=== PATIENT | male | born 1990 | race American Indian/Alaskan Native ===

== ENCOUNTER 2020-01-11 06:59 | Emergency (ER) | payer SELFPAY ==
[2020-01-11 08:25] LABS: Basophils % (Auto) 0.6 % (0.0-1.8); Eosinophils # (Auto) 0.2 K/mm3 (0.0-0.4); Eosinophils % (Auto) 2.1 % (0.0-4.3); Hematocrit 40.9 % (35.5-45.6); Hemoglobin 13.4 gm/dl (11.8-15.2); Lymphocytes # (Auto) 2.5 K/mm3 (1.2-5.4); Lymphocytes % (Auto) 29.8 % (13.4-35.0); Mean Corpuscular HGB Conc 33 % (32-34); Mean Corpuscular Volume 90 fl (84-94); Monocytes # (Auto) 0.5 K/mm3 (0.0-0.8); Monocytes % (Auto) 6.3 % (0.0-7.3); Platelet Count 257 K/mm3 (140-440); Red Blood Count 4.56 M/mm3 (3.65-5.03); Red Cell Distribution Width 13.9 % (13.2-15.2)
[2020-01-11 08:49] LABS: Alanine Aminotransferase 20 units/L (7-56); Albumin 4.7 g/dL (3.9-5); BUN/Creatinine Ratio 17; Blood Urea Nitrogen 17 mg/dL (9-20); Calcium 9.7 mg/dL (8.4-10.2); Hemolysis Index 8
[2020-01-11 10:00] VITALS: BP 133/84
[2020-01-11] MEDS ORDERED: ACETAMINOPHEN 325 MG TAB PO ONE (10:02)
--- NOTE | 2020-01-11 10:11 | Emergency Department Report ---
ED General Adult HPI - General Chief complaint: Headache Stated complaint: SEVERE HEADACHES Time Seen by Provider: 01/11/20 08:50 Source: patient Mode of arrival: Ambulatory Limitations: No Limitations - History of Present Illness Initial comments: 29-year-old -[place] male patient presents with complaints of headache starting this morning. Patient reports that he has had 2 similar headaches that occur only upon waking and resolve throughout the day without treatment. He rates his current headache as a 3/10 in severity. He denies any head traumas, vision changes, photophobia, nausea/vomiting, dizziness, numbness/tingling/weakness in his limbs, difficulty with speech, confusion, or memory loss. Patient also denies any prior medical history. Blood pressure is noted to be elevated, however patient denies any known history of hypertension. - Related Data Previous Rx's Medication Instructions Recorded Last Taken Type Sulfamethoxazole/Trimethoprim 1 each PO BID #14 tablet 03/14/16 Unknown Rx [Bactrim DS TAB] Clotrimazole/Betamethasone 1 applicatio TP BID #1 tube 03/15/16 Unknown Rx Acetaminophen [Tylenol] 650 mg PO Q6H PRN #20 capsule 01/11/20 Unknown Rx Allergies Allergy/AdvReac Type Severity Reaction Status Date / Time No Known Allergies Allergy Verified 03/14/16 21:23 ED Review of Systems ROS: Stated complaint: SEVERE HEADACHES Other details as noted in HPI Constitutional: denies: chills, fever Eyes: denies: vision change Respiratory: denies: cough, shortness of breath Cardiovascular: denies: chest pain Gastrointestinal: denies: nausea, vomiting Musculoskeletal: denies: back pain Neurological: headache. denies: weakness, numbness, paresthesias, confusion, abnormal gait, vertigo Hematological/Lymphatic: denies: swollen glands ED Past Medical Hx - Past Medical History Previous Medical History?: No - Surgical History Past Surgical History?: No - Social History Smoking Status: Never Smoker - Medications Home Medications: Home Medications Medication Instructions Recorded Confirmed Last Taken Type Sulfamethoxazole/Trimethoprim 1 each PO BID #14 tablet 03/14/16 Unknown Rx [Bactrim DS TAB] Clotrimazole/Betamethasone 1 applicatio TP BID #1 tube 03/15/16 Unknown Rx Acetaminophen [Tylenol] 650 mg PO Q6H PRN #20 capsule 01/11/20 Unknown Rx ED Physical Exam - General Limitations: No Limitations General appearance: alert, in no apparent distress, obese - Head Head exam: Present: atraumatic, normocephalic - Eye Eye exam: Present: normal appearance, PERRL, EOMI. Absent: scleral icterus - ENT ENT exam: Present: mucous membranes moist - Neck Neck exam: Present: normal inspection, full ROM - Respiratory Respiratory exam: Present: normal lung sounds bilaterally. Absent: respiratory distress - Cardiovascular Cardiovascular Exam: Present: regular rate, normal rhythm. Absent: systolic murmur, diastolic murmur, rubs, gallop - Extremities Exam Extremities exam: Present: normal inspection, full ROM - Back Exam Back exam: Present: normal inspection - Neurological Exam Neurological exam: Present: alert, oriented X3, normal gait. Absent: motor sensory deficit - Expanded Neurological Exam Expanded Cerebellar function: Finger to Nose: Normal, Heel to Olea: Normal, Romberg: Normal Sensory exam: Upper Extremity Light Touch: Normal, Lower Extremity Light Touch: Normal Motor strength exam: RUE: 5, LUE: 5, RLE: 5, LLE: 5 - Psychiatric Psychiatric exam: Present: normal affect, normal mood - Skin Skin exam: Present: warm, dry, intact, normal color. Absent: rash ED Course Vital Signs 01/11/20 01/11/20 07:23 09:59 Temperature 98.2 F Pulse Rate 84 Respiratory 18 Rate Blood Pressure 150/89 Blood Pressure 133/84 [Right] O2 Sat by Pulse 95 Oximetry ED Medical Decision Making - Lab Data Result diagrams: 01/11/20 08:13 01/11/20 08:13 Lab Results 01/11/20 01/11/20 Range/Units 08:13 08:13 WBC 8.4 (4.5-11.0) K/mm3 RBC 4.56 (3.65-5.03) M/mm3 Hgb 13.4 (11.8-15.2) gm/dl Hct 40.9 (35.5-45.6) % MCV 90 (84-94) fl MCH 29 (28-32) pg MCHC 33 (32-34) % RDW 13.9 (13.2-15.2) % Plt Count 257 (140-440) K/mm3 Lymph % (Auto) 29.8 (13.4-35.0) % [place] % (Auto) 6.3 (0.0-7.3) % Eos % (Auto) 2.1 (0.0-4.3) % Baso % (Auto) 0.6 (0.0-1.8) % Lymph # 2.5 (1.2-5.4) K/mm3 [place] # 0.5 (0.0-0.8) K/mm3 Eos # 0.2 (0.0-0.4) K/mm3 Baso # 0.0 (0.0-0.1) K/mm3 Seg Neutrophils % 61.2 (40.0-70.0) % Seg Neutrophils # 5.2 (1.8-7.7) K/mm3 Sodium 142 (137-145) mmol/L Potassium 4.5 (3.6-5.0) mmol/L Chloride 105.7 (98-107) mmol/L Carbon Dioxide 26 (22-30) mmol/L Anion Gap 15 mmol/L BUN 17 (9-20) mg/dL Creatinine 1.0 (0.8-1.3) mg/dL Estimated GFR > 60 ml/min BUN/Creatinine Ratio 17 % Glucose 127 H (75-100) mg/dL Calcium 9.7 (8.4-10.2) mg/dL Total Bilirubin 0.30 (0.1-1.2) mg/dL AST 19 (5-40) units/L ALT 20 (7-56) units/L Alkaline Phosphatase 69 (35-129) units/L Total Protein 8.0 (6.3-8.2) g/dL Albumin 4.7 (3.9-5) g/dL Albumin/Globulin Ratio 1.4 % - Medical Decision Making Patient here with acute headache this morning. Patient was concerned due to having intermittent headaches this month and denies previous history of headaches or migraines. He denies any red flag symptoms and his neuro exam is normal. CBC and CMP are normal. Blood pressure mildly elevated, patient states he has family history of hypertension. Current headache is a 3/10 in severity. Tylenol given. He is well-appearing and stable for discharge home. Recommend follow-up with primary care in 2 days for blood pressure recheck and further evaluation. Strict return precautions were discussed in detail with patient who verbalized understanding. Critical care attestation.: If time is entered above; I have spent that time in minutes in the direct care of this critically ill patient, excluding procedure time. ED Disposition Clinical Impression: Intermittent headache, Elevated blood pressure reading Disposition: TO HOME OR SELFCARE Is pt being admited?: No Condition: Stable Instructions: Acute Headache (ED) Prescriptions: Acetaminophen [Tylenol] 650 mg PO Q6H PRN #20 capsule PRN Reason: Headache Referrals: [facility] [Provider Group] - 3-5 Days
== END 2020-01-11 10:26 | disposition home or self-care (01) ==
LOC: ED 06:59
DX: R03.0 Elevated blood-pressure reading, without diagnosis of hypertension (principal); R51 Headache; Z79.899 Other long term (current) drug therapy
CPT/HCPCS: 36415; 80053; 85025

== ENCOUNTER 2020-08-10 08:03 | Inpatient (IN) | payer OTHER, SELFPAY ==
[2020-08-10] MEDS ORDERED: SODIUM CHLORIDE 0.9% 500 ML 500 ML IV ONE (08:14)
[2020-08-10] MEDS ORDERED: SODIUM CHLORIDE 0.9% 1000 ML 1,000 ML IV ONE (08:45)
--- NOTE | 2020-08-10 08:45 | XRay Report ---
CHEST 1 VIEW 08/10/2020 8:15 AM INDICATION / CLINICAL INFORMATION: possible Sepsis. COMPARISON: None available. FINDINGS: SUPPORT DEVICES: None. HEART / MEDIASTINUM: No significant abnormality. LUNGS / PLEURA: There are patchy bilateral pulmonary opacities. No pneumothorax. ADDITIONAL FINDINGS: No significant additional findings. IMPRESSION: 1. Patchy bilateral pulmonary opacities likely reflecting multifocal pneumonia. Viral pneumonia would be a possibility. Signer Name: Babak Singer MD Signed: 08/10/2020 8:40 AM Workstation Name: [email or web address]
[2020-08-10] MEDS ORDERED: KETOROLAC 30 MG/1 ML INJ IV ONE (08:46)
--- NOTE | 2020-08-10 08:47 | Emergency Department Report ---
ED General Adult HPI - General Chief complaint: Headache Stated complaint: TENSION HEADACHE Time Seen by Provider: 08/10/20 08:44 Source: patient Mode of arrival: Ambulatory Limitations: No Limitations - History of Present Illness Initial comments: Patient is a 22-year-old male presents emergency department for evaluation of intermittent mild dull frontal headache x3 days. Patient presents hypoxic, denies shortness of breath or cough. Patient denies history of asthma or COPD, denies smoking history. Patient denies abdominal pain, denies nausea vomiting diarrhea, denies chest pain, denies dysuria, denies rash. Patient denies neck pain or stiffness. - Related Data Previous Rx's Medication Instructions Recorded Last Taken Type Azithromycin [Zithromax TAB] 250 mg PO DAILY 4 Days #4 tab 08/10/20 Unknown Rx Cholecalciferol (Vitamin D3) 5,000 unit PO DAILY #30 capsule 08/10/20 Unknown Rx [Vitamin D3 5,000 UNIT] predniSONE [Deltasone] 40 mg PO QDAY #8 tab 08/10/20 Unknown Rx Allergies Allergy/AdvReac Type Severity Reaction Status Date / Time No Known Allergies Allergy Verified 08/10/20 08:11 ED Review of Systems ROS: Stated complaint: TENSION HEADACHE Other details as noted in HPI Comment: All other systems reviewed and negative ED Past Medical Hx - Past Medical History Previous Medical History?: No - Surgical History Past Surgical History?: No - Social History Smoking Status: Never Smoker Substance Use Type: None - Medications Home Medications: Home Medications Medication Instructions Recorded Confirmed Last Taken Type Azithromycin [Zithromax TAB] 250 mg PO DAILY 4 Days #4 tab 08/10/20 Unknown Rx Cholecalciferol (Vitamin D3) 5,000 unit PO DAILY #30 capsule 08/10/20 Unknown Rx [Vitamin D3 5,000 UNIT] predniSONE [Deltasone] 40 mg PO QDAY #8 tab 08/10/20 Unknown Rx ED Physical Exam - General Limitations: No Limitations General appearance: alert, in no apparent distress - Head Head exam: Present: atraumatic, normocephalic - Eye Eye exam: Present: normal appearance - ENT ENT exam: Present: mucous membranes moist - Neck Neck exam: Present: normal inspection - Respiratory Respiratory exam: Present: wheezes, rhonchi - Cardiovascular Cardiovascular Exam: Present: regular rate, normal rhythm - GI/Abdominal GI/Abdominal exam: Present: soft, normal bowel sounds - Rectal Rectal exam: Present: deferred - Extremities Exam Extremities exam: Present: normal inspection - Back Exam Back exam: Present: normal inspection - Neurological Exam Neurological exam: Present: alert, oriented X3 - Psychiatric Psychiatric exam: Present: normal affect, normal mood - Skin Skin exam: Present: warm, dry, intact, normal color. Absent: rash ED Course Vital Signs 08/10/20 08/10/20 08/10/20 08:14 08:38 08:40 Temperature 103.0 F H 102.9 F H Pulse Rate 110 H 103 H Pulse Rate [ Bilateral Throughout] Respiratory 24 18 Rate Respiratory Rate [Bilateral Throughout] Blood Pressure 142/81 Blood Pressure 106/65 [right arm] O2 Sat by Pulse 82 L 81 L 96 Oximetry 08/10/20 08/10/20 08/10/20 08:46 08:57 09:00 Temperature Pulse Rate 102 H 100 H Pulse Rate [ Bilateral Throughout] Respiratory 12 18 13 Rate Respiratory Rate [Bilateral Throughout] Blood Pressure 106/65 106/65 Blood Pressure [right arm] O2 Sat by Pulse 93 96 96 Oximetry 08/10/20 08/10/20 08/10/20 09:16 09:30 09:46 Temperature Pulse Rate 101 H 98 H 97 H Pulse Rate [ Bilateral Throughout] Respiratory 12 15 14 Rate Respiratory Rate [Bilateral Throughout] Blood Pressure 99/56 106/65 106/65 Blood Pressure [right arm] O2 Sat by Pulse 97 97 97 Oximetry 08/10/20 08/10/20 08/10/20 10:00 10:15 10:16 Temperature 100.2 F H Pulse Rate 97 H 92 H 93 H Pulse Rate [ Bilateral Throughout] Respiratory 16 24 15 Rate Respiratory Rate [Bilateral Throughout] Blood Pressure 106/65 106/65 Blood Pressure 122/80 [right arm] O2 Sat by Pulse 96 97 98 Oximetry 08/10/20 08/10/20 08/10/20 10:30 10:46 11:00 Temperature Pulse Rate 96 H 91 H 96 H Pulse Rate [ Bilateral Throughout] Respiratory 13 32 H 15 Rate Respiratory Rate [Bilateral Throughout] Blood Pressure 99/56 122/80 122/80 Blood Pressure [right arm] O2 Sat by Pulse 96 99 86 Oximetry 08/10/20 08/10/20 11:16 11:29 Temperature Pulse Rate 97 H Pulse Rate [ 89 Bilateral Throughout] Respiratory 25 H Rate Respiratory 22 Rate [Bilateral Throughout] Blood Pressure 106/73 Blood Pressure [right arm] O2 Sat by Pulse 92 Oximetry - Reevaluation(s) Reevaluation #1: 08/10/20 11:47 Patient initially treated with IV normal saline, IV Rocephin, IV azithromycin, IV Toradol, DuoNeb's x3, Solu-Medrol 125 mg IV x1. Following intervention, patient remains hypoxic on room air at around 80%. Patient saturating 95 to 97% on 3 L O2 nasal cannula, admitted. 08/10/20 11:48 ED Medical Decision Making - Lab Data Result diagrams: 08/10/20 08:29 08/10/20 08:29 Labs 08/10/20 08/10/20 08/10/20 08:29 08:29 08:29 WBC 6.2 RBC 4.54 Hgb 13.1 Hct 40.2 MCV 89 MCH 29 MCHC 33 RDW 13.8 Plt Count 181 Lymph % (Auto) 34.6 [place] % (Auto) 8.4 H Eos % (Auto) 0.0 Baso % (Auto) 0.3 Lymph # (Auto) 2.1 [place] # (Auto) 0.5 Eos # (Auto) 0.0 Baso # (Auto) 0.0 Seg Neutrophils % 56.7 Seg Neutrophils # 3.5 PT 12.6 INR 0.96 VBG pH Sodium 138 Potassium 4.6 Chloride 101.6 Carbon Dioxide 28 Anion Gap 13 BUN 18 Creatinine 1.3 Estimated GFR > 60 BUN/Creatinine Ratio 14 Glucose 132 H Lactic Acid Calcium 8.4 Total Bilirubin 0.30 AST 29 ALT 16 Alkaline Phosphatase 53 Total Protein 7.4 Albumin 3.9 Albumin/Globulin Ratio 1.1 08/10/20 08/10/20 08:29 08:29 WBC RBC Hgb Hct MCV MCH MCHC RDW Plt Count Lymph % (Auto) [place] % (Auto) Eos % (Auto) Baso % (Auto) Lymph # (Auto) [place] # (Auto) Eos # (Auto) Baso # (Auto) Seg Neutrophils % Seg Neutrophils # PT INR VBG pH 7.303 L Sodium Potassium Chloride Carbon Dioxide Anion Gap BUN Creatinine Estimated GFR BUN/Creatinine Ratio Glucose Lactic Acid 1.40 Calcium Total Bilirubin AST ALT Alkaline Phosphatase Total Protein Albumin Albumin/Globulin Ratio Vital Signs 08/10/20 08/10/20 08/10/20 08:14 08:38 08:40 Temperature 103.0 F H 102.9 F H Pulse Rate 110 H 103 H Pulse Rate [ Bilateral Throughout] Respiratory 24 18 Rate Respiratory Rate [Bilateral Throughout] Blood Pressure 142/81 Blood Pressure 106/65 [right arm] O2 Sat by Pulse 82 L 81 L 96 Oximetry 08/10/20 08/10/20 08/10/20 08:46 08:57 09:00 Temperature Pulse Rate 102 H 100 H Pulse Rate [ Bilateral Throughout] Respiratory 12 18 13 Rate Respiratory Rate [Bilateral Throughout] Blood Pressure 106/65 106/65 Blood Pressure [right arm] O2 Sat by Pulse 93 96 96 Oximetry 08/10/20 08/10/20 08/10/20 09:16 09:30 09:46 Temperature Pulse Rate 101 H 98 H 97 H Pulse Rate [ Bilateral Throughout] Respiratory 12 15 14 Rate Respiratory Rate [Bilateral Throughout] Blood Pressure 99/56 106/65 106/65 Blood Pressure [right arm] O2 Sat by Pulse 97 97 97 Oximetry 08/10/20 08/10/20 08/10/20 10:00 10:15 10:16 Temperature 100.2 F H Pulse Rate 97 H 92 H 93 H Pulse Rate [ Bilateral Throughout] Respiratory 16 24 15 Rate Respiratory Rate [Bilateral Throughout] Blood Pressure 106/65 106/65 Blood Pressure 122/80 [right arm] O2 Sat by Pulse 96 97 98 Oximetry 08/10/20 08/10/20 08/10/20 10:30 10:46 11:00 Temperature Pulse Rate 96 H 91 H 96 H Pulse Rate [ Bilateral Throughout] Respiratory 13 32 H 15 Rate Respiratory Rate [Bilateral Throughout] Blood Pressure 99/56 122/80 122/80 Blood Pressure [right arm] O2 Sat by Pulse 96 99 86 Oximetry 08/10/20 08/10/20 11:16 11:29 Temperature Pulse Rate 97 H Pulse Rate [ 89 Bilateral Throughout] Respiratory 25 H Rate Respiratory 22 Rate [Bilateral Throughout] Blood Pressure 106/73 Blood Pressure [right arm] O2 Sat by Pulse 92 Oximetry - Radiology Data Radiology results: report reviewed Chest x-ray: Pneumonia per radiology Critical care attestation.: If time is entered above; I have spent that time in minutes in the direct care of this critically ill patient, excluding procedure time. ED Disposition Clinical Impression: Pneumonia Disposition: OP ADMIT IP TO THIS HOSP Is pt being admited?: Yes Condition: Stable Instructions: Bacterial Pneumonia (ED) Additional Instructions: Follow-up with primary care doctor in 1 to 2 days for reevaluation. Please note you may have COVID-19 which is a transmissible disease. Return to the emergency department for shortness of breath or worsening symptoms. Prescriptions: predniSONE [Deltasone] 40 mg PO QDAY #8 tab Cholecalciferol (Vitamin D3) [Vitamin D3 5,000 UNIT] 5,000 unit PO DAILY #30 cap [place] Azithromycin [Zithromax TAB] 250 mg PO DAILY 4 Days #4 tab Referrals: PRIMARY CARE, [Primary Care Provider] - 3-5 Days
[2020-08-10 08:50] LABS: Basophils % (Auto) 0.3 % (0.0-1.8); Hematocrit 40.2 % (35.5-45.6); Hemoglobin 13.1 gm/dl (11.8-15.2); Lymphocytes # (Auto) 2.1 K/mm3 (1.2-5.4); Lymphocytes % (Auto) 34.6 % (13.4-35.0); Mean Corpuscular HGB Conc 33 % (32-34); Mean Corpuscular Volume 89 fl (84-94); Monocytes # (Auto) 0.5 K/mm3 (0.0-0.8); Monocytes % (Auto) 8.4 % (0.0-7.3); Platelet Count 181 K/mm3 (140-440); Red Blood Count 4.54 M/mm3 (3.65-5.03); Red Cell Distribution Width 13.8 % (13.2-15.2)
[2020-08-10 08:59] LABS: INR 0.96 (0.87-1.13)
[2020-08-10 09:48] LABS: Alanine Aminotransferase 16 units/L (7-56); Albumin 3.9 g/dL (3.9-5); BUN/Creatinine Ratio 14; Blood Urea Nitrogen 18 mg/dL (9-20); Calcium 8.4 mg/dL (8.4-10.2); Hemolysis Index 3
[2020-08-10] MEDS ORDERED: AZITHROMYCIN/NS 500 MG/250 ML 500 MG/250 ML BAG IV ONE (09:51)
[2020-08-10] MEDS ORDERED: cefTRIAXone/NS 1 GM/50 ML 1 GM/50 ML BAG IV ONE (09:51)
[2020-08-10] MEDS ORDERED: methylPREDNISolone Sod Succinate 125 MG/2 ML INJ IV ONE (09:53)
[2020-08-10] MEDS: IPRATROPIUM/ALBUTEROL SULFATE 3 ML AMPUL.NEB IH SCH ×3 (10:35→10:42)
--- NOTE | 2020-08-10 11:26 | Electrocardiograph Report ---
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
[2020-08-10] MEDS ORDERED: SODIUM CHLORIDE 0.9% IRR 500 ML BOTTLE IR ONE (11:47)
--- NOTE | 2020-08-10 23:47 | History and Physical Report ---
History of Present Illness Date of examination: 08/10/20 Date of admission: 08/10/20 11:23 Chief complaint: Intermittent headache for 3 days History of present illness: 22-year-old million with morbid obesity weighing about 310 pounds comes in for intermittent frontal headache for 3 days. In the emergency room patient was very hypoxic but denies shortness of breath or cough. No muscle aches. His oxygen levels are mid 80s. Denies smoking. Works in the [employer] is [employer] and is exposed to a lot of many people but wears mask. No anosmia no abuse in. No muscle aches. Only headaches. Work-up in the emergency room bilateral patchy opacities in the lungs and hypoxia-hence being admitted for bilateral pneumonia and possible Covid pneumonia No significant past medical history - Past Medical History Previous Medical History?: No - Surgical History Past Surgical History?: No - Social History Smoking Status: Never Smoker Substance Use Type: None - Medications Home Medications: Home Medications Medication Instructions Recorded Confirmed Last Taken Type Azithromycin [Zithromax TAB] 250 mg PO DAILY 4 Days #4 tab 08/10/20 Unknown Rx Cholecalciferol (Vitamin D3) 5,000 unit PO DAILY #30 capsule 08/10/20 Unknown Rx [Vitamin D3 5,000 UNIT] predniSONE [Deltasone] 40 mg PO QDAY #8 tab 08/10/20 Unknown Rx Review of Systems ROS: Stated complaint: TENSION HEADACHE Other details as noted in HPI Comment: All other systems reviewed and negative Medications and Allergies Allergies Allergy/AdvReac Type Severity Reaction Status Date / Time No Known Allergies Allergy Verified 08/10/20 08:11 Home Medications Medication Instructions Recorded Confirmed Last Taken Type Azithromycin [Zithromax TAB] 250 mg PO DAILY 4 Days #4 tab 08/10/20 Unknown Rx Cholecalciferol (Vitamin D3) 5,000 unit PO DAILY #30 capsule 08/10/20 Unknown Rx [Vitamin D3 5,000 UNIT] predniSONE [Deltasone] 40 mg PO QDAY #8 tab 08/10/20 Unknown Rx Exam - Constitutional Vitals: Temp Pulse Resp BP Pulse Ox 100.1 F H 96 H 20 128/56 82 L 08/10/20 13:51 08/10/20 13:51 08/10/20 18:10 08/10/20 14:40 08/10/20 14:32 General appearance: Present: no acute distress, well-nourished - EENT Eyes: Present: PERRL ENT: hearing intact, clear oral mucosa - Neck Neck: Present: supple, normal ROM - Respiratory Respiratory effort: normal Respiratory: bilateral: CTA, rhonchi (Scattered) - Cardiovascular Heart rate: 78 Rhythm: regular Heart Sounds: Present: S1 & S2. Absent: rub, click - Extremities Extremities: pulses symmetrical, No edema Peripheral Pulses: within normal limits - Abdominal General gastrointestinal: Present: soft, non-tender, non-distended, normal bowel sounds Male genitourinary: Present: normal - Integumentary Integumentary: Present: clear, warm, dry - Musculoskeletal Musculoskeletal: gait normal, strength equal bilaterally - Psychiatric Psychiatric: appropriate mood/affect, intact judgment & insight - Neurologic Neurologic: CNII-XII intact, moves all extremities - Allied Health Allied health notes reviewed: nursing, case management Results - Labs CBC & Chem 7: 08/10/20 08:29 08/10/20 08:29 Labs: Laboratory Last Values WBC 6.2 K/mm3 (4.5-11.0) 08/10/20 08:29 RBC 4.54 M/mm3 (3.65-5.03) 08/10/20 08:29 Hgb 13.1 gm/dl (11.8-15.2) 08/10/20 08:29 Hct 40.2 % (35.5-45.6) 08/10/20 08:29 MCV 89 fl (84-94) 08/10/20 08:29 MCH 29 pg (28-32) 08/10/20 08: MCHC 33 % (32-34) 08/10/20 08:29 RDW 13.8 % (13.2-15.2) 08/10/20 08:29 Plt Count 181 K/mm3 (140-440) 08/10/20 08:29 Lymph % (Auto) 34.6 % (13.4-35.0) 08/10/20 08: [place] % (Auto) 8.4 % (0.0-7.3) H 08/10/20 08:29 Eos % (Auto) 0.0 % (0.0-4.3) 08/10/20 08: Baso % (Auto) 0.3 % (0.0-1.8) 08/10/20 08:29 Lymph # (Auto) 2.1 K/mm3 (1.2-5.4) 08/10/20 08: [place] # (Auto) 0.5 K/mm3 (0.0-0.8) 08/10/20 08:29 Eos # (Auto) 0.0 K/mm3 (0.0-0.4) 08/10/20 08: Baso # (Auto) 0.0 K/mm3 (0.0-0.1) 08/10/20 08:29 Seg Neutrophils % 56.7 % (40.0-70.0) 08/10/20 08: Seg Neutrophils # 3.5 K/mm3 (1.8-7.7) 08/10/20 08: PT 12.6 Sec. (12.2-14.9) 08/10/20 08: INR 0.96 (0.87-1.13) 08/10/20 08:29 VBG pH 7.303 (7.320-7.420) L 08/10/20 08:29 Sodium 138 mmol/L (137-145) 08/10/20 08:29 Potassium 4.6 mmol/L (3.6-5.0) 08/10/20 08:29 Chloride 101.6 mmol/L (98-107) 08/10/20 08: Carbon Dioxide 28 mmol/L (22-30) 08/10/20 08:29 Anion Gap 13 mmol/L 08/10/20 08:29 BUN 18 mg/dL (9-20) 08/10/20 08:29 Creatinine 1.3 mg/dL (0.8-1.3) 08/10/20 08:29 Estimated GFR > 60 ml/min 08/10/20 08:29 BUN/Creatinine Ratio 14 % 08/10/20 08:29 Glucose 132 mg/dL (75-100) H 08/10/20 08:29 Lactic Acid 0.80 mmol/L (0.7-2.0) 08/10/20 11:18 Calcium 8.4 mg/dL (8.4-10.2) 08/10/20 08:29 Total Bilirubin 0.30 mg/dL (0.1-1.2) 08/10/20 08:29 AST 29 units/L (5-40) 08/10/20 08:29 ALT 16 units/L (7-56) 08/10/20 08:29 Alkaline Phosphatase 53 units/L (35-129) 08/10/20 08:29 Total Protein 7.4 g/dL (6.3-8.2) 08/10/20 08:29 Albumin 3.9 g/dL (3.9-5) 08/10/20 08:29 Albumin/Globulin Ratio 1.1 % 08/10/20 08:29 Short CBC 08/10/20 Range/Units 08:29 WBC 6.2 (4.5-11.0) K/mm3 Hgb 13.1 (11.8-15.2) gm/dl Hct 40.2 (35.5-45.6) % Plt Count 181 (140-440) K/mm3 BMP 08/10/20 08:29 Sodium 138 Potassium 4.6 Chloride 101.6 Carbon Dioxide 28 BUN 18 Creatinine 1.3 Glucose 132 H Calcium 8.4 Liver Function 08/10/20 Range/Units 08:29 Total Bilirubin 0.30 (0.1-1.2) mg/dL AST 29 (5-40) units/L ALT 16 (7-56) units/L Alkaline Phosphatase 53 (35-129) units/L Albumin 3.9 (3.9-5) g/dL Urine 08/10/20 Range/Units Unknown Urine Color Yellow (Yellow) Urine pH 5.0 (5.0-7.0) Ur Specific [place] 1.025 (1.003-1.030) Urine Protein 30 mg/dl (Negative) mg/dL Urine Glucose (UA) 150 (Negative) mg/dL Microbiology: Microbiology 08/10/20 08:29 Peripheral/Venous Blood Culture - Preliminary Culture in Progress 08/10/20 08:29 Peripheral/Venous Blood Culture - Preliminary Culture in Progress - Imaging and Cardiology Chest x-ray: report reviewed Imaging and Cardiology: Chest x-ray Bilateral patchy bilateral pulmonary opacities likely reflecting multifocal pneumonia. Viral pneumonia would be a possibility Gaytan/IV: Voiding Method Toilet Assessment and Plan Advance Directives: Yes (Full code) VTE prophylaxis?: Chemical Plan of care discussed with patient/family: Yes - Patient Problems (1) Acute respiratory failure with hypoxia Current Visit: Yes Status: Acute Plan to address problem: Patient on 3 to 5 L nasal cannula oxygen IV Decadron initiated IV antibiotics initiated Isolation initiated ID consult requested (2) Bilateral pneumonia Current Visit: Yes Status: Acute Plan to address problem: Patient being treated as community-acquired pneumonia for now with IV Zithromax and IV Rocephin (3) Person under investigation for COVID-19 Current Visit: Yes Status: Acute Plan to address problem: Coronavirus PCR in the morning IV Decadron 8 mg every 24 Infectious disease consult Isolation (4) DVT prophylaxis Current Visit: Yes Status: Acute Plan to address problem: On Lovenox 40 mg subcu daily
[2020-08-10] MEDS ORDERED: MORPHINE 2 MG/1 ML INJ IV PRN (23:48)
[2020-08-10] MEDS ORDERED: ONDANSETRON 4 MG/2 ML INJ IV PRN (23:48)
[2020-08-10] MEDS ORDERED: METOCLOPRAMIDE 10 MG/2 ML INJ IV PRN (23:48)
[2020-08-11 05:41] LABS: Bilirubin,Urine Negative (Negative); Blood,Urine Negative (Negative); Color,Urine Yellow (Yellow); Urobilinogen,Urine < 2.0 mg/dL (<2.0)
[2020-08-11 05:42] LABS: Bacteria,Urine 1+ /HPF (Negative)
[2020-08-11 05:43] LABS: Mucus,Urine 3+ /HPF
[2020-08-11 07:56] LABS: Hematocrit 42.1 % (35.5-45.6); Hemoglobin 13.9 gm/dl (11.8-15.2); Lymphocytes % (Auto) 12.5 % (13.4-35.0); Mean Corpuscular HGB Conc 33 % (32-34); Mean Corpuscular Volume 89 fl (84-94); Monocytes % (Auto) 3.2 % (0.0-7.3); Platelet Count 201 K/mm3 (140-440); Red Blood Count 4.73 M/mm3 (3.65-5.03); Red Cell Distribution Width 13.8 % (13.2-15.2)
[2020-08-11 07:57] LABS: Basophils % (Auto) 0.1 % (0.0-1.8); Lymphocytes # (Auto) 1.4 K/mm3 (1.2-5.4); Monocytes # (Auto) 0.3 K/mm3 (0.0-0.8)
[2020-08-11 08:51] LABS: BUN/Creatinine Ratio 17; Blood Urea Nitrogen 17 mg/dL (9-20)
[2020-08-11 08:52] LABS: Alanine Aminotransferase 17 units/L (7-56); Albumin 4.1 g/dL (3.9-5); Calcium 9.2 mg/dL (8.4-10.2); Hemolysis Index 0
--- NOTE | 2020-08-11 09:11 | Progress Note ---
Assessment and Plan Assessment and plan: #Acute hypoxic respiratory failure Continue oxygen supplementation Likely secondary to COVID-19 pneumonia. Awaiting COVID-19 test #COVID-19 PUI COVID-19 test ordered Continue steroids ID consulted #Bilateral pneumonia COVID-19 infection suspected Continue antibiotics #Morbid obesity Diet and exercise advised #DVT prophylaxis-Lovenox History Interval history: 30-year-old male with morbid obesity weighing about 310 pounds comes in for intermittent frontal headache for 3 days. In the emergency room patient was very hypoxic but denies shortness of breath or cough. No muscle aches. His oxygen levels are mid 80s. Denies smoking. Work-up in the emergency room showed bilateral patchy opacities in the lungs and hypoxia-hence he was admitted for bilateral pneumonia and possible Covid pneumonia. No significant past medical history 08/11. Patient seen examined at bedside this morning. Has no complaints. Febrile this a.m.-103 Fahrenheit. On Tylenol as needed. COVID-19 test ordered. Remains on steroids. ID consult if COVID-19 is positive. Hospitalist Physical - Physical exam Narrative exam: VITAL SIGNS: Reviewed. GENERAL: Awake HEAD: No signs of head trauma. EYES: Pupils are equal. Extraocular motions intact. MOUTH: Oropharynx is normal. NECK: No adenopathy, no JVD. CHEST: Chest with diminished breath sounds bilaterally. No wheezes, rales, or rhonchi. CARDIAC: normal S1 and S2, without murmurs, gallops, or rubs. ABDOMEN: Soft, non tender and non distended. No rebound or guarding, and no masses palpated. Bowel Sounds normal. MUSCULOSKELETAL: No edema NEUROLOGIC EXAM: Alert and oriented x3. No focal neurologic deficits SKIN: No obvious lesions - Constitutional Vitals: Temp Pulse Resp BP Pulse Ox 103 F H 87 18 133/74 93 08/11/20 08:55 08/11/20 06:00 08/11/20 06:00 08/11/20 05:14 08/11/20 06:00 Results - Labs CBC & Chem 7: 08/12/20 06:29 08/11/20 19:08 Labs: Laboratory Last Values WBC 10.8 K/mm3 (4.5-11.0) 08/11/20 05:39 RBC 4.73 M/mm3 (3.65-5.03) 08/11/20 05:39 Hgb 13.9 gm/dl (11.8-15.2) 08/11/20 05:39 Hct 42.1 % (35.5-45.6) 08/11/20 05:39 MCV 89 fl (84-94) 08/11/20 05:39 MCH 30 pg (28-32) 08/11/20 05:39 MCHC 33 % (32-34) 08/11/20 05:39 RDW 13.8 % (13.2-15.2) 08/11/20 05:39 Plt Count 201 K/mm3 (140-440) 08/11/20 05:39 Lymph % (Auto) 12.5 % (13.4-35.0) L 08/11/20 05:39 [place] % (Auto) 3.2 % (0.0-7.3) 08/11/20 05:39 Eos % (Auto) 0.0 % (0.0-4.3) 08/11/20 05:39 Baso % (Auto) 0.1 % (0.0-1.8) 08/11/20 05:39 Lymph # (Auto) 1.4 K/mm3 (1.2-5.4) 08/11/20 05:39 [place] # (Auto) 0.3 K/mm3 (0.0-0.8) 08/11/20 05:39 Eos # (Auto) 0.0 K/mm3 (0.0-0.4) 08/11/20 05:39 Baso # (Auto) 0.0 K/mm3 (0.0-0.1) 08/11/20 05:39 Seg Neutrophils % 84.2 % (40.0-70.0) H 08/11/20 05:39 Seg Neutrophils # 9.1 K/mm3 (1.8-7.7) H 08/11/20 05:39 PT 12.6 Sec. (12.2-14.9) 08/10/20 08:29 INR 0.96 (0.87-1.13) 08/10/20 08:29 VBG pH 7.303 (7.320-7.420) L 08/10/20 08:29 Sodium 140 mmol/L (137-145) 08/11/20 05:39 Potassium 4.8 mmol/L (3.6-5.0) 08/11/20 05:39 Chloride 102.3 mmol/L (98-107) 08/11/20 05:39 Carbon Dioxide 30 mmol/L (22-30) 08/11/20 05:39 Anion Gap 12 mmol/L 08/11/20 05:39 BUN 17 mg/dL (9-20) 08/11/20 05:39 Creatinine 1.0 mg/dL (0.8-1.3) 08/11/20 05:39 Estimated GFR > 60 ml/min 08/11/20 05:39 BUN/Creatinine Ratio 17 % 08/11/20 05:39 Glucose 125 mg/dL (75-100) H 08/11/20 05:39 Hemoglobin A1c 6.1 % (4-6) H 08/11/20 05:39 Lactic Acid 0.80 mmol/L (0.7-2.0) 08/10/20 11:18 Calcium 9.2 mg/dL (8.4-10.2) 08/11/20 05:39 Total Bilirubin 0.40 mg/dL (0.1-1.2) 08/11/20 05:39 AST 29 units/L (5-40) 08/11/20 05:39 ALT 17 units/L (7-56) 08/11/20 05:39 Alkaline Phosphatase 54 units/L (35-129) 08/11/20 05:39 Total Protein 7.9 g/dL (6.3-8.2) 08/11/20 05:39 Albumin 4.1 g/dL (3.9-5) 08/11/20 05:39 Albumin/Globulin Ratio 1.1 % 08/11/20 05:39 Urine Color Yellow (Yellow) 08/10/20 Unknown Urine Turbidity Cloudy (Clear) 08/10/20 Unknown Urine pH 5.0 (5.0-7.0) 08/10/20 Unknown Ur Specific [place] 1.025 (1.003-1.030) 08/10/20 Unknown Urine Protein 30 mg/dl mg/dL (Negative) 08/10/20 Unknown Urine Glucose (UA) 150 mg/dL (Negative) 08/10/20 Unknown Urine Ketones Negative mg/dL (Negative) 08/10/20 Unknown Urine Blood Negative (Negative) 08/10/20 Unknown Urine Nitrite Negative (Negative) 08/10/20 Unknown Urine Bilirubin Negative (Negative) 08/10/20 Unknown Urine Urobilinogen < 2.0 mg/dL (<2.0) 08/10/20 Unknown Ur Leukocyte Esterase Negative (Negative) 08/10/20 Unknown Urine WBC (Auto) 5.0 /HPF (0.0-6.0) 08/10/20 Unknown Urine RBC (Auto) 2.0 /HPF (0.0-6.0) 08/10/20 Unknown U Epithel Cells (Auto) 1.0 /HPF (0-13.0) 08/10/20 Unknown Urine Bacteria (Auto) 1+ /HPF (Negative) 08/10/20 Unknown Urine Mucus 3+ /HPF 08/10/20 Unknown Microbiology: Microbiology 08/10/20 08:29 Peripheral/Venous Blood Culture - Preliminary Culture in Progress 08/10/20 08:29 Peripheral/Venous Blood Culture - Preliminary Culture in Progress Gaytan/IV: Voiding Method Toilet Active Medications - Current Medications Current Medications: Generic Name Dose Route Start Last Admin Trade Name Freq PRN Reason Stop Dose Admin Acetaminophen 650 mg 08/10/20 23:48 Acetaminophen 325 Mg Tab PO Q4H PRN Pain MILD(1-3)/Fever >100.5/MARTINEZ Dexamethasone 8 mg 08/11/20 10:00 Dexamethasone 4 Mg/Ml Vial IV Q24HR [facility] Famotidine 20 mg 08/11/20 10:00 Famotidine 20 Mg/2 Ml Inj IV BID [facility] Azithromycin 500 mg in 250 mls @ 250 mls/hr 08/11/20 10:00 Zithromax/Ns IV Q24HR [facility] Ceftriaxone Sodium 2 gm in 100 mls @ 200 mls/hr 08/11/20 10:00 Rocephin/Ns 2 Gm/100 Ml IV Q24HR [facility] Protocol Metoclopramide HCl 10 mg 08/10/20 23:48 Metoclopramide 10 Mg/2 Ml Inj IV Q6H PRN Nausea And Vomiting Morphine Sulfate 2 mg 08/10/20 23:48 Morphine 2 Mg/1 Ml Inj IV Q4H PRN Pain, Moderate (4-6) Ondansetron HCl 4 mg 08/10/20 23:48 Ondansetron 4 Mg/2 Ml Inj IV Q8H PRN Nausea And Vomiting Oxycodone/Acetaminophen 1 tab 08/10/20 23:48 Oxycodone /Acetaminophen 5-325mg Tab PO Q6H PRN Pain, Moderate (4-6) Sodium Chloride 10 ml 08/11/20 10:00 Sodium Chloride 0.9% 10 Ml Flush Syringe IV BID MELANIE Sodium Chloride 10 ml 08/10/20 23:48 Sodium Chloride 0.9% 10 Ml Flush Syringe IV PRN PRN LINE FLUSH
[2020-08-11] MEDS: cefTRIAXone/NS 2 GM/100 ML 2 GM/100 ML BAG IV SCH (09:12)
[2020-08-11] MEDS: FAMOTIDINE 20 MG/2 ML INJ IV SCH ×2 (09:12→21:31)
[2020-08-11] MEDS: ACETAMINOPHEN 325 MG TAB PO PRN ×2 (09:12→12:49)
[2020-08-11] MEDS: AZITHROMYCIN/NS 500 MG/250 ML 500 MG/250 ML BAG IV SCH (09:12)
[2020-08-11] MEDS ORDERED: dexAMETHasone 4 MG/ML VIAL IV SCH (10:00)
--- NOTE | 2020-08-11 13:51 | Consultation ---
History of Present Illness - Reason for Consult Consult date: 08/11/20 Rule out Covid 19 Requesting physician: JUANITA BOWENS - History of Present Illness 30 years old male with history of morbid obesity, admitted on 08/10/2020 secondary to 3-day history of intermittent frontal headache. Patient denies any cough, shortness of breath, body aches, loss of sense of taste. He works in [employer] and is exposed to many people. On arrival, temperature 103, HR 110, RR 24, O2 sat 82%, BP 142/81. Initial WBC normal. Creatinine 1.3. Urinalysis negative. Blood cultures 08/10/2020 no growth today. Chest x-ray shows patchy bilateral opacities. Review of Systems: reviewed ED and H&P notes. Review of system deferred to minimize COVID-19 transmission. Medications and Allergies Allergies Allergy/AdvReac Type Severity Reaction Status Date / Time No Known Allergies Allergy Verified 08/10/20 08:11 Home Medications Medication Instructions Recorded Confirmed Last Taken Type Azithromycin [Zithromax TAB] 250 mg PO DAILY 4 Days #4 tab 08/10/20 Unknown Rx Cholecalciferol (Vitamin D3) 5,000 unit PO DAILY #30 capsule 08/10/20 Unknown Rx [Vitamin D3 5,000 UNIT] predniSONE [Deltasone] 40 mg PO QDAY #8 tab 08/10/20 Unknown Rx Active Meds: Active Medications Acetaminophen (Acetaminophen 325 Mg Tab) 650 mg PO Q4H PRN PRN Reason: Pain MILD(1-3)/Fever >100.5/MARTINEZ Last Admin: 08/11/20 12:49 Dose: 650 mg Documented by: Dexamethasone (Dexamethasone 4 Mg/Ml Vial) 8 mg IV Q24HR MELANIE Last Admin: 08/11/20 09:12 Dose: 8 mg Documented by: Famotidine (Famotidine 20 Mg/2 Ml Inj) 20 mg IV BID MELANIE Last Admin: 08/11/20 09:12 Dose: 20 mg Documented by: Azithromycin (Zithromax/Ns) 500 mg in 250 mls @ 250 mls/hr IV Q24HR MELANIE Last Admin: 08/11/20 09:12 Dose: 250 mls/hr Documented by: Ceftriaxone Sodium (Rocephin/Ns 2 Gm/100 Ml) 2 gm in 100 mls @ 200 mls/hr IV Q24HR MELANIE; Protocol Last Admin: 08/11/20 09:12 Dose: 200 mls/hr Documented by: Metoclopramide HCl (Metoclopramide 10 Mg/2 Ml Inj) 10 mg IV Q6H PRN PRN Reason: Nausea And Vomiting Morphine Sulfate (Morphine 2 Mg/1 Ml Inj) 2 mg IV Q4H PRN PRN Reason: Pain, Moderate (4-6) Ondansetron HCl (Ondansetron 4 Mg/2 Ml Inj) 4 mg IV Q8H PRN PRN Reason: Nausea And Vomiting Oxycodone/Acetaminophen (Oxycodone /Acetaminophen 5-325mg Tab) 1 tab PO Q6H PRN PRN Reason: Pain, Moderate (4-6) Sodium Chloride (Sodium Chloride 0.9% 10 Ml Flush Syringe) 10 ml IV BID [facility] Last Admin: 08/11/20 09:13 Dose: 10 ml Documented by: Sodium Chloride (Sodium Chloride 0.9% 10 Ml Flush Syringe) 10 ml IV PRN PRN PRN Reason: LINE FLUSH Physical Examination - Physical Exam Narrative exam: Physical exam deferred to minimize COVID-19 transmission during pandemic. ER and internal medicine physical examination notes reviewed. - Constitutional Vitals: Vital Signs Temp Pulse Resp BP Pulse Ox 102.5 F H 108 H 20 104/57 91 08/11/20 12:21 08/11/20 12:21 08/11/20 12:21 08/11/20 12:21 08/11/20 12:21 Temperature -Last 24 Hours Temperature 102.5 F Temperature 103 F Temperature 99.9 F Temperature 98.7 F Temperature 98.3 F Results - Labs CBC & Chem 7: 08/11/20 05:39 08/11/20 05:39 Labs: Abnormal lab results 08/11/20 08/11/20 08/11/20 Range/Units 05:39 05:39 05:39 Lymph % (Auto) 12.5 L (13.4-35.0) % Seg Neutrophils % 84.2 H (40.0-70.0) % Seg Neutrophils # 9.1 H (1.8-7.7) K/mm3 Glucose 125 H (75-100) mg/dL Hemoglobin A1c 6.1 H (4-6) % Assessment and Plan Cultures: Blood culture 08/10/2020 pending SARS CoV2 PCR pending Assessment: 30 years old male with history of morbid obesity, admitted on 08/10/2020 secondary to 3-day history of intermittent frontal headache: #Bilateral pneumonia: High suspicion for COVID-19 due to severe hypoxia. Chest x-ray shows bilateral patchy opacities. Covid inflammatory markers not available. #Acute hypoxemic respiratory failure: Initial O2 sat down to 82%, currently on 6 L nasal cannula. #LONNY: Initial creatinine 1.2, improving. #Morbid obesity: Associated with worse outcomes Recommendations: -Continue dexamethasone for 10 days -Follow-up SARS-CoV-2 PCR -If SARS-CoV-2 PCR is positive start Remdesivir for 5 days (CrCl>30 mg/mL) -Monitor inflammatory markers - ferritin, Ddimer, CRP, LDH, ordered -Continue anticoagulation per System Protocol -Prone positioning as possible -Continue ceftriaxone and azithromycin, for now until procalcitonin if it is <0.25 ng/mL will stop antibiotics Close monitoring, risk for decompensation requiring intubation All laboratory, cultures and imaging were reviewed. Discussed with attending. Will follow Jaylyn Doe MD Infectious Diseases [facility] M [phone] O [phone]
[2020-08-11 19:59] LABS: Alanine Aminotransferase 21 units/L (7-56); BUN/Creatinine Ratio 19; Blood Urea Nitrogen 19 mg/dL (9-20); Calcium 8.4 mg/dL (8.4-10.2); Hemolysis Index 47
[2020-08-11 20:11] LABS: C-Reactive Protein 11.3 mg/dL (0.00-1.30)
[2020-08-11] MEDS ORDERED: REMDESIVIR 100 MG VIAL IV ONE (21:03)
[2020-08-11] MEDS ORDERED: REMDESIVIR 200 MG in SODIUM CHLORIDE 0.9% 250ML 250 ML IV ONE (21:03)
[2020-08-11] MEDS: SODIUM CHLORIDE 0.9% 50 ML IVPB IV SCH (21:31)
[2020-08-12] MEDS: ACETAMINOPHEN 325 MG TAB PO PRN ×3 (02:55→22:41)
[2020-08-12 08:03] LABS: Basophils % (Auto) 0.2 % (0.0-1.8); Hematocrit 36.5 % (35.5-45.6); Hemoglobin 11.8 gm/dl (11.8-15.2); Lymphocytes % (Auto) 8.6 % (13.4-35.0); Mean Corpuscular HGB Conc 33 % (32-34); Mean Corpuscular Volume 88 fl (84-94); Monocytes # (Auto) 0.3 K/mm3 (0.0-0.8); Monocytes % (Auto) 2.9 % (0.0-7.3); Platelet Count 214 K/mm3 (140-440); Red Blood Count 4.12 M/mm3 (3.65-5.03)
[2020-08-12 08:20] LABS: Alanine Aminotransferase 19 units/L (7-56); Albumin 3.7 g/dL (3.9-5); BUN/Creatinine Ratio 17; Blood Urea Nitrogen 19 mg/dL (9-20); Calcium 8.6 mg/dL (8.4-10.2); Hemolysis Index 0
[2020-08-12] MEDS ORDERED: FUROSEMIDE 40 MG/4 ML INJ IV ONE (08:40)
--- NOTE | 2020-08-12 09:23 | XRay Report ---
CHEST 1 VIEW 08/12/2020 8:16 AM INDICATION / CLINICAL INFORMATION: Hypoxia with increased oxygen requirement. COMPARISON: 08/10/20 FINDINGS: SUPPORT DEVICES: None. HEART / MEDIASTINUM: Stable. LUNGS / PLEURA: Interval worsening of patchy bilateral pulmonary opacities. No pneumothorax. ADDITIONAL FINDINGS: No significant additional findings. IMPRESSION: 1. Interval worsening. Signer Name: Charlie Cohen MD Signed: 08/12/2020 9:19 AM Workstation Name: [email or web address]
--- NOTE | 2020-08-12 09:25 | Progress Note ---
Assessment and Plan Assessment and plan: #Acute hypoxic respiratory failure secondary to COVID-19 PNA Continue oxygen supplementation. Now on 10 L #COVID-19 Pneumonia Continue antibiotics Continue steroids Remdesivir Oxygen supplementation Trend inflammatory markers Prone positioning advised Incentive spirometer ID on board Pulmonology consulted #Morbid obesity Diet and exercise advised #DVT prophylaxis-Lovenox History Interval history: 30-year-old male with morbid obesity weighing about 310 pounds comes in for intermittent frontal headache for 3 days. In the emergency room patient was ve ry hypoxic but denies shortness of breath or cough. No muscle aches. His oxygen levels are mid 80s. Denies smoking. Work-up in the emergency room showed bilateral patchy opacities in the lungs and hypoxia-hence he was admitted for bilateral pneumonia and possible Covid pneumonia. No significant past medical history 08/11. Patient seen examined at bedside this morning. Has no complaints. Jun this a.m.-103 Fahrenheit. On Tylenol as needed. COVID-19 test ordered. Remains on steroids. ID consult if COVID-19 is positive. 08/12. His COVID-19 test is positive. He was started on remdesivir last night. Oxygen requirement increased overnight. Inflammatory markers increasing. Repeat chest xray shows worsening infiltrates. Ordered BNP. Lasix 40mg IV ordered. Increased dexamethasone to 6mg BID. Pulmonology consulted. Will place on continuous pulse oximetry. Incentive spirometer ordered. Advised prone positioning. Hospitalist Physical - Physical exam Narrative exam: VITAL SIGNS: Reviewed. GENERAL: Awake HEAD: No signs of head trauma. EYES: Pupils are equal. Extraocular motions intact. MOUTH: Oropharynx is normal. NECK: No adenopathy, no JVD. CHEST: Chest with diminished breath sounds bilaterally with rales CARDIAC: normal S1 and S2, without murmurs, gallops, or rubs. ABDOMEN: Soft, non tender and non distended. No rebound or guarding, and no masses palpated. Bowel Sounds normal. MUSCULOSKELETAL: No edema NEUROLOGIC EXAM: Alert and oriented x3. No focal neurologic deficits SKIN: No obvious lesions - Constitutional Vitals: Temp Pulse Resp BP Pulse Ox 102.8 F H 91 H 20 105/30 88 08/12/20 05:49 08/12/20 05:49 08/12/20 05:49 08/12/20 05:49 08/12/20 05:49 Results - Labs CBC & Chem 7: 08/12/20 06:29 08/12/20 06:29 Labs: Laboratory Last Values WBC 11.2 K/mm3 (4.5-11.0) H 08/12/20 06:29 RBC 4.12 M/mm3 (3.65-5.03) 08/12/20 06:29 Hgb 11.8 gm/dl (11.8-15.2) 08/12/20 06:29 Hct 36.5 % (35.5-45.6) 08/12/20 06:29 MCV 88 fl (84-94) 08/12/20 06: MCH 29 pg (28-32) 08/12/20 06: MCHC 33 % (32-34) 08/12/20 06:29 RDW 14.0 % (13.2-15.2) 08/12/20 06:29 Plt Count 214 K/mm3 (140-440) 08/12/20 06:29 Lymph % (Auto) 8.6 % (13.4-35.0) L 08/12/20 06:29 [place] % (Auto) 2.9 % (0.0-7.3) 08/12/20 06: Eos % (Auto) 0.0 % (0.0-4.3) 08/12/20 06: Baso % (Auto) 0.2 % (0.0-1.8) 08/12/20 06: Lymph # (Auto) 1.0 K/mm3 (1.2-5.4) L 08/12/20 06:29 [place] # (Auto) 0.3 K/mm3 (0.0-0.8) 08/12/20 06:29 Eos # (Auto) 0.0 K/mm3 (0.0-0.4) 08/12/20 06:29 Baso # (Auto) 0.0 K/mm3 (0.0-0.1) 08/12/20 06:29 Seg Neutrophils % 88.3 % (40.0-70.0) H 08/12/20 06: Seg Neutrophils # 9.8 K/mm3 (1.8-7.7) H 08/12/20 06:29 PT 12.6 Sec. (12.2-14.9) 08/10/20 08:29 INR 0.96 (0.87-1.13) 08/10/20 08:29 D-Dimer 830.34 ng/mlDDU (0-234) H 08/12/20 06:29 VBG pH 7.303 (7.320-7.420) L 08/10/20 08:29 Sodium 139 mmol/L (137-145) 08/12/20 06:29 Potassium 4.7 mmol/L (3.6-5.0) 08/12/20 06:29 Chloride 100.6 mmol/L (98-107) 08/12/20 06:29 Carbon Dioxide 31 mmol/L (22-30) H 08/12/20 06:29 Anion Gap 12 mmol/L 08/12/20 06:29 BUN 19 mg/dL (9-20) 08/12/20 06:29 Creatinine 1.1 mg/dL (0.8-1.3) 08/12/20 06:29 Estimated GFR > 60 ml/min 08/12/20 06:29 BUN/Creatinine Ratio 17 % 08/12/20 06:29 Glucose 138 mg/dL (75-100) H 08/12/20 06:29 Hemoglobin A1c 6.1 % (4-6) H 08/11/20 05:39 Lactic Acid 0.80 mmol/L (0.7-2.0) 08/10/20 11:18 Calcium 8.6 mg/dL (8.4-10.2) 08/12/20 06:29 Ferritin 572.6 ng/mL (30.0-300.0) H 08/12/20 06:29 Total Bilirubin 0.50 mg/dL (0.1-1.2) 08/12/20 06:29 AST 42 units/L (5-40) H 08/12/20 06:29 ALT 19 units/L (7-56) 08/12/20 06:29 Alkaline Phosphatase 48 units/L (35-129) 08/12/20 06:29 Lactate Dehydrogenase 706 units/L (91-180) H 08/12/20 06:29 C-Reactive Protein 17.30 mg/dL (0.00-1.30) H 08/12/20 06:29 Total Protein 7.1 g/dL (6.3-8.2) 08/12/20 06:29 Albumin 3.7 g/dL (3.9-5) L 08/12/20 06:29 Albumin/Globulin Ratio 1.1 % 08/12/20 06:29 Urine Color Yellow (Yellow) 08/10/20 Unknown Urine Turbidity Cloudy (Clear) 08/10/20 Unknown Urine pH 5.0 (5.0-7.0) 08/10/20 Unknown Ur Specific [place] 1.025 (1.003-1.030) 08/10/20 Unknown Urine Protein 30 mg/dl mg/dL (Negative) 08/10/20 Unknown Urine Glucose (UA) 150 mg/dL (Negative) 08/10/20 Unknown Urine Ketones Negative mg/dL (Negative) 08/10/20 Unknown Urine Blood Negative (Negative) 08/10/20 Unknown Urine Nitrite Negative (Negative) 08/10/20 Unknown Urine Bilirubin Negative (Negative) 08/10/20 Unknown Urine Urobilinogen < 2.0 mg/dL (<2.0) 08/10/20 Unknown Ur Leukocyte Esterase Negative (Negative) 08/10/20 Unknown Urine WBC (Auto) 5.0 /HPF (0.0-6.0) 08/10/20 Unknown Urine RBC (Auto) 2.0 /HPF (0.0-6.0) 08/10/20 Unknown U Epithel Cells (Auto) 1.0 /HPF (0-13.0) 08/10/20 Unknown Urine Bacteria (Auto) 1+ /HPF (Negative) 08/10/20 Unknown Urine Mucus 3+ /HPF 08/10/20 Unknown Coronavirus (PCR) Positive (Negative) A 08/11/20 Unknown Microbiology: Microbiology 08/10/20 08:29 Peripheral/Venous Blood Culture - Preliminary NO GROWTH AFTER 24 HOURS 08/10/20 08:29 Peripheral/Venous Blood Culture - Preliminary NO GROWTH AFTER 24 HOURS Gaytan/IV: Voiding Method Toilet Active Medications - Current Medications Current Medications: Generic Name Dose Route Start Last Admin Trade Name Freq PRN Reason Stop Dose Admin Acetaminophen 650 mg 08/10/20 23:48 08/12/20 06:50 Acetaminophen 325 Mg Tab PO 650 mg Q4H PRN Administration Pain MILD(1-3)/Fever >100.5/MARTINEZ Ascorbic Acid 500 mg 08/12/20 10:00 Ascorbic Acid 500 Mg Tab PO BID [facility] Dexamethasone 6 mg 08/12/20 10:00 Dexamethasone 4 Mg/Ml Vial IV Q12HR [facility] Famotidine 20 mg 08/11/20 10:00 08/11/20 21:31 Famotidine 20 Mg/2 Ml Inj IV 20 mg BID MELNAIE Administration Furosemide 40 mg 08/12/20 08:40 Furosemide 40 Mg/4 Ml Inj IV 08/12/20 08:41 ONCE ONE Azithromycin 500 mg in 250 mls @ 250 mls/hr 08/11/20 10:00 08/11/20 09:12 Zithromax/Ns IV 250 mls/hr Q24HR MELANIE Administration Ceftriaxone Sodium 2 gm in 100 mls @ 200 mls/hr 08/11/20 10:00 08/11/20 09:12 Rocephin/Ns 2 Gm/100 Ml IV 200 mls/hr Q24HR MELANIE Administration Protocol REMDESIVIR 100 mg/ Sodium 250 mls @ 500 mls/hr 08/12/20 21:00 Chloride IV 08/15/20 21:29 Q24HR@2100 [facility] Metoclopramide HCl 10 mg 08/10/20 23:48 Metoclopramide 10 Mg/2 Ml Inj IV Q6H PRN Nausea And Vomiting Morphine Sulfate 2 mg 08/10/20 23:48 Morphine 2 Mg/1 Ml Inj IV Q4H PRN Pain, Moderate (4-6) Ondansetron HCl 4 mg 08/10/20 23:48 Ondansetron 4 Mg/2 Ml Inj IV Q8H PRN Nausea And Vomiting Oxycodone/Acetaminophen 1 tab 08/10/20 23:48 Oxycodone /Acetaminophen 5-325mg Tab PO Q6H PRN Pain, Moderate (4-6) Sodium Chloride 10 ml 08/11/20 10:00 08/11/20 21:32 Sodium Chloride 0.9% 10 Ml Flush Syringe IV 10 ml BID MELANIE Administration Sodium Chloride 10 ml 08/10/20 23:48 Sodium Chloride 0.9% 10 Ml Flush Syringe IV PRN PRN LINE FLUSH Sodium Chloride 50 ml 08/11/20 21:00 08/11/20 21:31 Sodium Chloride 0.9% 50 Ml Ivpb IV 08/15/20 21:01 50 ml Q24HR@2100 MELANIE Administration Zinc Sulfate 220 mg 08/12/20 10:00 Zinc Sulfate 220 Mg Cap PO QDAY MELANIE
[2020-08-12] MEDS: AZITHROMYCIN/NS 500 MG/250 ML 500 MG/250 ML BAG IV SCH (09:29)
[2020-08-12] MEDS: FAMOTIDINE 20 MG/2 ML INJ IV SCH ×2 (09:33→22:41)
[2020-08-12] MEDS: cefTRIAXone/NS 2 GM/100 ML 2 GM/100 ML BAG IV SCH (09:33)
[2020-08-12] MEDS: ASCORBIC ACID 500 MG TAB PO SCH ×2 (10:30→22:41)
[2020-08-12] MEDS: dexAMETHasone 4 MG/ML VIAL IV SCH ×2 (10:30→22:41)
[2020-08-12] MEDS: ZINC SULFATE 220 MG CAP PO SCH (10:30)
--- NOTE | 2020-08-12 12:50 | Consultation ---
History of Present Illness Consult date: 08/12/20 Requesting physician: ROSE CASANOVA Reason for consult: hypoxemia, other (COVID 19) History of present illness: 30 y/o morbidly obese male admitted with COVID pneumonia and acute respiratory failure. Patient originally came in for headache. Hypoxemia has gotten worse each day and pulmonary consulted today now that patient on 40 liters and 100%. Steroids increased to BID and lasix was given x1 today. Medications and Allergies Allergies Allergy/AdvReac Type Severity Reaction Status Date / Time No Known Allergies Allergy Verified 08/10/20 08:11 Home Medications Medication Instructions Recorded Confirmed Last Taken Type Azithromycin [Zithromax TAB] 250 mg PO DAILY 4 Days #4 tab 08/10/20 Unknown Rx Cholecalciferol (Vitamin D3) 5,000 unit PO DAILY #30 capsule 08/10/20 Unknown Rx [Vitamin D3 5,000 UNIT] predniSONE [Deltasone] 40 mg PO QDAY #8 tab 08/10/20 Unknown Rx Active Meds: Active Medications Acetaminophen (Acetaminophen 325 Mg Tab) 650 mg PO Q4H PRN PRN Reason: Pain MILD(1-3)/Fever >100.5/MARTINEZ Last Admin: 08/12/20 06:50 Dose: 650 mg Documented by: Ascorbic Acid (Ascorbic Acid 500 Mg Tab) 500 mg PO BID MELANIE Dexamethasone (Dexamethasone 4 Mg/Ml Vial) 6 mg IV Q12HR MELANIE Famotidine (Famotidine 20 Mg/2 Ml Inj) 20 mg IV BID MELANIE Last Admin: 08/12/20 09:33 Dose: 20 mg Documented by: Azithromycin (Zithromax/Ns) 500 mg in 250 mls @ 250 mls/hr IV Q24HR MELANIE Last Admin: 08/12/20 09:29 Dose: 250 mls/hr Documented by: Ceftriaxone Sodium (Rocephin/Ns 2 Gm/100 Ml) 2 gm in 100 mls @ 200 mls/hr IV Q24HR MELANIE; Protocol Last Admin: 08/12/20 09:33 Dose: 200 mls/hr Documented by: REMDESIVIR 100 mg/ Sodium (Chloride) 250 mls @ 500 mls/hr IV Q24HR@2100 MELANIE Stop: 08/15/20 21:29 Metoclopramide HCl (Metoclopramide 10 Mg/2 Ml Inj) 10 mg IV Q6H PRN PRN Reason: Nausea And Vomiting Morphine Sulfate (Morphine 2 Mg/1 Ml Inj) 2 mg IV Q4H PRN PRN Reason: Pain, Moderate (4-6) Ondansetron HCl (Ondansetron 4 Mg/2 Ml Inj) 4 mg IV Q8H PRN PRN Reason: Nausea And Vomiting Oxycodone/Acetaminophen (Oxycodone /Acetaminophen 5-325mg Tab) 1 tab PO Q6H PRN PRN Reason: Pain, Moderate (4-6) Sodium Chloride (Sodium Chloride 0.9% 10 Ml Flush Syringe) 10 ml IV BID [facility] Last Admin: 08/11/20 21:32 Dose: 10 ml Documented by: Sodium Chloride (Sodium Chloride 0.9% 10 Ml Flush Syringe) 10 ml IV PRN PRN PRN Reason: LINE FLUSH Sodium Chloride (Sodium Chloride 0.9% 50 Ml Ivpb) 50 ml IV Q24HR@2100 [facility] Stop: 08/15/20 21:01 Last Admin: 08/11/20 21:31 Dose: 50 ml Documented by: Zinc Sulfate (Zinc Sulfate 220 Mg Cap) 220 mg PO QDAY [facility] Review of Systems All systems: negative Physical Examination Vital signs: Vital Signs Temp Pulse Resp BP Pulse Ox 103.0 F H 110 H 24 142/81 82 L 08/10/20 08:14 08/10/20 08:14 08/10/20 08:14 08/10/20 08:14 08/10/20 08:14 Deferred today. Results - Laboratory Findings CBC and BMP: 08/12/20 06:29 08/12/20 06:29 PT/INR, D-dimer PT 12.6 Sec. (12.2-14.9) 08/10/20 08:29 INR 0.96 (0.87-1.13) 08/10/20 08:29 D-Dimer 830.34 ng/mlDDU (0-234) H 08/12/20 06:29 Abnormal lab findings: Abnormal Labs 08/10/20 08/10/20 08/10/20 08:29 08:29 08:29 WBC Lymph % (Auto) [place] % (Auto) 8.4 H Lymph # (Auto) Seg Neutrophils % Seg Neutrophils # D-Dimer VBG pH 7.303 L Carbon Dioxide Glucose 132 H Hemoglobin A1c Ferritin AST Lactate Dehydrogenase C-Reactive Protein Albumin Coronavirus (PCR) 08/11/20 08/11/20 08/11/20 05:39 05:39 05:39 WBC Lymph % (Auto) 12.5 L [place] % (Auto) Lymph # (Auto) Seg Neutrophils % 84.2 H Seg Neutrophils # 9.1 H D-Dimer VBG pH Carbon Dioxide Glucose 125 H Hemoglobin A1c 6.1 H Ferritin AST Lactate Dehydrogenase C-Reactive Protein Albumin Coronavirus (PCR) 08/11/20 08/11/20 08/11/20 18:58 18:58 18:58 WBC Lymph % (Auto) [place] % (Auto) Lymph # (Auto) Seg Neutrophils % Seg Neutrophils # D-Dimer 464.84 H VBG pH Carbon Dioxide Glucose Hemoglobin A1c Ferritin 528.7 H AST Lactate Dehydrogenase 637 H C-Reactive Protein 11.30 H Albumin Coronavirus (PCR) 08/11/20 08/11/20 08/12/20 19:08 Unknown 06:29 WBC 11.2 H Lymph % (Auto) 8.6 L [place] % (Auto) Lymph # (Auto) 1.0 L Seg Neutrophils % 88.3 H Seg Neutrophils # 9.8 H D-Dimer VBG pH Carbon Dioxide Glucose 161 H Hemoglobin A1c Ferritin AST Lactate Dehydrogenase C-Reactive Protein Albumin Coronavirus (PCR) Positive A 08/12/20 08/12/20 08/12/20 06:29 06:29 06:29 WBC Lymph % (Auto) [place] % (Auto) Lymph # (Auto) Seg Neutrophils % Seg Neutrophils # D-Dimer 830.34 H VBG pH Carbon Dioxide 31 H Glucose 138 H Hemoglobin A1c Ferritin 572.6 H AST 42 H Lactate Dehydrogenase 706 H C-Reactive Protein 17.30 H Albumin 3.7 L Coronavirus (PCR) - Diagnostic Findings Chest x-ray: image reviewed (bilateral alveolar filling, patchy, consistent with COVID 19) Assessment and Plan 30 y/o morbidly obese male with acute respiratory failure secondary to COVID 19 pneumonia. Very very guarded to poor prognosis given CXR appearance, and body habitus, along with rapid decline in self sustaning oxygen levels. Agree with lasix and increase in steroids. Must prone. Very high likelihood for mechanical ventilation which would carry a high mortality for patient. Will continue to follow. No additional IVF's unless indicated.
[2020-08-12 15:49] LABS: ABG Base Excess 2.6 mmol/L (-2.0-3.0); ABG HCO3 31.4 mmol/L (20.0-26.0); ABG Methemoglobin 0.5 % (0.0-1.5); ABG Oxygen Saturation 91.7 % (95.0-99.0); ABG PCO2 62.9 mm Hg; ABG PH 7.315 pH Units (7.350-7.450); ABG PO2 65.8 mm Hg (80.0-90.0)
[2020-08-12] MEDS ORDERED: REMDESIVIR 100 MG in SODIUM CHLORIDE 0.9% 250ML 250 ML IV SCH (21:00)
[2020-08-12] MEDS ORDERED: ZOLPIDEM 5 MG TAB PO ONE (21:30)
[2020-08-12] MEDS: SODIUM CHLORIDE 0.9% 50 ML IVPB IV SCH (21:30)
[2020-08-13 05:55] LABS: Basophils % (Auto) 0.2 % (0.0-1.8); Hematocrit 37.2 % (35.5-45.6); Hemoglobin 12.2 gm/dl (11.8-15.2); Lymphocytes % (Auto) 8.1 % (13.4-35.0); Mean Corpuscular HGB Conc 33 % (32-34); Mean Corpuscular Volume 88 fl (84-94); Monocytes # (Auto) 0.4 K/mm3 (0.0-0.8); Monocytes % (Auto) 3.7 % (0.0-7.3); Platelet Count 198 K/mm3 (140-440); Red Blood Count 4.22 M/mm3 (3.65-5.03); Red Cell Distribution Width 13.9 % (13.2-15.2)
[2020-08-13 06:59] LABS: Alanine Aminotransferase 19 units/L (7-56); Albumin 3.8 g/dL (3.9-5); BUN/Creatinine Ratio 25; Blood Urea Nitrogen 25 mg/dL (9-20); Calcium 8.9 mg/dL (8.4-10.2); Hemolysis Index 17
[2020-08-13] MEDS: ASCORBIC ACID 500 MG TAB PO SCH ×2 (10:42→22:56)
[2020-08-13] MEDS: cefTRIAXone/NS 2 GM/100 ML 2 GM/100 ML BAG IV SCH (10:42)
[2020-08-13] MEDS: dexAMETHasone 4 MG/ML VIAL IV SCH ×2 (10:42→22:55)
[2020-08-13] MEDS: FAMOTIDINE 20 MG/2 ML INJ IV SCH ×2 (10:43→22:56)
[2020-08-13] MEDS: ZINC SULFATE 220 MG CAP PO SCH (10:46)
[2020-08-13] MEDS ORDERED: FUROSEMIDE 20 MG/2 ML INJ IV ONE ×2 (11:00→13:00)
--- NOTE | 2020-08-13 12:21 | Progress Note ---
Assessment and Plan 30 y/o morbidly obese male with acute respiratory failure secondary to COVID 19 pneumonia. 08/13/20: Lasix again today. Continue to alternate between HFNC with NRB and bipap. Prognosis is very very guarded. Very very guarded to poor prognosis given CXR appearance, and body habitus, along with rapid decline in self sustaning oxygen levels. Agree with lasix and increase in steroids. Must prone. Very high likelihood for mechanical ventilation which would carry a high mortality for patient. Will continue to follow. No additional IVF's unless indicated. Subjective Date of service: 08/13/20 Interval history: Remains on bipap. Stable. lying on side. Per patient, feels about the same, no worse. Objective Vital Signs - 12hr 08/13/20 08/13/20 08/13/20 01:58 03:43 06:00 Temperature 99.9 F H Pulse Rate 73 Respiratory 23 Rate Blood Pressure 121/63 O2 Sat by Pulse 95 92 Oximetry 08/13/20 08/13/20 08/13/20 08:06 08:41 08:58 Temperature 98.5 F Pulse Rate 67 Respiratory 15 Rate Blood Pressure 128/53 O2 Sat by Pulse 93 93 Oximetry CBC and BMP: 08/13/20 05:35 08/13/20 05:35 ABG, PT/INR, D-dimer: ABG ABG pH 7.315 pH Units (7.350-7.450) L 08/12/20 14:55 POC ABG pCO2 57.1 mmHg (32.0-48.0) H 08/12/20 13:21 ABG pCO2 62.9 mm Hg 08/12/20 14:55 POC ABG pO2 47.8 mmHg (83-108) L 08/12/20 13:21 ABG pO2 65.8 mm Hg (80.0-90.0) L 08/12/20 14:55 POC ABG HCO3 32.9 08/12/20 13:21 ABG O2 Saturation 91.7 % (95.0-99.0) L 08/12/20 14:55 PT/INR, D-dimer PT 12.6 Sec. (12.2-14.9) 08/10/20 08:29 INR 0.96 (0.87-1.13) 08/10/20 08:29 D-Dimer 830.34 ng/mlDDU (0-234) H 08/12/20 06:29 Abnormal lab findings: Abnormal Labs 08/10/20 08/10/20 08/10/20 08:29 08:29 08:29 WBC Lymph % (Auto) [place] % (Auto) 8.4 H Lymph # (Auto) Seg Neutrophils % Seg Neutrophils # D-Dimer ABG pH POC ABG pCO2 POC ABG pO2 ABG pO2 ABG HCO3 ABG O2 Saturation ABG Hemoglobin ABG Potassium ABG Glucose VBG pH 7.303 L Oxyhemoglobin Potassium Carbon Dioxide BUN Glucose 132 H POC Glucose Hemoglobin A1c Ferritin AST Lactate Dehydrogenase C-Reactive Protein Albumin Arterial Blood Glucose Coronavirus (PCR) 08/11/20 08/11/20 08/11/20 05:39 05:39 05:39 WBC Lymph % (Auto) 12.5 L [place] % (Auto) Lymph # (Auto) Seg Neutrophils % 84.2 H Seg Neutrophils # 9.1 H D-Dimer ABG pH POC ABG pCO2 POC ABG pO2 ABG pO2 ABG HCO3 ABG O2 Saturation ABG Hemoglobin ABG Potassium ABG Glucose VBG pH Oxyhemoglobin Potassium Carbon Dioxide BUN Glucose 125 H POC Glucose Hemoglobin A1c 6.1 H Ferritin AST Lactate Dehydrogenase C-Reactive Protein Albumin Arterial Blood Glucose Coronavirus (PCR) 08/11/20 08/11/20 08/11/20 18:58 18:58 18:58 WBC Lymph % (Auto) [place] % (Auto) Lymph # (Auto) Seg Neutrophils % Seg Neutrophils # D-Dimer 464.84 H ABG pH POC ABG pCO2 POC ABG pO2 ABG pO2 ABG HCO3 ABG O2 Saturation ABG Hemoglobin ABG Potassium ABG Glucose VBG pH Oxyhemoglobin Potassium Carbon Dioxide BUN Glucose POC Glucose Hemoglobin A1c Ferritin 528.7 H AST Lactate Dehydrogenase 637 H C-Reactive Protein 11.30 H Albumin Arterial Blood Glucose Coronavirus (PCR) 08/11/20 08/11/20 08/12/20 19:08 Unknown 06:29 WBC 11.2 H Lymph % (Auto) 8.6 L [place] % (Auto) Lymph # (Auto) 1.0 L Seg Neutrophils % 88.3 H Seg Neutrophils # 9.8 H D-Dimer ABG pH POC ABG pCO2 POC ABG pO2 ABG pO2 ABG HCO3 ABG O2 Saturation ABG Hemoglobin ABG Potassium ABG Glucose VBG pH Oxyhemoglobin Potassium Carbon Dioxide BUN Glucose 161 H POC Glucose Hemoglobin A1c Ferritin AST Lactate Dehydrogenase C-Reactive Protein Albumin Arterial Blood Glucose Coronavirus (PCR) Positive A 08/12/20 08/12/20 08/12/20 06:29 06:29 06:29 WBC Lymph % (Auto) [place] % (Auto) Lymph # (Auto) Seg Neutrophils % Seg Neutrophils # D-Dimer 830.34 H ABG pH POC ABG pCO2 POC ABG pO2 ABG pO2 ABG HCO3 ABG O2 Saturation ABG Hemoglobin ABG Potassium ABG Glucose VBG pH Oxyhemoglobin Potassium Carbon Dioxide 31 H BUN Glucose 138 H POC Glucose Hemoglobin A1c Ferritin 572.6 H AST 42 H Lactate Dehydrogenase 706 H C-Reactive Protein 17.30 H Albumin 3.7 L Arterial Blood Glucose Coronavirus (PCR) 08/12/20 08/12/20 08/12/20 13:21 14:55 21:59 WBC Lymph % (Auto) [place] % (Auto) Lymph # (Auto) Seg Neutrophils % Seg Neutrophils # D-Dimer ABG pH 7.315 L POC ABG pCO2 57.1 H POC ABG pO2 47.8 L ABG pO2 65.8 L ABG HCO3 31.4 H ABG O2 Saturation 91.7 L ABG Hemoglobin 19.3 H ABG Potassium 4.9 H ABG Glucose 182 H VBG pH Oxyhemoglobin 89.7 L Potassium Carbon Dioxide BUN Glucose POC Glucose 142 H Hemoglobin A1c Ferritin AST Lactate Dehydrogenase C-Reactive Protein Albumin Arterial Blood Glucose 182 H Coronavirus (PCR) 08/13/20 08/13/20 08/13/20 05:35 05:35 12:11 WBC 12.0 H Lymph % (Auto) 8.1 L [place] % (Auto) Lymph # (Auto) 1.0 L Seg Neutrophils % 88.0 H Seg Neutrophils # 10.5 H D-Dimer ABG pH POC ABG pCO2 POC ABG pO2 ABG pO2 ABG HCO3 ABG O2 Saturation ABG Hemoglobin ABG Potassium ABG Glucose VBG pH Oxyhemoglobin Potassium 5.1 H Carbon Dioxide 31 H BUN 25 H Glucose 174 H POC Glucose 154 H Hemoglobin A1c Ferritin AST 41 H Lactate Dehydrogenase 996 H C-Reactive Protein Albumin 3.8 L Arterial Blood Glucose Coronavirus (PCR)
--- NOTE | 2020-08-13 13:10 | Progress Note ---
Assessment and Plan Assessment and plan: #Acute hypoxic respiratory failure secondary to COVID-19 PNA Continue oxygen supplementation with BIPAP #COVID-19 Pneumonia Continue antibiotics Continue steroids Remdesivir Oxygen supplementation Trend inflammatory markers Prone positioning advised ID and pulmonology following #Morbid obesity Diet and exercise advised #DVT prophylaxis-Lovenox History Interval history: 30-year-old male with morbid obesity weighing about 310 pounds comes in for intermittent frontal headache for 3 days. In the emergency room patient was very hypoxic but denies shortness of breath or cough. No muscle aches. His oxygen levels are mid 80s. Denies smoking. Work-up in the emergency room showed bilateral patchy opacities in the lungs and hypoxia-hence he was admitted for bilateral pneumonia and possible Covid pneumonia. No significant past medical history 08/11. Patient seen examined at bedside this morning. Has no complaints. Febrile this a.m.-103 Fahrenheit. On Tylenol as needed. COVID-19 test ordered. Remains on steroids. ID consult if COVID-19 is positive. 08/12. His COVID-19 test is positive. He was started on remdesivir last night. Oxygen requirement increased overnight. Inflammatory markers increasing. Repeat chest xray shows worsening infiltrates. Ordered BNP. Lasix 40mg IV ordered. Increased dexamethasone to 6mg BID. Pulmonology consulted. Will place on continuous pulse oximetry. Incentive spirometer ordered. Advised prone positioning. 08/13. Not feeling better. Seen on BIPAP. Remains on steroids, remdesivir and antibiotics. Vitals stable. Hospitalist Physical - Physical exam Narrative exam: VITAL SIGNS: Reviewed. GENERAL: Awake HEAD: No signs of head trauma. EYES: Pupils are equal. Extraocular motions intact. MOUTH: Oropharynx is normal. NECK: No adenopathy, no JVD. CHEST: Chest with diminished breath sounds bilaterally. No wheezes, rales, or rhonchi. CARDIAC: normal S1 and S2, without murmurs, gallops, or rubs. ABDOMEN: Soft, non tender and non distended. No rebound or guarding, and no masses palpated. Bowel Sounds normal. MUSCULOSKELETAL: No edema NEUROLOGIC EXAM: Alert and oriented x3. No focal neurologic deficits SKIN: No obvious lesions - Constitutional Vitals: Temp Pulse Resp BP Pulse Ox 98.5 F 67 15 128/53 93 08/13/20 08:58 08/13/20 08:06 08/13/20 08:06 08/13/20 08:06 08/13/20 08:41 Results - Labs CBC & Chem 7: 08/13/20 05:35 08/13/20 05:35 Labs: Laboratory Last Values WBC 12.0 K/mm3 (4.5-11.0) H 08/13/20 05:35 RBC 4.22 M/mm3 (3.65-5.03) 08/13/20 05:35 Hgb 12.2 gm/dl (11.8-15.2) 08/13/20 05:35 Hct 37.2 % (35.5-45.6) 08/13/20 05:35 MCV 88 fl (84-94) 08/13/20 05:35 MCH 29 pg (28-32) 08/13/20 05:35 MCHC 33 % (32-34) 08/13/20 05:35 RDW 13.9 % (13.2-15.2) 08/13/20 05:35 Plt Count 198 K/mm3 (140-440) 08/13/20 05:35 Lymph % (Auto) 8.1 % (13.4-35.0) L 08/13/20 05:35 [place] % (Auto) 3.7 % (0.0-7.3) 08/13/20 05:35 Eos % (Auto) 0.0 % (0.0-4.3) 08/13/20 05:35 Baso % (Auto) 0.2 % (0.0-1.8) 08/13/20 05:35 Lymph # (Auto) 1.0 K/mm3 (1.2-5.4) L 08/13/20 05:35 [place] # (Auto) 0.4 K/mm3 (0.0-0.8) 08/13/20 05:35 Eos # (Auto) 0.0 K/mm3 (0.0-0.4) 08/13/20 05:35 Baso # (Auto) 0.0 K/mm3 (0.0-0.1) 08/13/20 05:35 Seg Neutrophils % 88.0 % (40.0-70.0) H 08/13/20 05:35 Seg Neutrophils # 10.5 K/mm3 (1.8-7.7) H 08/13/20 05:35 PT 12.6 Sec. (12.2-14.9) 08/10/20 08:29 INR 0.96 (0.87-1.13) 08/10/20 08:29 D-Dimer 830.34 ng/mlDDU (0-234) H 08/12/20 06:29 ABG pH 7.315 pH Units (7.350-7.450) L 08/12/20 14:55 POC ABG pCO2 57.1 mmHg (32.0-48.0) H 08/12/20 13:21 ABG pCO2 62.9 mm Hg 08/12/20 14:55 POC ABG pO2 47.8 mmHg (83-108) L 08/12/20 13: ABG pO2 65.8 mm Hg (80.0-90.0) L 08/12/20 14:55 POC ABG HCO3 32.9 08/12/20 13: ABG HCO3 31.4 mmol/L (20.0-26.0) H 08/12/20 14:55 ABG O2 Saturation 91.7 % (95.0-99.0) L 08/12/20 14:55 ABG O2 Content 24.3 (0.0-44) 08/12/20 14:55 POC ABG Base Excess 6.1 08/12/20 13: ABG Base Excess 2.6 mmol/L (-2.0-3.0) 08/12/20 14:55 ABG Hemoglobin 19.3 gm/dl (14.0-18.0) H 08/12/20 14:55 ABG Carboxyhemoglobin 1.7 % (0.0-5.0) 08/12/20 14:55 ABG Methemoglobin 0.5 % (0.0-1.5) 08/12/20 14:55 ABG Sodium 138.9 mmol/L (136.0-145.0) 08/12/20 13:21 ABG Potassium 4.9 mmol/L (3.40-4.50) H 08/12/20 13:21 ABG Chloride 100.0 mmol/L (98-107) 08/12/20 13:21 ABG Glucose 182 mg/dL (65-95) H 08/12/20 13:21 VBG pH 7.303 (7.320-7.420) L 08/10/20 08:29 Oxyhemoglobin 89.7 % (95.0-99.0) L 08/12/20 14:55 FiO2 60 % 08/12/20 14:55 FiO2 % 100.0 08/12/20 13:21 Sodium 144 mmol/L (137-145) 08/13/20 05:35 Potassium 5.1 mmol/L (3.6-5.0) H 08/13/20 05:35 Chloride 101.8 mmol/L (98-107) 08/13/20 05:35 Carbon Dioxide 31 mmol/L (22-30) H 08/13/20 05:35 Anion Gap 16 mmol/L 08/13/20 05:35 BUN 25 mg/dL (9-20) H 08/13/20 05:35 Creatinine 1.0 mg/dL (0.8-1.3) 08/13/20 05:35 Estimated GFR > 60 ml/min 08/13/20 05:35 BUN/Creatinine Ratio 25 % 08/13/20 05:35 Glucose 174 mg/dL (75-100) H 08/13/20 05:35 POC Glucose 154 mg/dL (70-105) H 08/13/20 12:11 Hemoglobin A1c 6.1 % (4-6) H 08/11/20 05:39 Lactic Acid 0.80 mmol/L (0.7-2.0) 08/10/20 11:18 Calcium 8.9 mg/dL (8.4-10.2) 08/13/20 05:35 Ferritin 572.6 ng/mL (30.0-300.0) H 08/12/20 06:29 Total Bilirubin 0.50 mg/dL (0.1-1.2) 08/13/20 05:35 AST 41 units/L (5-40) H 08/13/20 05:35 ALT 19 units/L (7-56) 08/13/20 05:35 Alkaline Phosphatase 56 units/L (35-129) 08/13/20 05:35 Lactate Dehydrogenase 996 units/L (91-180) H 08/13/20 05:35 C-Reactive Protein 17.30 mg/dL (0.00-1.30) H 08/12/20 06:29 NT-Pro-B Natriuret Pep 36.40 pg/mL (0-450) 08/12/20 06:29 Total Protein 7.5 g/dL (6.3-8.2) 08/13/20 05:35 Albumin 3.8 g/dL (3.9-5) L 08/13/20 05:35 Albumin/Globulin Ratio 1.0 % 08/13/20 05:35 Procalcitonin 1.62 ng/mL (<0.15) 08/11/20 18:58 Arterial Blood Glucose 182 mg/dL (65-95) H 08/12/20 13:21 Arterial Blood Ionized Calcium 4.7 mg/dL (4.6-5.3) 08/12/20 13:21 Urine Color Yellow (Yellow) 08/10/20 Unknown Urine Turbidity Cloudy (Clear) 08/10/20 Unknown Urine pH 5.0 (5.0-7.0) 08/10/20 Unknown Ur Specific [place] 1.025 (1.003-1.030) 08/10/20 Unknown Urine Protein 30 mg/dl mg/dL (Negative) 08/10/20 Unknown Urine Glucose (UA) 150 mg/dL (Negative) 08/10/20 Unknown Urine Ketones Negative mg/dL (Negative) 08/10/20 Unknown Urine Blood Negative (Negative) 08/10/20 Unknown Urine Nitrite Negative (Negative) 08/10/20 Unknown Urine Bilirubin Negative (Negative) 08/10/20 Unknown Urine Urobilinogen < 2.0 mg/dL (<2.0) 08/10/20 Unknown Ur Leukocyte Esterase Negative (Negative) 08/10/20 Unknown Urine WBC (Auto) 5.0 /HPF (0.0-6.0) 08/10/20 Unknown Urine RBC (Auto) 2.0 /HPF (0.0-6.0) 08/10/20 Unknown U Epithel Cells (Auto) 1.0 /HPF (0-13.0) 08/10/20 Unknown Urine Bacteria (Auto) 1+ /HPF (Negative) 08/10/20 Unknown Urine Mucus 3+ /HPF 08/10/20 Unknown Coronavirus (PCR) Positive (Negative) A 08/11/20 Unknown Microbiology: Microbiology 08/10/20 Unknown Urine,Clean Catch Urine Culture - Final NO GROWTH AFTER 48 HOURS 08/10/20 08:29 Peripheral/Venous Blood Culture - Preliminary NO GROWTH AFTER 72 HOURS 08/10/20 08:29 Peripheral/Venous Blood Culture - Preliminary NO GROWTH AFTER 72 HOURS Gaytan/IV: Voiding Method Condom Catheter Active Medications - Current Medications Current Medications: Generic Name Dose Route Start Last Admin Trade Name Freq PRN Reason Stop Dose Admin Acetaminophen 650 mg 08/10/20 23:48 08/12/20 22:41 Acetaminophen 325 Mg Tab PO 650 mg Q4H PRN Administration Pain MILD(1-3)/Fever >100.5/MARTINEZ Ascorbic Acid 500 mg 08/12/20 10:00 08/13/20 10:42 Ascorbic Acid 500 Mg Tab PO 500 mg BID MELANIE Administration Dexamethasone 6 mg 08/12/20 10:00 08/13/20 10:42 Dexamethasone 4 Mg/Ml Vial IV 08/21/20 22:01 6 mg Q12HR MELANIE Administration Famotidine 20 mg 08/11/20 10:00 08/13/20 10:43 Famotidine 20 Mg/2 Ml Inj IV 20 mg BID MELANIE Administration Azithromycin 500 mg in 250 mls @ 250 mls/hr 08/11/20 10:00 08/12/20 09:29 Zithromax/Ns IV 08/15/20 10:59 250 mls/hr Q24HR MELANIE Administration Ceftriaxone Sodium 2 gm in 100 mls @ 200 mls/hr 08/11/20 10:00 08/13/20 10:42 Rocephin/Ns 2 Gm/100 Ml IV 08/15/20 10:29 200 mls/hr Q24HR MELANIE Administration Protocol REMDESIVIR 100 mg/ Sodium 250 mls @ 500 mls/hr 08/12/20 21:00 Chloride IV 08/17/20 21:29 Q24HR@2100 MELANIE Metoclopramide HCl 10 mg 08/10/20 23:48 Metoclopramide 10 Mg/2 Ml Inj IV Q6H PRN Nausea And Vomiting Morphine Sulfate 2 mg 08/10/20 23:48 Morphine 2 Mg/1 Ml Inj IV Q4H PRN Pain, Moderate (4-6) Ondansetron HCl 4 mg 08/10/20 23:48 Ondansetron 4 Mg/2 Ml Inj IV Q8H PRN Nausea And Vomiting Oxycodone/Acetaminophen 1 tab 08/10/20 23:48 Oxycodone /Acetaminophen 5-325mg Tab PO Q6H PRN Pain, Moderate (4-6) Sodium Chloride 10 ml 08/11/20 10:00 08/13/20 10:47 Sodium Chloride 0.9% 10 Ml Flush Syringe IV 10 ml BID MELANIE Administration Sodium Chloride 10 ml 08/10/20 23:48 08/12/20 21:04 Sodium Chloride 0.9% 10 Ml Flush Syringe IV 10 ml PRN PRN Administration LINE FLUSH Sodium Chloride 50 ml 08/11/20 21:00 08/12/20 21:30 Sodium Chloride 0.9% 50 Ml Ivpb IV 08/16/20 21:01 Not Given Q24HR@2100 MELANIE Zinc Sulfate 220 mg 08/12/20 12:00 08/13/20 10:46 Zinc Sulfate 220 Mg Cap PO 220 mg QDAY MELANIE Administration
[2020-08-13] MEDS: AZITHROMYCIN/NS 500 MG/250 ML 500 MG/250 ML BAG IV SCH (14:10)
[2020-08-13] MEDS ORDERED: FUROSEMIDE 40 MG/4 ML INJ ONE (15:12)
[2020-08-13] MEDS ORDERED: FUROSEMIDE 20 MG/2 ML INJ ONE (15:19)
[2020-08-13] MEDS: ACETAMINOPHEN 325 MG TAB PO PRN (22:56)
[2020-08-14 06:15] LABS: Basophils % (Auto) 0.1 % (0.0-1.8); Hematocrit 38.7 % (35.5-45.6); Hemoglobin 12.7 gm/dl (11.8-15.2); Lymphocytes # (Auto) 1.2 K/mm3 (1.2-5.4); Lymphocytes % (Auto) 8.2 % (13.4-35.0); Mean Corpuscular HGB Conc 33 % (32-34); Mean Corpuscular Volume 88 fl (84-94); Monocytes # (Auto) 0.9 K/mm3 (0.0-0.8); Monocytes % (Auto) 6.3 % (0.0-7.3); Platelet Count 176 K/mm3 (140-440); Red Cell Distribution Width 13.3 % (13.2-15.2)
[2020-08-14 06:25] LABS: Alanine Aminotransferase 37 units/L (7-56); Albumin 3.7 g/dL (3.9-5); BUN/Creatinine Ratio 29; Blood Urea Nitrogen 26 mg/dL (9-20); Hemolysis Index 2
[2020-08-14 06:27] LABS: Alanine Aminotransferase 37 units/L (7-56); Albumin 3.7 g/dL (3.9-5); BUN/Creatinine Ratio 29; Blood Urea Nitrogen 26 mg/dL (9-20); Hemolysis Index 1
[2020-08-14] MEDS ORDERED: FUROSEMIDE 40 MG/4 ML INJ IV SCH (08:30)
[2020-08-14] MEDS ORDERED: ENOXAPARIN 100 MG/1 ML INJ SUB-Q SCH (10:00)
[2020-08-14] MEDS: cefTRIAXone/NS 2 GM/100 ML 2 GM/100 ML BAG IV SCH (10:13)
[2020-08-14] MEDS: ENOXAPARIN 150 MG/1 ML INJ SUB-Q SCH ×2 (10:13→22:55)
[2020-08-14] MEDS: dexAMETHasone 4 MG/ML VIAL IV SCH ×2 (10:14→22:55)
[2020-08-14] MEDS: ASCORBIC ACID 500 MG TAB PO SCH ×2 (10:15→22:55)
[2020-08-14] MEDS: AZITHROMYCIN/NS 500 MG/250 ML 500 MG/250 ML BAG IV SCH (10:15)
[2020-08-14] MEDS: ZINC SULFATE 220 MG CAP PO SCH (10:15)
[2020-08-14] MEDS: FAMOTIDINE 20 MG/2 ML INJ IV SCH ×2 (10:16→22:55)
--- NOTE | 2020-08-14 11:39 | Progress Note ---
Assessment and Plan 30 y/o morbidly obese male with acute respiratory failure secondary to COVID 19 pneumonia. 08/14/20: Will accept sats in the mid 80's as long as mental state and work of breathing do not change. AGree with lasix therapy. Found to have large DVT on right. Spoke with [facility] and asked them to order stat echo to look for right heart strain, and if present may need to consider echos. Await echo before vascular consult. Prone if possible. Long discussion with mother on phone. Gave her a list of the meds he is on and what our current plan is. Also very candid with her and son at bedside that the mortality rate with COVID is very very high. 08/13/20: Lasix again today. Continue to alternate between HFNC with NRB and bipap. Prognosis is very very guarded. Very very guarded to poor prognosis given CXR appearance, and body habitus, along with rapid decline in self sustaning oxygen levels. Agree with lasix and increase in steroids. Must prone. Very high likelihood for mechanical ventilation which would carry a high mortality for patient. Will continue to follow. No additional IVF's unless indicated. Subjective Date of service: 08/14/20 Interval history: Had an acute hypoxic episode. Still awake and alert but had to be bagged. Back on bipap full face mask. Sats in the mid 80's but work of breathing is stable. Started on Lovenox and given lasix this am. Mother called and I spoke with her on the phone. Objective Vital Signs - 12hr 08/13/20 08/13/20 08/14/20 23:56 23:57 00:00 Temperature 98.2 F Pulse Rate Pulse Rate [ From Monitor] Respiratory 20 Rate Blood Pressure O2 Sat by Pulse 94 Oximetry 08/14/20 08/14/20 08/14/20 00:01 00:40 01:01 Temperature Pulse Rate 70 76 85 Pulse Rate [ From Monitor] Respiratory 22 19 Rate Blood Pressure 144/67 O2 Sat by Pulse 91 92 Oximetry 08/14/20 08/14/20 08/14/20 02:00 02:22 03:00 Temperature Pulse Rate 70 73 66 Pulse Rate [ From Monitor] Respiratory 31 H 16 Rate Blood Pressure 133/75 133/75 130/76 O2 Sat by Pulse 94 97 Oximetry 08/14/20 08/14/20 08/14/20 04:00 04:24 04:55 Temperature 100.7 F H Pulse Rate 66 67 Pulse Rate [ 72 From Monitor] Respiratory 16 16 Rate Blood Pressure 123/60 O2 Sat by Pulse 89 95 Oximetry 08/14/20 08/14/20 08/14/20 05:00 06:00 07:00 Temperature Pulse Rate 65 63 61 Pulse Rate [ From Monitor] Respiratory 12 15 20 Rate Blood Pressure 129/78 137/75 145/67 O2 Sat by Pulse 97 97 95 Oximetry 08/14/20 08/14/20 08/14/20 08:00 08:20 08:30 Temperature Pulse Rate 67 69 70 Pulse Rate [ From Monitor] Respiratory 16 28 H Rate Blood Pressure 125/82 128/76 O2 Sat by Pulse 47 L 88 Oximetry 08/14/20 08/14/20 09:01 11:01 Temperature Pulse Rate 69 Pulse Rate [ From Monitor] Respiratory 11 L Rate Blood Pressure 133/88 O2 Sat by Pulse 87 88 Oximetry CBC and BMP: 08/14/20 05:21 08/14/20 05:21 ABG, PT/INR, D-dimer: ABG ABG pH 7.315 pH Units (7.350-7.450) L 08/12/20 14:55 POC ABG pCO2 57.1 mmHg (32.0-48.0) H 08/12/20 13:21 ABG pCO2 62.9 mm Hg 08/12/20 14:55 POC ABG pO2 47.8 mmHg (83-108) L 08/12/20 13:21 ABG pO2 65.8 mm Hg (80.0-90.0) L 08/12/20 14:55 POC ABG HCO3 32.9 08/12/20 13:21 ABG O2 Saturation 91.7 % (95.0-99.0) L 08/12/20 14:55 PT/INR, D-dimer PT 12.6 Sec. (12.2-14.9) 08/10/20 08:29 INR 0.96 (0.87-1.13) 08/10/20 08:29 D-Dimer > 26596 ng/mlDDU (0-234) H 08/14/20 05:21 Abnormal lab findings: Abnormal Labs 08/10/20 08/10/20 08/10/20 08:29 08:29 08:29 WBC Lymph % (Auto) [place] % (Auto) 8.4 H Lymph # (Auto) [place] # (Auto) Seg Neutrophils % Seg Neutrophils # D-Dimer ABG pH POC ABG pCO2 POC ABG pO2 ABG pO2 ABG HCO3 ABG O2 Saturation ABG Hemoglobin ABG Potassium ABG Glucose VBG pH 7.303 L Oxyhemoglobin Potassium Carbon Dioxide BUN Glucose 132 H POC Glucose Hemoglobin A1c Ferritin AST Lactate Dehydrogenase C-Reactive Protein Albumin Arterial Blood Glucose Coronavirus (PCR) 08/11/20 08/11/20 08/11/20 05:39 05:39 05:39 WBC Lymph % (Auto) 12.5 L [place] % (Auto) Lymph # (Auto) [place] # (Auto) Seg Neutrophils % 84.2 H Seg Neutrophils # 9.1 H D-Dimer ABG pH POC ABG pCO2 POC ABG pO2 ABG pO2 ABG HCO3 ABG O2 Saturation ABG Hemoglobin ABG Potassium ABG Glucose VBG pH Oxyhemoglobin Potassium Carbon Dioxide BUN Glucose 125 H POC Glucose Hemoglobin A1c 6.1 H Ferritin AST Lactate Dehydrogenase C-Reactive Protein Albumin Arterial Blood Glucose Coronavirus (PCR) 08/11/20 08/11/20 08/11/20 18:58 18:58 18:58 WBC Lymph % (Auto) [place] % (Auto) Lymph # (Auto) [place] # (Auto) Seg Neutrophils % Seg Neutrophils # D-Dimer 464.84 H ABG pH POC ABG pCO2 POC ABG pO2 ABG pO2 ABG HCO3 ABG O2 Saturation ABG Hemoglobin ABG Potassium ABG Glucose VBG pH Oxyhemoglobin Potassium Carbon Dioxide BUN Glucose POC Glucose Hemoglobin A1c Ferritin 528.7 H AST Lactate Dehydrogenase 637 H C-Reactive Protein 11.30 H Albumin Arterial Blood Glucose Coronavirus (PCR) 08/11/20 08/11/20 08/12/20 19:08 Unknown 06:29 WBC 11.2 H Lymph % (Auto) 8.6 L [place] % (Auto) Lymph # (Auto) 1.0 L [place] # (Auto) Seg Neutrophils % 88.3 H Seg Neutrophils # 9.8 H D-Dimer ABG pH POC ABG pCO2 POC ABG pO2 ABG pO2 ABG HCO3 ABG O2 Saturation ABG Hemoglobin ABG Potassium ABG Glucose VBG pH Oxyhemoglobin Potassium Carbon Dioxide BUN Glucose 161 H POC Glucose Hemoglobin A1c Ferritin AST Lactate Dehydrogenase C-Reactive Protein Albumin Arterial Blood Glucose Coronavirus (PCR) Positive A 08/12/20 08/12/20 08/12/20 06:29 06:29 06:29 WBC Lymph % (Auto) [place] % (Auto) Lymph # (Auto) [place] # (Auto) Seg Neutrophils % Seg Neutrophils # D-Dimer 830.34 H ABG pH POC ABG pCO2 POC ABG pO2 ABG pO2 ABG HCO3 ABG O2 Saturation ABG Hemoglobin ABG Potassium ABG Glucose VBG pH Oxyhemoglobin Potassium Carbon Dioxide 31 H BUN Glucose 138 H POC Glucose Hemoglobin A1c Ferritin 572.6 H AST 42 H Lactate Dehydrogenase 706 H C-Reactive Protein 17.30 H Albumin 3.7 L Arterial Blood Glucose Coronavirus (PCR) 08/12/20 08/12/20 08/12/20 13:21 14:55 21:59 WBC Lymph % (Auto) [place] % (Auto) Lymph # (Auto) [place] # (Auto) Seg Neutrophils % Seg Neutrophils # D-Dimer ABG pH 7.315 L POC ABG pCO2 57.1 H POC ABG pO2 47.8 L ABG pO2 65.8 L ABG HCO3 31.4 H ABG O2 Saturation 91.7 L ABG Hemoglobin 19.3 H ABG Potassium 4.9 H ABG Glucose 182 H VBG pH Oxyhemoglobin 89.7 L Potassium Carbon Dioxide BUN Glucose POC Glucose 142 H Hemoglobin A1c Ferritin AST Lactate Dehydrogenase C-Reactive Protein Albumin Arterial Blood Glucose 182 H Coronavirus (PCR) 08/13/20 08/13/20 08/13/20 05:35 05:35 12:11 WBC 12.0 H Lymph % (Auto) 8.1 L [place] % (Auto) Lymph # (Auto) 1.0 L [place] # (Auto) Seg Neutrophils % 88.0 H Seg Neutrophils # 10.5 H D-Dimer ABG pH POC ABG pCO2 POC ABG pO2 ABG pO2 ABG HCO3 ABG O2 Saturation ABG Hemoglobin ABG Potassium ABG Glucose VBG pH Oxyhemoglobin Potassium 5.1 H Carbon Dioxide 31 H BUN 25 H Glucose 174 H POC Glucose 154 H Hemoglobin A1c Ferritin AST 41 H Lactate Dehydrogenase 996 H C-Reactive Protein Albumin 3.8 L Arterial Blood Glucose Coronavirus (PCR) 08/13/20 08/13/20 08/14/20 16:18 23:24 05:21 WBC 14.2 H Lymph % (Auto) 8.2 L [place] % (Auto) Lymph # (Auto) [place] # (Auto) 0.9 H Seg Neutrophils % 85.4 H Seg Neutrophils # 12.2 H D-Dimer ABG pH POC ABG pCO2 POC ABG pO2 ABG pO2 ABG HCO3 ABG O2 Saturation ABG Hemoglobin ABG Potassium ABG Glucose VBG pH Oxyhemoglobin Potassium Carbon Dioxide BUN Glucose POC Glucose 188 H 127 H Hemoglobin A1c Ferritin AST Lactate Dehydrogenase C-Reactive Protein Albumin Arterial Blood Glucose Coronavirus (PCR) 08/14/20 08/14/20 08/14/20 05:21 05:21 05:21 WBC Lymph % (Auto) [place] % (Auto) Lymph # (Auto) [place] # (Auto) Seg Neutrophils % Seg Neutrophils # D-Dimer > 49123 H ABG pH POC ABG pCO2 POC ABG pO2 ABG pO2 ABG HCO3 ABG O2 Saturation ABG Hemoglobin ABG Potassium ABG Glucose VBG pH Oxyhemoglobin Potassium Carbon Dioxide 32 H 33 H BUN 26 H 26 H Glucose 152 H 156 H POC Glucose Hemoglobin A1c Ferritin AST 53 H 54 H Lactate Dehydrogenase 1249 H C-Reactive Protein 9.90 H Albumin 3.7 L 3.7 L Arterial Blood Glucose Coronavirus (PCR) 08/14/20 08/14/20 05:21 05:58 WBC Lymph % (Auto) [place] % (Auto) Lymph # (Auto) [place] # (Auto) Seg Neutrophils % Seg Neutrophils # D-Dimer ABG pH POC ABG pCO2 POC ABG pO2 ABG pO2 ABG HCO3 ABG O2 Saturation ABG Hemoglobin ABG Potassium ABG Glucose VBG pH Oxyhemoglobin Potassium Carbon Dioxide BUN Glucose POC Glucose 139 H Hemoglobin A1c Ferritin 1198.0 H AST Lactate Dehydrogenase C-Reactive Protein Albumin Arterial Blood Glucose Coronavirus (PCR)
--- NOTE | 2020-08-14 12:04 | Vascular Lab Report ---
DUPLEX DOPPLER LOWER EXTREMITY VEINS, BILATERAL INDICATION: DVT. Covid patient with acute bilateral leg swelling TECHNIQUE: Duplex doppler imaging was performed through the veins of both lower extremities using venous saurabh dorinda and other maneuvers. COMPARISON: No relevant prior imaging study available. FINDINGS: Right Common femoral vein: Negative. Right Superficial femoral vein: Negative. Right Popliteal vein: Occlusive thrombus is present. Right Calf veins: Occlusive thrombus extends into the peroneal veins and the posterior tibial vein. Left Common femoral vein: Negative. Left Superficial femoral vein: Negative. Left Popliteal vein: Negative. Left Calf veins: Negative. Additional findings: None.. IMPRESSION: 1. Positive for DVT in the right lower extremity as outlined above. Dr. Purdy was contacted by the s onographer at 1135 Eastern standard time for this finding. Signer Name: Fuad Lane MD Signed: 08/14/2020 12:00 PM Workstation Name: [email or web address]
[2020-08-14] MEDS ORDERED: ACTEMRA IV ONE (12:44)
--- NOTE | 2020-08-14 12:44 | Progress Note ---
Assessment and Plan Cultures: Blood culture 08/10/2020 no growth SARS CoV2 PCR positive 08/10/2020 urine culture: No growth Assessment: 30 years old male with history of morbid obesity, admitted on 08/10/2020 secondary to 3-day history of intermittent frontal headache: #Bilateral pneumonia: Secondary to COVID-19. #Acute hypoxemic respiratory failure: Worsening, now on BiPAP. #Acute right leg DVT #LONNY: Resolved #Morbid obesity: Associated with worse outcomes Recommendations: -Continue dexamethasone for 10 days -Continue remdesivir, per discussion with pharmacy, it is currently out of stock -CRP remains high, patient with worsening from HFNC to BiPAP, might benefit from tocilizumab, will order 1 dose 800 mg -Monitor inflammatory markers - ferritin, Ddimer, CRP, LDH, ordered -continue anticoagulation for DVT -complete empiric abx course Catracho Ng MD, FACP [facility] ([facility] O: [phone] F: [phone] Subjective Date of service: 08/14/20 Interval history: Afebrile. Now on BiPAP. Continues to have low-grade fevers. D-dimer significantly elevated, was found to have a DVT in the right leg. Objective - Exam Narrative Exam: Physical Exam (reviewed in chart to minimize risk of transmission) Constitutional: deferred Head, Ears, Nose: deferred Eyes: deferred Neck: deferred Oral: deferred Cardiovascular: deferred Respiratory: deferred GI: deferred Musculoskeletal: deferred Skin: deferred Hem/Lymphatic: deferred Psych: deferred Neurological: deferred - Constitutional Vitals: Vital Signs Temp Pulse Resp BP Pulse Ox 100.7 F H 69 11 L 133/88 88 08/14/20 04:00 08/14/20 09:01 08/14/20 09:01 08/14/20 09:01 08/14/20 11:01 Temperature -Last 24 Hours Temperature 100.7 F Temperature 98.2 F Temperature 100.3 F - Labs CBC & Chem 7: 08/14/20 05:21 08/14/20 05:21 Labs: Abnormal lab results 08/13/20 08/13/20 08/14/20 Range/Units 16:18 23:24 05:21 WBC 14.2 H (4.5-11.0) K/mm3 Lymph % (Auto) 8.2 L (13.4-35.0) % [place] # (Auto) 0.9 H (0.0-0.8) K/mm3 Seg Neutrophils % 85.4 H (40.0-70.0) % Seg Neutrophils # 12.2 H (1.8-7.7) K/mm3 D-Dimer (0-234) ng/mlDDU Carbon Dioxide (22-30) mmol/L BUN (9-20) mg/dL Glucose (75-100) mg/dL POC Glucose 188 H 127 H (70-105) mg/dL Ferritin (30.0-300.0) ng/mL AST (5-40) units/L Lactate Dehydrogenase (91-180) units/L C-Reactive Protein (0.00-1.30) mg/dL Albumin (3.9-5) g/dL 08/14/20 08/14/20 08/14/20 Range/Units 05:21 05:21 05:21 WBC (4.5-11.0) K/mm3 Lymph % (Auto) (13.4-35.0) % [place] # (Auto) (0.0-0.8) K/mm3 Seg Neutrophils % (40.0-70.0) % Seg Neutrophils # (1.8-7.7) K/mm3 D-Dimer > 46467 H (0-234) ng/mlDDU Carbon Dioxide 32 H 33 H (22-30) mmol/L BUN 26 H 26 H (9-20) mg/dL Glucose 152 H 156 H (75-100) mg/dL POC Glucose (70-105) mg/dL Ferritin (30.0-300.0) ng/mL AST 53 H 54 H (5-40) units/L Lactate Dehydrogenase 1249 H (91-180) units/L C-Reactive Protein 9.90 H (0.00-1.30) mg/dL Albumin 3.7 L 3.7 L (3.9-5) g/dL 08/14/20 08/14/20 Range/Units 05:21 05:58 WBC (4.5-11.0) K/mm3 Lymph % (Auto) (13.4-35.0) % [place] # (Auto) (0.0-0.8) K/mm3 Seg Neutrophils % (40.0-70.0) % Seg Neutrophils # (1.8-7.7) K/mm3 D-Dimer (0-234) ng/mlDDU Carbon Dioxide (22-30) mmol/L BUN (9-20) mg/dL Glucose (75-100) mg/dL POC Glucose 139 H (70-105) mg/dL Ferritin 1198.0 H (30.0-300.0) ng/mL AST (5-40) units/L Lactate Dehydrogenase (91-180) units/L C-Reactive Protein (0.00-1.30) mg/dL Albumin (3.9-5) g/dL
--- NOTE | 2020-08-14 13:48 | Progress Note ---
Assessment and Plan Assessment and plan: #Acute hypoxic respiratory failure secondary to COVID-19 PNA Continue oxygen supplementation with BIPAP #COVID-19 Pneumonia Continue antibiotics Continue steroids Remdesivir Started on tocilizumab as per ID. Oxygen supplementation with BiPAP Trend inflammatory markers Prone positioning strongly advised ID and pulmonology following #Right lower extremity DVT D-dimer more than 10,000 Now on Lovenox 150 mg twice daily Echocardiogram ordered to rule out right heart strain. Patient may need vascular surgery evaluation #Morbid obesity Diet and exercise advised #DVT prophylaxis-Lovenox History Interval history: 30-year-old male with morbid obesity weighing about 310 pounds comes in for intermittent frontal headache for 3 days. In the emergency room patient was very hypoxic but denies shortness of breath or cough. No muscle aches. His oxygen levels are mid 80s. Denies smoking. Work-up in the emergency room showed bilateral patchy opacities in the lungs and hypoxia-hence he was admitted for bilateral pneumonia and possible Covid pneumonia. No significant past medical history 08/11. Patient seen examined at bedside this morning. Has no complaints. Febrile this a.m.-103 Fahrenheit. On Tylenol as needed. COVID-19 test ordered. Remains on steroids. ID consult if COVID-19 is positive. 08/12. His COVID-19 test is positive. He was started on remdesivir last night. Oxygen requirement increased overnight. Inflammatory markers increasing. Repeat chest xray shows worsening infiltrates. Ordered BNP. Lasix 40mg IV ordered. Increased dexamethasone to 6mg BID. Pulmonology consulted. Will place on continuous pulse oximetry. Incentive spirometer ordered. Advised prone positioning. 08/13. Not feeling better. Seen on BIPAP. Remains on steroids, remdesivir and antibiotics. Vitals stable. 08/14. Still maintaining sats even on BiPAP. Lasix 40 mg IV ordered. D-dimer this a.m. is more than 10,000. Lovenox increased to 150 mg twice daily. Ultrasound lower extremities Doppler showed a right DVT. Echocardiogram ordered to rule out right heart strain. Pending results, patient may need vascular surgery evaluation for possible thrombectomy. Continue on BiPAP and continue to monitor respiratory status closely. Hospitalist Physical - Physical exam Narrative exam: VITAL SIGNS: Reviewed. GENERAL: Awake HEAD: No signs of head trauma. EYES: Pupils are equal. Extraocular motions intact. MOUTH: Oropharynx is normal. NECK: No adenopathy, no JVD. CHEST: Chest with diminished breath sounds bilaterally. No wheezes, rales, or rhonchi. CARDIAC: normal S1 and S2, without murmurs, gallops, or rubs. ABDOMEN: Soft, non tender and non distended. No rebound or guarding, and no masses palpated. Bowel Sounds normal. MUSCULOSKELETAL: No edema NEUROLOGIC EXAM: Alert and oriented x3. No focal neurologic deficits SKIN: No obvious lesions - Constitutional Vitals: Temp Pulse Resp BP Pulse Ox 100.7 F H 69 11 L 133/88 88 08/14/20 04:00 08/14/20 09:01 08/14/20 09:01 08/14/20 09:01 08/14/20 11:01 Results - Labs CBC & Chem 7: 08/15/20 05:16 08/15/20 05:16 Labs: Laboratory Last Values WBC 14.2 K/mm3 (4.5-11.0) H 08/14/20 05:21 RBC 4.40 M/mm3 (3.65-5.03) 08/14/20 05:21 Hgb 12.7 gm/dl (11.8-15.2) 08/14/20 05:21 Hct 38.7 % (35.5-45.6) 08/14/20 05:21 MCV 88 fl (84-94) 08/14/20 05:21 MCH 29 pg (28-32) 08/14/20 05:21 MCHC 33 % (32-34) 08/14/20 05:21 RDW 13.3 % (13.2-15.2) 08/14/20 05:21 Plt Count 176 K/mm3 (140-440) 08/14/20 05:21 Lymph % (Auto) 8.2 % (13.4-35.0) L 08/14/20 05:21 [place] % (Auto) 6.3 % (0.0-7.3) 08/14/20 05:21 Eos % (Auto) 0.0 % (0.0-4.3) 08/14/20 05:21 Baso % (Auto) 0.1 % (0.0-1.8) 08/14/20 05:21 Lymph # (Auto) 1.2 K/mm3 (1.2-5.4) 08/14/20 05:21 [place] # (Auto) 0.9 K/mm3 (0.0-0.8) H 08/14/20 05:21 Eos # (Auto) 0.0 K/mm3 (0.0-0.4) 08/14/20 05:21 Baso # (Auto) 0.0 K/mm3 (0.0-0.1) 08/14/20 05:21 Seg Neutrophils % 85.4 % (40.0-70.0) H 08/14/20 05:21 Seg Neutrophils # 12.2 K/mm3 (1.8-7.7) H 08/14/20 05:21 PT 12.6 Sec. (12.2-14.9) 08/10/20 08:29 INR 0.96 (0.87-1.13) 08/10/20 08:29 D-Dimer > 70545 ng/mlDDU (0-234) H 08/14/20 05:21 ABG pH 7.315 pH Units (7.350-7.450) L 08/12/20 14:55 POC ABG pCO2 57.1 mmHg (32.0-48.0) H 08/12/20 13:21 ABG pCO2 62.9 mm Hg 08/12/20 14:55 POC ABG pO2 47.8 mmHg (83-108) L 08/12/20 13:21 ABG pO2 65.8 mm Hg (80.0-90.0) L 08/12/20 14:55 POC ABG HCO3 32.9 08/12/20 13:21 ABG HCO3 31.4 mmol/L (20.0-26.0) H 08/12/20 14:55 ABG O2 Saturation 91.7 % (95.0-99.0) L 08/12/20 14:55 ABG O2 Content 24.3 (0.0-44) 08/12/20 14:55 POC ABG Base Excess 6.1 08/12/20 13:21 ABG Base Excess 2.6 mmol/L (-2.0-3.0) 08/12/20 14:55 ABG Hemoglobin 19.3 gm/dl (14.0-18.0) H 08/12/20 14:55 ABG Carboxyhemoglobin 1.7 % (0.0-5.0) 08/12/20 14:55 ABG Methemoglobin 0.5 % (0.0-1.5) 08/12/20 14:55 ABG Sodium 138.9 mmol/L (136.0-145.0) 08/12/20 13:21 ABG Potassium 4.9 mmol/L (3.40-4.50) H 08/12/20 13:21 ABG Chloride 100.0 mmol/L (98-107) 08/12/20 13:21 ABG Glucose 182 mg/dL (65-95) H 08/12/20 13:21 VBG pH 7.303 (7.320-7.420) L 08/10/20 08:29 Oxyhemoglobin 89.7 % (95.0-99.0) L 08/12/20 14:55 FiO2 60 % 08/12/20 14:55 FiO2 % 100.0 08/12/20 13:21 Sodium 141 mmol/L (137-145) 08/14/20 05:21 Sodium 141 mmol/L (137-145) 08/14/20 05:21 Potassium 4.5 mmol/L (3.6-5.0) 08/14/20 05:21 Potassium 4.5 mmol/L (3.6-5.0) 08/14/20 05:21 Chloride 99.2 mmol/L (98-107) 08/14/20 05:21 Chloride 99.2 mmol/L (98-107) 08/14/20 05:21 Carbon Dioxide 32 mmol/L (22-30) H 08/14/20 05:21 Carbon Dioxide 33 mmol/L (22-30) H 08/14/20 05:21 Anion Gap 13 mmol/L 08/14/20 05:21 Anion Gap 14 mmol/L 08/14/20 05:21 BUN 26 mg/dL (9-20) H 08/14/20 05:21 BUN 26 mg/dL (9-20) H 08/14/20 05:21 Creatinine 0.9 mg/dL (0.8-1.3) 08/14/20 05:21 Creatinine 0.9 mg/dL (0.8-1.3) 08/14/20 05:21 Estimated GFR > 60 ml/min 08/14/20 05:21 Estimated GFR > 60 ml/min 08/14/20 05:21 BUN/Creatinine Ratio 29 % 08/14/20 05:21 BUN/Creatinine Ratio 29 % 08/14/20 05:21 Glucose 152 mg/dL (75-100) H 08/14/20 05:21 Glucose 156 mg/dL (75-100) H 08/14/20 05:21 POC Glucose 139 mg/dL (70-105) H 08/14/20 05:58 Hemoglobin A1c 6.1 % (4-6) H 08/11/20 05:39 Lactic Acid 0.80 mmol/L (0.7-2.0) 08/10/20 11:18 Calcium 9.0 mg/dL (8.4-10.2) 08/14/20 05:21 Calcium 9.0 mg/dL (8.4-10.2) 08/14/20 05:21 Ferritin 1198.0 ng/mL (30.0-300.0) H 08/14/20 05:21 Total Bilirubin 0.50 mg/dL (0.1-1.2) 08/14/20 05:21 Total Bilirubin 0.60 mg/dL (0.1-1.2) 08/14/20 05:21 AST 53 units/L (5-40) H 08/14/20 05:21 AST 54 units/L (5-40) H 08/14/20 05:21 ALT 37 units/L (7-56) 08/14/20 05:21 ALT 37 units/L (7-56) 08/14/20 05:21 Alkaline Phosphatase 75 units/L (35-129) 08/14/20 05:21 Alkaline Phosphatase 75 units/L (35-129) 08/14/20 05:21 Lactate Dehydrogenase 1249 units/L (91-180) H 08/14/20 05:21 C-Reactive Protein 9.90 mg/dL (0.00-1.30) H 08/14/20 05:21 NT-Pro-B Natriuret Pep 36.40 pg/mL (0-450) 08/12/20 06:29 Total Protein 7.1 g/dL (6.3-8.2) 08/14/20 05:21 Total Protein 7.2 g/dL (6.3-8.2) 08/14/20 05:21 Albumin 3.7 g/dL (3.9-5) L 08/14/20 05:21 Albumin 3.7 g/dL (3.9-5) L 08/14/20 05:21 Albumin/Globulin Ratio 1.1 % 08/14/20 05:21 Albumin/Globulin Ratio 1.1 % 08/14/20 05:21 Procalcitonin 1.62 ng/mL (<0.15) 08/11/20 18:58 Arterial Blood Glucose 182 mg/dL (65-95) H 08/12/20 13:21 Arterial Blood Ionized Calcium 4.7 mg/dL (4.6-5.3) 08/12/20 13:21 Urine Color Yellow (Yellow) 08/10/20 Unknown Urine Turbidity Cloudy (Clear) 08/10/20 Unknown Urine pH 5.0 (5.0-7.0) 08/10/20 Unknown Ur Specific [place] 1.025 (1.003-1.030) 08/10/20 Unknown Urine Protein 30 mg/dl mg/dL (Negative) 08/10/20 Unknown Urine Glucose (UA) 150 mg/dL (Negative) 08/10/20 Unknown Urine Ketones Negative mg/dL (Negative) 08/10/20 Unknown Urine Blood Negative (Negative) 08/10/20 Unknown Urine Nitrite Negative (Negative) 08/10/20 Unknown Urine Bilirubin Negative (Negative) 08/10/20 Unknown Urine Urobilinogen < 2.0 mg/dL (<2.0) 08/10/20 Unknown Ur Leukocyte Esterase Negative (Negative) 08/10/20 Unknown Urine WBC (Auto) 5.0 /HPF (0.0-6.0) 08/10/20 Unknown Urine RBC (Auto) 2.0 /HPF (0.0-6.0) 08/10/20 Unknown U Epithel Cells (Auto) 1.0 /HPF (0-13.0) 08/10/20 Unknown Urine Bacteria (Auto) 1+ /HPF (Negative) 08/10/20 Unknown Urine Mucus 3+ /HPF 08/10/20 Unknown Coronavirus (PCR) Positive (Negative) A 08/11/20 Unknown Microbiology: Microbiology 08/10/20 08:29 Peripheral/Venous Blood Culture - Preliminary NO GROWTH AFTER 4 DAYS 08/10/20 08:29 Peripheral/Venous Blood Culture - Preliminary NO GROWTH AFTER 4 DAYS 08/10/20 Unknown Urine,Clean Catch Urine Culture - Final NO GROWTH AFTER 48 HOURS Gaytan/IV: Voiding Method Condom Catheter Active Medications - Current Medications Current Medications: Generic Name Dose Route Start Last Admin Trade Name Freq PRN Reason Stop Dose Admin Acetaminophen 650 mg 08/10/20 23:48 08/13/20 22:56 Acetaminophen 325 Mg Tab PO 650 mg Q4H PRN Administration Pain MILD(1-3)/Fever >100.5/MARTINEZ Ascorbic Acid 500 mg 08/12/20 10:00 08/14/20 10:15 Ascorbic Acid 500 Mg Tab PO Not Given BID MELANIE Dexamethasone 6 mg 08/12/20 10:00 08/14/20 10:14 Dexamethasone 4 Mg/Ml Vial IV 08/21/20 22:01 6 mg Q12HR MELANIE Administration Enoxaparin Sodium 150 mg 08/14/20 10:00 08/14/20 10:13 Enoxaparin 150 Mg/1 Ml Inj SUB-Q 150 mg Q12HR MELANIE Administration Famotidine 20 mg 08/11/20 10:00 08/14/20 10:16 Famotidine 20 Mg/2 Ml Inj IV 20 mg BID MELANIE Administration Azithromycin 500 mg in 250 mls @ 250 mls/hr 08/11/20 10:00 08/14/20 10:15 Zithromax/Ns IV 08/15/20 10:59 250 mls/hr Q24HR MELANIE Administration Ceftriaxone Sodium 2 gm in 100 mls @ 200 mls/hr 08/11/20 10:00 08/14/20 10:13 Rocephin/Ns 2 Gm/100 Ml IV 08/15/20 10:29 200 mls/hr Q24HR MELANIE Administration Protocol REMDESIVIR 100 mg/ Sodium 250 mls @ 500 mls/hr 08/12/20 21:00 Chloride IV 08/17/20 21:29 [id number] MELANIE Metoclopramide HCl 10 mg 08/10/20 23:48 Metoclopramide 10 Mg/2 Ml Inj IV Q6H PRN Nausea And Vomiting Miscellaneous Medication 800 mg 08/14/20 12:44 Actemra IV 08/14/20 12:45 ONCE ONE Morphine Sulfate 2 mg 08/10/20 23:48 Morphine 2 Mg/1 Ml Inj IV Q4H PRN Pain, Moderate (4-6) Ondansetron HCl 4 mg 08/10/20 23:48 Ondansetron 4 Mg/2 Ml Inj IV Q8H PRN Nausea And Vomiting Oxycodone/Acetaminophen 1 tab 08/10/20 23:48 Oxycodone /Acetaminophen 5-325mg Tab PO Q6H PRN Pain, Moderate (4-6) Sodium Chloride 10 ml 08/11/20 10:00 08/14/20 10:15 Sodium Chloride 0.9% 10 Ml Flush Syringe IV 10 ml BID MELANIE Administration Sodium Chloride 10 ml 08/10/20 23:48 08/12/20 21:04 Sodium Chloride 0.9% 10 Ml Flush Syringe IV 10 ml PRN PRN Administration LINE FLUSH Sodium Chloride 50 ml 08/11/20 21:00 08/12/20 21:30 Sodium Chloride 0.9% 50 Ml Ivpb IV 08/16/20 21:01 Not Given [id number] [facility] Zinc Sulfate 220 mg 08/12/20 12:00 08/14/20 10:15 Zinc Sulfate 220 Mg Cap PO Not Given QDAY MELANIE
[2020-08-14] MEDS: REMDESIVIR 100 MG in SODIUM CHLORIDE 0.9% 250ML 250 ML IV SCH (14:13)
[2020-08-14] MEDS ORDERED: TOCILIZUMAB 800 MG in SODIUM CHLORIDE 0.9% 100 ML IV ONE (16:00)
[2020-08-14] MEDS: SODIUM CHLORIDE 0.9% 50 ML IVPB IV SCH (21:00)
[2020-08-15 06:02] LABS: Hematocrit 38.7 % (35.5-45.6); Mean Corpuscular HGB Conc 34 % (32-34); Mean Corpuscular Volume 88 fl (84-94); Platelet Count 215 K/mm3 (140-440); Red Cell Distribution Width 13.3 % (13.2-15.2)
[2020-08-15 06:52] LABS: Alanine Aminotransferase 31 units/L (7-56); Albumin 3.5 g/dL (3.9-5); BUN/Creatinine Ratio 29; Blood Urea Nitrogen 29 mg/dL (9-20); Calcium 8.9 mg/dL (8.4-10.2); Hemolysis Index 0
[2020-08-15 07:12] LABS: Total Cells Counted 100
[2020-08-15 07:13] LABS: Anisocytosis 1+; Platelet Estimate Consistent w Auto; Toxic Granulation 1+
[2020-08-15] MEDS: cefTRIAXone/NS 2 GM/100 ML 2 GM/100 ML BAG IV SCH (10:21)
[2020-08-15] MEDS: dexAMETHasone 4 MG/ML VIAL IV SCH ×2 (10:22→22:25)
[2020-08-15] MEDS: ENOXAPARIN 150 MG/1 ML INJ SUB-Q SCH ×2 (10:23→22:13)
[2020-08-15] MEDS: FAMOTIDINE 20 MG/2 ML INJ IV SCH ×2 (10:24→22:13)
[2020-08-15] MEDS: ASCORBIC ACID 500 MG TAB PO SCH ×2 (10:25→22:03)
[2020-08-15] MEDS: ZINC SULFATE 220 MG CAP PO SCH (10:26)
[2020-08-15] MEDS ORDERED: FUROSEMIDE 20 MG/2 ML INJ IV ONE (10:30)
--- NOTE | 2020-08-15 10:35 | Progress Note ---
Assessment and Plan Assessment and plan: #Acute hypoxic respiratory failure secondary to COVID-19 PNA Continue oxygen supplementation with BIPAP #COVID-19 Pneumonia Continue antibiotics Continue steroids Remdesivir s/p tocilizumab Oxygen supplementation with BiPAP Trend inflammatory markers Prone positioning strongly advised ID and pulmonology following #Right lower extremity DVT D-dimer more than 10,000 US shows RLE DVT. Echocardiogram shows no right heart strain. Now on Lovenox 150 mg twice daily #Morbid obesity Diet and exercise advised #DVT prophylaxis-Lovenox History Interval history: 30-year-old male with morbid obesity weighing about 310 pounds comes in for intermittent frontal headache for 3 days. In the emergency room patient was very hypoxic but denies shortness of breath or cough. No muscle aches. His oxygen levels are mid 80s. Denies smoking. Work-up in the emergency room showed bilateral patchy opacities in the lungs and hypoxia-hence he was admitted for bilateral pneumonia and possible Covid pneumonia. No significant past medical history 08/11. Patient seen examined at bedside this morning. Has no complaints. Febrile this a.m.-103 Fahrenheit. On Tylenol as needed. COVID-19 test ordered. Remains on steroids. ID consult if COVID-19 is positive. 08/12. His COVID-19 test is positive. He was started on remdesivir last night. Oxygen requirement increased overnight. Inflammatory markers increasing. Repeat chest xray shows worsening infiltrates. Ordered BNP. Lasix 40mg IV ordered. Increased dexamethasone to 6mg BID. Pulmonology consulted. Will place on continuous pulse oximetry. Incentive spirometer ordered. Advised prone positioning. 08/13. Not feeling better. Seen on BIPAP. Remains on steroids, remdesivir and antibiotics. Vitals stable. 08/14. Still maintaining sats even on BiPAP. Lasix 40 mg IV ordered. D-dimer this a.m. is more than 10,000. Lovenox increased to 150 mg twice daily. Ultrasound lower extremities Doppler showed a right DVT. Echocardiogram ordered to rule out right heart strain. Pending results, patient may need vascular surgery evaluation for possible thrombectomy. Continue on BiPAP and continue to monitor respiratory status closely. 08/15. Sats better this AM. Received toculizumab yesterday. Advised him to prone as much as possible. Echo shows normal EF with no right heart strain. I/Os reviewed. He is diuresing well. Renal function is stable. Will give additional lasix today. Pulmonology following Hospitalist Physical - Physical exam Narrative exam: VITAL SIGNS: Reviewed. GENERAL: Awake HEAD: No signs of head trauma. EYES: Pupils are equal. Extraocular motions intact. MOUTH: Oropharynx is normal. NECK: No adenopathy, no JVD. CHEST: Chest with diminished breath sounds bilaterally. No wheezes, rales, or rhonchi. CARDIAC: normal S1 and S2, without murmurs, gallops, or rubs. ABDOMEN: Soft, non tender and non distended. No rebound or guarding, and no masses palpated. Bowel Sounds normal. MUSCULOSKELETAL: No edema NEUROLOGIC EXAM: Alert and oriented x3. No focal neurologic deficits SKIN: No obvious lesions - Constitutional Vitals: Temp Pulse Resp BP Pulse Ox 99.8 F H 50 L 22 141/86 92 08/15/20 08:00 08/15/20 10:07 08/15/20 10:07 08/15/20 10:07 08/15/20 10:07 Results - Labs CBC & Chem 7: 08/15/20 05:16 08/15/20 05:16 Labs: Laboratory Last Values WBC 13.7 K/mm3 (4.5-11.0) H 08/15/20 05:16 RBC 4.40 M/mm3 (3.65-5.03) 08/15/20 05:16 Hgb 13.0 gm/dl (11.8-15.2) 08/15/20 05:16 Hct 38.7 % (35.5-45.6) 08/15/20 05:16 MCV 88 fl (84-94) 08/15/20 05:16 MCH 30 pg (28-32) 08/15/20 05:16 MCHC 34 % (32-34) 08/15/20 05:16 RDW 13.3 % (13.2-15.2) 08/15/20 05:16 Plt Count 215 K/mm3 (140-440) 08/15/20 05:16 Lymph % (Auto) 8.2 % (13.4-35.0) L 08/14/20 05:21 [place] % (Auto) 6.3 % (0.0-7.3) 08/14/20 05:21 Eos % (Auto) 0.0 % (0.0-4.3) 08/14/20 05:21 Baso % (Auto) 0.1 % (0.0-1.8) 08/14/20 05:21 Lymph # (Auto) 1.2 K/mm3 (1.2-5.4) 08/14/20 05:21 [place] # (Auto) 0.9 K/mm3 (0.0-0.8) H 08/14/20 05:21 Eos # (Auto) 0.0 K/mm3 (0.0-0.4) 08/14/20 05:21 Baso # (Auto) 0.0 K/mm3 (0.0-0.1) 08/14/20 05:21 Add Manual Diff Complete 08/15/20 05:16 Total Counted 100 08/15/20 05:16 Seg Neutrophils % 85.4 % (40.0-70.0) H 08/14/20 05:21 Seg Neuts % (Manual) 91.0 % (40.0-70.0) H 08/15/20 05:16 Lymphocytes % (Manual) 7.0 % (13.4-35.0) L 08/15/20 05:16 Metamyelocytes % 2.0 % 08/15/20 05:16 Nucleated RBC % Not Reportable 08/15/20 05:16 Seg Neutrophils # 12.2 K/mm3 (1.8-7.7) H 08/14/20 05:21 Seg Neutrophils # Man 12.5 K/mm3 (1.8-7.7) H 08/15/20 05:16 Band Neutrophils # 0.0 K/mm3 08/15/20 05:16 Lymphocytes # (Manual) 1.0 K/mm3 (1.2-5.4) L 08/15/20 05:16 Abs React Lymphs (Man) 0.0 K/mm3 08/15/20 05:16 Monocytes # (Manual) 0.0 K/mm3 (0.0-0.8) 08/15/20 05:16 Eosinophils # (Manual) 0.0 K/mm3 (0.0-0.4) 08/15/20 05:16 Basophils # (Manual) 0.0 K/mm3 (0.0-0.1) 08/15/20 05:16 Metamyelocytes # 0.3 K/mm3 08/15/20 05:16 Myelocytes # 0.0 K/mm3 08/15/20 05:16 Promyelocytes # 0.0 K/mm3 08/15/20 05:16 Blast Cells # 0.0 K/mm3 08/15/20 05:16 WBC Morphology Not Reportable 08/15/20 05:16 Hypersegmented Neuts Not Reportable 08/15/20 05:16 Hyposegmented Neuts Not Reportable 08/15/20 05:16 Hypogranular Neuts Not Reportable 08/15/20 05:16 Smudge Cells Not Reportable 08/15/20 05:16 Toxic Granulation 1+ 08/15/20 05:16 Toxic Vacuolation Not Reportable 08/15/20 05:16 Dohle Bodies Not Reportable 08/15/20 05:16 Pelger-Huet Anomaly Not Reportable 08/15/20 05:16 Juan Luis Rods Not Reportable 08/15/20 05:16 Platelet Estimate Consistent w auto 08/15/20 05:16 Clumped Platelets Not Reportable 08/15/20 05:16 Plt Clumps, EDTA Not Reportable 08/15/20 05:16 Large Platelets Not Reportable 08/15/20 05:16 Giant Platelets Not Reportable 08/15/20 05:16 Platelet Satelliting Not Reportable 08/15/20 05:16 Plt Morphology Comment Not Reportable 08/15/20 05:16 RBC Morphology Not Reportable 08/15/20 05:16 Dimorphic RBCs Not Reportable 08/15/20 05:16 Polychromasia Rare 08/15/20 05:16 Hypochromasia Not Reportable 08/15/20 05:16 Poikilocytosis Not Reportable 08/15/20 05:16 Anisocytosis 1+ 08/15/20 05:16 Microcytosis Not Reportable 08/15/20 05:16 Macrocytosis Not Reportable 08/15/20 05:16 Spherocytes Not Reportable 08/15/20 05:16 Pappenheimer Bodies Not Reportable 08/15/20 05:16 Sickle Cells Not Reportable 08/15/20 05:16 Target Cells Not Reportable 08/15/20 05:16 Tear Drop Cells Not Reportable 08/15/20 05:16 Ovalocytes Not Reportable 08/15/20 05:16 Helmet Cells Not Reportable 08/15/20 05:16 [place] Bodies Not Reportable 08/15/20 05:16 [place] Rings Not Reportable 08/15/20 05:16 [place] Cells Not Reportable 08/15/20 05:16 Bite Cells Not Reportable 08/15/20 05:16 Crenated Cell Not Reportable 08/15/20 05:16 Elliptocytes Not Reportable 08/15/20 05:16 Acanthocytes (Spur) Not Reportable 08/15/20 05:16 Rouleaux Not Reportable 08/15/20 05:16 Hemoglobin C Crystals Not Reportable 08/15/20 05:16 Schistocytes Not Reportable 08/15/20 05:16 Malaria parasites Not Reportable 08/15/20 05:16 Asif Bodies Not Reportable 08/15/20 05:16 Hem Pathologist Commnt No 08/15/20 05:16 PT 12.6 Sec. (12.2-14.9) 08/10/20 08:29 INR 0.96 (0.87-1.13) 08/10/20 08:29 D-Dimer > 81018 ng/mlDDU (0-234) H 08/14/20 05:21 ABG pH 7.443 (7.320-7.450) 08/14/20 08:23 POC ABG pCO2 46.9 mmHg (32.0-48.0) 08/14/20 08:23 ABG pCO2 62.9 mm Hg 08/12/20 14:55 POC ABG pO2 50.0 mmHg (83-108) L 08/14/20 08:23 ABG pO2 65.8 mm Hg (80.0-90.0) L 08/12/20 14:55 POC ABG HCO3 31.4 08/14/20 08:23 ABG HCO3 31.4 mmol/L (20.0-26.0) H 08/12/20 14:55 ABG O2 Saturation 85.0 (0-100) 08/14/20 08:23 ABG O2 Content 24.3 (0.0-44) 08/12/20 14:55 POC ABG Base Excess 6.3 08/14/20 08:23 ABG Base Excess 2.6 mmol/L (-2.0-3.0) 08/12/20 14:55 ABG Hemoglobin 13.4 (12.0-17.5) 08/14/20 08:23 ABG Oxyhemoglobin 84.0 (94-98) L 08/14/20 08:23 ABG Carboxyhemoglobin 1.7 % (0.0-5.0) 08/12/20 14:55 ABG Methemoglobin 0.3 (0.0-1.5) 08/14/20 08:23 ABG Sodium 139.2 mmol/L (136.0-145.0) 08/14/20 08:23 ABG Potassium 4.5 mmol/L (3.40-4.50) 08/14/20 08:23 ABG Chloride 99.0 mmol/L (98-107) 08/14/20 08:23 ABG Glucose 141 mg/dL (65-95) H 08/14/20 08:23 VBG pH 7.303 (7.320-7.420) L 08/10/20 08:29 Oxyhemoglobin 89.7 % (95.0-99.0) L 08/12/20 14:55 Carboxyhemoglobin 0.9 (0.5-1.5) 08/14/20 08:23 FiO2 60 % 08/12/20 14:55 FiO2 % 100 08/14/20 08:23 Sodium 142 mmol/L (137-145) 08/15/20 05:16 Potassium 4.5 mmol/L (3.6-5.0) 08/15/20 05:16 Chloride 100.1 mmol/L (98-107) 08/15/20 05:16 Carbon Dioxide 32 mmol/L (22-30) H 08/15/20 05:16 Anion Gap 14 mmol/L 08/15/20 05:16 BUN 29 mg/dL (9-20) H 08/15/20 05:16 Creatinine 1.0 mg/dL (0.8-1.3) 08/15/20 05:16 Estimated GFR > 60 ml/min 08/15/20 05:16 BUN/Creatinine Ratio 29 % 08/15/20 05:16 Glucose 150 mg/dL (75-100) H 08/15/20 05:16 POC Glucose 139 mg/dL (70-105) H 08/14/20 05:58 Hemoglobin A1c 6.1 % (4-6) H 08/11/20 05:39 Lactic Acid 0.80 mmol/L (0.7-2.0) 08/10/20 11:18 Calcium 8.9 mg/dL (8.4-10.2) 08/15/20 05:16 Ferritin 1198.0 ng/mL (30.0-300.0) H 08/14/20 05:21 Total Bilirubin 0.50 mg/dL (0.1-1.2) 08/15/20 05:16 AST 33 units/L (5-40) 08/15/20 05:16 ALT 31 units/L (7-56) 08/15/20 05:16 Alkaline Phosphatase 80 units/L (35-129) 08/15/20 05:16 Lactate Dehydrogenase 1150 units/L (91-180) H 08/15/20 05:16 C-Reactive Protein 9.90 mg/dL (0.00-1.30) H 08/14/20 05:21 NT-Pro-B Natriuret Pep 36.40 pg/mL (0-450) 08/12/20 06:29 Total Protein 7.1 g/dL (6.3-8.2) 08/15/20 05:16 Albumin 3.5 g/dL (3.9-5) L 08/15/20 05:16 Albumin/Globulin Ratio 1.0 % 08/15/20 05:16 Procalcitonin 1.62 ng/mL (<0.15) 08/11/20 18:58 Arterial Blood Glucose 141 mg/dL (65-95) H 08/14/20 08:23 Arterial Blood Ionized Calcium 4.8 mg/dL (4.6-5.3) 08/14/20 08:23 Urine Color Yellow (Yellow) 08/10/20 Unknown Urine Turbidity Cloudy (Clear) 08/10/20 Unknown Urine pH 5.0 (5.0-7.0) 08/10/20 Unknown Ur Specific [place] 1.025 (1.003-1.030) 08/10/20 Unknown Urine Protein 30 mg/dl mg/dL (Negative) 08/10/20 Unknown Urine Glucose (UA) 150 mg/dL (Negative) 08/10/20 Unknown Urine Ketones Negative mg/dL (Negative) 08/10/20 Unknown Urine Blood Negative (Negative) 08/10/20 Unknown Urine Nitrite Negative (Negative) 08/10/20 Unknown Urine Bilirubin Negative (Negative) 08/10/20 Unknown Urine Urobilinogen < 2.0 mg/dL (<2.0) 08/10/20 Unknown Ur Leukocyte Esterase Negative (Negative) 08/10/20 Unknown Urine WBC (Auto) 5.0 /HPF (0.0-6.0) 08/10/20 Unknown Urine RBC (Auto) 2.0 /HPF (0.0-6.0) 08/10/20 Unknown U Epithel Cells (Auto) 1.0 /HPF (0-13.0) 08/10/20 Unknown Urine Bacteria (Auto) 1+ /HPF (Negative) 08/10/20 Unknown Urine Mucus 3+ /HPF 08/10/20 Unknown Coronavirus (PCR) Positive (Negative) A 08/11/20 Unknown Microbiology: Microbiology 08/10/20 08:29 Peripheral/Venous Blood Culture - Final NO GROWTH AFTER 5 DAYS 08/10/20 08:29 Peripheral/Venous Blood Culture - Final NO GROWTH AFTER 5 DAYS Gaytan/IV: Voiding Method Condom Catheter Active Medications - Current Medications Current Medications: Generic Name Dose Route Start Last Admin Trade Name Freq PRN Reason Stop Dose Admin Acetaminophen 650 mg 08/10/20 23:48 08/13/20 22:56 Acetaminophen 325 Mg Tab PO 650 mg Q4H PRN Administration Pain MILD(1-3)/Fever >100.5/MARTINEZ Ascorbic Acid 500 mg 08/12/20 10:00 08/14/20 22:55 Ascorbic Acid 500 Mg Tab PO 500 mg BID MELANIE Administration Dexamethasone 6 mg 08/12/20 10:00 08/14/20 22:55 Dexamethasone 4 Mg/Ml Vial IV 08/21/20 22:01 6 mg Q12HR MELANIE Administration Enoxaparin Sodium 150 mg 08/14/20 10:00 08/14/20 22:55 Enoxaparin 150 Mg/1 Ml Inj SUB-Q 150 mg Q12HR MELANIE Administration Famotidine 20 mg 08/11/20 10:00 08/14/20 22:55 Famotidine 20 Mg/2 Ml Inj IV 20 mg BID MELANIE Administration Furosemide 40 mg 08/15/20 10:30 Furosemide 20 Mg/2 Ml Inj IV 08/15/20 10:31 ONCE ONE Azithromycin 500 mg in 250 mls @ 250 mls/hr 08/11/20 10:00 08/14/20 10:15 Zithromax/Ns IV 08/15/20 10:59 250 mls/hr Q24HR MELANIE Administration REMDESIVIR 100 mg/ Sodium 250 mls @ 500 mls/hr 08/14/20 15:00 08/14/20 14:13 Chloride IV 08/17/20 21:29 500 mls/hr Q24HR@2100 MELANIE Administration Metoclopramide HCl 10 mg 08/10/20 23:48 Metoclopramide 10 Mg/2 Ml Inj IV Q6H PRN Nausea And Vomiting Morphine Sulfate 2 mg 08/10/20 23:48 Morphine 2 Mg/1 Ml Inj IV Q4H PRN Pain, Moderate (4-6) Ondansetron HCl 4 mg 08/10/20 23:48 Ondansetron 4 Mg/2 Ml Inj IV Q8H PRN Nausea And Vomiting Oxycodone/Acetaminophen 1 tab 08/10/20 23:48 Oxycodone /Acetaminophen 5-325mg Tab PO Q6H PRN Pain, Moderate (4-6) Sodium Chloride 10 ml 08/11/20 10:00 08/14/20 22:56 Sodium Chloride 0.9% 10 Ml Flush Syringe IV 10 ml BID MELANIE Administration Sodium Chloride 10 ml 08/10/20 23:48 08/12/20 21:04 Sodium Chloride 0.9% 10 Ml Flush Syringe IV 10 ml PRN PRN Administration LINE FLUSH Sodium Chloride 50 ml 08/14/20 21:00 08/14/20 21:00 Sodium Chloride 0.9% 50 Ml Ivpb IV 08/17/20 21:01 50 ml Q24HR@2100 MELANIE Administration Zinc Sulfate 220 mg 08/12/20 12:00 08/14/20 10:15 Zinc Sulfate 220 Mg Cap PO Not Given QDAY MELANIE
[2020-08-15] MEDS: AZITHROMYCIN/NS 500 MG/250 ML 500 MG/250 ML BAG IV SCH (11:08)
--- NOTE | 2020-08-15 11:31 | Progress Note ---
Assessment and Plan 30 y/o morbidly obese male with acute respiratory failure secondary to COVID 19 pneumonia. 08/15/20: Continue therapeutic anticoagulation. No current indication for vascular consult given no evidence of right heart strain on echo. CT would only be beneficial if we thought it would show large enough clot to warrant EKOS and with no evidence of strain, I doubt that will be the case. Continue proning as much as tolerated. Spoke with mother over the phone to update her. Patient also got actemra on yesterday as well. Prognosis remains guarded 08/14/20: Will accept sats in the mid 80's as long as mental state and work of breathing do not change. AGree with lasix therapy. Found to have large DVT on right. Spoke with [facility] and asked them to order stat echo to look for right heart strain, and if present may need to consider echos. Await echo before vascular consult. Prone if possible. Long discussion with mother on phone. Gave her a list of the meds he is on and what our current plan is. Also very candid with her and son at bedside that the mortality rate with COVID is very very high. 08/13/20: Lasix again today. Continue to alternate between HFNC with NRB and bipap. Prognosis is very very guarded. Very very guarded to poor prognosis given CXR appearance, and body habitus, along with rapid decline in self sustaning oxygen levels. Agree with lasix and increase in steroids. Must prone. Very high likelihood for mechanical ventilation which would carry a high mortality for patient. Will continue to follow. No additional IVF's unless indicated. Subjective Date of service: 08/15/20 Interval history: No acute events. Acute DVT in right limb. Echo with no evidence of right heart strain, just diastolic dysfunction. Remainder is negative. Does much better proned. Objective Vital Signs - 12hr 08/14/20 08/14/20 08/15/20 23:30 23:54 00:00 Temperature 99.2 F Pulse Rate 64 55 L Pulse Rate [ From Monitor] Respiratory 29 H Rate Blood Pressure 150/87 150/87 O2 Sat by Pulse 86 Oximetry 08/15/20 08/15/20 08/15/20 00:30 01:00 01:30 Temperature Pulse Rate 54 L 56 L 55 L Pulse Rate [ From Monitor] Respiratory Rate Blood Pressure 143/77 157/97 157/97 O2 Sat by Pulse 87 87 93 Oximetry 08/15/20 08/15/20 08/15/20 02:00 02:30 03:00 Temperature Pulse Rate 54 L 52 L 54 L Pulse Rate [ From Monitor] Respiratory Rate Blood Pressure 168/99 168/99 149/88 O2 Sat by Pulse 91 91 88 Oximetry 08/15/20 08/15/20 08/15/20 03:29 03:30 04:00 Temperature 100.3 F H Pulse Rate 55 L 66 Pulse Rate [ 66 From Monitor] Respiratory 20 Rate Blood Pressure 149/88 141/80 O2 Sat by Pulse 87 88 Oximetry 08/15/20 08/15/20 08/15/20 04:30 04:45 05:00 Temperature Pulse Rate 53 L 50 L 50 L Pulse Rate [ From Monitor] Respiratory Rate Blood Pressure 141/80 145/84 O2 Sat by Pulse 96 92 Oximetry 08/15/20 08/15/20 08/15/20 05:28 05:30 06:00 Temperature Pulse Rate 50 L 52 L 48 L Pulse Rate [ From Monitor] Respiratory 21 Rate Blood Pressure 145/84 141/80 136/77 O2 Sat by Pulse 93 93 90 Oximetry 08/15/20 08/15/20 08/15/20 06:30 07:00 08:00 Temperature 99.8 F H Pulse Rate 53 L 51 L Pulse Rate [ From Monitor] Respiratory Rate Blood Pressure 136/77 136/81 O2 Sat by Pulse 90 95 Oximetry 08/15/20 08/15/20 10:05 10:07 Temperature Pulse Rate 50 L Pulse Rate [ From Monitor] Respiratory 22 Rate Blood Pressure 141/86 O2 Sat by Pulse 92 92 Oximetry CBC and BMP: 08/15/20 05:16 08/15/20 05:16 ABG, PT/INR, D-dimer: ABG ABG pH 7.443 (7.320-7.450) 08/14/20 08:23 POC ABG pCO2 46.9 mmHg (32.0-48.0) 08/14/20 08:23 ABG pCO2 62.9 mm Hg 08/12/20 14:55 POC ABG pO2 50.0 mmHg (83-108) L 08/14/20 08:23 ABG pO2 65.8 mm Hg (80.0-90.0) L 08/12/20 14:55 POC ABG HCO3 31.4 08/14/20 08:23 ABG O2 Saturation 85.0 (0-100) 08/14/20 08:23 PT/INR, D-dimer PT 12.6 Sec. (12.2-14.9) 08/10/20 08:29 INR 0.96 (0.87-1.13) 08/10/20 08:29 D-Dimer > 49183 ng/mlDDU (0-234) H 08/14/20 05:21 Abnormal lab findings: Abnormal Labs 08/10/20 08/10/20 08/10/20 08:29 08:29 08:29 WBC Lymph % (Auto) [place] % (Auto) 8.4 H Lymph # (Auto) [place] # (Auto) Seg Neutrophils % Seg Neuts % (Manual) Lymphocytes % (Manual) Seg Neutrophils # Seg Neutrophils # Man Lymphocytes # (Manual) D-Dimer ABG pH POC ABG pCO2 POC ABG pO2 ABG pO2 ABG HCO3 ABG O2 Saturation ABG Hemoglobin ABG Oxyhemoglobin ABG Potassium ABG Glucose VBG pH 7.303 L Oxyhemoglobin Potassium Carbon Dioxide BUN Glucose 132 H POC Glucose Hemoglobin A1c Ferritin AST Lactate Dehydrogenase C-Reactive Protein Albumin Arterial Blood Glucose Coronavirus (PCR) 08/11/20 08/11/20 08/11/20 05:39 05:39 05:39 WBC Lymph % (Auto) 12.5 L [place] % (Auto) Lymph # (Auto) [place] # (Auto) Seg Neutrophils % 84.2 H Seg Neuts % (Manual) Lymphocytes % (Manual) Seg Neutrophils # 9.1 H Seg Neutrophils # Man Lymphocytes # (Manual) D-Dimer ABG pH POC ABG pCO2 POC ABG pO2 ABG pO2 ABG HCO3 ABG O2 Saturation ABG Hemoglobin ABG Oxyhemoglobin ABG Potassium ABG Glucose VBG pH Oxyhemoglobin Potassium Carbon Dioxide BUN Glucose 125 H POC Glucose Hemoglobin A1c 6.1 H Ferritin AST Lactate Dehydrogenase C-Reactive Protein Albumin Arterial Blood Glucose Coronavirus (PCR) 08/11/20 08/11/20 08/11/20 18:58 18:58 18:58 WBC Lymph % (Auto) [place] % (Auto) Lymph # (Auto) [place] # (Auto) Seg Neutrophils % Seg Neuts % (Manual) Lymphocytes % (Manual) Seg Neutrophils # Seg Neutrophils # Man Lymphocytes # (Manual) D-Dimer 464.84 H ABG pH POC ABG pCO2 POC ABG pO2 ABG pO2 ABG HCO3 ABG O2 Saturation ABG Hemoglobin ABG Oxyhemoglobin ABG Potassium ABG Glucose VBG pH Oxyhemoglobin Potassium Carbon Dioxide BUN Glucose POC Glucose Hemoglobin A1c Ferritin 528.7 H AST Lactate Dehydrogenase 637 H C-Reactive Protein 11.30 H Albumin Arterial Blood Glucose Coronavirus (PCR) 08/11/20 08/11/20 08/12/20 19:08 Unknown 06:29 WBC 11.2 H Lymph % (Auto) 8.6 L [place] % (Auto) Lymph # (Auto) 1.0 L [place] # (Auto) Seg Neutrophils % 88.3 H Seg Neuts % (Manual) Lymphocytes % (Manual) Seg Neutrophils # 9.8 H Seg Neutrophils # Man Lymphocytes # (Manual) D-Dimer ABG pH POC ABG pCO2 POC ABG pO2 ABG pO2 ABG HCO3 ABG O2 Saturation ABG Hemoglobin ABG Oxyhemoglobin ABG Potassium ABG Glucose VBG pH Oxyhemoglobin Potassium Carbon Dioxide BUN Glucose 161 H POC Glucose Hemoglobin A1c Ferritin AST Lactate Dehydrogenase C-Reactive Protein Albumin Arterial Blood Glucose Coronavirus (PCR) Positive A 08/12/20 08/12/20 08/12/20 06:29 06:29 06:29 WBC Lymph % (Auto) [place] % (Auto) Lymph # (Auto) [place] # (Auto) Seg Neutrophils % Seg Neuts % (Manual) Lymphocytes % (Manual) Seg Neutrophils # Seg Neutrophils # Man Lymphocytes # (Manual) D-Dimer 830.34 H ABG pH POC ABG pCO2 POC ABG pO2 ABG pO2 ABG HCO3 ABG O2 Saturation ABG Hemoglobin ABG Oxyhemoglobin ABG Potassium ABG Glucose VBG pH Oxyhemoglobin Potassium Carbon Dioxide 31 H BUN Glucose 138 H POC Glucose Hemoglobin A1c Ferritin 572.6 H AST 42 H Lactate Dehydrogenase 706 H C-Reactive Protein 17.30 H Albumin 3.7 L Arterial Blood Glucose Coronavirus (PCR) 08/12/20 08/12/20 08/12/20 13:21 14:55 21:59 WBC Lymph % (Auto) [place] % (Auto) Lymph # (Auto) [place] # (Auto) Seg Neutrophils % Seg Neuts % (Manual) Lymphocytes % (Manual) Seg Neutrophils # Seg Neutrophils # Man Lymphocytes # (Manual) D-Dimer ABG pH 7.315 L POC ABG pCO2 57.1 H POC ABG pO2 47.8 L ABG pO2 65.8 L ABG HCO3 31.4 H ABG O2 Saturation 91.7 L ABG Hemoglobin 19.3 H ABG Oxyhemoglobin ABG Potassium 4.9 H ABG Glucose 182 H VBG pH Oxyhemoglobin 89.7 L Potassium Carbon Dioxide BUN Glucose POC Glucose 142 H Hemoglobin A1c Ferritin AST Lactate Dehydrogenase C-Reactive Protein Albumin Arterial Blood Glucose 182 H Coronavirus (PCR) 08/13/20 08/13/20 08/13/20 05:35 05:35 12:11 WBC 12.0 H Lymph % (Auto) 8.1 L [place] % (Auto) Lymph # (Auto) 1.0 L [place] # (Auto) Seg Neutrophils % 88.0 H Seg Neuts % (Manual) Lymphocytes % (Manual) Seg Neutrophils # 10.5 H Seg Neutrophils # Man Lymphocytes # (Manual) D-Dimer ABG pH POC ABG pCO2 POC ABG pO2 ABG pO2 ABG HCO3 ABG O2 Saturation ABG Hemoglobin ABG Oxyhemoglobin ABG Potassium ABG Glucose VBG pH Oxyhemoglobin Potassium 5.1 H Carbon Dioxide 31 H BUN 25 H Glucose 174 H POC Glucose 154 H Hemoglobin A1c Ferritin AST 41 H Lactate Dehydrogenase 996 H C-Reactive Protein Albumin 3.8 L Arterial Blood Glucose Coronavirus (PCR) 08/13/20 08/13/20 08/14/20 16:18 23:24 05:21 WBC 14.2 H Lymph % (Auto) 8.2 L [place] % (Auto) Lymph # (Auto) [place] # (Auto) 0.9 H Seg Neutrophils % 85.4 H Seg Neuts % (Manual) Lymphocytes % (Manual) Seg Neutrophils # 12.2 H Seg Neutrophils # Man Lymphocytes # (Manual) D-Dimer ABG pH POC ABG pCO2 POC ABG pO2 ABG pO2 ABG HCO3 ABG O2 Saturation ABG Hemoglobin ABG Oxyhemoglobin ABG Potassium ABG Glucose VBG pH Oxyhemoglobin Potassium Carbon Dioxide BUN Glucose POC Glucose 188 H 127 H Hemoglobin A1c Ferritin AST Lactate Dehydrogenase C-Reactive Protein Albumin Arterial Blood Glucose Coronavirus (PCR) 08/14/20 08/14/20 08/14/20 05:21 05:21 05:21 WBC Lymph % (Auto) [place] % (Auto) Lymph # (Auto) [place] # (Auto) Seg Neutrophils % Seg Neuts % (Manual) Lymphocytes % (Manual) Seg Neutrophils # Seg Neutrophils # Man Lymphocytes # (Manual) D-Dimer > 75430 H ABG pH POC ABG pCO2 POC ABG pO2 ABG pO2 ABG HCO3 ABG O2 Saturation ABG Hemoglobin ABG Oxyhemoglobin ABG Potassium ABG Glucose VBG pH Oxyhemoglobin Potassium Carbon Dioxide 32 H 33 H BUN 26 H 26 H Glucose 152 H 156 H POC Glucose Hemoglobin A1c Ferritin AST 53 H 54 H Lactate Dehydrogenase 1249 H C-Reactive Protein 9.90 H Albumin 3.7 L 3.7 L Arterial Blood Glucose Coronavirus (PCR) 08/14/20 08/14/20 08/14/20 05:21 05:58 08:23 WBC Lymph % (Auto) [place] % (Auto) Lymph # (Auto) [place] # (Auto) Seg Neutrophils % Seg Neuts % (Manual) Lymphocytes % (Manual) Seg Neutrophils # Seg Neutrophils # Man Lymphocytes # (Manual) D-Dimer ABG pH POC ABG pCO2 POC ABG pO2 50.0 L ABG pO2 ABG HCO3 ABG O2 Saturation ABG Hemoglobin ABG Oxyhemoglobin 84.0 L ABG Potassium ABG Glucose 141 H VBG pH Oxyhemoglobin Potassium Carbon Dioxide BUN Glucose POC Glucose 139 H Hemoglobin A1c Ferritin 1198.0 H AST Lactate Dehydrogenase C-Reactive Protein Albumin Arterial Blood Glucose 141 H Coronavirus (PCR) 08/15/20 08/15/20 05:16 05:16 WBC 13.7 H Lymph % (Auto) [place] % (Auto) Lymph # (Auto) [place] # (Auto) Seg Neutrophils % Seg Neuts % (Manual) 91.0 H Lymphocytes % (Manual) 7.0 L Seg Neutrophils # Seg Neutrophils # Man 12.5 H Lymphocytes # (Manual) 1.0 L D-Dimer ABG pH POC ABG pCO2 POC ABG pO2 ABG pO2 ABG HCO3 ABG O2 Saturation ABG Hemoglobin ABG Oxyhemoglobin ABG Potassium ABG Glucose VBG pH Oxyhemoglobin Potassium Carbon Dioxide 32 H BUN 29 H Glucose 150 H POC Glucose Hemoglobin A1c Ferritin AST Lactate Dehydrogenase 1150 H C-Reactive Protein Albumin 3.5 L Arterial Blood Glucose Coronavirus (PCR)
--- NOTE | 2020-08-15 13:22 | Progress Note ---
Assessment and Plan Cultures: Blood culture 08/10/2020 no growth SARS CoV2 PCR positive 08/10/2020 urine culture: No growth Assessment: 30 years old male with history of morbid obesity, admitted on 08/10/2020 secondary to 3-day history of intermittent frontal headache: #Bilateral pneumonia: Secondary to COVID-19. On steroids, remdesivir. S/P actemra on 08/14/2020. #Acute hypoxemic respiratory failure: Worsened, requiring on BiPAP. #Acute right leg DVT #LONNY: Resolved #Morbid obesity: Associated with worse outcomes Recommendations: -Continue dexamethasone for 10 days -Continue remdesivir, now back in stock -Monitor inflammatory markers - ferritin, Ddimer, CRP, LDH, ordered -continue anticoagulation for DVT -completed empiric abx course. Procal ordered for SILVANA Ng MD, FACP [facility] ([facility]) O: [phone] F: [phone] Subjective Date of service: 08/15/20 Interval history: Afebrile. Remains BiPAP. Continues to have low-grade fevers. Objective - Exam Narrative Exam: Physical Exam (reviewed in chart to minimize risk of transmission) Constitutional: deferred Head, Ears, Nose: deferred Eyes: deferred Neck: deferred Oral: deferred Cardiovascular: deferred Respiratory: deferred GI: deferred Musculoskeletal: deferred Skin: deferred Hem/Lymphatic: deferred Psych: deferred Neurological: deferred - Constitutional Vitals: Vital Signs Temp Pulse Resp BP Pulse Ox 100.0 F H 50 L 22 141/86 92 08/15/20 12:00 08/15/20 10:07 08/15/20 10:07 08/15/20 10:07 08/15/20 10:07 Temperature -Last 24 Hours Temperature 100.0 F Temperature 99.8 F Temperature 100.3 F Temperature 99.2 F Temperature 100.4 F - Labs CBC & Chem 7: 08/15/20 05:16 08/15/20 05:16 Labs: Abnormal lab results 08/14/20 08/15/20 08/15/20 Range/Units 08:23 05:16 05:16 WBC 13.7 H (4.5-11.0) K/mm3 Seg Neuts % (Manual) 91.0 H (40.0-70.0) % Lymphocytes % (Manual) 7.0 L (13.4-35.0) % Seg Neutrophils # Man 12.5 H (1.8-7.7) K/mm3 Lymphocytes # (Manual) 1.0 L (1.2-5.4) K/mm3 POC ABG pO2 50.0 L (83-108) mmHg ABG Oxyhemoglobin 84.0 L (94-98) ABG Glucose 141 H (65-95) mg/dL Carbon Dioxide 32 H (22-30) mmol/L BUN 29 H (9-20) mg/dL Glucose 150 H (75-100) mg/dL Lactate Dehydrogenase 1150 H (91-180) units/L Albumin 3.5 L (3.9-5) g/dL Arterial Blood Glucose 141 H (65-95) mg/dL
[2020-08-15] MEDS: SODIUM CHLORIDE 0.9% 50 ML IVPB IV SCH (22:01)
[2020-08-15] MEDS: REMDESIVIR 100 MG in SODIUM CHLORIDE 0.9% 250ML 250 ML IV SCH (22:01)
[2020-08-16 05:51] LABS: Hematocrit 42.5 % (35.5-45.6); Hemoglobin 13.8 gm/dl (11.8-15.2); Mean Corpuscular HGB Conc 33 % (32-34); Mean Corpuscular Volume 87 fl (84-94); Platelet Count 290 K/mm3 (140-440); Red Blood Count 4.91 M/mm3 (3.65-5.03); Red Cell Distribution Width 13.4 % (13.2-15.2)
[2020-08-16 05:53] LABS: Basophils # (Auto) 0.1 K/mm3 (0.0-0.1); Basophils % (Auto) 0.7 % (0.0-1.8); Eosinophils % (Auto) 0.2 % (0.0-4.3); Lymphocytes # (Auto) 1.5 K/mm3 (1.2-5.4); Lymphocytes % (Auto) 8.2 % (13.4-35.0); Monocytes # (Auto) 0.8 K/mm3 (0.0-0.8); Monocytes % (Auto) 4.7 % (0.0-7.3)
[2020-08-16 06:29] LABS: Alanine Aminotransferase 33 units/L (7-56); Albumin 3.6 g/dL (3.9-5); BUN/Creatinine Ratio 28; Blood Urea Nitrogen 25 mg/dL (9-20); Calcium 8.8 mg/dL (8.4-10.2); Hemolysis Index 29
[2020-08-16 07:19] LABS: Total Cells Counted 100
[2020-08-16 07:22] LABS: Platelet Estimate Consistent w Auto
[2020-08-16] MEDS: dexAMETHasone 4 MG/ML VIAL IV SCH ×2 (10:45→21:18)
[2020-08-16] MEDS: FAMOTIDINE 20 MG/2 ML INJ IV SCH ×2 (10:45→21:20)
[2020-08-16] MEDS: ZINC SULFATE 220 MG CAP PO SCH (10:46)
[2020-08-16] MEDS: ASCORBIC ACID 500 MG TAB PO SCH ×2 (10:46→21:22)
[2020-08-16] MEDS: ENOXAPARIN 150 MG/1 ML INJ SUB-Q SCH ×2 (11:33→21:19)
--- NOTE | 2020-08-16 12:38 | Progress Note ---
Assessment and Plan Cultures: Blood culture 08/10/2020 no growth SARS CoV2 PCR positive 08/10/2020 urine culture: No growth Assessment: 30 years old male with history of morbid obesity, admitted on 08/10/2020 secondary to 3-day history of intermittent frontal headache: #Bilateral pneumonia: Secondary to COVID-19. On steroids, remdesivir. S/P actemra on 08/14/2020. #Acute hypoxemic respiratory failure: Worsened, requiring on BiPAP. #Acute right leg DVT #LONNY: Resolved #Morbid obesity: Associated with worse outcomes Recommendations: -Continue dexamethasone for 10 days -Continue remdesivir -Monitor inflammatory markers - ferritin, Ddimer, CRP, LDH, ordered -continue anticoagulation for DVT -completed empiric abx course. Procal is low, additional abx not needed -prone position as possible Catracho Ng MD, FACP [facility] ([facility]) O: [phone] F: [phone] Subjective Date of service: 08/16/20 Interval history: Remains BiPAP. Continues to have low-grade fevers. Objective - Exam Narrative Exam: Physical Exam (reviewed in chart to minimize risk of transmission) Constitutional: deferred Head, Ears, Nose: deferred Eyes: deferred Neck: deferred Oral: deferred Cardiovascular: deferred Respiratory: deferred GI: deferred Musculoskeletal: deferred Skin: deferred Hem/Lymphatic: deferred Psych: deferred Neurological: deferred - Constitutional Vitals: Vital Signs Temp Pulse Resp BP Pulse Ox 99.0 F 48 L 26 H 126/68 95 08/16/20 12:00 08/16/20 11:30 08/16/20 08:58 08/16/20 11:30 08/16/20 11:30 Temperature -Last 24 Hours Temperature 99.0 F Temperature 99.0 F Temperature 99.6 F Temperature 100.0 F - Labs CBC & Chem 7: 08/16/20 05:26 08/16/20 05:26 Labs: Abnormal lab results 08/16/20 08/16/20 08/16/20 Range/Units 05:26 05:26 05:26 WBC 17.7 H (4.5-11.0) K/mm3 Lymph % (Auto) 8.2 L (13.4-35.0) % Seg Neutrophils % 86.2 H (40.0-70.0) % Seg Neuts % (Manual) 88.0 H (40.0-70.0) % Lymphocytes % (Manual) 9.0 L (13.4-35.0) % Seg Neutrophils # 15.3 H (1.8-7.7) K/mm3 Seg Neutrophils # Man 15.6 H (1.8-7.7) K/mm3 D-Dimer > 29193 H (0-234) ng/mlDDU Potassium 5.2 H (3.6-5.0) mmol/L BUN 25 H (9-20) mg/dL Glucose 163 H (75-100) mg/dL Ferritin (30.0-300.0) ng/mL C-Reactive Protein 4.00 H (0.00-1.30) mg/dL Albumin 3.6 L (3.9-5) g/dL 08/16/20 Range/Units 05:26 WBC (4.5-11.0) K/mm3 Lymph % (Auto) (13.4-35.0) % Seg Neutrophils % (40.0-70.0) % Seg Neuts % (Manual) (40.0-70.0) % Lymphocytes % (Manual) (13.4-35.0) % Seg Neutrophils # (1.8-7.7) K/mm3 Seg Neutrophils # Man (1.8-7.7) K/mm3 D-Dimer (0-234) ng/mlDDU Potassium (3.6-5.0) mmol/L BUN (9-20) mg/dL Glucose (75-100) mg/dL Ferritin 1013.0 H (30.0-300.0) ng/mL C-Reactive Protein (0.00-1.30) mg/dL Albumin (3.9-5) g/dL
--- NOTE | 2020-08-16 13:31 | Progress Note ---
Assessment and Plan Assessment and plan: #Acute hypoxic respiratory failure secondary to COVID-19 PNA Continue oxygen supplementation with BIPAP #COVID-19 Pneumonia Continue antibiotics Continue steroids Remdesivir s/p tocilizumab Oxygen supplementation with BiPAP Trend inflammatory markers Prone positioning strongly advised ID and pulmonology following #Right lower extremity DVT D-dimer more than 10,000 US shows RLE DVT. Echocardiogram shows no right heart strain. Continue Lovenox 150 mg twice daily #Sinus bradycardia Likely from remdesivir Monitor for now Will check TSH, Free T4 #Morbid obesity Diet and exercise advised #DVT prophylaxis-Lovenox History Interval history: 30-year-old male with morbid obesity weighing about 310 pounds comes in for intermittent frontal headache for 3 days. In the emergency room patient was very hypoxic but denies shortness of breath or cough. No muscle aches. His oxygen levels are mid 80s. Denies smoking. Work-up in the emergency room showed bilateral patchy opacities in the lungs and hypoxia-hence he was admitted for bilateral pneumonia and possible Covid pneumonia. No significant past medical history 08/11. Patient seen examined at bedside this morning. Has no complaints. Febrile this a.m.-103 Fahrenheit. On Tylenol as needed. COVID-19 test ordered. Remains on steroids. ID consult if COVID-19 is positive. 08/12. His COVID-19 test is positive. He was started on remdesivir last night. Oxygen requirement increased overnight. Inflammatory markers increasing. Repeat chest xray shows worsening infiltrates. Ordered BNP. Lasix 40mg IV ordered. Increased dexamethasone to 6mg BID. Pulmonology consulted. Will place on continuous pulse oximetry. Incentive spirometer ordered. Advised prone positioning. 08/13. Not feeling better. Seen on BIPAP. Remains on steroids, remdesivir and antibiotics. Vitals stable. 08/14. Still maintaining sats even on BiPAP. Lasix 40 mg IV ordered. D-dimer this a.m. is more than 10,000. Lovenox increased to 150 mg twice daily. Ultrasound lower extremities Doppler showed a right DVT. Echocardiogram ordered to rule out right heart strain. Pending results, patient may need vascular surgery evaluation for possible thrombectomy. Continue on BiPAP and continue to monitor respiratory status closely. 08/15. Sats better this AM. Received toculizumab yesterday. Advised him to prone as much as possible. Echo shows normal EF with no right heart strain. I/Os reviewed. He is diuresing well. Renal function is stable. Will give additional lasix today. Pulmonology following 08/16. Remains o no remdesivir. Still on BIPAP. Will give lasix 20mg IV. HR is low - likley effect of remdesivir. Will continue to monitor closely Hospitalist Physical - Physical exam Narrative exam: VITAL SIGNS: Reviewed. GENERAL: Awake HEAD: No signs of head trauma. EYES: Pupils are equal. Extraocular motions intact. MOUTH: Oropharynx is normal. NECK: No adenopathy, no JVD. CHEST: Chest with diminished breath sounds bilaterally. No wheezes, rales, or rhonchi. CARDIAC: normal S1 and S2, without murmurs, gallops, or rubs. ABDOMEN: Soft, non tender and non distended. No rebound or guarding, and no masses palpated. Bowel Sounds normal. MUSCULOSKELETAL: No edema NEUROLOGIC EXAM: Alert and oriented x3. No focal neurologic deficits SKIN: No obvious lesions - Constitutional Vitals: Temp Pulse Resp BP Pulse Ox 99.0 F 48 L 26 H 126/68 95 08/16/20 12:00 08/16/20 11:30 08/16/20 08:58 08/16/20 11:30 08/16/20 11:30 Results - Labs CBC & Chem 7: 08/16/20 05:26 08/16/20 05:26 Labs: Laboratory Last Values WBC 17.7 K/mm3 (4.5-11.0) H 08/16/20 05:26 RBC 4.91 M/mm3 (3.65-5.03) 08/16/20 05:26 Hgb 13.8 gm/dl (11.8-15.2) 08/16/20 05:26 Hct 42.5 % (35.5-45.6) 08/16/20 05:26 MCV 87 fl (84-94) 08/16/20 05:26 MCH 28 pg (28-32) 08/16/20 05:26 MCHC 33 % (32-34) 08/16/20 05:26 RDW 13.4 % (13.2-15.2) 08/16/20 05:26 Plt Count 290 K/mm3 (140-440) 08/16/20 05:26 Lymph % (Auto) 8.2 % (13.4-35.0) L 08/16/20 05:26 Irion % (Auto) 4.7 % (0.0-7.3) 08/16/20 05:26 Eos % (Auto) 0.2 % (0.0-4.3) 08/16/20 05:26 Baso % (Auto) 0.7 % (0.0-1.8) 08/16/20 05:26 Lymph # (Auto) 1.5 K/mm3 (1.2-5.4) 08/16/20 05:26 Irion # (Auto) 0.8 K/mm3 (0.0-0.8) 08/16/20 05:26 Eos # (Auto) 0.0 K/mm3 (0.0-0.4) 08/16/20 05:26 Baso # (Auto) 0.1 K/mm3 (0.0-0.1) 08/16/20 05:26 Add Manual Diff Complete 08/16/20 05:26 Total Counted 100 08/16/20 05:26 Seg Neutrophils % 86.2 % (40.0-70.0) H 08/16/20 05:26 Seg Neuts % (Manual) 88.0 % (40.0-70.0) H 08/16/20 05:26 Lymphocytes % (Manual) 9.0 % (13.4-35.0) L 08/16/20 05:26 Monocytes % (Manual) 3.0 % (0.0-7.3) 08/16/20 05:26 Metamyelocytes % 2.0 % 08/15/20 05:16 Nucleated RBC % Not Reportable 08/16/20 05:26 Seg Neutrophils # 15.3 K/mm3 (1.8-7.7) H 08/16/20 05:26 Seg Neutrophils # Man 15.6 K/mm3 (1.8-7.7) H 08/16/20 05:26 Band Neutrophils # 0.0 K/mm3 08/16/20 05:26 Lymphocytes # (Manual) 1.6 K/mm3 (1.2-5.4) 08/16/20 05:26 Abs React Lymphs (Man) 0.0 K/mm3 08/16/20 05:26 Monocytes # (Manual) 0.5 K/mm3 (0.0-0.8) 08/16/20 05:26 Eosinophils # (Manual) 0.0 K/mm3 (0.0-0.4) 08/16/20 05:26 Basophils # (Manual) 0.0 K/mm3 (0.0-0.1) 08/16/20 05:26 Metamyelocytes # 0.0 K/mm3 08/16/20 05:26 Myelocytes # 0.0 K/mm3 08/16/20 05:26 Promyelocytes # 0.0 K/mm3 08/16/20 05:26 Blast Cells # 0.0 K/mm3 08/16/20 05:26 WBC Morphology Not Reportable 08/16/20 05:26 Hypersegmented Neuts Not Reportable 08/16/20 05:26 Hyposegmented Neuts Not Reportable 08/16/20 05:26 Hypogranular Neuts Not Reportable 08/16/20 05:26 Smudge Cells Not Reportable 08/16/20 05:26 Toxic Granulation Not Reportable 08/16/20 05:26 Toxic Vacuolation Not Reportable 08/16/20 05:26 Dohle Bodies Not Reportable 08/16/20 05:26 Pelger-Huet Anomaly Not Reportable 08/16/20 05:26 Juan Luis Rods Not Reportable 08/16/20 05:26 Platelet Estimate Consistent w auto 08/16/20 05:26 Clumped Platelets Not Reportable 08/16/20 05:26 Plt Clumps, EDTA Not Reportable 08/16/20 05:26 Large Platelets Not Reportable 08/16/20 05:26 Giant Platelets Not Reportable 08/16/20 05:26 Platelet Satelliting Not Reportable 08/16/20 05:26 Plt Morphology Comment Not Reportable 08/16/20 05:26 RBC Morphology Not Reportable 08/16/20 05:26 Dimorphic RBCs Not Reportable 08/16/20 05:26 Polychromasia Not Reportable 08/16/20 05:26 Hypochromasia Not Reportable 08/16/20 05:26 Poikilocytosis Not Reportable 08/16/20 05:26 Anisocytosis Not Reportable 08/16/20 05:26 Microcytosis Not Reportable 08/16/20 05:26 Macrocytosis Not Reportable 08/16/20 05:26 Spherocytes Not Reportable 08/16/20 05:26 Pappenheimer Bodies Not Reportable 08/16/20 05:26 Sickle Cells Not Reportable 08/16/20 05:26 Target Cells Not Reportable 08/16/20 05:26 Tear Drop Cells Not Reportable 08/16/20 05:26 Ovalocytes Not Reportable 08/16/20 05:26 Helmet Cells Not Reportable 08/16/20 05:26 [place] Bodies Not Reportable 08/16/20 05:26 Butler Rings Not Reportable 08/16/20 05:26 Kurt Cells Not Reportable 08/16/20 05:26 Bite Cells Not Reportable 08/16/20 05:26 Crenated Cell Not Reportable 08/16/20 05:26 Elliptocytes Not Reportable 08/16/20 05:26 Acanthocytes (Spur) Not Reportable 08/16/20 05:26 Rouleaux Not Reportable 08/16/20 05:26 Hemoglobin C Crystals Not Reportable 08/16/20 05:26 Schistocytes Not Reportable 08/16/20 05:26 Malaria parasites Not Reportable 08/16/20 05:26 Asif Bodies Not Reportable 08/16/20 05:26 Hem Pathologist Commnt No 08/16/20 05:26 PT 12.6 Sec. (12.2-14.9) 08/10/20 08:29 INR 0.96 (0.87-1.13) 08/10/20 08:29 D-Dimer > 38241 ng/mlDDU (0-234) H 08/16/20 05:26 ABG pH 7.443 (7.320-7.450) 08/14/20 08:23 POC ABG pCO2 46.9 mmHg (32.0-48.0) 08/14/20 08:23 ABG pCO2 62.9 mm Hg 08/12/20 14:55 POC ABG pO2 50.0 mmHg (83-108) L 08/14/20 08:23 ABG pO2 65.8 mm Hg (80.0-90.0) L 08/12/20 14:55 POC ABG HCO3 31.4 08/14/20 08:23 ABG HCO3 31.4 mmol/L (20.0-26.0) H 08/12/20 14:55 ABG O2 Saturation 85.0 (0-100) 08/14/20 08:23 ABG O2 Content 24.3 (0.0-44) 08/12/20 14:55 POC ABG Base Excess 6.3 08/14/20 08:23 ABG Base Excess 2.6 mmol/L (-2.0-3.0) 08/12/20 14:55 ABG Hemoglobin 13.4 (12.0-17.5) 08/14/20 08:23 ABG Oxyhemoglobin 84.0 (94-98) L 08/14/20 08:23 ABG Carboxyhemoglobin 1.7 % (0.0-5.0) 08/12/20 14:55 ABG Methemoglobin 0.3 (0.0-1.5) 08/14/20 08:23 ABG Sodium 139.2 mmol/L (136.0-145.0) 08/14/20 08:23 ABG Potassium 4.5 mmol/L (3.40-4.50) 08/14/20 08:23 ABG Chloride 99.0 mmol/L (98-107) 08/14/20 08:23 ABG Glucose 141 mg/dL (65-95) H 08/14/20 08:23 VBG pH 7.303 (7.320-7.420) L 08/10/20 08:29 Oxyhemoglobin 89.7 % (95.0-99.0) L 08/12/20 14:55 Carboxyhemoglobin 0.9 (0.5-1.5) 08/14/20 08:23 FiO2 60 % 08/12/20 14:55 FiO2 % 100 08/14/20 08:23 Sodium 138 mmol/L (137-145) 08/16/20 05:26 Potassium 5.2 mmol/L (3.6-5.0) H 08/16/20 05:26 Chloride 98.7 mmol/L (98-107) 08/16/20 05:26 Carbon Dioxide 28 mmol/L (22-30) 08/16/20 05:26 Anion Gap 17 mmol/L 08/16/20 05:26 BUN 25 mg/dL (9-20) H 08/16/20 05:26 Creatinine 0.9 mg/dL (0.8-1.3) 08/16/20 05:26 Estimated GFR > 60 ml/min 08/16/20 05:26 BUN/Creatinine Ratio 28 % 08/16/20 05:26 Glucose 163 mg/dL (75-100) H 08/16/20 05:26 POC Glucose 139 mg/dL (70-105) H 08/14/20 05:58 Hemoglobin A1c 6.1 % (4-6) H 08/11/20 05:39 Lactic Acid 0.80 mmol/L (0.7-2.0) 08/10/20 11:18 Calcium 8.8 mg/dL (8.4-10.2) 08/16/20 05:26 Ferritin 1013.0 ng/mL (30.0-300.0) H 08/16/20 05:26 Total Bilirubin 0.50 mg/dL (0.1-1.2) 08/16/20 05:26 AST 32 units/L (5-40) 08/16/20 05:26 ALT 33 units/L (7-56) 08/16/20 05:26 Alkaline Phosphatase 89 units/L (35-129) 08/16/20 05:26 Lactate Dehydrogenase 1150 units/L (91-180) H 08/15/20 05:16 C-Reactive Protein 4.00 mg/dL (0.00-1.30) H 08/16/20 05:26 NT-Pro-B Natriuret Pep 36.40 pg/mL (0-450) 08/12/20 06:29 Total Protein 7.4 g/dL (6.3-8.2) 08/16/20 05:26 Albumin 3.6 g/dL (3.9-5) L 08/16/20 05:26 Albumin/Globulin Ratio 0.9 % 08/16/20 05:26 Procalcitonin 0.22 ng/mL (<0.15) 08/16/20 05:26 Arterial Blood Glucose 141 mg/dL (65-95) H 08/14/20 08:23 Arterial Blood Ionized Calcium 4.8 mg/dL (4.6-5.3) 08/14/20 08:23 Urine Color Yellow (Yellow) 08/10/20 Unknown Urine Turbidity Cloudy (Clear) 08/10/20 Unknown Urine pH 5.0 (5.0-7.0) 08/10/20 Unknown Ur Specific Sunset 1.025 (1.003-1.030) 08/10/20 Unknown Urine Protein 30 mg/dl mg/dL (Negative) 08/10/20 Unknown Urine Glucose (UA) 150 mg/dL (Negative) 08/10/20 Unknown Urine Ketones Negative mg/dL (Negative) 08/10/20 Unknown Urine Blood Negative (Negative) 08/10/20 Unknown Urine Nitrite Negative (Negative) 08/10/20 Unknown Urine Bilirubin Negative (Negative) 08/10/20 Unknown Urine Urobilinogen < 2.0 mg/dL (<2.0) 08/10/20 Unknown Ur Leukocyte Esterase Negative (Negative) 08/10/20 Unknown Urine WBC (Auto) 5.0 /HPF (0.0-6.0) 08/10/20 Unknown Urine RBC (Auto) 2.0 /HPF (0.0-6.0) 08/10/20 Unknown U Epithel Cells (Auto) 1.0 /HPF (0-13.0) 08/10/20 Unknown Urine Bacteria (Auto) 1+ /HPF (Negative) 08/10/20 Unknown Urine Mucus 3+ /HPF 08/10/20 Unknown Coronavirus (PCR) Positive (Negative) A 08/11/20 Unknown Gaytan/IV: Voiding Method Condom Catheter Active Medications - Current Medications Current Medications: Generic Name Dose Route Start Last Admin Trade Name Freq PRN Reason Stop Dose Admin Acetaminophen 650 mg 08/10/20 23:48 08/13/20 22:56 Acetaminophen 325 Mg Tab PO 650 mg Q4H PRN Administration Pain MILD(1-3)/Fever >100.5/MARTINEZ Ascorbic Acid 500 mg 08/12/20 10:00 08/16/20 10:46 Ascorbic Acid 500 Mg Tab PO 500 mg BID MELANIE Administration Dexamethasone 6 mg 08/12/20 10:00 08/16/20 10:45 Dexamethasone 4 Mg/Ml Vial IV 08/21/20 22:01 6 mg Q12HR MELANIE Administration Enoxaparin Sodium 150 mg 08/14/20 10:00 08/16/20 11:33 Enoxaparin 150 Mg/1 Ml Inj SUB-Q 150 mg Q12HR MELANIE Administration Famotidine 20 mg 08/11/20 10:00 08/16/20 10:45 Famotidine 20 Mg/2 Ml Inj IV 20 mg BID MELANIE Administration Furosemide 20 mg 08/16/20 14:00 Furosemide 20 Mg/2 Ml Inj IV 08/16/20 14:01 ONCE ONE REMDESIVIR 100 mg/ Sodium 250 mls @ 500 mls/hr 08/14/20 15:00 08/15/20 22:01 Chloride IV 08/17/20 21:29 500 mls/hr Q24HR@2100 MELANIE Administration Metoclopramide HCl 10 mg 08/10/20 23:48 Metoclopramide 10 Mg/2 Ml Inj IV Q6H PRN Nausea And Vomiting Morphine Sulfate 2 mg 08/10/20 23:48 Morphine 2 Mg/1 Ml Inj IV Q4H PRN Pain, Moderate (4-6) Ondansetron HCl 4 mg 08/10/20 23:48 Ondansetron 4 Mg/2 Ml Inj IV Q8H PRN Nausea And Vomiting Oxycodone/Acetaminophen 1 tab 08/10/20 23:48 Oxycodone /Acetaminophen 5-325mg Tab PO Q6H PRN Pain, Moderate (4-6) Sodium Chloride 10 ml 08/11/20 10:00 08/16/20 10:46 Sodium Chloride 0.9% 10 Ml Flush Syringe IV 10 ml BID MELANIE Administration Sodium Chloride 10 ml 08/10/20 23:48 08/12/20 21:04 Sodium Chloride 0.9% 10 Ml Flush Syringe IV 10 ml PRN PRN Administration LINE FLUSH Sodium Chloride 50 ml 08/14/20 21:00 08/15/20 22:01 Sodium Chloride 0.9% 50 Ml Ivpb IV 08/17/20 21:01 50 ml Q24HR@2100 MELANIE Administration Zinc Sulfate 220 mg 08/12/20 12:00 08/16/20 10:46 Zinc Sulfate 220 Mg Cap PO 220 mg QDAY MELANIE Administration
[2020-08-16] MEDS ORDERED: HYPROMELLOSE 0.5% OPHTH SOLN 15 ML OU PRN (13:44)
[2020-08-16] MEDS ORDERED: FUROSEMIDE 20 MG/2 ML INJ IV ONE (14:00)
--- NOTE | 2020-08-16 14:51 | Progress Note ---
Assessment and Plan 30 y/o morbidly obese male with acute respiratory failure secondary to COVID 19 pneumonia. 08/16/20: Anticoagulation. Prone as tolerated. Wean bipap as tolerated. Prognosis remains guarded. Trying to prevent intubation given poor outcomes associated with mechanically ventilated obese COVID patients. 08/15/20: Continue therapeutic anticoagulation. No current indication for vascular consult given no evidence of right heart strain on echo. CT would only be beneficial if we thought it would show large enough clot to warrant EKOS and with no evidence of strain, I doubt that will be the case. Continue proning as much as tolerated. Spoke with mother over the phone to update her. Patient also got actemra on yesterday as well. Prognosis remains guarded 08/14/20: Will accept sats in the mid 80's as long as mental state and work of breathing do not change. AGree with lasix therapy. Found to have large DVT on right. Spoke with [facility] and asked them to order stat echo to look for right heart strain, and if present may need to consider echos. Await echo before vascular consult. Prone if possible. Long discussion with mother on phone. Gave her a list of the meds he is on and what our current plan is. Also very candid with her and son at bedside that the mortality rate with COVID is very very high. 08/13/20: Lasix again today. Continue to alternate between HFNC with NRB and bipap. Prognosis is very very guarded. Very very guarded to poor prognosis given CXR appearance, and body habitus, along with rapid decline in self sustaning oxygen levels. Agree with lasix and increase in steroids. Must prone. Very high likelihood for mechanical ventilation which would carry a high mortality for patient. Will continue to follow. No additional IVF's unless indicated. Subjective Date of service: 08/16/20 Interval history: No acute events. Having asymptomatic bradycardia to as low as 40's. BP stable. Sats holding. Remains on therapeutic anticoagulation. Objective Vital Signs - 12hr 08/16/20 08/16/20 08/16/20 03:00 03:12 03:30 Temperature Pulse Rate 51 L 47 L 49 L Pulse Rate [ From Monitor] Respiratory Rate Blood Pressure 136/67 136/67 136/67 O2 Sat by Pulse 91 94 94 Oximetry 08/16/20 08/16/20 08/16/20 04:00 04:30 04:37 Temperature Pulse Rate 49 L 49 L 48 L Pulse Rate [ 47 L From Monitor] Respiratory 16 22 Rate Blood Pressure 115/64 115/64 115/64 O2 Sat by Pulse 91 96 95 Oximetry 08/16/20 08/16/20 08/16/20 05:00 05:30 06:00 Temperature Pulse Rate 54 L 51 L 52 L Pulse Rate [ From Monitor] Respiratory Rate Blood Pressure 115/64 115/58 115/64 O2 Sat by Pulse 92 94 90 Oximetry 08/16/20 08/16/20 08/16/20 06:30 07:00 07:30 Temperature Pulse Rate 54 L 48 L 50 L Pulse Rate [ From Monitor] Respiratory Rate Blood Pressure 115/64 107/56 107/56 O2 Sat by Pulse 91 90 94 Oximetry 08/16/20 08/16/20 08/16/20 08:00 08:30 08:58 Temperature 99.6 F Pulse Rate 46 L 49 L 49 L Pulse Rate [ 47 L From Monitor] Respiratory 16 26 H Rate Blood Pressure 107/56 122/74 120/61 O2 Sat by Pulse 98 93 91 Oximetry 08/16/20 08/16/20 08/16/20 09:00 09:30 10:00 Temperature Pulse Rate 48 L 50 L 51 L Pulse Rate [ From Monitor] Respiratory Rate Blood Pressure 120/61 120/61 120/61 O2 Sat by Pulse 88 90 89 Oximetry 08/16/20 08/16/20 08/16/20 10:30 11:00 11:30 Temperature 99.0 F Pulse Rate 50 L 48 L 48 L Pulse Rate [ From Monitor] Respiratory Rate Blood Pressure 113/34 126/68 126/68 O2 Sat by Pulse 91 95 95 Oximetry 08/16/20 08/16/20 08/16/20 12:00 12:30 12:48 Temperature 99.0 F Pulse Rate 64 43 L 57 L Pulse Rate [ 47 L From Monitor] Respiratory 16 26 H Rate Blood Pressure 126/68 107/50 107/50 O2 Sat by Pulse 88 91 92 Oximetry 08/16/20 08/16/20 08/16/20 13:00 13:30 14:00 Temperature Pulse Rate 47 L 51 L 49 L Pulse Rate [ From Monitor] Respiratory Rate Blood Pressure 117/58 117/58 115/64 O2 Sat by Pulse 88 92 93 Oximetry CBC and BMP: 08/16/20 05:26 08/16/20 05:26 ABG, PT/INR, D-dimer: ABG ABG pH 7.443 (7.320-7.450) 08/14/20 08:23 POC ABG pCO2 46.9 mmHg (32.0-48.0) 08/14/20 08:23 ABG pCO2 62.9 mm Hg 08/12/20 14:55 POC ABG pO2 50.0 mmHg (83-108) L 08/14/20 08:23 ABG pO2 65.8 mm Hg (80.0-90.0) L 08/12/20 14:55 POC ABG HCO3 31.4 08/14/20 08:23 ABG O2 Saturation 85.0 (0-100) 08/14/20 08:23 PT/INR, D-dimer PT 12.6 Sec. (12.2-14.9) 08/10/20 08:29 INR 0.96 (0.87-1.13) 08/10/20 08:29 D-Dimer > 43471 ng/mlDDU (0-234) H 08/16/20 05:26 Abnormal lab findings: Abnormal Labs 08/10/20 08/10/20 08/10/20 08:29 08:29 08:29 WBC Lymph % (Auto) [place] % (Auto) 8.4 H Lymph # (Auto) [place] # (Auto) Seg Neutrophils % Seg Neuts % (Manual) Lymphocytes % (Manual) Seg Neutrophils # Seg Neutrophils # Man Lymphocytes # (Manual) D-Dimer ABG pH POC ABG pCO2 POC ABG pO2 ABG pO2 ABG HCO3 ABG O2 Saturation ABG Hemoglobin ABG Oxyhemoglobin ABG Potassium ABG Glucose VBG pH 7.303 L Oxyhemoglobin Potassium Carbon Dioxide BUN Glucose 132 H POC Glucose Hemoglobin A1c Ferritin AST Lactate Dehydrogenase C-Reactive Protein Albumin Arterial Blood Glucose Coronavirus (PCR) 08/11/20 08/11/20 08/11/20 05:39 05:39 05:39 WBC Lymph % (Auto) 12.5 L [place] % (Auto) Lymph # (Auto) [place] # (Auto) Seg Neutrophils % 84.2 H Seg Neuts % (Manual) Lymphocytes % (Manual) Seg Neutrophils # 9.1 H Seg Neutrophils # Man Lymphocytes # (Manual) D-Dimer ABG pH POC ABG pCO2 POC ABG pO2 ABG pO2 ABG HCO3 ABG O2 Saturation ABG Hemoglobin ABG Oxyhemoglobin ABG Potassium ABG Glucose VBG pH Oxyhemoglobin Potassium Carbon Dioxide BUN Glucose 125 H POC Glucose Hemoglobin A1c 6.1 H Ferritin AST Lactate Dehydrogenase C-Reactive Protein Albumin Arterial Blood Glucose Coronavirus (PCR) 08/11/20 08/11/20 08/11/20 18:58 18:58 18:58 WBC Lymph % (Auto) [place] % (Auto) Lymph # (Auto) [place] # (Auto) Seg Neutrophils % Seg Neuts % (Manual) Lymphocytes % (Manual) Seg Neutrophils # Seg Neutrophils # Man Lymphocytes # (Manual) D-Dimer 464.84 H ABG pH POC ABG pCO2 POC ABG pO2 ABG pO2 ABG HCO3 ABG O2 Saturation ABG Hemoglobin ABG Oxyhemoglobin ABG Potassium ABG Glucose VBG pH Oxyhemoglobin Potassium Carbon Dioxide BUN Glucose POC Glucose Hemoglobin A1c Ferritin 528.7 H AST Lactate Dehydrogenase 637 H C-Reactive Protein 11.30 H Albumin Arterial Blood Glucose Coronavirus (PCR) 08/11/20 08/11/20 08/12/20 19:08 Unknown 06:29 WBC 11.2 H Lymph % (Auto) 8.6 L [place] % (Auto) Lymph # (Auto) 1.0 L [place] # (Auto) Seg Neutrophils % 88.3 H Seg Neuts % (Manual) Lymphocytes % (Manual) Seg Neutrophils # 9.8 H Seg Neutrophils # Man Lymphocytes # (Manual) D-Dimer ABG pH POC ABG pCO2 POC ABG pO2 ABG pO2 ABG HCO3 ABG O2 Saturation ABG Hemoglobin ABG Oxyhemoglobin ABG Potassium ABG Glucose VBG pH Oxyhemoglobin Potassium Carbon Dioxide BUN Glucose 161 H POC Glucose Hemoglobin A1c Ferritin AST Lactate Dehydrogenase C-Reactive Protein Albumin Arterial Blood Glucose Coronavirus (PCR) Positive A 08/12/20 08/12/20 08/12/20 06:29 06:29 06:29 WBC Lymph % (Auto) [place] % (Auto) Lymph # (Auto) [place] # (Auto) Seg Neutrophils % Seg Neuts % (Manual) Lymphocytes % (Manual) Seg Neutrophils # Seg Neutrophils # Man Lymphocytes # (Manual) D-Dimer 830.34 H ABG pH POC ABG pCO2 POC ABG pO2 ABG pO2 ABG HCO3 ABG O2 Saturation ABG Hemoglobin ABG Oxyhemoglobin ABG Potassium ABG Glucose VBG pH Oxyhemoglobin Potassium Carbon Dioxide 31 H BUN Glucose 138 H POC Glucose Hemoglobin A1c Ferritin 572.6 H AST 42 H Lactate Dehydrogenase 706 H C-Reactive Protein 17.30 H Albumin 3.7 L Arterial Blood Glucose Coronavirus (PCR) 08/12/20 08/12/20 08/12/20 13:21 14:55 21:59 WBC Lymph % (Auto) [place] % (Auto) Lymph # (Auto) [place] # (Auto) Seg Neutrophils % Seg Neuts % (Manual) Lymphocytes % (Manual) Seg Neutrophils # Seg Neutrophils # Man Lymphocytes # (Manual) D-Dimer ABG pH 7.315 L POC ABG pCO2 57.1 H POC ABG pO2 47.8 L ABG pO2 65.8 L ABG HCO3 31.4 H ABG O2 Saturation 91.7 L ABG Hemoglobin 19.3 H ABG Oxyhemoglobin ABG Potassium 4.9 H ABG Glucose 182 H VBG pH Oxyhemoglobin 89.7 L Potassium Carbon Dioxide BUN Glucose POC Glucose 142 H Hemoglobin A1c Ferritin AST Lactate Dehydrogenase C-Reactive Protein Albumin Arterial Blood Glucose 182 H Coronavirus (PCR) 08/13/20 08/13/20 08/13/20 05:35 05:35 12:11 WBC 12.0 H Lymph % (Auto) 8.1 L [place] % (Auto) Lymph # (Auto) 1.0 L [place] # (Auto) Seg Neutrophils % 88.0 H Seg Neuts % (Manual) Lymphocytes % (Manual) Seg Neutrophils # 10.5 H Seg Neutrophils # Man Lymphocytes # (Manual) D-Dimer ABG pH POC ABG pCO2 POC ABG pO2 ABG pO2 ABG HCO3 ABG O2 Saturation ABG Hemoglobin ABG Oxyhemoglobin ABG Potassium ABG Glucose VBG pH Oxyhemoglobin Potassium 5.1 H Carbon Dioxide 31 H BUN 25 H Glucose 174 H POC Glucose 154 H Hemoglobin A1c Ferritin AST 41 H Lactate Dehydrogenase 996 H C-Reactive Protein Albumin 3.8 L Arterial Blood Glucose Coronavirus (PCR) 08/13/20 08/13/20 08/14/20 16:18 23:24 05:21 WBC 14.2 H Lymph % (Auto) 8.2 L [place] % (Auto) Lymph # (Auto) [place] # (Auto) 0.9 H Seg Neutrophils % 85.4 H Seg Neuts % (Manual) Lymphocytes % (Manual) Seg Neutrophils # 12.2 H Seg Neutrophils # Man Lymphocytes # (Manual) D-Dimer ABG pH POC ABG pCO2 POC ABG pO2 ABG pO2 ABG HCO3 ABG O2 Saturation ABG Hemoglobin ABG Oxyhemoglobin ABG Potassium ABG Glucose VBG pH Oxyhemoglobin Potassium Carbon Dioxide BUN Glucose POC Glucose 188 H 127 H Hemoglobin A1c Ferritin AST Lactate Dehydrogenase C-Reactive Protein Albumin Arterial Blood Glucose Coronavirus (PCR) 08/14/20 08/14/20 08/14/20 05:21 05:21 05:21 WBC Lymph % (Auto) [place] % (Auto) Lymph # (Auto) [place] # (Auto) Seg Neutrophils % Seg Neuts % (Manual) Lymphocytes % (Manual) Seg Neutrophils # Seg Neutrophils # Man Lymphocytes # (Manual) D-Dimer > 25620 H ABG pH POC ABG pCO2 POC ABG pO2 ABG pO2 ABG HCO3 ABG O2 Saturation ABG Hemoglobin ABG Oxyhemoglobin ABG Potassium ABG Glucose VBG pH Oxyhemoglobin Potassium Carbon Dioxide 32 H 33 H BUN 26 H 26 H Glucose 152 H 156 H POC Glucose Hemoglobin A1c Ferritin AST 53 H 54 H Lactate Dehydrogenase 1249 H C-Reactive Protein 9.90 H Albumin 3.7 L 3.7 L Arterial Blood Glucose Coronavirus (PCR) 08/14/20 08/14/20 08/14/20 05:21 05:58 08:23 WBC Lymph % (Auto) [place] % (Auto) Lymph # (Auto) [place] # (Auto) Seg Neutrophils % Seg Neuts % (Manual) Lymphocytes % (Manual) Seg Neutrophils # Seg Neutrophils # Man Lymphocytes # (Manual) D-Dimer ABG pH POC ABG pCO2 POC ABG pO2 50.0 L ABG pO2 ABG HCO3 ABG O2 Saturation ABG Hemoglobin ABG Oxyhemoglobin 84.0 L ABG Potassium ABG Glucose 141 H VBG pH Oxyhemoglobin Potassium Carbon Dioxide BUN Glucose POC Glucose 139 H Hemoglobin A1c Ferritin 1198.0 H AST Lactate Dehydrogenase C-Reactive Protein Albumin Arterial Blood Glucose 141 H Coronavirus (PCR) 08/15/20 08/15/20 08/16/20 05:16 05:16 05:26 WBC 13.7 H 17.7 H Lymph % (Auto) 8.2 L [place] % (Auto) Lymph # (Auto) [place] # (Auto) Seg Neutrophils % 86.2 H Seg Neuts % (Manual) 91.0 H 88.0 H Lymphocytes % (Manual) 7.0 L 9.0 L Seg Neutrophils # 15.3 H Seg Neutrophils # Man 12.5 H 15.6 H Lymphocytes # (Manual) 1.0 L D-Dimer ABG pH POC ABG pCO2 POC ABG pO2 ABG pO2 ABG HCO3 ABG O2 Saturation ABG Hemoglobin ABG Oxyhemoglobin ABG Potassium ABG Glucose VBG pH Oxyhemoglobin Potassium Carbon Dioxide 32 H BUN 29 H Glucose 150 H POC Glucose Hemoglobin A1c Ferritin AST Lactate Dehydrogenase 1150 H C-Reactive Protein Albumin 3.5 L Arterial Blood Glucose Coronavirus (PCR) 08/16/20 08/16/20 08/16/20 05:26 05:26 05:26 WBC Lymph % (Auto) [place] % (Auto) Lymph # (Auto) [place] # (Auto) Seg Neutrophils % Seg Neuts % (Manual) Lymphocytes % (Manual) Seg Neutrophils # Seg Neutrophils # Man Lymphocytes # (Manual) D-Dimer > 15488 H ABG pH POC ABG pCO2 POC ABG pO2 ABG pO2 ABG HCO3 ABG O2 Saturation ABG Hemoglobin ABG Oxyhemoglobin ABG Potassium ABG Glucose VBG pH Oxyhemoglobin Potassium 5.2 H Carbon Dioxide BUN 25 H Glucose 163 H POC Glucose Hemoglobin A1c Ferritin 1013.0 H AST Lactate Dehydrogenase C-Reactive Protein 4.00 H Albumin 3.6 L Arterial Blood Glucose Coronavirus (PCR)
[2020-08-16] MEDS: REMDESIVIR 100 MG in SODIUM CHLORIDE 0.9% 250ML 250 ML IV SCH (20:31)
[2020-08-16] MEDS: SODIUM CHLORIDE 0.9% 50 ML IVPB IV SCH (20:31)
[2020-08-17 06:10] LABS: Hematocrit 42.4 % (35.5-45.6); Hemoglobin 13.9 gm/dl (11.8-15.2); Mean Corpuscular HGB Conc 33 % (32-34); Mean Corpuscular Volume 88 fl (84-94); Platelet Count 333 K/mm3 (140-440); Red Blood Count 4.83 M/mm3 (3.65-5.03); Red Cell Distribution Width 13.6 % (13.2-15.2)
[2020-08-17 06:12] LABS: Alanine Aminotransferase 41 units/L (7-56); Albumin 3.7 g/dL (3.9-5); BUN/Creatinine Ratio 32; Blood Urea Nitrogen 29 mg/dL (9-20); Calcium 9.1 mg/dL (8.4-10.2); Hemolysis Index 44
[2020-08-17 08:24] LABS: Total Cells Counted 100
[2020-08-17 08:25] LABS: Anisocytosis Few; Platelet Estimate Consistent w Auto
--- NOTE | 2020-08-17 09:29 | Progress Note ---
Assessment and Plan 30 y/o morbidly obese male with acute respiratory failure secondary to COVID 19 pneumonia. 08/17/20: Continue anticoagulation. Still trying to prevent intubation however will do electively if and when needed to prevent and emergent situation as patient will likely be difficult given neck and body habitus. Continue prone as tolerated. Steroids and remdesivir. 08/16/20: Anticoagulation. Prone as tolerated. Wean bipap as tolerated. Prognosis remains guarded. Trying to prevent intubation given poor outcomes associated with mechanically ventilated obese COVID patients. 08/15/20: Continue therapeutic anticoagulation. No current indication for vascular consult given no evidence of right heart strain on echo. CT would only be beneficial if we thought it would show large enough clot to warrant EKOS and with no evidence of strain, I doubt that will be the case. Continue proning as much as tolerated. Spoke with mother over the phone to update her. Patient also got actemra on yesterday as well. Prognosis remains guarded 08/14/20: Will accept sats in the mid 80's as long as mental state and work of breathing do not change. AGree with lasix therapy. Found to have large DVT on right. Spoke with [facility] and asked them to order stat echo to look for right heart strain, and if present may need to consider echos. Await echo before vascular consult. Prone if possible. Long discussion with mother on phone. Gave her a list of the meds he is on and what our current plan is. Also very candid with her and son at bedside that the mortality rate with COVID is very very high. 08/13/20: Lasix again today. Continue to alternate between HFNC with NRB and bipap. Prognosis is very very guarded. Very very guarded to poor prognosis given CXR appearance, and body habitus, along with rapid decline in self sustaning oxygen levels. Agree with lasix and increase in steroids. Must prone. Very high likelihood for mechanical ventilation which would carry a high mortality for patient. Will continue to follow. No additional IVF's unless indicated. Subjective Date of service: 08/17/20 Interval history: Remains hypoxic, on bipap. Sats holding in the high 80's to low 90's when proned. Objective Vital Signs - 12hr 08/16/20 08/16/20 08/16/20 21:30 22:00 22:30 Temperature Pulse Rate 53 L 55 L 52 L Pulse Rate [ From Monitor] Respiratory 19 20 21 Rate Blood Pressure 144/80 144/80 103/54 O2 Sat by Pulse 92 89 91 Oximetry 08/16/20 08/16/20 08/16/20 22:52 23:00 23:30 Temperature Pulse Rate 53 L 54 L 51 L Pulse Rate [ From Monitor] Respiratory 22 21 20 Rate Blood Pressure 103/54 113/53 113/53 O2 Sat by Pulse 84 85 90 Oximetry 08/17/20 08/17/20 08/17/20 00:00 00:30 01:00 Temperature Pulse Rate 52 L 52 L 55 L Pulse Rate [ 53 L From Monitor] Respiratory 25 H 19 21 Rate Blood Pressure 118/62 118/62 109/56 O2 Sat by Pulse 89 90 86 Oximetry 08/17/20 08/17/20 08/17/20 01:07 01:30 02:00 Temperature Pulse Rate 53 L 53 L 54 L Pulse Rate [ From Monitor] Respiratory 23 21 17 Rate Blood Pressure 109/56 109/56 122/65 O2 Sat by Pulse 90 87 83 L Oximetry 08/17/20 08/17/20 08/17/20 02:30 03:00 03:30 Temperature Pulse Rate 54 L 52 L 56 L Pulse Rate [ From Monitor] Respiratory 24 29 H 21 Rate Blood Pressure 122/65 127/70 127/70 O2 Sat by Pulse 87 88 90 Oximetry 08/17/20 08/17/20 08/17/20 04:00 04:30 05:00 Temperature Pulse Rate 52 L 51 L 56 L Pulse Rate [ 51 L From Monitor] Respiratory 20 26 H 15 Rate Blood Pressure 123/66 123/66 123/66 O2 Sat by Pulse 88 90 88 Oximetry 08/17/20 08/17/20 08/17/20 05:30 06:00 07:59 Temperature Pulse Rate 52 L 54 L 50 L Pulse Rate [ From Monitor] Respiratory 21 16 28 H Rate Blood Pressure 106/58 108/61 123/72 O2 Sat by Pulse 84 89 88 Oximetry 08/17/20 08:00 Temperature 98.9 F Pulse Rate Pulse Rate [ From Monitor] Respiratory Rate Blood Pressure O2 Sat by Pulse Oximetry CBC and BMP: 08/17/20 05:06 08/17/20 05:06 ABG, PT/INR, D-dimer: ABG ABG pH 7.443 (7.320-7.450) 08/14/20 08:23 POC ABG pCO2 46.9 mmHg (32.0-48.0) 08/14/20 08:23 ABG pCO2 62.9 mm Hg 08/12/20 14:55 POC ABG pO2 50.0 mmHg (83-108) L 08/14/20 08:23 ABG pO2 65.8 mm Hg (80.0-90.0) L 08/12/20 14:55 POC ABG HCO3 31.4 08/14/20 08:23 ABG O2 Saturation 85.0 (0-100) 08/14/20 08:23 PT/INR, D-dimer PT 12.6 Sec. (12.2-14.9) 08/10/20 08:29 INR 0.96 (0.87-1.13) 08/10/20 08:29 D-Dimer > 98833 ng/mlDDU (0-234) H 08/16/20 05:26 Abnormal lab findings: Abnormal Labs 08/10/20 08/10/20 08/10/20 08:29 08:29 08:29 WBC Lymph % (Auto) [place] % (Auto) 8.4 H Lymph # (Auto) [place] # (Auto) Seg Neutrophils % Seg Neuts % (Manual) Lymphocytes % (Manual) Seg Neutrophils # Seg Neutrophils # Man Lymphocytes # (Manual) Monocytes # (Manual) D-Dimer ABG pH POC ABG pCO2 POC ABG pO2 ABG pO2 ABG HCO3 ABG O2 Saturation ABG Hemoglobin ABG Oxyhemoglobin ABG Potassium ABG Glucose VBG pH 7.303 L Oxyhemoglobin Potassium Chloride Carbon Dioxide BUN Glucose 132 H POC Glucose Hemoglobin A1c Ferritin AST Lactate Dehydrogenase C-Reactive Protein Albumin Arterial Blood Glucose Coronavirus (PCR) 08/11/20 08/11/20 08/11/20 05:39 05:39 05:39 WBC Lymph % (Auto) 12.[address] [place] % (Auto) Lymph # (Auto) [place] # (Auto) Seg Neutrophils % 84.2 H Seg Neuts % (Manual) Lymphocytes % (Manual) Seg Neutrophils # 9.1 H Seg Neutrophils # Man Lymphocytes # (Manual) Monocytes # (Manual) D-Dimer ABG pH POC ABG pCO2 POC ABG pO2 ABG pO2 ABG HCO3 ABG O2 Saturation ABG Hemoglobin ABG Oxyhemoglobin ABG Potassium ABG Glucose VBG pH Oxyhemoglobin Potassium Chloride Carbon Dioxide BUN Glucose 125 H POC Glucose Hemoglobin A1c 6.1 H Ferritin AST Lactate Dehydrogenase C-Reactive Protein Albumin Arterial Blood Glucose Coronavirus (PCR) 08/11/20 08/11/20 08/11/20 18:58 18:58 18:58 WBC Lymph % (Auto) [place] % (Auto) Lymph # (Auto) [place] # (Auto) Seg Neutrophils % Seg Neuts % (Manual) Lymphocytes % (Manual) Seg Neutrophils # Seg Neutrophils # Man Lymphocytes # (Manual) Monocytes # (Manual) D-Dimer 464.84 H ABG pH POC ABG pCO2 POC ABG pO2 ABG pO2 ABG HCO3 ABG O2 Saturation ABG Hemoglobin ABG Oxyhemoglobin ABG Potassium ABG Glucose VBG pH Oxyhemoglobin Potassium Chloride Carbon Dioxide BUN Glucose POC Glucose Hemoglobin A1c Ferritin 528.7 H AST Lactate Dehydrogenase 637 H C-Reactive Protein 11.30 H Albumin Arterial Blood Glucose Coronavirus (PCR) 08/11/20 08/11/20 08/12/20 19:08 Unknown 06:29 WBC 11.2 H Lymph % (Auto) 8.[address] [place] % (Auto) Lymph # (Auto) 1.[address] [place] # (Auto) Seg Neutrophils % 88.3 H Seg Neuts % (Manual) Lymphocytes % (Manual) Seg Neutrophils # 9.8 H Seg Neutrophils # Man Lymphocytes # (Manual) Monocytes # (Manual) D-Dimer ABG pH POC ABG pCO2 POC ABG pO2 ABG pO2 ABG HCO3 ABG O2 Saturation ABG Hemoglobin ABG Oxyhemoglobin ABG Potassium ABG Glucose VBG pH Oxyhemoglobin Potassium Chloride Carbon Dioxide BUN Glucose 161 H POC Glucose Hemoglobin A1c Ferritin AST Lactate Dehydrogenase C-Reactive Protein Albumin Arterial Blood Glucose Coronavirus (PCR) Positive A 08/12/20 08/12/20 08/12/20 06:29 06:29 06:29 WBC Lymph % (Auto) [place] % (Auto) Lymph # (Auto) [place] # (Auto) Seg Neutrophils % Seg Neuts % (Manual) Lymphocytes % (Manual) Seg Neutrophils # Seg Neutrophils # Man Lymphocytes # (Manual) Monocytes # (Manual) D-Dimer 830.34 H ABG pH POC ABG pCO2 POC ABG pO2 ABG pO2 ABG HCO3 ABG O2 Saturation ABG Hemoglobin ABG Oxyhemoglobin ABG Potassium ABG Glucose VBG pH Oxyhemoglobin Potassium Chloride Carbon Dioxide 31 H BUN Glucose 138 H POC Glucose Hemoglobin A1c Ferritin 572.6 H AST 42 H Lactate Dehydrogenase 706 H C-Reactive Protein 17.30 H Albumin 3.7 L Arterial Blood Glucose Coronavirus (PCR) 08/12/20 08/12/20 08/12/20 13:21 14:55 21:59 WBC Lymph % (Auto) [place] % (Auto) Lymph # (Auto) [place] # (Auto) Seg Neutrophils % Seg Neuts % (Manual) Lymphocytes % (Manual) Seg Neutrophils # Seg Neutrophils # Man Lymphocytes # (Manual) Monocytes # (Manual) D-Dimer ABG pH 7.315 L POC ABG pCO2 57.1 H POC ABG pO2 47.8 L ABG pO2 65.8 L ABG HCO3 31.4 H ABG O2 Saturation 91.7 L ABG Hemoglobin 19.3 H ABG Oxyhemoglobin ABG Potassium 4.9 H ABG Glucose 182 H VBG pH Oxyhemoglobin 89.7 L Potassium Chloride Carbon Dioxide BUN Glucose POC Glucose 142 H Hemoglobin A1c Ferritin AST Lactate Dehydrogenase C-Reactive Protein Albumin Arterial Blood Glucose 182 H Coronavirus (PCR) 08/13/20 08/13/20 08/13/20 05:35 05:35 12:11 WBC 12.0 H Lymph % (Auto) 8.[address] [place] % (Auto) Lymph # (Auto) 1.[address] # (Auto) Seg Neutrophils % 88.0 H Seg Neuts % (Manual) Lymphocytes % (Manual) Seg Neutrophils # 10.5 H Seg Neutrophils # Man Lymphocytes # (Manual) Monocytes # (Manual) D-Dimer ABG pH POC ABG pCO2 POC ABG pO2 ABG pO2 ABG HCO3 ABG O2 Saturation ABG Hemoglobin ABG Oxyhemoglobin ABG Potassium ABG Glucose VBG pH Oxyhemoglobin Potassium 5.1 H Chloride Carbon Dioxide 31 H BUN 25 H Glucose 174 H POC Glucose 154 H Hemoglobin A1c Ferritin AST 41 H Lactate Dehydrogenase 996 H C-Reactive Protein Albumin 3.8 L Arterial Blood Glucose Coronavirus (PCR) 08/13/20 08/13/20 08/14/20 16:18 23:24 05:21 WBC 14.2 H Lymph % (Auto) 8.[address] % (Auto) Lymph # (Auto) [place] # (Auto) 0.9 H Seg Neutrophils % 85.4 H Seg Neuts % (Manual) Lymphocytes % (Manual) Seg Neutrophils # 12.2 H Seg Neutrophils # Man Lymphocytes # (Manual) Monocytes # (Manual) D-Dimer ABG pH POC ABG pCO2 POC ABG pO2 ABG pO2 ABG HCO3 ABG O2 Saturation ABG Hemoglobin ABG Oxyhemoglobin ABG Potassium ABG Glucose VBG pH Oxyhemoglobin Potassium Chloride Carbon Dioxide BUN Glucose POC Glucose 188 H 127 H Hemoglobin A1c Ferritin AST Lactate Dehydrogenase C-Reactive Protein Albumin Arterial Blood Glucose Coronavirus (PCR) 08/14/20 08/14/20 08/14/20 05:21 05:21 05:21 WBC Lymph % (Auto) [place] % (Auto) Lymph # (Auto) [place] # (Auto) Seg Neutrophils % Seg Neuts % (Manual) Lymphocytes % (Manual) Seg Neutrophils # Seg Neutrophils # Man Lymphocytes # (Manual) Monocytes # (Manual) D-Dimer > 24387 H ABG pH POC ABG pCO2 POC ABG pO2 ABG pO2 ABG HCO3 ABG O2 Saturation ABG Hemoglobin ABG Oxyhemoglobin ABG Potassium ABG Glucose VBG pH Oxyhemoglobin Potassium Chloride Carbon Dioxide 32 H 33 H BUN 26 H 26 H Glucose 152 H 156 H POC Glucose Hemoglobin A1c Ferritin AST 53 H 54 H Lactate Dehydrogenase 1249 H C-Reactive Protein 9.90 H Albumin 3.7 L 3.7 L Arterial Blood Glucose Coronavirus (PCR) 08/14/20 08/14/20 08/14/20 05:21 05:58 08:23 WBC Lymph % (Auto) [place] % (Auto) Lymph # (Auto) [place] # (Auto) Seg Neutrophils % Seg Neuts % (Manual) Lymphocytes % (Manual) Seg Neutrophils # Seg Neutrophils # Man Lymphocytes # (Manual) Monocytes # (Manual) D-Dimer ABG pH POC ABG pCO2 POC ABG pO2 50.0 L ABG pO2 ABG HCO3 ABG O2 Saturation ABG Hemoglobin ABG Oxyhemoglobin 84.0 L ABG Potassium ABG Glucose 141 H VBG pH Oxyhemoglobin Potassium Chloride Carbon Dioxide BUN Glucose POC Glucose 139 H Hemoglobin A1c Ferritin 1198.0 H AST Lactate Dehydrogenase C-Reactive Protein Albumin Arterial Blood Glucose 141 H Coronavirus (PCR) 08/15/20 08/15/20 08/16/20 05:16 05:16 05:26 WBC 13.7 H 17.7 H Lymph % (Auto) 8.[address] [place] % (Auto) Lymph # (Auto) [place] # (Auto) Seg Neutrophils % 86.2 H Seg Neuts % (Manual) 91.0 H 88.0 H Lymphocytes % (Manual) 7.0 L 9.0 L Seg Neutrophils # 15.3 H Seg Neutrophils # Man 12.5 H 15.6 H Lymphocytes # (Manual) 1.0 L Monocytes # (Manual) D-Dimer ABG pH POC ABG pCO2 POC ABG pO2 ABG pO2 ABG HCO3 ABG O2 Saturation ABG Hemoglobin ABG Oxyhemoglobin ABG Potassium ABG Glucose VBG pH Oxyhemoglobin Potassium Chloride Carbon Dioxide 32 H BUN 29 H Glucose 150 H POC Glucose Hemoglobin A1c Ferritin AST Lactate Dehydrogenase 1150 H C-Reactive Protein Albumin 3.5 L Arterial Blood Glucose Coronavirus (PCR) 08/16/20 08/16/20 08/16/20 05:26 05:26 05:26 WBC Lymph % (Auto) [place] % (Auto) Lymph # (Auto) [place] # (Auto) Seg Neutrophils % Seg Neuts % (Manual) Lymphocytes % (Manual) Seg Neutrophils # Seg Neutrophils # Man Lymphocytes # (Manual) Monocytes # (Manual) D-Dimer > 81798 H ABG pH POC ABG pCO2 POC ABG pO2 ABG pO2 ABG HCO3 ABG O2 Saturation ABG Hemoglobin ABG Oxyhemoglobin ABG Potassium ABG Glucose VBG pH Oxyhemoglobin Potassium 5.2 H Chloride Carbon Dioxide BUN 25 H Glucose 163 H POC Glucose Hemoglobin A1c Ferritin 1013.0 H AST Lactate Dehydrogenase C-Reactive Protein 4.00 H Albumin 3.6 L Arterial Blood Glucose Coronavirus (PCR) 08/17/20 08/17/20 05:06 05:06 WBC 20.7 H Lymph % (Auto) [place] % (Auto) Lymph # (Auto) [place] # (Auto) Seg Neutrophils % Seg Neuts % (Manual) 86.0 H Lymphocytes % (Manual) 7.0 L Seg Neutrophils # Seg Neutrophils # Man 17.8 H Lymphocytes # (Manual) Monocytes # (Manual) 1.2 H D-Dimer ABG pH POC ABG pCO2 POC ABG pO2 ABG pO2 ABG HCO3 ABG O2 Saturation ABG Hemoglobin ABG Oxyhemoglobin ABG Potassium ABG Glucose VBG pH Oxyhemoglobin Potassium Chloride 96.5 L Carbon Dioxide 31 H BUN 29 H Glucose 121 H POC Glucose Hemoglobin A1c Ferritin AST 46 H Lactate Dehydrogenase C-Reactive Protein Albumin 3.7 L Arterial Blood Glucose Coronavirus (PCR)
[2020-08-17] MEDS: dexAMETHasone 4 MG/ML VIAL IV SCH ×2 (09:53→21:43)
[2020-08-17] MEDS: ENOXAPARIN 150 MG/1 ML INJ SUB-Q SCH ×2 (09:54→21:43)
[2020-08-17] MEDS: ASCORBIC ACID 500 MG TAB PO SCH ×2 (09:55→21:44)
[2020-08-17] MEDS: ZINC SULFATE 220 MG CAP PO SCH (09:55)
[2020-08-17] MEDS: FAMOTIDINE 20 MG/2 ML INJ IV SCH ×2 (09:55→21:43)
--- NOTE | 2020-08-17 12:10 | Progress Note ---
Assessment and Plan Assessment and plan: #Acute hypoxic respiratory failure secondary to COVID-19 PNA Continue oxygen supplementation with BIPAP #COVID-19 Pneumonia Continue antibiotics Continue steroids Remdesivir s/p tocilizumab Oxygen supplementation with BiPAP Trend inflammatory markers Prone positioning strongly advised ID and pulmonology following #Right lower extremity DVT D-dimer more than 10,000 US shows RLE DVT. Echocardiogram shows no right heart strain. Continue Lovenox 150 mg twice daily #Sinus bradycardia Likely from remdesivir Monitor for now TSH wnl #Morbid obesity Diet and exercise advised #DVT prophylaxis-Lovenox History Interval history: 30-year-old male with morbid obesity weighing about 310 pounds comes in for intermittent frontal headache for 3 days. In the emergency room patient was very hypoxic but denies shortness of breath or cough. No muscle aches. His oxygen levels are mid 80s. Denies smoking. Work-up in the emergency room showed bilateral patchy opacities in the lungs and hypoxia-hence he was admitted for bilateral pneumonia and possible Covid p neumonia. No significant past medical history 08/11. Patient seen examined at bedside this morning. Has no complaints. Febrile this a.m.-103 Fahrenheit. On Tylenol as needed. COVID-19 test ordered. Remains on steroids. ID consult if COVID-19 is positive. 08/12. His COVID-19 test is positive. He was started on remdesivir last night. Oxygen requirement increased overnight. Inflammatory markers increasing. Repeat chest xray shows worsening infiltrates. Ordered BNP. Lasix 40mg IV ordered. Inc reased dexamethasone to 6mg BID. Pulmonology consulted. Will place on continuous pulse oximetry. Incentive spirometer ordered. Advised prone positioning. 08/13. Not feeling better. Seen on BIPAP. Remains on steroids, remdesivir and antibiotics. Vitals stable. 08/14. Still maintaining sats even on BiPAP. Lasix 40 mg IV ordered. D-dimer this a.m. is more than 10,000. Lovenox increased to 150 mg twice daily. Ultrasound lower extremities Doppler showed a right DVT. Echocardiogram ordered to rule out right heart strain. Pending results, patient may need vascular surgery evaluation for possible thrombectomy. Continue on BiPAP and continue to monitor respiratory status closely. 08/15. Sats better this AM. Received toculizumab yesterday. Advised him to prone as much as possible. Echo shows normal EF with no right heart strain. I/Os reviewed. He is diuresing well. Renal function is stable. Will give additional lasix today. Pulmonology following 08/16. Remains on remdesivir. Still on BIPAP. Will give lasix 20mg IV. HR is low - likley effect of remdesivir. Will continue to monitor closely 08/17. Sats in the 90's this AM. Still on BIPAP. Hospitalist Physical - Physical exam Narrative exam: VITAL SIGNS: Reviewed. GENERAL: Awake HEAD: No signs of head trauma. EYES: Pupils are equal. Extraocular motions intact. MOUTH: Oropharynx is normal. NECK: No adenopathy, no JVD. CHEST: Chest with diminished breath sounds bilaterally. No wheezes, rales, or rhonchi. CARDIAC: normal S1 and S2, without murmurs, gallops, or rubs. ABDOMEN: Soft, non tender and non distended. No rebound or guarding, and no masses palpated. Bowel Sounds normal. MUSCULOSKELETAL: No edema NEUROLOGIC EXAM: Alert and oriented x3. No focal neurologic deficits SKIN: No obvious lesions - Constitutional Vitals: Temp Pulse Resp BP Pulse Ox 98.9 F 53 L 20 104/53 100 08/17/20 08:00 08/17/20 11:00 08/17/20 11:00 08/17/20 11:00 08/17/20 11:00 Results - Labs CBC & Chem 7: 08/17/20 05:06 08/17/20 05:06 Labs: Laboratory Last Values WBC 20.7 K/mm3 (4.5-11.0) H 08/17/20 05:06 RBC 4.83 M/mm3 (3.65-5.03) 08/17/20 05:06 Hgb 13.9 gm/dl (11.8-15.2) 08/17/20 05:06 Hct 42.4 % (35.5-45.6) 08/17/20 05:06 MCV 88 fl (84-94) 08/17/20 05:06 MCH 29 pg (28-32) 08/17/20 05:06 MCHC 33 % (32-34) 08/17/20 05:06 RDW 13.6 % (13.2-15.2) 08/17/20 05:06 Plt Count 333 K/mm3 (140-440) 08/17/20 05:06 Lymph % (Auto) 8.2 % (13.4-35.0) L 08/16/20 05:26 Robertson % (Auto) 4.7 % (0.0-7.3) 08/16/20 05:26 Eos % (Auto) 0.2 % (0.0-4.3) 08/16/20 05:26 Baso % (Auto) 0.7 % (0.0-1.8) 08/16/20 05:26 Lymph # (Auto) 1.5 K/mm3 (1.2-5.4) 08/16/20 05:26 Robertson # (Auto) 0.8 K/mm3 (0.0-0.8) 08/16/20 05:26 Eos # (Auto) 0.0 K/mm3 (0.0-0.4) 08/16/20 05:26 Baso # (Auto) 0.1 K/mm3 (0.0-0.1) 08/16/20 05:26 Add Manual Diff Complete 08/17/20 05:06 Total Counted 100 08/17/20 05:06 Seg Neutrophils % 86.2 % (40.0-70.0) H 08/16/20 05:26 Seg Neuts % (Manual) 86.0 % (40.0-70.0) H 08/17/20 05:06 Lymphocytes % (Manual) 7.0 % (13.4-35.0) L 08/17/20 05:06 Monocytes % (Manual) 6.0 % (0.0-7.3) 08/17/20 05:06 Eosinophils % (Manual) 1.0 % (0.0-4.3) 08/17/20 05:06 Metamyelocytes % 2.0 % 08/15/20 05:16 Nucleated RBC % Not Reportable 08/17/20 05:06 Seg Neutrophils # 15.3 K/mm3 (1.8-7.7) H 08/16/20 05:26 Seg Neutrophils # Man 17.8 K/mm3 (1.8-7.7) H 08/17/20 05:06 Band Neutrophils # 0.0 K/mm3 08/17/20 05:06 Lymphocytes # (Manual) 1.4 K/mm3 (1.2-5.4) 08/17/20 05:06 Abs React Lymphs (Man) 0.0 K/mm3 08/17/20 05:06 Monocytes # (Manual) 1.2 K/mm3 (0.0-0.8) H 08/17/20 05:06 Eosinophils # (Manual) 0.2 K/mm3 (0.0-0.4) 08/17/20 05:06 Basophils # (Manual) 0.0 K/mm3 (0.0-0.1) 08/17/20 05:06 Metamyelocytes # 0.0 K/mm3 08/17/20 05:06 Myelocytes # 0.0 K/mm3 08/17/20 05:06 Promyelocytes # 0.0 K/mm3 08/17/20 05:06 Blast Cells # 0.0 K/mm3 08/17/20 05:06 WBC Morphology Not Reportable 08/17/20 05:06 Hypersegmented Neuts Not Reportable 08/17/20 05:06 Hyposegmented Neuts Not Reportable 08/17/20 05:06 Hypogranular Neuts Not Reportable 08/17/20 05:06 Smudge Cells Not Reportable 08/17/20 05:06 Toxic Granulation Not Reportable 08/17/20 05:06 Toxic Vacuolation Not Reportable 08/17/20 05:06 Dohle Bodies Not Reportable 08/17/20 05:06 Pelger-Huet Anomaly Not Reportable 08/17/20 05:06 Juan Luis Rods Not Reportable 08/17/20 05:06 Platelet Estimate Consistent w auto 08/17/20 05:06 Clumped Platelets Not Reportable 08/17/20 05:06 Plt Clumps, EDTA Not Reportable 08/17/20 05:06 Large Platelets Not Reportable 08/17/20 05:06 Giant Platelets Not Reportable 08/17/20 05:06 Platelet Satelliting Not Reportable 08/17/20 05:06 Plt Morphology Comment Not Reportable 08/17/20 05:06 RBC Morphology Not Reportable 08/17/20 05:06 Dimorphic RBCs Not Reportable 08/17/20 05:06 Polychromasia Not Reportable 08/17/20 05:06 Hypochromasia Not Reportable 08/17/20 05:06 Poikilocytosis Not Reportable 08/17/20 05:06 Anisocytosis Few 08/17/20 05:06 Microcytosis Not Reportable 08/17/20 05:06 Macrocytosis Not Reportable 08/17/20 05:06 Spherocytes Not Reportable 08/17/20 05:06 Pappenheimer Bodies Not Reportable 08/17/20 05:06 Sickle Cells Not Reportable 08/17/20 05:06 Target Cells Not Reportable 08/17/20 05:06 Tear Drop Cells Not Reportable 08/17/20 05:06 Ovalocytes Not Reportable 08/17/20 05:06 Helmet Cells Not Reportable 08/17/20 05:06 [place] Bodies Not Reportable 08/17/20 05:06 Aydlett Rings Not Reportable 08/17/20 05:06 Century Cells Not Reportable 08/17/20 05:06 Bite Cells Not Reportable 08/17/20 05:06 Crenated Cell Not Reportable 08/17/20 05:06 Elliptocytes Not Reportable 08/17/20 05:06 Acanthocytes (Spur) Not Reportable 08/17/20 05:06 Rouleaux Not Reportable 08/17/20 05:06 Hemoglobin C Crystals Not Reportable 08/17/20 05:06 Schistocytes Not Reportable 08/17/20 05:06 Malaria parasites Not Reportable 08/17/20 05:06 Asif Bodies Not Reportable 08/17/20 05:06 Hem Pathologist Commnt No 08/17/20 05:06 PT 12.6 Sec. (12.2-14.9) 08/10/20 08:29 INR 0.96 (0.87-1.13) 08/10/20 08:29 D-Dimer > 92854 ng/mlDDU (0-234) H 08/16/20 05:26 ABG pH 7.443 (7.320-7.450) 08/14/20 08:23 POC ABG pCO2 46.9 mmHg (32.0-48.0) 08/14/20 08:23 ABG pCO2 62.9 mm Hg 08/12/20 14:55 POC ABG pO2 50.0 mmHg (83-108) L 08/14/20 08:23 ABG pO2 65.8 mm Hg (80.0-90.0) L 08/12/20 14:55 POC ABG HCO3 31.4 08/14/20 08:23 ABG HCO3 31.4 mmol/L (20.0-26.0) H 08/12/20 14:55 ABG O2 Saturation 85.0 (0-100) 08/14/20 08:23 ABG O2 Content 24.3 (0.0-44) 08/12/20 14:55 POC ABG Base Excess 6.3 08/14/20 08:23 ABG Base Excess 2.6 mmol/L (-2.0-3.0) 08/12/20 14:55 ABG Hemoglobin 13.4 (12.0-17.5) 08/14/20 08:23 ABG Oxyhemoglobin 84.0 (94-98) L 08/14/20 08:23 ABG Carboxyhemoglobin 1.7 % (0.0-5.0) 08/12/20 14:55 ABG Methemoglobin 0.3 (0.0-1.5) 08/14/20 08:23 ABG Sodium 139.2 mmol/L (136.0-145.0) 08/14/20 08:23 ABG Potassium 4.5 mmol/L (3.40-4.50) 08/14/20 08:23 ABG Chloride 99.0 mmol/L (98-107) 08/14/20 08:23 ABG Glucose 141 mg/dL (65-95) H 08/14/20 08:23 VBG pH 7.303 (7.320-7.420) L 08/10/20 08:29 Oxyhemoglobin 89.7 % (95.0-99.0) L 08/12/20 14:55 Carboxyhemoglobin 0.9 (0.5-1.5) 08/14/20 08:23 FiO2 60 % 08/12/20 14:55 FiO2 % 100 08/14/20 08:23 Sodium 137 mmol/L (137-145) 08/17/20 05:06 Potassium 5.0 mmol/L (3.6-5.0) 08/17/20 05:06 Chloride 96.5 mmol/L (98-107) L 08/17/20 05:06 Carbon Dioxide 31 mmol/L (22-30) H 08/17/20 05:06 Anion Gap 15 mmol/L 08/17/20 05:06 BUN 29 mg/dL (9-20) H 08/17/20 05:06 Creatinine 0.9 mg/dL (0.8-1.3) 08/17/20 05:06 Estimated GFR > 60 ml/min 08/17/20 05:06 BUN/Creatinine Ratio 32 % 08/17/20 05:06 Glucose 121 mg/dL (75-100) H 08/17/20 05:06 POC Glucose 110 mg/dL (70-105) H 08/17/20 07:51 Hemoglobin A1c 6.1 % (4-6) H 08/11/20 05:39 Lactic Acid 0.80 mmol/L (0.7-2.0) 08/10/20 11:18 Calcium 9.1 mg/dL (8.4-10.2) 08/17/20 05:06 Ferritin 1013.0 ng/mL (30.0-300.0) H 08/16/20 05:26 Total Bilirubin 0.50 mg/dL (0.1-1.2) 08/17/20 05:06 AST 46 units/L (5-40) H 08/17/20 05:06 ALT 41 units/L (7-56) 08/17/20 05:06 Alkaline Phosphatase 83 units/L (35-129) 08/17/20 05:06 Lactate Dehydrogenase 1150 units/L (91-180) H 08/15/20 05:16 C-Reactive Protein 4.00 mg/dL (0.00-1.30) H 08/16/20 05:26 NT-Pro-B Natriuret Pep 36.40 pg/mL (0-450) 08/12/20 06:29 Total Protein 7.0 g/dL (6.3-8.2) 08/17/20 05:06 Albumin 3.7 g/dL (3.9-5) L 08/17/20 05:06 Albumin/Globulin Ratio 1.1 % 08/17/20 05:06 Procalcitonin 0.22 ng/mL (<0.15) 08/16/20 05:26 TSH 1.830 mlU/mL (0.270-4.200) 08/17/20 05:06 Free T4 1.01 ng/dL (0.76-1.46) 08/17/20 05:06 Arterial Blood Glucose 141 mg/dL (65-95) H 08/14/20 08:23 Arterial Blood Ionized Calcium 4.8 mg/dL (4.6-5.3) 08/14/20 08:23 Urine Color Yellow (Yellow) 08/10/20 Unknown Urine Turbidity Cloudy (Clear) 08/10/20 Unknown Urine pH 5.0 (5.0-7.0) 08/10/20 Unknown Ur Specific Jackson 1.025 (1.003-1.030) 08/10/20 Unknown Urine Protein 30 mg/dl mg/dL (Negative) 08/10/20 Unknown Urine Glucose (UA) 150 mg/dL (Negative) 08/10/20 Unknown Urine Ketones Negative mg/dL (Negative) 08/10/20 Unknown Urine Blood Negative (Negative) 08/10/20 Unknown Urine Nitrite Negative (Negative) 08/10/20 Unknown Urine Bilirubin Negative (Negative) 08/10/20 Unknown Urine Urobilinogen < 2.0 mg/dL (<2.0) 08/10/20 Unknown Ur Leukocyte Esterase Negative (Negative) 08/10/20 Unknown Urine WBC (Auto) 5.0 /HPF (0.0-6.0) 08/10/20 Unknown Urine RBC (Auto) 2.0 /HPF (0.0-6.0) 08/10/20 Unknown U Epithel Cells (Auto) 1.0 /HPF (0-13.0) 08/10/20 Unknown Urine Bacteria (Auto) 1+ /HPF (Negative) 08/10/20 Unknown Urine Mucus 3+ /HPF 08/10/20 Unknown Coronavirus (PCR) Positive (Negative) A 08/11/20 Unknown Gaytan/IV: Voiding Method Condom Catheter Active Medications - Current Medications Current Medications: Generic Name Dose Route Start Last Admin Trade Name Freq PRN Reason Stop Dose Admin Acetaminophen 650 mg 08/10/20 23:48 08/13/20 22:56 Acetaminophen 325 Mg Tab PO 650 mg Q4H PRN Administration Pain MILD(1-3)/Fever >100.5/MARTINEZ Artificial Tears 2 drops 08/16/20 13:44 Hypromellose 0.5% Ophth Soln 15 Ml OU Q4H PRN Dry Eye(s) Ascorbic Acid 500 mg 08/12/20 10:00 08/17/20 09:55 Ascorbic Acid 500 Mg Tab PO 500 mg BID MELANIE Administration Dexamethasone 6 mg 08/12/20 10:00 08/17/20 09:53 Dexamethasone 4 Mg/Ml Vial IV 08/21/20 22:01 6 mg Q12HR MELANIE Administration Enoxaparin Sodium 150 mg 08/14/20 10:00 08/17/20 09:54 Enoxaparin 150 Mg/1 Ml Inj SUB-Q 150 mg Q12HR MELANIE Administration Famotidine 20 mg 08/11/20 10:00 08/17/20 09:55 Famotidine 20 Mg/2 Ml Inj IV 20 mg BID MELANIE Administration REMDESIVIR 100 mg/ Sodium 250 mls @ 500 mls/hr 08/14/20 15:00 08/16/20 20:31 Chloride IV 08/17/20 21:29 500 mls/hr Q24HR@2100 MELANIE Administration Metoclopramide HCl 10 mg 08/10/20 23:48 Metoclopramide 10 Mg/2 Ml Inj IV Q6H PRN Nausea And Vomiting Morphine Sulfate 2 mg 08/10/20 23:48 Morphine 2 Mg/1 Ml Inj IV Q4H PRN Pain, Moderate (4-6) Ondansetron HCl 4 mg 08/10/20 23:48 Ondansetron 4 Mg/2 Ml Inj IV Q8H PRN Nausea And Vomiting Oxycodone/Acetaminophen 1 tab 08/10/20 23:48 Oxycodone /Acetaminophen 5-325mg Tab PO Q6H PRN Pain, Moderate (4-6) Sodium Chloride 10 ml 08/11/20 10:00 08/17/20 11:08 Sodium Chloride 0.9% 10 Ml Flush Syringe IV 10 ml BID MELANIE Administration Sodium Chloride 10 ml 08/10/20 23:48 08/12/20 21:04 Sodium Chloride 0.9% 10 Ml Flush Syringe IV 10 ml PRN PRN Administration LINE FLUSH Sodium Chloride 50 ml 08/14/20 21:00 08/16/20 20:31 Sodium Chloride 0.9% 50 Ml Ivpb IV 08/17/20 21:01 50 ml Q24HR@2100 MELANIE Administration Zinc Sulfate 220 mg 08/12/20 12:00 08/17/20 09:55 Zinc Sulfate 220 Mg Cap PO 220 mg QDAY MELANIE Administration Nutrition/Malnutrition Assess - Dietary Evaluation Nutrition/Malnutrition Findings: Nutrition Notes Start: 08/17/20 10:49 Freq: Status: Active Protocol: Document 08/17/20 10:49 GHADA (Rec: 08/17/20 11:00 GHADA [id number]) Nutrition Notes Need for Assessment generated from: LOS Initial or Follow up Assessment Other Pertinent Diagnosis COVID-19 (+), pneu, RLE DVT, sinus bradycardia Current Diet Regular Labs/Tests BUN 29 CO2 - 31 Pertinent Medications Vit C, Decadron, Zinc sulfate Height 5 ft 11 in Weight 147.5 kg [place] Body Weight (kg) 78.18 BMI 45.3 Weight Status Morbidly Obese Subjective/Other Information Pt screened for LOS. He consumed 25% of 3 meals on (no other PO intakes documented). Unable to reach pt via phone at 10:35. Pulmonary wants to try to prevent intubation, but will do so if necessary. Pt being proned as tolerated and is on BiPap support. Will order ONS , as drinking is likely easier than chewing at this time. Percent of energy/protein needs met: 28% energy 25% pro Burn Absent Trauma Absent Current % PO Poor (25-49%) Minimum of two criteria No #1 Nutrition Diagnosis Inadequate oral intake Etiology COVID-19 (+), continuous BiPap support As Evidenced by Signs and Symptoms pt consuming <50% of meals Is patient on ventilator? No Is Patient Ambulatory and/or Out of Bed No REE-([facility]-confined to bed) 2955.564 Kcal/Kg value to use for calculation 14 Approximate Energy Requirements Using 5 kcal/Kg Calculation Used for Recommendations Kcal/kg Additional Notes Pro needs 0.8-1g/kg adjBW: 90- 113g/day Fluid needs 1ml/kcal Nutrition Intervention Change Diet Order: Continue current diet as tolerated Add Supplement/Snack (indicate name/kcal Ensure High Protein BID /protein ) Provides kCal: 320 Provides Protein (gm) 32 Goal #1 PO tolerance Goal #2 PO intake of meals plus ONS to meet at least 75% energy and pro needs Anticipated Discharge Needs: Unable to identify at this time Follow-Up By: 08/21/20 Additional Comments F/U: intakes (meals, ONS), intubation vs BiPap use
--- NOTE | 2020-08-17 12:29 | Progress Note ---
Assessment and Plan Cultures: Blood culture 08/10/2020 no growth SARS CoV2 PCR positive 08/10/2020 urine culture: No growth Assessment: 30 years old male with history of morbid obesity, admitted on 08/10/2020 secondary to 3-day history of intermittent frontal headache: #Bilateral pneumonia: Secondary to COVID-19. On steroids, remdesivir. S/P actemra on 08/14/2020. Completed empiric abx course. Procal is low, additional abx not needed. #Acute hypoxemic respiratory failure: Worsened, requiring on BiPAP. #Acute right leg DVT. #LONNY: Resolved #Morbid obesity: Associated with worse outcomes Recommendations: -Continue dexamethasone for 10 days -Continue remdesivir x 5 days -Monitor inflammatory markers - ferritin, Ddimer, CRP, LDH, ordered -continue anticoagulation for DVT -prone positioning whenever possible Catracho Ng MD, FACP [facility] O: [phone] F: [phone] Subjective Date of service: 08/17/20 Interval history: Remains on BiPAP. No fever Objective - Exam Narrative Exam: Physical Exam (reviewed in chart to minimize risk of transmission) Constitutional: deferred Head, Ears, Nose: deferred Eyes: deferred Neck: deferred Oral: deferred Cardiovascular: deferred Respiratory: deferred GI: deferred Musculoskeletal: deferred Skin: deferred Hem/Lymphatic: deferred Psych: deferred Neurological: deferred - Constitutional Vitals: Vital Signs Temp Pulse Resp BP Pulse Ox 98.9 F 53 L 20 104/53 100 08/17/20 08:00 08/17/20 11:00 08/17/20 11:00 08/17/20 11:00 08/17/20 11:00 Temperature -Last 24 Hours Temperature 98.9 F - Labs CBC & Chem 7: 08/17/20 05:06 08/17/20 05:06 Labs: Abnormal lab results 08/17/20 08/17/20 08/17/20 Range/Units 05:06 05:06 07:51 WBC 20.7 H (4.5-11.0) K/mm3 Seg Neuts % (Manual) 86.0 H (40.0-70.0) % Lymphocytes % (Manual) 7.0 L (13.4-35.0) % Seg Neutrophils # Man 17.8 H (1.8-7.7) K/mm3 Monocytes # (Manual) 1.2 H (0.0-0.8) K/mm3 Chloride 96.5 L (98-107) mmol/L Carbon Dioxide 31 H (22-30) mmol/L BUN 29 H (9-20) mg/dL Glucose 121 H (75-100) mg/dL POC Glucose 110 H (70-105) mg/dL AST 46 H (5-40) units/L Albumin 3.7 L (3.9-5) g/dL
[2020-08-17] MEDS ORDERED: FUROSEMIDE 20 MG/2 ML INJ IV SCH (12:30)
[2020-08-17] MEDS: SODIUM CHLORIDE 0.9% 50 ML IVPB IV SCH (21:44)
[2020-08-17] MEDS: REMDESIVIR 100 MG in SODIUM CHLORIDE 0.9% 250ML 250 ML IV SCH (21:44)
[2020-08-17] MEDS: ACETAMINOPHEN 325 MG TAB PO PRN (21:53)
[2020-08-18 05:53] LABS: BUN/Creatinine Ratio 33
[2020-08-18 05:54] LABS: Alanine Aminotransferase 50 units/L (7-56); Albumin 3.7 g/dL (3.9-5); Blood Urea Nitrogen 33 mg/dL (9-20); Hemolysis Index 34
[2020-08-18] MEDS: dexAMETHasone 4 MG/ML VIAL IV SCH ×2 (09:07→22:08)
[2020-08-18] MEDS: FAMOTIDINE 20 MG/2 ML INJ IV SCH ×2 (09:07→22:09)
[2020-08-18] MEDS: ASCORBIC ACID 500 MG TAB PO SCH ×2 (09:07→22:11)
[2020-08-18] MEDS: ENOXAPARIN 150 MG/1 ML INJ SUB-Q SCH ×2 (09:07→22:09)
[2020-08-18] MEDS: oxyCODONE /ACETAMINOPHEN 5-325MG TAB PO PRN (09:07)
[2020-08-18] MEDS: ZINC SULFATE 220 MG CAP PO SCH (09:27)
--- NOTE | 2020-08-18 09:45 | Progress Note ---
Assessment and Plan Assessment and plan: --Acute hypoxic respiratory failure secondary to COVID-19 PNA Continue oxygen supplementation with BIPAP --COVID-19 Pneumonia Continue antibiotics Continue steroids Remdesivir s/p tocilizumab Oxygen supplementation with BiPAP Trend inflammatory markers Prone positioning strongly advised ID and pulmonology following --Right lower extremity DVT D-dimer more than 10,000 US shows RLE DVT. Echocardiogram shows no right heart strain. Continue Lovenox 150 mg twice daily --Sinus bradycardia Likely from remdesivir Monitor for now TSH wnl --Morbid obesity Diet and exercise advised --DVT prophylaxis-Lovenox Brief history 30-year-old male with morbid obesity weighing about 310 pounds comes in for intermittent frontal headache for 3 days. In the emergency room patient was very hypoxic but denies shortness of breath or cough. No muscle aches. His oxygen levels are mid 80s. Denies smoking. Work-up in the emergency room showed bilateral patchy opacities in the lungs and hypoxia-hence he was admitted for bilateral pneumonia and possible Covid pneumonia. No significant past medical history 08/11. Patient seen examined at bedside this morning. Has no complaints. Febrile this a.m.-103 Fahrenheit. On Tylenol as needed. COVID-19 test ordered. Remains on steroids. ID consult if COVID-19 is positive. 08/12. His COVID-19 test is positive. He was started on remdesivir last night. Oxygen requirement increased overnight. Inflammatory markers increasing. Repeat chest xray shows worsening infiltrates. Ordered BNP. Lasix 40mg IV ordered. Increased dexamethasone to 6mg BID. Pulmonology consulted. Will place on continuous pulse oximetry. Incentive spirometer ordered. Advised prone positioning. 08/13. Not feeling better. Seen on BIPAP. Remains on steroids, remdesivir and antibiotics. Vitals stable. 08/14. Still maintaining sats even on BiPAP. Lasix 40 mg IV ordered. D-dimer this a.m. is more than 10,000. Lovenox increased to 150 mg twice daily. Ultra sound lower extremities Doppler showed a right DVT. Echocardiogram ordered to rule out right heart strain. Pending results, patient may need vascular surgery evaluation for possible thrombectomy. Continue on BiPAP and continue to monitor respiratory status closely. 08/15. Sats better this AM. Received toculizumab yesterday. Advised him to prone as much as possible. Echo shows normal EF with no right heart strain. I/Os reviewed. He is diuresing well. Renal function is stable. Will give additional lasix today. Pulmonology following 08/16. Remains on remdesivir. Still on BIPAP. Will give lasix 20mg IV. HR is low - likley effect of remdesivir. Will continue to monitor closely 08/17. Sats in the 90's this AM. Still on BIPAP. 08/18; patient remains hypoxic requiring BiPAP and 100% nonrebreather intermittently ID pulmonary following follow the recommendations Closely monitor the patient and adjust the management as needed History Interval history: I have seen and examined the patient in IMCU this morning Patient's chart and medications reviewed . I followed strict isolation precautions PPE protocols per COVID-19 guidelines throughout my interaction with this patient and in evaluation Patient is Covid positive , severely hypoxemic requiring BiPAP and intermittent 100% nonrebreather Feels slightly better Morbidly obese with BMI of 45.4 Vital signs reviewed Hospitalist Physical - Constitutional Vitals: Temp Pulse Resp BP Pulse Ox 98.8 F 51 L 18 136/68 92 08/18/20 08:00 08/18/20 08:00 08/18/20 09:07 08/18/20 08:00 08/18/20 08:00 General appearance: Present: no acute distress, well-nourished, obese (Morbidly obese) - EENT Eyes: Present: PERRL, EOM intact - Neck Neck: Present: supple, normal ROM - Respiratory Respiratory effort: normal Respiratory: bilateral: diminished, negative: rales, rhonchi, wheezing - Cardiovascular Rhythm: regular Heart Sounds: Present: S1 & S2 - Extremities Extremities: no ischemia, No edema - Abdominal General gastrointestinal: soft, non-tender, non-distended, normal bowel sounds - Integumentary Integumentary: Present: clear, warm - Psychiatric Psychiatric: appropriate mood/affect, cooperative - Neurologic Neurologic: CNII-XII intact, moves all extremities (Disease) Results - Labs CBC & Chem 7: 08/17/20 05:06 08/18/20 05:13 Labs: Laboratory Last Values WBC 20.7 K/mm3 (4.5-11.0) H 08/17/20 05:06 RBC 4.83 M/mm3 (3.65-5.03) 08/17/20 05:06 Hgb 13.9 gm/dl (11.8-15.2) 08/17/20 05:06 Hct 42.4 % (35.5-45.6) 08/17/20 05:06 MCV 88 fl (84-94) 08/17/20 05:06 MCH 29 pg (28-32) 08/17/20 05:06 MCHC 33 % (32-34) 08/17/20 05:06 RDW 13.6 % (13.2-15.2) 08/17/20 05:06 Plt Count 333 K/mm3 (140-440) 08/17/20 05:06 Lymph % (Auto) 8.2 % (13.4-35.0) L 08/16/20 05:26 Ritchie % (Auto) 4.7 % (0.0-7.3) 08/16/20 05:26 Eos % (Auto) 0.2 % (0.0-4.3) 08/16/20 05:26 Baso % (Auto) 0.7 % (0.0-1.8) 08/16/20 05:26 Lymph # (Auto) 1.5 K/mm3 (1.2-5.4) 08/16/20 05:26 Ritchie # (Auto) 0.8 K/mm3 (0.0-0.8) 08/16/20 05:26 Eos # (Auto) 0.0 K/mm3 (0.0-0.4) 08/16/20 05:26 Baso # (Auto) 0.1 K/mm3 (0.0-0.1) 08/16/20 05:26 Add Manual Diff Complete 08/17/20 05:06 Total Counted 100 08/17/20 05:06 Seg Neutrophils % 86.2 % (40.0-70.0) H 08/16/20 05:26 Seg Neuts % (Manual) 86.0 % (40.0-70.0) H 08/17/20 05:06 Lymphocytes % (Manual) 7.0 % (13.4-35.0) L 08/17/20 05:06 Monocytes % (Manual) 6.0 % (0.0-7.3) 08/17/20 05:06 Eosinophils % (Manual) 1.0 % (0.0-4.3) 08/17/20 05:06 Metamyelocytes % 2.0 % 08/15/20 05:16 Nucleated RBC % Not Reportable 08/17/20 05:06 Seg Neutrophils # 15.3 K/mm3 (1.8-7.7) H 08/16/20 05:26 Seg Neutrophils # Man 17.8 K/mm3 (1.8-7.7) H 08/17/20 05:06 Band Neutrophils # 0.0 K/mm3 08/17/20 05:06 Lymphocytes # (Manual) 1.4 K/mm3 (1.2-5.4) 08/17/20 05:06 Abs React Lymphs (Man) 0.0 K/mm3 08/17/20 05:06 Monocytes # (Manual) 1.2 K/mm3 (0.0-0.8) H 08/17/20 05:06 Eosinophils # (Manual) 0.2 K/mm3 (0.0-0.4) 08/17/20 05:06 Basophils # (Manual) 0.0 K/mm3 (0.0-0.1) 08/17/20 05:06 Metamyelocytes # 0.0 K/mm3 08/17/20 05:06 Myelocytes # 0.0 K/mm3 08/17/20 05:06 Promyelocytes # 0.0 K/mm3 08/17/20 05:06 Blast Cells # 0.0 K/mm3 08/17/20 05:06 WBC Morphology Not Reportable 08/17/20 05:06 Hypersegmented Neuts Not Reportable 08/17/20 05:06 Hyposegmented Neuts Not Reportable 08/17/20 05:06 Hypogranular Neuts Not Reportable 08/17/20 05:06 Smudge Cells Not Reportable 08/17/20 05:06 Toxic Granulation Not Reportable 08/17/20 05:06 Toxic Vacuolation Not Reportable 08/17/20 05:06 Dohle Bodies Not Reportable 08/17/20 05:06 Pelger-Huet Anomaly Not Reportable 08/17/20 05:06 Juan Luis Rods Not Reportable 08/17/20 05:06 Platelet Estimate Consistent w auto 08/17/20 05:06 Clumped Platelets Not Reportable 08/17/20 05:06 Plt Clumps, EDTA Not Reportable 08/17/20 05:06 Large Platelets Not Reportable 08/17/20 05:06 Giant Platelets Not Reportable 08/17/20 05:06 Platelet Satelliting Not Reportable 08/17/20 05:06 Plt Morphology Comment Not Reportable 08/17/20 05:06 RBC Morphology Not Reportable 08/17/20 05:06 Dimorphic RBCs Not Reportable 08/17/20 05:06 Polychromasia Not Reportable 08/17/20 05:06 Hypochromasia Not Reportable 08/17/20 05:06 Poikilocytosis Not Reportable 08/17/20 05:06 Anisocytosis Few 08/17/20 05:06 Microcytosis Not Reportable 08/17/20 05:06 Macrocytosis Not Reportable 08/17/20 05:06 Spherocytes Not Reportable 08/17/20 05:06 Pappenheimer Bodies Not Reportable 08/17/20 05:06 Sickle Cells Not Reportable 08/17/20 05:06 Target Cells Not Reportable 08/17/20 05:06 Tear Drop Cells Not Reportable 08/17/20 05:06 Ovalocytes Not Reportable 08/17/20 05:06 Helmet Cells Not Reportable 08/17/20 05:06 Patterson-Dresser Bodies Not Reportable 08/17/20 05:06 Arnold Rings Not Reportable 08/17/20 05:06 Wall Cells Not Reportable 08/17/20 05:06 Bite Cells Not Reportable 08/17/20 05:06 Crenated Cell Not Reportable 08/17/20 05:06 Elliptocytes Not Reportable 08/17/20 05:06 Acanthocytes (Spur) Not Reportable 08/17/20 05:06 Rouleaux Not Reportable 08/17/20 05:06 Hemoglobin C Crystals Not Reportable 08/17/20 05:06 Schistocytes Not Reportable 08/17/20 05:06 Malaria parasites Not Reportable 08/17/20 05:06 Asif Bodies Not Reportable 08/17/20 05:06 Hem Pathologist Commnt No 08/17/20 05:06 PT 12.6 Sec. (12.2-14.9) 08/10/20 08:29 INR 0.96 (0.87-1.13) 08/10/20 08:29 D-Dimer > 1000 ng/mlDDU (0-234) H 08/18/20 05:13 ABG pH 7.443 (7.320-7.450) 08/14/20 08:23 POC ABG pCO2 46.9 mmHg (32.0-48.0) 08/14/20 08:23 ABG pCO2 62.9 mm Hg 08/12/20 14:55 POC ABG pO2 50.0 mmHg (83-108) L 08/14/20 08:23 ABG pO2 65.8 mm Hg (80.0-90.0) L 08/12/20 14:55 POC ABG HCO3 31.4 08/14/20 08:23 ABG HCO3 31.4 mmol/L (20.0-26.0) H 08/12/20 14:55 ABG O2 Saturation 85.0 (0-100) 08/14/20 08:23 ABG O2 Content 24.3 (0.0-44) 08/12/20 14:55 POC ABG Base Excess 6.3 08/14/20 08:23 ABG Base Excess 2.6 mmol/L (-2.0-3.0) 08/12/20 14:55 ABG Hemoglobin 13.4 (12.0-17.5) 08/14/20 08:23 ABG Oxyhemoglobin 84.0 (94-98) L 08/14/20 08:23 ABG Carboxyhemoglobin 1.7 % (0.0-5.0) 08/12/20 14:55 ABG Methemoglobin 0.3 (0.0-1.5) 08/14/20 08:23 ABG Sodium 139.2 mmol/L (136.0-145.0) 08/14/20 08:23 ABG Potassium 4.5 mmol/L (3.40-4.50) 08/14/20 08:23 ABG Chloride 99.0 mmol/L (98-107) 08/14/20 08:23 ABG Glucose 141 mg/dL (65-95) H 08/14/20 08:23 VBG pH 7.303 (7.320-7.420) L 08/10/20 08:29 Oxyhemoglobin 89.7 % (95.0-99.0) L 08/12/20 14:55 Carboxyhemoglobin 0.9 (0.5-1.5) 08/14/20 08:23 FiO2 60 % 08/12/20 14:55 FiO2 % 100 08/14/20 08:23 Sodium 133 mmol/L (137-145) L 08/18/20 05:13 Potassium 4.9 mmol/L (3.6-5.0) 08/18/20 05:13 Chloride 94.7 mmol/L (98-107) L 08/18/20 05:13 Carbon Dioxide 27 mmol/L (22-30) 08/18/20 05:13 Anion Gap 16 mmol/L 08/18/20 05:13 BUN 33 mg/dL (9-20) H 08/18/20 05:13 Creatinine 1.0 mg/dL (0.8-1.3) 08/18/20 05:13 Estimated GFR > 60 ml/min 08/18/20 05:13 BUN/Creatinine Ratio 33 % 08/18/20 05:13 Glucose 110 mg/dL (75-100) H 08/18/20 05:13 POC Glucose 143 mg/dL (70-105) H 08/17/20 21:45 Hemoglobin A1c 6.1 % (4-6) H 08/11/20 05:39 Lactic Acid 0.80 mmol/L (0.7-2.0) 08/10/20 11:18 Calcium 9.0 mg/dL (8.4-10.2) 08/18/20 05:13 Ferritin 979.8 ng/mL (30.0-300.0) H 08/18/20 05:13 Total Bilirubin 0.50 mg/dL (0.1-1.2) 08/18/20 05:13 AST 50 units/L (5-40) H 08/18/20 05:13 ALT 50 units/L (7-56) 08/18/20 05:13 Alkaline Phosphatase 103 units/L (35-129) 08/18/20 05:13 Lactate Dehydrogenase 1150 units/L (91-180) H 08/15/20 05:16 C-Reactive Protein 1.00 mg/dL (0.00-1.30) 08/18/20 05:13 NT-Pro-B Natriuret Pep 36.40 pg/mL (0-450) 08/12/20 06:29 Total Protein 6.9 g/dL (6.3-8.2) 08/18/20 05:13 Albumin 3.7 g/dL (3.9-5) L 08/18/20 05:13 Albumin/Globulin Ratio 1.1 % 08/18/20 05:13 Procalcitonin 0.22 ng/mL (<0.15) 08/16/20 05:26 TSH 1.830 mlU/mL (0.270-4.200) 08/17/20 05:06 Free T4 1.01 ng/dL (0.76-1.46) 08/17/20 05:06 Arterial Blood Glucose 141 mg/dL (65-95) H 08/14/20 08:23 Arterial Blood Ionized Calcium 4.8 mg/dL (4.6-5.3) 08/14/20 08:23 Urine Color Yellow (Yellow) 08/10/20 Unknown Urine Turbidity Cloudy (Clear) 08/10/20 Unknown Urine pH 5.0 (5.0-7.0) 08/10/20 Unknown Ur Specific [place] 1.025 (1.003-1.030) 08/10/20 Unknown Urine Protein 30 mg/dl mg/dL (Negative) 08/10/20 Unknown Urine Glucose (UA) 150 mg/dL (Negative) 08/10/20 Unknown Urine Ketones Negative mg/dL (Negative) 08/10/20 Unknown Urine Blood Negative (Negative) 08/10/20 Unknown Urine Nitrite Negative (Negative) 08/10/20 Unknown Urine Bilirubin Negative (Negative) 08/10/20 Unknown Urine Urobilinogen < 2.0 mg/dL (<2.0) 08/10/20 Unknown Ur Leukocyte Esterase Negative (Negative) 08/10/20 Unknown Urine WBC (Auto) 5.0 /HPF (0.0-6.0) 08/10/20 Unknown Urine RBC (Auto) 2.0 /HPF (0.0-6.0) 08/10/20 Unknown U Epithel Cells (Auto) 1.0 /HPF (0-13.0) 08/10/20 Unknown Urine Bacteria (Auto) 1+ /HPF (Negative) 08/10/20 Unknown Urine Mucus 3+ /HPF 08/10/20 Unknown Coronavirus (PCR) Positive (Negative) A 08/11/20 Unknown Gaytan/IV: Voiding Method Urinal Active Medications - Current Medications Current Medications: Generic Name Dose Route Start Last Admin Trade Name Freq PRN Reason Stop Dose Admin Acetaminophen 650 mg 08/10/20 23:48 08/17/20 21:53 Acetaminophen 325 Mg Tab PO 650 mg Q4H PRN Administration Pain MILD(1-3)/Fever >100.5/MARTINEZ Artificial Tears 2 drops 08/16/20 13:44 Hypromellose 0.5% Ophth Soln 15 Ml OU Q4H PRN Dry Eye(s) Ascorbic Acid 500 mg 08/12/20 10:00 08/18/20 09:07 Ascorbic Acid 500 Mg Tab PO 500 mg BID MELANIE Administration Dexamethasone 6 mg 08/12/20 10:00 08/18/20 09:07 Dexamethasone 4 Mg/Ml Vial IV 08/21/20 22:01 6 mg Q12HR MELANIE Administration Enoxaparin Sodium 150 mg 08/14/20 10:00 08/18/20 09:07 Enoxaparin 150 Mg/1 Ml Inj SUB-Q 150 mg Q12HR MELANIE Administration Famotidine 20 mg 08/11/20 10:00 08/18/20 09:07 Famotidine 20 Mg/2 Ml Inj IV 20 mg BID MELANIE Administration Metoclopramide HCl 10 mg 08/10/20 23:48 Metoclopramide 10 Mg/2 Ml Inj IV Q6H PRN Nausea And Vomiting Morphine Sulfate 2 mg 08/10/20 23:48 Morphine 2 Mg/1 Ml Inj IV Q4H PRN Pain, Moderate (4-6) Ondansetron HCl 4 mg 08/10/20 23:48 Ondansetron 4 Mg/2 Ml Inj IV Q8H PRN Nausea And Vomiting Oxycodone/Acetaminophen 1 tab 08/10/20 23:48 08/18/20 09:07 Oxycodone /Acetaminophen 5-325mg Tab PO 1 tab Q6H PRN Administration Pain, Moderate (4-6) Sodium Chloride 10 ml 08/11/20 10:00 08/18/20 09:27 Sodium Chloride 0.9% 10 Ml Flush Syringe IV 10 ml BID MELANIE Administration Sodium Chloride 10 ml 08/10/20 23:48 08/12/20 21:04 Sodium Chloride 0.9% 10 Ml Flush Syringe IV 10 ml PRN PRN Administration LINE FLUSH Zinc Sulfate 220 mg 08/12/20 12:00 08/18/20 09:27 Zinc Sulfate 220 Mg Cap PO 220 mg QDAY MELANIE Administration Nutrition/Malnutrition Assess - Dietary Evaluation Nutrition/Malnutrition Findings: Nutrition Notes Start: 08/17/20 10:49 Freq: Status: Active Protocol: Document 08/17/20 10:49 [facility] (Rec: 08/17/20 11:00 [facility] [id number]) Nutrition Notes Need for Assessment generated from: LOS Initial or Follow up Assessment Other Pertinent Diagnosis COVID-19 (+), pneu, RLE DVT, sinus bradycardia Current Diet Regular Labs/Tests BUN 29 CO2 - 31 Pertinent Medications Vit C, Decadron, Zinc sulfate Height 5 ft 11 in Weight 147.5 kg [place] Body Weight (kg) 78.18 BMI 45.3 Weight Status Morbidly Obese Subjective/Other Information Pt screened for LOS. He consumed 25% of 3 meals on (no other PO intakes documented). Unable to reach pt via phone at 10:35. Pulmonary wants to try to prevent intubation, but will do so if necessary. Pt being proned as tolerated and is on BiPap support. Will order ONS , as drinking is likely easier than chewing at this time. Percent of energy/protein needs met: 28% energy 25% pro Burn Absent Trauma Absent Current % PO Poor (25-49%) Minimum of two criteria No #1 Nutrition Diagnosis Inadequate oral intake Etiology COVID-19 (+), continuous BiPap support As Evidenced by Signs and Symptoms pt consuming <50% of meals Is patient on ventilator? No Is Patient Ambulatory and/or Out of Bed No REE-([facility]-confined to bed) 2955.564 Kcal/Kg value to use for calculation 14 Approximate Energy Requirements Using 5 kcal/Kg Calculation Used for Recommendations Kcal/kg Additional Notes Pro needs 0.8-1g/kg adjBW: 90- 113g/day Fluid needs 1ml/kcal Nutrition Intervention Change Diet Order: Continue current diet as tolerated Add Supplement/Snack (indicate name/kcal Ensure High Protein BID /protein ) Provides kCal: 320 Provides Protein (gm) 32 Goal #1 PO tolerance Goal #2 PO intake of meals plus ONS to meet at least 75% energy and pro needs Anticipated Discharge Needs: Unable to identify at this time Follow-Up By: 08/21/20 Additional Comments F/U: intakes (meals, ONS), intubation vs BiPap use
--- NOTE | 2020-08-18 10:33 | Progress Note ---
Assessment and Plan Cultures: Blood culture 08/10/2020 no growth SARS CoV2 PCR positive 08/10/2020 urine culture: No growth Assessment: 30 years old male with history of morbid obesity, admitted on 08/10/2020 secondary to 3-day history of intermittent frontal headache: #Bilateral pneumonia: Secondary to COVID-19. On steroids, completed remdesivir. S/P actemra on 08/14/2020. Completed empiric abx course. Procal is low, additional abx not needed. #Acute hypoxemic respiratory failure: severe, on BiPAP/NRB #Acute right leg DVT, very high d-dimer. On anticoagulation. #LONNY: Resolved #Morbid obesity: Associated with worse outcomes Recommendations: -Continue dexamethasone for 10 days -S/P remdesivir, actemra -Monitor inflammatory markers - ferritin, Ddimer, CRP, LDH, ordered -continue anticoagulation for DVT -prone positioning whenever possible -guarded prognosis. Catracho Ng MD, FACP [facility] ([facility] O: [phone] F: [phone] Subjective Date of service: 08/18/20 Interval history: No fever. on NRB mask today. Objective - Exam Narrative Exam: Physical Exam (reviewed in chart to minimize risk of transmission) Constitutional: deferred Head, Ears, Nose: deferred Eyes: deferred Neck: deferred Oral: deferred Cardiovascular: deferred Respiratory: deferred GI: deferred Musculoskeletal: deferred Skin: deferred Hem/Lymphatic: deferred Psych: deferred Neurological: deferred - Constitutional Vitals: Vital Signs Temp Pulse Resp BP Pulse Ox 98.8 F 60 13 128/68 89 08/18/20 08:00 08/18/20 10:01 08/18/20 10:01 08/18/20 10:01 08/18/20 10:01 Temperature -Last 24 Hours Temperature 98.8 F Temperature 97.8 F Temperature 98.7 F Temperature 100.0 F Temperature 98.5 F - Labs CBC & Chem 7: 08/17/20 05:06 08/18/20 05:13 Labs: Abnormal lab results 08/17/20 08/17/20 08/17/20 Range/Units 07:51 11:42 21:45 D-Dimer (0-234) ng/mlDDU Sodium (137-145) mmol/L Chloride (98-107) mmol/L BUN (9-20) mg/dL Glucose (75-100) mg/dL POC Glucose 110 H 122 H 143 H (70-105) mg/dL Ferritin (30.0-300.0) ng/mL AST (5-40) units/L Albumin (3.9-5) g/dL 08/18/20 08/18/20 08/18/20 Range/Units 05:13 05:13 05:13 D-Dimer > 1000 H (0-234) ng/mlDDU Sodium 133 L (137-145) mmol/L Chloride 94.7 L (98-107) mmol/L BUN 33 H (9-20) mg/dL Glucose 110 H (75-100) mg/dL POC Glucose (70-105) mg/dL Ferritin 979.8 H (30.0-300.0) ng/mL AST 50 H (5-40) units/L Albumin 3.7 L (3.9-5) g/dL
[2020-08-18] MEDS ORDERED: FUROSEMIDE 20 MG/2 ML INJ IV ONE (12:24)
--- NOTE | 2020-08-18 12:30 | Progress Note ---
Assessment and Plan 30 y/o morbidly obese male with acute respiratory failure secondary to COVID 19 pneumonia. now found to have DVT in lower ext. 08/18/20: Bipap pRN and QHS. More lasix today. Prone as tolerated during the day and sleep prone at night. CONtinue to try to hold off on intubation. Guarded prognosis. 08/17/20: Continue anticoagulation. Still trying to prevent intubation however will do electively if and when needed to prevent and emergent situation as patient will likely be difficult given neck and body habitus. Continue prone as tolerated. Steroids and remdesivir. 08/16/20: Anticoagulation. Prone as tolerated. Wean bipap as tolerated. Prognosis remains guarded. Trying to prevent intubation given poor outcomes associated with mechanically ventilated obese COVID patients. 08/15/20: Continue therapeutic anticoagulation. No current indication for vascular consult given no evidence of right heart strain on echo. CT would only be beneficial if we thought it would show large enough clot to warrant EKOS and with no evidence of strain, I doubt that will be the case. Continue proning as much as tolerated. Spoke with mother over the phone to update her. Patient also got actemra on yesterday as well. Prognosis remains guarded 08/14/20: Will accept sats in the mid 80's as long as mental state and work of breathing do not change. AGree with lasix therapy. Found to have large DVT on right. Spoke with [facility] and asked them to order stat echo to look for right heart strain, and if present may need to consider echos. Await echo before vascular consult. Prone if possible. Long discussion with mother on phone. Gave her a list of the meds he is on and what our current plan is. Also very candid with her and son at bedside that the mortality rate with COVID is very very high. 08/13/20: Lasix again today. Continue to alternate between HFNC with NRB and bipap. Prognosis is very very guarded. Very very guarded to poor prognosis given CXR appearance, and body habitus, along with rapid decline in self sustaning oxygen levels. Agree with lasix and increase in steroids. Must prone. Very high likelihood for mechanical ventilation which would carry a high mortality for patient. Will continue to follow. No additional IVF's unless indicated. Subjective Date of service: 08/18/20 Interval history: Still hypoxic but stable. now on HFNC and nRB giving a break of bipap. Tolerating lasix and steroids. Objective Vital Signs - 12hr 08/18/20 08/18/20 08/18/20 00:30 01:00 01:30 Temperature Pulse Rate 80 71 54 L Pulse Rate [ Apical] Pulse Rate [ From Monitor] Respiratory 18 20 9 L Rate Blood Pressure 120/71 115/75 115/75 O2 Sat by Pulse 88 92 95 Oximetry 08/18/20 08/18/20 08/18/20 01:49 02:00 03:00 Temperature Pulse Rate 56 L 60 Pulse Rate [ Apical] Pulse Rate [ From Monitor] Respiratory 14 13 Rate Blood Pressure 116/77 116/77 O2 Sat by Pulse 95 95 93 Oximetry 08/18/20 08/18/20 08/18/20 04:00 05:00 06:00 Temperature 97.8 F Pulse Rate 62 54 L 54 L Pulse Rate [ 51 L Apical] Pulse Rate [ 51 L From Monitor] Respiratory 18 15 15 Rate Blood Pressure 135/73 131/73 123/65 O2 Sat by Pulse 92 93 93 Oximetry 08/18/20 08/18/20 08/18/20 07:00 08:00 09:01 Temperature 98.8 F Pulse Rate 60 53 L 56 L Pulse Rate [ 51 L Apical] Pulse Rate [ 51 L From Monitor] Respiratory 10 L 16 15 Rate Blood Pressure 138/77 136/68 128/68 O2 Sat by Pulse 89 92 94 Oximetry 08/18/20 08/18/20 08/18/20 09:07 09:34 10:01 Temperature Pulse Rate 60 Pulse Rate [ Apical] Pulse Rate [ From Monitor] Respiratory 18 13 Rate Blood Pressure 128/68 O2 Sat by Pulse 90 89 Oximetry 08/18/20 08/18/20 08/18/20 11:01 12:00 12:01 Temperature Pulse Rate 61 61 61 Pulse Rate [ 51 L Apical] Pulse Rate [ 51 L From Monitor] Respiratory 20 18 17 Rate Blood Pressure 128/68 128/68 O2 Sat by Pulse 90 92 99 Oximetry CBC and BMP: 08/17/20 05:06 08/18/20 05:13 ABG, PT/INR, D-dimer: ABG ABG pH 7.443 (7.320-7.450) 08/14/20 08:23 POC ABG pCO2 46.9 mmHg (32.0-48.0) 08/14/20 08:23 ABG pCO2 62.9 mm Hg 08/12/20 14:55 POC ABG pO2 50.0 mmHg (83-108) L 08/14/20 08:23 ABG pO2 65.8 mm Hg (80.0-90.0) L 08/12/20 14:55 POC ABG HCO3 31.4 08/14/20 08:23 ABG O2 Saturation 85.0 (0-100) 08/14/20 08:23 PT/INR, D-dimer PT 12.6 Sec. (12.2-14.9) 08/10/20 08:29 INR 0.96 (0.87-1.13) 08/10/20 08:29 D-Dimer > 1000 ng/mlDDU (0-234) H 08/18/20 05:13 Abnormal lab findings: Abnormal Labs 08/10/20 08/10/20 08/10/20 08:29 08:29 08:29 WBC Lymph % (Auto) [place] % (Auto) 8.4 H Lymph # (Auto) [place] # (Auto) Seg Neutrophils % Seg Neuts % (Manual) Lymphocytes % (Manual) Seg Neutrophils # Seg Neutrophils # Man Lymphocytes # (Manual) Monocytes # (Manual) D-Dimer ABG pH POC ABG pCO2 POC ABG pO2 ABG pO2 ABG HCO3 ABG O2 Saturation ABG Hemoglobin ABG Oxyhemoglobin ABG Potassium ABG Glucose VBG pH 7.303 L Oxyhemoglobin Sodium Potassium Chloride Carbon Dioxide BUN Glucose 132 H POC Glucose Hemoglobin A1c Ferritin AST Lactate Dehydrogenase C-Reactive Protein Albumin Arterial Blood Glucose Coronavirus (PCR) 08/11/20 08/11/20 08/11/20 05:39 05:39 05:39 WBC Lymph % (Auto) 12.5 L [place] % (Auto) Lymph # (Auto) [place] # (Auto) Seg Neutrophils % 84.2 H Seg Neuts % (Manual) Lymphocytes % (Manual) Seg Neutrophils # 9.1 H Seg Neutrophils # Man Lymphocytes # (Manual) Monocytes # (Manual) D-Dimer ABG pH POC ABG pCO2 POC ABG pO2 ABG pO2 ABG HCO3 ABG O2 Saturation ABG Hemoglobin ABG Oxyhemoglobin ABG Potassium ABG Glucose VBG pH Oxyhemoglobin Sodium Potassium Chloride Carbon Dioxide BUN Glucose 125 H POC Glucose Hemoglobin A1c 6.1 H Ferritin AST Lactate Dehydrogenase C-Reactive Protein Albumin Arterial Blood Glucose Coronavirus (PCR) 08/11/20 08/11/20 08/11/20 18:58 18:58 18:58 WBC Lymph % (Auto) [place] % (Auto) Lymph # (Auto) [place] # (Auto) Seg Neutrophils % Seg Neuts % (Manual) Lymphocytes % (Manual) Seg Neutrophils # Seg Neutrophils # Man Lymphocytes # (Manual) Monocytes # (Manual) D-Dimer 464.84 H ABG pH POC ABG pCO2 POC ABG pO2 ABG pO2 ABG HCO3 ABG O2 Saturation ABG Hemoglobin ABG Oxyhemoglobin ABG Potassium ABG Glucose VBG pH Oxyhemoglobin Sodium Potassium Chloride Carbon Dioxide BUN Glucose POC Glucose Hemoglobin A1c Ferritin 528.7 H AST Lactate Dehydrogenase 637 H C-Reactive Protein 11.30 H Albumin Arterial Blood Glucose Coronavirus (PCR) 08/11/20 08/11/20 08/12/20 19:08 Unknown 06:29 WBC 11.2 H Lymph % (Auto) 8.6 L [place] % (Auto) Lymph # (Auto) 1.0 L [place] # (Auto) Seg Neutrophils % 88.3 H Seg Neuts % (Manual) Lymphocytes % (Manual) Seg Neutrophils # 9.8 H Seg Neutrophils # Man Lymphocytes # (Manual) Monocytes # (Manual) D-Dimer ABG pH POC ABG pCO2 POC ABG pO2 ABG pO2 ABG HCO3 ABG O2 Saturation ABG Hemoglobin ABG Oxyhemoglobin ABG Potassium ABG Glucose VBG pH Oxyhemoglobin Sodium Potassium Chloride Carbon Dioxide BUN Glucose 161 H POC Glucose Hemoglobin A1c Ferritin AST Lactate Dehydrogenase C-Reactive Protein Albumin Arterial Blood Glucose Coronavirus (PCR) Positive A 08/12/20 08/12/20 08/12/20 06:29 06:29 06:29 WBC Lymph % (Auto) [place] % (Auto) Lymph # (Auto) [place] # (Auto) Seg Neutrophils % Seg Neuts % (Manual) Lymphocytes % (Manual) Seg Neutrophils # Seg Neutrophils # Man Lymphocytes # (Manual) Monocytes # (Manual) D-Dimer 830.34 H ABG pH POC ABG pCO2 POC ABG pO2 ABG pO2 ABG HCO3 ABG O2 Saturation ABG Hemoglobin ABG Oxyhemoglobin ABG Potassium ABG Glucose VBG pH Oxyhemoglobin Sodium Potassium Chloride Carbon Dioxide 31 H BUN Glucose 138 H POC Glucose Hemoglobin A1c Ferritin 572.6 H AST 42 H Lactate Dehydrogenase 706 H C-Reactive Protein 17.30 H Albumin 3.7 L Arterial Blood Glucose Coronavirus (PCR) 08/12/20 08/12/20 08/12/20 13:21 14:55 21:59 WBC Lymph % (Auto) [place] % (Auto) Lymph # (Auto) [place] # (Auto) Seg Neutrophils % Seg Neuts % (Manual) Lymphocytes % (Manual) Seg Neutrophils # Seg Neutrophils # Man Lymphocytes # (Manual) Monocytes # (Manual) D-Dimer ABG pH 7.315 L POC ABG pCO2 57.1 H POC ABG pO2 47.8 L ABG pO2 65.8 L ABG HCO3 31.4 H ABG O2 Saturation 91.7 L ABG Hemoglobin 19.3 H ABG Oxyhemoglobin ABG Potassium 4.9 H ABG Glucose 182 H VBG pH Oxyhemoglobin 89.7 L Sodium Potassium Chloride Carbon Dioxide BUN Glucose POC Glucose 142 H Hemoglobin A1c Ferritin AST Lactate Dehydrogenase C-Reactive Protein Albumin Arterial Blood Glucose 182 H Coronavirus (PCR) 08/13/20 08/13/20 08/13/20 05:35 05:35 12:11 WBC 12.0 H Lymph % (Auto) 8.1 L [place] % (Auto) Lymph # (Auto) 1.0 L [place] # (Auto) Seg Neutrophils % 88.0 H Seg Neuts % (Manual) Lymphocytes % (Manual) Seg Neutrophils # 10.5 H Seg Neutrophils # Man Lymphocytes # (Manual) Monocytes # (Manual) D-Dimer ABG pH POC ABG pCO2 POC ABG pO2 ABG pO2 ABG HCO3 ABG O2 Saturation ABG Hemoglobin ABG Oxyhemoglobin ABG Potassium ABG Glucose VBG pH Oxyhemoglobin Sodium Potassium 5.1 H Chloride Carbon Dioxide 31 H BUN 25 H Glucose 174 H POC Glucose 154 H Hemoglobin A1c Ferritin AST 41 H Lactate Dehydrogenase 996 H C-Reactive Protein Albumin 3.8 L Arterial Blood Glucose Coronavirus (PCR) 08/13/20 08/13/20 08/14/20 16:18 23:24 05:21 WBC 14.2 H Lymph % (Auto) 8.2 L [place] % (Auto) Lymph # (Auto) [place] # (Auto) 0.9 H Seg Neutrophils % 85.4 H Seg Neuts % (Manual) Lymphocytes % (Manual) Seg Neutrophils # 12.2 H Seg Neutrophils # Man Lymphocytes # (Manual) Monocytes # (Manual) D-Dimer ABG pH POC ABG pCO2 POC ABG pO2 ABG pO2 ABG HCO3 ABG O2 Saturation ABG Hemoglobin ABG Oxyhemoglobin ABG Potassium ABG Glucose VBG pH Oxyhemoglobin Sodium Potassium Chloride Carbon Dioxide BUN Glucose POC Glucose 188 H 127 H Hemoglobin A1c Ferritin AST Lactate Dehydrogenase C-Reactive Protein Albumin Arterial Blood Glucose Coronavirus (PCR) 08/14/20 08/14/20 08/14/20 05:21 05:21 05:21 WBC Lymph % (Auto) [place] % (Auto) Lymph # (Auto) [place] # (Auto) Seg Neutrophils % Seg Neuts % (Manual) Lymphocytes % (Manual) Seg Neutrophils # Seg Neutrophils # Man Lymphocytes # (Manual) Monocytes # (Manual) D-Dimer > 34527 H ABG pH POC ABG pCO2 POC ABG pO2 ABG pO2 ABG HCO3 ABG O2 Saturation ABG Hemoglobin ABG Oxyhemoglobin ABG Potassium ABG Glucose VBG pH Oxyhemoglobin Sodium Potassium Chloride Carbon Dioxide 32 H 33 H BUN 26 H 26 H Glucose 152 H 156 H POC Glucose Hemoglobin A1c Ferritin AST 53 H 54 H Lactate Dehydrogenase 1249 H C-Reactive Protein 9.90 H Albumin 3.7 L 3.7 L Arterial Blood Glucose Coronavirus (PCR) 08/14/20 08/14/20 08/14/20 05:21 05:58 08:23 WBC Lymph % (Auto) [place] % (Auto) Lymph # (Auto) [place] # (Auto) Seg Neutrophils % Seg Neuts % (Manual) Lymphocytes % (Manual) Seg Neutrophils # Seg Neutrophils # Man Lymphocytes # (Manual) Monocytes # (Manual) D-Dimer ABG pH POC ABG pCO2 POC ABG pO2 50.0 L ABG pO2 ABG HCO3 ABG O2 Saturation ABG Hemoglobin ABG Oxyhemoglobin 84.0 L ABG Potassium ABG Glucose 141 H VBG pH Oxyhemoglobin Sodium Potassium Chloride Carbon Dioxide BUN Glucose POC Glucose 139 H Hemoglobin A1c Ferritin 1198.0 H AST Lactate Dehydrogenase C-Reactive Protein Albumin Arterial Blood Glucose 141 H Coronavirus (PCR) 08/15/20 08/15/20 08/16/20 05:16 05:16 05:26 WBC 13.7 H 17.7 H Lymph % (Auto) 8.2 L [place] % (Auto) Lymph # (Auto) [place] # (Auto) Seg Neutrophils % 86.2 H Seg Neuts % (Manual) 91.0 H 88.0 H Lymphocytes % (Manual) 7.0 L 9.0 L Seg Neutrophils # 15.3 H Seg Neutrophils # Man 12.5 H 15.6 H Lymphocytes # (Manual) 1.0 L Monocytes # (Manual) D-Dimer ABG pH POC ABG pCO2 POC ABG pO2 ABG pO2 ABG HCO3 ABG O2 Saturation ABG Hemoglobin ABG Oxyhemoglobin ABG Potassium ABG Glucose VBG pH Oxyhemoglobin Sodium Potassium Chloride Carbon Dioxide 32 H BUN 29 H Glucose 150 H POC Glucose Hemoglobin A1c Ferritin AST Lactate Dehydrogenase 1150 H C-Reactive Protein Albumin 3.5 L Arterial Blood Glucose Coronavirus (PCR) 08/16/20 08/16/20 08/16/20 05:26 05:26 05:26 WBC Lymph % (Auto) [place] % (Auto) Lymph # (Auto) [place] # (Auto) Seg Neutrophils % Seg Neuts % (Manual) Lymphocytes % (Manual) Seg Neutrophils # Seg Neutrophils # Man Lymphocytes # (Manual) Monocytes # (Manual) D-Dimer > 40238 H ABG pH POC ABG pCO2 POC ABG pO2 ABG pO2 ABG HCO3 ABG O2 Saturation ABG Hemoglobin ABG Oxyhemoglobin ABG Potassium ABG Glucose VBG pH Oxyhemoglobin Sodium Potassium 5.2 H Chloride Carbon Dioxide BUN 25 H Glucose 163 H POC Glucose Hemoglobin A1c Ferritin 1013.0 H AST Lactate Dehydrogenase C-Reactive Protein 4.00 H Albumin 3.6 L Arterial Blood Glucose Coronavirus (PCR) 08/17/20 08/17/20 08/17/20 05:06 05:06 07:51 WBC 20.7 H Lymph % (Auto) [place] % (Auto) Lymph # (Auto) [place] # (Auto) Seg Neutrophils % Seg Neuts % (Manual) 86.0 H Lymphocytes % (Manual) 7.0 L Seg Neutrophils # Seg Neutrophils # Man 17.8 H Lymphocytes # (Manual) Monocytes # (Manual) 1.2 H D-Dimer ABG pH POC ABG pCO2 POC ABG pO2 ABG pO2 ABG HCO3 ABG O2 Saturation ABG Hemoglobin ABG Oxyhemoglobin ABG Potassium ABG Glucose VBG pH Oxyhemoglobin Sodium Potassium Chloride 96.5 L Carbon Dioxide 31 H BUN 29 H Glucose 121 H POC Glucose 110 H Hemoglobin A1c Ferritin AST 46 H Lactate Dehydrogenase C-Reactive Protein Albumin 3.7 L Arterial Blood Glucose Coronavirus (PCR) 08/17/20 08/17/20 08/18/20 11:42 21:45 05:13 WBC Lymph % (Auto) [place] % (Auto) Lymph # (Auto) [place] # (Auto) Seg Neutrophils % Seg Neuts % (Manual) Lymphocytes % (Manual) Seg Neutrophils # Seg Neutrophils # Man Lymphocytes # (Manual) Monocytes # (Manual) D-Dimer > 1000 H ABG pH POC ABG pCO2 POC ABG pO2 ABG pO2 ABG HCO3 ABG O2 Saturation ABG Hemoglobin ABG Oxyhemoglobin ABG Potassium ABG Glucose VBG pH Oxyhemoglobin Sodium Potassium Chloride Carbon Dioxide BUN Glucose POC Glucose 122 H 143 H Hemoglobin A1c Ferritin AST Lactate Dehydrogenase C-Reactive Protein Albumin Arterial Blood Glucose Coronavirus (PCR) 08/18/20 08/18/20 05:13 05:13 WBC Lymph % (Auto) [place] % (Auto) Lymph # (Auto) [place] # (Auto) Seg Neutrophils % Seg Neuts % (Manual) Lymphocytes % (Manual) Seg Neutrophils # Seg Neutrophils # Man Lymphocytes # (Manual) Monocytes # (Manual) D-Dimer ABG pH POC ABG pCO2 POC ABG pO2 ABG pO2 ABG HCO3 ABG O2 Saturation ABG Hemoglobin ABG Oxyhemoglobin ABG Potassium ABG Glucose VBG pH Oxyhemoglobin Sodium 133 L Potassium Chloride 94.7 L Carbon Dioxide BUN 33 H Glucose 110 H POC Glucose Hemoglobin A1c Ferritin 979.8 H AST 50 H Lactate Dehydrogenase C-Reactive Protein Albumin 3.7 L Arterial Blood Glucose Coronavirus (PCR)
[2020-08-18] MEDS ORDERED: FUROSEMIDE 40 MG/4 ML INJ IV SCH (17:00)
[2020-08-19] MEDS: ACETAMINOPHEN 325 MG TAB PO PRN ×2 (00:27→21:27)
--- NOTE | 2020-08-19 09:27 | Progress Note ---
Assessment and Plan Assessment and plan: --Acute hypoxic respiratory failure secondary to COVID-19 PNA Continue oxygen supplementation with BIPAP --COVID-19 Pneumonia Continue antibiotics Continue steroids Remdesivir s/p tocilizumab Oxygen supplementation with BiPAP Trend inflammatory markers Prone positioning strongly advised ID and pulmonology following --Right lower extremity DVT D-dimer more than 10,000 US shows RLE DVT. Echocardiogram shows no right heart strain. Continue Lovenox 150 mg twice daily --Sinus bradycardia Likely from remdesivir Monitor for now TSH wnl --Morbid obesity Diet and exercise advised --DVT prophylaxis-Lovenox Brief history 30-year-old male with morbid obesity weighing about 310 pounds comes in for intermittent frontal headache for 3 days. In the emergency room patient was very hypoxic but denies shortness of breath or cough. No muscle aches. His oxygen levels are mid 80s. Denies smoking. Work-up in the emergency room showed bilateral patchy opacities in the lungs and hypoxia-hence he was admitted for bilateral pneumonia and possible Covid pneumonia. No significant past medical history 08/11. Patient seen examined at bedside this morning. Has no complaints. Febrile this a.m.-103 Fahrenheit. On Tylenol as needed. COVID-19 test ordered. Remains on steroids. ID consult if COVID-19 is positive. 08/12. His COVID-19 test is positive. He was started on remdesivir last night. Oxygen requirement increased overnight. Inflammatory markers increasing. Repeat chest xray shows worsening infiltrates. Ordered BNP. Lasix 40mg IV ordered. Increased dexamethasone to 6mg BID. Pulmonology consulted. Will place on continuous pulse oximetry. Incentive spirometer ordered. Advised prone positioning. 08/13. Not feeling better. Seen on BIPAP. Remains on steroids, remdesivir and antibiotics. Vitals stable. 08/14. Still maintaining sats even on BiPAP. Lasix 40 mg IV ordered. D-dimer this a.m. is more than 10,000. Lovenox increased to 150 mg twice daily. Ultra sound lower extremities Doppler showed a right DVT. Echocardiogram ordered to rule out right heart strain. Pending results, patient may need vascular surgery evaluation for possible thrombectomy. Continue on BiPAP and continue to monitor respiratory status closely. 08/15. Sats better this AM. Received toculizumab yesterday. Advised him to prone as much as possible. Echo shows normal EF with no right heart strain. I/Os reviewed. He is diuresing well. Renal function is stable. Will give additional lasix today. Pulmonology following 08/16. Remains on remdesivir. Still on BIPAP. Will give lasix 20mg IV. HR is low - likley effect of remdesivir. Will continue to monitor closely 08/17. Sats in the 90's this AM. Still on BIPAP. 08/18; patient remains hypoxic requiring BiPAP and 100% nonrebreather intermittently ID pulmonary following follow the recommendations Closely monitor the patient and adjust the management as needed 08/19; Continue supportive care, wean oxygen as tolerated. Encouraged PRONE positioning if able to tolerate. The high probability of a clinically significant, sudden or life threatening deterioration of the [pulmonary] system(s) required my full and direct attention , intervention and personal management. The aggregate critical care time was [35] minutes. This time is in addition to time spent performing reported procedures but includes the following: [x] Data Review and interpretation [x] Patient assessment and monitoring of vital signs [x] Documentation [x] Medication orders and management History Interval history: Patient seen and examined, remains in moderate distress and on BIPAP I have seen and examined the patient in IMCU this morning Patient's chart and medications reviewed . I followed strict isolation precautions PPE protocols per COVID-19 guidelines throughout my interaction with this patient and in evaluation Patient is Covid positive , severely hypoxemic requiring BiPAP and intermittent 100% nonrebreather Hospitalist Physical - Physical exam Narrative exam: General appearance: Present: mild to moderate acute distress- on BIPAP, well- nourished, obese (Morbidly obese) - EENT Eyes: Present: PERRL, EOM intact - Neck Neck: Present: supple, normal ROM - Respiratory Respiratory effort: normal Respiratory: bilateral: diminished, negative: rales, rhonchi, wheezing - Cardiovascular Rhythm: regular Heart Sounds: Present: S1 & S2 - Extremities Extremities: no ischemia, No edema - Abdominal General gastrointestinal: soft, non-tender, non-distended, normal bowel sounds - Integumentary Integumentary: Present: clear, warm - Psychiatric Psychiatric: appropriate mood/affect, cooperative - Neurologic Neurologic: CNII-XII intact, moves all extremities (Disease) - Constitutional Vitals: Temp Pulse Resp BP Pulse Ox 98.3 F 71 22 135/83 95 08/19/20 08:00 08/19/20 08:00 08/19/20 08:00 08/19/20 08:00 08/19/20 08:00 General appearance: Present: no acute distress, well-nourished, obese (Morbidly obese) Results - Labs CBC & Chem 7: 08/17/20 05:06 08/18/20 05:13 Labs: Laboratory Last Values WBC 20.7 K/mm3 (4.5-11.0) H 08/17/20 05:06 RBC 4.83 M/mm3 (3.65-5.03) 08/17/20 05:06 Hgb 13.9 gm/dl (11.8-15.2) 08/17/20 05:06 Hct 42.4 % (35.5-45.6) 08/17/20 05:06 MCV 88 fl (84-94) 08/17/20 05:06 MCH 29 pg (28-32) 08/17/20 05:06 MCHC 33 % (32-34) 08/17/20 05:06 RDW 13.6 % (13.2-15.2) 08/17/20 05:06 Plt Count 333 K/mm3 (140-440) 08/17/20 05:06 Lymph % (Auto) 8.2 % (13.4-35.0) L 08/16/20 05:26 [place] % (Auto) 4.7 % (0.0-7.3) 08/16/20 05:26 Eos % (Auto) 0.2 % (0.0-4.3) 08/16/20 05:26 Baso % (Auto) 0.7 % (0.0-1.8) 08/16/20 05:26 Lymph # (Auto) 1.5 K/mm3 (1.2-5.4) 08/16/20 05:26 [place] # (Auto) 0.8 K/mm3 (0.0-0.8) 08/16/20 05:26 Eos # (Auto) 0.0 K/mm3 (0.0-0.4) 08/16/20 05:26 Baso # (Auto) 0.1 K/mm3 (0.0-0.1) 08/16/20 05:26 Add Manual Diff Complete 08/17/20 05:06 Total Counted 100 08/17/20 05:06 Seg Neutrophils % 86.2 % (40.0-70.0) H 08/16/20 05:26 Seg Neuts % (Manual) 86.0 % (40.0-70.0) H 08/17/20 05:06 Lymphocytes % (Manual) 7.0 % (13.4-35.0) L 08/17/20 05:06 Monocytes % (Manual) 6.0 % (0.0-7.3) 08/17/20 05:06 Eosinophils % (Manual) 1.0 % (0.0-4.3) 08/17/20 05:06 Metamyelocytes % 2.0 % 08/15/20 05:16 Nucleated RBC % Not Reportable 08/17/20 05:06 Seg Neutrophils # 15.3 K/mm3 (1.8-7.7) H 08/16/20 05:26 Seg Neutrophils # Man 17.8 K/mm3 (1.8-7.7) H 08/17/20 05:06 Band Neutrophils # 0.0 K/mm3 08/17/20 05:06 Lymphocytes # (Manual) 1.4 K/mm3 (1.2-5.4) 08/17/20 05:06 Abs React Lymphs (Man) 0.0 K/mm3 08/17/20 05:06 Monocytes # (Manual) 1.2 K/mm3 (0.0-0.8) H 08/17/20 05:06 Eosinophils # (Manual) 0.2 K/mm3 (0.0-0.4) 08/17/20 05:06 Basophils # (Manual) 0.0 K/mm3 (0.0-0.1) 08/17/20 05:06 Metamyelocytes # 0.0 K/mm3 08/17/20 05:06 Myelocytes # 0.0 K/mm3 08/17/20 05:06 Promyelocytes # 0.0 K/mm3 08/17/20 05:06 Blast Cells # 0.0 K/mm3 08/17/20 05:06 WBC Morphology Not Reportable 08/17/20 05:06 Hypersegmented Neuts Not Reportable 08/17/20 05:06 Hyposegmented Neuts Not Reportable 08/17/20 05:06 Hypogranular Neuts Not Reportable 08/17/20 05:06 Smudge Cells Not Reportable 08/17/20 05:06 Toxic Granulation Not Reportable 08/17/20 05:06 Toxic Vacuolation Not Reportable 08/17/20 05:06 Dohle Bodies Not Reportable 08/17/20 05:06 Pelger-Huet Anomaly Not Reportable 08/17/20 05:06 Juan Luis Rods Not Reportable 08/17/20 05:06 Platelet Estimate Consistent w auto 08/17/20 05:06 Clumped Platelets Not Reportable 08/17/20 05:06 Plt Clumps, EDTA Not Reportable 08/17/20 05:06 Large Platelets Not Reportable 08/17/20 05:06 Giant Platelets Not Reportable 08/17/20 05:06 Platelet Satelliting Not Reportable 08/17/20 05:06 Plt Morphology Comment Not Reportable 08/17/20 05:06 RBC Morphology Not Reportable 08/17/20 05:06 Dimorphic RBCs Not Reportable 08/17/20 05:06 Polychromasia Not Reportable 08/17/20 05:06 Hypochromasia Not Reportable 08/17/20 05:06 Poikilocytosis Not Reportable 08/17/20 05:06 Anisocytosis Few 08/17/20 05:06 Microcytosis Not Reportable 08/17/20 05:06 Macrocytosis Not Reportable 08/17/20 05:06 Spherocytes Not Reportable 08/17/20 05:06 Pappenheimer Bodies Not Reportable 08/17/20 05:06 Sickle Cells Not Reportable 08/17/20 05:06 Target Cells Not Reportable 08/17/20 05:06 Tear Drop Cells Not Reportable 08/17/20 05:06 Ovalocytes Not Reportable 08/17/20 05:06 Helmet Cells Not Reportable 08/17/20 05:06 [place]-Mulhall Bodies Not Reportable 08/17/20 05:06 Petal Rings Not Reportable 08/17/20 05:06 [place] Cells Not Reportable 08/17/20 05:06 Bite Cells Not Reportable 08/17/20 05:06 Crenated Cell Not Reportable 08/17/20 05:06 Elliptocytes Not Reportable 08/17/20 05:06 Acanthocytes (Spur) Not Reportable 08/17/20 05:06 Rouleaux Not Reportable 08/17/20 05:06 Hemoglobin C Crystals Not Reportable 08/17/20 05:06 Schistocytes Not Reportable 08/17/20 05:06 Malaria parasites Not Reportable 08/17/20 05:06 Asif Bodies Not Reportable 08/17/20 05:06 Hem Pathologist Commnt No 08/17/20 05:06 PT 12.6 Sec. (12.2-14.9) 08/10/20 08:29 INR 0.96 (0.87-1.13) 08/10/20 08:29 D-Dimer > 1000 ng/mlDDU (0-234) H 08/18/20 05:13 ABG pH 7.443 (7.320-7.450) 08/14/20 08:23 POC ABG pCO2 46.9 mmHg (32.0-48.0) 08/14/20 08:23 ABG pCO2 62.9 mm Hg 08/12/20 14:55 POC ABG pO2 50.0 mmHg (83-108) L 08/14/20 08:23 ABG pO2 65.8 mm Hg (80.0-90.0) L 08/12/20 14:55 POC ABG HCO3 31.4 08/14/20 08:23 ABG HCO3 31.4 mmol/L (20.0-26.0) H 08/12/20 14:55 ABG O2 Saturation 85.0 (0-100) 08/14/20 08:23 ABG O2 Content 24.3 (0.0-44) 08/12/20 14:55 POC ABG Base Excess 6.3 08/14/20 08:23 ABG Base Excess 2.6 mmol/L (-2.0-3.0) 08/12/20 14:55 ABG Hemoglobin 13.4 (12.0-17.5) 08/14/20 08:23 ABG Oxyhemoglobin 84.0 (94-98) L 08/14/20 08:23 ABG Carboxyhemoglobin 1.7 % (0.0-5.0) 08/12/20 14:55 ABG Methemoglobin 0.3 (0.0-1.5) 08/14/20 08:23 ABG Sodium 139.2 mmol/L (136.0-145.0) 08/14/20 08:23 ABG Potassium 4.5 mmol/L (3.40-4.50) 08/14/20 08:23 ABG Chloride 99.0 mmol/L (98-107) 08/14/20 08:23 ABG Glucose 141 mg/dL (65-95) H 08/14/20 08:23 VBG pH 7.303 (7.320-7.420) L 08/10/20 08:29 Oxyhemoglobin 89.7 % (95.0-99.0) L 08/12/20 14:55 Carboxyhemoglobin 0.9 (0.5-1.5) 08/14/20 08:23 FiO2 60 % 08/12/20 14:55 FiO2 % 100 08/14/20 08:23 Sodium 133 mmol/L (137-145) L 08/18/20 05:13 Potassium 4.9 mmol/L (3.6-5.0) 08/18/20 05:13 Chloride 94.7 mmol/L (98-107) L 08/18/20 05:13 Carbon Dioxide 27 mmol/L (22-30) 08/18/20 05:13 Anion Gap 16 mmol/L 08/18/20 05:13 BUN 33 mg/dL (9-20) H 08/18/20 05:13 Creatinine 1.0 mg/dL (0.8-1.3) 08/18/20 05:13 Estimated GFR > 60 ml/min 08/18/20 05:13 BUN/Creatinine Ratio 33 % 08/18/20 05:13 Glucose 110 mg/dL (75-100) H 08/18/20 05:13 POC Glucose 143 mg/dL (70-105) H 08/17/20 21:45 Hemoglobin A1c 6.1 % (4-6) H 08/11/20 05:39 Lactic Acid 0.80 mmol/L (0.7-2.0) 08/10/20 11:18 Calcium 9.0 mg/dL (8.4-10.2) 08/18/20 05:13 Ferritin 979.8 ng/mL (30.0-300.0) H 08/18/20 05:13 Total Bilirubin 0.50 mg/dL (0.1-1.2) 08/18/20 05:13 AST 50 units/L (5-40) H 08/18/20 05:13 ALT 50 units/L (7-56) 08/18/20 05:13 Alkaline Phosphatase 103 units/L (35-129) 08/18/20 05:13 Lactate Dehydrogenase 1150 units/L (91-180) H 08/15/20 05:16 C-Reactive Protein 1.00 mg/dL (0.00-1.30) 08/18/20 05:13 NT-Pro-B Natriuret Pep 36.40 pg/mL (0-450) 08/12/20 06:29 Total Protein 6.9 g/dL (6.3-8.2) 08/18/20 05:13 Albumin 3.7 g/dL (3.9-5) L 08/18/20 05:13 Albumin/Globulin Ratio 1.1 % 08/18/20 05:13 Procalcitonin 0.22 ng/mL (<0.15) 08/16/20 05:26 TSH 1.830 mlU/mL (0.270-4.200) 08/17/20 05:06 Free T4 1.01 ng/dL (0.76-1.46) 08/17/20 05:06 Arterial Blood Glucose 141 mg/dL (65-95) H 08/14/20 08:23 Arterial Blood Ionized Calcium 4.8 mg/dL (4.6-5.3) 08/14/20 08:23 Urine Color Yellow (Yellow) 08/10/20 Unknown Urine Turbidity Cloudy (Clear) 08/10/20 Unknown Urine pH 5.0 (5.0-7.0) 08/10/20 Unknown Ur Specific [place] 1.025 (1.003-1.030) 08/10/20 Unknown Urine Protein 30 mg/dl mg/dL (Negative) 08/10/20 Unknown Urine Glucose (UA) 150 mg/dL (Negative) 08/10/20 Unknown Urine Ketones Negative mg/dL (Negative) 08/10/20 Unknown Urine Blood Negative (Negative) 08/10/20 Unknown Urine Nitrite Negative (Negative) 08/10/20 Unknown Urine Bilirubin Negative (Negative) 08/10/20 Unknown Urine Urobilinogen < 2.0 mg/dL (<2.0) 08/10/20 Unknown Ur Leukocyte Esterase Negative (Negative) 08/10/20 Unknown Urine WBC (Auto) 5.0 /HPF (0.0-6.0) 08/10/20 Unknown Urine RBC (Auto) 2.0 /HPF (0.0-6.0) 08/10/20 Unknown U Epithel Cells (Auto) 1.0 /HPF (0-13.0) 08/10/20 Unknown Urine Bacteria (Auto) 1+ /HPF (Negative) 08/10/20 Unknown Urine Mucus 3+ /HPF 08/10/20 Unknown Coronavirus (PCR) Positive (Negative) A 08/11/20 Unknown Gaytan/IV: Voiding Method Urinal Active Medications - Current Medications Current Medications: Generic Name Dose Route Start Last Admin Trade Name Freq PRN Reason Stop Dose Admin Acetaminophen 650 mg 08/10/20 23:48 08/19/20 00:27 Acetaminophen 325 Mg Tab PO 650 mg Q4H PRN Administration Pain MILD(1-3)/Fever >100.5/MARTINEZ Artificial Tears 2 drops 08/16/20 13:44 Hypromellose 0.5% Ophth Soln 15 Ml OU Q4H PRN Dry Eye(s) Ascorbic Acid 500 mg 08/12/20 10:00 08/18/20 22:11 Ascorbic Acid 500 Mg Tab PO 500 mg BID MELANIE Administration Dexamethasone 6 mg 08/12/20 10:00 08/18/20 22:08 Dexamethasone 4 Mg/Ml Vial IV 08/21/20 22:01 6 mg Q12HR MELANIE Administration Enoxaparin Sodium 150 mg 08/14/20 10:00 08/18/20 22:09 Enoxaparin 150 Mg/1 Ml Inj SUB-Q 150 mg Q12HR MELANIE Administration Famotidine 20 mg 08/11/20 10:00 08/18/20 22:09 Famotidine 20 Mg/2 Ml Inj IV 20 mg BID MELANIE Administration Metoclopramide HCl 10 mg 08/10/20 23:48 Metoclopramide 10 Mg/2 Ml Inj IV Q6H PRN Nausea And Vomiting Morphine Sulfate 2 mg 08/10/20 23:48 Morphine 2 Mg/1 Ml Inj IV Q4H PRN Pain, Moderate (4-6) Ondansetron HCl 4 mg 08/10/20 23:48 Ondansetron 4 Mg/2 Ml Inj IV Q8H PRN Nausea And Vomiting Oxycodone/Acetaminophen 1 tab 08/10/20 23:48 Oxycodone /Acetaminophen 5-325mg Tab PO Q6H PRN Pain, Moderate (4-6) Sodium Chloride 10 ml 08/11/20 10:00 08/18/20 22:11 Sodium Chloride 0.9% 10 Ml Flush Syringe IV 10 ml BID MELANIE Administration Sodium Chloride 10 ml 08/10/20 23:48 08/12/20 21:04 Sodium Chloride 0.9% 10 Ml Flush Syringe IV 10 ml PRN PRN Administration LINE FLUSH Zinc Sulfate 220 mg 08/12/20 12:00 08/18/20 09:27 Zinc Sulfate 220 Mg Cap PO 220 mg QDAY MELANIE Administration Nutrition/Malnutrition Assess - Dietary Evaluation Nutrition/Malnutrition Findings: Nutrition Notes Start: 08/17/20 10:49 Freq: Status: Active Protocol: Document 08/17/20 10:49 GHADA (Rec: 08/17/20 11:00 [facility] [id number]) Nutrition Notes Need for Assessment generated from: LOS Initial or Follow up Assessment Other Pertinent Diagnosis COVID-19 (+), pneu, RLE DVT, sinus bradycardia Current Diet Regular Labs/Tests BUN 29 CO2 - 31 Pertinent Medications Vit C, Decadron, Zinc sulfate Height 5 ft 11 in Weight 147.5 kg [place] Body Weight (kg) 78.18 BMI 45.3 Weight Status Morbidly Obese Subjective/Other Information Pt screened for LOS. He consumed 25% of 3 meals on (no other PO intakes documented). Unable to reach pt via phone at 10:35. Pulmonary wants to try to prevent intubation, but will do so if necessary. Pt being proned as tolerated and is on BiPap support. Will order ONS , as drinking is likely easier than chewing at this time. Percent of energy/protein needs met: 28% energy 25% pro Burn Absent Trauma Absent Current % PO Poor (25-49%) Minimum of two criteria No #1 Nutrition Diagnosis Inadequate oral intake Etiology COVID-19 (+), continuous BiPap support As Evidenced by Signs and Symptoms pt consuming <50% of meals Is patient on ventilator? No Is Patient Ambulatory and/or Out of Bed No REE-([place]-confined to bed) 2955.564 Kcal/Kg value to use for calculation 14 Approximate Energy Requirements Using 5 kcal/Kg Calculation Used for Recommendations Kcal/kg Additional Notes Pro needs 0.8-1g/kg adjBW: 90- 113g/day Fluid needs 1ml/kcal Nutrition Intervention Change Diet Order: Continue current diet as tolerated Add Supplement/Snack (indicate name/kcal Ensure High Protein BID /protein ) Provides kCal: 320 Provides Protein (gm) 32 Goal #1 PO tolerance Goal #2 PO intake of meals plus ONS to meet at least 75% energy and pro needs Anticipated Discharge Needs: Unable to identify at this time Follow-Up By: 08/21/20 Additional Comments F/U: intakes (meals, ONS), intubation vs BiPap use
[2020-08-19] MEDS: FAMOTIDINE 20 MG/2 ML INJ IV SCH ×2 (11:24→21:27)
[2020-08-19] MEDS: dexAMETHasone 4 MG/ML VIAL IV SCH ×2 (11:24→21:27)
[2020-08-19] MEDS: ZINC SULFATE 220 MG CAP PO SCH (11:24)
[2020-08-19] MEDS: ASCORBIC ACID 500 MG TAB PO SCH ×2 (11:25→21:27)
[2020-08-19] MEDS: ENOXAPARIN 150 MG/1 ML INJ SUB-Q SCH ×2 (11:25→21:26)
--- NOTE | 2020-08-19 12:35 | Progress Note ---
Subjective Date of service: 08/19/20 Interval history: 30 y/o morbidly obese male with acute respiratory failure secondary to COVID 19 pneumonia. now found to have DVT in lower ext. 08/19/20: Pt awake and alert on 100% FiO2 BIPAP with sats at 100%. Would like to wean FiO2, RT notified. 08/18/20: Bipap pRN and QHS. More lasix today. Prone as tolerated during the day and sleep prone at night. CONtinue to try to hold off on intubation. Guarded prognosis. 08/17/20: Continue anticoagulation. Still trying to prevent intubation however will do electively if and when needed to prevent and emergent situation as patie nt will likely be difficult given neck and body habitus. Continue prone as tolerated. Steroids and remdesivir. 08/16/20: Anticoagulation. Prone as tolerated. Wean bipap as tolerated. Prognosis remains guarded. Trying to prevent intubation given poor outcomes associated with mechanically ventilated obese COVID patients. 08/15/20: Continue therapeutic anticoagulation. No current indication for vascular consult given no evidence of right heart strain on echo. CT would only be beneficial if we thought it would show large enough clot to warrant EKOS and with no evidence of strain, I doubt that will be the case. Continue proning as much as tolerated. Spoke with mother over the phone to update her. Patient also got actemra on yesterday as well. Prognosis remains guarded 08/14/20: Will accept sats in the mid 80's as long as mental state and work of breathing do not change. AGree with lasix therapy. Found to have large DVT on right. Spoke with [facility] and asked them to order stat echo to look for right heart strain, and if present may need to consider echos. Await echo before vascular consult. Prone if possible. Long discussion with mother on phone. Gave her a list of the meds he is on and what our current plan is. Also very candid with her and son at bedside that the mortality rate with COVID is very very high. 08/13/20: Lasix again today. Continue to alternate between HFNC with NRB and bipap. Prognosis is very very guarded. Very very guarded to poor prognosis given CXR appearance, and body habitus, along with rapid decline in self sustaning oxygen levels. Agree with lasix and increase in steroids. Must prone. Very high likelihood for mechanical ventila tion which would carry a high mortality for patient. Will continue to follow. No additional IVF's unless indicated. Objective Vital Signs - 12hr 08/19/20 08/19/20 08/19/20 01:00 02:00 02:08 Temperature Pulse Rate 61 62 59 L Pulse Rate [ From Monitor] Respiratory 16 14 21 Rate Blood Pressure 138/81 135/78 135/78 O2 Sat by Pulse 91 80 L 91 Oximetry 08/19/20 08/19/20 08/19/20 03:00 04:00 05:00 Temperature 99.7 F H Pulse Rate 63 60 62 Pulse Rate [ 57 L From Monitor] Respiratory 18 13 19 Rate Blood Pressure 137/86 134/83 123/66 O2 Sat by Pulse 88 86 89 Oximetry 08/19/20 08/19/20 08/19/20 06:00 07:00 08:00 Temperature 98.3 F Pulse Rate 57 L 61 71 Pulse Rate [ From Monitor] Respiratory 10 L 32 H 22 Rate Blood Pressure 140/84 129/84 135/83 O2 Sat by Pulse 92 93 95 Oximetry 08/19/20 11:00 Temperature 99.0 F Pulse Rate Pulse Rate [ From Monitor] Respiratory Rate Blood Pressure O2 Sat by Pulse Oximetry CBC and BMP: 08/17/20 05:06 08/18/20 05:13 ABG, PT/INR, D-dimer: ABG ABG pH 7.443 (7.320-7.450) 08/14/20 08:23 POC ABG pCO2 46.9 mmHg (32.0-48.0) 08/14/20 08:23 ABG pCO2 62.9 mm Hg 08/12/20 14:55 POC ABG pO2 50.0 mmHg (83-108) L 08/14/20 08:23 ABG pO2 65.8 mm Hg (80.0-90.0) L 08/12/20 14:55 POC ABG HCO3 31.4 08/14/20 08:23 ABG O2 Saturation 85.0 (0-100) 08/14/20 08:23 PT/INR, D-dimer PT 12.6 Sec. (12.2-14.9) 08/10/20 08:29 INR 0.96 (0.87-1.13) 08/10/20 08:29 D-Dimer > 1000 ng/mlDDU (0-234) H 08/18/20 05:13 Abnormal lab findings: Abnormal Labs 08/10/20 08/10/20 08/10/20 08:29 08:29 08:29 WBC Lymph % (Auto) Will % (Auto) 8.4 H Lymph # (Auto) Will # (Auto) Seg Neutrophils % Seg Neuts % (Manual) Lymphocytes % (Manual) Seg Neutrophils # Seg Neutrophils # Man Lymphocytes # (Manual) Monocytes # (Manual) D-Dimer ABG pH POC ABG pCO2 POC ABG pO2 ABG pO2 ABG HCO3 ABG O2 Saturation ABG Hemoglobin ABG Oxyhemoglobin ABG Potassium ABG Glucose VBG pH 7.303 L Oxyhemoglobin Sodium Potassium Chloride Carbon Dioxide BUN Glucose 132 H POC Glucose Hemoglobin A1c Ferritin AST Lactate Dehydrogenase C-Reactive Protein Albumin Arterial Blood Glucose Coronavirus (PCR) 08/11/20 08/11/20 08/11/20 05:39 05:39 05:39 WBC Lymph % (Auto) 12.5 L Will % (Auto) Lymph # (Auto) Will # (Auto) Seg Neutrophils % 84.2 H Seg Neuts % (Manual) Lymphocytes % (Manual) Seg Neutrophils # 9.1 H Seg Neutrophils # Man Lymphocytes # (Manual) Monocytes # (Manual) D-Dimer ABG pH POC ABG pCO2 POC ABG pO2 ABG pO2 ABG HCO3 ABG O2 Saturation ABG Hemoglobin ABG Oxyhemoglobin ABG Potassium ABG Glucose VBG pH Oxyhemoglobin Sodium Potassium Chloride Carbon Dioxide BUN Glucose 125 H POC Glucose Hemoglobin A1c 6.1 H Ferritin AST Lactate Dehydrogenase C-Reactive Protein Albumin Arterial Blood Glucose Coronavirus (PCR) 08/11/20 08/11/20 08/11/20 18:58 18:58 18:58 WBC Lymph % (Auto) Will % (Auto) Lymph # (Auto) Will # (Auto) Seg Neutrophils % Seg Neuts % (Manual) Lymphocytes % (Manual) Seg Neutrophils # Seg Neutrophils # Man Lymphocytes # (Manual) Monocytes # (Manual) D-Dimer 464.84 H ABG pH POC ABG pCO2 POC ABG pO2 ABG pO2 ABG HCO3 ABG O2 Saturation ABG Hemoglobin ABG Oxyhemoglobin ABG Potassium ABG Glucose VBG pH Oxyhemoglobin Sodium Potassium Chloride Carbon Dioxide BUN Glucose POC Glucose Hemoglobin A1c Ferritin 528.7 H AST Lactate Dehydrogenase 637 H C-Reactive Protein 11.30 H Albumin Arterial Blood Glucose Coronavirus (PCR) 08/11/20 08/11/20 08/12/20 19:08 Unknown 06:29 WBC 11.2 H Lymph % (Auto) 8.6 L Will % (Auto) Lymph # (Auto) 1.0 L Will # (Auto) Seg Neutrophils % 88.3 H Seg Neuts % (Manual) Lymphocytes % (Manual) Seg Neutrophils # 9.8 H Seg Neutrophils # Man Lymphocytes # (Manual) Monocytes # (Manual) D-Dimer ABG pH POC ABG pCO2 POC ABG pO2 ABG pO2 ABG HCO3 ABG O2 Saturation ABG Hemoglobin ABG Oxyhemoglobin ABG Potassium ABG Glucose VBG pH Oxyhemoglobin Sodium Potassium Chloride Carbon Dioxide BUN Glucose 161 H POC Glucose Hemoglobin A1c Ferritin AST Lactate Dehydrogenase C-Reactive Protein Albumin Arterial Blood Glucose Coronavirus (PCR) Positive A 08/12/20 08/12/20 08/12/20 06:29 06:29 06:29 WBC Lymph % (Auto) Will % (Auto) Lymph # (Auto) Will # (Auto) Seg Neutrophils % Seg Neuts % (Manual) Lymphocytes % (Manual) Seg Neutrophils # Seg Neutrophils # Man Lymphocytes # (Manual) Monocytes # (Manual) D-Dimer 830.34 H ABG pH POC ABG pCO2 POC ABG pO2 ABG pO2 ABG HCO3 ABG O2 Saturation ABG Hemoglobin ABG Oxyhemoglobin ABG Potassium ABG Glucose VBG pH Oxyhemoglobin Sodium Potassium Chloride Carbon Dioxide 31 H BUN Glucose 138 H POC Glucose Hemoglobin A1c Ferritin 572.6 H AST 42 H Lactate Dehydrogenase 706 H C-Reactive Protein 17.30 H Albumin 3.7 L Arterial Blood Glucose Coronavirus (PCR) 08/12/20 08/12/20 08/12/20 13:21 14:55 21:59 WBC Lymph % (Auto) Will % (Auto) Lymph # (Auto) Will # (Auto) Seg Neutrophils % Seg Neuts % (Manual) Lymphocytes % (Manual) Seg Neutrophils # Seg Neutrophils # Man Lymphocytes # (Manual) Monocytes # (Manual) D-Dimer ABG pH 7.315 L POC ABG pCO2 57.1 H POC ABG pO2 47.8 L ABG pO2 65.8 L ABG HCO3 31.4 H ABG O2 Saturation 91.7 L ABG Hemoglobin 19.3 H ABG Oxyhemoglobin ABG Potassium 4.9 H ABG Glucose 182 H VBG pH Oxyhemoglobin 89.7 L Sodium Potassium Chloride Carbon Dioxide BUN Glucose POC Glucose 142 H Hemoglobin A1c Ferritin AST Lactate Dehydrogenase C-Reactive Protein Albumin Arterial Blood Glucose 182 H Coronavirus (PCR) 08/13/20 08/13/20 08/13/20 05:35 05:35 12:11 WBC 12.0 H Lymph % (Auto) 8.1 L Will % (Auto) Lymph # (Auto) 1.0 L Will # (Auto) Seg Neutrophils % 88.0 H Seg Neuts % (Manual) Lymphocytes % (Manual) Seg Neutrophils # 10.5 H Seg Neutrophils # Man Lymphocytes # (Manual) Monocytes # (Manual) D-Dimer ABG pH POC ABG pCO2 POC ABG pO2 ABG pO2 ABG HCO3 ABG O2 Saturation ABG Hemoglobin ABG Oxyhemoglobin ABG Potassium ABG Glucose VBG pH Oxyhemoglobin Sodium Potassium 5.1 H Chloride Carbon Dioxide 31 H BUN 25 H Glucose 174 H POC Glucose 154 H Hemoglobin A1c Ferritin AST 41 H Lactate Dehydrogenase 996 H C-Reactive Protein Albumin 3.8 L Arterial Blood Glucose Coronavirus (PCR) 08/13/20 08/13/20 08/14/20 16:18 23:24 05:21 WBC 14.2 H Lymph % (Auto) 8.2 L Will % (Auto) Lymph # (Auto) Will # (Auto) 0.9 H Seg Neutrophils % 85.4 H Seg Neuts % (Manual) Lymphocytes % (Manual) Seg Neutrophils # 12.2 H Seg Neutrophils # Man Lymphocytes # (Manual) Monocytes # (Manual) D-Dimer ABG pH POC ABG pCO2 POC ABG pO2 ABG pO2 ABG HCO3 ABG O2 Saturation ABG Hemoglobin ABG Oxyhemoglobin ABG Potassium ABG Glucose VBG pH Oxyhemoglobin Sodium Potassium Chloride Carbon Dioxide BUN Glucose POC Glucose 188 H 127 H Hemoglobin A1c Ferritin AST Lactate Dehydrogenase C-Reactive Protein Albumin Arterial Blood Glucose Coronavirus (PCR) 08/14/20 08/14/20 08/14/20 05:21 05:21 05:21 WBC Lymph % (Auto) Will % (Auto) Lymph # (Auto) Will # (Auto) Seg Neutrophils % Seg Neuts % (Manual) Lymphocytes % (Manual) Seg Neutrophils # Seg Neutrophils # Man Lymphocytes # (Manual) Monocytes # (Manual) D-Dimer > 22946 H ABG pH POC ABG pCO2 POC ABG pO2 ABG pO2 ABG HCO3 ABG O2 Saturation ABG Hemoglobin ABG Oxyhemoglobin ABG Potassium ABG Glucose VBG pH Oxyhemoglobin Sodium Potassium Chloride Carbon Dioxide 32 H 33 H BUN 26 H 26 H Glucose 152 H 156 H POC Glucose Hemoglobin A1c Ferritin AST 53 H 54 H Lactate Dehydrogenase 1249 H C-Reactive Protein 9.90 H Albumin 3.7 L 3.7 L Arterial Blood Glucose Coronavirus (PCR) 08/14/20 08/14/20 08/14/20 05:21 05:58 08:23 WBC Lymph % (Auto) Will % (Auto) Lymph # (Auto) Will # (Auto) Seg Neutrophils % Seg Neuts % (Manual) Lymphocytes % (Manual) Seg Neutrophils # Seg Neutrophils # Man Lymphocytes # (Manual) Monocytes # (Manual) D-Dimer ABG pH POC ABG pCO2 POC ABG pO2 50.0 L ABG pO2 ABG HCO3 ABG O2 Saturation ABG Hemoglobin ABG Oxyhemoglobin 84.0 L ABG Potassium ABG Glucose 141 H VBG pH Oxyhemoglobin Sodium Potassium Chloride Carbon Dioxide BUN Glucose POC Glucose 139 H Hemoglobin A1c Ferritin 1198.0 H AST Lactate Dehydrogenase C-Reactive Protein Albumin Arterial Blood Glucose 141 H Coronavirus (PCR) 08/15/20 08/15/20 08/16/20 05:16 05:16 05:26 WBC 13.7 H 17.7 H Lymph % (Auto) 8.2 L Will % (Auto) Lymph # (Auto) Will # (Auto) Seg Neutrophils % 86.2 H Seg Neuts % (Manual) 91.0 H 88.0 H Lymphocytes % (Manual) 7.0 L 9.0 L Seg Neutrophils # 15.3 H Seg Neutrophils # Man 12.5 H 15.6 H Lymphocytes # (Manual) 1.0 L Monocytes # (Manual) D-Dimer ABG pH POC ABG pCO2 POC ABG pO2 ABG pO2 ABG HCO3 ABG O2 Saturation ABG Hemoglobin ABG Oxyhemoglobin ABG Potassium ABG Glucose VBG pH Oxyhemoglobin Sodium Potassium Chloride Carbon Dioxide 32 H BUN 29 H Glucose 150 H POC Glucose Hemoglobin A1c Ferritin AST Lactate Dehydrogenase 1150 H C-Reactive Protein Albumin 3.5 L Arterial Blood Glucose Coronavirus (PCR) 08/16/20 08/16/20 08/16/20 05:26 05:26 05:26 WBC Lymph % (Auto) Will % (Auto) Lymph # (Auto) Will # (Auto) Seg Neutrophils % Seg Neuts % (Manual) Lymphocytes % (Manual) Seg Neutrophils # Seg Neutrophils # Man Lymphocytes # (Manual) Monocytes # (Manual) D-Dimer > 78937 H ABG pH POC ABG pCO2 POC ABG pO2 ABG pO2 ABG HCO3 ABG O2 Saturation ABG Hemoglobin ABG Oxyhemoglobin ABG Potassium ABG Glucose VBG pH Oxyhemoglobin Sodium Potassium 5.2 H Chloride Carbon Dioxide BUN 25 H Glucose 163 H POC Glucose Hemoglobin A1c Ferritin 1013.0 H AST Lactate Dehydrogenase C-Reactive Protein 4.00 H Albumin 3.6 L Arterial Blood Glucose Coronavirus (PCR) 08/17/20 08/17/20 08/17/20 05:06 05:06 07:51 WBC 20.7 H Lymph % (Auto) Will % (Auto) Lymph # (Auto) Will # (Auto) Seg Neutrophils % Seg Neuts % (Manual) 86.0 H Lymphocytes % (Manual) 7.0 L Seg Neutrophils # Seg Neutrophils # Man 17.8 H Lymphocytes # (Manual) Monocytes # (Manual) 1.2 H D-Dimer ABG pH POC ABG pCO2 POC ABG pO2 ABG pO2 ABG HCO3 ABG O2 Saturation ABG Hemoglobin ABG Oxyhemoglobin ABG Potassium ABG Glucose VBG pH Oxyhemoglobin Sodium Potassium Chloride 96.5 L Carbon Dioxide 31 H BUN 29 H Glucose 121 H POC Glucose 110 H Hemoglobin A1c Ferritin AST 46 H Lactate Dehydrogenase C-Reactive Protein Albumin 3.7 L Arterial Blood Glucose Coronavirus (PCR) 08/17/20 08/17/20 08/18/20 11:42 21:45 05:13 WBC Lymph % (Auto) Will % (Auto) Lymph # (Auto) Will # (Auto) Seg Neutrophils % Seg Neuts % (Manual) Lymphocytes % (Manual) Seg Neutrophils # Seg Neutrophils # Man Lymphocytes # (Manual) Monocytes # (Manual) D-Dimer > 1000 H ABG pH POC ABG pCO2 POC ABG pO2 ABG pO2 ABG HCO3 ABG O2 Saturation ABG Hemoglobin ABG Oxyhemoglobin ABG Potassium ABG Glucose VBG pH Oxyhemoglobin Sodium Potassium Chloride Carbon Dioxide BUN Glucose POC Glucose 122 H 143 H Hemoglobin A1c Ferritin AST Lactate Dehydrogenase C-Reactive Protein Albumin Arterial Blood Glucose Coronavirus (PCR) 08/18/20 08/18/20 05:13 05:13 WBC Lymph % (Auto) Will % (Auto) Lymph # (Auto) Will # (Auto) Seg Neutrophils % Seg Neuts % (Manual) Lymphocytes % (Manual) Seg Neutrophils # Seg Neutrophils # Man Lymphocytes # (Manual) Monocytes # (Manual) D-Dimer ABG pH POC ABG pCO2 POC ABG pO2 ABG pO2 ABG HCO3 ABG O2 Saturation ABG Hemoglobin ABG Oxyhemoglobin ABG Potassium ABG Glucose VBG pH Oxyhemoglobin Sodium 133 L Potassium Chloride 94.7 L Carbon Dioxide BUN 33 H Glucose 110 H POC Glucose Hemoglobin A1c Ferritin 979.8 H AST 50 H Lactate Dehydrogenase C-Reactive Protein Albumin 3.7 L Arterial Blood Glucose Coronavirus (PCR)
[2020-08-20] MEDS: ENOXAPARIN 150 MG/1 ML INJ SUB-Q SCH ×2 (09:33→22:17)
[2020-08-20] MEDS: dexAMETHasone 4 MG/ML VIAL IV SCH ×2 (09:33→22:18)
[2020-08-20] MEDS: ASCORBIC ACID 500 MG TAB PO SCH ×2 (09:33→22:17)
[2020-08-20] MEDS: FAMOTIDINE 20 MG/2 ML INJ IV SCH ×2 (09:33→22:18)
[2020-08-20] MEDS: ZINC SULFATE 220 MG CAP PO SCH (09:33)
--- NOTE | 2020-08-20 10:19 | Progress Note ---
Assessment and Plan Assessment and plan: --Acute hypoxic respiratory failure secondary to COVID-19 PNA Continue oxygen supplementation with BIPAP --COVID-19 Pneumonia Continue antibiotics Continue steroids Remdesivir s/p tocilizumab Oxygen supplementation with BiPAP Trend inflammatory markers Prone positioning strongly advised ID and pulmonology following --Right lower extremity DVT D-dimer more than 10,000 US shows RLE DVT. Echocardiogram shows no right heart strain. Continue Lovenox 150 mg twice daily --Sinus bradycardia Likely from remdesivir Monitor for now TSH wnl --Morbid obesity Diet and exercise advised --DVT prophylaxis-Lovenox Brief history 30-year-old male with morbid obesity weighing about 310 pounds comes in for intermittent frontal headache for 3 days. In the emergency room patient was very hypoxic but denies shortness of breath or cough. No muscle aches. His oxygen levels are mid 80s. Denies smoking. Work-up in the emergency room showed bilateral patchy opacities in the lungs and hypoxia-hence he was admitted for bilateral pneumonia and possible Covid pneumonia. No significant past medical history 08/11. Patient seen examined at bedside this morning. Has no complaints. Febrile this a.m.-103 Fahrenheit. On Tylenol as needed. COVID-19 test ordered. Remains on steroids. ID consult if COVID-19 is positive. 08/12. His COVID-19 test is positive. He was started on remdesivir last night. Oxygen requirement increased overnight. Inflammatory markers increasing. Repeat chest xray shows worsening infiltrates. Ordered BNP. Lasix 40mg IV ordered. Increased dexamethasone to 6mg BID. Pulmonology consulted. Will place on continuous pulse oximetry. Incentive spirometer ordered. Advised prone positioning. 08/13. Not feeling better. Seen on BIPAP. Remains on steroids, remdesivir and antibiotics. Vitals stable. 08/14. Still maintaining sats even on BiPAP. Lasix 40 mg IV ordered. D-dimer this a.m. is more than 10,000. Lovenox increased to 150 mg twice daily. Ultra sound lower extremities Doppler showed a right DVT. Echocardiogram ordered to rule out right heart strain. Pending results, patient may need vascular surgery evaluation for possible thrombectomy. Continue on BiPAP and continue to monitor respiratory status closely. 08/15. Sats better this AM. Received toculizumab yesterday. Advised him to prone as much as possible. Echo shows normal EF with no right heart strain. I/Os reviewed. He is diuresing well. Renal function is stable. Will give additional lasix today. Pulmonology following 08/16. Remains on remdesivir. Still on BIPAP. Will give lasix 20mg IV. HR is low - likley effect of remdesivir. Will continue to monitor closely 08/17. Sats in the 90's this AM. Still on BIPAP. 08/18; patient remains hypoxic requiring BiPAP and 100% nonrebreather intermittently ID pulmonary following follow the recommendations Closely monitor the patient and adjust the management as needed 08/19; Continue supportive care, wean oxygen as tolerated. Encouraged PRONE positioning if able to tolerate. 08/20:Remains on BiPAP. continue lasix, still not proninig, encouraged to prone, FIO2 down to 90% with sat of 96%. Continue care, prognosis still guarded. The high probability of a clinically significant, sudden or life threatening deterioration of the [pulmonary] system(s) required my full and direct attention, intervention and personal management. The aggregate critical care time was [35] minutes. This time is in addition to time spent performing report ed procedures but includes the following: [x] Data Review and interpretation [x] Patient assessment and monitoring of vital signs [x] Documentation [x] Medication orders and management History Interval history: Patient seen and examined, remains in moderate distress and on BIPAP, mild improvement noted today I have seen and examined the patient in IMCU this morning Patient's chart and medications reviewed . I followed strict isolation precautions PPE protocols per COVID-19 guidelines throughout my interaction with this patient and in evaluation Patient is Covid positive, severely hypoxemic requiring BiPAP and intermittent 100% nonrebreather Hospitalist Physical - Physical exam Narrative exam: General appearance: Present: mild to moderate acute distress- on BIPAP, well-n ourished, obese (Morbidly obese) - EENT Eyes: Present: PERRL, EOM intact - Neck Neck: Present: supple, normal ROM - Respiratory Respiratory effort: normal Respiratory: bilateral: diminished, negative: rales, rhonchi, wheezing - Cardiovascular Rhythm: regular Heart Sounds: Present: S1 & S2 - Extremities Extremities: no ischemia, No edema - Abdominal General gastrointestinal: soft, non-tender, non-distended, normal bowel sounds - Integumentary Integumentary: Present: clear, warm - Psychiatric Psychiatric: appropriate mood/affect, cooperative - Neurologic Neurologic: CNII-XII intact, moves all extremities (Disease) - Constitutional Vitals: Temp Pulse Resp BP Pulse Ox 98.4 F 57 L 13 111/61 97 08/19/20 20:27 08/20/20 09:00 08/20/20 09:00 08/20/20 09:00 08/20/20 09:00 General appearance: Present: no acute distress, well-nourished, obese (Morbidly obese) Results - Labs CBC & Chem 7: 08/17/20 05:06 08/18/20 05:13 Labs: Laboratory Last Values WBC 20.7 K/mm3 (4.5-11.0) H 08/17/20 05:06 RBC 4.83 M/mm3 (3.65-5.03) 08/17/20 05:06 Hgb 13.9 gm/dl (11.8-15.2) 08/17/20 05:06 Hct 42.4 % (35.5-45.6) 08/17/20 05:06 MCV 88 fl (84-94) 08/17/20 05:06 MCH 29 pg (28-32) 08/17/20 05:06 MCHC 33 % (32-34) 08/17/20 05:06 RDW 13.6 % (13.2-15.2) 08/17/20 05:06 Plt Count 333 K/mm3 (140-440) 08/17/20 05:06 Lymph % (Auto) 8.2 % (13.4-35.0) L 08/16/20 05:26 [place] % (Auto) 4.7 % (0.0-7.3) 08/16/20 05:26 Eos % (Auto) 0.2 % (0.0-4.3) 08/16/20 05:26 Baso % (Auto) 0.7 % (0.0-1.8) 08/16/20 05:26 Lymph # (Auto) 1.5 K/mm3 (1.2-5.4) 08/16/20 05:26 [place] # (Auto) 0.8 K/mm3 (0.0-0.8) 08/16/20 05:26 Eos # (Auto) 0.0 K/mm3 (0.0-0.4) 08/16/20 05:26 Baso # (Auto) 0.1 K/mm3 (0.0-0.1) 08/16/20 05:26 Add Manual Diff Complete 08/17/20 05:06 Total Counted 100 08/17/20 05:06 Seg Neutrophils % 86.2 % (40.0-70.0) H 08/16/20 05:26 Seg Neuts % (Manual) 86.0 % (40.0-70.0) H 08/17/20 05:06 Lymphocytes % (Manual) 7.0 % (13.4-35.0) L 08/17/20 05:06 Monocytes % (Manual) 6.0 % (0.0-7.3) 08/17/20 05:06 Eosinophils % (Manual) 1.0 % (0.0-4.3) 08/17/20 05:06 Metamyelocytes % 2.0 % 08/15/20 05:16 Nucleated RBC % Not Reportable 08/17/20 05:06 Seg Neutrophils # 15.3 K/mm3 (1.8-7.7) H 08/16/20 05:26 Seg Neutrophils # Man 17.8 K/mm3 (1.8-7.7) H 08/17/20 05:06 Band Neutrophils # 0.0 K/mm3 08/17/20 05:06 Lymphocytes # (Manual) 1.4 K/mm3 (1.2-5.4) 08/17/20 05:06 Abs React Lymphs (Man) 0.0 K/mm3 08/17/20 05:06 Monocytes # (Manual) 1.2 K/mm3 (0.0-0.8) H 08/17/20 05:06 Eosinophils # (Manual) 0.2 K/mm3 (0.0-0.4) 08/17/20 05:06 Basophils # (Manual) 0.0 K/mm3 (0.0-0.1) 08/17/20 05:06 Metamyelocytes # 0.0 K/mm3 08/17/20 05:06 Myelocytes # 0.0 K/mm3 08/17/20 05:06 Promyelocytes # 0.0 K/mm3 08/17/20 05:06 Blast Cells # 0.0 K/mm3 08/17/20 05:06 WBC Morphology Not Reportable 08/17/20 05:06 Hypersegmented Neuts Not Reportable 08/17/20 05:06 Hyposegmented Neuts Not Reportable 08/17/20 05:06 Hypogranular Neuts Not Reportable 08/17/20 05:06 Smudge Cells Not Reportable 08/17/20 05:06 Toxic Granulation Not Reportable 08/17/20 05:06 Toxic Vacuolation Not Reportable 08/17/20 05:06 Dohle Bodies Not Reportable 08/17/20 05:06 Pelger-Huet Anomaly Not Reportable 08/17/20 05:06 Juan Luis Rods Not Reportable 08/17/20 05:06 Platelet Estimate Consistent w auto 08/17/20 05:06 Clumped Platelets Not Reportable 08/17/20 05:06 Plt Clumps, EDTA Not Reportable 08/17/20 05:06 Large Platelets Not Reportable 08/17/20 05:06 Giant Platelets Not Reportable 08/17/20 05:06 Platelet Satelliting Not Reportable 08/17/20 05:06 Plt Morphology Comment Not Reportable 08/17/20 05:06 RBC Morphology Not Reportable 08/17/20 05:06 Dimorphic RBCs Not Reportable 08/17/20 05:06 Polychromasia Not Reportable 08/17/20 05:06 Hypochromasia Not Reportable 08/17/20 05:06 Poikilocytosis Not Reportable 08/17/20 05:06 Anisocytosis Few 08/17/20 05:06 Microcytosis Not Reportable 08/17/20 05:06 Macrocytosis Not Reportable 08/17/20 05:06 Spherocytes Not Reportable 08/17/20 05:06 Pappenheimer Bodies Not Reportable 08/17/20 05:06 Sickle Cells Not Reportable 08/17/20 05:06 Target Cells Not Reportable 08/17/20 05:06 Tear Drop Cells Not Reportable 08/17/20 05:06 Ovalocytes Not Reportable 08/17/20 05:06 Helmet Cells Not Reportable 08/17/20 05:06 [place] Bodies Not Reportable 08/17/20 05:06 Gary Rings Not Reportable 08/17/20 05:06 Horner Cells Not Reportable 08/17/20 05:06 Bite Cells Not Reportable 08/17/20 05:06 Crenated Cell Not Reportable 08/17/20 05:06 Elliptocytes Not Reportable 08/17/20 05:06 Acanthocytes (Spur) Not Reportable 08/17/20 05:06 Rouleaux Not Reportable 08/17/20 05:06 Hemoglobin C Crystals Not Reportable 08/17/20 05:06 Schistocytes Not Reportable 08/17/20 05:06 Malaria parasites Not Reportable 08/17/20 05:06 Asif Bodies Not Reportable 08/17/20 05:06 Hem Pathologist Commnt No 08/17/20 05:06 PT 12.6 Sec. (12.2-14.9) 08/10/20 08:29 INR 0.96 (0.87-1.13) 08/10/20 08:29 D-Dimer > 1000 ng/mlDDU (0-234) H 08/18/20 05:13 ABG pH 7.443 (7.320-7.450) 08/14/20 08:23 POC ABG pCO2 46.9 mmHg (32.0-48.0) 08/14/20 08:23 ABG pCO2 62.9 mm Hg 08/12/20 14:55 POC ABG pO2 50.0 mmHg (83-108) L 08/14/20 08:23 ABG pO2 65.8 mm Hg (80.0-90.0) L 08/12/20 14:55 POC ABG HCO3 31.4 08/14/20 08:23 ABG HCO3 31.4 mmol/L (20.0-26.0) H 08/12/20 14:55 ABG O2 Saturation 85.0 (0-100) 08/14/20 08:23 ABG O2 Content 24.3 (0.0-44) 08/12/20 14:55 POC ABG Base Excess 6.3 08/14/20 08:23 ABG Base Excess 2.6 mmol/L (-2.0-3.0) 08/12/20 14:55 ABG Hemoglobin 13.4 (12.0-17.5) 08/14/20 08:23 ABG Oxyhemoglobin 84.0 (94-98) L 08/14/20 08:23 ABG Carboxyhemoglobin 1.7 % (0.0-5.0) 08/12/20 14:55 ABG Methemoglobin 0.3 (0.0-1.5) 08/14/20 08:23 ABG Sodium 139.2 mmol/L (136.0-145.0) 08/14/20 08:23 ABG Potassium 4.5 mmol/L (3.40-4.50) 08/14/20 08:23 ABG Chloride 99.0 mmol/L (98-107) 08/14/20 08:23 ABG Glucose 141 mg/dL (65-95) H 08/14/20 08:23 VBG pH 7.303 (7.320-7.420) L 08/10/20 08:29 Oxyhemoglobin 89.7 % (95.0-99.0) L 08/12/20 14:55 Carboxyhemoglobin 0.9 (0.5-1.5) 08/14/20 08:23 FiO2 60 % 08/12/20 14:55 FiO2 % 100 08/14/20 08:23 Sodium 133 mmol/L (137-145) L 08/18/20 05:13 Potassium 4.9 mmol/L (3.6-5.0) 08/18/20 05:13 Chloride 94.7 mmol/L (98-107) L 08/18/20 05:13 Carbon Dioxide 27 mmol/L (22-30) 08/18/20 05:13 Anion Gap 16 mmol/L 08/18/20 05:13 BUN 33 mg/dL (9-20) H 08/18/20 05:13 Creatinine 1.0 mg/dL (0.8-1.3) 08/18/20 05:13 Estimated GFR > 60 ml/min 08/18/20 05:13 BUN/Creatinine Ratio 33 % 08/18/20 05:13 Glucose 110 mg/dL (75-100) H 08/18/20 05:13 POC Glucose 143 mg/dL (70-105) H 08/17/20 21:45 Hemoglobin A1c 6.1 % (4-6) H 08/11/20 05:39 Lactic Acid 0.80 mmol/L (0.7-2.0) 08/10/20 11:18 Calcium 9.0 mg/dL (8.4-10.2) 08/18/20 05:13 Ferritin 979.8 ng/mL (30.0-300.0) H 08/18/20 05:13 Total Bilirubin 0.50 mg/dL (0.1-1.2) 08/18/20 05:13 AST 50 units/L (5-40) H 08/18/20 05:13 ALT 50 units/L (7-56) 08/18/20 05:13 Alkaline Phosphatase 103 units/L (35-129) 08/18/20 05:13 Lactate Dehydrogenase 1150 units/L (91-180) H 08/15/20 05:16 C-Reactive Protein 1.00 mg/dL (0.00-1.30) 08/18/20 05:13 NT-Pro-B Natriuret Pep 36.40 pg/mL (0-450) 08/12/20 06:29 Total Protein 6.9 g/dL (6.3-8.2) 08/18/20 05:13 Albumin 3.7 g/dL (3.9-5) L 08/18/20 05:13 Albumin/Globulin Ratio 1.1 % 08/18/20 05:13 Procalcitonin 0.22 ng/mL (<0.15) 08/16/20 05:26 TSH 1.830 mlU/mL (0.270-4.200) 08/17/20 05:06 Free T4 1.01 ng/dL (0.76-1.46) 08/17/20 05:06 Arterial Blood Glucose 141 mg/dL (65-95) H 08/14/20 08:23 Arterial Blood Ionized Calcium 4.8 mg/dL (4.6-5.3) 08/14/20 08:23 Urine Color Yellow (Yellow) 08/10/20 Unknown Urine Turbidity Cloudy (Clear) 08/10/20 Unknown Urine pH 5.0 (5.0-7.0) 08/10/20 Unknown Ur Specific [place] 1.025 (1.003-1.030) 08/10/20 Unknown Urine Protein 30 mg/dl mg/dL (Negative) 08/10/20 Unknown Urine Glucose (UA) 150 mg/dL (Negative) 08/10/20 Unknown Urine Ketones Negative mg/dL (Negative) 08/10/20 Unknown Urine Blood Negative (Negative) 08/10/20 Unknown Urine Nitrite Negative (Negative) 08/10/20 Unknown Urine Bilirubin Negative (Negative) 08/10/20 Unknown Urine Urobilinogen < 2.0 mg/dL (<2.0) 08/10/20 Unknown Ur Leukocyte Esterase Negative (Negative) 08/10/20 Unknown Urine WBC (Auto) 5.0 /HPF (0.0-6.0) 08/10/20 Unknown Urine RBC (Auto) 2.0 /HPF (0.0-6.0) 08/10/20 Unknown U Epithel Cells (Auto) 1.0 /HPF (0-13.0) 08/10/20 Unknown Urine Bacteria (Auto) 1+ /HPF (Negative) 08/10/20 Unknown Urine Mucus 3+ /HPF 08/10/20 Unknown Coronavirus (PCR) Positive (Negative) A 08/11/20 Unknown Gaytan/IV: Voiding Method Urinal Active Medications - Current Medications Current Medications: Generic Name Dose Route Start Last Admin Trade Name Freq PRN Reason Stop Dose Admin Acetaminophen 650 mg 08/10/20 23:48 08/19/20 21:27 Acetaminophen 325 Mg Tab PO 650 mg Q4H PRN Administration Pain MILD(1-3)/Fever >100.5/MARTINEZ Artificial Tears 2 drops 08/16/20 13:44 Hypromellose 0.5% Ophth Soln 15 Ml OU Q4H PRN Dry Eye(s) Ascorbic Acid 500 mg 08/12/20 10:00 08/20/20 09:33 Ascorbic Acid 500 Mg Tab PO 500 mg BID MELANIE Administration Dexamethasone 6 mg 08/12/20 10:00 08/20/20 09:33 Dexamethasone 4 Mg/Ml Vial IV 08/21/20 22:01 6 mg Q12HR MELANIE Administration Enoxaparin Sodium 150 mg 08/14/20 10:00 08/20/20 09:33 Enoxaparin 150 Mg/1 Ml Inj SUB-Q 150 mg Q12HR MELANIE Administration Famotidine 20 mg 08/11/20 10:00 08/20/20 09:33 Famotidine 20 Mg/2 Ml Inj IV 20 mg BID MELANIE Administration Metoclopramide HCl 10 mg 08/10/20 23:48 Metoclopramide 10 Mg/2 Ml Inj IV Q6H PRN Nausea And Vomiting Morphine Sulfate 2 mg 08/10/20 23:48 Morphine 2 Mg/1 Ml Inj IV Q4H PRN Pain, Moderate (4-6) Ondansetron HCl 4 mg 08/10/20 23:48 Ondansetron 4 Mg/2 Ml Inj IV Q8H PRN Nausea And Vomiting Oxycodone/Acetaminophen 1 tab 08/10/20 23:48 Oxycodone /Acetaminophen 5-325mg Tab PO Q6H PRN Pain, Moderate (4-6) Sodium Chloride 10 ml 08/11/20 10:00 08/20/20 09:35 Sodium Chloride 0.9% 10 Ml Flush Syringe IV 10 ml BID MELANIE Administration Sodium Chloride 10 ml 08/10/20 23:48 08/12/20 21:04 Sodium Chloride 0.9% 10 Ml Flush Syringe IV 10 ml PRN PRN Administration LINE FLUSH Zinc Sulfate 220 mg 08/12/20 12:00 08/20/20 09:33 Zinc Sulfate 220 Mg Cap PO 220 mg QDAY MELANIE Administration Nutrition/Malnutrition Assess - Dietary Evaluation Nutrition/Malnutrition Findings: Nutrition Notes Start: 08/17/20 10:49 Freq: Status: Active Protocol: Document 08/17/20 10:49 GHADA (Rec: 08/17/20 11:00 GHADA [id number]) Nutrition Notes Need for Assessment generated from: LOS Initial or Follow up Assessment Other Pertinent Diagnosis COVID-19 (+), pneu, RLE DVT, sinus bradycardia Current Diet Regular Labs/Tests BUN 29 CO2 - 31 Pertinent Medications Vit C, Decadron, Zinc sulfate Height 5 ft 11 in Weight 147.5 kg [place] Body Weight (kg) 78.18 BMI 45.3 Weight Status Morbidly Obese Subjective/Other Information Pt screened for LOS. He consumed 25% of 3 meals on (no other PO intakes documented). Unable to reach pt via phone at 10:35. Pulmonary wants to try to prevent intubation, but will do so if necessary. Pt being proned as tolerated and is on BiPap support. Will order ONS , as drinking is likely easier than chewing at this time. Percent of energy/protein needs met: 28% energy 25% pro Burn Absent Trauma Absent Current % PO Poor (25-49%) Minimum of two criteria No #1 Nutrition Diagnosis Inadequate oral intake Etiology COVID-19 (+), continuous BiPap support As Evidenced by Signs and Symptoms pt consuming <50% of meals Is patient on ventilator? No Is Patient Ambulatory and/or Out of Bed No REE-([facility]conf[facility] bed) 2955.564 Kcal/Kg value to use for calculation 14 Approximate Energy Requirements Using 2065 kcal/Kg Calculation Used for Recommendations Kcal/kg Additional Notes Pro needs 0.8-1g/kg adjBW: 90- 113g/day Fluid needs 1ml/kcal Nutrition Intervention Change Diet Order: Continue current diet as tolerated Add Supplement/Snack (indicate name/kcal Ensure High Protein BID /protein ) Provides kCal: 320 Provides Protein (gm) 32 Goal #1 PO tolerance Goal #2 PO intake of meals plus ONS to meet at least 75% energy and pro needs Anticipated Discharge Needs: Unable to identify at this time Follow-Up By: 08/21/20 Additional Comments F/U: intakes (meals, ONS), intubation vs BiPap use
--- NOTE | 2020-08-20 12:33 | Progress Note ---
Subjective Date of service: 08/20/20 Interval history: 30 y/o morbidly obese male with acute respiratory failure secondary to COVID 19 pneumonia. now found to have DVT in lower ext. 08/20/2020: Patient seems to be improving to some degree. Has been on BiPAP or nonrebreather mask. FiO2 down to 90%. Remain awake and alert. We will continue with the current management at this point continue to wean FiO2 as tolerated. 08/19/20: Pt awake and alert on 100% FiO2 BIPAP with sats at 100%. Would like to wean FiO2, RT notified. 08/18/20: Bipap pRN and QHS. More lasix today. Prone as tolerated during the day and sleep prone at night. CONtinue to try to hold off on intubation. Guarded prognosis. 08/17/20: Continue anticoagulation. Still trying to prevent intubation however will do electively if and when needed to prevent and emergent situation as patient will likely be difficult given neck and body habitus. Continue prone as tolerated. Steroids and remdesivir. 08/16/20: Anticoagulation. Prone as tolerated. Wean bipap as tolerated. Prognosis remains guarded. Trying to prevent intubation given poor outcomes associated with mechanically ventilated obese COVID patients. 08/15/20: Continue therapeutic anticoagulation. No current indication for vascular consult given no evidence of right heart strain on echo. CT would only be beneficial if we thought it would show large enough clot to warrant EKOS and with no evidence of strain, I doubt that will be the case. Continue proning as much as tolerated. Spoke with mother over the phone to update her. Patient also got actemra on yesterday as well. Prognosis remains guarded 08/14/20: Will accept sats in the mid 80's as long as mental state and work of breathing do not change. AGree with lasix therapy. Found to have large DVT on right. Spoke with [facility] and asked them to order stat echo to look for right heart strain, and if present may need to consider echos. Await echo before vascular consult. Prone if possible. Long discussion with mother on phone. Gave her a list of the meds he is on and what our current plan is. Also very candid with her and son at bedside that the mortality rate with COVID is very very high. 08/13/20: Lasix again today. Continue to alternate between HFNC with NRB and bipap. Prognosis is very very guarded. Very very guarded to poor prognosis given CXR appearance, and body habitus, along with rapid decline in self sustaning oxygen levels. Agree with lasix and increase in steroids. Must prone. Very high likelihood for mechanical ventilation which would carry a high mortality for patient. Will continue to follow. No additional IVF's unless indicated. Total critical care time 31-minute Objective Vital Signs - 12hr 08/20/20 08/20/20 08/20/20 00:50 01:00 02:00 Pulse Rate 57 L 59 L 62 Pulse Rate [ From Monitor] Respiratory 22 21 15 Rate Blood Pressure 112/50 109/55 115/61 O2 Sat by Pulse 94 94 95 Oximetry 08/20/20 08/20/20 08/20/20 03:00 04:00 04:02 Pulse Rate 58 L 58 L 60 Pulse Rate [ 58 L From Monitor] Respiratory 17 13 Rate Blood Pressure 115/60 106/54 O2 Sat by Pulse 98 97 Oximetry 08/20/20 08/20/20 08/20/20 05:00 06:00 07:00 Pulse Rate 61 64 56 L Pulse Rate [ From Monitor] Respiratory 13 12 12 Rate Blood Pressure 120/66 110/60 110/60 O2 Sat by Pulse 95 96 97 Oximetry 08/20/20 08/20/20 08/20/20 08:00 09:00 10:00 Pulse Rate 59 L 57 L 65 Pulse Rate [ 58 L From Monitor] Respiratory 15 13 12 Rate Blood Pressure 118/70 111/61 111/61 O2 Sat by Pulse 96 97 95 Oximetry 08/20/20 08/20/20 11:00 12:00 Pulse Rate 59 L 58 L Pulse Rate [ From Monitor] Respiratory 19 11 L Rate Blood Pressure 127/69 117/72 O2 Sat by Pulse 97 97 Oximetry CBC and BMP: 08/17/20 05:06 08/18/20 05:13 ABG, PT/INR, D-dimer: ABG ABG pH 7.443 (7.320-7.450) 08/14/20 08:23 POC ABG pCO2 46.9 mmHg (32.0-48.0) 08/14/20 08:23 ABG pCO2 62.9 mm Hg 08/12/20 14:55 POC ABG pO2 50.0 mmHg (83-108) L 08/14/20 08:23 ABG pO2 65.8 mm Hg (80.0-90.0) L 08/12/20 14:55 POC ABG HCO3 31.4 08/14/20 08:23 ABG O2 Saturation 85.0 (0-100) 08/14/20 08:23 PT/INR, D-dimer PT 12.6 Sec. (12.2-14.9) 08/10/20 08:29 INR 0.96 (0.87-1.13) 08/10/20 08:29 D-Dimer > 1000 ng/mlDDU (0-234) H 08/18/20 05:13 Abnormal lab findings: Abnormal Labs 08/10/20 08/10/20 08/10/20 08:29 08:29 08:29 WBC Lymph % (Auto) [place] % (Auto) 8.4 H Lymph # (Auto) [place] # (Auto) Seg Neutrophils % Seg Neuts % (Manual) Lymphocytes % (Manual) Seg Neutrophils # Seg Neutrophils # Man Lymphocytes # (Manual) Monocytes # (Manual) D-Dimer ABG pH POC ABG pCO2 POC ABG pO2 ABG pO2 ABG HCO3 ABG O2 Saturation ABG Hemoglobin ABG Oxyhemoglobin ABG Potassium ABG Glucose VBG pH 7.303 L Oxyhemoglobin Sodium Potassium Chloride Carbon Dioxide BUN Glucose 132 H POC Glucose Hemoglobin A1c Ferritin AST Lactate Dehydrogenase C-Reactive Protein Albumin Arterial Blood Glucose Coronavirus (PCR) 08/11/20 08/11/20 08/11/20 05:39 05:39 05:39 WBC Lymph % (Auto) 12.5 L [place] % (Auto) Lymph # (Auto) [place] # (Auto) Seg Neutrophils % 84.2 H Seg Neuts % (Manual) Lymphocytes % (Manual) Seg Neutrophils # 9.1 H Seg Neutrophils # Man Lymphocytes # (Manual) Monocytes # (Manual) D-Dimer ABG pH POC ABG pCO2 POC ABG pO2 ABG pO2 ABG HCO3 ABG O2 Saturation ABG Hemoglobin ABG Oxyhemoglobin ABG Potassium ABG Glucose VBG pH Oxyhemoglobin Sodium Potassium Chloride Carbon Dioxide BUN Glucose 125 H POC Glucose Hemoglobin A1c 6.1 H Ferritin AST Lactate Dehydrogenase C-Reactive Protein Albumin Arterial Blood Glucose Coronavirus (PCR) 08/11/20 08/11/20 08/11/20 18:58 18:58 18:58 WBC Lymph % (Auto) [place] % (Auto) Lymph # (Auto) [place] # (Auto) Seg Neutrophils % Seg Neuts % (Manual) Lymphocytes % (Manual) Seg Neutrophils # Seg Neutrophils # Man Lymphocytes # (Manual) Monocytes # (Manual) D-Dimer 464.84 H ABG pH POC ABG pCO2 POC ABG pO2 ABG pO2 ABG HCO3 ABG O2 Saturation ABG Hemoglobin ABG Oxyhemoglobin ABG Potassium ABG Glucose VBG pH Oxyhemoglobin Sodium Potassium Chloride Carbon Dioxide BUN Glucose POC Glucose Hemoglobin A1c Ferritin 528.7 H AST Lactate Dehydrogenase 637 H C-Reactive Protein 11.30 H Albumin Arterial Blood Glucose Coronavirus (PCR) 08/11/20 08/11/20 08/12/20 19:08 Unknown 06:29 WBC 11.2 H Lymph % (Auto) 8.6 L [place] % (Auto) Lymph # (Auto) 1.0 L [place] # (Auto) Seg Neutrophils % 88.3 H Seg Neuts % (Manual) Lymphocytes % (Manual) Seg Neutrophils # 9.8 H Seg Neutrophils # Man Lymphocytes # (Manual) Monocytes # (Manual) D-Dimer ABG pH POC ABG pCO2 POC ABG pO2 ABG pO2 ABG HCO3 ABG O2 Saturation ABG Hemoglobin ABG Oxyhemoglobin ABG Potassium ABG Glucose VBG pH Oxyhemoglobin Sodium Potassium Chloride Carbon Dioxide BUN Glucose 161 H POC Glucose Hemoglobin A1c Ferritin AST Lactate Dehydrogenase C-Reactive Protein Albumin Arterial Blood Glucose Coronavirus (PCR) Positive A 08/12/20 08/12/20 08/12/20 06:29 06:29 06:29 WBC Lymph % (Auto) [place] % (Auto) Lymph # (Auto) [place] # (Auto) Seg Neutrophils % Seg Neuts % (Manual) Lymphocytes % (Manual) Seg Neutrophils # Seg Neutrophils # Man Lymphocytes # (Manual) Monocytes # (Manual) D-Dimer 830.34 H ABG pH POC ABG pCO2 POC ABG pO2 ABG pO2 ABG HCO3 ABG O2 Saturation ABG Hemoglobin ABG Oxyhemoglobin ABG Potassium ABG Glucose VBG pH Oxyhemoglobin Sodium Potassium Chloride Carbon Dioxide 31 H BUN Glucose 138 H POC Glucose Hemoglobin A1c Ferritin 572.6 H AST 42 H Lactate Dehydrogenase 706 H C-Reactive Protein 17.30 H Albumin 3.7 L Arterial Blood Glucose Coronavirus (PCR) 08/12/20 08/12/20 08/12/20 13:21 14:55 21:59 WBC Lymph % (Auto) [place] % (Auto) Lymph # (Auto) [place] # (Auto) Seg Neutrophils % Seg Neuts % (Manual) Lymphocytes % (Manual) Seg Neutrophils # Seg Neutrophils # Man Lymphocytes # (Manual) Monocytes # (Manual) D-Dimer ABG pH 7.315 L POC ABG pCO2 57.1 H POC ABG pO2 47.8 L ABG pO2 65.8 L ABG HCO3 31.4 H ABG O2 Saturation 91.7 L ABG Hemoglobin 19.3 H ABG Oxyhemoglobin ABG Potassium 4.9 H ABG Glucose 182 H VBG pH Oxyhemoglobin 89.7 L Sodium Potassium Chloride Carbon Dioxide BUN Glucose POC Glucose 142 H Hemoglobin A1c Ferritin AST Lactate Dehydrogenase C-Reactive Protein Albumin Arterial Blood Glucose 182 H Coronavirus (PCR) 08/13/20 08/13/20 08/13/20 05:35 05:35 12:11 WBC 12.0 H Lymph % (Auto) 8.1 L [place] % (Auto) Lymph # (Auto) 1.0 L [place] # (Auto) Seg Neutrophils % 88.0 H Seg Neuts % (Manual) Lymphocytes % (Manual) Seg Neutrophils # 10.5 H Seg Neutrophils # Man Lymphocytes # (Manual) Monocytes # (Manual) D-Dimer ABG pH POC ABG pCO2 POC ABG pO2 ABG pO2 ABG HCO3 ABG O2 Saturation ABG Hemoglobin ABG Oxyhemoglobin ABG Potassium ABG Glucose VBG pH Oxyhemoglobin Sodium Potassium 5.1 H Chloride Carbon Dioxide 31 H BUN 25 H Glucose 174 H POC Glucose 154 H Hemoglobin A1c Ferritin AST 41 H Lactate Dehydrogenase 996 H C-Reactive Protein Albumin 3.8 L Arterial Blood Glucose Coronavirus (PCR) 08/13/20 08/13/20 08/14/20 16:18 23:24 05:21 WBC 14.2 H Lymph % (Auto) 8.2 L [place] % (Auto) Lymph # (Auto) [place] # (Auto) 0.9 H Seg Neutrophils % 85.4 H Seg Neuts % (Manual) Lymphocytes % (Manual) Seg Neutrophils # 12.2 H Seg Neutrophils # Man Lymphocytes # (Manual) Monocytes # (Manual) D-Dimer ABG pH POC ABG pCO2 POC ABG pO2 ABG pO2 ABG HCO3 ABG O2 Saturation ABG Hemoglobin ABG Oxyhemoglobin ABG Potassium ABG Glucose VBG pH Oxyhemoglobin Sodium Potassium Chloride Carbon Dioxide BUN Glucose POC Glucose 188 H 127 H Hemoglobin A1c Ferritin AST Lactate Dehydrogenase C-Reactive Protein Albumin Arterial Blood Glucose Coronavirus (PCR) 08/14/20 08/14/20 08/14/20 05:21 05:21 05:21 WBC Lymph % (Auto) [place] % (Auto) Lymph # (Auto) [place] # (Auto) Seg Neutrophils % Seg Neuts % (Manual) Lymphocytes % (Manual) Seg Neutrophils # Seg Neutrophils # Man Lymphocytes # (Manual) Monocytes # (Manual) D-Dimer > 10278 H ABG pH POC ABG pCO2 POC ABG pO2 ABG pO2 ABG HCO3 ABG O2 Saturation ABG Hemoglobin ABG Oxyhemoglobin ABG Potassium ABG Glucose VBG pH Oxyhemoglobin Sodium Potassium Chloride Carbon Dioxide 32 H 33 H BUN 26 H 26 H Glucose 152 H 156 H POC Glucose Hemoglobin A1c Ferritin AST 53 H 54 H Lactate Dehydrogenase 1249 H C-Reactive Protein 9.90 H Albumin 3.7 L 3.7 L Arterial Blood Glucose Coronavirus (PCR) 08/14/20 08/14/20 08/14/20 05:21 05:58 08:23 WBC Lymph % (Auto) [place] % (Auto) Lymph # (Auto) [place] # (Auto) Seg Neutrophils % Seg Neuts % (Manual) Lymphocytes % (Manual) Seg Neutrophils # Seg Neutrophils # Man Lymphocytes # (Manual) Monocytes # (Manual) D-Dimer ABG pH POC ABG pCO2 POC ABG pO2 50.0 L ABG pO2 ABG HCO3 ABG O2 Saturation ABG Hemoglobin ABG Oxyhemoglobin 84.0 L ABG Potassium ABG Glucose 141 H VBG pH Oxyhemoglobin Sodium Potassium Chloride Carbon Dioxide BUN Glucose POC Glucose 139 H Hemoglobin A1c Ferritin 1198.0 H AST Lactate Dehydrogenase C-Reactive Protein Albumin Arterial Blood Glucose 141 H Coronavirus (PCR) 08/15/20 08/15/20 08/16/20 05:16 05:16 05:26 WBC 13.7 H 17.7 H Lymph % (Auto) 8.2 L [place] % (Auto) Lymph # (Auto) [place] # (Auto) Seg Neutrophils % 86.2 H Seg Neuts % (Manual) 91.0 H 88.0 H Lymphocytes % (Manual) 7.0 L 9.0 L Seg Neutrophils # 15.3 H Seg Neutrophils # Man 12.5 H 15.6 H Lymphocytes # (Manual) 1.0 L Monocytes # (Manual) D-Dimer ABG pH POC ABG pCO2 POC ABG pO2 ABG pO2 ABG HCO3 ABG O2 Saturation ABG Hemoglobin ABG Oxyhemoglobin ABG Potassium ABG Glucose VBG pH Oxyhemoglobin Sodium Potassium Chloride Carbon Dioxide 32 H BUN 29 H Glucose 150 H POC Glucose Hemoglobin A1c Ferritin AST Lactate Dehydrogenase 1150 H C-Reactive Protein Albumin 3.5 L Arterial Blood Glucose Coronavirus (PCR) 08/16/20 08/16/20 08/16/20 05:26 05:26 05:26 WBC Lymph % (Auto) [place] % (Auto) Lymph # (Auto) [place] # (Auto) Seg Neutrophils % Seg Neuts % (Manual) Lymphocytes % (Manual) Seg Neutrophils # Seg Neutrophils # Man Lymphocytes # (Manual) Monocytes # (Manual) D-Dimer > 42544 H ABG pH POC ABG pCO2 POC ABG pO2 ABG pO2 ABG HCO3 ABG O2 Saturation ABG Hemoglobin ABG Oxyhemoglobin ABG Potassium ABG Glucose VBG pH Oxyhemoglobin Sodium Potassium 5.2 H Chloride Carbon Dioxide BUN 25 H Glucose 163 H POC Glucose Hemoglobin A1c Ferritin 1013.0 H AST Lactate Dehydrogenase C-Reactive Protein 4.00 H Albumin 3.6 L Arterial Blood Glucose Coronavirus (PCR) 08/17/20 08/17/20 08/17/20 05:06 05:06 07:51 WBC 20.7 H Lymph % (Auto) [place] % (Auto) Lymph # (Auto) [place] # (Auto) Seg Neutrophils % Seg Neuts % (Manual) 86.0 H Lymphocytes % (Manual) 7.0 L Seg Neutrophils # Seg Neutrophils # Man 17.8 H Lymphocytes # (Manual) Monocytes # (Manual) 1.2 H D-Dimer ABG pH POC ABG pCO2 POC ABG pO2 ABG pO2 ABG HCO3 ABG O2 Saturation ABG Hemoglobin ABG Oxyhemoglobin ABG Potassium ABG Glucose VBG pH Oxyhemoglobin Sodium Potassium Chloride 96.5 L Carbon Dioxide 31 H BUN 29 H Glucose 121 H POC Glucose 110 H Hemoglobin A1c Ferritin AST 46 H Lactate Dehydrogenase C-Reactive Protein Albumin 3.7 L Arterial Blood Glucose Coronavirus (PCR) 08/17/20 08/17/20 08/18/20 11:42 21:45 05:13 WBC Lymph % (Auto) [place] % (Auto) Lymph # (Auto) [place] # (Auto) Seg Neutrophils % Seg Neuts % (Manual) Lymphocytes % (Manual) Seg Neutrophils # Seg Neutrophils # Man Lymphocytes # (Manual) Monocytes # (Manual) D-Dimer > 1000 H ABG pH POC ABG pCO2 POC ABG pO2 ABG pO2 ABG HCO3 ABG O2 Saturation ABG Hemoglobin ABG Oxyhemoglobin ABG Potassium ABG Glucose VBG pH Oxyhemoglobin Sodium Potassium Chloride Carbon Dioxide BUN Glucose POC Glucose 122 H 143 H Hemoglobin A1c Ferritin AST Lactate Dehydrogenase C-Reactive Protein Albumin Arterial Blood Glucose Coronavirus (PCR) 08/18/20 08/18/20 05:13 05:13 WBC Lymph % (Auto) [place] % (Auto) Lymph # (Auto) [place] # (Auto) Seg Neutrophils % Seg Neuts % (Manual) Lymphocytes % (Manual) Seg Neutrophils # Seg Neutrophils # Man Lymphocytes # (Manual) Monocytes # (Manual) D-Dimer ABG pH POC ABG pCO2 POC ABG pO2 ABG pO2 ABG HCO3 ABG O2 Saturation ABG Hemoglobin ABG Oxyhemoglobin ABG Potassium ABG Glucose VBG pH Oxyhemoglobin Sodium 133 L Potassium Chloride 94.7 L Carbon Dioxide BUN 33 H Glucose 110 H POC Glucose Hemoglobin A1c Ferritin 979.8 H AST 50 H Lactate Dehydrogenase C-Reactive Protein Albumin 3.7 L Arterial Blood Glucose Coronavirus (PCR)
[2020-08-20] MEDS: ACETAMINOPHEN 325 MG TAB PO PRN (22:17)
[2020-08-21] MEDS: FAMOTIDINE 20 MG/2 ML INJ IV SCH ×2 (09:22→21:41)
[2020-08-21] MEDS: ENOXAPARIN 150 MG/1 ML INJ SUB-Q SCH ×2 (09:22→21:41)
[2020-08-21] MEDS: dexAMETHasone 4 MG/ML VIAL IV SCH ×2 (09:22→21:39)
[2020-08-21] MEDS: ZINC SULFATE 220 MG CAP PO SCH (09:23)
[2020-08-21] MEDS: ASCORBIC ACID 500 MG TAB PO SCH ×2 (09:23→21:42)
--- NOTE | 2020-08-21 11:20 | Progress Note ---
Assessment and Plan Assessment and plan: --Acute hypoxic respiratory failure secondary to COVID-19 PNA Continue oxygen supplementation with BIPAP --COVID-19 Pneumonia Continue antibiotics Continue steroids Remdesivir s/p tocilizumab Oxygen supplementation with BiPAP Trend inflammatory markers Prone positioning strongly advised ID and pulmonology following --Right lower extremity DVT D-dimer more than 10,000 US shows RLE DVT. Echocardiogram shows no right heart strain. Continue Lovenox 150 mg twice daily --Sinus bradycardia Likely from remdesivir Monitor for now TSH wnl --Morbid obesity Diet and exercise advised --DVT prophylaxis-Lovenox Brief history 30-year-old male with morbid obesity weighing about 310 pounds comes in for intermittent frontal headache for 3 days. In the emergency room patient was very hypoxic but denies shortness of breath or cough. No muscle aches. His oxygen levels are mid 80s. Denies smoking. Work-up in the emergency room showed bilateral patchy opacities in the lungs and hypoxia-hence he was admitted for bilateral pneumonia and possible Covid pneumonia. No significant past medical history 08/11. Patient seen examined at bedside this morning. Has no complaints. Febrile this a.m.-103 Fahrenheit. On Tylenol as needed. COVID-19 test ordered. Remains on steroids. ID consult if COVID-19 is positive. 08/12. His COVID-19 test is positive. He was started on remdesivir last night. Oxygen requirement increased overnight. Inflammatory markers increasing. Repeat chest xray shows worsening infiltrates. Ordered BNP. Lasix 40mg IV ordered. Increased dexamethasone to 6mg BID. Pulmonology consulted. Will place on continuous pulse oximetry. Incentive spirometer ordered. Advised prone positioning. 08/13. Not feeling better. Seen on BIPAP. Remains on steroids, remdesivir and antibiotics. Vitals stable. 08/14. Still maintaining sats even on BiPAP. Lasix 40 mg IV ordered. D-dimer this a.m. is more than 10,000. Lovenox increased to 150 mg twice daily. Ultra sound lower extremities Doppler showed a right DVT. Echocardiogram ordered to rule out right heart strain. Pending results, patient may need vascular surgery evaluation for possible thrombectomy. Continue on BiPAP and continue to monitor respiratory status closely. 08/15. Sats better this AM. Received toculizumab yesterday. Advised him to prone as much as possible. Echo shows normal EF with no right heart strain. I/Os reviewed. He is diuresing well. Renal function is stable. Will give additional lasix today. Pulmonology following 08/16. Remains on remdesivir. Still on BIPAP. Will give lasix 20mg IV. HR is low - likley effect of remdesivir. Will continue to monitor closely 08/17. Sats in the 90's this AM. Still on BIPAP. 08/18; patient remains hypoxic requiring BiPAP and 100% nonrebreather intermittently ID pulmonary following follow the recommendations Closely monitor the patient and adjust the management as needed 08/19; Continue supportive care, wean oxygen as tolerated. Encouraged PRONE positioning if able to tolerate. 08/20:Remains on BiPAP. continue lasix, still not proninig, encouraged to prone, FIO2 down to 90% with sat of 96%. Continue care, prognosis still guarded. 08/21: Patient down on high flow. Continue to encourage proning position. Still with guarded prognosis. Elevation in WBC noted to 20 this could be secondary to steroids I will continue to monitor. No fever noted at this time. Patient's respiratory status has stabilized on the high flow with no shallow breathing noted Discussed with the nurse at bedside The high probability of a clinically significant, sudden or life threatening deterioration of the [pulmonary] system(s) required my full and direct attention, intervention and personal management. The aggregate critical care time was [35] minutes. This time is in addition to time spent performing reported procedures but includes the following: [x] Data Review and interpretation [x] Patient assessment and monitoring of vital signs [x] Documentation [x] Medication orders and management History Interval history: Patient seen and examined, remains in moderate distress, mild improvement noted today I have seen and examined the patient in IMCU this morning Patient's chart and medications reviewed . I followed strict isolation precautions PPE protocols per COVID-19 guidelines throughout Still on high flow oxygen this morning down from a BiPAP that was used overnight Hospitalist Physical - Physical exam Narrative exam: General appearance: Present: mild to moderate acute distress- on high flow oxygen 100%, well-nourished, obese (Morbidly obese) - EENT Eyes: Present: PERRL, EOM intact - Neck Neck: Present: supple, normal ROM - Respiratory Respiratory effort: normal Respiratory: bilateral: diminished, negative: rales, rhonchi, wheezing - Cardiovascular Rhythm: regular Heart Sounds: Present: S1 & S2 - Extremities Extremities: no ischemia, No edema - Abdominal General gastrointestinal: soft, non-tender, non-distended, normal bowel sounds - Integumentary Integumentary: Present: clear, warm - Psychiatric Psychiatric: appropriate mood/affect, cooperative - Neurologic Neurologic: CNII-XII intact, moves all extremities (Disease) - Constitutional Vitals: Temp Pulse Resp BP Pulse Ox 98.6 F 54 L 11 L 131/71 96 08/21/20 07:36 08/21/20 07:00 08/21/20 07:00 08/21/20 07:00 08/21/20 08:01 General appearance: Present: no acute distress, well-nourished, obese (Morbidly obese) Results - Labs CBC & Chem 7: 08/17/20 05:06 08/18/20 05:13 Labs: Laboratory Last Values WBC 20.7 K/mm3 (4.5-11.0) H 08/17/20 05:06 RBC 4.83 M/mm3 (3.65-5.03) 08/17/20 05:06 Hgb 13.9 gm/dl (11.8-15.2) 08/17/20 05:06 Hct 42.4 % (35.5-45.6) 08/17/20 05:06 MCV 88 fl (84-94) 08/17/20 05:06 MCH 29 pg (28-32) 08/17/20 05:06 MCHC 33 % (32-34) 08/17/20 05:06 RDW 13.6 % (13.2-15.2) 08/17/20 05:06 Plt Count 333 K/mm3 (140-440) 08/17/20 05:06 Lymph % (Auto) 8.2 % (13.4-35.0) L 08/16/20 05:26 [place] % (Auto) 4.7 % (0.0-7.3) 08/16/20 05:26 Eos % (Auto) 0.2 % (0.0-4.3) 08/16/20 05:26 Baso % (Auto) 0.7 % (0.0-1.8) 08/16/20 05:26 Lymph # (Auto) 1.5 K/mm3 (1.2-5.4) 08/16/20 05:26 [place] # (Auto) 0.8 K/mm3 (0.0-0.8) 08/16/20 05:26 Eos # (Auto) 0.0 K/mm3 (0.0-0.4) 08/16/20 05:26 Baso # (Auto) 0.1 K/mm3 (0.0-0.1) 08/16/20 05:26 Add Manual Diff Complete 08/17/20 05:06 Total Counted 100 08/17/20 05:06 Seg Neutrophils % 86.2 % (40.0-70.0) H 08/16/20 05:26 Seg Neuts % (Manual) 86.0 % (40.0-70.0) H 08/17/20 05:06 Lymphocytes % (Manual) 7.0 % (13.4-35.0) L 08/17/20 05:06 Monocytes % (Manual) 6.0 % (0.0-7.3) 08/17/20 05:06 Eosinophils % (Manual) 1.0 % (0.0-4.3) 08/17/20 05:06 Metamyelocytes % 2.0 % 08/15/20 05:16 Nucleated RBC % Not Reportable 08/17/20 05:06 Seg Neutrophils # 15.3 K/mm3 (1.8-7.7) H 08/16/20 05:26 Seg Neutrophils # Man 17.8 K/mm3 (1.8-7.7) H 08/17/20 05:06 Band Neutrophils # 0.0 K/mm3 08/17/20 05:06 Lymphocytes # (Manual) 1.4 K/mm3 (1.2-5.4) 08/17/20 05:06 Abs React Lymphs (Man) 0.0 K/mm3 08/17/20 05:06 Monocytes # (Manual) 1.2 K/mm3 (0.0-0.8) H 08/17/20 05:06 Eosinophils # (Manual) 0.2 K/mm3 (0.0-0.4) 08/17/20 05:06 Basophils # (Manual) 0.0 K/mm3 (0.0-0.1) 08/17/20 05:06 Metamyelocytes # 0.0 K/mm3 08/17/20 05:06 Myelocytes # 0.0 K/mm3 08/17/20 05:06 Promyelocytes # 0.0 K/mm3 08/17/20 05:06 Blast Cells # 0.0 K/mm3 08/17/20 05:06 WBC Morphology Not Reportable 08/17/20 05:06 Hypersegmented Neuts Not Reportable 08/17/20 05:06 Hyposegmented Neuts Not Reportable 08/17/20 05:06 Hypogranular Neuts Not Reportable 08/17/20 05:06 Smudge Cells Not Reportable 08/17/20 05:06 Toxic Granulation Not Reportable 08/17/20 05:06 Toxic Vacuolation Not Reportable 08/17/20 05:06 Dohle Bodies Not Reportable 08/17/20 05:06 Pelger-Huet Anomaly Not Reportable 08/17/20 05:06 Juan Luis Rods Not Reportable 08/17/20 05:06 Platelet Estimate Consistent w auto 08/17/20 05:06 Clumped Platelets Not Reportable 08/17/20 05:06 Plt Clumps, EDTA Not Reportable 08/17/20 05:06 Large Platelets Not Reportable 08/17/20 05:06 Giant Platelets Not Reportable 08/17/20 05:06 Platelet Satelliting Not Reportable 08/17/20 05:06 Plt Morphology Comment Not Reportable 08/17/20 05:06 RBC Morphology Not Reportable 08/17/20 05:06 Dimorphic RBCs Not Reportable 08/17/20 05:06 Polychromasia Not Reportable 08/17/20 05:06 Hypochromasia Not Reportable 08/17/20 05:06 Poikilocytosis Not Reportable 08/17/20 05:06 Anisocytosis Few 08/17/20 05:06 Microcytosis Not Reportable 08/17/20 05:06 Macrocytosis Not Reportable 08/17/20 05:06 Spherocytes Not Reportable 08/17/20 05:06 Pappenheimer Bodies Not Reportable 08/17/20 05:06 Sickle Cells Not Reportable 08/17/20 05:06 Target Cells Not Reportable 08/17/20 05:06 Tear Drop Cells Not Reportable 08/17/20 05:06 Ovalocytes Not Reportable 08/17/20 05:06 Helmet Cells Not Reportable 08/17/20 05:06 [place] Bodies Not Reportable 08/17/20 05:06 [place] Rings Not Reportable 08/17/20 05:06 Kurt Cells Not Reportable 08/17/20 05:06 Bite Cells Not Reportable 08/17/20 05:06 Crenated Cell Not Reportable 08/17/20 05:06 Elliptocytes Not Reportable 08/17/20 05:06 Acanthocytes (Spur) Not Reportable 08/17/20 05:06 Rouleaux Not Reportable 08/17/20 05:06 Hemoglobin C Crystals Not Reportable 08/17/20 05:06 Schistocytes Not Reportable 08/17/20 05:06 Malaria parasites Not Reportable 08/17/20 05:06 Asif Bodies Not Reportable 08/17/20 05:06 Hem Pathologist Commnt No 08/17/20 05:06 PT 12.6 Sec. (12.2-14.9) 08/10/20 08:29 INR 0.96 (0.87-1.13) 08/10/20 08:29 D-Dimer > 1000 ng/mlDDU (0-234) H 08/18/20 05:13 ABG pH 7.443 (7.320-7.450) 08/14/20 08:23 POC ABG pCO2 46.9 mmHg (32.0-48.0) 08/14/20 08:23 ABG pCO2 62.9 mm Hg 08/12/20 14:55 POC ABG pO2 50.0 mmHg (83-108) L 08/14/20 08:23 ABG pO2 65.8 mm Hg (80.0-90.0) L 08/12/20 14:55 POC ABG HCO3 31.4 08/14/20 08:23 ABG HCO3 31.4 mmol/L (20.0-26.0) H 08/12/20 14:55 ABG O2 Saturation 85.0 (0-100) 08/14/20 08:23 ABG O2 Content 24.3 (0.0-44) 08/12/20 14:55 POC ABG Base Excess 6.3 08/14/20 08:23 ABG Base Excess 2.6 mmol/L (-2.0-3.0) 08/12/20 14:55 ABG Hemoglobin 13.4 (12.0-17.5) 08/14/20 08:23 ABG Oxyhemoglobin 84.0 (94-98) L 08/14/20 08:23 ABG Carboxyhemoglobin 1.7 % (0.0-5.0) 08/12/20 14:55 ABG Methemoglobin 0.3 (0.0-1.5) 08/14/20 08:23 ABG Sodium 139.2 mmol/L (136.0-145.0) 08/14/20 08:23 ABG Potassium 4.5 mmol/L (3.40-4.50) 08/14/20 08:23 ABG Chloride 99.0 mmol/L (98-107) 08/14/20 08:23 ABG Glucose 141 mg/dL (65-95) H 08/14/20 08:23 VBG pH 7.303 (7.320-7.420) L 08/10/20 08:29 Oxyhemoglobin 89.7 % (95.0-99.0) L 08/12/20 14:55 Carboxyhemoglobin 0.9 (0.5-1.5) 08/14/20 08:23 FiO2 60 % 08/12/20 14:55 FiO2 % 100 08/14/20 08:23 Sodium 133 mmol/L (137-145) L 08/18/20 05:13 Potassium 4.9 mmol/L (3.6-5.0) 08/18/20 05:13 Chloride 94.7 mmol/L (98-107) L 08/18/20 05:13 Carbon Dioxide 27 mmol/L (22-30) 08/18/20 05:13 Anion Gap 16 mmol/L 08/18/20 05:13 BUN 33 mg/dL (9-20) H 08/18/20 05:13 Creatinine 1.0 mg/dL (0.8-1.3) 08/18/20 05:13 Estimated GFR > 60 ml/min 08/18/20 05:13 BUN/Creatinine Ratio 33 % 08/18/20 05:13 Glucose 110 mg/dL (75-100) H 08/18/20 05:13 POC Glucose 151 mg/dL (70-105) H 08/21/20 11:17 Hemoglobin A1c 6.1 % (4-6) H 08/11/20 05:39 Lactic Acid 0.80 mmol/L (0.7-2.0) 08/10/20 11:18 Calcium 9.0 mg/dL (8.4-10.2) 08/18/20 05:13 Ferritin 979.8 ng/mL (30.0-300.0) H 08/18/20 05:13 Total Bilirubin 0.50 mg/dL (0.1-1.2) 08/18/20 05:13 AST 50 units/L (5-40) H 08/18/20 05:13 ALT 50 units/L (7-56) 08/18/20 05:13 Alkaline Phosphatase 103 units/L (35-129) 08/18/20 05:13 Lactate Dehydrogenase 1150 units/L (91-180) H 08/15/20 05:16 C-Reactive Protein 1.00 mg/dL (0.00-1.30) 08/18/20 05:13 NT-Pro-B Natriuret Pep 36.40 pg/mL (0-450) 08/12/20 06:29 Total Protein 6.9 g/dL (6.3-8.2) 08/18/20 05:13 Albumin 3.7 g/dL (3.9-5) L 08/18/20 05:13 Albumin/Globulin Ratio 1.1 % 08/18/20 05:13 Procalcitonin 0.22 ng/mL (<0.15) 08/16/20 05:26 TSH 1.830 mlU/mL (0.270-4.200) 08/17/20 05:06 Free T4 1.01 ng/dL (0.76-1.46) 08/17/20 05:06 Arterial Blood Glucose 141 mg/dL (65-95) H 08/14/20 08:23 Arterial Blood Ionized Calcium 4.8 mg/dL (4.6-5.3) 08/14/20 08:23 Urine Color Yellow (Yellow) 08/10/20 Unknown Urine Turbidity Cloudy (Clear) 08/10/20 Unknown Urine pH 5.0 (5.0-7.0) 08/10/20 Unknown Ur Specific [place] 1.025 (1.003-1.030) 08/10/20 Unknown Urine Protein 30 mg/dl mg/dL (Negative) 08/10/20 Unknown Urine Glucose (UA) 150 mg/dL (Negative) 08/10/20 Unknown Urine Ketones Negative mg/dL (Negative) 08/10/20 Unknown Urine Blood Negative (Negative) 08/10/20 Unknown Urine Nitrite Negative (Negative) 08/10/20 Unknown Urine Bilirubin Negative (Negative) 08/10/20 Unknown Urine Urobilinogen < 2.0 mg/dL (<2.0) 08/10/20 Unknown Ur Leukocyte Esterase Negative (Negative) 08/10/20 Unknown Urine WBC (Auto) 5.0 /HPF (0.0-6.0) 08/10/20 Unknown Urine RBC (Auto) 2.0 /HPF (0.0-6.0) 08/10/20 Unknown U Epithel Cells (Auto) 1.0 /HPF (0-13.0) 08/10/20 Unknown Urine Bacteria (Auto) 1+ /HPF (Negative) 08/10/20 Unknown Urine Mucus 3+ /HPF 08/10/20 Unknown Coronavirus (PCR) Positive (Negative) A 08/11/20 Unknown Gaytan/IV: Voiding Method Urinal Active Medications - Current Medications Current Medications: Generic Name Dose Route Start Last Admin Trade Name Freq PRN Reason Stop Dose Admin Acetaminophen 650 mg 08/10/20 23:48 08/20/20 22:17 Acetaminophen 325 Mg Tab PO 650 mg Q4H PRN Administration Pain MILD(1-3)/Fever >100.5/MARTINEZ Artificial Tears 2 drops 08/16/20 13:44 Hypromellose 0.5% Ophth Soln 15 Ml OU Q4H PRN Dry Eye(s) Ascorbic Acid 500 mg 08/12/20 10:00 08/21/20 09:23 Ascorbic Acid 500 Mg Tab PO 500 mg BID MELANIE Administration Dexamethasone 6 mg 08/12/20 10:00 08/21/20 09:22 Dexamethasone 4 Mg/Ml Vial IV 08/21/20 22:01 6 mg Q12HR MELANIE Administration Enoxaparin Sodium 150 mg 08/14/20 10:00 08/21/20 09:22 Enoxaparin 150 Mg/1 Ml Inj SUB-Q 150 mg Q12HR MELANIE Administration Famotidine 20 mg 08/11/20 10:00 08/21/20 09:22 Famotidine 20 Mg/2 Ml Inj IV 20 mg BID MELANIE Administration Metoclopramide HCl 10 mg 08/10/20 23:48 Metoclopramide 10 Mg/2 Ml Inj IV Q6H PRN Nausea And Vomiting Morphine Sulfate 2 mg 08/10/20 23:48 Morphine 2 Mg/1 Ml Inj IV Q4H PRN Pain, Moderate (4-6) Ondansetron HCl 4 mg 08/10/20 23:48 Ondansetron 4 Mg/2 Ml Inj IV Q8H PRN Nausea And Vomiting Oxycodone/Acetaminophen 1 tab 08/10/20 23:48 Oxycodone /Acetaminophen 5-325mg Tab PO Q6H PRN Pain, Moderate (4-6) Sodium Chloride 10 ml 08/11/20 10:00 08/21/20 09:23 Sodium Chloride 0.9% 10 Ml Flush Syringe IV 10 ml BID MELANIE Administration Sodium Chloride 10 ml 08/10/20 23:48 08/12/20 21:04 Sodium Chloride 0.9% 10 Ml Flush Syringe IV 10 ml PRN PRN Administration LINE FLUSH Zinc Sulfate 220 mg 08/12/20 12:00 08/21/20 09:23 Zinc Sulfate 220 Mg Cap PO 220 mg QDAY MELANIE Administration Nutrition/Malnutrition Assess - Dietary Evaluation Nutrition/Malnutrition Findings: Nutrition Notes Start: 08/17/20 10:49 Freq: Status: Active Protocol: Document 08/17/20 10:49 [facility] (Rec: 08/17/20 11:00 [facility] [id number]) Nutrition Notes Need for Assessment generated from: LOS Initial or Follow up Assessment Other Pertinent Diagnosis COVID-19 (+), pneu, RLE DVT, sinus bradycardia Current Diet Regular Labs/Tests BUN 29 CO2 - 31 Pertinent Medications Vit C, Decadron, Zinc sulfate Height 5 ft 11 in Weight 147.5 kg [place] Body Weight (kg) 78.18 BMI 45.3 Weight Status Morbidly Obese Subjective/Other Information Pt screened for LOS. He consumed 25% of 3 meals on (no other PO intakes documented). Unable to reach pt via phone at 10:35. Pulmonary wants to try to prevent intubation, but will do so if necessary. Pt being proned as tolerated and is on BiPap support. Will order ONS , as drinking is likely easier than chewing at this time. Percent of energy/protein needs met: 28% energy 25% pro Burn Absent Trauma Absent Current % PO Poor (25-49%) Minimum of two criteria No #1 Nutrition Diagnosis Inadequate oral intake Etiology COVID-19 (+), continuous BiPap support As Evidenced by Signs and Symptoms pt consuming <50% of meals Is patient on ventilator? No Is Patient Ambulatory and/or Out of Bed No REE-([place] [facility]-confined to bed) 2955.564 Kcal/Kg value to use for calculation 14 Approximate Energy Requirements Using 2065 kcal/Kg Calculation Used for Recommendations Kcal/kg Additional Notes Pro needs 0.8-1g/kg adjBW: 90- 113g/day Fluid needs 1ml/kcal Nutrition Intervention Change Diet Order: Continue current diet as tolerated Add Supplement/Snack (indicate name/kcal Ensure High Protein BID /protein ) Provides kCal: 320 Provides Protein (gm) 32 Goal #1 PO tolerance Goal #2 PO intake of meals plus ONS to meet at least 75% energy and pro needs Anticipated Discharge Needs: Unable to identify at this time Follow-Up By: 08/21/20 Additional Comments F/U: intakes (meals, ONS), intubation vs BiPap use
--- NOTE | 2020-08-21 11:58 | Progress Note ---
Assessment and Plan 30 y/o morbidly obese male with acute respiratory failure secondary to COVID 19 pneumonia. now found to have DVT in lower ext. 08/21/20: Bipap PRN and QHS. Hold on lasix today. Continue to prone as much as tolerated. Will order PT consult. 08/18/20: Bipap pRN and QHS. More lasix today. Prone as tolerated during the day and sleep prone at night. CONtinue to try to hold off on intubation. Guarded prognosis. 08/17/20: Continue anticoagulation. Still trying to prevent intubation however will do electively if and when needed to prevent and emergent situation as patient will likely be difficult given neck and body habitus. Continue prone as tolerated. Steroids and remdesivir. 08/16/20: Anticoagulation. Prone as tolerated. Wean bipap as tolerated. Prognosis remains guarded. Trying to prevent intubation given poor outcomes associated with mechanically ventilated obese COVID patients. 08/15/20: Continue therapeutic anticoagulation. No current indication for vascular consult given no evidence of right heart strain on echo. CT would only be beneficial if we thought it would show large enough clot to warrant EKOS and with no evidence of strain, I doubt that will be the case. Continue proning as much as tolerated. Spoke with mother over the phone to update her. Patient also got actemra on yesterday as well. Prognosis remains guarded 08/14/20: Will accept sats in the mid 80's as long as mental state and work of breathing do not change. AGree with lasix therapy. Found to have large DVT on right. Spoke with [facility] and asked them to order stat echo to look for right heart strain, and if present may need to consider echos. Await echo before vascular consult. Prone if possible. Long discussion with mother on phone. Gave her a list of the meds he is on and what our current plan is. Also very candid with her and son at bedside that the mortality rate with COVID is very very high. 08/13/20: Lasix again today. Continue to alternate between HFNC with NRB and bipap. Prognosis is very very guarded. Very very guarded to poor prognosis given CXR appearance, and body habitus, along with rapid decline in self sustaning oxygen levels. Agree with lasix and increase in steroids. Must prone. Very high likelihood for mechanical ventilation which would carry a high mortality for patient. Will continue to follow. No additional IVF's unless indicated. Subjective Date of service: 08/21/20 Interval history: No acute events. Stable on HFNC. Awake and alert on the phone. Per nursing, very weak. Objective Vital Signs - 12hr 08/21/20 08/21/20 08/21/20 00:00 00:02 00:47 Temperature Pulse Rate 72 69 64 Pulse Rate [ From Monitor] Respiratory 20 40 H Rate Blood Pressure 109/82 104/68 O2 Sat by Pulse 88 92 Oximetry 08/21/20 08/21/20 08/21/20 01:00 02:00 03:00 Temperature Pulse Rate 66 68 58 L Pulse Rate [ From Monitor] Respiratory 15 12 12 Rate Blood Pressure 111/64 107/68 107/68 O2 Sat by Pulse 90 94 94 Oximetry 08/21/20 08/21/20 08/21/20 03:35 03:39 04:00 Temperature Pulse Rate 51 L 55 L Pulse Rate [ 58 L From Monitor] Respiratory 12 24 14 Rate Blood Pressure 112/57 115/67 O2 Sat by Pulse 94 93 96 Oximetry 08/21/20 08/21/20 08/21/20 04:39 05:00 06:00 Temperature Pulse Rate 58 L 59 L 56 L Pulse Rate [ From Monitor] Respiratory 12 14 Rate Blood Pressure 102/64 125/75 O2 Sat by Pulse 98 97 Oximetry 08/21/20 08/21/20 08/21/20 07:00 07:36 08:00 Temperature 98.6 F Pulse Rate 54 L 73 Pulse Rate [ From Monitor] Respiratory 11 L Rate Blood Pressure 131/71 131/71 O2 Sat by Pulse 96 98 Oximetry 08/21/20 08/21/20 08/21/20 08:01 09:30 10:00 Temperature Pulse Rate 72 Pulse Rate [ From Monitor] Respiratory 19 Rate Blood Pressure 125/70 137/84 O2 Sat by Pulse 96 97 87 Oximetry 08/21/20 11:00 Temperature Pulse Rate 74 Pulse Rate [ From Monitor] Respiratory 23 Rate Blood Pressure 134/77 O2 Sat by Pulse 92 Oximetry CBC and BMP: 08/17/20 05:06 08/18/20 05:13 ABG, PT/INR, D-dimer: ABG ABG pH 7.443 (7.320-7.450) 08/14/20 08:23 POC ABG pCO2 46.9 mmHg (32.0-48.0) 08/14/20 08:23 ABG pCO2 62.9 mm Hg 08/12/20 14:55 POC ABG pO2 50.0 mmHg (83-108) L 08/14/20 08:23 ABG pO2 65.8 mm Hg (80.0-90.0) L 08/12/20 14:55 POC ABG HCO3 31.4 08/14/20 08:23 ABG O2 Saturation 85.0 (0-100) 08/14/20 08:23 PT/INR, D-dimer PT 12.6 Sec. (12.2-14.9) 08/10/20 08:29 INR 0.96 (0.87-1.13) 08/10/20 08:29 D-Dimer > 1000 ng/mlDDU (0-234) H 08/18/20 05:13 Abnormal lab findings: Abnormal Labs 08/10/20 08/10/20 08/10/20 08:29 08:29 08:29 WBC Lymph % (Auto) Dixon % (Auto) 8.4 H Lymph # (Auto) Dixon # (Auto) Seg Neutrophils % Seg Neuts % (Manual) Lymphocytes % (Manual) Seg Neutrophils # Seg Neutrophils # Man Lymphocytes # (Manual) Monocytes # (Manual) D-Dimer ABG pH POC ABG pCO2 POC ABG pO2 ABG pO2 ABG HCO3 ABG O2 Saturation ABG Hemoglobin ABG Oxyhemoglobin ABG Potassium ABG Glucose VBG pH 7.303 L Oxyhemoglobin Sodium Potassium Chloride Carbon Dioxide BUN Glucose 132 H POC Glucose Hemoglobin A1c Ferritin AST Lactate Dehydrogenase C-Reactive Protein Albumin Arterial Blood Glucose Coronavirus (PCR) 08/11/20 08/11/20 08/11/20 05:39 05:39 05:39 WBC Lymph % (Auto) 12.5 L Dixon % (Auto) Lymph # (Auto) Dixon # (Auto) Seg Neutrophils % 84.2 H Seg Neuts % (Manual) Lymphocytes % (Manual) Seg Neutrophils # 9.1 H Seg Neutrophils # Man Lymphocytes # (Manual) Monocytes # (Manual) D-Dimer ABG pH POC ABG pCO2 POC ABG pO2 ABG pO2 ABG HCO3 ABG O2 Saturation ABG Hemoglobin ABG Oxyhemoglobin ABG Potassium ABG Glucose VBG pH Oxyhemoglobin Sodium Potassium Chloride Carbon Dioxide BUN Glucose 125 H POC Glucose Hemoglobin A1c 6.1 H Ferritin AST Lactate Dehydrogenase C-Reactive Protein Albumin Arterial Blood Glucose Coronavirus (PCR) 08/11/20 08/11/20 08/11/20 18:58 18:58 18:58 WBC Lymph % (Auto) Dixon % (Auto) Lymph # (Auto) Dixon # (Auto) Seg Neutrophils % Seg Neuts % (Manual) Lymphocytes % (Manual) Seg Neutrophils # Seg Neutrophils # Man Lymphocytes # (Manual) Monocytes # (Manual) D-Dimer 464.84 H ABG pH POC ABG pCO2 POC ABG pO2 ABG pO2 ABG HCO3 ABG O2 Saturation ABG Hemoglobin ABG Oxyhemoglobin ABG Potassium ABG Glucose VBG pH Oxyhemoglobin Sodium Potassium Chloride Carbon Dioxide BUN Glucose POC Glucose Hemoglobin A1c Ferritin 528.7 H AST Lactate Dehydrogenase 637 H C-Reactive Protein 11.30 H Albumin Arterial Blood Glucose Coronavirus (PCR) 08/11/20 08/11/20 08/12/20 19:08 Unknown 06:29 WBC 11.2 H Lymph % (Auto) 8.6 L Dixon % (Auto) Lymph # (Auto) 1.0 L Dixon # (Auto) Seg Neutrophils % 88.3 H Seg Neuts % (Manual) Lymphocytes % (Manual) Seg Neutrophils # 9.8 H Seg Neutrophils # Man Lymphocytes # (Manual) Monocytes # (Manual) D-Dimer ABG pH POC ABG pCO2 POC ABG pO2 ABG pO2 ABG HCO3 ABG O2 Saturation ABG Hemoglobin ABG Oxyhemoglobin ABG Potassium ABG Glucose VBG pH Oxyhemoglobin Sodium Potassium Chloride Carbon Dioxide BUN Glucose 161 H POC Glucose Hemoglobin A1c Ferritin AST Lactate Dehydrogenase C-Reactive Protein Albumin Arterial Blood Glucose Coronavirus (PCR) Positive A 08/12/20 08/12/20 08/12/20 06:29 06:29 06:29 WBC Lymph % (Auto) Dixon % (Auto) Lymph # (Auto) Dixon # (Auto) Seg Neutrophils % Seg Neuts % (Manual) Lymphocytes % (Manual) Seg Neutrophils # Seg Neutrophils # Man Lymphocytes # (Manual) Monocytes # (Manual) D-Dimer 830.34 H ABG pH POC ABG pCO2 POC ABG pO2 ABG pO2 ABG HCO3 ABG O2 Saturation ABG Hemoglobin ABG Oxyhemoglobin ABG Potassium ABG Glucose VBG pH Oxyhemoglobin Sodium Potassium Chloride Carbon Dioxide 31 H BUN Glucose 138 H POC Glucose Hemoglobin A1c Ferritin 572.6 H AST 42 H Lactate Dehydrogenase 706 H C-Reactive Protein 17.30 H Albumin 3.7 L Arterial Blood Glucose Coronavirus (PCR) 08/12/20 08/12/20 08/12/20 13:21 14:55 21:59 WBC Lymph % (Auto) Dixon % (Auto) Lymph # (Auto) Dixon # (Auto) Seg Neutrophils % Seg Neuts % (Manual) Lymphocytes % (Manual) Seg Neutrophils # Seg Neutrophils # Man Lymphocytes # (Manual) Monocytes # (Manual) D-Dimer ABG pH 7.315 L POC ABG pCO2 57.1 H POC ABG pO2 47.8 L ABG pO2 65.8 L ABG HCO3 31.4 H ABG O2 Saturation 91.7 L ABG Hemoglobin 19.3 H ABG Oxyhemoglobin ABG Potassium 4.9 H ABG Glucose 182 H VBG pH Oxyhemoglobin 89.7 L Sodium Potassium Chloride Carbon Dioxide BUN Glucose POC Glucose 142 H Hemoglobin A1c Ferritin AST Lactate Dehydrogenase C-Reactive Protein Albumin Arterial Blood Glucose 182 H Coronavirus (PCR) 08/13/20 08/13/20 08/13/20 05:35 05:35 12:11 WBC 12.0 H Lymph % (Auto) 8.1 L Dixon % (Auto) Lymph # (Auto) 1.0 L Dixon # (Auto) Seg Neutrophils % 88.0 H Seg Neuts % (Manual) Lymphocytes % (Manual) Seg Neutrophils # 10.5 H Seg Neutrophils # Man Lymphocytes # (Manual) Monocytes # (Manual) D-Dimer ABG pH POC ABG pCO2 POC ABG pO2 ABG pO2 ABG HCO3 ABG O2 Saturation ABG Hemoglobin ABG Oxyhemoglobin ABG Potassium ABG Glucose VBG pH Oxyhemoglobin Sodium Potassium 5.1 H Chloride Carbon Dioxide 31 H BUN 25 H Glucose 174 H POC Glucose 154 H Hemoglobin A1c Ferritin AST 41 H Lactate Dehydrogenase 996 H C-Reactive Protein Albumin 3.8 L Arterial Blood Glucose Coronavirus (PCR) 08/13/20 08/13/20 08/14/20 16:18 23:24 05:21 WBC 14.2 H Lymph % (Auto) 8.2 L Dixon % (Auto) Lymph # (Auto) Dixon # (Auto) 0.9 H Seg Neutrophils % 85.4 H Seg Neuts % (Manual) Lymphocytes % (Manual) Seg Neutrophils # 12.2 H Seg Neutrophils # Man Lymphocytes # (Manual) Monocytes # (Manual) D-Dimer ABG pH POC ABG pCO2 POC ABG pO2 ABG pO2 ABG HCO3 ABG O2 Saturation ABG Hemoglobin ABG Oxyhemoglobin ABG Potassium ABG Glucose VBG pH Oxyhemoglobin Sodium Potassium Chloride Carbon Dioxide BUN Glucose POC Glucose 188 H 127 H Hemoglobin A1c Ferritin AST Lactate Dehydrogenase C-Reactive Protein Albumin Arterial Blood Glucose Coronavirus (PCR) 08/14/20 08/14/20 08/14/20 05:21 05:21 05:21 WBC Lymph % (Auto) Dixon % (Auto) Lymph # (Auto) Dixon # (Auto) Seg Neutrophils % Seg Neuts % (Manual) Lymphocytes % (Manual) Seg Neutrophils # Seg Neutrophils # Man Lymphocytes # (Manual) Monocytes # (Manual) D-Dimer > 21645 H ABG pH POC ABG pCO2 POC ABG pO2 ABG pO2 ABG HCO3 ABG O2 Saturation ABG Hemoglobin ABG Oxyhemoglobin ABG Potassium ABG Glucose VBG pH Oxyhemoglobin Sodium Potassium Chloride Carbon Dioxide 32 H 33 H BUN 26 H 26 H Glucose 152 H 156 H POC Glucose Hemoglobin A1c Ferritin AST 53 H 54 H Lactate Dehydrogenase 1249 H C-Reactive Protein 9.90 H Albumin 3.7 L 3.7 L Arterial Blood Glucose Coronavirus (PCR) 08/14/20 08/14/20 08/14/20 05:21 05:58 08:23 WBC Lymph % (Auto) Dixon % (Auto) Lymph # (Auto) Dixon # (Auto) Seg Neutrophils % Seg Neuts % (Manual) Lymphocytes % (Manual) Seg Neutrophils # Seg Neutrophils # Man Lymphocytes # (Manual) Monocytes # (Manual) D-Dimer ABG pH POC ABG pCO2 POC ABG pO2 50.0 L ABG pO2 ABG HCO3 ABG O2 Saturation ABG Hemoglobin ABG Oxyhemoglobin 84.0 L ABG Potassium ABG Glucose 141 H VBG pH Oxyhemoglobin Sodium Potassium Chloride Carbon Dioxide BUN Glucose POC Glucose 139 H Hemoglobin A1c Ferritin 1198.0 H AST Lactate Dehydrogenase C-Reactive Protein Albumin Arterial Blood Glucose 141 H Coronavirus (PCR) 08/15/20 08/15/20 08/16/20 05:16 05:16 05:26 WBC 13.7 H 17.7 H Lymph % (Auto) 8.2 L Dixon % (Auto) Lymph # (Auto) Dixon # (Auto) Seg Neutrophils % 86.2 H Seg Neuts % (Manual) 91.0 H 88.0 H Lymphocytes % (Manual) 7.0 L 9.0 L Seg Neutrophils # 15.3 H Seg Neutrophils # Man 12.5 H 15.6 H Lymphocytes # (Manual) 1.0 L Monocytes # (Manual) D-Dimer ABG pH POC ABG pCO2 POC ABG pO2 ABG pO2 ABG HCO3 ABG O2 Saturation ABG Hemoglobin ABG Oxyhemoglobin ABG Potassium ABG Glucose VBG pH Oxyhemoglobin Sodium Potassium Chloride Carbon Dioxide 32 H BUN 29 H Glucose 150 H POC Glucose Hemoglobin A1c Ferritin AST Lactate Dehydrogenase 1150 H C-Reactive Protein Albumin 3.5 L Arterial Blood Glucose Coronavirus (PCR) 08/16/20 08/16/20 08/16/20 05:26 05:26 05:26 WBC Lymph % (Auto) Dixon % (Auto) Lymph # (Auto) Dixon # (Auto) Seg Neutrophils % Seg Neuts % (Manual) Lymphocytes % (Manual) Seg Neutrophils # Seg Neutrophils # Man Lymphocytes # (Manual) Monocytes # (Manual) D-Dimer > 29836 H ABG pH POC ABG pCO2 POC ABG pO2 ABG pO2 ABG HCO3 ABG O2 Saturation ABG Hemoglobin ABG Oxyhemoglobin ABG Potassium ABG Glucose VBG pH Oxyhemoglobin Sodium Potassium 5.2 H Chloride Carbon Dioxide BUN 25 H Glucose 163 H POC Glucose Hemoglobin A1c Ferritin 1013.0 H AST Lactate Dehydrogenase C-Reactive Protein 4.00 H Albumin 3.6 L Arterial Blood Glucose Coronavirus (PCR) 08/17/20 08/17/20 08/17/20 05:06 05:06 07:51 WBC 20.7 H Lymph % (Auto) Dixon % (Auto) Lymph # (Auto) Dixon # (Auto) Seg Neutrophils % Seg Neuts % (Manual) 86.0 H Lymphocytes % (Manual) 7.0 L Seg Neutrophils # Seg Neutrophils # Man 17.8 H Lymphocytes # (Manual) Monocytes # (Manual) 1.2 H D-Dimer ABG pH POC ABG pCO2 POC ABG pO2 ABG pO2 ABG HCO3 ABG O2 Saturation ABG Hemoglobin ABG Oxyhemoglobin ABG Potassium ABG Glucose VBG pH Oxyhemoglobin Sodium Potassium Chloride 96.5 L Carbon Dioxide 31 H BUN 29 H Glucose 121 H POC Glucose 110 H Hemoglobin A1c Ferritin AST 46 H Lactate Dehydrogenase C-Reactive Protein Albumin 3.7 L Arterial Blood Glucose Coronavirus (PCR) 08/17/20 08/17/20 08/18/20 11:42 21:45 05:13 WBC Lymph % (Auto) Dixon % (Auto) Lymph # (Auto) Dixon # (Auto) Seg Neutrophils % Seg Neuts % (Manual) Lymphocytes % (Manual) Seg Neutrophils # Seg Neutrophils # Man Lymphocytes # (Manual) Monocytes # (Manual) D-Dimer > 1000 H ABG pH POC ABG pCO2 POC ABG pO2 ABG pO2 ABG HCO3 ABG O2 Saturation ABG Hemoglobin ABG Oxyhemoglobin ABG Potassium ABG Glucose VBG pH Oxyhemoglobin Sodium Potassium Chloride Carbon Dioxide BUN Glucose POC Glucose 122 H 143 H Hemoglobin A1c Ferritin AST Lactate Dehydrogenase C-Reactive Protein Albumin Arterial Blood Glucose Coronavirus (PCR) 08/18/20 08/18/20 08/21/20 05:13 05:13 11:17 WBC Lymph % (Auto) Dixon % (Auto) Lymph # (Auto) Dixon # (Auto) Seg Neutrophils % Seg Neuts % (Manual) Lymphocytes % (Manual) Seg Neutrophils # Seg Neutrophils # Man Lymphocytes # (Manual) Monocytes # (Manual) D-Dimer ABG pH POC ABG pCO2 POC ABG pO2 ABG pO2 ABG HCO3 ABG O2 Saturation ABG Hemoglobin ABG Oxyhemoglobin ABG Potassium ABG Glucose VBG pH Oxyhemoglobin Sodium 133 L Potassium Chloride 94.7 L Carbon Dioxide BUN 33 H Glucose 110 H POC Glucose 151 H Hemoglobin A1c Ferritin 979.8 H AST 50 H Lactate Dehydrogenase C-Reactive Protein Albumin 3.7 L Arterial Blood Glucose Coronavirus (PCR)
--- NOTE | 2020-08-21 12:46 | Progress Note ---
Assessment and Plan Cultures: Blood culture 08/10/2020 no growth SARS CoV2 PCR positive 08/10/2020 urine culture: No growth Assessment: 30 years old male with history of morbid obesity, admitted on 08/10/2020 secondary to 3-day history of intermittent frontal headache: #Leukocytosis: worsening likely due to steroids #Severe COVID19 pneumonia: On steroids, completed remdesivir. S/P actemra on 08/14/2020. Completed empiric abx course. Procal is low, additional abx not needed. #Acute hypoxemic respiratory failure: severe, on BiPAP/NRB #Acute right leg DVT, very high d-dimer. On anticoagulation. #LONNY: Resolved #Morbid obesity: Associated with worse outcomes Recommendations: -Monitor WBC, recheck procal -Continue dexamethasone for 10 days -S/P remdesivir, actemra -Monitor inflammatory markers - ferritin, Ddimer, CRP, LDH, ordered -continue anticoagulation for DVT -prone positioning whenever possible -pulm note reviewed Guarded prognosis Jaylyn Doe MD Infectious Diseases [employer] [facility] ([facility]) M [phone] O [phone] Subjective Date of service: 08/21/20 Principal diagnosis: COVID Interval history: Remains on HFNC 100%, 40L no fever Objective - Exam Narrative Exam: Physical exam deferred to minimize COVID-19 transmission during pandemic. . - Constitutional Vitals: Vital Signs Temp Pulse Resp BP Pulse Ox 98.6 F 70 17 145/87 91 08/21/20 07:36 08/21/20 12:00 08/21/20 12:00 08/21/20 12:00 08/21/20 12:00 Temperature -Last 24 Hours Temperature 98.6 F Temperature 98.4 F - Labs CBC & Chem 7: 08/17/20 05:06 08/18/20 05:13 Labs: Abnormal lab results 08/21/20 Range/Units 11:17 POC Glucose 151 H (70-105) mg/dL
[2020-08-22 06:03] LABS: Hematocrit 41.9 % (35.5-45.6); Hemoglobin 13.8 gm/dl (11.8-15.2); Mean Corpuscular HGB Conc 33 % (32-34); Mean Corpuscular Volume 88 fl (84-94); Platelet Count 371 K/mm3 (140-440); Red Blood Count 4.79 M/mm3 (3.65-5.03); Red Cell Distribution Width 13.7 % (13.2-15.2)
[2020-08-22 06:09] LABS: Blood Urea Nitrogen 24 mg/dL (9-20); Calcium 9.1 mg/dL (8.4-10.2); Hemolysis Index 5
[2020-08-22 06:10] LABS: BUN/Creatinine Ratio 34
--- NOTE | 2020-08-22 09:08 | Progress Note ---
Assessment and Plan Assessment and plan: --Acute hypoxic respiratory failure secondary to COVID-19 PNA Patient is on high flow oxygen 40/100/90 intermittent BiPAP Home O2 evaluation at discharge --COVID-19 Pneumonia Continue antibiotics Continue steroids total 10 days s/p Remdesivir s/p tocilizumab Oxygen supplementation with BiPAP Trend inflammatory markers Prone positioning strongly advised ID and pulmonology following --Right lower extremity DVT D-dimer more than 10,000 US shows RLE DVT. Echocardiogram shows no right heart strain. DC Lovenox, transition to Eliquis --Sinus bradycardia Likely from remdesivir Heart rate in 60s and 70s today TSH wnl --Morbid obesity Diet and exercise advised Patient needs outpatient bariatric surgical/medical weight reduction consult when medically stable --DVT prophylaxis-Lovenox Brief history 30-year-old male with morbid obesity weighing about 310 pounds comes in for intermittent frontal headache for 3 days. In the emergency room patient was very hypoxic but denies shortness of breath or cough. No muscle aches. His oxygen levels are mid 80s. Denies smoking. Work-up in the emergency room showed bilateral patchy opacities in the lungs and hypoxia-hence he was admitted for bilateral pneumonia and possible Covid pneumonia. No significant past medical history 08/11. Patient seen examined at bedside this morning. Has no complaints. Febrile this a.m.-103 Fahrenheit. On Tylenol as needed. COVID-19 test ordered. Remains on steroids. ID consult if COVID-19 is positive. 08/12. His COVID-19 test is positive. He was started on remdesivir last night. Oxygen requirement increased overnight. Inflammatory markers increasing. Repeat chest xray shows worsening infiltrates. Ordered BNP. Lasix 40mg IV ordered. Increased dexamethasone to 6mg BID. Pulmonology consulted. Will place on continuous pulse oximetry. Incentive spirometer ordered. Advised prone positioning. 08/13. Not feeling better. Seen on BIPAP. Remains on steroids, remdesivir and antibiotics. Vitals stable. 08/14. Still maintaining sats even on BiPAP. Lasix 40 mg IV ordered. D-dimer this a.m. is more than 10,000. Lovenox increased to 150 mg twice daily. Ultrasound lower extremities Doppler showed a right DVT. Echocardiogram ordered to rule out right heart strain. Pending results, patient may need vascular surgery evaluation for possible thrombectomy. Continue on BiPAP and continue to monitor respiratory status closely. 08/15. Sats better this AM. Received toculizumab yesterday. Advised him to prone as much as possible. Echo shows normal EF with no right heart strain. I/Os reviewed. He is diuresing well. Renal function is stable. Will give additional lasix today. Pulmonology following 08/16. Remains on remdesivir. Still on BIPAP. Will give lasix 20mg IV. HR is low - likley effect of remdesivir. Will continue to monitor closely 08/17. Sats in the 90's this AM. Still on BIPAP. 08/18; patient remains hypoxic requiring BiPAP and 100% nonrebreather intermittently ID pulmonary following follow the recommendations Closely monitor the patient and adjust the management as needed 08/19; Continue supportive care, wean oxygen as tolerated. Encouraged PRONE positioning if able to tolerate. 08/20:Remains on BiPAP. continue lasix, still not proninig, encouraged to prone, FIO2 down to 90% with sat of 96%. Continue care, prognosis still guarded. 08/21: Patient down on high flow. Continue to encourage proning position. Still with guarded prognosis. Elevation in WBC noted to 20 this could be secondary to steroids I will continue to monitor. No fever noted at this time. Patient's respiratory status has stabilized on the high flow with no shallow breathing noted Discussed with the nurse at bedside 08/22; DC Lovenox therapeutic dose, start Eliquis per protocol to treat lower extremity DVT. The high probability of a clinically significant, sudden or life threatening deterioration of the [pulmonary] system(s) required my full and direct attention, intervention and personal management. The aggregate critical care time was [35] minutes. This time is in addition to time spent performing reported procedures but includes the following: [x] Data Review and interpretation [x] Patient assessment and monitoring of vital signs [x] Documentation [x] Medication orders and management History Interval history: Seen and examined the patient in IMCU I have followed strict isolation precautions PPE protocols per COVID-19 guidelines Throughout my interaction and evaluation of the patient in his room Patient feels slightly better mild shortness of breath Patient is hypoxemic requiring high flow oxygen Titrate as tolerated Vital signs reviewed patient in mild distress Hospitalist Physical - Constitutional Vitals: Temp Pulse Resp BP Pulse Ox 98.9 F 54 L 17 129/72 95 08/22/20 08:00 08/22/20 06:46 08/22/20 06:46 08/22/20 06:46 08/22/20 08:06 General appearance: Present: no acute distress, well-nourished, obese (Morbidly obese) - EENT Eyes: Present: PERRL, EOM intact - Neck Neck: Present: supple, normal ROM - Respiratory Respiratory effort: normal Respiratory: bilateral: diminished, rhonchi, negative: rales, wheezing - Cardiovascular Rhythm: regular Heart Sounds: Present: S1 & S2 - Extremities Extremities: no ischemia, No edema - Abdominal General gastrointestinal: soft, non-tender, non-distended, normal bowel sounds - Integumentary Integumentary: Present: clear, warm - Psychiatric Psychiatric: appropriate mood/affect, cooperative - Neurologic Neurologic: CNII-XII intact, moves all extremities Results - Labs CBC & Chem 7: 08/22/20 05:23 08/22/20 05:23 Labs: Laboratory Last Values WBC 24.7 K/mm3 (4.5-11.0) H 08/22/20 05:23 RBC 4.79 M/mm3 (3.65-5.03) 08/22/20 05:23 Hgb 13.8 gm/dl (11.8-15.2) 08/22/20 05:23 Hct 41.9 % (35.5-45.6) 08/22/20 05:23 MCV 88 fl (84-94) 08/22/20 05:23 MCH 29 pg (28-32) 08/22/20 05:23 MCHC 33 % (32-34) 08/22/20 05:23 RDW 13.7 % (13.2-15.2) 08/22/20 05:23 Plt Count 371 K/mm3 (140-440) 08/22/20 05:23 Lymph % (Auto) 8.2 % (13.4-35.0) L 08/16/20 05:26 [place] % (Auto) 4.7 % (0.0-7.3) 08/16/20 05:26 Eos % (Auto) 0.2 % (0.0-4.3) 08/16/20 05:26 Baso % (Auto) 0.7 % (0.0-1.8) 08/16/20 05:26 Lymph # (Auto) 1.5 K/mm3 (1.2-5.4) 08/16/20 05:26 [place] # (Auto) 0.8 K/mm3 (0.0-0.8) 08/16/20 05:26 Eos # (Auto) 0.0 K/mm3 (0.0-0.4) 08/16/20 05:26 Baso # (Auto) 0.1 K/mm3 (0.0-0.1) 08/16/20 05:26 Add Manual Diff Complete 08/17/20 05:06 Total Counted 100 08/17/20 05:06 Seg Neutrophils % 86.2 % (40.0-70.0) H 08/16/20 05:26 Seg Neuts % (Manual) 86.0 % (40.0-70.0) H 08/17/20 05:06 Lymphocytes % (Manual) 7.0 % (13.4-35.0) L 08/17/20 05:06 Monocytes % (Manual) 6.0 % (0.0-7.3) 08/17/20 05:06 Eosinophils % (Manual) 1.0 % (0.0-4.3) 08/17/20 05:06 Metamyelocytes % 2.0 % 08/15/20 05:16 Nucleated RBC % Not Reportable 08/17/20 05:06 Seg Neutrophils # 15.3 K/mm3 (1.8-7.7) H 08/16/20 05:26 Seg Neutrophils # Man 17.8 K/mm3 (1.8-7.7) H 08/17/20 05:06 Band Neutrophils # 0.0 K/mm3 08/17/20 05:06 Lymphocytes # (Manual) 1.4 K/mm3 (1.2-5.4) 08/17/20 05:06 Abs React Lymphs (Man) 0.0 K/mm3 08/17/20 05:06 Monocytes # (Manual) 1.2 K/mm3 (0.0-0.8) H 08/17/20 05:06 Eosinophils # (Manual) 0.2 K/mm3 (0.0-0.4) 08/17/20 05:06 Basophils # (Manual) 0.0 K/mm3 (0.0-0.1) 08/17/20 05:06 Metamyelocytes # 0.0 K/mm3 08/17/20 05:06 Myelocytes # 0.0 K/mm3 08/17/20 05:06 Promyelocytes # 0.0 K/mm3 08/17/20 05:06 Blast Cells # 0.0 K/mm3 08/17/20 05:06 WBC Morphology Not Reportable 08/17/20 05:06 Hypersegmented Neuts Not Reportable 08/17/20 05:06 Hyposegmented Neuts Not Reportable 08/17/20 05:06 Hypogranular Neuts Not Reportable 08/17/20 05:06 Smudge Cells Not Reportable 08/17/20 05:06 Toxic Granulation Not Reportable 08/17/20 05:06 Toxic Vacuolation Not Reportable 08/17/20 05:06 Dohle Bodies Not Reportable 08/17/20 05:06 Pelger-Huet Anomaly Not Reportable 08/17/20 05:06 Juan Luis Rods Not Reportable 08/17/20 05:06 Platelet Estimate Consistent w auto 08/17/20 05:06 Clumped Platelets Not Reportable 08/17/20 05:06 Plt Clumps, EDTA Not Reportable 08/17/20 05:06 Large Platelets Not Reportable 08/17/20 05:06 Giant Platelets Not Reportable 08/17/20 05:06 Platelet Satelliting Not Reportable 08/17/20 05:06 Plt Morphology Comment Not Reportable 08/17/20 05:06 RBC Morphology Not Reportable 08/17/20 05:06 Dimorphic RBCs Not Reportable 08/17/20 05:06 Polychromasia Not Reportable 08/17/20 05:06 Hypochromasia Not Reportable 08/17/20 05:06 Poikilocytosis Not Reportable 08/17/20 05:06 Anisocytosis Few 08/17/20 05:06 Microcytosis Not Reportable 08/17/20 05:06 Macrocytosis Not Reportable 08/17/20 05:06 Spherocytes Not Reportable 08/17/20 05:06 Pappenheimer Bodies Not Reportable 08/17/20 05:06 Sickle Cells Not Reportable 08/17/20 05:06 Target Cells Not Reportable 08/17/20 05:06 Tear Drop Cells Not Reportable 08/17/20 05:06 Ovalocytes Not Reportable 08/17/20 05:06 Helmet Cells Not Reportable 08/17/20 05:06 [place] Bodies Not Reportable 08/17/20 05:06 [place] Rings Not Reportable 08/17/20 05:06 [place] Cells Not Reportable 08/17/20 05:06 Bite Cells Not Reportable 08/17/20 05:06 Crenated Cell Not Reportable 08/17/20 05:06 Elliptocytes Not Reportable 08/17/20 05:06 Acanthocytes (Spur) Not Reportable 08/17/20 05:06 Rouleaux Not Reportable 08/17/20 05:06 Hemoglobin C Crystals Not Reportable 08/17/20 05:06 Schistocytes Not Reportable 08/17/20 05:06 Malaria parasites Not Reportable 08/17/20 05:06 Asif Bodies Not Reportable 08/17/20 05:06 Hem Pathologist Commnt No 08/17/20 05:06 PT 12.6 Sec. (12.2-14.9) 08/10/20 08:29 INR 0.96 (0.87-1.13) 08/10/20 08:29 D-Dimer 6731.66 ng/mlDDU (0-234) H 08/21/20 15:55 ABG pH 7.443 (7.320-7.450) 08/14/20 08:23 POC ABG pCO2 46.9 mmHg (32.0-48.0) 08/14/20 08:23 ABG pCO2 62.9 mm Hg 08/12/20 14:55 POC ABG pO2 50.0 mmHg (83-108) L 08/14/20 08:23 ABG pO2 65.8 mm Hg (80.0-90.0) L 08/12/20 14:55 POC ABG HCO3 31.4 08/14/20 08:23 ABG HCO3 31.4 mmol/L (20.0-26.0) H 08/12/20 14:55 ABG O2 Saturation 85.0 (0-100) 08/14/20 08:23 ABG O2 Content 24.3 (0.0-44) 08/12/20 14:55 POC ABG Base Excess 6.3 08/14/20 08:23 ABG Base Excess 2.6 mmol/L (-2.0-3.0) 08/12/20 14:55 ABG Hemoglobin 13.4 (12.0-17.5) 08/14/20 08:23 ABG Oxyhemoglobin 84.0 (94-98) L 08/14/20 08:23 ABG Carboxyhemoglobin 1.7 % (0.0-5.0) 08/12/20 14:55 ABG Methemoglobin 0.3 (0.0-1.5) 08/14/20 08:23 ABG Sodium 139.2 mmol/L (136.0-145.0) 08/14/20 08:23 ABG Potassium 4.5 mmol/L (3.40-4.50) 08/14/20 08:23 ABG Chloride 99.0 mmol/L (98-107) 08/14/20 08:23 ABG Glucose 141 mg/dL (65-95) H 08/14/20 08:23 VBG pH 7.303 (7.320-7.420) L 08/10/20 08:29 Oxyhemoglobin 89.7 % (95.0-99.0) L 08/12/20 14:55 Carboxyhemoglobin 0.9 (0.5-1.5) 08/14/20 08:23 FiO2 60 % 08/12/20 14:55 FiO2 % 100 08/14/20 08:23 Sodium 136 mmol/L (137-145) L 08/22/20 05:23 Potassium 5.0 mmol/L (3.6-5.0) 08/22/20 05:23 Chloride 96.3 mmol/L (98-107) L 08/22/20 05:23 Carbon Dioxide 28 mmol/L (22-30) 08/22/20 05:23 Anion Gap 17 mmol/L 08/22/20 05:23 BUN 24 mg/dL (9-20) H 08/22/20 05:23 Creatinine 0.7 mg/dL (0.8-1.3) L 08/22/20 05:23 Estimated GFR > 60 ml/min 08/22/20 05:23 BUN/Creatinine Ratio 34 % 08/22/20 05:23 Glucose 115 mg/dL (75-100) H 08/22/20 05:23 POC Glucose 151 mg/dL (70-105) H 08/21/20 11:17 Hemoglobin A1c 6.1 % (4-6) H 08/11/20 05:39 Lactic Acid 0.80 mmol/L (0.7-2.0) 08/10/20 11:18 Calcium 9.1 mg/dL (8.4-10.2) 08/22/20 05:23 Ferritin 1019.0 ng/mL (30.0-300.0) H 08/21/20 13:39 Total Bilirubin 0.50 mg/dL (0.1-1.2) 08/18/20 05:13 AST 50 units/L (5-40) H 08/18/20 05:13 ALT 50 units/L (7-56) 08/18/20 05:13 Alkaline Phosphatase 103 units/L (35-129) 08/18/20 05:13 Lactate Dehydrogenase 1251 units/L (91-180) H 08/21/20 13:39 C-Reactive Protein 0.30 mg/dL (0.00-1.30) 08/21/20 13:39 NT-Pro-B Natriuret Pep 36.40 pg/mL (0-450) 08/12/20 06:29 Total Protein 6.9 g/dL (6.3-8.2) 08/18/20 05:13 Albumin 3.7 g/dL (3.9-5) L 08/18/20 05:13 Albumin/Globulin Ratio 1.1 % 08/18/20 05:13 Procalcitonin 0.08 ng/mL (<0.15) 08/21/20 13:39 TSH 1.830 mlU/mL (0.270-4.200) 08/17/20 05:06 Free T4 1.01 ng/dL (0.76-1.46) 08/17/20 05:06 Arterial Blood Glucose 141 mg/dL (65-95) H 08/14/20 08:23 Arterial Blood Ionized Calcium 4.8 mg/dL (4.6-5.3) 08/14/20 08:23 Urine Color Yellow (Yellow) 08/10/20 Unknown Urine Turbidity Cloudy (Clear) 08/10/20 Unknown Urine pH 5.0 (5.0-7.0) 08/10/20 Unknown Ur Specific [place] 1.025 (1.003-1.030) 08/10/20 Unknown Urine Protein 30 mg/dl mg/dL (Negative) 08/10/20 Unknown Urine Glucose (UA) 150 mg/dL (Negative) 08/10/20 Unknown Urine Ketones Negative mg/dL (Negative) 08/10/20 Unknown Urine Blood Negative (Negative) 08/10/20 Unknown Urine Nitrite Negative (Negative) 08/10/20 Unknown Urine Bilirubin Negative (Negative) 08/10/20 Unknown Urine Urobilinogen < 2.0 mg/dL (<2.0) 08/10/20 Unknown Ur Leukocyte Esterase Negative (Negative) 08/10/20 Unknown Urine WBC (Auto) 5.0 /HPF (0.0-6.0) 08/10/20 Unknown Urine RBC (Auto) 2.0 /HPF (0.0-6.0) 08/10/20 Unknown U Epithel Cells (Auto) 1.0 /HPF (0-13.0) 08/10/20 Unknown Urine Bacteria (Auto) 1+ /HPF (Negative) 08/10/20 Unknown Urine Mucus 3+ /HPF 08/10/20 Unknown Coronavirus (PCR) Positive (Negative) A 08/11/20 Unknown Gaytan/IV: Voiding Method Urinal Active Medications - Current Medications Current Medications: Generic Name Dose Route Start Last Admin Trade Name Freq PRN Reason Stop Dose Admin Acetaminophen 650 mg 08/10/20 23:48 08/20/20 22:17 Acetaminophen 325 Mg Tab PO 650 mg Q4H PRN Administration Pain MILD(1-3)/Fever >100.5/MARTINEZ Artificial Tears 2 drops 08/16/20 13:44 Hypromellose 0.5% Ophth Soln 15 Ml OU Q4H PRN Dry Eye(s) Ascorbic Acid 500 mg 08/12/20 10:00 08/21/20 21:42 Ascorbic Acid 500 Mg Tab PO 500 mg BID MELANIE Administration Enoxaparin Sodium 150 mg 08/14/20 10:00 08/21/20 21:41 Enoxaparin 150 Mg/1 Ml Inj SUB-Q 150 mg Q12HR MELANIE Administration Famotidine 20 mg 08/11/20 10:00 08/21/20 21:41 Famotidine 20 Mg/2 Ml Inj IV 20 mg BID MELANIE Administration Metoclopramide HCl 10 mg 08/10/20 23:48 Metoclopramide 10 Mg/2 Ml Inj IV Q6H PRN Nausea And Vomiting Morphine Sulfate 2 mg 08/10/20 23:48 Morphine 2 Mg/1 Ml Inj IV Q4H PRN Pain, Moderate (4-6) Ondansetron HCl 4 mg 08/10/20 23:48 Ondansetron 4 Mg/2 Ml Inj IV Q8H PRN Nausea And Vomiting Oxycodone/Acetaminophen 1 tab 08/10/20 23:48 Oxycodone /Acetaminophen 5-325mg Tab PO Q6H PRN Pain, Moderate (4-6) Sodium Chloride 10 ml 08/11/20 10:00 08/21/20 09:23 Sodium Chloride 0.9% 10 Ml Flush Syringe IV 10 ml BID MELANIE Administration Sodium Chloride 10 ml 08/10/20 23:48 08/12/20 21:04 Sodium Chloride 0.9% 10 Ml Flush Syringe IV 10 ml PRN PRN Administration LINE FLUSH Zinc Sulfate 220 mg 08/12/20 12:00 08/21/20 09:23 Zinc Sulfate 220 Mg Cap PO 220 mg QDAY MELANIE Administration Nutrition/Malnutrition Assess - Dietary Evaluation Nutrition/Malnutrition Findings: Nutrition Notes Start: 08/17/20 10:49 Freq: Status: Active Protocol: Document 08/21/20 14:53 CW (Rec: 08/21/20 14:58 CW [id number]) Nutrition Notes Initial or Follow up Reassessment Other Pertinent Diagnosis COVID-19 (+), pneu, RLE DVT, sinus bradycardia Current Diet Regular Labs/Tests No new labs Pertinent Medications Decadron Height 5 ft 11 in Weight 146.5 kg [place] Body Weight (kg) 78.18 BMI 45.0 Weight Status Morbidly Obese Subjective/Other Information F/U for intakes and intubation . Pt remains un-intubated. PO intake is improving. Pt ate 100% nof breakfast and ONS. Percent of energy/protein needs met: 45%/51% (breakfast+ 1 ONS) Burn Absent Trauma Absent Current % PO Fair (50-74%) Minimum of two criteria No #1 Nutrition Diagnosis Inadequate oral intake As Evidenced by Signs and Symptoms Pt consuming 100% of ONS and 100% of breakfast Diagnosis Progress(for reassessment Improved documentation) Is patient on ventilator? No Is Patient Ambulatory and/or Out of Bed No [facility] 2943.576 Kcal/Kg value to use for calculation 14 Approximate Energy Requirements Using 2050 kcal/Kg Calculation Used for Recommendations Kcal/kg Additional Notes Pro needs 0.8-1g/kg adjBW: 90- 113g/day Fluid needs 1ml/kcal Nutrition Intervention Change Diet Order: Continue current diet as tolerated Add Supplement/Snack (indicate name/kcal Ensure High Protein BID /protein ) Provides kCal: 320 Provides Protein (gm) 32 Goal #1 PO tolerance Goal #2 PO intake of meals plus ONS to meet at least 75% energy and pro needs Anticipated Discharge Needs: Unable to identify at this time Follow-Up By: 08/23/20 Additional Comments F/U for intakes
[2020-08-22] MEDS: ENOXAPARIN 150 MG/1 ML INJ SUB-Q SCH (10:00)
[2020-08-22] MEDS: ASCORBIC ACID 500 MG TAB PO SCH ×2 (10:00→22:41)
[2020-08-22] MEDS: FAMOTIDINE 20 MG/2 ML INJ IV SCH ×2 (10:00→22:41)
[2020-08-22] MEDS: ZINC SULFATE 220 MG CAP PO SCH (10:00)
--- NOTE | 2020-08-22 10:01 | Progress Note ---
Assessment and Plan Cultures: Blood culture 08/10/2020 no growth SARS CoV2 PCR positive 08/10/2020 urine culture: No growth Assessment: 30 years old male with history of morbid obesity, admitted on 08/10/2020 secondary to 3-day history of intermittent frontal headache: #Leukocytosis: worsening likely due to steroids, repeat procalcitonin level is low #Severe COVID19 pneumonia: On steroids, completed remdesivir. S/P actemra on 08/14/2020. Completed empiric abx course. Procal is low, additional abx not needed. #Acute hypoxemic respiratory failure: severe, on HFNC/BIPAP #Acute right leg DVT, very high d-dimer. On anticoagulation. #LONNY: Resolved #Morbid obesity: Associated with worse outcomes Recommendations: -Continue dexamethasone for 10 days -S/P remdesivir, actemra -Monitor inflammatory markers - ferritin, Ddimer, CRP, LDH, ordered -continue anticoagulation for DVT -prone positioning whenever possible Guarded prognosis, close monitoring Jaylyn Doe MD Infectious Diseases Manager [employer] [facility] ([facility]) M [phone] O [phone] Subjective Date of service: 08/22/20 Principal diagnosis: COVID Interval history: Patient is high patient feels better, however debilitated, remains on high flow nasal cannula 80%, no fever. Objective - Exam Narrative Exam: General appearance: Alert in no acute distress Eyes: anicteric sclerae, moist conjunctivae; no lid-lag; PERRLA HENT: Normocephalic, Atraumatic; normal external ears, nares open, oropharynx clear Neck: supple, tracheal midline, no JVD Lungs: Diminished breath sounds bilaterally CV: RRR no murmur Abdomen: Soft, obese nontender Extremities: no edema, no cyanosis Skin: No rash. Psych: no agitated Neuro: alert and oriented x 3. Moving all extermities . - Constitutional Vitals: Vital Signs Temp Pulse Resp BP Pulse Ox 98.9 F 67 14 119/80 90 08/22/20 08:00 08/22/20 09:00 08/22/20 09:00 08/22/20 09:00 08/22/20 09:00 Temperature -Last 24 Hours Temperature 98.9 F Temperature 98.9 F Temperature 99.6 F Temperature 98.2 F Temperature 98.8 F - Labs CBC & Chem 7: 08/22/20 05:23 08/22/20 05:23 Labs: Abnormal lab results 08/21/20 08/21/20 08/21/20 Range/Units 11:17 13:39 13:39 WBC (4.5-11.0) K/mm3 D-Dimer (0-234) ng/mlDDU Sodium (137-145) mmol/L Chloride (98-107) mmol/L BUN (9-20) mg/dL Creatinine (0.8-1.3) mg/dL Glucose (75-100) mg/dL POC Glucose 151 H (70-105) mg/dL Ferritin 1019.0 H (30.0-300.0) ng/mL Lactate Dehydrogenase 1251 H (91-180) units/L 08/21/20 08/22/20 08/22/20 Range/Units 15:55 05:23 05:23 WBC 24.7 H (4.5-11.0) K/mm3 D-Dimer 6731.66 H (0-234) ng/mlDDU Sodium 136 L (137-145) mmol/L Chloride 96.3 L (98-107) mmol/L BUN 24 H (9-20) mg/dL Creatinine 0.7 L (0.8-1.3) mg/dL Glucose 115 H (75-100) mg/dL POC Glucose (70-105) mg/dL Ferritin (30.0-300.0) ng/mL Lactate Dehydrogenase (91-180) units/L
--- NOTE | 2020-08-22 12:26 | Progress Note ---
Assessment and Plan 30 y/o morbidly obese male with acute respiratory failure secondary to COVID 19 pneumonia. now found to have DVT in lower ext. 08/22/20: Bipap PRN and QHS. Will given lasix today. Prone as tolerated. PT continues. Slight improvement. Will continue to follow. 08/21/20: Bipap PRN and QHS. Hold on lasix today. Continue to prone as much as tolerated. Will order PT consult. 08/18/20: Bipap pRN and QHS. More lasix today. Prone as tolerated during the day and sleep prone at night. CONtinue to try to hold off on intubation. Guard ed prognosis. 08/17/20: Continue anticoagulation. Still trying to prevent intubation however will do electively if and when needed to prevent and emergent situation as patient will likely be difficult given neck and body habitus. Continue prone as tolerated. Steroids and remdesivir. 08/16/20: Anticoagulation. Prone as tolerated. Wean bipap as tolerated. Prognosis remains guarded. Trying to prevent intubation given poor outcomes associated with mechanically ventilated obese COVID patients. 08/15/20: Continue therapeutic anticoagulation. No current indication for vascular consult given no evidence of right heart strain on echo. CT would only be beneficial if we thought it would show large enough clot to warrant EKOS and with no evidence of strain, I doubt that will be the case. Continue proning as much as tolerated. Spoke with mother over the phone to update her. Patient also got actemra on yesterday as well. Prognosis remains guarded 08/14/20: Will accept sats in the mid 80's as long as mental state and work of breathing do not change. AGree with lasix therapy. Found to have large DVT on right. Spoke with [facility] and asked them to order stat echo to look for right heart strain, and if present may need to consider echos. Await echo before vascular consult. Prone if possible. Long discussion with mother on phone. Gave her a list of the meds he is on and what our current plan is. Also very candid with her and son at bedside that the mortality rate with COVID is very very high. 08/13/20: Lasix again today. Continue to alternate between HFNC with NRB and bi pap. Prognosis is very very guarded. Very very guarded to poor prognosis given CXR appearance, and body habitus, along with rapid decline in self sustaning oxygen levels. Agree with lasix and increase in steroids. Must prone. Very high likelihood for mechanical ventilation which would carry a high mortality for patient. Will continue to follow. No additional IVF's unless indicated. Subjective Date of service: 08/22/20 Principal diagnosis: COVID Interval history: No acute events. Down to 80% on HFNC. Objective Vital Signs - 12hr 08/22/20 08/22/20 08/22/20 00:30 00:46 01:00 Temperature Pulse Rate 68 63 63 Pulse Rate [ From Monitor] Respiratory 12 16 13 Rate Blood Pressure 142/119 142/119 112/65 O2 Sat by Pulse 88 95 87 Oximetry 08/22/20 08/22/20 08/22/20 01:16 01:30 01:46 Temperature Pulse Rate 63 58 L 63 Pulse Rate [ From Monitor] Respiratory 15 13 14 Rate Blood Pressure 112/65 112/65 112/65 O2 Sat by Pulse 89 93 90 Oximetry 08/22/20 08/22/20 08/22/20 02:00 02:16 02:30 Temperature Pulse Rate 59 L 59 L 73 Pulse Rate [ From Monitor] Respiratory 12 12 12 Rate Blood Pressure 128/80 128/80 128/80 O2 Sat by Pulse 94 93 92 Oximetry 08/22/20 08/22/20 08/22/20 02:46 02:55 03:00 Temperature Pulse Rate 57 L 60 58 L Pulse Rate [ From Monitor] Respiratory 11 L 23 13 Rate Blood Pressure 128/80 118/74 O2 Sat by Pulse 94 96 94 Oximetry 08/22/20 08/22/20 08/22/20 03:16 03:30 03:46 Temperature Pulse Rate 61 58 L 51 L Pulse Rate [ From Monitor] Respiratory 14 13 22 Rate Blood Pressure 118/74 118/74 118/74 O2 Sat by Pulse 95 94 90 Oximetry 08/22/20 08/22/20 08/22/20 04:00 04:16 04:30 Temperature 98.9 F Pulse Rate 54 L 58 L 57 L Pulse Rate [ 56 L From Monitor] Respiratory 14 12 15 Rate Blood Pressure 118/82 118/82 118/82 O2 Sat by Pulse 97 92 93 Oximetry 08/22/20 08/22/20 08/22/20 04:46 05:00 05:16 Temperature Pulse Rate 56 L 57 L 56 L Pulse Rate [ From Monitor] Respiratory 10 L 11 L 12 Rate Blood Pressure 118/82 115/64 115/64 O2 Sat by Pulse 94 93 96 Oximetry 08/22/20 08/22/20 08/22/20 05:30 05:46 06:00 Temperature Pulse Rate 60 57 L 58 L Pulse Rate [ From Monitor] Respiratory 19 10 L 10 L Rate Blood Pressure 115/64 115/64 129/72 O2 Sat by Pulse 95 94 96 Oximetry 08/22/20 08/22/20 08/22/20 06:16 06:30 06:46 Temperature Pulse Rate 57 L 55 L 54 L Pulse Rate [ From Monitor] Respiratory 11 L 18 17 Rate Blood Pressure 129/72 129/72 129/72 O2 Sat by Pulse 95 94 95 Oximetry 08/22/20 08/22/20 08/22/20 07:00 07:30 08:00 Temperature 98.9 F Pulse Rate 56 L 55 L 56 L Pulse Rate [ From Monitor] Respiratory 11 L 10 L 10 L Rate Blood Pressure 121/64 121/64 119/80 O2 Sat by Pulse 95 95 95 Oximetry 08/22/20 08/22/20 08/22/20 08:06 08:30 09:00 Temperature Pulse Rate 53 L 67 Pulse Rate [ From Monitor] Respiratory 11 L 14 Rate Blood Pressure 119/80 119/80 O2 Sat by Pulse 95 93 90 Oximetry CBC and BMP: 08/22/20 05:23 08/22/20 05:23 ABG, PT/INR, D-dimer: ABG ABG pH 7.443 (7.320-7.450) 08/14/20 08:23 POC ABG pCO2 46.9 mmHg (32.0-48.0) 08/14/20 08:23 ABG pCO2 62.9 mm Hg 08/12/20 14:55 POC ABG pO2 50.0 mmHg (83-108) L 08/14/20 08:23 ABG pO2 65.8 mm Hg (80.0-90.0) L 08/12/20 14:55 POC ABG HCO3 31.4 08/14/20 08:23 ABG O2 Saturation 85.0 (0-100) 08/14/20 08:23 PT/INR, D-dimer PT 12.6 Sec. (12.2-14.9) 08/10/20 08:29 INR 0.96 (0.87-1.13) 08/10/20 08:29 D-Dimer 6731.66 ng/mlDDU (0-234) H 08/21/20 15:55 Abnormal lab findings: Abnormal Labs 08/10/20 08/10/20 08/10/20 08:29 08:29 08:29 WBC Lymph % (Auto) Emanuel % (Auto) 8.4 H Lymph # (Auto) Emanuel # (Auto) Seg Neutrophils % Seg Neuts % (Manual) Lymphocytes % (Manual) Seg Neutrophils # Seg Neutrophils # Man Lymphocytes # (Manual) Monocytes # (Manual) D-Dimer ABG pH POC ABG pCO2 POC ABG pO2 ABG pO2 ABG HCO3 ABG O2 Saturation ABG Hemoglobin ABG Oxyhemoglobin ABG Potassium ABG Glucose VBG pH 7.303 L Oxyhemoglobin Sodium Potassium Chloride Carbon Dioxide BUN Creatinine Glucose 132 H POC Glucose Hemoglobin A1c Ferritin AST Lactate Dehydrogenase C-Reactive Protein Albumin Arterial Blood Glucose Coronavirus (PCR) 08/11/20 08/11/20 08/11/20 05:39 05:39 05:39 WBC Lymph % (Auto) 12.5 L Emanuel % (Auto) Lymph # (Auto) Emanuel # (Auto) Seg Neutrophils % 84.2 H Seg Neuts % (Manual) Lymphocytes % (Manual) Seg Neutrophils # 9.1 H Seg Neutrophils # Man Lymphocytes # (Manual) Monocytes # (Manual) D-Dimer ABG pH POC ABG pCO2 POC ABG pO2 ABG pO2 ABG HCO3 ABG O2 Saturation ABG Hemoglobin ABG Oxyhemoglobin ABG Potassium ABG Glucose VBG pH Oxyhemoglobin Sodium Potassium Chloride Carbon Dioxide BUN Creatinine Glucose 125 H POC Glucose Hemoglobin A1c 6.1 H Ferritin AST Lactate Dehydrogenase C-Reactive Protein Albumin Arterial Blood Glucose Coronavirus (PCR) 08/11/20 08/11/20 08/11/20 18:58 18:58 18:58 WBC Lymph % (Auto) Emanuel % (Auto) Lymph # (Auto) Emanuel # (Auto) Seg Neutrophils % Seg Neuts % (Manual) Lymphocytes % (Manual) Seg Neutrophils # Seg Neutrophils # Man Lymphocytes # (Manual) Monocytes # (Manual) D-Dimer 464.84 H ABG pH POC ABG pCO2 POC ABG pO2 ABG pO2 ABG HCO3 ABG O2 Saturation ABG Hemoglobin ABG Oxyhemoglobin ABG Potassium ABG Glucose VBG pH Oxyhemoglobin Sodium Potassium Chloride Carbon Dioxide BUN Creatinine Glucose POC Glucose Hemoglobin A1c Ferritin 528.7 H AST Lactate Dehydrogenase 637 H C-Reactive Protein 11.30 H Albumin Arterial Blood Glucose Coronavirus (PCR) 08/11/20 08/11/20 08/12/20 19:08 Unknown 06:29 WBC 11.2 H Lymph % (Auto) 8.6 L Emanuel % (Auto) Lymph # (Auto) 1.0 L Emanuel # (Auto) Seg Neutrophils % 88.3 H Seg Neuts % (Manual) Lymphocytes % (Manual) Seg Neutrophils # 9.8 H Seg Neutrophils # Man Lymphocytes # (Manual) Monocytes # (Manual) D-Dimer ABG pH POC ABG pCO2 POC ABG pO2 ABG pO2 ABG HCO3 ABG O2 Saturation ABG Hemoglobin ABG Oxyhemoglobin ABG Potassium ABG Glucose VBG pH Oxyhemoglobin Sodium Potassium Chloride Carbon Dioxide BUN Creatinine Glucose 161 H POC Glucose Hemoglobin A1c Ferritin AST Lactate Dehydrogenase C-Reactive Protein Albumin Arterial Blood Glucose Coronavirus (PCR) Positive A 08/12/20 08/12/20 08/12/20 06:29 06:29 06:29 WBC Lymph % (Auto) Emanuel % (Auto) Lymph # (Auto) Emanuel # (Auto) Seg Neutrophils % Seg Neuts % (Manual) Lymphocytes % (Manual) Seg Neutrophils # Seg Neutrophils # Man Lymphocytes # (Manual) Monocytes # (Manual) D-Dimer 830.34 H ABG pH POC ABG pCO2 POC ABG pO2 ABG pO2 ABG HCO3 ABG O2 Saturation ABG Hemoglobin ABG Oxyhemoglobin ABG Potassium ABG Glucose VBG pH Oxyhemoglobin Sodium Potassium Chloride Carbon Dioxide 31 H BUN Creatinine Glucose 138 H POC Glucose Hemoglobin A1c Ferritin 572.6 H AST 42 H Lactate Dehydrogenase 706 H C-Reactive Protein 17.30 H Albumin 3.7 L Arterial Blood Glucose Coronavirus (PCR) 08/12/20 08/12/20 08/12/20 13:21 14:55 21:59 WBC Lymph % (Auto) Emanuel % (Auto) Lymph # (Auto) Emanuel # (Auto) Seg Neutrophils % Seg Neuts % (Manual) Lymphocytes % (Manual) Seg Neutrophils # Seg Neutrophils # Man Lymphocytes # (Manual) Monocytes # (Manual) D-Dimer ABG pH 7.315 L POC ABG pCO2 57.1 H POC ABG pO2 47.8 L ABG pO2 65.8 L ABG HCO3 31.4 H ABG O2 Saturation 91.7 L ABG Hemoglobin 19.3 H ABG Oxyhemoglobin ABG Potassium 4.9 H ABG Glucose 182 H VBG pH Oxyhemoglobin 89.7 L Sodium Potassium Chloride Carbon Dioxide BUN Creatinine Glucose POC Glucose 142 H Hemoglobin A1c Ferritin AST Lactate Dehydrogenase C-Reactive Protein Albumin Arterial Blood Glucose 182 H Coronavirus (PCR) 08/13/20 08/13/20 08/13/20 05:35 05:35 12:11 WBC 12.0 H Lymph % (Auto) 8.1 L Emanuel % (Auto) Lymph # (Auto) 1.0 L Emanuel # (Auto) Seg Neutrophils % 88.0 H Seg Neuts % (Manual) Lymphocytes % (Manual) Seg Neutrophils # 10.5 H Seg Neutrophils # Man Lymphocytes # (Manual) Monocytes # (Manual) D-Dimer ABG pH POC ABG pCO2 POC ABG pO2 ABG pO2 ABG HCO3 ABG O2 Saturation ABG Hemoglobin ABG Oxyhemoglobin ABG Potassium ABG Glucose VBG pH Oxyhemoglobin Sodium Potassium 5.1 H Chloride Carbon Dioxide 31 H BUN 25 H Creatinine Glucose 174 H POC Glucose 154 H Hemoglobin A1c Ferritin AST 41 H Lactate Dehydrogenase 996 H C-Reactive Protein Albumin 3.8 L Arterial Blood Glucose Coronavirus (PCR) 08/13/20 08/13/20 08/14/20 16:18 23:24 05:21 WBC 14.2 H Lymph % (Auto) 8.2 L Emanuel % (Auto) Lymph # (Auto) Emanuel # (Auto) 0.9 H Seg Neutrophils % 85.4 H Seg Neuts % (Manual) Lymphocytes % (Manual) Seg Neutrophils # 12.2 H Seg Neutrophils # Man Lymphocytes # (Manual) Monocytes # (Manual) D-Dimer ABG pH POC ABG pCO2 POC ABG pO2 ABG pO2 ABG HCO3 ABG O2 Saturation ABG Hemoglobin ABG Oxyhemoglobin ABG Potassium ABG Glucose VBG pH Oxyhemoglobin Sodium Potassium Chloride Carbon Dioxide BUN Creatinine Glucose POC Glucose 188 H 127 H Hemoglobin A1c Ferritin AST Lactate Dehydrogenase C-Reactive Protein Albumin Arterial Blood Glucose Coronavirus (PCR) 08/14/20 08/14/20 08/14/20 05:21 05:21 05:21 WBC Lymph % (Auto) Emanuel % (Auto) Lymph # (Auto) Emanuel # (Auto) Seg Neutrophils % Seg Neuts % (Manual) Lymphocytes % (Manual) Seg Neutrophils # Seg Neutrophils # Man Lymphocytes # (Manual) Monocytes # (Manual) D-Dimer > 02393 H ABG pH POC ABG pCO2 POC ABG pO2 ABG pO2 ABG HCO3 ABG O2 Saturation ABG Hemoglobin ABG Oxyhemoglobin ABG Potassium ABG Glucose VBG pH Oxyhemoglobin Sodium Potassium Chloride Carbon Dioxide 32 H 33 H BUN 26 H 26 H Creatinine Glucose 152 H 156 H POC Glucose Hemoglobin A1c Ferritin AST 53 H 54 H Lactate Dehydrogenase 1249 H C-Reactive Protein 9.90 H Albumin 3.7 L 3.7 L Arterial Blood Glucose Coronavirus (PCR) 08/14/20 08/14/20 08/14/20 05:21 05:58 08:23 WBC Lymph % (Auto) Emanuel % (Auto) Lymph # (Auto) Emanuel # (Auto) Seg Neutrophils % Seg Neuts % (Manual) Lymphocytes % (Manual) Seg Neutrophils # Seg Neutrophils # Man Lymphocytes # (Manual) Monocytes # (Manual) D-Dimer ABG pH POC ABG pCO2 POC ABG pO2 50.0 L ABG pO2 ABG HCO3 ABG O2 Saturation ABG Hemoglobin ABG Oxyhemoglobin 84.0 L ABG Potassium ABG Glucose 141 H VBG pH Oxyhemoglobin Sodium Potassium Chloride Carbon Dioxide BUN Creatinine Glucose POC Glucose 139 H Hemoglobin A1c Ferritin 1198.0 H AST Lactate Dehydrogenase C-Reactive Protein Albumin Arterial Blood Glucose 141 H Coronavirus (PCR) 08/15/20 08/15/20 08/16/20 05:16 05:16 05:26 WBC 13.7 H 17.7 H Lymph % (Auto) 8.2 L Emanuel % (Auto) Lymph # (Auto) Emanuel # (Auto) Seg Neutrophils % 86.2 H Seg Neuts % (Manual) 91.0 H 88.0 H Lymphocytes % (Manual) 7.0 L 9.0 L Seg Neutrophils # 15.3 H Seg Neutrophils # Man 12.5 H 15.6 H Lymphocytes # (Manual) 1.0 L Monocytes # (Manual) D-Dimer ABG pH POC ABG pCO2 POC ABG pO2 ABG pO2 ABG HCO3 ABG O2 Saturation ABG Hemoglobin ABG Oxyhemoglobin ABG Potassium ABG Glucose VBG pH Oxyhemoglobin Sodium Potassium Chloride Carbon Dioxide 32 H BUN 29 H Creatinine Glucose 150 H POC Glucose Hemoglobin A1c Ferritin AST Lactate Dehydrogenase 1150 H C-Reactive Protein Albumin 3.5 L Arterial Blood Glucose Coronavirus (PCR) 08/16/20 08/16/20 08/16/20 05:26 05:26 05:26 WBC Lymph % (Auto) Emanuel % (Auto) Lymph # (Auto) Emanuel # (Auto) Seg Neutrophils % Seg Neuts % (Manual) Lymphocytes % (Manual) Seg Neutrophils # Seg Neutrophils # Man Lymphocytes # (Manual) Monocytes # (Manual) D-Dimer > 66777 H ABG pH POC ABG pCO2 POC ABG pO2 ABG pO2 ABG HCO3 ABG O2 Saturation ABG Hemoglobin ABG Oxyhemoglobin ABG Potassium ABG Glucose VBG pH Oxyhemoglobin Sodium Potassium 5.2 H Chloride Carbon Dioxide BUN 25 H Creatinine Glucose 163 H POC Glucose Hemoglobin A1c Ferritin 1013.0 H AST Lactate Dehydrogenase C-Reactive Protein 4.00 H Albumin 3.6 L Arterial Blood Glucose Coronavirus (PCR) 08/17/20 08/17/20 08/17/20 05:06 05:06 07:51 WBC 20.7 H Lymph % (Auto) Emanuel % (Auto) Lymph # (Auto) Emanuel # (Auto) Seg Neutrophils % Seg Neuts % (Manual) 86.0 H Lymphocytes % (Manual) 7.0 L Seg Neutrophils # Seg Neutrophils # Man 17.8 H Lymphocytes # (Manual) Monocytes # (Manual) 1.2 H D-Dimer ABG pH POC ABG pCO2 POC ABG pO2 ABG pO2 ABG HCO3 ABG O2 Saturation ABG Hemoglobin ABG Oxyhemoglobin ABG Potassium ABG Glucose VBG pH Oxyhemoglobin Sodium Potassium Chloride 96.5 L Carbon Dioxide 31 H BUN 29 H Creatinine Glucose 121 H POC Glucose 110 H Hemoglobin A1c Ferritin AST 46 H Lactate Dehydrogenase C-Reactive Protein Albumin 3.7 L Arterial Blood Glucose Coronavirus (PCR) 08/17/20 08/17/20 08/18/20 11:42 21:45 05:13 WBC Lymph % (Auto) Emanuel % (Auto) Lymph # (Auto) Emanuel # (Auto) Seg Neutrophils % Seg Neuts % (Manual) Lymphocytes % (Manual) Seg Neutrophils # Seg Neutrophils # Man Lymphocytes # (Manual) Monocytes # (Manual) D-Dimer > 1000 H ABG pH POC ABG pCO2 POC ABG pO2 ABG pO2 ABG HCO3 ABG O2 Saturation ABG Hemoglobin ABG Oxyhemoglobin ABG Potassium ABG Glucose VBG pH Oxyhemoglobin Sodium Potassium Chloride Carbon Dioxide BUN Creatinine Glucose POC Glucose 122 H 143 H Hemoglobin A1c Ferritin AST Lactate Dehydrogenase C-Reactive Protein Albumin Arterial Blood Glucose Coronavirus (PCR) 08/18/20 08/18/20 08/21/20 05:13 05:13 11:17 WBC Lymph % (Auto) Emanuel % (Auto) Lymph # (Auto) Emanuel # (Auto) Seg Neutrophils % Seg Neuts % (Manual) Lymphocytes % (Manual) Seg Neutrophils # Seg Neutrophils # Man Lymphocytes # (Manual) Monocytes # (Manual) D-Dimer ABG pH POC ABG pCO2 POC ABG pO2 ABG pO2 ABG HCO3 ABG O2 Saturation ABG Hemoglobin ABG Oxyhemoglobin ABG Potassium ABG Glucose VBG pH Oxyhemoglobin Sodium 133 L Potassium Chloride 94.7 L Carbon Dioxide BUN 33 H Creatinine Glucose 110 H POC Glucose 151 H Hemoglobin A1c Ferritin 979.8 H AST 50 H Lactate Dehydrogenase C-Reactive Protein Albumin 3.7 L Arterial Blood Glucose Coronavirus (PCR) 08/21/20 08/21/20 08/21/20 13:39 13:39 15:55 WBC Lymph % (Auto) Emanuel % (Auto) Lymph # (Auto) Emanuel # (Auto) Seg Neutrophils % Seg Neuts % (Manual) Lymphocytes % (Manual) Seg Neutrophils # Seg Neutrophils # Man Lymphocytes # (Manual) Monocytes # (Manual) D-Dimer 6731.66 H ABG pH POC ABG pCO2 POC ABG pO2 ABG pO2 ABG HCO3 ABG O2 Saturation ABG Hemoglobin ABG Oxyhemoglobin ABG Potassium ABG Glucose VBG pH Oxyhemoglobin Sodium Potassium Chloride Carbon Dioxide BUN Creatinine Glucose POC Glucose Hemoglobin A1c Ferritin 1019.0 H AST Lactate Dehydrogenase 1251 H C-Reactive Protein Albumin Arterial Blood Glucose Coronavirus (PCR) 08/22/20 08/22/20 05:23 05:23 WBC 24.7 H Lymph % (Auto) Emanuel % (Auto) Lymph # (Auto) Emanuel # (Auto) Seg Neutrophils % Seg Neuts % (Manual) Lymphocytes % (Manual) Seg Neutrophils # Seg Neutrophils # Man Lymphocytes # (Manual) Monocytes # (Manual) D-Dimer ABG pH POC ABG pCO2 POC ABG pO2 ABG pO2 ABG HCO3 ABG O2 Saturation ABG Hemoglobin ABG Oxyhemoglobin ABG Potassium ABG Glucose VBG pH Oxyhemoglobin Sodium 136 L Potassium Chloride 96.3 L Carbon Dioxide BUN 24 H Creatinine 0.7 L Glucose 115 H POC Glucose Hemoglobin A1c Ferritin AST Lactate Dehydrogenase C-Reactive Protein Albumin Arterial Blood Glucose Coronavirus (PCR)
[2020-08-22] MEDS: APIXABAN 5 MG TAB PO SCH (22:40)
[2020-08-22] MEDS: ACETAMINOPHEN 325 MG TAB PO PRN (22:41)
[2020-08-23] MEDS ORDERED: FUROSEMIDE 20 MG/2 ML INJ IV NR (09:28)
[2020-08-23] MEDS: ASCORBIC ACID 500 MG TAB PO SCH ×2 (10:00→22:56)
[2020-08-23] MEDS: FAMOTIDINE 20 MG/2 ML INJ IV SCH ×2 (10:00→22:57)
[2020-08-23] MEDS: ZINC SULFATE 220 MG CAP PO SCH (10:00)
[2020-08-23] MEDS: APIXABAN 5 MG TAB PO SCH ×2 (10:00→22:56)
--- NOTE | 2020-08-23 10:43 | Progress Note ---
Assessment and Plan Assessment and plan: --Acute hypoxic respiratory failure secondary to COVID-19 PNA Patient remains on high flow oxygen 40/100/94 intermittent BiPAP Home O2 evaluation at discharge --COVID-19 Pneumonia Continue antibiotics Continue steroids total 10 days s/p Remdesivir s/p tocilizumab Oxygen supplementation with BiPAP Trend inflammatory markers Prone positioning strongly advised ID and pulmonology following --Right lower extremity DVT D-dimer more than 10,000 US shows RLE DVT. Echocardiogram shows no right heart strain. DC Lovenox, transition to Eliquis --Sinus bradycardia Likely from remdesivir Heart rate in 60s and 70s today TSH wnl --Morbid obesity Diet and exercise advised Patient needs outpatient bariatric surgical/medical weight reduction consult when medically stable --DVT prophylaxis-Lovenox Brief history 30-year-old male with morbid obesity weighing about 310 pounds comes in for intermittent frontal headache for 3 days. In the emergency room patient was very hypoxic but denies shortness of breath or cough. No muscle aches. His oxygen levels are mid 80s. Denies smoking. Work-up in the emergency room showed bilateral patchy opacities in the lungs and hypoxia-hence he was admitted for bilateral pneumonia and possible Covid pneumonia. No significant past medical history 08/11. Patient seen examined at bedside this morning. Has no complaints. Febrile this a.m.-103 Fahrenheit. On Tylenol as needed. COVID-19 test ordered. Remains on steroids. ID consult if COVID-19 is positive. 08/12. His COVID-19 test is positive. He was started on remdesivir last night. Oxygen requirement increased overnight. Inflammatory markers increasing. Repeat chest xray shows worsening infiltrates. Ordered BNP. Lasix 40mg IV ordered. Increased dexamethasone to 6mg BID. Pulmonology consulted. Will place on continuous pulse oximetry. Incentive spirometer ordered. Advised prone positioning. 08/13. Not feeling better. Seen on BIPAP. Remains on steroids, remdesivir and a ntibiotics. Vitals stable. 08/14. Still maintaining sats even on BiPAP. Lasix 40 mg IV ordered. D-dimer this a.m. is more than 10,000. Lovenox increased to 150 mg twice daily. Ultrasound lower extremities Doppler showed a right DVT. Echocardiogram ordered to rule out right heart strain. Pending results, patient may need vascular surgery evaluation for possible thrombectomy. Continue on BiPAP and continue to monitor respiratory status closely. 08/15. Sats better this AM. Received toculizumab yesterday. Advised him to prone as much as possible. Echo shows normal EF with no right heart strain. I/Os reviewed. He is diuresing well. Renal function is stable. Will give additional lasix today. Pulmonology following 08/16. Remains on remdesivir. Still on BIPAP. Will give lasix 20mg IV. HR is low - likley effect of remdesivir. Will continue to monitor closely 08/17. Sats in the 90's this AM. Still on BIPAP. 08/18; patient remains hypoxic requiring BiPAP and 100% nonrebreather intermitten tly ID pulmonary following follow the recommendations Closely monitor the patient and adjust the management as needed 08/19; Continue supportive care, wean oxygen as tolerated. Encouraged PRONE positi oning if able to tolerate. 08/20:Remains on BiPAP. continue lasix, still not proninig, encouraged to prone, FIO2 down to 90% with sat of 96%. Continue care, prognosis still guarded. 08/21: Patient down on high flow. Continue to encourage proning position. Still with guarded prognosis. Elevation in WBC noted to 20 this could be secondary to steroids I will continue to monitor. No fever noted at this time. Patient's respiratory status has stabilized on the high flow with no shallow breathing noted Discussed with the nurse at bedside 08/22; DC Lovenox therapeutic dose, start Eliquis per protocol to treat lower extremity DVT. 08/23; patient remains on high flow oxygen 40 L/100 FiO2/94% O2 sats, intermittent BiPAP The high probability of a clinically significant, sudden or life threatening deterioration of the [pulmonary] system(s) required my full and direct attention, intervention and personal management. The aggregate critical care time was [33] minutes. This time is in addition to time spent performing reported procedures but includes the following: [x] Data Review and interpretation [x] Patient assessment and monitoring of vital signs [x] Documentation [x] Medication orders and management History Interval history: I have seen and examined the patient in IMCU this morning Patient's chart and medications reviewed Patient's feels slightly better. No new complaints Remains on high flow oxygen[ 40 liters / FiO2 100 percent/94 O2 sats] Patient is morbidly obese in mild distress Vital signs reviewed Hospitalist Physical - Constitutional Vitals: Temp Pulse Resp BP Pulse Ox 98.2 F 64 17 106/70 94 08/23/20 08:00 08/23/20 06:00 08/23/20 06:00 08/23/20 06:00 08/23/20 08:00 General appearance: Present: no acute distress, well-nourished, obese (Morbidly obese) - EENT Eyes: Present: PERRL, EOM intact - Neck Neck: Present: supple, normal ROM - Respiratory Respiratory effort: normal Respiratory: bilateral: diminished, negative: rales, rhonchi, wheezing - Cardiovascular Rhythm: regular Heart Sounds: Present: S1 & S2 - Extremities Extremities: no ischemia, No edema - Abdominal General gastrointestinal: soft, non-tender, non-distended, distended - Integumentary Integumentary: Present: clear, warm - Psychiatric Psychiatric: appropriate mood/affect, cooperative - Neurologic Neurologic: moves all extremities Results - Labs CBC & Chem 7: 08/22/20 05:23 08/22/20 05:23 Labs: Laboratory Last Values WBC 24.7 K/mm3 (4.5-11.0) H 08/22/20 05:23 RBC 4.79 M/mm3 (3.65-5.03) 08/22/20 05:23 Hgb 13.8 gm/dl (11.8-15.2) 08/22/20 05:23 Hct 41.9 % (35.5-45.6) 08/22/20 05:23 MCV 88 fl (84-94) 08/22/20 05:23 MCH 29 pg (28-32) 08/22/20 05:23 MCHC 33 % (32-34) 08/22/20 05:23 RDW 13.7 % (13.2-15.2) 08/22/20 05:23 Plt Count 371 K/mm3 (140-440) 08/22/20 05:23 Lymph % (Auto) 8.2 % (13.4-35.0) L 08/16/20 05:26 [place] % (Auto) 4.7 % (0.0-7.3) 08/16/20 05:26 Eos % (Auto) 0.2 % (0.0-4.3) 08/16/20 05:26 Baso % (Auto) 0.7 % (0.0-1.8) 08/16/20 05:26 Lymph # (Auto) 1.5 K/mm3 (1.2-5.4) 08/16/20 05:26 [place] # (Auto) 0.8 K/mm3 (0.0-0.8) 08/16/20 05:26 Eos # (Auto) 0.0 K/mm3 (0.0-0.4) 08/16/20 05:26 Baso # (Auto) 0.1 K/mm3 (0.0-0.1) 08/16/20 05:26 Add Manual Diff Complete 08/17/20 05:06 Total Counted 100 08/17/20 05:06 Seg Neutrophils % 86.2 % (40.0-70.0) H 08/16/20 05:26 Seg Neuts % (Manual) 86.0 % (40.0-70.0) H 08/17/20 05:06 Lymphocytes % (Manual) 7.0 % (13.4-35.0) L 08/17/20 05:06 Monocytes % (Manual) 6.0 % (0.0-7.3) 08/17/20 05:06 Eosinophils % (Manual) 1.0 % (0.0-4.3) 08/17/20 05:06 Metamyelocytes % 2.0 % 08/15/20 05:16 Nucleated RBC % Not Reportable 08/17/20 05:06 Seg Neutrophils # 15.3 K/mm3 (1.8-7.7) H 08/16/20 05:26 Seg Neutrophils # Man 17.8 K/mm3 (1.8-7.7) H 08/17/20 05:06 Band Neutrophils # 0.0 K/mm3 08/17/20 05:06 Lymphocytes # (Manual) 1.4 K/mm3 (1.2-5.4) 08/17/20 05:06 Abs React Lymphs (Man) 0.0 K/mm3 08/17/20 05:06 Monocytes # (Manual) 1.2 K/mm3 (0.0-0.8) H 08/17/20 05:06 Eosinophils # (Manual) 0.2 K/mm3 (0.0-0.4) 08/17/20 05:06 Basophils # (Manual) 0.0 K/mm3 (0.0-0.1) 08/17/20 05:06 Metamyelocytes # 0.0 K/mm3 08/17/20 05:06 Myelocytes # 0.0 K/mm3 08/17/20 05:06 Promyelocytes # 0.0 K/mm3 08/17/20 05:06 Blast Cells # 0.0 K/mm3 08/17/20 05:06 WBC Morphology Not Reportable 08/17/20 05:06 Hypersegmented Neuts Not Reportable 08/17/20 05:06 Hyposegmented Neuts Not Reportable 08/17/20 05:06 Hypogranular Neuts Not Reportable 08/17/20 05:06 Smudge Cells Not Reportable 08/17/20 05:06 Toxic Granulation Not Reportable 08/17/20 05:06 Toxic Vacuolation Not Reportable 08/17/20 05:06 Dohle Bodies Not Reportable 08/17/20 05:06 Pelger-Huet Anomaly Not Reportable 08/17/20 05:06 Juan Luis Rods Not Reportable 08/17/20 05:06 Platelet Estimate Consistent w auto 08/17/20 05:06 Clumped Platelets Not Reportable 08/17/20 05:06 Plt Clumps, EDTA Not Reportable 08/17/20 05:06 Large Platelets Not Reportable 08/17/20 05:06 Giant Platelets Not Reportable 08/17/20 05:06 Platelet Satelliting Not Reportable 08/17/20 05:06 Plt Morphology Comment Not Reportable 08/17/20 05:06 RBC Morphology Not Reportable 08/17/20 05:06 Dimorphic RBCs Not Reportable 08/17/20 05:06 Polychromasia Not Reportable 08/17/20 05:06 Hypochromasia Not Reportable 08/17/20 05:06 Poikilocytosis Not Reportable 08/17/20 05:06 Anisocytosis Few 08/17/20 05:06 Microcytosis Not Reportable 08/17/20 05:06 Macrocytosis Not Reportable 08/17/20 05:06 Spherocytes Not Reportable 08/17/20 05:06 Pappenheimer Bodies Not Reportable 08/17/20 05:06 Sickle Cells Not Reportable 08/17/20 05:06 Target Cells Not Reportable 08/17/20 05:06 Tear Drop Cells Not Reportable 08/17/20 05:06 Ovalocytes Not Reportable 08/17/20 05:06 Helmet Cells Not Reportable 08/17/20 05:06 [place] Bodies Not Reportable 08/17/20 05:06 [place] Rings Not Reportable 08/17/20 05:06 [place] Cells Not Reportable 08/17/20 05:06 Bite Cells Not Reportable 08/17/20 05:06 Crenated Cell Not Reportable 08/17/20 05:06 Elliptocytes Not Reportable 08/17/20 05:06 Acanthocytes (Spur) Not Reportable 08/17/20 05:06 Rouleaux Not Reportable 08/17/20 05:06 Hemoglobin C Crystals Not Reportable 08/17/20 05:06 Schistocytes Not Reportable 08/17/20 05:06 Malaria parasites Not Reportable 08/17/20 05:06 Asif Bodies Not Reportable 08/17/20 05:06 Hem Pathologist Commnt No 08/17/20 05:06 PT 12.6 Sec. (12.2-14.9) 08/10/20 08:29 INR 0.96 (0.87-1.13) 08/10/20 08:29 D-Dimer 6731.66 ng/mlDDU (0-234) H 08/21/20 15:55 ABG pH 7.443 (7.320-7.450) 08/14/20 08:23 POC ABG pCO2 46.9 mmHg (32.0-48.0) 08/14/20 08:23 ABG pCO2 62.9 mm Hg 08/12/20 14:55 POC ABG pO2 50.0 mmHg (83-108) L 08/14/20 08:23 ABG pO2 65.8 mm Hg (80.0-90.0) L 08/12/20 14:55 POC ABG HCO3 31.4 08/14/20 08:23 ABG HCO3 31.4 mmol/L (20.0-26.0) H 08/12/20 14:55 ABG O2 Saturation 85.0 (0-100) 08/14/20 08:23 ABG O2 Content 24.3 (0.0-44) 08/12/20 14:55 POC ABG Base Excess 6.3 08/14/20 08:23 ABG Base Excess 2.6 mmol/L (-2.0-3.0) 08/12/20 14:55 ABG Hemoglobin 13.4 (12.0-17.5) 08/14/20 08:23 ABG Oxyhemoglobin 84.0 (94-98) L 08/14/20 08:23 ABG Carboxyhemoglobin 1.7 % (0.0-5.0) 08/12/20 14:55 ABG Methemoglobin 0.3 (0.0-1.5) 08/14/20 08:23 ABG Sodium 139.2 mmol/L (136.0-145.0) 08/14/20 08:23 ABG Potassium 4.5 mmol/L (3.40-4.50) 08/14/20 08:23 ABG Chloride 99.0 mmol/L (98-107) 08/14/20 08:23 ABG Glucose 141 mg/dL (65-95) H 08/14/20 08:23 VBG pH 7.303 (7.320-7.420) L 08/10/20 08:29 Oxyhemoglobin 89.7 % (95.0-99.0) L 08/12/20 14:55 Carboxyhemoglobin 0.9 (0.5-1.5) 08/14/20 08:23 FiO2 60 % 08/12/20 14:55 FiO2 % 100 08/14/20 08:23 Sodium 136 mmol/L (137-145) L 08/22/20 05:23 Potassium 5.0 mmol/L (3.6-5.0) 08/22/20 05:23 Chloride 96.3 mmol/L (98-107) L 08/22/20 05:23 Carbon Dioxide 28 mmol/L (22-30) 08/22/20 05:23 Anion Gap 17 mmol/L 08/22/20 05:23 BUN 24 mg/dL (9-20) H 08/22/20 05:23 Creatinine 0.7 mg/dL (0.8-1.3) L 08/22/20 05:23 Estimated GFR > 60 ml/min 08/22/20 05:23 BUN/Creatinine Ratio 34 % 08/22/20 05:23 Glucose 115 mg/dL (75-100) H 08/22/20 05:23 POC Glucose 151 mg/dL (70-105) H 08/21/20 11:17 Hemoglobin A1c 6.1 % (4-6) H 08/11/20 05:39 Lactic Acid 0.80 mmol/L (0.7-2.0) 08/10/20 11:18 Calcium 9.1 mg/dL (8.4-10.2) 08/22/20 05:23 Ferritin 1019.0 ng/mL (30.0-300.0) H 08/21/20 13:39 Total Bilirubin 0.50 mg/dL (0.1-1.2) 08/18/20 05:13 AST 50 units/L (5-40) H 08/18/20 05:13 ALT 50 units/L (7-56) 08/18/20 05:13 Alkaline Phosphatase 103 units/L (35-129) 08/18/20 05:13 Lactate Dehydrogenase 1251 units/L (91-180) H 08/21/20 13:39 C-Reactive Protein 0.30 mg/dL (0.00-1.30) 08/21/20 13:39 NT-Pro-B Natriuret Pep 36.40 pg/mL (0-450) 08/12/20 06:29 Total Protein 6.9 g/dL (6.3-8.2) 08/18/20 05:13 Albumin 3.7 g/dL (3.9-5) L 08/18/20 05:13 Albumin/Globulin Ratio 1.1 % 08/18/20 05:13 Procalcitonin 0.08 ng/mL (<0.15) 08/21/20 13:39 TSH 1.830 mlU/mL (0.270-4.200) 08/17/20 05:06 Free T4 1.01 ng/dL (0.76-1.46) 08/17/20 05:06 Arterial Blood Glucose 141 mg/dL (65-95) H 08/14/20 08:23 Arterial Blood Ionized Calcium 4.8 mg/dL (4.6-5.3) 08/14/20 08:23 Urine Color Yellow (Yellow) 08/10/20 Unknown Urine Turbidity Cloudy (Clear) 08/10/20 Unknown Urine pH 5.0 (5.0-7.0) 08/10/20 Unknown Ur Specific [place] 1.025 (1.003-1.030) 08/10/20 Unknown Urine Protein 30 mg/dl mg/dL (Negative) 08/10/20 Unknown Urine Glucose (UA) 150 mg/dL (Negative) 08/10/20 Unknown Urine Ketones Negative mg/dL (Negative) 08/10/20 Unknown Urine Blood Negative (Negative) 08/10/20 Unknown Urine Nitrite Negative (Negative) 08/10/20 Unknown Urine Bilirubin Negative (Negative) 08/10/20 Unknown Urine Urobilinogen < 2.0 mg/dL (<2.0) 08/10/20 Unknown Ur Leukocyte Esterase Negative (Negative) 08/10/20 Unknown Urine WBC (Auto) 5.0 /HPF (0.0-6.0) 08/10/20 Unknown Urine RBC (Auto) 2.0 /HPF (0.0-6.0) 08/10/20 Unknown U Epithel Cells (Auto) 1.0 /HPF (0-13.0) 08/10/20 Unknown Urine Bacteria (Auto) 1+ /HPF (Negative) 08/10/20 Unknown Urine Mucus 3+ /HPF 08/10/20 Unknown Coronavirus (PCR) Positive (Negative) A 08/11/20 Unknown Gaytan/IV: Voiding Method Urinal Active Medications - Current Medications Current Medications: Generic Name Dose Route Start Last Admin Trade Name Freq PRN Reason Stop Dose Admin Acetaminophen 650 mg 08/10/20 23:48 08/22/20 22:41 Acetaminophen 325 Mg Tab PO 650 mg Q4H PRN Administration Pain MILD(1-3)/Fever >100.5/MARTINEZ Apixaban 10 mg 08/22/20 22:00 08/22/20 22:40 Apixaban 5 Mg Tab PO 08/29/20 10:01 10 mg Q12HR MELANIE Administration Protocol Apixaban 5 mg 08/29/20 22:00 Apixaban 5 Mg Tab PO Q12HR MELANIE Protocol Artificial Tears 2 drops 08/16/20 13:44 Hypromellose 0.5% Ophth Soln 15 Ml OU Q4H PRN Dry Eye(s) Ascorbic Acid 500 mg 08/12/20 10:00 08/22/20 22:41 Ascorbic Acid 500 Mg Tab PO 500 mg BID MELANIE Administration Famotidine 20 mg 08/11/20 10:00 08/22/20 22:41 Famotidine 20 Mg/2 Ml Inj IV 20 mg BID MELANIE Administration Metoclopramide HCl 10 mg 08/10/20 23:48 Metoclopramide 10 Mg/2 Ml Inj IV Q6H PRN Nausea And Vomiting Morphine Sulfate 2 mg 08/10/20 23:48 Morphine 2 Mg/1 Ml Inj IV Q4H PRN Pain, Moderate (4-6) Ondansetron HCl 4 mg 08/10/20 23:48 Ondansetron 4 Mg/2 Ml Inj IV Q8H PRN Nausea And Vomiting Oxycodone/Acetaminophen 1 tab 08/10/20 23:48 Oxycodone /Acetaminophen 5-325mg Tab PO Q6H PRN Pain, Moderate (4-6) Sodium Chloride 10 ml 08/11/20 10:00 08/22/20 22:41 Sodium Chloride 0.9% 10 Ml Flush Syringe IV 10 ml BID MELANIE Administration Sodium Chloride 10 ml 08/10/20 23:48 08/12/20 21:04 Sodium Chloride 0.9% 10 Ml Flush Syringe IV 10 ml PRN PRN Administration LINE FLUSH Zinc Sulfate 220 mg 08/12/20 12:00 08/22/20 10:00 Zinc Sulfate 220 Mg Cap PO 220 mg QDAY MELANIE Administration Nutrition/Malnutrition Assess - Dietary Evaluation Nutrition/Malnutrition Findings: Nutrition Notes Start: 08/17/20 10:49 Freq: Status: Active Protocol: Document 08/21/20 14:53 CW (Rec: 08/21/20 14:58 CW [id number]) Nutrition Notes Initial or Follow up Reassessment Other Pertinent Diagnosis COVID-19 (+), pneu, RLE DVT, sinus bradycardia Current Diet Regular Labs/Tests No new labs Pertinent Medications Decadron Height 5 ft 11 in Weight 146.5 kg [place] Body Weight (kg) 78.18 BMI 45.0 Weight Status Morbidly Obese Subjective/Other Information F/U for intakes and intubation . Pt remains un-intubated. PO intake is improving. Pt ate 100% nof breakfast and ONS. Percent of energy/protein needs met: 45%/51% (breakfast+ 1 ONS) Burn Absent Trauma Absent Current % PO Fair (50-74%) Minimum of two criteria No #1 Nutrition Diagnosis Inadequate oral intake As Evidenced by Signs and Symptoms Pt consuming 100% of ONS and 100% of breakfast Diagnosis Progress(for reassessment Improved documentation) Is patient on ventilator? No Is Patient Ambulatory and/or Out of Bed No REE-([facility]-confined to bed) 2943.576 Kcal/Kg value to use for calculation 14 Approximate Energy Requirements Using 2050 kcal/Kg Calculation Used for Recommendations Kcal/kg Additional Notes Pro needs 0.8-1g/kg adjBW: 90- 113g/day Fluid needs 1ml/kcal Nutrition Intervention Change Diet Order: Continue current diet as tolerated Add Supplement/Snack (indicate name/kcal Ensure High Protein BID /protein ) Provides kCal: 320 Provides Protein (gm) 32 Goal #1 PO tolerance Goal #2 PO intake of meals plus ONS to meet at least 75% energy and pro needs Anticipated Discharge Needs: Unable to identify at this time Follow-Up By: 08/23/20 Additional Comments F/U for intakes
--- NOTE | 2020-08-23 12:25 | Progress Note ---
Assessment and Plan Cultures: Blood culture 08/10/2020 no growth SARS CoV2 PCR positive 08/10/2020 urine culture: No growth Assessment: 30 years old male with history of morbid obesity, admitted on 08/10/2020 secondary to 3-day history of intermittent frontal headache: #Leukocytosis: worsening likely due to steroids, repeat procalcitonin level is low #Severe COVID19 pneumonia: On steroids, completed remdesivir. S/P actemra on 08/14/2020. Completed empiric abx course. Procal is low, additional abx not needed. #Acute hypoxemic respiratory failure: severe, on HFNC/BIPAP 100% #Acute right leg DVT, very high d-dimer. On anticoagulation. #LONNY: Resolved #Morbid obesity: Associated with worse outcomes Recommendations: -recheck CXR -Continue dexamethasone for 10 days -S/P remdesivir, actemra -Monitor inflammatory markers - ferritin, Ddimer, CRP, LDH, ordered -continue anticoagulation for DVT/Eliquis -prone positioning whenever possible -pulm on board Guarded prognosis, close monitoring, risk for deterioration Jaylyn Doe MD Infectious Diseases [employer] [facility] M [phone] O [phone] Subjective Date of service: 08/23/20 Principal diagnosis: COVID Interval history: Patient remains on high flow nasal cannula 100%, no fever. Objective - Exam Narrative Exam: General appearance: Alert in no acute distress Eyes: anicteric sclerae, moist conjunctivae; no lid-lag; PERRLA HENT: Normocephalic, Atraumatic; normal external ears, nares open, oropharynx clear Neck: supple, tracheal midline, no JVD Lungs: scattered Bs dwight CV: RRR no murmur Abdomen: Soft, obese nontender Extremities: no edema, no cyanosis Skin: No rash. Psych: no agitated Neuro: alert and oriented x 3. Moving all extermities . - Constitutional Vitals: Vital Signs Temp Pulse Resp BP Pulse Ox 97.9 F 64 17 106/70 94 08/23/20 11:30 08/23/20 06:00 08/23/20 06:00 08/23/20 06:00 08/23/20 08:00 Temperature -Last 24 Hours Temperature 97.9 F Temperature 98.2 F Temperature 98.4 F Temperature 97.3 F Temperature 97.3 F Temperature 98.1 F - Labs CBC & Chem 7: 08/22/20 05:23 08/22/20 05:23
--- NOTE | 2020-08-23 12:28 | Progress Note ---
Assessment and Plan 30 y/o morbidly obese male with acute respiratory failure secondary to COVID 19 pneumonia. now found to have DVT in lower ext. 08/23/20: No new recs. Proning is metcalf. Will continue to follow. Appreciate ID recs and help. 08/22/20: Bipap PRN and QHS. Will given lasix today. Prone as tolerated. PT continues. Slight improvement. Will continue to follow. 08/21/20: Bipap PRN and QHS. Hold on lasix today. Continue to prone as much as tolerated. Will order PT consult. 08/18/20: Bipap pRN and QHS. More lasix today. Prone as tolerated during the day and sleep prone at night. CONtinue to try to hold off on intubation. Guarded prognosis. 08/17/20: Continue anticoagulation. Still trying to prevent intubation however will do electively if and when needed to prevent and emergent situation as patient will likely be difficult given neck and body habitus. Continue prone as tolerated. Steroids and remdesivir. 08/16/20: Anticoagulation. Prone as tolerated. Wean bipap as tolerated. Prognosis remains guarded. Trying to prevent intubation given poor outcomes associated with mechanically ventilated obese COVID patients. 08/15/20: Continue therapeutic anticoagulation. No current indication for vascular consult given no evidence of right heart strain on echo. CT would only be beneficial if we thought it would show large enough clot to warrant EKOS and with no evidence of strain, I doubt that will be the case. Continue proning as much as tolerated. Spoke with mother over the phone to update her. Patient also got actemra on yesterday as well. Prognosis remains guarded 08/14/20: Will accept sats in the mid 80's as long as mental state and work of breathing do not change. AGree with lasix therapy. Found to have large DVT on right. Spoke with [facility] and asked them to order stat echo to look for right heart strain, and if present may need to consider echos. Await echo before vascular consult. Prone if possible. Long discussion with mother on phone. Gave her a list of the meds he is on and what our current plan is. Also very candid with her and son at bedside that the mortality rate with COVID is very very high. 08/13/20: Lasix again today. Continue to alternate between HFNC with NRB and bipap. Prognosis is very very guarded. Very very guarded to poor prognosis given CXR appearance, and body habitus, along with rapid decline in self sustaning oxygen levels. Agree with lasix and increase in steroids. Must prone. Very high likelihood for mechanical ventilation which would carry a high mortality for patient. Will continue to follow. No additional IVF's unless indicated. Subjective Date of service: 08/23/20 Principal diagnosis: COVID Interval history: No acute events. Objective Vital Signs - 12hr 08/23/20 08/23/20 08/23/20 01:00 02:00 03:00 Temperature Pulse Rate 65 74 70 Pulse Rate [ From Monitor] Respiratory 11 L 12 14 Rate Blood Pressure 106/55 106/55 118/49 O2 Sat by Pulse 90 90 95 Oximetry 08/23/20 08/23/20 08/23/20 03:52 03:57 04:00 Temperature 98.4 F Pulse Rate 61 62 Pulse Rate [ 62 From Monitor] Respiratory 14 Rate Blood Pressure 129/79 O2 Sat by Pulse 92 Oximetry 08/23/20 08/23/20 08/23/20 05:00 05:20 06:00 Temperature Pulse Rate 60 62 64 Pulse Rate [ From Monitor] Respiratory 13 27 H 17 Rate Blood Pressure 103/48 103/48 106/70 O2 Sat by Pulse 91 93 88 Oximetry 08/23/20 08/23/20 08:00 11:30 Temperature 98.2 F 97.9 F Pulse Rate Pulse Rate [ From Monitor] Respiratory Rate Blood Pressure O2 Sat by Pulse 94 Oximetry CBC and BMP: 08/22/20 05:23 08/22/20 05:23 ABG, PT/INR, D-dimer: ABG ABG pH 7.443 (7.320-7.450) 08/14/20 08:23 POC ABG pCO2 46.9 mmHg (32.0-48.0) 08/14/20 08:23 ABG pCO2 62.9 mm Hg 08/12/20 14:55 POC ABG pO2 50.0 mmHg (83-108) L 08/14/20 08:23 ABG pO2 65.8 mm Hg (80.0-90.0) L 08/12/20 14:55 POC ABG HCO3 31.4 08/14/20 08:23 ABG O2 Saturation 85.0 (0-100) 08/14/20 08:23 PT/INR, D-dimer PT 12.6 Sec. (12.2-14.9) 08/10/20 08:29 INR 0.96 (0.87-1.13) 08/10/20 08:29 D-Dimer 6731.66 ng/mlDDU (0-234) H 08/21/20 15:55 Abnormal lab findings: Abnormal Labs 08/10/20 08/10/20 08/10/20 08:29 08:29 08:29 WBC Lymph % (Auto) [place] % (Auto) 8.4 H Lymph # (Auto) [place] # (Auto) Seg Neutrophils % Seg Neuts % (Manual) Lymphocytes % (Manual) Seg Neutrophils # Seg Neutrophils # Man Lymphocytes # (Manual) Monocytes # (Manual) D-Dimer ABG pH POC ABG pCO2 POC ABG pO2 ABG pO2 ABG HCO3 ABG O2 Saturation ABG Hemoglobin ABG Oxyhemoglobin ABG Potassium ABG Glucose VBG pH 7.303 L Oxyhemoglobin Sodium Potassium Chloride Carbon Dioxide BUN Creatinine Glucose 132 H POC Glucose Hemoglobin A1c Ferritin AST Lactate Dehydrogenase C-Reactive Protein Albumin Arterial Blood Glucose Coronavirus (PCR) 08/11/20 08/11/20 08/11/20 05:39 05:39 05:39 WBC Lymph % (Auto) 12.5 L [place] % (Auto) Lymph # (Auto) [place] # (Auto) Seg Neutrophils % 84.2 H Seg Neuts % (Manual) Lymphocytes % (Manual) Seg Neutrophils # 9.1 H Seg Neutrophils # Man Lymphocytes # (Manual) Monocytes # (Manual) D-Dimer ABG pH POC ABG pCO2 POC ABG pO2 ABG pO2 ABG HCO3 ABG O2 Saturation ABG Hemoglobin ABG Oxyhemoglobin ABG Potassium ABG Glucose VBG pH Oxyhemoglobin Sodium Potassium Chloride Carbon Dioxide BUN Creatinine Glucose 125 H POC Glucose Hemoglobin A1c 6.1 H Ferritin AST Lactate Dehydrogenase C-Reactive Protein Albumin Arterial Blood Glucose Coronavirus (PCR) 08/11/20 08/11/20 08/11/20 18:58 18:58 18:58 WBC Lymph % (Auto) [place] % (Auto) Lymph # (Auto) [place] # (Auto) Seg Neutrophils % Seg Neuts % (Manual) Lymphocytes % (Manual) Seg Neutrophils # Seg Neutrophils # Man Lymphocytes # (Manual) Monocytes # (Manual) D-Dimer 464.84 H ABG pH POC ABG pCO2 POC ABG pO2 ABG pO2 ABG HCO3 ABG O2 Saturation ABG Hemoglobin ABG Oxyhemoglobin ABG Potassium ABG Glucose VBG pH Oxyhemoglobin Sodium Potassium Chloride Carbon Dioxide BUN Creatinine Glucose POC Glucose Hemoglobin A1c Ferritin 528.7 H AST Lactate Dehydrogenase 637 H C-Reactive Protein 11.30 H Albumin Arterial Blood Glucose Coronavirus (PCR) 08/11/20 08/11/20 08/12/20 19:08 Unknown 06:29 WBC 11.2 H Lymph % (Auto) 8.6 L [place] % (Auto) Lymph # (Auto) 1.0 L [place] # (Auto) Seg Neutrophils % 88.3 H Seg Neuts % (Manual) Lymphocytes % (Manual) Seg Neutrophils # 9.8 H Seg Neutrophils # Man Lymphocytes # (Manual) Monocytes # (Manual) D-Dimer ABG pH POC ABG pCO2 POC ABG pO2 ABG pO2 ABG HCO3 ABG O2 Saturation ABG Hemoglobin ABG Oxyhemoglobin ABG Potassium ABG Glucose VBG pH Oxyhemoglobin Sodium Potassium Chloride Carbon Dioxide BUN Creatinine Glucose 161 H POC Glucose Hemoglobin A1c Ferritin AST Lactate Dehydrogenase C-Reactive Protein Albumin Arterial Blood Glucose Coronavirus (PCR) Positive A 08/12/20 08/12/20 08/12/20 06:29 06:29 06:29 WBC Lymph % (Auto) [place] % (Auto) Lymph # (Auto) [place] # (Auto) Seg Neutrophils % Seg Neuts % (Manual) Lymphocytes % (Manual) Seg Neutrophils # Seg Neutrophils # Man Lymphocytes # (Manual) Monocytes # (Manual) D-Dimer 830.34 H ABG pH POC ABG pCO2 POC ABG pO2 ABG pO2 ABG HCO3 ABG O2 Saturation ABG Hemoglobin ABG Oxyhemoglobin ABG Potassium ABG Glucose VBG pH Oxyhemoglobin Sodium Potassium Chloride Carbon Dioxide 31 H BUN Creatinine Glucose 138 H POC Glucose Hemoglobin A1c Ferritin 572.6 H AST 42 H Lactate Dehydrogenase 706 H C-Reactive Protein 17.30 H Albumin 3.7 L Arterial Blood Glucose Coronavirus (PCR) 08/12/20 08/12/20 08/12/20 13:21 14:55 21:59 WBC Lymph % (Auto) [place] % (Auto) Lymph # (Auto) [place] # (Auto) Seg Neutrophils % Seg Neuts % (Manual) Lymphocytes % (Manual) Seg Neutrophils # Seg Neutrophils # Man Lymphocytes # (Manual) Monocytes # (Manual) D-Dimer ABG pH 7.315 L POC ABG pCO2 57.1 H POC ABG pO2 47.8 L ABG pO2 65.8 L ABG HCO3 31.4 H ABG O2 Saturation 91.7 L ABG Hemoglobin 19.3 H ABG Oxyhemoglobin ABG Potassium 4.9 H ABG Glucose 182 H VBG pH Oxyhemoglobin 89.7 L Sodium Potassium Chloride Carbon Dioxide BUN Creatinine Glucose POC Glucose 142 H Hemoglobin A1c Ferritin AST Lactate Dehydrogenase C-Reactive Protein Albumin Arterial Blood Glucose 182 H Coronavirus (PCR) 08/13/20 08/13/20 08/13/20 05:35 05:35 12:11 WBC 12.0 H Lymph % (Auto) 8.1 L [place] % (Auto) Lymph # (Auto) 1.0 L [place] # (Auto) Seg Neutrophils % 88.0 H Seg Neuts % (Manual) Lymphocytes % (Manual) Seg Neutrophils # 10.5 H Seg Neutrophils # Man Lymphocytes # (Manual) Monocytes # (Manual) D-Dimer ABG pH POC ABG pCO2 POC ABG pO2 ABG pO2 ABG HCO3 ABG O2 Saturation ABG Hemoglobin ABG Oxyhemoglobin ABG Potassium ABG Glucose VBG pH Oxyhemoglobin Sodium Potassium 5.1 H Chloride Carbon Dioxide 31 H BUN 25 H Creatinine Glucose 174 H POC Glucose 154 H Hemoglobin A1c Ferritin AST 41 H Lactate Dehydrogenase 996 H C-Reactive Protein Albumin 3.8 L Arterial Blood Glucose Coronavirus (PCR) 08/13/20 08/13/20 08/14/20 16:18 23:24 05:21 WBC 14.2 H Lymph % (Auto) 8.2 L [place] % (Auto) Lymph # (Auto) [place] # (Auto) 0.9 H Seg Neutrophils % 85.4 H Seg Neuts % (Manual) Lymphocytes % (Manual) Seg Neutrophils # 12.2 H Seg Neutrophils # Man Lymphocytes # (Manual) Monocytes # (Manual) D-Dimer ABG pH POC ABG pCO2 POC ABG pO2 ABG pO2 ABG HCO3 ABG O2 Saturation ABG Hemoglobin ABG Oxyhemoglobin ABG Potassium ABG Glucose VBG pH Oxyhemoglobin Sodium Potassium Chloride Carbon Dioxide BUN Creatinine Glucose POC Glucose 188 H 127 H Hemoglobin A1c Ferritin AST Lactate Dehydrogenase C-Reactive Protein Albumin Arterial Blood Glucose Coronavirus (PCR) 0308/14/20 08/14/20 05:21 05:21 05:21 WBC Lymph % (Auto) [place] % (Auto) Lymph # (Auto) [place] # (Auto) Seg Neutrophils % Seg Neuts % (Manual) Lymphocytes % (Manual) Seg Neutrophils # Seg Neutrophils # Man Lymphocytes # (Manual) Monocytes # (Manual) D-Dimer > 48071 H ABG pH POC ABG pCO2 POC ABG pO2 ABG pO2 ABG HCO3 ABG O2 Saturation ABG Hemoglobin ABG Oxyhemoglobin ABG Potassium ABG Glucose VBG pH Oxyhemoglobin Sodium Potassium Chloride Carbon Dioxide 32 H 33 H BUN 26 H 26 H Creatinine Glucose 152 H 156 H POC Glucose Hemoglobin A1c Ferritin AST 53 H 54 H Lactate Dehydrogenase 1249 H C-Reactive Protein 9.90 H Albumin 3.7 L 3.7 L Arterial Blood Glucose Coronavirus (PCR) 08/14/20 08/14/20 08/14/20 05:21 05:58 08:23 WBC Lymph % (Auto) [place] % (Auto) Lymph # (Auto) [place] # (Auto) Seg Neutrophils % Seg Neuts % (Manual) Lymphocytes % (Manual) Seg Neutrophils # Seg Neutrophils # Man Lymphocytes # (Manual) Monocytes # (Manual) D-Dimer ABG pH POC ABG pCO2 POC ABG pO2 50.0 L ABG pO2 ABG HCO3 ABG O2 Saturation ABG Hemoglobin ABG Oxyhemoglobin 84.0 L ABG Potassium ABG Glucose 141 H VBG pH Oxyhemoglobin Sodium Potassium Chloride Carbon Dioxide BUN Creatinine Glucose POC Glucose 139 H Hemoglobin A1c Ferritin 1198.0 H AST Lactate Dehydrogenase C-Reactive Protein Albumin Arterial Blood Glucose 141 H Coronavirus (PCR) 08/15/20 08/15/20 08/16/20 05:16 05:16 05:26 WBC 13.7 H 17.7 H Lymph % (Auto) 8.2 L [place] % (Auto) Lymph # (Auto) [place] # (Auto) Seg Neutrophils % 86.2 H Seg Neuts % (Manual) 91.0 H 88.0 H Lymphocytes % (Manual) 7.0 L 9.0 L Seg Neutrophils # 15.3 H Seg Neutrophils # Man 12.5 H 15.6 H Lymphocytes # (Manual) 1.0 L Monocytes # (Manual) D-Dimer ABG pH POC ABG pCO2 POC ABG pO2 ABG pO2 ABG HCO3 ABG O2 Saturation ABG Hemoglobin ABG Oxyhemoglobin ABG Potassium ABG Glucose VBG pH Oxyhemoglobin Sodium Potassium Chloride Carbon Dioxide 32 H BUN 29 H Creatinine Glucose 150 H POC Glucose Hemoglobin A1c Ferritin AST Lactate Dehydrogenase 1150 H C-Reactive Protein Albumin 3.5 L Arterial Blood Glucose Coronavirus (PCR) 08/16/20 08/16/20 08/16/20 05:26 05:26 05:26 WBC Lymph % (Auto) [place] % (Auto) Lymph # (Auto) [place] # (Auto) Seg Neutrophils % Seg Neuts % (Manual) Lymphocytes % (Manual) Seg Neutrophils # Seg Neutrophils # Man Lymphocytes # (Manual) Monocytes # (Manual) D-Dimer > 49450 H ABG pH POC ABG pCO2 POC ABG pO2 ABG pO2 ABG HCO3 ABG O2 Saturation ABG Hemoglobin ABG Oxyhemoglobin ABG Potassium ABG Glucose VBG pH Oxyhemoglobin Sodium Potassium 5.2 H Chloride Carbon Dioxide BUN 25 H Creatinine Glucose 163 H POC Glucose Hemoglobin A1c Ferritin 1013.0 H AST Lactate Dehydrogenase C-Reactive Protein 4.00 H Albumin 3.6 L Arterial Blood Glucose Coronavirus (PCR) 08/17/20 08/17/20 08/17/20 05:06 05:06 07:51 WBC 20.7 H Lymph % (Auto) [place] % (Auto) Lymph # (Auto) [place] # (Auto) Seg Neutrophils % Seg Neuts % (Manual) 86.0 H Lymphocytes % (Manual) 7.0 L Seg Neutrophils # Seg Neutrophils # Man 17.8 H Lymphocytes # (Manual) Monocytes # (Manual) 1.2 H D-Dimer ABG pH POC ABG pCO2 POC ABG pO2 ABG pO2 ABG HCO3 ABG O2 Saturation ABG Hemoglobin ABG Oxyhemoglobin ABG Potassium ABG Glucose VBG pH Oxyhemoglobin Sodium Potassium Chloride 96.5 L Carbon Dioxide 31 H BUN 29 H Creatinine Glucose 121 H POC Glucose 110 H Hemoglobin A1c Ferritin AST 46 H Lactate Dehydrogenase C-Reactive Protein Albumin 3.7 L Arterial Blood Glucose Coronavirus (PCR) 08/17/20 08/17/20 08/18/20 11:42 21:45 05:13 WBC Lymph % (Auto) [place] % (Auto) Lymph # (Auto) [place] # (Auto) Seg Neutrophils % Seg Neuts % (Manual) Lymphocytes % (Manual) Seg Neutrophils # Seg Neutrophils # Man Lymphocytes # (Manual) Monocytes # (Manual) D-Dimer > 1000 H ABG pH POC ABG pCO2 POC ABG pO2 ABG pO2 ABG HCO3 ABG O2 Saturation ABG Hemoglobin ABG Oxyhemoglobin ABG Potassium ABG Glucose VBG pH Oxyhemoglobin Sodium Potassium Chloride Carbon Dioxide BUN Creatinine Glucose POC Glucose 122 H 143 H Hemoglobin A1c Ferritin AST Lactate Dehydrogenase C-Reactive Protein Albumin Arterial Blood Glucose Coronavirus (PCR) 08/18/20 08/18/20 08/21/20 05:13 05:13 11:17 WBC Lymph % (Auto) [place] % (Auto) Lymph # (Auto) [place] # (Auto) Seg Neutrophils % Seg Neuts % (Manual) Lymphocytes % (Manual) Seg Neutrophils # Seg Neutrophils # Man Lymphocytes # (Manual) Monocytes # (Manual) D-Dimer ABG pH POC ABG pCO2 POC ABG pO2 ABG pO2 ABG HCO3 ABG O2 Saturation ABG Hemoglobin ABG Oxyhemoglobin ABG Potassium ABG Glucose VBG pH Oxyhemoglobin Sodium 133 L Potassium Chloride 94.7 L Carbon Dioxide BUN 33 H Creatinine Glucose 110 H POC Glucose 151 H Hemoglobin A1c Ferritin 979.8 H AST 50 H Lactate Dehydrogenase C-Reactive Protein Albumin 3.7 L Arterial Blood Glucose Coronavirus (PCR) 08/21/20 08/21/20 08/21/20 13:39 13:39 15:55 WBC Lymph % (Auto) [place] % (Auto) Lymph # (Auto) [place] # (Auto) Seg Neutrophils % Seg Neuts % (Manual) Lymphocytes % (Manual) Seg Neutrophils # Seg Neutrophils # Man Lymphocytes # (Manual) Monocytes # (Manual) D-Dimer 6731.66 H ABG pH POC ABG pCO2 POC ABG pO2 ABG pO2 ABG HCO3 ABG O2 Saturation ABG Hemoglobin ABG Oxyhemoglobin ABG Potassium ABG Glucose VBG pH Oxyhemoglobin Sodium Potassium Chloride Carbon Dioxide BUN Creatinine Glucose POC Glucose Hemoglobin A1c Ferritin 1019.0 H AST Lactate Dehydrogenase 1251 H C-Reactive Protein Albumin Arterial Blood Glucose Coronavirus (PCR) 08/22/20 08/22/20 05:23 05:23 WBC 24.7 H Lymph % (Auto) [place] % (Auto) Lymph # (Auto) [place] # (Auto) Seg Neutrophils % Seg Neuts % (Manual) Lymphocytes % (Manual) Seg Neutrophils # Seg Neutrophils # Man Lymphocytes # (Manual) Monocytes # (Manual) D-Dimer ABG pH POC ABG pCO2 POC ABG pO2 ABG pO2 ABG HCO3 ABG O2 Saturation ABG Hemoglobin ABG Oxyhemoglobin ABG Potassium ABG Glucose VBG pH Oxyhemoglobin Sodium 136 L Potassium Chloride 96.3 L Carbon Dioxide BUN 24 H Creatinine 0.7 L Glucose 115 H POC Glucose Hemoglobin A1c Ferritin AST Lactate Dehydrogenase C-Reactive Protein Albumin Arterial Blood Glucose Coronavirus (PCR)
--- NOTE | 2020-08-23 12:54 | XRay Report ---
CHEST 1 VIEW 08/23/2020 11:48 AM INDICATION / CLINICAL INFORMATION: worsening pne, pneumothorax. COMPARISON: 08/12/2020 FINDINGS: SUPPORT DEVICES: None. HEART / MEDIASTINUM: No significant abnormality. LUNGS / PLEURA: Diffuse bilateral pulmonary parenchymal opacities persist. No pneumothorax. ADDITIONAL FINDINGS: No significant additional findings. IMPRESSION: 1. No significant change. Signer Name: Bam Hull MD Signed: 08/23/2020 12:50 PM Workstation Name: [id number]
[2020-08-23] MEDS: ACETAMINOPHEN 325 MG TAB PO PRN (22:57)
[2020-08-24] MEDS ORDERED: FUROSEMIDE 20 MG/2 ML INJ IV NR (09:04)
--- NOTE | 2020-08-24 09:06 | Progress Note ---
Assessment and Plan 30 y/o morbidly obese male with acute respiratory failure secondary to COVID 19 pneumonia. now found to have DVT in lower ext. 08/24/20: Encouraged more proning. Continue BIpap QHS and PRN. unfortunately, no funding, patient would be a good LTACH candidate as he will likely take a long time to wean from HFNC. 08/23/20: No new recs. Proning is metcalf. Will continue to follow. Appreciate ID recs and help. 08/22/20: Bipap PRN and QHS. Will given lasix today. Prone as tolerated. PT continues. Slight improvement. Will continue to follow. 08/21/20: Bipap PRN and QHS. Hold on lasix today. Continue to prone as much as tolerated. Will order PT consult. 08/18/20: Bipap pRN and QHS. More lasix today. Prone as tolerated during the day and sleep prone at night. CONtinue to try to hold off on intubation. Guarded prognosis. 08/17/20: Continue anticoagulation. Still trying to prevent intubation however will do electively if and when needed to prevent and emergent situation as patient will likely be difficult given neck and body habitus. Continue prone as tolerated. Steroids and remdesivir. 08/16/20: Anticoagulation. Prone as tolerated. Wean bipap as tolerated. Prognosis remains guarded. Trying to prevent intubation given poor outcomes associated with mechanically ventilated obese COVID patients. 08/15/20: Continue therapeutic anticoagulation. No current indication for vascular consult given no evidence of right heart strain on echo. CT would only be beneficial if we thought it would show large enough clot to warrant EKOS and with no evidence of strain, I doubt that will be the case. Continue proning as much as tolerated. Spoke with mother over the phone to update her. Patient also got actemra on yesterday as well. Prognosis remains guarded 08/14/20: Will accept sats in the mid 80's as long as mental state and work of breathing do not change. AGree with lasix therapy. Found to have large DVT on right. Spoke with [facility] and asked them to order stat echo to look for right heart strain, and if present may need to consider echos. Await echo before vascular consult. Prone if possible. Long discussion with mother on phone. Gave her a list of the meds he is on and what our current plan is. Also very candid with her and son at bedside that the mortality rate with COVID is very very high. 08/13/20: Lasix again today. Continue to alternate between HFNC with NRB and bipap. Prognosis is very very guarded. Very very guarded to poor prognosis given CXR appearance, and body habitus, corinne ng with rapid decline in self sustaning oxygen levels. Agree with lasix and increase in steroids. Must prone. Very high likelihood for mechanical ventilation which would carry a high mortality for patient. Will continue to follow. No additional IVF's unless indicated. Subjective Date of service: 08/24/20 Principal diagnosis: COVID Interval history: Remains on HFNC at 100%. Last sat documented by RT was 88%. In chart it is 97%. I/O not accurate. Objective Vital Signs - 12hr 08/23/20 08/23/20 08/23/20 22:00 22:57 23:00 Temperature Pulse Rate 71 72 Respiratory 11 L 21 22 Rate Blood Pressure 100/45 114/59 O2 Sat by Pulse 92 90 Oximetry 08/24/20 08/24/20 08/24/20 00:00 01:00 02:00 Temperature 98.2 F Pulse Rate 83 75 73 Respiratory 24 11 L 10 L Rate Blood Pressure 111/70 107/51 113/73 O2 Sat by Pulse 95 98 93 Oximetry 08/24/20 08/24/20 08/24/20 03:00 04:00 04:14 Temperature 97.6 F Pulse Rate 69 74 66 Respiratory 11 L 17 Rate Blood Pressure 113/73 110/55 O2 Sat by Pulse 95 89 Oximetry 08/24/20 08/24/20 08/24/20 05:00 06:00 07:00 Temperature Pulse Rate 67 Respiratory 11 L Rate Blood Pressure 108/53 115/58 117/66 O2 Sat by Pulse 96 91 97 Oximetry CBC and BMP: 08/22/20 05:23 08/22/20 05:23 ABG, PT/INR, D-dimer: ABG ABG pH 7.443 (7.320-7.450) 08/14/20 08:23 POC ABG pCO2 46.9 mmHg (32.0-48.0) 08/14/20 08:23 ABG pCO2 62.9 mm Hg 08/12/20 14:55 POC ABG pO2 50.0 mmHg (83-108) L 08/14/20 08:23 ABG pO2 65.8 mm Hg (80.0-90.0) L 08/12/20 14:55 POC ABG HCO3 31.4 08/14/20 08:23 ABG O2 Saturation 85.0 (0-100) 08/14/20 08:23 PT/INR, D-dimer PT 12.6 Sec. (12.2-14.9) 08/10/20 08:29 INR 0.96 (0.87-1.13) 08/10/20 08:29 D-Dimer 6731.66 ng/mlDDU (0-234) H 08/21/20 15:55 Abnormal lab findings: Abnormal Labs 08/10/20 08/10/20 08/10/20 08:29 08:29 08:29 WBC Lymph % (Auto) [facility] % (Auto) 8.4 H Lymph # (Auto) [facility] # (Auto) Seg Neutrophils % Seg Neuts % (Manual) Lymphocytes % (Manual) Seg Neutrophils # Seg Neutrophils # Man Lymphocytes # (Manual) Monocytes # (Manual) D-Dimer ABG pH POC ABG pCO2 POC ABG pO2 ABG pO2 ABG HCO3 ABG O2 Saturation ABG Hemoglobin ABG Oxyhemoglobin ABG Potassium ABG Glucose VBG pH 7.303 L Oxyhemoglobin Sodium Potassium Chloride Carbon Dioxide BUN Creatinine Glucose 132 H POC Glucose Hemoglobin A1c Ferritin AST Lactate Dehydrogenase C-Reactive Protein Albumin Arterial Blood Glucose Coronavirus (PCR) 08/11/20 08/11/20 08/11/20 05:39 05:39 05:39 WBC Lymph % (Auto) 12.[address] [facility] % (Auto) Lymph # (Auto) [facility] # (Auto) Seg Neutrophils % 84.2 H Seg Neuts % (Manual) Lymphocytes % (Manual) Seg Neutrophils # 9.1 H Seg Neutrophils # Man Lymphocytes # (Manual) Monocytes # (Manual) D-Dimer ABG pH POC ABG pCO2 POC ABG pO2 ABG pO2 ABG HCO3 ABG O2 Saturation ABG Hemoglobin ABG Oxyhemoglobin ABG Potassium ABG Glucose VBG pH Oxyhemoglobin Sodium Potassium Chloride Carbon Dioxide BUN Creatinine Glucose 125 H POC Glucose Hemoglobin A1c 6.1 H Ferritin AST Lactate Dehydrogenase C-Reactive Protein Albumin Arterial Blood Glucose Coronavirus (PCR) 08/11/20 08/11/2008/11/21 18:58 18:58 18:58 WBC Lymph % (Auto) [facility] % (Auto) Lymph # (Auto) [facility] # (Auto) Seg Neutrophils % Seg Neuts % (Manual) Lymphocytes % (Manual) Seg Neutrophils # Seg Neutrophils # Man Lymphocytes # (Manual) Monocytes # (Manual) D-Dimer 464.84 H ABG pH POC ABG pCO2 POC ABG pO2 ABG pO2 ABG HCO3 ABG O2 Saturation ABG Hemoglobin ABG Oxyhemoglobin ABG Potassium ABG Glucose VBG pH Oxyhemoglobin Sodium Potassium Chloride Carbon Dioxide BUN Creatinine Glucose POC Glucose Hemoglobin A1c Ferritin 528.7 H AST Lactate Dehydrogenase 637 H C-Reactive Protein 11.30 H Albumin Arterial Blood Glucose Coronavirus (PCR) 08/11/20 08/11/20 08/12/20 19:08 Unknown 06:29 WBC 11.2 H Lymph % (Auto) 8.[address] [facility] % (Auto) Lymph # (Auto) 1.[address] [facility] # (Auto) Seg Neutrophils % 88.3 H Seg Neuts % (Manual) Lymphocytes % (Manual) Seg Neutrophils # 9.8 H Seg Neutrophils # Man Lymphocytes # (Manual) Monocytes # (Manual) D-Dimer ABG pH POC ABG pCO2 POC ABG pO2 ABG pO2 ABG HCO3 ABG O2 Saturation ABG Hemoglobin ABG Oxyhemoglobin ABG Potassium ABG Glucose VBG pH Oxyhemoglobin Sodium Potassium Chloride Carbon Dioxide BUN Creatinine Glucose 161 H POC Glucose Hemoglobin A1c Ferritin AST Lactate Dehydrogenase C-Reactive Protein Albumin Arterial Blood Glucose Coronavirus (PCR) Positive A 08/12/20 08/12/20 08/12/20 06:29 06:29 06:29 WBC Lymph % (Auto) [facility] % (Auto) Lymph # (Auto) [facility] # (Auto) Seg Neutrophils % Seg Neuts % (Manual) Lymphocytes % (Manual) Seg Neutrophils # Seg Neutrophils # Man Lymphocytes # (Manual) Monocytes # (Manual) D-Dimer 830.34 H ABG pH POC ABG pCO2 POC ABG pO2 ABG pO2 ABG HCO3 ABG O2 Saturation ABG Hemoglobin ABG Oxyhemoglobin ABG Potassium ABG Glucose VBG pH Oxyhemoglobin Sodium Potassium Chloride Carbon Dioxide 31 H BUN Creatinine Glucose 138 H POC Glucose Hemoglobin A1c Ferritin 572.6 H AST 42 H Lactate Dehydrogenase 706 H C-Reactive Protein 17.30 H Albumin 3.7 L Arterial Blood Glucose Coronavirus (PCR) 08/12/20 08/12/20 08/12/20 13:21 14:55 21:59 WBC Lymph % (Auto) [facility] % (Auto) Lymph # (Auto) [facility] # (Auto) Seg Neutrophils % Seg Neuts % (Manual) Lymphocytes % (Manual) Seg Neutrophils # Seg Neutrophils # Man Lymphocytes # (Manual) Monocytes # (Manual) D-Dimer ABG pH 7.315 L POC ABG pCO2 57.1 H POC ABG pO2 47.8 L ABG pO2 65.8 L ABG HCO3 31.4 H ABG O2 Saturation 91.7 L ABG Hemoglobin 19.3 H ABG Oxyhemoglobin ABG Potassium 4.9 H ABG Glucose 182 H VBG pH Oxyhemoglobin 89.7 L Sodium Potassium Chloride Carbon Dioxide BUN Creatinine Glucose POC Glucose 142 H Hemoglobin A1c Ferritin AST Lactate Dehydrogenase C-Reactive Protein Albumin Arterial Blood Glucose 182 H Coronavirus (PCR) 08/13/20 08/13/20 08/13/20 05:35 05:35 12:11 WBC 12.0 H Lymph % (Auto) 8.[address] [facility] % (Auto) Lymph # (Auto) 1.[address] [facility] # (Auto) Seg Neutrophils % 88.0 H Seg Neuts % (Manual) Lymphocytes % (Manual) Seg Neutrophils # 10.5 H Seg Neutrophils # Man Lymphocytes # (Manual) Monocytes # (Manual) D-Dimer ABG pH POC ABG pCO2 POC ABG pO2 ABG pO2 ABG HCO3 ABG O2 Saturation ABG Hemoglobin ABG Oxyhemoglobin ABG Potassium ABG Glucose VBG pH Oxyhemoglobin Sodium Potassium 5.1 H Chloride Carbon Dioxide 31 H BUN 25 H Creatinine Glucose 174 H POC Glucose 154 H Hemoglobin A1c Ferritin AST 41 H Lactate Dehydrogenase 996 H C-Reactive Protein Albumin 3.8 L Arterial Blood Glucose Coronavirus (PCR) 08/13/20 08/13/20 08/14/20 16:18 23:24 05:21 WBC 14.2 H Lymph % (Auto) 8.[address] [facility] % (Auto) Lymph # (Auto) [facility] # (Auto) 0.9 H Seg Neutrophils % 85.4 H Seg Neuts % (Manual) Lymphocytes % (Manual) Seg Neutrophils # 12.2 H Seg Neutrophils # Man Lymphocytes # (Manual) Monocytes # (Manual) D-Dimer ABG pH POC ABG pCO2 POC ABG pO2 ABG pO2 ABG HCO3 ABG O2 Saturation ABG Hemoglobin ABG Oxyhemoglobin ABG Potassium ABG Glucose VBG pH Oxyhemoglobin Sodium Potassium Chloride Carbon Dioxide BUN Creatinine Glucose POC Glucose 188 H 127 H Hemoglobin A1c Ferritin AST Lactate Dehydrogenase C-Reactive Protein Albumin Arterial Blood Glucose Coronavirus (PCR) 08/14/20 08/14/20 08/14/20 05:21 05:21 05:21 WBC Lymph % (Auto) [facility] % (Auto) Lymph # (Auto) [facility] # (Auto) Seg Neutrophils % Seg Neuts % (Manual) Lymphocytes % (Manual) Seg Neutrophils # Seg Neutrophils # Man Lymphocytes # (Manual) Monocytes # (Manual) D-Dimer > 42674 H ABG pH POC ABG pCO2 POC ABG pO2 ABG pO2 ABG HCO3 ABG O2 Saturation ABG Hemoglobin ABG Oxyhemoglobin ABG Potassium ABG Glucose VBG pH Oxyhemoglobin Sodium Potassium Chloride Carbon Dioxide 32 H 33 H BUN 26 H 26 H Creatinine Glucose 152 H 156 H POC Glucose Hemoglobin A1c Ferritin AST 53 H 54 H Lactate Dehydrogenase 1249 H C-Reactive Protein 9.90 H Albumin 3.7 L 3.7 L Arterial Blood Glucose Coronavirus (PCR) 08/14/20 08/14/20 08/14/20 05:21 05:58 08:23 WBC Lymph % (Auto) [facility] % (Auto) Lymph # (Auto) [facility] # (Auto) Seg Neutrophils % Seg Neuts % (Manual) Lymphocytes % (Manual) Seg Neutrophils # Seg Neutrophils # Man Lymphocytes # (Manual) Monocytes # (Manual) D-Dimer ABG pH POC ABG pCO2 POC ABG pO2 50.0 L ABG pO2 ABG HCO3 ABG O2 Saturation ABG Hemoglobin ABG Oxyhemoglobin 84.0 L ABG Potassium ABG Glucose 141 H VBG pH Oxyhemoglobin Sodium Potassium Chloride Carbon Dioxide BUN Creatinine Glucose POC Glucose 139 H Hemoglobin A1c Ferritin 1198.0 H AST Lactate Dehydrogenase C-Reactive Protein Albumin Arterial Blood Glucose 141 H Coronavirus (PCR) 08/15/20 08/15/20 08/16/20 05:16 05:16 05:26 WBC 13.7 H 17.7 H Lymph % (Auto) 8.[address] [facility] % (Auto) Lymph # (Auto) [facility] # (Auto) Seg Neutrophils % 86.2 H Seg Neuts % (Manual) 91.0 H 88.0 H Lymphocytes % (Manual) 7.0 L 9.0 L Seg Neutrophils # 15.3 H Seg Neutrophils # Man 12.5 H 15.6 H Lymphocytes # (Manual) 1.0 L Monocytes # (Manual) D-Dimer ABG pH POC ABG pCO2 POC ABG pO2 ABG pO2 ABG HCO3 ABG O2 Saturation ABG Hemoglobin ABG Oxyhemoglobin ABG Potassium ABG Glucose VBG pH Oxyhemoglobin Sodium Potassium Chloride Carbon Dioxide 32 H BUN 29 H Creatinine Glucose 150 H POC Glucose Hemoglobin A1c Ferritin AST Lactate Dehydrogenase 1150 H C-Reactive Protein Albumin 3.5 L Arterial Blood Glucose Coronavirus (PCR) 08/16/20 08/16/20 08/16/20 05:26 05:26 05:26 WBC Lymph % (Auto) [facility] % (Auto) Lymph # (Auto) [facility] # (Auto) Seg Neutrophils % Seg Neuts % (Manual) Lymphocytes % (Manual) Seg Neutrophils # Seg Neutrophils # Man Lymphocytes # (Manual) Monocytes # (Manual) D-Dimer > 41777 H ABG pH POC ABG pCO2 POC ABG pO2 ABG pO2 ABG HCO3 ABG O2 Saturation ABG Hemoglobin ABG Oxyhemoglobin ABG Potassium ABG Glucose VBG pH Oxyhemoglobin Sodium Potassium 5.2 H Chloride Carbon Dioxide BUN 25 H Creatinine Glucose 163 H POC Glucose Hemoglobin A1c Ferritin 1013.0 H AST Lactate Dehydrogenase C-Reactive Protein 4.00 H Albumin 3.6 L Arterial Blood Glucose Coronavirus (PCR) 08/17/20 08/17/20 08/17/20 05:06 05:06 07:51 WBC 20.7 H Lymph % (Auto) [facility] % (Auto) Lymph # (Auto) [facility] # (Auto) Seg Neutrophils % Seg Neuts % (Manual) 86.0 H Lymphocytes % (Manual) 7.0 L Seg Neutrophils # Seg Neutrophils # Man 17.8 H Lymphocytes # (Manual) Monocytes # (Manual) 1.2 H D-Dimer ABG pH POC ABG pCO2 POC ABG pO2 ABG pO2 ABG HCO3 ABG O2 Saturation ABG Hemoglobin ABG Oxyhemoglobin ABG Potassium ABG Glucose VBG pH Oxyhemoglobin Sodium Potassium Chloride 96.5 L Carbon Dioxide 31 H BUN 29 H Creatinine Glucose 121 H POC Glucose 110 H Hemoglobin A1c Ferritin AST 46 H Lactate Dehydrogenase C-Reactive Protein Albumin 3.7 L Arterial Blood Glucose Coronavirus (PCR) 08/17/20 08/17/2021 11:42 21:45 05:13 WBC Lymph % (Auto) [facility] % (Auto) Lymph # (Auto) [facility] # (Auto) Seg Neutrophils % Seg Neuts % (Manual) Lymphocytes % (Manual) Seg Neutrophils # Seg Neutrophils # Man Lymphocytes # (Manual) Monocytes # (Manual) D-Dimer > 1000 H ABG pH POC ABG pCO2 POC ABG pO2 ABG pO2 ABG HCO3 ABG O2 Saturation ABG Hemoglobin ABG Oxyhemoglobin ABG Potassium ABG Glucose VBG pH Oxyhemoglobin Sodium Potassium Chloride Carbon Dioxide BUN Creatinine Glucose POC Glucose 122 H 143 H Hemoglobin A1c Ferritin AST Lactate Dehydrogenase C-Reactive Protein Albumin Arterial Blood Glucose Coronavirus (PCR) 08/18/20 08/18/20 08/21/20 05:13 05:13 11:17 WBC Lymph % (Auto) [facility] % (Auto) Lymph # (Auto) [facility] # (Auto) Seg Neutrophils % Seg Neuts % (Manual) Lymphocytes % (Manual) Seg Neutrophils # Seg Neutrophils # Man Lymphocytes # (Manual) Monocytes # (Manual) D-Dimer ABG pH POC ABG pCO2 POC ABG pO2 ABG pO2 ABG HCO3 ABG O2 Saturation ABG Hemoglobin ABG Oxyhemoglobin ABG Potassium ABG Glucose VBG pH Oxyhemoglobin Sodium 133 L Potassium Chloride 94.7 L Carbon Dioxide BUN 33 H Creatinine Glucose 110 H POC Glucose 151 H Hemoglobin A1c Ferritin 979.8 H AST 50 H Lactate Dehydrogenase C-Reactive Protein Albumin 3.7 L Arterial Blood Glucose Coronavirus (PCR) 08/21/20 08/21/20 08/21/20 13:39 13:39 15:55 WBC Lymph % (Auto) [facility] % (Auto) Lymph # (Auto) [facility] # (Auto) Seg Neutrophils % Seg Neuts % (Manual) Lymphocytes % (Manual) Seg Neutrophils # Seg Neutrophils # Man Lymphocytes # (Manual) Monocytes # (Manual) D-Dimer 6731.66 H ABG pH POC ABG pCO2 POC ABG pO2 ABG pO2 ABG HCO3 ABG O2 Saturation ABG Hemoglobin ABG Oxyhemoglobin ABG Potassium ABG Glucose VBG pH Oxyhemoglobin Sodium Potassium Chloride Carbon Dioxide BUN Creatinine Glucose POC Glucose Hemoglobin A1c Ferritin 1019.0 H AST Lactate Dehydrogenase 1251 H C-Reactive Protein Albumin Arterial Blood Glucose Coronavirus (PCR) 08/22/20 08/22/20 05:23 05:23 WBC 24.7 H Lymph % (Auto) [facility] % (Auto) Lymph # (Auto) [facility] # (Auto) Seg Neutrophils % Seg Neuts % (Manual) Lymphocytes % (Manual) Seg Neutrophils # Seg Neutrophils # Man Lymphocytes # (Manual) Monocytes # (Manual) D-Dimer ABG pH POC ABG pCO2 POC ABG pO2 ABG pO2 ABG HCO3 ABG O2 Saturation ABG Hemoglobin ABG Oxyhemoglobin ABG Potassium ABG Glucose VBG pH Oxyhemoglobin Sodium 136 L Potassium Chloride 96.3 L Carbon Dioxide BUN 24 H Creatinine 0.7 L Glucose 115 H POC Glucose Hemoglobin A1c Ferritin AST Lactate Dehydrogenase C-Reactive Protein Albumin Arterial Blood Glucose Coronavirus (PCR)
[2020-08-24] MEDS: ZINC SULFATE 220 MG CAP PO SCH (09:24)
[2020-08-24] MEDS: FAMOTIDINE 20 MG/2 ML INJ IV SCH ×2 (09:24→22:07)
[2020-08-24] MEDS: APIXABAN 5 MG TAB PO SCH ×2 (09:24→22:07)
[2020-08-24] MEDS: ASCORBIC ACID 500 MG TAB PO SCH ×2 (09:24→22:07)
--- NOTE | 2020-08-24 12:36 | Progress Note ---
Assessment and Plan Cultures: Blood culture 08/10/2020 no growth SARS CoV2 PCR positive 08/10/2020 urine culture: No growth Assessment: 30 years old male with history of morbid obesity, admitted on 08/10/2020 secondary to 3-day history of intermittent frontal headache: #Leukocytosis: worsening likely due to steroids, repeat procalcitonin level is low #Severe COVID19 pneumonia: On steroids, completed remdesivir. S/P actemra on 08/14/2020. Completed empiric abx course. Procal is low, additional abx not needed. CXR not significant change. Ferritin and LDH up. #Acute hypoxemic respiratory failure: severe, on HFNC/BIPAP 100% #Acute right leg DVT, very high d-dimer. On anticoagulation. #LONNY: Resolved #Morbid obesity: Associated with worse outcomes Recommendations: -Completed steroids -S/P remdesivir, actemra -Monitor inflammatory markers - ferritin, Ddimer, CRP, LDH in 3 days -continue anticoagulation for DVT/Eliquis -prone positioning whenever possible -pulm on board Guarded prognosis, will require prolonged recovery Jaylyn Doe MD Infectious Diseases [employer] [facility] [phone] [id number] [phone] Subjective Principal diagnosis: COVID Objective - Constitutional Vitals: Vital Signs Temp Pulse Resp BP Pulse Ox 99.4 F 89 19 125/54 89 08/24/20 08:00 08/24/20 12:00 08/24/20 12:00 08/24/20 12:00 08/24/20 12:00 Temperature -Last 24 Hours Temperature 99.4 F Temperature 97.6 F Temperature 98.2 F Temperature 98.2 F Temperature 98.4 F - Labs CBC & Chem 7: 08/22/20 05:23 08/22/20 05:23
--- NOTE | 2020-08-24 17:07 | Progress Note ---
Assessment and Plan Assessment and plan: --Acute hypoxic respiratory failure secondary to COVID-19 PNA Patient remains on high flow oxygen 40/100/94 intermittent BiPAP Home O2 evaluation at discharge --COVID-19 Pneumonia Continue antibiotics Continue steroids total 10 days s/p Remdesivir s/p tocilizumab Oxygen supplementation with BiPAP Trend inflammatory markers Prone positioning strongly advised ID and pulmonology following --Right lower extremity DVT D-dimer more than 10,000 US shows RLE DVT. Echocardiogram shows no right heart strain. DC Lovenox, transition to Eliquis --Sinus bradycardia Likely from remdesivir Heart rate in 60s and 70s today TSH wnl --Morbid obesity Diet and exercise advised Patient needs outpatient bariatric surgical/medical weight reduction consult when medically stable --DVT prophylaxis-Lovenox Continues to be on high flow oxygen Wean as tolerated We will closely monitor the patient and adjust management as needed Bereavement Coordinator recommendations noted and appreciated Plan of care reviewed with the patient and his nurse and the case management Brief history 30-year-old male with morbid obesity weighing about 310 pounds comes in for intermittent frontal headache for 3 days. In the emergency room patient was very hypoxic but denies shortness of breath or cough. No muscle aches. His oxygen levels are mid 80s. Denies smoking. Work-up in the emergency room showed bilateral patchy opacities in the lungs and hypoxia-hence he was admitted for bilateral pneumonia and possible Covid pneumonia. No significant past medical history 08/11. Patient seen examined at bedside this morning. Has no complaints. Febrile this a.m.-103 Fahrenheit. On Tylenol as needed. COVID-19 test ordered. Remains on steroids. ID consult if COVID-19 is positive. 08/12. His COVID-19 test is positive. He was started on remdesivir last night. Oxygen requirement increased overnight. Inflammatory markers increasing. Repeat chest xray shows worsening infiltrates. Ordered BNP. Lasix 40mg IV ordered. Increased dexamethasone to 6mg BID. Pulmonology consulted. Will place on continuous pulse oximetry. Incentive spirometer ordered. Advised prone positioning. 08/13. Not feeling better. Seen on BIPAP. Remains on steroids, remdesivir and antibiotics. Vitals stable. 08/14. Still maintaining sats even on BiPAP. Lasix 40 mg IV ordered. D-dimer this a.m. is more than 10,000. Lovenox increased to 150 mg twice daily. Ultrasound lower extremities Doppler showed a right DVT. Echocardiogram ordered to rule out right heart strain. Pending results, patient may need vascular surgery evaluation for possible thrombectomy. Continue on BiPAP and continue to monitor respiratory status closely. 08/15. Sats better this AM. Received toculizumab yesterday. Advised him to prone as much as possible. Echo shows normal EF with no right heart strain. I/Os reviewed. He is diuresing well. Renal function is stable. Will give additional lasix today. Pulmonology following 08/16. Remains on remdesivir. Still on BIPAP. Will give lasix 20mg IV. HR is low - likley effect of remdesivir. Will continue to monitor closely 08/17. Sats in the 90's this AM. Still on BIPAP. 08/18; patient remains hypoxic requiring BiPAP and 100% nonrebreather intermittently 08/19; Continue supportive care, wean oxygen as tolerated. Encouraged PRONE positioning if able to tolerate. 08/20:Remains on BiPAP. continue lasix, still not proninig, encouraged to prone, FIO2 down to 90% with sat of 96%. Continue care, prognosis still guarded. 08/21: Patient down on high flow. Continue to encourage proning position. Still with guarded prognosis. Elevation in WBC noted to 20 this could be secondary to steroids I will continue to monitor. No fever noted at this time. Patient's respiratory status has stabilized on the high flow with no shallow breathing noted Discussed with the nurse at bedside 08/22; DC Lovenox therapeutic dose, start Eliquis per protocol to treat lower extremity DVT. 08/23; patient remains on high flow oxygen 40 L/100 FiO2/94% O2 sats, intermittent BiPAP 08/24; patient remains on high flow oxygen and BiPAP, consultants recommendations noted and appreciated The high probability of a clinically significant, sudden or life threatening deterioration of the [pulmonary] system(s) required my full and direct attention, intervention and personal management. The aggregate critical care time was [35] minutes. This time is in addition to time spent performing reported procedures but includes the following: [x] Data Review and interpretation [x] Patient assessment and monitoring of vital signs [x] Documentation [x] Medication orders and management History Interval history: I have seen and examined the patient at the bedside in [facility] Isolation precautions and PPE protocols strictly followed per COVID-19 guidelines Patient is alert and awake feels better However continues to be on high flow oxygen 40 L/100% FiO2/93% O2 sats Morbidly obese, in mild distress Vital signs noted Hospitalist Physical - Constitutional Vitals: Temp Pulse Resp BP Pulse Ox 99.9 F H 78 19 132/79 89 08/24/20 12:00 08/24/20 16:00 08/24/20 16:00 08/24/20 16:00 08/24/20 16:00 General appearance: Present: no acute distress, well-nourished, obese (Morbidly obese) - EENT Eyes: Present: PERRL, EOM intact - Neck Neck: Present: supple, normal ROM - Respiratory Respiratory effort: normal Respiratory: bilateral: diminished, rhonchi, negative: rales, wheezing - Cardiovascular Rhythm: regular Heart Sounds: Present: S1 & S2 - Extremities Extremities: no ischemia, No edema - Abdominal General gastrointestinal: soft, non-tender, non-distended, normal bowel sounds - Integumentary Integumentary: Present: clear, warm - Psychiatric Psychiatric: appropriate mood/affect, cooperative - Neurologic Neurologic: CNII-XII intact, moves all extremities Results - Labs CBC & Chem 7: 08/22/20 05:23 08/22/20 05:23 Labs: Laboratory Last Values WBC 24.7 K/mm3 (4.5-11.0) H 08/22/20 05:23 RBC 4.79 M/mm3 (3.65-5.03) 08/22/20 05:23 Hgb 13.8 gm/dl (11.8-15.2) 08/22/20 05:23 Hct 41.9 % (35.5-45.6) 08/22/20 05:23 MCV 88 fl (84-94) 08/22/20 05:23 MCH 29 pg (28-32) 08/22/20 05:23 MCHC 33 % (32-34) 08/22/20 05:23 RDW 13.7 % (13.2-15.2) 08/22/20 05:23 Plt Count 371 K/mm3 (140-440) 08/22/20 05:23 Lymph % (Auto) 8.2 % (13.4-35.0) L 08/16/20 05:26 [place] % (Auto) 4.7 % (0.0-7.3) 08/16/20 05:26 Eos % (Auto) 0.2 % (0.0-4.3) 08/16/20 05:26 Baso % (Auto) 0.7 % (0.0-1.8) 08/16/20 05:26 Lymph # (Auto) 1.5 K/mm3 (1.2-5.4) 08/16/20 05:26 [place] # (Auto) 0.8 K/mm3 (0.0-0.8) 08/16/20 05:26 Eos # (Auto) 0.0 K/mm3 (0.0-0.4) 08/16/20 05:26 Baso # (Auto) 0.1 K/mm3 (0.0-0.1) 08/16/20 05:26 Add Manual Diff Complete 08/17/20 05:06 Total Counted 100 08/17/20 05:06 Seg Neutrophils % 86.2 % (40.0-70.0) H 08/16/20 05:26 Seg Neuts % (Manual) 86.0 % (40.0-70.0) H 08/17/20 05:06 Lymphocytes % (Manual) 7.0 % (13.4-35.0) L 08/17/20 05:06 Monocytes % (Manual) 6.0 % (0.0-7.3) 08/17/20 05:06 Eosinophils % (Manual) 1.0 % (0.0-4.3) 08/17/20 05:06 Metamyelocytes % 2.0 % 08/15/20 05:16 Nucleated RBC % Not Reportable 08/17/20 05:06 Seg Neutrophils # 15.3 K/mm3 (1.8-7.7) H 08/16/20 05:26 Seg Neutrophils # Man 17.8 K/mm3 (1.8-7.7) H 08/17/20 05:06 Band Neutrophils # 0.0 K/mm3 08/17/20 05:06 Lymphocytes # (Manual) 1.4 K/mm3 (1.2-5.4) 08/17/20 05:06 Abs React Lymphs (Man) 0.0 K/mm3 08/17/20 05:06 Monocytes # (Manual) 1.2 K/mm3 (0.0-0.8) H 08/17/20 05:06 Eosinophils # (Manual) 0.2 K/mm3 (0.0-0.4) 08/17/20 05:06 Basophils # (Manual) 0.0 K/mm3 (0.0-0.1) 08/17/20 05:06 Metamyelocytes # 0.0 K/mm3 08/17/20 05:06 Myelocytes # 0.0 K/mm3 08/17/20 05:06 Promyelocytes # 0.0 K/mm3 08/17/20 05:06 Blast Cells # 0.0 K/mm3 08/17/20 05:06 WBC Morphology Not Reportable 08/17/20 05:06 Hypersegmented Neuts Not Reportable 08/17/20 05:06 Hyposegmented Neuts Not Reportable 08/17/20 05:06 Hypogranular Neuts Not Reportable 08/17/20 05:06 Smudge Cells Not Reportable 08/17/20 05:06 Toxic Granulation Not Reportable 08/17/20 05:06 Toxic Vacuolation Not Reportable 08/17/20 05:06 Dohle Bodies Not Reportable 08/17/20 05:06 Pelger-Huet Anomaly Not Reportable 08/17/20 05:06 Juan Luis Rods Not Reportable 08/17/20 05:06 Platelet Estimate Consistent w auto 08/17/20 05:06 Clumped Platelets Not Reportable 08/17/20 05:06 Plt Clumps, EDTA Not Reportable 08/17/20 05:06 Large Platelets Not Reportable 08/17/20 05:06 Giant Platelets Not Reportable 08/17/20 05:06 Platelet Satelliting Not Reportable 08/17/20 05:06 Plt Morphology Comment Not Reportable 08/17/20 05:06 RBC Morphology Not Reportable 08/17/20 05:06 Dimorphic RBCs Not Reportable 08/17/20 05:06 Polychromasia Not Reportable 08/17/20 05:06 Hypochromasia Not Reportable 08/17/20 05:06 Poikilocytosis Not Reportable 08/17/20 05:06 Anisocytosis Few 08/17/20 05:06 Microcytosis Not Reportable 08/17/20 05:06 Macrocytosis Not Reportable 08/17/20 05:06 Spherocytes Not Reportable 08/17/20 05:06 Pappenheimer Bodies Not Reportable 08/17/20 05:06 Sickle Cells Not Reportable 08/17/20 05:06 Target Cells Not Reportable 08/17/20 05:06 Tear Drop Cells Not Reportable 08/17/20 05:06 Ovalocytes Not Reportable 08/17/20 05:06 Helmet Cells Not Reportable 08/17/20 05:06 [place] Bodies Not Reportable 08/17/20 05:06 Morenci Rings Not Reportable 08/17/20 05:06 [place] Cells Not Reportable 08/17/20 05:06 Bite Cells Not Reportable 08/17/20 05:06 Crenated Cell Not Reportable 08/17/20 05:06 Elliptocytes Not Reportable 08/17/20 05:06 Acanthocytes (Spur) Not Reportable 08/17/20 05:06 Rouleaux Not Reportable 08/17/20 05:06 Hemoglobin C Crystals Not Reportable 08/17/20 05:06 Schistocytes Not Reportable 08/17/20 05:06 Malaria parasites Not Reportable 08/17/20 05:06 Asif Bodies Not Reportable 08/17/20 05:06 Hem Pathologist Commnt No 08/17/20 05:06 PT 12.6 Sec. (12.2-14.9) 08/10/20 08:29 INR 0.96 (0.87-1.13) 08/10/20 08:29 D-Dimer 6731.66 ng/mlDDU (0-234) H 08/21/20 15:55 ABG pH 7.443 (7.320-7.450) 08/14/20 08:23 POC ABG pCO2 46.9 mmHg (32.0-48.0) 08/14/20 08:23 ABG pCO2 62.9 mm Hg 08/12/20 14:55 POC ABG pO2 50.0 mmHg (83-108) L 08/14/20 08:23 ABG pO2 65.8 mm Hg (80.0-90.0) L 08/12/20 14:55 POC ABG HCO3 31.4 08/14/20 08:23 ABG HCO3 31.4 mmol/L (20.0-26.0) H 08/12/20 14:55 ABG O2 Saturation 85.0 (0-100) 08/14/20 08:23 ABG O2 Content 24.3 (0.0-44) 08/12/20 14:55 POC ABG Base Excess 6.3 08/14/20 08:23 ABG Base Excess 2.6 mmol/L (-2.0-3.0) 08/12/20 14:55 ABG Hemoglobin 13.4 (12.0-17.5) 08/14/20 08:23 ABG Oxyhemoglobin 84.0 (94-98) L 08/14/20 08:23 ABG Carboxyhemoglobin 1.7 % (0.0-5.0) 08/12/20 14:55 ABG Methemoglobin 0.3 (0.0-1.5) 08/14/20 08:23 ABG Sodium 139.2 mmol/L (136.0-145.0) 08/14/20 08:23 ABG Potassium 4.5 mmol/L (3.40-4.50) 08/14/20 08:23 ABG Chloride 99.0 mmol/L (98-107) 08/14/20 08:23 ABG Glucose 141 mg/dL (65-95) H 08/14/20 08:23 VBG pH 7.303 (7.320-7.420) L 08/10/20 08:29 Oxyhemoglobin 89.7 % (95.0-99.0) L 08/12/20 14:55 Carboxyhemoglobin 0.9 (0.5-1.5) 08/14/20 08:23 FiO2 60 % 08/12/20 14:55 FiO2 % 100 08/14/20 08:23 Sodium 136 mmol/L (137-145) L 08/22/20 05:23 Potassium 5.0 mmol/L (3.6-5.0) 08/22/20 05:23 Chloride 96.3 mmol/L (98-107) L 08/22/20 05:23 Carbon Dioxide 28 mmol/L (22-30) 08/22/20 05:23 Anion Gap 17 mmol/L 08/22/20 05:23 BUN 24 mg/dL (9-20) H 08/22/20 05:23 Creatinine 0.7 mg/dL (0.8-1.3) L 08/22/20 05:23 Estimated GFR > 60 ml/min 08/22/20 05:23 BUN/Creatinine Ratio 34 % 08/22/20 05:23 Glucose 115 mg/dL (75-100) H 08/22/20 05:23 POC Glucose 151 mg/dL (70-105) H 08/21/20 11:17 Hemoglobin A1c 6.1 % (4-6) H 08/11/20 05:39 Lactic Acid 0.80 mmol/L (0.7-2.0) 08/10/20 11:18 Calcium 9.1 mg/dL (8.4-10.2) 08/22/20 05:23 Ferritin 1019.0 ng/mL (30.0-300.0) H 08/21/20 13:39 Total Bilirubin 0.50 mg/dL (0.1-1.2) 08/18/20 05:13 AST 50 units/L (5-40) H 08/18/20 05:13 ALT 50 units/L (7-56) 08/18/20 05:13 Alkaline Phosphatase 103 units/L (35-129) 08/18/20 05:13 Lactate Dehydrogenase 1251 units/L (91-180) H 08/21/20 13:39 C-Reactive Protein 0.30 mg/dL (0.00-1.30) 08/21/20 13:39 NT-Pro-B Natriuret Pep 36.40 pg/mL (0-450) 08/12/20 06:29 Total Protein 6.9 g/dL (6.3-8.2) 08/18/20 05:13 Albumin 3.7 g/dL (3.9-5) L 08/18/20 05:13 Albumin/Globulin Ratio 1.1 % 08/18/20 05:13 Procalcitonin 0.08 ng/mL (<0.15) 08/21/20 13:39 TSH 1.830 mlU/mL (0.270-4.200) 08/17/20 05:06 Free T4 1.01 ng/dL (0.76-1.46) 08/17/20 05:06 Arterial Blood Glucose 141 mg/dL (65-95) H 08/14/20 08:23 Arterial Blood Ionized Calcium 4.8 mg/dL (4.6-5.3) 08/14/20 08:23 Urine Color Yellow (Yellow) 08/10/20 Unknown Urine Turbidity Cloudy (Clear) 08/10/20 Unknown Urine pH 5.0 (5.0-7.0) 08/10/20 Unknown Ur Specific [place] 1.025 (1.003-1.030) 08/10/20 Unknown Urine Protein 30 mg/dl mg/dL (Negative) 08/10/20 Unknown Urine Glucose (UA) 150 mg/dL (Negative) 08/10/20 Unknown Urine Ketones Negative mg/dL (Negative) 08/10/20 Unknown Urine Blood Negative (Negative) 08/10/20 Unknown Urine Nitrite Negative (Negative) 08/10/20 Unknown Urine Bilirubin Negative (Negative) 08/10/20 Unknown Urine Urobilinogen < 2.0 mg/dL (<2.0) 08/10/20 Unknown Ur Leukocyte Esterase Negative (Negative) 08/10/20 Unknown Urine WBC (Auto) 5.0 /HPF (0.0-6.0) 08/10/20 Unknown Urine RBC (Auto) 2.0 /HPF (0.0-6.0) 08/10/20 Unknown U Epithel Cells (Auto) 1.0 /HPF (0-13.0) 08/10/20 Unknown Urine Bacteria (Auto) 1+ /HPF (Negative) 08/10/20 Unknown Urine Mucus 3+ /HPF 08/10/20 Unknown Coronavirus (PCR) Positive (Negative) A 08/11/20 Unknown Gaytan/IV: Voiding Method Urinal Active Medications - Current Medications Current Medications: Generic Name Dose Route Start Last Admin Trade Name Freq PRN Reason Stop Dose Admin Acetaminophen 650 mg 08/10/20 23:48 08/23/20 22:57 Acetaminophen 325 Mg Tab PO 650 mg Q4H PRN Administration Pain MILD(1-3)/Fever >100.5/MARTINEZ Apixaban 10 mg 08/22/20 22:00 08/24/20 09:24 Apixaban 5 Mg Tab PO 08/29/20 10:01 10 mg Q12HR MELANIE Administration Protocol Apixaban 5 mg 08/29/20 22:00 Apixaban 5 Mg Tab PO Q12HR [facility] Protocol Artificial Tears 2 drops 08/16/20 13:44 Hypromellose 0.5% Ophth Soln 15 Ml OU Q4H PRN Dry Eye(s) Ascorbic Acid 500 mg 08/12/20 10:00 08/24/20 09:24 Ascorbic Acid 500 Mg Tab PO 500 mg BID MELANIE Administration Famotidine 20 mg 08/11/20 10:00 08/24/20 09:24 Famotidine 20 Mg/2 Ml Inj IV 20 mg BID MELANIE Administration Metoclopramide HCl 10 mg 08/10/20 23:48 Metoclopramide 10 Mg/2 Ml Inj IV Q6H PRN Nausea And Vomiting Morphine Sulfate 2 mg 08/10/20 23:48 Morphine 2 Mg/1 Ml Inj IV Q4H PRN Pain, Moderate (4-6) Ondansetron HCl 4 mg 08/10/20 23:48 Ondansetron 4 Mg/2 Ml Inj IV Q8H PRN Nausea And Vomiting Oxycodone/Acetaminophen 1 tab 08/10/20 23:48 Oxycodone /Acetaminophen 5-325mg Tab PO Q6H PRN Pain, Moderate (4-6) Sodium Chloride 10 ml 08/11/20 10:00 08/24/20 09:24 Sodium Chloride 0.9% 10 Ml Flush Syringe IV 10 ml BID MELANIE Administration Sodium Chloride 10 ml 08/10/20 23:48 08/12/20 21:04 Sodium Chloride 0.9% 10 Ml Flush Syringe IV 10 ml PRN PRN Administration LINE FLUSH Zinc Sulfate 220 mg 08/12/20 12:00 08/24/20 09:24 Zinc Sulfate 220 Mg Cap PO 220 mg QDAY MELANIE Administration Nutrition/Malnutrition Assess - Dietary Evaluation Nutrition/Malnutrition Findings: Nutrition Notes Start: 08/17/20 10:49 Freq: Status: Active Protocol: Document 08/23/20 13:30 CW (Rec: 08/23/20 13:36 CW [id number]) Nutrition Notes Initial or Follow up Reassessment Other Pertinent Diagnosis COVID-19 (+), pneu, RLE DVT, sinus bradycardia Current Diet Regular Labs/Tests 08/22/2020 Na 136 BUN 24 Cr 0.7 Pertinent Medications reviewed Height 5 ft 11 in Weight 147 kg [place] Body Weight (kg) 78.18 BMI 45.1 Weight Status Morbidly Obese Subjective/Other Information F/U for intakes. Pt intake varies. Average is around 75% of meals. Pt did not answer phone. Unsure of ONS intakes Percent of energy/protein needs met: 83%74% Burn Absent Trauma Absent Current % PO Fair (50-74%) Minimum of two criteria No #1 Nutrition Diagnosis Inadequate oral intake Diagnosis Progress(for reassessment Continues documentation) Is patient on ventilator? No Is Patient Ambulatory and/or Out of Bed No REE-([facility]-confined to bed) 2949.576 Kcal/Kg value to use for calculation 14 Approximate Energy Requirements Using 8 kcal/Kg Calculation Used for Recommendations Kcal/kg Additional Notes Pro needs 0.8-1g/kg adjBW: 90- 113g/day Fluid needs 1ml/kcal Nutrition Intervention Change Diet Order: Continue current diet as tolerated Add Supplement/Snack (indicate name/kcal Ensure High Protein BID /protein ) Provides kCal: 320 Provides Protein (gm) 32 Goal #1 PO tolerance Goal #2 PO intake of meals plus ONS to meet at least 75% energy and pro needs Anticipated Discharge Needs: Regular Diet Follow-Up By: 08/28/20 Additional Comments F/U for intakes and ONS tolerance
--- NOTE | 2020-08-25 10:03 | Progress Note ---
Assessment and Plan Assessment and plan: --COVID-19 Pneumonia Continue antibiotics Continue steroids total 10 days s/p Remdesivir, s/p tocilizumab Oxygen supplementation with BiPAP Trend inflammatory markers Prone positioning strongly advised ID and pulmonology following --Acute hypoxic respiratory failure secondary to COVID-19 PNA Pt remains on high flow oxygen 40/100/94 intermittent BiPAP Home O2 evaluation at discharge --Right lower extremity DVT D-dimer more than 10,000 US shows RLE DVT. Echocardiogram shows no right heart strain. DC Lovenox, transitioned to Eliquis --Sinus bradycardia /resolved Likely from remdesivir Heart rate in 60s and 70s today TSH wnl --Morbid obesity; BMI 41.9 Diet and exercise advised Patient needs outpatient bariatric surgical/medical weight reduction consult when medically stable --Positive DVT ;-on Eliquis Continues to be on high flow oxygen, Wean as tolerated We will closely monitor the patient and adjust management as needed Clothing Worker recommendations noted and appreciated Plan of care reviewed with the patient and his nurse and the case management Brief history 30-year-old male with morbid obesity weighing about 310 pounds was admitted through emergency room with frontal headache for 3 days. Patient was noted to be hypoxic with shortness of breath and cough O2 sats room air were in the 80s, requiring high flow oxygen, BiPAP, patient was admitted to IMCU Patient was PUI, placed in isolation, gillespie PCR test was positive, evaluated by ID and pulmonary, medications optimized and patient was being managed per COVID- 19 protocols and guidelines. Patient continues to depend on high flow oxygen and BiPAP. Today patient continues to be on very high flow oxygen of 40 L/100% FiO2/94 to 96% O2 sats Patient advised bariatric surgical consultation upon discharge for weight reduction program Work-up in the emergency room showed bilateral patchy opacities in the lungs and hypoxia-hence he was admitted for bilateral pneumonia and possible Covid pneumonia. No significant past medical history 08/11. Patient seen examined at bedside this morning. Has no complaints. Febrile this a.m.-103 Fahrenheit. On Tylenol as needed. COVID-19 test ordered. Remains on steroids. ID consult if COVID-19 is positive. 08/12. His COVID-19 test is positive. He was started on remdesivir last night. Oxygen requirement increased overnight. Inflammatory markers increasing. Repeat chest xray shows worsening infiltrates. Ordered BNP. Lasix 40mg IV ordered. Increased dexamethasone to 6mg BID. Pulmonology consulted. Will place on continuous pulse oximetry. Incentive spirometer ordered. Advised prone positioning. 08/13. Not feeling better. Seen on BIPAP. Remains on steroids, remdesivir and antibiotics. Vitals stable. 08/14. Still maintaining sats even on BiPAP. Lasix 40 mg IV ordered. D-dimer this a.m. is more than 10,000. Lovenox increased to 150 mg twice daily. Ultrasound lower extremities Doppler showed a right DVT. Echocardiogram ordered to rule out right heart strain. Pending results, patient may need vascular surgery evaluation for possible thrombectomy. Continue on BiPAP and continue to monitor respiratory status closely. 08/15. Sats better this AM. Received toculizumab yesterday. Advised him to prone as much as possible. Echo shows normal EF with no right heart strain. I/Os reviewed. He is diuresing well. Renal function is stable. Will give additional lasix today. Pulmonology following 08/16. Remains on remdesivir. Still on BIPAP. Will give lasix 20mg IV. HR is low - likley effect of remdesivir. Will continue to monitor closely 08/17. Sats in the 90's this AM. Still on BIPAP. 08/18; patient remains hypoxic requiring BiPAP and 100% nonrebreather intermittently 08/19; Continue supportive care, wean oxygen as tolerated. Encouraged PRONE positioning if able to tolerate. 08/20:Remains on BiPAP. continue lasix, still not proninig, encouraged to prone, FIO2 down to 90% with sat of 96%. Continue care, prognosis still guarded. 08/21: Patient down on high flow. Continue to encourage proning position. Still with guarded prognosis. Elevation in WBC noted to 20 this could be secondary to steroids I will continue to monitor. No fever noted at this time. Patient's respiratory status has stabilized on the high flow with no shallow breathing noted Discussed with the nurse at bedside 08/22; DC Lovenox therapeutic dose, start Eliquis per protocol to treat lower extremity DVT. 08/23; patient remains on high flow oxygen 40 L/100 FiO2/94% O2 sats, intermittent BiPAP 08/24; patient remains on high flow oxygen and BiPAP, consultants recommendations noted and appreciated 08/25; patient continues to be hypoxemic, on high flow oxygen 40L/ 100 FiO2/95 O2 sats and on intermittent BiPAP The high probability of a clinically significant, sudden or life threatening deterioration of the [pulmonary] system(s) required my full and direct a ttention, intervention and personal management. The aggregate critical care time was [32] minutes. This time is in addition to time spent performing reported procedures but includes the following: [x] Data Review and interpretation [x] Patient assessment and monitoring of vital signs [x] Documentation [x] Medication orders and management History Interval history: I have seen and examined the patient in IMCU this morning, patient's chart and m edications reviewed Patient remains on high flow oxygen 40 L/90 FiO2/100% O2 sats with intermittent BiPAP Complains of mild shortness of breath Vital signs reviewed Patient is morbidly obese Hospitalist Physical - Constitutional Vitals: Temp Pulse Resp BP Pulse Ox 98.6 F 89 9 L 117/72 93 08/25/20 08:00 08/25/20 05:00 08/25/20 05:00 08/25/20 05:00 08/25/20 06:24 General appearance: Present: no acute distress, well-nourished, obese (Morbidly obese) - EENT Eyes: Present: PERRL, EOM intact - Neck Neck: Present: supple, normal ROM - Respiratory Respiratory effort: normal Respiratory: bilateral: diminished, rhonchi, negative: rales, wheezing - Cardiovascular Rhythm: regular Heart Sounds: Present: S1 & S2 - Extremities Extremities: no ischemia, No edema - Abdominal General gastrointestinal: soft, non-tender, non-distended, normal bowel sounds - Integumentary Integumentary: Present: clear, warm - Psychiatric Psychiatric: appropriate mood/affect, cooperative - Neurologic Neurologic: moves all extremities Results - Labs CBC & Chem 7: 08/22/20 05:23 08/22/20 05:23 Labs: Laboratory Last Values WBC 24.7 K/mm3 (4.5-11.0) H 08/22/20 05:23 RBC 4.79 M/mm3 (3.65-5.03) 08/22/20 05:23 Hgb 13.8 gm/dl (11.8-15.2) 08/22/20 05:23 Hct 41.9 % (35.5-45.6) 08/22/20 05:23 MCV 88 fl (84-94) 08/22/20 05:23 MCH 29 pg (28-32) 08/22/20 05:23 MCHC 33 % (32-34) 08/22/20 05:23 RDW 13.7 % (13.2-15.2) 08/22/20 05:23 Plt Count 371 K/mm3 (140-440) 08/22/20 05:23 Lymph % (Auto) 8.2 % (13.4-35.0) L 08/16/20 05:26 [place] % (Auto) 4.7 % (0.0-7.3) 08/16/20 05:26 Eos % (Auto) 0.2 % (0.0-4.3) 08/16/20 05:26 Baso % (Auto) 0.7 % (0.0-1.8) 08/16/20 05:26 Lymph # (Auto) 1.5 K/mm3 (1.2-5.4) 08/16/20 05:26 [place] # (Auto) 0.8 K/mm3 (0.0-0.8) 08/16/20 05:26 Eos # (Auto) 0.0 K/mm3 (0.0-0.4) 08/16/20 05:26 Baso # (Auto) 0.1 K/mm3 (0.0-0.1) 08/16/20 05:26 Add Manual Diff Complete 08/17/20 05:06 Total Counted 100 08/17/20 05:06 Seg Neutrophils % 86.2 % (40.0-70.0) H 08/16/20 05:26 Seg Neuts % (Manual) 86.0 % (40.0-70.0) H 08/17/20 05:06 Lymphocytes % (Manual) 7.0 % (13.4-35.0) L 08/17/20 05:06 Monocytes % (Manual) 6.0 % (0.0-7.3) 08/17/20 05:06 Eosinophils % (Manual) 1.0 % (0.0-4.3) 08/17/20 05:06 Metamyelocytes % 2.0 % 08/15/20 05:16 Nucleated RBC % Not Reportable 08/17/20 05:06 Seg Neutrophils # 15.3 K/mm3 (1.8-7.7) H 08/16/20 05:26 Seg Neutrophils # Man 17.8 K/mm3 (1.8-7.7) H 08/17/20 05:06 Band Neutrophils # 0.0 K/mm3 08/17/20 05:06 Lymphocytes # (Manual) 1.4 K/mm3 (1.2-5.4) 08/17/20 05:06 Abs React Lymphs (Man) 0.0 K/mm3 08/17/20 05:06 Monocytes # (Manual) 1.2 K/mm3 (0.0-0.8) H 08/17/20 05:06 Eosinophils # (Manual) 0.2 K/mm3 (0.0-0.4) 08/17/20 05:06 Basophils # (Manual) 0.0 K/mm3 (0.0-0.1) 08/17/20 05:06 Metamyelocytes # 0.0 K/mm3 08/17/20 05:06 Myelocytes # 0.0 K/mm3 08/17/20 05:06 Promyelocytes # 0.0 K/mm3 08/17/20 05:06 Blast Cells # 0.0 K/mm3 08/17/20 05:06 WBC Morphology Not Reportable 08/17/20 05:06 Hypersegmented Neuts Not Reportable 08/17/20 05:06 Hyposegmented Neuts Not Reportable 08/17/20 05:06 Hypogranular Neuts Not Reportable 08/17/20 05:06 Smudge Cells Not Reportable 08/17/20 05:06 Toxic Granulation Not Reportable 08/17/20 05:06 Toxic Vacuolation Not Reportable 08/17/20 05:06 Dohle Bodies Not Reportable 08/17/20 05:06 Pelger-Huet Anomaly Not Reportable 08/17/20 05:06 Juan Luis Rods Not Reportable 08/17/20 05:06 Platelet Estimate Consistent w auto 08/17/20 05:06 Clumped Platelets Not Reportable 08/17/20 05:06 Plt Clumps, EDTA Not Reportable 08/17/20 05:06 Large Platelets Not Reportable 08/17/20 05:06 Giant Platelets Not Reportable 08/17/20 05:06 Platelet Satelliting Not Reportable 08/17/20 05:06 Plt Morphology Comment Not Reportable 08/17/20 05:06 RBC Morphology Not Reportable 08/17/20 05:06 Dimorphic RBCs Not Reportable 08/17/20 05:06 Polychromasia Not Reportable 08/17/20 05:06 Hypochromasia Not Reportable 08/17/20 05:06 Poikilocytosis Not Reportable 08/17/20 05:06 Anisocytosis Few 08/17/20 05:06 Microcytosis Not Reportable 08/17/20 05:06 Macrocytosis Not Reportable 08/17/20 05:06 Spherocytes Not Reportable 08/17/20 05:06 Pappenheimer Bodies Not Reportable 08/17/20 05:06 Sickle Cells Not Reportable 08/17/20 05:06 Target Cells Not Reportable 08/17/20 05:06 Tear Drop Cells Not Reportable 08/17/20 05:06 Ovalocytes Not Reportable 08/17/20 05:06 Helmet Cells Not Reportable 08/17/20 05:06 [place]-Acorn Bodies Not Reportable 08/17/20 05:06 [place] Rings Not Reportable 08/17/20 05:06 [place] Cells Not Reportable 08/17/20 05:06 Bite Cells Not Reportable 08/17/20 05:06 Crenated Cell Not Reportable 08/17/20 05:06 Elliptocytes Not Reportable 08/17/20 05:06 Acanthocytes (Spur) Not Reportable 08/17/20 05:06 Rouleaux Not Reportable 08/17/20 05:06 Hemoglobin C Crystals Not Reportable 08/17/20 05:06 Schistocytes Not Reportable 08/17/20 05:06 Malaria parasites Not Reportable 08/17/20 05:06 Asif Bodies Not Reportable 08/17/20 05:06 Hem Pathologist Commnt No 08/17/20 05:06 PT 12.6 Sec. (12.2-14.9) 08/10/20 08:29 INR 0.96 (0.87-1.13) 08/10/20 08:29 D-Dimer 6731.66 ng/mlDDU (0-234) H 08/21/20 15:55 ABG pH 7.443 (7.320-7.450) 08/14/20 08:23 POC ABG pCO2 46.9 mmHg (32.0-48.0) 08/14/20 08:23 ABG pCO2 62.9 mm Hg 08/12/20 14:55 POC ABG pO2 50.0 mmHg (83-108) L 08/14/20 08:23 ABG pO2 65.8 mm Hg (80.0-90.0) L 08/12/20 14:55 POC ABG HCO3 31.4 08/14/20 08:23 ABG HCO3 31.4 mmol/L (20.0-26.0) H 08/12/20 14:55 ABG O2 Saturation 85.0 (0-100) 08/14/20 08:23 ABG O2 Content 24.3 (0.0-44) 08/12/20 14:55 POC ABG Base Excess 6.3 08/14/20 08:23 ABG Base Excess 2.6 mmol/L (-2.0-3.0) 08/12/20 14:55 ABG Hemoglobin 13.4 (12.0-17.5) 08/14/20 08:23 ABG Oxyhemoglobin 84.0 (94-98) L 08/14/20 08:23 ABG Carboxyhemoglobin 1.7 % (0.0-5.0) 08/12/20 14:55 ABG Methemoglobin 0.3 (0.0-1.5) 08/14/20 08:23 ABG Sodium 139.2 mmol/L (136.0-145.0) 08/14/20 08:23 ABG Potassium 4.5 mmol/L (3.40-4.50) 08/14/20 08:23 ABG Chloride 99.0 mmol/L (98-107) 08/14/20 08:23 ABG Glucose 141 mg/dL (65-95) H 08/14/20 08:23 VBG pH 7.303 (7.320-7.420) L 08/10/20 08:29 Oxyhemoglobin 89.7 % (95.0-99.0) L 08/12/20 14:55 Carboxyhemoglobin 0.9 (0.5-1.5) 08/14/20 08:23 FiO2 60 % 08/12/20 14:55 FiO2 % 100 08/14/20 08:23 Sodium 136 mmol/L (137-145) L 08/22/20 05:23 Potassium 5.0 mmol/L (3.6-5.0) 08/22/20 05:23 Chloride 96.3 mmol/L (98-107) L 08/22/20 05:23 Carbon Dioxide 28 mmol/L (22-30) 08/22/20 05:23 Anion Gap 17 mmol/L 08/22/20 05:23 BUN 24 mg/dL (9-20) H 08/22/20 05:23 Creatinine 0.7 mg/dL (0.8-1.3) L 08/22/20 05:23 Estimated GFR > 60 ml/min 08/22/20 05:23 BUN/Creatinine Ratio 34 % 08/22/20 05:23 Glucose 115 mg/dL (75-100) H 08/22/20 05:23 POC Glucose 151 mg/dL (70-105) H 08/21/20 11:17 Hemoglobin A1c 6.1 % (4-6) H 08/11/20 05:39 Lactic Acid 0.80 mmol/L (0.7-2.0) 08/10/20 11:18 Calcium 9.1 mg/dL (8.4-10.2) 08/22/20 05:23 Ferritin 1019.0 ng/mL (30.0-300.0) H 08/21/20 13:39 Total Bilirubin 0.50 mg/dL (0.1-1.2) 08/18/20 05:13 AST 50 units/L (5-40) H 08/18/20 05:13 ALT 50 units/L (7-56) 08/18/20 05:13 Alkaline Phosphatase 103 units/L (35-129) 08/18/20 05:13 Lactate Dehydrogenase 1251 units/L (91-180) H 08/21/20 13:39 C-Reactive Protein 0.30 mg/dL (0.00-1.30) 08/21/20 13:39 NT-Pro-B Natriuret Pep 36.40 pg/mL (0-450) 08/12/20 06:29 Total Protein 6.9 g/dL (6.3-8.2) 08/18/20 05:13 Albumin 3.7 g/dL (3.9-5) L 08/18/20 05:13 Albumin/Globulin Ratio 1.1 % 08/18/20 05:13 Procalcitonin 0.08 ng/mL (<0.15) 08/21/20 13:39 TSH 1.830 mlU/mL (0.270-4.200) 08/17/20 05:06 Free T4 1.01 ng/dL (0.76-1.46) 08/17/20 05:06 Arterial Blood Glucose 141 mg/dL (65-95) H 08/14/20 08:23 Arterial Blood Ionized Calcium 4.8 mg/dL (4.6-5.3) 08/14/20 08:23 Urine Color Yellow (Yellow) 08/10/20 Unknown Urine Turbidity Cloudy (Clear) 08/10/20 Unknown Urine pH 5.0 (5.0-7.0) 08/10/20 Unknown Ur Specific [place] 1.025 (1.003-1.030) 08/10/20 Unknown Urine Protein 30 mg/dl mg/dL (Negative) 08/10/20 Unknown Urine Glucose (UA) 150 mg/dL (Negative) 08/10/20 Unknown Urine Ketones Negative mg/dL (Negative) 08/10/20 Unknown Urine Blood Negative (Negative) 08/10/20 Unknown Urine Nitrite Negative (Negative) 08/10/20 Unknown Urine Bilirubin Negative (Negative) 08/10/20 Unknown Urine Urobilinogen < 2.0 mg/dL (<2.0) 08/10/20 Unknown Ur Leukocyte Esterase Negative (Negative) 08/10/20 Unknown Urine WBC (Auto) 5.0 /HPF (0.0-6.0) 08/10/20 Unknown Urine RBC (Auto) 2.0 /HPF (0.0-6.0) 08/10/20 Unknown U Epithel Cells (Auto) 1.0 /HPF (0-13.0) 08/10/20 Unknown Urine Bacteria (Auto) 1+ /HPF (Negative) 08/10/20 Unknown Urine Mucus 3+ /HPF 08/10/20 Unknown Coronavirus (PCR) Positive (Negative) A 08/11/20 Unknown Gaytan/IV: Voiding Method Urinal Active Medications - Current Medications Current Medications: Generic Name Dose Route Start Last Admin Trade Name Freq PRN Reason Stop Dose Admin Acetaminophen 650 mg 08/10/20 23:48 08/23/20 22:57 Acetaminophen 325 Mg Tab PO 650 mg Q4H PRN Administration Pain MILD(1-3)/Fever >100.5/MARTINEZ Apixaban 10 mg 08/22/20 22:00 08/24/20 22:07 Apixaban 5 Mg Tab PO 08/29/20 10:01 10 mg Q12HR MELANIE Administration Protocol Apixaban 5 mg 08/29/20 22:00 Apixaban 5 Mg Tab PO Q12HR MELANIE Protocol Artificial Tears 2 drops 08/16/20 13:44 Hypromellose 0.5% Ophth Soln 15 Ml OU Q4H PRN Dry Eye(s) Ascorbic Acid 500 mg 08/12/20 10:00 08/24/20 22:07 Ascorbic Acid 500 Mg Tab PO 500 mg BID MELANIE Administration Famotidine 20 mg 08/11/20 10:00 08/24/20 22:07 Famotidine 20 Mg/2 Ml Inj IV 20 mg BID MELANIE Administration Metoclopramide HCl 10 mg 08/10/20 23:48 Metoclopramide 10 Mg/2 Ml Inj IV Q6H PRN Nausea And Vomiting Morphine Sulfate 2 mg 08/10/20 23:48 Morphine 2 Mg/1 Ml Inj IV Q4H PRN Pain, Moderate (4-6) Ondansetron HCl 4 mg 08/10/20 23:48 Ondansetron 4 Mg/2 Ml Inj IV Q8H PRN Nausea And Vomiting Oxycodone/Acetaminophen 1 tab 08/10/20 23:48 Oxycodone /Acetaminophen 5-325mg Tab PO Q6H PRN Pain, Moderate (4-6) Sodium Chloride 10 ml 08/11/20 10:00 08/24/20 22:08 Sodium Chloride 0.9% 10 Ml Flush Syringe IV 10 ml BID MELANIE Administration Sodium Chloride 10 ml 08/10/20 23:48 08/12/20 21:04 Sodium Chloride 0.9% 10 Ml Flush Syringe IV 10 ml PRN PRN Administration LINE FLUSH Zinc Sulfate 220 mg 08/12/20 12:00 08/24/20 09:24 Zinc Sulfate 220 Mg Cap PO 220 mg QDAY MELANIE Administration Nutrition/Malnutrition Assess - Dietary Evaluation Nutrition/Malnutrition Findings: Nutrition Notes Start: 08/17/20 10:49 Freq: Status: Active Protocol: Document 08/23/20 13:30 CW (Rec: 08/23/20 13:36 CW [id number]) Nutrition Notes Initial or Follow up Reassessment Other Pertinent Diagnosis COVID-19 (+), pneu, RLE DVT, sinus bradycardia Current Diet Regular Labs/Tests 08/22/2020 Na 136 BUN 24 Cr 0.7 Pertinent Medications reviewed Height 5 ft 11 in Weight 147 kg [place] Body Weight (kg) 78.18 BMI 45.1 Weight Status Morbidly Obese Subjective/Other Information F/U for intakes. Pt intake varies. Average is around 75% of meals. Pt did not answer phone. Unsure of ONS intakes Percent of energy/protein needs met: 83%74% Burn Absent Trauma Absent Current % PO Fair (50-74%) Minimum of two criteria No #1 Nutrition Diagnosis Inadequate oral intake Diagnosis Progress(for reassessment Continues documentation) Is patient on ventilator? No Is Patient Ambulatory and/or Out of Bed No REE-([facility]-confined to bed) 2949.576 Kcal/Kg value to use for calculation 14 Approximate Energy Requirements Using 8 kcal/Kg Calculation Used for Recommendations Kcal/kg Additional Notes Pro needs 0.8-1g/kg adjBW: 90- 113g/day Fluid needs 1ml/kcal Nutrition Intervention Change Diet Order: Continue current diet as tolerated Add Supplement/Snack (indicate name/kcal Ensure High Protein BID /protein ) Provides kCal: 320 Provides Protein (gm) 32 Goal #1 PO tolerance Goal #2 PO intake of meals plus ONS to meet at least 75% energy and pro needs Anticipated Discharge Needs: Regular Diet Follow-Up By: 08/28/20 Additional Comments F/U for intakes and ONS tolerance
[2020-08-25] MEDS: FAMOTIDINE 20 MG/2 ML INJ IV SCH ×2 (10:14→22:53)
[2020-08-25] MEDS: ASCORBIC ACID 500 MG TAB PO SCH ×2 (10:14→22:53)
[2020-08-25] MEDS: ZINC SULFATE 220 MG CAP PO SCH (10:14)
[2020-08-25] MEDS: APIXABAN 5 MG TAB PO SCH ×2 (10:14→22:52)
--- NOTE | 2020-08-25 12:19 | Progress Note ---
Assessment and Plan Cultures: Blood culture 08/10/2020 no growth SARS CoV2 PCR positive 08/10/2020 urine culture: No growth Assessment: 30 years old male with history of morbid obesity, admitted on 08/10/2020 secondary to 3-day history of intermittent frontal headache: #Leukocytosis: worsening likely due to steroids/severe hypoxia, repeat procalcitonin level is low #Severe COVID19 pneumonia: On steroids, completed remdesivir. S/P actemra on 08/14/2020. Completed empiric abx course. Procal is low, additional abx not needed. CXR not significant change. Ferritin and LDH up. #Acute hypoxemic respiratory failure: severe, on HFNC/BIPAP 100%, worsening #Acute right leg DVT, very high d-dimer. On anticoagulation. #LONNY: Resolved #Morbid obesity: Associated with worse outcomes Recommendations: -Completed steroids -S/P remdesivir, actemra -Monitor inflammatory markers - ferritin, Ddimer, CRP, LDH ordered today -continue anticoagulation for DVT/Eliquis -prone positioning whenever possible -pulm on board Guarded prognosis, patient is at high risk of intubation, discussed with Dr. Rajwinder Doe MD Infectious Diseases Space Operations Officer [facility] ([facility]) M [phone] O [phone] Subjective Date of service: 08/25/20 Principal diagnosis: COVID Interval history: Patient is complaining of severe headache, frontal, 8 out of 10 and some sleepiness, O2 sat down to 60%. He is on high flow nasal cannula 100%, 40 L. Objective - Exam Narrative Exam: General appearance: Alert in no acute distress Eyes: anicteric sclerae, moist conjunctivae; no lid-lag; PERRLA HENT: Normocephalic, Atraumatic; normal external ears, nares open, oropharynx clear Neck: supple, tracheal midline, no JVD Lungs: Bilateral crackles CV: RRR no murmur Abdomen: Soft, obese nontender Extremities: no edema, no cyanosis Skin: No rash. Psych: no agitated Neuro: alert and oriented x 3. Moving all extermities . - Constitutional Vitals: Vital Signs Temp Pulse Resp BP Pulse Ox 99 F 93 H 18 112/61 90 08/25/20 12:00 08/25/20 11:00 08/25/20 11:00 08/25/20 11:00 08/25/20 11:00 Temperature -Last 24 Hours Temperature 99 F Temperature 98.6 F - Labs CBC & Chem 7: 08/22/20 05:23 08/22/20 05:23
[2020-08-25 12:48] LABS: ABG HCO3 33.3 mmol/L (20.0-26.0); ABG Methemoglobin 0.5 % (0.0-1.5); ABG Oxygen Saturation 94.9 % (95.0-99.0); ABG PCO2 67.2 mm Hg; ABG PH 7.313 pH Units (7.350-7.450); ABG PO2 76.2 mm Hg (80.0-90.0)
--- NOTE | 2020-08-25 13:04 | Progress Note ---
Assessment and Plan 30 y/o morbidly obese male with acute respiratory failure secondary to COVID 19 pneumonia. now found to have DVT in lower ext. 08/25/20: Placed back on bipap this am secondary to desaturations and lower mental state than before. Patient has been stable and making improvements but now seems to be headed in the wrong direction. Will monitor very closely as he is a high risk for intubation and bad outcomes. Very very guarded prognosis. Will give lasix today. 08/24/20: Encouraged more proning. Continue BIpap QHS and PRN. unfortunately, no funding, patient would be a good LTACH candidate as he will likely take a long time to wean from HFNC. 08/23/20: No new recs. Proning is metcalf. Will continue to follow. Appreciate ID recs and help. 08/22/20: Bipap PRN and QHS. Will given lasix today. Prone as tolerated. PT continues. Slight improvement. Will continue to follow. 08/21/20: Bipap PRN and QHS. Hold on lasix today. Continue to prone as much as tolerated. Will order PT consult. 08/18/20: Bipap pRN and QHS. More lasix today. Prone as tolerated during the day and sleep prone at night. CONtinue to try to hold off on intubation. Guarded prognosis. 08/17/20: Continue anticoagulation. Still trying to prevent intubation however will do electively if and when needed to prevent and emergent situation as patient will likely be difficult given neck and body habitus. Continue prone as tolerated. Steroids and remdesivir. 08/16/20: Anticoagulation. Prone as tolerated. Wean bipap as tolerated. Prognosis remains guarded. Trying to prevent intubation given poor outcomes associated with mechanically ventilated obese COVID patients. 08/15/20: Continue therapeutic anticoagulation. No current indication for vasc ular consult given no evidence of right heart strain on echo. CT would only be beneficial if we thought it would show large enough clot to warrant EKOS and with no evidence of strain, I doubt that will be the case. Continue proning as much as tolerated. Spoke with mother over the phone to update her. Patient also got actemra on yesterday as well. Prognosis remains guarded 08/14/20: Will accept sats in the mid 80's as long as mental state and work of breathing do not change. AGree with lasix therapy. Found to have large DVT on right. Spoke with [facility] and asked them to order stat echo to look for right heart strain, and if present may need to consider echos. Await echo before vascular consult. Prone if possible. Long discussion with mother on phone. Gave her a list of the meds he is on and what our current plan is. Also very candid with her and son at bedside that the mortality rate with COVID is very very high. 08/13/20: Lasix again today. Continue to alternate between HFNC with NRB and bipap. Prognosis is very very guarded. Very very guarded to poor prognosis given CXR appearance, and body habitus, along with rapid decline in self sustaning oxygen levels. Agree with lasix and increase in steroids. Must prone. Very high likelihood for mechanical ventilation which would carry a high mortality for patient. Will continue to follow. No additional IVF's unless indicated. Subjective Date of service: 08/25/20 Principal diagnosis: COVID Interval history: No acute events. Objective Vital Signs - 12hr 08/25/20 08/25/20 08/25/20 02:00 03:00 04:00 Temperature Pulse Rate 84 78 78 Pulse Rate [ 78 From Monitor] Respiratory 15 12 13 Rate Blood Pressure 118/87 123/77 125/70 O2 Sat by Pulse 97 93 Oximetry 08/25/20 08/25/20 08/25/20 05:00 06:00 06:24 Temperature Pulse Rate 89 84 Pulse Rate [ From Monitor] Respiratory 9 L 15 Rate Blood Pressure 117/72 124/65 O2 Sat by Pulse 88 89 93 Oximetry 08/25/20 08/25/20 08/25/20 07:00 08:00 09:00 Temperature 98.6 F Pulse Rate 83 74 72 Pulse Rate [ From Monitor] Respiratory 11 L 11 L 12 Rate Blood Pressure 120/61 115/66 117/71 O2 Sat by Pulse 90 94 90 Oximetry 08/25/20 08/25/20 08/25/20 10:00 10:50 11:00 Temperature Pulse Rate 80 92 H 93 H Pulse Rate [ From Monitor] Respiratory 16 37 H 18 Rate Blood Pressure 117/71 115/66 112/61 O2 Sat by Pulse 93 93 90 Oximetry 08/25/20 12:00 Temperature 99 F Pulse Rate Pulse Rate [ From Monitor] Respiratory Rate Blood Pressure O2 Sat by Pulse Oximetry CBC and BMP: 08/22/20 05:23 08/22/20 05:23 ABG, PT/INR, D-dimer: ABG ABG pH 7.313 pH Units (7.350-7.450) L 08/25/20 12:30 POC ABG pCO2 46.9 mmHg (32.0-48.0) 08/14/20 08:23 ABG pCO2 67.2 mm Hg 08/25/20 12:30 POC ABG pO2 50.0 mmHg (83-108) L 08/14/20 08:23 ABG pO2 76.2 mm Hg (80.0-90.0) L 08/25/20 12:30 POC ABG HCO3 31.4 08/14/20 08:23 ABG O2 Saturation 94.9 % (95.0-99.0) L 08/25/20 12:30 PT/INR, D-dimer PT 12.6 Sec. (12.2-14.9) 08/10/20 08:29 INR 0.96 (0.87-1.13) 08/10/20 08:29 D-Dimer 6731.66 ng/mlDDU (0-234) H 08/21/20 15:55 Abnormal lab findings: Abnormal Labs 08/10/20 08/10/20 08/10/20 08:29 08:29 08:29 WBC Lymph % (Auto) [place] % (Auto) 8.4 H Lymph # (Auto) [place] # (Auto) Seg Neutrophils % Seg Neuts % (Manual) Lymphocytes % (Manual) Seg Neutrophils # Seg Neutrophils # Man Lymphocytes # (Manual) Monocytes # (Manual) D-Dimer ABG pH POC ABG pCO2 POC ABG pO2 ABG pO2 ABG HCO3 ABG O2 Saturation ABG Base Excess ABG Hemoglobin ABG Oxyhemoglobin ABG Potassium ABG Glucose VBG pH 7.303 L Oxyhemoglobin Sodium Potassium Chloride Carbon Dioxide BUN Creatinine Glucose 132 H POC Glucose Hemoglobin A1c Ferritin AST Lactate Dehydrogenase C-Reactive Protein Albumin Arterial Blood Glucose Coronavirus (PCR) 08/11/20 08/11/20 08/11/20 05:39 05:39 05:39 WBC Lymph % (Auto) 12.5 L [place] % (Auto) Lymph # (Auto) [place] # (Auto) Seg Neutrophils % 84.2 H Seg Neuts % (Manual) Lymphocytes % (Manual) Seg Neutrophils # 9.1 H Seg Neutrophils # Man Lymphocytes # (Manual) Monocytes # (Manual) D-Dimer ABG pH POC ABG pCO2 POC ABG pO2 ABG pO2 ABG HCO3 ABG O2 Saturation ABG Base Excess ABG Hemoglobin ABG Oxyhemoglobin ABG Potassium ABG Glucose VBG pH Oxyhemoglobin Sodium Potassium Chloride Carbon Dioxide BUN Creatinine Glucose 125 H POC Glucose Hemoglobin A1c 6.1 H Ferritin AST Lactate Dehydrogenase C-Reactive Protein Albumin Arterial Blood Glucose Coronavirus (PCR) 08/11/20 08/11/20 08/11/20 18:58 18:58 18:58 WBC Lymph % (Auto) [place] % (Auto) Lymph # (Auto) [place] # (Auto) Seg Neutrophils % Seg Neuts % (Manual) Lymphocytes % (Manual) Seg Neutrophils # Seg Neutrophils # Man Lymphocytes # (Manual) Monocytes # (Manual) D-Dimer 464.84 H ABG pH POC ABG pCO2 POC ABG pO2 ABG pO2 ABG HCO3 ABG O2 Saturation ABG Base Excess ABG Hemoglobin ABG Oxyhemoglobin ABG Potassium ABG Glucose VBG pH Oxyhemoglobin Sodium Potassium Chloride Carbon Dioxide BUN Creatinine Glucose POC Glucose Hemoglobin A1c Ferritin 528.7 H AST Lactate Dehydrogenase 637 H C-Reactive Protein 11.30 H Albumin Arterial Blood Glucose Coronavirus (PCR) 08/11/20 08/11/20 08/12/20 19:08 Unknown 06:29 WBC 11.2 H Lymph % (Auto) 8.6 L [place] % (Auto) Lymph # (Auto) 1.0 L [place] # (Auto) Seg Neutrophils % 88.3 H Seg Neuts % (Manual) Lymphocytes % (Manual) Seg Neutrophils # 9.8 H Seg Neutrophils # Man Lymphocytes # (Manual) Monocytes # (Manual) D-Dimer ABG pH POC ABG pCO2 POC ABG pO2 ABG pO2 ABG HCO3 ABG O2 Saturation ABG Base Excess ABG Hemoglobin ABG Oxyhemoglobin ABG Potassium ABG Glucose VBG pH Oxyhemoglobin Sodium Potassium Chloride Carbon Dioxide BUN Creatinine Glucose 161 H POC Glucose Hemoglobin A1c Ferritin AST Lactate Dehydrogenase C-Reactive Protein Albumin Arterial Blood Glucose Coronavirus (PCR) Positive A 08/12/20 08/12/20 08/12/20 06:29 06:29 06:29 WBC Lymph % (Auto) [place] % (Auto) Lymph # (Auto) [place] # (Auto) Seg Neutrophils % Seg Neuts % (Manual) Lymphocytes % (Manual) Seg Neutrophils # Seg Neutrophils # Man Lymphocytes # (Manual) Monocytes # (Manual) D-Dimer 830.34 H ABG pH POC ABG pCO2 POC ABG pO2 ABG pO2 ABG HCO3 ABG O2 Saturation ABG Base Excess ABG Hemoglobin ABG Oxyhemoglobin ABG Potassium ABG Glucose VBG pH Oxyhemoglobin Sodium Potassium Chloride Carbon Dioxide 31 H BUN Creatinine Glucose 138 H POC Glucose Hemoglobin A1c Ferritin 572.6 H AST 42 H Lactate Dehydrogenase 706 H C-Reactive Protein 17.30 H Albumin 3.7 L Arterial Blood Glucose Coronavirus (PCR) 08/12/20 08/12/20 08/12/20 13:21 14:55 21:59 WBC Lymph % (Auto) [place] % (Auto) Lymph # (Auto) [place] # (Auto) Seg Neutrophils % Seg Neuts % (Manual) Lymphocytes % (Manual) Seg Neutrophils # Seg Neutrophils # Man Lymphocytes # (Manual) Monocytes # (Manual) D-Dimer ABG pH 7.315 L POC ABG pCO2 57.1 H POC ABG pO2 47.8 L ABG pO2 65.8 L ABG HCO3 31.4 H ABG O2 Saturation 91.7 L ABG Base Excess ABG Hemoglobin 19.3 H ABG Oxyhemoglobin ABG Potassium 4.9 H ABG Glucose 182 H VBG pH Oxyhemoglobin 89.7 L Sodium Potassium Chloride Carbon Dioxide BUN Creatinine Glucose POC Glucose 142 H Hemoglobin A1c Ferritin AST Lactate Dehydrogenase C-Reactive Protein Albumin Arterial Blood Glucose 182 H Coronavirus (PCR) 08/13/20 08/13/20 08/13/20 05:35 05:35 12:11 WBC 12.0 H Lymph % (Auto) 8.1 L [place] % (Auto) Lymph # (Auto) 1.0 L [place] # (Auto) Seg Neutrophils % 88.0 H Seg Neuts % (Manual) Lymphocytes % (Manual) Seg Neutrophils # 10.5 H Seg Neutrophils # Man Lymphocytes # (Manual) Monocytes # (Manual) D-Dimer ABG pH POC ABG pCO2 POC ABG pO2 ABG pO2 ABG HCO3 ABG O2 Saturation ABG Base Excess ABG Hemoglobin ABG Oxyhemoglobin ABG Potassium ABG Glucose VBG pH Oxyhemoglobin Sodium Potassium 5.1 H Chloride Carbon Dioxide 31 H BUN 25 H Creatinine Glucose 174 H POC Glucose 154 H Hemoglobin A1c Ferritin AST 41 H Lactate Dehydrogenase 996 H C-Reactive Protein Albumin 3.8 L Arterial Blood Glucose Coronavirus (PCR) 08/13/20 08/13/20 08/14/20 16:18 23:24 05:21 WBC 14.2 H Lymph % (Auto) 8.2 L [place] % (Auto) Lymph # (Auto) [place] # (Auto) 0.9 H Seg Neutrophils % 85.4 H Seg Neuts % (Manual) Lymphocytes % (Manual) Seg Neutrophils # 12.2 H Seg Neutrophils # Man Lymphocytes # (Manual) Monocytes # (Manual) D-Dimer ABG pH POC ABG pCO2 POC ABG pO2 ABG pO2 ABG HCO3 ABG O2 Saturation ABG Base Excess ABG Hemoglobin ABG Oxyhemoglobin ABG Potassium ABG Glucose VBG pH Oxyhemoglobin Sodium Potassium Chloride Carbon Dioxide BUN Creatinine Glucose POC Glucose 188 H 127 H Hemoglobin A1c Ferritin AST Lactate Dehydrogenase C-Reactive Protein Albumin Arterial Blood Glucose Coronavirus (PCR) 08/14/20 08/14/20 08/14/20 05:21 05:21 05:21 WBC Lymph % (Auto) [place] % (Auto) Lymph # (Auto) [place] # (Auto) Seg Neutrophils % Seg Neuts % (Manual) Lymphocytes % (Manual) Seg Neutrophils # Seg Neutrophils # Man Lymphocytes # (Manual) Monocytes # (Manual) D-Dimer > 45659 H ABG pH POC ABG pCO2 POC ABG pO2 ABG pO2 ABG HCO3 ABG O2 Saturation ABG Base Excess ABG Hemoglobin ABG Oxyhemoglobin ABG Potassium ABG Glucose VBG pH Oxyhemoglobin Sodium Potassium Chloride Carbon Dioxide 32 H 33 H BUN 26 H 26 H Creatinine Glucose 152 H 156 H POC Glucose Hemoglobin A1c Ferritin AST 53 H 54 H Lactate Dehydrogenase 1249 H C-Reactive Protein 9.90 H Albumin 3.7 L 3.7 L Arterial Blood Glucose Coronavirus (PCR) 08/14/20 08/14/20 08/14/20 05:21 05:58 08:23 WBC Lymph % (Auto) [place] % (Auto) Lymph # (Auto) [place] # (Auto) Seg Neutrophils % Seg Neuts % (Manual) Lymphocytes % (Manual) Seg Neutrophils # Seg Neutrophils # Man Lymphocytes # (Manual) Monocytes # (Manual) D-Dimer ABG pH POC ABG pCO2 POC ABG pO2 50.0 L ABG pO2 ABG HCO3 ABG O2 Saturation ABG Base Excess ABG Hemoglobin ABG Oxyhemoglobin 84.0 L ABG Potassium ABG Glucose 141 H VBG pH Oxyhemoglobin Sodium Potassium Chloride Carbon Dioxide BUN Creatinine Glucose POC Glucose 139 H Hemoglobin A1c Ferritin 1198.0 H AST Lactate Dehydrogenase C-Reactive Protein Albumin Arterial Blood Glucose 141 H Coronavirus (PCR) 08/15/20 08/15/20 08/16/20 05:16 05:16 05:26 WBC 13.7 H 17.7 H Lymph % (Auto) 8.2 L [place] % (Auto) Lymph # (Auto) [place] # (Auto) Seg Neutrophils % 86.2 H Seg Neuts % (Manual) 91.0 H 88.0 H Lymphocytes % (Manual) 7.0 L 9.0 L Seg Neutrophils # 15.3 H Seg Neutrophils # Man 12.5 H 15.6 H Lymphocytes # (Manual) 1.0 L Monocytes # (Manual) D-Dimer ABG pH POC ABG pCO2 POC ABG pO2 ABG pO2 ABG HCO3 ABG O2 Saturation ABG Base Excess ABG Hemoglobin ABG Oxyhemoglobin ABG Potassium ABG Glucose VBG pH Oxyhemoglobin Sodium Potassium Chloride Carbon Dioxide 32 H BUN 29 H Creatinine Glucose 150 H POC Glucose Hemoglobin A1c Ferritin AST Lactate Dehydrogenase 1150 H C-Reactive Protein Albumin 3.5 L Arterial Blood Glucose Coronavirus (PCR) 08/16/20 08/16/20 08/16/20 05:26 05:26 05:26 WBC Lymph % (Auto) [place] % (Auto) Lymph # (Auto) [place] # (Auto) Seg Neutrophils % Seg Neuts % (Manual) Lymphocytes % (Manual) Seg Neutrophils # Seg Neutrophils # Man Lymphocytes # (Manual) Monocytes # (Manual) D-Dimer > 67971 H ABG pH POC ABG pCO2 POC ABG pO2 ABG pO2 ABG HCO3 ABG O2 Saturation ABG Base Excess ABG Hemoglobin ABG Oxyhemoglobin ABG Potassium ABG Glucose VBG pH Oxyhemoglobin Sodium Potassium 5.2 H Chloride Carbon Dioxide BUN 25 H Creatinine Glucose 163 H POC Glucose Hemoglobin A1c Ferritin 1013.0 H AST Lactate Dehydrogenase C-Reactive Protein 4.00 H Albumin 3.6 L Arterial Blood Glucose Coronavirus (PCR) 08/17/20 08/17/20 08/17/20 05:06 05:06 07:51 WBC 20.7 H Lymph % (Auto) [place] % (Auto) Lymph # (Auto) [place] # (Auto) Seg Neutrophils % Seg Neuts % (Manual) 86.0 H Lymphocytes % (Manual) 7.0 L Seg Neutrophils # Seg Neutrophils # Man 17.8 H Lymphocytes # (Manual) Monocytes # (Manual) 1.2 H D-Dimer ABG pH POC ABG pCO2 POC ABG pO2 ABG pO2 ABG HCO3 ABG O2 Saturation ABG Base Excess ABG Hemoglobin ABG Oxyhemoglobin ABG Potassium ABG Glucose VBG pH Oxyhemoglobin Sodium Potassium Chloride 96.5 L Carbon Dioxide 31 H BUN 29 H Creatinine Glucose 121 H POC Glucose 110 H Hemoglobin A1c Ferritin AST 46 H Lactate Dehydrogenase C-Reactive Protein Albumin 3.7 L Arterial Blood Glucose Coronavirus (PCR) 08/17/20 08/17/20 08/18/20 11:42 21:45 05:13 WBC Lymph % (Auto) [place] % (Auto) Lymph # (Auto) [place] # (Auto) Seg Neutrophils % Seg Neuts % (Manual) Lymphocytes % (Manual) Seg Neutrophils # Seg Neutrophils # Man Lymphocytes # (Manual) Monocytes # (Manual) D-Dimer > 1000 H ABG pH POC ABG pCO2 POC ABG pO2 ABG pO2 ABG HCO3 ABG O2 Saturation ABG Base Excess ABG Hemoglobin ABG Oxyhemoglobin ABG Potassium ABG Glucose VBG pH Oxyhemoglobin Sodium Potassium Chloride Carbon Dioxide BUN Creatinine Glucose POC Glucose 122 H 143 H Hemoglobin A1c Ferritin AST Lactate Dehydrogenase C-Reactive Protein Albumin Arterial Blood Glucose Coronavirus (PCR) 08/18/20 08/18/20 08/21/20 05:13 05:13 11:17 WBC Lymph % (Auto) [place] % (Auto) Lymph # (Auto) [place] # (Auto) Seg Neutrophils % Seg Neuts % (Manual) Lymphocytes % (Manual) Seg Neutrophils # Seg Neutrophils # Man Lymphocytes # (Manual) Monocytes # (Manual) D-Dimer ABG pH POC ABG pCO2 POC ABG pO2 ABG pO2 ABG HCO3 ABG O2 Saturation ABG Base Excess ABG Hemoglobin ABG Oxyhemoglobin ABG Potassium ABG Glucose VBG pH Oxyhemoglobin Sodium 133 L Potassium Chloride 94.7 L Carbon Dioxide BUN 33 H Creatinine Glucose 110 H POC Glucose 151 H Hemoglobin A1c Ferritin 979.8 H AST 50 H Lactate Dehydrogenase C-Reactive Protein Albumin 3.7 L Arterial Blood Glucose Coronavirus (PCR) 0408/21/20 08/21/20 13:39 13:39 15:55 WBC Lymph % (Auto) [place] % (Auto) Lymph # (Auto) [place] # (Auto) Seg Neutrophils % Seg Neuts % (Manual) Lymphocytes % (Manual) Seg Neutrophils # Seg Neutrophils # Man Lymphocytes # (Manual) Monocytes # (Manual) D-Dimer 6731.66 H ABG pH POC ABG pCO2 POC ABG pO2 ABG pO2 ABG HCO3 ABG O2 Saturation ABG Base Excess ABG Hemoglobin ABG Oxyhemoglobin ABG Potassium ABG Glucose VBG pH Oxyhemoglobin Sodium Potassium Chloride Carbon Dioxide BUN Creatinine Glucose POC Glucose Hemoglobin A1c Ferritin 1019.0 H AST Lactate Dehydrogenase 1251 H C-Reactive Protein Albumin Arterial Blood Glucose Coronavirus (PCR) 08/22/20 08/22/20 08/25/20 05:23 05:23 12:30 WBC 24.7 H Lymph % (Auto) [place] % (Auto) Lymph # (Auto) [place] # (Auto) Seg Neutrophils % Seg Neuts % (Manual) Lymphocytes % (Manual) Seg Neutrophils # Seg Neutrophils # Man Lymphocytes # (Manual) Monocytes # (Manual) D-Dimer ABG pH 7.313 L POC ABG pCO2 POC ABG pO2 ABG pO2 76.2 L ABG HCO3 33.3 H ABG O2 Saturation 94.9 L ABG Base Excess 5.0 H ABG Hemoglobin 13.4 L ABG Oxyhemoglobin ABG Potassium ABG Glucose VBG pH Oxyhemoglobin 93.0 L Sodium 136 L Potassium Chloride 96.3 L Carbon Dioxide BUN 24 H Creatinine 0.7 L Glucose 115 H POC Glucose Hemoglobin A1c Ferritin AST Lactate Dehydrogenase C-Reactive Protein Albumin Arterial Blood Glucose Coronavirus (PCR)
[2020-08-25] MEDS ORDERED: FUROSEMIDE 20 MG/2 ML INJ IV SCH (13:30)
[2020-08-25 17:08] LABS: C-Reactive Protein 0.1 mg/dL (0.00-1.30)
[2020-08-25] MEDS: oxyCODONE /ACETAMINOPHEN 5-325MG TAB PO PRN (21:08)
[2020-08-26 08:01] LABS: Basophils # (Auto) 0.1 K/mm3 (0.0-0.1); Basophils % (Auto) 0.5 % (0.0-1.8); Eosinophils # (Auto) 0.4 K/mm3 (0.0-0.4); Eosinophils % (Auto) 4.2 % (0.0-4.3); Hematocrit 39.2 % (35.5-45.6); Hemoglobin 13.2 gm/dl (11.8-15.2); Lymphocytes # (Auto) 2.1 K/mm3 (1.2-5.4); Lymphocytes % (Auto) 20.2 % (13.4-35.0); Mean Corpuscular HGB Conc 34 % (32-34); Mean Corpuscular Volume 90 fl (84-94); Monocytes % (Auto) 9.8 % (0.0-7.3); Platelet Count 259 K/mm3 (140-440); Red Blood Count 4.37 M/mm3 (3.65-5.03); Red Cell Distribution Width 14.2 % (13.2-15.2)
[2020-08-26 08:09] LABS: BUN/Creatinine Ratio 23; Blood Urea Nitrogen 18 mg/dL (9-20); Calcium 9.2 mg/dL (8.4-10.2); Hemolysis Index 50
[2020-08-26] MEDS: APIXABAN 5 MG TAB PO SCH ×2 (09:34→21:59)
[2020-08-26] MEDS: ZINC SULFATE 220 MG CAP PO SCH (09:34)
[2020-08-26] MEDS: ASCORBIC ACID 500 MG TAB PO SCH ×2 (09:34→21:59)
[2020-08-26] MEDS: FAMOTIDINE 20 MG/2 ML INJ IV SCH ×2 (09:36→21:59)
--- NOTE | 2020-08-26 10:48 | Progress Note ---
Assessment and Plan 30 y/o morbidly obese male with acute respiratory failure secondary to COVID 19 pneumonia. now found to have DVT in lower ext. 08/26/20: Pulm status is more stable today compared to yesterday. Continue bipap PRN and QHS. Will give IV lasix again today. Prognosis still remains very guarded. 08/25/20: Placed back on bipap this am secondary to desaturations and lower mental state than before. Patient has been stable and making improvements but now seems to be headed in the wrong direction. Will monitor very closely as he is a high risk for intubation and bad outcomes. Very very guarded prognosis. Will give lasix today. 08/24/20: Encouraged more proning. Continue BIpap QHS and PRN. unfortunately, no funding, patient would be a good LTACH candidate as he will likely take a long time to wean from HFNC. 08/23/20: No new recs. Proning is metcalf. Will continue to follow. Appreciate ID recs and help. 08/22/20: Bipap PRN and QHS. Will given lasix today. Prone as tolerated. PT continues. Slight improvement. Will continue to follow. 08/21/20: Bipap PRN and QHS. Hold on lasix today. Continue to prone as much as tolerated. Will order PT consult. 08/18/20: Bipap pRN and QHS. More lasix today. Prone as tolerated during the day and sleep prone at night. CONtinue to try to hold off on intubation. Guarded prognosis. 08/17/20: Continue anticoagulation. Still trying to prevent intubation however will do electively if and when needed to prevent and emergent situation as patient will likely be difficult given neck and body habitus. Continue prone as tolerated. Steroids and remdesivir. 08/16/20: Anticoagulation. Prone as tolerated. Wean bipap as tolerated. Prognosis remains guarded. Trying to prevent intubation given poor outcomes associated with mechanically ventilated obese COVID patients. 08/15/20: Continue therapeutic anticoagulation. No current indication for vascular consult given no evidence of right heart strain on echo. CT would only be beneficial if we thought it would show large enough clot to warrant EKOS and with no evidence of strain, I doubt that will be the case. Continue proning as much as tolerated. Spoke with mother over the phone to update her. Patient also got actemra on yesterday as well. Prognosis remains guarded 08/14/20: Will accept sats in the mid 80's as long as mental state and work of breathing do not change. AGree with lasix therapy. Found to have large DVT on right. Spoke with [facility] and asked them to order stat echo to look for right heart strain, and if present may need to consider echos. Await echo before vascular consult. Prone if possible. Long discussion with mother on phone. Gave her a list of the meds he is on and what our current plan is. Also very candid with her and son at bedside that the mortality rate with COVID is very very high. 08/13/20: Lasix again today. Continue to alternate between HFNC with NRB and bipap. Prognosis is very very guarded. Very very guarded to poor prognosis given CXR appearance, and body habitus, along with rapid decline in self sustaning oxygen levels. Agree with lasix and increase in steroids. Must prone. Very high likelihood for mechanical ventilation which would carry a high mortality for patient. Will continue to follow. No additional IVF's unless indicated. Subjective Date of service: 08/26/20 Principal diagnosis: COVID Interval history: Breathing pattern is better. Unfortunately still on 40 and 100% but sats are better. Wore bipap last night. Objective Vital Signs - 12hr 08/25/20 08/26/20 08/26/20 23:01 00:00 01:00 Temperature Pulse Rate 83 94 H 87 Pulse Rate [ 94 H From Monitor] Respiratory 17 15 14 Rate Blood Pressure 126/58 138/74 144/62 O2 Sat by Pulse 89 93 88 Oximetry 08/26/20 08/26/20 08/26/20 02:00 03:00 04:00 Temperature Pulse Rate 83 73 82 Pulse Rate [ 82 From Monitor] Respiratory 11 L 12 15 Rate Blood Pressure 144/62 127/67 O2 Sat by Pulse 93 91 92 Oximetry 08/26/20 08/26/20 08/26/20 04:01 05:00 05:26 Temperature Pulse Rate 77 81 84 Pulse Rate [ From Monitor] Respiratory 12 10 L 27 H Rate Blood Pressure 128/81 140/79 128/81 O2 Sat by Pulse 90 91 95 Oximetry 08/26/20 08/26/20 08/26/20 06:01 07:01 07:52 Temperature 99.1 F Pulse Rate 78 74 Pulse Rate [ From Monitor] Respiratory 18 12 Rate Blood Pressure 116/65 140/79 O2 Sat by Pulse 93 90 Oximetry 08/26/20 08:21 Temperature Pulse Rate Pulse Rate [ From Monitor] Respiratory Rate Blood Pressure O2 Sat by Pulse 93 Oximetry CBC and BMP: 08/26/20 07:11 08/26/20 07:11 ABG, PT/INR, D-dimer: ABG ABG pH 7.313 pH Units (7.350-7.450) L 08/25/20 12:30 POC ABG pCO2 46.9 mmHg (32.0-48.0) 08/14/20 08:23 ABG pCO2 67.2 mm Hg 08/25/20 12:30 POC ABG pO2 50.0 mmHg (83-108) L 08/14/20 08:23 ABG pO2 76.2 mm Hg (80.0-90.0) L 08/25/20 12:30 POC ABG HCO3 31.4 08/14/20 08:23 ABG O2 Saturation 94.9 % (95.0-99.0) L 08/25/20 12:30 PT/INR, D-dimer PT 12.6 Sec. (12.2-14.9) 08/10/20 08:29 INR 0.96 (0.87-1.13) 08/10/20 08:29 D-Dimer 4487.76 ng/mlDDU (0-234) H 08/25/20 16:08 Abnormal lab findings: Abnormal Labs 08/10/20 08/10/20 08/10/20 08:29 08:29 08:29 WBC Lymph % (Auto) Rhea % (Auto) 8.4 H Lymph # (Auto) Rhea # (Auto) Seg Neutrophils % Seg Neuts % (Manual) Lymphocytes % (Manual) Seg Neutrophils # Seg Neutrophils # Man Lymphocytes # (Manual) Monocytes # (Manual) D-Dimer ABG pH POC ABG pCO2 POC ABG pO2 ABG pO2 ABG HCO3 ABG O2 Saturation ABG Base Excess ABG Hemoglobin ABG Oxyhemoglobin ABG Potassium ABG Glucose VBG pH 7.303 L Oxyhemoglobin Sodium Potassium Chloride Carbon Dioxide BUN Creatinine Glucose 132 H POC Glucose Hemoglobin A1c Ferritin AST Lactate Dehydrogenase C-Reactive Protein Albumin Arterial Blood Glucose Coronavirus (PCR) 08/11/20 08/11/20 08/11/20 05:39 05:39 05:39 WBC Lymph % (Auto) 12.5 L Rhea % (Auto) Lymph # (Auto) Rhea # (Auto) Seg Neutrophils % 84.2 H Seg Neuts % (Manual) Lymphocytes % (Manual) Seg Neutrophils # 9.1 H Seg Neutrophils # Man Lymphocytes # (Manual) Monocytes # (Manual) D-Dimer ABG pH POC ABG pCO2 POC ABG pO2 ABG pO2 ABG HCO3 ABG O2 Saturation ABG Base Excess ABG Hemoglobin ABG Oxyhemoglobin ABG Potassium ABG Glucose VBG pH Oxyhemoglobin Sodium Potassium Chloride Carbon Dioxide BUN Creatinine Glucose 125 H POC Glucose Hemoglobin A1c 6.1 H Ferritin AST Lactate Dehydrogenase C-Reactive Protein Albumin Arterial Blood Glucose Coronavirus (PCR) 08/11/20 08/11/20 08/11/20 18:58 18:58 18:58 WBC Lymph % (Auto) Rhea % (Auto) Lymph # (Auto) Rhea # (Auto) Seg Neutrophils % Seg Neuts % (Manual) Lymphocytes % (Manual) Seg Neutrophils # Seg Neutrophils # Man Lymphocytes # (Manual) Monocytes # (Manual) D-Dimer 464.84 H ABG pH POC ABG pCO2 POC ABG pO2 ABG pO2 ABG HCO3 ABG O2 Saturation ABG Base Excess ABG Hemoglobin ABG Oxyhemoglobin ABG Potassium ABG Glucose VBG pH Oxyhemoglobin Sodium Potassium Chloride Carbon Dioxide BUN Creatinine Glucose POC Glucose Hemoglobin A1c Ferritin 528.7 H AST Lactate Dehydrogenase 637 H C-Reactive Protein 11.30 H Albumin Arterial Blood Glucose Coronavirus (PCR) 08/11/20 08/11/20 08/12/20 19:08 Unknown 06:29 WBC 11.2 H Lymph % (Auto) 8.6 L Rhea % (Auto) Lymph # (Auto) 1.0 L Rhea # (Auto) Seg Neutrophils % 88.3 H Seg Neuts % (Manual) Lymphocytes % (Manual) Seg Neutrophils # 9.8 H Seg Neutrophils # Man Lymphocytes # (Manual) Monocytes # (Manual) D-Dimer ABG pH POC ABG pCO2 POC ABG pO2 ABG pO2 ABG HCO3 ABG O2 Saturation ABG Base Excess ABG Hemoglobin ABG Oxyhemoglobin ABG Potassium ABG Glucose VBG pH Oxyhemoglobin Sodium Potassium Chloride Carbon Dioxide BUN Creatinine Glucose 161 H POC Glucose Hemoglobin A1c Ferritin AST Lactate Dehydrogenase C-Reactive Protein Albumin Arterial Blood Glucose Coronavirus (PCR) Positive A 08/12/20 08/12/20 08/12/20 06:29 06:29 06:29 WBC Lymph % (Auto) Rhea % (Auto) Lymph # (Auto) Rhea # (Auto) Seg Neutrophils % Seg Neuts % (Manual) Lymphocytes % (Manual) Seg Neutrophils # Seg Neutrophils # Man Lymphocytes # (Manual) Monocytes # (Manual) D-Dimer 830.34 H ABG pH POC ABG pCO2 POC ABG pO2 ABG pO2 ABG HCO3 ABG O2 Saturation ABG Base Excess ABG Hemoglobin ABG Oxyhemoglobin ABG Potassium ABG Glucose VBG pH Oxyhemoglobin Sodium Potassium Chloride Carbon Dioxide 31 H BUN Creatinine Glucose 138 H POC Glucose Hemoglobin A1c Ferritin 572.6 H AST 42 H Lactate Dehydrogenase 706 H C-Reactive Protein 17.30 H Albumin 3.7 L Arterial Blood Glucose Coronavirus (PCR) 08/12/20 08/12/20 08/12/20 13:21 14:55 21:59 WBC Lymph % (Auto) Rhea % (Auto) Lymph # (Auto) Rhea # (Auto) Seg Neutrophils % Seg Neuts % (Manual) Lymphocytes % (Manual) Seg Neutrophils # Seg Neutrophils # Man Lymphocytes # (Manual) Monocytes # (Manual) D-Dimer ABG pH 7.315 L POC ABG pCO2 57.1 H POC ABG pO2 47.8 L ABG pO2 65.8 L ABG HCO3 31.4 H ABG O2 Saturation 91.7 L ABG Base Excess ABG Hemoglobin 19.3 H ABG Oxyhemoglobin ABG Potassium 4.9 H ABG Glucose 182 H VBG pH Oxyhemoglobin 89.7 L Sodium Potassium Chloride Carbon Dioxide BUN Creatinine Glucose POC Glucose 142 H Hemoglobin A1c Ferritin AST Lactate Dehydrogenase C-Reactive Protein Albumin Arterial Blood Glucose 182 H Coronavirus (PCR) 08/13/20 08/13/20 08/13/20 05:35 05:35 12:11 WBC 12.0 H Lymph % (Auto) 8.1 L Rhea % (Auto) Lymph # (Auto) 1.0 L Rhea # (Auto) Seg Neutrophils % 88.0 H Seg Neuts % (Manual) Lymphocytes % (Manual) Seg Neutrophils # 10.5 H Seg Neutrophils # Man Lymphocytes # (Manual) Monocytes # (Manual) D-Dimer ABG pH POC ABG pCO2 POC ABG pO2 ABG pO2 ABG HCO3 ABG O2 Saturation ABG Base Excess ABG Hemoglobin ABG Oxyhemoglobin ABG Potassium ABG Glucose VBG pH Oxyhemoglobin Sodium Potassium 5.1 H Chloride Carbon Dioxide 31 H BUN 25 H Creatinine Glucose 174 H POC Glucose 154 H Hemoglobin A1c Ferritin AST 41 H Lactate Dehydrogenase 996 H C-Reactive Protein Albumin 3.8 L Arterial Blood Glucose Coronavirus (PCR) 08/13/20 08/13/20 08/14/20 16:18 23:24 05:21 WBC 14.2 H Lymph % (Auto) 8.2 L Rhea % (Auto) Lymph # (Auto) Rhea # (Auto) 0.9 H Seg Neutrophils % 85.4 H Seg Neuts % (Manual) Lymphocytes % (Manual) Seg Neutrophils # 12.2 H Seg Neutrophils # Man Lymphocytes # (Manual) Monocytes # (Manual) D-Dimer ABG pH POC ABG pCO2 POC ABG pO2 ABG pO2 ABG HCO3 ABG O2 Saturation ABG Base Excess ABG Hemoglobin ABG Oxyhemoglobin ABG Potassium ABG Glucose VBG pH Oxyhemoglobin Sodium Potassium Chloride Carbon Dioxide BUN Creatinine Glucose POC Glucose 188 H 127 H Hemoglobin A1c Ferritin AST Lactate Dehydrogenase C-Reactive Protein Albumin Arterial Blood Glucose Coronavirus (PCR) 08/14/20 08/14/20 08/14/20 05:21 05:21 05:21 WBC Lymph % (Auto) Rhea % (Auto) Lymph # (Auto) Rhea # (Auto) Seg Neutrophils % Seg Neuts % (Manual) Lymphocytes % (Manual) Seg Neutrophils # Seg Neutrophils # Man Lymphocytes # (Manual) Monocytes # (Manual) D-Dimer > 02504 H ABG pH POC ABG pCO2 POC ABG pO2 ABG pO2 ABG HCO3 ABG O2 Saturation ABG Base Excess ABG Hemoglobin ABG Oxyhemoglobin ABG Potassium ABG Glucose VBG pH Oxyhemoglobin Sodium Potassium Chloride Carbon Dioxide 32 H 33 H BUN 26 H 26 H Creatinine Glucose 152 H 156 H POC Glucose Hemoglobin A1c Ferritin AST 53 H 54 H Lactate Dehydrogenase 1249 H C-Reactive Protein 9.90 H Albumin 3.7 L 3.7 L Arterial Blood Glucose Coronavirus (PCR) 08/14/20 08/14/20 08/14/20 05:21 05:58 08:23 WBC Lymph % (Auto) Rhea % (Auto) Lymph # (Auto) Rhea # (Auto) Seg Neutrophils % Seg Neuts % (Manual) Lymphocytes % (Manual) Seg Neutrophils # Seg Neutrophils # Man Lymphocytes # (Manual) Monocytes # (Manual) D-Dimer ABG pH POC ABG pCO2 POC ABG pO2 50.0 L ABG pO2 ABG HCO3 ABG O2 Saturation ABG Base Excess ABG Hemoglobin ABG Oxyhemoglobin 84.0 L ABG Potassium ABG Glucose 141 H VBG pH Oxyhemoglobin Sodium Potassium Chloride Carbon Dioxide BUN Creatinine Glucose POC Glucose 139 H Hemoglobin A1c Ferritin 1198.0 H AST Lactate Dehydrogenase C-Reactive Protein Albumin Arterial Blood Glucose 141 H Coronavirus (PCR) 08/15/20 08/15/20 08/16/20 05:16 05:16 05:26 WBC 13.7 H 17.7 H Lymph % (Auto) 8.2 L Rhea % (Auto) Lymph # (Auto) Rhea # (Auto) Seg Neutrophils % 86.2 H Seg Neuts % (Manual) 91.0 H 88.0 H Lymphocytes % (Manual) 7.0 L 9.0 L Seg Neutrophils # 15.3 H Seg Neutrophils # Man 12.5 H 15.6 H Lymphocytes # (Manual) 1.0 L Monocytes # (Manual) D-Dimer ABG pH POC ABG pCO2 POC ABG pO2 ABG pO2 ABG HCO3 ABG O2 Saturation ABG Base Excess ABG Hemoglobin ABG Oxyhemoglobin ABG Potassium ABG Glucose VBG pH Oxyhemoglobin Sodium Potassium Chloride Carbon Dioxide 32 H BUN 29 H Creatinine Glucose 150 H POC Glucose Hemoglobin A1c Ferritin AST Lactate Dehydrogenase 1150 H C-Reactive Protein Albumin 3.5 L Arterial Blood Glucose Coronavirus (PCR) 08/16/20 08/16/20 08/16/20 05:26 05:26 05:26 WBC Lymph % (Auto) Rhea % (Auto) Lymph # (Auto) Rhea # (Auto) Seg Neutrophils % Seg Neuts % (Manual) Lymphocytes % (Manual) Seg Neutrophils # Seg Neutrophils # Man Lymphocytes # (Manual) Monocytes # (Manual) D-Dimer > 50518 H ABG pH POC ABG pCO2 POC ABG pO2 ABG pO2 ABG HCO3 ABG O2 Saturation ABG Base Excess ABG Hemoglobin ABG Oxyhemoglobin ABG Potassium ABG Glucose VBG pH Oxyhemoglobin Sodium Potassium 5.2 H Chloride Carbon Dioxide BUN 25 H Creatinine Glucose 163 H POC Glucose Hemoglobin A1c Ferritin 1013.0 H AST Lactate Dehydrogenase C-Reactive Protein 4.00 H Albumin 3.6 L Arterial Blood Glucose Coronavirus (PCR) 08/17/20 08/17/20 08/17/20 05:06 05:06 07:51 WBC 20.7 H Lymph % (Auto) Rhea % (Auto) Lymph # (Auto) Rhea # (Auto) Seg Neutrophils % Seg Neuts % (Manual) 86.0 H Lymphocytes % (Manual) 7.0 L Seg Neutrophils # Seg Neutrophils # Man 17.8 H Lymphocytes # (Manual) Monocytes # (Manual) 1.2 H D-Dimer ABG pH POC ABG pCO2 POC ABG pO2 ABG pO2 ABG HCO3 ABG O2 Saturation ABG Base Excess ABG Hemoglobin ABG Oxyhemoglobin ABG Potassium ABG Glucose VBG pH Oxyhemoglobin Sodium Potassium Chloride 96.5 L Carbon Dioxide 31 H BUN 29 H Creatinine Glucose 121 H POC Glucose 110 H Hemoglobin A1c Ferritin AST 46 H Lactate Dehydrogenase C-Reactive Protein Albumin 3.7 L Arterial Blood Glucose Coronavirus (PCR) 08/17/20 08/17/20 08/18/20 11:42 21:45 05:13 WBC Lymph % (Auto) Rhea % (Auto) Lymph # (Auto) Rhea # (Auto) Seg Neutrophils % Seg Neuts % (Manual) Lymphocytes % (Manual) Seg Neutrophils # Seg Neutrophils # Man Lymphocytes # (Manual) Monocytes # (Manual) D-Dimer > 1000 H ABG pH POC ABG pCO2 POC ABG pO2 ABG pO2 ABG HCO3 ABG O2 Saturation ABG Base Excess ABG Hemoglobin ABG Oxyhemoglobin ABG Potassium ABG Glucose VBG pH Oxyhemoglobin Sodium Potassium Chloride Carbon Dioxide BUN Creatinine Glucose POC Glucose 122 H 143 H Hemoglobin A1c Ferritin AST Lactate Dehydrogenase C-Reactive Protein Albumin Arterial Blood Glucose Coronavirus (PCR) 08/18/20 08/18/20 08/21/20 05:13 05:13 11:17 WBC Lymph % (Auto) Rhea % (Auto) Lymph # (Auto) Rhea # (Auto) Seg Neutrophils % Seg Neuts % (Manual) Lymphocytes % (Manual) Seg Neutrophils # Seg Neutrophils # Man Lymphocytes # (Manual) Monocytes # (Manual) D-Dimer ABG pH POC ABG pCO2 POC ABG pO2 ABG pO2 ABG HCO3 ABG O2 Saturation ABG Base Excess ABG Hemoglobin ABG Oxyhemoglobin ABG Potassium ABG Glucose VBG pH Oxyhemoglobin Sodium 133 L Potassium Chloride 94.7 L Carbon Dioxide BUN 33 H Creatinine Glucose 110 H POC Glucose 151 H Hemoglobin A1c Ferritin 979.8 H AST 50 H Lactate Dehydrogenase C-Reactive Protein Albumin 3.7 L Arterial Blood Glucose Coronavirus (PCR) 08/21/20 08/21/20 08/21/20 13:39 13:39 15:55 WBC Lymph % (Auto) Rhea % (Auto) Lymph # (Auto) Rhea # (Auto) Seg Neutrophils % Seg Neuts % (Manual) Lymphocytes % (Manual) Seg Neutrophils # Seg Neutrophils # Man Lymphocytes # (Manual) Monocytes # (Manual) D-Dimer 6731.66 H ABG pH POC ABG pCO2 POC ABG pO2 ABG pO2 ABG HCO3 ABG O2 Saturation ABG Base Excess ABG Hemoglobin ABG Oxyhemoglobin ABG Potassium ABG Glucose VBG pH Oxyhemoglobin Sodium Potassium Chloride Carbon Dioxide BUN Creatinine Glucose POC Glucose Hemoglobin A1c Ferritin 1019.0 H AST Lactate Dehydrogenase 1251 H C-Reactive Protein Albumin Arterial Blood Glucose Coronavirus (PCR) 08/22/20 08/22/20 08/25/20 05:23 05:23 12:30 WBC 24.7 H Lymph % (Auto) Rhea % (Auto) Lymph # (Auto) Rhea # (Auto) Seg Neutrophils % Seg Neuts % (Manual) Lymphocytes % (Manual) Seg Neutrophils # Seg Neutrophils # Man Lymphocytes # (Manual) Monocytes # (Manual) D-Dimer ABG pH 7.313 L POC ABG pCO2 POC ABG pO2 ABG pO2 76.2 L ABG HCO3 33.3 H ABG O2 Saturation 94.9 L ABG Base Excess 5.0 H ABG Hemoglobin 13.4 L ABG Oxyhemoglobin ABG Potassium ABG Glucose VBG pH Oxyhemoglobin 93.0 L Sodium 136 L Potassium Chloride 96.3 L Carbon Dioxide BUN 24 H Creatinine 0.7 L Glucose 115 H POC Glucose Hemoglobin A1c Ferritin AST Lactate Dehydrogenase C-Reactive Protein Albumin Arterial Blood Glucose Coronavirus (PCR) 08/25/20 08/25/20 08/25/20 16:08 16:08 16:08 WBC Lymph % (Auto) Rhea % (Auto) Lymph # (Auto) Rhea # (Auto) Seg Neutrophils % Seg Neuts % (Manual) Lymphocytes % (Manual) Seg Neutrophils # Seg Neutrophils # Man Lymphocytes # (Manual) Monocytes # (Manual) D-Dimer 4487.76 H ABG pH POC ABG pCO2 POC ABG pO2 ABG pO2 ABG HCO3 ABG O2 Saturation ABG Base Excess ABG Hemoglobin ABG Oxyhemoglobin ABG Potassium ABG Glucose VBG pH Oxyhemoglobin Sodium Potassium Chloride Carbon Dioxide BUN Creatinine Glucose POC Glucose Hemoglobin A1c Ferritin 961.4 H AST Lactate Dehydrogenase 959 H C-Reactive Protein Albumin Arterial Blood Glucose Coronavirus (PCR) 08/26/20 08/26/20 07:11 07:11 WBC Lymph % (Auto) Rhea % (Auto) 9.8 H Lymph # (Auto) Rhea # (Auto) 1.0 H Seg Neutrophils % Seg Neuts % (Manual) Lymphocytes % (Manual) Seg Neutrophils # Seg Neutrophils # Man Lymphocytes # (Manual) Monocytes # (Manual) D-Dimer ABG pH POC ABG pCO2 POC ABG pO2 ABG pO2 ABG HCO3 ABG O2 Saturation ABG Base Excess ABG Hemoglobin ABG Oxyhemoglobin ABG Potassium ABG Glucose VBG pH Oxyhemoglobin Sodium 135 L Potassium Chloride 95.7 L Carbon Dioxide 33 H BUN Creatinine Glucose POC Glucose Hemoglobin A1c Ferritin AST Lactate Dehydrogenase C-Reactive Protein Albumin Arterial Blood Glucose Coronavirus (PCR)
[2020-08-26] MEDS ORDERED: FUROSEMIDE 20 MG/2 ML INJ IV ONE (10:49)
--- NOTE | 2020-08-26 15:46 | Progress Note ---
Assessment and Plan Assessment and plan: --COVID-19 Pneumonia Continue antibiotics Continue steroids total 10 days s/p Remdesivir, s/p tocilizumab Oxygen supplementation with BiPAP Trend inflammatory markers Prone positioning strongly advised ID and pulmonology following --Acute hypoxic respiratory failure secondary to COVID-19 PNA Pt remains on high flow oxygen 40/100/94 intermittent BiPAP Home O2 evaluation at discharge --Right lower extremity DVT D-dimer more than 10,000 US shows RLE DVT. Echocardiogram shows no right heart strain. DC Lovenox, transitioned to Eliquis --Sinus bradycardia /resolved Likely from remdesivir Heart rate in 60s and 70s today TSH wnl --Morbid obesity; BMI 41.9 Diet and exercise advised Patient needs outpatient bariatric surgical/medical weight reduction consult when medically stable --Positive DVT ;-on Eliquis Continues to be on high flow oxygen, Wean as tolerated We will closely monitor the patient and adjust management as needed Railway Signal Technician recommendations noted and appreciated Plan of care reviewed with the patient and his nurse and the case management The high probability of a clinically significant, sudden or life threatening deterioration of the [pulmonary,Vascular,ID,CVS and hematology] system(s) required my full and direct attention, intervention and personal management. The aggregate critical care time was [33] minutes. This time is in addition to time spent performing reported procedures but includes the following: [x] Data Review and interpretation [x] Patient assessment and monitoring of vital signs [x] Documentation [x] Medication orders and management Brief history 30-year-old male with morbid obesity weighing about 310 pounds was admitted through emergency room with frontal headache for 3 days. Patient was noted to be hypoxic with shortness of breath and cough O2 sats room air were in the 80s, requiring high flow oxygen, BiPAP, patient was admitted to IMCU Patient was PUI, placed in isolation, gillespie PCR test was positive, evaluated by ID and pulmonary, medications optimized and patient was being managed per COVID-19 protocols and guidelines. Patient continues to depend on high flow oxygen and BiPAP. Today patient continues to be on very high flow oxygen of 40 L/100% FiO2/94 to 96% O2 sats Patient advised bariatric surgical consultation upon discharge for weight reduction program Work-up in the emergency room showed bilateral patchy opacities in the lungs and hypoxia-hence he was admitted for bilateral pneumonia and possible Covid pneumonia. No significant past medical history Daily Hospital course: 08/11. Patient seen examined at bedside this morning. Has no complaints. Febrile this a.m.-103 Fahrenheit. On Tylenol as needed. COVID-19 test ordered. Remains on steroids. ID consult if COVID-19 is positive. 08/12. His COVID-19 test is positive. He was started on remdesivir last night. Oxygen requirement increased overnight. Inflammatory markers increasing. Repeat chest xray shows worsening infiltrates. Ordered BNP. Lasix 40mg IV ordered. Increased dexamethasone to 6mg BID. Pulmonology consulted. Will place on continuous pulse oximetry. Incentive spirometer ordered. Advised prone positioning. 08/13. Not feeling better. Seen on BIPAP. Remains on steroids, remdesivir and antibiotics. Vitals stable. 08/14. Still maintaining sats even on BiPAP. Lasix 40 mg IV ordered. D-dimer this a.m. is more than 10,000. Lovenox increased to 150 mg twice daily. Ultrasound lower extremities Doppler showed a right DVT. Echocardiogram ordered to rule out right heart strain. Pending results, patient may need vascular surgery evaluation for possible thrombectomy. Continue on BiPAP and continue to monitor respiratory status closely. 08/15. Sats better this AM. Received toculizumab yesterday. Advised him to prone as much as possible. Echo shows normal EF with no right heart strain. I/Os reviewed. He is diuresing well. Renal function is stable. Will give additional lasix today. Pulmonology following 08/16. Remains on remdesivir. Still on BIPAP. Will give lasix 20mg IV. HR is low - likley effect of remdesivir. Will continue to monitor closely 08/17. Sats in the 90's this AM. Still on BIPAP. 08/18; patient remains hypoxic requiring BiPAP and 100% nonrebreather intermittently 08/19; Continue supportive care, wean oxygen as tolerated. Encouraged PRONE positioning if able to tolerate. 08/20:Remains on BiPAP. continue lasix, still not proninig, encouraged to prone, FIO2 down to 90% with sat of 96%. Continue care, prognosis still guarded. 08/21: Patient down on high flow. Continue to encourage proning position. Still with guarded prognosis. Elevation in WBC noted to 20 this could be secondary to steroids I will continue to monitor. No fever noted at this time. Patient's respiratory status has stabilized on the high flow with no shallow breathing noted Discussed with the nurse at bedside 08/22; DC Lovenox therapeutic dose, start Eliquis per protocol to treat lower extremity DVT. 08/23; patient remains on high flow oxygen 40 L/100 FiO2/94% O2 sats, intermittent BiPAP 08/24; patient remains on high flow oxygen and BiPAP, consultants recommendations noted and appreciated 08/25; patient continues to be hypoxemic, on high flow oxygen 40L/ 100 FiO2/95 O2 sats and on intermittent BiPAP 12/26; patient continues to be on high flow oxygen, unable to wean follow pulmonary recommendations History Interval history: I have seen and examined the patient at the bedside in [facility] I have strictly followed Isolation precaution, PPE protocols per COVID-19 guidelines Patient continues to remain on high flow oxygen with intermittent BiPAP Denies chest pain complains of mild shortness of breath Vital signs reviewed Hospitalist Physical - Constitutional Vitals: Temp Pulse Resp BP Pulse Ox 97.9 F 104 H 17 149/96 94 08/26/20 12:16 08/26/20 15:01 08/26/20 15:01 08/26/20 15:01 08/26/20 15:01 General appearance: Present: no acute distress, well-nourished, obese (Morbidly obese) - EENT Eyes: Present: PERRL, EOM intact - Neck Neck: Present: supple, normal ROM - Respiratory Respiratory effort: normal Respiratory: bilateral: diminished, negative: rales, rhonchi, wheezing - Cardiovascular Rhythm: regular Heart Sounds: Present: S1 & S2 - Extremities Extremities: no ischemia, No edema - Abdominal General gastrointestinal: soft, non-tender, non-distended, normal bowel sounds - Integumentary Integumentary: Present: clear, warm - Psychiatric Psychiatric: appropriate mood/affect, cooperative - Neurologic Neurologic: CNII-XII intact, moves all extremities Results - Labs CBC & Chem 7: 08/26/20 07:11 08/26/20 07:11 Labs: Laboratory Last Values WBC 10.4 K/mm3 (4.5-11.0) 08/26/20 07:11 RBC 4.37 M/mm3 (3.65-5.03) 08/26/20 07:11 Hgb 13.2 gm/dl (11.8-15.2) 08/26/20 07:11 Hct 39.2 % (35.5-45.6) 08/26/20 07:11 MCV 90 fl (84-94) 08/26/20 07:11 MCH 30 pg (28-32) 08/26/20 07:11 MCHC 34 % (32-34) 08/26/20 07:11 RDW 14.2 % (13.2-15.2) 08/26/20 07:11 Plt Count 259 K/mm3 (140-440) 08/26/20 07:11 Lymph % (Auto) 20.2 % (13.4-35.0) 08/26/20 07:11 Andrews % (Auto) 9.8 % (0.0-7.3) H 08/26/20 07:11 Eos % (Auto) 4.2 % (0.0-4.3) 08/26/20 07:11 Baso % (Auto) 0.5 % (0.0-1.8) 08/26/20 07:11 Lymph # (Auto) 2.1 K/mm3 (1.2-5.4) 08/26/20 07:11 Andrews # (Auto) 1.0 K/mm3 (0.0-0.8) H 08/26/20 07:11 Eos # (Auto) 0.4 K/mm3 (0.0-0.4) 08/26/20 07:11 Baso # (Auto) 0.1 K/mm3 (0.0-0.1) 08/26/20 07:11 Add Manual Diff Complete 08/17/20 05:06 Total Counted 100 08/17/20 05:06 Seg Neutrophils % 65.3 % (40.0-70.0) 08/26/20 07:11 Seg Neuts % (Manual) 86.0 % (40.0-70.0) H 08/17/20 05:06 Lymphocytes % (Manual) 7.0 % (13.4-35.0) L 08/17/20 05:06 Monocytes % (Manual) 6.0 % (0.0-7.3) 08/17/20 05:06 Eosinophils % (Manual) 1.0 % (0.0-4.3) 08/17/20 05:06 Metamyelocytes % 2.0 % 08/15/20 05:16 Nucleated RBC % Not Reportable 08/17/20 05:06 Seg Neutrophils # 6.8 K/mm3 (1.8-7.7) 08/26/20 07:11 Seg Neutrophils # Man 17.8 K/mm3 (1.8-7.7) H 08/17/20 05:06 Band Neutrophils # 0.0 K/mm3 08/17/20 05:06 Lymphocytes # (Manual) 1.4 K/mm3 (1.2-5.4) 08/17/20 05:06 Abs React Lymphs (Man) 0.0 K/mm3 08/17/20 05:06 Monocytes # (Manual) 1.2 K/mm3 (0.0-0.8) H 08/17/20 05:06 Eosinophils # (Manual) 0.2 K/mm3 (0.0-0.4) 08/17/20 05:06 Basophils # (Manual) 0.0 K/mm3 (0.0-0.1) 08/17/20 05:06 Metamyelocytes # 0.0 K/mm3 08/17/20 05:06 Myelocytes # 0.0 K/mm3 08/17/20 05:06 Promyelocytes # 0.0 K/mm3 08/17/20 05:06 Blast Cells # 0.0 K/mm3 08/17/20 05:06 WBC Morphology Not Reportable 08/17/20 05:06 Hypersegmented Neuts Not Reportable 08/17/20 05:06 Hyposegmented Neuts Not Reportable 08/17/20 05:06 Hypogranular Neuts Not Reportable 08/17/20 05:06 Smudge Cells Not Reportable 08/17/20 05:06 Toxic Granulation Not Reportable 08/17/20 05:06 Toxic Vacuolation Not Reportable 08/17/20 05:06 Dohle Bodies Not Reportable 08/17/20 05:06 Pelger-Huet Anomaly Not Reportable 08/17/20 05:06 Juan Luis Rods Not Reportable 08/17/20 05:06 Platelet Estimate Consistent w auto 08/17/20 05:06 Clumped Platelets Not Reportable 08/17/20 05:06 Plt Clumps, EDTA Not Reportable 08/17/20 05:06 Large Platelets Not Reportable 08/17/20 05:06 Giant Platelets Not Reportable 08/17/20 05:06 Platelet Satelliting Not Reportable 08/17/20 05:06 Plt Morphology Comment Not Reportable 08/17/20 05:06 RBC Morphology Not Reportable 08/17/20 05:06 Dimorphic RBCs Not Reportable 08/17/20 05:06 Polychromasia Not Reportable 08/17/20 05:06 Hypochromasia Not Reportable 08/17/20 05:06 Poikilocytosis Not Reportable 08/17/20 05:06 Anisocytosis Few 08/17/20 05:06 Microcytosis Not Reportable 08/17/20 05:06 Macrocytosis Not Reportable 08/17/20 05:06 Spherocytes Not Reportable 08/17/20 05:06 Pappenheimer Bodies Not Reportable 08/17/20 05:06 Sickle Cells Not Reportable 08/17/20 05:06 Target Cells Not Reportable 08/17/20 05:06 Tear Drop Cells Not Reportable 08/17/20 05:06 Ovalocytes Not Reportable 08/17/20 05:06 Helmet Cells Not Reportable 08/17/20 05:06 [place] Bodies Not Reportable 08/17/20 05:06 [place] Rings Not Reportable 08/17/20 05:06 [place] Cells Not Reportable 08/17/20 05:06 Bite Cells Not Reportable 08/17/20 05:06 Crenated Cell Not Reportable 08/17/20 05:06 Elliptocytes Not Reportable 08/17/20 05:06 Acanthocytes (Spur) Not Reportable 08/17/20 05:06 Rouleaux Not Reportable 08/17/20 05:06 Hemoglobin C Crystals Not Reportable 08/17/20 05:06 Schistocytes Not Reportable 08/17/20 05:06 Malaria parasites Not Reportable 08/17/20 05:06 Asif Bodies Not Reportable 08/17/20 05:06 Hem Pathologist Commnt No 08/17/20 05:06 PT 12.6 Sec. (12.2-14.9) 08/10/20 08:29 INR 0.96 (0.87-1.13) 08/10/20 08:29 D-Dimer 4487.76 ng/mlDDU (0-234) H 08/25/20 16:08 ABG pH 7.313 pH Units (7.350-7.450) L 08/25/20 12:30 POC ABG pCO2 46.9 mmHg (32.0-48.0) 08/14/20 08:23 ABG pCO2 67.2 mm Hg 08/25/20 12:30 POC ABG pO2 50.0 mmHg (83-108) L 08/14/20 08:23 ABG pO2 76.2 mm Hg (80.0-90.0) L 08/25/20 12:30 POC ABG HCO3 31.4 08/14/20 08: ABG HCO3 33.3 mmol/L (20.0-26.0) H 08/25/20 12:30 ABG O2 Saturation 94.9 % (95.0-99.0) L 08/25/20 12:30 ABG O2 Content 17.5 (0.0-44) 08/25/20 12:30 POC ABG Base Excess 6.3 08/14/20 08:23 ABG Base Excess 5.0 mmol/L (-2.0-3.0) H 08/25/20 12:30 ABG Hemoglobin 13.4 gm/dl (14.0-18.0) L 08/25/20 12:30 ABG Oxyhemoglobin 84.0 (94-98) L 08/14/20 08:23 ABG Carboxyhemoglobin 1.5 % (0.0-5.0) 08/25/20 12:30 ABG Methemoglobin 0.5 % (0.0-1.5) 08/25/20 12:30 ABG Sodium 139.2 mmol/L (136.0-145.0) 08/14/20 08:23 ABG Potassium 4.5 mmol/L (3.40-4.50) 08/14/20 08: ABG Chloride 99.0 mmol/L (98-107) 08/14/20 08:23 ABG Glucose 141 mg/dL (65-95) H 08/14/20 08:23 VBG pH 7.303 (7.320-7.420) L 08/10/20 08:29 Oxyhemoglobin 93.0 % (95.0-99.0) L 08/25/20 12:30 Carboxyhemoglobin 0.9 (0.5-1.5) 08/14/20 08:23 FiO2 80 % 08/25/20 12:30 FiO2 % 100 08/14/20 08:23 Sodium 135 mmol/L (137-145) L 08/26/20 07:11 Potassium 4.6 mmol/L (3.6-5.0) 08/26/20 07:11 Chloride 95.7 mmol/L (98-107) L 08/26/20 07:11 Carbon Dioxide 33 mmol/L (22-30) H 08/26/20 07:11 Anion Gap 11 mmol/L 08/26/20 07:11 BUN 18 mg/dL (9-20) 08/26/20 07:11 Creatinine 0.8 mg/dL (0.8-1.3) 08/26/20 07:11 Estimated GFR > 60 ml/min 08/26/20 07:11 BUN/Creatinine Ratio 23 % 08/26/20 07:11 Glucose 91 mg/dL (75-100) 08/26/20 07:11 POC Glucose 151 mg/dL (70-105) H 08/21/20 11:17 Hemoglobin A1c 6.1 % (4-6) H 08/11/20 05:39 Lactic Acid 0.80 mmol/L (0.7-2.0) 08/10/20 11:18 Calcium 9.2 mg/dL (8.4-10.2) 08/26/20 07:11 Magnesium 2.20 mg/dL (1.7-2.3) 08/26/20 07:11 Ferritin 961.4 ng/mL (30.0-300.0) H 08/25/20 16:08 Total Bilirubin 0.50 mg/dL (0.1-1.2) 08/18/20 05:13 AST 50 units/L (5-40) H 08/18/20 05:13 ALT 50 units/L (7-56) 08/18/20 05:13 Alkaline Phosphatase 103 units/L (35-129) 08/18/20 05:13 Lactate Dehydrogenase 959 units/L (91-180) H 08/25/20 16:08 C-Reactive Protein 0.10 mg/dL (0.00-1.30) 08/25/20 16:08 NT-Pro-B Natriuret Pep 36.40 pg/mL (0-450) 08/12/20 06:29 Total Protein 6.9 g/dL (6.3-8.2) 08/18/20 05:13 Albumin 3.7 g/dL (3.9-5) L 08/18/20 05:13 Albumin/Globulin Ratio 1.1 % 08/18/20 05:13 Procalcitonin 0.08 ng/mL (<0.15) 08/21/20 13:39 TSH 1.830 mlU/mL (0.270-4.200) 08/17/20 05:06 Free T4 1.01 ng/dL (0.76-1.46) 08/17/20 05:06 Arterial Blood Glucose 141 mg/dL (65-95) H 08/14/20 08:23 Arterial Blood Ionized Calcium 4.8 mg/dL (4.6-5.3) 08/14/20 08:23 Urine Color Yellow (Yellow) 08/10/20 Unknown Urine Turbidity Cloudy (Clear) 08/10/20 Unknown Urine pH 5.0 (5.0-7.0) 08/10/20 Unknown Ur Specific Breaks 1.025 (1.003-1.030) 08/10/20 Unknown Urine Protein 30 mg/dl mg/dL (Negative) 08/10/20 Unknown Urine Glucose (UA) 150 mg/dL (Negative) 08/10/20 Unknown Urine Ketones Negative mg/dL (Negative) 08/10/20 Unknown Urine Blood Negative (Negative) 08/10/20 Unknown Urine Nitrite Negative (Negative) 08/10/20 Unknown Urine Bilirubin Negative (Negative) 08/10/20 Unknown Urine Urobilinogen < 2.0 mg/dL (<2.0) 08/10/20 Unknown Ur Leukocyte Esterase Negative (Negative) 08/10/20 Unknown Urine WBC (Auto) 5.0 /HPF (0.0-6.0) 08/10/20 Unknown Urine RBC (Auto) 2.0 /HPF (0.0-6.0) 08/10/20 Unknown U Epithel Cells (Auto) 1.0 /HPF (0-13.0) 08/10/20 Unknown Urine Bacteria (Auto) 1+ /HPF (Negative) 08/10/20 Unknown Urine Mucus 3+ /HPF 08/10/20 Unknown Coronavirus (PCR) Positive (Negative) A 08/11/20 Unknown Gaytan/IV: Voiding Method Urinal Active Medications - Current Medications Current Medications: Generic Name Dose Route Start Last Admin Trade Name Freq PRN Reason Stop Dose Admin Acetaminophen 650 mg 08/10/20 23:48 08/23/20 22:57 Acetaminophen 325 Mg Tab PO 650 mg Q4H PRN Administration Pain MILD(1-3)/Fever >100.5/MARTINEZ Apixaban 10 mg 08/22/20 22:00 08/26/20 09:34 Apixaban 5 Mg Tab PO 08/29/20 10:01 10 mg Q12HR MELANIE Administration Protocol Apixaban 5 mg 08/29/20 22:00 Apixaban 5 Mg Tab PO Q12HR MELANIE Protocol Artificial Tears 2 drops 08/16/20 13:44 Hypromellose 0.5% Ophth Soln 15 Ml OU Q4H PRN Dry Eye(s) Ascorbic Acid 500 mg 08/12/20 10:00 08/26/20 09:34 Ascorbic Acid 500 Mg Tab PO 500 mg BID MELANIE Administration Famotidine 20 mg 08/11/20 10:00 08/26/20 09:36 Famotidine 20 Mg/2 Ml Inj IV 20 mg BID MELANIE Administration Metoclopramide HCl 10 mg 08/10/20 23:48 Metoclopramide 10 Mg/2 Ml Inj IV Q6H PRN Nausea And Vomiting Morphine Sulfate 2 mg 08/10/20 23:48 08/25/20 10:20 Morphine 2 Mg/1 Ml Inj IV 2 mg Q4H PRN Administration Pain, Moderate (4-6) Ondansetron HCl 4 mg 08/10/20 23:48 Ondansetron 4 Mg/2 Ml Inj IV Q8H PRN Nausea And Vomiting Oxycodone/Acetaminophen 1 tab 08/10/20 23:48 08/25/20 21:08 Oxycodone /Acetaminophen 5-325mg Tab PO 1 tab Q6H PRN Administration Pain, Moderate (4-6) Sodium Chloride 10 ml 08/11/20 10:00 08/26/20 12:03 Sodium Chloride 0.9% 10 Ml Flush Syringe IV 10 ml BID MELANIE Administration Sodium Chloride 10 ml 08/10/20 23:48 08/12/20 21:04 Sodium Chloride 0.9% 10 Ml Flush Syringe IV 10 ml PRN PRN Administration LINE FLUSH Zinc Sulfate 220 mg 08/12/20 12:00 08/26/20 09:34 Zinc Sulfate 220 Mg Cap PO 220 mg QDAY MELANIE Administration Nutrition/Malnutrition Assess - Dietary Evaluation Nutrition/Malnutrition Findings: Nutrition Notes Start: 08/17/20 10:49 Freq: Status: Active Protocol: Document 08/23/20 13:30 CW (Rec: 08/23/20 13:36 CW [id number]) Nutrition Notes Initial or Follow up Reassessment Other Pertinent Diagnosis COVID-19 (+), pneu, RLE DVT, sinus bradycardia Current Diet Regular Labs/Tests 08/22/2020 Na 136 BUN 24 Cr 0.7 Pertinent Medications reviewed Height 5 ft 11 in Weight 147 kg [place] Body Weight (kg) 78.18 BMI 45.1 Weight Status Morbidly Obese Subjective/Other Information F/U for intakes. Pt intake varies. Average is around 75% of meals. Pt did not answer phone. Unsure of ONS intakes Percent of energy/protein needs met: 83%74% Burn Absent Trauma Absent Current % PO Fair (50-74%) Minimum of two criteria No #1 Nutrition Diagnosis Inadequate oral intake Diagnosis Progress(for reassessment Continues documentation) Is patient on ventilator? No Is Patient Ambulatory and/or Out of Bed No REE-([place]-confined to bed) 2949.576 Kcal/Kg value to use for calculation 14 Approximate Energy Requirements Using 2057 kcal/Kg Calculation Used for Recommendations Kcal/kg Additional Notes Pro needs 0.8-1g/kg adjBW: 90- 113g/day Fluid needs 1ml/kcal Nutrition Intervention Change Diet Order: Continue current diet as tolerated Add Supplement/Snack (indicate name/kcal Ensure High Protein BID /protein ) Provides kCal: 320 Provides Protein (gm) 32 Goal #1 PO tolerance Goal #2 PO intake of meals plus ONS to meet at least 75% energy and pro needs Anticipated Discharge Needs: Regular Diet Follow-Up By: 08/28/20 Additional Comments F/U for intakes and ONS tolerance
--- NOTE | 2020-08-27 08:14 | Progress Note ---
Assessment and Plan Assessment and plan: --Acute hypoxic respiratory failure secondary to COVID-19 PNA Pt remains on high flow oxygen 40/100/94 intermittent BiPAP Consider CTA chest to evaluate the cause of persistent hypoxia However patient is too unstable to go for the test pulmonary following, Home O2 evaluation at discharge --COVID-19 Pneumonia Continue antibiotics Continue steroids total 10 days s/p Remdesivir, s/p tocilizumab Oxygen supplementation with BiPAP Trend inflammatory markers Prone positioning strongly advised ID and pulmonology following --Right lower extremity DVT on LE Doppler study D-dimer more than 10,000 US shows RLE DVT. Echocardiogram shows no right heart strain. DC Lovenox, transitioned to Eliquis --Sinus bradycardia /resolved Likely from remdesivir Heart rate in 60s and 70s today TSH wnl --Morbid obesity; BMI 41.9 Diet and exercise advised Patient needs outpatient bariatric surgical/medical weight reduction consult when medically stable --Positive DVT ;-on Eliquis Continues to be on high flow oxygen, Wean as tolerated We will closely monitor the patient and adjust management as needed Event Sales Representative recommendations noted and appreciated Plan of care reviewed with the patient and his nurse and the case management The high probability of a clinically significant, sudden or life threatening deterioration of the [pulmonary,Vascular,ID,CVS and hematology] system(s) required my full and direct attention, intervention and personal management. The aggregate critical care time was [32] minutes. This time is in addition to time spent performing reported procedures but includes the following: [x] Data Review and interpretation [x] Patient assessment and monitoring of vital signs [x] Documentation [x] Medication orders and management Brief history 30-year-old male with morbid obesity weighing about 310 pounds was admitted through emergency room with frontal headache for 3 days. Patient was noted to be hypoxic with shortness of breath and cough O2 sats room air were in the 80s, requiring high flow oxygen, BiPAP, patient was admitted to IMCU Patient was PUI, placed in isolation, gillespie PCR test was positive, evaluated by ID and pulmonary, medications optimized and patient was being managed per COVID-19 protocols and guidelines. Patient continues to depend on high flow oxygen and BiPAP. Today patient continues to be on very high flow oxygen of 40 L/100% FiO2/94 to 96% O2 sats Patient advised bariatric surgical consultation upon discharge for weight reduction program Work-up in the emergency room showed bilateral patchy opacities in the lungs and hypoxia-hence he was admitted for bilateral pneumonia and possible Covid pneumonia. No significant past medical history Daily Hospital course: 08/11. Patient seen examined at bedside this morning. Has no complaints. Febrile this a.m.-103 Fahrenheit. On Tylenol as needed. COVID-19 test ordered. Remains on steroids. ID consult if COVID-19 is positive. 08/12. His COVID-19 test is positive. He was started on remdesivir last night. Oxygen requirement increased overnight. Inflammatory markers increasing. Repeat chest xray shows worsening infiltrates. Ordered BNP. Lasix 40mg IV ordered. I ncreased dexamethasone to 6mg BID. Pulmonology consulted. Will place on continuous pulse oximetry. Incentive spirometer ordered. Advised prone positioning. 08/13. Not feeling better. Seen on BIPAP. Remains on steroids, remdesivir and antibiotics. Vitals stable. 08/14. Still maintaining sats even on BiPAP. Lasix 40 mg IV ordered. D-dimer this a.m. is more than 10,000. Lovenox increased to 150 mg twice daily. Ultrasound lower extremities Doppler showed a right DVT. Echocardiogram ordered to rule out right heart strain. Pending results, patient may need vascular surgery evaluation for possible thrombectomy. Continue on BiPAP and continue to monitor respiratory status closely. 08/15. Sats better this AM. Received toculizumab yesterday. Advised him to prone as much as possible. Echo shows normal EF with no right heart strain. I/Os reviewed. He is diuresing well. Renal function is stable. Will give additional lasix today. Pulmonology following 08/16. Remains on remdesivir. Still on BIPAP. Will give lasix 20mg IV. HR is low - likley effect of remdesivir. Will continue to monitor closely 08/17. Sats in the 90's this AM. Still on BIPAP. 08/18; patient remains hypoxic requiring BiPAP and 100% nonrebreather intermittently 08/19; Continue supportive care, wean oxygen as tolerated. Encouraged PRONE positioning if able to tolerate. 08/20:Remains on BiPAP. continue lasix, still not proninig, encouraged to prone, FIO2 down to 90% with sat of 96%. Continue care, prognosis still guarded. 08/21: Patient down on high flow. Continue to encourage proning position. Still with guarded prognosis. Elevation in WBC noted to 20 this could be secondary to steroids I will continue to monitor. No fever noted at this time. Patient's respiratory status has stabilized on the high flow with no shallow breathing noted Discussed with the nurse at bedside 08/22; DC Lovenox therapeutic dose, start Eliquis per protocol to treat lower extremity DVT. 08/23; patient remains on high flow oxygen 40 L/100 FiO2/94% O2 sats, intermittent BiPAP 08/24; patient remains on high flow oxygen and BiPAP, consultants recommendations noted and appreciated 08/25; patient continues to be hypoxemic, on high flow oxygen 40L/ 100 FiO2/95 O2 sats and on intermittent BiPAP 08/26; patient continues to be on high flow oxygen, unable to wean follow pulmonary recommendations 08/27; patient remains on high flow oxygen 40 L/100% FiO2/95% O2 sats with intermittent BiPAP treatment History Interval history: I have seen and examined the patient at the bedside in [facility] this morning I have followed isolation precautions and PPE protocols strictly per COVID-19 guidelines Patient is sitting in chair feels better, however continues to be on high flow oxygen 40 L/100% FiO2/93 O2 sats Denies chest pain or shortness of breath Vital signs reviewed Hospitalist Physical - Constitutional Vitals: Temp Pulse Resp BP Pulse Ox 99.3 F 78 13 124/72 95 08/27/20 07:25 08/27/20 07:00 08/27/20 07:00 08/27/20 07:00 08/27/20 07:00 General appearance: Present: no acute distress, well-nourished, obese (Morbidly obese) - EENT Eyes: Present: PERRL, EOM intact - Neck Neck: Present: supple, normal ROM - Respiratory Respiratory effort: normal Respiratory: bilateral: diminished, rhonchi, negative: rales, wheezing - Cardiovascular Rhythm: regular Heart Sounds: Present: S1 & S2 - Extremities Extremities: no ischemia, No edema - Abdominal General gastrointestinal: soft, non-tender, non-distended, normal bowel sounds - Integumentary Integumentary: Present: clear, warm - Psychiatric Psychiatric: appropriate mood/affect, cooperative - Neurologic Neurologic: CNII-XII intact, moves all extremities Results - Labs CBC & Chem 7: 08/26/20 07:11 08/26/20 07:11 Labs: Laboratory Last Values WBC 10.4 K/mm3 (4.5-11.0) 08/26/20 07:11 RBC 4.37 M/mm3 (3.65-5.03) 08/26/20 07:11 Hgb 13.2 gm/dl (11.8-15.2) 08/26/20 07:11 Hct 39.2 % (35.5-45.6) 08/26/20 07:11 MCV 90 fl (84-94) 08/26/20 07:11 MCH 30 pg (28-32) 08/26/20 07:11 MCHC 34 % (32-34) 08/26/20 07:11 RDW 14.2 % (13.2-15.2) 08/26/20 07:11 Plt Count 259 K/mm3 (140-440) 08/26/20 07:11 Lymph % (Auto) 20.2 % (13.4-35.0) 08/26/20 07:11 Crosby % (Auto) 9.8 % (0.0-7.3) H 08/26/20 07:11 Eos % (Auto) 4.2 % (0.0-4.3) 08/26/20 07:11 Baso % (Auto) 0.5 % (0.0-1.8) 08/26/20 07:11 Lymph # (Auto) 2.1 K/mm3 (1.2-5.4) 08/26/20 07:11 Crosby # (Auto) 1.0 K/mm3 (0.0-0.8) H 08/26/20 07:11 Eos # (Auto) 0.4 K/mm3 (0.0-0.4) 08/26/20 07:11 Baso # (Auto) 0.1 K/mm3 (0.0-0.1) 08/26/20 07:11 Add Manual Diff Complete 08/17/20 05:06 Total Counted 100 08/17/20 05:06 Seg Neutrophils % 65.3 % (40.0-70.0) 08/26/20 07:11 Seg Neuts % (Manual) 86.0 % (40.0-70.0) H 08/17/20 05:06 Lymphocytes % (Manual) 7.0 % (13.4-35.0) L 08/17/20 05:06 Monocytes % (Manual) 6.0 % (0.0-7.3) 08/17/20 05:06 Eosinophils % (Manual) 1.0 % (0.0-4.3) 08/17/20 05:06 Metamyelocytes % 2.0 % 08/15/20 05:16 Nucleated RBC % Not Reportable 08/17/20 05:06 Seg Neutrophils # 6.8 K/mm3 (1.8-7.7) 08/26/20 07:11 Seg Neutrophils # Man 17.8 K/mm3 (1.8-7.7) H 08/17/20 05:06 Band Neutrophils # 0.0 K/mm3 08/17/20 05:06 Lymphocytes # (Manual) 1.4 K/mm3 (1.2-5.4) 08/17/20 05:06 Abs React Lymphs (Man) 0.0 K/mm3 08/17/20 05:06 Monocytes # (Manual) 1.2 K/mm3 (0.0-0.8) H 08/17/20 05:06 Eosinophils # (Manual) 0.2 K/mm3 (0.0-0.4) 08/17/20 05:06 Basophils # (Manual) 0.0 K/mm3 (0.0-0.1) 08/17/20 05:06 Metamyelocytes # 0.0 K/mm3 08/17/20 05:06 Myelocytes # 0.0 K/mm3 08/17/20 05:06 Promyelocytes # 0.0 K/mm3 08/17/20 05:06 Blast Cells # 0.0 K/mm3 08/17/20 05:06 WBC Morphology Not Reportable 08/17/20 05:06 Hypersegmented Neuts Not Reportable 08/17/20 05:06 Hyposegmented Neuts Not Reportable 08/17/20 05:06 Hypogranular Neuts Not Reportable 08/17/20 05:06 Smudge Cells Not Reportable 08/17/20 05:06 Toxic Granulation Not Reportable 08/17/20 05:06 Toxic Vacuolation Not Reportable 08/17/20 05:06 Dohle Bodies Not Reportable 08/17/20 05:06 Pelger-Huet Anomaly Not Reportable 08/17/20 05:06 Juan Luis Rods Not Reportable 08/17/20 05:06 Platelet Estimate Consistent w auto 08/17/20 05:06 Clumped Platelets Not Reportable 08/17/20 05:06 Plt Clumps, EDTA Not Reportable 08/17/20 05:06 Large Platelets Not Reportable 08/17/20 05:06 Giant Platelets Not Reportable 08/17/20 05:06 Platelet Satelliting Not Reportable 08/17/20 05:06 Plt Morphology Comment Not Reportable 08/17/20 05:06 RBC Morphology Not Reportable 08/17/20 05:06 Dimorphic RBCs Not Reportable 08/17/20 05:06 Polychromasia Not Reportable 08/17/20 05:06 Hypochromasia Not Reportable 08/17/20 05:06 Poikilocytosis Not Reportable 08/17/20 05:06 Anisocytosis Few 08/17/20 05:06 Microcytosis Not Reportable 08/17/20 05:06 Macrocytosis Not Reportable 08/17/20 05:06 Spherocytes Not Reportable 08/17/20 05:06 Pappenheimer Bodies Not Reportable 08/17/20 05:06 Sickle Cells Not Reportable 08/17/20 05:06 Target Cells Not Reportable 08/17/20 05:06 Tear Drop Cells Not Reportable 08/17/20 05:06 Ovalocytes Not Reportable 08/17/20 05:06 Helmet Cells Not Reportable 08/17/20 05:06 Patterson-Cogswell Bodies Not Reportable 08/17/20 05:06 [place] Rings Not Reportable 08/17/20 05:06 Thatcher Cells Not Reportable 08/17/20 05:06 Bite Cells Not Reportable 08/17/20 05:06 Crenated Cell Not Reportable 08/17/20 05:06 Elliptocytes Not Reportable 08/17/20 05:06 Acanthocytes (Spur) Not Reportable 08/17/20 05:06 Rouleaux Not Reportable 08/17/20 05:06 Hemoglobin C Crystals Not Reportable 08/17/20 05:06 Schistocytes Not Reportable 08/17/20 05:06 Malaria parasites Not Reportable 08/17/20 05:06 Asif Bodies Not Reportable 08/17/20 05:06 Hem Pathologist Commnt No 08/17/20 05:06 PT 12.6 Sec. (12.2-14.9) 08/10/20 08:29 INR 0.96 (0.87-1.13) 08/10/20 08:29 D-Dimer 4487.76 ng/mlDDU (0-234) H 08/25/20 16:08 ABG pH 7.313 pH Units (7.350-7.450) L 08/25/20 12:30 POC ABG pCO2 46.9 mmHg (32.0-48.0) 08/14/20 08:23 ABG pCO2 67.2 mm Hg 08/25/20 12:30 POC ABG pO2 50.0 mmHg (83-108) L 08/14/20 08:23 ABG pO2 76.2 mm Hg (80.0-90.0) L 08/25/20 12:30 POC ABG HCO3 31.4 08/14/20 08:23 ABG HCO3 33.3 mmol/L (20.0-26.0) H 08/25/20 12:30 ABG O2 Saturation 94.9 % (95.0-99.0) L 08/25/20 12:30 ABG O2 Content 17.5 (0.0-44) 08/25/20 12:30 POC ABG Base Excess 6.3 08/14/20 08:23 ABG Base Excess 5.0 mmol/L (-2.0-3.0) H 08/25/20 12:30 ABG Hemoglobin 13.4 gm/dl (14.0-18.0) L 08/25/20 12:30 ABG Oxyhemoglobin 84.0 (94-98) L 08/14/20 08:23 ABG Carboxyhemoglobin 1.5 % (0.0-5.0) 08/25/20 12:30 ABG Methemoglobin 0.5 % (0.0-1.5) 08/25/20 12:30 ABG Sodium 139.2 mmol/L (136.0-145.0) 08/14/20 08:23 ABG Potassium 4.5 mmol/L (3.40-4.50) 08/14/20 08:23 ABG Chloride 99.0 mmol/L (98-107) 08/14/20 08:23 ABG Glucose 141 mg/dL (65-95) H 08/14/20 08:23 VBG pH 7.303 (7.320-7.420) L 08/10/20 08:29 Oxyhemoglobin 93.0 % (95.0-99.0) L 08/25/20 12:30 Carboxyhemoglobin 0.9 (0.5-1.5) 08/14/20 08:23 FiO2 80 % 08/25/20 12:30 FiO2 % 100 08/14/20 08:23 Sodium 135 mmol/L (137-145) L 08/26/20 07:11 Potassium 4.6 mmol/L (3.6-5.0) 08/26/20 07:11 Chloride 95.7 mmol/L (98-107) L 08/26/20 07:11 Carbon Dioxide 33 mmol/L (22-30) H 08/26/20 07:11 Anion Gap 11 mmol/L 08/26/20 07:11 BUN 18 mg/dL (9-20) 08/26/20 07:11 Creatinine 0.8 mg/dL (0.8-1.3) 08/26/20 07:11 Estimated GFR > 60 ml/min 08/26/20 07:11 BUN/Creatinine Ratio 23 % 08/26/20 07:11 Glucose 91 mg/dL (75-100) 08/26/20 07:11 POC Glucose 151 mg/dL (70-105) H 08/21/20 11:17 Hemoglobin A1c 6.1 % (4-6) H 08/11/20 05:39 Lactic Acid 0.80 mmol/L (0.7-2.0) 08/10/20 11:18 Calcium 9.2 mg/dL (8.4-10.2) 08/26/20 07:11 Magnesium 2.20 mg/dL (1.7-2.3) 08/26/20 07:11 Ferritin 961.4 ng/mL (30.0-300.0) H 08/25/20 16:08 Total Bilirubin 0.50 mg/dL (0.1-1.2) 08/18/20 05:13 AST 50 units/L (5-40) H 08/18/20 05:13 ALT 50 units/L (7-56) 08/18/20 05:13 Alkaline Phosphatase 103 units/L (35-129) 08/18/20 05:13 Lactate Dehydrogenase 959 units/L (91-180) H 08/25/20 16:08 C-Reactive Protein 0.10 mg/dL (0.00-1.30) 08/25/20 16:08 NT-Pro-B Natriuret Pep 36.40 pg/mL (0-450) 08/12/20 06:29 Total Protein 6.9 g/dL (6.3-8.2) 08/18/20 05:13 Albumin 3.7 g/dL (3.9-5) L 08/18/20 05:13 Albumin/Globulin Ratio 1.1 % 08/18/20 05:13 Procalcitonin 0.08 ng/mL (<0.15) 08/21/20 13:39 TSH 1.830 mlU/mL (0.270-4.200) 08/17/20 05:06 Free T4 1.01 ng/dL (0.76-1.46) 08/17/20 05:06 Arterial Blood Glucose 141 mg/dL (65-95) H 08/14/20 08:23 Arterial Blood Ionized Calcium 4.8 mg/dL (4.6-5.3) 08/14/20 08:23 Urine Color Yellow (Yellow) 08/10/20 Unknown Urine Turbidity Cloudy (Clear) 08/10/20 Unknown Urine pH 5.0 (5.0-7.0) 08/10/20 Unknown Ur Specific [place] 1.025 (1.003-1.030) 08/10/20 Unknown Urine Protein 30 mg/dl mg/dL (Negative) 08/10/20 Unknown Urine Glucose (UA) 150 mg/dL (Negative) 08/10/20 Unknown Urine Ketones Negative mg/dL (Negative) 08/10/20 Unknown Urine Blood Negative (Negative) 08/10/20 Unknown Urine Nitrite Negative (Negative) 08/10/20 Unknown Urine Bilirubin Negative (Negative) 08/10/20 Unknown Urine Urobilinogen < 2.0 mg/dL (<2.0) 08/10/20 Unknown Ur Leukocyte Esterase Negative (Negative) 08/10/20 Unknown Urine WBC (Auto) 5.0 /HPF (0.0-6.0) 08/10/20 Unknown Urine RBC (Auto) 2.0 /HPF (0.0-6.0) 08/10/20 Unknown U Epithel Cells (Auto) 1.0 /HPF (0-13.0) 08/10/20 Unknown Urine Bacteria (Auto) 1+ /HPF (Negative) 08/10/20 Unknown Urine Mucus 3+ /HPF 08/10/20 Unknown Coronavirus (PCR) Positive (Negative) A 08/11/20 Unknown Gaytan/IV: Voiding Method Urinal Active Medications - Current Medications Current Medications: Generic Name Dose Route Start Last Admin Trade Name Freq PRN Reason Stop Dose Admin Acetaminophen 650 mg 08/10/20 23:48 08/23/20 22:57 Acetaminophen 325 Mg Tab PO 650 mg Q4H PRN Administration Pain MILD(1-3)/Fever >100.5/MARTINEZ Apixaban 10 mg 08/22/20 22:00 08/26/20 21:59 Apixaban 5 Mg Tab PO 08/29/20 10:01 10 mg Q12HR MELANIE Administration Protocol Apixaban 5 mg 08/29/20 22:00 Apixaban 5 Mg Tab PO Q12HR MELANIE Protocol Artificial Tears 2 drops 08/16/20 13:44 Hypromellose 0.5% Ophth Soln 15 Ml OU Q4H PRN Dry Eye(s) Ascorbic Acid 500 mg 08/12/20 10:00 08/26/20 21:59 Ascorbic Acid 500 Mg Tab PO 500 mg BID MELANIE Administration Famotidine 20 mg 08/11/20 10:00 08/26/20 21:59 Famotidine 20 Mg/2 Ml Inj IV 20 mg BID MELANIE Administration Metoclopramide HCl 10 mg 08/10/20 23:48 Metoclopramide 10 Mg/2 Ml Inj IV Q6H PRN Nausea And Vomiting Morphine Sulfate 2 mg 08/10/20 23:48 08/25/20 10:20 Morphine 2 Mg/1 Ml Inj IV 2 mg Q4H PRN Administration Pain, Moderate (4-6) Ondansetron HCl 4 mg 08/10/20 23:48 Ondansetron 4 Mg/2 Ml Inj IV Q8H PRN Nausea And Vomiting Oxycodone/Acetaminophen 1 tab 08/10/20 23:48 08/25/20 21:08 Oxycodone /Acetaminophen 5-325mg Tab PO 1 tab Q6H PRN Administration Pain, Moderate (4-6) Sodium Chloride 10 ml 08/11/20 10:00 08/26/20 22:00 Sodium Chloride 0.9% 10 Ml Flush Syringe IV 10 ml BID MELANIE Administration Sodium Chloride 10 ml 08/10/20 23:48 08/12/20 21:04 Sodium Chloride 0.9% 10 Ml Flush Syringe IV 10 ml PRN PRN Administration LINE FLUSH Zinc Sulfate 220 mg 08/12/20 12:00 08/26/20 09:34 Zinc Sulfate 220 Mg Cap PO 220 mg QDAY MELANIE Administration Nutrition/Malnutrition Assess - Dietary Evaluation Nutrition/Malnutrition Findings: Nutrition Notes Start: 08/17/20 10:49 Freq: Status: Active Protocol: Document 08/23/20 13:30 CW (Rec: 08/23/20 13:36 CW [id number]) Nutrition Notes Initial or Follow up Reassessment Other Pertinent Diagnosis COVID-19 (+), pneu, RLE DVT, sinus bradycardia Current Diet Regular Labs/Tests 08/22/2020 Na 136 BUN 24 Cr 0.7 Pertinent Medications reviewed Height 5 ft 11 in Weight 147 kg [place] Body Weight (kg) 78.18 BMI 45.1 Weight Status Morbidly Obese Subjective/Other Information F/U for intakes. Pt intake varies. Average is around 75% of meals. Pt did not answer phone. Unsure of ONS intakes Percent of energy/protein needs met: 83%74% Burn Absent Trauma Absent Current % PO Fair (50-74%) Minimum of two criteria No #1 Nutrition Diagnosis Inadequate oral intake Diagnosis Progress(for reassessment Continues documentation) Is patient on ventilator? No Is Patient Ambulatory and/or Out of Bed No REE-([facility]-confined to bed) 2949.576 Kcal/Kg value to use for calculation 14 Approximate Energy Requirements Using 2057 kcal/Kg Calculation Used for Recommendations Kcal/kg Additional Notes Pro needs 0.8-1g/kg adjBW: 90- 113g/day Fluid needs 1ml/kcal Nutrition Intervention Change Diet Order: Continue current diet as tolerated Add Supplement/Snack (indicate name/kcal Ensure High Protein BID /protein ) Provides kCal: 320 Provides Protein (gm) 32 Goal #1 PO tolerance Goal #2 PO intake of meals plus ONS to meet at least 75% energy and pro needs Anticipated Discharge Needs: Regular Diet Follow-Up By: 08/28/20 Additional Comments F/U for intakes and ONS tolerance
[2020-08-27] MEDS ORDERED: FUROSEMIDE 20 MG/2 ML INJ IV NR (11:55)
--- NOTE | 2020-08-27 12:03 | Progress Note ---
Assessment and Plan 30 y/o morbidly obese male with acute respiratory failure secondary to COVID 19 pneumonia. now found to have DVT in lower ext. 08/27/20: Long discussion with patient again at bedside today. May need to consider repeat ECHO to look for right heart strain. We know he had VTE in the lower ext but never had to oppurtunity to truly rule him out for PE. Cousin who is an POSTING SPECIALIST in outpatient setting at [facility] asked some questions so I spoke with her via the phone. She is going to help encourage proning. Will give more lasix today. Very very guarded prognosis. 08/26/20: Pulm status is more stable today compared to yesterday. Continue b ipap PRN and QHS. Will give IV lasix again today. Prognosis still remains very guarded. 08/25/20: Placed back on bipap this am secondary to desaturations and lower mental state than before. Patient has been stable and making improvements but now seems to be headed in the wrong direction. Will monitor very closely as he is a high risk for intubation and bad outcomes. Very very guarded prognosis. Will give lasix today. 08/24/20: Encouraged more proning. Continue BIpap QHS and PRN. unfortunately, no funding, patient would be a good LTACH candidate as he will likely take a long time to wean from HFNC. 08/23/20: No new recs. Proning is metcalf. Will continue to follow. Appreciate ID recs and help. 08/22/20: Bipap PRN and QHS. Will given lasix today. Prone as tolerated. PT continues. Slight improvement. Will continue to follow. 08/21/20: Bipap PRN and QHS. Hold on lasix today. Continue to prone as much as tolerated. Will order PT consult. 08/18/20: Bipap pRN and QHS. More lasix today. Prone as tolerated during the day and sleep prone at night. Continue to try to hold off on intubation. Guarded prognosis. 08/17/20: Continue anticoagulation. Still trying to prevent intubation however will do electively if and when needed to prevent and emergent situation as patient will likely be difficult given neck and body habitus. Continue prone as tolerated. Steroids and remdesivir. 08/16/20: Anticoagulation. Prone as tolerated. Wean bipap as tolerated. Prognosis remains guarded. Trying to prevent intubation given poor outcomes associated with mechanically ventilated obese COVID patients. 08/15/20: Continue therapeutic anticoagulation. No current indication for va scular consult given no evidence of right heart strain on echo. CT would only be beneficial if we thought it would show large enough clot to warrant EKOS and with no evidence of strain, I doubt that will be the case. Continue proning as much as tolerated. Spoke with mother over the phone to update her. Patient also got actemra on yesterday as well. Prognosis remains guarded 08/14/20: Will accept sats in the mid 80's as long as mental state and work of breathing do not change. AGree with lasix therapy. Found to have large DVT on right. Spoke with [facility] and asked them to order stat echo to look for right heart strain, and if present may need to consider echos. Await echo before vascular consult. Prone if possible. Long discussion with mother on phone. Gave her a list of the meds he is on and what our current plan is. Also very candid with her and son at bedside that the mortality rate with COVID is very very high. 08/13/20: Lasix again today. Continue to alternate between HFNC with NRB and bipap. Prognosis is very very guarded. Very very guarded to poor prognosis given CXR appearance, and body habitus, along with rapid decline in self sustaning oxygen levels. Agree with lasix and increase in steroids. Must prone. Very high likelihood for mechanical ventilation which would carry a high mortality for patient. Will continue to follow. No additional IVF's unless indicated. Subjective Date of service: 08/27/20 Principal diagnosis: COVID Interval history: No acute events overnight. WAs on HFNC and NRB last night. Wore bipap last night at 90%. Objective Vital Signs - 12hr 08/27/20 08/27/20 08/27/20 00:00 00:01 00:19 Temperature Pulse Rate 97 H 102 H Respiratory 25 H 35 H Rate Blood Pressure 119/76 120/83 O2 Sat by Pulse 86 93 Oximetry 08/27/20 08/27/20 08/27/20 01:00 02:00 03:00 Temperature Pulse Rate 90 87 80 Respiratory 19 13 14 Rate Blood Pressure 119/90 138/83 119/62 O2 Sat by Pulse 92 96 96 Oximetry 08/27/20 08/27/20 08/27/20 03:55 04:00 05:00 Temperature 100.0 F H Pulse Rate 79 84 Respiratory 9 L 12 Rate Blood Pressure 137/73 147/88 O2 Sat by Pulse 94 94 Oximetry 08/27/20 08/27/20 08/27/20 05:16 06:00 07:00 Temperature Pulse Rate 83 82 78 Respiratory 20 12 13 Rate Blood Pressure 137/73 137/60 124/72 O2 Sat by Pulse 94 95 95 Oximetry 08/27/20 08/27/20 08/27/20 07:25 08:00 08:22 Temperature 99.3 F Pulse Rate 84 Respiratory 13 Rate Blood Pressure 140/79 O2 Sat by Pulse 92 94 Oximetry 08/27/20 08/27/20 08/27/20 09:00 10:00 11:00 Temperature Pulse Rate 85 86 90 Respiratory 15 15 11 L Rate Blood Pressure 132/77 132/77 132/77 O2 Sat by Pulse 90 92 89 Oximetry CBC and BMP: 08/26/20 07:11 08/26/20 07:11 ABG, PT/INR, D-dimer: ABG ABG pH 7.313 pH Units (7.350-7.450) L 08/25/20 12:30 POC ABG pCO2 46.9 mmHg (32.0-48.0) 08/14/20 08:23 ABG pCO2 67.2 mm Hg 08/25/20 12:30 POC ABG pO2 50.0 mmHg (83-108) L 08/14/20 08:23 ABG pO2 76.2 mm Hg (80.0-90.0) L 08/25/20 12:30 POC ABG HCO3 31.4 08/14/20 08:23 ABG O2 Saturation 94.9 % (95.0-99.0) L 08/25/20 12:30 PT/INR, D-dimer PT 12.6 Sec. (12.2-14.9) 08/10/20 08:29 INR 0.96 (0.87-1.13) 08/10/20 08:29 D-Dimer 4487.76 ng/mlDDU (0-234) H 08/25/20 16:08 Abnormal lab findings: Abnormal Labs 08/10/20 08/10/20 08/10/20 08:29 08:29 08:29 WBC Lymph % (Auto) [place] % (Auto) 8.4 H Lymph # (Auto) [place] # (Auto) Seg Neutrophils % Seg Neuts % (Manual) Lymphocytes % (Manual) Seg Neutrophils # Seg Neutrophils # Man Lymphocytes # (Manual) Monocytes # (Manual) D-Dimer ABG pH POC ABG pCO2 POC ABG pO2 ABG pO2 ABG HCO3 ABG O2 Saturation ABG Base Excess ABG Hemoglobin ABG Oxyhemoglobin ABG Potassium ABG Glucose VBG pH 7.303 L Oxyhemoglobin Sodium Potassium Chloride Carbon Dioxide BUN Creatinine Glucose 132 H POC Glucose Hemoglobin A1c Ferritin AST Lactate Dehydrogenase C-Reactive Protein Albumin Arterial Blood Glucose Coronavirus (PCR) 08/11/20 08/11/20 08/11/20 05:39 05:39 05:39 WBC Lymph % (Auto) 12.5 L [place] % (Auto) Lymph # (Auto) [place] # (Auto) Seg Neutrophils % 84.2 H Seg Neuts % (Manual) Lymphocytes % (Manual) Seg Neutrophils # 9.1 H Seg Neutrophils # Man Lymphocytes # (Manual) Monocytes # (Manual) D-Dimer ABG pH POC ABG pCO2 POC ABG pO2 ABG pO2 ABG HCO3 ABG O2 Saturation ABG Base Excess ABG Hemoglobin ABG Oxyhemoglobin ABG Potassium ABG Glucose VBG pH Oxyhemoglobin Sodium Potassium Chloride Carbon Dioxide BUN Creatinine Glucose 125 H POC Glucose Hemoglobin A1c 6.1 H Ferritin AST Lactate Dehydrogenase C-Reactive Protein Albumin Arterial Blood Glucose Coronavirus (PCR) 08/11/20 08/11/20 08/11/20 18:58 18:58 18:58 WBC Lymph % (Auto) [place] % (Auto) Lymph # (Auto) [place] # (Auto) Seg Neutrophils % Seg Neuts % (Manual) Lymphocytes % (Manual) Seg Neutrophils # Seg Neutrophils # Man Lymphocytes # (Manual) Monocytes # (Manual) D-Dimer 464.84 H ABG pH POC ABG pCO2 POC ABG pO2 ABG pO2 ABG HCO3 ABG O2 Saturation ABG Base Excess ABG Hemoglobin ABG Oxyhemoglobin ABG Potassium ABG Glucose VBG pH Oxyhemoglobin Sodium Potassium Chloride Carbon Dioxide BUN Creatinine Glucose POC Glucose Hemoglobin A1c Ferritin 528.7 H AST Lactate Dehydrogenase 637 H C-Reactive Protein 11.30 H Albumin Arterial Blood Glucose Coronavirus (PCR) 08/11/20 08/11/2008/12/21 19:08 Unknown 06:29 WBC 11.2 H Lymph % (Auto) 8.6 L [place] % (Auto) Lymph # (Auto) 1.0 L [place] # (Auto) Seg Neutrophils % 88.3 H Seg Neuts % (Manual) Lymphocytes % (Manual) Seg Neutrophils # 9.8 H Seg Neutrophils # Man Lymphocytes # (Manual) Monocytes # (Manual) D-Dimer ABG pH POC ABG pCO2 POC ABG pO2 ABG pO2 ABG HCO3 ABG O2 Saturation ABG Base Excess ABG Hemoglobin ABG Oxyhemoglobin ABG Potassium ABG Glucose VBG pH Oxyhemoglobin Sodium Potassium Chloride Carbon Dioxide BUN Creatinine Glucose 161 H POC Glucose Hemoglobin A1c Ferritin AST Lactate Dehydrogenase C-Reactive Protein Albumin Arterial Blood Glucose Coronavirus (PCR) Positive A 08/12/20 08/12/20 08/12/20 06:29 06:29 06:29 WBC Lymph % (Auto) [place] % (Auto) Lymph # (Auto) [place] # (Auto) Seg Neutrophils % Seg Neuts % (Manual) Lymphocytes % (Manual) Seg Neutrophils # Seg Neutrophils # Man Lymphocytes # (Manual) Monocytes # (Manual) D-Dimer 830.34 H ABG pH POC ABG pCO2 POC ABG pO2 ABG pO2 ABG HCO3 ABG O2 Saturation ABG Base Excess ABG Hemoglobin ABG Oxyhemoglobin ABG Potassium ABG Glucose VBG pH Oxyhemoglobin Sodium Potassium Chloride Carbon Dioxide 31 H BUN Creatinine Glucose 138 H POC Glucose Hemoglobin A1c Ferritin 572.6 H AST 42 H Lactate Dehydrogenase 706 H C-Reactive Protein 17.30 H Albumin 3.7 L Arterial Blood Glucose Coronavirus (PCR) 08/12/20 08/12/20 08/12/20 13:21 14:55 21:59 WBC Lymph % (Auto) [place] % (Auto) Lymph # (Auto) [place] # (Auto) Seg Neutrophils % Seg Neuts % (Manual) Lymphocytes % (Manual) Seg Neutrophils # Seg Neutrophils # Man Lymphocytes # (Manual) Monocytes # (Manual) D-Dimer ABG pH 7.315 L POC ABG pCO2 57.1 H POC ABG pO2 47.8 L ABG pO2 65.8 L ABG HCO3 31.4 H ABG O2 Saturation 91.7 L ABG Base Excess ABG Hemoglobin 19.3 H ABG Oxyhemoglobin ABG Potassium 4.9 H ABG Glucose 182 H VBG pH Oxyhemoglobin 89.7 L Sodium Potassium Chloride Carbon Dioxide BUN Creatinine Glucose POC Glucose 142 H Hemoglobin A1c Ferritin AST Lactate Dehydrogenase C-Reactive Protein Albumin Arterial Blood Glucose 182 H Coronavirus (PCR) 08/13/20 08/13/20 08/13/20 05:35 05:35 12:11 WBC 12.0 H Lymph % (Auto) 8.1 L [place] % (Auto) Lymph # (Auto) 1.0 L [place] # (Auto) Seg Neutrophils % 88.0 H Seg Neuts % (Manual) Lymphocytes % (Manual) Seg Neutrophils # 10.5 H Seg Neutrophils # Man Lymphocytes # (Manual) Monocytes # (Manual) D-Dimer ABG pH POC ABG pCO2 POC ABG pO2 ABG pO2 ABG HCO3 ABG O2 Saturation ABG Base Excess ABG Hemoglobin ABG Oxyhemoglobin ABG Potassium ABG Glucose VBG pH Oxyhemoglobin Sodium Potassium 5.1 H Chloride Carbon Dioxide 31 H BUN 25 H Creatinine Glucose 174 H POC Glucose 154 H Hemoglobin A1c Ferritin AST 41 H Lactate Dehydrogenase 996 H C-Reactive Protein Albumin 3.8 L Arterial Blood Glucose Coronavirus (PCR) 08/13/20 08/13/20 08/14/20 16:18 23:24 05:21 WBC 14.2 H Lymph % (Auto) 8.2 L [place] % (Auto) Lymph # (Auto) [place] # (Auto) 0.9 H Seg Neutrophils % 85.4 H Seg Neuts % (Manual) Lymphocytes % (Manual) Seg Neutrophils # 12.2 H Seg Neutrophils # Man Lymphocytes # (Manual) Monocytes # (Manual) D-Dimer ABG pH POC ABG pCO2 POC ABG pO2 ABG pO2 ABG HCO3 ABG O2 Saturation ABG Base Excess ABG Hemoglobin ABG Oxyhemoglobin ABG Potassium ABG Glucose VBG pH Oxyhemoglobin Sodium Potassium Chloride Carbon Dioxide BUN Creatinine Glucose POC Glucose 188 H 127 H Hemoglobin A1c Ferritin AST Lactate Dehydrogenase C-Reactive Protein Albumin Arterial Blood Glucose Coronavirus (PCR) 08/14/20 08/14/20 08/14/20 05:21 05:21 05:21 WBC Lymph % (Auto) [place] % (Auto) Lymph # (Auto) [place] # (Auto) Seg Neutrophils % Seg Neuts % (Manual) Lymphocytes % (Manual) Seg Neutrophils # Seg Neutrophils # Man Lymphocytes # (Manual) Monocytes # (Manual) D-Dimer > 57001 H ABG pH POC ABG pCO2 POC ABG pO2 ABG pO2 ABG HCO3 ABG O2 Saturation ABG Base Excess ABG Hemoglobin ABG Oxyhemoglobin ABG Potassium ABG Glucose VBG pH Oxyhemoglobin Sodium Potassium Chloride Carbon Dioxide 32 H 33 H BUN 26 H 26 H Creatinine Glucose 152 H 156 H POC Glucose Hemoglobin A1c Ferritin AST 53 H 54 H Lactate Dehydrogenase 1249 H C-Reactive Protein 9.90 H Albumin 3.7 L 3.7 L Arterial Blood Glucose Coronavirus (PCR) 08/14/20 08/14/20 08/14/20 05:21 05:58 08:23 WBC Lymph % (Auto) [place] % (Auto) Lymph # (Auto) [place] # (Auto) Seg Neutrophils % Seg Neuts % (Manual) Lymphocytes % (Manual) Seg Neutrophils # Seg Neutrophils # Man Lymphocytes # (Manual) Monocytes # (Manual) D-Dimer ABG pH POC ABG pCO2 POC ABG pO2 50.0 L ABG pO2 ABG HCO3 ABG O2 Saturation ABG Base Excess ABG Hemoglobin ABG Oxyhemoglobin 84.0 L ABG Potassium ABG Glucose 141 H VBG pH Oxyhemoglobin Sodium Potassium Chloride Carbon Dioxide BUN Creatinine Glucose POC Glucose 139 H Hemoglobin A1c Ferritin 1198.0 H AST Lactate Dehydrogenase C-Reactive Protein Albumin Arterial Blood Glucose 141 H Coronavirus (PCR) 08/15/20 08/15/20 08/16/20 05:16 05:16 05:26 WBC 13.7 H 17.7 H Lymph % (Auto) 8.2 L [place] % (Auto) Lymph # (Auto) [place] # (Auto) Seg Neutrophils % 86.2 H Seg Neuts % (Manual) 91.0 H 88.0 H Lymphocytes % (Manual) 7.0 L 9.0 L Seg Neutrophils # 15.3 H Seg Neutrophils # Man 12.5 H 15.6 H Lymphocytes # (Manual) 1.0 L Monocytes # (Manual) D-Dimer ABG pH POC ABG pCO2 POC ABG pO2 ABG pO2 ABG HCO3 ABG O2 Saturation ABG Base Excess ABG Hemoglobin ABG Oxyhemoglobin ABG Potassium ABG Glucose VBG pH Oxyhemoglobin Sodium Potassium Chloride Carbon Dioxide 32 H BUN 29 H Creatinine Glucose 150 H POC Glucose Hemoglobin A1c Ferritin AST Lactate Dehydrogenase 1150 H C-Reactive Protein Albumin 3.5 L Arterial Blood Glucose Coronavirus (PCR) 0308/16/20 08/16/20 05:26 05:26 05:26 WBC Lymph % (Auto) [place] % (Auto) Lymph # (Auto) [place] # (Auto) Seg Neutrophils % Seg Neuts % (Manual) Lymphocytes % (Manual) Seg Neutrophils # Seg Neutrophils # Man Lymphocytes # (Manual) Monocytes # (Manual) D-Dimer > 61764 H ABG pH POC ABG pCO2 POC ABG pO2 ABG pO2 ABG HCO3 ABG O2 Saturation ABG Base Excess ABG Hemoglobin ABG Oxyhemoglobin ABG Potassium ABG Glucose VBG pH Oxyhemoglobin Sodium Potassium 5.2 H Chloride Carbon Dioxide BUN 25 H Creatinine Glucose 163 H POC Glucose Hemoglobin A1c Ferritin 1013.0 H AST Lactate Dehydrogenase C-Reactive Protein 4.00 H Albumin 3.6 L Arterial Blood Glucose Coronavirus (PCR) 08/17/20 08/17/20 08/17/20 05:06 05:06 07:51 WBC 20.7 H Lymph % (Auto) [place] % (Auto) Lymph # (Auto) [place] # (Auto) Seg Neutrophils % Seg Neuts % (Manual) 86.0 H Lymphocytes % (Manual) 7.0 L Seg Neutrophils # Seg Neutrophils # Man 17.8 H Lymphocytes # (Manual) Monocytes # (Manual) 1.2 H D-Dimer ABG pH POC ABG pCO2 POC ABG pO2 ABG pO2 ABG HCO3 ABG O2 Saturation ABG Base Excess ABG Hemoglobin ABG Oxyhemoglobin ABG Potassium ABG Glucose VBG pH Oxyhemoglobin Sodium Potassium Chloride 96.5 L Carbon Dioxide 31 H BUN 29 H Creatinine Glucose 121 H POC Glucose 110 H Hemoglobin A1c Ferritin AST 46 H Lactate Dehydrogenase C-Reactive Protein Albumin 3.7 L Arterial Blood Glucose Coronavirus (PCR) 08/17/20 08/17/20 08/18/20 11:42 21:45 05:13 WBC Lymph % (Auto) [place] % (Auto) Lymph # (Auto) [place] # (Auto) Seg Neutrophils % Seg Neuts % (Manual) Lymphocytes % (Manual) Seg Neutrophils # Seg Neutrophils # Man Lymphocytes # (Manual) Monocytes # (Manual) D-Dimer > 1000 H ABG pH POC ABG pCO2 POC ABG pO2 ABG pO2 ABG HCO3 ABG O2 Saturation ABG Base Excess ABG Hemoglobin ABG Oxyhemoglobin ABG Potassium ABG Glucose VBG pH Oxyhemoglobin Sodium Potassium Chloride Carbon Dioxide BUN Creatinine Glucose POC Glucose 122 H 143 H Hemoglobin A1c Ferritin AST Lactate Dehydrogenase C-Reactive Protein Albumin Arterial Blood Glucose Coronavirus (PCR) 08/18/20 08/18/20 08/21/20 05:13 05:13 11:17 WBC Lymph % (Auto) [place] % (Auto) Lymph # (Auto) [place] # (Auto) Seg Neutrophils % Seg Neuts % (Manual) Lymphocytes % (Manual) Seg Neutrophils # Seg Neutrophils # Man Lymphocytes # (Manual) Monocytes # (Manual) D-Dimer ABG pH POC ABG pCO2 POC ABG pO2 ABG pO2 ABG HCO3 ABG O2 Saturation ABG Base Excess ABG Hemoglobin ABG Oxyhemoglobin ABG Potassium ABG Glucose VBG pH Oxyhemoglobin Sodium 133 L Potassium Chloride 94.7 L Carbon Dioxide BUN 33 H Creatinine Glucose 110 H POC Glucose 151 H Hemoglobin A1c Ferritin 979.8 H AST 50 H Lactate Dehydrogenase C-Reactive Protein Albumin 3.7 L Arterial Blood Glucose Coronavirus (PCR) 08/21/20 08/21/20 08/21/20 13:39 13:39 15:55 WBC Lymph % (Auto) [place] % (Auto) Lymph # (Auto) [place] # (Auto) Seg Neutrophils % Seg Neuts % (Manual) Lymphocytes % (Manual) Seg Neutrophils # Seg Neutrophils # Man Lymphocytes # (Manual) Monocytes # (Manual) D-Dimer 6731.66 H ABG pH POC ABG pCO2 POC ABG pO2 ABG pO2 ABG HCO3 ABG O2 Saturation ABG Base Excess ABG Hemoglobin ABG Oxyhemoglobin ABG Potassium ABG Glucose VBG pH Oxyhemoglobin Sodium Potassium Chloride Carbon Dioxide BUN Creatinine Glucose POC Glucose Hemoglobin A1c Ferritin 1019.0 H AST Lactate Dehydrogenase 1251 H C-Reactive Protein Albumin Arterial Blood Glucose Coronavirus (PCR) 08/22/20 08/22/20 08/25/20 05:23 05:23 12:30 WBC 24.7 H Lymph % (Auto) [place] % (Auto) Lymph # (Auto) [place] # (Auto) Seg Neutrophils % Seg Neuts % (Manual) Lymphocytes % (Manual) Seg Neutrophils # Seg Neutrophils # Man Lymphocytes # (Manual) Monocytes # (Manual) D-Dimer ABG pH 7.313 L POC ABG pCO2 POC ABG pO2 ABG pO2 76.2 L ABG HCO3 33.3 H ABG O2 Saturation 94.9 L ABG Base Excess 5.0 H ABG Hemoglobin 13.4 L ABG Oxyhemoglobin ABG Potassium ABG Glucose VBG pH Oxyhemoglobin 93.0 L Sodium 136 L Potassium Chloride 96.3 L Carbon Dioxide BUN 24 H Creatinine 0.7 L Glucose 115 H POC Glucose Hemoglobin A1c Ferritin AST Lactate Dehydrogenase C-Reactive Protein Albumin Arterial Blood Glucose Coronavirus (PCR) 08/25/20 08/25/20 08/25/20 16:08 16:08 16:08 WBC Lymph % (Auto) [place] % (Auto) Lymph # (Auto) [place] # (Auto) Seg Neutrophils % Seg Neuts % (Manual) Lymphocytes % (Manual) Seg Neutrophils # Seg Neutrophils # Man Lymphocytes # (Manual) Monocytes # (Manual) D-Dimer 4487.76 H ABG pH POC ABG pCO2 POC ABG pO2 ABG pO2 ABG HCO3 ABG O2 Saturation ABG Base Excess ABG Hemoglobin ABG Oxyhemoglobin ABG Potassium ABG Glucose VBG pH Oxyhemoglobin Sodium Potassium Chloride Carbon Dioxide BUN Creatinine Glucose POC Glucose Hemoglobin A1c Ferritin 961.4 H AST Lactate Dehydrogenase 959 H C-Reactive Protein Albumin Arterial Blood Glucose Coronavirus (PCR) 08/26/20 08/26/20 07:11 07:11 WBC Lymph % (Auto) [place] % (Auto) 9.8 H Lymph # (Auto) [place] # (Auto) 1.0 H Seg Neutrophils % Seg Neuts % (Manual) Lymphocytes % (Manual) Seg Neutrophils # Seg Neutrophils # Man Lymphocytes # (Manual) Monocytes # (Manual) D-Dimer ABG pH POC ABG pCO2 POC ABG pO2 ABG pO2 ABG HCO3 ABG O2 Saturation ABG Base Excess ABG Hemoglobin ABG Oxyhemoglobin ABG Potassium ABG Glucose VBG pH Oxyhemoglobin Sodium 135 L Potassium Chloride 95.7 L Carbon Dioxide 33 H BUN Creatinine Glucose POC Glucose Hemoglobin A1c Ferritin AST Lactate Dehydrogenase C-Reactive Protein Albumin Arterial Blood Glucose Coronavirus (PCR)
--- NOTE | 2020-08-27 12:32 | Progress Note ---
Assessment and Plan Cultures: Blood culture 08/10/2020 no growth SARS CoV2 PCR positive 08/10/2020 urine culture: No growth Assessment: 30 years old male with history of morbid obesity, admitted on 08/10/2020 secondary to 3-day history of intermittent frontal headache: #Leukocytosis: resolved, likely due to steroids/severe hypoxia, repeat procalcitonin level is low #Severe COVID19 pneumonia: On steroids, completed remdesivir. S/P actemra on 08/14/2020. Completed empiric abx course. Procal is low, additional abx not needed. CXR not significant change. Markers trending down #Acute hypoxemic respiratory failure: severe, on HFNC/BIPAP hs/prn 100% #Acute right leg DVT, very high d-dimer. On anticoagulation. #LONNY: Resolved #Morbid obesity: Associated with worse outcomes Recommendations: -Completed steroids -S/P remdesivir, actemra -Monitor inflammatory markers - ferritin, Ddimer, CRP, LDH ordered today -continue anticoagulation for DVT/Eliquis -prone positioning whenever possible -pulm on board Guarded prognosis, patient is at high risk of intubation, overall some better today Jaylyn Doe MD Infectious Diseases Senior [employer] Applications Developer [facility] ([facility]) M [phone] O [phone] Subjective Principal diagnosis: COVID Objective - Constitutional Vitals: Vital Signs Temp Pulse Resp BP Pulse Ox 98.4 F 98 H 17 132/77 90 08/27/20 12:13 08/27/20 12:00 08/27/20 12:00 08/27/20 12:00 08/27/20 12:00 Temperature -Last 24 Hours Temperature 98.4 F Temperature 99.3 F Temperature 100.0 F Temperature 99.5 F Temperature 99.6 F Temperature 98.8 F - Labs CBC & Chem 7: 08/26/20 07:11 08/26/20 07:11
[2020-08-27] MEDS: ZINC SULFATE 220 MG CAP PO SCH (17:23)
[2020-08-27] MEDS: ASCORBIC ACID 500 MG TAB PO SCH ×2 (17:23→21:30)
[2020-08-27] MEDS: FAMOTIDINE 20 MG TAB PO SCH ×2 (17:23→21:30)
[2020-08-27] MEDS: APIXABAN 5 MG TAB PO SCH ×2 (17:24→21:30)
--- NOTE | 2020-08-28 08:33 | Progress Note ---
Assessment and Plan Assessment and plan: --Acute hypoxic respiratory failure secondary to COVID-19 PNA Pt remains on high flow oxygen 40/100/94 intermittent BiPAP Consider CTA chest to evaluate the cause of persistent hypoxia However patient is too unstable to go for the test pulmonary following, Home O2 evaluation at discharge --COVID-19 Pneumonia Continue antibiotics Continue steroids total 10 days s/p Remdesivir, s/p tocilizumab Oxygen supplementation with BiPAP Trend inflammatory markers Prone positioning strongly advised ID and pulmonology following --Right lower extremity DVT on LE Doppler study D-dimer more than 10,000 US shows RLE DVT. Echocardiogram shows no right heart strain. DC Lovenox, transitioned to Eliquis --Sinus bradycardia /resolved Likely from remdesivir Heart rate in 60s and 70s today TSH wnl --Morbid obesity; BMI 41.9 Diet and exercise advised Patient needs outpatient bariatric surgical/medical weight reduction consult when medically stable --Positive DVT ;-on Eliquis Continues to be on high flow oxygen, Wean as tolerated We will closely monitor the patient and adjust management as needed Health Insurance Specialist recommendations noted and appreciated Plan of care reviewed with the patient and his nurse and the case management The high probability of a clinically significant, sudden or life threatening deterioration of the [pulmonary,Vascular,ID,CVS and hematology] system(s) required my full and direct attention, intervention and personal management. The aggregate critical care time was [32] minutes. This time is in addition to time spent performing reported procedures but includes the following: [x] Data Review and interpretation [x] Patient assessment and monitoring of vital signs [x] Documentation [x] Medication orders and management Brief history 30-year-old male with morbid obesity weighing about 310 pounds was admitted through emergency room with frontal headache for 3 days. Patient was noted to be hypoxic with shortness of breath and cough O2 sats room air were in the 80s, requiring high flow oxygen, BiPAP, patient was admitted to IMCU Patient was PUI, placed in isolation, gillespie PCR test was positive, evaluated by ID and pulmonary, medications optimized and patient was being managed per COVID-19 protocols and guidelines. Patient continues to depend on high flow oxygen and BiPAP. Today patient continues to be on very high flow oxygen of 40 L/100% FiO2/94 to 96% O2 sats Patient advised bariatric surgical consultation upon discharge for weight reduction program Work-up in the emergency room showed bilateral patchy opacities in the lungs and hypoxia-hence he was admitted for bilateral pneumonia and possible Covid pneumonia. No significant past medical history Daily Hospital course: 08/11. Patient seen examined at bedside this morning. Has no complaints. Febrile this a.m.-103 Fahrenheit. On Tylenol as needed. COVID-19 test ordered. Remains on steroids. ID consult if COVID-19 is positive. 08/12. His COVID-19 test is positive. He was started on remdesivir last night. Oxygen requirement increased overnight. Inflammatory markers increasing. Repeat chest xray shows worsening infiltrates. Ordered BNP. Lasix 40mg IV ordered. I ncreased dexamethasone to 6mg BID. Pulmonology consulted. Will place on continuous pulse oximetry. Incentive spirometer ordered. Advised prone positioning. 08/13. Not feeling better. Seen on BIPAP. Remains on steroids, remdesivir and antibiotics. Vitals stable. 08/14. Still maintaining sats even on BiPAP. Lasix 40 mg IV ordered. D-dimer this a.m. is more than 10,000. Lovenox increased to 150 mg twice daily. Ultrasound lower extremities Doppler showed a right DVT. Echocardiogram ordered to rule out right heart strain. Pending results, patient may need vascular surgery evaluation for possible thrombectomy. Continue on BiPAP and continue to monitor respiratory status closely. 08/15. Sats better this AM. Received toculizumab yesterday. Advised him to prone as much as possible. Echo shows normal EF with no right heart strain. I/Os reviewed. He is diuresing well. Renal function is stable. Will give additional lasix today. Pulmonology following 08/16. Remains on remdesivir. Still on BIPAP. Will give lasix 20mg IV. HR is low - likley effect of remdesivir. Will continue to monitor closely 08/17. Sats in the 90's this AM. Still on BIPAP. 08/18; patient remains hypoxic requiring BiPAP and 100% nonrebreather intermittently 08/19; Continue supportive care, wean oxygen as tolerated. Encouraged PRONE positioning if able to tolerate. 08/20:Remains on BiPAP. continue lasix, still not proninig, encouraged to prone, FIO2 down to 90% with sat of 96%. Continue care, prognosis still guarded. 08/21: Patient down on high flow. Continue to encourage proning position. Still with guarded prognosis. Elevation in WBC noted to 20 this could be secondary to steroids I will continue to monitor. No fever noted at this time. Patient's respiratory status has stabilized on the high flow with no shallow breathing noted Discussed with the nurse at bedside 08/22; DC Lovenox therapeutic dose, start Eliquis per protocol to treat lower extremity DVT. 08/23; patient remains on high flow oxygen 40 L/100 FiO2/94% O2 sats, intermittent BiPAP 08/24; patient remains on high flow oxygen and BiPAP, consultants recommendations noted and appreciated 08/25; patient continues to be hypoxemic, on high flow oxygen 40L/ 100 FiO2/95 O2 sats and on intermittent BiPAP 08/26; patient continues to be on high flow oxygen, unable to wean follow pulmonary recommendations 08/27; patient remains on high flow oxygen 40 L/100% FiO2/95% O2 sats with intermittent BiPAP treatment 08/28; patient remains on high flow oxygen, strongly advised to prone as tolerated, consults and recommendations noted and appreciated History Interval history: I have seen and examined the patient at the bedside in [facility] this morning Patient's chart and medications reviewed Patient remains on high flow oxygen 40 L/100% FiO2/96 O2 sats In mild distress Vital signs noted Hospitalist Physical - Constitutional Vitals: Temp Pulse Resp BP Pulse Ox 98.6 F 79 14 122/67 93 08/28/20 04:00 08/28/20 06:00 08/28/20 06:00 08/28/20 06:00 08/28/20 06:00 General appearance: Present: no acute distress, well-nourished, obese (Morbidly obese) - EENT Eyes: Present: PERRL, EOM intact - Neck Neck: Present: supple, normal ROM - Respiratory Respiratory effort: normal Respiratory: bilateral: diminished, rhonchi, negative: rales, wheezing - Cardiovascular Rhythm: regular Heart Sounds: Present: S1 & S2 - Extremities Extremities: no ischemia, No edema - Abdominal General gastrointestinal: soft, non-tender, non-distended, normal bowel sounds - Integumentary Integumentary: Present: clear, warm - Psychiatric Psychiatric: appropriate mood/affect, cooperative - Neurologic Neurologic: CNII-XII intact, moves all extremities Results - Labs CBC & Chem 7: 08/26/20 07:11 08/26/20 07:11 Labs: Laboratory Last Values WBC 10.4 K/mm3 (4.5-11.0) 08/26/20 07:11 RBC 4.37 M/mm3 (3.65-5.03) 08/26/20 07:11 Hgb 13.2 gm/dl (11.8-15.2) 08/26/20 07:11 Hct 39.2 % (35.5-45.6) 08/26/20 07:11 MCV 90 fl (84-94) 08/26/20 07:11 MCH 30 pg (28-32) 08/26/20 07:11 MCHC 34 % (32-34) 08/26/20 07:11 RDW 14.2 % (13.2-15.2) 08/26/20 07:11 Plt Count 259 K/mm3 (140-440) 08/26/20 07:11 Lymph % (Auto) 20.2 % (13.4-35.0) 08/26/20 07:11 Richardson % (Auto) 9.8 % (0.0-7.3) H 08/26/20 07:11 Eos % (Auto) 4.2 % (0.0-4.3) 08/26/20 07:11 Baso % (Auto) 0.5 % (0.0-1.8) 08/26/20 07:11 Lymph # (Auto) 2.1 K/mm3 (1.2-5.4) 08/26/20 07:11 Richardson # (Auto) 1.0 K/mm3 (0.0-0.8) H 08/26/20 07:11 Eos # (Auto) 0.4 K/mm3 (0.0-0.4) 08/26/20 07:11 Baso # (Auto) 0.1 K/mm3 (0.0-0.1) 08/26/20 07:11 Add Manual Diff Complete 08/17/20 05:06 Total Counted 100 08/17/20 05:06 Seg Neutrophils % 65.3 % (40.0-70.0) 08/26/20 07:11 Seg Neuts % (Manual) 86.0 % (40.0-70.0) H 08/17/20 05:06 Lymphocytes % (Manual) 7.0 % (13.4-35.0) L 08/17/20 05:06 Monocytes % (Manual) 6.0 % (0.0-7.3) 08/17/20 05:06 Eosinophils % (Manual) 1.0 % (0.0-4.3) 08/17/20 05:06 Metamyelocytes % 2.0 % 08/15/20 05:16 Nucleated RBC % Not Reportable 08/17/20 05:06 Seg Neutrophils # 6.8 K/mm3 (1.8-7.7) 08/26/20 07:11 Seg Neutrophils # Man 17.8 K/mm3 (1.8-7.7) H 08/17/20 05:06 Band Neutrophils # 0.0 K/mm3 08/17/20 05:06 Lymphocytes # (Manual) 1.4 K/mm3 (1.2-5.4) 08/17/20 05:06 Abs React Lymphs (Man) 0.0 K/mm3 08/17/20 05:06 Monocytes # (Manual) 1.2 K/mm3 (0.0-0.8) H 08/17/20 05:06 Eosinophils # (Manual) 0.2 K/mm3 (0.0-0.4) 08/17/20 05:06 Basophils # (Manual) 0.0 K/mm3 (0.0-0.1) 08/17/20 05:06 Metamyelocytes # 0.0 K/mm3 08/17/20 05:06 Myelocytes # 0.0 K/mm3 08/17/20 05:06 Promyelocytes # 0.0 K/mm3 08/17/20 05:06 Blast Cells # 0.0 K/mm3 08/17/20 05:06 WBC Morphology Not Reportable 08/17/20 05:06 Hypersegmented Neuts Not Reportable 08/17/20 05:06 Hyposegmented Neuts Not Reportable 08/17/20 05:06 Hypogranular Neuts Not Reportable 08/17/20 05:06 Smudge Cells Not Reportable 08/17/20 05:06 Toxic Granulation Not Reportable 08/17/20 05:06 Toxic Vacuolation Not Reportable 08/17/20 05:06 Dohle Bodies Not Reportable 08/17/20 05:06 Pelger-Huet Anomaly Not Reportable 08/17/20 05:06 Juan Luis Rods Not Reportable 08/17/20 05:06 Platelet Estimate Consistent w auto 08/17/20 05:06 Clumped Platelets Not Reportable 08/17/20 05:06 Plt Clumps, EDTA Not Reportable 08/17/20 05:06 Large Platelets Not Reportable 08/17/20 05:06 Giant Platelets Not Reportable 08/17/20 05:06 Platelet Satelliting Not Reportable 08/17/20 05:06 Plt Morphology Comment Not Reportable 08/17/20 05:06 RBC Morphology Not Reportable 08/17/20 05:06 Dimorphic RBCs Not Reportable 08/17/20 05:06 Polychromasia Not Reportable 08/17/20 05:06 Hypochromasia Not Reportable 08/17/20 05:06 Poikilocytosis Not Reportable 08/17/20 05:06 Anisocytosis Few 08/17/20 05:06 Microcytosis Not Reportable 08/17/20 05:06 Macrocytosis Not Reportable 08/17/20 05:06 Spherocytes Not Reportable 08/17/20 05:06 Pappenheimer Bodies Not Reportable 08/17/20 05:06 Sickle Cells Not Reportable 08/17/20 05:06 Target Cells Not Reportable 08/17/20 05:06 Tear Drop Cells Not Reportable 08/17/20 05:06 Ovalocytes Not Reportable 08/17/20 05:06 Helmet Cells Not Reportable 08/17/20 05:06 [place] Bodies Not Reportable 08/17/20 05:06 [place] Rings Not Reportable 08/17/20 05:06 [place] Cells Not Reportable 08/17/20 05:06 Bite Cells Not Reportable 08/17/20 05:06 Crenated Cell Not Reportable 08/17/20 05:06 Elliptocytes Not Reportable 08/17/20 05:06 Acanthocytes (Spur) Not Reportable 08/17/20 05:06 Rouleaux Not Reportable 08/17/20 05:06 Hemoglobin C Crystals Not Reportable 08/17/20 05:06 Schistocytes Not Reportable 08/17/20 05:06 Malaria parasites Not Reportable 08/17/20 05:06 Asif Bodies Not Reportable 08/17/20 05:06 Hem Pathologist Commnt No 08/17/20 05:06 PT 12.6 Sec. (12.2-14.9) 08/10/20 08:29 INR 0.96 (0.87-1.13) 08/10/20 08:29 D-Dimer 4487.76 ng/mlDDU (0-234) H 08/25/20 16:08 ABG pH 7.313 pH Units (7.350-7.450) L 08/25/20 12:30 POC ABG pCO2 46.9 mmHg (32.0-48.0) 08/14/20 08:23 ABG pCO2 67.2 mm Hg 08/25/20 12:30 POC ABG pO2 50.0 mmHg (83-108) L 08/14/20 08:23 ABG pO2 76.2 mm Hg (80.0-90.0) L 08/25/20 12:30 POC ABG HCO3 31.4 08/14/20 08:23 ABG HCO3 33.3 mmol/L (20.0-26.0) H 08/25/20 12:30 ABG O2 Saturation 94.9 % (95.0-99.0) L 08/25/20 12:30 ABG O2 Content 17.5 (0.0-44) 08/25/20 12:30 POC ABG Base Excess 6.3 08/14/20 08:23 ABG Base Excess 5.0 mmol/L (-2.0-3.0) H 08/25/20 12:30 ABG Hemoglobin 13.4 gm/dl (14.0-18.0) L 08/25/20 12:30 ABG Oxyhemoglobin 84.0 (94-98) L 08/14/20 08:23 ABG Carboxyhemoglobin 1.5 % (0.0-5.0) 08/25/20 12:30 ABG Methemoglobin 0.5 % (0.0-1.5) 08/25/20 12:30 ABG Sodium 139.2 mmol/L (136.0-145.0) 08/14/20 08:23 ABG Potassium 4.5 mmol/L (3.40-4.50) 08/14/20 08:23 ABG Chloride 99.0 mmol/L (98-107) 08/14/20 08:23 ABG Glucose 141 mg/dL (65-95) H 08/14/20 08:23 VBG pH 7.303 (7.320-7.420) L 08/10/20 08:29 Oxyhemoglobin 93.0 % (95.0-99.0) L 08/25/20 12:30 Carboxyhemoglobin 0.9 (0.5-1.5) 08/14/20 08:23 FiO2 80 % 08/25/20 12:30 FiO2 % 100 08/14/20 08:23 Sodium 135 mmol/L (137-145) L 08/26/20 07:11 Potassium 4.6 mmol/L (3.6-5.0) 08/26/20 07:11 Chloride 95.7 mmol/L (98-107) L 08/26/20 07:11 Carbon Dioxide 33 mmol/L (22-30) H 08/26/20 07:11 Anion Gap 11 mmol/L 08/26/20 07:11 BUN 18 mg/dL (9-20) 08/26/20 07:11 Creatinine 0.8 mg/dL (0.8-1.3) 08/26/20 07:11 Estimated GFR > 60 ml/min 08/26/20 07:11 BUN/Creatinine Ratio 23 % 08/26/20 07:11 Glucose 91 mg/dL (75-100) 08/26/20 07:11 POC Glucose 151 mg/dL (70-105) H 08/21/20 11:17 Hemoglobin A1c 6.1 % (4-6) H 08/11/20 05:39 Lactic Acid 0.80 mmol/L (0.7-2.0) 08/10/20 11:18 Calcium 9.2 mg/dL (8.4-10.2) 08/26/20 07:11 Magnesium 2.20 mg/dL (1.7-2.3) 08/26/20 07:11 Ferritin 961.4 ng/mL (30.0-300.0) H 08/25/20 16:08 Total Bilirubin 0.50 mg/dL (0.1-1.2) 08/18/20 05:13 AST 50 units/L (5-40) H 08/18/20 05:13 ALT 50 units/L (7-56) 08/18/20 05:13 Alkaline Phosphatase 103 units/L (35-129) 08/18/20 05:13 Lactate Dehydrogenase 959 units/L (91-180) H 08/25/20 16:08 C-Reactive Protein 0.10 mg/dL (0.00-1.30) 08/25/20 16:08 NT-Pro-B Natriuret Pep 36.40 pg/mL (0-450) 08/12/20 06:29 Total Protein 6.9 g/dL (6.3-8.2) 08/18/20 05:13 Albumin 3.7 g/dL (3.9-5) L 08/18/20 05:13 Albumin/Globulin Ratio 1.1 % 08/18/20 05:13 Procalcitonin 0.08 ng/mL (<0.15) 08/21/20 13:39 TSH 1.830 mlU/mL (0.270-4.200) 08/17/20 05:06 Free T4 1.01 ng/dL (0.76-1.46) 08/17/20 05:06 Arterial Blood Glucose 141 mg/dL (65-95) H 08/14/20 08:23 Arterial Blood Ionized Calcium 4.8 mg/dL (4.6-5.3) 08/14/20 08:23 Urine Color Yellow (Yellow) 08/10/20 Unknown Urine Turbidity Cloudy (Clear) 08/10/20 Unknown Urine pH 5.0 (5.0-7.0) 08/10/20 Unknown Ur Specific [place] 1.025 (1.003-1.030) 08/10/20 Unknown Urine Protein 30 mg/dl mg/dL (Negative) 08/10/20 Unknown Urine Glucose (UA) 150 mg/dL (Negative) 08/10/20 Unknown Urine Ketones Negative mg/dL (Negative) 08/10/20 Unknown Urine Blood Negative (Negative) 08/10/20 Unknown Urine Nitrite Negative (Negative) 08/10/20 Unknown Urine Bilirubin Negative (Negative) 08/10/20 Unknown Urine Urobilinogen < 2.0 mg/dL (<2.0) 08/10/20 Unknown Ur Leukocyte Esterase Negative (Negative) 08/10/20 Unknown Urine WBC (Auto) 5.0 /HPF (0.0-6.0) 08/10/20 Unknown Urine RBC (Auto) 2.0 /HPF (0.0-6.0) 08/10/20 Unknown U Epithel Cells (Auto) 1.0 /HPF (0-13.0) 08/10/20 Unknown Urine Bacteria (Auto) 1+ /HPF (Negative) 08/10/20 Unknown Urine Mucus 3+ /HPF 08/10/20 Unknown Coronavirus (PCR) Positive (Negative) A 08/11/20 Unknown Gaytan/IV: Voiding Method Urinal Active Medications - Current Medications Current Medications: Generic Name Dose Route Start Last Admin Trade Name Freq PRN Reason Stop Dose Admin Acetaminophen 650 mg 08/10/20 23:48 08/23/20 22:57 Acetaminophen 325 Mg Tab PO 650 mg Q4H PRN Administration Pain MILD(1-3)/Fever >100.5/MARTINEZ Apixaban 10 mg 08/22/20 22:00 08/27/20 21:30 Apixaban 5 Mg Tab PO 08/29/20 10:01 10 mg Q12HR MELANIE Administration Protocol Apixaban 5 mg 08/29/20 22:00 Apixaban 5 Mg Tab PO Q12HR MELANIE Protocol Artificial Tears 2 drops 08/16/20 13:44 Hypromellose 0.5% Ophth Soln 15 Ml OU Q4H PRN Dry Eye(s) Ascorbic Acid 500 mg 08/12/20 10:00 08/27/20 21:30 Ascorbic Acid 500 Mg Tab PO 500 mg BID MELANIE Administration Famotidine 20 mg 08/27/20 12:00 08/27/20 21:30 Famotidine 20 Mg Tab PO 20 mg BID MELANIE Administration Metoclopramide HCl 10 mg 08/10/20 23:48 Metoclopramide 10 Mg/2 Ml Inj IV Q6H PRN Nausea And Vomiting Morphine Sulfate 2 mg 08/10/20 23:48 08/25/20 10:20 Morphine 2 Mg/1 Ml Inj IV 2 mg Q4H PRN Administration Pain, Moderate (4-6) Ondansetron HCl 4 mg 08/10/20 23:48 Ondansetron 4 Mg/2 Ml Inj IV Q8H PRN Nausea And Vomiting Oxycodone/Acetaminophen 1 tab 08/10/20 23:48 08/25/20 21:08 Oxycodone /Acetaminophen 5-325mg Tab PO 1 tab Q6H PRN Administration Pain, Moderate (4-6) Sodium Chloride 10 ml 08/11/20 10:00 08/27/20 21:31 Sodium Chloride 0.9% 10 Ml Flush Syringe IV 10 ml BID MELANIE Administration Sodium Chloride 10 ml 08/10/20 23:48 08/12/20 21:04 Sodium Chloride 0.9% 10 Ml Flush Syringe IV 10 ml PRN PRN Administration LINE FLUSH Zinc Sulfate 220 mg 08/12/20 12:00 08/27/20 17:23 Zinc Sulfate 220 Mg Cap PO 220 mg QDAY MELANIE Administration Nutrition/Malnutrition Assess - Dietary Evaluation Nutrition/Malnutrition Findings: Nutrition Notes Start: 08/17/20 10:49 Freq: Status: Active Protocol: Document 08/23/20 13:30 CW (Rec: 08/23/20 13:36 CW [id number]) Nutrition Notes Initial or Follow up Reassessment Other Pertinent Diagnosis COVID-19 (+), pneu, RLE DVT, sinus bradycardia Current Diet Regular Labs/Tests 08/22/2020 Na 136 BUN 24 Cr 0.7 Pertinent Medications reviewed Height 5 ft 11 in Weight 147 kg [place] Body Weight (kg) 78.18 BMI 45.1 Weight Status Morbidly Obese Subjective/Other Information F/U for intakes. Pt intake varies. Average is around 75% of meals. Pt did not answer phone. Unsure of ONS intakes Percent of energy/protein needs met: 83%74% Burn Absent Trauma Absent Current % PO Fair (50-74%) Minimum of two criteria No #1 Nutrition Diagnosis Inadequate oral intake Diagnosis Progress(for reassessment Continues documentation) Is patient on ventilator? No Is Patient Ambulatory and/or Out of Bed No REE-([facility]-confined to bed) 2949.576 Kcal/Kg value to use for calculation 14 Approximate Energy Requirements Using 2057 kcal/Kg Calculation Used for Recommendations Kcal/kg Additional Notes Pro needs 0.8-1g/kg adjBW: 90- 113g/day Fluid needs 1ml/kcal Nutrition Intervention Change Diet Order: Continue current diet as tolerated Add Supplement/Snack (indicate name/kcal Ensure High Protein BID /protein ) Provides kCal: 320 Provides Protein (gm) 32 Goal #1 PO tolerance Goal #2 PO intake of meals plus ONS to meet at least 75% energy and pro needs Anticipated Discharge Needs: Regular Diet Follow-Up By: 08/28/20 Additional Comments F/U for intakes and ONS tolerance
[2020-08-28] MEDS: ASCORBIC ACID 500 MG TAB PO SCH ×2 (09:01→22:16)
[2020-08-28] MEDS: APIXABAN 5 MG TAB PO SCH ×2 (09:01→22:14)
[2020-08-28] MEDS: FAMOTIDINE 20 MG TAB PO SCH ×2 (09:02→22:15)
[2020-08-28] MEDS: ZINC SULFATE 220 MG CAP PO SCH (09:02)
[2020-08-28] MEDS ORDERED: FUROSEMIDE 40 MG/4 ML INJ IV ONE (09:09)
--- NOTE | 2020-08-28 09:13 | Progress Note ---
Assessment and Plan 30 y/o morbidly obese male with acute respiratory failure secondary to COVID 19 pneumonia. now found to have DVT in lower ext. 08/28/20: Continue to prone as tolerated. Today will give lasix 40 to see if this helps. Will discuss with cardiology about echo. Clinically patient looks the same and not in distress. If PE is present, likely not large enough for EKOS. Given his high O2 requirement, prefer not to try CTA at this time as I feel the risks outweigh the benefits. 08/27/20: Long discussion with patient again at bedside today. May need to consider repeat ECHO to look for right heart strain. We know he had VTE in the lower ext but never had to oppurtunity to truly rule him out for PE. Cousin who is an [employer] in outpatient setting at [place] asked some questions so I spoke with her via the phone. She is going to help encourage proning. Will give more lasix today. Very very guarded prognosis. 08/26/20: Pulm status is more stable today compared to yesterday. Continue bipap PRN and QHS. Will give IV lasix again today. Prognosis still remains very guarded. 08/25/20: Placed back on bipap this am secondary to desaturations and lower mental state than before. Patient has been stable and making improvements but now seems to be headed in the wrong direction. Will monitor very closely as he is a high risk for intubation and bad outcomes. Very very guarded prognosis. Will give lasix today. 08/24/20: Encouraged more proning. Continue BIpap QHS and PRN. unfortunately, no funding, patient would be a good LTACH candidate as he will likely take a long time to wean from HFNC. 08/23/20: No new recs. Proning is metcalf. Will continue to follow. Appreciate ID recs and help. 08/22/20: Bipap PRN and QHS. Will given lasix today. Prone as tolerated. PT continues. Slight improvement. Will continue to follow. 08/21/20: Bipap PRN and QHS. Hold on lasix today. Continue to prone as much as tolerated. Will order PT consult. 08/18/20: Bipap pRN and QHS. More lasix today. Prone as tolerated during the day and sleep prone at night. Continue to try to hold off on intubation. Guarded prognosis. 08/17/20: Continue anticoagulation. Still trying to prevent intubation however will do electively if and when needed to prevent and emergent situation as patient will likely be difficult given neck and body habitus. Continue prone as tolerated. Steroids and remdesivir. 08/16/20: Anticoagulation. Prone as tolerated. Wean bipap as tolerated. Prognosis remains guarded. Trying to prevent intubation given poor outcomes associated with mechanically ventilated obese COVID patients. 08/15/20: Continue therapeutic anticoagulation. No current indication for vascular consult given no evidence of right heart strain on echo. CT would only be beneficial if we thought it would show large enough clot to warrant EKOS and with no evidence of strain, I doubt that will be the case. Continue proning as much as tolerated. Spoke with mother over the phone to update her. Patient also got actemra on yesterday as well. Prognosis remains guarded 08/14/20: Will accept sats in the mid 80's as long as mental state and work of breathing do not change. AGree with lasix therapy. Found to have large DVT on right. Spoke with [facility] and asked them to order stat echo to look for right heart strain, and if present may need to consider echos. Await echo before vascular consult. Prone if possible. Long discussion with mother on phone. Gave her a list of the meds he is on and what our current plan is. Also very candid with her and son at bedside that the mortality rate with COVID is very very high. 08/13/20: Lasix again today. Continue to alternate between HFNC with NRB and bipap. Prognosis is very very guarded. Very very guarded to poor prognosis given CXR appearance, and body habitus, along with rapid decline in self sustaning oxygen levels. Agree with lasix and increase in steroids. Must prone. Very high likelihood for mechanical ventilation which would carry a high mortality for patient. Will continue to follow. No additional IVF's unless indicated. Subjective Date of service: 08/28/20 Principal diagnosis: COVID Interval history: Still on HFNC. Sats in the low 90's. Minimal output from lasix on yesterday. Objective Vital Signs - 12hr 08/27/20 08/27/20 08/27/20 21:24 22:00 23:00 Temperature Pulse Rate 87 85 88 Respiratory 16 11 L 31 H Rate Blood Pressure 131/86 146/89 137/85 O2 Sat by Pulse 93 94 93 Oximetry 08/27/20 08/28/20 08/28/20 23:57 00:00 01:00 Temperature 98.7 F Pulse Rate 95 H 96 H 89 Respiratory 13 11 L Rate Blood Pressure 125/68 125/68 O2 Sat by Pulse 92 98 Oximetry 08/28/20 08/28/20 08/28/20 02:00 02:32 03:00 Temperature Pulse Rate 84 94 H Respiratory 11 L 24 Rate Blood Pressure 107/56 107/56 107/56 O2 Sat by Pulse 93 93 93 Oximetry 08/28/20 08/28/20 08/28/20 04:00 05:00 06:00 Temperature 98.6 F Pulse Rate 84 79 Respiratory 19 14 Rate Blood Pressure 118/64 117/70 122/67 O2 Sat by Pulse 95 87 93 Oximetry CBC and BMP: 08/26/20 07:11 08/26/20 07:11 ABG, PT/INR, D-dimer: ABG ABG pH 7.313 pH Units (7.350-7.450) L 08/25/20 12:30 POC ABG pCO2 46.9 mmHg (32.0-48.0) 08/14/20 08:23 ABG pCO2 67.2 mm Hg 08/25/20 12:30 POC ABG pO2 50.0 mmHg (83-108) L 08/14/20 08:23 ABG pO2 76.2 mm Hg (80.0-90.0) L 08/25/20 12:30 POC ABG HCO3 31.4 08/14/20 08:23 ABG O2 Saturation 94.9 % (95.0-99.0) L 08/25/20 12:30 PT/INR, D-dimer PT 12.6 Sec. (12.2-14.9) 08/10/20 08:29 INR 0.96 (0.87-1.13) 08/10/20 08:29 D-Dimer 4487.76 ng/mlDDU (0-234) H 08/25/20 16:08 Abnormal lab findings: Abnormal Labs 08/10/20 08/10/20 08/10/20 08:29 08:29 08:29 WBC Lymph % (Auto) [place] % (Auto) 8.4 H Lymph # (Auto) [place] # (Auto) Seg Neutrophils % Seg Neuts % (Manual) Lymphocytes % (Manual) Seg Neutrophils # Seg Neutrophils # Man Lymphocytes # (Manual) Monocytes # (Manual) D-Dimer ABG pH POC ABG pCO2 POC ABG pO2 ABG pO2 ABG HCO3 ABG O2 Saturation ABG Base Excess ABG Hemoglobin ABG Oxyhemoglobin ABG Potassium ABG Glucose VBG pH 7.303 L Oxyhemoglobin Sodium Potassium Chloride Carbon Dioxide BUN Creatinine Glucose 132 H POC Glucose Hemoglobin A1c Ferritin AST Lactate Dehydrogenase C-Reactive Protein Albumin Arterial Blood Glucose Coronavirus (PCR) 08/11/20 08/11/20 08/11/20 05:39 05:39 05:39 WBC Lymph % (Auto) 12.5 L [place] % (Auto) Lymph # (Auto) [place] # (Auto) Seg Neutrophils % 84.2 H Seg Neuts % (Manual) Lymphocytes % (Manual) Seg Neutrophils # 9.1 H Seg Neutrophils # Man Lymphocytes # (Manual) Monocytes # (Manual) D-Dimer ABG pH POC ABG pCO2 POC ABG pO2 ABG pO2 ABG HCO3 ABG O2 Saturation ABG Base Excess ABG Hemoglobin ABG Oxyhemoglobin ABG Potassium ABG Glucose VBG pH Oxyhemoglobin Sodium Potassium Chloride Carbon Dioxide BUN Creatinine Glucose 125 H POC Glucose Hemoglobin A1c 6.1 H Ferritin AST Lactate Dehydrogenase C-Reactive Protein Albumin Arterial Blood Glucose Coronavirus (PCR) 08/11/20 08/11/20 08/11/20 18:58 18:58 18:58 WBC Lymph % (Auto) [place] % (Auto) Lymph # (Auto) [place] # (Auto) Seg Neutrophils % Seg Neuts % (Manual) Lymphocytes % (Manual) Seg Neutrophils # Seg Neutrophils # Man Lymphocytes # (Manual) Monocytes # (Manual) D-Dimer 464.84 H ABG pH POC ABG pCO2 POC ABG pO2 ABG pO2 ABG HCO3 ABG O2 Saturation ABG Base Excess ABG Hemoglobin ABG Oxyhemoglobin ABG Potassium ABG Glucose VBG pH Oxyhemoglobin Sodium Potassium Chloride Carbon Dioxide BUN Creatinine Glucose POC Glucose Hemoglobin A1c Ferritin 528.7 H AST Lactate Dehydrogenase 637 H C-Reactive Protein 11.30 H Albumin Arterial Blood Glucose Coronavirus (PCR) 08/11/20 08/11/20 08/12/20 19:08 Unknown 06:29 WBC 11.2 H Lymph % (Auto) 8.6 L [place] % (Auto) Lymph # (Auto) 1.0 L [place] # (Auto) Seg Neutrophils % 88.3 H Seg Neuts % (Manual) Lymphocytes % (Manual) Seg Neutrophils # 9.8 H Seg Neutrophils # Man Lymphocytes # (Manual) Monocytes # (Manual) D-Dimer ABG pH POC ABG pCO2 POC ABG pO2 ABG pO2 ABG HCO3 ABG O2 Saturation ABG Base Excess ABG Hemoglobin ABG Oxyhemoglobin ABG Potassium ABG Glucose VBG pH Oxyhemoglobin Sodium Potassium Chloride Carbon Dioxide BUN Creatinine Glucose 161 H POC Glucose Hemoglobin A1c Ferritin AST Lactate Dehydrogenase C-Reactive Protein Albumin Arterial Blood Glucose Coronavirus (PCR) Positive A 08/12/20 08/12/20 08/12/20 06:29 06:29 06:29 WBC Lymph % (Auto) [place] % (Auto) Lymph # (Auto) [place] # (Auto) Seg Neutrophils % Seg Neuts % (Manual) Lymphocytes % (Manual) Seg Neutrophils # Seg Neutrophils # Man Lymphocytes # (Manual) Monocytes # (Manual) D-Dimer 830.34 H ABG pH POC ABG pCO2 POC ABG pO2 ABG pO2 ABG HCO3 ABG O2 Saturation ABG Base Excess ABG Hemoglobin ABG Oxyhemoglobin ABG Potassium ABG Glucose VBG pH Oxyhemoglobin Sodium Potassium Chloride Carbon Dioxide 31 H BUN Creatinine Glucose 138 H POC Glucose Hemoglobin A1c Ferritin 572.6 H AST 42 H Lactate Dehydrogenase 706 H C-Reactive Protein 17.30 H Albumin 3.7 L Arterial Blood Glucose Coronavirus (PCR) 08/12/20 08/12/20 08/12/20 13:21 14:55 21:59 WBC Lymph % (Auto) [place] % (Auto) Lymph # (Auto) [place] # (Auto) Seg Neutrophils % Seg Neuts % (Manual) Lymphocytes % (Manual) Seg Neutrophils # Seg Neutrophils # Man Lymphocytes # (Manual) Monocytes # (Manual) D-Dimer ABG pH 7.315 L POC ABG pCO2 57.1 H POC ABG pO2 47.8 L ABG pO2 65.8 L ABG HCO3 31.4 H ABG O2 Saturation 91.7 L ABG Base Excess ABG Hemoglobin 19.3 H ABG Oxyhemoglobin ABG Potassium 4.9 H ABG Glucose 182 H VBG pH Oxyhemoglobin 89.7 L Sodium Potassium Chloride Carbon Dioxide BUN Creatinine Glucose POC Glucose 142 H Hemoglobin A1c Ferritin AST Lactate Dehydrogenase C-Reactive Protein Albumin Arterial Blood Glucose 182 H Coronavirus (PCR) 08/13/20 08/13/20 08/13/20 05:35 05:35 12:11 WBC 12.0 H Lymph % (Auto) 8.1 L [place] % (Auto) Lymph # (Auto) 1.0 L [place] # (Auto) Seg Neutrophils % 88.0 H Seg Neuts % (Manual) Lymphocytes % (Manual) Seg Neutrophils # 10.5 H Seg Neutrophils # Man Lymphocytes # (Manual) Monocytes # (Manual) D-Dimer ABG pH POC ABG pCO2 POC ABG pO2 ABG pO2 ABG HCO3 ABG O2 Saturation ABG Base Excess ABG Hemoglobin ABG Oxyhemoglobin ABG Potassium ABG Glucose VBG pH Oxyhemoglobin Sodium Potassium 5.1 H Chloride Carbon Dioxide 31 H BUN 25 H Creatinine Glucose 174 H POC Glucose 154 H Hemoglobin A1c Ferritin AST 41 H Lactate Dehydrogenase 996 H C-Reactive Protein Albumin 3.8 L Arterial Blood Glucose Coronavirus (PCR) 08/13/20 08/13/20 08/14/20 16:18 23:24 05:21 WBC 14.2 H Lymph % (Auto) 8.2 L [place] % (Auto) Lymph # (Auto) [place] # (Auto) 0.9 H Seg Neutrophils % 85.4 H Seg Neuts % (Manual) Lymphocytes % (Manual) Seg Neutrophils # 12.2 H Seg Neutrophils # Man Lymphocytes # (Manual) Monocytes # (Manual) D-Dimer ABG pH POC ABG pCO2 POC ABG pO2 ABG pO2 ABG HCO3 ABG O2 Saturation ABG Base Excess ABG Hemoglobin ABG Oxyhemoglobin ABG Potassium ABG Glucose VBG pH Oxyhemoglobin Sodium Potassium Chloride Carbon Dioxide BUN Creatinine Glucose POC Glucose 188 H 127 H Hemoglobin A1c Ferritin AST Lactate Dehydrogenase C-Reactive Protein Albumin Arterial Blood Glucose Coronavirus (PCR) 08/14/20 08/14/20 08/14/20 05:21 05:21 05:21 WBC Lymph % (Auto) [place] % (Auto) Lymph # (Auto) [place] # (Auto) Seg Neutrophils % Seg Neuts % (Manual) Lymphocytes % (Manual) Seg Neutrophils # Seg Neutrophils # Man Lymphocytes # (Manual) Monocytes # (Manual) D-Dimer > 48872 H ABG pH POC ABG pCO2 POC ABG pO2 ABG pO2 ABG HCO3 ABG O2 Saturation ABG Base Excess ABG Hemoglobin ABG Oxyhemoglobin ABG Potassium ABG Glucose VBG pH Oxyhemoglobin Sodium Potassium Chloride Carbon Dioxide 32 H 33 H BUN 26 H 26 H Creatinine Glucose 152 H 156 H POC Glucose Hemoglobin A1c Ferritin AST 53 H 54 H Lactate Dehydrogenase 1249 H C-Reactive Protein 9.90 H Albumin 3.7 L 3.7 L Arterial Blood Glucose Coronavirus (PCR) 08/14/20 08/14/20 08/14/20 05:21 05:58 08:23 WBC Lymph % (Auto) [place] % (Auto) Lymph # (Auto) [place] # (Auto) Seg Neutrophils % Seg Neuts % (Manual) Lymphocytes % (Manual) Seg Neutrophils # Seg Neutrophils # Man Lymphocytes # (Manual) Monocytes # (Manual) D-Dimer ABG pH POC ABG pCO2 POC ABG pO2 50.0 L ABG pO2 ABG HCO3 ABG O2 Saturation ABG Base Excess ABG Hemoglobin ABG Oxyhemoglobin 84.0 L ABG Potassium ABG Glucose 141 H VBG pH Oxyhemoglobin Sodium Potassium Chloride Carbon Dioxide BUN Creatinine Glucose POC Glucose 139 H Hemoglobin A1c Ferritin 1198.0 H AST Lactate Dehydrogenase C-Reactive Protein Albumin Arterial Blood Glucose 141 H Coronavirus (PCR) 08/15/20 08/15/20 08/16/20 05:16 05:16 05:26 WBC 13.7 H 17.7 H Lymph % (Auto) 8.2 L [place] % (Auto) Lymph # (Auto) [place] # (Auto) Seg Neutrophils % 86.2 H Seg Neuts % (Manual) 91.0 H 88.0 H Lymphocytes % (Manual) 7.0 L 9.0 L Seg Neutrophils # 15.3 H Seg Neutrophils # Man 12.5 H 15.6 H Lymphocytes # (Manual) 1.0 L Monocytes # (Manual) D-Dimer ABG pH POC ABG pCO2 POC ABG pO2 ABG pO2 ABG HCO3 ABG O2 Saturation ABG Base Excess ABG Hemoglobin ABG Oxyhemoglobin ABG Potassium ABG Glucose VBG pH Oxyhemoglobin Sodium Potassium Chloride Carbon Dioxide 32 H BUN 29 H Creatinine Glucose 150 H POC Glucose Hemoglobin A1c Ferritin AST Lactate Dehydrogenase 1150 H C-Reactive Protein Albumin 3.5 L Arterial Blood Glucose Coronavirus (PCR) 08/16/20 08/16/20 08/16/20 05:26 05:26 05:26 WBC Lymph % (Auto) [place] % (Auto) Lymph # (Auto) [place] # (Auto) Seg Neutrophils % Seg Neuts % (Manual) Lymphocytes % (Manual) Seg Neutrophils # Seg Neutrophils # Man Lymphocytes # (Manual) Monocytes # (Manual) D-Dimer > 96711 H ABG pH POC ABG pCO2 POC ABG pO2 ABG pO2 ABG HCO3 ABG O2 Saturation ABG Base Excess ABG Hemoglobin ABG Oxyhemoglobin ABG Potassium ABG Glucose VBG pH Oxyhemoglobin Sodium Potassium 5.2 H Chloride Carbon Dioxide BUN 25 H Creatinine Glucose 163 H POC Glucose Hemoglobin A1c Ferritin 1013.0 H AST Lactate Dehydrogenase C-Reactive Protein 4.00 H Albumin 3.6 L Arterial Blood Glucose Coronavirus (PCR) 08/17/20 08/17/20 08/17/20 05:06 05:06 07:51 WBC 20.7 H Lymph % (Auto) [place] % (Auto) Lymph # (Auto) [place] # (Auto) Seg Neutrophils % Seg Neuts % (Manual) 86.0 H Lymphocytes % (Manual) 7.0 L Seg Neutrophils # Seg Neutrophils # Man 17.8 H Lymphocytes # (Manual) Monocytes # (Manual) 1.2 H D-Dimer ABG pH POC ABG pCO2 POC ABG pO2 ABG pO2 ABG HCO3 ABG O2 Saturation ABG Base Excess ABG Hemoglobin ABG Oxyhemoglobin ABG Potassium ABG Glucose VBG pH Oxyhemoglobin Sodium Potassium Chloride 96.5 L Carbon Dioxide 31 H BUN 29 H Creatinine Glucose 121 H POC Glucose 110 H Hemoglobin A1c Ferritin AST 46 H Lactate Dehydrogenase C-Reactive Protein Albumin 3.7 L Arterial Blood Glucose Coronavirus (PCR) 08/17/20 08/17/20 08/18/20 11:42 21:45 05:13 WBC Lymph % (Auto) [place] % (Auto) Lymph # (Auto) [place] # (Auto) Seg Neutrophils % Seg Neuts % (Manual) Lymphocytes % (Manual) Seg Neutrophils # Seg Neutrophils # Man Lymphocytes # (Manual) Monocytes # (Manual) D-Dimer > 1000 H ABG pH POC ABG pCO2 POC ABG pO2 ABG pO2 ABG HCO3 ABG O2 Saturation ABG Base Excess ABG Hemoglobin ABG Oxyhemoglobin ABG Potassium ABG Glucose VBG pH Oxyhemoglobin Sodium Potassium Chloride Carbon Dioxide BUN Creatinine Glucose POC Glucose 122 H 143 H Hemoglobin A1c Ferritin AST Lactate Dehydrogenase C-Reactive Protein Albumin Arterial Blood Glucose Coronavirus (PCR) 08/18/20 08/18/20 08/21/20 05:13 05:13 11:17 WBC Lymph % (Auto) [place] % (Auto) Lymph # (Auto) [place] # (Auto) Seg Neutrophils % Seg Neuts % (Manual) Lymphocytes % (Manual) Seg Neutrophils # Seg Neutrophils # Man Lymphocytes # (Manual) Monocytes # (Manual) D-Dimer ABG pH POC ABG pCO2 POC ABG pO2 ABG pO2 ABG HCO3 ABG O2 Saturation ABG Base Excess ABG Hemoglobin ABG Oxyhemoglobin ABG Potassium ABG Glucose VBG pH Oxyhemoglobin Sodium 133 L Potassium Chloride 94.7 L Carbon Dioxide BUN 33 H Creatinine Glucose 110 H POC Glucose 151 H Hemoglobin A1c Ferritin 979.8 H AST 50 H Lactate Dehydrogenase C-Reactive Protein Albumin 3.7 L Arterial Blood Glucose Coronavirus (PCR) 08/21/20 08/21/20 08/21/20 13:39 13:39 15:55 WBC Lymph % (Auto) [place] % (Auto) Lymph # (Auto) [place] # (Auto) Seg Neutrophils % Seg Neuts % (Manual) Lymphocytes % (Manual) Seg Neutrophils # Seg Neutrophils # Man Lymphocytes # (Manual) Monocytes # (Manual) D-Dimer 6731.66 H ABG pH POC ABG pCO2 POC ABG pO2 ABG pO2 ABG HCO3 ABG O2 Saturation ABG Base Excess ABG Hemoglobin ABG Oxyhemoglobin ABG Potassium ABG Glucose VBG pH Oxyhemoglobin Sodium Potassium Chloride Carbon Dioxide BUN Creatinine Glucose POC Glucose Hemoglobin A1c Ferritin 1019.0 H AST Lactate Dehydrogenase 1251 H C-Reactive Protein Albumin Arterial Blood Glucose Coronavirus (PCR) 08/22/20 08/22/20 08/25/20 05:23 05:23 12:30 WBC 24.7 H Lymph % (Auto) [place] % (Auto) Lymph # (Auto) [place] # (Auto) Seg Neutrophils % Seg Neuts % (Manual) Lymphocytes % (Manual) Seg Neutrophils # Seg Neutrophils # Man Lymphocytes # (Manual) Monocytes # (Manual) D-Dimer ABG pH 7.313 L POC ABG pCO2 POC ABG pO2 ABG pO2 76.2 L ABG HCO3 33.3 H ABG O2 Saturation 94.9 L ABG Base Excess 5.0 H ABG Hemoglobin 13.4 L ABG Oxyhemoglobin ABG Potassium ABG Glucose VBG pH Oxyhemoglobin 93.0 L Sodium 136 L Potassium Chloride 96.3 L Carbon Dioxide BUN 24 H Creatinine 0.7 L Glucose 115 H POC Glucose Hemoglobin A1c Ferritin AST Lactate Dehydrogenase C-Reactive Protein Albumin Arterial Blood Glucose Coronavirus (PCR) 08/25/20 08/25/20 08/25/20 16:08 16:08 16:08 WBC Lymph % (Auto) [place] % (Auto) Lymph # (Auto) [place] # (Auto) Seg Neutrophils % Seg Neuts % (Manual) Lymphocytes % (Manual) Seg Neutrophils # Seg Neutrophils # Man Lymphocytes # (Manual) Monocytes # (Manual) D-Dimer 4487.76 H ABG pH POC ABG pCO2 POC ABG pO2 ABG pO2 ABG HCO3 ABG O2 Saturation ABG Base Excess ABG Hemoglobin ABG Oxyhemoglobin ABG Potassium ABG Glucose VBG pH Oxyhemoglobin Sodium Potassium Chloride Carbon Dioxide BUN Creatinine Glucose POC Glucose Hemoglobin A1c Ferritin 961.4 H AST Lactate Dehydrogenase 959 H C-Reactive Protein Albumin Arterial Blood Glucose Coronavirus (PCR) 08/26/20 08/26/20 07:11 07:11 WBC Lymph % (Auto) [place] % (Auto) 9.8 H Lymph # (Auto) [place] # (Auto) 1.0 H Seg Neutrophils % Seg Neuts % (Manual) Lymphocytes % (Manual) Seg Neutrophils # Seg Neutrophils # Man Lymphocytes # (Manual) Monocytes # (Manual) D-Dimer ABG pH POC ABG pCO2 POC ABG pO2 ABG pO2 ABG HCO3 ABG O2 Saturation ABG Base Excess ABG Hemoglobin ABG Oxyhemoglobin ABG Potassium ABG Glucose VBG pH Oxyhemoglobin Sodium 135 L Potassium Chloride 95.7 L Carbon Dioxide 33 H BUN Creatinine Glucose POC Glucose Hemoglobin A1c Ferritin AST Lactate Dehydrogenase C-Reactive Protein Albumin Arterial Blood Glucose Coronavirus (PCR)
--- NOTE | 2020-08-28 17:24 | Progress Note ---
Assessment and Plan Cultures: Blood culture 08/10/2020 no growth SARS CoV2 PCR positive 08/10/2020 urine culture: No growth Assessment: 30 years old male with history of morbid obesity, admitted on 08/10/2020 secondary to 3-day history of intermittent frontal headache: #Leukocytosis: resolved, likely due to steroids/severe hypoxia, repeat procalcitonin level is low #Severe COVID19 pneumonia: On steroids, completed remdesivir. S/P actemra on 08/14/2020. Completed empiric abx course. Procal is low, additional abx not needed. CXR not significant change. Markers trending down #Acute hypoxemic respiratory failure: severe, on HFNC/BIPAP hs/prn 100% #Acute right leg DVT, very high d-dimer. On anticoagulation. #LONNY: Resolved #Morbid obesity: Associated with worse outcomes Recommendations: -Completed steroids -S/P remdesivir, actemra -Monitor inflammatory markers - ferritin, Ddimer, CRP, LDH -continue anticoagulation for DVT/Eliquis -prone positioning whenever possible -pulm on board Calvin Humphreys MD [facility] O: [phone] F: [phone] Subjective Date of service: 08/28/20 Principal diagnosis: COVID Interval history: Afebrile, normal white count. Objective - Exam Narrative Exam: Physical exam deferred due to PPE conservation strategy. Please refer to primary team's note. - Constitutional Vitals: Vital Signs Temp Pulse Resp BP Pulse Ox 98.7 F 95 H 21 140/82 93 08/28/20 12:00 08/28/20 16:00 08/28/20 16:00 08/28/20 16:00 08/28/20 16:00 Temperature -Last 24 Hours Temperature 98.7 F Temperature 98.6 F Temperature 98.6 F Temperature 98.7 F - Labs CBC & Chem 7: 08/26/20 07:11 08/26/20 07:11
--- NOTE | 2020-08-29 08:11 | Progress Note ---
Assessment and Plan Assessment and plan: --Acute hypoxic respiratory failure secondary to COVID-19 PNA Pt remains on high flow oxygen 40/100/93 intermittent 100% nonrebreather Patient unstable to go for CTA chest to evaluate the cause of persistent hypoxia pulmonary following, Home O2 evaluation at discharge --COVID-19 Pneumonia Continue antibiotics Continue steroids total 10 days s/p Remdesivir, s/p tocilizumab Oxygen supplementation with high flow oxygen/ BiPAP/nonrebreather Trend inflammatory markers Prone positioning strongly advised ID and pulmonology following --Right lower extremity DVT on LE Doppler study LE Doppler LE Doppler shows RLE DVT. Echocardiogram shows no right heart strain. On Eliquis per protocol --Sinus bradycardia /resolved Likely from remdesivir Heart rate in 60s and 70s today TSH wnl --Morbid obesity; BMI 41.9 Diet and exercise advised Patient needs outpatient bariatric surgical/medical weight reduction consult when medically stable --Positive DVT ;-on Eliquis Continues to be on high flow oxygen, Wean as tolerated We will closely monitor the patient and adjust management as needed Crab Picker recommendations noted and appreciated Plan of care reviewed with the patient and his nurse and the case management The high probability of a clinically significant, sudden or life threatening deterioration of the [pulmonary,Vascular,ID,CVS and hematology] system(s) required my full and direct attention, intervention and personal management. The aggregate critical care time was [32] minutes. This time is in addition to time spent performing reported procedures but includes the following: [x] Data Review and interpretation [x] Patient assessment and monitoring of vital signs [x] Documentation [x] Medication orders and management Brief history 30-year-old male with morbid obesity weighing about 310 pounds was admitted through emergency room with frontal headache for 3 days. Patient was noted to be hypoxic with shortness of breath and cough O2 sats room air were in the 80s, requiring high flow oxygen, BiPAP, patient was admitted to IMCU Patient was PUI, placed in isolation, gillespie PCR test was positive, evaluated by ID and pulmonary, medications optimized and patient was being managed per COVID-19 protocols and guidelines. Patient continues to depend on high flow oxygen and BiPAP. Today patient continues to be on very high flow oxygen of 40 L/100% FiO2/94 to 96% O2 sats Patient advised bariatric surgical consultation upon discharge for weight red uction program Work-up in the emergency room showed bilateral patchy opacities in the lungs and hypoxia-hence he was admitted for bilateral pneumonia and possible Covid pneumonia. No significant past medical history Daily Hospital course: 08/11. Patient seen examined at bedside this morning. Has no complaints. Febrile this a.m.-103 Fahrenheit. On Tylenol as needed. COVID-19 test ordered. Remains on steroids. ID consult if COVID-19 is positive. 08/12. His COVID-19 test is positive. He was started on remdesivir last night. Oxygen requirement increased overnight. Inflammatory markers increasing. Repeat chest xray shows worsening infiltrates. Ordered BNP. Lasix 40mg IV ordered. Increased dexamethasone to 6mg BID. Pulmonology consulted. Will place on continuous pulse oximetry. Incentive spirometer ordered. Advised prone positioning. 08/13. Not feeling better. Seen on BIPAP. Remains on steroids, remdesivir and antibiotics. Vitals stable. 08/14. Still maintaining sats even on BiPAP. Lasix 40 mg IV ordered. D-dimer this a.m. is more than 10,000. Lovenox increased to 150 mg twice daily. Ultrasound lower extremities Doppler showed a right DVT. Echocardiogram ordered to rule out right heart strain. Pending results, patient may need vascular surgery evaluation for possible thrombectomy. Continue on BiPAP and continue to monitor respiratory status closely. 08/15. Sats better this AM. Received toculizumab yesterday. Advised him to prone as much as possible. Echo shows normal EF with no right heart strain. I/Os reviewed. He is diuresing well. Renal function is stable. Will give additional lasix today. Pulmonology following 08/16. Remains on remdesivir. Still on BIPAP. Will give lasix 20mg IV. HR is low - likley effect of remdesivir. Will continue to monitor closely 08/17. Sats in the 90's this AM. Still on BIPAP. /2; patient remains hypoxic requiring BiPAP and 100% nonrebreather intermittently 08/19; Continue supportive care, wean oxygen as tolerated. Encouraged PRONE positioning if able to tolerate. 08/20:Remains on BiPAP. continue lasix, still not proninig, encouraged to prone, FIO2 down to 90% with sat of 96%. Continue care, prognosis still guarded. 08/21: Patient down on high flow. Continue to encourage proning position. Still with guarded prognosis. Elevation in WBC noted to 20 this could be secondary to steroids I will continue to monitor. No fever noted at this time. Patient's respiratory status has stabilized on the high flow with no shallow breathing noted Discussed with the nurse at bedside 08/22; DC Lovenox therapeutic dose, start Eliquis per protocol to treat lower extremity DVT. 08/23; patient remains on high flow oxygen 40 L/100 FiO2/94% O2 sats, intermittent BiPAP 08/24; patient remains on high flow oxygen and BiPAP, consultants recommendations noted and appreciated 08/25; patient continues to be hypoxemic, on high flow oxygen 40L/ 100 FiO2/95 O2 sats and on intermittent BiPAP 08/26; patient continues to be on high flow oxygen, unable to wean follow pulmonary recommendations 08/27; patient remains on high flow oxygen 40 L/100% FiO2/95% O2 sats with intermittent BiPAP treatment 08/28; patient remains on high flow oxygen, strongly advised to prone as tolerated, consults and recommendations noted and appreciated 08/28; closely monitor the patient and adjust management as needed, wean oxygen as tolerated Home oxygen evaluation, DC planning when medically stable History Interval history: I have seen and examined the patient at the bedside Patient's chart and medications reviewed Strict isolation precautions and PPE protocols followed per COVID-19 guidelines Patient is on prone position, 800% nonrebreather oxygen Feels slightly better Patient continues to be on high flow oxygen 40 L/100% FiO2/93 O2 sats Hospitalist Physical - Constitutional Vitals: Temp Pulse Resp BP Pulse Ox 99.2 F 88 13 77/34 87 08/29/20 03:42 08/29/20 06:00 08/29/20 06:00 08/29/20 06:00 08/29/20 06:00 General appearance: Present: no acute distress, well-nourished, obese (Morbidly obese) - EENT Eyes: Present: PERRL, EOM intact - Neck Neck: Present: supple, normal ROM - Respiratory Respiratory effort: normal Respiratory: bilateral: diminished, rhonchi, negative: rales, wheezing - Cardiovascular Rhythm: regular Heart Sounds: Present: S1 & S2 - Extremities Extremities: no ischemia, No edema - Abdominal General gastrointestinal: soft, non-tender, non-distended, normal bowel sounds - Integumentary Integumentary: Present: clear, warm - Psychiatric Psychiatric: appropriate mood/affect, cooperative - Neurologic Neurologic: CNII-XII intact, moves all extremities Results - Labs CBC & Chem 7: 08/26/20 07:11 08/26/20 07:11 Labs: Laboratory Last Values WBC 10.4 K/mm3 (4.5-11.0) 08/26/20 07:11 RBC 4.37 M/mm3 (3.65-5.03) 08/26/20 07:11 Hgb 13.2 gm/dl (11.8-15.2) 08/26/20 07:11 Hct 39.2 % (35.5-45.6) 08/26/20 07:11 MCV 90 fl (84-94) 08/26/20 07:11 MCH 30 pg (28-32) 08/26/20 07:11 MCHC 34 % (32-34) 08/26/20 07:11 RDW 14.2 % (13.2-15.2) 08/26/20 07:11 Plt Count 259 K/mm3 (140-440) 08/26/20 07:11 Lymph % (Auto) 20.2 % (13.4-35.0) 08/26/20 07:11 [place] % (Auto) 9.8 % (0.0-7.3) H 08/26/20 07:11 Eos % (Auto) 4.2 % (0.0-4.3) 08/26/20 07:11 Baso % (Auto) 0.5 % (0.0-1.8) 08/26/20 07:11 Lymph # (Auto) 2.1 K/mm3 (1.2-5.4) 08/26/20 07:11 [place] # (Auto) 1.0 K/mm3 (0.0-0.8) H 08/26/20 07:11 Eos # (Auto) 0.4 K/mm3 (0.0-0.4) 08/26/20 07:11 Baso # (Auto) 0.1 K/mm3 (0.0-0.1) 08/26/20 07:11 Add Manual Diff Complete 08/17/20 05:06 Total Counted 100 08/17/20 05:06 Seg Neutrophils % 65.3 % (40.0-70.0) 08/26/20 07:11 Seg Neuts % (Manual) 86.0 % (40.0-70.0) H 08/17/20 05:06 Lymphocytes % (Manual) 7.0 % (13.4-35.0) L 08/17/20 05:06 Monocytes % (Manual) 6.0 % (0.0-7.3) 08/17/20 05:06 Eosinophils % (Manual) 1.0 % (0.0-4.3) 08/17/20 05:06 Metamyelocytes % 2.0 % 08/15/20 05:16 Nucleated RBC % Not Reportable 08/17/20 05:06 Seg Neutrophils # 6.8 K/mm3 (1.8-7.7) 08/26/20 07:11 Seg Neutrophils # Man 17.8 K/mm3 (1.8-7.7) H 08/17/20 05:06 Band Neutrophils # 0.0 K/mm3 08/17/20 05:06 Lymphocytes # (Manual) 1.4 K/mm3 (1.2-5.4) 08/17/20 05:06 Abs React Lymphs (Man) 0.0 K/mm3 08/17/20 05:06 Monocytes # (Manual) 1.2 K/mm3 (0.0-0.8) H 08/17/20 05:06 Eosinophils # (Manual) 0.2 K/mm3 (0.0-0.4) 08/17/20 05:06 Basophils # (Manual) 0.0 K/mm3 (0.0-0.1) 08/17/20 05:06 Metamyelocytes # 0.0 K/mm3 08/17/20 05:06 Myelocytes # 0.0 K/mm3 08/17/20 05:06 Promyelocytes # 0.0 K/mm3 08/17/20 05:06 Blast Cells # 0.0 K/mm3 08/17/20 05:06 WBC Morphology Not Reportable 08/17/20 05:06 Hypersegmented Neuts Not Reportable 08/17/20 05:06 Hyposegmented Neuts Not Reportable 08/17/20 05:06 Hypogranular Neuts Not Reportable 08/17/20 05:06 Smudge Cells Not Reportable 08/17/20 05:06 Toxic Granulation Not Reportable 08/17/20 05:06 Toxic Vacuolation Not Reportable 08/17/20 05:06 Dohle Bodies Not Reportable 08/17/20 05:06 Pelger-Huet Anomaly Not Reportable 08/17/20 05:06 Juan Luis Rods Not Reportable 08/17/20 05:06 Platelet Estimate Consistent w auto 08/17/20 05:06 Clumped Platelets Not Reportable 08/17/20 05:06 Plt Clumps, EDTA Not Reportable 08/17/20 05:06 Large Platelets Not Reportable 08/17/20 05:06 Giant Platelets Not Reportable 08/17/20 05:06 Platelet Satelliting Not Reportable 08/17/20 05:06 Plt Morphology Comment Not Reportable 08/17/20 05:06 RBC Morphology Not Reportable 08/17/20 05:06 Dimorphic RBCs Not Reportable 08/17/20 05:06 Polychromasia Not Reportable 08/17/20 05:06 Hypochromasia Not Reportable 08/17/20 05:06 Poikilocytosis Not Reportable 08/17/20 05:06 Anisocytosis Few 08/17/20 05:06 Microcytosis Not Reportable 08/17/20 05:06 Macrocytosis Not Reportable 08/17/20 05:06 Spherocytes Not Reportable 08/17/20 05:06 Pappenheimer Bodies Not Reportable 08/17/20 05:06 Sickle Cells Not Reportable 08/17/20 05:06 Target Cells Not Reportable 08/17/20 05:06 Tear Drop Cells Not Reportable 08/17/20 05:06 Ovalocytes Not Reportable 08/17/20 05:06 Helmet Cells Not Reportable 08/17/20 05:06 [place] Bodies Not Reportable 08/17/20 05:06 [place] Rings Not Reportable 08/17/20 05:06 [place] Cells Not Reportable 08/17/20 05:06 Bite Cells Not Reportable 08/17/20 05:06 Crenated Cell Not Reportable 08/17/20 05:06 Elliptocytes Not Reportable 08/17/20 05:06 Acanthocytes (Spur) Not Reportable 08/17/20 05:06 Rouleaux Not Reportable 08/17/20 05:06 Hemoglobin C Crystals Not Reportable 08/17/20 05:06 Schistocytes Not Reportable 08/17/20 05:06 Malaria parasites Not Reportable 08/17/20 05:06 Asif Bodies Not Reportable 08/17/20 05:06 Hem Pathologist Commnt No 08/17/20 05:06 PT 12.6 Sec. (12.2-14.9) 08/10/20 08:29 INR 0.96 (0.87-1.13) 08/10/20 08:29 D-Dimer 4487.76 ng/mlDDU (0-234) H 08/25/20 16:08 ABG pH 7.313 pH Units (7.350-7.450) L 08/25/20 12:30 POC ABG pCO2 46.9 mmHg (32.0-48.0) 08/14/20 08:23 ABG pCO2 67.2 mm Hg 08/25/20 12:30 POC ABG pO2 50.0 mmHg (83-108) L 08/14/20 08:23 ABG pO2 76.2 mm Hg (80.0-90.0) L 08/25/20 12:30 POC ABG HCO3 31.4 08/14/20 08:23 ABG HCO3 33.3 mmol/L (20.0-26.0) H 08/25/20 12:30 ABG O2 Saturation 94.9 % (95.0-99.0) L 08/25/20 12:30 ABG O2 Content 17.5 (0.0-44) 08/25/20 12:30 POC ABG Base Excess 6.3 08/14/20 08:23 ABG Base Excess 5.0 mmol/L (-2.0-3.0) H 08/25/20 12:30 ABG Hemoglobin 13.4 gm/dl (14.0-18.0) L 08/25/20 12:30 ABG Oxyhemoglobin 84.0 (94-98) L 08/14/20 08:23 ABG Carboxyhemoglobin 1.5 % (0.0-5.0) 08/25/20 12:30 ABG Methemoglobin 0.5 % (0.0-1.5) 08/25/20 12:30 ABG Sodium 139.2 mmol/L (136.0-145.0) 08/14/20 08:23 ABG Potassium 4.5 mmol/L (3.40-4.50) 08/14/20 08:23 ABG Chloride 99.0 mmol/L (98-107) 08/14/20 08:23 ABG Glucose 141 mg/dL (65-95) H 08/14/20 08:23 VBG pH 7.303 (7.320-7.420) L 08/10/20 08:29 Oxyhemoglobin 93.0 % (95.0-99.0) L 08/25/20 12:30 Carboxyhemoglobin 0.9 (0.5-1.5) 08/14/20 08:23 FiO2 80 % 08/25/20 12:30 FiO2 % 100 08/14/20 08:23 Sodium 135 mmol/L (137-145) L 08/26/20 07:11 Potassium 4.6 mmol/L (3.6-5.0) 08/26/20 07:11 Chloride 95.7 mmol/L (98-107) L 08/26/20 07:11 Carbon Dioxide 33 mmol/L (22-30) H 08/26/20 07:11 Anion Gap 11 mmol/L 08/26/20 07:11 BUN 18 mg/dL (9-20) 08/26/20 07:11 Creatinine 0.8 mg/dL (0.8-1.3) 08/26/20 07:11 Estimated GFR > 60 ml/min 08/26/20 07:11 BUN/Creatinine Ratio 23 % 08/26/20 07:11 Glucose 91 mg/dL (75-100) 08/26/20 07:11 POC Glucose 151 mg/dL (70-105) H 08/21/20 11:17 Hemoglobin A1c 6.1 % (4-6) H 08/11/20 05:39 Lactic Acid 0.80 mmol/L (0.7-2.0) 08/10/20 11:18 Calcium 9.2 mg/dL (8.4-10.2) 08/26/20 07:11 Magnesium 2.20 mg/dL (1.7-2.3) 08/26/20 07:11 Ferritin 961.4 ng/mL (30.0-300.0) H 08/25/20 16:08 Total Bilirubin 0.50 mg/dL (0.1-1.2) 08/18/20 05:13 AST 50 units/L (5-40) H 08/18/20 05:13 ALT 50 units/L (7-56) 08/18/20 05:13 Alkaline Phosphatase 103 units/L (35-129) 08/18/20 05:13 Lactate Dehydrogenase 959 units/L (91-180) H 08/25/20 16:08 C-Reactive Protein 0.10 mg/dL (0.00-1.30) 08/25/20 16:08 NT-Pro-B Natriuret Pep 36.40 pg/mL (0-450) 08/12/20 06:29 Total Protein 6.9 g/dL (6.3-8.2) 08/18/20 05:13 Albumin 3.7 g/dL (3.9-5) L 08/18/20 05:13 Albumin/Globulin Ratio 1.1 % 08/18/20 05:13 Procalcitonin 0.08 ng/mL (<0.15) 08/21/20 13:39 TSH 1.830 mlU/mL (0.270-4.200) 08/17/20 05:06 Free T4 1.01 ng/dL (0.76-1.46) 08/17/20 05:06 Arterial Blood Glucose 141 mg/dL (65-95) H 08/14/20 08:23 Arterial Blood Ionized Calcium 4.8 mg/dL (4.6-5.3) 08/14/20 08:23 Urine Color Yellow (Yellow) 08/10/20 Unknown Urine Turbidity Cloudy (Clear) 08/10/20 Unknown Urine pH 5.0 (5.0-7.0) 08/10/20 Unknown Ur Specific [place] 1.025 (1.003-1.030) 08/10/20 Unknown Urine Protein 30 mg/dl mg/dL (Negative) 08/10/20 Unknown Urine Glucose (UA) 150 mg/dL (Negative) 08/10/20 Unknown Urine Ketones Negative mg/dL (Negative) 08/10/20 Unknown Urine Blood Negative (Negative) 08/10/20 Unknown Urine Nitrite Negative (Negative) 08/10/20 Unknown Urine Bilirubin Negative (Negative) 08/10/20 Unknown Urine Urobilinogen < 2.0 mg/dL (<2.0) 08/10/20 Unknown Ur Leukocyte Esterase Negative (Negative) 08/10/20 Unknown Urine WBC (Auto) 5.0 /HPF (0.0-6.0) 08/10/20 Unknown Urine RBC (Auto) 2.0 /HPF (0.0-6.0) 08/10/20 Unknown U Epithel Cells (Auto) 1.0 /HPF (0-13.0) 08/10/20 Unknown Urine Bacteria (Auto) 1+ /HPF (Negative) 08/10/20 Unknown Urine Mucus 3+ /HPF 08/10/20 Unknown Coronavirus (PCR) Positive (Negative) A 08/11/20 Unknown Gaytan/IV: Voiding Method Urinal Active Medications - Current Medications Current Medications: Generic Name Dose Route Start Last Admin Trade Name Freq PRN Reason Stop Dose Admin Acetaminophen 650 mg 08/10/20 23:48 08/23/20 22:57 Acetaminophen 325 Mg Tab PO 650 mg Q4H PRN Administration Pain MILD(1-3)/Fever >100.5/MARTINEZ Apixaban 10 mg 08/22/20 22:00 08/28/20 22:14 Apixaban 5 Mg Tab PO 08/29/20 10:01 10 mg Q12HR MELANIE Administration Protocol Apixaban 5 mg 08/29/20 22:00 Apixaban 5 Mg Tab PO Q12HR MELANIE Protocol Artificial Tears 2 drops 08/16/20 13:44 Hypromellose 0.5% Ophth Soln 15 Ml OU Q4H PRN Dry Eye(s) Ascorbic Acid 500 mg 08/12/20 10:00 08/28/20 22:16 Ascorbic Acid 500 Mg Tab PO 500 mg BID MELANIE Administration Famotidine 20 mg 08/27/20 12:00 08/28/20 22:15 Famotidine 20 Mg Tab PO 20 mg BID MELANIE Administration Metoclopramide HCl 10 mg 08/10/20 23:48 Metoclopramide 10 Mg/2 Ml Inj IV Q6H PRN Nausea And Vomiting Morphine Sulfate 2 mg 08/10/20 23:48 08/25/20 10:20 Morphine 2 Mg/1 Ml Inj IV 2 mg Q4H PRN Administration Pain, Moderate (4-6) Ondansetron HCl 4 mg 08/10/20 23:48 Ondansetron 4 Mg/2 Ml Inj IV Q8H PRN Nausea And Vomiting Oxycodone/Acetaminophen 1 tab 08/10/20 23:48 08/25/20 21:08 Oxycodone /Acetaminophen 5-325mg Tab PO 1 tab Q6H PRN Administration Pain, Moderate (4-6) Sodium Chloride 10 ml 08/11/20 10:00 08/28/20 22:15 Sodium Chloride 0.9% 10 Ml Flush Syringe IV 10 ml BID MELANIE Administration Sodium Chloride 10 ml 08/10/20 23:48 08/12/20 21:04 Sodium Chloride 0.9% 10 Ml Flush Syringe IV 10 ml PRN PRN Administration LINE FLUSH Zinc Sulfate 220 mg 08/12/20 12:00 08/28/20 09:02 Zinc Sulfate 220 Mg Cap PO 220 mg QDAY MELANIE Administration Nutrition/Malnutrition Assess - Dietary Evaluation Nutrition/Malnutrition Findings: Nutrition Notes Start: 08/17/20 10:49 Freq: Status: Active Protocol: Document 08/28/20 15:35 CW (Rec: 08/28/20 15:39 CW [id number]) Nutrition Notes Initial or Follow up Reassessment Other Pertinent Diagnosis COVID-19 (+), pneu, RLE DVT, sinus bradycardia Current Diet Regular Labs/Tests 08/26/2020 Na 135 Pertinent Medications lasix Height 5 ft 11 in Weight 134 kg [place] Body Weight (kg) 78.18 BMI 41.2 Weight change and time frame weight change likely related to diuertics usage Weight Status Morbidly Obese Subjective/Other Information F/U for intakes. Pt has been eating 50% of meals. Food preferences updated and information relayed to kitchen . Percent of energy/protein needs met: 78%/86% Burn Absent Trauma Absent Cultural/Ethnic/Sabianist Belief Requests salads with chicken Current % PO Fair (50-74%) Minimum of two criteria No #1 Nutrition Diagnosis Inadequate oral intake Diagnosis Progress(for reassessment Continues documentation) Is patient on ventilator? No Is Patient Ambulatory and/or Out of Bed No REE-([facility]-confined to bed) 2793.732 Kcal/Kg value to use for calculation 14 Approximate Energy Requirements Using 1876 kcal/Kg Calculation Used for Recommendations Kcal/kg Additional Notes Pro needs 0.8-1g/kg adjBW: 90- 113g/day Fluid needs 1ml/kcal Nutrition Intervention Change Diet Order: Continue current diet as tolerated Add Supplement/Snack (indicate name/kcal Ensure High Protein BID /protein ) Provides kCal: 320 Provides Protein (gm) 32 Goal #1 PO tolerance Goal #2 PO intake of meals plus ONS to meet at least 75% energy and pro needs Anticipated Discharge Needs: Regular Diet Follow-Up By: 09/01/20 Additional Comments F/U for intakes and ONS tolerance
[2020-08-29] MEDS: FAMOTIDINE 20 MG TAB PO SCH ×2 (09:23→21:13)
[2020-08-29] MEDS: ZINC SULFATE 220 MG CAP PO SCH (09:23)
[2020-08-29] MEDS: APIXABAN 5 MG TAB PO SCH ×2 (09:23→21:13)
[2020-08-29] MEDS: ASCORBIC ACID 500 MG TAB PO SCH ×2 (09:23→21:13)
--- NOTE | 2020-08-29 10:52 | Progress Note ---
Assessment and Plan 30 y/o morbidly obese male with acute respiratory failure secondary to COVID 19 pneumonia. now found to have DVT in lower ext. 08/29/20: Continue to prone as tolerated during the day and sleep prone at night. HOld on lasix today. Continue anticoagulation. Guarded prognosis. 08/28/20: Continue to prone as tolerated. Today will give lasix 40 to see if this helps. Will discuss with cardiology about echo. Clinically patient looks the same and not in distress. If PE is present, likely not large enough for EKOS. Given his high O2 requirement, prefer not to try CTA at this time as I feel the risks outweigh the benefits. 08/27/20: Long discussion with patient again at bedside today. May need to consider repeat ECHO to look for right heart strain. We know he had VTE in the lower ext but never had to oppurtunity to truly rule him out for PE. Cousin who is an LINING REPAIRER in outpatient setting at [facility] asked some questions so I spoke with her via the phone. She is going to help encourage proning. Will give more lasix today. Very very guarded prognosis. 08/26/20: Pulm status is more stable today compared to yesterday. Continue bipap PRN and QHS. Will give IV lasix again today. Prognosis still remains very guarded. 08/25/20: Placed back on bipap this am secondary to desaturations and lower mental state than before. Patient has been stable and making improvements but now seems to be headed in the wrong direction. Will monitor very closely as he is a high risk for intubation and bad outcomes. Very very guarded prognosis. Will give lasix today. 08/24/20: Encouraged more proning. Continue BIpap QHS and PRN. unfortunately, no funding, patient would be a good LTACH candidate as he will likely take a long time to wean from HFNC. 08/23/20: No new recs. Proning is metcalf. Will continue to follow. Appreciate ID recs and help. 08/22/20: Bipap PRN and QHS. Will given lasix today. Prone as tolerated. PT continues. Slight improvement. Will continue to follow. 08/21/20: Bipap PRN and QHS. Hold on lasix today. Continue to prone as much as tolerated. Will order PT consult. 08/18/20: Bipap pRN and QHS. More lasix today. Prone as tolerated during the day and sleep prone at night. Continue to try to hold off on intubation. Guarded prognosis. 08/17/20: Continue anticoagulation. Still trying to prevent intubation however will do electively if and when needed to prevent and emergent situation as patient will likely be difficult given neck and body habitus. Continue prone as tolerated. Steroids and remdesivir. 08/16/20: Anticoagulation. Prone as tolerated. Wean bipap as tolerated. Prognosis remains guarded. Trying to prevent intubation given poor outcomes associated with mechanically ventilated obese COVID patients. 08/15/20: Continue therapeutic anticoagulation. No current indication for vascular consult given no evidence of right heart strain on echo. CT would only be beneficial if we thought it would show large enough clot to warrant EKOS and with no evidence of strain, I doubt that will be the case. Continue proning as much as tolerated. Spoke with mother over the phone to update her. Patient also got actemra on yesterday as well. Prognosis remains guarded 08/14/20: Will accept sats in the mid 80's as long as mental state and work of breathing do not change. AGree with lasix therapy. Found to have large DVT on right. Spoke with [facility] and asked them to order stat echo to look for right heart strain, and if present may need to consider echos. Await echo before vascular consult. Prone if possible. Long discussion with mother on phone. Gave her a list of the meds he is on and what our current plan is. Also very candid with her and son at bedside that the mortality rate with COVID is very very high. 08/13/20: Lasix again today. Continue to alternate between HFNC with NRB and bipap. Prognosis is very very guarded. Very very guarded to poor prognosis given CXR appearance, and body habitus, along with rapid decline in self sustaning oxygen levels. Agree with lasix and increase in steroids. Must prone. Very high likelihood for mechanical ventilation which would carry a high mortality for patient. Will continue to follow. No additional IVF's unless indicated. Subjective Date of service: 08/29/20 Principal diagnosis: COVID Interval history: No acute events, lying on stomach now. Sats in the mid 90's. Objective Vital Signs - 12hr 08/28/20 08/29/2021 23:00 00:00 01:00 Temperature 99.1 F Pulse Rate 90 93 H 85 Pulse Rate [ 91 H From Monitor] Respiratory 16 14 13 Rate Blood Pressure 142/101 148/111 145/79 O2 Sat by Pulse 91 98 98 Oximetry 08/29/20 08/29/20 08/29/20 02:00 03:00 03:42 Temperature 99.2 F Pulse Rate 87 103 H Pulse Rate [ From Monitor] Respiratory 9 L 16 Rate Blood Pressure 144/72 144/72 O2 Sat by Pulse 72 L Oximetry 08/29/20 08/29/20 08/29/20 04:00 05:00 06:00 Temperature Pulse Rate 84 85 88 Pulse Rate [ 93 H From Monitor] Respiratory 11 L 15 13 Rate Blood Pressure 93/40 91/17 77/34 O2 Sat by Pulse 93 93 87 Oximetry 08/29/20 08/29/20 08/29/20 07:00 08:00 08:53 Temperature Pulse Rate 90 85 Pulse Rate [ 93 H From Monitor] Respiratory 10 L 10 L Rate Blood Pressure 101/59 106/67 O2 Sat by Pulse 95 95 93 Oximetry 08/29/20 09:00 Temperature Pulse Rate 89 Pulse Rate [ From Monitor] Respiratory 11 L Rate Blood Pressure 101/48 O2 Sat by Pulse 92 Oximetry CBC and BMP: 08/26/20 07:11 08/26/20 07:11 ABG, PT/INR, D-dimer: ABG ABG pH 7.313 pH Units (7.350-7.450) L 08/25/20 12:30 POC ABG pCO2 46.9 mmHg (32.0-48.0) 08/14/20 08:23 ABG pCO2 67.2 mm Hg 08/25/20 12:30 POC ABG pO2 50.0 mmHg (83-108) L 08/14/20 08:23 ABG pO2 76.2 mm Hg (80.0-90.0) L 08/25/20 12:30 POC ABG HCO3 31.4 08/14/20 08:23 ABG O2 Saturation 94.9 % (95.0-99.0) L 08/25/20 12:30 PT/INR, D-dimer PT 12.6 Sec. (12.2-14.9) 08/10/20 08:29 INR 0.96 (0.87-1.13) 08/10/20 08:29 D-Dimer 4487.76 ng/mlDDU (0-234) H 08/25/20 16:08 Abnormal lab findings: Abnormal Labs 08/10/20 08/10/20 08/10/20 08:29 08:29 08:29 WBC Lymph % (Auto) Loving % (Auto) 8.4 H Lymph # (Auto) Loving # (Auto) Seg Neutrophils % Seg Neuts % (Manual) Lymphocytes % (Manual) Seg Neutrophils # Seg Neutrophils # Man Lymphocytes # (Manual) Monocytes # (Manual) D-Dimer ABG pH POC ABG pCO2 POC ABG pO2 ABG pO2 ABG HCO3 ABG O2 Saturation ABG Base Excess ABG Hemoglobin ABG Oxyhemoglobin ABG Potassium ABG Glucose VBG pH 7.303 L Oxyhemoglobin Sodium Potassium Chloride Carbon Dioxide BUN Creatinine Glucose 132 H POC Glucose Hemoglobin A1c Ferritin AST Lactate Dehydrogenase C-Reactive Protein Albumin Arterial Blood Glucose Coronavirus (PCR) 08/11/20 08/11/20 08/11/20 05:39 05:39 05:39 WBC Lymph % (Auto) 12.5 L Loving % (Auto) Lymph # (Auto) Loving # (Auto) Seg Neutrophils % 84.2 H Seg Neuts % (Manual) Lymphocytes % (Manual) Seg Neutrophils # 9.1 H Seg Neutrophils # Man Lymphocytes # (Manual) Monocytes # (Manual) D-Dimer ABG pH POC ABG pCO2 POC ABG pO2 ABG pO2 ABG HCO3 ABG O2 Saturation ABG Base Excess ABG Hemoglobin ABG Oxyhemoglobin ABG Potassium ABG Glucose VBG pH Oxyhemoglobin Sodium Potassium Chloride Carbon Dioxide BUN Creatinine Glucose 125 H POC Glucose Hemoglobin A1c 6.1 H Ferritin AST Lactate Dehydrogenase C-Reactive Protein Albumin Arterial Blood Glucose Coronavirus (PCR) 08/11/20 08/11/20 08/11/20 18:58 18:58 18:58 WBC Lymph % (Auto) Loving % (Auto) Lymph # (Auto) Loving # (Auto) Seg Neutrophils % Seg Neuts % (Manual) Lymphocytes % (Manual) Seg Neutrophils # Seg Neutrophils # Man Lymphocytes # (Manual) Monocytes # (Manual) D-Dimer 464.84 H ABG pH POC ABG pCO2 POC ABG pO2 ABG pO2 ABG HCO3 ABG O2 Saturation ABG Base Excess ABG Hemoglobin ABG Oxyhemoglobin ABG Potassium ABG Glucose VBG pH Oxyhemoglobin Sodium Potassium Chloride Carbon Dioxide BUN Creatinine Glucose POC Glucose Hemoglobin A1c Ferritin 528.7 H AST Lactate Dehydrogenase 637 H C-Reactive Protein 11.30 H Albumin Arterial Blood Glucose Coronavirus (PCR) 08/11/20 08/11/20 08/12/20 19:08 Unknown 06:29 WBC 11.2 H Lymph % (Auto) 8.6 L Loving % (Auto) Lymph # (Auto) 1.0 L Loving # (Auto) Seg Neutrophils % 88.3 H Seg Neuts % (Manual) Lymphocytes % (Manual) Seg Neutrophils # 9.8 H Seg Neutrophils # Man Lymphocytes # (Manual) Monocytes # (Manual) D-Dimer ABG pH POC ABG pCO2 POC ABG pO2 ABG pO2 ABG HCO3 ABG O2 Saturation ABG Base Excess ABG Hemoglobin ABG Oxyhemoglobin ABG Potassium ABG Glucose VBG pH Oxyhemoglobin Sodium Potassium Chloride Carbon Dioxide BUN Creatinine Glucose 161 H POC Glucose Hemoglobin A1c Ferritin AST Lactate Dehydrogenase C-Reactive Protein Albumin Arterial Blood Glucose Coronavirus (PCR) Positive A 08/12/20 08/12/20 08/12/20 06:29 06:29 06:29 WBC Lymph % (Auto) Loving % (Auto) Lymph # (Auto) Loving # (Auto) Seg Neutrophils % Seg Neuts % (Manual) Lymphocytes % (Manual) Seg Neutrophils # Seg Neutrophils # Man Lymphocytes # (Manual) Monocytes # (Manual) D-Dimer 830.34 H ABG pH POC ABG pCO2 POC ABG pO2 ABG pO2 ABG HCO3 ABG O2 Saturation ABG Base Excess ABG Hemoglobin ABG Oxyhemoglobin ABG Potassium ABG Glucose VBG pH Oxyhemoglobin Sodium Potassium Chloride Carbon Dioxide 31 H BUN Creatinine Glucose 138 H POC Glucose Hemoglobin A1c Ferritin 572.6 H AST 42 H Lactate Dehydrogenase 706 H C-Reactive Protein 17.30 H Albumin 3.7 L Arterial Blood Glucose Coronavirus (PCR) 08/12/20 08/12/20 08/12/20 13:21 14:55 21:59 WBC Lymph % (Auto) Loving % (Auto) Lymph # (Auto) Loving # (Auto) Seg Neutrophils % Seg Neuts % (Manual) Lymphocytes % (Manual) Seg Neutrophils # Seg Neutrophils # Man Lymphocytes # (Manual) Monocytes # (Manual) D-Dimer ABG pH 7.315 L POC ABG pCO2 57.1 H POC ABG pO2 47.8 L ABG pO2 65.8 L ABG HCO3 31.4 H ABG O2 Saturation 91.7 L ABG Base Excess ABG Hemoglobin 19.3 H ABG Oxyhemoglobin ABG Potassium 4.9 H ABG Glucose 182 H VBG pH Oxyhemoglobin 89.7 L Sodium Potassium Chloride Carbon Dioxide BUN Creatinine Glucose POC Glucose 142 H Hemoglobin A1c Ferritin AST Lactate Dehydrogenase C-Reactive Protein Albumin Arterial Blood Glucose 182 H Coronavirus (PCR) 08/13/20 08/13/20 08/13/20 05:35 05:35 12:11 WBC 12.0 H Lymph % (Auto) 8.1 L Loving % (Auto) Lymph # (Auto) 1.0 L Loving # (Auto) Seg Neutrophils % 88.0 H Seg Neuts % (Manual) Lymphocytes % (Manual) Seg Neutrophils # 10.5 H Seg Neutrophils # Man Lymphocytes # (Manual) Monocytes # (Manual) D-Dimer ABG pH POC ABG pCO2 POC ABG pO2 ABG pO2 ABG HCO3 ABG O2 Saturation ABG Base Excess ABG Hemoglobin ABG Oxyhemoglobin ABG Potassium ABG Glucose VBG pH Oxyhemoglobin Sodium Potassium 5.1 H Chloride Carbon Dioxide 31 H BUN 25 H Creatinine Glucose 174 H POC Glucose 154 H Hemoglobin A1c Ferritin AST 41 H Lactate Dehydrogenase 996 H C-Reactive Protein Albumin 3.8 L Arterial Blood Glucose Coronavirus (PCR) 08/13/20 08/13/20 08/14/20 16:18 23:24 05:21 WBC 14.2 H Lymph % (Auto) 8.2 L Loving % (Auto) Lymph # (Auto) Loving # (Auto) 0.9 H Seg Neutrophils % 85.4 H Seg Neuts % (Manual) Lymphocytes % (Manual) Seg Neutrophils # 12.2 H Seg Neutrophils # Man Lymphocytes # (Manual) Monocytes # (Manual) D-Dimer ABG pH POC ABG pCO2 POC ABG pO2 ABG pO2 ABG HCO3 ABG O2 Saturation ABG Base Excess ABG Hemoglobin ABG Oxyhemoglobin ABG Potassium ABG Glucose VBG pH Oxyhemoglobin Sodium Potassium Chloride Carbon Dioxide BUN Creatinine Glucose POC Glucose 188 H 127 H Hemoglobin A1c Ferritin AST Lactate Dehydrogenase C-Reactive Protein Albumin Arterial Blood Glucose Coronavirus (PCR) 08/14/20 08/14/20 08/14/20 05:21 05:21 05:21 WBC Lymph % (Auto) Loving % (Auto) Lymph # (Auto) Loving # (Auto) Seg Neutrophils % Seg Neuts % (Manual) Lymphocytes % (Manual) Seg Neutrophils # Seg Neutrophils # Man Lymphocytes # (Manual) Monocytes # (Manual) D-Dimer > 12920 H ABG pH POC ABG pCO2 POC ABG pO2 ABG pO2 ABG HCO3 ABG O2 Saturation ABG Base Excess ABG Hemoglobin ABG Oxyhemoglobin ABG Potassium ABG Glucose VBG pH Oxyhemoglobin Sodium Potassium Chloride Carbon Dioxide 32 H 33 H BUN 26 H 26 H Creatinine Glucose 152 H 156 H POC Glucose Hemoglobin A1c Ferritin AST 53 H 54 H Lactate Dehydrogenase 1249 H C-Reactive Protein 9.90 H Albumin 3.7 L 3.7 L Arterial Blood Glucose Coronavirus (PCR) 08/14/20 08/14/20 08/14/20 05:21 05:58 08:23 WBC Lymph % (Auto) Loving % (Auto) Lymph # (Auto) Loving # (Auto) Seg Neutrophils % Seg Neuts % (Manual) Lymphocytes % (Manual) Seg Neutrophils # Seg Neutrophils # Man Lymphocytes # (Manual) Monocytes # (Manual) D-Dimer ABG pH POC ABG pCO2 POC ABG pO2 50.0 L ABG pO2 ABG HCO3 ABG O2 Saturation ABG Base Excess ABG Hemoglobin ABG Oxyhemoglobin 84.0 L ABG Potassium ABG Glucose 141 H VBG pH Oxyhemoglobin Sodium Potassium Chloride Carbon Dioxide BUN Creatinine Glucose POC Glucose 139 H Hemoglobin A1c Ferritin 1198.0 H AST Lactate Dehydrogenase C-Reactive Protein Albumin Arterial Blood Glucose 141 H Coronavirus (PCR) 08/15/20 08/15/20 08/16/20 05:16 05:16 05:26 WBC 13.7 H 17.7 H Lymph % (Auto) 8.2 L Loving % (Auto) Lymph # (Auto) Loving # (Auto) Seg Neutrophils % 86.2 H Seg Neuts % (Manual) 91.0 H 88.0 H Lymphocytes % (Manual) 7.0 L 9.0 L Seg Neutrophils # 15.3 H Seg Neutrophils # Man 12.5 H 15.6 H Lymphocytes # (Manual) 1.0 L Monocytes # (Manual) D-Dimer ABG pH POC ABG pCO2 POC ABG pO2 ABG pO2 ABG HCO3 ABG O2 Saturation ABG Base Excess ABG Hemoglobin ABG Oxyhemoglobin ABG Potassium ABG Glucose VBG pH Oxyhemoglobin Sodium Potassium Chloride Carbon Dioxide 32 H BUN 29 H Creatinine Glucose 150 H POC Glucose Hemoglobin A1c Ferritin AST Lactate Dehydrogenase 1150 H C-Reactive Protein Albumin 3.5 L Arterial Blood Glucose Coronavirus (PCR) 08/16/20 08/16/20 08/16/20 05:26 05:26 05:26 WBC Lymph % (Auto) Loving % (Auto) Lymph # (Auto) Loving # (Auto) Seg Neutrophils % Seg Neuts % (Manual) Lymphocytes % (Manual) Seg Neutrophils # Seg Neutrophils # Man Lymphocytes # (Manual) Monocytes # (Manual) D-Dimer > 36235 H ABG pH POC ABG pCO2 POC ABG pO2 ABG pO2 ABG HCO3 ABG O2 Saturation ABG Base Excess ABG Hemoglobin ABG Oxyhemoglobin ABG Potassium ABG Glucose VBG pH Oxyhemoglobin Sodium Potassium 5.2 H Chloride Carbon Dioxide BUN 25 H Creatinine Glucose 163 H POC Glucose Hemoglobin A1c Ferritin 1013.0 H AST Lactate Dehydrogenase C-Reactive Protein 4.00 H Albumin 3.6 L Arterial Blood Glucose Coronavirus (PCR) 08/17/20 08/17/20 08/17/20 05:06 05:06 07:51 WBC 20.7 H Lymph % (Auto) Loving % (Auto) Lymph # (Auto) Loving # (Auto) Seg Neutrophils % Seg Neuts % (Manual) 86.0 H Lymphocytes % (Manual) 7.0 L Seg Neutrophils # Seg Neutrophils # Man 17.8 H Lymphocytes # (Manual) Monocytes # (Manual) 1.2 H D-Dimer ABG pH POC ABG pCO2 POC ABG pO2 ABG pO2 ABG HCO3 ABG O2 Saturation ABG Base Excess ABG Hemoglobin ABG Oxyhemoglobin ABG Potassium ABG Glucose VBG pH Oxyhemoglobin Sodium Potassium Chloride 96.5 L Carbon Dioxide 31 H BUN 29 H Creatinine Glucose 121 H POC Glucose 110 H Hemoglobin A1c Ferritin AST 46 H Lactate Dehydrogenase C-Reactive Protein Albumin 3.7 L Arterial Blood Glucose Coronavirus (PCR) 08/17/20 08/17/20 08/18/20 11:42 21:45 05:13 WBC Lymph % (Auto) Loving % (Auto) Lymph # (Auto) Loving # (Auto) Seg Neutrophils % Seg Neuts % (Manual) Lymphocytes % (Manual) Seg Neutrophils # Seg Neutrophils # Man Lymphocytes # (Manual) Monocytes # (Manual) D-Dimer > 1000 H ABG pH POC ABG pCO2 POC ABG pO2 ABG pO2 ABG HCO3 ABG O2 Saturation ABG Base Excess ABG Hemoglobin ABG Oxyhemoglobin ABG Potassium ABG Glucose VBG pH Oxyhemoglobin Sodium Potassium Chloride Carbon Dioxide BUN Creatinine Glucose POC Glucose 122 H 143 H Hemoglobin A1c Ferritin AST Lactate Dehydrogenase C-Reactive Protein Albumin Arterial Blood Glucose Coronavirus (PCR) 08/18/20 08/18/20 08/21/20 05:13 05:13 11:17 WBC Lymph % (Auto) Loving % (Auto) Lymph # (Auto) Loving # (Auto) Seg Neutrophils % Seg Neuts % (Manual) Lymphocytes % (Manual) Seg Neutrophils # Seg Neutrophils # Man Lymphocytes # (Manual) Monocytes # (Manual) D-Dimer ABG pH POC ABG pCO2 POC ABG pO2 ABG pO2 ABG HCO3 ABG O2 Saturation ABG Base Excess ABG Hemoglobin ABG Oxyhemoglobin ABG Potassium ABG Glucose VBG pH Oxyhemoglobin Sodium 133 L Potassium Chloride 94.7 L Carbon Dioxide BUN 33 H Creatinine Glucose 110 H POC Glucose 151 H Hemoglobin A1c Ferritin 979.8 H AST 50 H Lactate Dehydrogenase C-Reactive Protein Albumin 3.7 L Arterial Blood Glucose Coronavirus (PCR) 08/21/20 08/21/20 08/21/20 13:39 13:39 15:55 WBC Lymph % (Auto) Loving % (Auto) Lymph # (Auto) Loving # (Auto) Seg Neutrophils % Seg Neuts % (Manual) Lymphocytes % (Manual) Seg Neutrophils # Seg Neutrophils # Man Lymphocytes # (Manual) Monocytes # (Manual) D-Dimer 6731.66 H ABG pH POC ABG pCO2 POC ABG pO2 ABG pO2 ABG HCO3 ABG O2 Saturation ABG Base Excess ABG Hemoglobin ABG Oxyhemoglobin ABG Potassium ABG Glucose VBG pH Oxyhemoglobin Sodium Potassium Chloride Carbon Dioxide BUN Creatinine Glucose POC Glucose Hemoglobin A1c Ferritin 1019.0 H AST Lactate Dehydrogenase 1251 H C-Reactive Protein Albumin Arterial Blood Glucose Coronavirus (PCR) 08/22/20 08/22/20 08/25/20 05:23 05:23 12:30 WBC 24.7 H Lymph % (Auto) Loving % (Auto) Lymph # (Auto) Loving # (Auto) Seg Neutrophils % Seg Neuts % (Manual) Lymphocytes % (Manual) Seg Neutrophils # Seg Neutrophils # Man Lymphocytes # (Manual) Monocytes # (Manual) D-Dimer ABG pH 7.313 L POC ABG pCO2 POC ABG pO2 ABG pO2 76.2 L ABG HCO3 33.3 H ABG O2 Saturation 94.9 L ABG Base Excess 5.0 H ABG Hemoglobin 13.4 L ABG Oxyhemoglobin ABG Potassium ABG Glucose VBG pH Oxyhemoglobin 93.0 L Sodium 136 L Potassium Chloride 96.3 L Carbon Dioxide BUN 24 H Creatinine 0.7 L Glucose 115 H POC Glucose Hemoglobin A1c Ferritin AST Lactate Dehydrogenase C-Reactive Protein Albumin Arterial Blood Glucose Coronavirus (PCR) 08/25/20 08/25/20 08/25/20 16:08 16:08 16:08 WBC Lymph % (Auto) Loving % (Auto) Lymph # (Auto) Loving # (Auto) Seg Neutrophils % Seg Neuts % (Manual) Lymphocytes % (Manual) Seg Neutrophils # Seg Neutrophils # Man Lymphocytes # (Manual) Monocytes # (Manual) D-Dimer 4487.76 H ABG pH POC ABG pCO2 POC ABG pO2 ABG pO2 ABG HCO3 ABG O2 Saturation ABG Base Excess ABG Hemoglobin ABG Oxyhemoglobin ABG Potassium ABG Glucose VBG pH Oxyhemoglobin Sodium Potassium Chloride Carbon Dioxide BUN Creatinine Glucose POC Glucose Hemoglobin A1c Ferritin 961.4 H AST Lactate Dehydrogenase 959 H C-Reactive Protein Albumin Arterial Blood Glucose Coronavirus (PCR) 08/26/20 08/26/20 07:11 07:11 WBC Lymph % (Auto) Loving % (Auto) 9.8 H Lymph # (Auto) Loving # (Auto) 1.0 H Seg Neutrophils % Seg Neuts % (Manual) Lymphocytes % (Manual) Seg Neutrophils # Seg Neutrophils # Man Lymphocytes # (Manual) Monocytes # (Manual) D-Dimer ABG pH POC ABG pCO2 POC ABG pO2 ABG pO2 ABG HCO3 ABG O2 Saturation ABG Base Excess ABG Hemoglobin ABG Oxyhemoglobin ABG Potassium ABG Glucose VBG pH Oxyhemoglobin Sodium 135 L Potassium Chloride 95.7 L Carbon Dioxide 33 H BUN Creatinine Glucose POC Glucose Hemoglobin A1c Ferritin AST Lactate Dehydrogenase C-Reactive Protein Albumin Arterial Blood Glucose Coronavirus (PCR)
--- NOTE | 2020-08-29 14:46 | Progress Note ---
Assessment and Plan Cultures: Blood culture 08/10/2020 no growth SARS CoV2 PCR positive 08/10/2020 urine culture: No growth Assessment: 30 years old male with history of morbid obesity, admitted on 08/10/2020 secondary to 3-day history of intermittent frontal headache: #Leukocytosis: resolved, likely due to steroids/severe hypoxia, repeat procalcitonin level is low #Severe COVID19 pneumonia: On steroids, completed remdesivir. S/P actemra on 08/14/2020. Completed empiric abx course. Procal is low, additional abx not needed. CXR not significant change. Markers trending down #Acute hypoxemic respiratory failure: severe, on HFNC/BIPAP hs/prn 100% #Acute right leg DVT, very high d-dimer. On anticoagulation. #LONNY: Resolved #Morbid obesity: Associated with worse outcomes Recommendations: -Completed steroids -S/P remdesivir, actemra -Monitor inflammatory markers - ferritin, Ddimer, CRP, LDH -continue anticoagulation for DVT/Eliquis -prone positioning whenever possible -pulm on board Calvin Humphreys MD [facility] O: [phone] F: [phone] Subjective Date of service: 08/29/20 Principal diagnosis: COVID Interval history: Afebrile, no acute change. Remains on high flow nasal cannula. Objective - Exam Narrative Exam: Physical exam deferred due to PPE conservation strategy. Please refer to primary team's note. - Constitutional Vitals: Vital Signs Temp Pulse Resp BP Pulse Ox 99.2 F 86 15 129/79 93 08/29/20 03:42 08/29/20 14:00 08/29/20 14:00 08/29/20 14:00 08/29/20 12:00 Temperature -Last 24 Hours Temperature 99.2 F Temperature 99.1 F Temperature 98.4 F Temperature 98.7 F - Labs CBC & Chem 7: 08/26/20 07:11 08/26/20 07:11
[2020-08-30] MEDS: APIXABAN 5 MG TAB PO SCH ×2 (09:30→21:57)
[2020-08-30] MEDS: FAMOTIDINE 20 MG TAB PO SCH ×2 (09:30→21:57)
[2020-08-30] MEDS: ASCORBIC ACID 500 MG TAB PO SCH ×2 (09:31→21:57)
[2020-08-30] MEDS: ZINC SULFATE 220 MG CAP PO SCH (09:31)
--- NOTE | 2020-08-30 12:56 | Progress Note ---
Assessment and Plan Assessment and plan: -Acute hypoxic respiratory failure secondary to COVID-19 PNA Pt remains on high flow oxygen 40/100/93 intermittent 100% nonrebreather Patient unstable to go for CTA chest to evaluate the cause of persistent hypoxia pulmonary following, Home O2 evaluation at discharge --COVID-19 Pneumonia Continue antibiotics Continue steroids total 10 days s/p Remdesivir, s/p tocilizumab Oxygen supplementation with high flow oxygen/ BiPAP/nonrebreather Trend inflammatory markers Prone positioning strongly advised ID and pulmonology following --Right lower extremity DVT on LE Doppler study LE Doppler LE Doppler shows RLE DVT. Echocardiogram shows no right heart strain. On Eliquis per protocol --Sinus bradycardia /resolved Likely from remdesivir Heart rate in 60s and 70s today TSH wnl --Morbid obesity; BMI 41.9 Diet and exercise advised Patient needs outpatient bariatric surgical/medical weight reduction consult when medically stable --Positive DVT ;-on Eliquis Continues to be on high flow oxygen, Wean as tolerated We will closely monitor the patient and adjust management as needed Sanitizer recommendations noted and appreciated Plan of care reviewed with the patient and his nurse and the case management The high probability of a clinically significant, sudden or life threatening deterioration of the [pulmonary,Vascular,ID,CVS and hematology] system(s) required my full and direct attention, intervention and personal management. The aggregate critical care time was [32] minutes. This time is in addition to time spent performing reported procedures but includes the following: [x] Data Review and interpretation [x] Patient assessment and monitoring of vital signs [x] Documentation [x] Medication orders and management Brief history 30-year-old male with morbid obesity weighing about 310 pounds was admitted through emergency room with frontal headache for 3 days. Patient was noted to be hypoxic with shortness of breath and cough O2 sats room air were in the 80s, requiring high flow oxygen, BiPAP, patient was admitted to IMCU Patient was PUI, placed in isolation, gillespie PCR test was positive, evaluated by ID and pulmonary, medications optimized and patient was being managed per COVID-19 protocols and guidelines. Patient continues to depend on high flow oxygen and BiPAP. Today patient continues to be on very high flow oxygen of 40 L/100% FiO2/94 to 96% O2 sats Patient advised bariatric surgical consultation upon discharge for weight redu ction program Work-up in the emergency room showed bilateral patchy opacities in the lungs and hypoxia-hence he was admitted for bilateral pneumonia and possible Covid pneumonia. No significant past medical history Daily Hospital course: 08/11. Patient seen examined at bedside this morning. Has no complaints. Febrile this a.m.-103 Fahrenheit. On Tylenol as needed. COVID-19 test ordered. Remains on steroids. ID consult if COVID-19 is positive. 08/12. His COVID-19 test is positive. He was started on remdesivir last night. Oxygen requirement increased overnight. Inflammatory markers increasing. Repeat chest xray shows worsening infiltrates. Ordered BNP. Lasix 40mg IV ordered. Increased dexamethasone to 6mg BID. Pulmonology consulted. Will place on continuous pulse oximetry. Incentive spirometer ordered. Advised prone positioning. 08/13. Not feeling better. Seen on BIPAP. Remains on steroids, remdesivir and antibiotics. Vitals stable. 08/14. Still maintaining sats even on BiPAP. Lasix 40 mg IV ordered. D-dimer this a.m. is more than 10,000. Lovenox increased to 150 mg twice daily. Ultrasound lower extremities Doppler showed a right DVT. Echocardiogram ordered to rule out right heart strain. Pending results, patient may need vascular surgery evaluation for possible thrombectomy. Continue on BiPAP and continue to monitor respiratory status closely. 08/15. Sats better this AM. Received toculizumab yesterday. Advised him to prone as much as possible. Echo shows normal EF with no right heart strain. I/Os reviewed. He is diuresing well. Renal function is stable. Will give additional lasix today. Pulmonology following 08/16. Remains on remdesivir. Still on BIPAP. Will give lasix 20mg IV. HR is low - likley effect of remdesivir. Will continue to monitor closely 08/17. Sats in the 90's this AM. Still on BIPAP. /2; patient remains hypoxic requiring BiPAP and 100% nonrebreather intermittently 08/19; Continue supportive care, wean oxygen as tolerated. Encouraged PRONE positioning if able to tolerate. 08/20:Remains on BiPAP. continue lasix, still not proninig, encouraged to prone, FIO2 down to 90% with sat of 96%. Continue care, prognosis still guarded. 08/21: Patient down on high flow. Continue to encourage proning position. Still with guarded prognosis. Elevation in WBC noted to 20 this could be secondary to steroids I will continue to monitor. No fever noted at this time. Patient's respiratory status has stabilized on the high flow with no shallow breathing noted Discussed with the nurse at bedside 08/22; DC Lovenox therapeutic dose, start Eliquis per protocol to treat lower extremity DVT. 08/23; patient remains on high flow oxygen 40 L/100 FiO2/94% O2 sats, intermittent BiPAP 08/24; patient remains on high flow oxygen and BiPAP, consultants recommendations noted and appreciated 08/25; patient continues to be hypoxemic, on high flow oxygen 40L/ 100 FiO2/95 O2 sats and on intermittent BiPAP 08/26; patient continues to be on high flow oxygen, unable to wean follow pulmonary recommendations 08/27; patient remains on high flow oxygen 40 L/100% FiO2/95% O2 sats with intermittent BiPAP treatment 08/28; patient remains on high flow oxygen, strongly advised to prone as tolerated, consults and recommendations noted and appreciated 08/29; closely monitor the patient and adjust management as needed, wean oxygen as tolerated Home oxygen evaluation, DC planning when medically stable 08/30; clinically no change, remains on high flow oxygen, wean as tolerated Consultants recommendations noted . History Interval history: COVID-19 patient, I have strictly followed isolation precautions, PPE protocols per COVID-19 guidelines When I evaluated the patient in his room at the bedside. Patient feels slightly better, tolerating prone position more Remains on high flow oxygen/100% nonrebreather Complains of generalized weakness, anxious to go home Vital signs reviewed Hospitalist Physical - Constitutional Vitals: Temp Pulse Resp BP Pulse Ox 98.1 F 89 12 112/67 93 08/30/20 12:00 08/30/20 12:00 08/30/20 12:00 08/30/20 12:00 08/30/20 12:00 General appearance: Present: no acute distress, well-nourished, obese (Morbidly obese) - EENT Eyes: Present: PERRL, EOM intact - Neck Neck: Present: supple, normal ROM - Respiratory Respiratory effort: normal Respiratory: bilateral: diminished, negative: rales, rhonchi, wheezing - Cardiovascular Rhythm: regular Heart Sounds: Present: S1 & S2 - Extremities Extremities: no ischemia, No edema - Abdominal General gastrointestinal: soft, non-tender, non-distended, normal bowel sounds - Integumentary Integumentary: Present: clear, warm - Psychiatric Psychiatric: appropriate mood/affect, cooperative - Neurologic Neurologic: CNII-XII intact, moves all extremities Results - Labs CBC & Chem 7: 08/26/20 07:11 08/26/20 07:11 Labs: Laboratory Last Values WBC 10.4 K/mm3 (4.5-11.0) 08/26/20 07:11 RBC 4.37 M/mm3 (3.65-5.03) 08/26/20 07:11 Hgb 13.2 gm/dl (11.8-15.2) 08/26/20 07:11 Hct 39.2 % (35.5-45.6) 08/26/20 07:11 MCV 90 fl (84-94) 08/26/20 07:11 MCH 30 pg (28-32) 08/26/20 07:11 MCHC 34 % (32-34) 08/26/20 07:11 RDW 14.2 % (13.2-15.2) 08/26/20 07:11 Plt Count 259 K/mm3 (140-440) 08/26/20 07:11 Lymph % (Auto) 20.2 % (13.4-35.0) 08/26/20 07:11 Maries % (Auto) 9.8 % (0.0-7.3) H 08/26/20 07:11 Eos % (Auto) 4.2 % (0.0-4.3) 08/26/20 07:11 Baso % (Auto) 0.5 % (0.0-1.8) 08/26/20 07:11 Lymph # (Auto) 2.1 K/mm3 (1.2-5.4) 08/26/20 07:11 Maries # (Auto) 1.0 K/mm3 (0.0-0.8) H 08/26/20 07:11 Eos # (Auto) 0.4 K/mm3 (0.0-0.4) 08/26/20 07:11 Baso # (Auto) 0.1 K/mm3 (0.0-0.1) 08/26/20 07:11 Add Manual Diff Complete 08/17/20 05:06 Total Counted 100 08/17/20 05:06 Seg Neutrophils % 65.3 % (40.0-70.0) 08/26/20 07:11 Seg Neuts % (Manual) 86.0 % (40.0-70.0) H 08/17/20 05:06 Lymphocytes % (Manual) 7.0 % (13.4-35.0) L 08/17/20 05:06 Monocytes % (Manual) 6.0 % (0.0-7.3) 08/17/20 05:06 Eosinophils % (Manual) 1.0 % (0.0-4.3) 08/17/20 05:06 Metamyelocytes % 2.0 % 08/15/20 05:16 Nucleated RBC % Not Reportable 08/17/20 05:06 Seg Neutrophils # 6.8 K/mm3 (1.8-7.7) 08/26/20 07:11 Seg Neutrophils # Man 17.8 K/mm3 (1.8-7.7) H 08/17/20 05:06 Band Neutrophils # 0.0 K/mm3 08/17/20 05:06 Lymphocytes # (Manual) 1.4 K/mm3 (1.2-5.4) 08/17/20 05:06 Abs React Lymphs (Man) 0.0 K/mm3 08/17/20 05:06 Monocytes # (Manual) 1.2 K/mm3 (0.0-0.8) H 08/17/20 05:06 Eosinophils # (Manual) 0.2 K/mm3 (0.0-0.4) 08/17/20 05:06 Basophils # (Manual) 0.0 K/mm3 (0.0-0.1) 08/17/20 05:06 Metamyelocytes # 0.0 K/mm3 08/17/20 05:06 Myelocytes # 0.0 K/mm3 08/17/20 05:06 Promyelocytes # 0.0 K/mm3 08/17/20 05:06 Blast Cells # 0.0 K/mm3 08/17/20 05:06 WBC Morphology Not Reportable 08/17/20 05:06 Hypersegmented Neuts Not Reportable 08/17/20 05:06 Hyposegmented Neuts Not Reportable 08/17/20 05:06 Hypogranular Neuts Not Reportable 08/17/20 05:06 Smudge Cells Not Reportable 08/17/20 05:06 Toxic Granulation Not Reportable 08/17/20 05:06 Toxic Vacuolation Not Reportable 08/17/20 05:06 Dohle Bodies Not Reportable 08/17/20 05:06 Pelger-Huet Anomaly Not Reportable 08/17/20 05:06 Juan Luis Rods Not Reportable 08/17/20 05:06 Platelet Estimate Consistent w auto 08/17/20 05:06 Clumped Platelets Not Reportable 08/17/20 05:06 Plt Clumps, EDTA Not Reportable 08/17/20 05:06 Large Platelets Not Reportable 08/17/20 05:06 Giant Platelets Not Reportable 08/17/20 05:06 Platelet Satelliting Not Reportable 08/17/20 05:06 Plt Morphology Comment Not Reportable 08/17/20 05:06 RBC Morphology Not Reportable 08/17/20 05:06 Dimorphic RBCs Not Reportable 08/17/20 05:06 Polychromasia Not Reportable 08/17/20 05:06 Hypochromasia Not Reportable 08/17/20 05:06 Poikilocytosis Not Reportable 08/17/20 05:06 Anisocytosis Few 08/17/20 05:06 Microcytosis Not Reportable 08/17/20 05:06 Macrocytosis Not Reportable 08/17/20 05:06 Spherocytes Not Reportable 08/17/20 05:06 Pappenheimer Bodies Not Reportable 08/17/20 05:06 Sickle Cells Not Reportable 08/17/20 05:06 Target Cells Not Reportable 08/17/20 05:06 Tear Drop Cells Not Reportable 08/17/20 05:06 Ovalocytes Not Reportable 08/17/20 05:06 Helmet Cells Not Reportable 08/17/20 05:06 Patterson-Bond Bodies Not Reportable 08/17/20 05:06 Bovina Rings Not Reportable 08/17/20 05:06 [place] Cells Not Reportable 08/17/20 05:06 Bite Cells Not Reportable 08/17/20 05:06 Crenated Cell Not Reportable 08/17/20 05:06 Elliptocytes Not Reportable 08/17/20 05:06 Acanthocytes (Spur) Not Reportable 08/17/20 05:06 Rouleaux Not Reportable 08/17/20 05:06 Hemoglobin C Crystals Not Reportable 08/17/20 05:06 Schistocytes Not Reportable 08/17/20 05:06 Malaria parasites Not Reportable 08/17/20 05:06 Asif Bodies Not Reportable 08/17/20 05:06 Hem Pathologist Commnt No 08/17/20 05:06 PT 12.6 Sec. (12.2-14.9) 08/10/20 08:29 INR 0.96 (0.87-1.13) 08/10/20 08:29 D-Dimer 4487.76 ng/mlDDU (0-234) H 08/25/20 16:08 ABG pH 7.313 pH Units (7.350-7.450) L 08/25/20 12:30 POC ABG pCO2 46.9 mmHg (32.0-48.0) 08/14/20 08:23 ABG pCO2 67.2 mm Hg 08/25/20 12:30 POC ABG pO2 50.0 mmHg (83-108) L 08/14/20 08:23 ABG pO2 76.2 mm Hg (80.0-90.0) L 08/25/20 12:30 POC ABG HCO3 31.4 08/14/20 08:23 ABG HCO3 33.3 mmol/L (20.0-26.0) H 08/25/20 12:30 ABG O2 Saturation 94.9 % (95.0-99.0) L 08/25/20 12:30 ABG O2 Content 17.5 (0.0-44) 08/25/20 12:30 POC ABG Base Excess 6.3 08/14/20 08:23 ABG Base Excess 5.0 mmol/L (-2.0-3.0) H 08/25/20 12:30 ABG Hemoglobin 13.4 gm/dl (14.0-18.0) L 08/25/20 12:30 ABG Oxyhemoglobin 84.0 (94-98) L 08/14/20 08:23 ABG Carboxyhemoglobin 1.5 % (0.0-5.0) 08/25/20 12:30 ABG Methemoglobin 0.5 % (0.0-1.5) 08/25/20 12:30 ABG Sodium 139.2 mmol/L (136.0-145.0) 08/14/20 08:23 ABG Potassium 4.5 mmol/L (3.40-4.50) 08/14/20 08:23 ABG Chloride 99.0 mmol/L (98-107) 08/14/20 08:23 ABG Glucose 141 mg/dL (65-95) H 08/14/20 08:23 VBG pH 7.303 (7.320-7.420) L 08/10/20 08:29 Oxyhemoglobin 93.0 % (95.0-99.0) L 08/25/20 12:30 Carboxyhemoglobin 0.9 (0.5-1.5) 08/14/20 08:23 FiO2 80 % 08/25/20 12:30 FiO2 % 100 08/14/20 08:23 Sodium 135 mmol/L (137-145) L 08/26/20 07:11 Potassium 4.6 mmol/L (3.6-5.0) 08/26/20 07:11 Chloride 95.7 mmol/L (98-107) L 08/26/20 07:11 Carbon Dioxide 33 mmol/L (22-30) H 08/26/20 07:11 Anion Gap 11 mmol/L 08/26/20 07:11 BUN 18 mg/dL (9-20) 08/26/20 07:11 Creatinine 0.8 mg/dL (0.8-1.3) 08/26/20 07:11 Estimated GFR > 60 ml/min 08/26/20 07:11 BUN/Creatinine Ratio 23 % 08/26/20 07:11 Glucose 91 mg/dL (75-100) 08/26/20 07:11 POC Glucose 151 mg/dL (70-105) H 08/21/20 11:17 Hemoglobin A1c 6.1 % (4-6) H 08/11/20 05:39 Lactic Acid 0.80 mmol/L (0.7-2.0) 08/10/20 11:18 Calcium 9.2 mg/dL (8.4-10.2) 08/26/20 07:11 Magnesium 2.20 mg/dL (1.7-2.3) 08/26/20 07:11 Ferritin 961.4 ng/mL (30.0-300.0) H 08/25/20 16:08 Total Bilirubin 0.50 mg/dL (0.1-1.2) 08/18/20 05:13 AST 50 units/L (5-40) H 08/18/20 05:13 ALT 50 units/L (7-56) 08/18/20 05:13 Alkaline Phosphatase 103 units/L (35-129) 08/18/20 05:13 Lactate Dehydrogenase 959 units/L (91-180) H 08/25/20 16:08 C-Reactive Protein 0.10 mg/dL (0.00-1.30) 08/25/20 16:08 NT-Pro-B Natriuret Pep 36.40 pg/mL (0-450) 08/12/20 06:29 Total Protein 6.9 g/dL (6.3-8.2) 08/18/20 05:13 Albumin 3.7 g/dL (3.9-5) L 08/18/20 05:13 Albumin/Globulin Ratio 1.1 % 08/18/20 05:13 Procalcitonin 0.08 ng/mL (<0.15) 08/21/20 13:39 TSH 1.830 mlU/mL (0.270-4.200) 08/17/20 05:06 Free T4 1.01 ng/dL (0.76-1.46) 08/17/20 05:06 Arterial Blood Glucose 141 mg/dL (65-95) H 08/14/20 08:23 Arterial Blood Ionized Calcium 4.8 mg/dL (4.6-5.3) 08/14/20 08:23 Urine Color Yellow (Yellow) 08/10/20 Unknown Urine Turbidity Cloudy (Clear) 08/10/20 Unknown Urine pH 5.0 (5.0-7.0) 08/10/20 Unknown Ur Specific [place] 1.025 (1.003-1.030) 08/10/20 Unknown Urine Protein 30 mg/dl mg/dL (Negative) 08/10/20 Unknown Urine Glucose (UA) 150 mg/dL (Negative) 08/10/20 Unknown Urine Ketones Negative mg/dL (Negative) 08/10/20 Unknown Urine Blood Negative (Negative) 08/10/20 Unknown Urine Nitrite Negative (Negative) 08/10/20 Unknown Urine Bilirubin Negative (Negative) 08/10/20 Unknown Urine Urobilinogen < 2.0 mg/dL (<2.0) 08/10/20 Unknown Ur Leukocyte Esterase Negative (Negative) 08/10/20 Unknown Urine WBC (Auto) 5.0 /HPF (0.0-6.0) 08/10/20 Unknown Urine RBC (Auto) 2.0 /HPF (0.0-6.0) 08/10/20 Unknown U Epithel Cells (Auto) 1.0 /HPF (0-13.0) 08/10/20 Unknown Urine Bacteria (Auto) 1+ /HPF (Negative) 08/10/20 Unknown Urine Mucus 3+ /HPF 08/10/20 Unknown Coronavirus (PCR) Positive (Negative) A 08/11/20 Unknown Gaytan/IV: Voiding Method Urinal Active Medications - Current Medications Current Medications: Generic Name Dose Route Start Last Admin Trade Name Freq PRN Reason Stop Dose Admin Acetaminophen 650 mg 08/10/20 23:48 08/23/20 22:57 Acetaminophen 325 Mg Tab PO 650 mg Q4H PRN Administration Pain MILD(1-3)/Fever >100.5/MARTINEZ Apixaban 5 mg 08/29/20 22:00 08/30/20 09:30 Apixaban 5 Mg Tab PO 5 mg Q12HR MELANIE Administration Protocol Artificial Tears 2 drops 08/16/20 13:44 Hypromellose 0.5% Ophth Soln 15 Ml OU Q4H PRN Dry Eye(s) Ascorbic Acid 500 mg 08/12/20 10:00 08/30/20 09:31 Ascorbic Acid 500 Mg Tab PO 500 mg BID MELANIE Administration Famotidine 20 mg 08/27/20 12:00 08/30/20 09:30 Famotidine 20 Mg Tab PO 20 mg BID MELANIE Administration Metoclopramide HCl 10 mg 08/10/20 23:48 Metoclopramide 10 Mg/2 Ml Inj IV Q6H PRN Nausea And Vomiting Morphine Sulfate 2 mg 08/10/20 23:48 08/25/20 10:20 Morphine 2 Mg/1 Ml Inj IV 2 mg Q4H PRN Administration Pain, Moderate (4-6) Ondansetron HCl 4 mg 08/10/20 23:48 Ondansetron 4 Mg/2 Ml Inj IV Q8H PRN Nausea And Vomiting Oxycodone/Acetaminophen 1 tab 08/10/20 23:48 08/25/20 21:08 Oxycodone /Acetaminophen 5-325mg Tab PO 1 tab Q6H PRN Administration Pain, Moderate (4-6) Sodium Chloride 10 ml 08/11/20 10:00 08/30/20 09:31 Sodium Chloride 0.9% 10 Ml Flush Syringe IV 10 ml BID MELANIE Administration Sodium Chloride 10 ml 08/10/20 23:48 08/12/20 21:04 Sodium Chloride 0.9% 10 Ml Flush Syringe IV 10 ml PRN PRN Administration LINE FLUSH Zinc Sulfate 220 mg 08/12/20 12:00 08/30/20 09:31 Zinc Sulfate 220 Mg Cap PO 220 mg QDAY MELANIE Administration Nutrition/Malnutrition Assess - Dietary Evaluation Nutrition/Malnutrition Findings: Nutrition Notes Start: 08/17/20 10:49 Freq: Status: Active Protocol: Document 08/28/20 15:35 CW (Rec: 08/28/20 15:39 CW [id number]) Nutrition Notes Initial or Follow up Reassessment Other Pertinent Diagnosis COVID-19 (+), pneu, RLE DVT, sinus bradycardia Current Diet Regular Labs/Tests 08/26/2020 Na 135 Pertinent Medications lasix Height 5 ft 11 in Weight 134 kg [place] Body Weight (kg) 78.18 BMI 41.2 Weight change and time frame weight change likely related to diuertics usage Weight Status Morbidly Obese Subjective/Other Information F/U for intakes. Pt has been eating 50% of meals. Food preferences updated and information relayed to kitchen . Percent of energy/protein needs met: 78%/86% Burn Absent Trauma Absent Cultural/Ethnic/[employer] Belief Requests salads with chicken Current % PO Fair (50-74%) Minimum of two criteria No #1 Nutrition Diagnosis Inadequate oral intake Diagnosis Progress(for reassessment Continues documentation) Is patient on ventilator? No Is Patient Ambulatory and/or Out of Bed No REE-([facility]-confined to bed) 2793.732 Kcal/Kg value to use for calculation 14 Approximate Energy Requirements Using 1876 kcal/Kg Calculation Used for Recommendations Kcal/kg Additional Notes Pro needs 0.8-1g/kg adjBW: 90- 113g/day Fluid needs 1ml/kcal Nutrition Intervention Change Diet Order: Continue current diet as tolerated Add Supplement/Snack (indicate name/kcal Ensure High Protein BID /protein ) Provides kCal: 320 Provides Protein (gm) 32 Goal #1 PO tolerance Goal #2 PO intake of meals plus ONS to meet at least 75% energy and pro needs Anticipated Discharge Needs: Regular Diet Follow-Up By: 09/01/20 Additional Comments F/U for intakes and ONS tolerance
--- NOTE | 2020-08-30 13:58 | Progress Note ---
Assessment and Plan 30 y/o morbidly obese male with acute respiratory failure secondary to COVID 19 pneumonia. now found to have DVT in lower ext. 08/30/20: Proning is a must. Will give lasix 40 today. Continue anticoagulation. Prognosis remians very very guarded. Avoid intubation at all costs. 08/29/20: Continue to prone as tolerated during the day and sleep prone at night. HOld on lasix today. Continue anticoagulation. Guarded prognosis. 08/28/20: Continue to prone as tolerated. Today will give lasix 40 to see if this helps. Will discuss with cardiology about echo. Clinically patient looks the same and not in distress. If PE is present, likely not large enough for EKOS. Given his high O2 requirement, prefer not to try CTA at this time as I feel the risks outweigh the benefits. 08/27/20: Long discussion with patient again at bedside today. May need to consider repeat ECHO to look for right heart strain. We know he had VTE in the lower ext but never had to oppurtunity to truly rule him out for PE. Cousin who is an TELEVISION ANALYZER in outpatient setting at [facility] asked some questions so I spoke with her via the phone. She is going to help encourage proning. Will give more lasix today. Very very guarded prognosis. 08/26/20: Pulm status is more stable today compared to yesterday. Continue bipap PRN and QHS. Will give IV lasix again today. Prognosis still remains very guarded. 08/25/20: Placed back on bipap this am secondary to desaturations and lower mental state than before. Patient has been stable and making improvements but now seems to be headed in the wrong direction. Will monitor very closely as he is a high risk for intubation and bad outcomes. Very very guarded prognosis. Will give lasix today. 08/24/20: Encouraged more proning. Continue BIpap QHS and PRN. unfortunately, no funding, patient would be a good LTACH candidate as he will likely take a long time to wean from HFNC. 08/23/20: No new recs. Proning is metcalf. Will continue to follow. Appreciate ID recs and help. 08/22/20: Bipap PRN and QHS. Will given lasix today. Prone as tolerated. PT continues. Slight improvement. Will continue to follow. 08/21/20: Bipap PRN and QHS. Hold on lasix today. Continue to prone as much as tolerated. Will order PT consult. 08/18/20: Bipap pRN and QHS. More lasix today. Prone as tolerated during the y and sleep prone at night. Continue to try to hold off on intubation. Guarded prognosis. 08/17/20: Continue anticoagulation. Still trying to prevent intubation however will do electively if and when needed to prevent and emergent situation as patient will likely be difficult given neck and body habitus. Continue prone as tolerated. Steroids and remdesivir. 08/16/20: Anticoagulation. Prone as tolerated. Wean bipap as tolerated. Prognosis remains guarded. Trying to prevent intubation given poor outcomes associated with mechanically ventilated obese COVID patients. 08/15/20: Continue therapeutic anticoagulation. No current indication for vascular consult given no evidence of right heart strain on echo. CT would only be beneficial if we thought it would show large enough clot to warrant EKOS and with no evidence of strain, I doubt that will be the case. Continue proning as much as tolerated. Spoke with mother over the phone to update her. Patient also got actemra on yesterday as well. Prognosis remains guarded 08/14/20: Will accept sats in the mid 80's as long as mental state and work of breathing do not change. AGree with lasix therapy. Found to have large DVT on right. Spoke with [facility] and asked them to order stat echo to look for right heart strain, and if present may need to consider echos. Await echo before vascular consult. Prone if possible. Long discussion with mother on phone. Gave her a list of the meds he is on and what our current plan is. Also very candid with her and son at bedside that the mortality rate with COVID is very very high. 08/13/20: Lasix again today. Continue to alternate between HFNC with NRB and bipap. Prognosis is very very guarded. Very very guarded to poor prognosis given CXR appearance, and body habitus, along with rapid decline in self sustaning oxygen levels. Agree with lasix and increase in steroids. Must prone. Very high likelihood for mechanical ventilation which would carry a high mortality for patient. Will continue to follow. No additional IVF's unless indicated. Subjective Date of service: 08/30/20 Principal diagnosis: COVID Interval history: Still on HFNC and NRB. Sats in the low 90's. BP stable. Objective Vital Signs - 12hr 08/30/20 08/30/20 08/30/20 02:00 02:28 02:30 Temperature Pulse Rate 90 90 Pulse Rate [ From Monitor] Respiratory 13 15 Rate Blood Pressure 127/77 127/77 O2 Sat by Pulse 96 95 95 Oximetry 08/30/20 08/30/20 08/30/20 03:00 03:30 04:00 Temperature Pulse Rate 105 H 89 87 Pulse Rate [ 89 From Monitor] Respiratory 16 12 12 Rate Blood Pressure 139/92 139/92 141/91 O2 Sat by Pulse 91 89 94 Oximetry 08/30/20 08/30/20 08/30/20 04:30 05:00 05:30 Temperature Pulse Rate 97 H 90 86 Pulse Rate [ From Monitor] Respiratory 8 L 14 11 L Rate Blood Pressure 141/91 112/65 112/65 O2 Sat by Pulse 88 92 94 Oximetry 08/30/20 08/30/20 08/30/20 06:00 06:30 07:00 Temperature Pulse Rate 88 84 98 H Pulse Rate [ From Monitor] Respiratory 16 10 L 9 L Rate Blood Pressure 106/58 106/58 106/58 O2 Sat by Pulse 94 96 92 Oximetry 08/30/20 08/30/20 08/30/20 07:31 08:00 08:01 Temperature 98.0 F Pulse Rate 95 H 62 87 Pulse Rate [ 89 From Monitor] Respiratory 15 12 13 Rate Blood Pressure 115/62 115/77 O2 Sat by Pulse 88 94 93 Oximetry 08/30/20 08/30/20 08/30/20 08:31 08:32 09:01 Temperature Pulse Rate 94 H 100 H Pulse Rate [ From Monitor] Respiratory 14 16 Rate Blood Pressure 115/77 57/32 O2 Sat by Pulse 93 92 92 Oximetry 08/30/20 08/30/20 08/30/20 09:31 10:00 10:31 Temperature Pulse Rate 98 H Pulse Rate [ From Monitor] Respiratory 15 Rate Blood Pressure 114/75 108/84 108/84 O2 Sat by Pulse 93 92 91 Oximetry 08/30/20 08/30/20 08/30/20 11:00 11:31 12:00 Temperature 98.1 F Pulse Rate 62 Pulse Rate [ 89 From Monitor] Respiratory 12 Rate Blood Pressure 113/63 113/63 112/67 O2 Sat by Pulse 94 95 93 Oximetry CBC and BMP: 08/26/20 07:11 08/26/20 07:11 ABG, PT/INR, D-dimer: ABG ABG pH 7.313 pH Units (7.350-7.450) L 08/25/20 12:30 POC ABG pCO2 46.9 mmHg (32.0-48.0) 08/14/20 08:23 ABG pCO2 67.2 mm Hg 08/25/20 12:30 POC ABG pO2 50.0 mmHg (83-108) L 08/14/20 08:23 ABG pO2 76.2 mm Hg (80.0-90.0) L 08/25/20 12:30 POC ABG HCO3 31.4 08/14/20 08:23 ABG O2 Saturation 94.9 % (95.0-99.0) L 08/25/20 12:30 PT/INR, D-dimer PT 12.6 Sec. (12.2-14.9) 08/10/20 08:29 INR 0.96 (0.87-1.13) 08/10/20 08:29 D-Dimer 4487.76 ng/mlDDU (0-234) H 08/25/20 16:08 Abnormal lab findings: Abnormal Labs 08/10/20 08/10/20 08/10/20 08:29 08:29 08:29 WBC Lymph % (Auto) [place] % (Auto) 8.4 H Lymph # (Auto) [place] # (Auto) Seg Neutrophils % Seg Neuts % (Manual) Lymphocytes % (Manual) Seg Neutrophils # Seg Neutrophils # Man Lymphocytes # (Manual) Monocytes # (Manual) D-Dimer ABG pH POC ABG pCO2 POC ABG pO2 ABG pO2 ABG HCO3 ABG O2 Saturation ABG Base Excess ABG Hemoglobin ABG Oxyhemoglobin ABG Potassium ABG Glucose VBG pH 7.303 L Oxyhemoglobin Sodium Potassium Chloride Carbon Dioxide BUN Creatinine Glucose 132 H POC Glucose Hemoglobin A1c Ferritin AST Lactate Dehydrogenase C-Reactive Protein Albumin Arterial Blood Glucose Coronavirus (PCR) 08/11/20 08/11/20 08/11/20 05:39 05:39 05:39 WBC Lymph % (Auto) 12.5 L [place] % (Auto) Lymph # (Auto) [place] # (Auto) Seg Neutrophils % 84.2 H Seg Neuts % (Manual) Lymphocytes % (Manual) Seg Neutrophils # 9.1 H Seg Neutrophils # Man Lymphocytes # (Manual) Monocytes # (Manual) D-Dimer ABG pH POC ABG pCO2 POC ABG pO2 ABG pO2 ABG HCO3 ABG O2 Saturation ABG Base Excess ABG Hemoglobin ABG Oxyhemoglobin ABG Potassium ABG Glucose VBG pH Oxyhemoglobin Sodium Potassium Chloride Carbon Dioxide BUN Creatinine Glucose 125 H POC Glucose Hemoglobin A1c 6.1 H Ferritin AST Lactate Dehydrogenase C-Reactive Protein Albumin Arterial Blood Glucose Coronavirus (PCR) 08/11/20 08/11/20 08/11/20 18:58 18:58 18:58 WBC Lymph % (Auto) [place] % (Auto) Lymph # (Auto) [place] # (Auto) Seg Neutrophils % Seg Neuts % (Manual) Lymphocytes % (Manual) Seg Neutrophils # Seg Neutrophils # Man Lymphocytes # (Manual) Monocytes # (Manual) D-Dimer 464.84 H ABG pH POC ABG pCO2 POC ABG pO2 ABG pO2 ABG HCO3 ABG O2 Saturation ABG Base Excess ABG Hemoglobin ABG Oxyhemoglobin ABG Potassium ABG Glucose VBG pH Oxyhemoglobin Sodium Potassium Chloride Carbon Dioxide BUN Creatinine Glucose POC Glucose Hemoglobin A1c Ferritin 528.7 H AST Lactate Dehydrogenase 637 H C-Reactive Protein 11.30 H Albumin Arterial Blood Glucose Coronavirus (PCR) 08/11/20 08/11/20 08/12/20 19:08 Unknown 06:29 WBC 11.2 H Lymph % (Auto) 8.6 L [place] % (Auto) Lymph # (Auto) 1.0 L [place] # (Auto) Seg Neutrophils % 88.3 H Seg Neuts % (Manual) Lymphocytes % (Manual) Seg Neutrophils # 9.8 H Seg Neutrophils # Man Lymphocytes # (Manual) Monocytes # (Manual) D-Dimer ABG pH POC ABG pCO2 POC ABG pO2 ABG pO2 ABG HCO3 ABG O2 Saturation ABG Base Excess ABG Hemoglobin ABG Oxyhemoglobin ABG Potassium ABG Glucose VBG pH Oxyhemoglobin Sodium Potassium Chloride Carbon Dioxide BUN Creatinine Glucose 161 H POC Glucose Hemoglobin A1c Ferritin AST Lactate Dehydrogenase C-Reactive Protein Albumin Arterial Blood Glucose Coronavirus (PCR) Positive A 08/12/20 08/12/20 08/12/20 06:29 06:29 06:29 WBC Lymph % (Auto) [place] % (Auto) Lymph # (Auto) [place] # (Auto) Seg Neutrophils % Seg Neuts % (Manual) Lymphocytes % (Manual) Seg Neutrophils # Seg Neutrophils # Man Lymphocytes # (Manual) Monocytes # (Manual) D-Dimer 830.34 H ABG pH POC ABG pCO2 POC ABG pO2 ABG pO2 ABG HCO3 ABG O2 Saturation ABG Base Excess ABG Hemoglobin ABG Oxyhemoglobin ABG Potassium ABG Glucose VBG pH Oxyhemoglobin Sodium Potassium Chloride Carbon Dioxide 31 H BUN Creatinine Glucose 138 H POC Glucose Hemoglobin A1c Ferritin 572.6 H AST 42 H Lactate Dehydrogenase 706 H C-Reactive Protein 17.30 H Albumin 3.7 L Arterial Blood Glucose Coronavirus (PCR) 08/12/20 08/12/20 08/12/20 13:21 14:55 21:59 WBC Lymph % (Auto) [place] % (Auto) Lymph # (Auto) [place] # (Auto) Seg Neutrophils % Seg Neuts % (Manual) Lymphocytes % (Manual) Seg Neutrophils # Seg Neutrophils # Man Lymphocytes # (Manual) Monocytes # (Manual) D-Dimer ABG pH 7.315 L POC ABG pCO2 57.1 H POC ABG pO2 47.8 L ABG pO2 65.8 L ABG HCO3 31.4 H ABG O2 Saturation 91.7 L ABG Base Excess ABG Hemoglobin 19.3 H ABG Oxyhemoglobin ABG Potassium 4.9 H ABG Glucose 182 H VBG pH Oxyhemoglobin 89.7 L Sodium Potassium Chloride Carbon Dioxide BUN Creatinine Glucose POC Glucose 142 H Hemoglobin A1c Ferritin AST Lactate Dehydrogenase C-Reactive Protein Albumin Arterial Blood Glucose 182 H Coronavirus (PCR) 08/13/20 08/13/20 08/13/20 05:35 05:35 12:11 WBC 12.0 H Lymph % (Auto) 8.1 L [place] % (Auto) Lymph # (Auto) 1.0 L [place] # (Auto) Seg Neutrophils % 88.0 H Seg Neuts % (Manual) Lymphocytes % (Manual) Seg Neutrophils # 10.5 H Seg Neutrophils # Man Lymphocytes # (Manual) Monocytes # (Manual) D-Dimer ABG pH POC ABG pCO2 POC ABG pO2 ABG pO2 ABG HCO3 ABG O2 Saturation ABG Base Excess ABG Hemoglobin ABG Oxyhemoglobin ABG Potassium ABG Glucose VBG pH Oxyhemoglobin Sodium Potassium 5.1 H Chloride Carbon Dioxide 31 H BUN 25 H Creatinine Glucose 174 H POC Glucose 154 H Hemoglobin A1c Ferritin AST 41 H Lactate Dehydrogenase 996 H C-Reactive Protein Albumin 3.8 L Arterial Blood Glucose Coronavirus (PCR) 08/13/20 08/13/20 08/14/20 16:18 23:24 05:21 WBC 14.2 H Lymph % (Auto) 8.2 L [place] % (Auto) Lymph # (Auto) [place] # (Auto) 0.9 H Seg Neutrophils % 85.4 H Seg Neuts % (Manual) Lymphocytes % (Manual) Seg Neutrophils # 12.2 H Seg Neutrophils # Man Lymphocytes # (Manual) Monocytes # (Manual) D-Dimer ABG pH POC ABG pCO2 POC ABG pO2 ABG pO2 ABG HCO3 ABG O2 Saturation ABG Base Excess ABG Hemoglobin ABG Oxyhemoglobin ABG Potassium ABG Glucose VBG pH Oxyhemoglobin Sodium Potassium Chloride Carbon Dioxide BUN Creatinine Glucose POC Glucose 188 H 127 H Hemoglobin A1c Ferritin AST Lactate Dehydrogenase C-Reactive Protein Albumin Arterial Blood Glucose Coronavirus (PCR) 08/14/20 08/14/20 08/14/20 05:21 05:21 05:21 WBC Lymph % (Auto) [place] % (Auto) Lymph # (Auto) [place] # (Auto) Seg Neutrophils % Seg Neuts % (Manual) Lymphocytes % (Manual) Seg Neutrophils # Seg Neutrophils # Man Lymphocytes # (Manual) Monocytes # (Manual) D-Dimer > 31103 H ABG pH POC ABG pCO2 POC ABG pO2 ABG pO2 ABG HCO3 ABG O2 Saturation ABG Base Excess ABG Hemoglobin ABG Oxyhemoglobin ABG Potassium ABG Glucose VBG pH Oxyhemoglobin Sodium Potassium Chloride Carbon Dioxide 32 H 33 H BUN 26 H 26 H Creatinine Glucose 152 H 156 H POC Glucose Hemoglobin A1c Ferritin AST 53 H 54 H Lactate Dehydrogenase 1249 H C-Reactive Protein 9.90 H Albumin 3.7 L 3.7 L Arterial Blood Glucose Coronavirus (PCR) 08/14/20 08/14/20 08/14/20 05:21 05:58 08:23 WBC Lymph % (Auto) [place] % (Auto) Lymph # (Auto) [place] # (Auto) Seg Neutrophils % Seg Neuts % (Manual) Lymphocytes % (Manual) Seg Neutrophils # Seg Neutrophils # Man Lymphocytes # (Manual) Monocytes # (Manual) D-Dimer ABG pH POC ABG pCO2 POC ABG pO2 50.0 L ABG pO2 ABG HCO3 ABG O2 Saturation ABG Base Excess ABG Hemoglobin ABG Oxyhemoglobin 84.0 L ABG Potassium ABG Glucose 141 H VBG pH Oxyhemoglobin Sodium Potassium Chloride Carbon Dioxide BUN Creatinine Glucose POC Glucose 139 H Hemoglobin A1c Ferritin 1198.0 H AST Lactate Dehydrogenase C-Reactive Protein Albumin Arterial Blood Glucose 141 H Coronavirus (PCR) 08/15/20 08/15/20 08/16/20 05:16 05:16 05:26 WBC 13.7 H 17.7 H Lymph % (Auto) 8.2 L [place] % (Auto) Lymph # (Auto) [place] # (Auto) Seg Neutrophils % 86.2 H Seg Neuts % (Manual) 91.0 H 88.0 H Lymphocytes % (Manual) 7.0 L 9.0 L Seg Neutrophils # 15.3 H Seg Neutrophils # Man 12.5 H 15.6 H Lymphocytes # (Manual) 1.0 L Monocytes # (Manual) D-Dimer ABG pH POC ABG pCO2 POC ABG pO2 ABG pO2 ABG HCO3 ABG O2 Saturation ABG Base Excess ABG Hemoglobin ABG Oxyhemoglobin ABG Potassium ABG Glucose VBG pH Oxyhemoglobin Sodium Potassium Chloride Carbon Dioxide 32 H BUN 29 H Creatinine Glucose 150 H POC Glucose Hemoglobin A1c Ferritin AST Lactate Dehydrogenase 1150 H C-Reactive Protein Albumin 3.5 L Arterial Blood Glucose Coronavirus (PCR) 08/16/20 08/16/20 08/16/20 05:26 05:26 05:26 WBC Lymph % (Auto) [place] % (Auto) Lymph # (Auto) [place] # (Auto) Seg Neutrophils % Seg Neuts % (Manual) Lymphocytes % (Manual) Seg Neutrophils # Seg Neutrophils # Man Lymphocytes # (Manual) Monocytes # (Manual) D-Dimer > 70363 H ABG pH POC ABG pCO2 POC ABG pO2 ABG pO2 ABG HCO3 ABG O2 Saturation ABG Base Excess ABG Hemoglobin ABG Oxyhemoglobin ABG Potassium ABG Glucose VBG pH Oxyhemoglobin Sodium Potassium 5.2 H Chloride Carbon Dioxide BUN 25 H Creatinine Glucose 163 H POC Glucose Hemoglobin A1c Ferritin 1013.0 H AST Lactate Dehydrogenase C-Reactive Protein 4.00 H Albumin 3.6 L Arterial Blood Glucose Coronavirus (PCR) 08/17/20 08/17/20 08/17/20 05:06 05:06 07:51 WBC 20.7 H Lymph % (Auto) [place] % (Auto) Lymph # (Auto) [place] # (Auto) Seg Neutrophils % Seg Neuts % (Manual) 86.0 H Lymphocytes % (Manual) 7.0 L Seg Neutrophils # Seg Neutrophils # Man 17.8 H Lymphocytes # (Manual) Monocytes # (Manual) 1.2 H D-Dimer ABG pH POC ABG pCO2 POC ABG pO2 ABG pO2 ABG HCO3 ABG O2 Saturation ABG Base Excess ABG Hemoglobin ABG Oxyhemoglobin ABG Potassium ABG Glucose VBG pH Oxyhemoglobin Sodium Potassium Chloride 96.5 L Carbon Dioxide 31 H BUN 29 H Creatinine Glucose 121 H POC Glucose 110 H Hemoglobin A1c Ferritin AST 46 H Lactate Dehydrogenase C-Reactive Protein Albumin 3.7 L Arterial Blood Glucose Coronavirus (PCR) 08/17/20 08/17/20 08/18/20 11:42 21:45 05:13 WBC Lymph % (Auto) [place] % (Auto) Lymph # (Auto) [place] # (Auto) Seg Neutrophils % Seg Neuts % (Manual) Lymphocytes % (Manual) Seg Neutrophils # Seg Neutrophils # Man Lymphocytes # (Manual) Monocytes # (Manual) D-Dimer > 1000 H ABG pH POC ABG pCO2 POC ABG pO2 ABG pO2 ABG HCO3 ABG O2 Saturation ABG Base Excess ABG Hemoglobin ABG Oxyhemoglobin ABG Potassium ABG Glucose VBG pH Oxyhemoglobin Sodium Potassium Chloride Carbon Dioxide BUN Creatinine Glucose POC Glucose 122 H 143 H Hemoglobin A1c Ferritin AST Lactate Dehydrogenase C-Reactive Protein Albumin Arterial Blood Glucose Coronavirus (PCR) 08/18/20 08/18/20 08/21/20 05:13 05:13 11:17 WBC Lymph % (Auto) [place] % (Auto) Lymph # (Auto) [place] # (Auto) Seg Neutrophils % Seg Neuts % (Manual) Lymphocytes % (Manual) Seg Neutrophils # Seg Neutrophils # Man Lymphocytes # (Manual) Monocytes # (Manual) D-Dimer ABG pH POC ABG pCO2 POC ABG pO2 ABG pO2 ABG HCO3 ABG O2 Saturation ABG Base Excess ABG Hemoglobin ABG Oxyhemoglobin ABG Potassium ABG Glucose VBG pH Oxyhemoglobin Sodium 133 L Potassium Chloride 94.7 L Carbon Dioxide BUN 33 H Creatinine Glucose 110 H POC Glucose 151 H Hemoglobin A1c Ferritin 979.8 H AST 50 H Lactate Dehydrogenase C-Reactive Protein Albumin 3.7 L Arterial Blood Glucose Coronavirus (PCR) 08/21/20 08/21/20 08/21/20 13:39 13:39 15:55 WBC Lymph % (Auto) [place] % (Auto) Lymph # (Auto) [place] # (Auto) Seg Neutrophils % Seg Neuts % (Manual) Lymphocytes % (Manual) Seg Neutrophils # Seg Neutrophils # Man Lymphocytes # (Manual) Monocytes # (Manual) D-Dimer 6731.66 H ABG pH POC ABG pCO2 POC ABG pO2 ABG pO2 ABG HCO3 ABG O2 Saturation ABG Base Excess ABG Hemoglobin ABG Oxyhemoglobin ABG Potassium ABG Glucose VBG pH Oxyhemoglobin Sodium Potassium Chloride Carbon Dioxide BUN Creatinine Glucose POC Glucose Hemoglobin A1c Ferritin 1019.0 H AST Lactate Dehydrogenase 1251 H C-Reactive Protein Albumin Arterial Blood Glucose Coronavirus (PCR) 08/22/20 08/22/20 08/25/20 05:23 05:23 12:30 WBC 24.7 H Lymph % (Auto) [place] % (Auto) Lymph # (Auto) [place] # (Auto) Seg Neutrophils % Seg Neuts % (Manual) Lymphocytes % (Manual) Seg Neutrophils # Seg Neutrophils # Man Lymphocytes # (Manual) Monocytes # (Manual) D-Dimer ABG pH 7.313 L POC ABG pCO2 POC ABG pO2 ABG pO2 76.2 L ABG HCO3 33.3 H ABG O2 Saturation 94.9 L ABG Base Excess 5.0 H ABG Hemoglobin 13.4 L ABG Oxyhemoglobin ABG Potassium ABG Glucose VBG pH Oxyhemoglobin 93.0 L Sodium 136 L Potassium Chloride 96.3 L Carbon Dioxide BUN 24 H Creatinine 0.7 L Glucose 115 H POC Glucose Hemoglobin A1c Ferritin AST Lactate Dehydrogenase C-Reactive Protein Albumin Arterial Blood Glucose Coronavirus (PCR) 08/25/20 08/25/20 08/25/20 16:08 16:08 16:08 WBC Lymph % (Auto) [place] % (Auto) Lymph # (Auto) [place] # (Auto) Seg Neutrophils % Seg Neuts % (Manual) Lymphocytes % (Manual) Seg Neutrophils # Seg Neutrophils # Man Lymphocytes # (Manual) Monocytes # (Manual) D-Dimer 4487.76 H ABG pH POC ABG pCO2 POC ABG pO2 ABG pO2 ABG HCO3 ABG O2 Saturation ABG Base Excess ABG Hemoglobin ABG Oxyhemoglobin ABG Potassium ABG Glucose VBG pH Oxyhemoglobin Sodium Potassium Chloride Carbon Dioxide BUN Creatinine Glucose POC Glucose Hemoglobin A1c Ferritin 961.4 H AST Lactate Dehydrogenase 959 H C-Reactive Protein Albumin Arterial Blood Glucose Coronavirus (PCR) 08/26/20 08/26/20 07:11 07:11 WBC Lymph % (Auto) [place] % (Auto) 9.8 H Lymph # (Auto) [place] # (Auto) 1.0 H Seg Neutrophils % Seg Neuts % (Manual) Lymphocytes % (Manual) Seg Neutrophils # Seg Neutrophils # Man Lymphocytes # (Manual) Monocytes # (Manual) D-Dimer ABG pH POC ABG pCO2 POC ABG pO2 ABG pO2 ABG HCO3 ABG O2 Saturation ABG Base Excess ABG Hemoglobin ABG Oxyhemoglobin ABG Potassium ABG Glucose VBG pH Oxyhemoglobin Sodium 135 L Potassium Chloride 95.7 L Carbon Dioxide 33 H BUN Creatinine Glucose POC Glucose Hemoglobin A1c Ferritin AST Lactate Dehydrogenase C-Reactive Protein Albumin Arterial Blood Glucose Coronavirus (PCR)
[2020-08-30] MEDS ORDERED: FUROSEMIDE 40 MG/4 ML INJ IV SCH (14:00)
--- NOTE | 2020-08-30 15:01 | Progress Note ---
Assessment and Plan Cultures: Blood culture 08/10/2020 no growth SARS CoV2 PCR positive 08/10/2020 urine culture: No growth Assessment: 30 years old male with history of morbid obesity, admitted on 08/10/2020 secondary to 3-day history of intermittent frontal headache: #Leukocytosis: resolved, likely due to steroids/severe hypoxia, repeat procalcitonin level is low #Severe COVID19 pneumonia: On steroids, completed remdesivir. S/P actemra on 08/14/2020. Completed empiric abx course. Procal is low, additional abx not needed. CXR not significant change. Markers trending down #Acute hypoxemic respiratory failure: severe, on nonrebreather #Acute right leg DVT, very high d-dimer. On anticoagulation. #LONNY: Resolved #Morbid obesity: Associated with worse outcomes Recommendations: -Completed steroids -S/P remdesivir, actemra -Monitor inflammatory markers - ferritin, Ddimer, CRP, LDH -continue anticoagulation for DVT/Eliquis -prone positioning whenever possible -pulm on board Calvin Humphreys MD [facility] O: [phone] F: [phone] Subjective Date of service: 08/30/20 Principal diagnosis: COVID Interval history: Febrile last night to 100.4, which is since resolved. No other acute change. Objective - Exam Narrative Exam: Physical exam deferred due to PPE conservation strategy. Please refer to primary team's note. - Constitutional Vitals: Vital Signs Temp Pulse Resp BP Pulse Ox 98.1 F 89 12 112/67 93 08/30/20 12:00 08/30/20 12:00 08/30/20 12:00 08/30/20 12:00 08/30/20 12:00 Temperature -Last 24 Hours Temperature 98.1 F Temperature 98.0 F Temperature 98.2 F Temperature 100.4 F - Labs CBC & Chem 7: 08/26/20 07:11 08/26/20 07:11
[2020-08-31] MEDS: ACETAMINOPHEN 325 MG TAB PO PRN (00:34)
--- NOTE | 2020-08-31 09:06 | Progress Note ---
Assessment and Plan 30 y/o morbidly obese male with acute respiratory failure secondary to COVID 19 pneumonia. now found to have DVT in lower ext. 08/31/20: Going to place patient back on steroids. Will do solumedrol 40q8 at least for the next 48-72 hours to see if this helps. Checked stat labs this morning to evaluate renal function and potassium levels before anymore lasix is given. Continue to prone as tolerated and bipap QHS. Prognosis remains guarded. 08/30/20: Proning is a must. Will give lasix 40 today. Continue anticoagulation. Prognosis remians very very guarded. Avoid intubation at all costs. 08/29/20: Continue to prone as tolerated during the day and sleep prone at night. HOld on lasix today. Continue anticoagulation. Guarded prognosis. 08/28/20: Continue to prone as tolerated. Today will give lasix 40 to see if this helps. Will discuss with cardiology about echo. Clinically patient looks the same and not in distress. If PE is present, likely not large enough for EKOS. Given his high O2 requirement, prefer not to try CTA at this time as I feel the risks outweigh the benefits. 08/27/20: Long discussion with patient again at bedside today. May need to consider repeat ECHO to look for right heart strain. We know he had VTE in the lower ext but never had to oppurtunity to truly rule him out for PE. Cousin who is an [employer]OR[employer] TECH in outpatient setting at [place] asked some questions so I spoke with her via the phone. She is going to help encourage proning. Will give more lasix today. Very very guarded prognosis. 08/26/20: Pulm status is more stable today compared to yesterday. Continue bipap PRN and QHS. Will give IV lasix again today. Prognosis still remains very guarded. 08/25/20: Placed back on bipap this am secondary to desaturations and lower mental state than before. Patient has been stable and making improvements but now seems to be headed in the wrong direction. Will monitor very closely as he is a high risk for intubation and bad outcomes. Very very guarded prognosis. Will give lasix today. 08/24/20: Encouraged more proning. Continue BIpap QHS and PRN. unfortunately, no funding, patient would be a good LTACH candidate as he will likely take a long time to wean from HFNC. 08/23/20: No new recs. Proning is metcalf. Will continue to follow. Appreciate ID recs and help. 08/22/20: Bipap PRN and QHS. Will given lasix today. Prone as tolerated. PT continues. Slight improvement. Will continue to follow. 08/21/20: Bipap PRN and QHS. Hold on lasix today. Continue to prone as much as tolerated. Will order PT consult. 08/18/20: Bipap pRN and QHS. More lasix today. Prone as tolerated during the day and sleep prone at night. Continue to try to hold off on intubation. Guarded prognosis. 08/17/20: Continue anticoagulation. Still trying to prevent intubation however will do electively if and when needed to prevent and emergent situation as patient will likely be difficult given neck and body habitus. Continue prone as tolerated. Steroids and remdesivir. 08/16/20: Anticoagulation. Prone as tolerated. Wean bipap as tolerated. Prognosis remains guarded. Trying to prevent intubation given poor outcomes associated with mechanically ventilated obese COVID patients. 08/15/20: Continue therapeutic anticoagulation. No current indication for vascular consult given no evidence of right heart strain on echo. CT would only be beneficial if we thought it would show large enough clot to warrant EKOS and with no evidence of strain, I doubt that will be the case. Continue proning as much as tolerated. Spoke with mother over the phone to update her. Patient also got actemra on yesterday as well. Prognosis remains guarded 08/14/20: Will accept sats in the mid 80's as long as mental state and work of breathing do not change. AGree with lasix therapy. Found to have large DVT on right. Spoke with [facility] and asked them to order stat echo to look for right heart strain, and if present may need to consider echos. Await echo before vascular consult. Prone if possible. Long discussion with mother on phone. Gave her a list of the meds he is on and what our current plan is. Also very candid with her and son at bedside that the mortality rate with COVID is very very high. 08/13/20: Lasix again today. Continue to alternate between HFNC with NRB and bipap. Prognosis is very very guarded. Very very guarded to poor prognosis given CXR appearance, and body habitus, along with rapid decline in self sustaning oxygen levels. Agree with lasix and increase in steroids. Must prone. Very high likelihood for mechanical ventilation which would carry a high mortality for patient. Will continue to follow. No additional IVF's unless indicated. Subjective Date of service: 08/31/20 Principal diagnosis: COVID Interval history: Patient still on vaportherm and NRB. Sats still in the low 90's. Objective Vital Signs - 12hr 08/30/20 08/30/20 08/30/20 21:05 21:31 21:53 Temperature Pulse Rate Pulse Rate [ From Monitor] Respiratory Rate Blood Pressure 111/68 111/68 O2 Sat by Pulse 94 96 96 Oximetry 08/30/20 08/30/20 08/30/20 22:00 22:31 23:00 Temperature Pulse Rate 103 H 96 H 94 H Pulse Rate [ From Monitor] Respiratory 18 14 11 L Rate Blood Pressure 108/60 108/60 102/66 O2 Sat by Pulse 95 95 97 Oximetry 08/30/20 08/30/20 08/31/20 23:31 23:43 00:00 Temperature 100.2 F H Pulse Rate 91 H 90 Pulse Rate [ 88 From Monitor] Respiratory 12 10 L Rate Blood Pressure 102/66 97/45 O2 Sat by Pulse 95 95 92 Oximetry 08/31/20 08/31/20 08/31/20 00:31 00:34 01:01 Temperature Pulse Rate 92 H 99 H Pulse Rate [ From Monitor] Respiratory 14 21 15 Rate Blood Pressure 97/45 131/85 O2 Sat by Pulse 98 96 Oximetry 08/31/20 08/31/20 08/31/20 01:31 02:00 02:31 Temperature Pulse Rate 84 89 85 Pulse Rate [ From Monitor] Respiratory 19 11 L 12 Rate Blood Pressure 131/85 90/43 90/43 O2 Sat by Pulse 96 92 92 Oximetry 08/31/20 08/31/20 08/31/20 03:01 03:31 04:00 Temperature 99.2 F Pulse Rate 93 H 101 H 85 Pulse Rate [ 83 From Monitor] Respiratory 13 15 13 Rate Blood Pressure 90/43 90/43 93/55 O2 Sat by Pulse 78 L 78 L 96 Oximetry 08/31/20 08/31/20 08/31/20 04:31 05:00 05:31 Temperature Pulse Rate 83 84 86 Pulse Rate [ From Monitor] Respiratory 11 L 12 9 L Rate Blood Pressure 93/55 97/51 97/51 O2 Sat by Pulse 94 83 L 94 Oximetry 08/31/20 08/31/20 08/31/20 05:40 06:00 06:31 Temperature Pulse Rate 84 82 Pulse Rate [ From Monitor] Respiratory 10 L 10 L Rate Blood Pressure 89/51 89/51 O2 Sat by Pulse 94 97 94 Oximetry 08/31/20 08/31/20 08/31/20 07:00 07:30 07:52 Temperature Pulse Rate 90 88 Pulse Rate [ From Monitor] Respiratory 17 8 L Rate Blood Pressure 107/53 O2 Sat by Pulse 81 L 89 92 Oximetry 08/31/20 08:00 Temperature Pulse Rate 84 Pulse Rate [ From Monitor] Respiratory 12 Rate Blood Pressure 107/56 O2 Sat by Pulse 88 Oximetry CBC and BMP: 08/26/20 07:11 08/26/20 07:11 ABG, PT/INR, D-dimer: ABG ABG pH 7.313 pH Units (7.350-7.450) L 08/25/20 12:30 POC ABG pCO2 46.9 mmHg (32.0-48.0) 08/14/20 08:23 ABG pCO2 67.2 mm Hg 08/25/20 12:30 POC ABG pO2 50.0 mmHg (83-108) L 08/14/20 08:23 ABG pO2 76.2 mm Hg (80.0-90.0) L 08/25/20 12:30 POC ABG HCO3 31.4 08/14/20 08:23 ABG O2 Saturation 94.9 % (95.0-99.0) L 08/25/20 12:30 PT/INR, D-dimer PT 12.6 Sec. (12.2-14.9) 08/10/20 08:29 INR 0.96 (0.87-1.13) 08/10/20 08:29 D-Dimer 4487.76 ng/mlDDU (0-234) H 08/25/20 16:08 Abnormal lab findings: Abnormal Labs 08/10/20 08/10/20 08/10/20 08:29 08:29 08:29 WBC Lymph % (Auto) [place] % (Auto) 8.4 H Lymph # (Auto) [place] # (Auto) Seg Neutrophils % Seg Neuts % (Manual) Lymphocytes % (Manual) Seg Neutrophils # Seg Neutrophils # Man Lymphocytes # (Manual) Monocytes # (Manual) D-Dimer ABG pH POC ABG pCO2 POC ABG pO2 ABG pO2 ABG HCO3 ABG O2 Saturation ABG Base Excess ABG Hemoglobin ABG Oxyhemoglobin ABG Potassium ABG Glucose VBG pH 7.303 L Oxyhemoglobin Sodium Potassium Chloride Carbon Dioxide BUN Creatinine Glucose 132 H POC Glucose Hemoglobin A1c Ferritin AST Lactate Dehydrogenase C-Reactive Protein Albumin Arterial Blood Glucose Coronavirus (PCR) 08/11/20 08/11/20 08/11/20 05:39 05:39 05:39 WBC Lymph % (Auto) 12.5 L [place] % (Auto) Lymph # (Auto) [place] # (Auto) Seg Neutrophils % 84.2 H Seg Neuts % (Manual) Lymphocytes % (Manual) Seg Neutrophils # 9.1 H Seg Neutrophils # Man Lymphocytes # (Manual) Monocytes # (Manual) D-Dimer ABG pH POC ABG pCO2 POC ABG pO2 ABG pO2 ABG HCO3 ABG O2 Saturation ABG Base Excess ABG Hemoglobin ABG Oxyhemoglobin ABG Potassium ABG Glucose VBG pH Oxyhemoglobin Sodium Potassium Chloride Carbon Dioxide BUN Creatinine Glucose 125 H POC Glucose Hemoglobin A1c 6.1 H Ferritin AST Lactate Dehydrogenase C-Reactive Protein Albumin Arterial Blood Glucose Coronavirus (PCR) 08/11/20 08/11/20 08/11/20 18:58 18:58 18:58 WBC Lymph % (Auto) [place] % (Auto) Lymph # (Auto) [place] # (Auto) Seg Neutrophils % Seg Neuts % (Manual) Lymphocytes % (Manual) Seg Neutrophils # Seg Neutrophils # Man Lymphocytes # (Manual) Monocytes # (Manual) D-Dimer 464.84 H ABG pH POC ABG pCO2 POC ABG pO2 ABG pO2 ABG HCO3 ABG O2 Saturation ABG Base Excess ABG Hemoglobin ABG Oxyhemoglobin ABG Potassium ABG Glucose VBG pH Oxyhemoglobin Sodium Potassium Chloride Carbon Dioxide BUN Creatinine Glucose POC Glucose Hemoglobin A1c Ferritin 528.7 H AST Lactate Dehydrogenase 637 H C-Reactive Protein 11.30 H Albumin Arterial Blood Glucose Coronavirus (PCR) 08/11/20 08/11/20 08/12/20 19:08 Unknown 06:29 WBC 11.2 H Lymph % (Auto) 8.6 L [place] % (Auto) Lymph # (Auto) 1.0 L [place] # (Auto) Seg Neutrophils % 88.3 H Seg Neuts % (Manual) Lymphocytes % (Manual) Seg Neutrophils # 9.8 H Seg Neutrophils # Man Lymphocytes # (Manual) Monocytes # (Manual) D-Dimer ABG pH POC ABG pCO2 POC ABG pO2 ABG pO2 ABG HCO3 ABG O2 Saturation ABG Base Excess ABG Hemoglobin ABG Oxyhemoglobin ABG Potassium ABG Glucose VBG pH Oxyhemoglobin Sodium Potassium Chloride Carbon Dioxide BUN Creatinine Glucose 161 H POC Glucose Hemoglobin A1c Ferritin AST Lactate Dehydrogenase C-Reactive Protein Albumin Arterial Blood Glucose Coronavirus (PCR) Positive A 08/12/20 08/12/20 08/12/20 06:29 06:29 06:29 WBC Lymph % (Auto) [place] % (Auto) Lymph # (Auto) [place] # (Auto) Seg Neutrophils % Seg Neuts % (Manual) Lymphocytes % (Manual) Seg Neutrophils # Seg Neutrophils # Man Lymphocytes # (Manual) Monocytes # (Manual) D-Dimer 830.34 H ABG pH POC ABG pCO2 POC ABG pO2 ABG pO2 ABG HCO3 ABG O2 Saturation ABG Base Excess ABG Hemoglobin ABG Oxyhemoglobin ABG Potassium ABG Glucose VBG pH Oxyhemoglobin Sodium Potassium Chloride Carbon Dioxide 31 H BUN Creatinine Glucose 138 H POC Glucose Hemoglobin A1c Ferritin 572.6 H AST 42 H Lactate Dehydrogenase 706 H C-Reactive Protein 17.30 H Albumin 3.7 L Arterial Blood Glucose Coronavirus (PCR) 08/12/20 08/12/20 08/12/20 13:21 14:55 21:59 WBC Lymph % (Auto) [place] % (Auto) Lymph # (Auto) [place] # (Auto) Seg Neutrophils % Seg Neuts % (Manual) Lymphocytes % (Manual) Seg Neutrophils # Seg Neutrophils # Man Lymphocytes # (Manual) Monocytes # (Manual) D-Dimer ABG pH 7.315 L POC ABG pCO2 57.1 H POC ABG pO2 47.8 L ABG pO2 65.8 L ABG HCO3 31.4 H ABG O2 Saturation 91.7 L ABG Base Excess ABG Hemoglobin 19.3 H ABG Oxyhemoglobin ABG Potassium 4.9 H ABG Glucose 182 H VBG pH Oxyhemoglobin 89.7 L Sodium Potassium Chloride Carbon Dioxide BUN Creatinine Glucose POC Glucose 142 H Hemoglobin A1c Ferritin AST Lactate Dehydrogenase C-Reactive Protein Albumin Arterial Blood Glucose 182 H Coronavirus (PCR) 08/13/20 08/13/20 08/13/20 05:35 05:35 12:11 WBC 12.0 H Lymph % (Auto) 8.1 L [place] % (Auto) Lymph # (Auto) 1.0 L [place] # (Auto) Seg Neutrophils % 88.0 H Seg Neuts % (Manual) Lymphocytes % (Manual) Seg Neutrophils # 10.5 H Seg Neutrophils # Man Lymphocytes # (Manual) Monocytes # (Manual) D-Dimer ABG pH POC ABG pCO2 POC ABG pO2 ABG pO2 ABG HCO3 ABG O2 Saturation ABG Base Excess ABG Hemoglobin ABG Oxyhemoglobin ABG Potassium ABG Glucose VBG pH Oxyhemoglobin Sodium Potassium 5.1 H Chloride Carbon Dioxide 31 H BUN 25 H Creatinine Glucose 174 H POC Glucose 154 H Hemoglobin A1c Ferritin AST 41 H Lactate Dehydrogenase 996 H C-Reactive Protein Albumin 3.8 L Arterial Blood Glucose Coronavirus (PCR) 08/13/20 08/13/20 08/14/20 16:18 23:24 05:21 WBC 14.2 H Lymph % (Auto) 8.2 L [place] % (Auto) Lymph # (Auto) [place] # (Auto) 0.9 H Seg Neutrophils % 85.4 H Seg Neuts % (Manual) Lymphocytes % (Manual) Seg Neutrophils # 12.2 H Seg Neutrophils # Man Lymphocytes # (Manual) Monocytes # (Manual) D-Dimer ABG pH POC ABG pCO2 POC ABG pO2 ABG pO2 ABG HCO3 ABG O2 Saturation ABG Base Excess ABG Hemoglobin ABG Oxyhemoglobin ABG Potassium ABG Glucose VBG pH Oxyhemoglobin Sodium Potassium Chloride Carbon Dioxide BUN Creatinine Glucose POC Glucose 188 H 127 H Hemoglobin A1c Ferritin AST Lactate Dehydrogenase C-Reactive Protein Albumin Arterial Blood Glucose Coronavirus (PCR) 08/14/20 08/14/20 08/14/20 05:21 05:21 05:21 WBC Lymph % (Auto) [place] % (Auto) Lymph # (Auto) [place] # (Auto) Seg Neutrophils % Seg Neuts % (Manual) Lymphocytes % (Manual) Seg Neutrophils # Seg Neutrophils # Man Lymphocytes # (Manual) Monocytes # (Manual) D-Dimer > 22567 H ABG pH POC ABG pCO2 POC ABG pO2 ABG pO2 ABG HCO3 ABG O2 Saturation ABG Base Excess ABG Hemoglobin ABG Oxyhemoglobin ABG Potassium ABG Glucose VBG pH Oxyhemoglobin Sodium Potassium Chloride Carbon Dioxide 32 H 33 H BUN 26 H 26 H Creatinine Glucose 152 H 156 H POC Glucose Hemoglobin A1c Ferritin AST 53 H 54 H Lactate Dehydrogenase 1249 H C-Reactive Protein 9.90 H Albumin 3.7 L 3.7 L Arterial Blood Glucose Coronavirus (PCR) 08/14/20 08/14/20 08/14/20 05:21 05:58 08:23 WBC Lymph % (Auto) [place] % (Auto) Lymph # (Auto) [place] # (Auto) Seg Neutrophils % Seg Neuts % (Manual) Lymphocytes % (Manual) Seg Neutrophils # Seg Neutrophils # Man Lymphocytes # (Manual) Monocytes # (Manual) D-Dimer ABG pH POC ABG pCO2 POC ABG pO2 50.0 L ABG pO2 ABG HCO3 ABG O2 Saturation ABG Base Excess ABG Hemoglobin ABG Oxyhemoglobin 84.0 L ABG Potassium ABG Glucose 141 H VBG pH Oxyhemoglobin Sodium Potassium Chloride Carbon Dioxide BUN Creatinine Glucose POC Glucose 139 H Hemoglobin A1c Ferritin 1198.0 H AST Lactate Dehydrogenase C-Reactive Protein Albumin Arterial Blood Glucose 141 H Coronavirus (PCR) 08/15/20 08/15/20 08/16/20 05:16 05:16 05:26 WBC 13.7 H 17.7 H Lymph % (Auto) 8.2 L [place] % (Auto) Lymph # (Auto) [place] # (Auto) Seg Neutrophils % 86.2 H Seg Neuts % (Manual) 91.0 H 88.0 H Lymphocytes % (Manual) 7.0 L 9.0 L Seg Neutrophils # 15.3 H Seg Neutrophils # Man 12.5 H 15.6 H Lymphocytes # (Manual) 1.0 L Monocytes # (Manual) D-Dimer ABG pH POC ABG pCO2 POC ABG pO2 ABG pO2 ABG HCO3 ABG O2 Saturation ABG Base Excess ABG Hemoglobin ABG Oxyhemoglobin ABG Potassium ABG Glucose VBG pH Oxyhemoglobin Sodium Potassium Chloride Carbon Dioxide 32 H BUN 29 H Creatinine Glucose 150 H POC Glucose Hemoglobin A1c Ferritin AST Lactate Dehydrogenase 1150 H C-Reactive Protein Albumin 3.5 L Arterial Blood Glucose Coronavirus (PCR) 08/16/20 08/16/20 08/16/20 05:26 05:26 05:26 WBC Lymph % (Auto) [place] % (Auto) Lymph # (Auto) [place] # (Auto) Seg Neutrophils % Seg Neuts % (Manual) Lymphocytes % (Manual) Seg Neutrophils # Seg Neutrophils # Man Lymphocytes # (Manual) Monocytes # (Manual) D-Dimer > 84119 H ABG pH POC ABG pCO2 POC ABG pO2 ABG pO2 ABG HCO3 ABG O2 Saturation ABG Base Excess ABG Hemoglobin ABG Oxyhemoglobin ABG Potassium ABG Glucose VBG pH Oxyhemoglobin Sodium Potassium 5.2 H Chloride Carbon Dioxide BUN 25 H Creatinine Glucose 163 H POC Glucose Hemoglobin A1c Ferritin 1013.0 H AST Lactate Dehydrogenase C-Reactive Protein 4.00 H Albumin 3.6 L Arterial Blood Glucose Coronavirus (PCR) 08/17/20 08/17/20 08/17/20 05:06 05:06 07:51 WBC 20.7 H Lymph % (Auto) [place] % (Auto) Lymph # (Auto) [place] # (Auto) Seg Neutrophils % Seg Neuts % (Manual) 86.0 H Lymphocytes % (Manual) 7.0 L Seg Neutrophils # Seg Neutrophils # Man 17.8 H Lymphocytes # (Manual) Monocytes # (Manual) 1.2 H D-Dimer ABG pH POC ABG pCO2 POC ABG pO2 ABG pO2 ABG HCO3 ABG O2 Saturation ABG Base Excess ABG Hemoglobin ABG Oxyhemoglobin ABG Potassium ABG Glucose VBG pH Oxyhemoglobin Sodium Potassium Chloride 96.5 L Carbon Dioxide 31 H BUN 29 H Creatinine Glucose 121 H POC Glucose 110 H Hemoglobin A1c Ferritin AST 46 H Lactate Dehydrogenase C-Reactive Protein Albumin 3.7 L Arterial Blood Glucose Coronavirus (PCR) 08/17/20 08/17/20 08/18/20 11:42 21:45 05:13 WBC Lymph % (Auto) [place] % (Auto) Lymph # (Auto) [place] # (Auto) Seg Neutrophils % Seg Neuts % (Manual) Lymphocytes % (Manual) Seg Neutrophils # Seg Neutrophils # Man Lymphocytes # (Manual) Monocytes # (Manual) D-Dimer > 1000 H ABG pH POC ABG pCO2 POC ABG pO2 ABG pO2 ABG HCO3 ABG O2 Saturation ABG Base Excess ABG Hemoglobin ABG Oxyhemoglobin ABG Potassium ABG Glucose VBG pH Oxyhemoglobin Sodium Potassium Chloride Carbon Dioxide BUN Creatinine Glucose POC Glucose 122 H 143 H Hemoglobin A1c Ferritin AST Lactate Dehydrogenase C-Reactive Protein Albumin Arterial Blood Glucose Coronavirus (PCR) 08/18/20 08/18/20 08/21/20 05:13 05:13 11:17 WBC Lymph % (Auto) [place] % (Auto) Lymph # (Auto) [place] # (Auto) Seg Neutrophils % Seg Neuts % (Manual) Lymphocytes % (Manual) Seg Neutrophils # Seg Neutrophils # Man Lymphocytes # (Manual) Monocytes # (Manual) D-Dimer ABG pH POC ABG pCO2 POC ABG pO2 ABG pO2 ABG HCO3 ABG O2 Saturation ABG Base Excess ABG Hemoglobin ABG Oxyhemoglobin ABG Potassium ABG Glucose VBG pH Oxyhemoglobin Sodium 133 L Potassium Chloride 94.7 L Carbon Dioxide BUN 33 H Creatinine Glucose 110 H POC Glucose 151 H Hemoglobin A1c Ferritin 979.8 H AST 50 H Lactate Dehydrogenase C-Reactive Protein Albumin 3.7 L Arterial Blood Glucose Coronavirus (PCR) 08/21/20 08/21/20 08/21/20 13:39 13:39 15:55 WBC Lymph % (Auto) [place] % (Auto) Lymph # (Auto) [place] # (Auto) Seg Neutrophils % Seg Neuts % (Manual) Lymphocytes % (Manual) Seg Neutrophils # Seg Neutrophils # Man Lymphocytes # (Manual) Monocytes # (Manual) D-Dimer 6731.66 H ABG pH POC ABG pCO2 POC ABG pO2 ABG pO2 ABG HCO3 ABG O2 Saturation ABG Base Excess ABG Hemoglobin ABG Oxyhemoglobin ABG Potassium ABG Glucose VBG pH Oxyhemoglobin Sodium Potassium Chloride Carbon Dioxide BUN Creatinine Glucose POC Glucose Hemoglobin A1c Ferritin 1019.0 H AST Lactate Dehydrogenase 1251 H C-Reactive Protein Albumin Arterial Blood Glucose Coronavirus (PCR) 08/22/20 08/22/20 08/25/20 05:23 05:23 12:30 WBC 24.7 H Lymph % (Auto) [place] % (Auto) Lymph # (Auto) [place] # (Auto) Seg Neutrophils % Seg Neuts % (Manual) Lymphocytes % (Manual) Seg Neutrophils # Seg Neutrophils # Man Lymphocytes # (Manual) Monocytes # (Manual) D-Dimer ABG pH 7.313 L POC ABG pCO2 POC ABG pO2 ABG pO2 76.2 L ABG HCO3 33.3 H ABG O2 Saturation 94.9 L ABG Base Excess 5.0 H ABG Hemoglobin 13.4 L ABG Oxyhemoglobin ABG Potassium ABG Glucose VBG pH Oxyhemoglobin 93.0 L Sodium 136 L Potassium Chloride 96.3 L Carbon Dioxide BUN 24 H Creatinine 0.7 L Glucose 115 H POC Glucose Hemoglobin A1c Ferritin AST Lactate Dehydrogenase C-Reactive Protein Albumin Arterial Blood Glucose Coronavirus (PCR) 08/25/20 08/25/20 08/25/20 16:08 16:08 16:08 WBC Lymph % (Auto) [place] % (Auto) Lymph # (Auto) [place] # (Auto) Seg Neutrophils % Seg Neuts % (Manual) Lymphocytes % (Manual) Seg Neutrophils # Seg Neutrophils # Man Lymphocytes # (Manual) Monocytes # (Manual) D-Dimer 4487.76 H ABG pH POC ABG pCO2 POC ABG pO2 ABG pO2 ABG HCO3 ABG O2 Saturation ABG Base Excess ABG Hemoglobin ABG Oxyhemoglobin ABG Potassium ABG Glucose VBG pH Oxyhemoglobin Sodium Potassium Chloride Carbon Dioxide BUN Creatinine Glucose POC Glucose Hemoglobin A1c Ferritin 961.4 H AST Lactate Dehydrogenase 959 H C-Reactive Protein Albumin Arterial Blood Glucose Coronavirus (PCR) 08/26/20 08/26/20 07:11 07:11 WBC Lymph % (Auto) [place] % (Auto) 9.8 H Lymph # (Auto) [place] # (Auto) 1.0 H Seg Neutrophils % Seg Neuts % (Manual) Lymphocytes % (Manual) Seg Neutrophils # Seg Neutrophils # Man Lymphocytes # (Manual) Monocytes # (Manual) D-Dimer ABG pH POC ABG pCO2 POC ABG pO2 ABG pO2 ABG HCO3 ABG O2 Saturation ABG Base Excess ABG Hemoglobin ABG Oxyhemoglobin ABG Potassium ABG Glucose VBG pH Oxyhemoglobin Sodium 135 L Potassium Chloride 95.7 L Carbon Dioxide 33 H BUN Creatinine Glucose POC Glucose Hemoglobin A1c Ferritin AST Lactate Dehydrogenase C-Reactive Protein Albumin Arterial Blood Glucose Coronavirus (PCR)
[2020-08-31] MEDS: FAMOTIDINE 20 MG TAB PO SCH ×2 (10:00→22:59)
[2020-08-31] MEDS: methylPREDNISolone Sod Succinate 40 MG/1 ML INJ IV SCH ×2 (10:00→22:57)
[2020-08-31] MEDS: ZINC SULFATE 220 MG CAP PO SCH (10:00)
[2020-08-31] MEDS: APIXABAN 5 MG TAB PO SCH ×2 (10:00→22:58)
[2020-08-31] MEDS: ASCORBIC ACID 500 MG TAB PO SCH ×2 (10:00→22:59)
--- NOTE | 2020-08-31 11:08 | Progress Note ---
Assessment and Plan Cultures: Blood culture 08/10/2020 no growth SARS CoV2 PCR positive 08/10/2020 urine culture: No growth Assessment: 30 years old male with history of morbid obesity, admitted on 08/10/2020 secondary to 3-day history of intermittent frontal headache: #Leukocytosis: resolved, likely due to steroids/severe hypoxia, repeat procalcitonin level is low #Severe COVID19 pneumonia: On steroids, completed remdesivir. S/P actemra on 08/14/2020. Completed empiric abx course. Procal is low, additional abx not needed. CXR not significant change. Markers trending down #Acute hypoxemic respiratory failure: severe, on nonrebreather #Acute right leg DVT, very high d-dimer. On anticoagulation. #LONNY: Resolved #Morbid obesity: Associated with worse outcomes Recommendations: -Completed steroids -S/P remdesivir, actemra -Monitor inflammatory markers - ferritin, Ddimer, CRP, LDH -continue anticoagulation for DVT/Eliquis -prone positioning whenever possible -pulm on board Calvin Humphreys MD [facility] O: [phone] F: [phone] Subjective Date of service: 08/31/20 Principal diagnosis: COVID Interval history: Afebrile, normal white count. Currently on high flow nasal cannula. Objective - Exam Narrative Exam: Physical exam deferred due to PPE conservation strategy. Please refer to primary team's note. - Constitutional Vitals: Vital Signs Temp Pulse Resp BP Pulse Ox 98.5 F 84 12 107/56 88 08/31/20 08:00 08/31/20 08:00 08/31/20 08:00 08/31/20 08:00 08/31/20 08:00 Temperature -Last 24 Hours Temperature 98.5 F Temperature 99.2 F Temperature 100.2 F Temperature 98.4 F Temperature 98.1 F - Labs CBC & Chem 7: 08/26/20 07:11 08/26/20 07:11
[2020-08-31 12:04] LABS: Blood Urea Nitrogen 11 mg/dL (9-20); Calcium 9.3 mg/dL (8.4-10.2); Hemolysis Index 104
[2020-08-31 12:19] LABS: BUN/Creatinine Ratio 18
--- NOTE | 2020-08-31 21:21 | Progress Note ---
Assessment and Plan Assessment and plan: --COVID-19 Pneumonia Continue antibiotics Continue steroids total 10 days s/p Remdesivir, s/p tocilizumab Oxygen supplementation with high flow oxygen/ BiPAP/nonrebreather as needed Trend inflammatory markers Prone positioning strongly advised ID and pulmonology following --Acute hypoxic respiratory failure secondary to COVID-19 PNA Pt remains on high flow oxygen 40/100/93 intermittent 100% nonrebreather Patient unstable to go for CTA chest to evaluate the cause of persistent hypoxia pulmonary following, Home O2 evaluation at discharge --Right lower extremity DVT on LE Doppler study LE Doppler LE Doppler shows RLE DVT. Echocardiogram shows no right heart strain. On Eliquis per protocol --Sinus bradycardia /resolved Likely from remdesivir Heart rate in 60s and 70s today TSH wnl --Morbid obesity; BMI 41.9 Diet and exercise advised Patient needs outpatient bariatric surgical/medical weight reduction consult when medically stable --Positive DVT ;-on Eliquis Continues to be on high flow oxygen, Wean as tolerated We will closely monitor the patient and adjust management as needed Merchandising Consultant recommendations noted and appreciated Plan of care reviewed with the patient and his nurse and the case management The high probability of a clinically significant, sudden or life threatening deterioration of the [pulmonary,Vascular,ID,CVS and hematology] system(s) required my full and direct attention, intervention and personal management. The aggregate critical care time was [32] minutes. This time is in addition to time spent performing reported procedures but includes the following: [x] Data Review and interpretation [x] Patient assessment and monitoring of vital signs [x] Documentation [x] Medication orders and management Brief history 30-year-old male with morbid obesity weighing about 310 pounds was admitted through emergency room with frontal headache for 3 days. Patient was noted to be hypoxic with shortness of breath and cough O2 sats room air were in the 80s, requiring high flow oxygen, BiPAP, patient was admitted to IMCU Patient was PUI, placed in isolation, gillespie PCR test was positive, evaluated by ID and pulmonary, medications optimized and patient was being managed per COVID-19 protocols and guidelines. Patient continues to depend on high flow oxygen and BiPAP. Today patient continues to be on very high flow oxygen of 40 L/100% FiO2/94 to 96% O2 sats Patient advised bariatric surgical consultation upon discharge for weight reduction program Work-up in the emergency room showed bilateral patchy opacities in the lungs and hypoxia-hence he was admitted for bilateral pneumonia and possible Covid pneumonia. No significant past medical history Daily Hospital course: 08/11. Patient seen examined at bedside this morning. Has no complaints. Febrile this a.m.-103 Fahrenheit. On Tylenol as needed. COVID-19 test ordered. Remains on steroids. ID consult if COVID-19 is positive. 08/12. His COVID-19 test is positive. He was started on remdesivir last night. Oxygen requirement increased overnight. Inflammatory markers increasing. Repeat chest xray shows worsening infiltrates. Ordered BNP. Lasix 40mg IV ordered. Increased dexamethasone to 6mg BID. Pulmonology consulted. Will place on continuous pulse oximetry. Incentive spirometer ordered. Advised prone positioning. 08/13. Not feeling better. Seen on BIPAP. Remains on steroids, remdesivir and antibiotics. Vitals stable. 08/14. Still maintaining sats even on BiPAP. Lasix 40 mg IV ordered. D-dimer this a.m. is more than 10,000. Lovenox increased to 150 mg twice daily. Ultrasound lower extremities Doppler showed a right DVT. Echocardiogram ordered to rule out right heart strain. Pending results, patient may need vascular surgery evaluation for possible thrombectomy. Continue on BiPAP and continue to monitor respiratory status closely. 08/15. Sats better this AM. Received toculizumab yesterday. Advised him to prone as much as possible. Echo shows normal EF with no right heart strain. I/Os reviewed. He is diuresing well. Renal function is stable. Will give additional lasix today. Pulmonology following 08/16. Remains on remdesivir. Still on BIPAP. Will give lasix 20mg IV. HR is low - likley effect of remdesivir. Will continue to monitor closely 08/17. Sats in the 90's this AM. Still on BIPAP. /2; patient remains hypoxic requiring BiPAP and 100% nonrebreather intermittently 08/19; Continue supportive care, wean oxygen as tolerated. Encouraged PRONE positioning if able to tolerate. 08/20:Remains on BiPAP. continue lasix, still not proninig, encouraged to prone, FIO2 down to 90% with sat of 96%. Continue care, prognosis still guarded. 08/21: Patient down on high flow. Continue to encourage proning position. Still with guarded prognosis. Elevation in WBC noted to 20 this could be secondary to steroids I will continue to monitor. No fever noted at this time. Patient's respiratory status has stabilized on the high flow with no shallow breathing noted Discussed with the nurse at bedside 08/22; DC Lovenox therapeutic dose, start Eliquis per protocol to treat lower extremity DVT. 08/23; patient remains on high flow oxygen 40 L/100 FiO2/94% O2 sats, intermittent BiPAP 08/24; patient remains on high flow oxygen and BiPAP, consultants recommendations noted and appreciated 08/25; patient continues to be hypoxemic, on high flow oxygen 40L/ 100 FiO2/95 O2 sats and on intermittent BiPAP 08/26; patient continues to be on high flow oxygen, unable to wean follow pulmonary recommendations 08/27; patient remains on high flow oxygen 40 L/100% FiO2/95% O2 sats with intermittent BiPAP treatment 08/28; patient remains on high flow oxygen, strongly advised to prone as tolerated, consults and recommendations noted and appreciated 08/29; closely monitor the patient and adjust management as needed, wean oxygen as tolerated Home oxygen evaluation, DC planning when medically stable 08/30; clinically no change, remains on high flow oxygen, wean as tolerated Consultants recommendations noted . 08/31; patient remains on high flow oxygen 40/100/93 History Interval history: I have seen and examined the patient at the bedside this morning Patient's chart and medications reviewed Strict isolation precautions, PPE protocols followed per COVID-19 guidelines Patient remains on high flow oxygen, 40 L/100% FiO2/93 O2 sats In mild distress, Anxious to go home Vital signs noted Hospitalist Physical - Constitutional Vitals: Temp Pulse Resp BP Pulse Ox 98.8 F 99 H 14 109/52 91 08/31/20 20:00 08/31/20 18:00 08/31/20 18:00 08/31/20 18:00 08/31/20 18:00 General appearance: Present: no acute distress, well-nourished, obese (Morbidly obese) - EENT Eyes: Present: PERRL, EOM intact - Neck Neck: Present: supple, normal ROM - Respiratory Respiratory effort: normal Respiratory: bilateral: diminished, rhonchi, negative: rales, wheezing - Cardiovascular Rhythm: regular Heart Sounds: Present: S1 & S2 - Extremities Extremities: no ischemia, No edema - Abdominal General gastrointestinal: soft, non-tender, non-distended - Integumentary Integumentary: Present: clear, warm - Psychiatric Psychiatric: appropriate mood/affect, cooperative - Neurologic Neurologic: moves all extremities Results - Labs CBC & Chem 7: 08/26/20 07:11 08/31/20 10:56 Labs: Laboratory Last Values WBC 10.4 K/mm3 (4.5-11.0) 08/26/20 07:11 RBC 4.37 M/mm3 (3.65-5.03) 08/26/20 07:11 Hgb 13.2 gm/dl (11.8-15.2) 08/26/20 07:11 Hct 39.2 % (35.5-45.6) 08/26/20 07:11 MCV 90 fl (84-94) 08/26/20 07:11 MCH 30 pg (28-32) 08/26/20 07:11 MCHC 34 % (32-34) 08/26/20 07:11 RDW 14.2 % (13.2-15.2) 08/26/20 07:11 Plt Count 259 K/mm3 (140-440) 08/26/20 07:11 Lymph % (Auto) 20.2 % (13.4-35.0) 08/26/20 07:11 [place] % (Auto) 9.8 % (0.0-7.3) H 08/26/20 07:11 Eos % (Auto) 4.2 % (0.0-4.3) 08/26/20 07:11 Baso % (Auto) 0.5 % (0.0-1.8) 08/26/20 07:11 Lymph # (Auto) 2.1 K/mm3 (1.2-5.4) 08/26/20 07:11 [place] # (Auto) 1.0 K/mm3 (0.0-0.8) H 08/26/20 07:11 Eos # (Auto) 0.4 K/mm3 (0.0-0.4) 08/26/20 07:11 Baso # (Auto) 0.1 K/mm3 (0.0-0.1) 08/26/20 07:11 Add Manual Diff Complete 08/17/20 05:06 Total Counted 100 08/17/20 05:06 Seg Neutrophils % 65.3 % (40.0-70.0) 08/26/20 07:11 Seg Neuts % (Manual) 86.0 % (40.0-70.0) H 08/17/20 05:06 Lymphocytes % (Manual) 7.0 % (13.4-35.0) L 08/17/20 05:06 Monocytes % (Manual) 6.0 % (0.0-7.3) 08/17/20 05:06 Eosinophils % (Manual) 1.0 % (0.0-4.3) 08/17/20 05:06 Metamyelocytes % 2.0 % 08/15/20 05:16 Nucleated RBC % Not Reportable 08/17/20 05:06 Seg Neutrophils # 6.8 K/mm3 (1.8-7.7) 08/26/20 07:11 Seg Neutrophils # Man 17.8 K/mm3 (1.8-7.7) H 08/17/20 05:06 Band Neutrophils # 0.0 K/mm3 08/17/20 05:06 Lymphocytes # (Manual) 1.4 K/mm3 (1.2-5.4) 08/17/20 05:06 Abs React Lymphs (Man) 0.0 K/mm3 08/17/20 05:06 Monocytes # (Manual) 1.2 K/mm3 (0.0-0.8) H 08/17/20 05:06 Eosinophils # (Manual) 0.2 K/mm3 (0.0-0.4) 08/17/20 05:06 Basophils # (Manual) 0.0 K/mm3 (0.0-0.1) 08/17/20 05:06 Metamyelocytes # 0.0 K/mm3 08/17/20 05:06 Myelocytes # 0.0 K/mm3 08/17/20 05:06 Promyelocytes # 0.0 K/mm3 08/17/20 05:06 Blast Cells # 0.0 K/mm3 08/17/20 05:06 WBC Morphology Not Reportable 08/17/20 05:06 Hypersegmented Neuts Not Reportable 08/17/20 05:06 Hyposegmented Neuts Not Reportable 08/17/20 05:06 Hypogranular Neuts Not Reportable 08/17/20 05:06 Smudge Cells Not Reportable 08/17/20 05:06 Toxic Granulation Not Reportable 08/17/20 05:06 Toxic Vacuolation Not Reportable 08/17/20 05:06 Dohle Bodies Not Reportable 08/17/20 05:06 Pelger-Huet Anomaly Not Reportable 08/17/20 05:06 Juan Luis Rods Not Reportable 08/17/20 05:06 Platelet Estimate Consistent w auto 08/17/20 05:06 Clumped Platelets Not Reportable 08/17/20 05:06 Plt Clumps, EDTA Not Reportable 08/17/20 05:06 Large Platelets Not Reportable 08/17/20 05:06 Giant Platelets Not Reportable 08/17/20 05:06 Platelet Satelliting Not Reportable 08/17/20 05:06 Plt Morphology Comment Not Reportable 08/17/20 05:06 RBC Morphology Not Reportable 08/17/20 05:06 Dimorphic RBCs Not Reportable 08/17/20 05:06 Polychromasia Not Reportable 08/17/20 05:06 Hypochromasia Not Reportable 08/17/20 05:06 Poikilocytosis Not Reportable 08/17/20 05:06 Anisocytosis Few 08/17/20 05:06 Microcytosis Not Reportable 08/17/20 05:06 Macrocytosis Not Reportable 08/17/20 05:06 Spherocytes Not Reportable 08/17/20 05:06 Pappenheimer Bodies Not Reportable 08/17/20 05:06 Sickle Cells Not Reportable 08/17/20 05:06 Target Cells Not Reportable 08/17/20 05:06 Tear Drop Cells Not Reportable 08/17/20 05:06 Ovalocytes Not Reportable 08/17/20 05:06 Helmet Cells Not Reportable 08/17/20 05:06 Patterson-Willards Bodies Not Reportable 08/17/20 05:06 [place] Rings Not Reportable 08/17/20 05:06 Castana Cells Not Reportable 08/17/20 05:06 Bite Cells Not Reportable 08/17/20 05:06 Crenated Cell Not Reportable 08/17/20 05:06 Elliptocytes Not Reportable 08/17/20 05:06 Acanthocytes (Spur) Not Reportable 08/17/20 05:06 Rouleaux Not Reportable 08/17/20 05:06 Hemoglobin C Crystals Not Reportable 08/17/20 05:06 Schistocytes Not Reportable 08/17/20 05:06 Malaria parasites Not Reportable 08/17/20 05:06 Asif Bodies Not Reportable 08/17/20 05:06 Hem Pathologist Commnt No 08/17/20 05:06 PT 12.6 Sec. (12.2-14.9) 08/10/20 08:29 INR 0.96 (0.87-1.13) 08/10/20 08:29 D-Dimer 4487.76 ng/mlDDU (0-234) H 08/25/20 16:08 ABG pH 7.313 pH Units (7.350-7.450) L 08/25/20 12:30 POC ABG pCO2 46.9 mmHg (32.0-48.0) 08/14/20 08:23 ABG pCO2 67.2 mm Hg 08/25/20 12:30 POC ABG pO2 50.0 mmHg (83-108) L 08/14/20 08:23 ABG pO2 76.2 mm Hg (80.0-90.0) L 08/25/20 12:30 POC ABG HCO3 31.4 08/14/20 08:23 ABG HCO3 33.3 mmol/L (20.0-26.0) H 08/25/20 12:30 ABG O2 Saturation 94.9 % (95.0-99.0) L 08/25/20 12:30 ABG O2 Content 17.5 (0.0-44) 08/25/20 12:30 POC ABG Base Excess 6.3 08/14/20 08:23 ABG Base Excess 5.0 mmol/L (-2.0-3.0) H 08/25/20 12:30 ABG Hemoglobin 13.4 gm/dl (14.0-18.0) L 08/25/20 12:30 ABG Oxyhemoglobin 84.0 (94-98) L 08/14/20 08:23 ABG Carboxyhemoglobin 1.5 % (0.0-5.0) 08/25/20 12:30 ABG Methemoglobin 0.5 % (0.0-1.5) 08/25/20 12:30 ABG Sodium 139.2 mmol/L (136.0-145.0) 08/14/20 08:23 ABG Potassium 4.5 mmol/L (3.40-4.50) 08/14/20 08:23 ABG Chloride 99.0 mmol/L (98-107) 08/14/20 08:23 ABG Glucose 141 mg/dL (65-95) H 08/14/20 08:23 VBG pH 7.303 (7.320-7.420) L 08/10/20 08:29 Oxyhemoglobin 93.0 % (95.0-99.0) L 08/25/20 12:30 Carboxyhemoglobin 0.9 (0.5-1.5) 08/14/20 08:23 FiO2 80 % 08/25/20 12:30 FiO2 % 100 08/14/20 08:23 Sodium 138 mmol/L (137-145) 08/31/20 10:56 Potassium 4.8 mmol/L (3.6-5.0) 08/31/20 10:56 Chloride 97.4 mmol/L (98-107) L 08/31/20 10:56 Carbon Dioxide 34 mmol/L (22-30) H 08/31/20 10:56 Anion Gap 11 mmol/L 08/31/20 10:56 BUN 11 mg/dL (9-20) 08/31/20 10:56 Creatinine 0.6 mg/dL (0.8-1.3) L 08/31/20 10:56 Estimated GFR > 60 ml/min 08/31/20 10:56 BUN/Creatinine Ratio 18 % 08/31/20 10:56 Glucose 109 mg/dL (75-100) H 08/31/20 10:56 POC Glucose 151 mg/dL (70-105) H 08/21/20 11:17 Hemoglobin A1c 6.1 % (4-6) H 08/11/20 05:39 Lactic Acid 0.80 mmol/L (0.7-2.0) 08/10/20 11:18 Calcium 9.3 mg/dL (8.4-10.2) 08/31/20 10:56 Magnesium 2.40 mg/dL (1.7-2.3) H 08/31/20 10:56 Ferritin 961.4 ng/mL (30.0-300.0) H 08/25/20 16:08 Total Bilirubin 0.50 mg/dL (0.1-1.2) 08/18/20 05:13 AST 50 units/L (5-40) H 08/18/20 05:13 ALT 50 units/L (7-56) 08/18/20 05:13 Alkaline Phosphatase 103 units/L (35-129) 08/18/20 05:13 Lactate Dehydrogenase 959 units/L (91-180) H 08/25/20 16:08 C-Reactive Protein 0.10 mg/dL (0.00-1.30) 08/25/20 16:08 NT-Pro-B Natriuret Pep 36.40 pg/mL (0-450) 08/12/20 06:29 Total Protein 6.9 g/dL (6.3-8.2) 08/18/20 05:13 Albumin 3.7 g/dL (3.9-5) L 08/18/20 05:13 Albumin/Globulin Ratio 1.1 % 08/18/20 05:13 Procalcitonin 0.08 ng/mL (<0.15) 08/21/20 13:39 TSH 1.830 mlU/mL (0.270-4.200) 08/17/20 05:06 Free T4 1.01 ng/dL (0.76-1.46) 08/17/20 05:06 Arterial Blood Glucose 141 mg/dL (65-95) H 08/14/20 08:23 Arterial Blood Ionized Calcium 4.8 mg/dL (4.6-5.3) 08/14/20 08:23 Urine Color Yellow (Yellow) 08/10/20 Unknown Urine Turbidity Cloudy (Clear) 08/10/20 Unknown Urine pH 5.0 (5.0-7.0) 08/10/20 Unknown Ur Specific [place] 1.025 (1.003-1.030) 08/10/20 Unknown Urine Protein 30 mg/dl mg/dL (Negative) 08/10/20 Unknown Urine Glucose (UA) 150 mg/dL (Negative) 08/10/20 Unknown Urine Ketones Negative mg/dL (Negative) 08/10/20 Unknown Urine Blood Negative (Negative) 08/10/20 Unknown Urine Nitrite Negative (Negative) 08/10/20 Unknown Urine Bilirubin Negative (Negative) 08/10/20 Unknown Urine Urobilinogen < 2.0 mg/dL (<2.0) 08/10/20 Unknown Ur Leukocyte Esterase Negative (Negative) 08/10/20 Unknown Urine WBC (Auto) 5.0 /HPF (0.0-6.0) 08/10/20 Unknown Urine RBC (Auto) 2.0 /HPF (0.0-6.0) 08/10/20 Unknown U Epithel Cells (Auto) 1.0 /HPF (0-13.0) 08/10/20 Unknown Urine Bacteria (Auto) 1+ /HPF (Negative) 08/10/20 Unknown Urine Mucus 3+ /HPF 08/10/20 Unknown Coronavirus (PCR) Positive (Negative) A 08/11/20 Unknown Gaytan/IV: Voiding Method Urinal Active Medications - Current Medications Current Medications: Generic Name Dose Route Start Last Admin Trade Name Freq PRN Reason Stop Dose Admin Acetaminophen 650 mg 08/10/20 23:48 08/31/20 00:34 Acetaminophen 325 Mg Tab PO 650 mg Q4H PRN Administration Pain MILD(1-3)/Fever >100.5/MARTINEZ Apixaban 5 mg 08/29/20 22:00 08/31/20 10:00 Apixaban 5 Mg Tab PO 5 mg Q12HR MELANIE Administration Protocol Artificial Tears 2 drops 08/16/20 13:44 Hypromellose 0.5% Ophth Soln 15 Ml OU Q4H PRN Dry Eye(s) Ascorbic Acid 500 mg 08/12/20 10:00 08/31/20 10:00 Ascorbic Acid 500 Mg Tab PO 500 mg BID MELANIE Administration Famotidine 20 mg 08/27/20 12:00 08/31/20 10:00 Famotidine 20 Mg Tab PO 20 mg BID MELANIE Administration Methylprednisolone Sodium Succinate 40 mg 08/31/20 10:00 08/31/20 10:00 Methylprednisolone Sod Succinate 40 Mg/1 Ml Inj IV 40 mg Q8HR MELANIE Administration Metoclopramide HCl 10 mg 08/10/20 23:48 Metoclopramide 10 Mg/2 Ml Inj IV Q6H PRN Nausea And Vomiting Morphine Sulfate 2 mg 08/10/20 23:48 08/25/20 10:20 Morphine 2 Mg/1 Ml Inj IV 2 mg Q4H PRN Administration Pain, Moderate (4-6) Ondansetron HCl 4 mg 08/10/20 23:48 Ondansetron 4 Mg/2 Ml Inj IV Q8H PRN Nausea And Vomiting Oxycodone/Acetaminophen 1 tab 08/10/20 23:48 08/25/20 21:08 Oxycodone /Acetaminophen 5-325mg Tab PO 1 tab Q6H PRN Administration Pain, Moderate (4-6) Sodium Chloride 10 ml 08/11/20 10:00 08/31/20 10:00 Sodium Chloride 0.9% 10 Ml Flush Syringe IV 10 ml BID MELANIE Administration Sodium Chloride 10 ml 08/10/20 23:48 08/12/20 21:04 Sodium Chloride 0.9% 10 Ml Flush Syringe IV 10 ml PRN PRN Administration LINE FLUSH Zinc Sulfate 220 mg 08/12/20 12:00 08/31/20 10:00 Zinc Sulfate 220 Mg Cap PO 220 mg QDAY MELANIE Administration Nutrition/Malnutrition Assess - Dietary Evaluation Nutrition/Malnutrition Findings: Nutrition Notes Start: 08/17/20 10:49 Freq: Status: Active Protocol: Document 08/28/20 15:35 CW (Rec: 08/28/20 15:39 CW [id number]) Nutrition Notes Initial or Follow up Reassessment Other Pertinent Diagnosis COVID-19 (+), pneu, RLE DVT, sinus bradycardia Current Diet Regular Labs/Tests 08/26/2020 Na 135 Pertinent Medications lasix Height 5 ft 11 in Weight 134 kg [place] Body Weight (kg) 78.18 BMI 41.2 Weight change and time frame weight change likely related to diuertics usage Weight Status Morbidly Obese Subjective/Other Information F/U for intakes. Pt has been eating 50% of meals. Food preferences updated and information relayed to kitchen . Percent of energy/protein needs met: 78%/86% Burn Absent Trauma Absent Cultural/Ethnic/Orthodoxy Belief Requests salads with chicken Current % PO Fair (50-74%) Minimum of two criteria No #1 Nutrition Diagnosis Inadequate oral intake Diagnosis Progress(for reassessment Continues documentation) Is patient on ventilator? No Is Patient Ambulatory and/or Out of Bed No REE-([facility]-confined to bed) 2793.732 Kcal/Kg value to use for calculation 14 Approximate Energy Requirements Using 1876 kcal/Kg Calculation Used for Recommendations Kcal/kg Additional Notes Pro needs 0.8-1g/kg adjBW: 90- 113g/day Fluid needs 1ml/kcal Nutrition Intervention Change Diet Order: Continue current diet as tolerated Add Supplement/Snack (indicate name/kcal Ensure High Protein BID /protein ) Provides kCal: 320 Provides Protein (gm) 32 Goal #1 PO tolerance Goal #2 PO intake of meals plus ONS to meet at least 75% energy and pro needs Anticipated Discharge Needs: Regular Diet Follow-Up By: 09/01/20 Additional Comments F/U for intakes and ONS tolerance
[2020-09-01] MEDS: methylPREDNISolone Sod Succinate 40 MG/1 ML INJ IV SCH ×4 (05:41→22:14)
[2020-09-01] MEDS: APIXABAN 5 MG TAB PO SCH ×2 (09:57→22:13)
[2020-09-01] MEDS: ASCORBIC ACID 500 MG TAB PO SCH ×2 (09:57→22:14)
[2020-09-01] MEDS: FAMOTIDINE 20 MG TAB PO SCH ×2 (09:57→22:13)
[2020-09-01] MEDS: ZINC SULFATE 220 MG CAP PO SCH (09:57)
--- NOTE | 2020-09-01 12:08 | Progress Note ---
Assessment and Plan 30 y/o morbidly obese male with acute respiratory failure secondary to COVID 19 pneumonia. now found to have DVT in lower ext. 09/01/20: Continue steroids at least through the weekend. Continue to prone as much as tolerated. Lasix 40mg IV again today. BIpap QHS. Very very guarded prognosis. He has been hanging out in the high 80's low 90's for weeks now. 08/31/20: Going to place patient back on steroids. Will do solumedrol 40q8 at least for the next 48-72 hours to see if this helps. Checked stat labs this morning to evaluate renal function and potassium levels before anymore lasix is given. Continue to prone as tolerated and bipap QHS. Prognosis remains guarded. 08/30/20: Proning is a must. Will give lasix 40 today. Continue anticoagulation. Prognosis remians very very guarded. Avoid intubation at all costs. 08/29/20: Continue to prone as tolerated during the day and sleep prone at night. HOld on lasix today. Continue anticoagulation. Guarded prognosis. 08/28/20: Continue to prone as tolerated. Today will give lasix 40 to see if this helps. Will discuss with cardiology about echo. Clinically patient looks the same and not in distress. If PE is present, likely not large enough for EKOS. Given his high O2 requirement, prefer not to try CTA at this time as I feel the risks outweigh the benefits. 08/27/20: Long discussion with patient again at bedside today. May need to consider repeat ECHO to look for right heart strain. We know he had VTE in the lower ext but never had to oppurtunity to truly rule him out for PE. Cousin who is an [employer]PRENTICE in outpatient setting at [place] asked some questions so I spoke with her via the phone. She is going to help encourage proning. Will give more lasix today. Very very guarded prognosis. 08/26/20: Pulm status is more stable today compared to yesterday. Continue bipap PRN and QHS. Will give IV lasix again today. Prognosis still remains very guarded. 08/25/20: Placed back on bipap this am secondary to desaturations and lower mental state than before. Patient has been stable and making improvements but now seems to be headed in the wrong direction. Will monitor very closely as he is a high risk for intubation and bad outcomes. Very very guarded prognosis. Will give lasix today. 08/24/20: Encouraged more proning. Continue BIpap QHS and PRN. unfortunately, no funding, patient would be a good LTACH candidate as he will likely take a long time to wean from HFNC. 08/23/20: No new recs. Proning is metcalf. Will continue to follow. Appreciate ID recs and help. 08/22/20: Bipap PRN and QHS. Will given lasix today. Prone as tolerated. PT c ontinues. Slight improvement. Will continue to follow. 08/21/20: Bipap PRN and QHS. Hold on lasix today. Continue to prone as much as tolerated. Will order PT consult. 08/18/20: Bipap pRN and QHS. More lasix today. Prone as tolerated during the day and sleep prone at night. Continue to try to hold off on intubation. Guarded prognosis. 08/17/20: Continue anticoagulation. Still trying to prevent intubation however will do electively if and when needed to prevent and emergent situation as patient will likely be difficult given neck and body habitus. Continue prone as tolerated. Steroids and remdesivir. 08/16/20: Anticoagulation. Prone as tolerated. Wean bipap as tolerated. Progno sis remains guarded. Trying to prevent intubation given poor outcomes associated with mechanically ventilated obese COVID patients. 08/15/20: Continue therapeutic anticoagulation. No current indication for vascular consult given no evidence of right heart strain on echo. CT would only be beneficial if we thought it would show large enough clot to warrant EKOS and with no evidence of strain, I doubt that will be the case. Continue proning as much as tolerated. Spoke with mother over the phone to update her. Patient also got actemra on yesterday as well. Prognosis remains guarded 08/14/20: Will accept sats in the mid 80's as long as mental state and work of breathing do not change. AGree with lasix therapy. Found to have large DVT on right. Spoke with [facility] and asked them to order stat echo to look for right heart strain, and if present may need to consider echos. Await echo before vascular consult. Prone if possible. Long discussion with mother on phone. Gave her a list of the meds he is on and what our current plan is. Also very candid with her and son at bedside that the mortality rate with COVID is very very high. 08/13/20: Lasix again today. Continue to alternate between HFNC with NRB and bipap. Prognosis is very very guarded. Very very guarded to poor prognosis given CXR appearance, and body habitus, along with rapid decline in self sustaning oxygen levels. Agree with lasix and increase in steroids. Must prone. Very high likelihood for mechanical v entilation which would carry a high mortality for patient. Will continue to follow. No additional IVF's unless indicated. Subjective Date of service: 09/01/20 Principal diagnosis: COVID Interval history: No acute events. Still on HFNC and NRB. Objective Vital Signs - 12hr 09/01/20 09/01/20 09/01/20 01:00 02:00 03:00 Temperature Pulse Rate 84 82 79 Pulse Rate [ From Monitor] Respiratory 10 L 10 L 8 L Rate Blood Pressure 115/53 104/60 130/74 O2 Sat by Pulse 91 Oximetry 09/01/20 09/01/20 09/01/20 04:00 05:00 06:00 Temperature 98.8 F Pulse Rate 80 80 93 H Pulse Rate [ 85 From Monitor] Respiratory 10 L 9 L 16 Rate Blood Pressure 130/74 108/53 113/53 O2 Sat by Pulse 93 98 Oximetry 09/01/20 09/01/20 07:52 08:00 Temperature 98.9 F Pulse Rate Pulse Rate [ From Monitor] Respiratory Rate Blood Pressure O2 Sat by Pulse 97 Oximetry CBC and BMP: 08/26/20 07:11 08/31/20 10:56 ABG, PT/INR, D-dimer: ABG ABG pH 7.313 pH Units (7.350-7.450) L 08/25/20 12:30 POC ABG pCO2 46.9 mmHg (32.0-48.0) 08/14/20 08:23 ABG pCO2 67.2 mm Hg 08/25/20 12:30 POC ABG pO2 50.0 mmHg (83-108) L 08/14/20 08:23 ABG pO2 76.2 mm Hg (80.0-90.0) L 08/25/20 12:30 POC ABG HCO3 31.4 08/14/20 08:23 ABG O2 Saturation 94.9 % (95.0-99.0) L 08/25/20 12:30 PT/INR, D-dimer PT 12.6 Sec. (12.2-14.9) 08/10/20 08:29 INR 0.96 (0.87-1.13) 08/10/20 08:29 D-Dimer 4487.76 ng/mlDDU (0-234) H 08/25/20 16:08 Abnormal lab findings: Abnormal Labs 08/10/20 08/10/20 08/10/20 08:29 08:29 08:29 WBC Lymph % (Auto) Sully % (Auto) 8.4 H Lymph # (Auto) Sully # (Auto) Seg Neutrophils % Seg Neuts % (Manual) Lymphocytes % (Manual) Seg Neutrophils # Seg Neutrophils # Man Lymphocytes # (Manual) Monocytes # (Manual) D-Dimer ABG pH POC ABG pCO2 POC ABG pO2 ABG pO2 ABG HCO3 ABG O2 Saturation ABG Base Excess ABG Hemoglobin ABG Oxyhemoglobin ABG Potassium ABG Glucose VBG pH 7.303 L Oxyhemoglobin Sodium Potassium Chloride Carbon Dioxide BUN Creatinine Glucose 132 H POC Glucose Hemoglobin A1c Magnesium Ferritin AST Lactate Dehydrogenase C-Reactive Protein Albumin Arterial Blood Glucose Coronavirus (PCR) 08/11/20 08/11/20 08/11/20 05:39 05:39 05:39 WBC Lymph % (Auto) 12.5 L Sully % (Auto) Lymph # (Auto) Sully # (Auto) Seg Neutrophils % 84.2 H Seg Neuts % (Manual) Lymphocytes % (Manual) Seg Neutrophils # 9.1 H Seg Neutrophils # Man Lymphocytes # (Manual) Monocytes # (Manual) D-Dimer ABG pH POC ABG pCO2 POC ABG pO2 ABG pO2 ABG HCO3 ABG O2 Saturation ABG Base Excess ABG Hemoglobin ABG Oxyhemoglobin ABG Potassium ABG Glucose VBG pH Oxyhemoglobin Sodium Potassium Chloride Carbon Dioxide BUN Creatinine Glucose 125 H POC Glucose Hemoglobin A1c 6.1 H Magnesium Ferritin AST Lactate Dehydrogenase C-Reactive Protein Albumin Arterial Blood Glucose Coronavirus (PCR) 08/11/20 08/11/20 08/11/20 18:58 18:58 18:58 WBC Lymph % (Auto) Sully % (Auto) Lymph # (Auto) Sully # (Auto) Seg Neutrophils % Seg Neuts % (Manual) Lymphocytes % (Manual) Seg Neutrophils # Seg Neutrophils # Man Lymphocytes # (Manual) Monocytes # (Manual) D-Dimer 464.84 H ABG pH POC ABG pCO2 POC ABG pO2 ABG pO2 ABG HCO3 ABG O2 Saturation ABG Base Excess ABG Hemoglobin ABG Oxyhemoglobin ABG Potassium ABG Glucose VBG pH Oxyhemoglobin Sodium Potassium Chloride Carbon Dioxide BUN Creatinine Glucose POC Glucose Hemoglobin A1c Magnesium Ferritin 528.7 H AST Lactate Dehydrogenase 637 H C-Reactive Protein 11.30 H Albumin Arterial Blood Glucose Coronavirus (PCR) 08/11/20 08/11/20 08/12/20 19:08 Unknown 06:29 WBC 11.2 H Lymph % (Auto) 8.6 L Sully % (Auto) Lymph # (Auto) 1.0 L Sully # (Auto) Seg Neutrophils % 88.3 H Seg Neuts % (Manual) Lymphocytes % (Manual) Seg Neutrophils # 9.8 H Seg Neutrophils # Man Lymphocytes # (Manual) Monocytes # (Manual) D-Dimer ABG pH POC ABG pCO2 POC ABG pO2 ABG pO2 ABG HCO3 ABG O2 Saturation ABG Base Excess ABG Hemoglobin ABG Oxyhemoglobin ABG Potassium ABG Glucose VBG pH Oxyhemoglobin Sodium Potassium Chloride Carbon Dioxide BUN Creatinine Glucose 161 H POC Glucose Hemoglobin A1c Magnesium Ferritin AST Lactate Dehydrogenase C-Reactive Protein Albumin Arterial Blood Glucose Coronavirus (PCR) Positive A 08/12/20 08/12/20 08/12/20 06:29 06:29 06:29 WBC Lymph % (Auto) Sully % (Auto) Lymph # (Auto) Sully # (Auto) Seg Neutrophils % Seg Neuts % (Manual) Lymphocytes % (Manual) Seg Neutrophils # Seg Neutrophils # Man Lymphocytes # (Manual) Monocytes # (Manual) D-Dimer 830.34 H ABG pH POC ABG pCO2 POC ABG pO2 ABG pO2 ABG HCO3 ABG O2 Saturation ABG Base Excess ABG Hemoglobin ABG Oxyhemoglobin ABG Potassium ABG Glucose VBG pH Oxyhemoglobin Sodium Potassium Chloride Carbon Dioxide 31 H BUN Creatinine Glucose 138 H POC Glucose Hemoglobin A1c Magnesium Ferritin 572.6 H AST 42 H Lactate Dehydrogenase 706 H C-Reactive Protein 17.30 H Albumin 3.7 L Arterial Blood Glucose Coronavirus (PCR) 08/12/20 08/12/20 08/12/20 13:21 14:55 21:59 WBC Lymph % (Auto) Sully % (Auto) Lymph # (Auto) Sully # (Auto) Seg Neutrophils % Seg Neuts % (Manual) Lymphocytes % (Manual) Seg Neutrophils # Seg Neutrophils # Man Lymphocytes # (Manual) Monocytes # (Manual) D-Dimer ABG pH 7.315 L POC ABG pCO2 57.1 H POC ABG pO2 47.8 L ABG pO2 65.8 L ABG HCO3 31.4 H ABG O2 Saturation 91.7 L ABG Base Excess ABG Hemoglobin 19.3 H ABG Oxyhemoglobin ABG Potassium 4.9 H ABG Glucose 182 H VBG pH Oxyhemoglobin 89.7 L Sodium Potassium Chloride Carbon Dioxide BUN Creatinine Glucose POC Glucose 142 H Hemoglobin A1c Magnesium Ferritin AST Lactate Dehydrogenase C-Reactive Protein Albumin Arterial Blood Glucose 182 H Coronavirus (PCR) 08/13/20 08/13/20 08/13/20 05:35 05:35 12:11 WBC 12.0 H Lymph % (Auto) 8.1 L Sully % (Auto) Lymph # (Auto) 1.0 L Sully # (Auto) Seg Neutrophils % 88.0 H Seg Neuts % (Manual) Lymphocytes % (Manual) Seg Neutrophils # 10.5 H Seg Neutrophils # Man Lymphocytes # (Manual) Monocytes # (Manual) D-Dimer ABG pH POC ABG pCO2 POC ABG pO2 ABG pO2 ABG HCO3 ABG O2 Saturation ABG Base Excess ABG Hemoglobin ABG Oxyhemoglobin ABG Potassium ABG Glucose VBG pH Oxyhemoglobin Sodium Potassium 5.1 H Chloride Carbon Dioxide 31 H BUN 25 H Creatinine Glucose 174 H POC Glucose 154 H Hemoglobin A1c Magnesium Ferritin AST 41 H Lactate Dehydrogenase 996 H C-Reactive Protein Albumin 3.8 L Arterial Blood Glucose Coronavirus (PCR) 08/13/20 08/13/20 08/14/20 16:18 23:24 05:21 WBC 14.2 H Lymph % (Auto) 8.2 L Sully % (Auto) Lymph # (Auto) Sully # (Auto) 0.9 H Seg Neutrophils % 85.4 H Seg Neuts % (Manual) Lymphocytes % (Manual) Seg Neutrophils # 12.2 H Seg Neutrophils # Man Lymphocytes # (Manual) Monocytes # (Manual) D-Dimer ABG pH POC ABG pCO2 POC ABG pO2 ABG pO2 ABG HCO3 ABG O2 Saturation ABG Base Excess ABG Hemoglobin ABG Oxyhemoglobin ABG Potassium ABG Glucose VBG pH Oxyhemoglobin Sodium Potassium Chloride Carbon Dioxide BUN Creatinine Glucose POC Glucose 188 H 127 H Hemoglobin A1c Magnesium Ferritin AST Lactate Dehydrogenase C-Reactive Protein Albumin Arterial Blood Glucose Coronavirus (PCR) 08/14/20 08/14/20 08/14/20 05:21 05:21 05:21 WBC Lymph % (Auto) Sully % (Auto) Lymph # (Auto) Sully # (Auto) Seg Neutrophils % Seg Neuts % (Manual) Lymphocytes % (Manual) Seg Neutrophils # Seg Neutrophils # Man Lymphocytes # (Manual) Monocytes # (Manual) D-Dimer > 33342 H ABG pH POC ABG pCO2 POC ABG pO2 ABG pO2 ABG HCO3 ABG O2 Saturation ABG Base Excess ABG Hemoglobin ABG Oxyhemoglobin ABG Potassium ABG Glucose VBG pH Oxyhemoglobin Sodium Potassium Chloride Carbon Dioxide 32 H 33 H BUN 26 H 26 H Creatinine Glucose 152 H 156 H POC Glucose Hemoglobin A1c Magnesium Ferritin AST 53 H 54 H Lactate Dehydrogenase 1249 H C-Reactive Protein 9.90 H Albumin 3.7 L 3.7 L Arterial Blood Glucose Coronavirus (PCR) 08/14/20 08/14/20 08/14/20 05:21 05:58 08:23 WBC Lymph % (Auto) Sully % (Auto) Lymph # (Auto) Sully # (Auto) Seg Neutrophils % Seg Neuts % (Manual) Lymphocytes % (Manual) Seg Neutrophils # Seg Neutrophils # Man Lymphocytes # (Manual) Monocytes # (Manual) D-Dimer ABG pH POC ABG pCO2 POC ABG pO2 50.0 L ABG pO2 ABG HCO3 ABG O2 Saturation ABG Base Excess ABG Hemoglobin ABG Oxyhemoglobin 84.0 L ABG Potassium ABG Glucose 141 H VBG pH Oxyhemoglobin Sodium Potassium Chloride Carbon Dioxide BUN Creatinine Glucose POC Glucose 139 H Hemoglobin A1c Magnesium Ferritin 1198.0 H AST Lactate Dehydrogenase C-Reactive Protein Albumin Arterial Blood Glucose 141 H Coronavirus (PCR) 08/15/20 08/15/20 08/16/20 05:16 05:16 05:26 WBC 13.7 H 17.7 H Lymph % (Auto) 8.2 L Sully % (Auto) Lymph # (Auto) Sully # (Auto) Seg Neutrophils % 86.2 H Seg Neuts % (Manual) 91.0 H 88.0 H Lymphocytes % (Manual) 7.0 L 9.0 L Seg Neutrophils # 15.3 H Seg Neutrophils # Man 12.5 H 15.6 H Lymphocytes # (Manual) 1.0 L Monocytes # (Manual) D-Dimer ABG pH POC ABG pCO2 POC ABG pO2 ABG pO2 ABG HCO3 ABG O2 Saturation ABG Base Excess ABG Hemoglobin ABG Oxyhemoglobin ABG Potassium ABG Glucose VBG pH Oxyhemoglobin Sodium Potassium Chloride Carbon Dioxide 32 H BUN 29 H Creatinine Glucose 150 H POC Glucose Hemoglobin A1c Magnesium Ferritin AST Lactate Dehydrogenase 1150 H C-Reactive Protein Albumin 3.5 L Arterial Blood Glucose Coronavirus (PCR) 08/16/20 08/16/20 08/16/20 05:26 05:26 05:26 WBC Lymph % (Auto) Sully % (Auto) Lymph # (Auto) Sully # (Auto) Seg Neutrophils % Seg Neuts % (Manual) Lymphocytes % (Manual) Seg Neutrophils # Seg Neutrophils # Man Lymphocytes # (Manual) Monocytes # (Manual) D-Dimer > 85967 H ABG pH POC ABG pCO2 POC ABG pO2 ABG pO2 ABG HCO3 ABG O2 Saturation ABG Base Excess ABG Hemoglobin ABG Oxyhemoglobin ABG Potassium ABG Glucose VBG pH Oxyhemoglobin Sodium Potassium 5.2 H Chloride Carbon Dioxide BUN 25 H Creatinine Glucose 163 H POC Glucose Hemoglobin A1c Magnesium Ferritin 1013.0 H AST Lactate Dehydrogenase C-Reactive Protein 4.00 H Albumin 3.6 L Arterial Blood Glucose Coronavirus (PCR) 08/17/20 08/17/20 08/17/20 05:06 05:06 07:51 WBC 20.7 H Lymph % (Auto) Sully % (Auto) Lymph # (Auto) Sully # (Auto) Seg Neutrophils % Seg Neuts % (Manual) 86.0 H Lymphocytes % (Manual) 7.0 L Seg Neutrophils # Seg Neutrophils # Man 17.8 H Lymphocytes # (Manual) Monocytes # (Manual) 1.2 H D-Dimer ABG pH POC ABG pCO2 POC ABG pO2 ABG pO2 ABG HCO3 ABG O2 Saturation ABG Base Excess ABG Hemoglobin ABG Oxyhemoglobin ABG Potassium ABG Glucose VBG pH Oxyhemoglobin Sodium Potassium Chloride 96.5 L Carbon Dioxide 31 H BUN 29 H Creatinine Glucose 121 H POC Glucose 110 H Hemoglobin A1c Magnesium Ferritin AST 46 H Lactate Dehydrogenase C-Reactive Protein Albumin 3.7 L Arterial Blood Glucose Coronavirus (PCR) 08/17/20 08/17/20 08/18/20 11:42 21:45 05:13 WBC Lymph % (Auto) Sully % (Auto) Lymph # (Auto) Sully # (Auto) Seg Neutrophils % Seg Neuts % (Manual) Lymphocytes % (Manual) Seg Neutrophils # Seg Neutrophils # Man Lymphocytes # (Manual) Monocytes # (Manual) D-Dimer > 1000 H ABG pH POC ABG pCO2 POC ABG pO2 ABG pO2 ABG HCO3 ABG O2 Saturation ABG Base Excess ABG Hemoglobin ABG Oxyhemoglobin ABG Potassium ABG Glucose VBG pH Oxyhemoglobin Sodium Potassium Chloride Carbon Dioxide BUN Creatinine Glucose POC Glucose 122 H 143 H Hemoglobin A1c Magnesium Ferritin AST Lactate Dehydrogenase C-Reactive Protein Albumin Arterial Blood Glucose Coronavirus (PCR) 08/18/20 08/18/20 08/21/20 05:13 05:13 11:17 WBC Lymph % (Auto) Sully % (Auto) Lymph # (Auto) Sully # (Auto) Seg Neutrophils % Seg Neuts % (Manual) Lymphocytes % (Manual) Seg Neutrophils # Seg Neutrophils # Man Lymphocytes # (Manual) Monocytes # (Manual) D-Dimer ABG pH POC ABG pCO2 POC ABG pO2 ABG pO2 ABG HCO3 ABG O2 Saturation ABG Base Excess ABG Hemoglobin ABG Oxyhemoglobin ABG Potassium ABG Glucose VBG pH Oxyhemoglobin Sodium 133 L Potassium Chloride 94.7 L Carbon Dioxide BUN 33 H Creatinine Glucose 110 H POC Glucose 151 H Hemoglobin A1c Magnesium Ferritin 979.8 H AST 50 H Lactate Dehydrogenase C-Reactive Protein Albumin 3.7 L Arterial Blood Glucose Coronavirus (PCR) 08/21/20 08/21/20 08/21/20 13:39 13:39 15:55 WBC Lymph % (Auto) Sully % (Auto) Lymph # (Auto) Sully # (Auto) Seg Neutrophils % Seg Neuts % (Manual) Lymphocytes % (Manual) Seg Neutrophils # Seg Neutrophils # Man Lymphocytes # (Manual) Monocytes # (Manual) D-Dimer 6731.66 H ABG pH POC ABG pCO2 POC ABG pO2 ABG pO2 ABG HCO3 ABG O2 Saturation ABG Base Excess ABG Hemoglobin ABG Oxyhemoglobin ABG Potassium ABG Glucose VBG pH Oxyhemoglobin Sodium Potassium Chloride Carbon Dioxide BUN Creatinine Glucose POC Glucose Hemoglobin A1c Magnesium Ferritin 1019.0 H AST Lactate Dehydrogenase 1251 H C-Reactive Protein Albumin Arterial Blood Glucose Coronavirus (PCR) 08/22/20 08/22/20 08/25/20 05:23 05:23 12:30 WBC 24.7 H Lymph % (Auto) Sully % (Auto) Lymph # (Auto) Sully # (Auto) Seg Neutrophils % Seg Neuts % (Manual) Lymphocytes % (Manual) Seg Neutrophils # Seg Neutrophils # Man Lymphocytes # (Manual) Monocytes # (Manual) D-Dimer ABG pH 7.313 L POC ABG pCO2 POC ABG pO2 ABG pO2 76.2 L ABG HCO3 33.3 H ABG O2 Saturation 94.9 L ABG Base Excess 5.0 H ABG Hemoglobin 13.4 L ABG Oxyhemoglobin ABG Potassium ABG Glucose VBG pH Oxyhemoglobin 93.0 L Sodium 136 L Potassium Chloride 96.3 L Carbon Dioxide BUN 24 H Creatinine 0.7 L Glucose 115 H POC Glucose Hemoglobin A1c Magnesium Ferritin AST Lactate Dehydrogenase C-Reactive Protein Albumin Arterial Blood Glucose Coronavirus (PCR) 08/25/20 08/25/20 08/25/20 16:08 16:08 16:08 WBC Lymph % (Auto) Sully % (Auto) Lymph # (Auto) Sully # (Auto) Seg Neutrophils % Seg Neuts % (Manual) Lymphocytes % (Manual) Seg Neutrophils # Seg Neutrophils # Man Lymphocytes # (Manual) Monocytes # (Manual) D-Dimer 4487.76 H ABG pH POC ABG pCO2 POC ABG pO2 ABG pO2 ABG HCO3 ABG O2 Saturation ABG Base Excess ABG Hemoglobin ABG Oxyhemoglobin ABG Potassium ABG Glucose VBG pH Oxyhemoglobin Sodium Potassium Chloride Carbon Dioxide BUN Creatinine Glucose POC Glucose Hemoglobin A1c Magnesium Ferritin 961.4 H AST Lactate Dehydrogenase 959 H C-Reactive Protein Albumin Arterial Blood Glucose Coronavirus (PCR) 08/26/20 08/26/20 08/31/20 07:11 07:11 10:56 WBC Lymph % (Auto) Sully % (Auto) 9.8 H Lymph # (Auto) Sully # (Auto) 1.0 H Seg Neutrophils % Seg Neuts % (Manual) Lymphocytes % (Manual) Seg Neutrophils # Seg Neutrophils # Man Lymphocytes # (Manual) Monocytes # (Manual) D-Dimer ABG pH POC ABG pCO2 POC ABG pO2 ABG pO2 ABG HCO3 ABG O2 Saturation ABG Base Excess ABG Hemoglobin ABG Oxyhemoglobin ABG Potassium ABG Glucose VBG pH Oxyhemoglobin Sodium 135 L Potassium Chloride 95.7 L 97.4 L Carbon Dioxide 33 H 34 H BUN Creatinine 0.6 L Glucose 109 H POC Glucose Hemoglobin A1c Magnesium 2.40 H Ferritin AST Lactate Dehydrogenase C-Reactive Protein Albumin Arterial Blood Glucose Coronavirus (PCR)
--- NOTE | 2020-09-01 15:23 | Progress Note ---
Assessment and Plan Cultures: Blood culture 08/10/2020 no growth SARS CoV2 PCR positive 08/10/2020 urine culture: No growth Assessment: 30 years old male with history of morbid obesity, admitted on 08/10/2020 secondary to 3-day history of intermittent frontal headache: #Leukocytosis: resolved, likely due to steroids/severe hypoxia, repeat procalcitonin level is low #Severe COVID19 pneumonia: On steroids, completed remdesivir. S/P actemra on 08/14/2020. Completed empiric abx course. Procal is low, additional abx not needed. CXR not significant change. Markers trending down #Acute hypoxemic respiratory failure: severe, on nonrebreather #Acute right leg DVT, very high d-dimer. On anticoagulation. #LONNY: Resolved #Morbid obesity: Associated with worse outcomes Recommendations: -Completed steroids -S/P remdesivir, actemra -Monitor inflammatory markers - ferritin, Ddimer, CRP, LDH -continue anticoagulation for DVT/Eliquis -prone positioning whenever possible -pulm on board Dr. Ng covering this weekend Calvin Humphreys MD [facility] O: [phone] F: [phone] Subjective Date of service: 09/01/20 Principal diagnosis: COVID Interval history: Afebrile, no acute changes. High flow nasal cannula. Objective - Exam Narrative Exam: Physical exam deferred to reduce risk of transmission of COVID-19. Please refer to primary team's note. - Constitutional Vitals: Vital Signs Temp Pulse Resp BP Pulse Ox 98.9 F 93 H 16 113/53 97 09/01/20 07:52 09/01/20 06:00 09/01/20 06:00 09/01/20 06:00 09/01/20 08:00 Temperature -Last 24 Hours Temperature 98.9 F Temperature 98.8 F Temperature 99.2 F Temperature 98.8 F Temperature 99.0 F - Labs CBC & Chem 7: 08/26/20 07:11 08/31/20 10:56
--- NOTE | 2020-09-01 18:33 | Progress Note ---
Assessment and Plan The high probability of a clinically significant, sudden or life threatening deterioration of the [pulmonary,Vascular,ID,CVS and hematology] system(s) required my full and direct attention, intervention and personal management. The aggregate critical care time was [32] minutes. This time is in addition to time spent performing reported procedures but includes the following: [x] Data Review and interpretation [x] Patient assessment and monitoring of vital signs [x] Documentation [x] Medication orders and management Assessment and Plan Assessment and plan: --COVID-19 Pneumonia Continue antibiotics Continue steroids total 10 days s/p Remdesivir, s/p tocilizumab Oxygen supplementation with high flow oxygen/ BiPAP/nonrebreather as needed Trend inflammatory markers Prone positioning strongly advised ID and pulmonology following --Acute hypoxic respiratory failure secondary to COVID-19 PNA Pt remains on high flow oxygen 40/100/93 intermittent 100% nonrebreather Patient unstable to go for CTA chest to evaluate the cause of persistent hypoxia pulmonary following, Home O2 evaluation at discharge --Right lower extremity DVT on LE Doppler study LE Doppler LE Doppler shows RLE DVT. Echocardiogram shows no right heart strain. On Eliquis per protocol --Sinus bradycardia /resolved Likely from remdesivir Heart rate in 60s and 70s today TSH wnl --Morbid obesity; BMI 41.9 Diet and exercise advised Patient needs outpatient bariatric surgical/medical weight reduction consult when medically stable --Positive DVT ;-on Eliquis Continues to be on high flow oxygen, Wean as tolerated We will closely monitor the patient and adjust management as needed Maternity Nurse recommendations noted and appreciated Plan of care reviewed with the patient and his nurse and the case management Subjective Date of service: 09/01/20 Principal diagnosis: COVID Interval history: Brief history 30-year-old male with morbid obesity weighing about 310 pounds was admitted through emergency room with frontal headache for 3 days. Patient was noted to be hypoxic with shortness of breath and cough O2 sats room air were in the 80s, requiring high flow oxygen, BiPAP, patient was admitted to IMCU Patient was PUI, placed in isolation, gillespie PCR test was positive, evaluated by ID and pulmonary, medications optimized and patient was being managed per COVID-19 protocols and guidelines. Patient continues to depend on high flow oxygen and BiPAP. Today patient continues to be on very high flow oxygen of 40 L/100% FiO2/94 to 96% O2 sats Patient advised bariatric surgical consultation upon discharge for weight reduction program Work-up in the emergency room showed bilateral patchy opacities in the lungs and hypoxia-hence he was admitted for bilateral pneumonia and possible Covid pneumonia. No significant past medical history Daily Hospital course: 08/11. Patient seen examined at bedside this morning. Has no complaints. Febrile this a.m.-103 Fahrenheit. On Tylenol as needed. COVID-19 test ordered. Remains on steroids. ID consult if COVID-19 is positive. 08/12. His COVID-19 test is positive. He was started on remdesivir last night. Oxygen requirement increased overnight. Inflammatory markers increasing. Repeat chest xray shows worsening infiltrates. Ordered BNP. Lasix 40mg IV ordered. Increased dexamethasone to 6mg BID. Pulmonology consulted. Will place on continuous pulse oximetry. Incentive spirometer ordered. Advised prone positioning. 08/13. Not feeling better. Seen on BIPAP. Remains on steroids, remdesivir and antibiotics. Vitals stable. 08/14. Still maintaining sats even on BiPAP. Lasix 40 mg IV ordered. D-dimer this a.m. is more than 10,000. Lovenox increased to 150 mg twice daily. Ultrasound lower extremities Doppler showed a right DVT. Echocardiogram ordered to rule out right heart strain. Pending results, patient may need vascular surgery evaluation for possible thrombectomy. Continue on BiPAP and continue to monitor respiratory status closely. 08/15. Sats better this AM. Received toculizumab yesterday. Advised him to prone as much as possible. Echo shows normal EF with no right heart strain. I/Os reviewed. He is diuresing well. Renal function is stable. Will give additional lasix today. Pulmonology following 08/16. Remains on remdesivir. Still on BIPAP. Will give lasix 20mg IV. HR is low - likley effect of remdesivir. Will continue to monitor closely 08/17. Sats in the 90's this AM. Still on BIPAP. 08/18; patient remains hypoxic requiring BiPAP and 100% nonrebreather intermittently 08/19; Continue supportive care, wean oxygen as tolerated. Encouraged PRONE positioning if able to tolerate. 08/20:Remains on BiPAP. continue lasix, still not proninig, encouraged to prone, FIO2 down to 90% with sat of 96%. Continue care, prognosis still guarded. 08/21: Patient down on high flow. Continue to encourage proning position. Still with guarded prognosis. Elevation in WBC noted to 20 this could be secondary to steroids I will continue to monitor. No fever noted at this time. Patient's respiratory status has stabilized on the high flow with no shallow breathing noted Discussed with the nurse at bedside 08/22; DC Lovenox therapeutic dose, start Eliquis per protocol to treat lower extremity DVT. 08/23; patient remains on high flow oxygen 40 L/100 FiO2/94% O2 sats, intermittent BiPAP 08/24; patient remains on high flow oxygen and BiPAP, consultants recommendations noted and appreciated 08/25; patient continues to be hypoxemic, on high flow oxygen 40L/ 100 FiO2/95 O2 sats and on intermittent BiPAP 08/26; patient continues to be on high flow oxygen, unable to wean follow pulmonary recommendations 08/27; patient remains on high flow oxygen 40 L/100% FiO2/95% O2 sats with intermittent BiPAP treatment 08/28; patient remains on high flow oxygen, strongly advised to prone as tolerated, consults and recommendations noted and appreciated 08/29; closely monitor the patient and adjust management as needed, wean oxygen as tolerated Home oxygen evaluation, DC planning when medically stable 08/30; clinically no change, remains on high flow oxygen, wean as tolerated Consultants recommendations noted . 08/31; patient remains on high flow oxygen 40/100/93 09/01 Same Objective - Constitutional Vitals: Vital Signs - 12hr 09/01/20 09/01/20 09/01/20 07:00 07:52 08:00 Temperature 98.9 F Pulse Rate 98 H 98 H Pulse Rate [ 99 H From Monitor] Respiratory 12 13 Rate Blood Pressure 146/76 134/73 O2 Sat by Pulse 95 93 Oximetry 09/01/20 09/01/20 09/01/20 09:00 10:00 11:00 Temperature Pulse Rate 101 H 86 86 Pulse Rate [ From Monitor] Respiratory 10 L 8 L 9 L Rate Blood Pressure 134/73 135/78 94/34 O2 Sat by Pulse 92 96 97 Oximetry 09/01/20 09/01/20 09/01/20 12:00 13:00 14:00 Temperature Pulse Rate 81 100 H 106 H Pulse Rate [ 88 From Monitor] Respiratory 11 L 15 11 L Rate Blood Pressure 91/40 96/38 112/86 O2 Sat by Pulse 97 95 98 Oximetry 09/01/20 09/01/20 09/01/20 15:00 15:46 17:00 Temperature 99.6 F Pulse Rate 109 H Pulse Rate [ 97 H From Monitor] Respiratory 14 14 Rate Blood Pressure 129/42 O2 Sat by Pulse 91 94 Oximetry General appearance: Present: mild distress, well-nourished - EENT Eyes: PERRL, EOM intact ENT: hearing intact, clear oral mucosa Ears: bilateral: normal - Neck Neck: supple, normal ROM - Respiratory Respiratory effort: normal Respiratory: bilateral: CTA - Breasts Breasts: normal - Cardiovascular Heart rate: 98 Rhythm: regular Heart Sounds: Present: S1 & S2. Absent: gallop, rub Extremities: pulses intact, No edema, normal color, Full ROM - Gastrointestinal General gastrointestinal: Present: soft, non-tender, non-distended, normal bowel sounds - Genitourinary Male genitourinary: normal - Integumentary Integumentary: clear, warm, dry - Musculoskeletal Musculoskeletal: 1, strength equal bilaterally - Neurologic Neurologic: moves all extremities - Psychiatric Psychiatric: memory intact, appropriate mood/affect, intact judgment & insight - Labs CBC & Chem 7: 08/26/20 07:11 08/31/20 10:56
[2020-09-02] MEDS: methylPREDNISolone Sod Succinate 40 MG/1 ML INJ IV SCH ×3 (05:23→23:33)
[2020-09-02] MEDS: ASCORBIC ACID 500 MG TAB PO SCH ×2 (10:13→23:33)
[2020-09-02] MEDS: ZINC SULFATE 220 MG CAP PO SCH (10:13)
[2020-09-02] MEDS: APIXABAN 5 MG TAB PO SCH ×2 (10:13→23:34)
[2020-09-02] MEDS: FAMOTIDINE 20 MG TAB PO SCH ×2 (10:13→23:33)
--- NOTE | 2020-09-02 14:51 | Progress Note ---
Assessment and Plan The high probability of a clinically significant, sudden or life threatening deterioration of the [pulmonary,Vascular,ID,CVS and hematology] system(s) required my full and direct attention, intervention and personal management. The aggregate critical care time was [32] minutes. This time is in addition to time spent performing reported procedures but includes the following: [x] Data Review and interpretation [x] Patient assessment and monitoring of vital signs [x] Documentation [x] Medication orders and management Assessment and Plan Assessment and plan: --COVID-19 Pneumonia Continue antibiotics Continue steroids total 10 days s/p Remdesivir, s/p tocilizumab Oxygen supplementation with high flow oxygen/ BiPAP/nonrebreather as needed Trend inflammatory markers Prone positioning strongly advised ID and pulmonology following --Acute hypoxic respiratory failure secondary to COVID-19 PNA Pt remains on high flow oxygen 40/100/93 intermittent 100% nonrebreather Patient unstable to go for CTA chest to evaluate the cause of persistent hypoxia pulmonary following, Home O2 evaluation at discharge --Right lower extremity DVT on LE Doppler study LE Doppler LE Doppler shows RLE DVT. Echocardiogram shows no right heart strain. On Eliquis per protocol --Sinus bradycardia /resolved Likely from remdesivir Heart rate in 60s and 70s today TSH wnl --Morbid obesity; BMI 41.9 Diet and exercise advised Patient needs outpatient bariatric surgical/medical weight reduction consult when medically stable --Positive DVT ;-on Eliquis Continues to be on high flow oxygen, Wean as tolerated We will closely monitor the patient and adjust management as needed Stained [employer] recommendations noted and appreciated Plan of care reviewed with the patient and his nurse and the case management Subjective Date of service: 09/02/20 Principal diagnosis: COVID Interval history: Brief history 30-year-old male with morbid obesity weighing about 310 pounds was admitted through emergency room with frontal headache for 3 days. Patient was noted to be hypoxic with shortness of breath and cough O2 sats room air were in the 80s, requiring high flow oxygen, BiPAP, patient was admitted to IMCU Patient was PUI, placed in isolation, gillespie PCR test was positive, evaluated by ID and pulmonary, medications optimized and patient was being managed per COVID-19 protocols and guidelines. Patient continues to depend on high flow oxygen and BiPAP. Today patient continues to be on very high flow oxygen of 40 L/100% FiO2/94 to 96% O2 sats Patient advised bariatric surgical consultation upon discharge for weight reduction program Work-up in the emergency room showed bilateral patchy opacities in the lungs and hypoxia-hence he was admitted for bilateral pneumonia and possible Covid pneumonia. No significant past medical history Daily Hospital course: 08/11. Patient seen examined at bedside this morning. Has no complaints. Febrile this a.m.-103 Fahrenheit. On Tylenol as needed. COVID-19 test ordered. Remains on steroids. ID consult if COVID-19 is positive. 08/12. His COVID-19 test is positive. He was started on remdesivir last night. Oxygen requirement increased overnight. Inflammatory markers increasing. Repeat chest xray shows worsening infiltrates. Ordered BNP. Lasix 40mg IV ordered. Increased dexamethasone to 6mg BID. Pulmonology consulted. Will place on continuous pulse oximetry. Incentive spirometer ordered. Advised prone positioning. 08/13. Not feeling better. Seen on BIPAP. Remains on steroids, remdesivir and antibiotics. Vitals stable. 08/14. Still maintaining sats even on BiPAP. Lasix 40 mg IV ordered. D-dimer this a.m. is more than 10,000. Lovenox increased to 150 mg twice daily. Ultrasound lower extremities Doppler showed a right DVT. Echocardiogram ordered to rule out right heart strain. Pending results, patient may need vascular surgery evaluation for possible thrombectomy. Continue on BiPAP and continue to monitor respiratory status closely. 08/15. Sats better this AM. Received toculizumab yesterday. Advised him to prone as much as possible. Echo shows normal EF with no right heart strain. I/Os reviewed. He is diuresing well. Renal function is stable. Will give additional lasix today. Pulmonology following 08/16. Remains on remdesivir. Still on BIPAP. Will give lasix 20mg IV. HR is low - likley effect of remdesivir. Will continue to monitor closely 08/17. Sats in the 90's this AM. Still on BIPAP. 08/18; patient remains hypoxic requiring BiPAP and 100% nonrebreather intermittently 08/19; Continue supportive care, wean oxygen as tolerated. Encouraged PRONE positioning if able to tolerate. 08/20:Remains on BiPAP. continue lasix, still not proninig, encouraged to prone, FIO2 down to 90% with sat of 96%. Continue care, prognosis still guarded. 08/21: Patient down on high flow. Continue to encourage proning position. Still with guarded prognosis. Elevation in WBC noted to 20 this could be secondary to steroids I will continue to monitor. No fever noted at this time. Patient's respiratory status has stabilized on the high flow with no shallow breathing noted Discussed with the nurse at bedside 08/22; DC Lovenox therapeutic dose, start Eliquis per protocol to treat lower extremity DVT. 08/23; patient remains on high flow oxygen 40 L/100 FiO2/94% O2 sats, intermittent BiPAP 08/24; patient remains on high flow oxygen and BiPAP, consultants recommendations noted and appreciated 08/25; patient continues to be hypoxemic, on high flow oxygen 40L/ 100 FiO2/95 O2 sats and on intermittent BiPAP 08/26; patient continues to be on high flow oxygen, unable to wean follow pulmonary recommendations 08/27; patient remains on high flow oxygen 40 L/100% FiO2/95% O2 sats with intermittent BiPAP treatment 08/28; patient remains on high flow oxygen, strongly advised to prone as tolerated, consults and recommendations noted and appreciated 08/29; closely monitor the patient and adjust management as needed, wean oxygen as tolerated Home oxygen evaluation, DC planning when medically stable 08/30; clinically no change, remains on high flow oxygen, wean as tolerated Consultants recommendations noted . 08/31; patient remains on high flow oxygen 40/100/93 09/01 On High flow O2 09/02 On High flow o2 Objective - Constitutional Vitals: Vital Signs - 12hr 09/02/20 09/02/20 09/02/20 03:00 03:57 04:00 Temperature Pulse Rate 90 71 74 Pulse Rate [ 97 H From Monitor] Respiratory 12 20 15 Rate Blood Pressure 124/60 124/61 113/77 O2 Sat by Pulse 92 97 94 Oximetry 09/02/20 09/02/20 09/02/20 05:00 06:00 06:46 Temperature Pulse Rate 76 75 Pulse Rate [ From Monitor] Respiratory 8 L 12 Rate Blood Pressure 115/76 119/86 O2 Sat by Pulse 100 96 92 Oximetry 09/02/20 09/02/20 09/02/20 07:00 08:00 09:00 Temperature 98.4 F Pulse Rate 75 75 75 Pulse Rate [ From Monitor] Respiratory 7 L 9 L 7 L Rate Blood Pressure 114/71 109/70 108/67 O2 Sat by Pulse 95 94 94 Oximetry 09/02/20 09/02/20 09/02/20 10:00 11:00 12:00 Temperature Pulse Rate 93 H 87 81 Pulse Rate [ From Monitor] Respiratory 12 12 10 L Rate Blood Pressure 117/74 111/69 100/73 O2 Sat by Pulse 93 92 97 Oximetry General appearance: Present: mild distress, well-nourished - EENT Eyes: PERRL, EOM intact ENT: hearing intact, clear oral mucosa Ears: bilateral: normal - Neck Neck: supple, normal ROM - Respiratory Respiratory effort: normal Respiratory: bilateral: CTA - Breasts Breasts: normal - Cardiovascular Heart rate: 88 Rhythm: regular Heart Sounds: Present: S1 & S2. Absent: gallop, rub Extremities: pulses intact, No edema, normal color, Full ROM - Gastrointestinal General gastrointestinal: Present: soft, non-tender, non-distended, normal bowel sounds - Genitourinary Male genitourinary: normal - Integumentary Integumentary: clear, warm, dry - Musculoskeletal Musculoskeletal: 1, strength equal bilaterally - Neurologic Neurologic: moves all extremities - Psychiatric Psychiatric: memory intact, appropriate mood/affect, intact judgment & insight - Allied health notes Allied health notes reviewed: nursing, case management - Labs CBC & Chem 7: 08/26/20 07:11 08/31/20 10:56
--- NOTE | 2020-09-02 20:18 | Progress Note ---
Assessment and Plan Imp: 1. Covid-19 2. Viral pneumonia 3. ARDS 4. Acute respiratory failure, hypoxia 5. Obesity Rec: 1. Cont. current care -> steroids, proning, Eliquis, weaning of HFNC to keep sats 88% or > 2. Further plans pending clinical course; complex decision-making Plan of care reviewed w/ patient, he understands/agrees Subjective Date of service: 09/02/20 Principal diagnosis: COVID Interval history: No events. SOB better but still on HFNC 40LPM and 100% FiO2. Active Medications Acetaminophen (Acetaminophen 325 Mg Tab) 650 mg PO Q4H PRN PRN Reason: Pain MILD(1-3)/Fever >100.5/MARTINEZ Last Admin: 08/31/20 00:34 Dose: 650 mg Documented by: Apixaban (Apixaban 5 Mg Tab) 5 mg PO Q12HR [facility]; Protocol Last Admin: 09/02/20 10:13 Dose: 5 mg Documented by: Artificial Tears (Hypromellose 0.5% Ophth Soln 15 Ml) 2 drops OU Q4H PRN PRN Reason: Dry Eye(s) Ascorbic Acid (Ascorbic Acid 500 Mg Tab) 500 mg PO BID [facility] Last Admin: 09/02/20 10:13 Dose: 500 mg Documented by: Famotidine (Famotidine 20 Mg Tab) 20 mg PO BID [facility] Last Admin: 09/02/20 10:13 Dose: 20 mg Documented by: Methylprednisolone Sodium Succinate (Methylprednisolone Sod Succinate 40 Mg/1 Ml Inj) 40 mg IV Q8HR [facility] Last Admin: 09/02/20 14:25 Dose: 40 mg Documented by: Metoclopramide HCl (Metoclopramide 10 Mg/2 Ml Inj) 10 mg IV Q6H PRN PRN Reason: Nausea And Vomiting Morphine Sulfate (Morphine 2 Mg/1 Ml Inj) 2 mg IV Q4H PRN PRN Reason: Pain, Moderate (4-6) Last Admin: 08/25/20 10:20 Dose: 2 mg Documented by: Ondansetron HCl (Ondansetron 4 Mg/2 Ml Inj) 4 mg IV Q8H PRN PRN Reason: Nausea And Vomiting Oxycodone/Acetaminophen (Oxycodone /Acetaminophen 5-325mg Tab) 1 tab PO Q6H PRN PRN Reason: Pain, Moderate (4-6) Last Admin: 08/25/20 21:08 Dose: 1 tab Documented by: Sodium Chloride (Sodium Chloride 0.9% 10 Ml Flush Syringe) 10 ml IV BID [facility] Last Admin: 09/02/20 10:14 Dose: 10 ml Documented by: Sodium Chloride (Sodium Chloride 0.9% 10 Ml Flush Syringe) 10 ml IV PRN PRN PRN Reason: LINE FLUSH Last Admin: 08/12/20 21:04 Dose: 10 ml Documented by: Zinc Sulfate (Zinc Sulfate 220 Mg Cap) 220 mg PO QDAY [facility] Last Admin: 09/02/20 10:13 Dose: 220 mg Documented by: Objective Vital Signs - 12hr 09/02/20 09/02/20 09/02/20 09:00 10:00 11:00 Temperature Pulse Rate 75 93 H 87 Respiratory 7 L 12 12 Rate Blood Pressure 108/67 117/74 111/69 O2 Sat by Pulse 94 93 92 Oximetry 09/02/20 09/02/20 09/02/20 12:00 13:00 14:00 Temperature Pulse Rate 92 H 86 96 H Respiratory 10 L 18 12 Rate Blood Pressure 100/73 115/64 111/64 O2 Sat by Pulse 97 93 92 Oximetry 09/02/20 09/02/20 09/02/20 15:00 16:00 17:00 Temperature 98.4 F Pulse Rate 88 85 92 H Respiratory 10 L 9 L 15 Rate Blood Pressure 102/52 101/67 121/73 O2 Sat by Pulse 95 95 93 Oximetry 09/02/20 09/02/20 18:00 20:00 Temperature 98.9 F Pulse Rate 97 H Respiratory 12 Rate Blood Pressure 128/72 O2 Sat by Pulse 91 Oximetry Constitutional: no acute distress, alert Eyes: non-icteric ENT: oropharynx moist Neck: supple Effort: normal Ascultation: Bilateral: clear Cardiovascular: regular rate and rhythm (no mrg) Gastrointestinal: normoactive bowel sounds, soft, non-distended Integumentary: normal Extremities: no cyanosis, no edema, pink and warm Neurologic: normal mental status, non-focal exam Psychiatric: mood appropriate, affect normal CBC and BMP: 08/26/20 07:11 08/31/20 10:56 ABG, PT/INR, D-dimer: ABG ABG pH 7.313 pH Units (7.350-7.450) L 08/25/20 12:30 POC ABG pCO2 46.9 mmHg (32.0-48.0) 08/14/20 08:23 ABG pCO2 67.2 mm Hg 08/25/20 12:30 POC ABG pO2 50.0 mmHg (83-108) L 08/14/20 08:23 ABG pO2 76.2 mm Hg (80.0-90.0) L 08/25/20 12:30 POC ABG HCO3 31.4 08/14/20 08:23 ABG O2 Saturation 94.9 % (95.0-99.0) L 08/25/20 12:30 PT/INR, D-dimer PT 12.6 Sec. (12.2-14.9) 08/10/20 08:29 INR 0.96 (0.87-1.13) 08/10/20 08:29 D-Dimer 4487.76 ng/mlDDU (0-234) H 08/25/20 16:08 Abnormal lab findings: Abnormal Labs 08/10/20 08/10/20 08/10/20 08:29 08:29 08:29 WBC Lymph % (Auto) [place] % (Auto) 8.4 H Lymph # (Auto) [place] # (Auto) Seg Neutrophils % Seg Neuts % (Manual) Lymphocytes % (Manual) Seg Neutrophils # Seg Neutrophils # Man Lymphocytes # (Manual) Monocytes # (Manual) D-Dimer ABG pH POC ABG pCO2 POC ABG pO2 ABG pO2 ABG HCO3 ABG O2 Saturation ABG Base Excess ABG Hemoglobin ABG Oxyhemoglobin ABG Potassium ABG Glucose VBG pH 7.303 L Oxyhemoglobin Sodium Potassium Chloride Carbon Dioxide BUN Creatinine Glucose 132 H POC Glucose Hemoglobin A1c Magnesium Ferritin AST Lactate Dehydrogenase C-Reactive Protein Albumin Arterial Blood Glucose Coronavirus (PCR) 08/11/20 08/11/20 08/11/20 05:39 05:39 05:39 WBC Lymph % (Auto) 12.5 L [place] % (Auto) Lymph # (Auto) [place] # (Auto) Seg Neutrophils % 84.2 H Seg Neuts % (Manual) Lymphocytes % (Manual) Seg Neutrophils # 9.1 H Seg Neutrophils # Man Lymphocytes # (Manual) Monocytes # (Manual) D-Dimer ABG pH POC ABG pCO2 POC ABG pO2 ABG pO2 ABG HCO3 ABG O2 Saturation ABG Base Excess ABG Hemoglobin ABG Oxyhemoglobin ABG Potassium ABG Glucose VBG pH Oxyhemoglobin Sodium Potassium Chloride Carbon Dioxide BUN Creatinine Glucose 125 H POC Glucose Hemoglobin A1c 6.1 H Magnesium Ferritin AST Lactate Dehydrogenase C-Reactive Protein Albumin Arterial Blood Glucose Coronavirus (PCR) 08/11/20 08/11/20 08/11/20 18:58 18:58 18:58 WBC Lymph % (Auto) [place] % (Auto) Lymph # (Auto) [place] # (Auto) Seg Neutrophils % Seg Neuts % (Manual) Lymphocytes % (Manual) Seg Neutrophils # Seg Neutrophils # Man Lymphocytes # (Manual) Monocytes # (Manual) D-Dimer 464.84 H ABG pH POC ABG pCO2 POC ABG pO2 ABG pO2 ABG HCO3 ABG O2 Saturation ABG Base Excess ABG Hemoglobin ABG Oxyhemoglobin ABG Potassium ABG Glucose VBG pH Oxyhemoglobin Sodium Potassium Chloride Carbon Dioxide BUN Creatinine Glucose POC Glucose Hemoglobin A1c Magnesium Ferritin 528.7 H AST Lactate Dehydrogenase 637 H C-Reactive Protein 11.30 H Albumin Arterial Blood Glucose Coronavirus (PCR) 08/11/20 08/11/20 08/12/20 19:08 Unknown 06:29 WBC 11.2 H Lymph % (Auto) 8.6 L [place] % (Auto) Lymph # (Auto) 1.0 L [place] # (Auto) Seg Neutrophils % 88.3 H Seg Neuts % (Manual) Lymphocytes % (Manual) Seg Neutrophils # 9.8 H Seg Neutrophils # Man Lymphocytes # (Manual) Monocytes # (Manual) D-Dimer ABG pH POC ABG pCO2 POC ABG pO2 ABG pO2 ABG HCO3 ABG O2 Saturation ABG Base Excess ABG Hemoglobin ABG Oxyhemoglobin ABG Potassium ABG Glucose VBG pH Oxyhemoglobin Sodium Potassium Chloride Carbon Dioxide BUN Creatinine Glucose 161 H POC Glucose Hemoglobin A1c Magnesium Ferritin AST Lactate Dehydrogenase C-Reactive Protein Albumin Arterial Blood Glucose Coronavirus (PCR) Positive A 08/12/20 08/12/20 08/12/20 06:29 06:29 06:29 WBC Lymph % (Auto) [place] % (Auto) Lymph # (Auto) [place] # (Auto) Seg Neutrophils % Seg Neuts % (Manual) Lymphocytes % (Manual) Seg Neutrophils # Seg Neutrophils # Man Lymphocytes # (Manual) Monocytes # (Manual) D-Dimer 830.34 H ABG pH POC ABG pCO2 POC ABG pO2 ABG pO2 ABG HCO3 ABG O2 Saturation ABG Base Excess ABG Hemoglobin ABG Oxyhemoglobin ABG Potassium ABG Glucose VBG pH Oxyhemoglobin Sodium Potassium Chloride Carbon Dioxide 31 H BUN Creatinine Glucose 138 H POC Glucose Hemoglobin A1c Magnesium Ferritin 572.6 H AST 42 H Lactate Dehydrogenase 706 H C-Reactive Protein 17.30 H Albumin 3.7 L Arterial Blood Glucose Coronavirus (PCR) 08/12/20 08/12/20 08/12/20 13:21 14:55 21:59 WBC Lymph % (Auto) [place] % (Auto) Lymph # (Auto) [place] # (Auto) Seg Neutrophils % Seg Neuts % (Manual) Lymphocytes % (Manual) Seg Neutrophils # Seg Neutrophils # Man Lymphocytes # (Manual) Monocytes # (Manual) D-Dimer ABG pH 7.315 L POC ABG pCO2 57.1 H POC ABG pO2 47.8 L ABG pO2 65.8 L ABG HCO3 31.4 H ABG O2 Saturation 91.7 L ABG Base Excess ABG Hemoglobin 19.3 H ABG Oxyhemoglobin ABG Potassium 4.9 H ABG Glucose 182 H VBG pH Oxyhemoglobin 89.7 L Sodium Potassium Chloride Carbon Dioxide BUN Creatinine Glucose POC Glucose 142 H Hemoglobin A1c Magnesium Ferritin AST Lactate Dehydrogenase C-Reactive Protein Albumin Arterial Blood Glucose 182 H Coronavirus (PCR) 08/13/20 08/13/20 08/13/20 05:35 05:35 12:11 WBC 12.0 H Lymph % (Auto) 8.1 L [place] % (Auto) Lymph # (Auto) 1.0 L [place] # (Auto) Seg Neutrophils % 88.0 H Seg Neuts % (Manual) Lymphocytes % (Manual) Seg Neutrophils # 10.5 H Seg Neutrophils # Man Lymphocytes # (Manual) Monocytes # (Manual) D-Dimer ABG pH POC ABG pCO2 POC ABG pO2 ABG pO2 ABG HCO3 ABG O2 Saturation ABG Base Excess ABG Hemoglobin ABG Oxyhemoglobin ABG Potassium ABG Glucose VBG pH Oxyhemoglobin Sodium Potassium 5.1 H Chloride Carbon Dioxide 31 H BUN 25 H Creatinine Glucose 174 H POC Glucose 154 H Hemoglobin A1c Magnesium Ferritin AST 41 H Lactate Dehydrogenase 996 H C-Reactive Protein Albumin 3.8 L Arterial Blood Glucose Coronavirus (PCR) 08/13/20 08/13/20 08/14/20 16:18 23:24 05:21 WBC 14.2 H Lymph % (Auto) 8.2 L [place] % (Auto) Lymph # (Auto) [place] # (Auto) 0.9 H Seg Neutrophils % 85.4 H Seg Neuts % (Manual) Lymphocytes % (Manual) Seg Neutrophils # 12.2 H Seg Neutrophils # Man Lymphocytes # (Manual) Monocytes # (Manual) D-Dimer ABG pH POC ABG pCO2 POC ABG pO2 ABG pO2 ABG HCO3 ABG O2 Saturation ABG Base Excess ABG Hemoglobin ABG Oxyhemoglobin ABG Potassium ABG Glucose VBG pH Oxyhemoglobin Sodium Potassium Chloride Carbon Dioxide BUN Creatinine Glucose POC Glucose 188 H 127 H Hemoglobin A1c Magnesium Ferritin AST Lactate Dehydrogenase C-Reactive Protein Albumin Arterial Blood Glucose Coronavirus (PCR) 08/14/20 08/14/20 08/14/20 05:21 05:21 05:21 WBC Lymph % (Auto) [place] % (Auto) Lymph # (Auto) [place] # (Auto) Seg Neutrophils % Seg Neuts % (Manual) Lymphocytes % (Manual) Seg Neutrophils # Seg Neutrophils # Man Lymphocytes # (Manual) Monocytes # (Manual) D-Dimer > 87123 H ABG pH POC ABG pCO2 POC ABG pO2 ABG pO2 ABG HCO3 ABG O2 Saturation ABG Base Excess ABG Hemoglobin ABG Oxyhemoglobin ABG Potassium ABG Glucose VBG pH Oxyhemoglobin Sodium Potassium Chloride Carbon Dioxide 32 H 33 H BUN 26 H 26 H Creatinine Glucose 152 H 156 H POC Glucose Hemoglobin A1c Magnesium Ferritin AST 53 H 54 H Lactate Dehydrogenase 1249 H C-Reactive Protein 9.90 H Albumin 3.7 L 3.7 L Arterial Blood Glucose Coronavirus (PCR) 08/14/20 08/14/20 08/14/20 05:21 05:58 08:23 WBC Lymph % (Auto) [place] % (Auto) Lymph # (Auto) [place] # (Auto) Seg Neutrophils % Seg Neuts % (Manual) Lymphocytes % (Manual) Seg Neutrophils # Seg Neutrophils # Man Lymphocytes # (Manual) Monocytes # (Manual) D-Dimer ABG pH POC ABG pCO2 POC ABG pO2 50.0 L ABG pO2 ABG HCO3 ABG O2 Saturation ABG Base Excess ABG Hemoglobin ABG Oxyhemoglobin 84.0 L ABG Potassium ABG Glucose 141 H VBG pH Oxyhemoglobin Sodium Potassium Chloride Carbon Dioxide BUN Creatinine Glucose POC Glucose 139 H Hemoglobin A1c Magnesium Ferritin 1198.0 H AST Lactate Dehydrogenase C-Reactive Protein Albumin Arterial Blood Glucose 141 H Coronavirus (PCR) 08/15/20 08/15/20 08/16/20 05:16 05:16 05:26 WBC 13.7 H 17.7 H Lymph % (Auto) 8.2 L [place] % (Auto) Lymph # (Auto) [place] # (Auto) Seg Neutrophils % 86.2 H Seg Neuts % (Manual) 91.0 H 88.0 H Lymphocytes % (Manual) 7.0 L 9.0 L Seg Neutrophils # 15.3 H Seg Neutrophils # Man 12.5 H 15.6 H Lymphocytes # (Manual) 1.0 L Monocytes # (Manual) D-Dimer ABG pH POC ABG pCO2 POC ABG pO2 ABG pO2 ABG HCO3 ABG O2 Saturation ABG Base Excess ABG Hemoglobin ABG Oxyhemoglobin ABG Potassium ABG Glucose VBG pH Oxyhemoglobin Sodium Potassium Chloride Carbon Dioxide 32 H BUN 29 H Creatinine Glucose 150 H POC Glucose Hemoglobin A1c Magnesium Ferritin AST Lactate Dehydrogenase 1150 H C-Reactive Protein Albumin 3.5 L Arterial Blood Glucose Coronavirus (PCR) 08/16/20 08/16/20 08/16/20 05:26 05:26 05:26 WBC Lymph % (Auto) [place] % (Auto) Lymph # (Auto) [place] # (Auto) Seg Neutrophils % Seg Neuts % (Manual) Lymphocytes % (Manual) Seg Neutrophils # Seg Neutrophils # Man Lymphocytes # (Manual) Monocytes # (Manual) D-Dimer > 02744 H ABG pH POC ABG pCO2 POC ABG pO2 ABG pO2 ABG HCO3 ABG O2 Saturation ABG Base Excess ABG Hemoglobin ABG Oxyhemoglobin ABG Potassium ABG Glucose VBG pH Oxyhemoglobin Sodium Potassium 5.2 H Chloride Carbon Dioxide BUN 25 H Creatinine Glucose 163 H POC Glucose Hemoglobin A1c Magnesium Ferritin 1013.0 H AST Lactate Dehydrogenase C-Reactive Protein 4.00 H Albumin 3.6 L Arterial Blood Glucose Coronavirus (PCR) 08/17/20 08/17/20 08/17/20 05:06 05:06 07:51 WBC 20.7 H Lymph % (Auto) [place] % (Auto) Lymph # (Auto) [place] # (Auto) Seg Neutrophils % Seg Neuts % (Manual) 86.0 H Lymphocytes % (Manual) 7.0 L Seg Neutrophils # Seg Neutrophils # Man 17.8 H Lymphocytes # (Manual) Monocytes # (Manual) 1.2 H D-Dimer ABG pH POC ABG pCO2 POC ABG pO2 ABG pO2 ABG HCO3 ABG O2 Saturation ABG Base Excess ABG Hemoglobin ABG Oxyhemoglobin ABG Potassium ABG Glucose VBG pH Oxyhemoglobin Sodium Potassium Chloride 96.5 L Carbon Dioxide 31 H BUN 29 H Creatinine Glucose 121 H POC Glucose 110 H Hemoglobin A1c Magnesium Ferritin AST 46 H Lactate Dehydrogenase C-Reactive Protein Albumin 3.7 L Arterial Blood Glucose Coronavirus (PCR) 08/17/20 08/17/20 08/18/20 11:42 21:45 05:13 WBC Lymph % (Auto) [place] % (Auto) Lymph # (Auto) [place] # (Auto) Seg Neutrophils % Seg Neuts % (Manual) Lymphocytes % (Manual) Seg Neutrophils # Seg Neutrophils # Man Lymphocytes # (Manual) Monocytes # (Manual) D-Dimer > 1000 H ABG pH POC ABG pCO2 POC ABG pO2 ABG pO2 ABG HCO3 ABG O2 Saturation ABG Base Excess ABG Hemoglobin ABG Oxyhemoglobin ABG Potassium ABG Glucose VBG pH Oxyhemoglobin Sodium Potassium Chloride Carbon Dioxide BUN Creatinine Glucose POC Glucose 122 H 143 H Hemoglobin A1c Magnesium Ferritin AST Lactate Dehydrogenase C-Reactive Protein Albumin Arterial Blood Glucose Coronavirus (PCR) 08/18/20 08/18/20 08/21/20 05:13 05:13 11:17 WBC Lymph % (Auto) [place] % (Auto) Lymph # (Auto) [place] # (Auto) Seg Neutrophils % Seg Neuts % (Manual) Lymphocytes % (Manual) Seg Neutrophils # Seg Neutrophils # Man Lymphocytes # (Manual) Monocytes # (Manual) D-Dimer ABG pH POC ABG pCO2 POC ABG pO2 ABG pO2 ABG HCO3 ABG O2 Saturation ABG Base Excess ABG Hemoglobin ABG Oxyhemoglobin ABG Potassium ABG Glucose VBG pH Oxyhemoglobin Sodium 133 L Potassium Chloride 94.7 L Carbon Dioxide BUN 33 H Creatinine Glucose 110 H POC Glucose 151 H Hemoglobin A1c Magnesium Ferritin 979.8 H AST 50 H Lactate Dehydrogenase C-Reactive Protein Albumin 3.7 L Arterial Blood Glucose Coronavirus (PCR) 08/21/20 08/21/20 08/21/20 13:39 13:39 15:55 WBC Lymph % (Auto) [place] % (Auto) Lymph # (Auto) [place] # (Auto) Seg Neutrophils % Seg Neuts % (Manual) Lymphocytes % (Manual) Seg Neutrophils # Seg Neutrophils # Man Lymphocytes # (Manual) Monocytes # (Manual) D-Dimer 6731.66 H ABG pH POC ABG pCO2 POC ABG pO2 ABG pO2 ABG HCO3 ABG O2 Saturation ABG Base Excess ABG Hemoglobin ABG Oxyhemoglobin ABG Potassium ABG Glucose VBG pH Oxyhemoglobin Sodium Potassium Chloride Carbon Dioxide BUN Creatinine Glucose POC Glucose Hemoglobin A1c Magnesium Ferritin 1019.0 H AST Lactate Dehydrogenase 1251 H C-Reactive Protein Albumin Arterial Blood Glucose Coronavirus (PCR) 08/22/20 08/22/20 08/25/20 05:23 05:23 12:30 WBC 24.7 H Lymph % (Auto) [place] % (Auto) Lymph # (Auto) [place] # (Auto) Seg Neutrophils % Seg Neuts % (Manual) Lymphocytes % (Manual) Seg Neutrophils # Seg Neutrophils # Man Lymphocytes # (Manual) Monocytes # (Manual) D-Dimer ABG pH 7.313 L POC ABG pCO2 POC ABG pO2 ABG pO2 76.2 L ABG HCO3 33.3 H ABG O2 Saturation 94.9 L ABG Base Excess 5.0 H ABG Hemoglobin 13.4 L ABG Oxyhemoglobin ABG Potassium ABG Glucose VBG pH Oxyhemoglobin 93.0 L Sodium 136 L Potassium Chloride 96.3 L Carbon Dioxide BUN 24 H Creatinine 0.7 L Glucose 115 H POC Glucose Hemoglobin A1c Magnesium Ferritin AST Lactate Dehydrogenase C-Reactive Protein Albumin Arterial Blood Glucose Coronavirus (PCR) 08/25/20 08/25/20 08/25/20 16:08 16:08 16:08 WBC Lymph % (Auto) [place] % (Auto) Lymph # (Auto) [place] # (Auto) Seg Neutrophils % Seg Neuts % (Manual) Lymphocytes % (Manual) Seg Neutrophils # Seg Neutrophils # Man Lymphocytes # (Manual) Monocytes # (Manual) D-Dimer 4487.76 H ABG pH POC ABG pCO2 POC ABG pO2 ABG pO2 ABG HCO3 ABG O2 Saturation ABG Base Excess ABG Hemoglobin ABG Oxyhemoglobin ABG Potassium ABG Glucose VBG pH Oxyhemoglobin Sodium Potassium Chloride Carbon Dioxide BUN Creatinine Glucose POC Glucose Hemoglobin A1c Magnesium Ferritin 961.4 H AST Lactate Dehydrogenase 959 H C-Reactive Protein Albumin Arterial Blood Glucose Coronavirus (PCR) 08/26/20 08/26/2008/31/21 07:11 07:11 10:56 WBC Lymph % (Auto) [place] % (Auto) 9.8 H Lymph # (Auto) [place] # (Auto) 1.0 H Seg Neutrophils % Seg Neuts % (Manual) Lymphocytes % (Manual) Seg Neutrophils # Seg Neutrophils # Man Lymphocytes # (Manual) Monocytes # (Manual) D-Dimer ABG pH POC ABG pCO2 POC ABG pO2 ABG pO2 ABG HCO3 ABG O2 Saturation ABG Base Excess ABG Hemoglobin ABG Oxyhemoglobin ABG Potassium ABG Glucose VBG pH Oxyhemoglobin Sodium 135 L Potassium Chloride 95.7 L 97.4 L Carbon Dioxide 33 H 34 H BUN Creatinine 0.6 L Glucose 109 H POC Glucose Hemoglobin A1c Magnesium 2.40 H Ferritin AST Lactate Dehydrogenase C-Reactive Protein Albumin Arterial Blood Glucose Coronavirus (PCR) Chest x-ray: report reviewed, image reviewed
[2020-09-03] MEDS: methylPREDNISolone Sod Succinate 40 MG/1 ML INJ IV SCH ×3 (06:28→22:05)
[2020-09-03] MEDS: ASCORBIC ACID 500 MG TAB PO SCH ×2 (09:07→22:05)
[2020-09-03] MEDS: FAMOTIDINE 20 MG TAB PO SCH ×2 (09:07→22:05)
[2020-09-03] MEDS: ZINC SULFATE 220 MG CAP PO SCH (09:07)
[2020-09-03] MEDS: APIXABAN 5 MG TAB PO SCH ×2 (09:07→22:05)
--- NOTE | 2020-09-03 22:22 | Progress Note ---
Assessment and Plan Imp: 1. Covid-19 2. Viral pneumonia 3. ARDS 4. Acute respiratory failure, hypoxia 5. Obesity Rec: 1. Cont. current care -> steroids, proning, Eliquis, weaning of HFNC to keep sats 88% or > 2. Further plans pending clinical course; complex decision-making Plan of care reviewed w/ patient, he understands/agrees Subjective Date of service: 09/03/20 Principal diagnosis: COVID Interval history: No events. SOB better but still on HFNC 40LPM and 100% FiO2. Active Medications Acetaminophen (Acetaminophen 325 Mg Tab) 650 mg PO Q4H PRN PRN Reason: Pain MILD(1-3)/Fever >100.5/MARTINEZ Last Admin: 08/31/20 00:34 Dose: 650 mg Documented by: Apixaban (Apixaban 5 Mg Tab) 5 mg PO Q12HR [facility]; Protocol Last Admin: 09/03/20 09:07 Dose: 5 mg Documented by: Artificial Tears (Hypromellose 0.5% Ophth Soln 15 Ml) 2 drops OU Q4H PRN PRN Reason: Dry Eye(s) Ascorbic Acid (Ascorbic Acid 500 Mg Tab) 500 mg PO BID [facility] Last Admin: 09/03/20 09:07 Dose: 500 mg Documented by: Famotidine (Famotidine 20 Mg Tab) 20 mg PO BID [facility] Last Admin: 09/03/20 09:07 Dose: 20 mg Documented by: Methylprednisolone Sodium Succinate (Methylprednisolone Sod Succinate 40 Mg/1 Ml Inj) 40 mg IV Q8HR [facility] Last Admin: 09/03/20 13:18 Dose: 40 mg Documented by: Metoclopramide HCl (Metoclopramide 10 Mg/2 Ml Inj) 10 mg IV Q6H PRN PRN Reason: Nausea And Vomiting Morphine Sulfate (Morphine 2 Mg/1 Ml Inj) 2 mg IV Q4H PRN PRN Reason: Pain, Moderate (4-6) Last Admin: 08/25/20 10:20 Dose: 2 mg Documented by: Ondansetron HCl (Ondansetron 4 Mg/2 Ml Inj) 4 mg IV Q8H PRN PRN Reason: Nausea And Vomiting Oxycodone/Acetaminophen (Oxycodone /Acetaminophen 5-325mg Tab) 1 tab PO Q6H PRN PRN Reason: Pain, Moderate (4-6) Last Admin: 08/25/20 21:08 Dose: 1 tab Documented by: Sodium Chloride (Sodium Chloride 0.9% 10 Ml Flush Syringe) 10 ml IV BID [facility] Last Admin: 09/03/20 09:07 Dose: 10 ml Documented by: Sodium Chloride (Sodium Chloride 0.9% 10 Ml Flush Syringe) 10 ml IV PRN PRN PRN Reason: LINE FLUSH Last Admin: 08/12/20 21:04 Dose: 10 ml Documented by: Zinc Sulfate (Zinc Sulfate 220 Mg Cap) 220 mg PO QDAY [facility] Last Admin: 09/03/20 09:07 Dose: 220 mg Documented by: Objective Vital Signs - 12hr 09/03/20 09/03/20 09/03/20 11:00 12:00 12:36 Temperature 98.6 F Pulse Rate 70 70 Respiratory 11 L 8 L Rate Blood Pressure 122/69 122/69 O2 Sat by Pulse 89 98 Oximetry 09/03/20 09/03/20 09/03/20 13:00 13:01 14:00 Temperature Pulse Rate 79 73 Respiratory 9 L 7 L Rate Blood Pressure 123/73 123/73 O2 Sat by Pulse 96 95 96 Oximetry 09/03/20 09/03/20 09/03/20 15:00 16:00 16:01 Temperature Pulse Rate 70 70 67 Respiratory 10 L 16 28 H Rate Blood Pressure 123/73 113/68 O2 Sat by Pulse 96 92 90 Oximetry 09/03/20 09/03/20 09/03/20 17:00 17:51 18:00 Temperature 98.4 F Pulse Rate 75 80 Respiratory 12 12 Rate Blood Pressure 127/83 124/77 O2 Sat by Pulse 95 Oximetry 09/03/20 09/03/20 09/03/20 18:20 18:30 19:00 Temperature Pulse Rate 76 78 80 Respiratory 10 L 12 11 L Rate Blood Pressure 124/77 124/77 124/77 O2 Sat by Pulse 93 92 91 Oximetry 09/03/20 09/03/20 19:51 20:25 Temperature 99.0 F Pulse Rate Respiratory Rate Blood Pressure O2 Sat by Pulse 96 Oximetry Constitutional: no acute distress, alert Eyes: non-icteric ENT: oropharynx moist Neck: supple Effort: normal Ascultation: Bilateral: clear Cardiovascular: regular rate and rhythm (no mrg) Gastrointestinal: normoactive bowel sounds, soft, non-distended Integumentary: normal Extremities: no cyanosis, no edema, pink and warm Neurologic: normal mental status, non-focal exam Psychiatric: mood appropriate, affect normal CBC and BMP: 08/26/20 07:11 08/31/20 10:56 ABG, PT/INR, D-dimer: ABG ABG pH 7.313 pH Units (7.350-7.450) L 08/25/20 12:30 POC ABG pCO2 46.9 mmHg (32.0-48.0) 08/14/20 08:23 ABG pCO2 67.2 mm Hg 08/25/20 12:30 POC ABG pO2 50.0 mmHg (83-108) L 08/14/20 08:23 ABG pO2 76.2 mm Hg (80.0-90.0) L 08/25/20 12:30 POC ABG HCO3 31.4 08/14/20 08:23 ABG O2 Saturation 94.9 % (95.0-99.0) L 08/25/20 12:30 PT/INR, D-dimer PT 12.6 Sec. (12.2-14.9) 08/10/20 08:29 INR 0.96 (0.87-1.13) 08/10/20 08:29 D-Dimer 4487.76 ng/mlDDU (0-234) H 08/25/20 16:08 Abnormal lab findings: Abnormal Labs 08/10/20 08/10/20 08/10/20 08:29 08:29 08:29 WBC Lymph % (Auto) [place] % (Auto) 8.4 H Lymph # (Auto) [place] # (Auto) Seg Neutrophils % Seg Neuts % (Manual) Lymphocytes % (Manual) Seg Neutrophils # Seg Neutrophils # Man Lymphocytes # (Manual) Monocytes # (Manual) D-Dimer ABG pH POC ABG pCO2 POC ABG pO2 ABG pO2 ABG HCO3 ABG O2 Saturation ABG Base Excess ABG Hemoglobin ABG Oxyhemoglobin ABG Potassium ABG Glucose VBG pH 7.303 L Oxyhemoglobin Sodium Potassium Chloride Carbon Dioxide BUN Creatinine Glucose 132 H POC Glucose Hemoglobin A1c Magnesium Ferritin AST Lactate Dehydrogenase C-Reactive Protein Albumin Arterial Blood Glucose Coronavirus (PCR) 08/11/20 08/11/20 08/11/20 05:39 05:39 05:39 WBC Lymph % (Auto) 12.5 L [place] % (Auto) Lymph # (Auto) [place] # (Auto) Seg Neutrophils % 84.2 H Seg Neuts % (Manual) Lymphocytes % (Manual) Seg Neutrophils # 9.1 H Seg Neutrophils # Man Lymphocytes # (Manual) Monocytes # (Manual) D-Dimer ABG pH POC ABG pCO2 POC ABG pO2 ABG pO2 ABG HCO3 ABG O2 Saturation ABG Base Excess ABG Hemoglobin ABG Oxyhemoglobin ABG Potassium ABG Glucose VBG pH Oxyhemoglobin Sodium Potassium Chloride Carbon Dioxide BUN Creatinine Glucose 125 H POC Glucose Hemoglobin A1c 6.1 H Magnesium Ferritin AST Lactate Dehydrogenase C-Reactive Protein Albumin Arterial Blood Glucose Coronavirus (PCR) 08/11/20 08/11/20 08/11/20 18:58 18:58 18:58 WBC Lymph % (Auto) [place] % (Auto) Lymph # (Auto) [place] # (Auto) Seg Neutrophils % Seg Neuts % (Manual) Lymphocytes % (Manual) Seg Neutrophils # Seg Neutrophils # Man Lymphocytes # (Manual) Monocytes # (Manual) D-Dimer 464.84 H ABG pH POC ABG pCO2 POC ABG pO2 ABG pO2 ABG HCO3 ABG O2 Saturation ABG Base Excess ABG Hemoglobin ABG Oxyhemoglobin ABG Potassium ABG Glucose VBG pH Oxyhemoglobin Sodium Potassium Chloride Carbon Dioxide BUN Creatinine Glucose POC Glucose Hemoglobin A1c Magnesium Ferritin 528.7 H AST Lactate Dehydrogenase 637 H C-Reactive Protein 11.30 H Albumin Arterial Blood Glucose Coronavirus (PCR) 08/11/20 08/11/20 08/12/20 19:08 Unknown 06:29 WBC 11.2 H Lymph % (Auto) 8.6 L [place] % (Auto) Lymph # (Auto) 1.0 L [place] # (Auto) Seg Neutrophils % 88.3 H Seg Neuts % (Manual) Lymphocytes % (Manual) Seg Neutrophils # 9.8 H Seg Neutrophils # Man Lymphocytes # (Manual) Monocytes # (Manual) D-Dimer ABG pH POC ABG pCO2 POC ABG pO2 ABG pO2 ABG HCO3 ABG O2 Saturation ABG Base Excess ABG Hemoglobin ABG Oxyhemoglobin ABG Potassium ABG Glucose VBG pH Oxyhemoglobin Sodium Potassium Chloride Carbon Dioxide BUN Creatinine Glucose 161 H POC Glucose Hemoglobin A1c Magnesium Ferritin AST Lactate Dehydrogenase C-Reactive Protein Albumin Arterial Blood Glucose Coronavirus (PCR) Positive A 08/12/20 08/12/20 08/12/20 06:29 06:29 06:29 WBC Lymph % (Auto) [place] % (Auto) Lymph # (Auto) [place] # (Auto) Seg Neutrophils % Seg Neuts % (Manual) Lymphocytes % (Manual) Seg Neutrophils # Seg Neutrophils # Man Lymphocytes # (Manual) Monocytes # (Manual) D-Dimer 830.34 H ABG pH POC ABG pCO2 POC ABG pO2 ABG pO2 ABG HCO3 ABG O2 Saturation ABG Base Excess ABG Hemoglobin ABG Oxyhemoglobin ABG Potassium ABG Glucose VBG pH Oxyhemoglobin Sodium Potassium Chloride Carbon Dioxide 31 H BUN Creatinine Glucose 138 H POC Glucose Hemoglobin A1c Magnesium Ferritin 572.6 H AST 42 H Lactate Dehydrogenase 706 H C-Reactive Protein 17.30 H Albumin 3.7 L Arterial Blood Glucose Coronavirus (PCR) 08/12/20 08/12/20 08/12/20 13:21 14:55 21:59 WBC Lymph % (Auto) [place] % (Auto) Lymph # (Auto) [place] # (Auto) Seg Neutrophils % Seg Neuts % (Manual) Lymphocytes % (Manual) Seg Neutrophils # Seg Neutrophils # Man Lymphocytes # (Manual) Monocytes # (Manual) D-Dimer ABG pH 7.315 L POC ABG pCO2 57.1 H POC ABG pO2 47.8 L ABG pO2 65.8 L ABG HCO3 31.4 H ABG O2 Saturation 91.7 L ABG Base Excess ABG Hemoglobin 19.3 H ABG Oxyhemoglobin ABG Potassium 4.9 H ABG Glucose 182 H VBG pH Oxyhemoglobin 89.7 L Sodium Potassium Chloride Carbon Dioxide BUN Creatinine Glucose POC Glucose 142 H Hemoglobin A1c Magnesium Ferritin AST Lactate Dehydrogenase C-Reactive Protein Albumin Arterial Blood Glucose 182 H Coronavirus (PCR) 08/13/20 08/13/20 08/13/20 05:35 05:35 12:11 WBC 12.0 H Lymph % (Auto) 8.1 L [place] % (Auto) Lymph # (Auto) 1.0 L [place] # (Auto) Seg Neutrophils % 88.0 H Seg Neuts % (Manual) Lymphocytes % (Manual) Seg Neutrophils # 10.5 H Seg Neutrophils # Man Lymphocytes # (Manual) Monocytes # (Manual) D-Dimer ABG pH POC ABG pCO2 POC ABG pO2 ABG pO2 ABG HCO3 ABG O2 Saturation ABG Base Excess ABG Hemoglobin ABG Oxyhemoglobin ABG Potassium ABG Glucose VBG pH Oxyhemoglobin Sodium Potassium 5.1 H Chloride Carbon Dioxide 31 H BUN 25 H Creatinine Glucose 174 H POC Glucose 154 H Hemoglobin A1c Magnesium Ferritin AST 41 H Lactate Dehydrogenase 996 H C-Reactive Protein Albumin 3.8 L Arterial Blood Glucose Coronavirus (PCR) 08/13/20 08/13/20 08/14/20 16:18 23:24 05:21 WBC 14.2 H Lymph % (Auto) 8.2 L [place] % (Auto) Lymph # (Auto) [place] # (Auto) 0.9 H Seg Neutrophils % 85.4 H Seg Neuts % (Manual) Lymphocytes % (Manual) Seg Neutrophils # 12.2 H Seg Neutrophils # Man Lymphocytes # (Manual) Monocytes # (Manual) D-Dimer ABG pH POC ABG pCO2 POC ABG pO2 ABG pO2 ABG HCO3 ABG O2 Saturation ABG Base Excess ABG Hemoglobin ABG Oxyhemoglobin ABG Potassium ABG Glucose VBG pH Oxyhemoglobin Sodium Potassium Chloride Carbon Dioxide BUN Creatinine Glucose POC Glucose 188 H 127 H Hemoglobin A1c Magnesium Ferritin AST Lactate Dehydrogenase C-Reactive Protein Albumin Arterial Blood Glucose Coronavirus (PCR) 08/14/20 08/14/20 08/14/20 05:21 05:21 05:21 WBC Lymph % (Auto) [place] % (Auto) Lymph # (Auto) [place] # (Auto) Seg Neutrophils % Seg Neuts % (Manual) Lymphocytes % (Manual) Seg Neutrophils # Seg Neutrophils # Man Lymphocytes # (Manual) Monocytes # (Manual) D-Dimer > 19657 H ABG pH POC ABG pCO2 POC ABG pO2 ABG pO2 ABG HCO3 ABG O2 Saturation ABG Base Excess ABG Hemoglobin ABG Oxyhemoglobin ABG Potassium ABG Glucose VBG pH Oxyhemoglobin Sodium Potassium Chloride Carbon Dioxide 32 H 33 H BUN 26 H 26 H Creatinine Glucose 152 H 156 H POC Glucose Hemoglobin A1c Magnesium Ferritin AST 53 H 54 H Lactate Dehydrogenase 1249 H C-Reactive Protein 9.90 H Albumin 3.7 L 3.7 L Arterial Blood Glucose Coronavirus (PCR) 08/14/20 08/14/20 08/14/20 05:21 05:58 08:23 WBC Lymph % (Auto) [place] % (Auto) Lymph # (Auto) [place] # (Auto) Seg Neutrophils % Seg Neuts % (Manual) Lymphocytes % (Manual) Seg Neutrophils # Seg Neutrophils # Man Lymphocytes # (Manual) Monocytes # (Manual) D-Dimer ABG pH POC ABG pCO2 POC ABG pO2 50.0 L ABG pO2 ABG HCO3 ABG O2 Saturation ABG Base Excess ABG Hemoglobin ABG Oxyhemoglobin 84.0 L ABG Potassium ABG Glucose 141 H VBG pH Oxyhemoglobin Sodium Potassium Chloride Carbon Dioxide BUN Creatinine Glucose POC Glucose 139 H Hemoglobin A1c Magnesium Ferritin 1198.0 H AST Lactate Dehydrogenase C-Reactive Protein Albumin Arterial Blood Glucose 141 H Coronavirus (PCR) 08/15/20 08/15/20 08/16/20 05:16 05:16 05:26 WBC 13.7 H 17.7 H Lymph % (Auto) 8.2 L [place] % (Auto) Lymph # (Auto) [place] # (Auto) Seg Neutrophils % 86.2 H Seg Neuts % (Manual) 91.0 H 88.0 H Lymphocytes % (Manual) 7.0 L 9.0 L Seg Neutrophils # 15.3 H Seg Neutrophils # Man 12.5 H 15.6 H Lymphocytes # (Manual) 1.0 L Monocytes # (Manual) D-Dimer ABG pH POC ABG pCO2 POC ABG pO2 ABG pO2 ABG HCO3 ABG O2 Saturation ABG Base Excess ABG Hemoglobin ABG Oxyhemoglobin ABG Potassium ABG Glucose VBG pH Oxyhemoglobin Sodium Potassium Chloride Carbon Dioxide 32 H BUN 29 H Creatinine Glucose 150 H POC Glucose Hemoglobin A1c Magnesium Ferritin AST Lactate Dehydrogenase 1150 H C-Reactive Protein Albumin 3.5 L Arterial Blood Glucose Coronavirus (PCR) 08/16/20 08/16/20 08/16/20 05:26 05:26 05:26 WBC Lymph % (Auto) [place] % (Auto) Lymph # (Auto) [place] # (Auto) Seg Neutrophils % Seg Neuts % (Manual) Lymphocytes % (Manual) Seg Neutrophils # Seg Neutrophils # Man Lymphocytes # (Manual) Monocytes # (Manual) D-Dimer > 27152 H ABG pH POC ABG pCO2 POC ABG pO2 ABG pO2 ABG HCO3 ABG O2 Saturation ABG Base Excess ABG Hemoglobin ABG Oxyhemoglobin ABG Potassium ABG Glucose VBG pH Oxyhemoglobin Sodium Potassium 5.2 H Chloride Carbon Dioxide BUN 25 H Creatinine Glucose 163 H POC Glucose Hemoglobin A1c Magnesium Ferritin 1013.0 H AST Lactate Dehydrogenase C-Reactive Protein 4.00 H Albumin 3.6 L Arterial Blood Glucose Coronavirus (PCR) 08/17/20 08/17/20 08/17/20 05:06 05:06 07:51 WBC 20.7 H Lymph % (Auto) [place] % (Auto) Lymph # (Auto) [place] # (Auto) Seg Neutrophils % Seg Neuts % (Manual) 86.0 H Lymphocytes % (Manual) 7.0 L Seg Neutrophils # Seg Neutrophils # Man 17.8 H Lymphocytes # (Manual) Monocytes # (Manual) 1.2 H D-Dimer ABG pH POC ABG pCO2 POC ABG pO2 ABG pO2 ABG HCO3 ABG O2 Saturation ABG Base Excess ABG Hemoglobin ABG Oxyhemoglobin ABG Potassium ABG Glucose VBG pH Oxyhemoglobin Sodium Potassium Chloride 96.5 L Carbon Dioxide 31 H BUN 29 H Creatinine Glucose 121 H POC Glucose 110 H Hemoglobin A1c Magnesium Ferritin AST 46 H Lactate Dehydrogenase C-Reactive Protein Albumin 3.7 L Arterial Blood Glucose Coronavirus (PCR) 08/17/20 08/17/20 08/18/20 11:42 21:45 05:13 WBC Lymph % (Auto) [place] % (Auto) Lymph # (Auto) [place] # (Auto) Seg Neutrophils % Seg Neuts % (Manual) Lymphocytes % (Manual) Seg Neutrophils # Seg Neutrophils # Man Lymphocytes # (Manual) Monocytes # (Manual) D-Dimer > 1000 H ABG pH POC ABG pCO2 POC ABG pO2 ABG pO2 ABG HCO3 ABG O2 Saturation ABG Base Excess ABG Hemoglobin ABG Oxyhemoglobin ABG Potassium ABG Glucose VBG pH Oxyhemoglobin Sodium Potassium Chloride Carbon Dioxide BUN Creatinine Glucose POC Glucose 122 H 143 H Hemoglobin A1c Magnesium Ferritin AST Lactate Dehydrogenase C-Reactive Protein Albumin Arterial Blood Glucose Coronavirus (PCR) 08/18/20 08/18/20 08/21/20 05:13 05:13 11:17 WBC Lymph % (Auto) [place] % (Auto) Lymph # (Auto) [place] # (Auto) Seg Neutrophils % Seg Neuts % (Manual) Lymphocytes % (Manual) Seg Neutrophils # Seg Neutrophils # Man Lymphocytes # (Manual) Monocytes # (Manual) D-Dimer ABG pH POC ABG pCO2 POC ABG pO2 ABG pO2 ABG HCO3 ABG O2 Saturation ABG Base Excess ABG Hemoglobin ABG Oxyhemoglobin ABG Potassium ABG Glucose VBG pH Oxyhemoglobin Sodium 133 L Potassium Chloride 94.7 L Carbon Dioxide BUN 33 H Creatinine Glucose 110 H POC Glucose 151 H Hemoglobin A1c Magnesium Ferritin 979.8 H AST 50 H Lactate Dehydrogenase C-Reactive Protein Albumin 3.7 L Arterial Blood Glucose Coronavirus (PCR) 08/21/20 08/21/20 08/21/20 13:39 13:39 15:55 WBC Lymph % (Auto) [place] % (Auto) Lymph # (Auto) [place] # (Auto) Seg Neutrophils % Seg Neuts % (Manual) Lymphocytes % (Manual) Seg Neutrophils # Seg Neutrophils # Man Lymphocytes # (Manual) Monocytes # (Manual) D-Dimer 6731.66 H ABG pH POC ABG pCO2 POC ABG pO2 ABG pO2 ABG HCO3 ABG O2 Saturation ABG Base Excess ABG Hemoglobin ABG Oxyhemoglobin ABG Potassium ABG Glucose VBG pH Oxyhemoglobin Sodium Potassium Chloride Carbon Dioxide BUN Creatinine Glucose POC Glucose Hemoglobin A1c Magnesium Ferritin 1019.0 H AST Lactate Dehydrogenase 1251 H C-Reactive Protein Albumin Arterial Blood Glucose Coronavirus (PCR) 08/22/20 08/22/20 08/25/20 05:23 05:23 12:30 WBC 24.7 H Lymph % (Auto) [place] % (Auto) Lymph # (Auto) [place] # (Auto) Seg Neutrophils % Seg Neuts % (Manual) Lymphocytes % (Manual) Seg Neutrophils # Seg Neutrophils # Man Lymphocytes # (Manual) Monocytes # (Manual) D-Dimer ABG pH 7.313 L POC ABG pCO2 POC ABG pO2 ABG pO2 76.2 L ABG HCO3 33.3 H ABG O2 Saturation 94.9 L ABG Base Excess 5.0 H ABG Hemoglobin 13.4 L ABG Oxyhemoglobin ABG Potassium ABG Glucose VBG pH Oxyhemoglobin 93.0 L Sodium 136 L Potassium Chloride 96.3 L Carbon Dioxide BUN 24 H Creatinine 0.7 L Glucose 115 H POC Glucose Hemoglobin A1c Magnesium Ferritin AST Lactate Dehydrogenase C-Reactive Protein Albumin Arterial Blood Glucose Coronavirus (PCR) 08/25/20 08/25/20 08/25/20 16:08 16:08 16:08 WBC Lymph % (Auto) [place] % (Auto) Lymph # (Auto) [place] # (Auto) Seg Neutrophils % Seg Neuts % (Manual) Lymphocytes % (Manual) Seg Neutrophils # Seg Neutrophils # Man Lymphocytes # (Manual) Monocytes # (Manual) D-Dimer 4487.76 H ABG pH POC ABG pCO2 POC ABG pO2 ABG pO2 ABG HCO3 ABG O2 Saturation ABG Base Excess ABG Hemoglobin ABG Oxyhemoglobin ABG Potassium ABG Glucose VBG pH Oxyhemoglobin Sodium Potassium Chloride Carbon Dioxide BUN Creatinine Glucose POC Glucose Hemoglobin A1c Magnesium Ferritin 961.4 H AST Lactate Dehydrogenase 959 H C-Reactive Protein Albumin Arterial Blood Glucose Coronavirus (PCR) 08/26/20 08/26/20 08/31/20 07:11 07:11 10:56 WBC Lymph % (Auto) [place] % (Auto) 9.8 H Lymph # (Auto) [place] # (Auto) 1.0 H Seg Neutrophils % Seg Neuts % (Manual) Lymphocytes % (Manual) Seg Neutrophils # Seg Neutrophils # Man Lymphocytes # (Manual) Monocytes # (Manual) D-Dimer ABG pH POC ABG pCO2 POC ABG pO2 ABG pO2 ABG HCO3 ABG O2 Saturation ABG Base Excess ABG Hemoglobin ABG Oxyhemoglobin ABG Potassium ABG Glucose VBG pH Oxyhemoglobin Sodium 135 L Potassium Chloride 95.7 L 97.4 L Carbon Dioxide 33 H 34 H BUN Creatinine 0.6 L Glucose 109 H POC Glucose Hemoglobin A1c Magnesium 2.40 H Ferritin AST Lactate Dehydrogenase C-Reactive Protein Albumin Arterial Blood Glucose Coronavirus (PCR) Chest x-ray: report reviewed, image reviewed
[2020-09-04] MEDS: methylPREDNISolone Sod Succinate 40 MG/1 ML INJ IV SCH ×3 (05:59→22:16)
[2020-09-04] MEDS: APIXABAN 5 MG TAB PO SCH ×2 (10:21→22:16)
[2020-09-04] MEDS: ZINC SULFATE 220 MG CAP PO SCH (10:22)
[2020-09-04] MEDS: FAMOTIDINE 20 MG TAB PO SCH ×2 (10:22→22:16)
[2020-09-04] MEDS: ASCORBIC ACID 500 MG TAB PO SCH ×2 (10:22→22:16)
--- NOTE | 2020-09-04 14:03 | Progress Note ---
Assessment and Plan 30 y/o morbidly obese male with acute respiratory failure secondary to COVID 19 pneumonia. now found to have DVT in lower ext. 09/04/20: Will continue steroids given mild improvement. Prone as much as tolerated. Lasix again today. Bipap at night. 09/01/20: Continue steroids at least through the weekend. Continue to prone as much as tolerated. Lasix 40mg IV again today. BIpap QHS. Very very guarded prognosis. He has been hanging out in the high 80's low 90's for weeks now. 08/31/20: Going to place patient back on steroids. Will do solumedrol 40q8 at least for the next 48-72 hours to see if this helps. Checked stat labs this morning to evaluate renal function and potassium levels before anymore lasix is given. Continue to prone as tolerated and bipap QHS. Prognosis remains guarded. 08/30/20: Proning is a must. Will give lasix 40 today. Continue anticoagulation. Prognosis remians very very guarded. Avoid intubation at all costs. 08/29/20: Continue to prone as tolerated during the day and sleep prone at [facility]. HOld on lasix today. Continue anticoagulation. Guarded prognosis. 08/28/20: Continue to prone as tolerated. Today will give lasix 40 to see if this helps. Will discuss with cardiology about echo. Clinically patient looks the same and not in distress. If PE is present, likely not large enough for EKOS. Given his high O2 requirement, prefer not to try CTA at this time as I feel the risks outweigh the benefits. 08/27/20: Long discussion with patient again at bedside today. May need to consider repeat ECHO to look for right heart strain. We know he had VTE in the lower ext but never had to oppurtunity to truly rule him out for PE. Cousin who is an RATTLING MACHINE TENDER in outpatient setting at [employer] asked some questions so I spoke with her via the phone. She is going to help encourage proning. Will give more lasix today. Very very guarded prognosis. 08/26/20: Pulm status is more stable today compared to yesterday. Continue bipap PRN and QHS. Will give IV lasix again today. Prognosis still remains very guarded. 08/25/20: Placed back on bipap this am secondary to desaturations and lower mental state than before. Patient has been stable and making improvements but now seems to be headed in the wrong direction. Will monitor very closely as he is a high risk for intubation and bad outcomes. Very very guarded prognosis. Will give lasix today. 08/24/20: Encouraged more proning. Continue BIpap QHS and PRN. unfortunately, no funding, patient would be a good LTACH candidate as he will likely take a long time to wean from HFNC. 08/23/20: No new recs. Proning is metcalf. Will continue to follow. Appreciate ID recs and help. 08/22/20: Bipap PRN and QHS. Will given lasix today. Prone as tolerated. PT continues. Slight improvement. Will continue to follow. 08/21/20: Bipap PRN and QHS. Hold on lasix today. Continue to prone as much as tolerated. Will order PT consult. 08/18/20: Bipap pRN and QHS. More lasix today. Prone as tolerated during the day and sleep prone at night. Continue to try to hold off on intubation. Guarded prognosis. 08/17/20: Continue anticoagulation. Still trying to prevent intubation however will do electively if and when needed to prevent and emergent situation as patient will likely be difficult given neck and body habitus. Continue prone as tolerated. Steroids and remdesivir. 08/16/20: Anticoagulation. Prone as tolerated. Wean bipap as tolerated. Prognosis remains guarded. Trying to prevent intubation given poor outcomes associated with mechanically ventilated obese COVID patients. 08/15/20: Continue therapeutic anticoagulation. No current indication for vascular consult given no evidence of right heart strain on echo. CT would only be beneficial if we thought it would show large enough clot to warrant EKOS and with no evidence of strain, I doubt that will be the case. Continue proning as much as tolerated. Spoke with mother over the phone to update her. Patient also got actemra on yesterday as well. Prognosis remains guarded 08/14/20: Will accept sats in the mid 80's as long as mental state and work of breathing do not change. AGree with lasix therapy. Found to have large DVT on right. Spoke with [facility] and asked them to order stat echo to look for right heart strain, and if present may need to consider echos. Await echo before vascular consult. Prone if possible. Long discussion with mother on phone. Gave her a list of the meds he is on and what our current plan is. Also very candid with her and son at bedside that the mortality rate with COVID is very very high. 08/13/20: Lasix again today. Continue to alternate between HFNC with NRB and bipap. Prognosis is very very guarded. Very very guarded to poor prognosis given CXR appearance, and body habitus, along with rapid decline in self sustaning oxygen levels. Agree with lasix and increase in steroids. Must prone. Very high likelihood for mechanical ventilation which would carry a high mortality for patient. Will continue to follow. No additional IVF's unless indicated. Subjective Date of service: 09/04/20 Principal diagnosis: COVID Interval history: Down to 80% on Vapotherm Objective Vital Signs - 12hr 09/04/20 09/04/20 09/04/20 03:00 04:00 05:00 Temperature 98.8 F Pulse Rate 78 67 75 Respiratory 15 10 L 8 L Rate Blood Pressure 122/69 122/69 122/69 O2 Sat by Pulse 97 95 99 Oximetry 09/04/20 09/04/20 09/04/20 06:00 06:50 07:00 Temperature Pulse Rate 76 70 Respiratory 11 L 8 L Rate Blood Pressure 122/69 122/69 O2 Sat by Pulse 98 96 98 Oximetry 09/04/20 09/04/20 09/04/20 08:00 09:00 10:00 Temperature Pulse Rate 68 65 93 H Respiratory 8 L 9 L 8 L Rate Blood Pressure O2 Sat by Pulse 99 95 96 Oximetry 09/04/20 09/04/20 09/04/20 11:00 12:00 13:00 Temperature Pulse Rate 84 81 92 H Respiratory 15 13 14 Rate Blood Pressure 117/76 106/42 111/55 O2 Sat by Pulse 91 87 91 Oximetry Constitutional: no acute distress, alert Eyes: non-icteric ENT: oropharynx moist Neck: supple Effort: normal Ascultation: Bilateral: clear Cardiovascular: regular rate and rhythm (no mrg) Gastrointestinal: normoactive bowel sounds, soft, non-distended Integumentary: normal Extremities: no cyanosis, no edema, pink and warm Neurologic: normal mental status, non-focal exam Psychiatric: mood appropriate, affect normal CBC and BMP: 08/26/20 07:11 08/31/20 10:56 ABG, PT/INR, D-dimer: ABG ABG pH 7.313 pH Units (7.350-7.450) L 08/25/20 12:30 POC ABG pCO2 46.9 mmHg (32.0-48.0) 08/14/20 08:23 ABG pCO2 67.2 mm Hg 08/25/20 12:30 POC ABG pO2 50.0 mmHg (83-108) L 08/14/20 08:23 ABG pO2 76.2 mm Hg (80.0-90.0) L 08/25/20 12:30 POC ABG HCO3 31.4 08/14/20 08:23 ABG O2 Saturation 94.9 % (95.0-99.0) L 08/25/20 12:30 PT/INR, D-dimer PT 12.6 Sec. (12.2-14.9) 08/10/20 08:29 INR 0.96 (0.87-1.13) 08/10/20 08:29 D-Dimer 4487.76 ng/mlDDU (0-234) H 08/25/20 16:08 Abnormal lab findings: Abnormal Labs 08/10/20 08/10/20 08/10/20 08:29 08:29 08:29 WBC Lymph % (Auto) Hopkins % (Auto) 8.4 H Lymph # (Auto) Hopkins # (Auto) Seg Neutrophils % Seg Neuts % (Manual) Lymphocytes % (Manual) Seg Neutrophils # Seg Neutrophils # Man Lymphocytes # (Manual) Monocytes # (Manual) D-Dimer ABG pH POC ABG pCO2 POC ABG pO2 ABG pO2 ABG HCO3 ABG O2 Saturation ABG Base Excess ABG Hemoglobin ABG Oxyhemoglobin ABG Potassium ABG Glucose VBG pH 7.303 L Oxyhemoglobin Sodium Potassium Chloride Carbon Dioxide BUN Creatinine Glucose 132 H POC Glucose Hemoglobin A1c Magnesium Ferritin AST Lactate Dehydrogenase C-Reactive Protein Albumin Arterial Blood Glucose Coronavirus (PCR) 08/11/20 08/11/20 08/11/20 05:39 05:39 05:39 WBC Lymph % (Auto) 12.5 L Hopkins % (Auto) Lymph # (Auto) Hopkins # (Auto) Seg Neutrophils % 84.2 H Seg Neuts % (Manual) Lymphocytes % (Manual) Seg Neutrophils # 9.1 H Seg Neutrophils # Man Lymphocytes # (Manual) Monocytes # (Manual) D-Dimer ABG pH POC ABG pCO2 POC ABG pO2 ABG pO2 ABG HCO3 ABG O2 Saturation ABG Base Excess ABG Hemoglobin ABG Oxyhemoglobin ABG Potassium ABG Glucose VBG pH Oxyhemoglobin Sodium Potassium Chloride Carbon Dioxide BUN Creatinine Glucose 125 H POC Glucose Hemoglobin A1c 6.1 H Magnesium Ferritin AST Lactate Dehydrogenase C-Reactive Protein Albumin Arterial Blood Glucose Coronavirus (PCR) 08/11/20 08/11/20 08/11/20 18:58 18:58 18:58 WBC Lymph % (Auto) Hopkins % (Auto) Lymph # (Auto) Hopkins # (Auto) Seg Neutrophils % Seg Neuts % (Manual) Lymphocytes % (Manual) Seg Neutrophils # Seg Neutrophils # Man Lymphocytes # (Manual) Monocytes # (Manual) D-Dimer 464.84 H ABG pH POC ABG pCO2 POC ABG pO2 ABG pO2 ABG HCO3 ABG O2 Saturation ABG Base Excess ABG Hemoglobin ABG Oxyhemoglobin ABG Potassium ABG Glucose VBG pH Oxyhemoglobin Sodium Potassium Chloride Carbon Dioxide BUN Creatinine Glucose POC Glucose Hemoglobin A1c Magnesium Ferritin 528.7 H AST Lactate Dehydrogenase 637 H C-Reactive Protein 11.30 H Albumin Arterial Blood Glucose Coronavirus (PCR) 08/11/20 08/11/20 08/12/20 19:08 Unknown 06:29 WBC 11.2 H Lymph % (Auto) 8.6 L Hopkins % (Auto) Lymph # (Auto) 1.0 L Hopkins # (Auto) Seg Neutrophils % 88.3 H Seg Neuts % (Manual) Lymphocytes % (Manual) Seg Neutrophils # 9.8 H Seg Neutrophils # Man Lymphocytes # (Manual) Monocytes # (Manual) D-Dimer ABG pH POC ABG pCO2 POC ABG pO2 ABG pO2 ABG HCO3 ABG O2 Saturation ABG Base Excess ABG Hemoglobin ABG Oxyhemoglobin ABG Potassium ABG Glucose VBG pH Oxyhemoglobin Sodium Potassium Chloride Carbon Dioxide BUN Creatinine Glucose 161 H POC Glucose Hemoglobin A1c Magnesium Ferritin AST Lactate Dehydrogenase C-Reactive Protein Albumin Arterial Blood Glucose Coronavirus (PCR) Positive A 08/12/20 08/12/20 08/12/20 06:29 06:29 06:29 WBC Lymph % (Auto) Hopkins % (Auto) Lymph # (Auto) Hopkins # (Auto) Seg Neutrophils % Seg Neuts % (Manual) Lymphocytes % (Manual) Seg Neutrophils # Seg Neutrophils # Man Lymphocytes # (Manual) Monocytes # (Manual) D-Dimer 830.34 H ABG pH POC ABG pCO2 POC ABG pO2 ABG pO2 ABG HCO3 ABG O2 Saturation ABG Base Excess ABG Hemoglobin ABG Oxyhemoglobin ABG Potassium ABG Glucose VBG pH Oxyhemoglobin Sodium Potassium Chloride Carbon Dioxide 31 H BUN Creatinine Glucose 138 H POC Glucose Hemoglobin A1c Magnesium Ferritin 572.6 H AST 42 H Lactate Dehydrogenase 706 H C-Reactive Protein 17.30 H Albumin 3.7 L Arterial Blood Glucose Coronavirus (PCR) 08/12/20 08/12/20 08/12/20 13:21 14:55 21:59 WBC Lymph % (Auto) Hopkins % (Auto) Lymph # (Auto) Hopkins # (Auto) Seg Neutrophils % Seg Neuts % (Manual) Lymphocytes % (Manual) Seg Neutrophils # Seg Neutrophils # Man Lymphocytes # (Manual) Monocytes # (Manual) D-Dimer ABG pH 7.315 L POC ABG pCO2 57.1 H POC ABG pO2 47.8 L ABG pO2 65.8 L ABG HCO3 31.4 H ABG O2 Saturation 91.7 L ABG Base Excess ABG Hemoglobin 19.3 H ABG Oxyhemoglobin ABG Potassium 4.9 H ABG Glucose 182 H VBG pH Oxyhemoglobin 89.7 L Sodium Potassium Chloride Carbon Dioxide BUN Creatinine Glucose POC Glucose 142 H Hemoglobin A1c Magnesium Ferritin AST Lactate Dehydrogenase C-Reactive Protein Albumin Arterial Blood Glucose 182 H Coronavirus (PCR) 08/13/20 08/13/20 08/13/20 05:35 05:35 12:11 WBC 12.0 H Lymph % (Auto) 8.1 L Hopkins % (Auto) Lymph # (Auto) 1.0 L Hopkins # (Auto) Seg Neutrophils % 88.0 H Seg Neuts % (Manual) Lymphocytes % (Manual) Seg Neutrophils # 10.5 H Seg Neutrophils # Man Lymphocytes # (Manual) Monocytes # (Manual) D-Dimer ABG pH POC ABG pCO2 POC ABG pO2 ABG pO2 ABG HCO3 ABG O2 Saturation ABG Base Excess ABG Hemoglobin ABG Oxyhemoglobin ABG Potassium ABG Glucose VBG pH Oxyhemoglobin Sodium Potassium 5.1 H Chloride Carbon Dioxide 31 H BUN 25 H Creatinine Glucose 174 H POC Glucose 154 H Hemoglobin A1c Magnesium Ferritin AST 41 H Lactate Dehydrogenase 996 H C-Reactive Protein Albumin 3.8 L Arterial Blood Glucose Coronavirus (PCR) 08/13/20 08/13/20 08/14/20 16:18 23:24 05:21 WBC 14.2 H Lymph % (Auto) 8.2 L Hopkins % (Auto) Lymph # (Auto) Hopkins # (Auto) 0.9 H Seg Neutrophils % 85.4 H Seg Neuts % (Manual) Lymphocytes % (Manual) Seg Neutrophils # 12.2 H Seg Neutrophils # Man Lymphocytes # (Manual) Monocytes # (Manual) D-Dimer ABG pH POC ABG pCO2 POC ABG pO2 ABG pO2 ABG HCO3 ABG O2 Saturation ABG Base Excess ABG Hemoglobin ABG Oxyhemoglobin ABG Potassium ABG Glucose VBG pH Oxyhemoglobin Sodium Potassium Chloride Carbon Dioxide BUN Creatinine Glucose POC Glucose 188 H 127 H Hemoglobin A1c Magnesium Ferritin AST Lactate Dehydrogenase C-Reactive Protein Albumin Arterial Blood Glucose Coronavirus (PCR) 08/14/20 08/14/20 08/14/20 05:21 05:21 05:21 WBC Lymph % (Auto) Hopkins % (Auto) Lymph # (Auto) Hopkins # (Auto) Seg Neutrophils % Seg Neuts % (Manual) Lymphocytes % (Manual) Seg Neutrophils # Seg Neutrophils # Man Lymphocytes # (Manual) Monocytes # (Manual) D-Dimer > 93165 H ABG pH POC ABG pCO2 POC ABG pO2 ABG pO2 ABG HCO3 ABG O2 Saturation ABG Base Excess ABG Hemoglobin ABG Oxyhemoglobin ABG Potassium ABG Glucose VBG pH Oxyhemoglobin Sodium Potassium Chloride Carbon Dioxide 32 H 33 H BUN 26 H 26 H Creatinine Glucose 152 H 156 H POC Glucose Hemoglobin A1c Magnesium Ferritin AST 53 H 54 H Lactate Dehydrogenase 1249 H C-Reactive Protein 9.90 H Albumin 3.7 L 3.7 L Arterial Blood Glucose Coronavirus (PCR) 08/14/20 08/14/20 08/14/20 05:21 05:58 08:23 WBC Lymph % (Auto) Hopkins % (Auto) Lymph # (Auto) Hopkins # (Auto) Seg Neutrophils % Seg Neuts % (Manual) Lymphocytes % (Manual) Seg Neutrophils # Seg Neutrophils # Man Lymphocytes # (Manual) Monocytes # (Manual) D-Dimer ABG pH POC ABG pCO2 POC ABG pO2 50.0 L ABG pO2 ABG HCO3 ABG O2 Saturation ABG Base Excess ABG Hemoglobin ABG Oxyhemoglobin 84.0 L ABG Potassium ABG Glucose 141 H VBG pH Oxyhemoglobin Sodium Potassium Chloride Carbon Dioxide BUN Creatinine Glucose POC Glucose 139 H Hemoglobin A1c Magnesium Ferritin 1198.0 H AST Lactate Dehydrogenase C-Reactive Protein Albumin Arterial Blood Glucose 141 H Coronavirus (PCR) 08/15/20 08/15/20 08/16/20 05:16 05:16 05:26 WBC 13.7 H 17.7 H Lymph % (Auto) 8.2 L Hopkins % (Auto) Lymph # (Auto) Hopkins # (Auto) Seg Neutrophils % 86.2 H Seg Neuts % (Manual) 91.0 H 88.0 H Lymphocytes % (Manual) 7.0 L 9.0 L Seg Neutrophils # 15.3 H Seg Neutrophils # Man 12.5 H 15.6 H Lymphocytes # (Manual) 1.0 L Monocytes # (Manual) D-Dimer ABG pH POC ABG pCO2 POC ABG pO2 ABG pO2 ABG HCO3 ABG O2 Saturation ABG Base Excess ABG Hemoglobin ABG Oxyhemoglobin ABG Potassium ABG Glucose VBG pH Oxyhemoglobin Sodium Potassium Chloride Carbon Dioxide 32 H BUN 29 H Creatinine Glucose 150 H POC Glucose Hemoglobin A1c Magnesium Ferritin AST Lactate Dehydrogenase 1150 H C-Reactive Protein Albumin 3.5 L Arterial Blood Glucose Coronavirus (PCR) 08/16/20 08/16/20 08/16/20 05:26 05:26 05:26 WBC Lymph % (Auto) Hopkins % (Auto) Lymph # (Auto) Hopkins # (Auto) Seg Neutrophils % Seg Neuts % (Manual) Lymphocytes % (Manual) Seg Neutrophils # Seg Neutrophils # Man Lymphocytes # (Manual) Monocytes # (Manual) D-Dimer > 10056 H ABG pH POC ABG pCO2 POC ABG pO2 ABG pO2 ABG HCO3 ABG O2 Saturation ABG Base Excess ABG Hemoglobin ABG Oxyhemoglobin ABG Potassium ABG Glucose VBG pH Oxyhemoglobin Sodium Potassium 5.2 H Chloride Carbon Dioxide BUN 25 H Creatinine Glucose 163 H POC Glucose Hemoglobin A1c Magnesium Ferritin 1013.0 H AST Lactate Dehydrogenase C-Reactive Protein 4.00 H Albumin 3.6 L Arterial Blood Glucose Coronavirus (PCR) 08/17/20 08/17/20 08/17/20 05:06 05:06 07:51 WBC 20.7 H Lymph % (Auto) Hopkins % (Auto) Lymph # (Auto) Hopkins # (Auto) Seg Neutrophils % Seg Neuts % (Manual) 86.0 H Lymphocytes % (Manual) 7.0 L Seg Neutrophils # Seg Neutrophils # Man 17.8 H Lymphocytes # (Manual) Monocytes # (Manual) 1.2 H D-Dimer ABG pH POC ABG pCO2 POC ABG pO2 ABG pO2 ABG HCO3 ABG O2 Saturation ABG Base Excess ABG Hemoglobin ABG Oxyhemoglobin ABG Potassium ABG Glucose VBG pH Oxyhemoglobin Sodium Potassium Chloride 96.5 L Carbon Dioxide 31 H BUN 29 H Creatinine Glucose 121 H POC Glucose 110 H Hemoglobin A1c Magnesium Ferritin AST 46 H Lactate Dehydrogenase C-Reactive Protein Albumin 3.7 L Arterial Blood Glucose Coronavirus (PCR) 08/17/20 08/17/20 08/18/20 11:42 21:45 05:13 WBC Lymph % (Auto) Hopkins % (Auto) Lymph # (Auto) Hopkins # (Auto) Seg Neutrophils % Seg Neuts % (Manual) Lymphocytes % (Manual) Seg Neutrophils # Seg Neutrophils # Man Lymphocytes # (Manual) Monocytes # (Manual) D-Dimer > 1000 H ABG pH POC ABG pCO2 POC ABG pO2 ABG pO2 ABG HCO3 ABG O2 Saturation ABG Base Excess ABG Hemoglobin ABG Oxyhemoglobin ABG Potassium ABG Glucose VBG pH Oxyhemoglobin Sodium Potassium Chloride Carbon Dioxide BUN Creatinine Glucose POC Glucose 122 H 143 H Hemoglobin A1c Magnesium Ferritin AST Lactate Dehydrogenase C-Reactive Protein Albumin Arterial Blood Glucose Coronavirus (PCR) 08/18/20 08/18/20 08/21/20 05:13 05:13 11:17 WBC Lymph % (Auto) Hopkins % (Auto) Lymph # (Auto) Hopkins # (Auto) Seg Neutrophils % Seg Neuts % (Manual) Lymphocytes % (Manual) Seg Neutrophils # Seg Neutrophils # Man Lymphocytes # (Manual) Monocytes # (Manual) D-Dimer ABG pH POC ABG pCO2 POC ABG pO2 ABG pO2 ABG HCO3 ABG O2 Saturation ABG Base Excess ABG Hemoglobin ABG Oxyhemoglobin ABG Potassium ABG Glucose VBG pH Oxyhemoglobin Sodium 133 L Potassium Chloride 94.7 L Carbon Dioxide BUN 33 H Creatinine Glucose 110 H POC Glucose 151 H Hemoglobin A1c Magnesium Ferritin 979.8 H AST 50 H Lactate Dehydrogenase C-Reactive Protein Albumin 3.7 L Arterial Blood Glucose Coronavirus (PCR) 08/21/20 08/21/20 08/21/20 13:39 13:39 15:55 WBC Lymph % (Auto) Hopkins % (Auto) Lymph # (Auto) Hopkins # (Auto) Seg Neutrophils % Seg Neuts % (Manual) Lymphocytes % (Manual) Seg Neutrophils # Seg Neutrophils # Man Lymphocytes # (Manual) Monocytes # (Manual) D-Dimer 6731.66 H ABG pH POC ABG pCO2 POC ABG pO2 ABG pO2 ABG HCO3 ABG O2 Saturation ABG Base Excess ABG Hemoglobin ABG Oxyhemoglobin ABG Potassium ABG Glucose VBG pH Oxyhemoglobin Sodium Potassium Chloride Carbon Dioxide BUN Creatinine Glucose POC Glucose Hemoglobin A1c Magnesium Ferritin 1019.0 H AST Lactate Dehydrogenase 1251 H C-Reactive Protein Albumin Arterial Blood Glucose Coronavirus (PCR) 08/22/20 08/22/20 08/25/20 05:23 05:23 12:30 WBC 24.7 H Lymph % (Auto) Hopkins % (Auto) Lymph # (Auto) Hopkins # (Auto) Seg Neutrophils % Seg Neuts % (Manual) Lymphocytes % (Manual) Seg Neutrophils # Seg Neutrophils # Man Lymphocytes # (Manual) Monocytes # (Manual) D-Dimer ABG pH 7.313 L POC ABG pCO2 POC ABG pO2 ABG pO2 76.2 L ABG HCO3 33.3 H ABG O2 Saturation 94.9 L ABG Base Excess 5.0 H ABG Hemoglobin 13.4 L ABG Oxyhemoglobin ABG Potassium ABG Glucose VBG pH Oxyhemoglobin 93.0 L Sodium 136 L Potassium Chloride 96.3 L Carbon Dioxide BUN 24 H Creatinine 0.7 L Glucose 115 H POC Glucose Hemoglobin A1c Magnesium Ferritin AST Lactate Dehydrogenase C-Reactive Protein Albumin Arterial Blood Glucose Coronavirus (PCR) 08/25/20 08/25/20 08/25/20 16:08 16:08 16:08 WBC Lymph % (Auto) Hopkins % (Auto) Lymph # (Auto) Hopkins # (Auto) Seg Neutrophils % Seg Neuts % (Manual) Lymphocytes % (Manual) Seg Neutrophils # Seg Neutrophils # Man Lymphocytes # (Manual) Monocytes # (Manual) D-Dimer 4487.76 H ABG pH POC ABG pCO2 POC ABG pO2 ABG pO2 ABG HCO3 ABG O2 Saturation ABG Base Excess ABG Hemoglobin ABG Oxyhemoglobin ABG Potassium ABG Glucose VBG pH Oxyhemoglobin Sodium Potassium Chloride Carbon Dioxide BUN Creatinine Glucose POC Glucose Hemoglobin A1c Magnesium Ferritin 961.4 H AST Lactate Dehydrogenase 959 H C-Reactive Protein Albumin Arterial Blood Glucose Coronavirus (PCR) 08/26/20 08/26/20 08/31/20 07:11 07:11 10:56 WBC Lymph % (Auto) Hopkins % (Auto) 9.8 H Lymph # (Auto) Hopkins # (Auto) 1.0 H Seg Neutrophils % Seg Neuts % (Manual) Lymphocytes % (Manual) Seg Neutrophils # Seg Neutrophils # Man Lymphocytes # (Manual) Monocytes # (Manual) D-Dimer ABG pH POC ABG pCO2 POC ABG pO2 ABG pO2 ABG HCO3 ABG O2 Saturation ABG Base Excess ABG Hemoglobin ABG Oxyhemoglobin ABG Potassium ABG Glucose VBG pH Oxyhemoglobin Sodium 135 L Potassium Chloride 95.7 L 97.4 L Carbon Dioxide 33 H 34 H BUN Creatinine 0.6 L Glucose 109 H POC Glucose Hemoglobin A1c Magnesium 2.40 H Ferritin AST Lactate Dehydrogenase C-Reactive Protein Albumin Arterial Blood Glucose Coronavirus (PCR)
[2020-09-04] MEDS ORDERED: FUROSEMIDE 40 MG/4 ML INJ IV SCH (14:30)
--- NOTE | 2020-09-04 16:25 | Progress Note ---
Assessment and Plan Cultures: Blood culture 08/10/2020 no growth SARS CoV2 PCR positive 08/10/2020 urine culture: No growth Assessment: 30 years old male with history of morbid obesity, admitted on 08/10/2020 secondary to 3-day history of intermittent frontal headache: #Leukocytosis: resolved, likely due to steroids/severe hypoxia, repeat procalcitonin level is low #Severe COVID19 pneumonia: On steroids, completed remdesivir. S/P actemra on 08/14/2020. Completed empiric abx course. Procal is low, additional abx not needed. CXR not significant change. Markers trending down #Acute hypoxemic respiratory failure: severe, on nonrebreather #Acute right leg DVT, very high d-dimer. On anticoagulation. #LONNY: Resolved #Morbid obesity: Associated with worse outcomes Recommendations: -Completed steroids -S/P remdesivir, actemra -Monitor inflammatory markers - ferritin, Ddimer, CRP, LDH -continue anticoagulation for DVT/Eliquis -prone positioning whenever possible -pulm on board Infectious disease will sign off. Please call with questions. Calvin Humphreys MD [facility] ([facility]) O: [phone] F: [phone] Subjective Date of service: 09/04/20 Principal diagnosis: COVID Interval history: Afebrile, no change. Remains on high flow nasal cannula. Objective - Exam Narrative Exam: Physical exam deferred to reduce risk of transmission of COVID-19. Please refer to primary team's note. - Constitutional Vitals: Vital Signs Temp Pulse Resp BP Pulse Ox 98.8 F 110 H 20 115/69 89 09/04/20 04:00 09/04/20 16:00 09/04/20 16:00 09/04/20 16:00 09/04/20 16:00 Temperature -Last 24 Hours Temperature 98.8 F Temperature 98.7 F Temperature 99.0 F Temperature 98.4 F - Labs CBC & Chem 7: 08/26/20 07:11 08/31/20 10:56
[2020-09-05] MEDS: methylPREDNISolone Sod Succinate 40 MG/1 ML INJ IV SCH ×3 (05:56→23:06)
--- NOTE | 2020-09-05 06:26 | Progress Note ---
Assessment and Plan The high probability of a clinically significant, sudden or life threatening deterioration of the [pulmonary,Vascular,ID,CVS and hematology] system(s) required my full and direct attention, intervention and personal management. The aggregate critical care time was [32] minutes. This time is in addition to time spent performing reported procedures but includes the following: [x] Data Review and interpretation [x] Patient assessment and monitoring of vital signs [x] Documentation [x] Medication orders and management Assessment and Plan Assessment and plan: --COVID-19 Pneumonia Continue antibiotics Continue steroids total 10 days s/p Remdesivir, s/p tocilizumab On HF NCO 2 Decreased to 80 percent Fio2 --Acute hypoxic respiratory failure secondary to COVID-19 PNA Pt remains on high flow oxygen 40/100/93 intermittent 100% nonrebreather Patient unstable to go for CTA chest to evaluate the cause of persistent hypoxia pulmonary following, Home O2 evaluation at discharge --Right lower extremity DVT on LE Doppler study LE Doppler LE Doppler shows RLE DVT. Echocardiogram shows no right heart strain. On Eliquis per protocol --Sinus bradycardia /resolved Likely from remdesivir Heart rate in 60s and 70s today TSH wnl --Morbid obesity; BMI 41.9 Diet and exercise advised Patient needs outpatient bariatric surgical/medical weight reduction consult when medically stable --Positive DVT ;-on Eliquis Continues to be on high flow oxygen, Wean as tolerated We will closely monitor the patient and adjust management as needed Roll Tester recommendations noted and appreciated Plan of care reviewed with the patient and his nurse and the case management Subjective Date of service: 09/04/20 Principal diagnosis: COVID Interval history: Brief history 30-year-old male with morbid obesity weighing about 310 pounds was admitted through emergency room with frontal headache for 3 days. Patient was noted to be hypoxic with shortness of breath and cough O2 sats room air were in the 80s, requiring high flow oxygen, BiPAP, patient was admitted to IMCU Patient was PUI, placed in isolation, gillespie PCR test was positive, evaluated by ID and pulmonary, medications optimized and patient was being managed per COVID-19 protocols and guidelines. Patient continues to depend on high flow oxygen and BiPAP. Today patient continues to be on very high flow oxygen of 40 L/100% FiO2/94 to 96% O2 sats Patient advised bariatric surgical consultation upon discharge for weight reduction program Work-up in the emergency room showed bilateral patchy opacities in the lungs and hypoxia-hence he was admitted for bilateral pneumonia and possible Covid pneumonia. No significant past medical history Daily Hospital course: 08/11. Patient seen examined at bedside this morning. Has no complaints. Febrile this a.m.-103 Fahrenheit. On Tylenol as needed. COVID-19 test ordered. Remains on steroids. ID consult if COVID-19 is positive. 08/12. His COVID-19 test is positive. He was started on remdesivir last night. Oxygen requirement increased overnight. Inflammatory markers increasing. Repeat chest xray shows worsening infiltrates. Ordered BNP. Lasix 40mg IV ordered. Increased dexamethasone to 6mg BID. Pulmonology consulted. Will place on continuous pulse oximetry. Incentive spirometer ordered. Advised prone positioning. 08/13. Not feeling better. Seen on BIPAP. Remains on steroids, remdesivir and antibiotics. Vitals stable. 08/14. Still maintaining sats even on BiPAP. Lasix 40 mg IV ordered. D-dimer this a.m. is more than 10,000. Lovenox increased to 150 mg twice daily. Ultrasound lower extremities Doppler showed a right DVT. Echocardiogram ordered to rule out right heart strain. Pending results, patient may need vascular surgery evaluation for possible thrombectomy. Continue on BiPAP and continue to monitor respiratory status closely. 08/15. Sats better this AM. Received toculizumab yesterday. Advised him to prone as much as possible. Echo shows normal EF with no right heart strain. I/Os reviewed. He is diuresing well. Renal function is stable. Will give additional lasix today. Pulmonology following 08/16. Remains on remdesivir. Still on BIPAP. Will give lasix 20mg IV. HR is low - likley effect of remdesivir. Will continue to monitor closely 08/17. Sats in the 90's this AM. Still on BIPAP. /2; patient remains hypoxic requiring BiPAP and 100% nonrebreather intermittently 08/19; Continue supportive care, wean oxygen as tolerated. Encouraged PRONE positioning if able to tolerate. 08/20:Remains on BiPAP. continue lasix, still not proninig, encouraged to prone, FIO2 down to 90% with sat of 96%. Continue care, prognosis still guarded. 08/21: Patient down on high flow. Continue to encourage proning position. Still with guarded prognosis. Elevation in WBC noted to 20 this could be secondary to steroids I will continue to monitor. No fever noted at this time. Patient's respiratory status has stabilized on the high flow with no shallow breathing noted Discussed with the nurse at bedside 08/22; DC Lovenox therapeutic dose, start Eliquis per protocol to treat lower extremity DVT. 08/23; patient remains on high flow oxygen 40 L/100 FiO2/94% O2 sats, intermittent BiPAP 08/24; patient remains on high flow oxygen and BiPAP, consultants recommendations noted and appreciated 08/25; patient continues to be hypoxemic, on high flow oxygen 40L/ 100 FiO2/95 O2 sats and on intermittent BiPAP 08/26; patient continues to be on high flow oxygen, unable to wean follow pulmonary recommendations 08/27; patient remains on high flow oxygen 40 L/100% FiO2/95% O2 sats with intermittent BiPAP treatment 08/28; patient remains on high flow oxygen, strongly advised to prone as tolerated, consults and recommendations noted and appreciated 08/29; closely monitor the patient and adjust management as needed, wean oxygen as tolerated Home oxygen evaluation, DC planning when medically stable 08/30; clinically no change, remains on high flow oxygen, wean as tolerated Consultants recommendations noted . 08/31; patient remains on high flow oxygen 40/100/93 09/01/20 patient remains on high flow oxygen 40/100/93 09/02/20 Same 09/03 Same 09/04 Some omproment Sitting in Chair On 80 percent FIO2 40 liters NC O 2 High flow Objective - Constitutional Vitals: Vital Signs - 12hr 09/04/20 09/04/20 09/04/20 19:00 20:00 21:00 Temperature Pulse Rate 82 83 81 Pulse Rate [ 78 From Monitor] Respiratory 10 L 10 L 10 L Rate Blood Pressure 116/83 115/56 121/75 O2 Sat by Pulse 96 90 90 Oximetry 09/04/20 09/04/20 09/04/20 22:00 22:30 23:00 Temperature Pulse Rate 83 76 76 Pulse Rate [ From Monitor] Respiratory 10 L 12 10 L Rate Blood Pressure 135/74 135/74 135/74 O2 Sat by Pulse 93 94 90 Oximetry 09/04/20 09/05/20 09/05/20 23:14 00:00 01:00 Temperature Pulse Rate 73 74 Pulse Rate [ 73 From Monitor] Respiratory 8 L 11 L Rate Blood Pressure 147/90 147/90 O2 Sat by Pulse 93 91 91 Oximetry 09/05/20 09/05/20 09/05/20 02:00 03:01 04:00 Temperature 98.6 F Pulse Rate 72 80 72 Pulse Rate [ 72 From Monitor] Respiratory 10 L 10 L 10 L Rate Blood Pressure 105/61 O2 Sat by Pulse 90 91 95 Oximetry 09/05/20 09/05/20 09/05/20 04:01 04:04 05:01 Temperature Pulse Rate 83 75 Pulse Rate [ From Monitor] Respiratory 21 10 L Rate Blood Pressure O2 Sat by Pulse 85 95 95 Oximetry General appearance: Present: mild distress, well-nourished - EENT Eyes: PERRL, EOM intact ENT: hearing intact, clear oral mucosa Ears: bilateral: normal - Neck Neck: supple, normal ROM - Respiratory Respiratory effort: normal Respiratory: bilateral: CTA - Breasts Breasts: normal - Cardiovascular Heart rate: 78 Rhythm: regular Heart Sounds: Present: S1 & S2. Absent: gallop, rub Extremities: pulses intact, No edema, normal color, Full ROM - Gastrointestinal General gastrointestinal: Present: soft, non-tender, non-distended, normal bowel sounds - Genitourinary Male genitourinary: normal - Integumentary Integumentary: clear, warm, dry - Musculoskeletal Musculoskeletal: 1, strength equal bilaterally - Neurologic Neurologic: moves all extremities - Psychiatric Psychiatric: memory intact, appropriate mood/affect, intact judgment & insight - Allied health notes Allied health notes reviewed: nursing, case management - Labs CBC & Chem 7: 08/26/20 07:11 08/31/20 10:56
--- NOTE | 2020-09-05 06:29 | Progress Note ---
Assessment and Plan The high probability of a clinically significant, sudden or life threatening deterioration of the [pulmonary,Vascular,ID,CVS and hematology] system(s) required my full and direct attention, intervention and personal management. The aggregate critical care time was [32] minutes. This time is in addition to time spent performing reported procedures but includes the following: [x] Data Review and interpretation [x] Patient assessment and monitoring of vital signs [x] Documentation [x] Medication orders and management Assessment and Plan Assessment and plan: --COVID-19 Pneumonia Continue antibiotics Continue steroids total 10 days s/p Remdesivir, s/p tocilizumab Oxygen supplementation with high flow oxygen/ BiPAP/nonrebreather as needed Trend inflammatory markers Prone positioning strongly advised ID and pulmonology following --Acute hypoxic respiratory failure secondary to COVID-19 PNA Pt remains on high flow oxygen 40/100/93 intermittent 100% nonrebreather Patient unstable to go for CTA chest to evaluate the cause of persistent hypoxia pulmonary following, Home O2 evaluation at discharge --Right lower extremity DVT on LE Doppler study LE Doppler LE Doppler shows RLE DVT. Echocardiogram shows no right heart strain. On Eliquis per protocol --Sinus bradycardia /resolved Likely from remdesivir Heart rate in 60s and 70s today TSH wnl --Morbid obesity; BMI 41.9 Diet and exercise advised Patient needs outpatient bariatric surgical/medical weight reduction consult when medically stable --Positive DVT ;-on Eliquis Continues to be on high flow oxygen, Wean as tolerated We will closely monitor the patient and adjust management as needed Ancillary Services Manager Therapy recommendations noted and appreciated Plan of care reviewed with the patient and his nurse and the case management Subjective Date of service: 09/03/20 Principal diagnosis: COVID Interval history: Brief history 30-year-old male with morbid obesity weighing about 310 pounds was admitted through emergency room with frontal headache for 3 days. Patient was noted to be hypoxic with shortness of breath and cough O2 sats room air were in the 80s, requiring high flow oxygen, BiPAP, patient was admitted to IMCU Patient was PUI, placed in isolation, gillespie PCR test was positive, evaluated by ID and pulmonary, medications optimized and patient was being managed per COVID-19 protocols and guidelines. Patient continues to depend on high flow oxygen and BiPAP. Today patient continues to be on very high flow oxygen of 40 L/100% FiO2/94 to 96% O2 sats Patient advised bariatric surgical consultation upon discharge for weight reduction program Work-up in the emergency room showed bilateral patchy opacities in the lungs and hypoxia-hence he was admitted for bilateral pneumonia and possible Covid pneumonia. No significant past medical history Daily Hospital course: 08/11. Patient seen examined at bedside this morning. Has no complaints. Febrile this a.m.-103 Fahrenheit. On Tylenol as needed. COVID-19 test ordered. Remains on steroids. ID consult if COVID-19 is positive. 08/12. His COVID-19 test is positive. He was started on remdesivir last night. Oxygen requirement increased overnight. Inflammatory markers increasing. Repeat chest xray shows worsening infiltrates. Ordered BNP. Lasix 40mg IV ordered. Increased dexamethasone to 6mg BID. Pulmonology consulted. Will place on continuous pulse oximetry. Incentive spirometer ordered. Advised prone positioning. 08/13. Not feeling better. Seen on BIPAP. Remains on steroids, remdesivir and antibiotics. Vitals stable. 08/14. Still maintaining sats even on BiPAP. Lasix 40 mg IV ordered. D-dimer this a.m. is more than 10,000. Lovenox increased to 150 mg twice daily. Ultrasound lower extremities Doppler showed a right DVT. Echocardiogram ordered to rule out right heart strain. Pending results, patient may need vascular surgery evaluation for possible thrombectomy. Continue on BiPAP and continue to monitor respiratory status closely. 08/15. Sats better this AM. Received toculizumab yesterday. Advised him to prone as much as possible. Echo shows normal EF with no right heart strain. I/Os reviewed. He is diuresing well. Renal function is stable. Will give additional lasix today. Pulmonology following 08/16. Remains on remdesivir. Still on BIPAP. Will give lasix 20mg IV. HR is low - likley effect of remdesivir. Will continue to monitor closely 08/17. Sats in the 90's this AM. Still on BIPAP. 08/18; patient remains hypoxic requiring BiPAP and 100% nonrebreather intermittently 08/19; Continue supportive care, wean oxygen as tolerated. Encouraged PRONE positioning if able to tolerate. 08/20:Remains on BiPAP. continue lasix, still not proninig, encouraged to prone, FIO2 down to 90% with sat of 96%. Continue care, prognosis still guarded. 08/21: Patient down on high flow. Continue to encourage proning position. Still with guarded prognosis. Elevation in WBC noted to 20 this could be secondary to steroids I will continue to monitor. No fever noted at this time. Patient's respiratory status has stabilized on the high flow with no shallow breathing noted Discussed with the nurse at bedside 08/22; DC Lovenox therapeutic dose, start Eliquis per protocol to treat lower extremity DVT. 08/23; patient remains on high flow oxygen 40 L/100 FiO2/94% O2 sats, intermittent BiPAP 08/24; patient remains on high flow oxygen and BiPAP, consultants recommendations noted and appreciated 08/25; patient continues to be hypoxemic, on high flow oxygen 40L/ 100 FiO2/95 O2 sats and on intermittent BiPAP 08/26; patient continues to be on high flow oxygen, unable to wean follow pulmonary recommendations 08/27; patient remains on high flow oxygen 40 L/100% FiO2/95% O2 sats with intermittent BiPAP treatment 08/28; patient remains on high flow oxygen, strongly advised to prone as tolerated, consults and recommendations noted and appreciated 08/29; closely monitor the patient and adjust management as needed, wean oxygen as tolerated Home oxygen evaluation, DC planning when medically stable 08/30; clinically no change, remains on high flow oxygen, wean as tolerated Consultants recommendations noted . 08/31; patient remains on high flow oxygen 40/100/93 09/01 Same 09/02/20 Same 09/03 Same On High flow O2 Objective - Constitutional Vitals: Vital Signs - 12hr 09/04/20 09/04/20 09/04/20 19:00 20:00 21:00 Temperature Pulse Rate 82 83 81 Pulse Rate [ 78 From Monitor] Respiratory 10 L 10 L 10 L Rate Blood Pressure 116/83 115/56 121/75 O2 Sat by Pulse 96 90 90 Oximetry 09/04/20 09/04/20 09/04/20 22:00 22:30 23:00 Temperature Pulse Rate 83 76 76 Pulse Rate [ From Monitor] Respiratory 10 L 12 10 L Rate Blood Pressure 135/74 135/74 135/74 O2 Sat by Pulse 93 94 90 Oximetry 09/04/20 09/05/20 09/05/20 23:14 00:00 01:00 Temperature Pulse Rate 73 74 Pulse Rate [ 73 From Monitor] Respiratory 8 L 11 L Rate Blood Pressure 147/90 147/90 O2 Sat by Pulse 93 91 91 Oximetry 09/05/20 09/05/20 09/05/20 02:00 03:01 04:00 Temperature 98.6 F Pulse Rate 72 80 72 Pulse Rate [ 72 From Monitor] Respiratory 10 L 10 L 10 L Rate Blood Pressure 105/61 O2 Sat by Pulse 90 91 95 Oximetry 09/05/20 09/05/20 09/05/20 04:01 04:04 05:01 Temperature Pulse Rate 83 75 Pulse Rate [ From Monitor] Respiratory 21 10 L Rate Blood Pressure O2 Sat by Pulse 85 95 95 Oximetry General appearance: Present: mild distress - EENT Eyes: PERRL, EOM intact ENT: hearing intact, clear oral mucosa Ears: bilateral: normal - Neck Neck: supple, normal ROM - Respiratory Respiratory effort: normal Respiratory: bilateral: CTA - Breasts Breasts: normal - Cardiovascular Heart rate: 78 Rhythm: regular Heart Sounds: Present: S1 & S2. Absent: gallop, rub Extremities: pulses intact, No edema, normal color, Full ROM - Gastrointestinal General gastrointestinal: Present: soft, non-tender, non-distended, normal bowel sounds - Genitourinary Male genitourinary: normal - Integumentary Integumentary: clear, warm, dry - Musculoskeletal Musculoskeletal: 1, strength equal bilaterally - Neurologic Neurologic: moves all extremities - Psychiatric Psychiatric: memory intact, appropriate mood/affect, intact judgment & insight - Labs CBC & Chem 7: 08/26/20 07:11 08/31/20 10:56
[2020-09-05 07:21] LABS: Basophils # (Auto) 0.1 K/mm3 (0.0-0.1); Basophils % (Auto) 0.5 % (0.0-1.8); Eosinophils % (Auto) 0.3 % (0.0-4.3); Hematocrit 42.3 % (35.5-45.6); Lymphocytes # (Auto) 1.5 K/mm3 (1.2-5.4); Lymphocytes % (Auto) 10.8 % (13.4-35.0); Mean Corpuscular HGB Conc 33 % (32-34); Mean Corpuscular Volume 88 fl (84-94); Monocytes # (Auto) 0.8 K/mm3 (0.0-0.8); Monocytes % (Auto) 5.8 % (0.0-7.3); Platelet Count 173 K/mm3 (140-440); Red Blood Count 4.79 M/mm3 (3.65-5.03); Red Cell Distribution Width 14.8 % (13.2-15.2)
[2020-09-05 07:43] LABS: Blood Urea Nitrogen 21 mg/dL (9-20); Calcium 9.3 mg/dL (8.4-10.2); Hemolysis Index 47
[2020-09-05 07:47] LABS: BUN/Creatinine Ratio 35
--- NOTE | 2020-09-05 08:53 | Progress Note ---
Assessment and Plan Assessment and plan: --COVID-19 Pneumonia Continue antibiotics Continue steroids total 10 days s/p Remdesivir, s/p tocilizumab On HF NCO 2 Decreased to 80 percent Fio2 --Acute hypoxic respiratory failure secondary to COVID-19 PNA Pt remains on high flow oxygen 40/100/93 intermittent 100% nonrebreather Patient unstable to go for CTA chest to evaluate the cause of persistent hypoxia pulmonary following, Home O2 evaluation at discharge --Right lower extremity DVT on LE Doppler study LE Doppler LE Doppler shows RLE DVT. Echocardiogram shows no right heart strain. On Eliquis per protocol --Sinus bradycardia /resolved Likely from remdesivir Heart rate in 60s and 70s today TSH wnl --Morbid obesity; BMI 41.9 Diet and exercise advised Patient needs outpatient bariatric surgical/medical weight reduction consult when medically stable --Positive DVT ;-on Eliquis Continues to be on high flow oxygen, Wean as tolerated We will closely monitor the patient and adjust management as needed Portable Machine Cutter recommendations noted and appreciated Plan of care reviewed with the patient and his nurse and the case management The high probability of a clinically significant, sudden or life threatening deterioration of the [pulmonary,Vascular,ID,CVS and hematology] system(s) required my full and direct attention, intervention and personal management. The aggregate critical care time was [34] minutes. This time is in addition to time spent performing reported procedures but includes the following: [x] Data Review and interpretation [x] Patient assessment and monitoring of vital signs [x] Documentation [x] Medication orders and management Brief history 30-year-old male with morbid obesity weighing about 310 pounds was admitted through emergency room with frontal headache for 3 days. Patient was noted to be hypoxic with shortness of breath and cough O2 sats room air were in the 80s, requiring high flow oxygen, BiPAP, patient was admitted to IMCU Patient was PUI, placed in isolation, gillespie PCR test was positive, evaluated by ID and pulmonary, medications optimized and patient was being managed per COVID-19 protocols and guidelines. Patient continues to depend on high flow oxygen and BiPAP. Today patient continues to be on very high flow oxygen of 40 L/100% FiO2/94 to 96% O2 sats Patient advised bariatric surgical consultation upon discharge for weight reduction program Work-up in the emergency room showed bilateral patchy opacities in the lungs and hypoxia-hence he was admitted for bilateral pneumonia and possible Covid pneumonia. No significant past medical history Daily Hospital course: 08/11. Patient seen examined at bedside this morning. Has no complaints. Febrile this a.m.-103 Fahrenheit. On Tylenol as needed. COVID-19 test ordered. Remains on steroids. ID consult if COVID-19 is positive. 08/12. His COVID-19 test is positive. He was started on remdesivir last night. Oxygen requirement increased overnight. Inflammatory markers increasing. Repeat chest xray shows worsening infiltrates. Ordered BNP. Lasix 40mg IV ordered. Increased dexamethasone to 6mg BID. Pulmonology consulted. Will place on continuous pulse oximetry. Incentive spirometer ordered. Advised prone positioning. 08/13. Not feeling better. Seen on BIPAP. Remains on steroids, remdesivir and antibiotics. Vitals stable. 08/14. Still maintaining sats even on BiPAP. Lasix 40 mg IV ordered. D-dimer this a.m. is more than 10,000. Lovenox increased to 150 mg twice daily. Ultrasound lower extremities Doppler showed a right DVT. Echocardiogram ordered to rule out right heart strain. Pending results, patient may need vascular surgery evaluation for possible thrombectomy. Continue on BiPAP and continue to monitor respiratory status closely. 08/15. Sats better this AM. Received toculizumab yesterday. Advised him to prone as much as possible. Echo shows normal EF with no right heart strain. I/Os reviewed. He is diuresing well. Renal function is stable. Will give additional lasix today. Pulmonology following 08/16. Remains on remdesivir. Still on BIPAP. Will give lasix 20mg IV. HR is low - likley effect of remdesivir. Will continue to monitor closely 08/17. Sats in the 90's this AM. Still on BIPAP. 08/18; patient remains hypoxic requiring BiPAP and 100% nonrebreather intermittently 08/19; Continue supportive care, wean oxygen as tolerated. Encouraged PRONE po sitioning if able to tolerate. 08/20:Remains on BiPAP. continue lasix, still not proninig, encouraged to prone, FIO2 down to 90% with sat of 96%. Continue care, prognosis still guarded. 08/21: Patient down on high flow. Continue to encourage proning position. Still with guarded prognosis. Elevation in WBC noted to 20 this could be secondary to steroids I will continue to monitor. No fever noted at this time. Patient's respiratory status has stabilized on the high flow with no shallow breathing noted Discussed with the nurse at bedside 08/22; DC Lovenox therapeutic dose, start Eliquis per protocol to treat lower extremity DVT. 08/23; patient remains on high flow oxygen 40 L/100 FiO2/94% O2 sats, intermittent BiPAP 08/24; patient remains on high flow oxygen and BiPAP, consultants recommendations noted and appreciated 08/25; patient continues to be hypoxemic, on high flow oxygen 40L/ 100 FiO2/95 O2 sats and on intermittent BiPAP 08/26; patient continues to be on high flow oxygen, unable to wean follow pulmonary recommendations 08/27; patient remains on high flow oxygen 40 L/100% FiO2/95% O2 sats with intermittent BiPAP treatment 08/28; patient remains on high flow oxygen, strongly advised to prone as tolerated, consults and recommendations noted and appreciated 08/29; closely monitor the patient and adjust management as needed, wean oxygen as tolerated Home oxygen evaluation, DC planning when medically stable 08/30; clinically no change, remains on high flow oxygen, wean as tolerated Consultants recommendations noted . 08/31; patient remains on high flow oxygen 40/100/93 09/01/20;patient remains on high flow oxygen 40/100/93 09/02/20; Same 09/03:Same 09/04:Some omproment, Sitting in Chair On 80 percent FIO2, 40 liters NC O 2 High flow 09/05: Patient feels slightly better Continues to be on high flow oxygen wean as tolerated Continue current management History Interval history: I have seen and examined the patient in [facility] this morning COVID-19 patient on high flow oxygen Contact and droplet isolation Remains on high flow oxygen 40 L/36 FiO2/92% O2 sats Patient patient is in mild distress Vital signs noted Hospitalist Physical - Constitutional Vitals: Temp Pulse Resp BP Pulse Ox 98.6 F 73 10 L 121/64 94 09/05/20 04:00 09/05/20 07:01 09/05/20 07:01 09/05/20 07:01 09/05/20 07:01 General appearance: Present: mild distress, well-nourished - EENT Eyes: Present: PERRL, EOM intact - Neck Neck: Present: supple, normal ROM - Respiratory Respiratory effort: normal Respiratory: bilateral: diminished, rales, rhonchi, wheezing - Cardiovascular Rhythm: regular Heart Sounds: Present: S1 & S2 - Extremities Extremities: no ischemia, No edema - Abdominal General gastrointestinal: soft, non-tender, non-distended - Integumentary Integumentary: Present: clear, warm - Psychiatric Psychiatric: appropriate mood/affect, cooperative - Neurologic Neurologic: CNII-XII intact, moves all extremities Results - Labs CBC & Chem 7: 09/05/20 07:11 09/05/20 07:11 Labs: Laboratory Last Values WBC 14.0 K/mm3 (4.5-11.0) H 09/05/20 07:11 RBC 4.79 M/mm3 (3.65-5.03) 09/05/20 07:11 Hgb 14.0 gm/dl (11.8-15.2) 09/05/20 07:11 Hct 42.3 % (35.5-45.6) 09/05/20 07:11 MCV 88 fl (84-94) 09/05/20 07:11 MCH 29 pg (28-32) 09/05/20 07:11 MCHC 33 % (32-34) 09/05/20 07:11 RDW 14.8 % (13.2-15.2) 09/05/20 07:11 Plt Count 173 K/mm3 (140-440) 09/05/20 07:11 Lymph % (Auto) 10.8 % (13.4-35.0) L 09/05/20 07:11 Bradley % (Auto) 5.8 % (0.0-7.3) 09/05/20 07:11 Eos % (Auto) 0.3 % (0.0-4.3) 09/05/20 07:11 Baso % (Auto) 0.5 % (0.0-1.8) 09/05/20 07:11 Lymph # (Auto) 1.5 K/mm3 (1.2-5.4) 09/05/20 07:11 Bradley # (Auto) 0.8 K/mm3 (0.0-0.8) 09/05/20 07:11 Eos # (Auto) 0.0 K/mm3 (0.0-0.4) 09/05/20 07:11 Baso # (Auto) 0.1 K/mm3 (0.0-0.1) 09/05/20 07:11 Add Manual Diff Complete 08/17/20 05:06 Total Counted 100 08/17/20 05:06 Seg Neutrophils % 82.6 % (40.0-70.0) H 09/05/20 07:11 Seg Neuts % (Manual) 86.0 % (40.0-70.0) H 08/17/20 05:06 Lymphocytes % (Manual) 7.0 % (13.4-35.0) L 08/17/20 05:06 Monocytes % (Manual) 6.0 % (0.0-7.3) 08/17/20 05:06 Eosinophils % (Manual) 1.0 % (0.0-4.3) 08/17/20 05:06 Metamyelocytes % 2.0 % 08/15/20 05:16 Nucleated RBC % Not Reportable 08/17/20 05:06 Seg Neutrophils # 11.6 K/mm3 (1.8-7.7) H 09/05/20 07:11 Seg Neutrophils # Man 17.8 K/mm3 (1.8-7.7) H 08/17/20 05:06 Band Neutrophils # 0.0 K/mm3 08/17/20 05:06 Lymphocytes # (Manual) 1.4 K/mm3 (1.2-5.4) 08/17/20 05:06 Abs React Lymphs (Man) 0.0 K/mm3 08/17/20 05:06 Monocytes # (Manual) 1.2 K/mm3 (0.0-0.8) H 08/17/20 05:06 Eosinophils # (Manual) 0.2 K/mm3 (0.0-0.4) 08/17/20 05:06 Basophils # (Manual) 0.0 K/mm3 (0.0-0.1) 08/17/20 05:06 Metamyelocytes # 0.0 K/mm3 08/17/20 05:06 Myelocytes # 0.0 K/mm3 08/17/20 05:06 Promyelocytes # 0.0 K/mm3 08/17/20 05:06 Blast Cells # 0.0 K/mm3 08/17/20 05:06 WBC Morphology Not Reportable 08/17/20 05:06 Hypersegmented Neuts Not Reportable 08/17/20 05:06 Hyposegmented Neuts Not Reportable 08/17/20 05:06 Hypogranular Neuts Not Reportable 08/17/20 05:06 Smudge Cells Not Reportable 08/17/20 05:06 Toxic Granulation Not Reportable 08/17/20 05:06 Toxic Vacuolation Not Reportable 08/17/20 05:06 Dohle Bodies Not Reportable 08/17/20 05:06 Pelger-Huet Anomaly Not Reportable 08/17/20 05:06 Juan Luis Rods Not Reportable 08/17/20 05:06 Platelet Estimate Consistent w auto 08/17/20 05:06 Clumped Platelets Not Reportable 08/17/20 05:06 Plt Clumps, EDTA Not Reportable 08/17/20 05:06 Large Platelets Not Reportable 08/17/20 05:06 Giant Platelets Not Reportable 08/17/20 05:06 Platelet Satelliting Not Reportable 08/17/20 05:06 Plt Morphology Comment Not Reportable 08/17/20 05:06 RBC Morphology Not Reportable 08/17/20 05:06 Dimorphic RBCs Not Reportable 08/17/20 05:06 Polychromasia Not Reportable 08/17/20 05:06 Hypochromasia Not Reportable 08/17/20 05:06 Poikilocytosis Not Reportable 08/17/20 05:06 Anisocytosis Few 08/17/20 05:06 Microcytosis Not Reportable 08/17/20 05:06 Macrocytosis Not Reportable 08/17/20 05:06 Spherocytes Not Reportable 08/17/20 05:06 Pappenheimer Bodies Not Reportable 08/17/20 05:06 Sickle Cells Not Reportable 08/17/20 05:06 Target Cells Not Reportable 08/17/20 05:06 Tear Drop Cells Not Reportable 08/17/20 05:06 Ovalocytes Not Reportable 08/17/20 05:06 Helmet Cells Not Reportable 08/17/20 05:06 [place] Bodies Not Reportable 08/17/20 05:06 [place] Rings Not Reportable 08/17/20 05:06 Kurt Cells Not Reportable 08/17/20 05:06 Bite Cells Not Reportable 08/17/20 05:06 Crenated Cell Not Reportable 08/17/20 05:06 Elliptocytes Not Reportable 08/17/20 05:06 Acanthocytes (Spur) Not Reportable 08/17/20 05:06 Rouleaux Not Reportable 08/17/20 05:06 Hemoglobin C Crystals Not Reportable 08/17/20 05:06 Schistocytes Not Reportable 08/17/20 05:06 Malaria parasites Not Reportable 08/17/20 05:06 Asif Bodies Not Reportable 08/17/20 05:06 Hem Pathologist Commnt No 08/17/20 05:06 PT 12.6 Sec. (12.2-14.9) 08/10/20 08:29 INR 0.96 (0.87-1.13) 08/10/20 08:29 D-Dimer 4487.76 ng/mlDDU (0-234) H 08/25/20 16:08 ABG pH 7.313 pH Units (7.350-7.450) L 08/25/20 12:30 POC ABG pCO2 46.9 mmHg (32.0-48.0) 08/14/20 08:23 ABG pCO2 67.2 mm Hg 08/25/20 12:30 POC ABG pO2 50.0 mmHg (83-108) L 08/14/20 08:23 ABG pO2 76.2 mm Hg (80.0-90.0) L 08/25/20 12:30 POC ABG HCO3 31.4 08/14/20 08:23 ABG HCO3 33.3 mmol/L (20.0-26.0) H 08/25/20 12:30 ABG O2 Saturation 94.9 % (95.0-99.0) L 08/25/20 12:30 ABG O2 Content 17.5 (0.0-44) 08/25/20 12:30 POC ABG Base Excess 6.3 08/14/20 08:23 ABG Base Excess 5.0 mmol/L (-2.0-3.0) H 08/25/20 12:30 ABG Hemoglobin 13.4 gm/dl (14.0-18.0) L 08/25/20 12:30 ABG Oxyhemoglobin 84.0 (94-98) L 08/14/20 08:23 ABG Carboxyhemoglobin 1.5 % (0.0-5.0) 08/25/20 12:30 ABG Methemoglobin 0.5 % (0.0-1.5) 08/25/20 12:30 ABG Sodium 139.2 mmol/L (136.0-145.0) 08/14/20 08:23 ABG Potassium 4.5 mmol/L (3.40-4.50) 08/14/20 08:23 ABG Chloride 99.0 mmol/L (98-107) 08/14/20 08:23 ABG Glucose 141 mg/dL (65-95) H 08/14/20 08:23 VBG pH 7.303 (7.320-7.420) L 08/10/20 08:29 Oxyhemoglobin 93.0 % (95.0-99.0) L 08/25/20 12:30 Carboxyhemoglobin 0.9 (0.5-1.5) 08/14/20 08:23 FiO2 80 % 08/25/20 12:30 FiO2 % 100 08/14/20 08:23 Sodium 140 mmol/L (137-145) 09/05/20 07:11 Potassium 4.8 mmol/L (3.6-5.0) 09/05/20 07:11 Chloride 98.5 mmol/L (98-107) 09/05/20 07:11 Carbon Dioxide 36 mmol/L (22-30) H 09/05/20 07:11 Anion Gap 10 mmol/L 09/05/20 07:11 BUN 21 mg/dL (9-20) H 09/05/20 07:11 Creatinine 0.6 mg/dL (0.8-1.3) L 09/05/20 07:11 Estimated GFR > 60 ml/min 09/05/20 07:11 BUN/Creatinine Ratio 35 % 09/05/20 07:11 Glucose 123 mg/dL (75-100) H 09/05/20 07:11 POC Glucose 151 mg/dL (70-105) H 08/21/20 11:17 Hemoglobin A1c 6.1 % (4-6) H 08/11/20 05:39 Lactic Acid 0.80 mmol/L (0.7-2.0) 08/10/20 11:18 Calcium 9.3 mg/dL (8.4-10.2) 09/05/20 07:11 Magnesium 2.40 mg/dL (1.7-2.3) H 08/31/20 10:56 Ferritin 961.4 ng/mL (30.0-300.0) H 08/25/20 16:08 Total Bilirubin 0.50 mg/dL (0.1-1.2) 08/18/20 05:13 AST 50 units/L (5-40) H 08/18/20 05:13 ALT 50 units/L (7-56) 08/18/20 05:13 Alkaline Phosphatase 103 units/L (35-129) 08/18/20 05:13 Lactate Dehydrogenase 959 units/L (91-180) H 08/25/20 16:08 C-Reactive Protein 0.10 mg/dL (0.00-1.30) 08/25/20 16:08 NT-Pro-B Natriuret Pep 36.40 pg/mL (0-450) 08/12/20 06:29 Total Protein 6.9 g/dL (6.3-8.2) 08/18/20 05:13 Albumin 3.7 g/dL (3.9-5) L 08/18/20 05:13 Albumin/Globulin Ratio 1.1 % 08/18/20 05:13 Procalcitonin 0.08 ng/mL (<0.15) 08/21/20 13:39 TSH 1.830 mlU/mL (0.270-4.200) 08/17/20 05:06 Free T4 1.01 ng/dL (0.76-1.46) 08/17/20 05:06 Arterial Blood Glucose 141 mg/dL (65-95) H 08/14/20 08:23 Arterial Blood Ionized Calcium 4.8 mg/dL (4.6-5.3) 08/14/20 08:23 Urine Color Yellow (Yellow) 08/10/20 Unknown Urine Turbidity Cloudy (Clear) 08/10/20 Unknown Urine pH 5.0 (5.0-7.0) 08/10/20 Unknown Ur Specific [place] 1.025 (1.003-1.030) 08/10/20 Unknown Urine Protein 30 mg/dl mg/dL (Negative) 08/10/20 Unknown Urine Glucose (UA) 150 mg/dL (Negative) 08/10/20 Unknown Urine Ketones Negative mg/dL (Negative) 08/10/20 Unknown Urine Blood Negative (Negative) 08/10/20 Unknown Urine Nitrite Negative (Negative) 08/10/20 Unknown Urine Bilirubin Negative (Negative) 08/10/20 Unknown Urine Urobilinogen < 2.0 mg/dL (<2.0) 08/10/20 Unknown Ur Leukocyte Esterase Negative (Negative) 08/10/20 Unknown Urine WBC (Auto) 5.0 /HPF (0.0-6.0) 08/10/20 Unknown Urine RBC (Auto) 2.0 /HPF (0.0-6.0) 08/10/20 Unknown U Epithel Cells (Auto) 1.0 /HPF (0-13.0) 08/10/20 Unknown Urine Bacteria (Auto) 1+ /HPF (Negative) 08/10/20 Unknown Urine Mucus 3+ /HPF 08/10/20 Unknown Coronavirus (PCR) Positive (Negative) A 08/11/20 Unknown Gaytan/IV: Voiding Method Urinal Active Medications - Current Medications Current Medications: Generic Name Dose Route Start Last Admin Trade Name Freq PRN Reason Stop Dose Admin Acetaminophen 650 mg 08/10/20 23:48 08/31/20 00:34 Acetaminophen 325 Mg Tab PO 650 mg Q4H PRN Administration Pain MILD(1-3)/Fever >100.5/MARTINEZ Apixaban 5 mg 08/29/20 22:00 09/04/20 22:16 Apixaban 5 Mg Tab PO 5 mg Q12HR MELANIE Administration Protocol Artificial Tears 2 drops 08/16/20 13:44 Hypromellose 0.5% Ophth Soln 15 Ml OU Q4H PRN Dry Eye(s) Ascorbic Acid 500 mg 08/12/20 10:00 09/04/20 22:16 Ascorbic Acid 500 Mg Tab PO 500 mg BID MELANIE Administration Famotidine 20 mg 08/27/20 12:00 09/04/20 22:16 Famotidine 20 Mg Tab PO 20 mg BID MELANIE Administration Methylprednisolone Sodium Succinate 40 mg 08/31/20 10:00 09/05/20 05:56 Methylprednisolone Sod Succinate 40 Mg/1 Ml Inj IV 40 mg Q8HR MELANIE Administration Metoclopramide HCl 10 mg 08/10/20 23:48 Metoclopramide 10 Mg/2 Ml Inj IV Q6H PRN Nausea And Vomiting Morphine Sulfate 2 mg 08/10/20 23:48 08/25/20 10:20 Morphine 2 Mg/1 Ml Inj IV 2 mg Q4H PRN Administration Pain, Moderate (4-6) Ondansetron HCl 4 mg 08/10/20 23:48 Ondansetron 4 Mg/2 Ml Inj IV Q8H PRN Nausea And Vomiting Oxycodone/Acetaminophen 1 tab 08/10/20 23:48 08/25/20 21:08 Oxycodone /Acetaminophen 5-325mg Tab PO 1 tab Q6H PRN Administration Pain, Moderate (4-6) Sodium Chloride 10 ml 08/11/20 10:00 09/04/20 22:16 Sodium Chloride 0.9% 10 Ml Flush Syringe IV 10 ml BID MELANIE Administration Sodium Chloride 10 ml 08/10/20 23:48 08/12/20 21:04 Sodium Chloride 0.9% 10 Ml Flush Syringe IV 10 ml PRN PRN Administration LINE FLUSH Zinc Sulfate 220 mg 08/12/20 12:00 09/04/20 10:22 Zinc Sulfate 220 Mg Cap PO 220 mg QDAY MELANIE Administration Nutrition/Malnutrition Assess - Dietary Evaluation Nutrition/Malnutrition Findings: Nutrition Notes Start: 08/17/20 10:49 Freq: Status: Active Protocol: Document 09/01/20 12:59 CW (Rec: 09/01/20 13:04 CW [id number]) Nutrition Notes Initial or Follow up Reassessment Other Pertinent Diagnosis COVID-19 (+), pneu, RLE DVT, sinus bradycardia Current Diet Regular Labs/Tests 08/31/2020 reviewed Pertinent Medications lasix Height 5 ft 11 in Weight 127.1 kg [place] Body Weight (kg) 78.18 BMI 39.0 Weight change and time frame 14% weight loss x 2 weeks. Likely r/t to previous diuertics usage. Weight Status Obese Subjective/Other Information F/U for intakes and ONS tolerance. Pt continues to eat 50% of meals. ONS intake is unsure. Percent of energy/protein needs met: 64%/50% Burn Absent Trauma Absent Cultural/Ethnic/Faith Belief Requests salads with chicken Current % PO Fair (50-74%) Minimum of two criteria No #1 Nutrition Diagnosis Inadequate oral intake Diagnosis Progress(for reassessment Continues documentation) Is patient on ventilator? No Is Patient Ambulatory and/or Out of Bed No REE-([facility]-confined to bed) 2711.004 Kcal/Kg value to use for calculation 16 Approximate Energy Requirements Using 4 kcal/Kg Calculation Used for Recommendations Kcal/kg Additional Notes Pro needs 0.8-1g/kg adjBW: 90- 113g/day Fluid needs 1ml/kcal Nutrition Intervention Change Diet Order: Continue current diet as tolerated Add Supplement/Snack (indicate name/kcal Ensure High Protein BID /protein ) Provides kCal: 320 Provides Protein (gm) 32 Goal #1 PO tolerance Goal #2 PO intake of meals plus ONS to meet at least 75% energy and pro needs Anticipated Discharge Needs: Regular Diet Follow-Up By: 09/05/20 Additional Comments F/U for intakes and ONS tolerance
[2020-09-05] MEDS: APIXABAN 5 MG TAB PO SCH ×2 (09:14→23:06)
[2020-09-05] MEDS: FAMOTIDINE 20 MG TAB PO SCH ×2 (09:15→23:06)
[2020-09-05] MEDS: ASCORBIC ACID 500 MG TAB PO SCH ×2 (09:15→23:06)
[2020-09-05] MEDS: ZINC SULFATE 220 MG CAP PO SCH (09:15)
[2020-09-05] MEDS ORDERED: FUROSEMIDE 40 MG/4 ML INJ IV NR (11:32)
--- NOTE | 2020-09-05 11:32 | Progress Note ---
Assessment and Plan 30 y/o morbidly obese male with acute respiratory failure secondary to COVID 19 pneumonia. now found to have DVT in lower ext. 09/05/20: Lasix again today. Will continue steroids. Prne as much as tolerated. Guarded prognosis. 09/04/20: Will continue steroids given mild improvement. Prone as much as tolerated. Lasix again today. Bipap at night. 09/01/20: Continue steroids at least through the weekend. Continue to prone as much as tolerated. Lasix 40mg IV again today. BIpap QHS. Very very guarded prognosis. He has been hanging out in the high 80's low 90's for weeks now. 08/31/20: Going to place patient back on steroids. Will do solumedrol 40q8 at least for the next 48-72 hours to see if this helps. Checked stat labs this morning to evaluate renal function and potassium levels before anymore lasix is given. Continue to prone as tolerated and bipap QHS. Prognosis remains guarded. 08/30/20: Proning is a must. Will give lasix 40 today. Continue anticoagulation. Prognosis remians very very guarded. Avoid intubation at all costs. 08/29/20: Continue to prone as tolerated during the day and sleep prone at n ight. HOld on lasix today. Continue anticoagulation. Guarded prognosis. 08/28/20: Continue to prone as tolerated. Today will give lasix 40 to see if this helps. Will discuss with cardiology about echo. Clinically patient looks the same and not in distress. If PE is present, likely not large enough for EKOS. Given his high O2 requirement, prefer not to try CTA at this time as I feel the risks outweigh the benefits. 08/27/20: Long discussion with patient again at bedside today. May need to consider repeat ECHO to look for right heart strain. We know he had VTE in the lower ext but never had to oppurtunity to truly rule him out for PE. Cousin who is an [employer] in outpatient setting at [place] asked some questions so I spoke with her via the phone. She is going to help encourage proning. Will give more lasix today. Very very guarded prognosis. 08/26/20: Pulm status is more stable today compared to yesterday. Continue bipap PRN and QHS. Will give IV lasix again today. Prognosis still remains very guarded. 08/25/20: Placed back on bipap this am secondary to desaturations and lower mental state than before. Patient has been stable and making improvements but now seems to be headed in the wrong direction. Will monitor very closely as he is a high risk for intubation and bad outcomes. Very very guarded prognosis. Will give lasix today. 08/24/20: Encouraged more proning. Continue BIpap QHS and PRN. unfortunately, no funding, patient would be a good LTACH candidate as he will likely take a long time to wean from HFNC. 08/23/20: No new recs. Proning is metcalf. Will continue to follow. Appreciate ID recs and help. 08/22/20: Bipap PRN and QHS. Will given lasix today. Prone as tolerated. PT continues. Slight improvement. Will continue to follow. 08/21/20: Bipap PRN and QHS. Hold on lasix today. Continue to prone as much as tolerated. Will order PT consult. 08/18/20: Bipap pRN and QHS. More lasix today. Prone as tolerated during the day and sleep prone at night. Continue to try to hold off on intubation. Guarded prognosis. 08/17/20: Continue anticoagulation. Still trying to prevent intubation however will do electively if and when needed to prevent and emergent situation as patient will likely be difficult given neck and body habitus. Continue prone as tolerated. Steroids and remdesivir. 08/16/20: Anticoagulation. Prone as tolerated. Wean bipap as tolerated. Prognosis remains guarded. Trying to prevent intubation given poor outcomes as sociated with mechanically ventilated obese COVID patients. 08/15/20: Continue therapeutic anticoagulation. No current indication for vascular consult given no evidence of right heart strain on echo. CT would only be beneficial if we thought it would show large enough clot to warrant EKOS and with no evidence of strain, I doubt that will be the case. Continue proning as much as tolerated. Spoke with mother over the phone to update her. Patient also got actemra on yesterday as well. Prognosis remains guarded 08/14/20: Will accept sats in the mid 80's as long as mental state and work of breathing do not change. AGree with lasix therapy. Found to have large DVT on right. Spoke with [facility] and asked them to order stat echo to look for right heart strain, and if present may need to consider echos. Await echo before vascular consult. Prone if possible. Long discussion with mother on phone. Gave her a list of the meds he is on and what our current plan is. Also very candid with h er and son at bedside that the mortality rate with COVID is very very high. 08/13/20: Lasix again today. Continue to alternate between HFNC with NRB and bipap. Prognosis is very very guarded. Very very guarded to poor prognosis given CXR appearance, and body habitus, along with rapid decline in self sustaning oxygen levels. Agree with lasix and increase in steroids. Must prone. Very high likelihood for mechanical ventilation which would carry a high mortality for patient. Will continue to follow. No additional IVF's unless indicated. Subjective Date of service: 09/05/20 Principal diagnosis: COVID Interval history: No acute events. Pulm status is unchanged. lying in bed on back asleep. On 80% and sats in the mid 90's Objective Vital Signs - 12hr 09/05/20 09/05/20 09/05/20 00:00 01:00 02:00 Temperature Pulse Rate 73 74 72 Pulse Rate [ 73 From Monitor] Respiratory 8 L 11 L 10 L Rate Blood Pressure 147/90 147/90 105/61 O2 Sat by Pulse 91 91 90 Oximetry 09/05/20 09/05/20 09/05/20 03:01 04:00 04:01 Temperature 98.6 F Pulse Rate 80 72 83 Pulse Rate [ 72 From Monitor] Respiratory 10 L 10 L 21 Rate Blood Pressure O2 Sat by Pulse 91 95 85 Oximetry 09/05/20 09/05/20 09/05/20 04:04 05:01 06:01 Temperature Pulse Rate 75 73 Pulse Rate [ From Monitor] Respiratory 10 L 10 L Rate Blood Pressure 121/64 O2 Sat by Pulse 95 95 92 Oximetry 09/05/20 09/05/20 09/05/20 07:01 08:00 09:00 Temperature Pulse Rate 73 73 69 Pulse Rate [ 72 From Monitor] Respiratory 10 L 11 L 6 L Rate Blood Pressure 121/64 95/54 109/72 O2 Sat by Pulse 94 89 96 Oximetry Constitutional: no acute distress, alert Eyes: non-icteric ENT: oropharynx moist Neck: supple Effort: normal Ascultation: Bilateral: clear Cardiovascular: regular rate and rhythm (no mrg) Gastrointestinal: normoactive bowel sounds, soft, non-distended Integumentary: normal Extremities: no cyanosis, no edema, pink and warm Neurologic: normal mental status, non-focal exam Psychiatric: mood appropriate, affect normal CBC and BMP: 09/05/20 07:11 09/05/20 07:11 ABG, PT/INR, D-dimer: ABG ABG pH 7.313 pH Units (7.350-7.450) L 08/25/20 12:30 POC ABG pCO2 46.9 mmHg (32.0-48.0) 08/14/20 08:23 ABG pCO2 67.2 mm Hg 08/25/20 12:30 POC ABG pO2 50.0 mmHg (83-108) L 08/14/20 08:23 ABG pO2 76.2 mm Hg (80.0-90.0) L 08/25/20 12:30 POC ABG HCO3 31.4 08/14/20 08:23 ABG O2 Saturation 94.9 % (95.0-99.0) L 08/25/20 12:30 PT/INR, D-dimer PT 12.6 Sec. (12.2-14.9) 08/10/20 08:29 INR 0.96 (0.87-1.13) 08/10/20 08:29 D-Dimer 4487.76 ng/mlDDU (0-234) H 08/25/20 16:08 Abnormal lab findings: Abnormal Labs 08/10/20 08/10/20 08/10/20 08:29 08:29 08:29 WBC Lymph % (Auto) [place] % (Auto) 8.4 H Lymph # (Auto) [place] # (Auto) Seg Neutrophils % Seg Neuts % (Manual) Lymphocytes % (Manual) Seg Neutrophils # Seg Neutrophils # Man Lymphocytes # (Manual) Monocytes # (Manual) D-Dimer ABG pH POC ABG pCO2 POC ABG pO2 ABG pO2 ABG HCO3 ABG O2 Saturation ABG Base Excess ABG Hemoglobin ABG Oxyhemoglobin ABG Potassium ABG Glucose VBG pH 7.303 L Oxyhemoglobin Sodium Potassium Chloride Carbon Dioxide BUN Creatinine Glucose 132 H POC Glucose Hemoglobin A1c Magnesium Ferritin AST Lactate Dehydrogenase C-Reactive Protein Albumin Arterial Blood Glucose Coronavirus (PCR) 08/11/20 08/11/20 08/11/20 05:39 05:39 05:39 WBC Lymph % (Auto) 12.5 L [place] % (Auto) Lymph # (Auto) [place] # (Auto) Seg Neutrophils % 84.2 H Seg Neuts % (Manual) Lymphocytes % (Manual) Seg Neutrophils # 9.1 H Seg Neutrophils # Man Lymphocytes # (Manual) Monocytes # (Manual) D-Dimer ABG pH POC ABG pCO2 POC ABG pO2 ABG pO2 ABG HCO3 ABG O2 Saturation ABG Base Excess ABG Hemoglobin ABG Oxyhemoglobin ABG Potassium ABG Glucose VBG pH Oxyhemoglobin Sodium Potassium Chloride Carbon Dioxide BUN Creatinine Glucose 125 H POC Glucose Hemoglobin A1c 6.1 H Magnesium Ferritin AST Lactate Dehydrogenase C-Reactive Protein Albumin Arterial Blood Glucose Coronavirus (PCR) 08/11/20 08/11/20 08/11/20 18:58 18:58 18:58 WBC Lymph % (Auto) [place] % (Auto) Lymph # (Auto) [place] # (Auto) Seg Neutrophils % Seg Neuts % (Manual) Lymphocytes % (Manual) Seg Neutrophils # Seg Neutrophils # Man Lymphocytes # (Manual) Monocytes # (Manual) D-Dimer 464.84 H ABG pH POC ABG pCO2 POC ABG pO2 ABG pO2 ABG HCO3 ABG O2 Saturation ABG Base Excess ABG Hemoglobin ABG Oxyhemoglobin ABG Potassium ABG Glucose VBG pH Oxyhemoglobin Sodium Potassium Chloride Carbon Dioxide BUN Creatinine Glucose POC Glucose Hemoglobin A1c Magnesium Ferritin 528.7 H AST Lactate Dehydrogenase 637 H C-Reactive Protein 11.30 H Albumin Arterial Blood Glucose Coronavirus (PCR) 08/11/20 08/11/20 08/12/20 19:08 Unknown 06:29 WBC 11.2 H Lymph % (Auto) 8.6 L [place] % (Auto) Lymph # (Auto) 1.0 L [place] # (Auto) Seg Neutrophils % 88.3 H Seg Neuts % (Manual) Lymphocytes % (Manual) Seg Neutrophils # 9.8 H Seg Neutrophils # Man Lymphocytes # (Manual) Monocytes # (Manual) D-Dimer ABG pH POC ABG pCO2 POC ABG pO2 ABG pO2 ABG HCO3 ABG O2 Saturation ABG Base Excess ABG Hemoglobin ABG Oxyhemoglobin ABG Potassium ABG Glucose VBG pH Oxyhemoglobin Sodium Potassium Chloride Carbon Dioxide BUN Creatinine Glucose 161 H POC Glucose Hemoglobin A1c Magnesium Ferritin AST Lactate Dehydrogenase C-Reactive Protein Albumin Arterial Blood Glucose Coronavirus (PCR) Positive A 08/12/20 08/12/20 08/12/20 06:29 06:29 06:29 WBC Lymph % (Auto) [place] % (Auto) Lymph # (Auto) [place] # (Auto) Seg Neutrophils % Seg Neuts % (Manual) Lymphocytes % (Manual) Seg Neutrophils # Seg Neutrophils # Man Lymphocytes # (Manual) Monocytes # (Manual) D-Dimer 830.34 H ABG pH POC ABG pCO2 POC ABG pO2 ABG pO2 ABG HCO3 ABG O2 Saturation ABG Base Excess ABG Hemoglobin ABG Oxyhemoglobin ABG Potassium ABG Glucose VBG pH Oxyhemoglobin Sodium Potassium Chloride Carbon Dioxide 31 H BUN Creatinine Glucose 138 H POC Glucose Hemoglobin A1c Magnesium Ferritin 572.6 H AST 42 H Lactate Dehydrogenase 706 H C-Reactive Protein 17.30 H Albumin 3.7 L Arterial Blood Glucose Coronavirus (PCR) 08/12/20 08/12/20 08/12/20 13:21 14:55 21:59 WBC Lymph % (Auto) [place] % (Auto) Lymph # (Auto) [place] # (Auto) Seg Neutrophils % Seg Neuts % (Manual) Lymphocytes % (Manual) Seg Neutrophils # Seg Neutrophils # Man Lymphocytes # (Manual) Monocytes # (Manual) D-Dimer ABG pH 7.315 L POC ABG pCO2 57.1 H POC ABG pO2 47.8 L ABG pO2 65.8 L ABG HCO3 31.4 H ABG O2 Saturation 91.7 L ABG Base Excess ABG Hemoglobin 19.3 H ABG Oxyhemoglobin ABG Potassium 4.9 H ABG Glucose 182 H VBG pH Oxyhemoglobin 89.7 L Sodium Potassium Chloride Carbon Dioxide BUN Creatinine Glucose POC Glucose 142 H Hemoglobin A1c Magnesium Ferritin AST Lactate Dehydrogenase C-Reactive Protein Albumin Arterial Blood Glucose 182 H Coronavirus (PCR) 08/13/20 08/13/20 08/13/20 05:35 05:35 12:11 WBC 12.0 H Lymph % (Auto) 8.1 L [place] % (Auto) Lymph # (Auto) 1.0 L [place] # (Auto) Seg Neutrophils % 88.0 H Seg Neuts % (Manual) Lymphocytes % (Manual) Seg Neutrophils # 10.5 H Seg Neutrophils # Man Lymphocytes # (Manual) Monocytes # (Manual) D-Dimer ABG pH POC ABG pCO2 POC ABG pO2 ABG pO2 ABG HCO3 ABG O2 Saturation ABG Base Excess ABG Hemoglobin ABG Oxyhemoglobin ABG Potassium ABG Glucose VBG pH Oxyhemoglobin Sodium Potassium 5.1 H Chloride Carbon Dioxide 31 H BUN 25 H Creatinine Glucose 174 H POC Glucose 154 H Hemoglobin A1c Magnesium Ferritin AST 41 H Lactate Dehydrogenase 996 H C-Reactive Protein Albumin 3.8 L Arterial Blood Glucose Coronavirus (PCR) 08/13/20 08/13/20 08/14/20 16:18 23:24 05:21 WBC 14.2 H Lymph % (Auto) 8.2 L [place] % (Auto) Lymph # (Auto) [place] # (Auto) 0.9 H Seg Neutrophils % 85.4 H Seg Neuts % (Manual) Lymphocytes % (Manual) Seg Neutrophils # 12.2 H Seg Neutrophils # Man Lymphocytes # (Manual) Monocytes # (Manual) D-Dimer ABG pH POC ABG pCO2 POC ABG pO2 ABG pO2 ABG HCO3 ABG O2 Saturation ABG Base Excess ABG Hemoglobin ABG Oxyhemoglobin ABG Potassium ABG Glucose VBG pH Oxyhemoglobin Sodium Potassium Chloride Carbon Dioxide BUN Creatinine Glucose POC Glucose 188 H 127 H Hemoglobin A1c Magnesium Ferritin AST Lactate Dehydrogenase C-Reactive Protein Albumin Arterial Blood Glucose Coronavirus (PCR) 08/14/20 08/14/20 08/14/20 05:21 05:21 05:21 WBC Lymph % (Auto) [place] % (Auto) Lymph # (Auto) [place] # (Auto) Seg Neutrophils % Seg Neuts % (Manual) Lymphocytes % (Manual) Seg Neutrophils # Seg Neutrophils # Man Lymphocytes # (Manual) Monocytes # (Manual) D-Dimer > 96634 H ABG pH POC ABG pCO2 POC ABG pO2 ABG pO2 ABG HCO3 ABG O2 Saturation ABG Base Excess ABG Hemoglobin ABG Oxyhemoglobin ABG Potassium ABG Glucose VBG pH Oxyhemoglobin Sodium Potassium Chloride Carbon Dioxide 32 H 33 H BUN 26 H 26 H Creatinine Glucose 152 H 156 H POC Glucose Hemoglobin A1c Magnesium Ferritin AST 53 H 54 H Lactate Dehydrogenase 1249 H C-Reactive Protein 9.90 H Albumin 3.7 L 3.7 L Arterial Blood Glucose Coronavirus (PCR) 08/14/20 08/14/20 08/14/20 05:21 05:58 08:23 WBC Lymph % (Auto) [place] % (Auto) Lymph # (Auto) [place] # (Auto) Seg Neutrophils % Seg Neuts % (Manual) Lymphocytes % (Manual) Seg Neutrophils # Seg Neutrophils # Man Lymphocytes # (Manual) Monocytes # (Manual) D-Dimer ABG pH POC ABG pCO2 POC ABG pO2 50.0 L ABG pO2 ABG HCO3 ABG O2 Saturation ABG Base Excess ABG Hemoglobin ABG Oxyhemoglobin 84.0 L ABG Potassium ABG Glucose 141 H VBG pH Oxyhemoglobin Sodium Potassium Chloride Carbon Dioxide BUN Creatinine Glucose POC Glucose 139 H Hemoglobin A1c Magnesium Ferritin 1198.0 H AST Lactate Dehydrogenase C-Reactive Protein Albumin Arterial Blood Glucose 141 H Coronavirus (PCR) 08/15/20 08/15/20 08/16/20 05:16 05:16 05:26 WBC 13.7 H 17.7 H Lymph % (Auto) 8.2 L [place] % (Auto) Lymph # (Auto) [place] # (Auto) Seg Neutrophils % 86.2 H Seg Neuts % (Manual) 91.0 H 88.0 H Lymphocytes % (Manual) 7.0 L 9.0 L Seg Neutrophils # 15.3 H Seg Neutrophils # Man 12.5 H 15.6 H Lymphocytes # (Manual) 1.0 L Monocytes # (Manual) D-Dimer ABG pH POC ABG pCO2 POC ABG pO2 ABG pO2 ABG HCO3 ABG O2 Saturation ABG Base Excess ABG Hemoglobin ABG Oxyhemoglobin ABG Potassium ABG Glucose VBG pH Oxyhemoglobin Sodium Potassium Chloride Carbon Dioxide 32 H BUN 29 H Creatinine Glucose 150 H POC Glucose Hemoglobin A1c Magnesium Ferritin AST Lactate Dehydrogenase 1150 H C-Reactive Protein Albumin 3.5 L Arterial Blood Glucose Coronavirus (PCR) 08/16/20 08/16/20 08/16/20 05:26 05:26 05:26 WBC Lymph % (Auto) [place] % (Auto) Lymph # (Auto) [place] # (Auto) Seg Neutrophils % Seg Neuts % (Manual) Lymphocytes % (Manual) Seg Neutrophils # Seg Neutrophils # Man Lymphocytes # (Manual) Monocytes # (Manual) D-Dimer > 76103 H ABG pH POC ABG pCO2 POC ABG pO2 ABG pO2 ABG HCO3 ABG O2 Saturation ABG Base Excess ABG Hemoglobin ABG Oxyhemoglobin ABG Potassium ABG Glucose VBG pH Oxyhemoglobin Sodium Potassium 5.2 H Chloride Carbon Dioxide BUN 25 H Creatinine Glucose 163 H POC Glucose Hemoglobin A1c Magnesium Ferritin 1013.0 H AST Lactate Dehydrogenase C-Reactive Protein 4.00 H Albumin 3.6 L Arterial Blood Glucose Coronavirus (PCR) 08/17/20 08/17/20 08/17/20 05:06 05:06 07:51 WBC 20.7 H Lymph % (Auto) [place] % (Auto) Lymph # (Auto) [place] # (Auto) Seg Neutrophils % Seg Neuts % (Manual) 86.0 H Lymphocytes % (Manual) 7.0 L Seg Neutrophils # Seg Neutrophils # Man 17.8 H Lymphocytes # (Manual) Monocytes # (Manual) 1.2 H D-Dimer ABG pH POC ABG pCO2 POC ABG pO2 ABG pO2 ABG HCO3 ABG O2 Saturation ABG Base Excess ABG Hemoglobin ABG Oxyhemoglobin ABG Potassium ABG Glucose VBG pH Oxyhemoglobin Sodium Potassium Chloride 96.5 L Carbon Dioxide 31 H BUN 29 H Creatinine Glucose 121 H POC Glucose 110 H Hemoglobin A1c Magnesium Ferritin AST 46 H Lactate Dehydrogenase C-Reactive Protein Albumin 3.7 L Arterial Blood Glucose Coronavirus (PCR) 08/17/20 08/17/20 08/18/20 11:42 21:45 05:13 WBC Lymph % (Auto) [place] % (Auto) Lymph # (Auto) [place] # (Auto) Seg Neutrophils % Seg Neuts % (Manual) Lymphocytes % (Manual) Seg Neutrophils # Seg Neutrophils # Man Lymphocytes # (Manual) Monocytes # (Manual) D-Dimer > 1000 H ABG pH POC ABG pCO2 POC ABG pO2 ABG pO2 ABG HCO3 ABG O2 Saturation ABG Base Excess ABG Hemoglobin ABG Oxyhemoglobin ABG Potassium ABG Glucose VBG pH Oxyhemoglobin Sodium Potassium Chloride Carbon Dioxide BUN Creatinine Glucose POC Glucose 122 H 143 H Hemoglobin A1c Magnesium Ferritin AST Lactate Dehydrogenase C-Reactive Protein Albumin Arterial Blood Glucose Coronavirus (PCR) 08/18/20 08/18/20 08/21/20 05:13 05:13 11:17 WBC Lymph % (Auto) [place] % (Auto) Lymph # (Auto) [place] # (Auto) Seg Neutrophils % Seg Neuts % (Manual) Lymphocytes % (Manual) Seg Neutrophils # Seg Neutrophils # Man Lymphocytes # (Manual) Monocytes # (Manual) D-Dimer ABG pH POC ABG pCO2 POC ABG pO2 ABG pO2 ABG HCO3 ABG O2 Saturation ABG Base Excess ABG Hemoglobin ABG Oxyhemoglobin ABG Potassium ABG Glucose VBG pH Oxyhemoglobin Sodium 133 L Potassium Chloride 94.7 L Carbon Dioxide BUN 33 H Creatinine Glucose 110 H POC Glucose 151 H Hemoglobin A1c Magnesium Ferritin 979.8 H AST 50 H Lactate Dehydrogenase C-Reactive Protein Albumin 3.7 L Arterial Blood Glucose Coronavirus (PCR) 08/21/20 08/21/20 08/21/20 13:39 13:39 15:55 WBC Lymph % (Auto) [place] % (Auto) Lymph # (Auto) [place] # (Auto) Seg Neutrophils % Seg Neuts % (Manual) Lymphocytes % (Manual) Seg Neutrophils # Seg Neutrophils # Man Lymphocytes # (Manual) Monocytes # (Manual) D-Dimer 6731.66 H ABG pH POC ABG pCO2 POC ABG pO2 ABG pO2 ABG HCO3 ABG O2 Saturation ABG Base Excess ABG Hemoglobin ABG Oxyhemoglobin ABG Potassium ABG Glucose VBG pH Oxyhemoglobin Sodium Potassium Chloride Carbon Dioxide BUN Creatinine Glucose POC Glucose Hemoglobin A1c Magnesium Ferritin 1019.0 H AST Lactate Dehydrogenase 1251 H C-Reactive Protein Albumin Arterial Blood Glucose Coronavirus (PCR) 08/22/20 08/22/20 08/25/20 05:23 05:23 12:30 WBC 24.7 H Lymph % (Auto) [place] % (Auto) Lymph # (Auto) [place] # (Auto) Seg Neutrophils % Seg Neuts % (Manual) Lymphocytes % (Manual) Seg Neutrophils # Seg Neutrophils # Man Lymphocytes # (Manual) Monocytes # (Manual) D-Dimer ABG pH 7.313 L POC ABG pCO2 POC ABG pO2 ABG pO2 76.2 L ABG HCO3 33.3 H ABG O2 Saturation 94.9 L ABG Base Excess 5.0 H ABG Hemoglobin 13.4 L ABG Oxyhemoglobin ABG Potassium ABG Glucose VBG pH Oxyhemoglobin 93.0 L Sodium 136 L Potassium Chloride 96.3 L Carbon Dioxide BUN 24 H Creatinine 0.7 L Glucose 115 H POC Glucose Hemoglobin A1c Magnesium Ferritin AST Lactate Dehydrogenase C-Reactive Protein Albumin Arterial Blood Glucose Coronavirus (PCR) 08/25/20 08/25/20 08/25/20 16:08 16:08 16:08 WBC Lymph % (Auto) [place] % (Auto) Lymph # (Auto) [place] # (Auto) Seg Neutrophils % Seg Neuts % (Manual) Lymphocytes % (Manual) Seg Neutrophils # Seg Neutrophils # Man Lymphocytes # (Manual) Monocytes # (Manual) D-Dimer 4487.76 H ABG pH POC ABG pCO2 POC ABG pO2 ABG pO2 ABG HCO3 ABG O2 Saturation ABG Base Excess ABG Hemoglobin ABG Oxyhemoglobin ABG Potassium ABG Glucose VBG pH Oxyhemoglobin Sodium Potassium Chloride Carbon Dioxide BUN Creatinine Glucose POC Glucose Hemoglobin A1c Magnesium Ferritin 961.4 H AST Lactate Dehydrogenase 959 H C-Reactive Protein Albumin Arterial Blood Glucose Coronavirus (PCR) 08/26/20 08/26/20 08/31/20 07:11 07:11 10:56 WBC Lymph % (Auto) [place] % (Auto) 9.8 H Lymph # (Auto) [place] # (Auto) 1.0 H Seg Neutrophils % Seg Neuts % (Manual) Lymphocytes % (Manual) Seg Neutrophils # Seg Neutrophils # Man Lymphocytes # (Manual) Monocytes # (Manual) D-Dimer ABG pH POC ABG pCO2 POC ABG pO2 ABG pO2 ABG HCO3 ABG O2 Saturation ABG Base Excess ABG Hemoglobin ABG Oxyhemoglobin ABG Potassium ABG Glucose VBG pH Oxyhemoglobin Sodium 135 L Potassium Chloride 95.7 L 97.4 L Carbon Dioxide 33 H 34 H BUN Creatinine 0.6 L Glucose 109 H POC Glucose Hemoglobin A1c Magnesium 2.40 H Ferritin AST Lactate Dehydrogenase C-Reactive Protein Albumin Arterial Blood Glucose Coronavirus (PCR) 09/05/20 09/05/20 07:11 07:11 WBC 14.0 H Lymph % (Auto) 10.8 L [place] % (Auto) Lymph # (Auto) [place] # (Auto) Seg Neutrophils % 82.6 H Seg Neuts % (Manual) Lymphocytes % (Manual) Seg Neutrophils # 11.6 H Seg Neutrophils # Man Lymphocytes # (Manual) Monocytes # (Manual) D-Dimer ABG pH POC ABG pCO2 POC ABG pO2 ABG pO2 ABG HCO3 ABG O2 Saturation ABG Base Excess ABG Hemoglobin ABG Oxyhemoglobin ABG Potassium ABG Glucose VBG pH Oxyhemoglobin Sodium Potassium Chloride Carbon Dioxide 36 H BUN 21 H Creatinine 0.6 L Glucose 123 H POC Glucose Hemoglobin A1c Magnesium Ferritin AST Lactate Dehydrogenase C-Reactive Protein Albumin Arterial Blood Glucose Coronavirus (PCR)
[2020-09-06] MEDS: methylPREDNISolone Sod Succinate 40 MG/1 ML INJ IV SCH ×3 (06:58→22:27)
--- NOTE | 2020-09-06 08:51 | Progress Note ---
Assessment and Plan Assessment and plan: Patient remains on high flow oxygen, clinically no change Guarded prognosis --Acute hypoxic respiratory failure secondary to COVID-19 PNA Pt remains on high flow oxygen 40/100/93 intermittent 100% nonrebreather Patient unstable to go for CTA chest to evaluate the cause of persistent hypoxia pulmonary following, Home O2 evaluation at discharge --COVID-19 Pneumonia Continue antibiotics Continue steroids total 10 days s/p Remdesivir, s/p tocilizumab On HF NCO 2, titrate and wean as tolerated Decreased to 40 L/ 85 percent Fio2/97% O2 sats --Right lower extremity DVT on LE Doppler study LE Doppler LE Doppler shows RLE DVT. Echocardiogram shows no right heart strain. On Eliquis per protocol --Sinus bradycardia /resolved Likely from remdesivir Heart rate in 60s and 70s today TSH wnl --Morbid obesity; BMI 41.9 Diet and exercise advised Patient needs outpatient bariatric surgical/medical weight reduction consult when medically stable --Positive DVT ;-on Eliquis Continues to be on high flow oxygen, Wean as tolerated We will closely monitor the patient and adjust management as needed Computer Systems Architect recommendations noted and appreciated Plan of care reviewed with the patient and his nurse and the case management The high probability of a clinically significant, sudden or life threatening deterioration of the [pulmonary,Vascular,ID,CVS and hematology] system(s) required my full and direct attention, intervention and personal management. The aggregate critical care time was [32] minutes. This time is in addition to time spent performing reported procedures but includes the following: [x] Data Review and interpretation [x] Patient assessment and monitoring of vital signs [x] Documentation [x] Medication orders and management Brief history 30-year-old male with morbid obesity weighing about 310 pounds was admitted through emergency room with frontal headache for 3 days. Patient was noted to be hypoxic with shortness of breath and cough O2 sats room air were in the 80s, requiring high flow oxygen, BiPAP, patient was admitted to IMCU Patient was PUI, placed in isolation, gillespie PCR test was positive, evaluated by ID and pulmonary, medications optimized and patient was being managed per COVID-19 protocols and guidelines. Patient continues to depend on high flow oxygen and BiPAP. Today patient continues to be on very high flow oxygen of 40 L/85% FiO2/94 to 96% O2 sats Patient advised bariatric surgical consultation upon discharge for weight reduction program Work-up in the emergency room showed bilateral patchy opacities in the lungs and hypoxia-hence he was admitted for bilateral pneumonia and possible Covid pneumonia. No significant past medical history Daily Hospital course: 08/11. Patient seen examined at bedside this morning. Has no complaints. Febrile this a.m.-103 Fahrenheit. On Tylenol as needed. COVID-19 test ordered. Remains on steroids. ID consult if COVID-19 is positive. 08/12. His COVID-19 test is positive. He was started on remdesivir last night. Oxygen requirement increased overnight. Inflammatory markers increasing. Repeat chest xray shows worsening infiltrates. Ordered BNP. Lasix 40mg IV ordered. Increased dexamethasone to 6mg BID. Pulmonology consulted. Will place on continuous pulse oximetry. Incentive spirometer ordered. Advised prone positioning. 08/13. Not feeling better. Seen on BIPAP. Remains on steroids, remdesivir and antibiotics. Vitals stable. 08/14. Still maintaining sats even on BiPAP. Lasix 40 mg IV ordered. D-dimer this a.m. is more than 10,000. Lovenox increased to 150 mg twice daily. Ultrasound lower extremities Doppler showed a right DVT. Echocardiogram ordered to rule out right heart strain. Pending results, patient may need vascular surgery evaluation for possible thrombectomy. Continue on BiPAP and continue to monitor respiratory status closely. 08/15. Sats better this AM. Received toculizumab yesterday. Advised him to prone as much as possible. Echo shows normal EF with no right heart strain. I/Os reviewed. He is diuresing well. Renal function is stable. Will give additional lasix today. Pulmonology following 08/16. Remains on remdesivir. Still on BIPAP. Will give lasix 20mg IV. HR is low - likley effect of remdesivir. Will continue to monitor closely 08/17. Sats in the 90's this AM. Still on BIPAP. 08/18; patient remains hypoxic requiring BiPAP and 100% nonrebreather intermittently 08/19; Continue supportive care, wean oxygen as tolerated. Encouraged PRONE positioning if able to tolerate. 08/20:Remains on BiPAP. continue lasix, still not proninig, encouraged to prone, FIO2 down to 90% with sat of 96%. Continue care, prognosis still guarded. 08/21: Patient down on high flow. Continue to encourage proning position. Still with guarded prognosis. Elevation in WBC noted to 20 this could be secondary to steroids I will continue to monitor. No fever noted at this time. Patient's respiratory status has stabilized on the high flow with no shallow breathing noted Discussed with the nurse at bedside 08/22; DC Lovenox therapeutic dose, start Eliquis per protocol to treat lower extremity DVT. 08/23; patient remains on high flow oxygen 40 L/100 FiO2/94% O2 sats, intermittent BiPAP 08/24; patient remains on high flow oxygen and BiPAP, consultants recommendations noted and appreciated 08/25; patient continues to be hypoxemic, on high flow oxygen 40L/ 100 FiO2/95 O2 sats and on intermittent BiPAP 08/26; patient continues to be on high flow oxygen, unable to wean follow pulmonary recommendations 08/27; patient remains on high flow oxygen 40 L/100% FiO2/95% O2 sats with intermittent BiPAP treatment 08/28; patient remains on high flow oxygen, strongly advised to prone as tolerated, consults and recommendations noted and appreciated 08/29; closely monitor the patient and adjust management as needed, wean oxygen as tolerated Home oxygen evaluation, DC planning when medically stable 08/30; clinically no change, remains on high flow oxygen, wean as tolerated Consultants recommendations noted . 08/31; patient remains on high flow oxygen 40/100/93 09/01/20;patient remains on high flow oxygen 40/100/93 09/02/20; Same 09/03:Same 09/04:Some omproment, Sitting in Chair On 80 percent FIO2, 40 liters NC O 2 High flow 09/05: Patient feels slightly better Continues to be on high flow oxygen wean as tolerated Continue current management 09/06: Patient continues to require high flow oxygen at the settings of 40 L/85 FiO2/O2 sats 97% 09/07; patient continues to remain on high flow oxygen slightly improved 30 L/70 FiO2/O2 sats 100% Social issues, cannot consider LTAC as patient is unfunded History Interval history: I have seen and examined the patient at the bedside Strict isolation and PPE protocols observed per COVID-19 guidelines while evaluating the patient Patient's chart and medications reviewed patient remains on high flow oxygen 40 L/85 FiO2/97 O2 sats Patient in mild distress, on BiPAP No new complaints Vital signs noted Hospitalist Physical - Constitutional Vitals: Temp Pulse Resp BP Pulse Ox 97.7 F 63 7 L 151/66 100 09/06/20 07:49 09/06/20 07:00 09/06/20 07:00 09/06/20 07:00 09/06/20 07:00 General appearance: Present: mild distress, well-nourished, obese - EENT Eyes: Present: PERRL, EOM intact - Neck Neck: Present: supple, normal ROM - Respiratory Respiratory effort: normal Respiratory: bilateral: diminished, rhonchi, negative: rales, wheezing - Cardiovascular Rhythm: regular Heart Sounds: Present: S1 & S2 - Extremities Extremities: no ischemia, No edema Results - Labs CBC & Chem 7: 09/05/20 07:11 09/05/20 07:11 Labs: Laboratory Last Values WBC 14.0 K/mm3 (4.5-11.0) H 09/05/20 07:11 RBC 4.79 M/mm3 (3.65-5.03) 09/05/20 07:11 Hgb 14.0 gm/dl (11.8-15.2) 09/05/20 07:11 Hct 42.3 % (35.5-45.6) 09/05/20 07:11 MCV 88 fl (84-94) 09/05/20 07:11 MCH 29 pg (28-32) 09/05/20 07:11 MCHC 33 % (32-34) 09/05/20 07:11 RDW 14.8 % (13.2-15.2) 09/05/20 07:11 Plt Count 173 K/mm3 (140-440) 09/05/20 07:11 Lymph % (Auto) 10.8 % (13.4-35.0) L 09/05/20 07:11 [place] % (Auto) 5.8 % (0.0-7.3) 09/05/20 07:11 Eos % (Auto) 0.3 % (0.0-4.3) 09/05/20 07:11 Baso % (Auto) 0.5 % (0.0-1.8) 09/05/20 07:11 Lymph # (Auto) 1.5 K/mm3 (1.2-5.4) 09/05/20 07:11 [place] # (Auto) 0.8 K/mm3 (0.0-0.8) 09/05/20 07:11 Eos # (Auto) 0.0 K/mm3 (0.0-0.4) 09/05/20 07:11 Baso # (Auto) 0.1 K/mm3 (0.0-0.1) 09/05/20 07:11 Add Manual Diff Complete 08/17/20 05:06 Total Counted 100 08/17/20 05:06 Seg Neutrophils % 82.6 % (40.0-70.0) H 09/05/20 07:11 Seg Neuts % (Manual) 86.0 % (40.0-70.0) H 08/17/20 05:06 Lymphocytes % (Manual) 7.0 % (13.4-35.0) L 08/17/20 05:06 Monocytes % (Manual) 6.0 % (0.0-7.3) 08/17/20 05:06 Eosinophils % (Manual) 1.0 % (0.0-4.3) 08/17/20 05:06 Metamyelocytes % 2.0 % 08/15/20 05:16 Nucleated RBC % Not Reportable 08/17/20 05:06 Seg Neutrophils # 11.6 K/mm3 (1.8-7.7) H 09/05/20 07:11 Seg Neutrophils # Man 17.8 K/mm3 (1.8-7.7) H 08/17/20 05:06 Band Neutrophils # 0.0 K/mm3 08/17/20 05:06 Lymphocytes # (Manual) 1.4 K/mm3 (1.2-5.4) 08/17/20 05:06 Abs React Lymphs (Man) 0.0 K/mm3 08/17/20 05:06 Monocytes # (Manual) 1.2 K/mm3 (0.0-0.8) H 08/17/20 05:06 Eosinophils # (Manual) 0.2 K/mm3 (0.0-0.4) 08/17/20 05:06 Basophils # (Manual) 0.0 K/mm3 (0.0-0.1) 08/17/20 05:06 Metamyelocytes # 0.0 K/mm3 08/17/20 05:06 Myelocytes # 0.0 K/mm3 08/17/20 05:06 Promyelocytes # 0.0 K/mm3 08/17/20 05:06 Blast Cells # 0.0 K/mm3 08/17/20 05:06 WBC Morphology Not Reportable 08/17/20 05:06 Hypersegmented Neuts Not Reportable 08/17/20 05:06 Hyposegmented Neuts Not Reportable 08/17/20 05:06 Hypogranular Neuts Not Reportable 08/17/20 05:06 Smudge Cells Not Reportable 08/17/20 05:06 Toxic Granulation Not Reportable 08/17/20 05:06 Toxic Vacuolation Not Reportable 08/17/20 05:06 Dohle Bodies Not Reportable 08/17/20 05:06 Pelger-Huet Anomaly Not Reportable 08/17/20 05:06 Juan Luis Rods Not Reportable 08/17/20 05:06 Platelet Estimate Consistent w auto 08/17/20 05:06 Clumped Platelets Not Reportable 08/17/20 05:06 Plt Clumps, EDTA Not Reportable 08/17/20 05:06 Large Platelets Not Reportable 08/17/20 05:06 Giant Platelets Not Reportable 08/17/20 05:06 Platelet Satelliting Not Reportable 08/17/20 05:06 Plt Morphology Comment Not Reportable 08/17/20 05:06 RBC Morphology Not Reportable 08/17/20 05:06 Dimorphic RBCs Not Reportable 08/17/20 05:06 Polychromasia Not Reportable 08/17/20 05:06 Hypochromasia Not Reportable 08/17/20 05:06 Poikilocytosis Not Reportable 08/17/20 05:06 Anisocytosis Few 08/17/20 05:06 Microcytosis Not Reportable 08/17/20 05:06 Macrocytosis Not Reportable 08/17/20 05:06 Spherocytes Not Reportable 08/17/20 05:06 Pappenheimer Bodies Not Reportable 08/17/20 05:06 Sickle Cells Not Reportable 08/17/20 05:06 Target Cells Not Reportable 08/17/20 05:06 Tear Drop Cells Not Reportable 08/17/20 05:06 Ovalocytes Not Reportable 08/17/20 05:06 Helmet Cells Not Reportable 08/17/20 05:06 [place] Bodies Not Reportable 08/17/20 05:06 [place] Rings Not Reportable 08/17/20 05:06 Mobile Cells Not Reportable 08/17/20 05:06 Bite Cells Not Reportable 08/17/20 05:06 Crenated Cell Not Reportable 08/17/20 05:06 Elliptocytes Not Reportable 08/17/20 05:06 Acanthocytes (Spur) Not Reportable 08/17/20 05:06 Rouleaux Not Reportable 08/17/20 05:06 Hemoglobin C Crystals Not Reportable 08/17/20 05:06 Schistocytes Not Reportable 08/17/20 05:06 Malaria parasites Not Reportable 08/17/20 05:06 Asif Bodies Not Reportable 08/17/20 05:06 Hem Pathologist Commnt No 08/17/20 05:06 PT 12.6 Sec. (12.2-14.9) 08/10/20 08:29 INR 0.96 (0.87-1.13) 08/10/20 08:29 D-Dimer 4487.76 ng/mlDDU (0-234) H 08/25/20 16:08 ABG pH 7.313 pH Units (7.350-7.450) L 08/25/20 12:30 POC ABG pCO2 46.9 mmHg (32.0-48.0) 08/14/20 08:23 ABG pCO2 67.2 mm Hg 08/25/20 12:30 POC ABG pO2 50.0 mmHg (83-108) L 08/14/20 08:23 ABG pO2 76.2 mm Hg (80.0-90.0) L 08/25/20 12:30 POC ABG HCO3 31.4 08/14/20 08:23 ABG HCO3 33.3 mmol/L (20.0-26.0) H 08/25/20 12:30 ABG O2 Saturation 94.9 % (95.0-99.0) L 08/25/20 12:30 ABG O2 Content 17.5 (0.0-44) 08/25/20 12:30 POC ABG Base Excess 6.3 08/14/20 08:23 ABG Base Excess 5.0 mmol/L (-2.0-3.0) H 08/25/20 12:30 ABG Hemoglobin 13.4 gm/dl (14.0-18.0) L 08/25/20 12:30 ABG Oxyhemoglobin 84.0 (94-98) L 08/14/20 08:23 ABG Carboxyhemoglobin 1.5 % (0.0-5.0) 08/25/20 12:30 ABG Methemoglobin 0.5 % (0.0-1.5) 08/25/20 12:30 ABG Sodium 139.2 mmol/L (136.0-145.0) 08/14/20 08:23 ABG Potassium 4.5 mmol/L (3.40-4.50) 08/14/20 08:23 ABG Chloride 99.0 mmol/L (98-107) 08/14/20 08:23 ABG Glucose 141 mg/dL (65-95) H 08/14/20 08:23 VBG pH 7.303 (7.320-7.420) L 08/10/20 08:29 Oxyhemoglobin 93.0 % (95.0-99.0) L 08/25/20 12:30 Carboxyhemoglobin 0.9 (0.5-1.5) 08/14/20 08:23 FiO2 80 % 08/25/20 12:30 FiO2 % 100 08/14/20 08:23 Sodium 140 mmol/L (137-145) 09/05/20 07:11 Potassium 4.8 mmol/L (3.6-5.0) 09/05/20 07:11 Chloride 98.5 mmol/L (98-107) 09/05/20 07:11 Carbon Dioxide 36 mmol/L (22-30) H 09/05/20 07:11 Anion Gap 10 mmol/L 09/05/20 07:11 BUN 21 mg/dL (9-20) H 09/05/20 07:11 Creatinine 0.6 mg/dL (0.8-1.3) L 09/05/20 07:11 Estimated GFR > 60 ml/min 09/05/20 07:11 BUN/Creatinine Ratio 35 % 09/05/20 07:11 Glucose 123 mg/dL (75-100) H 09/05/20 07:11 POC Glucose 151 mg/dL (70-105) H 08/21/20 11:17 Hemoglobin A1c 6.1 % (4-6) H 08/11/20 05:39 Lactic Acid 0.80 mmol/L (0.7-2.0) 08/10/20 11:18 Calcium 9.3 mg/dL (8.4-10.2) 09/05/20 07:11 Magnesium 2.40 mg/dL (1.7-2.3) H 08/31/20 10:56 Ferritin 961.4 ng/mL (30.0-300.0) H 08/25/20 16:08 Total Bilirubin 0.50 mg/dL (0.1-1.2) 08/18/20 05:13 AST 50 units/L (5-40) H 08/18/20 05:13 ALT 50 units/L (7-56) 08/18/20 05:13 Alkaline Phosphatase 103 units/L (35-129) 08/18/20 05:13 Lactate Dehydrogenase 959 units/L (91-180) H 08/25/20 16:08 C-Reactive Protein 0.10 mg/dL (0.00-1.30) 08/25/20 16:08 NT-Pro-B Natriuret Pep 36.40 pg/mL (0-450) 08/12/20 06:29 Total Protein 6.9 g/dL (6.3-8.2) 08/18/20 05:13 Albumin 3.7 g/dL (3.9-5) L 08/18/20 05:13 Albumin/Globulin Ratio 1.1 % 08/18/20 05:13 Procalcitonin 0.08 ng/mL (<0.15) 08/21/20 13:39 TSH 1.830 mlU/mL (0.270-4.200) 08/17/20 05:06 Free T4 1.01 ng/dL (0.76-1.46) 08/17/20 05:06 Arterial Blood Glucose 141 mg/dL (65-95) H 08/14/20 08:23 Arterial Blood Ionized Calcium 4.8 mg/dL (4.6-5.3) 08/14/20 08:23 Urine Color Yellow (Yellow) 08/10/20 Unknown Urine Turbidity Cloudy (Clear) 08/10/20 Unknown Urine pH 5.0 (5.0-7.0) 08/10/20 Unknown Ur Specific [place] 1.025 (1.003-1.030) 08/10/20 Unknown Urine Protein 30 mg/dl mg/dL (Negative) 08/10/20 Unknown Urine Glucose (UA) 150 mg/dL (Negative) 08/10/20 Unknown Urine Ketones Negative mg/dL (Negative) 08/10/20 Unknown Urine Blood Negative (Negative) 08/10/20 Unknown Urine Nitrite Negative (Negative) 08/10/20 Unknown Urine Bilirubin Negative (Negative) 08/10/20 Unknown Urine Urobilinogen < 2.0 mg/dL (<2.0) 08/10/20 Unknown Ur Leukocyte Esterase Negative (Negative) 08/10/20 Unknown Urine WBC (Auto) 5.0 /HPF (0.0-6.0) 08/10/20 Unknown Urine RBC (Auto) 2.0 /HPF (0.0-6.0) 08/10/20 Unknown U Epithel Cells (Auto) 1.0 /HPF (0-13.0) 08/10/20 Unknown Urine Bacteria (Auto) 1+ /HPF (Negative) 08/10/20 Unknown Urine Mucus 3+ /HPF 08/10/20 Unknown Coronavirus (PCR) Positive (Negative) A 08/11/20 Unknown Gaytan/IV: Voiding Method Urinal Active Medications - Current Medications Current Medications: Generic Name Dose Route Start Last Admin Trade Name Freq PRN Reason Stop Dose Admin Acetaminophen 650 mg 08/10/20 23:48 08/31/20 00:34 Acetaminophen 325 Mg Tab PO 650 mg Q4H PRN Administration Pain MILD(1-3)/Fever >100.5/MARTINEZ Apixaban 5 mg 08/29/20 22:00 09/05/20 23:06 Apixaban 5 Mg Tab PO 5 mg Q12HR MELANIE Administration Protocol Artificial Tears 2 drops 08/16/20 13:44 Hypromellose 0.5% Ophth Soln 15 Ml OU Q4H PRN Dry Eye(s) Ascorbic Acid 500 mg 08/12/20 10:00 09/05/20 23:06 Ascorbic Acid 500 Mg Tab PO 500 mg BID MELANIE Administration Famotidine 20 mg 08/27/20 12:00 09/05/20 23:06 Famotidine 20 Mg Tab PO 20 mg BID MELANIE Administration Methylprednisolone Sodium Succinate 40 mg 08/31/20 10:00 09/06/20 06:58 Methylprednisolone Sod Succinate 40 Mg/1 Ml Inj IV 40 mg Q8HR MELANIE Administration Metoclopramide HCl 10 mg 08/10/20 23:48 Metoclopramide 10 Mg/2 Ml Inj IV Q6H PRN Nausea And Vomiting Morphine Sulfate 2 mg 08/10/20 23:48 08/25/20 10:20 Morphine 2 Mg/1 Ml Inj IV 2 mg Q4H PRN Administration Pain, Moderate (4-6) Ondansetron HCl 4 mg 08/10/20 23:48 Ondansetron 4 Mg/2 Ml Inj IV Q8H PRN Nausea And Vomiting Oxycodone/Acetaminophen 1 tab 08/10/20 23:48 08/25/20 21:08 Oxycodone /Acetaminophen 5-325mg Tab PO 1 tab Q6H PRN Administration Pain, Moderate (4-6) Sodium Chloride 10 ml 08/11/20 10:00 09/05/20 23:06 Sodium Chloride 0.9% 10 Ml Flush Syringe IV 10 ml BID MELANIE Administration Sodium Chloride 10 ml 08/10/20 23:48 08/12/20 21:04 Sodium Chloride 0.9% 10 Ml Flush Syringe IV 10 ml PRN PRN Administration LINE FLUSH Zinc Sulfate 220 mg 08/12/20 12:00 09/05/20 09:15 Zinc Sulfate 220 Mg Cap PO 220 mg QDAY MELANIE Administration Nutrition/Malnutrition Assess - Dietary Evaluation Nutrition/Malnutrition Findings: Nutrition Notes Start: 08/17/20 10:49 Freq: Status: Active Protocol: Document 09/05/20 15:18 CW (Rec: 09/05/20 15:24 CW [id number]) Nutrition Notes Initial or Follow up Reassessment Other Pertinent Diagnosis COVID-19 (+), pneu, RLE DVT, sinus bradycardia Current Diet Regular Labs/Tests BUN 21 Pertinent Medications LASIX Solumderol Height 5 ft 11 in Weight 132.1 kg [place] Body Weight (kg) 78.18 BMI 40.6 Weight change and time frame weight fluctuation likely r/t to fluid overload Weight Status Morbidly Obese Subjective/Other Information F/U for intakes and ONS tolerance. PER RN pt eating well. PO itnake is 100% of meals and ONS. Percent of energy/protein needs met: 100%/100% Burn Absent Trauma Absent Cultural/Ethnic/Samaritan Belief Requests salads with chicken Current % PO Good (75-100%) Minimum of two criteria No #1 Nutrition Diagnosis Inadequate oral intake As Evidenced by Signs and Symptoms Pt eating 100% of meals and ONS Diagnosis Progress(for reassessment Improved documentation) Is patient on ventilator? No Is Patient Ambulatory and/or Out of Bed No REE-([place]-confined to bed) 2770.944 Kcal/Kg value to use for calculation 16 Approximate Energy Requirements Using 2114 kcal/Kg Calculation Used for Recommendations Kcal/kg Additional Notes Pro needs 0.8-1g/kg adjBW: 90- 113g/day Fluid needs 1ml/kcal Nutrition Intervention Change Diet Order: Continue current diet as tolerated Add Supplement/Snack (indicate name/kcal Ensure High Protein Q6 /protein ) Provides kCal: 160 Provides Protein (gm) 16 Goal #1 Stable PO intakes Goal #2 PO intake of meals plus ONS to meet at least 75% energy and pro needs Anticipated Discharge Needs: Regular Diet Follow-Up By: 09/08/20 Additional Comments F/U for stable intakes and ONS tolerance
[2020-09-06] MEDS: ASCORBIC ACID 500 MG TAB PO SCH ×2 (09:33→22:27)
[2020-09-06] MEDS: ZINC SULFATE 220 MG CAP PO SCH (09:33)
[2020-09-06] MEDS: APIXABAN 5 MG TAB PO SCH ×2 (09:33→22:27)
[2020-09-06] MEDS: FAMOTIDINE 20 MG TAB PO SCH ×2 (09:33→22:27)
[2020-09-06 11:19] LABS: C-Reactive Protein 0.1 mg/dL (0.00-1.30)
--- NOTE | 2020-09-06 15:11 | Progress Note ---
Assessment and Plan 30 y/o morbidly obese male with acute respiratory failure secondary to COVID 19 pneumonia. now found to have DVT in lower ext. 09/06/20: Will continue steroids. Likely will stop in next 48 hours as patient not having improvement. Inflammatory markers are better. Would be a good candidate for LTACH but no funding. Prone as much as tolerated. Guarded prognosis. hold on lasix today, suggest checking labs tomorrow. 09/05/20: Lasix again today. Will continue steroids. Prne as much as tolerated. Guarded prognosis. 09/04/20: Will continue steroids given mild improvement. Prone as much as tolerated. Lasix again today. Bipap at night. 09/01/20: Continue steroids at least through the weekend. Continue to prone as much as tolerated. Lasix 40mg IV again today. BIpap QHS. Very very guarded prognosis. He has been hanging out in the high 80's low 90's for weeks now. 08/31/20: Going to place patient back on steroids. Will do solumedrol 40q8 at least for the next 48-72 hours to see if this helps. Checked stat labs this morning to evaluate renal function and potassium levels before anymore lasix is given. Continue to prone as tolerated and bipap QHS. Prognosis remains guarded. 08/30/20: Proning is a must. Will give lasix 40 today. Continue anticoagulation. Prognosis remians very very guarded. Avoid intubation at all costs. 08/29/20: Continue to prone as tolerated during the day and sleep prone at night. HOld on lasix today. Continue anticoagulation. Guarded prognosis. 08/28/20: Continue to prone as tolerated. Today will give lasix 40 to see if this helps. Will discuss with cardiology about echo. Clinically patient looks the same and not in distress. If PE is present, likely not large enough for EKOS. Given his high O2 requirement, prefer not to try CTA at this time as I feel the risks outweigh the benefits. 08/27/20: Long discussion with patient again at bedside today. May need to co nsider repeat ECHO to look for right heart strain. We know he had VTE in the lower ext but never had to oppurtunity to truly rule him out for PE. Cousin who is an GLUE SP[employer]ING MACHINE OPERATOR in outpatient setting at [employer] asked some questions so I spoke with her via the phone. She is going to help encourage proning. Will give more lasix today. Very very guarded prognosis. 08/26/20: Pulm status is more stable today compared to yesterday. Continue bipap PRN and QHS. Will give IV lasix again today. Prognosis still remains very guarded. 08/25/20: Placed back on bipap this am secondary to desaturations and lower m ental state than before. Patient has been stable and making improvements but now seems to be headed in the wrong direction. Will monitor very closely as he is a high risk for intubation and bad outcomes. Very very guarded prognosis. Will give lasix today. 08/24/20: Encouraged more proning. Continue BIpap QHS and PRN. unfortunately, no funding, patient would be a good LTACH candidate as he will likely take a long time to wean from HFNC. 08/23/20: No new recs. Proning is metcalf. Will continue to follow. Appreciate ID recs and help. 08/22/20: Bipap PRN and QHS. Will given lasix today. Prone as tolerated. PT continues. Slight improvement. Will continue to follow. 08/21/20: Bipap PRN and QHS. Hold on lasix today. Continue to prone as much as tolerated. Will order PT consult. 08/18/20: Bipap pRN and QHS. More lasix today. Prone as tolerated during the day and sleep prone at night. Continue to try to hold off on intubation. Guarded prognosis. 08/17/20: Continue anticoagulation. Still trying to prevent intubation however will do electively if and when needed to prevent and emergent situation as patient will likely be difficult given neck and body habitus. Continue prone as tolerated. Steroids and remdesivir. 08/16/20: Anticoagulation. Prone as tolerated. Wean bipap as tolerated. Prognosis remains guarded. Trying to prevent intubation given poor outcomes associated with mechanically ventilated obese COVID patients. 08/15/20: Continue therapeutic anticoagulation. No current indication for vascular consult given no evidence of right heart strain on echo. CT would only be beneficial if we thought it would show large enough clot to warrant EKOS and with no evidence of strain, I doubt that will be the case. Continue proning as much as tolerated. Spoke with mother over the phone to update her. Patient also got actemra on yesterday as well. Prognosis remains guarded 08/14/20: Will accept sats in the mid 80's as long as mental state and work of breathing do not change. AGree with lasix therapy. Found to have large DVT on right. Spoke with [facility] and asked them to order stat echo to look for right heart strain, and if present may need to consider echos. Await echo before vascular consult. Prone if possible. Long discussion with mother on phone. Gave her a list of the meds he is on and what our current plan is. Also very candid with her and son at bedside that the mortality rate with COVID is very very high. 08/13/20: Lasix again today. Continue to alternate between HFNC with NRB and bipap. Prognosis is very very guarded. Very very guarded to poor prognosis given CXR appearance, and body habitus, along with rapid decline in self sustaning oxygen levels. Agree with lasix and increase in steroids. Must prone. Very high likelihood for mechanical ventilation which would carry a high mortality for patient. Will continue to f ollow. No additional IVF's unless indicated. Subjective Date of service: 09/06/20 Principal diagnosis: COVID Interval history: Still on HFNC but now at 85%. Sats stable. BP stable. Objective Vital Signs - 12hr 09/06/20 09/06/20 09/06/20 03:27 03:32 04:00 Temperature 98.1 F Pulse Rate 74 64 62 Respiratory 11 L 8 L Rate Blood Pressure 112/77 130/80 O2 Sat by Pulse 100 99 Oximetry 09/06/20 09/06/20 09/06/20 04:30 05:00 05:30 Temperature Pulse Rate 61 71 60 Respiratory 11 L 15 11 L Rate Blood Pressure 130/80 130/80 131/88 O2 Sat by Pulse 99 98 99 Oximetry 09/06/20 09/06/20 09/06/20 06:00 06:30 07:00 Temperature Pulse Rate 75 58 L 63 Respiratory 12 11 L 7 L Rate Blood Pressure 131/88 151/128 151/66 O2 Sat by Pulse 99 100 Oximetry 09/06/20 09/06/20 09/06/20 07:49 09:07 09:25 Temperature 97.7 F Pulse Rate 82 Respiratory 20 Rate Blood Pressure 122/60 O2 Sat by Pulse 99 98 Oximetry 09/06/20 09/06/20 12:35 13:24 Temperature 99.1 F Pulse Rate Respiratory Rate Blood Pressure O2 Sat by Pulse 99 Oximetry Constitutional: no acute distress, alert Eyes: non-icteric ENT: oropharynx moist Neck: supple Effort: normal Ascultation: Bilateral: clear Cardiovascular: regular rate and rhythm (no mrg) Gastrointestinal: normoactive bowel sounds, soft, non-distended Integumentary: normal Extremities: no cyanosis, no edema, pink and warm Neurologic: normal mental status, non-focal exam Psychiatric: mood appropriate, affect normal CBC and BMP: 09/05/20 07:11 09/05/20 07:11 ABG, PT/INR, D-dimer: ABG ABG pH 7.313 pH Units (7.350-7.450) L 08/25/20 12:30 POC ABG pCO2 46.9 mmHg (32.0-48.0) 08/14/20 08:23 ABG pCO2 67.2 mm Hg 08/25/20 12:30 POC ABG pO2 50.0 mmHg (83-108) L 08/14/20 08:23 ABG pO2 76.2 mm Hg (80.0-90.0) L 08/25/20 12:30 POC ABG HCO3 31.4 08/14/20 08:23 ABG O2 Saturation 94.9 % (95.0-99.0) L 08/25/20 12:30 PT/INR, D-dimer PT 12.6 Sec. (12.2-14.9) 08/10/20 08:29 INR 0.96 (0.87-1.13) 08/10/20 08:29 D-Dimer 877.51 ng/mlDDU (0-234) H 09/06/20 10:43 Abnormal lab findings: Abnormal Labs 08/10/20 08/10/20 08/10/20 08:29 08:29 08:29 WBC Lymph % (Auto) [place] % (Auto) 8.4 H Lymph # (Auto) [place] # (Auto) Seg Neutrophils % Seg Neuts % (Manual) Lymphocytes % (Manual) Seg Neutrophils # Seg Neutrophils # Man Lymphocytes # (Manual) Monocytes # (Manual) D-Dimer ABG pH POC ABG pCO2 POC ABG pO2 ABG pO2 ABG HCO3 ABG O2 Saturation ABG Base Excess ABG Hemoglobin ABG Oxyhemoglobin ABG Potassium ABG Glucose VBG pH 7.303 L Oxyhemoglobin Sodium Potassium Chloride Carbon Dioxide BUN Creatinine Glucose 132 H POC Glucose Hemoglobin A1c Magnesium Ferritin AST Lactate Dehydrogenase C-Reactive Protein Albumin Arterial Blood Glucose Coronavirus (PCR) 08/11/20 08/11/20 08/11/20 05:39 05:39 05:39 WBC Lymph % (Auto) 12.5 L [place] % (Auto) Lymph # (Auto) [place] # (Auto) Seg Neutrophils % 84.2 H Seg Neuts % (Manual) Lymphocytes % (Manual) Seg Neutrophils # 9.1 H Seg Neutrophils # Man Lymphocytes # (Manual) Monocytes # (Manual) D-Dimer ABG pH POC ABG pCO2 POC ABG pO2 ABG pO2 ABG HCO3 ABG O2 Saturation ABG Base Excess ABG Hemoglobin ABG Oxyhemoglobin ABG Potassium ABG Glucose VBG pH Oxyhemoglobin Sodium Potassium Chloride Carbon Dioxide BUN Creatinine Glucose 125 H POC Glucose Hemoglobin A1c 6.1 H Magnesium Ferritin AST Lactate Dehydrogenase C-Reactive Protein Albumin Arterial Blood Glucose Coronavirus (PCR) 08/11/20 08/11/20 08/11/20 18:58 18:58 18:58 WBC Lymph % (Auto) [place] % (Auto) Lymph # (Auto) [place] # (Auto) Seg Neutrophils % Seg Neuts % (Manual) Lymphocytes % (Manual) Seg Neutrophils # Seg Neutrophils # Man Lymphocytes # (Manual) Monocytes # (Manual) D-Dimer 464.84 H ABG pH POC ABG pCO2 POC ABG pO2 ABG pO2 ABG HCO3 ABG O2 Saturation ABG Base Excess ABG Hemoglobin ABG Oxyhemoglobin ABG Potassium ABG Glucose VBG pH Oxyhemoglobin Sodium Potassium Chloride Carbon Dioxide BUN Creatinine Glucose POC Glucose Hemoglobin A1c Magnesium Ferritin 528.7 H AST Lactate Dehydrogenase 637 H C-Reactive Protein 11.30 H Albumin Arterial Blood Glucose Coronavirus (PCR) 08/11/20 08/11/20 08/12/20 19:08 Unknown 06:29 WBC 11.2 H Lymph % (Auto) 8.6 L [place] % (Auto) Lymph # (Auto) 1.0 L [place] # (Auto) Seg Neutrophils % 88.3 H Seg Neuts % (Manual) Lymphocytes % (Manual) Seg Neutrophils # 9.8 H Seg Neutrophils # Man Lymphocytes # (Manual) Monocytes # (Manual) D-Dimer ABG pH POC ABG pCO2 POC ABG pO2 ABG pO2 ABG HCO3 ABG O2 Saturation ABG Base Excess ABG Hemoglobin ABG Oxyhemoglobin ABG Potassium ABG Glucose VBG pH Oxyhemoglobin Sodium Potassium Chloride Carbon Dioxide BUN Creatinine Glucose 161 H POC Glucose Hemoglobin A1c Magnesium Ferritin AST Lactate Dehydrogenase C-Reactive Protein Albumin Arterial Blood Glucose Coronavirus (PCR) Positive A 08/12/20 08/12/20 08/12/20 06:29 06:29 06:29 WBC Lymph % (Auto) [place] % (Auto) Lymph # (Auto) [place] # (Auto) Seg Neutrophils % Seg Neuts % (Manual) Lymphocytes % (Manual) Seg Neutrophils # Seg Neutrophils # Man Lymphocytes # (Manual) Monocytes # (Manual) D-Dimer 830.34 H ABG pH POC ABG pCO2 POC ABG pO2 ABG pO2 ABG HCO3 ABG O2 Saturation ABG Base Excess ABG Hemoglobin ABG Oxyhemoglobin ABG Potassium ABG Glucose VBG pH Oxyhemoglobin Sodium Potassium Chloride Carbon Dioxide 31 H BUN Creatinine Glucose 138 H POC Glucose Hemoglobin A1c Magnesium Ferritin 572.6 H AST 42 H Lactate Dehydrogenase 706 H C-Reactive Protein 17.30 H Albumin 3.7 L Arterial Blood Glucose Coronavirus (PCR) 08/12/20 08/12/20 08/12/20 13:21 14:55 21:59 WBC Lymph % (Auto) [place] % (Auto) Lymph # (Auto) [place] # (Auto) Seg Neutrophils % Seg Neuts % (Manual) Lymphocytes % (Manual) Seg Neutrophils # Seg Neutrophils # Man Lymphocytes # (Manual) Monocytes # (Manual) D-Dimer ABG pH 7.315 L POC ABG pCO2 57.1 H POC ABG pO2 47.8 L ABG pO2 65.8 L ABG HCO3 31.4 H ABG O2 Saturation 91.7 L ABG Base Excess ABG Hemoglobin 19.3 H ABG Oxyhemoglobin ABG Potassium 4.9 H ABG Glucose 182 H VBG pH Oxyhemoglobin 89.7 L Sodium Potassium Chloride Carbon Dioxide BUN Creatinine Glucose POC Glucose 142 H Hemoglobin A1c Magnesium Ferritin AST Lactate Dehydrogenase C-Reactive Protein Albumin Arterial Blood Glucose 182 H Coronavirus (PCR) 08/13/20 08/13/20 08/13/20 05:35 05:35 12:11 WBC 12.0 H Lymph % (Auto) 8.1 L [place] % (Auto) Lymph # (Auto) 1.0 L [place] # (Auto) Seg Neutrophils % 88.0 H Seg Neuts % (Manual) Lymphocytes % (Manual) Seg Neutrophils # 10.5 H Seg Neutrophils # Man Lymphocytes # (Manual) Monocytes # (Manual) D-Dimer ABG pH POC ABG pCO2 POC ABG pO2 ABG pO2 ABG HCO3 ABG O2 Saturation ABG Base Excess ABG Hemoglobin ABG Oxyhemoglobin ABG Potassium ABG Glucose VBG pH Oxyhemoglobin Sodium Potassium 5.1 H Chloride Carbon Dioxide 31 H BUN 25 H Creatinine Glucose 174 H POC Glucose 154 H Hemoglobin A1c Magnesium Ferritin AST 41 H Lactate Dehydrogenase 996 H C-Reactive Protein Albumin 3.8 L Arterial Blood Glucose Coronavirus (PCR) 08/13/20 08/13/20 08/14/20 16:18 23:24 05:21 WBC 14.2 H Lymph % (Auto) 8.2 L [place] % (Auto) Lymph # (Auto) [place] # (Auto) 0.9 H Seg Neutrophils % 85.4 H Seg Neuts % (Manual) Lymphocytes % (Manual) Seg Neutrophils # 12.2 H Seg Neutrophils # Man Lymphocytes # (Manual) Monocytes # (Manual) D-Dimer ABG pH POC ABG pCO2 POC ABG pO2 ABG pO2 ABG HCO3 ABG O2 Saturation ABG Base Excess ABG Hemoglobin ABG Oxyhemoglobin ABG Potassium ABG Glucose VBG pH Oxyhemoglobin Sodium Potassium Chloride Carbon Dioxide BUN Creatinine Glucose POC Glucose 188 H 127 H Hemoglobin A1c Magnesium Ferritin AST Lactate Dehydrogenase C-Reactive Protein Albumin Arterial Blood Glucose Coronavirus (PCR) 08/14/20 08/14/20 08/14/20 05:21 05:21 05:21 WBC Lymph % (Auto) [place] % (Auto) Lymph # (Auto) [place] # (Auto) Seg Neutrophils % Seg Neuts % (Manual) Lymphocytes % (Manual) Seg Neutrophils # Seg Neutrophils # Man Lymphocytes # (Manual) Monocytes # (Manual) D-Dimer > 73861 H ABG pH POC ABG pCO2 POC ABG pO2 ABG pO2 ABG HCO3 ABG O2 Saturation ABG Base Excess ABG Hemoglobin ABG Oxyhemoglobin ABG Potassium ABG Glucose VBG pH Oxyhemoglobin Sodium Potassium Chloride Carbon Dioxide 32 H 33 H BUN 26 H 26 H Creatinine Glucose 152 H 156 H POC Glucose Hemoglobin A1c Magnesium Ferritin AST 53 H 54 H Lactate Dehydrogenase 1249 H C-Reactive Protein 9.90 H Albumin 3.7 L 3.7 L Arterial Blood Glucose Coronavirus (PCR) 08/14/20 08/14/20 08/14/20 05:21 05:58 08:23 WBC Lymph % (Auto) [place] % (Auto) Lymph # (Auto) [place] # (Auto) Seg Neutrophils % Seg Neuts % (Manual) Lymphocytes % (Manual) Seg Neutrophils # Seg Neutrophils # Man Lymphocytes # (Manual) Monocytes # (Manual) D-Dimer ABG pH POC ABG pCO2 POC ABG pO2 50.0 L ABG pO2 ABG HCO3 ABG O2 Saturation ABG Base Excess ABG Hemoglobin ABG Oxyhemoglobin 84.0 L ABG Potassium ABG Glucose 141 H VBG pH Oxyhemoglobin Sodium Potassium Chloride Carbon Dioxide BUN Creatinine Glucose POC Glucose 139 H Hemoglobin A1c Magnesium Ferritin 1198.0 H AST Lactate Dehydrogenase C-Reactive Protein Albumin Arterial Blood Glucose 141 H Coronavirus (PCR) 08/15/20 08/15/20 08/16/20 05:16 05:16 05:26 WBC 13.7 H 17.7 H Lymph % (Auto) 8.2 L [place] % (Auto) Lymph # (Auto) [place] # (Auto) Seg Neutrophils % 86.2 H Seg Neuts % (Manual) 91.0 H 88.0 H Lymphocytes % (Manual) 7.0 L 9.0 L Seg Neutrophils # 15.3 H Seg Neutrophils # Man 12.5 H 15.6 H Lymphocytes # (Manual) 1.0 L Monocytes # (Manual) D-Dimer ABG pH POC ABG pCO2 POC ABG pO2 ABG pO2 ABG HCO3 ABG O2 Saturation ABG Base Excess ABG Hemoglobin ABG Oxyhemoglobin ABG Potassium ABG Glucose VBG pH Oxyhemoglobin Sodium Potassium Chloride Carbon Dioxide 32 H BUN 29 H Creatinine Glucose 150 H POC Glucose Hemoglobin A1c Magnesium Ferritin AST Lactate Dehydrogenase 1150 H C-Reactive Protein Albumin 3.5 L Arterial Blood Glucose Coronavirus (PCR) 08/16/20 08/16/20 08/16/20 05:26 05:26 05:26 WBC Lymph % (Auto) [place] % (Auto) Lymph # (Auto) [place] # (Auto) Seg Neutrophils % Seg Neuts % (Manual) Lymphocytes % (Manual) Seg Neutrophils # Seg Neutrophils # Man Lymphocytes # (Manual) Monocytes # (Manual) D-Dimer > 29179 H ABG pH POC ABG pCO2 POC ABG pO2 ABG pO2 ABG HCO3 ABG O2 Saturation ABG Base Excess ABG Hemoglobin ABG Oxyhemoglobin ABG Potassium ABG Glucose VBG pH Oxyhemoglobin Sodium Potassium 5.2 H Chloride Carbon Dioxide BUN 25 H Creatinine Glucose 163 H POC Glucose Hemoglobin A1c Magnesium Ferritin 1013.0 H AST Lactate Dehydrogenase C-Reactive Protein 4.00 H Albumin 3.6 L Arterial Blood Glucose Coronavirus (PCR) 08/17/20 08/17/20 08/17/20 05:06 05:06 07:51 WBC 20.7 H Lymph % (Auto) [place] % (Auto) Lymph # (Auto) [place] # (Auto) Seg Neutrophils % Seg Neuts % (Manual) 86.0 H Lymphocytes % (Manual) 7.0 L Seg Neutrophils # Seg Neutrophils # Man 17.8 H Lymphocytes # (Manual) Monocytes # (Manual) 1.2 H D-Dimer ABG pH POC ABG pCO2 POC ABG pO2 ABG pO2 ABG HCO3 ABG O2 Saturation ABG Base Excess ABG Hemoglobin ABG Oxyhemoglobin ABG Potassium ABG Glucose VBG pH Oxyhemoglobin Sodium Potassium Chloride 96.5 L Carbon Dioxide 31 H BUN 29 H Creatinine Glucose 121 H POC Glucose 110 H Hemoglobin A1c Magnesium Ferritin AST 46 H Lactate Dehydrogenase C-Reactive Protein Albumin 3.7 L Arterial Blood Glucose Coronavirus (PCR) 08/17/20 08/17/20 08/18/20 11:42 21:45 05:13 WBC Lymph % (Auto) [place] % (Auto) Lymph # (Auto) [place] # (Auto) Seg Neutrophils % Seg Neuts % (Manual) Lymphocytes % (Manual) Seg Neutrophils # Seg Neutrophils # Man Lymphocytes # (Manual) Monocytes # (Manual) D-Dimer > 1000 H ABG pH POC ABG pCO2 POC ABG pO2 ABG pO2 ABG HCO3 ABG O2 Saturation ABG Base Excess ABG Hemoglobin ABG Oxyhemoglobin ABG Potassium ABG Glucose VBG pH Oxyhemoglobin Sodium Potassium Chloride Carbon Dioxide BUN Creatinine Glucose POC Glucose 122 H 143 H Hemoglobin A1c Magnesium Ferritin AST Lactate Dehydrogenase C-Reactive Protein Albumin Arterial Blood Glucose Coronavirus (PCR) 08/18/20 08/18/20 08/21/20 05:13 05:13 11:17 WBC Lymph % (Auto) [place] % (Auto) Lymph # (Auto) [place] # (Auto) Seg Neutrophils % Seg Neuts % (Manual) Lymphocytes % (Manual) Seg Neutrophils # Seg Neutrophils # Man Lymphocytes # (Manual) Monocytes # (Manual) D-Dimer ABG pH POC ABG pCO2 POC ABG pO2 ABG pO2 ABG HCO3 ABG O2 Saturation ABG Base Excess ABG Hemoglobin ABG Oxyhemoglobin ABG Potassium ABG Glucose VBG pH Oxyhemoglobin Sodium 133 L Potassium Chloride 94.7 L Carbon Dioxide BUN 33 H Creatinine Glucose 110 H POC Glucose 151 H Hemoglobin A1c Magnesium Ferritin 979.8 H AST 50 H Lactate Dehydrogenase C-Reactive Protein Albumin 3.7 L Arterial Blood Glucose Coronavirus (PCR) 08/21/20 08/21/20 08/21/20 13:39 13:39 15:55 WBC Lymph % (Auto) [place] % (Auto) Lymph # (Auto) [place] # (Auto) Seg Neutrophils % Seg Neuts % (Manual) Lymphocytes % (Manual) Seg Neutrophils # Seg Neutrophils # Man Lymphocytes # (Manual) Monocytes # (Manual) D-Dimer 6731.66 H ABG pH POC ABG pCO2 POC ABG pO2 ABG pO2 ABG HCO3 ABG O2 Saturation ABG Base Excess ABG Hemoglobin ABG Oxyhemoglobin ABG Potassium ABG Glucose VBG pH Oxyhemoglobin Sodium Potassium Chloride Carbon Dioxide BUN Creatinine Glucose POC Glucose Hemoglobin A1c Magnesium Ferritin 1019.0 H AST Lactate Dehydrogenase 1251 H C-Reactive Protein Albumin Arterial Blood Glucose Coronavirus (PCR) 08/22/20 08/22/20 08/25/20 05:23 05:23 12:30 WBC 24.7 H Lymph % (Auto) [place] % (Auto) Lymph # (Auto) [place] # (Auto) Seg Neutrophils % Seg Neuts % (Manual) Lymphocytes % (Manual) Seg Neutrophils # Seg Neutrophils # Man Lymphocytes # (Manual) Monocytes # (Manual) D-Dimer ABG pH 7.313 L POC ABG pCO2 POC ABG pO2 ABG pO2 76.2 L ABG HCO3 33.3 H ABG O2 Saturation 94.9 L ABG Base Excess 5.0 H ABG Hemoglobin 13.4 L ABG Oxyhemoglobin ABG Potassium ABG Glucose VBG pH Oxyhemoglobin 93.0 L Sodium 136 L Potassium Chloride 96.3 L Carbon Dioxide BUN 24 H Creatinine 0.7 L Glucose 115 H POC Glucose Hemoglobin A1c Magnesium Ferritin AST Lactate Dehydrogenase C-Reactive Protein Albumin Arterial Blood Glucose Coronavirus (PCR) 08/25/20 08/25/20 08/25/20 16:08 16:08 16:08 WBC Lymph % (Auto) [place] % (Auto) Lymph # (Auto) [place] # (Auto) Seg Neutrophils % Seg Neuts % (Manual) Lymphocytes % (Manual) Seg Neutrophils # Seg Neutrophils # Man Lymphocytes # (Manual) Monocytes # (Manual) D-Dimer 4487.76 H ABG pH POC ABG pCO2 POC ABG pO2 ABG pO2 ABG HCO3 ABG O2 Saturation ABG Base Excess ABG Hemoglobin ABG Oxyhemoglobin ABG Potassium ABG Glucose VBG pH Oxyhemoglobin Sodium Potassium Chloride Carbon Dioxide BUN Creatinine Glucose POC Glucose Hemoglobin A1c Magnesium Ferritin 961.4 H AST Lactate Dehydrogenase 959 H C-Reactive Protein Albumin Arterial Blood Glucose Coronavirus (PCR) 08/26/20 08/26/20 08/31/20 07:11 07:11 10:56 WBC Lymph % (Auto) [place] % (Auto) 9.8 H Lymph # (Auto) [place] # (Auto) 1.0 H Seg Neutrophils % Seg Neuts % (Manual) Lymphocytes % (Manual) Seg Neutrophils # Seg Neutrophils # Man Lymphocytes # (Manual) Monocytes # (Manual) D-Dimer ABG pH POC ABG pCO2 POC ABG pO2 ABG pO2 ABG HCO3 ABG O2 Saturation ABG Base Excess ABG Hemoglobin ABG Oxyhemoglobin ABG Potassium ABG Glucose VBG pH Oxyhemoglobin Sodium 135 L Potassium Chloride 95.7 L 97.4 L Carbon Dioxide 33 H 34 H BUN Creatinine 0.6 L Glucose 109 H POC Glucose Hemoglobin A1c Magnesium 2.40 H Ferritin AST Lactate Dehydrogenase C-Reactive Protein Albumin Arterial Blood Glucose Coronavirus (PCR) 09/05/20 09/05/20 09/06/20 07:11 07:11 10:43 WBC 14.0 H Lymph % (Auto) 10.8 L [place] % (Auto) Lymph # (Auto) [place] # (Auto) Seg Neutrophils % 82.6 H Seg Neuts % (Manual) Lymphocytes % (Manual) Seg Neutrophils # 11.6 H Seg Neutrophils # Man Lymphocytes # (Manual) Monocytes # (Manual) D-Dimer 877.51 H ABG pH POC ABG pCO2 POC ABG pO2 ABG pO2 ABG HCO3 ABG O2 Saturation ABG Base Excess ABG Hemoglobin ABG Oxyhemoglobin ABG Potassium ABG Glucose VBG pH Oxyhemoglobin Sodium Potassium Chloride Carbon Dioxide 36 H BUN 21 H Creatinine 0.6 L Glucose 123 H POC Glucose Hemoglobin A1c Magnesium Ferritin AST Lactate Dehydrogenase C-Reactive Protein Albumin Arterial Blood Glucose Coronavirus (PCR) 09/06/20 09/06/20 10:43 10:43 WBC Lymph % (Auto) [place] % (Auto) Lymph # (Auto) [place] # (Auto) Seg Neutrophils % Seg Neuts % (Manual) Lymphocytes % (Manual) Seg Neutrophils # Seg Neutrophils # Man Lymphocytes # (Manual) Monocytes # (Manual) D-Dimer ABG pH POC ABG pCO2 POC ABG pO2 ABG pO2 ABG HCO3 ABG O2 Saturation ABG Base Excess ABG Hemoglobin ABG Oxyhemoglobin ABG Potassium ABG Glucose VBG pH Oxyhemoglobin Sodium Potassium Chloride Carbon Dioxide BUN Creatinine Glucose POC Glucose Hemoglobin A1c Magnesium Ferritin 666.4 H AST Lactate Dehydrogenase 607 H C-Reactive Protein Albumin Arterial Blood Glucose Coronavirus (PCR)
[2020-09-07] MEDS: methylPREDNISolone Sod Succinate 40 MG/1 ML INJ IV SCH ×3 (06:45→22:54)
--- NOTE | 2020-09-07 08:21 | Progress Note ---
Assessment and Plan Assessment and plan: Patient remains on high flow oxygen, clinically no change Guarded prognosis --Acute hypoxic respiratory failure secondary to COVID-19 PNA Pt remains on high flow oxygen 40/100/93 intermittent 100% nonrebreather Patient unstable to go for CTA chest to evaluate the cause of persistent hypoxia pulmonary following, Home O2 evaluation at discharge --COVID-19 Pneumonia Continue antibiotics Continue steroids total 10 days s/p Remdesivir, s/p tocilizumab On HF NCO 2, titrate and wean as tolerated Decreased to 40 L/ 85 percent Fio2/97% O2 sats --Right lower extremity DVT on LE Doppler study LE Doppler LE Doppler shows RLE DVT. Echocardiogram shows no right heart strain. On Eliquis per protocol --Sinus bradycardia /resolved Likely from remdesivir Heart rate in 60s and 70s today TSH wnl --Morbid obesity; BMI 41.9 Diet and exercise advised Patient needs outpatient bariatric surgical/medical weight reduction consult when medically stable --Positive DVT ;-on Eliquis Continues to be on high flow oxygen, Wean as tolerated We will closely monitor the patient and adjust management as needed Clinical Account Specialist recommendations noted and appreciated Plan of care reviewed with the patient and his nurse and the case management The high probability of a clinically significant, sudden or life threatening deterioration of the [pulmonary,Vascular,ID,CVS and hematology] system(s) required my full and direct attention, intervention and personal management. The aggregate critical care time was [33] minutes. This time is in addition to time spent performing reported procedures but includes the following: [x] Data Review and interpretation [x] Patient assessment and monitoring of vital signs [x] Documentation [x] Medication orders and management Brief history 30-year-old male with morbid obesity weighing about 310 pounds was admitted through emergency room with frontal headache for 3 days. Patient was noted to be hypoxic with shortness of breath and cough O2 sats room air were in the 80s, requiring high flow oxygen, BiPAP, patient was admitted to IMCU Patient was PUI, placed in isolation, gillespie PCR test was positive, evaluated by ID and pulmonary, medications optimized and patient was being managed per COVID-19 protocols and guidelines. Patient continues to depend on high flow oxygen and BiPAP. Today patient continues to be on very high flow oxygen of 40 L/85% FiO2/94 to 96% O2 sats Patient advised bariatric surgical consultation upon discharge for weight reduction program Work-up in the emergency room showed bilateral patchy opacities in the lungs and hypoxia-hence he was admitted for bilateral pneumonia and possible Covid pneumonia. No significant past medical history Daily Hospital course: 08/11. Patient seen examined at bedside this morning. Has no complaints. Febrile this a.m.-103 Fahrenheit. On Tylenol as needed. COVID-19 test ordered. Remains on steroids. ID consult if COVID-19 is positive. 08/12. His COVID-19 test is positive. He was started on remdesivir last night. Oxygen requirement increased overnight. Inflammatory markers increasing. Repeat chest xray shows worsening infiltrates. Ordered BNP. Lasix 40mg IV ordered. Increased dexamethasone to 6mg BID. Pulmonology consulted. Will place on continuous pulse oximetry. Incentive spirometer ordered. Advised prone positioning. 08/13. Not feeling better. Seen on BIPAP. Remains on steroids, remdesivir and antibiotics. Vitals stable. 08/14. Still maintaining sats even on BiPAP. Lasix 40 mg IV ordered. D-dimer this a.m. is more than 10,000. Lovenox increased to 150 mg twice daily. Ultrasound lower extremities Doppler showed a right DVT. Echocardiogram ordered to rule out right heart strain. Pending results, patient may need vascular surgery evaluation for possible thrombectomy. Continue on BiPAP and continue to monitor respiratory status closely. 08/15. Sats better this AM. Received toculizumab yesterday. Advised him to prone as much as possible. Echo shows normal EF with no right heart strain. I/Os reviewed. He is diuresing well. Renal function is stable. Will give additional lasix today. Pulmonology following 08/16. Remains on remdesivir. Still on BIPAP. Will give lasix 20mg IV. HR is low - likley effect of remdesivir. Will continue to monitor closely 08/17. Sats in the 90's this AM. Still on BIPAP. 08/18; patient remains hypoxic requiring BiPAP and 100% nonrebreather intermittently 08/19; Continue supportive care, wean oxygen as tolerated. Encouraged PRONE positioning if able to tolerate. 08/20:Remains on BiPAP. continue lasix, still not proninig, encouraged to prone, FIO2 down to 90% with sat of 96%. Continue care, prognosis still guarded. 08/21: Patient down on high flow. Continue to encourage proning position. Still with guarded prognosis. Elevation in WBC noted to 20 this could be secondary to steroids I will continue to monitor. No fever noted at this time. Patient's respiratory status has stabilized on the high flow with no shallow breathing noted Discussed with the nurse at bedside 08/22; DC Lovenox therapeutic dose, start Eliquis per protocol to treat lower extremity DVT. 08/23; patient remains on high flow oxygen 40 L/100 FiO2/94% O2 sats, intermittent BiPAP 08/24; patient remains on high flow oxygen and BiPAP, consultants recommendations noted and appreciated 08/25; patient continues to be hypoxemic, on high flow oxygen 40L/ 100 FiO2/95 O2 sats and on intermittent BiPAP 08/26; patient continues to be on high flow oxygen, unable to wean follow pulmonary recommendations 08/27; patient remains on high flow oxygen 40 L/100% FiO2/95% O2 sats with intermittent BiPAP treatment 08/28; patient remains on high flow oxygen, strongly advised to prone as tolerated, consults and recommendations noted and appreciated 08/29; closely monitor the patient and adjust management as needed, wean oxygen as tolerated Home oxygen evaluation, DC planning when medically stable 08/30; clinically no change, remains on high flow oxygen, wean as tolerated Consultants recommendations noted . 08/31; patient remains on high flow oxygen 40/100/93 09/01/20;patient remains on high flow oxygen 40/100/93 09/02/20; Same 09/03:Same 09/04:Some omproment, Sitting in Chair On 80 percent FIO2, 40 liters NC O 2 High flow 09/05: Patient feels slightly better Continues to be on high flow oxygen wean as tolerated Continue current management 09/06: Patient continues to require high flow oxygen at the settings of 40 L/85 FiO2/O2 sats 97% 09/07; oxygen requirement slightly improved today on 30 L/70% FiO2/100% O2 sats Encouraging prone position as tolerated History Interval history: I have seen and examined the patient in IMCU this morning Strict isolation precautions and PPE protocols followed per COVID-19 guidelines During the entire time of my evaluation and interaction with the patient Patient remains on high flow oxygen, oxygen requirement slightly improved 30 L/70% FiO2/100% O2 sat with intermittent BiPAP Patient looks tired and exhausted No new complaints Vital signs reviewed Hospitalist Physical - Constitutional Vitals: Temp Pulse Resp BP Pulse Ox 98.4 F 62 10 L 147/84 100 09/07/20 07:47 09/07/20 08:00 09/07/20 08:00 09/07/20 08:00 09/07/20 08:00 General appearance: Present: mild distress, well-nourished, obese, other (1- nasal cannula oxygen) - EENT Eyes: Present: PERRL, EOM intact - Neck Neck: Present: supple, normal ROM - Respiratory Respiratory effort: labored Respiratory: bilateral: diminished, rhonchi, negative: rales, wheezing - Cardiovascular Rhythm: regular Heart Sounds: Present: S1 & S2 - Extremities Extremities: no ischemia, No edema Results - Labs CBC & Chem 7: 09/05/20 07:11 09/05/20 07:11 Labs: Laboratory Last Values WBC 14.0 K/mm3 (4.5-11.0) H 09/05/20 07:11 RBC 4.79 M/mm3 (3.65-5.03) 09/05/20 07:11 Hgb 14.0 gm/dl (11.8-15.2) 09/05/20 07:11 Hct 42.3 % (35.5-45.6) 09/05/20 07:11 MCV 88 fl (84-94) 09/05/20 07:11 MCH 29 pg (28-32) 09/05/20 07:11 MCHC 33 % (32-34) 09/05/20 07:11 RDW 14.8 % (13.2-15.2) 09/05/20 07:11 Plt Count 173 K/mm3 (140-440) 09/05/20 07:11 Lymph % (Auto) 10.8 % (13.4-35.0) L 09/05/20 07:11 [place] % (Auto) 5.8 % (0.0-7.3) 09/05/20 07:11 Eos % (Auto) 0.3 % (0.0-4.3) 09/05/20 07:11 Baso % (Auto) 0.5 % (0.0-1.8) 09/05/20 07:11 Lymph # (Auto) 1.5 K/mm3 (1.2-5.4) 09/05/20 07:11 [place] # (Auto) 0.8 K/mm3 (0.0-0.8) 09/05/20 07:11 Eos # (Auto) 0.0 K/mm3 (0.0-0.4) 09/05/20 07:11 Baso # (Auto) 0.1 K/mm3 (0.0-0.1) 09/05/20 07:11 Add Manual Diff Complete 08/17/20 05:06 Total Counted 100 08/17/20 05:06 Seg Neutrophils % 82.6 % (40.0-70.0) H 09/05/20 07:11 Seg Neuts % (Manual) 86.0 % (40.0-70.0) H 08/17/20 05:06 Lymphocytes % (Manual) 7.0 % (13.4-35.0) L 08/17/20 05:06 Monocytes % (Manual) 6.0 % (0.0-7.3) 08/17/20 05:06 Eosinophils % (Manual) 1.0 % (0.0-4.3) 08/17/20 05:06 Metamyelocytes % 2.0 % 08/15/20 05:16 Nucleated RBC % Not Reportable 08/17/20 05:06 Seg Neutrophils # 11.6 K/mm3 (1.8-7.7) H 09/05/20 07:11 Seg Neutrophils # Man 17.8 K/mm3 (1.8-7.7) H 08/17/20 05:06 Band Neutrophils # 0.0 K/mm3 08/17/20 05:06 Lymphocytes # (Manual) 1.4 K/mm3 (1.2-5.4) 08/17/20 05:06 Abs React Lymphs (Man) 0.0 K/mm3 08/17/20 05:06 Monocytes # (Manual) 1.2 K/mm3 (0.0-0.8) H 08/17/20 05:06 Eosinophils # (Manual) 0.2 K/mm3 (0.0-0.4) 08/17/20 05:06 Basophils # (Manual) 0.0 K/mm3 (0.0-0.1) 08/17/20 05:06 Metamyelocytes # 0.0 K/mm3 08/17/20 05:06 Myelocytes # 0.0 K/mm3 08/17/20 05:06 Promyelocytes # 0.0 K/mm3 08/17/20 05:06 Blast Cells # 0.0 K/mm3 08/17/20 05:06 WBC Morphology Not Reportable 08/17/20 05:06 Hypersegmented Neuts Not Reportable 08/17/20 05:06 Hyposegmented Neuts Not Reportable 08/17/20 05:06 Hypogranular Neuts Not Reportable 08/17/20 05:06 Smudge Cells Not Reportable 08/17/20 05:06 Toxic Granulation Not Reportable 08/17/20 05:06 Toxic Vacuolation Not Reportable 08/17/20 05:06 Dohle Bodies Not Reportable 08/17/20 05:06 Pelger-Huet Anomaly Not Reportable 08/17/20 05:06 Juan Luis Rods Not Reportable 08/17/20 05:06 Platelet Estimate Consistent w auto 08/17/20 05:06 Clumped Platelets Not Reportable 08/17/20 05:06 Plt Clumps, EDTA Not Reportable 08/17/20 05:06 Large Platelets Not Reportable 08/17/20 05:06 Giant Platelets Not Reportable 08/17/20 05:06 Platelet Satelliting Not Reportable 08/17/20 05:06 Plt Morphology Comment Not Reportable 08/17/20 05:06 RBC Morphology Not Reportable 08/17/20 05:06 Dimorphic RBCs Not Reportable 08/17/20 05:06 Polychromasia Not Reportable 08/17/20 05:06 Hypochromasia Not Reportable 08/17/20 05:06 Poikilocytosis Not Reportable 08/17/20 05:06 Anisocytosis Few 08/17/20 05:06 Microcytosis Not Reportable 08/17/20 05:06 Macrocytosis Not Reportable 08/17/20 05:06 Spherocytes Not Reportable 08/17/20 05:06 Pappenheimer Bodies Not Reportable 08/17/20 05:06 Sickle Cells Not Reportable 08/17/20 05:06 Target Cells Not Reportable 08/17/20 05:06 Tear Drop Cells Not Reportable 08/17/20 05:06 Ovalocytes Not Reportable 08/17/20 05:06 Helmet Cells Not Reportable 08/17/20 05:06 [place] Bodies Not Reportable 08/17/20 05:06 [place] Rings Not Reportable 08/17/20 05:06 [place] Cells Not Reportable 08/17/20 05:06 Bite Cells Not Reportable 08/17/20 05:06 Crenated Cell Not Reportable 08/17/20 05:06 Elliptocytes Not Reportable 08/17/20 05:06 Acanthocytes (Spur) Not Reportable 08/17/20 05:06 Rouleaux Not Reportable 08/17/20 05:06 Hemoglobin C Crystals Not Reportable 08/17/20 05:06 Schistocytes Not Reportable 08/17/20 05:06 Malaria parasites Not Reportable 08/17/20 05:06 Asif Bodies Not Reportable 08/17/20 05:06 Hem Pathologist Commnt No 08/17/20 05:06 PT 12.6 Sec. (12.2-14.9) 08/10/20 08:29 INR 0.96 (0.87-1.13) 08/10/20 08:29 D-Dimer 877.51 ng/mlDDU (0-234) H 09/06/20 10:43 ABG pH 7.313 pH Units (7.350-7.450) L 08/25/20 12:30 POC ABG pCO2 46.9 mmHg (32.0-48.0) 08/14/20 08:23 ABG pCO2 67.2 mm Hg 08/25/20 12:30 POC ABG pO2 50.0 mmHg (83-108) L 08/14/20 08:23 ABG pO2 76.2 mm Hg (80.0-90.0) L 08/25/20 12:30 POC ABG HCO3 31.4 08/14/20 08:23 ABG HCO3 33.3 mmol/L (20.0-26.0) H 08/25/20 12:30 ABG O2 Saturation 94.9 % (95.0-99.0) L 08/25/20 12:30 ABG O2 Content 17.5 (0.0-44) 08/25/20 12:30 POC ABG Base Excess 6.3 08/14/20 08:23 ABG Base Excess 5.0 mmol/L (-2.0-3.0) H 08/25/20 12:30 ABG Hemoglobin 13.4 gm/dl (14.0-18.0) L 08/25/20 12:30 ABG Oxyhemoglobin 84.0 (94-98) L 08/14/20 08:23 ABG Carboxyhemoglobin 1.5 % (0.0-5.0) 08/25/20 12:30 ABG Methemoglobin 0.5 % (0.0-1.5) 08/25/20 12:30 ABG Sodium 139.2 mmol/L (136.0-145.0) 08/14/20 08:23 ABG Potassium 4.5 mmol/L (3.40-4.50) 08/14/20 08:23 ABG Chloride 99.0 mmol/L (98-107) 08/14/20 08:23 ABG Glucose 141 mg/dL (65-95) H 08/14/20 08:23 VBG pH 7.303 (7.320-7.420) L 08/10/20 08:29 Oxyhemoglobin 93.0 % (95.0-99.0) L 08/25/20 12:30 Carboxyhemoglobin 0.9 (0.5-1.5) 08/14/20 08:23 FiO2 80 % 08/25/20 12:30 FiO2 % 100 08/14/20 08:23 Sodium 140 mmol/L (137-145) 09/05/20 07:11 Potassium 4.8 mmol/L (3.6-5.0) 09/05/20 07:11 Chloride 98.5 mmol/L (98-107) 09/05/20 07:11 Carbon Dioxide 36 mmol/L (22-30) H 09/05/20 07:11 Anion Gap 10 mmol/L 09/05/20 07:11 BUN 21 mg/dL (9-20) H 09/05/20 07:11 Creatinine 0.6 mg/dL (0.8-1.3) L 09/05/20 07:11 Estimated GFR > 60 ml/min 09/05/20 07:11 BUN/Creatinine Ratio 35 % 09/05/20 07:11 Glucose 123 mg/dL (75-100) H 09/05/20 07:11 POC Glucose 151 mg/dL (70-105) H 08/21/20 11:17 Hemoglobin A1c 6.1 % (4-6) H 08/11/20 05:39 Lactic Acid 0.80 mmol/L (0.7-2.0) 08/10/20 11:18 Calcium 9.3 mg/dL (8.4-10.2) 09/05/20 07:11 Magnesium 2.40 mg/dL (1.7-2.3) H 08/31/20 10:56 Ferritin 666.4 ng/mL (30.0-300.0) H 09/06/20 10:43 Total Bilirubin 0.50 mg/dL (0.1-1.2) 08/18/20 05:13 AST 50 units/L (5-40) H 08/18/20 05:13 ALT 50 units/L (7-56) 08/18/20 05:13 Alkaline Phosphatase 103 units/L (35-129) 08/18/20 05:13 Lactate Dehydrogenase 607 units/L (91-180) H 09/06/20 10:43 C-Reactive Protein 0.10 mg/dL (0.00-1.30) 09/06/20 10:43 NT-Pro-B Natriuret Pep 36.40 pg/mL (0-450) 08/12/20 06:29 Total Protein 6.9 g/dL (6.3-8.2) 08/18/20 05:13 Albumin 3.7 g/dL (3.9-5) L 08/18/20 05:13 Albumin/Globulin Ratio 1.1 % 08/18/20 05:13 Procalcitonin 0.08 ng/mL (<0.15) 08/21/20 13:39 TSH 1.830 mlU/mL (0.270-4.200) 08/17/20 05:06 Free T4 1.01 ng/dL (0.76-1.46) 08/17/20 05:06 Arterial Blood Glucose 141 mg/dL (65-95) H 08/14/20 08:23 Arterial Blood Ionized Calcium 4.8 mg/dL (4.6-5.3) 08/14/20 08:23 Urine Color Yellow (Yellow) 08/10/20 Unknown Urine Turbidity Cloudy (Clear) 08/10/20 Unknown Urine pH 5.0 (5.0-7.0) 08/10/20 Unknown Ur Specific [place] 1.025 (1.003-1.030) 08/10/20 Unknown Urine Protein 30 mg/dl mg/dL (Negative) 08/10/20 Unknown Urine Glucose (UA) 150 mg/dL (Negative) 08/10/20 Unknown Urine Ketones Negative mg/dL (Negative) 08/10/20 Unknown Urine Blood Negative (Negative) 08/10/20 Unknown Urine Nitrite Negative (Negative) 08/10/20 Unknown Urine Bilirubin Negative (Negative) 08/10/20 Unknown Urine Urobilinogen < 2.0 mg/dL (<2.0) 08/10/20 Unknown Ur Leukocyte Esterase Negative (Negative) 08/10/20 Unknown Urine WBC (Auto) 5.0 /HPF (0.0-6.0) 08/10/20 Unknown Urine RBC (Auto) 2.0 /HPF (0.0-6.0) 08/10/20 Unknown U Epithel Cells (Auto) 1.0 /HPF (0-13.0) 08/10/20 Unknown Urine Bacteria (Auto) 1+ /HPF (Negative) 08/10/20 Unknown Urine Mucus 3+ /HPF 08/10/20 Unknown Coronavirus (PCR) Positive (Negative) A 08/11/20 Unknown Gaytan/IV: Voiding Method Urinal Active Medications - Current Medications Current Medications: Generic Name Dose Route Start Last Admin Trade Name Freq PRN Reason Stop Dose Admin Acetaminophen 650 mg 08/10/20 23:48 08/31/20 00:34 Acetaminophen 325 Mg Tab PO 650 mg Q4H PRN Administration Pain MILD(1-3)/Fever >100.5/MARTINEZ Apixaban 5 mg 08/29/20 22:00 09/06/20 22:27 Apixaban 5 Mg Tab PO 5 mg Q12HR MELANIE Administration Protocol Artificial Tears 2 drops 08/16/20 13:44 Hypromellose 0.5% Ophth Soln 15 Ml OU Q4H PRN Dry Eye(s) Ascorbic Acid 500 mg 08/12/20 10:00 09/06/20 22:27 Ascorbic Acid 500 Mg Tab PO 500 mg BID MELANIE Administration Famotidine 20 mg 08/27/20 12:00 09/06/20 22:27 Famotidine 20 Mg Tab PO 20 mg BID MELANIE Administration Methylprednisolone Sodium Succinate 40 mg 08/31/20 10:00 09/07/20 06:45 Methylprednisolone Sod Succinate 40 Mg/1 Ml Inj IV 40 mg Q8HR MELANIE Administration Metoclopramide HCl 10 mg 08/10/20 23:48 Metoclopramide 10 Mg/2 Ml Inj IV Q6H PRN Nausea And Vomiting Morphine Sulfate 2 mg 08/10/20 23:48 08/25/20 10:20 Morphine 2 Mg/1 Ml Inj IV 2 mg Q4H PRN Administration Pain, Moderate (4-6) Ondansetron HCl 4 mg 08/10/20 23:48 Ondansetron 4 Mg/2 Ml Inj IV Q8H PRN Nausea And Vomiting Oxycodone/Acetaminophen 1 tab 08/10/20 23:48 08/25/20 21:08 Oxycodone /Acetaminophen 5-325mg Tab PO 1 tab Q6H PRN Administration Pain, Moderate (4-6) Sodium Chloride 10 ml 08/11/20 10:00 09/06/20 22:27 Sodium Chloride 0.9% 10 Ml Flush Syringe IV 10 ml BID MELANIE Administration Sodium Chloride 10 ml 08/10/20 23:48 08/12/20 21:04 Sodium Chloride 0.9% 10 Ml Flush Syringe IV 10 ml PRN PRN Administration LINE FLUSH Zinc Sulfate 220 mg 08/12/20 12:00 09/06/20 09:33 Zinc Sulfate 220 Mg Cap PO 220 mg QDAY MELANIE Administration Nutrition/Malnutrition Assess - Dietary Evaluation Nutrition/Malnutrition Findings: Nutrition Notes Start: 08/17/20 10:49 Freq: Status: Active Protocol: Document 09/05/20 15:18 CW (Rec: 09/05/20 15:24 CW [id number]) Nutrition Notes Initial or Follow up Reassessment Other Pertinent Diagnosis COVID-19 (+), pneu, RLE DVT, sinus bradycardia Current Diet Regular Labs/Tests BUN 21 Pertinent Medications LASIX Solumderol Height 5 ft 11 in Weight 132.1 kg [place] Body Weight (kg) 78.18 BMI 40.6 Weight change and time frame weight fluctuation likely r/t to fluid overload Weight Status Morbidly Obese Subjective/Other Information F/U for intakes and ONS tolerance. PER RN pt eating well. PO itnake is 100% of meals and ONS. Percent of energy/protein needs met: 100%/100% Burn Absent Trauma Absent Cultural/Ethnic/Orthodoxy Belief Requests salads with chicken Current % PO Good (75-100%) Minimum of two criteria No #1 Nutrition Diagnosis Inadequate oral intake As Evidenced by Signs and Symptoms Pt eating 100% of meals and ONS Diagnosis Progress(for reassessment Improved documentation) Is patient on ventilator? No Is Patient Ambulatory and/or Out of Bed No REE-([facility]-confined to bed) 2770.944 Kcal/Kg value to use for calculation 16 Approximate Energy Requirements Using 2114 kcal/Kg Calculation Used for Recommendations Kcal/kg Additional Notes Pro needs 0.8-1g/kg adjBW: 90- 113g/day Fluid needs 1ml/kcal Nutrition Intervention Change Diet Order: Continue current diet as tolerated Add Supplement/Snack (indicate name/kcal Ensure High Protein Q6 /protein ) Provides kCal: 160 Provides Protein (gm) 16 Goal #1 Stable PO intakes Goal #2 PO intake of meals plus ONS to meet at least 75% energy and pro needs Anticipated Discharge Needs: Regular Diet Follow-Up By: 09/08/20 Additional Comments F/U for stable intakes and ONS tolerance
[2020-09-07] MEDS: APIXABAN 5 MG TAB PO SCH ×2 (09:52→22:54)
[2020-09-07] MEDS: FAMOTIDINE 20 MG TAB PO SCH ×2 (09:53→22:54)
[2020-09-07] MEDS: ASCORBIC ACID 500 MG TAB PO SCH ×2 (09:53→22:54)
[2020-09-07] MEDS: ZINC SULFATE 220 MG CAP PO SCH (09:54)
--- NOTE | 2020-09-07 14:38 | Progress Note ---
Assessment and Plan 30 y/o morbidly obese male with acute respiratory failure secondary to COVID 19 pneumonia. now found to have DVT in lower ext. 09/07/20: Continue steroids now especially with improvement in the last 24 hours. Hold on lasix again today. May be labs on 09/08/20 09/06/20: Will continue steroids. Likely will stop in next 48 hours as patient not having improvement. Inflammatory markers are better. Would be a good candidate for LTACH but no funding. Prone as much as tolerated. Guarded prognosis. hold on lasix today, suggest checking labs tomorrow. 09/05/20: Lasix again today. Will continue steroids. Prne as much as tolerated. Guarded prognosis. 09/04/20: Will continue steroids given mild improvement. Prone as much as vu erated. Lasix again today. Bipap at night. 09/01/20: Continue steroids at least through the weekend. Continue to prone as much as tolerated. Lasix 40mg IV again today. BIpap QHS. Very very guarded prognosis. He has been hanging out in the high 80's low 90's for weeks now. 08/31/20: Going to place patient back on steroids. Will do solumedrol 40q8 at least for the next 48-72 hours to see if this helps. Checked stat labs this morning to evaluate renal function and potassium levels before anymore lasix is given. Continue to prone as tolerated and bipap QHS. Prognosis remains guarded. 08/30/20: Proning is a must. Will give lasix 40 today. Continue anticoagulation. Prognosis remians very very guarded. Avoid intubation at all costs. 08/29/20: Continue to prone as tolerated during the day and sleep prone at night. HOld on lasix today. Continue anticoagulation. Guarded prognosis. 08/28/20: Continue to prone as tolerated. Today will give lasix 40 to see if this helps. Will discuss with cardiology about echo. Clinically patient looks the same and not in distress. If PE is present, likely not large enough for EKOS. Given his high O2 requirement, prefer not to try CTA at this time as I feel the risks outweigh the benefits. 08/27/20: Long discussion with patient again at bedside today. May need to consider repeat ECHO to look for right heart strain. We know he had VTE in the lower ext but never had to oppurtunity to truly rule him out for PE. Cousin who is an [employer] in outpatient setting at [place] asked some questions so I spoke with her via the phone. She is going to help encourage proning. Will give more lasix today. Very very guarded prognosis. 08/26/20: Pulm status is more stable today compared to yesterday. Continue bipap PRN and QHS. Will give IV lasix again today. Prognosis still remains very guarded. 08/25/20: Placed back on bipap this am secondary to desaturations and lower mental state than before. Patient has been stable and making improvements but now seems to be headed in the wrong direction. Will monitor very closely as he is a high risk for intubation and bad outcomes. Very very guarded prognosis. Will give lasix today. 08/24/20: Encouraged more proning. Continue BIpap QHS and PRN. unfortunately, no funding, patient would be a good LTACH candidate as he will likely take a long time to wean from HFNC. 08/23/20: No new recs. Proning is metcalf. Will continue to follow. Appreciate ID recs and help. 08/22/20: Bipap PRN and QHS. Will given lasix today. Prone as tolerated. PT continues. Slight improvement. Will continue to follow. 08/21/20: Bipap PRN and QHS. Hold on lasix today. Continue to prone as much as tolerated. Will order PT consult. 08/18/20: Bipap pRN and QHS. More lasix today. Prone as tolerated during the day and sleep prone at night. Continue to try to hold off on intubation. Guarded prognosis. 08/17/20: Continue anticoagulation. Still trying to prevent intubation however will do electively if and when needed to prevent and emergent situation as patient will likely be difficult given neck and body habitus. Continue prone as tolerated. Steroids and remdesivir. 08/16/20: Anticoagulation. Prone as tolerated. Wean bipap as tolerated. Prognosis remains guarded. Trying to prevent intubation given poor outcomes associated with mechanically ventilated obese COVID patients. 08/15/20: Continue therapeutic anticoagulation. No current indication for vascular consult given no evidence of right heart strain on echo. CT would only be beneficial if we thought it would show large enough clot to warrant EKOS and with no evidence of strain, I doubt that will be the case. Continue proning as much as tolerated. Spoke with mother over the phone to update her. Patient also got actemra on yesterday as well. Prognosis remains guarded 08/14/20: Will accept sats in the mid 80's as long as mental state and work of breathing do not change. AGree with lasix therapy. Found to have large DVT on right. Spoke with [facility] and asked them to order stat echo to look for right heart strain, and if present may need to consider echos. Await echo before vascular consult. Prone if possible. Long discussion with mother on phone. Gave her a list of the meds he is on and what our current plan is. Also very candid with her and son at bedside that the mortality rate with COVID is very very high. 08/13/20: Lasix again today. Continue to alternate between HFNC with NRB and bipap. Prognosis is very very guarded. Very very guarded to poor prognosis given CXR appearance, and body habitus, along with rapid decline in self sustaning oxygen levels. Agree with lasix and increase in steroids. Must prone. Very high likelihood for mechanical ventilation which would carry a high mortality for patient. Will continue to follow. No additional IVF's unless indicated. Subjective Date of service: 09/07/20 Principal diagnosis: COVID Interval history: Down to 30 liters and 70% today. Good sats. Objective Vital Signs - 12hr 09/07/20 09/07/20 09/07/20 03:00 03:23 04:00 Temperature 97.8 F Pulse Rate 68 69 Pulse Rate [ 62 From Monitor] Respiratory 11 L 13 Rate Blood Pressure 126/75 124/81 O2 Sat by Pulse 99 99 Oximetry 09/07/20 09/07/20 09/07/20 04:46 05:00 06:00 Temperature Pulse Rate 65 66 63 Pulse Rate [ From Monitor] Respiratory 10 L 10 L Rate Blood Pressure 130/77 126/78 O2 Sat by Pulse 98 100 Oximetry 09/07/20 09/07/20 09/07/20 06:08 07:00 07:47 Temperature 98.4 F Pulse Rate 62 65 Pulse Rate [ From Monitor] Respiratory 20 9 L Rate Blood Pressure 128/73 O2 Sat by Pulse 100 100 Oximetry 09/07/20 09/07/20 09/07/20 07:52 08:00 09:00 Temperature Pulse Rate 64 79 Pulse Rate [ From Monitor] Respiratory 13 12 Rate Blood Pressure 147/84 131/66 O2 Sat by Pulse 100 99 94 Oximetry 09/07/20 09/07/20 09/07/20 10:00 11:01 12:00 Temperature Pulse Rate 69 72 Pulse Rate [ 76 From Monitor] Respiratory 8 L 10 L 12 Rate Blood Pressure 119/61 107/65 O2 Sat by Pulse 99 96 Oximetry 09/07/20 09/07/20 12:01 12:23 Temperature 98.1 F Pulse Rate 76 Pulse Rate [ From Monitor] Respiratory 11 L Rate Blood Pressure 133/67 O2 Sat by Pulse 94 Oximetry Constitutional: no acute distress, alert Eyes: non-icteric ENT: oropharynx moist Neck: supple Effort: normal Ascultation: Bilateral: clear Cardiovascular: regular rate and rhythm (no mrg) Gastrointestinal: normoactive bowel sounds, soft, non-distended Integumentary: normal Extremities: no cyanosis, no edema, pink and warm Neurologic: normal mental status, non-focal exam Psychiatric: mood appropriate, affect normal CBC and BMP: 09/05/20 07:11 09/05/20 07:11 ABG, PT/INR, D-dimer: ABG ABG pH 7.313 pH Units (7.350-7.450) L 08/25/20 12:30 POC ABG pCO2 46.9 mmHg (32.0-48.0) 08/14/20 08:23 ABG pCO2 67.2 mm Hg 08/25/20 12:30 POC ABG pO2 50.0 mmHg (83-108) L 08/14/20 08:23 ABG pO2 76.2 mm Hg (80.0-90.0) L 08/25/20 12:30 POC ABG HCO3 31.4 08/14/20 08:23 ABG O2 Saturation 94.9 % (95.0-99.0) L 08/25/20 12:30 PT/INR, D-dimer PT 12.6 Sec. (12.2-14.9) 08/10/20 08:29 INR 0.96 (0.87-1.13) 08/10/20 08:29 D-Dimer 877.51 ng/mlDDU (0-234) H 09/06/20 10:43 Abnormal lab findings: Abnormal Labs 08/10/20 08/10/20 08/10/20 08:29 08:29 08:29 WBC Lymph % (Auto) [place] % (Auto) 8.4 H Lymph # (Auto) [place] # (Auto) Seg Neutrophils % Seg Neuts % (Manual) Lymphocytes % (Manual) Seg Neutrophils # Seg Neutrophils # Man Lymphocytes # (Manual) Monocytes # (Manual) D-Dimer ABG pH POC ABG pCO2 POC ABG pO2 ABG pO2 ABG HCO3 ABG O2 Saturation ABG Base Excess ABG Hemoglobin ABG Oxyhemoglobin ABG Potassium ABG Glucose VBG pH 7.303 L Oxyhemoglobin Sodium Potassium Chloride Carbon Dioxide BUN Creatinine Glucose 132 H POC Glucose Hemoglobin A1c Magnesium Ferritin AST Lactate Dehydrogenase C-Reactive Protein Albumin Arterial Blood Glucose Coronavirus (PCR) 08/11/20 08/11/20 08/11/20 05:39 05:39 05:39 WBC Lymph % (Auto) 12.5 L [place] % (Auto) Lymph # (Auto) [place] # (Auto) Seg Neutrophils % 84.2 H Seg Neuts % (Manual) Lymphocytes % (Manual) Seg Neutrophils # 9.1 H Seg Neutrophils # Man Lymphocytes # (Manual) Monocytes # (Manual) D-Dimer ABG pH POC ABG pCO2 POC ABG pO2 ABG pO2 ABG HCO3 ABG O2 Saturation ABG Base Excess ABG Hemoglobin ABG Oxyhemoglobin ABG Potassium ABG Glucose VBG pH Oxyhemoglobin Sodium Potassium Chloride Carbon Dioxide BUN Creatinine Glucose 125 H POC Glucose Hemoglobin A1c 6.1 H Magnesium Ferritin AST Lactate Dehydrogenase C-Reactive Protein Albumin Arterial Blood Glucose Coronavirus (PCR) 08/11/20 08/11/20 08/11/20 18:58 18:58 18:58 WBC Lymph % (Auto) [place] % (Auto) Lymph # (Auto) [place] # (Auto) Seg Neutrophils % Seg Neuts % (Manual) Lymphocytes % (Manual) Seg Neutrophils # Seg Neutrophils # Man Lymphocytes # (Manual) Monocytes # (Manual) D-Dimer 464.84 H ABG pH POC ABG pCO2 POC ABG pO2 ABG pO2 ABG HCO3 ABG O2 Saturation ABG Base Excess ABG Hemoglobin ABG Oxyhemoglobin ABG Potassium ABG Glucose VBG pH Oxyhemoglobin Sodium Potassium Chloride Carbon Dioxide BUN Creatinine Glucose POC Glucose Hemoglobin A1c Magnesium Ferritin 528.7 H AST Lactate Dehydrogenase 637 H C-Reactive Protein 11.30 H Albumin Arterial Blood Glucose Coronavirus (PCR) 08/11/20 08/11/20 08/12/20 19:08 Unknown 06:29 WBC 11.2 H Lymph % (Auto) 8.6 L [place] % (Auto) Lymph # (Auto) 1.0 L [place] # (Auto) Seg Neutrophils % 88.3 H Seg Neuts % (Manual) Lymphocytes % (Manual) Seg Neutrophils # 9.8 H Seg Neutrophils # Man Lymphocytes # (Manual) Monocytes # (Manual) D-Dimer ABG pH POC ABG pCO2 POC ABG pO2 ABG pO2 ABG HCO3 ABG O2 Saturation ABG Base Excess ABG Hemoglobin ABG Oxyhemoglobin ABG Potassium ABG Glucose VBG pH Oxyhemoglobin Sodium Potassium Chloride Carbon Dioxide BUN Creatinine Glucose 161 H POC Glucose Hemoglobin A1c Magnesium Ferritin AST Lactate Dehydrogenase C-Reactive Protein Albumin Arterial Blood Glucose Coronavirus (PCR) Positive A 08/12/20 08/12/20 08/12/20 06:29 06:29 06:29 WBC Lymph % (Auto) [place] % (Auto) Lymph # (Auto) [place] # (Auto) Seg Neutrophils % Seg Neuts % (Manual) Lymphocytes % (Manual) Seg Neutrophils # Seg Neutrophils # Man Lymphocytes # (Manual) Monocytes # (Manual) D-Dimer 830.34 H ABG pH POC ABG pCO2 POC ABG pO2 ABG pO2 ABG HCO3 ABG O2 Saturation ABG Base Excess ABG Hemoglobin ABG Oxyhemoglobin ABG Potassium ABG Glucose VBG pH Oxyhemoglobin Sodium Potassium Chloride Carbon Dioxide 31 H BUN Creatinine Glucose 138 H POC Glucose Hemoglobin A1c Magnesium Ferritin 572.6 H AST 42 H Lactate Dehydrogenase 706 H C-Reactive Protein 17.30 H Albumin 3.7 L Arterial Blood Glucose Coronavirus (PCR) 08/12/20 08/12/20 08/12/20 13:21 14:55 21:59 WBC Lymph % (Auto) [place] % (Auto) Lymph # (Auto) [place] # (Auto) Seg Neutrophils % Seg Neuts % (Manual) Lymphocytes % (Manual) Seg Neutrophils # Seg Neutrophils # Man Lymphocytes # (Manual) Monocytes # (Manual) D-Dimer ABG pH 7.315 L POC ABG pCO2 57.1 H POC ABG pO2 47.8 L ABG pO2 65.8 L ABG HCO3 31.4 H ABG O2 Saturation 91.7 L ABG Base Excess ABG Hemoglobin 19.3 H ABG Oxyhemoglobin ABG Potassium 4.9 H ABG Glucose 182 H VBG pH Oxyhemoglobin 89.7 L Sodium Potassium Chloride Carbon Dioxide BUN Creatinine Glucose POC Glucose 142 H Hemoglobin A1c Magnesium Ferritin AST Lactate Dehydrogenase C-Reactive Protein Albumin Arterial Blood Glucose 182 H Coronavirus (PCR) 08/13/20 08/13/20 08/13/20 05:35 05:35 12:11 WBC 12.0 H Lymph % (Auto) 8.1 L [place] % (Auto) Lymph # (Auto) 1.0 L [place] # (Auto) Seg Neutrophils % 88.0 H Seg Neuts % (Manual) Lymphocytes % (Manual) Seg Neutrophils # 10.5 H Seg Neutrophils # Man Lymphocytes # (Manual) Monocytes # (Manual) D-Dimer ABG pH POC ABG pCO2 POC ABG pO2 ABG pO2 ABG HCO3 ABG O2 Saturation ABG Base Excess ABG Hemoglobin ABG Oxyhemoglobin ABG Potassium ABG Glucose VBG pH Oxyhemoglobin Sodium Potassium 5.1 H Chloride Carbon Dioxide 31 H BUN 25 H Creatinine Glucose 174 H POC Glucose 154 H Hemoglobin A1c Magnesium Ferritin AST 41 H Lactate Dehydrogenase 996 H C-Reactive Protein Albumin 3.8 L Arterial Blood Glucose Coronavirus (PCR) 08/13/20 08/13/20 08/14/20 16:18 23:24 05:21 WBC 14.2 H Lymph % (Auto) 8.2 L [place] % (Auto) Lymph # (Auto) [place] # (Auto) 0.9 H Seg Neutrophils % 85.4 H Seg Neuts % (Manual) Lymphocytes % (Manual) Seg Neutrophils # 12.2 H Seg Neutrophils # Man Lymphocytes # (Manual) Monocytes # (Manual) D-Dimer ABG pH POC ABG pCO2 POC ABG pO2 ABG pO2 ABG HCO3 ABG O2 Saturation ABG Base Excess ABG Hemoglobin ABG Oxyhemoglobin ABG Potassium ABG Glucose VBG pH Oxyhemoglobin Sodium Potassium Chloride Carbon Dioxide BUN Creatinine Glucose POC Glucose 188 H 127 H Hemoglobin A1c Magnesium Ferritin AST Lactate Dehydrogenase C-Reactive Protein Albumin Arterial Blood Glucose Coronavirus (PCR) 08/14/20 08/14/20 08/14/20 05:21 05:21 05:21 WBC Lymph % (Auto) [place] % (Auto) Lymph # (Auto) [place] # (Auto) Seg Neutrophils % Seg Neuts % (Manual) Lymphocytes % (Manual) Seg Neutrophils # Seg Neutrophils # Man Lymphocytes # (Manual) Monocytes # (Manual) D-Dimer > 57915 H ABG pH POC ABG pCO2 POC ABG pO2 ABG pO2 ABG HCO3 ABG O2 Saturation ABG Base Excess ABG Hemoglobin ABG Oxyhemoglobin ABG Potassium ABG Glucose VBG pH Oxyhemoglobin Sodium Potassium Chloride Carbon Dioxide 32 H 33 H BUN 26 H 26 H Creatinine Glucose 152 H 156 H POC Glucose Hemoglobin A1c Magnesium Ferritin AST 53 H 54 H Lactate Dehydrogenase 1249 H C-Reactive Protein 9.90 H Albumin 3.7 L 3.7 L Arterial Blood Glucose Coronavirus (PCR) 08/14/20 08/14/20 08/14/20 05:21 05:58 08:23 WBC Lymph % (Auto) [place] % (Auto) Lymph # (Auto) [place] # (Auto) Seg Neutrophils % Seg Neuts % (Manual) Lymphocytes % (Manual) Seg Neutrophils # Seg Neutrophils # Man Lymphocytes # (Manual) Monocytes # (Manual) D-Dimer ABG pH POC ABG pCO2 POC ABG pO2 50.0 L ABG pO2 ABG HCO3 ABG O2 Saturation ABG Base Excess ABG Hemoglobin ABG Oxyhemoglobin 84.0 L ABG Potassium ABG Glucose 141 H VBG pH Oxyhemoglobin Sodium Potassium Chloride Carbon Dioxide BUN Creatinine Glucose POC Glucose 139 H Hemoglobin A1c Magnesium Ferritin 1198.0 H AST Lactate Dehydrogenase C-Reactive Protein Albumin Arterial Blood Glucose 141 H Coronavirus (PCR) 08/15/20 08/15/20 08/16/20 05:16 05:16 05:26 WBC 13.7 H 17.7 H Lymph % (Auto) 8.2 L [place] % (Auto) Lymph # (Auto) [place] # (Auto) Seg Neutrophils % 86.2 H Seg Neuts % (Manual) 91.0 H 88.0 H Lymphocytes % (Manual) 7.0 L 9.0 L Seg Neutrophils # 15.3 H Seg Neutrophils # Man 12.5 H 15.6 H Lymphocytes # (Manual) 1.0 L Monocytes # (Manual) D-Dimer ABG pH POC ABG pCO2 POC ABG pO2 ABG pO2 ABG HCO3 ABG O2 Saturation ABG Base Excess ABG Hemoglobin ABG Oxyhemoglobin ABG Potassium ABG Glucose VBG pH Oxyhemoglobin Sodium Potassium Chloride Carbon Dioxide 32 H BUN 29 H Creatinine Glucose 150 H POC Glucose Hemoglobin A1c Magnesium Ferritin AST Lactate Dehydrogenase 1150 H C-Reactive Protein Albumin 3.5 L Arterial Blood Glucose Coronavirus (PCR) 08/16/20 08/16/20 08/16/20 05:26 05:26 05:26 WBC Lymph % (Auto) [place] % (Auto) Lymph # (Auto) [place] # (Auto) Seg Neutrophils % Seg Neuts % (Manual) Lymphocytes % (Manual) Seg Neutrophils # Seg Neutrophils # Man Lymphocytes # (Manual) Monocytes # (Manual) D-Dimer > 97043 H ABG pH POC ABG pCO2 POC ABG pO2 ABG pO2 ABG HCO3 ABG O2 Saturation ABG Base Excess ABG Hemoglobin ABG Oxyhemoglobin ABG Potassium ABG Glucose VBG pH Oxyhemoglobin Sodium Potassium 5.2 H Chloride Carbon Dioxide BUN 25 H Creatinine Glucose 163 H POC Glucose Hemoglobin A1c Magnesium Ferritin 1013.0 H AST Lactate Dehydrogenase C-Reactive Protein 4.00 H Albumin 3.6 L Arterial Blood Glucose Coronavirus (PCR) 08/17/20 08/17/20 08/17/20 05:06 05:06 07:51 WBC 20.7 H Lymph % (Auto) [place] % (Auto) Lymph # (Auto) [place] # (Auto) Seg Neutrophils % Seg Neuts % (Manual) 86.0 H Lymphocytes % (Manual) 7.0 L Seg Neutrophils # Seg Neutrophils # Man 17.8 H Lymphocytes # (Manual) Monocytes # (Manual) 1.2 H D-Dimer ABG pH POC ABG pCO2 POC ABG pO2 ABG pO2 ABG HCO3 ABG O2 Saturation ABG Base Excess ABG Hemoglobin ABG Oxyhemoglobin ABG Potassium ABG Glucose VBG pH Oxyhemoglobin Sodium Potassium Chloride 96.5 L Carbon Dioxide 31 H BUN 29 H Creatinine Glucose 121 H POC Glucose 110 H Hemoglobin A1c Magnesium Ferritin AST 46 H Lactate Dehydrogenase C-Reactive Protein Albumin 3.7 L Arterial Blood Glucose Coronavirus (PCR) 08/17/20 08/17/20 08/18/20 11:42 21:45 05:13 WBC Lymph % (Auto) [place] % (Auto) Lymph # (Auto) [place] # (Auto) Seg Neutrophils % Seg Neuts % (Manual) Lymphocytes % (Manual) Seg Neutrophils # Seg Neutrophils # Man Lymphocytes # (Manual) Monocytes # (Manual) D-Dimer > 1000 H ABG pH POC ABG pCO2 POC ABG pO2 ABG pO2 ABG HCO3 ABG O2 Saturation ABG Base Excess ABG Hemoglobin ABG Oxyhemoglobin ABG Potassium ABG Glucose VBG pH Oxyhemoglobin Sodium Potassium Chloride Carbon Dioxide BUN Creatinine Glucose POC Glucose 122 H 143 H Hemoglobin A1c Magnesium Ferritin AST Lactate Dehydrogenase C-Reactive Protein Albumin Arterial Blood Glucose Coronavirus (PCR) 08/18/20 08/18/20 08/21/20 05:13 05:13 11:17 WBC Lymph % (Auto) [place] % (Auto) Lymph # (Auto) [place] # (Auto) Seg Neutrophils % Seg Neuts % (Manual) Lymphocytes % (Manual) Seg Neutrophils # Seg Neutrophils # Man Lymphocytes # (Manual) Monocytes # (Manual) D-Dimer ABG pH POC ABG pCO2 POC ABG pO2 ABG pO2 ABG HCO3 ABG O2 Saturation ABG Base Excess ABG Hemoglobin ABG Oxyhemoglobin ABG Potassium ABG Glucose VBG pH Oxyhemoglobin Sodium 133 L Potassium Chloride 94.7 L Carbon Dioxide BUN 33 H Creatinine Glucose 110 H POC Glucose 151 H Hemoglobin A1c Magnesium Ferritin 979.8 H AST 50 H Lactate Dehydrogenase C-Reactive Protein Albumin 3.7 L Arterial Blood Glucose Coronavirus (PCR) 08/21/20 08/21/20 08/21/20 13:39 13:39 15:55 WBC Lymph % (Auto) [place] % (Auto) Lymph # (Auto) [place] # (Auto) Seg Neutrophils % Seg Neuts % (Manual) Lymphocytes % (Manual) Seg Neutrophils # Seg Neutrophils # Man Lymphocytes # (Manual) Monocytes # (Manual) D-Dimer 6731.66 H ABG pH POC ABG pCO2 POC ABG pO2 ABG pO2 ABG HCO3 ABG O2 Saturation ABG Base Excess ABG Hemoglobin ABG Oxyhemoglobin ABG Potassium ABG Glucose VBG pH Oxyhemoglobin Sodium Potassium Chloride Carbon Dioxide BUN Creatinine Glucose POC Glucose Hemoglobin A1c Magnesium Ferritin 1019.0 H AST Lactate Dehydrogenase 1251 H C-Reactive Protein Albumin Arterial Blood Glucose Coronavirus (PCR) 08/22/20 08/22/20 08/25/20 05:23 05:23 12:30 WBC 24.7 H Lymph % (Auto) [place] % (Auto) Lymph # (Auto) [place] # (Auto) Seg Neutrophils % Seg Neuts % (Manual) Lymphocytes % (Manual) Seg Neutrophils # Seg Neutrophils # Man Lymphocytes # (Manual) Monocytes # (Manual) D-Dimer ABG pH 7.313 L POC ABG pCO2 POC ABG pO2 ABG pO2 76.2 L ABG HCO3 33.3 H ABG O2 Saturation 94.9 L ABG Base Excess 5.0 H ABG Hemoglobin 13.4 L ABG Oxyhemoglobin ABG Potassium ABG Glucose VBG pH Oxyhemoglobin 93.0 L Sodium 136 L Potassium Chloride 96.3 L Carbon Dioxide BUN 24 H Creatinine 0.7 L Glucose 115 H POC Glucose Hemoglobin A1c Magnesium Ferritin AST Lactate Dehydrogenase C-Reactive Protein Albumin Arterial Blood Glucose Coronavirus (PCR) 08/25/20 08/25/20 08/25/20 16:08 16:08 16:08 WBC Lymph % (Auto) [place] % (Auto) Lymph # (Auto) [place] # (Auto) Seg Neutrophils % Seg Neuts % (Manual) Lymphocytes % (Manual) Seg Neutrophils # Seg Neutrophils # Man Lymphocytes # (Manual) Monocytes # (Manual) D-Dimer 4487.76 H ABG pH POC ABG pCO2 POC ABG pO2 ABG pO2 ABG HCO3 ABG O2 Saturation ABG Base Excess ABG Hemoglobin ABG Oxyhemoglobin ABG Potassium ABG Glucose VBG pH Oxyhemoglobin Sodium Potassium Chloride Carbon Dioxide BUN Creatinine Glucose POC Glucose Hemoglobin A1c Magnesium Ferritin 961.4 H AST Lactate Dehydrogenase 959 H C-Reactive Protein Albumin Arterial Blood Glucose Coronavirus (PCR) 08/26/20 08/26/20 08/31/20 07:11 07:11 10:56 WBC Lymph % (Auto) [place] % (Auto) 9.8 H Lymph # (Auto) [place] # (Auto) 1.0 H Seg Neutrophils % Seg Neuts % (Manual) Lymphocytes % (Manual) Seg Neutrophils # Seg Neutrophils # Man Lymphocytes # (Manual) Monocytes # (Manual) D-Dimer ABG pH POC ABG pCO2 POC ABG pO2 ABG pO2 ABG HCO3 ABG O2 Saturation ABG Base Excess ABG Hemoglobin ABG Oxyhemoglobin ABG Potassium ABG Glucose VBG pH Oxyhemoglobin Sodium 135 L Potassium Chloride 95.7 L 97.4 L Carbon Dioxide 33 H 34 H BUN Creatinine 0.6 L Glucose 109 H POC Glucose Hemoglobin A1c Magnesium 2.40 H Ferritin AST Lactate Dehydrogenase C-Reactive Protein Albumin Arterial Blood Glucose Coronavirus (PCR) 09/05/20 09/05/20 09/06/20 07:11 07:11 10:43 WBC 14.0 H Lymph % (Auto) 10.8 L [place] % (Auto) Lymph # (Auto) [place] # (Auto) Seg Neutrophils % 82.6 H Seg Neuts % (Manual) Lymphocytes % (Manual) Seg Neutrophils # 11.6 H Seg Neutrophils # Man Lymphocytes # (Manual) Monocytes # (Manual) D-Dimer 877.51 H ABG pH POC ABG pCO2 POC ABG pO2 ABG pO2 ABG HCO3 ABG O2 Saturation ABG Base Excess ABG Hemoglobin ABG Oxyhemoglobin ABG Potassium ABG Glucose VBG pH Oxyhemoglobin Sodium Potassium Chloride Carbon Dioxide 36 H BUN 21 H Creatinine 0.6 L Glucose 123 H POC Glucose Hemoglobin A1c Magnesium Ferritin AST Lactate Dehydrogenase C-Reactive Protein Albumin Arterial Blood Glucose Coronavirus (PCR) 09/06/20 09/06/20 10:43 10:43 WBC Lymph % (Auto) [place] % (Auto) Lymph # (Auto) [place] # (Auto) Seg Neutrophils % Seg Neuts % (Manual) Lymphocytes % (Manual) Seg Neutrophils # Seg Neutrophils # Man Lymphocytes # (Manual) Monocytes # (Manual) D-Dimer ABG pH POC ABG pCO2 POC ABG pO2 ABG pO2 ABG HCO3 ABG O2 Saturation ABG Base Excess ABG Hemoglobin ABG Oxyhemoglobin ABG Potassium ABG Glucose VBG pH Oxyhemoglobin Sodium Potassium Chloride Carbon Dioxide BUN Creatinine Glucose POC Glucose Hemoglobin A1c Magnesium Ferritin 666.4 H AST Lactate Dehydrogenase 607 H C-Reactive Protein Albumin Arterial Blood Glucose Coronavirus (PCR)
[2020-09-08] MEDS: methylPREDNISolone Sod Succinate 40 MG/1 ML INJ IV SCH ×3 (05:45→21:44)
[2020-09-08] MEDS: ASCORBIC ACID 500 MG TAB PO SCH ×2 (11:14→21:44)
[2020-09-08] MEDS: APIXABAN 5 MG TAB PO SCH ×2 (11:14→21:44)
[2020-09-08] MEDS: ZINC SULFATE 220 MG CAP PO SCH (11:14)
[2020-09-08] MEDS: FAMOTIDINE 20 MG TAB PO SCH ×2 (11:15→21:44)
--- NOTE | 2020-09-08 12:49 | Progress Note ---
Assessment and Plan 30 y/o morbidly obese male with acute respiratory failure secondary to COVID 19 pneumonia. now found to have DVT in lower ext. 09/08/20: Wean As tolerated. Prone as able. Hold lasix. Will check labs over the weekend. Guarded prognosis. 09/07/20: Continue steroids now especially with improvement in the last 24 hours. Hold on lasix again today. May be labs on 09/08/20 09/06/20: Will continue steroids. Likely will stop in next 48 hours as patient not having improvement. Inflammatory markers are better. Would be a good candidate for LTACH but no funding. Prone as much as tolerated. Guarded prognosis. hold on lasix today, suggest checking labs tomorrow. 09/05/20: Lasix again today. Will continue steroids. Prne as much as tolerated. Guarded prognosis. 09/04/20: Will continue steroids given mild improvement. Prone as much as tolerated. Lasix again today. Bipap at night. 09/01/20: Continue steroids at least through the weekend. Continue to prone as much as tolerated. Lasix 40mg IV again today. BIpap QHS. Very very guarded prognosis. He has been hanging out in the high 80's low 90's for weeks now. 08/31/20: Going to place patient back on steroids. Will do solumedrol 40q8 at least for the next 48-72 hours to see if this helps. Checked stat labs this morning to evaluate renal function and potassium levels before anymore lasix is given. Continue to prone as tolerated and bipap QHS. Prognosis remains guarded. 08/30/20: Proning is a must. Will give lasix 40 today. Continue anticoagulation. Prognosis remians very very guarded. Avoid intubation at all costs. 08/29/20: Continue to prone as tolerated during the day and sleep prone at night. HOld on lasix today. Continue anticoagulation. Guarded prognosis. 08/28/20: Continue to prone as tolerated. Today will give lasix 40 to see if th is helps. Will discuss with cardiology about echo. Clinically patient looks the same and not in distress. If PE is present, likely not large enough for EKOS. Given his high O2 requirement, prefer not to try CTA at this time as I feel the risks outweigh the benefits. 08/27/20: Long discussion with patient again at bedside today. May need to consider repeat ECHO to look for right heart strain. We know he had VTE in the lower ext but never had to oppurtunity to truly rule him out for PE. Cousin who is an [employer]ER in outpatient setting at [facility] asked some questions so I spoke with her via the phone. She is going to help encourage proning. Will give more lasix today. Very very guarded prognosis. 08/26/20: Pulm status is more stable today compared to yesterday. Continue bipap PRN and QHS. Will give IV lasix again today. Prognosis still remains very guarded. 08/25/20: Placed back on bipap this am secondary to desaturations and lower mental state than before. Patient has been stable and making improvements but now seems to be headed in the wrong direction. Will monitor very closely as he is a high risk for intubation and bad outcomes. Very very guarded prognosis. Will give lasix today. 08/24/20: Encouraged more proning. Continue BIpap QHS and PRN. unfortunately, no funding, patient would be a good LTACH candidate as he will likely take a long time to wean from HFNC. 08/23/20: No new recs. Proning is metcalf. Will continue to follow. Appreciate ID recs and help. 08/22/20: Bipap PRN and QHS. Will given lasix today. Prone as tolerated. PT continues. Slight improvement. Will continue to follow. 08/21/20: Bipap PRN and QHS. Hold on lasix today. Continue to prone as much as tolerated. Will order PT consult. 08/18/20: Bipap pRN and QHS. More lasix today. Prone as tolerated during the day and sleep prone at night. Continue to try to hold off on intubation. Gu arded prognosis. 08/17/20: Continue anticoagulation. Still trying to prevent intubation however will do electively if and when needed to prevent and emergent situation as patient will likely be difficult given neck and body habitus. Continue prone as tolerated. Steroids and remdesivir. 08/16/20: Anticoagulation. Prone as tolerated. Wean bipap as tolerated. Prognosis remains guarded. Trying to prevent intubation given poor outcomes associated with mechanically ventilated obese COVID patients. 08/15/20: Continue therapeutic anticoagulation. No current indication for vascular consult given no evidence of right heart strain on echo. CT would only be beneficial if we thought it would show large enough clot to warrant EKOS and with no evidence of strain, I doubt that will be the case. Continue proning as much as tolerated. Spoke with mother over the phone to update her. Patient al so got actemra on yesterday as well. Prognosis remains guarded 08/14/20: Will accept sats in the mid 80's as long as mental state and work of breathing do not change. AGree with lasix therapy. Found to have large DVT on right. Spoke with [facility] and asked them to order stat echo to look for right heart strain, and if present may need to consider echos. Await echo before vascular consult. Prone if possible. Long discussion with mother on phone. Gave her a list of the meds he is on and what our current plan is. Also very candid with her and son at bedside that the mortality rate with COVID is very very high. 08/13/20: Lasix again today. Continue to alternate between HFNC with NRB and bipap. Prognosis is very very guarded. Very very guarded to poor prognosis given CXR appearance, and body habitus, along with rapid decline in self sustaning oxygen levels. Agree with lasix and increase in steroids. Must prone. Very high likelihood for mechanical ventilation which would carry a high mortality for patient. Will continue to follow. No additional IVF's unless indicated. Subjective Date of service: 09/08/20 Principal diagnosis: COVID Interval history: No acute events. Still on bipap but about to go on high flow. STable. Objective Vital Signs - 12hr 09/08/20 09/08/20 09/08/20 01:01 01:20 02:01 Temperature Pulse Rate 76 70 78 Pulse Rate [ From Monitor] Respiratory 10 L 20 15 Rate Blood Pressure 134/79 134/79 O2 Sat by Pulse 99 100 100 Oximetry 09/08/20 09/08/20 09/08/20 03:01 03:50 04:00 Temperature 98.6 F Pulse Rate 76 70 Pulse Rate [ 70 From Monitor] Respiratory 10 L 14 Rate Blood Pressure 145/79 O2 Sat by Pulse 100 99 Oximetry 09/08/20 09/08/20 09/08/20 04:01 05:01 05:02 Temperature Pulse Rate 67 65 72 Pulse Rate [ From Monitor] Respiratory 11 L 20 20 Rate Blood Pressure 145/79 145/79 O2 Sat by Pulse 100 97 100 Oximetry 09/08/20 09/08/20 09/08/20 06:01 07:04 07:40 Temperature 98.6 F Pulse Rate 61 56 L Pulse Rate [ From Monitor] Respiratory 9 L 12 Rate Blood Pressure 129/62 O2 Sat by Pulse 100 Oximetry 09/08/20 09/08/20 09/08/20 08:00 08:26 09:00 Temperature Pulse Rate 64 58 L 60 Pulse Rate [ 72 From Monitor] Respiratory 12 22 10 L Rate Blood Pressure 131/79 131/79 132/54 O2 Sat by Pulse 99 100 100 Oximetry 09/08/20 09/08/20 09/08/20 10:00 11:00 12:24 Temperature 98.5 F Pulse Rate 69 66 Pulse Rate [ From Monitor] Respiratory 10 L 13 Rate Blood Pressure 132/54 176/95 O2 Sat by Pulse 100 100 Oximetry Constitutional: no acute distress, alert Eyes: non-icteric ENT: oropharynx moist Neck: supple Effort: normal Ascultation: Bilateral: clear Cardiovascular: regular rate and rhythm (no mrg) Gastrointestinal: normoactive bowel sounds, soft, non-distended Integumentary: normal Extremities: no cyanosis, no edema, pink and warm Neurologic: normal mental status, non-focal exam Psychiatric: mood appropriate, affect normal CBC and BMP: 09/05/20 07:11 09/05/20 07:11 ABG, PT/INR, D-dimer: ABG ABG pH 7.313 pH Units (7.350-7.450) L 08/25/20 12:30 POC ABG pCO2 46.9 mmHg (32.0-48.0) 08/14/20 08:23 ABG pCO2 67.2 mm Hg 08/25/20 12:30 POC ABG pO2 50.0 mmHg (83-108) L 08/14/20 08:23 ABG pO2 76.2 mm Hg (80.0-90.0) L 08/25/20 12:30 POC ABG HCO3 31.4 08/14/20 08:23 ABG O2 Saturation 94.9 % (95.0-99.0) L 08/25/20 12:30 PT/INR, D-dimer PT 12.6 Sec. (12.2-14.9) 08/10/20 08:29 INR 0.96 (0.87-1.13) 08/10/20 08:29 D-Dimer 877.51 ng/mlDDU (0-234) H 09/06/20 10:43 Abnormal lab findings: Abnormal Labs 08/10/20 08/10/20 08/10/20 08:29 08:29 08:29 WBC Lymph % (Auto) [place] % (Auto) 8.4 H Lymph # (Auto) [place] # (Auto) Seg Neutrophils % Seg Neuts % (Manual) Lymphocytes % (Manual) Seg Neutrophils # Seg Neutrophils # Man Lymphocytes # (Manual) Monocytes # (Manual) D-Dimer ABG pH POC ABG pCO2 POC ABG pO2 ABG pO2 ABG HCO3 ABG O2 Saturation ABG Base Excess ABG Hemoglobin ABG Oxyhemoglobin ABG Potassium ABG Glucose VBG pH 7.303 L Oxyhemoglobin Sodium Potassium Chloride Carbon Dioxide BUN Creatinine Glucose 132 H POC Glucose Hemoglobin A1c Magnesium Ferritin AST Lactate Dehydrogenase C-Reactive Protein Albumin Arterial Blood Glucose Coronavirus (PCR) 08/11/20 08/11/20 08/11/20 05:39 05:39 05:39 WBC Lymph % (Auto) 12.5 L [place] % (Auto) Lymph # (Auto) [place] # (Auto) Seg Neutrophils % 84.2 H Seg Neuts % (Manual) Lymphocytes % (Manual) Seg Neutrophils # 9.1 H Seg Neutrophils # Man Lymphocytes # (Manual) Monocytes # (Manual) D-Dimer ABG pH POC ABG pCO2 POC ABG pO2 ABG pO2 ABG HCO3 ABG O2 Saturation ABG Base Excess ABG Hemoglobin ABG Oxyhemoglobin ABG Potassium ABG Glucose VBG pH Oxyhemoglobin Sodium Potassium Chloride Carbon Dioxide BUN Creatinine Glucose 125 H POC Glucose Hemoglobin A1c 6.1 H Magnesium Ferritin AST Lactate Dehydrogenase C-Reactive Protein Albumin Arterial Blood Glucose Coronavirus (PCR) 08/11/20 08/11/20 08/11/20 18:58 18:58 18:58 WBC Lymph % (Auto) [place] % (Auto) Lymph # (Auto) [place] # (Auto) Seg Neutrophils % Seg Neuts % (Manual) Lymphocytes % (Manual) Seg Neutrophils # Seg Neutrophils # Man Lymphocytes # (Manual) Monocytes # (Manual) D-Dimer 464.84 H ABG pH POC ABG pCO2 POC ABG pO2 ABG pO2 ABG HCO3 ABG O2 Saturation ABG Base Excess ABG Hemoglobin ABG Oxyhemoglobin ABG Potassium ABG Glucose VBG pH Oxyhemoglobin Sodium Potassium Chloride Carbon Dioxide BUN Creatinine Glucose POC Glucose Hemoglobin A1c Magnesium Ferritin 528.7 H AST Lactate Dehydrogenase 637 H C-Reactive Protein 11.30 H Albumin Arterial Blood Glucose Coronavirus (PCR) 08/11/20 08/11/20 08/12/20 19:08 Unknown 06:29 WBC 11.2 H Lymph % (Auto) 8.6 L [place] % (Auto) Lymph # (Auto) 1.0 L [place] # (Auto) Seg Neutrophils % 88.3 H Seg Neuts % (Manual) Lymphocytes % (Manual) Seg Neutrophils # 9.8 H Seg Neutrophils # Man Lymphocytes # (Manual) Monocytes # (Manual) D-Dimer ABG pH POC ABG pCO2 POC ABG pO2 ABG pO2 ABG HCO3 ABG O2 Saturation ABG Base Excess ABG Hemoglobin ABG Oxyhemoglobin ABG Potassium ABG Glucose VBG pH Oxyhemoglobin Sodium Potassium Chloride Carbon Dioxide BUN Creatinine Glucose 161 H POC Glucose Hemoglobin A1c Magnesium Ferritin AST Lactate Dehydrogenase C-Reactive Protein Albumin Arterial Blood Glucose Coronavirus (PCR) Positive A 08/12/20 08/12/20 08/12/20 06:29 06:29 06:29 WBC Lymph % (Auto) [place] % (Auto) Lymph # (Auto) [place] # (Auto) Seg Neutrophils % Seg Neuts % (Manual) Lymphocytes % (Manual) Seg Neutrophils # Seg Neutrophils # Man Lymphocytes # (Manual) Monocytes # (Manual) D-Dimer 830.34 H ABG pH POC ABG pCO2 POC ABG pO2 ABG pO2 ABG HCO3 ABG O2 Saturation ABG Base Excess ABG Hemoglobin ABG Oxyhemoglobin ABG Potassium ABG Glucose VBG pH Oxyhemoglobin Sodium Potassium Chloride Carbon Dioxide 31 H BUN Creatinine Glucose 138 H POC Glucose Hemoglobin A1c Magnesium Ferritin 572.6 H AST 42 H Lactate Dehydrogenase 706 H C-Reactive Protein 17.30 H Albumin 3.7 L Arterial Blood Glucose Coronavirus (PCR) 08/12/20 08/12/20 08/12/20 13:21 14:55 21:59 WBC Lymph % (Auto) [place] % (Auto) Lymph # (Auto) [place] # (Auto) Seg Neutrophils % Seg Neuts % (Manual) Lymphocytes % (Manual) Seg Neutrophils # Seg Neutrophils # Man Lymphocytes # (Manual) Monocytes # (Manual) D-Dimer ABG pH 7.315 L POC ABG pCO2 57.1 H POC ABG pO2 47.8 L ABG pO2 65.8 L ABG HCO3 31.4 H ABG O2 Saturation 91.7 L ABG Base Excess ABG Hemoglobin 19.3 H ABG Oxyhemoglobin ABG Potassium 4.9 H ABG Glucose 182 H VBG pH Oxyhemoglobin 89.7 L Sodium Potassium Chloride Carbon Dioxide BUN Creatinine Glucose POC Glucose 142 H Hemoglobin A1c Magnesium Ferritin AST Lactate Dehydrogenase C-Reactive Protein Albumin Arterial Blood Glucose 182 H Coronavirus (PCR) 08/13/20 08/13/20 08/13/20 05:35 05:35 12:11 WBC 12.0 H Lymph % (Auto) 8.1 L [place] % (Auto) Lymph # (Auto) 1.0 L [place] # (Auto) Seg Neutrophils % 88.0 H Seg Neuts % (Manual) Lymphocytes % (Manual) Seg Neutrophils # 10.5 H Seg Neutrophils # Man Lymphocytes # (Manual) Monocytes # (Manual) D-Dimer ABG pH POC ABG pCO2 POC ABG pO2 ABG pO2 ABG HCO3 ABG O2 Saturation ABG Base Excess ABG Hemoglobin ABG Oxyhemoglobin ABG Potassium ABG Glucose VBG pH Oxyhemoglobin Sodium Potassium 5.1 H Chloride Carbon Dioxide 31 H BUN 25 H Creatinine Glucose 174 H POC Glucose 154 H Hemoglobin A1c Magnesium Ferritin AST 41 H Lactate Dehydrogenase 996 H C-Reactive Protein Albumin 3.8 L Arterial Blood Glucose Coronavirus (PCR) 08/13/20 08/13/20 08/14/20 16:18 23:24 05:21 WBC 14.2 H Lymph % (Auto) 8.2 L [place] % (Auto) Lymph # (Auto) [place] # (Auto) 0.9 H Seg Neutrophils % 85.4 H Seg Neuts % (Manual) Lymphocytes % (Manual) Seg Neutrophils # 12.2 H Seg Neutrophils # Man Lymphocytes # (Manual) Monocytes # (Manual) D-Dimer ABG pH POC ABG pCO2 POC ABG pO2 ABG pO2 ABG HCO3 ABG O2 Saturation ABG Base Excess ABG Hemoglobin ABG Oxyhemoglobin ABG Potassium ABG Glucose VBG pH Oxyhemoglobin Sodium Potassium Chloride Carbon Dioxide BUN Creatinine Glucose POC Glucose 188 H 127 H Hemoglobin A1c Magnesium Ferritin AST Lactate Dehydrogenase C-Reactive Protein Albumin Arterial Blood Glucose Coronavirus (PCR) 08/14/20 08/14/20 08/14/20 05:21 05:21 05:21 WBC Lymph % (Auto) [place] % (Auto) Lymph # (Auto) [place] # (Auto) Seg Neutrophils % Seg Neuts % (Manual) Lymphocytes % (Manual) Seg Neutrophils # Seg Neutrophils # Man Lymphocytes # (Manual) Monocytes # (Manual) D-Dimer > 40394 H ABG pH POC ABG pCO2 POC ABG pO2 ABG pO2 ABG HCO3 ABG O2 Saturation ABG Base Excess ABG Hemoglobin ABG Oxyhemoglobin ABG Potassium ABG Glucose VBG pH Oxyhemoglobin Sodium Potassium Chloride Carbon Dioxide 32 H 33 H BUN 26 H 26 H Creatinine Glucose 152 H 156 H POC Glucose Hemoglobin A1c Magnesium Ferritin AST 53 H 54 H Lactate Dehydrogenase 1249 H C-Reactive Protein 9.90 H Albumin 3.7 L 3.7 L Arterial Blood Glucose Coronavirus (PCR) 08/14/20 08/14/20 08/14/20 05:21 05:58 08:23 WBC Lymph % (Auto) [place] % (Auto) Lymph # (Auto) [place] # (Auto) Seg Neutrophils % Seg Neuts % (Manual) Lymphocytes % (Manual) Seg Neutrophils # Seg Neutrophils # Man Lymphocytes # (Manual) Monocytes # (Manual) D-Dimer ABG pH POC ABG pCO2 POC ABG pO2 50.0 L ABG pO2 ABG HCO3 ABG O2 Saturation ABG Base Excess ABG Hemoglobin ABG Oxyhemoglobin 84.0 L ABG Potassium ABG Glucose 141 H VBG pH Oxyhemoglobin Sodium Potassium Chloride Carbon Dioxide BUN Creatinine Glucose POC Glucose 139 H Hemoglobin A1c Magnesium Ferritin 1198.0 H AST Lactate Dehydrogenase C-Reactive Protein Albumin Arterial Blood Glucose 141 H Coronavirus (PCR) 08/15/20 08/15/20 08/16/20 05:16 05:16 05:26 WBC 13.7 H 17.7 H Lymph % (Auto) 8.2 L [place] % (Auto) Lymph # (Auto) [place] # (Auto) Seg Neutrophils % 86.2 H Seg Neuts % (Manual) 91.0 H 88.0 H Lymphocytes % (Manual) 7.0 L 9.0 L Seg Neutrophils # 15.3 H Seg Neutrophils # Man 12.5 H 15.6 H Lymphocytes # (Manual) 1.0 L Monocytes # (Manual) D-Dimer ABG pH POC ABG pCO2 POC ABG pO2 ABG pO2 ABG HCO3 ABG O2 Saturation ABG Base Excess ABG Hemoglobin ABG Oxyhemoglobin ABG Potassium ABG Glucose VBG pH Oxyhemoglobin Sodium Potassium Chloride Carbon Dioxide 32 H BUN 29 H Creatinine Glucose 150 H POC Glucose Hemoglobin A1c Magnesium Ferritin AST Lactate Dehydrogenase 1150 H C-Reactive Protein Albumin 3.5 L Arterial Blood Glucose Coronavirus (PCR) 08/16/20 08/16/20 08/16/20 05:26 05:26 05:26 WBC Lymph % (Auto) [place] % (Auto) Lymph # (Auto) [place] # (Auto) Seg Neutrophils % Seg Neuts % (Manual) Lymphocytes % (Manual) Seg Neutrophils # Seg Neutrophils # Man Lymphocytes # (Manual) Monocytes # (Manual) D-Dimer > 56978 H ABG pH POC ABG pCO2 POC ABG pO2 ABG pO2 ABG HCO3 ABG O2 Saturation ABG Base Excess ABG Hemoglobin ABG Oxyhemoglobin ABG Potassium ABG Glucose VBG pH Oxyhemoglobin Sodium Potassium 5.2 H Chloride Carbon Dioxide BUN 25 H Creatinine Glucose 163 H POC Glucose Hemoglobin A1c Magnesium Ferritin 1013.0 H AST Lactate Dehydrogenase C-Reactive Protein 4.00 H Albumin 3.6 L Arterial Blood Glucose Coronavirus (PCR) 08/17/20 08/17/20 08/17/20 05:06 05:06 07:51 WBC 20.7 H Lymph % (Auto) [place] % (Auto) Lymph # (Auto) [place] # (Auto) Seg Neutrophils % Seg Neuts % (Manual) 86.0 H Lymphocytes % (Manual) 7.0 L Seg Neutrophils # Seg Neutrophils # Man 17.8 H Lymphocytes # (Manual) Monocytes # (Manual) 1.2 H D-Dimer ABG pH POC ABG pCO2 POC ABG pO2 ABG pO2 ABG HCO3 ABG O2 Saturation ABG Base Excess ABG Hemoglobin ABG Oxyhemoglobin ABG Potassium ABG Glucose VBG pH Oxyhemoglobin Sodium Potassium Chloride 96.5 L Carbon Dioxide 31 H BUN 29 H Creatinine Glucose 121 H POC Glucose 110 H Hemoglobin A1c Magnesium Ferritin AST 46 H Lactate Dehydrogenase C-Reactive Protein Albumin 3.7 L Arterial Blood Glucose Coronavirus (PCR) 08/17/20 08/17/20 08/18/20 11:42 21:45 05:13 WBC Lymph % (Auto) [place] % (Auto) Lymph # (Auto) [place] # (Auto) Seg Neutrophils % Seg Neuts % (Manual) Lymphocytes % (Manual) Seg Neutrophils # Seg Neutrophils # Man Lymphocytes # (Manual) Monocytes # (Manual) D-Dimer > 1000 H ABG pH POC ABG pCO2 POC ABG pO2 ABG pO2 ABG HCO3 ABG O2 Saturation ABG Base Excess ABG Hemoglobin ABG Oxyhemoglobin ABG Potassium ABG Glucose VBG pH Oxyhemoglobin Sodium Potassium Chloride Carbon Dioxide BUN Creatinine Glucose POC Glucose 122 H 143 H Hemoglobin A1c Magnesium Ferritin AST Lactate Dehydrogenase C-Reactive Protein Albumin Arterial Blood Glucose Coronavirus (PCR) 08/18/20 08/18/20 08/21/20 05:13 05:13 11:17 WBC Lymph % (Auto) [place] % (Auto) Lymph # (Auto) [place] # (Auto) Seg Neutrophils % Seg Neuts % (Manual) Lymphocytes % (Manual) Seg Neutrophils # Seg Neutrophils # Man Lymphocytes # (Manual) Monocytes # (Manual) D-Dimer ABG pH POC ABG pCO2 POC ABG pO2 ABG pO2 ABG HCO3 ABG O2 Saturation ABG Base Excess ABG Hemoglobin ABG Oxyhemoglobin ABG Potassium ABG Glucose VBG pH Oxyhemoglobin Sodium 133 L Potassium Chloride 94.7 L Carbon Dioxide BUN 33 H Creatinine Glucose 110 H POC Glucose 151 H Hemoglobin A1c Magnesium Ferritin 979.8 H AST 50 H Lactate Dehydrogenase C-Reactive Protein Albumin 3.7 L Arterial Blood Glucose Coronavirus (PCR) 08/21/20 08/21/20 08/21/20 13:39 13:39 15:55 WBC Lymph % (Auto) [place] % (Auto) Lymph # (Auto) [place] # (Auto) Seg Neutrophils % Seg Neuts % (Manual) Lymphocytes % (Manual) Seg Neutrophils # Seg Neutrophils # Man Lymphocytes # (Manual) Monocytes # (Manual) D-Dimer 6731.66 H ABG pH POC ABG pCO2 POC ABG pO2 ABG pO2 ABG HCO3 ABG O2 Saturation ABG Base Excess ABG Hemoglobin ABG Oxyhemoglobin ABG Potassium ABG Glucose VBG pH Oxyhemoglobin Sodium Potassium Chloride Carbon Dioxide BUN Creatinine Glucose POC Glucose Hemoglobin A1c Magnesium Ferritin 1019.0 H AST Lactate Dehydrogenase 1251 H C-Reactive Protein Albumin Arterial Blood Glucose Coronavirus (PCR) 08/22/20 08/22/20 08/25/20 05:23 05:23 12:30 WBC 24.7 H Lymph % (Auto) [place] % (Auto) Lymph # (Auto) [place] # (Auto) Seg Neutrophils % Seg Neuts % (Manual) Lymphocytes % (Manual) Seg Neutrophils # Seg Neutrophils # Man Lymphocytes # (Manual) Monocytes # (Manual) D-Dimer ABG pH 7.313 L POC ABG pCO2 POC ABG pO2 ABG pO2 76.2 L ABG HCO3 33.3 H ABG O2 Saturation 94.9 L ABG Base Excess 5.0 H ABG Hemoglobin 13.4 L ABG Oxyhemoglobin ABG Potassium ABG Glucose VBG pH Oxyhemoglobin 93.0 L Sodium 136 L Potassium Chloride 96.3 L Carbon Dioxide BUN 24 H Creatinine 0.7 L Glucose 115 H POC Glucose Hemoglobin A1c Magnesium Ferritin AST Lactate Dehydrogenase C-Reactive Protein Albumin Arterial Blood Glucose Coronavirus (PCR) 08/25/20 08/25/20 08/25/20 16:08 16:08 16:08 WBC Lymph % (Auto) [place] % (Auto) Lymph # (Auto) [place] # (Auto) Seg Neutrophils % Seg Neuts % (Manual) Lymphocytes % (Manual) Seg Neutrophils # Seg Neutrophils # Man Lymphocytes # (Manual) Monocytes # (Manual) D-Dimer 4487.76 H ABG pH POC ABG pCO2 POC ABG pO2 ABG pO2 ABG HCO3 ABG O2 Saturation ABG Base Excess ABG Hemoglobin ABG Oxyhemoglobin ABG Potassium ABG Glucose VBG pH Oxyhemoglobin Sodium Potassium Chloride Carbon Dioxide BUN Creatinine Glucose POC Glucose Hemoglobin A1c Magnesium Ferritin 961.4 H AST Lactate Dehydrogenase 959 H C-Reactive Protein Albumin Arterial Blood Glucose Coronavirus (PCR) 08/26/20 08/26/20 08/31/20 07:11 07:11 10:56 WBC Lymph % (Auto) [place] % (Auto) 9.8 H Lymph # (Auto) [place] # (Auto) 1.0 H Seg Neutrophils % Seg Neuts % (Manual) Lymphocytes % (Manual) Seg Neutrophils # Seg Neutrophils # Man Lymphocytes # (Manual) Monocytes # (Manual) D-Dimer ABG pH POC ABG pCO2 POC ABG pO2 ABG pO2 ABG HCO3 ABG O2 Saturation ABG Base Excess ABG Hemoglobin ABG Oxyhemoglobin ABG Potassium ABG Glucose VBG pH Oxyhemoglobin Sodium 135 L Potassium Chloride 95.7 L 97.4 L Carbon Dioxide 33 H 34 H BUN Creatinine 0.6 L Glucose 109 H POC Glucose Hemoglobin A1c Magnesium 2.40 H Ferritin AST Lactate Dehydrogenase C-Reactive Protein Albumin Arterial Blood Glucose Coronavirus (PCR) 09/05/20 09/05/20 09/06/20 07:11 07:11 10:43 WBC 14.0 H Lymph % (Auto) 10.8 L [place] % (Auto) Lymph # (Auto) [place] # (Auto) Seg Neutrophils % 82.6 H Seg Neuts % (Manual) Lymphocytes % (Manual) Seg Neutrophils # 11.6 H Seg Neutrophils # Man Lymphocytes # (Manual) Monocytes # (Manual) D-Dimer 877.51 H ABG pH POC ABG pCO2 POC ABG pO2 ABG pO2 ABG HCO3 ABG O2 Saturation ABG Base Excess ABG Hemoglobin ABG Oxyhemoglobin ABG Potassium ABG Glucose VBG pH Oxyhemoglobin Sodium Potassium Chloride Carbon Dioxide 36 H BUN 21 H Creatinine 0.6 L Glucose 123 H POC Glucose Hemoglobin A1c Magnesium Ferritin AST Lactate Dehydrogenase C-Reactive Protein Albumin Arterial Blood Glucose Coronavirus (PCR) 09/06/20 09/06/20 10:43 10:43 WBC Lymph % (Auto) [place] % (Auto) Lymph # (Auto) [place] # (Auto) Seg Neutrophils % Seg Neuts % (Manual) Lymphocytes % (Manual) Seg Neutrophils # Seg Neutrophils # Man Lymphocytes # (Manual) Monocytes # (Manual) D-Dimer ABG pH POC ABG pCO2 POC ABG pO2 ABG pO2 ABG HCO3 ABG O2 Saturation ABG Base Excess ABG Hemoglobin ABG Oxyhemoglobin ABG Potassium ABG Glucose VBG pH Oxyhemoglobin Sodium Potassium Chloride Carbon Dioxide BUN Creatinine Glucose POC Glucose Hemoglobin A1c Magnesium Ferritin 666.4 H AST Lactate Dehydrogenase 607 H C-Reactive Protein Albumin Arterial Blood Glucose Coronavirus (PCR)
--- NOTE | 2020-09-08 17:28 | Progress Note ---
Assessment and Plan Assessment and plan: Patient remains on high flow oxygen 30 L oxygen, limited BiPAP clinically no change Guarded prognosis --Acute hypoxic respiratory failure secondary to COVID-19 PNA Pt remains on high flow oxygen 40/100/93 intermittent 100% nonrebreather Patient unstable to go for CTA chest to evaluate the cause of persistent hypoxia pulmonary following, Home O2 evaluation at discharge --COVID-19 Pneumonia Continue antibiotics Continue steroids total 10 days s/p Remdesivir, s/p tocilizumab On HF NCO 2, titrate and wean as tolerated Decreased to 40 L/ 85 percent Fio2/97% O2 sats --Right lower extremity DVT on LE Doppler study LE Doppler LE Doppler shows RLE DVT. Echocardiogram shows no right heart strain. On Eliquis per protocol --Sinus bradycardia /resolved Likely from remdesivir Heart rate in 60s and 70s today TSH wnl --Morbid obesity; BMI 41.9 Diet and exercise advised Patient needs outpatient bariatric surgical/medical weight reduction consult when medically stable --Positive DVT ;-on Eliquis Continues to be on high flow oxygen, Wean as tolerated We will closely monitor the patient and adjust management as needed Supervisor Operations recommendations noted and appreciated Plan of care reviewed with the patient and his nurse and the case management The high probability of a clinically significant, sudden or life threatening deterioration of the [pulmonary,Vascular,ID,CVS and hematology] system(s) required my full and direct attention, intervention and personal management. The aggregate critical care time was [34] minutes. This time is in addition to time spent performing reported procedures but includes the following: [x] Data Review and interpretation [x] Patient assessment and monitoring of vital signs [x] Documentation [x] Medication orders and management Brief history 30-year-old male with morbid obesity weighing about 310 pounds was admitted t [facility] emergency room with frontal headache for 3 days. Patient was noted to be hypoxic with shortness of breath and cough O2 sats room air were in the 80s, requiring high flow oxygen, BiPAP, patient was admitted to IMCU Patient was PUI, placed in isolation, gillespie PCR test was positive, evaluated by ID and pulmonary, medications optimized and patient was being managed per COVID-19 protocols and guidelines. Patient continues to depend on high flow oxygen and BiPAP. Today patient continues to be on very high flow oxygen of 40 L/85% FiO2/94 to 96% O2 sats Patient advised bariatric surgical consultation upon discharge for weight reduction program Work-up in the emergency room showed bilateral patchy opacities in the lungs and hypoxia-hence he was admitted for bilateral pneumonia and possible Covid pneumonia. No significant past medical history Daily Hospital course: 08/11. Patient seen examined at bedside this morning. Has no complaints. Febrile this a.m.-103 Fahrenheit. On Tylenol as needed. COVID-19 test ordered. Remains on steroids. ID consult if COVID-19 is positive. 08/12. His COVID-19 test is positive. He was started on remdesivir last night. Oxygen requirement increased overnight. Inflammatory markers increasing. Repeat chest xray shows worsening infiltrates. Ordered BNP. Lasix 40mg IV ordered. Increased dexamethasone to 6mg BID. Pulmonology consulted. Will place on continuous pulse oximetry. Incentive spirometer ordered. Advised prone positioning. 08/13. Not feeling better. Seen on BIPAP. Remains on steroids, remdesivir and antibiotics. Vitals stable. 08/14. Still maintaining sats even on BiPAP. Lasix 40 mg IV ordered. D-dimer this a.m. is more than 10,000. Lovenox increased to 150 mg twice daily. Ultrasound lower extremities Doppler showed a right DVT. Echocardiogram ordered to rule out right heart strain. Pending results, patient may need vascular surgery evaluation for possible thrombectomy. Continue on BiPAP and continue to monitor respiratory status closely. 08/15. Sats better this AM. Received toculizumab yesterday. Advised him to prone as much as possible. Echo shows normal EF with no right heart strain. I/Os reviewed. He is diuresing well. Renal function is stable. Will give additional lasix today. Pulmonology following 08/16. Remains on remdesivir. Still on BIPAP. Will give lasix 20mg IV. HR is low - likley effect of remdesivir. Will continue to monitor closely 08/17. Sats in the 90's this AM. Still on BIPAP. 08/18; patient remains hypoxic requiring BiPAP and 100% nonrebreather intermittently 08/19; Continue supportive care, wean oxygen as tolerated. Encouraged PRONE positioning if able to tolerate. 08/20:Remains on BiPAP. continue lasix, still not proninig, encouraged to prone, FIO2 down to 90% with sat of 96%. Continue care, prognosis still guarded. 08/21: Patient down on high flow. Continue to encourage proning position. Still with guarded prognosis. Elevation in WBC noted to 20 this could be secondary to steroids I will continue to monitor. No fever noted at this time. Patient's respiratory status has stabilized on the high flow with no shallow breathing noted Discussed with the nurse at bedside 08/22; DC Lovenox therapeutic dose, start Eliquis per protocol to treat lower extremity DVT. 08/23; patient remains on high flow oxygen 40 L/100 FiO2/94% O2 sats, intermittent BiPAP 08/24; patient remains on high flow oxygen and BiPAP, consultants recommendations noted and appreciated 08/25; patient continues to be hypoxemic, on high flow oxygen 40L/ 100 FiO2/95 O2 sats and on intermittent BiPAP 08/26; patient continues to be on high flow oxygen, unable to wean follow pulmonary recommendations 08/27; patient remains on high flow oxygen 40 L/100% FiO2/95% O2 sats with intermittent BiPAP treatment 08/28; patient remains on high flow oxygen, strongly advised to prone as tolerated, consults and recommendations noted and appreciated 08/29; closely monitor the patient and adjust management as needed, wean oxygen as tolerated Home oxygen evaluation, DC planning when medically stable 08/30; clinically no change, remains on high flow oxygen, wean as tolerated Consultants recommendations noted . 08/31; patient remains on high flow oxygen 40/100/93 09/01/20;patient remains on high flow oxygen 40/100/93 09/02/20; Same 09/03:Same 09/04:Some omproment, Sitting in Chair On 80 percent FIO2, 40 liters NC O 2 High flow 09/05: Patient feels slightly better Continues to be on high flow oxygen wean as tolerated Continue current management 09/06: Patient continues to require high flow oxygen at the settings of 40 L/85 FiO2/O2 sats 97% 09/07; oxygen requirement slightly improved today on 30 L/70% FiO2/100% O2 sats Encouraging prone position as tolerated 09/08; 30 L nasal cannula intermittent BiPAP, continue current management History Interval history: I have seen and examined the patient at the bedside isolation precautions PPE protocol strictly followed Patient remains on high flow oxygen and intermittent BiPAP 30 L oxygen, patient is in mild distress looks very tired Vital signs noted Hospitalist Physical - Constitutional Vitals: Temp Pulse Resp BP Pulse Ox 99.2 F 66 13 176/95 96 09/08/20 16:43 09/08/20 11:00 09/08/20 11:00 09/08/20 11:00 09/08/20 16:13 General appearance: Present: mild distress, well-nourished, obese, other (1- nasal cannula oxygen) - EENT Eyes: Present: PERRL, EOM intact - Neck Neck: Present: supple, normal ROM - Respiratory Respiratory effort: normal Respiratory: bilateral: diminished, negative: rales, rhonchi, wheezing - Cardiovascular Rhythm: regular Heart Sounds: Present: S1 & S2 - Extremities Extremities: no ischemia, No edema - Abdominal General gastrointestinal: soft, non-tender, non-distended, normal bowel sounds - Integumentary Integumentary: Present: clear, warm - Psychiatric Psychiatric: appropriate mood/affect, cooperative - Neurologic Neurologic: CNII-XII intact, moves all extremities Results - Labs CBC & Chem 7: 09/05/20 07:11 09/05/20 07:11 Labs: Laboratory Last Values WBC 14.0 K/mm3 (4.5-11.0) H 09/05/20 07:11 RBC 4.79 M/mm3 (3.65-5.03) 09/05/20 07:11 Hgb 14.0 gm/dl (11.8-15.2) 09/05/20 07:11 Hct 42.3 % (35.5-45.6) 09/05/20 07:11 MCV 88 fl (84-94) 09/05/20 07:11 MCH 29 pg (28-32) 09/05/20 07:11 MCHC 33 % (32-34) 09/05/20 07:11 RDW 14.8 % (13.2-15.2) 09/05/20 07:11 Plt Count 173 K/mm3 (140-440) 09/05/20 07:11 Lymph % (Auto) 10.8 % (13.4-35.0) L 09/05/20 07:11 [place] % (Auto) 5.8 % (0.0-7.3) 09/05/20 07:11 Eos % (Auto) 0.3 % (0.0-4.3) 09/05/20 07:11 Baso % (Auto) 0.5 % (0.0-1.8) 09/05/20 07:11 Lymph # (Auto) 1.5 K/mm3 (1.2-5.4) 09/05/20 07:11 [place] # (Auto) 0.8 K/mm3 (0.0-0.8) 09/05/20 07:11 Eos # (Auto) 0.0 K/mm3 (0.0-0.4) 09/05/20 07:11 Baso # (Auto) 0.1 K/mm3 (0.0-0.1) 09/05/20 07:11 Add Manual Diff Complete 08/17/20 05:06 Total Counted 100 08/17/20 05:06 Seg Neutrophils % 82.6 % (40.0-70.0) H 09/05/20 07:11 Seg Neuts % (Manual) 86.0 % (40.0-70.0) H 08/17/20 05:06 Lymphocytes % (Manual) 7.0 % (13.4-35.0) L 08/17/20 05:06 Monocytes % (Manual) 6.0 % (0.0-7.3) 08/17/20 05:06 Eosinophils % (Manual) 1.0 % (0.0-4.3) 08/17/20 05:06 Metamyelocytes % 2.0 % 08/15/20 05:16 Nucleated RBC % Not Reportable 08/17/20 05:06 Seg Neutrophils # 11.6 K/mm3 (1.8-7.7) H 09/05/20 07:11 Seg Neutrophils # Man 17.8 K/mm3 (1.8-7.7) H 08/17/20 05:06 Band Neutrophils # 0.0 K/mm3 08/17/20 05:06 Lymphocytes # (Manual) 1.4 K/mm3 (1.2-5.4) 08/17/20 05:06 Abs React Lymphs (Man) 0.0 K/mm3 08/17/20 05:06 Monocytes # (Manual) 1.2 K/mm3 (0.0-0.8) H 08/17/20 05:06 Eosinophils # (Manual) 0.2 K/mm3 (0.0-0.4) 08/17/20 05:06 Basophils # (Manual) 0.0 K/mm3 (0.0-0.1) 08/17/20 05:06 Metamyelocytes # 0.0 K/mm3 08/17/20 05:06 Myelocytes # 0.0 K/mm3 08/17/20 05:06 Promyelocytes # 0.0 K/mm3 08/17/20 05:06 Blast Cells # 0.0 K/mm3 08/17/20 05:06 WBC Morphology Not Reportable 08/17/20 05:06 Hypersegmented Neuts Not Reportable 08/17/20 05:06 Hyposegmented Neuts Not Reportable 08/17/20 05:06 Hypogranular Neuts Not Reportable 08/17/20 05:06 Smudge Cells Not Reportable 08/17/20 05:06 Toxic Granulation Not Reportable 08/17/20 05:06 Toxic Vacuolation Not Reportable 08/17/20 05:06 Dohle Bodies Not Reportable 08/17/20 05:06 Pelger-Huet Anomaly Not Reportable 08/17/20 05:06 Juan Luis Rods Not Reportable 08/17/20 05:06 Platelet Estimate Consistent w auto 08/17/20 05:06 Clumped Platelets Not Reportable 08/17/20 05:06 Plt Clumps, EDTA Not Reportable 08/17/20 05:06 Large Platelets Not Reportable 08/17/20 05:06 Giant Platelets Not Reportable 08/17/20 05:06 Platelet Satelliting Not Reportable 08/17/20 05:06 Plt Morphology Comment Not Reportable 08/17/20 05:06 RBC Morphology Not Reportable 08/17/20 05:06 Dimorphic RBCs Not Reportable 08/17/20 05:06 Polychromasia Not Reportable 08/17/20 05:06 Hypochromasia Not Reportable 08/17/20 05:06 Poikilocytosis Not Reportable 08/17/20 05:06 Anisocytosis Few 08/17/20 05:06 Microcytosis Not Reportable 08/17/20 05:06 Macrocytosis Not Reportable 08/17/20 05:06 Spherocytes Not Reportable 08/17/20 05:06 Pappenheimer Bodies Not Reportable 08/17/20 05:06 Sickle Cells Not Reportable 08/17/20 05:06 Target Cells Not Reportable 08/17/20 05:06 Tear Drop Cells Not Reportable 08/17/20 05:06 Ovalocytes Not Reportable 08/17/20 05:06 Helmet Cells Not Reportable 08/17/20 05:06 [place] [employer] Bodies Not Reportable 08/17/20 05:06 Jackson Rings Not Reportable 08/17/20 05:06 Kurt Cells Not Reportable 08/17/20 05:06 Bite Cells Not Reportable 08/17/20 05:06 Crenated Cell Not Reportable 08/17/20 05:06 Elliptocytes Not Reportable 08/17/20 05:06 Acanthocytes (Spur) Not Reportable 08/17/20 05:06 Rouleaux Not Reportable 08/17/20 05:06 Hemoglobin C Crystals Not Reportable 08/17/20 05:06 Schistocytes Not Reportable 08/17/20 05:06 Malaria parasites Not Reportable 08/17/20 05:06 Asif Bodies Not Reportable 08/17/20 05:06 Hem Pathologist Commnt No 08/17/20 05:06 PT 12.6 Sec. (12.2-14.9) 08/10/20 08:29 INR 0.96 (0.87-1.13) 08/10/20 08:29 D-Dimer 877.51 ng/mlDDU (0-234) H 09/06/20 10:43 ABG pH 7.313 pH Units (7.350-7.450) L 08/25/20 12:30 POC ABG pCO2 46.9 mmHg (32.0-48.0) 08/14/20 08:23 ABG pCO2 67.2 mm Hg 08/25/20 12:30 POC ABG pO2 50.0 mmHg (83-108) L 08/14/20 08:23 ABG pO2 76.2 mm Hg (80.0-90.0) L 08/25/20 12:30 POC ABG HCO3 31.4 08/14/20 08:23 ABG HCO3 33.3 mmol/L (20.0-26.0) H 08/25/20 12:30 ABG O2 Saturation 94.9 % (95.0-99.0) L 08/25/20 12:30 ABG O2 Content 17.5 (0.0-44) 08/25/20 12:30 POC ABG Base Excess 6.3 08/14/20 08:23 ABG Base Excess 5.0 mmol/L (-2.0-3.0) H 08/25/20 12:30 ABG Hemoglobin 13.4 gm/dl (14.0-18.0) L 08/25/20 12:30 ABG Oxyhemoglobin 84.0 (94-98) L 08/14/20 08:23 ABG Carboxyhemoglobin 1.5 % (0.0-5.0) 08/25/20 12:30 ABG Methemoglobin 0.5 % (0.0-1.5) 08/25/20 12:30 ABG Sodium 139.2 mmol/L (136.0-145.0) 08/14/20 08:23 ABG Potassium 4.5 mmol/L (3.40-4.50) 08/14/20 08:23 ABG Chloride 99.0 mmol/L (98-107) 08/14/20 08:23 ABG Glucose 141 mg/dL (65-95) H 08/14/20 08:23 VBG pH 7.303 (7.320-7.420) L 08/10/20 08:29 Oxyhemoglobin 93.0 % (95.0-99.0) L 08/25/20 12:30 Carboxyhemoglobin 0.9 (0.5-1.5) 08/14/20 08:23 FiO2 80 % 08/25/20 12:30 FiO2 % 100 08/14/20 08:23 Sodium 140 mmol/L (137-145) 09/05/20 07:11 Potassium 4.8 mmol/L (3.6-5.0) 09/05/20 07:11 Chloride 98.5 mmol/L (98-107) 09/05/20 07:11 Carbon Dioxide 36 mmol/L (22-30) H 09/05/20 07:11 Anion Gap 10 mmol/L 09/05/20 07:11 BUN 21 mg/dL (9-20) H 09/05/20 07:11 Creatinine 0.6 mg/dL (0.8-1.3) L 09/05/20 07:11 Estimated GFR > 60 ml/min 09/05/20 07:11 BUN/Creatinine Ratio 35 % 09/05/20 07:11 Glucose 123 mg/dL (75-100) H 09/05/20 07:11 POC Glucose 151 mg/dL (70-105) H 08/21/20 11:17 Hemoglobin A1c 6.1 % (4-6) H 08/11/20 05:39 Lactic Acid 0.80 mmol/L (0.7-2.0) 08/10/20 11:18 Calcium 9.3 mg/dL (8.4-10.2) 09/05/20 07:11 Magnesium 2.40 mg/dL (1.7-2.3) H 08/31/20 10:56 Ferritin 666.4 ng/mL (30.0-300.0) H 09/06/20 10:43 Total Bilirubin 0.50 mg/dL (0.1-1.2) 08/18/20 05:13 AST 50 units/L (5-40) H 08/18/20 05:13 ALT 50 units/L (7-56) 08/18/20 05:13 Alkaline Phosphatase 103 units/L (35-129) 08/18/20 05:13 Lactate Dehydrogenase 607 units/L (91-180) H 09/06/20 10:43 C-Reactive Protein 0.10 mg/dL (0.00-1.30) 09/06/20 10:43 NT-Pro-B Natriuret Pep 36.40 pg/mL (0-450) 08/12/20 06:29 Total Protein 6.9 g/dL (6.3-8.2) 08/18/20 05:13 Albumin 3.7 g/dL (3.9-5) L 08/18/20 05:13 Albumin/Globulin Ratio 1.1 % 08/18/20 05:13 Procalcitonin 0.08 ng/mL (<0.15) 08/21/20 13:39 TSH 1.830 mlU/mL (0.270-4.200) 08/17/20 05:06 Free T4 1.01 ng/dL (0.76-1.46) 08/17/20 05:06 Arterial Blood Glucose 141 mg/dL (65-95) H 08/14/20 08:23 Arterial Blood Ionized Calcium 4.8 mg/dL (4.6-5.3) 08/14/20 08:23 Urine Color Yellow (Yellow) 08/10/20 Unknown Urine Turbidity Cloudy (Clear) 08/10/20 Unknown Urine pH 5.0 (5.0-7.0) 08/10/20 Unknown Ur Specific [place] 1.025 (1.003-1.030) 08/10/20 Unknown Urine Protein 30 mg/dl mg/dL (Negative) 08/10/20 Unknown Urine Glucose (UA) 150 mg/dL (Negative) 08/10/20 Unknown Urine Ketones Negative mg/dL (Negative) 08/10/20 Unknown Urine Blood Negative (Negative) 08/10/20 Unknown Urine Nitrite Negative (Negative) 08/10/20 Unknown Urine Bilirubin Negative (Negative) 08/10/20 Unknown Urine Urobilinogen < 2.0 mg/dL (<2.0) 08/10/20 Unknown Ur Leukocyte Esterase Negative (Negative) 08/10/20 Unknown Urine WBC (Auto) 5.0 /HPF (0.0-6.0) 08/10/20 Unknown Urine RBC (Auto) 2.0 /HPF (0.0-6.0) 08/10/20 Unknown U Epithel Cells (Auto) 1.0 /HPF (0-13.0) 08/10/20 Unknown Urine Bacteria (Auto) 1+ /HPF (Negative) 08/10/20 Unknown Urine Mucus 3+ /HPF 08/10/20 Unknown Coronavirus (PCR) Positive (Negative) A 08/11/20 Unknown Gaytan/IV: Voiding Method Urinal Active Medications - Current Medications Current Medications: Generic Name Dose Route Start Last Admin Trade Name Freq PRN Reason Stop Dose Admin Acetaminophen 650 mg 08/10/20 23:48 08/31/20 00:34 Acetaminophen 325 Mg Tab PO 650 mg Q4H PRN Administration Pain MILD(1-3)/Fever >100.5/MARTINEZ Apixaban 5 mg 08/29/20 22:00 09/08/20 11:14 Apixaban 5 Mg Tab PO 5 mg Q12HR MELANIE Administration Protocol Artificial Tears 2 drops 08/16/20 13:44 Hypromellose 0.5% Ophth Soln 15 Ml OU Q4H PRN Dry Eye(s) Ascorbic Acid 500 mg 08/12/20 10:00 09/08/20 11:14 Ascorbic Acid 500 Mg Tab PO 500 mg BID MELANIE Administration Famotidine 20 mg 08/27/20 12:00 09/08/20 11:15 Famotidine 20 Mg Tab PO 20 mg BID MELANIE Administration Methylprednisolone Sodium Succinate 40 mg 08/31/20 10:00 09/08/20 15:47 Methylprednisolone Sod Succinate 40 Mg/1 Ml Inj IV 40 mg Q8HR MELANIE Administration Metoclopramide HCl 10 mg 08/10/20 23:48 Metoclopramide 10 Mg/2 Ml Inj IV Q6H PRN Nausea And Vomiting Morphine Sulfate 2 mg 08/10/20 23:48 08/25/20 10:20 Morphine 2 Mg/1 Ml Inj IV 2 mg Q4H PRN Administration Pain, Moderate (4-6) Ondansetron HCl 4 mg 08/10/20 23:48 Ondansetron 4 Mg/2 Ml Inj IV Q8H PRN Nausea And Vomiting Oxycodone/Acetaminophen 1 tab 08/10/20 23:48 08/25/20 21:08 Oxycodone /Acetaminophen 5-325mg Tab PO 1 tab Q6H PRN Administration Pain, Moderate (4-6) Sodium Chloride 10 ml 08/11/20 10:00 09/08/20 11:15 Sodium Chloride 0.9% 10 Ml Flush Syringe IV 10 ml BID MELANIE Administration Sodium Chloride 10 ml 08/10/20 23:48 08/12/20 21:04 Sodium Chloride 0.9% 10 Ml Flush Syringe IV 10 ml PRN PRN Administration LINE FLUSH Zinc Sulfate 220 mg 08/12/20 12:00 09/08/20 11:14 Zinc Sulfate 220 Mg Cap PO 220 mg QDAY MELANIE Administration Nutrition/Malnutrition Assess - Dietary Evaluation Nutrition/Malnutrition Findings: Nutrition Notes Start: 08/17/20 10:49 Freq: Status: Active Protocol: Document 09/08/20 13:30 CW (Rec: 09/08/20 13:38 CW [email or web address]) Nutrition Notes Initial or Follow up Reassessment Other Pertinent Diagnosis COVID-19 (+), pneu, RLE DVT, sinus bradycardia Current Diet Regular Labs/Tests No new labs Pertinent Medications solumedrol Height 5 ft 11 in Weight 131.7 kg [place] Body Weight (kg) 78.18 BMI 40.4 Weight Status Morbidly Obese Subjective/Other Information F/U for intakes and ONS. Pt eating 100% of meals. Skin remains intact Percent of energy/protein needs met: 100%/100% Burn Absent Trauma Absent Cultural/Ethnic/Scientology Belief Requests salads with chicken Current % PO Good (75-100%) Minimum of two criteria No #1 Nutrition Diagnosis Inadequate oral intake Diagnosis Progress(for reassessment Resolved documentation) Is patient on ventilator? No Is Patient Ambulatory and/or Out of Bed No REE-([facility]-confined to bed) 2766.156 Kcal/Kg value to use for calculation 16 Approximate Energy Requirements Using 2107 kcal/Kg Calculation Used for Recommendations Kcal/kg Additional Notes Pro needs 0.8-1g/kg adjBW: 90- 113g/day Fluid needs 1ml/kcal Nutrition Intervention Change Diet Order: Continue current diet as tolerated Add Supplement/Snack (indicate name/kcal Ensure High Protein QD /protein ) Provides kCal: 160 Provides Protein (gm) 16 Goal #1 Stable PO intakes Goal #2 PO intake of meals plus ONS to meet at least 75% energy and pro needs Anticipated Discharge Needs: Regular Diet Follow-Up By: 09/15/20 Additional Comments F/U for stable intakes
[2020-09-09] MEDS: methylPREDNISolone Sod Succinate 40 MG/1 ML INJ IV SCH ×3 (06:21→21:49)
--- NOTE | 2020-09-09 09:25 | Progress Note ---
Assessment and Plan Assessment and plan: Patient on BiPAP this morning --Acute hypoxic respiratory failure secondary to COVID-19 PNA Pt remains on high flow oxygen 40/100/93 intermittent 100% nonrebreather Patient unstable to go for CTA chest to evaluate the cause of persistent hypoxia pulmonary following, Home O2 evaluation at discharge --COVID-19 Pneumonia Continue antibiotics Continue steroids total 10 days s/p Remdesivir, s/p tocilizumab On HF NCO 2, titrate and wean as tolerated Decreased to 40 L/ 85 percent Fio2/97% O2 sats --Right lower extremity DVT on LE Doppler study LE Doppler LE Doppler shows RLE DVT. Echocardiogram shows no right heart strain. On Eliquis per protocol --Sinus bradycardia /resolved Likely from remdesivir Heart rate in 60s and 70s today TSH wnl --Morbid obesity; BMI 41.9 Diet and exercise advised Patient needs outpatient bariatric surgical/medical weight reduction consult when medically stable --Positive DVT ;-on Eliquis Continues to be on high flow oxygen, Wean as tolerated We will closely monitor the patient and adjust management as needed Client Success Manager recommendations noted and appreciated Plan of care reviewed with the patient and his nurse and the case management The high probability of a clinically significant, sudden or life threatening deterioration of the [pulmonary,Vascular,ID,CVS and hematology] system(s) required my full and direct attention, intervention and personal management. The aggregate critical care time was [34] minutes. This time is in addition to time spent performing reported procedures but includes the following: [x] Data Review and interpretation [x] Patient assessment and monitoring of vital signs [x] Documentation [x] Medication orders and management Brief history 30-year-old male with morbid obesity weighing about 310 pounds was admitted through emergency room with frontal headache for 3 days. Patient was noted to be hypoxic with shortness of breath and cough O2 sats room air were in the 80s, requiring high flow oxygen, BiPAP, patient was admitted to IMCU Patient was PUI, placed in isolation, gillespie PCR test was positive, evaluated by ID and pulmonary, medications optimized and patient was being managed per COVID-19 protocols and guidelines. Patient continues to depend on high flow oxygen and BiPAP. Today patient continues to be on very high flow oxygen of 40 L/85% FiO2/94 to 96% O2 sats Patient advised bariatric surgical consultation upon discharge for weight reduction program Work-up in the emergency room showed bilateral patchy opacities in the lungs and hypoxia-hence he was admitted for bilateral pneumonia and possible Covid pneumonia. No significant past medical history Daily Hospital course: 08/11. Patient seen examined at bedside this morning. Has no complaints. Febrile this a.m.-103 Fahrenheit. On Tylenol as needed. COVID-19 test ordered. Remains on steroids. ID consult if COVID-19 is positive. 08/12. His COVID-19 test is positive. He was started on remdesivir last night. Oxygen requirement increased overnight. Inflammatory markers increasing. Repeat chest xray shows worsening infiltrates. Ordered BNP. Lasix 40mg IV ordered. Increased dexamethasone to 6mg BID. Pulmonology consulted. Will place on continuous pulse oximetry. Incentive spirometer ordered. Advised prone positioning. 08/13. Not feeling better. Seen on BIPAP. Remains on steroids, remdesivir and ant ibiotics. Vitals stable. 08/14. Still maintaining sats even on BiPAP. Lasix 40 mg IV ordered. D-dimer this a.m. is more than 10,000. Lovenox increased to 150 mg twice daily. Ultrasound lower extremities Doppler showed a right DVT. Echocardiogram ordered to rule out right heart strain. Pending results, patient may need vascular surgery evaluation for possible thrombectomy. Continue on BiPAP and continue to monitor respiratory status closely. 08/15. Sats better this AM. Received toculizumab yesterday. Advised him to prone as much as possible. Echo shows normal EF with no right heart strain. I/Os reviewed. He is diuresing well. Renal function is stable. Will give additional lasix today. Pulmonology following 08/16. Remains on remdesivir. Still on BIPAP. Will give lasix 20mg IV. HR is low - likley effect of remdesivir. Will continue to monitor closely 08/17. Sats in the 90's this AM. Still on BIPAP. /; patient remains hypoxic requiring BiPAP and 100% nonrebreather intermittently 08/19; Continue supportive care, wean oxygen as tolerated. Encouraged PRONE positioning if able to tolerate. 08/20:Remains on BiPAP. continue lasix, still not proninig, encouraged to prone, FIO2 down to 90% with sat of 96%. Continue care, prognosis still guarded. 08/21: Patient down on high flow. Continue to encourage proning position. Still with guarded prognosis. Elevation in WBC noted to 20 this could be secondary to steroids I will continue to monitor. No fever noted at this time. Patient's respiratory status has stabilized on the high flow with no shallow breathing noted Discussed with the nurse at bedside 08/22; DC Lovenox therapeutic dose, start Eliquis per protocol to treat lower extremity DVT. 08/23; patient remains on high flow oxygen 40 L/100 FiO2/94% O2 sats, intermittent BiPAP 08/24; patient remains on high flow oxygen and BiPAP, consultants recommendations noted and appreciated 08/25; patient continues to be hypoxemic, on high flow oxygen 40L/ 100 FiO2/95 O2 sats and on intermittent BiPAP 08/26; patient continues to be on high flow oxygen, unable to wean follow pulmon michelle recommendations 08/27; patient remains on high flow oxygen 40 L/100% FiO2/95% O2 sats with inter mittent BiPAP treatment 08/28; patient remains on high flow oxygen, strongly advised to prone as vu erated, consults and recommendations noted and appreciated 08/29; closely monitor the patient and adjust management as needed, wean oxygen as tolerated Home oxygen evaluation, DC planning when medically stable 08/30; clinically no change, remains on high flow oxygen, wean as tolerated Consultants recommendations noted . 08/31; patient remains on high flow oxygen 40/100/93 09/01/20;patient remains on high flow oxygen 40/100/93 09/02/20; Same 09/03:Same 09/04:Some omproment, Sitting in Chair On 80 percent FIO2, 40 liters NC O 2 High flow 09/05: Patient feels slightly better Continues to be on high flow oxygen wean as tolerated Continue current management 09/06: Patient continues to require high flow oxygen at the settings of 40 L/85 FiO2/O2 sats 97% 09/07; oxygen requirement slightly improved today on 30 L/70% FiO2/100% O2 sats Encouraging prone position as tolerated 09/08; 30 L nasal cannula intermittent BiPAP, continue current management 09/09; mild improvement still remains on high flow nasal cannula O2 and BiPAP intermittent Wean as tolerated History Interval history: I have seen and examined the patient at the bedside\ Isolation precautions and PPE protocols strictly followed per COVID-19 guidelines Patient remains on high flow oxygen and BiPAP Mild improvement in oxygen requirements Vital signs noted Hospitalist Physical - Constitutional Vitals: Temp Pulse Resp BP Pulse Ox 98.8 F 68 14 142/81 99 09/09/20 04:03 09/09/20 09:00 09/09/20 09:00 09/09/20 09:00 09/09/20 09:00 General appearance: Present: mild distress, well-nourished, obese, other (1- nasal cannula oxygen) - EENT Eyes: Present: PERRL, EOM intact - Neck Neck: Present: supple, normal ROM - Respiratory Respiratory effort: normal Respiratory: bilateral: diminished, negative: rales, rhonchi, wheezing - Cardiovascular Rhythm: regular Heart Sounds: Present: S1 & S2 - Extremities Extremities: no ischemia, No edema - Abdominal General gastrointestinal: soft, non-tender, non-distended, normal bowel sounds - Integumentary Integumentary: Present: clear, warm - Psychiatric Psychiatric: appropriate mood/affect, cooperative - Neurologic Neurologic: CNII-XII intact, moves all extremities Results - Labs CBC & Chem 7: 09/05/20 07:11 09/05/20 07:11 Labs: Laboratory Last Values WBC 14.0 K/mm3 (4.5-11.0) H 09/05/20 07:11 RBC 4.79 M/mm3 (3.65-5.03) 09/05/20 07:11 Hgb 14.0 gm/dl (11.8-15.2) 09/05/20 07:11 Hct 42.3 % (35.5-45.6) 09/05/20 07:11 MCV 88 fl (84-94) 09/05/20 07:11 MCH 29 pg (28-32) 09/05/20 07:11 MCHC 33 % (32-34) 09/05/20 07:11 RDW 14.8 % (13.2-15.2) 09/05/20 07:11 Plt Count 173 K/mm3 (140-440) 09/05/20 07:11 Lymph % (Auto) 10.8 % (13.4-35.0) L 09/05/20 07:11 [place] % (Auto) 5.8 % (0.0-7.3) 09/05/20 07:11 Eos % (Auto) 0.3 % (0.0-4.3) 09/05/20 07:11 Baso % (Auto) 0.5 % (0.0-1.8) 09/05/20 07:11 Lymph # (Auto) 1.5 K/mm3 (1.2-5.4) 09/05/20 07:11 [place] # (Auto) 0.8 K/mm3 (0.0-0.8) 09/05/20 07:11 Eos # (Auto) 0.0 K/mm3 (0.0-0.4) 09/05/20 07:11 Baso # (Auto) 0.1 K/mm3 (0.0-0.1) 09/05/20 07:11 Add Manual Diff Complete 08/17/20 05:06 Total Counted 100 08/17/20 05:06 Seg Neutrophils % 82.6 % (40.0-70.0) H 09/05/20 07:11 Seg Neuts % (Manual) 86.0 % (40.0-70.0) H 08/17/20 05:06 Lymphocytes % (Manual) 7.0 % (13.4-35.0) L 08/17/20 05:06 Monocytes % (Manual) 6.0 % (0.0-7.3) 08/17/20 05:06 Eosinophils % (Manual) 1.0 % (0.0-4.3) 08/17/20 05:06 Metamyelocytes % 2.0 % 08/15/20 05:16 Nucleated RBC % Not Reportable 08/17/20 05:06 Seg Neutrophils # 11.6 K/mm3 (1.8-7.7) H 09/05/20 07:11 Seg Neutrophils # Man 17.8 K/mm3 (1.8-7.7) H 08/17/20 05:06 Band Neutrophils # 0.0 K/mm3 08/17/20 05:06 Lymphocytes # (Manual) 1.4 K/mm3 (1.2-5.4) 08/17/20 05:06 Abs React Lymphs (Man) 0.0 K/mm3 08/17/20 05:06 Monocytes # (Manual) 1.2 K/mm3 (0.0-0.8) H 08/17/20 05:06 Eosinophils # (Manual) 0.2 K/mm3 (0.0-0.4) 08/17/20 05:06 Basophils # (Manual) 0.0 K/mm3 (0.0-0.1) 08/17/20 05:06 Metamyelocytes # 0.0 K/mm3 08/17/20 05:06 Myelocytes # 0.0 K/mm3 08/17/20 05:06 Promyelocytes # 0.0 K/mm3 08/17/20 05:06 Blast Cells # 0.0 K/mm3 08/17/20 05:06 WBC Morphology Not Reportable 08/17/20 05:06 Hypersegmented Neuts Not Reportable 08/17/20 05:06 Hyposegmented Neuts Not Reportable 08/17/20 05:06 Hypogranular Neuts Not Reportable 08/17/20 05:06 Smudge Cells Not Reportable 08/17/20 05:06 Toxic Granulation Not Reportable 08/17/20 05:06 Toxic Vacuolation Not Reportable 08/17/20 05:06 Dohle Bodies Not Reportable 08/17/20 05:06 Pelger-Huet Anomaly Not Reportable 08/17/20 05:06 Juan Luis Rods Not Reportable 08/17/20 05:06 Platelet Estimate Consistent w auto 08/17/20 05:06 Clumped Platelets Not Reportable 08/17/20 05:06 Plt Clumps, EDTA Not Reportable 08/17/20 05:06 Large Platelets Not Reportable 08/17/20 05:06 Giant Platelets Not Reportable 08/17/20 05:06 Platelet Satelliting Not Reportable 08/17/20 05:06 Plt Morphology Comment Not Reportable 08/17/20 05:06 RBC Morphology Not Reportable 08/17/20 05:06 Dimorphic RBCs Not Reportable 08/17/20 05:06 Polychromasia Not Reportable 08/17/20 05:06 Hypochromasia Not Reportable 08/17/20 05:06 Poikilocytosis Not Reportable 08/17/20 05:06 Anisocytosis Few 08/17/20 05:06 Microcytosis Not Reportable 08/17/20 05:06 Macrocytosis Not Reportable 08/17/20 05:06 Spherocytes Not Reportable 08/17/20 05:06 Pappenheimer Bodies Not Reportable 08/17/20 05:06 Sickle Cells Not Reportable 08/17/20 05:06 Target Cells Not Reportable 08/17/20 05:06 Tear Drop Cells Not Reportable 08/17/20 05:06 Ovalocytes Not Reportable 08/17/20 05:06 Helmet Cells Not Reportable 08/17/20 05:06 Patterson-Lamy Bodies Not Reportable 08/17/20 05:06 Lissie Rings Not Reportable 08/17/20 05:06 [place] Cells Not Reportable 08/17/20 05:06 Bite Cells Not Reportable 08/17/20 05:06 Crenated Cell Not Reportable 08/17/20 05:06 Elliptocytes Not Reportable 08/17/20 05:06 Acanthocytes (Spur) Not Reportable 08/17/20 05:06 Rouleaux Not Reportable 08/17/20 05:06 Hemoglobin C Crystals Not Reportable 08/17/20 05:06 Schistocytes Not Reportable 08/17/20 05:06 Malaria parasites Not Reportable 08/17/20 05:06 Asif Bodies Not Reportable 08/17/20 05:06 Hem Pathologist Commnt No 08/17/20 05:06 PT 12.6 Sec. (12.2-14.9) 08/10/20 08:29 INR 0.96 (0.87-1.13) 08/10/20 08:29 D-Dimer 877.51 ng/mlDDU (0-234) H 09/06/20 10:43 ABG pH 7.313 pH Units (7.350-7.450) L 08/25/20 12:30 POC ABG pCO2 46.9 mmHg (32.0-48.0) 08/14/20 08:23 ABG pCO2 67.2 mm Hg 08/25/20 12:30 POC ABG pO2 50.0 mmHg (83-108) L 08/14/20 08:23 ABG pO2 76.2 mm Hg (80.0-90.0) L 08/25/20 12:30 POC ABG HCO3 31.4 08/14/20 08:23 ABG HCO3 33.3 mmol/L (20.0-26.0) H 08/25/20 12:30 ABG O2 Saturation 94.9 % (95.0-99.0) L 08/25/20 12:30 ABG O2 Content 17.5 (0.0-44) 08/25/20 12:30 POC ABG Base Excess 6.3 08/14/20 08:23 ABG Base Excess 5.0 mmol/L (-2.0-3.0) H 08/25/20 12:30 ABG Hemoglobin 13.4 gm/dl (14.0-18.0) L 08/25/20 12:30 ABG Oxyhemoglobin 84.0 (94-98) L 08/14/20 08:23 ABG Carboxyhemoglobin 1.5 % (0.0-5.0) 08/25/20 12:30 ABG Methemoglobin 0.5 % (0.0-1.5) 08/25/20 12:30 ABG Sodium 139.2 mmol/L (136.0-145.0) 08/14/20 08:23 ABG Potassium 4.5 mmol/L (3.40-4.50) 08/14/20 08:23 ABG Chloride 99.0 mmol/L (98-107) 08/14/20 08:23 ABG Glucose 141 mg/dL (65-95) H 08/14/20 08:23 VBG pH 7.303 (7.320-7.420) L 08/10/20 08:29 Oxyhemoglobin 93.0 % (95.0-99.0) L 08/25/20 12:30 Carboxyhemoglobin 0.9 (0.5-1.5) 08/14/20 08:23 FiO2 80 % 08/25/20 12:30 FiO2 % 100 08/14/20 08:23 Sodium 140 mmol/L (137-145) 09/05/20 07:11 Potassium 4.8 mmol/L (3.6-5.0) 09/05/20 07:11 Chloride 98.5 mmol/L (98-107) 09/05/20 07:11 Carbon Dioxide 36 mmol/L (22-30) H 09/05/20 07:11 Anion Gap 10 mmol/L 09/05/20 07:11 BUN 21 mg/dL (9-20) H 09/05/20 07:11 Creatinine 0.6 mg/dL (0.8-1.3) L 09/05/20 07:11 Estimated GFR > 60 ml/min 09/05/20 07:11 BUN/Creatinine Ratio 35 % 09/05/20 07:11 Glucose 123 mg/dL (75-100) H 09/05/20 07:11 POC Glucose 151 mg/dL (70-105) H 08/21/20 11:17 Hemoglobin A1c 6.1 % (4-6) H 08/11/20 05:39 Lactic Acid 0.80 mmol/L (0.7-2.0) 08/10/20 11:18 Calcium 9.3 mg/dL (8.4-10.2) 09/05/20 07:11 Magnesium 2.40 mg/dL (1.7-2.3) H 08/31/20 10:56 Ferritin 666.4 ng/mL (30.0-300.0) H 09/06/20 10:43 Total Bilirubin 0.50 mg/dL (0.1-1.2) 08/18/20 05:13 AST 50 units/L (5-40) H 08/18/20 05:13 ALT 50 units/L (7-56) 08/18/20 05:13 Alkaline Phosphatase 103 units/L (35-129) 08/18/20 05:13 Lactate Dehydrogenase 607 units/L (91-180) H 09/06/20 10:43 C-Reactive Protein 0.10 mg/dL (0.00-1.30) 09/06/20 10:43 NT-Pro-B Natriuret Pep 36.40 pg/mL (0-450) 08/12/20 06:29 Total Protein 6.9 g/dL (6.3-8.2) 08/18/20 05:13 Albumin 3.7 g/dL (3.9-5) L 08/18/20 05:13 Albumin/Globulin Ratio 1.1 % 08/18/20 05:13 Procalcitonin 0.08 ng/mL (<0.15) 08/21/20 13:39 TSH 1.830 mlU/mL (0.270-4.200) 08/17/20 05:06 Free T4 1.01 ng/dL (0.76-1.46) 08/17/20 05:06 Arterial Blood Glucose 141 mg/dL (65-95) H 08/14/20 08:23 Arterial Blood Ionized Calcium 4.8 mg/dL (4.6-5.3) 08/14/20 08:23 Urine Color Yellow (Yellow) 08/10/20 Unknown Urine Turbidity Cloudy (Clear) 08/10/20 Unknown Urine pH 5.0 (5.0-7.0) 08/10/20 Unknown Ur Specific [place] 1.025 (1.003-1.030) 08/10/20 Unknown Urine Protein 30 mg/dl mg/dL (Negative) 08/10/20 Unknown Urine Glucose (UA) 150 mg/dL (Negative) 08/10/20 Unknown Urine Ketones Negative mg/dL (Negative) 08/10/20 Unknown Urine Blood Negative (Negative) 08/10/20 Unknown Urine Nitrite Negative (Negative) 08/10/20 Unknown Urine Bilirubin Negative (Negative) 08/10/20 Unknown Urine Urobilinogen < 2.0 mg/dL (<2.0) 08/10/20 Unknown Ur Leukocyte Esterase Negative (Negative) 08/10/20 Unknown Urine WBC (Auto) 5.0 /HPF (0.0-6.0) 08/10/20 Unknown Urine RBC (Auto) 2.0 /HPF (0.0-6.0) 08/10/20 Unknown U Epithel Cells (Auto) 1.0 /HPF (0-13.0) 08/10/20 Unknown Urine Bacteria (Auto) 1+ /HPF (Negative) 08/10/20 Unknown Urine Mucus 3+ /HPF 08/10/20 Unknown Coronavirus (PCR) Positive (Negative) A 08/11/20 Unknown Gaytan/IV: Voiding Method Urinal Active Medications - Current Medications Current Medications: Generic Name Dose Route Start Last Admin Trade Name Freq PRN Reason Stop Dose Admin Acetaminophen 650 mg 08/10/20 23:48 08/31/20 00:34 Acetaminophen 325 Mg Tab PO 650 mg Q4H PRN Administration Pain MILD(1-3)/Fever >100.5/MARTINEZ Apixaban 5 mg 08/29/20 22:00 09/08/20 21:44 Apixaban 5 Mg Tab PO 5 mg Q12HR MELANIE Administration Protocol Artificial Tears 2 drops 08/16/20 13:44 Hypromellose 0.5% Ophth Soln 15 Ml OU Q4H PRN Dry Eye(s) Ascorbic Acid 500 mg 08/12/20 10:00 09/08/20 21:44 Ascorbic Acid 500 Mg Tab PO 500 mg BID MELANIE Administration Famotidine 20 mg 08/27/20 12:00 09/08/20 21:44 Famotidine 20 Mg Tab PO 20 mg BID MELANIE Administration Methylprednisolone Sodium Succinate 40 mg 08/31/20 10:00 09/09/20 06:21 Methylprednisolone Sod Succinate 40 Mg/1 Ml Inj IV 40 mg Q8HR MELANIE Administration Metoclopramide HCl 10 mg 08/10/20 23:48 Metoclopramide 10 Mg/2 Ml Inj IV Q6H PRN Nausea And Vomiting Morphine Sulfate 2 mg 08/10/20 23:48 08/25/20 10:20 Morphine 2 Mg/1 Ml Inj IV 2 mg Q4H PRN Administration Pain, Moderate (4-6) Ondansetron HCl 4 mg 08/10/20 23:48 Ondansetron 4 Mg/2 Ml Inj IV Q8H PRN Nausea And Vomiting Oxycodone/Acetaminophen 1 tab 08/10/20 23:48 08/25/20 21:08 Oxycodone /Acetaminophen 5-325mg Tab PO 1 tab Q6H PRN Administration Pain, Moderate (4-6) Sodium Chloride 10 ml 08/11/20 10:00 09/08/20 21:44 Sodium Chloride 0.9% 10 Ml Flush Syringe IV 10 ml BID MELANIE Administration Sodium Chloride 10 ml 08/10/20 23:48 08/12/20 21:04 Sodium Chloride 0.9% 10 Ml Flush Syringe IV 10 ml PRN PRN Administration LINE FLUSH Zinc Sulfate 220 mg 08/12/20 12:00 09/08/20 11:14 Zinc Sulfate 220 Mg Cap PO 220 mg QDAY MELANIE Administration Nutrition/Malnutrition Assess - Dietary Evaluation Nutrition/Malnutrition Findings: Nutrition Notes Start: 08/17/20 10:49 Freq: Status: Active Protocol: Document 09/08/20 13:30 CW (Rec: 09/08/20 13:38 CW [id number]) Nutrition Notes Initial or Follow up Reassessment Other Pertinent Diagnosis COVID-19 (+), pneu, RLE DVT, sinus bradycardia Current Diet Regular Labs/Tests No new labs Pertinent Medications solumedrol Height 5 ft 11 in Weight 131.7 kg [place] Body Weight (kg) 78.18 BMI 40.4 Weight Status Morbidly Obese Subjective/Other Information F/U for intakes and ONS. Pt eating 100% of meals. Skin remains intact Percent of energy/protein needs met: 100%/100% Burn Absent Trauma Absent Cultural/Ethnic/[place] Belief Requests salads with chicken Current % PO Good (75-100%) Minimum of two criteria No #1 Nutrition Diagnosis Inadequate oral intake Diagnosis Progress(for reassessment Resolved documentation) Is patient on ventilator? No Is Patient Ambulatory and/or Out of Bed No REE-([facility]-confined to bed) 2766.156 Kcal/Kg value to use for calculation 16 Approximate Energy Requirements Using 2107 kcal/Kg Calculation Used for Recommendations Kcal/kg Additional Notes Pro needs 0.8-1g/kg adjBW: 90- 113g/day Fluid needs 1ml/kcal Nutrition Intervention Change Diet Order: Continue current diet as tolerated Add Supplement/Snack (indicate name/kcal Ensure High Protein QD /protein ) Provides kCal: 160 Provides Protein (gm) 16 Goal #1 Stable PO intakes Goal #2 PO intake of meals plus ONS to meet at least 75% energy and pro needs Anticipated Discharge Needs: Regular Diet Follow-Up By: 09/15/20 Additional Comments F/U for stable intakes
[2020-09-09] MEDS: FAMOTIDINE 20 MG TAB PO SCH ×2 (09:57→21:49)
[2020-09-09] MEDS: ZINC SULFATE 220 MG CAP PO SCH (09:57)
[2020-09-09] MEDS: APIXABAN 5 MG TAB PO SCH ×2 (09:57→21:49)
[2020-09-09] MEDS: ASCORBIC ACID 500 MG TAB PO SCH ×2 (09:57→21:49)
[2020-09-10] MEDS: methylPREDNISolone Sod Succinate 40 MG/1 ML INJ IV SCH ×3 (06:28→21:42)
[2020-09-10 09:06] LABS: Blood Urea Nitrogen 17 mg/dL (9-20); Calcium 9.2 mg/dL (8.4-10.2); Hemolysis Index 5
[2020-09-10 09:07] LABS: BUN/Creatinine Ratio 24
--- NOTE | 2020-09-10 09:40 | Progress Note ---
Assessment and Plan Assessment and plan: Patient remains on BiPAP therapy this morning --Acute hypoxic respiratory failure secondary to COVID-19 PNA Pt remains on high flow oxygen 40/100/93 intermittent 100% nonrebreather Patient unstable to go for CTA chest to evaluate the cause of persistent hypoxia pulmonary following, Home O2 evaluation at discharge --COVID-19 Pneumonia Continue antibiotics Continue steroids total 10 days s/p Remdesivir, s/p tocilizumab On HF NCO 2, titrate and wean as tolerated Decreased to 40 L/ 85 percent Fio2/97% O2 sats --Right lower extremity DVT on LE Doppler study LE Doppler LE Doppler shows RLE DVT. Echocardiogram shows no right heart strain. On Eliquis per protocol --Sinus bradycardia /resolved Likely from remdesivir Heart rate in 60s and 70s today TSH wnl --Morbid obesity; BMI 41.9 Diet and exercise advised Patient needs outpatient bariatric surgical/medical weight reduction consult when medically stable --Positive DVT ;-on Eliquis Continues to be on high flow oxygen, Wean as tolerated We will closely monitor the patient and adjust management as needed Maintenance Foreman recommendations noted and appreciated Plan of care reviewed with the patient and his nurse and the case management The high probability of a clinically significant, sudden or life threatening deterioration of the [pulmonary,Vascular,ID,CVS and hematology] system(s) required my full and direct attention, intervention and personal management. The aggregate critical care time was [35] minutes. This time is in addition to time spent performing reported procedures but includes the following: [x] Data Review and interpretation [x] Patient assessment and monitoring of vital signs [x] Documentation [x] Medication orders and management Brief history 30-year-old male with morbid obesity weighing about 310 pounds was admitted through emergency room with frontal headache for 3 days. Patient was noted to be hypoxic with shortness of breath and cough O2 sats room air were in the 80s, requiring high flow oxygen, BiPAP, patient was admitted to IMCU Patient was PUI, placed in isolation, gillespie PCR test was positive, evaluated by ID and pulmonary, medications optimized and patient was being managed per COVID-19 protocols and guidelines. Patient continues to depend on high flow o xygen and BiPAP. Today patient continues to be on very high flow oxygen of 40 L/85% FiO2/94 to 96% O2 sats Patient advised bariatric surgical consultation upon discharge for weight reduction program Work-up in the emergency room showed bilateral patchy opacities in the lungs and hypoxia-hence he was admitted for bilateral pneumonia and possible Covid pneumonia. No significant past medical history Daily Hospital course: 08/11. Patient seen examined at bedside this morning. Has no complaints. Febrile this a.m.-103 Fahrenheit. On Tylenol as needed. COVID-19 test ordered. Remains on steroids. ID consult if COVID-19 is positive. 08/12. His COVID-19 test is positive. He was started on remdesivir last night. Oxygen requirement increased overnight. Inflammatory markers increasing. Repeat chest xray shows worsening infiltrates. Ordered BNP. Lasix 40mg IV ordered. Increased dexamethasone to 6mg BID. Pulmonology consulted. Will place on continuous pulse oximetry. Incentive spirometer ordered. Advised prone positioning. 08/13. Not feeling better. Seen on BIPAP. Remains on steroids, remdesivir and antibiotics. Vitals stable. 08/14. Still maintaining sats even on BiPAP. Lasix 40 mg IV ordered. D-dimer this a.m. is more than 10,000. Lovenox increased to 150 mg twice daily. Ult rasound lower extremities Doppler showed a right DVT. Echocardiogram ordered to rule out right heart strain. Pending results, patient may need vascular surgery evaluation for possible thrombectomy. Continue on BiPAP and continue to monitor respiratory status closely. 08/15. Sats better this AM. Received toculizumab yesterday. Advised him to prone as much as possible. Echo shows normal EF with no right heart strain. I/Os reviewed. He is diuresing well. Renal function is stable. Will give additional lasix today. Pulmonology following 08/16. Remains on remdesivir. Still on BIPAP. Will give lasix 20mg IV. HR is low - likley effect of remdesivir. Will continue to monitor closely 08/17. Sats in the 90's this AM. Still on BIPAP. 08/18; patient remains hypoxic requiring BiPAP and 100% nonrebreather intermittently 08/19; Continue supportive care, wean oxygen as tolerated. Encouraged PRONE positi oning if able to tolerate. 08/20:Remains on BiPAP. continue lasix, still not proninig, encouraged to prone, FIO2 down to 90% with sat of 96%. Continue care, prognosis still guarded. 08/21: Patient down on high flow. Continue to encourage proning position. Still with guarded prognosis. Elevation in WBC noted to 20 this could be secondary to steroids I will continue to monitor. No fever noted at this time. Patient's respiratory status has stabilized on the high flow with no shallow breathing noted Discussed with the nurse at bedside 08/22; DC Lovenox therapeutic dose, start Eliquis per protocol to treat lower extremity DVT. 08/23; patient remains on high flow oxygen 40 L/100 FiO2/94% O2 sats, intermittent BiPAP 08/24; patient remains on high flow oxygen and BiPAP, consultants recommendations noted and appreciated 08/25; patient continues to be hypoxemic, on high flow oxygen 40L/ 100 FiO2/95 O2 sats and on intermittent BiPAP 08/26; patient continues to be on high flow oxygen, unable to wean follow pulmonary recommendations 08/27; patient remains on high flow oxygen 40 L/100% FiO2/95% O2 sats with intermittent BiPAP treatment 08/28; patient remains on high flow oxygen, strongly advised to prone as tolerated, consults and recommendations noted and appreciated 08/29; closely monitor the patient and adjust management as needed, wean oxygen as tolerated Home oxygen evaluation, DC planning when medically stable 08/30; clinically no change, remains on high flow oxygen, wean as tolerated Consultants recommendations noted . 08/31; patient remains on high flow oxygen 40/100/93 09/01/20;patient remains on high flow oxygen 40/100/93 09/02/20; Same 09/03:Same 09/04:Some omproment, Sitting in Chair On 80 percent FIO2, 40 liters NC O 2 High flow 09/05: Patient feels slightly better Continues to be on high flow oxygen wean as tolerated Continue current management 09/06: Patient continues to require high flow oxygen at the settings of 40 L/85 FiO2/O2 sats 97% 09/07; oxygen requirement slightly improved today on 30 L/70% FiO2/100% O2 sats Encouraging prone position as tolerated 09/08; 30 L nasal cannula intermittent BiPAP, continue current management 09/09; mild improvement still remains on high flow nasal cannula O2 and BiPAP intermittent Wean as tolerated 09/10; patient on continuous BiPAP, feels slightly better DC planning per case management when stable History Interval history: I have seen and examined the patient at the bedside Patient's chart and medications reviewed Patient remains on BiPAP, feels slightly better Cheerful, wants to go home Vital signs noted Hospitalist Physical - Constitutional Vitals: Temp Pulse Resp BP Pulse Ox 98.5 F 56 L 11 L 160/83 97 09/10/20 08:00 09/10/20 07:00 09/10/20 07:00 09/10/20 07:00 09/10/20 07:00 General appearance: Present: no acute distress, well-nourished, obese, other (1- nasal cannula oxygen) - EENT Eyes: Present: PERRL, EOM intact - Neck Neck: Present: supple, normal ROM - Respiratory Respiratory effort: normal Respiratory: bilateral: diminished, rhonchi, negative: rales, wheezing - Cardiovascular Rhythm: regular Heart Sounds: Present: S1 & S2 - Extremities Extremities: no ischemia, No edema - Abdominal General gastrointestinal: soft, non-tender, non-distended, normal bowel sounds - Integumentary Integumentary: Present: clear, warm - Psychiatric Psychiatric: appropriate mood/affect, cooperative - Neurologic Neurologic: moves all extremities Results - Labs CBC & Chem 7: 09/05/20 07:11 09/10/20 08:01 Labs: Laboratory Last Values WBC 14.0 K/mm3 (4.5-11.0) H 09/05/20 07:11 RBC 4.79 M/mm3 (3.65-5.03) 09/05/20 07:11 Hgb 14.0 gm/dl (11.8-15.2) 09/05/20 07:11 Hct 42.3 % (35.5-45.6) 09/05/20 07:11 MCV 88 fl (84-94) 09/05/20 07:11 MCH 29 pg (28-32) 09/05/20 07:11 MCHC 33 % (32-34) 09/05/20 07:11 RDW 14.8 % (13.2-15.2) 09/05/20 07:11 Plt Count 173 K/mm3 (140-440) 09/05/20 07:11 Lymph % (Auto) 10.8 % (13.4-35.0) L 09/05/20 07:11 [place] % (Auto) 5.8 % (0.0-7.3) 09/05/20 07:11 Eos % (Auto) 0.3 % (0.0-4.3) 09/05/20 07:11 Baso % (Auto) 0.5 % (0.0-1.8) 09/05/20 07:11 Lymph # (Auto) 1.5 K/mm3 (1.2-5.4) 09/05/20 07:11 [place] # (Auto) 0.8 K/mm3 (0.0-0.8) 09/05/20 07:11 Eos # (Auto) 0.0 K/mm3 (0.0-0.4) 09/05/20 07:11 Baso # (Auto) 0.1 K/mm3 (0.0-0.1) 09/05/20 07:11 Add Manual Diff Complete 08/17/20 05:06 Total Counted 100 08/17/20 05:06 Seg Neutrophils % 82.6 % (40.0-70.0) H 09/05/20 07:11 Seg Neuts % (Manual) 86.0 % (40.0-70.0) H 08/17/20 05:06 Lymphocytes % (Manual) 7.0 % (13.4-35.0) L 08/17/20 05:06 Monocytes % (Manual) 6.0 % (0.0-7.3) 08/17/20 05:06 Eosinophils % (Manual) 1.0 % (0.0-4.3) 08/17/20 05:06 Metamyelocytes % 2.0 % 08/15/20 05:16 Nucleated RBC % Not Reportable 08/17/20 05:06 Seg Neutrophils # 11.6 K/mm3 (1.8-7.7) H 09/05/20 07:11 Seg Neutrophils # Man 17.8 K/mm3 (1.8-7.7) H 08/17/20 05:06 Band Neutrophils # 0.0 K/mm3 08/17/20 05:06 Lymphocytes # (Manual) 1.4 K/mm3 (1.2-5.4) 08/17/20 05:06 Abs React Lymphs (Man) 0.0 K/mm3 08/17/20 05:06 Monocytes # (Manual) 1.2 K/mm3 (0.0-0.8) H 08/17/20 05:06 Eosinophils # (Manual) 0.2 K/mm3 (0.0-0.4) 08/17/20 05:06 Basophils # (Manual) 0.0 K/mm3 (0.0-0.1) 08/17/20 05:06 Metamyelocytes # 0.0 K/mm3 08/17/20 05:06 Myelocytes # 0.0 K/mm3 08/17/20 05:06 Promyelocytes # 0.0 K/mm3 08/17/20 05:06 Blast Cells # 0.0 K/mm3 08/17/20 05:06 WBC Morphology Not Reportable 08/17/20 05:06 Hypersegmented Neuts Not Reportable 08/17/20 05:06 Hyposegmented Neuts Not Reportable 08/17/20 05:06 Hypogranular Neuts Not Reportable 08/17/20 05:06 Smudge Cells Not Reportable 08/17/20 05:06 Toxic Granulation Not Reportable 08/17/20 05:06 Toxic Vacuolation Not Reportable 08/17/20 05:06 Dohle Bodies Not Reportable 08/17/20 05:06 Pelger-Huet Anomaly Not Reportable 08/17/20 05:06 Juan Luis Rods Not Reportable 08/17/20 05:06 Platelet Estimate Consistent w auto 08/17/20 05:06 Clumped Platelets Not Reportable 08/17/20 05:06 Plt Clumps, EDTA Not Reportable 08/17/20 05:06 Large Platelets Not Reportable 08/17/20 05:06 Giant Platelets Not Reportable 08/17/20 05:06 Platelet Satelliting Not Reportable 08/17/20 05:06 Plt Morphology Comment Not Reportable 08/17/20 05:06 RBC Morphology Not Reportable 08/17/20 05:06 Dimorphic RBCs Not Reportable 08/17/20 05:06 Polychromasia Not Reportable 08/17/20 05:06 Hypochromasia Not Reportable 08/17/20 05:06 Poikilocytosis Not Reportable 08/17/20 05:06 Anisocytosis Few 08/17/20 05:06 Microcytosis Not Reportable 08/17/20 05:06 Macrocytosis Not Reportable 08/17/20 05:06 Spherocytes Not Reportable 08/17/20 05:06 Pappenheimer Bodies Not Reportable 08/17/20 05:06 Sickle Cells Not Reportable 08/17/20 05:06 Target Cells Not Reportable 08/17/20 05:06 Tear Drop Cells Not Reportable 08/17/20 05:06 Ovalocytes Not Reportable 08/17/20 05:06 Helmet Cells Not Reportable 08/17/20 05:06 [place] Bodies Not Reportable 08/17/20 05:06 Taylor Rings Not Reportable 08/17/20 05:06 [place] Cells Not Reportable 08/17/20 05:06 Bite Cells Not Reportable 08/17/20 05:06 Crenated Cell Not Reportable 08/17/20 05:06 Elliptocytes Not Reportable 08/17/20 05:06 Acanthocytes (Spur) Not Reportable 08/17/20 05:06 Rouleaux Not Reportable 08/17/20 05:06 Hemoglobin C Crystals Not Reportable 08/17/20 05:06 Schistocytes Not Reportable 08/17/20 05:06 Malaria parasites Not Reportable 08/17/20 05:06 Asif Bodies Not Reportable 08/17/20 05:06 Hem Pathologist Commnt No 08/17/20 05:06 PT 12.6 Sec. (12.2-14.9) 08/10/20 08:29 INR 0.96 (0.87-1.13) 08/10/20 08:29 D-Dimer 877.51 ng/mlDDU (0-234) H 09/06/20 10:43 ABG pH 7.313 pH Units (7.350-7.450) L 08/25/20 12:30 POC ABG pCO2 46.9 mmHg (32.0-48.0) 08/14/20 08:23 ABG pCO2 67.2 mm Hg 08/25/20 12:30 POC ABG pO2 50.0 mmHg (83-108) L 08/14/20 08:23 ABG pO2 76.2 mm Hg (80.0-90.0) L 08/25/20 12:30 POC ABG HCO3 31.4 08/14/20 08:23 ABG HCO3 33.3 mmol/L (20.0-26.0) H 08/25/20 12:30 ABG O2 Saturation 94.9 % (95.0-99.0) L 08/25/20 12:30 ABG O2 Content 17.5 (0.0-44) 08/25/20 12:30 POC ABG Base Excess 6.3 08/14/20 08:23 ABG Base Excess 5.0 mmol/L (-2.0-3.0) H 08/25/20 12:30 ABG Hemoglobin 13.4 gm/dl (14.0-18.0) L 08/25/20 12:30 ABG Oxyhemoglobin 84.0 (94-98) L 08/14/20 08:23 ABG Carboxyhemoglobin 1.5 % (0.0-5.0) 08/25/20 12:30 ABG Methemoglobin 0.5 % (0.0-1.5) 08/25/20 12:30 ABG Sodium 139.2 mmol/L (136.0-145.0) 08/14/20 08:23 ABG Potassium 4.5 mmol/L (3.40-4.50) 08/14/20 08:23 ABG Chloride 99.0 mmol/L (98-107) 08/14/20 08:23 ABG Glucose 141 mg/dL (65-95) H 08/14/20 08:23 VBG pH 7.303 (7.320-7.420) L 08/10/20 08:29 Oxyhemoglobin 93.0 % (95.0-99.0) L 08/25/20 12:30 Carboxyhemoglobin 0.9 (0.5-1.5) 08/14/20 08:23 FiO2 80 % 08/25/20 12:30 FiO2 % 100 08/14/20 08:23 Sodium 137 mmol/L (137-145) 09/10/20 08:01 Potassium 4.4 mmol/L (3.6-5.0) 09/10/20 08:01 Chloride 98.6 mmol/L (98-107) 09/10/20 08:01 Carbon Dioxide 32 mmol/L (22-30) H 09/10/20 08:01 Anion Gap 11 mmol/L 09/10/20 08:01 BUN 17 mg/dL (9-20) 09/10/20 08:01 Creatinine 0.7 mg/dL (0.8-1.3) L 09/10/20 08:01 Estimated GFR > 60 ml/min 09/10/20 08:01 BUN/Creatinine Ratio 24 % 09/10/20 08:01 Glucose 140 mg/dL (75-100) H 09/10/20 08:01 POC Glucose 151 mg/dL (70-105) H 08/21/20 11:17 Hemoglobin A1c 6.1 % (4-6) H 08/11/20 05:39 Lactic Acid 0.80 mmol/L (0.7-2.0) 08/10/20 11:18 Calcium 9.2 mg/dL (8.4-10.2) 09/10/20 08:01 Magnesium 2.30 mg/dL (1.7-2.3) 09/10/20 08:01 Ferritin 666.4 ng/mL (30.0-300.0) H 09/06/20 10:43 Total Bilirubin 0.50 mg/dL (0.1-1.2) 08/18/20 05:13 AST 50 units/L (5-40) H 08/18/20 05:13 ALT 50 units/L (7-56) 08/18/20 05:13 Alkaline Phosphatase 103 units/L (35-129) 08/18/20 05:13 Lactate Dehydrogenase 607 units/L (91-180) H 09/06/20 10:43 C-Reactive Protein 0.10 mg/dL (0.00-1.30) 09/06/20 10:43 NT-Pro-B Natriuret Pep 36.40 pg/mL (0-450) 08/12/20 06:29 Total Protein 6.9 g/dL (6.3-8.2) 08/18/20 05:13 Albumin 3.7 g/dL (3.9-5) L 08/18/20 05:13 Albumin/Globulin Ratio 1.1 % 08/18/20 05:13 Procalcitonin 0.08 ng/mL (<0.15) 08/21/20 13:39 TSH 1.830 mlU/mL (0.270-4.200) 08/17/20 05:06 Free T4 1.01 ng/dL (0.76-1.46) 08/17/20 05:06 Arterial Blood Glucose 141 mg/dL (65-95) H 08/14/20 08:23 Arterial Blood Ionized Calcium 4.8 mg/dL (4.6-5.3) 08/14/20 08:23 Urine Color Yellow (Yellow) 08/10/20 Unknown Urine Turbidity Cloudy (Clear) 08/10/20 Unknown Urine pH 5.0 (5.0-7.0) 08/10/20 Unknown Ur Specific [place] 1.025 (1.003-1.030) 08/10/20 Unknown Urine Protein 30 mg/dl mg/dL (Negative) 08/10/20 Unknown Urine Glucose (UA) 150 mg/dL (Negative) 08/10/20 Unknown Urine Ketones Negative mg/dL (Negative) 08/10/20 Unknown Urine Blood Negative (Negative) 08/10/20 Unknown Urine Nitrite Negative (Negative) 08/10/20 Unknown Urine Bilirubin Negative (Negative) 08/10/20 Unknown Urine Urobilinogen < 2.0 mg/dL (<2.0) 08/10/20 Unknown Ur Leukocyte Esterase Negative (Negative) 08/10/20 Unknown Urine WBC (Auto) 5.0 /HPF (0.0-6.0) 08/10/20 Unknown Urine RBC (Auto) 2.0 /HPF (0.0-6.0) 08/10/20 Unknown U Epithel Cells (Auto) 1.0 /HPF (0-13.0) 08/10/20 Unknown Urine Bacteria (Auto) 1+ /HPF (Negative) 08/10/20 Unknown Urine Mucus 3+ /HPF 08/10/20 Unknown Coronavirus (PCR) Positive (Negative) A 08/11/20 Unknown Gaytan/IV: Voiding Method Urinal Active Medications - Current Medications Current Medications: Generic Name Dose Route Start Last Admin Trade Name Freq PRN Reason Stop Dose Admin Acetaminophen 650 mg 08/10/20 23:48 08/31/20 00:34 Acetaminophen 325 Mg Tab PO 650 mg Q4H PRN Administration Pain MILD(1-3)/Fever >100.5/MARTINEZ Apixaban 5 mg 08/29/20 22:00 09/09/20 21:49 Apixaban 5 Mg Tab PO 5 mg Q12HR MELANIE Administration Protocol Artificial Tears 2 drops 08/16/20 13:44 Hypromellose 0.5% Ophth Soln 15 Ml OU Q4H PRN Dry Eye(s) Ascorbic Acid 500 mg 08/12/20 10:00 09/09/20 21:49 Ascorbic Acid 500 Mg Tab PO 500 mg BID MELANIE Administration Famotidine 20 mg 08/27/20 12:00 09/09/20 21:49 Famotidine 20 Mg Tab PO 20 mg BID MELANIE Administration Methylprednisolone Sodium Succinate 40 mg 08/31/20 10:00 09/10/20 06:28 Methylprednisolone Sod Succinate 40 Mg/1 Ml Inj IV 40 mg Q8HR MELANIE Administration Metoclopramide HCl 10 mg 08/10/20 23:48 Metoclopramide 10 Mg/2 Ml Inj IV Q6H PRN Nausea And Vomiting Morphine Sulfate 2 mg 08/10/20 23:48 08/25/20 10:20 Morphine 2 Mg/1 Ml Inj IV 2 mg Q4H PRN Administration Pain, Moderate (4-6) Ondansetron HCl 4 mg 08/10/20 23:48 Ondansetron 4 Mg/2 Ml Inj IV Q8H PRN Nausea And Vomiting Oxycodone/Acetaminophen 1 tab 08/10/20 23:48 08/25/20 21:08 Oxycodone /Acetaminophen 5-325mg Tab PO 1 tab Q6H PRN Administration Pain, Moderate (4-6) Sodium Chloride 10 ml 08/11/20 10:00 09/09/20 21:49 Sodium Chloride 0.9% 10 Ml Flush Syringe IV 10 ml BID MELANIE Administration Sodium Chloride 10 ml 08/10/20 23:48 08/12/20 21:04 Sodium Chloride 0.9% 10 Ml Flush Syringe IV 10 ml PRN PRN Administration LINE FLUSH Zinc Sulfate 220 mg 08/12/20 12:00 09/09/20 09:57 Zinc Sulfate 220 Mg Cap PO 220 mg QDAY MELANIE Administration Nutrition/Malnutrition Assess - Dietary Evaluation Nutrition/Malnutrition Findings: Nutrition Notes Start: 08/17/20 10: 49 Freq: Status: Active Protocol: Document 09/08/20 13:30 CW (Rec: 09/08/20 13:38 CW [id number]) Nutrition Notes Initial or Follow up Reassessment Other Pertinent Diagnosis COVID-19 (+), pneu, RLE DVT, sinus bradycardia Current Diet Regular Labs/Tests No new labs Pertinent Medications solumedrol Height 5 ft 11 in Weight 131.7 kg [place] Body Weight (kg) 78.18 BMI 40.4 Weight Status Morbidly Obese Subjective/Other Information F/U for intakes and ONS. Pt eating 100% of meals. Skin remains intact Percent of energy/protein needs met: 100%/100% Burn Absent Trauma Absent Cultural/Ethnic/Yazidi Belief Requests salads with chicken Current % PO Good (75-100%) Minimum of two criteria No #1 Nutrition Diagnosis Inadequate oral intake Diagnosis Progress(for reassessment Resolved documentation) Is patient on ventilator? No Is Patient Ambulatory and/or Out of Bed No REE-([facility]-confined to bed) 2766.156 Kcal/Kg value to use for calculation 16 Approximate Energy Requirements Using 2107 kcal/Kg Calculation Used for Recommendations Kcal/kg Additional Notes Pro needs 0.8-1g/kg adjBW: 90- 113g/day Fluid needs 1ml/kcal Nutrition Intervention Change Diet Order: Continue current diet as tolerated Add Supplement/Snack (indicate name/kcal Ensure High Protein QD /protein ) Provides kCal: 160 Provides Protein (gm) 16 Goal #1 Stable PO intakes Goal #2 PO intake of meals plus ONS to meet at least 75% energy and pro needs Anticipated Discharge Needs: Regular Diet Follow-Up By: 09/15/20 Additional Comments F/U for stable intakes
[2020-09-10] MEDS: ZINC SULFATE 220 MG CAP PO SCH (09:53)
[2020-09-10] MEDS: ASCORBIC ACID 500 MG TAB PO SCH ×2 (09:53→21:41)
[2020-09-10] MEDS: APIXABAN 5 MG TAB PO SCH ×2 (09:53→21:41)
[2020-09-10] MEDS: FAMOTIDINE 20 MG TAB PO SCH ×2 (09:53→21:41)
[2020-09-10] MEDS ORDERED: FUROSEMIDE 40 MG/4 ML INJ IV ONE ×2 (11:07→13:30)
--- NOTE | 2020-09-10 11:10 | Progress Note ---
Assessment and Plan 30 y/o morbidly obese male with acute respiratory failure secondary to COVID 19 pneumonia. now found to have DVT in lower ext. 09/10/20: Will drop steroids starting tomorrow to 40q12. Lasix today. Continue to prone or some variation of this as tolerated. Hopeful he will continue to wean and can get patient to nasal cannula. Prognosis is still guarded. 09/08/20: Wean As tolerated. Prone as able. Hold lasix. Will check labs over the weekend. Guarded prognosis. 09/07/20: Continue steroids now especially with improvement in the last 24 hours. Hold on lasix again today. May be labs on 09/08/20 09/06/20: Will continue steroids. Likely will stop in next 48 hours as patient not having improvement. Inflammatory markers are better. Would be a good candidate for LTACH but no funding. Prone as much as tolerated. Guarded p rognosis. hold on lasix today, suggest checking labs tomorrow. 09/05/20: Lasix again today. Will continue steroids. Prne as much as tolerated. Guarded prognosis. 09/04/20: Will continue steroids given mild improvement. Prone as much as tolerated. Lasix again today. Bipap at night. 09/01/20: Continue steroids at least through the weekend. Continue to prone as much as tolerated. Lasix 40mg IV again today. BIpap QHS. Very very guarded prognosis. He has been hanging out in the high 80's low 90's for weeks now. 08/31/20: Going to place patient back on steroids. Will do solumedrol 40q8 at least for the next 48-72 hours to see if this helps. Checked stat labs this morning to evaluate renal function and potassium levels before anymore lasix is given. Continue to prone as tolerated and bipap QHS. Prognosis remains guarded. 08/30/20: Proning is a must. Will give lasix 40 today. Continue anticoagulation. Prognosis remians very very guarded. Avoid intubation at all costs. 08/29/20: Continue to prone as tolerated during the day and sleep prone at night. HOld on lasix today. Continue anticoagulation. Guarded prognosis. 08/28/20: Continue to prone as tolerated. Today will give lasix 40 to see if this helps. Will discuss with cardiology about echo. Clinically patient looks the same and not in distress. If PE is present, likely not large enough for EKOS. Given his high O2 requirement, prefer not to try CTA at this time as I feel the risks outweigh the benefits. 08/27/20: Long discussion with patient again at bedside today. May need to consider repeat ECHO to look for right heart strain. We know he had VTE in the lower ext but never had to oppurtunity to truly rule him out for PE. Cousin who is an TE[employer] FIELD TECHNICIAN in outpatient setting at [place] asked some questions so I spoke with her via the phone. She is going to help encourage proning. Will give more lasix t angélica. Very very guarded prognosis. 08/26/20: Pulm status is more stable today compared to yesterday. Continue bipap PRN and QHS. Will give IV lasix again today. Prognosis still remains very guarded. 08/25/20: Placed back on bipap this am secondary to desaturations and lower mental state than before. Patient has been stable and making improvements but now seems to be headed in the wrong direction. Will monitor very closely as he is a high risk for intubation and bad outcomes. Very very guarded prognosis. Will give lasix today. 08/24/20: Encouraged more proning. Continue BIpap QHS and PRN. unfortunately, no funding, patient would be a good LTACH candidate as he will likely take a lo ng time to wean from HFNC. 08/23/20: No new recs. Proning is metcalf. Will continue to follow. Appreciate ID recs and help. 08/22/20: Bipap PRN and QHS. Will given lasix today. Prone as tolerated. PT continues. Slight improvement. Will continue to follow. 08/21/20: Bipap PRN and QHS. Hold on lasix today. Continue to prone as much as tolerated. Will order PT consult. 08/18/20: Bipap pRN and QHS. More lasix today. Prone as tolerated during the day and sleep prone at night. Continue to try to hold off on intubation. Guarded prognosis. 08/17/20: Continue anticoagulation. Still trying to prevent intubation however will do electively if and when needed to prevent and emergent situation as patient will likely be difficult given neck and body habitus. Continue prone as tolerated. Steroids and remdesivir. 08/16/20: Anticoagulation. Prone as tolerated. Wean bipap as tolerated. Pro gnosis remains guarded. Trying to prevent intubation given poor outcomes associated with mechanically ventilated obese COVID patients. 08/15/20: Continue therapeutic anticoagulation. No current indication for vascular consult given no evidence of right heart strain on echo. CT would only be beneficial if we thought it would show large enough clot to warrant EKOS and with no evidence of strain, I doubt that will be the case. Continue proning as much as tolerated. Spoke with mother over the phone to update her. Patient also got actemra on yesterday as well. Prognosis remains guarded 08/14/20: Will accept sats in the mid 80's as long as mental state and work of breathing do not change. AGree with lasix therapy. Found to have large DVT on right. Spoke with [facility] and asked them to order stat echo to look for right heart strain, and if present may need to consider echos. Await echo before vascular consult. Prone if possible. Long discussion with mother on phone. Gave her a list of the meds he is on and what our current plan is. Also very candid with her and son at bedside that the mortality rate with COVID is very very high. 08/13/20: Lasix again today. Continue to alternate between HFNC with NRB and bipap. Prognosis is very very guarded. Very very guarded to poor prognosis given CXR appearance, and body habitus, along with rapid decline in self sustaning oxygen levels. Agree with lasix and increase in steroids. Must prone. Very high likelihood for mechanical ventilation which would carry a high mortality for patient. Will continue to follow. No additional IVF's unless indicated. Subjective Date of service: 09/10/20 Principal diagnosis: COVID Interval history: Down to 30liters and 60%. Good sats. BP elevated, likely from steroids. Objective Vital Signs - 12hr 09/10/20 09/10/20 09/10/20 00:00 00:53 01:00 Temperature 98.1 F Pulse Rate 66 78 69 Respiratory 11 L 24 11 L Rate Blood Pressure 159/89 152/101 O2 Sat by Pulse 94 100 100 Oximetry 09/10/20 09/10/20 09/10/20 02:00 03:00 03:54 Temperature 98.2 F Pulse Rate 65 56 L Respiratory 11 L 9 L Rate Blood Pressure 147/102 157/97 O2 Sat by Pulse 100 95 Oximetry 09/10/20 09/10/20 09/10/20 04:00 05:00 06:00 Temperature Pulse Rate 55 L 58 L 60 Respiratory 18 10 L 10 L Rate Blood Pressure 162/96 163/92 167/102 O2 Sat by Pulse 98 94 95 Oximetry 09/10/20 09/10/20 09/10/20 07:00 08:00 09:00 Temperature 98.5 F Pulse Rate 56 L 58 L 62 Respiratory 11 L 10 L Rate Blood Pressure 160/83 178/100 O2 Sat by Pulse 97 98 Oximetry 09/10/20 09:01 Temperature Pulse Rate 82 Respiratory 13 Rate Blood Pressure 160/84 O2 Sat by Pulse 89 Oximetry Constitutional: no acute distress, alert Eyes: non-icteric ENT: oropharynx moist Neck: supple Effort: normal Ascultation: Bilateral: clear Cardiovascular: regular rate and rhythm (no mrg) Gastrointestinal: normoactive bowel sounds, soft, non-distended Integumentary: normal Extremities: no cyanosis, no edema, pink and warm Neurologic: normal mental status, non-focal exam Psychiatric: mood appropriate, affect normal CBC and BMP: 09/05/20 07:11 09/10/20 08:01 ABG, PT/INR, D-dimer: ABG ABG pH 7.313 pH Units (7.350-7.450) L 08/25/20 12:30 POC ABG pCO2 46.9 mmHg (32.0-48.0) 08/14/20 08:23 ABG pCO2 67.2 mm Hg 08/25/20 12:30 POC ABG pO2 50.0 mmHg (83-108) L 08/14/20 08:23 ABG pO2 76.2 mm Hg (80.0-90.0) L 08/25/20 12:30 POC ABG HCO3 31.4 08/14/20 08:23 ABG O2 Saturation 94.9 % (95.0-99.0) L 08/25/20 12:30 PT/INR, D-dimer PT 12.6 Sec. (12.2-14.9) 08/10/20 08:29 INR 0.96 (0.87-1.13) 08/10/20 08:29 D-Dimer 548.23 ng/mlDDU (0-234) H 09/10/20 10:24 Abnormal lab findings: Abnormal Labs 08/10/20 08/10/20 08/10/20 08:29 08:29 08:29 WBC Lymph % (Auto) [place] % (Auto) 8.4 H Lymph # (Auto) [place] # (Auto) Seg Neutrophils % Seg Neuts % (Manual) Lymphocytes % (Manual) Seg Neutrophils # Seg Neutrophils # Man Lymphocytes # (Manual) Monocytes # (Manual) D-Dimer ABG pH POC ABG pCO2 POC ABG pO2 ABG pO2 ABG HCO3 ABG O2 Saturation ABG Base Excess ABG Hemoglobin ABG Oxyhemoglobin ABG Potassium ABG Glucose VBG pH 7.303 L Oxyhemoglobin Sodium Potassium Chloride Carbon Dioxide BUN Creatinine Glucose 132 H POC Glucose Hemoglobin A1c Magnesium Ferritin AST Lactate Dehydrogenase C-Reactive Protein Albumin Arterial Blood Glucose Coronavirus (PCR) 08/11/20 08/11/20 08/11/20 05:39 05:39 05:39 WBC Lymph % (Auto) 12.5 L [place] % (Auto) Lymph # (Auto) [place] # (Auto) Seg Neutrophils % 84.2 H Seg Neuts % (Manual) Lymphocytes % (Manual) Seg Neutrophils # 9.1 H Seg Neutrophils # Man Lymphocytes # (Manual) Monocytes # (Manual) D-Dimer ABG pH POC ABG pCO2 POC ABG pO2 ABG pO2 ABG HCO3 ABG O2 Saturation ABG Base Excess ABG Hemoglobin ABG Oxyhemoglobin ABG Potassium ABG Glucose VBG pH Oxyhemoglobin Sodium Potassium Chloride Carbon Dioxide BUN Creatinine Glucose 125 H POC Glucose Hemoglobin A1c 6.1 H Magnesium Ferritin AST Lactate Dehydrogenase C-Reactive Protein Albumin Arterial Blood Glucose Coronavirus (PCR) 08/11/20 08/11/20 08/11/20 18:58 18:58 18:58 WBC Lymph % (Auto) [place] % (Auto) Lymph # (Auto) [place] # (Auto) Seg Neutrophils % Seg Neuts % (Manual) Lymphocytes % (Manual) Seg Neutrophils # Seg Neutrophils # Man Lymphocytes # (Manual) Monocytes # (Manual) D-Dimer 464.84 H ABG pH POC ABG pCO2 POC ABG pO2 ABG pO2 ABG HCO3 ABG O2 Saturation ABG Base Excess ABG Hemoglobin ABG Oxyhemoglobin ABG Potassium ABG Glucose VBG pH Oxyhemoglobin Sodium Potassium Chloride Carbon Dioxide BUN Creatinine Glucose POC Glucose Hemoglobin A1c Magnesium Ferritin 528.7 H AST Lactate Dehydrogenase 637 H C-Reactive Protein 11.30 H Albumin Arterial Blood Glucose Coronavirus (PCR) 08/11/20 08/11/20 08/12/20 19:08 Unknown 06:29 WBC 11.2 H Lymph % (Auto) 8.6 L [place] % (Auto) Lymph # (Auto) 1.0 L [place] # (Auto) Seg Neutrophils % 88.3 H Seg Neuts % (Manual) Lymphocytes % (Manual) Seg Neutrophils # 9.8 H Seg Neutrophils # Man Lymphocytes # (Manual) Monocytes # (Manual) D-Dimer ABG pH POC ABG pCO2 POC ABG pO2 ABG pO2 ABG HCO3 ABG O2 Saturation ABG Base Excess ABG Hemoglobin ABG Oxyhemoglobin ABG Potassium ABG Glucose VBG pH Oxyhemoglobin Sodium Potassium Chloride Carbon Dioxide BUN Creatinine Glucose 161 H POC Glucose Hemoglobin A1c Magnesium Ferritin AST Lactate Dehydrogenase C-Reactive Protein Albumin Arterial Blood Glucose Coronavirus (PCR) Positive A 08/12/20 08/12/20 08/12/20 06:29 06:29 06:29 WBC Lymph % (Auto) [place] % (Auto) Lymph # (Auto) [place] # (Auto) Seg Neutrophils % Seg Neuts % (Manual) Lymphocytes % (Manual) Seg Neutrophils # Seg Neutrophils # Man Lymphocytes # (Manual) Monocytes # (Manual) D-Dimer 830.34 H ABG pH POC ABG pCO2 POC ABG pO2 ABG pO2 ABG HCO3 ABG O2 Saturation ABG Base Excess ABG Hemoglobin ABG Oxyhemoglobin ABG Potassium ABG Glucose VBG pH Oxyhemoglobin Sodium Potassium Chloride Carbon Dioxide 31 H BUN Creatinine Glucose 138 H POC Glucose Hemoglobin A1c Magnesium Ferritin 572.6 H AST 42 H Lactate Dehydrogenase 706 H C-Reactive Protein 17.30 H Albumin 3.7 L Arterial Blood Glucose Coronavirus (PCR) 08/12/20 08/12/20 08/12/20 13:21 14:55 21:59 WBC Lymph % (Auto) [place] % (Auto) Lymph # (Auto) [place] # (Auto) Seg Neutrophils % Seg Neuts % (Manual) Lymphocytes % (Manual) Seg Neutrophils # Seg Neutrophils # Man Lymphocytes # (Manual) Monocytes # (Manual) D-Dimer ABG pH 7.315 L POC ABG pCO2 57.1 H POC ABG pO2 47.8 L ABG pO2 65.8 L ABG HCO3 31.4 H ABG O2 Saturation 91.7 L ABG Base Excess ABG Hemoglobin 19.3 H ABG Oxyhemoglobin ABG Potassium 4.9 H ABG Glucose 182 H VBG pH Oxyhemoglobin 89.7 L Sodium Potassium Chloride Carbon Dioxide BUN Creatinine Glucose POC Glucose 142 H Hemoglobin A1c Magnesium Ferritin AST Lactate Dehydrogenase C-Reactive Protein Albumin Arterial Blood Glucose 182 H Coronavirus (PCR) 08/13/20 08/13/20 08/13/20 05:35 05:35 12:11 WBC 12.0 H Lymph % (Auto) 8.1 L [place] % (Auto) Lymph # (Auto) 1.0 L [place] # (Auto) Seg Neutrophils % 88.0 H Seg Neuts % (Manual) Lymphocytes % (Manual) Seg Neutrophils # 10.5 H Seg Neutrophils # Man Lymphocytes # (Manual) Monocytes # (Manual) D-Dimer ABG pH POC ABG pCO2 POC ABG pO2 ABG pO2 ABG HCO3 ABG O2 Saturation ABG Base Excess ABG Hemoglobin ABG Oxyhemoglobin ABG Potassium ABG Glucose VBG pH Oxyhemoglobin Sodium Potassium 5.1 H Chloride Carbon Dioxide 31 H BUN 25 H Creatinine Glucose 174 H POC Glucose 154 H Hemoglobin A1c Magnesium Ferritin AST 41 H Lactate Dehydrogenase 996 H C-Reactive Protein Albumin 3.8 L Arterial Blood Glucose Coronavirus (PCR) 08/13/20 08/13/20 08/14/20 16:18 23:24 05:21 WBC 14.2 H Lymph % (Auto) 8.2 L [place] % (Auto) Lymph # (Auto) [place] # (Auto) 0.9 H Seg Neutrophils % 85.4 H Seg Neuts % (Manual) Lymphocytes % (Manual) Seg Neutrophils # 12.2 H Seg Neutrophils # Man Lymphocytes # (Manual) Monocytes # (Manual) D-Dimer ABG pH POC ABG pCO2 POC ABG pO2 ABG pO2 ABG HCO3 ABG O2 Saturation ABG Base Excess ABG Hemoglobin ABG Oxyhemoglobin ABG Potassium ABG Glucose VBG pH Oxyhemoglobin Sodium Potassium Chloride Carbon Dioxide BUN Creatinine Glucose POC Glucose 188 H 127 H Hemoglobin A1c Magnesium Ferritin AST Lactate Dehydrogenase C-Reactive Protein Albumin Arterial Blood Glucose Coronavirus (PCR) 08/14/20 08/14/20 08/14/20 05:21 05:21 05:21 WBC Lymph % (Auto) [place] % (Auto) Lymph # (Auto) [place] # (Auto) Seg Neutrophils % Seg Neuts % (Manual) Lymphocytes % (Manual) Seg Neutrophils # Seg Neutrophils # Man Lymphocytes # (Manual) Monocytes # (Manual) D-Dimer > 25628 H ABG pH POC ABG pCO2 POC ABG pO2 ABG pO2 ABG HCO3 ABG O2 Saturation ABG Base Excess ABG Hemoglobin ABG Oxyhemoglobin ABG Potassium ABG Glucose VBG pH Oxyhemoglobin Sodium Potassium Chloride Carbon Dioxide 32 H 33 H BUN 26 H 26 H Creatinine Glucose 152 H 156 H POC Glucose Hemoglobin A1c Magnesium Ferritin AST 53 H 54 H Lactate Dehydrogenase 1249 H C-Reactive Protein 9.90 H Albumin 3.7 L 3.7 L Arterial Blood Glucose Coronavirus (PCR) 08/14/20 08/14/20 08/14/20 05:21 05:58 08:23 WBC Lymph % (Auto) [place] % (Auto) Lymph # (Auto) [place] # (Auto) Seg Neutrophils % Seg Neuts % (Manual) Lymphocytes % (Manual) Seg Neutrophils # Seg Neutrophils # Man Lymphocytes # (Manual) Monocytes # (Manual) D-Dimer ABG pH POC ABG pCO2 POC ABG pO2 50.0 L ABG pO2 ABG HCO3 ABG O2 Saturation ABG Base Excess ABG Hemoglobin ABG Oxyhemoglobin 84.0 L ABG Potassium ABG Glucose 141 H VBG pH Oxyhemoglobin Sodium Potassium Chloride Carbon Dioxide BUN Creatinine Glucose POC Glucose 139 H Hemoglobin A1c Magnesium Ferritin 1198.0 H AST Lactate Dehydrogenase C-Reactive Protein Albumin Arterial Blood Glucose 141 H Coronavirus (PCR) 08/15/20 08/15/20 08/16/20 05:16 05:16 05:26 WBC 13.7 H 17.7 H Lymph % (Auto) 8.2 L [place] % (Auto) Lymph # (Auto) [place] # (Auto) Seg Neutrophils % 86.2 H Seg Neuts % (Manual) 91.0 H 88.0 H Lymphocytes % (Manual) 7.0 L 9.0 L Seg Neutrophils # 15.3 H Seg Neutrophils # Man 12.5 H 15.6 H Lymphocytes # (Manual) 1.0 L Monocytes # (Manual) D-Dimer ABG pH POC ABG pCO2 POC ABG pO2 ABG pO2 ABG HCO3 ABG O2 Saturation ABG Base Excess ABG Hemoglobin ABG Oxyhemoglobin ABG Potassium ABG Glucose VBG pH Oxyhemoglobin Sodium Potassium Chloride Carbon Dioxide 32 H BUN 29 H Creatinine Glucose 150 H POC Glucose Hemoglobin A1c Magnesium Ferritin AST Lactate Dehydrogenase 1150 H C-Reactive Protein Albumin 3.5 L Arterial Blood Glucose Coronavirus (PCR) 08/16/20 08/16/20 08/16/20 05:26 05:26 05:26 WBC Lymph % (Auto) [place] % (Auto) Lymph # (Auto) [place] # (Auto) Seg Neutrophils % Seg Neuts % (Manual) Lymphocytes % (Manual) Seg Neutrophils # Seg Neutrophils # Man Lymphocytes # (Manual) Monocytes # (Manual) D-Dimer > 65536 H ABG pH POC ABG pCO2 POC ABG pO2 ABG pO2 ABG HCO3 ABG O2 Saturation ABG Base Excess ABG Hemoglobin ABG Oxyhemoglobin ABG Potassium ABG Glucose VBG pH Oxyhemoglobin Sodium Potassium 5.2 H Chloride Carbon Dioxide BUN 25 H Creatinine Glucose 163 H POC Glucose Hemoglobin A1c Magnesium Ferritin 1013.0 H AST Lactate Dehydrogenase C-Reactive Protein 4.00 H Albumin 3.6 L Arterial Blood Glucose Coronavirus (PCR) 08/17/20 08/17/20 08/17/20 05:06 05:06 07:51 WBC 20.7 H Lymph % (Auto) [place] % (Auto) Lymph # (Auto) [place] # (Auto) Seg Neutrophils % Seg Neuts % (Manual) 86.0 H Lymphocytes % (Manual) 7.0 L Seg Neutrophils # Seg Neutrophils # Man 17.8 H Lymphocytes # (Manual) Monocytes # (Manual) 1.2 H D-Dimer ABG pH POC ABG pCO2 POC ABG pO2 ABG pO2 ABG HCO3 ABG O2 Saturation ABG Base Excess ABG Hemoglobin ABG Oxyhemoglobin ABG Potassium ABG Glucose VBG pH Oxyhemoglobin Sodium Potassium Chloride 96.5 L Carbon Dioxide 31 H BUN 29 H Creatinine Glucose 121 H POC Glucose 110 H Hemoglobin A1c Magnesium Ferritin AST 46 H Lactate Dehydrogenase C-Reactive Protein Albumin 3.7 L Arterial Blood Glucose Coronavirus (PCR) 08/17/20 08/17/20 08/18/20 11:42 21:45 05:13 WBC Lymph % (Auto) [place] % (Auto) Lymph # (Auto) [place] # (Auto) Seg Neutrophils % Seg Neuts % (Manual) Lymphocytes % (Manual) Seg Neutrophils # Seg Neutrophils # Man Lymphocytes # (Manual) Monocytes # (Manual) D-Dimer > 1000 H ABG pH POC ABG pCO2 POC ABG pO2 ABG pO2 ABG HCO3 ABG O2 Saturation ABG Base Excess ABG Hemoglobin ABG Oxyhemoglobin ABG Potassium ABG Glucose VBG pH Oxyhemoglobin Sodium Potassium Chloride Carbon Dioxide BUN Creatinine Glucose POC Glucose 122 H 143 H Hemoglobin A1c Magnesium Ferritin AST Lactate Dehydrogenase C-Reactive Protein Albumin Arterial Blood Glucose Coronavirus (PCR) 08/18/20 08/18/20 08/21/20 05:13 05:13 11:17 WBC Lymph % (Auto) [place] % (Auto) Lymph # (Auto) [place] # (Auto) Seg Neutrophils % Seg Neuts % (Manual) Lymphocytes % (Manual) Seg Neutrophils # Seg Neutrophils # Man Lymphocytes # (Manual) Monocytes # (Manual) D-Dimer ABG pH POC ABG pCO2 POC ABG pO2 ABG pO2 ABG HCO3 ABG O2 Saturation ABG Base Excess ABG Hemoglobin ABG Oxyhemoglobin ABG Potassium ABG Glucose VBG pH Oxyhemoglobin Sodium 133 L Potassium Chloride 94.7 L Carbon Dioxide BUN 33 H Creatinine Glucose 110 H POC Glucose 151 H Hemoglobin A1c Magnesium Ferritin 979.8 H AST 50 H Lactate Dehydrogenase C-Reactive Protein Albumin 3.7 L Arterial Blood Glucose Coronavirus (PCR) 08/21/20 08/21/20 08/21/20 13:39 13:39 15:55 WBC Lymph % (Auto) [place] % (Auto) Lymph # (Auto) [place] # (Auto) Seg Neutrophils % Seg Neuts % (Manual) Lymphocytes % (Manual) Seg Neutrophils # Seg Neutrophils # Man Lymphocytes # (Manual) Monocytes # (Manual) D-Dimer 6731.66 H ABG pH POC ABG pCO2 POC ABG pO2 ABG pO2 ABG HCO3 ABG O2 Saturation ABG Base Excess ABG Hemoglobin ABG Oxyhemoglobin ABG Potassium ABG Glucose VBG pH Oxyhemoglobin Sodium Potassium Chloride Carbon Dioxide BUN Creatinine Glucose POC Glucose Hemoglobin A1c Magnesium Ferritin 1019.0 H AST Lactate Dehydrogenase 1251 H C-Reactive Protein Albumin Arterial Blood Glucose Coronavirus (PCR) 08/22/20 08/22/20 08/25/20 05:23 05:23 12:30 WBC 24.7 H Lymph % (Auto) [place] % (Auto) Lymph # (Auto) [place] # (Auto) Seg Neutrophils % Seg Neuts % (Manual) Lymphocytes % (Manual) Seg Neutrophils # Seg Neutrophils # Man Lymphocytes # (Manual) Monocytes # (Manual) D-Dimer ABG pH 7.313 L POC ABG pCO2 POC ABG pO2 ABG pO2 76.2 L ABG HCO3 33.3 H ABG O2 Saturation 94.9 L ABG Base Excess 5.0 H ABG Hemoglobin 13.4 L ABG Oxyhemoglobin ABG Potassium ABG Glucose VBG pH Oxyhemoglobin 93.0 L Sodium 136 L Potassium Chloride 96.3 L Carbon Dioxide BUN 24 H Creatinine 0.7 L Glucose 115 H POC Glucose Hemoglobin A1c Magnesium Ferritin AST Lactate Dehydrogenase C-Reactive Protein Albumin Arterial Blood Glucose Coronavirus (PCR) 08/25/20 08/25/20 08/25/20 16:08 16:08 16:08 WBC Lymph % (Auto) [place] % (Auto) Lymph # (Auto) [place] # (Auto) Seg Neutrophils % Seg Neuts % (Manual) Lymphocytes % (Manual) Seg Neutrophils # Seg Neutrophils # Man Lymphocytes # (Manual) Monocytes # (Manual) D-Dimer 4487.76 H ABG pH POC ABG pCO2 POC ABG pO2 ABG pO2 ABG HCO3 ABG O2 Saturation ABG Base Excess ABG Hemoglobin ABG Oxyhemoglobin ABG Potassium ABG Glucose VBG pH Oxyhemoglobin Sodium Potassium Chloride Carbon Dioxide BUN Creatinine Glucose POC Glucose Hemoglobin A1c Magnesium Ferritin 961.4 H AST Lactate Dehydrogenase 959 H C-Reactive Protein Albumin Arterial Blood Glucose Coronavirus (PCR) 08/26/20 08/26/20 08/31/20 07:11 07:11 10:56 WBC Lymph % (Auto) [place] % (Auto) 9.8 H Lymph # (Auto) [place] # (Auto) 1.0 H Seg Neutrophils % Seg Neuts % (Manual) Lymphocytes % (Manual) Seg Neutrophils # Seg Neutrophils # Man Lymphocytes # (Manual) Monocytes # (Manual) D-Dimer ABG pH POC ABG pCO2 POC ABG pO2 ABG pO2 ABG HCO3 ABG O2 Saturation ABG Base Excess ABG Hemoglobin ABG Oxyhemoglobin ABG Potassium ABG Glucose VBG pH Oxyhemoglobin Sodium 135 L Potassium Chloride 95.7 L 97.4 L Carbon Dioxide 33 H 34 H BUN Creatinine 0.6 L Glucose 109 H POC Glucose Hemoglobin A1c Magnesium 2.40 H Ferritin AST Lactate Dehydrogenase C-Reactive Protein Albumin Arterial Blood Glucose Coronavirus (PCR) 09/05/20 09/05/20 09/06/20 07:11 07:11 10:43 WBC 14.0 H Lymph % (Auto) 10.8 L [place] % (Auto) Lymph # (Auto) [place] # (Auto) Seg Neutrophils % 82.6 H Seg Neuts % (Manual) Lymphocytes % (Manual) Seg Neutrophils # 11.6 H Seg Neutrophils # Man Lymphocytes # (Manual) Monocytes # (Manual) D-Dimer 877.51 H ABG pH POC ABG pCO2 POC ABG pO2 ABG pO2 ABG HCO3 ABG O2 Saturation ABG Base Excess ABG Hemoglobin ABG Oxyhemoglobin ABG Potassium ABG Glucose VBG pH Oxyhemoglobin Sodium Potassium Chloride Carbon Dioxide 36 H BUN 21 H Creatinine 0.6 L Glucose 123 H POC Glucose Hemoglobin A1c Magnesium Ferritin AST Lactate Dehydrogenase C-Reactive Protein Albumin Arterial Blood Glucose Coronavirus (PCR) 09/06/20 09/06/20 09/10/20 10:43 10:43 08:01 WBC Lymph % (Auto) [place] % (Auto) Lymph # (Auto) [place] # (Auto) Seg Neutrophils % Seg Neuts % (Manual) Lymphocytes % (Manual) Seg Neutrophils # Seg Neutrophils # Man Lymphocytes # (Manual) Monocytes # (Manual) D-Dimer ABG pH POC ABG pCO2 POC ABG pO2 ABG pO2 ABG HCO3 ABG O2 Saturation ABG Base Excess ABG Hemoglobin ABG Oxyhemoglobin ABG Potassium ABG Glucose VBG pH Oxyhemoglobin Sodium Potassium Chloride Carbon Dioxide 32 H BUN Creatinine 0.7 L Glucose 140 H POC Glucose Hemoglobin A1c Magnesium Ferritin 666.4 H AST Lactate Dehydrogenase 607 H C-Reactive Protein Albumin Arterial Blood Glucose Coronavirus (PCR) 09/10/20 10:24 WBC Lymph % (Auto) [place] % (Auto) Lymph # (Auto) [place] # (Auto) Seg Neutrophils % Seg Neuts % (Manual) Lymphocytes % (Manual) Seg Neutrophils # Seg Neutrophils # Man Lymphocytes # (Manual) Monocytes # (Manual) D-Dimer 548.23 H ABG pH POC ABG pCO2 POC ABG pO2 ABG pO2 ABG HCO3 ABG O2 Saturation ABG Base Excess ABG Hemoglobin ABG Oxyhemoglobin ABG Potassium ABG Glucose VBG pH Oxyhemoglobin Sodium Potassium Chloride Carbon Dioxide BUN Creatinine Glucose POC Glucose Hemoglobin A1c Magnesium Ferritin AST Lactate Dehydrogenase C-Reactive Protein Albumin Arterial Blood Glucose Coronavirus (PCR)
[2020-09-11] MEDS: methylPREDNISolone Sod Succinate 40 MG/1 ML INJ IV SCH ×3 (06:10→23:22)
[2020-09-11 06:32] LABS: Basophils % (Auto) 0.3 % (0.0-1.8); Eosinophils # (Auto) 0.1 K/mm3 (0.0-0.4); Eosinophils % (Auto) 0.3 % (0.0-4.3); Hematocrit 41.7 % (35.5-45.6); Hemoglobin 13.9 gm/dl (11.8-15.2); Lymphocytes % (Auto) 11.2 % (13.4-35.0); Mean Corpuscular HGB Conc 33 % (32-34); Mean Corpuscular Volume 90 fl (84-94); Monocytes # (Auto) 0.9 K/mm3 (0.0-0.8); Monocytes % (Auto) 5.1 % (0.0-7.3); Platelet Count 290 K/mm3 (140-440); Red Blood Count 4.62 M/mm3 (3.65-5.03); Red Cell Distribution Width 14.7 % (13.2-15.2)
[2020-09-11 06:56] LABS: BUN/Creatinine Ratio 26; Blood Urea Nitrogen 18 mg/dL (9-20); Calcium 9.4 mg/dL (8.4-10.2); Hemolysis Index 20
--- NOTE | 2020-09-11 08:41 | Progress Note ---
Assessment and Plan Assessment and plan: Patient remains on BiPAP therapy this morning --Acute hypoxic respiratory failure secondary to COVID-19 PNA Pt remains on high flow oxygen most recent numbers 30 L/60 FiO2/97 O2 sats with intermittent BiPAP Patient unstable to go for CTA chest to evaluate the cause of persistent hypoxia pulmonary following, Home O2 evaluation at discharge --COVID-19 Pneumonia Continue antibiotics Continue steroids total 10 days s/p Remdesivir, s/p tocilizumab On HF NCO 2, titrate and wean as tolerated Decreased to 40 L/ 85 percent Fio2/97% O2 sats --Right lower extremity DVT on LE Doppler study LE Doppler LE Doppler shows RLE DVT. Echocardiogram shows no right heart strain. On Eliquis per protocol --Sinus bradycardia /resolved Likely from remdesivir Heart rate in 60s and 70s today TSH wnl --Morbid obesity; BMI 40.4 Diet and exercise advised Patient needs outpatient bariatric surgical/medical weight reduction consult when medically stable --DVT prophylaxis;-on Eliquis[positive DVT] Continues to be on high flow oxygen/BiPAP wean as tolerated We will closely monitor the patient and adjust management as needed Assistant Professor In Family Studies recommendations noted and appreciated Plan of care reviewed with the patient and his nurse and the case management Also discussed with electron gun assembler and case management The high probability of a clinically significant, sudden or life threatening deterioration of the [pulmonary,Vascular,ID,CVS and hematology] system(s) required my full and direct attention, intervention and personal management. The aggregate critical care time was [34] minutes. This time is in addition to time spent performing reported procedures but includes the following: [x] Data Review and interpretation [x] Patient assessment and monitoring of vital signs [x] Documentation [x] Medication orders and management Brief history 30-year-old male with morbid obesity weighing about 310 pounds was admitted through emergency room with frontal headache for 3 days. Was admitted through emergency room with acute hypoxic respiratory failure requiring BiPAP and high flow nasal cannula oxygen, admitted to [facility] tested positive for Covid 19, evaluated and followed by pulmonary, ID, managed appropriately per Covid protocols however patient continues to require high flow nasal cannula oxygen and intermittent BiPAP, patient is morbidly obese Patient may need bariatric surgical consultation upon discharge for weight reduction program when medically stable Daily Hospital course: 08/11. Patient seen examined at bedside this morning. Has no complaints. Febrile this a.m.-103 Fahrenheit. On Tylenol as needed. COVID-19 test ordered. Remains on steroids. ID consult if COVID-19 is positive. 08/12. His COVID-19 test is positive. He was started on remdesivir last night. Oxygen requirement increased overnight. Inflammatory markers increasing. Repeat chest xray shows worsening infiltrates. Ordered BNP. Lasix 40mg IV ordered. Increased dexamethasone to 6mg BID. Pulmonology consulted. Will place on continuous pulse oximetry. Incentive spirometer ordered. Advised prone positioning. 08/13. Not feeling better. Seen on BIPAP. Remains on steroids, remdesivir and antibiotics. Vitals stable. 08/14. Still maintaining sats even on BiPAP. Lasix 40 mg IV ordered. D-dimer this a.m. is more than 10,000. Lovenox increased to 150 mg twice daily. Ultrasound lower extremities Doppler showed a right DVT. Echocardiogram ordered to rule out right heart strain. Pending results, patient may need vascular surgery evaluation for possible thrombectomy. Continue on BiPAP and continue to monitor respiratory status closely. 08/15. Sats better this AM. Received toculizumab yesterday. Advised him to prone as much as possible. Echo shows normal EF with no right heart strain. I/Os reviewed. He is diuresing well. Renal function is stable. Will give additional lasix today. Pulmonology following 08/16. Remains on remdesivir. Still on BIPAP. Will give lasix 20mg IV. HR is low - likley effect of remdesivir. Will continue to monitor closely 08/17. Sats in the 90's this AM. Still on BIPAP. 08/18; patient remains hypoxic requiring BiPAP and 100% nonrebreather inter mittently 08/19; Continue supportive care, wean oxygen as tolerated. Encouraged PRONE positioning if able to tolerate. 08/20:Remains on BiPAP. continue lasix, still not proninig, encouraged to prone, FIO2 down to 90% with sat of 96%. Continue care, prognosis still guarded. 08/21: Patient down on high flow. Continue to encourage proning position. Still with guarded prognosis. Elevation in WBC noted to 20 this could be secondary to steroids I will continue to monitor. No fever noted at this time. Patient's respiratory status has stabilized on the high flow with no shallow breathing noted Discussed with the nurse at bedside 08/22; DC Lovenox therapeutic dose, start Eliquis per protocol to treat lower extremity DVT. 08/23; patient remains on high flow oxygen 40 L/100 FiO2/94% O2 sats, intermittent BiPAP 08/24; patient remains on high flow oxygen and BiPAP, consultants recommendations noted and appreciated 08/25; patient continues to be hypoxemic, on high flow oxygen 40L/ 100 FiO2/95 O2 sats and on intermittent BiPAP 08/26; patient continues to be on high flow oxygen, unable to wean follow pulmonary recommendations 08/27; patient remains on high flow oxygen 40 L/100% FiO2/95% O2 sats with intermittent BiPAP treatment 08/28; patient remains on high flow oxygen, strongly advised to prone as tolerated, consults and recommendations noted and appreciated 08/29; closely monitor the patient and adjust management as needed, wean oxygen as tolerated Home oxygen evaluation, DC planning when medically stable 08/30; clinically no change, remains on high flow oxygen, wean as tolerated Consultants recommendations noted . 08/31; patient remains on high flow oxygen 40/100/93 09/01/20;patient remains on high flow oxygen 40/100/93 09/02/20; Same 09/03:Same 09/04:Some omproment, Sitting in Chair On 80 percent FIO2, 40 liters NC O 2 High flow 09/05: Patient feels slightly better Continues to be on high flow oxygen wean as tolerated Continue current management 09/06: Patient continues to require high flow oxygen at the settings of 40 L/85 FiO2/O2 sats 97% 09/07; oxygen requirement slightly improved today on 30 L/70% FiO2/100% O2 sats Encouraging prone position as tolerated 09/08; 30 L nasal cannula intermittent BiPAP, continue current management 09/09; mild improvement still remains on high flow nasal cannula O2 and BiPAP intermittent Wean as tolerated 09/10; patient on continuous BiPAP, feels slightly better DC planning per case management when stable 09/11; patient remains on high flow oxygen and BiPAP, follow clinically Wean as tolerated, check with case management possibility of getting BiPAP at discharge for this patient, she said she would find out Follow cyber security consultant recommendations History Interval history: I have seen and examined the patient at bedside in [facility] Patient's chart and medications reviewed Strict isolation precautions and PPE protocols followed per COVID-19 guidelines Patient continues to be on BiPAP, feels slightly better Patient is cheerful anxious to go home Vital signs noted Hospitalist Physical - Constitutional Vitals: Temp Pulse Resp BP Pulse Ox 98.5 F 57 L 11 L 134/81 97 09/11/20 04:00 09/11/20 07:00 09/11/20 07:00 09/11/20 07:00 09/11/20 07:00 General appearance: Present: no acute distress, well-nourished, obese (Morbidly obese), other (1-nasal cannula oxygen) - EENT Eyes: Present: PERRL, EOM intact - Neck Neck: Present: supple, normal ROM - Respiratory Respiratory effort: normal Respiratory: bilateral: diminished, rhonchi, negative: rales, wheezing - Cardiovascular Rhythm: regular Heart Sounds: Present: S1 & S2 - Extremities Extremities: no ischemia, No edema - Abdominal General gastrointestinal: soft, non-tender, non-distended, normal bowel sounds - Integumentary Integumentary: Present: clear, warm - Psychiatric Psychiatric: appropriate mood/affect, cooperative - Neurologic Neurologic: moves all extremities Results - Labs CBC & Chem 7: 09/11/20 05:53 09/11/20 05:53 Labs: Laboratory Last Values WBC 17.7 K/mm3 (4.5-11.0) H 09/11/20 05:53 RBC 4.62 M/mm3 (3.65-5.03) 09/11/20 05:53 Hgb 13.9 gm/dl (11.8-15.2) 09/11/20 05:53 Hct 41.7 % (35.5-45.6) 09/11/20 05:53 MCV 90 fl (84-94) 09/11/20 05:53 MCH 30 pg (28-32) 09/11/20 05:53 MCHC 33 % (32-34) 09/11/20 05:53 RDW 14.7 % (13.2-15.2) 09/11/20 05:53 Plt Count 290 K/mm3 (140-440) 09/11/20 05:53 Lymph % (Auto) 11.2 % (13.4-35.0) L 09/11/20 05:53 [place] % (Auto) 5.1 % (0.0-7.3) 09/11/20 05:53 Eos % (Auto) 0.3 % (0.0-4.3) 09/11/20 05:53 Baso % (Auto) 0.3 % (0.0-1.8) 09/11/20 05:53 Lymph # (Auto) 2.0 K/mm3 (1.2-5.4) 09/11/20 05:53 [place] # (Auto) 0.9 K/mm3 (0.0-0.8) H 09/11/20 05:53 Eos # (Auto) 0.1 K/mm3 (0.0-0.4) 09/11/20 05:53 Baso # (Auto) 0.0 K/mm3 (0.0-0.1) 09/11/20 05:53 Add Manual Diff Complete 08/17/20 05:06 Total Counted 100 08/17/20 05:06 Seg Neutrophils % 83.1 % (40.0-70.0) H 09/11/20 05:53 Seg Neuts % (Manual) 86.0 % (40.0-70.0) H 08/17/20 05:06 Lymphocytes % (Manual) 7.0 % (13.4-35.0) L 08/17/20 05:06 Monocytes % (Manual) 6.0 % (0.0-7.3) 08/17/20 05:06 Eosinophils % (Manual) 1.0 % (0.0-4.3) 08/17/20 05:06 Metamyelocytes % 2.0 % 08/15/20 05:16 Nucleated RBC % Not Reportable 08/17/20 05:06 Seg Neutrophils # 14.7 K/mm3 (1.8-7.7) H 09/11/20 05:53 Seg Neutrophils # Man 17.8 K/mm3 (1.8-7.7) H 08/17/20 05:06 Band Neutrophils # 0.0 K/mm3 08/17/20 05:06 Lymphocytes # (Manual) 1.4 K/mm3 (1.2-5.4) 08/17/20 05:06 Abs React Lymphs (Man) 0.0 K/mm3 08/17/20 05:06 Monocytes # (Manual) 1.2 K/mm3 (0.0-0.8) H 08/17/20 05:06 Eosinophils # (Manual) 0.2 K/mm3 (0.0-0.4) 08/17/20 05:06 Basophils # (Manual) 0.0 K/mm3 (0.0-0.1) 08/17/20 05:06 Metamyelocytes # 0.0 K/mm3 08/17/20 05:06 Myelocytes # 0.0 K/mm3 08/17/20 05:06 Promyelocytes # 0.0 K/mm3 08/17/20 05:06 Blast Cells # 0.0 K/mm3 08/17/20 05:06 WBC Morphology Not Reportable 08/17/20 05:06 Hypersegmented Neuts Not Reportable 08/17/20 05:06 Hyposegmented Neuts Not Reportable 08/17/20 05:06 Hypogranular Neuts Not Reportable 08/17/20 05:06 Smudge Cells Not Reportable 08/17/20 05:06 Toxic Granulation Not Reportable 08/17/20 05:06 Toxic Vacuolation Not Reportable 08/17/20 05:06 Dohle Bodies Not Reportable 08/17/20 05:06 Pelger-Huet Anomaly Not Reportable 08/17/20 05:06 Juan Luis Rods Not Reportable 08/17/20 05:06 Platelet Estimate Consistent w auto 08/17/20 05:06 Clumped Platelets Not Reportable 08/17/20 05:06 Plt Clumps, EDTA Not Reportable 08/17/20 05:06 Large Platelets Not Reportable 08/17/20 05:06 Giant Platelets Not Reportable 08/17/20 05:06 Platelet Satelliting Not Reportable 08/17/20 05:06 Plt Morphology Comment Not Reportable 08/17/20 05:06 RBC Morphology Not Reportable 08/17/20 05:06 Dimorphic RBCs Not Reportable 08/17/20 05:06 Polychromasia Not Reportable 08/17/20 05:06 Hypochromasia Not Reportable 08/17/20 05:06 Poikilocytosis Not Reportable 08/17/20 05:06 Anisocytosis Few 08/17/20 05:06 Microcytosis Not Reportable 08/17/20 05:06 Macrocytosis Not Reportable 08/17/20 05:06 Spherocytes Not Reportable 08/17/20 05:06 Pappenheimer Bodies Not Reportable 08/17/20 05:06 Sickle Cells Not Reportable 08/17/20 05:06 Target Cells Not Reportable 08/17/20 05:06 Tear Drop Cells Not Reportable 08/17/20 05:06 Ovalocytes Not Reportable 08/17/20 05:06 Helmet Cells Not Reportable 08/17/20 05:06 Patterson-Chamisal Bodies Not Reportable 08/17/20 05:06 Channing Rings Not Reportable 08/17/20 05:06 Marble Cells Not Reportable 08/17/20 05:06 Bite Cells Not Reportable 08/17/20 05:06 Crenated Cell Not Reportable 08/17/20 05:06 Elliptocytes Not Reportable 08/17/20 05:06 Acanthocytes (Spur) Not Reportable 08/17/20 05:06 Rouleaux Not Reportable 08/17/20 05:06 Hemoglobin C Crystals Not Reportable 08/17/20 05:06 Schistocytes Not Reportable 08/17/20 05:06 Malaria parasites Not Reportable 08/17/20 05:06 Asif Bodies Not Reportable 08/17/20 05:06 Hem Pathologist Commnt No 08/17/20 05:06 PT 12.6 Sec. (12.2-14.9) 08/10/20 08:29 INR 0.96 (0.87-1.13) 08/10/20 08:29 D-Dimer 548.23 ng/mlDDU (0-234) H 09/10/20 10:24 ABG pH 7.313 pH Units (7.350-7.450) L 08/25/20 12:30 POC ABG pCO2 46.9 mmHg (32.0-48.0) 08/14/20 08:23 ABG pCO2 67.2 mm Hg 08/25/20 12:30 POC ABG pO2 50.0 mmHg (83-108) L 08/14/20 08:23 ABG pO2 76.2 mm Hg (80.0-90.0) L 08/25/20 12:30 POC ABG HCO3 31.4 08/14/20 08:23 ABG HCO3 33.3 mmol/L (20.0-26.0) H 08/25/20 12:30 ABG O2 Saturation 94.9 % (95.0-99.0) L 08/25/20 12:30 ABG O2 Content 17.5 (0.0-44) 08/25/20 12:30 POC ABG Base Excess 6.3 08/14/20 08:23 ABG Base Excess 5.0 mmol/L (-2.0-3.0) H 08/25/20 12:30 ABG Hemoglobin 13.4 gm/dl (14.0-18.0) L 08/25/20 12:30 ABG Oxyhemoglobin 84.0 (94-98) L 08/14/20 08:23 ABG Carboxyhemoglobin 1.5 % (0.0-5.0) 08/25/20 12:30 ABG Methemoglobin 0.5 % (0.0-1.5) 08/25/20 12:30 ABG Sodium 139.2 mmol/L (136.0-145.0) 08/14/20 08:23 ABG Potassium 4.5 mmol/L (3.40-4.50) 08/14/20 08:23 ABG Chloride 99.0 mmol/L (98-107) 08/14/20 08:23 ABG Glucose 141 mg/dL (65-95) H 08/14/20 08:23 VBG pH 7.303 (7.320-7.420) L 08/10/20 08:29 Oxyhemoglobin 93.0 % (95.0-99.0) L 08/25/20 12:30 Carboxyhemoglobin 0.9 (0.5-1.5) 08/14/20 08:23 FiO2 80 % 08/25/20 12:30 FiO2 % 100 08/14/20 08:23 Sodium 137 mmol/L (137-145) 09/11/20 05:53 Potassium 4.3 mmol/L (3.6-5.0) 09/11/20 05:53 Chloride 94.9 mmol/L (98-107) L 09/11/20 05:53 Carbon Dioxide 32 mmol/L (22-30) H 09/11/20 05:53 Anion Gap 14 mmol/L 09/11/20 05:53 BUN 18 mg/dL (9-20) 09/11/20 05:53 Creatinine 0.7 mg/dL (0.8-1.3) L 09/11/20 05:53 Estimated GFR > 60 ml/min 09/11/20 05:53 BUN/Creatinine Ratio 26 % 09/11/20 05:53 Glucose 137 mg/dL (75-100) H 09/11/20 05:53 POC Glucose 151 mg/dL (70-105) H 08/21/20 11:17 Hemoglobin A1c 6.1 % (4-6) H 08/11/20 05:39 Lactic Acid 0.80 mmol/L (0.7-2.0) 08/10/20 11:18 Calcium 9.4 mg/dL (8.4-10.2) 09/11/20 05:53 Magnesium 2.30 mg/dL (1.7-2.3) 09/10/20 08:01 Ferritin 719.2 ng/mL (30.0-300.0) H 09/10/20 10:24 Total Bilirubin 0.50 mg/dL (0.1-1.2) 08/18/20 05:13 AST 50 units/L (5-40) H 08/18/20 05:13 ALT 50 units/L (7-56) 08/18/20 05:13 Alkaline Phosphatase 103 units/L (35-129) 08/18/20 05:13 Lactate Dehydrogenase 495 units/L (91-180) H 09/10/20 10:24 C-Reactive Protein 0.00 mg/dL (0.00-1.30) 09/10/20 10:24 NT-Pro-B Natriuret Pep 36.40 pg/mL (0-450) 08/12/20 06:29 Total Protein 6.9 g/dL (6.3-8.2) 08/18/20 05:13 Albumin 3.7 g/dL (3.9-5) L 08/18/20 05:13 Albumin/Globulin Ratio 1.1 % 08/18/20 05:13 Procalcitonin 0.08 ng/mL (<0.15) 08/21/20 13:39 TSH 1.830 mlU/mL (0.270-4.200) 08/17/20 05:06 Free T4 1.01 ng/dL (0.76-1.46) 08/17/20 05:06 Arterial Blood Glucose 141 mg/dL (65-95) H 08/14/20 08:23 Arterial Blood Ionized Calcium 4.8 mg/dL (4.6-5.3) 08/14/20 08:23 Urine Color Yellow (Yellow) 08/10/20 Unknown Urine Turbidity Cloudy (Clear) 08/10/20 Unknown Urine pH 5.0 (5.0-7.0) 08/10/20 Unknown Ur Specific [place] 1.025 (1.003-1.030) 08/10/20 Unknown Urine Protein 30 mg/dl mg/dL (Negative) 08/10/20 Unknown Urine Glucose (UA) 150 mg/dL (Negative) 08/10/20 Unknown Urine Ketones Negative mg/dL (Negative) 08/10/20 Unknown Urine Blood Negative (Negative) 08/10/20 Unknown Urine Nitrite Negative (Negative) 08/10/20 Unknown Urine Bilirubin Negative (Negative) 08/10/20 Unknown Urine Urobilinogen < 2.0 mg/dL (<2.0) 08/10/20 Unknown Ur Leukocyte Esterase Negative (Negative) 08/10/20 Unknown Urine WBC (Auto) 5.0 /HPF (0.0-6.0) 08/10/20 Unknown Urine RBC (Auto) 2.0 /HPF (0.0-6.0) 08/10/20 Unknown U Epithel Cells (Auto) 1.0 /HPF (0-13.0) 08/10/20 Unknown Urine Bacteria (Auto) 1+ /HPF (Negative) 08/10/20 Unknown Urine Mucus 3+ /HPF 08/10/20 Unknown Coronavirus (PCR) Positive (Negative) A 08/11/20 Unknown Gaytan/IV: Voiding Method Urinal Active Medications - Current Medications Current Medications: Generic Name Dose Route Start Last Admin Trade Name Freq PRN Reason Stop Dose Admin Apixaban 5 mg 08/29/20 22:00 09/10/20 21:41 Apixaban 5 Mg Tab PO 5 mg Q12HR MELANIE Administration Protocol Artificial Tears 2 drops 08/16/20 13:44 Hypromellose 0.5% Ophth Soln 15 Ml OU Q4H PRN Dry Eye(s) Ascorbic Acid 500 mg 08/12/20 10:00 09/10/20 21:41 Ascorbic Acid 500 Mg Tab PO 500 mg BID MELANIE Administration Famotidine 20 mg 08/27/20 12:00 09/10/20 21:41 Famotidine 20 Mg Tab PO 20 mg BID MELANIE Administration Methylprednisolone Sodium Succinate 40 mg 08/31/20 10:00 09/11/20 06:10 Methylprednisolone Sod Succinate 40 Mg/1 Ml Inj IV 40 mg Q8HR MELANIE Administration Sodium Chloride 10 ml 08/11/20 10:00 09/10/20 21:41 Sodium Chloride 0.9% 10 Ml Flush Syringe IV 10 ml BID MELANIE Administration Zinc Sulfate 220 mg 08/12/20 12:00 09/10/20 09:53 Zinc Sulfate 220 Mg Cap PO 220 mg QDAY MELANIE Administration Nutrition/Malnutrition Assess - Dietary Evaluation Nutrition/Malnutrition Findings: Nutrition Notes Start: 08/17/20 10:49 Freq: Status: Active Protocol: Document 09/08/20 13:30 CW (Rec: 09/08/20 13:38 CW [id number]) Nutrition Notes Initial or Follow up Reassessment Other Pertinent Diagnosis COVID-19 (+), pneu, RLE DVT, sinus bradycardia Current Diet Regular Labs/Tests No new labs Pertinent Medications solumedrol Height 5 ft 11 in Weight 131.7 kg [place] Body Weight (kg) 78.18 BMI 40.4 Weight Status Morbidly Obese Subjective/Other Information F/U for intakes and ONS. Pt eating 100% of meals. Skin remains intact Percent of energy/protein needs met: 100%/100% Burn Absent Trauma Absent Cultural/Ethnic/Anglican Belief Requests salads with chicken Current % PO Good (75-100%) Minimum of two criteria No #1 Nutrition Diagnosis Inadequate oral intake Diagnosis Progress(for reassessment Resolved documentation) Is patient on ventilator? No Is Patient Ambulatory and/or Out of Bed No REE-([facility]-confined to bed) 2766.156 Kcal/Kg value to use for calculation 16 Approximate Energy Requirements Using 2107 kcal/Kg Calculation Used for Recommendations Kcal/kg Additional Notes Pro needs 0.8-1g/kg adjBW: 90- 113g/day Fluid needs 1ml/kcal Nutrition Intervention Change Diet Order: Continue current diet as tolerated Add Supplement/Snack (indicate name/kcal Ensure High Protein QD /protein ) Provides kCal: 160 Provides Protein (gm) 16 Goal #1 Stable PO intakes Goal #2 PO intake of meals plus ONS to meet at least 75% energy and pro needs Anticipated Discharge Needs: Regular Diet Follow-Up By: 09/15/20 Additional Comments F/U for stable intakes
[2020-09-11] MEDS: FAMOTIDINE 20 MG TAB PO SCH ×2 (09:02→23:22)
[2020-09-11] MEDS: APIXABAN 5 MG TAB PO SCH ×2 (09:02→23:21)
[2020-09-11] MEDS: ZINC SULFATE 220 MG CAP PO SCH (09:03)
[2020-09-11] MEDS: ASCORBIC ACID 500 MG TAB PO SCH ×2 (09:03→23:22)
--- NOTE | 2020-09-11 12:41 | Progress Note ---
Assessment and Plan 30 y/o morbidly obese male with acute respiratory failure secondary to COVID 19 pneumonia. now found to have DVT in lower ext. 09/11/20: Will drop steroids to q12 starting today. Prone as possible. Lasix today again (40). 09/10/20: Will drop steroids starting tomorrow to 40q12. Lasix today. Continue to prone or some variation of this as tolerated. Hopeful he will continue to wean and can get patient to nasal cannula. Prognosis is still guarded. 09/08/20: Wean As tolerated. Prone as able. Hold lasix. Will check labs over the weekend. Guarded prognosis. 09/07/20: Continue steroids now especially with improvement in the last 24 hours. Hold on lasix again today. May be labs on 09/08/20 09/06/20: Will continue steroids. Likely will stop in next 48 hours as patient not having improvement. Inflammatory markers are better. Would be a good candidate for LTACH but no funding. Prone as much as tolerated. Guarded p rognosis. hold on lasix today, suggest checking labs tomorrow. 09/05/20: Lasix again today. Will continue steroids. Prne as much as tolerated. Guarded prognosis. 09/04/20: Will continue steroids given mild improvement. Prone as much as tolerated. Lasix again today. Bipap at night. 09/01/20: Continue steroids at least through the weekend. Continue to prone as much as tolerated. Lasix 40mg IV again today. BIpap QHS. Very very guarded prognosis. He has been hanging out in the high 80's low 90's for weeks now. 08/31/20: Going to place patient back on steroids. Will do solumedrol 40q8 at least for the next 48-72 hours to see if this helps. Checked stat labs this morning to evaluate renal function and potassium levels before anymore lasix is given. Continue to prone as tolerated and bipap QHS. Prognosis remains guarded. 08/30/20: Proning is a must. Will give lasix 40 today. Continue anticoagulation. Prognosis remians very very guarded. Avoid intubation at all costs. 08/29/20: Continue to prone as tolerated during the day and sleep prone at night. HOld on lasix today. Continue anticoagulation. Guarded prognosis. 08/28/20: Continue to prone as tolerated. Today will give lasix 40 to see if this helps. Will discuss with cardiology about echo. Clinically patient looks the same and not in distress. If PE is present, likely not large enough for EKOS. Given his high O2 requirement, prefer not to try CTA at this time as I feel the risks outweigh the benefits. 08/27/20: Long discussion with patient again at bedside today. May need to consider repeat ECHO to look for right heart strain. We know he had VTE in the lower ext but never had to oppurtunity to truly rule him out for PE. Cousin who is an [employer] in outpatient setting at [place] asked some questions so I spoke with her via the phone. She is going to help encourage proning. Will give more lasix t angélica. Very very guarded prognosis. 08/26/20: Pulm status is more stable today compared to yesterday. Continue bipap PRN and QHS. Will give IV lasix again today. Prognosis still remains very guarded. 08/25/20: Placed back on bipap this am secondary to desaturations and lower mental state than before. Patient has been stable and making improvements but now seems to be headed in the wrong direction. Will monitor very closely as he is a high risk for intubation and bad outcomes. Very very guarded prognosis. Will give lasix today. 08/24/20: Encouraged more proning. Continue BIpap QHS and PRN. unfortunately, no funding, patient would be a good LTACH candidate as he will likely take a lo ng time to wean from HFNC. 08/23/20: No new recs. Proning is metcalf. Will continue to follow. Appreciate ID recs and help. 08/22/20: Bipap PRN and QHS. Will given lasix today. Prone as tolerated. PT continues. Slight improvement. Will continue to follow. 08/21/20: Bipap PRN and QHS. Hold on lasix today. Continue to prone as much as tolerated. Will order PT consult. 08/18/20: Bipap pRN and QHS. More lasix today. Prone as tolerated during the day and sleep prone at night. Continue to try to hold off on intubation. Guarded prognosis. 08/17/20: Continue anticoagulation. Still trying to prevent intubation however will do electively if and when needed to prevent and emergent situation as patient will likely be difficult given neck and body habitus. Continue prone as tolerated. Steroids and remdesivir. 08/16/20: Anticoagulation. Prone as tolerated. Wean bipap as tolerated. Pro gnosis remains guarded. Trying to prevent intubation given poor outcomes associated with mechanically ventilated obese COVID patients. 08/15/20: Continue therapeutic anticoagulation. No current indication for vascular consult given no evidence of right heart strain on echo. CT would only be beneficial if we thought it would show large enough clot to warrant EKOS and with no evidence of strain, I doubt that will be the case. Continue proning as much as tolerated. Spoke with mother over the phone to update her. Patient also got actemra on yesterday as well. Prognosis remains guarded 08/14/20: Will accept sats in the mid 80's as long as mental state and work of breathing do not change. AGree with lasix therapy. Found to have large DVT on right. Spoke with [facility] and asked them to order stat echo to look for right heart strain, and if present may need to consider echos. Await echo before vascular consult. Prone if possible. Long discussion with mother on phone. Gave her a list of the meds he is on and what our current plan is. Also very candid with her and son at bedside that the mortality rate with COVID is very very high. 08/13/20: Lasix again today. Continue to alternate between HFNC with NRB and bipap. Prognosis is very very guarded. Very very guarded to poor prognosis given CXR appearance, and body habitus, along with rapid decline in self sustaning oxygen levels. Agree with lasix and increase in steroids. Must prone. Very high likelihood for mechanical ventilation which would carry a high mortality for patient. Will continue to follow. No additional IVF's unless indicated. Subjective Date of service: 09/11/20 Principal diagnosis: COVID Interval history: No acute events. Sitting up in chair. STill on HFNC at 30/60 with sats in the low 90's. Objective Vital Signs - 12hr 09/11/20 09/11/20 09/11/20 01:00 01:36 02:00 Temperature Pulse Rate 78 68 70 Pulse Rate [ From Monitor] Respiratory 10 L 22 11 L Rate Blood Pressure 151/96 125/72 140/93 O2 Sat by Pulse 99 100 99 Oximetry 09/11/20 09/11/20 09/11/20 03:00 04:00 04:10 Temperature 98.5 F Pulse Rate 58 L 70 57 L Pulse Rate [ 58 L From Monitor] Respiratory 13 11 L Rate Blood Pressure 125/79 125/79 O2 Sat by Pulse 95 100 Oximetry 09/11/20 09/11/20 09/11/20 05:00 06:00 07:00 Temperature Pulse Rate 61 58 L 57 L Pulse Rate [ From Monitor] Respiratory 10 L 11 L 11 L Rate Blood Pressure 142/86 124/76 134/81 O2 Sat by Pulse 98 97 97 Oximetry 09/11/20 09/11/20 09/11/20 08:00 09:00 10:00 Temperature 98.1 F Pulse Rate 66 67 66 Pulse Rate [ 92 H From Monitor] Respiratory 14 14 10 L Rate Blood Pressure 138/89 135/85 125/69 O2 Sat by Pulse 94 100 92 Oximetry 09/11/20 09/11/20 10:49 11:00 Temperature Pulse Rate 82 Pulse Rate [ From Monitor] Respiratory 11 L Rate Blood Pressure 133/71 O2 Sat by Pulse 97 95 Oximetry Constitutional: no acute distress, alert Eyes: non-icteric ENT: oropharynx moist Neck: supple Effort: normal Ascultation: Bilateral: clear Cardiovascular: regular rate and rhythm (no mrg) Gastrointestinal: normoactive bowel sounds, soft, non-distended Integumentary: normal Extremities: no cyanosis, no edema, pink and warm Neurologic: normal mental status, non-focal exam Psychiatric: mood appropriate, affect normal CBC and BMP: 09/11/20 05:53 09/11/20 05:53 ABG, PT/INR, D-dimer: ABG ABG pH 7.313 pH Units (7.350-7.450) L 08/25/20 12:30 POC ABG pCO2 46.9 mmHg (32.0-48.0) 08/14/20 08:23 ABG pCO2 67.2 mm Hg 08/25/20 12:30 POC ABG pO2 50.0 mmHg (83-108) L 08/14/20 08:23 ABG pO2 76.2 mm Hg (80.0-90.0) L 08/25/20 12:30 POC ABG HCO3 31.4 08/14/20 08:23 ABG O2 Saturation 94.9 % (95.0-99.0) L 08/25/20 12:30 PT/INR, D-dimer PT 12.6 Sec. (12.2-14.9) 08/10/20 08:29 INR 0.96 (0.87-1.13) 08/10/20 08:29 D-Dimer 548.23 ng/mlDDU (0-234) H 09/10/20 10:24 Abnormal lab findings: Abnormal Labs 08/10/20 08/10/20 08/10/20 08:29 08:29 08:29 WBC Lymph % (Auto) [place] % (Auto) 8.4 H Lymph # (Auto) [place] # (Auto) Seg Neutrophils % Seg Neuts % (Manual) Lymphocytes % (Manual) Seg Neutrophils # Seg Neutrophils # Man Lymphocytes # (Manual) Monocytes # (Manual) D-Dimer ABG pH POC ABG pCO2 POC ABG pO2 ABG pO2 ABG HCO3 ABG O2 Saturation ABG Base Excess ABG Hemoglobin ABG Oxyhemoglobin ABG Potassium ABG Glucose VBG pH 7.303 L Oxyhemoglobin Sodium Potassium Chloride Carbon Dioxide BUN Creatinine Glucose 132 H POC Glucose Hemoglobin A1c Magnesium Ferritin AST Lactate Dehydrogenase C-Reactive Protein Albumin Arterial Blood Glucose Coronavirus (PCR) 08/11/20 08/11/20 08/11/20 05:39 05:39 05:39 WBC Lymph % (Auto) 12.5 L [place] % (Auto) Lymph # (Auto) [place] # (Auto) Seg Neutrophils % 84.2 H Seg Neuts % (Manual) Lymphocytes % (Manual) Seg Neutrophils # 9.1 H Seg Neutrophils # Man Lymphocytes # (Manual) Monocytes # (Manual) D-Dimer ABG pH POC ABG pCO2 POC ABG pO2 ABG pO2 ABG HCO3 ABG O2 Saturation ABG Base Excess ABG Hemoglobin ABG Oxyhemoglobin ABG Potassium ABG Glucose VBG pH Oxyhemoglobin Sodium Potassium Chloride Carbon Dioxide BUN Creatinine Glucose 125 H POC Glucose Hemoglobin A1c 6.1 H Magnesium Ferritin AST Lactate Dehydrogenase C-Reactive Protein Albumin Arterial Blood Glucose Coronavirus (PCR) 08/11/20 08/11/20 08/11/20 18:58 18:58 18:58 WBC Lymph % (Auto) [place] % (Auto) Lymph # (Auto) [place] # (Auto) Seg Neutrophils % Seg Neuts % (Manual) Lymphocytes % (Manual) Seg Neutrophils # Seg Neutrophils # Man Lymphocytes # (Manual) Monocytes # (Manual) D-Dimer 464.84 H ABG pH POC ABG pCO2 POC ABG pO2 ABG pO2 ABG HCO3 ABG O2 Saturation ABG Base Excess ABG Hemoglobin ABG Oxyhemoglobin ABG Potassium ABG Glucose VBG pH Oxyhemoglobin Sodium Potassium Chloride Carbon Dioxide BUN Creatinine Glucose POC Glucose Hemoglobin A1c Magnesium Ferritin 528.7 H AST Lactate Dehydrogenase 637 H C-Reactive Protein 11.30 H Albumin Arterial Blood Glucose Coronavirus (PCR) 08/11/20 08/11/20 08/12/20 19:08 Unknown 06:29 WBC 11.2 H Lymph % (Auto) 8.6 L [place] % (Auto) Lymph # (Auto) 1.0 L [place] # (Auto) Seg Neutrophils % 88.3 H Seg Neuts % (Manual) Lymphocytes % (Manual) Seg Neutrophils # 9.8 H Seg Neutrophils # Man Lymphocytes # (Manual) Monocytes # (Manual) D-Dimer ABG pH POC ABG pCO2 POC ABG pO2 ABG pO2 ABG HCO3 ABG O2 Saturation ABG Base Excess ABG Hemoglobin ABG Oxyhemoglobin ABG Potassium ABG Glucose VBG pH Oxyhemoglobin Sodium Potassium Chloride Carbon Dioxide BUN Creatinine Glucose 161 H POC Glucose Hemoglobin A1c Magnesium Ferritin AST Lactate Dehydrogenase C-Reactive Protein Albumin Arterial Blood Glucose Coronavirus (PCR) Positive A 08/12/20 08/12/20 08/12/20 06:29 06:29 06:29 WBC Lymph % (Auto) [place] % (Auto) Lymph # (Auto) [place] # (Auto) Seg Neutrophils % Seg Neuts % (Manual) Lymphocytes % (Manual) Seg Neutrophils # Seg Neutrophils # Man Lymphocytes # (Manual) Monocytes # (Manual) D-Dimer 830.34 H ABG pH POC ABG pCO2 POC ABG pO2 ABG pO2 ABG HCO3 ABG O2 Saturation ABG Base Excess ABG Hemoglobin ABG Oxyhemoglobin ABG Potassium ABG Glucose VBG pH Oxyhemoglobin Sodium Potassium Chloride Carbon Dioxide 31 H BUN Creatinine Glucose 138 H POC Glucose Hemoglobin A1c Magnesium Ferritin 572.6 H AST 42 H Lactate Dehydrogenase 706 H C-Reactive Protein 17.30 H Albumin 3.7 L Arterial Blood Glucose Coronavirus (PCR) 08/12/20 08/12/20 08/12/20 13:21 14:55 21:59 WBC Lymph % (Auto) [place] % (Auto) Lymph # (Auto) [place] # (Auto) Seg Neutrophils % Seg Neuts % (Manual) Lymphocytes % (Manual) Seg Neutrophils # Seg Neutrophils # Man Lymphocytes # (Manual) Monocytes # (Manual) D-Dimer ABG pH 7.315 L POC ABG pCO2 57.1 H POC ABG pO2 47.8 L ABG pO2 65.8 L ABG HCO3 31.4 H ABG O2 Saturation 91.7 L ABG Base Excess ABG Hemoglobin 19.3 H ABG Oxyhemoglobin ABG Potassium 4.9 H ABG Glucose 182 H VBG pH Oxyhemoglobin 89.7 L Sodium Potassium Chloride Carbon Dioxide BUN Creatinine Glucose POC Glucose 142 H Hemoglobin A1c Magnesium Ferritin AST Lactate Dehydrogenase C-Reactive Protein Albumin Arterial Blood Glucose 182 H Coronavirus (PCR) 08/13/20 08/13/20 08/13/20 05:35 05:35 12:11 WBC 12.0 H Lymph % (Auto) 8.1 L [place] % (Auto) Lymph # (Auto) 1.0 L [place] # (Auto) Seg Neutrophils % 88.0 H Seg Neuts % (Manual) Lymphocytes % (Manual) Seg Neutrophils # 10.5 H Seg Neutrophils # Man Lymphocytes # (Manual) Monocytes # (Manual) D-Dimer ABG pH POC ABG pCO2 POC ABG pO2 ABG pO2 ABG HCO3 ABG O2 Saturation ABG Base Excess ABG Hemoglobin ABG Oxyhemoglobin ABG Potassium ABG Glucose VBG pH Oxyhemoglobin Sodium Potassium 5.1 H Chloride Carbon Dioxide 31 H BUN 25 H Creatinine Glucose 174 H POC Glucose 154 H Hemoglobin A1c Magnesium Ferritin AST 41 H Lactate Dehydrogenase 996 H C-Reactive Protein Albumin 3.8 L Arterial Blood Glucose Coronavirus (PCR) 08/13/20 08/13/20 08/14/20 16:18 23:24 05:21 WBC 14.2 H Lymph % (Auto) 8.2 L [place] % (Auto) Lymph # (Auto) [place] # (Auto) 0.9 H Seg Neutrophils % 85.4 H Seg Neuts % (Manual) Lymphocytes % (Manual) Seg Neutrophils # 12.2 H Seg Neutrophils # Man Lymphocytes # (Manual) Monocytes # (Manual) D-Dimer ABG pH POC ABG pCO2 POC ABG pO2 ABG pO2 ABG HCO3 ABG O2 Saturation ABG Base Excess ABG Hemoglobin ABG Oxyhemoglobin ABG Potassium ABG Glucose VBG pH Oxyhemoglobin Sodium Potassium Chloride Carbon Dioxide BUN Creatinine Glucose POC Glucose 188 H 127 H Hemoglobin A1c Magnesium Ferritin AST Lactate Dehydrogenase C-Reactive Protein Albumin Arterial Blood Glucose Coronavirus (PCR) 08/14/20 08/14/20 08/14/20 05:21 05:21 05:21 WBC Lymph % (Auto) [place] % (Auto) Lymph # (Auto) [place] # (Auto) Seg Neutrophils % Seg Neuts % (Manual) Lymphocytes % (Manual) Seg Neutrophils # Seg Neutrophils # Man Lymphocytes # (Manual) Monocytes # (Manual) D-Dimer > 42624 H ABG pH POC ABG pCO2 POC ABG pO2 ABG pO2 ABG HCO3 ABG O2 Saturation ABG Base Excess ABG Hemoglobin ABG Oxyhemoglobin ABG Potassium ABG Glucose VBG pH Oxyhemoglobin Sodium Potassium Chloride Carbon Dioxide 32 H 33 H BUN 26 H 26 H Creatinine Glucose 152 H 156 H POC Glucose Hemoglobin A1c Magnesium Ferritin AST 53 H 54 H Lactate Dehydrogenase 1249 H C-Reactive Protein 9.90 H Albumin 3.7 L 3.7 L Arterial Blood Glucose Coronavirus (PCR) 08/14/20 08/14/20 08/14/20 05:21 05:58 08:23 WBC Lymph % (Auto) [place] % (Auto) Lymph # (Auto) [place] # (Auto) Seg Neutrophils % Seg Neuts % (Manual) Lymphocytes % (Manual) Seg Neutrophils # Seg Neutrophils # Man Lymphocytes # (Manual) Monocytes # (Manual) D-Dimer ABG pH POC ABG pCO2 POC ABG pO2 50.0 L ABG pO2 ABG HCO3 ABG O2 Saturation ABG Base Excess ABG Hemoglobin ABG Oxyhemoglobin 84.0 L ABG Potassium ABG Glucose 141 H VBG pH Oxyhemoglobin Sodium Potassium Chloride Carbon Dioxide BUN Creatinine Glucose POC Glucose 139 H Hemoglobin A1c Magnesium Ferritin 1198.0 H AST Lactate Dehydrogenase C-Reactive Protein Albumin Arterial Blood Glucose 141 H Coronavirus (PCR) 08/15/20 08/15/20 08/16/20 05:16 05:16 05:26 WBC 13.7 H 17.7 H Lymph % (Auto) 8.2 L [place] % (Auto) Lymph # (Auto) [place] # (Auto) Seg Neutrophils % 86.2 H Seg Neuts % (Manual) 91.0 H 88.0 H Lymphocytes % (Manual) 7.0 L 9.0 L Seg Neutrophils # 15.3 H Seg Neutrophils # Man 12.5 H 15.6 H Lymphocytes # (Manual) 1.0 L Monocytes # (Manual) D-Dimer ABG pH POC ABG pCO2 POC ABG pO2 ABG pO2 ABG HCO3 ABG O2 Saturation ABG Base Excess ABG Hemoglobin ABG Oxyhemoglobin ABG Potassium ABG Glucose VBG pH Oxyhemoglobin Sodium Potassium Chloride Carbon Dioxide 32 H BUN 29 H Creatinine Glucose 150 H POC Glucose Hemoglobin A1c Magnesium Ferritin AST Lactate Dehydrogenase 1150 H C-Reactive Protein Albumin 3.5 L Arterial Blood Glucose Coronavirus (PCR) 08/16/20 08/16/20 08/16/20 05:26 05:26 05:26 WBC Lymph % (Auto) [place] % (Auto) Lymph # (Auto) [place] # (Auto) Seg Neutrophils % Seg Neuts % (Manual) Lymphocytes % (Manual) Seg Neutrophils # Seg Neutrophils # Man Lymphocytes # (Manual) Monocytes # (Manual) D-Dimer > 76519 H ABG pH POC ABG pCO2 POC ABG pO2 ABG pO2 ABG HCO3 ABG O2 Saturation ABG Base Excess ABG Hemoglobin ABG Oxyhemoglobin ABG Potassium ABG Glucose VBG pH Oxyhemoglobin Sodium Potassium 5.2 H Chloride Carbon Dioxide BUN 25 H Creatinine Glucose 163 H POC Glucose Hemoglobin A1c Magnesium Ferritin 1013.0 H AST Lactate Dehydrogenase C-Reactive Protein 4.00 H Albumin 3.6 L Arterial Blood Glucose Coronavirus (PCR) 08/17/20 08/17/20 08/17/20 05:06 05:06 07:51 WBC 20.7 H Lymph % (Auto) [place] % (Auto) Lymph # (Auto) [place] # (Auto) Seg Neutrophils % Seg Neuts % (Manual) 86.0 H Lymphocytes % (Manual) 7.0 L Seg Neutrophils # Seg Neutrophils # Man 17.8 H Lymphocytes # (Manual) Monocytes # (Manual) 1.2 H D-Dimer ABG pH POC ABG pCO2 POC ABG pO2 ABG pO2 ABG HCO3 ABG O2 Saturation ABG Base Excess ABG Hemoglobin ABG Oxyhemoglobin ABG Potassium ABG Glucose VBG pH Oxyhemoglobin Sodium Potassium Chloride 96.5 L Carbon Dioxide 31 H BUN 29 H Creatinine Glucose 121 H POC Glucose 110 H Hemoglobin A1c Magnesium Ferritin AST 46 H Lactate Dehydrogenase C-Reactive Protein Albumin 3.7 L Arterial Blood Glucose Coronavirus (PCR) 08/17/20 08/17/20 08/18/20 11:42 21:45 05:13 WBC Lymph % (Auto) [place] % (Auto) Lymph # (Auto) [place] # (Auto) Seg Neutrophils % Seg Neuts % (Manual) Lymphocytes % (Manual) Seg Neutrophils # Seg Neutrophils # Man Lymphocytes # (Manual) Monocytes # (Manual) D-Dimer > 1000 H ABG pH POC ABG pCO2 POC ABG pO2 ABG pO2 ABG HCO3 ABG O2 Saturation ABG Base Excess ABG Hemoglobin ABG Oxyhemoglobin ABG Potassium ABG Glucose VBG pH Oxyhemoglobin Sodium Potassium Chloride Carbon Dioxide BUN Creatinine Glucose POC Glucose 122 H 143 H Hemoglobin A1c Magnesium Ferritin AST Lactate Dehydrogenase C-Reactive Protein Albumin Arterial Blood Glucose Coronavirus (PCR) 08/18/20 08/18/20 08/21/20 05:13 05:13 11:17 WBC Lymph % (Auto) [place] % (Auto) Lymph # (Auto) [place] # (Auto) Seg Neutrophils % Seg Neuts % (Manual) Lymphocytes % (Manual) Seg Neutrophils # Seg Neutrophils # Man Lymphocytes # (Manual) Monocytes # (Manual) D-Dimer ABG pH POC ABG pCO2 POC ABG pO2 ABG pO2 ABG HCO3 ABG O2 Saturation ABG Base Excess ABG Hemoglobin ABG Oxyhemoglobin ABG Potassium ABG Glucose VBG pH Oxyhemoglobin Sodium 133 L Potassium Chloride 94.7 L Carbon Dioxide BUN 33 H Creatinine Glucose 110 H POC Glucose 151 H Hemoglobin A1c Magnesium Ferritin 979.8 H AST 50 H Lactate Dehydrogenase C-Reactive Protein Albumin 3.7 L Arterial Blood Glucose Coronavirus (PCR) 08/21/20 08/21/20 08/21/20 13:39 13:39 15:55 WBC Lymph % (Auto) [place] % (Auto) Lymph # (Auto) [place] # (Auto) Seg Neutrophils % Seg Neuts % (Manual) Lymphocytes % (Manual) Seg Neutrophils # Seg Neutrophils # Man Lymphocytes # (Manual) Monocytes # (Manual) D-Dimer 6731.66 H ABG pH POC ABG pCO2 POC ABG pO2 ABG pO2 ABG HCO3 ABG O2 Saturation ABG Base Excess ABG Hemoglobin ABG Oxyhemoglobin ABG Potassium ABG Glucose VBG pH Oxyhemoglobin Sodium Potassium Chloride Carbon Dioxide BUN Creatinine Glucose POC Glucose Hemoglobin A1c Magnesium Ferritin 1019.0 H AST Lactate Dehydrogenase 1251 H C-Reactive Protein Albumin Arterial Blood Glucose Coronavirus (PCR) 08/22/20 08/22/20 08/25/20 05:23 05:23 12:30 WBC 24.7 H Lymph % (Auto) [place] % (Auto) Lymph # (Auto) [place] # (Auto) Seg Neutrophils % Seg Neuts % (Manual) Lymphocytes % (Manual) Seg Neutrophils # Seg Neutrophils # Man Lymphocytes # (Manual) Monocytes # (Manual) D-Dimer ABG pH 7.313 L POC ABG pCO2 POC ABG pO2 ABG pO2 76.2 L ABG HCO3 33.3 H ABG O2 Saturation 94.9 L ABG Base Excess 5.0 H ABG Hemoglobin 13.4 L ABG Oxyhemoglobin ABG Potassium ABG Glucose VBG pH Oxyhemoglobin 93.0 L Sodium 136 L Potassium Chloride 96.3 L Carbon Dioxide BUN 24 H Creatinine 0.7 L Glucose 115 H POC Glucose Hemoglobin A1c Magnesium Ferritin AST Lactate Dehydrogenase C-Reactive Protein Albumin Arterial Blood Glucose Coronavirus (PCR) 08/25/20 08/25/20 08/25/20 16:08 16:08 16:08 WBC Lymph % (Auto) [place] % (Auto) Lymph # (Auto) [place] # (Auto) Seg Neutrophils % Seg Neuts % (Manual) Lymphocytes % (Manual) Seg Neutrophils # Seg Neutrophils # Man Lymphocytes # (Manual) Monocytes # (Manual) D-Dimer 4487.76 H ABG pH POC ABG pCO2 POC ABG pO2 ABG pO2 ABG HCO3 ABG O2 Saturation ABG Base Excess ABG Hemoglobin ABG Oxyhemoglobin ABG Potassium ABG Glucose VBG pH Oxyhemoglobin Sodium Potassium Chloride Carbon Dioxide BUN Creatinine Glucose POC Glucose Hemoglobin A1c Magnesium Ferritin 961.4 H AST Lactate Dehydrogenase 959 H C-Reactive Protein Albumin Arterial Blood Glucose Coronavirus (PCR) 08/26/20 08/26/20 08/31/20 07:11 07:11 10:56 WBC Lymph % (Auto) [place] % (Auto) 9.8 H Lymph # (Auto) [place] # (Auto) 1.0 H Seg Neutrophils % Seg Neuts % (Manual) Lymphocytes % (Manual) Seg Neutrophils # Seg Neutrophils # Man Lymphocytes # (Manual) Monocytes # (Manual) D-Dimer ABG pH POC ABG pCO2 POC ABG pO2 ABG pO2 ABG HCO3 ABG O2 Saturation ABG Base Excess ABG Hemoglobin ABG Oxyhemoglobin ABG Potassium ABG Glucose VBG pH Oxyhemoglobin Sodium 135 L Potassium Chloride 95.7 L 97.4 L Carbon Dioxide 33 H 34 H BUN Creatinine 0.6 L Glucose 109 H POC Glucose Hemoglobin A1c Magnesium 2.40 H Ferritin AST Lactate Dehydrogenase C-Reactive Protein Albumin Arterial Blood Glucose Coronavirus (PCR) 09/05/20 09/05/20 09/06/20 07:11 07:11 10:43 WBC 14.0 H Lymph % (Auto) 10.8 L [place] % (Auto) Lymph # (Auto) [place] # (Auto) Seg Neutrophils % 82.6 H Seg Neuts % (Manual) Lymphocytes % (Manual) Seg Neutrophils # 11.6 H Seg Neutrophils # Man Lymphocytes # (Manual) Monocytes # (Manual) D-Dimer 877.51 H ABG pH POC ABG pCO2 POC ABG pO2 ABG pO2 ABG HCO3 ABG O2 Saturation ABG Base Excess ABG Hemoglobin ABG Oxyhemoglobin ABG Potassium ABG Glucose VBG pH Oxyhemoglobin Sodium Potassium Chloride Carbon Dioxide 36 H BUN 21 H Creatinine 0.6 L Glucose 123 H POC Glucose Hemoglobin A1c Magnesium Ferritin AST Lactate Dehydrogenase C-Reactive Protein Albumin Arterial Blood Glucose Coronavirus (PCR) 09/06/20 09/06/20 09/10/20 10:43 10:43 08:01 WBC Lymph % (Auto) [place] % (Auto) Lymph # (Auto) [place] # (Auto) Seg Neutrophils % Seg Neuts % (Manual) Lymphocytes % (Manual) Seg Neutrophils # Seg Neutrophils # Man Lymphocytes # (Manual) Monocytes # (Manual) D-Dimer ABG pH POC ABG pCO2 POC ABG pO2 ABG pO2 ABG HCO3 ABG O2 Saturation ABG Base Excess ABG Hemoglobin ABG Oxyhemoglobin ABG Potassium ABG Glucose VBG pH Oxyhemoglobin Sodium Potassium Chloride Carbon Dioxide 32 H BUN Creatinine 0.7 L Glucose 140 H POC Glucose Hemoglobin A1c Magnesium Ferritin 666.4 H AST Lactate Dehydrogenase 607 H C-Reactive Protein Albumin Arterial Blood Glucose Coronavirus (PCR) 09/10/20 09/10/20 09/10/20 10:24 10:24 10:24 WBC Lymph % (Auto) [place] % (Auto) Lymph # (Auto) [place] # (Auto) Seg Neutrophils % Seg Neuts % (Manual) Lymphocytes % (Manual) Seg Neutrophils # Seg Neutrophils # Man Lymphocytes # (Manual) Monocytes # (Manual) D-Dimer 548.23 H ABG pH POC ABG pCO2 POC ABG pO2 ABG pO2 ABG HCO3 ABG O2 Saturation ABG Base Excess ABG Hemoglobin ABG Oxyhemoglobin ABG Potassium ABG Glucose VBG pH Oxyhemoglobin Sodium Potassium Chloride Carbon Dioxide BUN Creatinine Glucose POC Glucose Hemoglobin A1c Magnesium Ferritin 719.2 H AST Lactate Dehydrogenase 495 H C-Reactive Protein Albumin Arterial Blood Glucose Coronavirus (PCR) 09/11/20 09/11/20 05:53 05:53 WBC 17.7 H Lymph % (Auto) 11.2 L [place] % (Auto) Lymph # (Auto) [place] # (Auto) 0.9 H Seg Neutrophils % 83.1 H Seg Neuts % (Manual) Lymphocytes % (Manual) Seg Neutrophils # 14.7 H Seg Neutrophils # Man Lymphocytes # (Manual) Monocytes # (Manual) D-Dimer ABG pH POC ABG pCO2 POC ABG pO2 ABG pO2 ABG HCO3 ABG O2 Saturation ABG Base Excess ABG Hemoglobin ABG Oxyhemoglobin ABG Potassium ABG Glucose VBG pH Oxyhemoglobin Sodium Potassium Chloride 94.9 L Carbon Dioxide 32 H BUN Creatinine 0.7 L Glucose 137 H POC Glucose Hemoglobin A1c Magnesium Ferritin AST Lactate Dehydrogenase C-Reactive Protein Albumin Arterial Blood Glucose Coronavirus (PCR)
[2020-09-11] MEDS ORDERED: FUROSEMIDE 40 MG/4 ML INJ IV SCH (13:30)
[2020-09-12] MEDS: methylPREDNISolone Sod Succinate 40 MG/1 ML INJ IV SCH ×2 (05:14→22:22)
[2020-09-12] MEDS: FAMOTIDINE 20 MG TAB PO SCH ×2 (10:20→22:22)
[2020-09-12] MEDS: APIXABAN 5 MG TAB PO SCH ×2 (10:21→22:22)
[2020-09-12] MEDS: ZINC SULFATE 220 MG CAP PO SCH (10:21)
[2020-09-12] MEDS ORDERED: methylPREDNISolone Sod Succinate 125 MG/2 ML INJ ONE (10:21)
--- NOTE | 2020-09-12 13:57 | Progress Note ---
Assessment and Plan - Patient Problems (1) COVID-19 Current Visit: Yes Status: Acute (2) Pneumonia Current Visit: Yes Status: Acute (3) Morbid obesity Current Visit: Yes Status: Acute (4) Sinus arrhythmia Current Visit: Yes Status: Acute Subjective Principal diagnosis: COVID Interval history: on o2. With PT. Still sob w movement Objective Vital Signs - 12hr 09/12/20 09/12/20 09/12/20 02:00 03:00 04:00 Temperature 98.7 F Pulse Rate 80 78 Pulse Rate [ 10 L From Monitor] Respiratory 15 11 L 10 L Rate Blood Pressure 143/85 146/80 146/80 O2 Sat by Pulse 98 97 98 Oximetry 09/12/20 09/12/20 09/12/20 05:00 06:00 07:00 Temperature Pulse Rate 58 L 64 61 Pulse Rate [ From Monitor] Respiratory 10 L 11 L Rate Blood Pressure 115/65 130/78 125/70 O2 Sat by Pulse 95 97 96 Oximetry 09/12/20 09/12/20 09/12/20 08:00 08:02 09:00 Temperature Pulse Rate 68 76 Pulse Rate [ From Monitor] Respiratory 11 L 18 Rate Blood Pressure 132/76 140/77 O2 Sat by Pulse 94 96 92 Oximetry 09/12/20 09/12/20 09/12/20 09:31 10:00 11:00 Temperature 97.9 F Pulse Rate 71 75 Pulse Rate [ From Monitor] Respiratory 11 L 12 Rate Blood Pressure 142/89 122/77 O2 Sat by Pulse 90 96 Oximetry 09/12/20 09/12/20 09/12/20 12:00 13:00 13:41 Temperature Pulse Rate 75 84 Pulse Rate [ From Monitor] Respiratory 11 L 13 Rate Blood Pressure 130/75 137/73 O2 Sat by Pulse 95 83 L 83 L Oximetry Constitutional: no acute distress, alert, other (obese) Eyes: non-icteric ENT: oropharynx moist Neck: supple Effort: normal Ascultation: Bilateral: clear Cardiovascular: regular rate and rhythm (no mrg) Gastrointestinal: normoactive bowel sounds, soft, non-distended Integumentary: normal Extremities: no cyanosis, no edema, pink and warm Neurologic: normal mental status, non-focal exam Psychiatric: mood appropriate, affect normal CBC and BMP: 09/11/20 05:53 09/11/20 05:53 ABG, PT/INR, D-dimer: ABG ABG pH 7.313 pH Units (7.350-7.450) L 08/25/20 12:30 POC ABG pCO2 46.9 mmHg (32.0-48.0) 08/14/20 08:23 ABG pCO2 67.2 mm Hg 08/25/20 12:30 POC ABG pO2 50.0 mmHg (83-108) L 08/14/20 08:23 ABG pO2 76.2 mm Hg (80.0-90.0) L 08/25/20 12:30 POC ABG HCO3 31.4 08/14/20 08:23 ABG O2 Saturation 94.9 % (95.0-99.0) L 08/25/20 12:30 PT/INR, D-dimer PT 12.6 Sec. (12.2-14.9) 08/10/20 08:29 INR 0.96 (0.87-1.13) 08/10/20 08:29 D-Dimer 548.23 ng/mlDDU (0-234) H 09/10/20 10:24 Abnormal lab findings: Abnormal Labs 08/10/20 08/10/20 08/10/20 08:29 08:29 08:29 WBC Lymph % (Auto) [place] % (Auto) 8.4 H Lymph # (Auto) [place] # (Auto) Seg Neutrophils % Seg Neuts % (Manual) Lymphocytes % (Manual) Seg Neutrophils # Seg Neutrophils # Man Lymphocytes # (Manual) Monocytes # (Manual) D-Dimer ABG pH POC ABG pCO2 POC ABG pO2 ABG pO2 ABG HCO3 ABG O2 Saturation ABG Base Excess ABG Hemoglobin ABG Oxyhemoglobin ABG Potassium ABG Glucose VBG pH 7.303 L Oxyhemoglobin Sodium Potassium Chloride Carbon Dioxide BUN Creatinine Glucose 132 H POC Glucose Hemoglobin A1c Magnesium Ferritin AST Lactate Dehydrogenase C-Reactive Protein Albumin Arterial Blood Glucose Coronavirus (PCR) 08/11/20 08/11/20 08/11/20 05:39 05:39 05:39 WBC Lymph % (Auto) 12.5 L [place] % (Auto) Lymph # (Auto) [place] # (Auto) Seg Neutrophils % 84.2 H Seg Neuts % (Manual) Lymphocytes % (Manual) Seg Neutrophils # 9.1 H Seg Neutrophils # Man Lymphocytes # (Manual) Monocytes # (Manual) D-Dimer ABG pH POC ABG pCO2 POC ABG pO2 ABG pO2 ABG HCO3 ABG O2 Saturation ABG Base Excess ABG Hemoglobin ABG Oxyhemoglobin ABG Potassium ABG Glucose VBG pH Oxyhemoglobin Sodium Potassium Chloride Carbon Dioxide BUN Creatinine Glucose 125 H POC Glucose Hemoglobin A1c 6.1 H Magnesium Ferritin AST Lactate Dehydrogenase C-Reactive Protein Albumin Arterial Blood Glucose Coronavirus (PCR) 08/11/20 08/11/20 08/11/20 18:58 18:58 18:58 WBC Lymph % (Auto) [place] % (Auto) Lymph # (Auto) [place] # (Auto) Seg Neutrophils % Seg Neuts % (Manual) Lymphocytes % (Manual) Seg Neutrophils # Seg Neutrophils # Man Lymphocytes # (Manual) Monocytes # (Manual) D-Dimer 464.84 H ABG pH POC ABG pCO2 POC ABG pO2 ABG pO2 ABG HCO3 ABG O2 Saturation ABG Base Excess ABG Hemoglobin ABG Oxyhemoglobin ABG Potassium ABG Glucose VBG pH Oxyhemoglobin Sodium Potassium Chloride Carbon Dioxide BUN Creatinine Glucose POC Glucose Hemoglobin A1c Magnesium Ferritin 528.7 H AST Lactate Dehydrogenase 637 H C-Reactive Protein 11.30 H Albumin Arterial Blood Glucose Coronavirus (PCR) 08/11/20 08/11/20 08/12/20 19:08 Unknown 06:29 WBC 11.2 H Lymph % (Auto) 8.6 L [place] % (Auto) Lymph # (Auto) 1.0 L [place] # (Auto) Seg Neutrophils % 88.3 H Seg Neuts % (Manual) Lymphocytes % (Manual) Seg Neutrophils # 9.8 H Seg Neutrophils # Man Lymphocytes # (Manual) Monocytes # (Manual) D-Dimer ABG pH POC ABG pCO2 POC ABG pO2 ABG pO2 ABG HCO3 ABG O2 Saturation ABG Base Excess ABG Hemoglobin ABG Oxyhemoglobin ABG Potassium ABG Glucose VBG pH Oxyhemoglobin Sodium Potassium Chloride Carbon Dioxide BUN Creatinine Glucose 161 H POC Glucose Hemoglobin A1c Magnesium Ferritin AST Lactate Dehydrogenase C-Reactive Protein Albumin Arterial Blood Glucose Coronavirus (PCR) Positive A 08/12/20 08/12/20 08/12/20 06:29 06:29 06:29 WBC Lymph % (Auto) [place] % (Auto) Lymph # (Auto) [place] # (Auto) Seg Neutrophils % Seg Neuts % (Manual) Lymphocytes % (Manual) Seg Neutrophils # Seg Neutrophils # Man Lymphocytes # (Manual) Monocytes # (Manual) D-Dimer 830.34 H ABG pH POC ABG pCO2 POC ABG pO2 ABG pO2 ABG HCO3 ABG O2 Saturation ABG Base Excess ABG Hemoglobin ABG Oxyhemoglobin ABG Potassium ABG Glucose VBG pH Oxyhemoglobin Sodium Potassium Chloride Carbon Dioxide 31 H BUN Creatinine Glucose 138 H POC Glucose Hemoglobin A1c Magnesium Ferritin 572.6 H AST 42 H Lactate Dehydrogenase 706 H C-Reactive Protein 17.30 H Albumin 3.7 L Arterial Blood Glucose Coronavirus (PCR) 08/12/20 08/12/20 08/12/20 13:21 14:55 21:59 WBC Lymph % (Auto) [place] % (Auto) Lymph # (Auto) [place] # (Auto) Seg Neutrophils % Seg Neuts % (Manual) Lymphocytes % (Manual) Seg Neutrophils # Seg Neutrophils # Man Lymphocytes # (Manual) Monocytes # (Manual) D-Dimer ABG pH 7.315 L POC ABG pCO2 57.1 H POC ABG pO2 47.8 L ABG pO2 65.8 L ABG HCO3 31.4 H ABG O2 Saturation 91.7 L ABG Base Excess ABG Hemoglobin 19.3 H ABG Oxyhemoglobin ABG Potassium 4.9 H ABG Glucose 182 H VBG pH Oxyhemoglobin 89.7 L Sodium Potassium Chloride Carbon Dioxide BUN Creatinine Glucose POC Glucose 142 H Hemoglobin A1c Magnesium Ferritin AST Lactate Dehydrogenase C-Reactive Protein Albumin Arterial Blood Glucose 182 H Coronavirus (PCR) 08/13/20 08/13/20 08/13/20 05:35 05:35 12:11 WBC 12.0 H Lymph % (Auto) 8.1 L [place] % (Auto) Lymph # (Auto) 1.0 L [place] # (Auto) Seg Neutrophils % 88.0 H Seg Neuts % (Manual) Lymphocytes % (Manual) Seg Neutrophils # 10.5 H Seg Neutrophils # Man Lymphocytes # (Manual) Monocytes # (Manual) D-Dimer ABG pH POC ABG pCO2 POC ABG pO2 ABG pO2 ABG HCO3 ABG O2 Saturation ABG Base Excess ABG Hemoglobin ABG Oxyhemoglobin ABG Potassium ABG Glucose VBG pH Oxyhemoglobin Sodium Potassium 5.1 H Chloride Carbon Dioxide 31 H BUN 25 H Creatinine Glucose 174 H POC Glucose 154 H Hemoglobin A1c Magnesium Ferritin AST 41 H Lactate Dehydrogenase 996 H C-Reactive Protein Albumin 3.8 L Arterial Blood Glucose Coronavirus (PCR) 08/13/20 08/13/20 08/14/20 16:18 23:24 05:21 WBC 14.2 H Lymph % (Auto) 8.2 L [place] % (Auto) Lymph # (Auto) [place] # (Auto) 0.9 H Seg Neutrophils % 85.4 H Seg Neuts % (Manual) Lymphocytes % (Manual) Seg Neutrophils # 12.2 H Seg Neutrophils # Man Lymphocytes # (Manual) Monocytes # (Manual) D-Dimer ABG pH POC ABG pCO2 POC ABG pO2 ABG pO2 ABG HCO3 ABG O2 Saturation ABG Base Excess ABG Hemoglobin ABG Oxyhemoglobin ABG Potassium ABG Glucose VBG pH Oxyhemoglobin Sodium Potassium Chloride Carbon Dioxide BUN Creatinine Glucose POC Glucose 188 H 127 H Hemoglobin A1c Magnesium Ferritin AST Lactate Dehydrogenase C-Reactive Protein Albumin Arterial Blood Glucose Coronavirus (PCR) 08/14/20 08/14/20 08/14/20 05:21 05:21 05:21 WBC Lymph % (Auto) [place] % (Auto) Lymph # (Auto) [place] # (Auto) Seg Neutrophils % Seg Neuts % (Manual) Lymphocytes % (Manual) Seg Neutrophils # Seg Neutrophils # Man Lymphocytes # (Manual) Monocytes # (Manual) D-Dimer > 69707 H ABG pH POC ABG pCO2 POC ABG pO2 ABG pO2 ABG HCO3 ABG O2 Saturation ABG Base Excess ABG Hemoglobin ABG Oxyhemoglobin ABG Potassium ABG Glucose VBG pH Oxyhemoglobin Sodium Potassium Chloride Carbon Dioxide 32 H 33 H BUN 26 H 26 H Creatinine Glucose 152 H 156 H POC Glucose Hemoglobin A1c Magnesium Ferritin AST 53 H 54 H Lactate Dehydrogenase 1249 H C-Reactive Protein 9.90 H Albumin 3.7 L 3.7 L Arterial Blood Glucose Coronavirus (PCR) 08/14/20 08/14/20 08/14/20 05:21 05:58 08:23 WBC Lymph % (Auto) [place] % (Auto) Lymph # (Auto) [place] # (Auto) Seg Neutrophils % Seg Neuts % (Manual) Lymphocytes % (Manual) Seg Neutrophils # Seg Neutrophils # Man Lymphocytes # (Manual) Monocytes # (Manual) D-Dimer ABG pH POC ABG pCO2 POC ABG pO2 50.0 L ABG pO2 ABG HCO3 ABG O2 Saturation ABG Base Excess ABG Hemoglobin ABG Oxyhemoglobin 84.0 L ABG Potassium ABG Glucose 141 H VBG pH Oxyhemoglobin Sodium Potassium Chloride Carbon Dioxide BUN Creatinine Glucose POC Glucose 139 H Hemoglobin A1c Magnesium Ferritin 1198.0 H AST Lactate Dehydrogenase C-Reactive Protein Albumin Arterial Blood Glucose 141 H Coronavirus (PCR) 08/15/20 08/15/20 08/16/20 05:16 05:16 05:26 WBC 13.7 H 17.7 H Lymph % (Auto) 8.2 L [place] % (Auto) Lymph # (Auto) [place] # (Auto) Seg Neutrophils % 86.2 H Seg Neuts % (Manual) 91.0 H 88.0 H Lymphocytes % (Manual) 7.0 L 9.0 L Seg Neutrophils # 15.3 H Seg Neutrophils # Man 12.5 H 15.6 H Lymphocytes # (Manual) 1.0 L Monocytes # (Manual) D-Dimer ABG pH POC ABG pCO2 POC ABG pO2 ABG pO2 ABG HCO3 ABG O2 Saturation ABG Base Excess ABG Hemoglobin ABG Oxyhemoglobin ABG Potassium ABG Glucose VBG pH Oxyhemoglobin Sodium Potassium Chloride Carbon Dioxide 32 H BUN 29 H Creatinine Glucose 150 H POC Glucose Hemoglobin A1c Magnesium Ferritin AST Lactate Dehydrogenase 1150 H C-Reactive Protein Albumin 3.5 L Arterial Blood Glucose Coronavirus (PCR) 08/16/20 08/16/20 08/16/20 05:26 05:26 05:26 WBC Lymph % (Auto) [place] % (Auto) Lymph # (Auto) [place] # (Auto) Seg Neutrophils % Seg Neuts % (Manual) Lymphocytes % (Manual) Seg Neutrophils # Seg Neutrophils # Man Lymphocytes # (Manual) Monocytes # (Manual) D-Dimer > 49378 H ABG pH POC ABG pCO2 POC ABG pO2 ABG pO2 ABG HCO3 ABG O2 Saturation ABG Base Excess ABG Hemoglobin ABG Oxyhemoglobin ABG Potassium ABG Glucose VBG pH Oxyhemoglobin Sodium Potassium 5.2 H Chloride Carbon Dioxide BUN 25 H Creatinine Glucose 163 H POC Glucose Hemoglobin A1c Magnesium Ferritin 1013.0 H AST Lactate Dehydrogenase C-Reactive Protein 4.00 H Albumin 3.6 L Arterial Blood Glucose Coronavirus (PCR) 08/17/20 08/17/20 08/17/20 05:06 05:06 07:51 WBC 20.7 H Lymph % (Auto) [place] % (Auto) Lymph # (Auto) [place] # (Auto) Seg Neutrophils % Seg Neuts % (Manual) 86.0 H Lymphocytes % (Manual) 7.0 L Seg Neutrophils # Seg Neutrophils # Man 17.8 H Lymphocytes # (Manual) Monocytes # (Manual) 1.2 H D-Dimer ABG pH POC ABG pCO2 POC ABG pO2 ABG pO2 ABG HCO3 ABG O2 Saturation ABG Base Excess ABG Hemoglobin ABG Oxyhemoglobin ABG Potassium ABG Glucose VBG pH Oxyhemoglobin Sodium Potassium Chloride 96.5 L Carbon Dioxide 31 H BUN 29 H Creatinine Glucose 121 H POC Glucose 110 H Hemoglobin A1c Magnesium Ferritin AST 46 H Lactate Dehydrogenase C-Reactive Protein Albumin 3.7 L Arterial Blood Glucose Coronavirus (PCR) 08/17/20 08/17/20 08/18/20 11:42 21:45 05:13 WBC Lymph % (Auto) [place] % (Auto) Lymph # (Auto) [place] # (Auto) Seg Neutrophils % Seg Neuts % (Manual) Lymphocytes % (Manual) Seg Neutrophils # Seg Neutrophils # Man Lymphocytes # (Manual) Monocytes # (Manual) D-Dimer > 1000 H ABG pH POC ABG pCO2 POC ABG pO2 ABG pO2 ABG HCO3 ABG O2 Saturation ABG Base Excess ABG Hemoglobin ABG Oxyhemoglobin ABG Potassium ABG Glucose VBG pH Oxyhemoglobin Sodium Potassium Chloride Carbon Dioxide BUN Creatinine Glucose POC Glucose 122 H 143 H Hemoglobin A1c Magnesium Ferritin AST Lactate Dehydrogenase C-Reactive Protein Albumin Arterial Blood Glucose Coronavirus (PCR) 08/18/20 08/18/20 08/21/20 05:13 05:13 11:17 WBC Lymph % (Auto) [place] % (Auto) Lymph # (Auto) [place] # (Auto) Seg Neutrophils % Seg Neuts % (Manual) Lymphocytes % (Manual) Seg Neutrophils # Seg Neutrophils # Man Lymphocytes # (Manual) Monocytes # (Manual) D-Dimer ABG pH POC ABG pCO2 POC ABG pO2 ABG pO2 ABG HCO3 ABG O2 Saturation ABG Base Excess ABG Hemoglobin ABG Oxyhemoglobin ABG Potassium ABG Glucose VBG pH Oxyhemoglobin Sodium 133 L Potassium Chloride 94.7 L Carbon Dioxide BUN 33 H Creatinine Glucose 110 H POC Glucose 151 H Hemoglobin A1c Magnesium Ferritin 979.8 H AST 50 H Lactate Dehydrogenase C-Reactive Protein Albumin 3.7 L Arterial Blood Glucose Coronavirus (PCR) 08/21/20 08/21/20 08/21/20 13:39 13:39 15:55 WBC Lymph % (Auto) [place] % (Auto) Lymph # (Auto) [place] # (Auto) Seg Neutrophils % Seg Neuts % (Manual) Lymphocytes % (Manual) Seg Neutrophils # Seg Neutrophils # Man Lymphocytes # (Manual) Monocytes # (Manual) D-Dimer 6731.66 H ABG pH POC ABG pCO2 POC ABG pO2 ABG pO2 ABG HCO3 ABG O2 Saturation ABG Base Excess ABG Hemoglobin ABG Oxyhemoglobin ABG Potassium ABG Glucose VBG pH Oxyhemoglobin Sodium Potassium Chloride Carbon Dioxide BUN Creatinine Glucose POC Glucose Hemoglobin A1c Magnesium Ferritin 1019.0 H AST Lactate Dehydrogenase 1251 H C-Reactive Protein Albumin Arterial Blood Glucose Coronavirus (PCR) 08/22/20 08/22/20 08/25/20 05:23 05:23 12:30 WBC 24.7 H Lymph % (Auto) [place] % (Auto) Lymph # (Auto) [place] # (Auto) Seg Neutrophils % Seg Neuts % (Manual) Lymphocytes % (Manual) Seg Neutrophils # Seg Neutrophils # Man Lymphocytes # (Manual) Monocytes # (Manual) D-Dimer ABG pH 7.313 L POC ABG pCO2 POC ABG pO2 ABG pO2 76.2 L ABG HCO3 33.3 H ABG O2 Saturation 94.9 L ABG Base Excess 5.0 H ABG Hemoglobin 13.4 L ABG Oxyhemoglobin ABG Potassium ABG Glucose VBG pH Oxyhemoglobin 93.0 L Sodium 136 L Potassium Chloride 96.3 L Carbon Dioxide BUN 24 H Creatinine 0.7 L Glucose 115 H POC Glucose Hemoglobin A1c Magnesium Ferritin AST Lactate Dehydrogenase C-Reactive Protein Albumin Arterial Blood Glucose Coronavirus (PCR) 08/25/20 08/25/20 08/25/20 16:08 16:08 16:08 WBC Lymph % (Auto) [place] % (Auto) Lymph # (Auto) [place] # (Auto) Seg Neutrophils % Seg Neuts % (Manual) Lymphocytes % (Manual) Seg Neutrophils # Seg Neutrophils # Man Lymphocytes # (Manual) Monocytes # (Manual) D-Dimer 4487.76 H ABG pH POC ABG pCO2 POC ABG pO2 ABG pO2 ABG HCO3 ABG O2 Saturation ABG Base Excess ABG Hemoglobin ABG Oxyhemoglobin ABG Potassium ABG Glucose VBG pH Oxyhemoglobin Sodium Potassium Chloride Carbon Dioxide BUN Creatinine Glucose POC Glucose Hemoglobin A1c Magnesium Ferritin 961.4 H AST Lactate Dehydrogenase 959 H C-Reactive Protein Albumin Arterial Blood Glucose Coronavirus (PCR) 08/26/20 08/26/20 08/31/20 07:11 07:11 10:56 WBC Lymph % (Auto) [place] % (Auto) 9.8 H Lymph # (Auto) [place] # (Auto) 1.0 H Seg Neutrophils % Seg Neuts % (Manual) Lymphocytes % (Manual) Seg Neutrophils # Seg Neutrophils # Man Lymphocytes # (Manual) Monocytes # (Manual) D-Dimer ABG pH POC ABG pCO2 POC ABG pO2 ABG pO2 ABG HCO3 ABG O2 Saturation ABG Base Excess ABG Hemoglobin ABG Oxyhemoglobin ABG Potassium ABG Glucose VBG pH Oxyhemoglobin Sodium 135 L Potassium Chloride 95.7 L 97.4 L Carbon Dioxide 33 H 34 H BUN Creatinine 0.6 L Glucose 109 H POC Glucose Hemoglobin A1c Magnesium 2.40 H Ferritin AST Lactate Dehydrogenase C-Reactive Protein Albumin Arterial Blood Glucose Coronavirus (PCR) 09/05/20 09/05/20 09/06/20 07:11 07:11 10:43 WBC 14.0 H Lymph % (Auto) 10.8 L [place] % (Auto) Lymph # (Auto) [place] # (Auto) Seg Neutrophils % 82.6 H Seg Neuts % (Manual) Lymphocytes % (Manual) Seg Neutrophils # 11.6 H Seg Neutrophils # Man Lymphocytes # (Manual) Monocytes # (Manual) D-Dimer 877.51 H ABG pH POC ABG pCO2 POC ABG pO2 ABG pO2 ABG HCO3 ABG O2 Saturation ABG Base Excess ABG Hemoglobin ABG Oxyhemoglobin ABG Potassium ABG Glucose VBG pH Oxyhemoglobin Sodium Potassium Chloride Carbon Dioxide 36 H BUN 21 H Creatinine 0.6 L Glucose 123 H POC Glucose Hemoglobin A1c Magnesium Ferritin AST Lactate Dehydrogenase C-Reactive Protein Albumin Arterial Blood Glucose Coronavirus (PCR) 09/06/20 09/06/20 09/10/20 10:43 10:43 08:01 WBC Lymph % (Auto) [place] % (Auto) Lymph # (Auto) [place] # (Auto) Seg Neutrophils % Seg Neuts % (Manual) Lymphocytes % (Manual) Seg Neutrophils # Seg Neutrophils # Man Lymphocytes # (Manual) Monocytes # (Manual) D-Dimer ABG pH POC ABG pCO2 POC ABG pO2 ABG pO2 ABG HCO3 ABG O2 Saturation ABG Base Excess ABG Hemoglobin ABG Oxyhemoglobin ABG Potassium ABG Glucose VBG pH Oxyhemoglobin Sodium Potassium Chloride Carbon Dioxide 32 H BUN Creatinine 0.7 L Glucose 140 H POC Glucose Hemoglobin A1c Magnesium Ferritin 666.4 H AST Lactate Dehydrogenase 607 H C-Reactive Protein Albumin Arterial Blood Glucose Coronavirus (PCR) 09/10/20 09/10/20 09/10/20 10:24 10:24 10:24 WBC Lymph % (Auto) [place] % (Auto) Lymph # (Auto) [place] # (Auto) Seg Neutrophils % Seg Neuts % (Manual) Lymphocytes % (Manual) Seg Neutrophils # Seg Neutrophils # Man Lymphocytes # (Manual) Monocytes # (Manual) D-Dimer 548.23 H ABG pH POC ABG pCO2 POC ABG pO2 ABG pO2 ABG HCO3 ABG O2 Saturation ABG Base Excess ABG Hemoglobin ABG Oxyhemoglobin ABG Potassium ABG Glucose VBG pH Oxyhemoglobin Sodium Potassium Chloride Carbon Dioxide BUN Creatinine Glucose POC Glucose Hemoglobin A1c Magnesium Ferritin 719.2 H AST Lactate Dehydrogenase 495 H C-Reactive Protein Albumin Arterial Blood Glucose Coronavirus (PCR) 09/11/20 09/11/20 05:53 05:53 WBC 17.7 H Lymph % (Auto) 11.2 L [place] % (Auto) Lymph # (Auto) [place] # (Auto) 0.9 H Seg Neutrophils % 83.1 H Seg Neuts % (Manual) Lymphocytes % (Manual) Seg Neutrophils # 14.7 H Seg Neutrophils # Man Lymphocytes # (Manual) Monocytes # (Manual) D-Dimer ABG pH POC ABG pCO2 POC ABG pO2 ABG pO2 ABG HCO3 ABG O2 Saturation ABG Base Excess ABG Hemoglobin ABG Oxyhemoglobin ABG Potassium ABG Glucose VBG pH Oxyhemoglobin Sodium Potassium Chloride 94.9 L Carbon Dioxide 32 H BUN Creatinine 0.7 L Glucose 137 H POC Glucose Hemoglobin A1c Magnesium Ferritin AST Lactate Dehydrogenase C-Reactive Protein Albumin Arterial Blood Glucose Coronavirus (PCR)
--- NOTE | 2020-09-12 18:08 | Progress Note ---
Assessment and Plan --Acute hypoxic respiratory failure secondary to COVID-19 PNA Pt remains on high flow oxygen most recent numbers 25 L/60 FiO2/97 O2 sats with intermittent BiPAP Patient unstable to go for CTA chest to evaluate the cause of persistent hypoxia pulmonary following, Home O2 evaluation at discharge --COVID-19 Pneumonia Continue antibiotics Continue steroids total 10 days s/p Remdesivir, s/p tocilizumab On HF NC O2, titrate and wean as tolerated Decreased to 25 L/ 45 percent Fio2/97% O2 sats --Right lower extremity DVT on LE Doppler study LE Doppler LE Doppler shows RLE DVT. Echocardiogram shows no right heart strain. On Eliquis per protocol --Sinus bradycardia /resolved Likely from remdesivir Heart rate in 60s and 70s today TSH wnl --Morbid obesity; BMI 40.4 Diet and exercise advised Patient needs outpatient bariatric surgical/medical weight reduction consult when medically stable --DVT prophylaxis;-on Eliquis[positive DVT] Continues to be on high flow oxygen/BiPAP wean as tolerated We will closely monitor the patient and adjust management as needed Paint Formulator recommendations noted and appreciated Plan of care reviewed with the patient and his nurse and the case management Also discussed with inspector and clerk and case management Brief history 30-year-old male with morbid obesity weighing about 310 pounds was admitted through emergency room with frontal headache for 3 days. Was admitted through emergency room with acute hypoxic respiratory failure requiring BiPAP and high flow nasal cannula oxygen, admitted to IMCU tested positive for Covid 19, evaluated and followed by pulmonary, ID, managed appropriately per Covid protocols however patient continues to require high flow nasal cannula oxygen and intermittent BiPAP, patient is morbidly obese Patient may need bariatric surgical consultation upon discharge for weight reduction program when medically stable Daily Hospital course: 08/11. Patient seen examined at bedside this morning. Has no complaints. Febrile this a.m.-103 Fahrenheit. On Tylenol as needed. COVID-19 test ordered. Remains on steroids. ID consult if COVID-19 is positive. 08/12. His COVID-19 test is positive. He was started on remdesivir last night. Oxygen requirement increased overnight. Inflammatory markers increasing. Repeat chest xray shows worsening infiltrates. Ordered BNP. Lasix 40mg IV ordered. Increased dexamethasone to 6mg BID. Pulmonology consulted. Will place on continuous pulse oximetry. Incentive spirometer ordered. Advised prone positioning. 08/13. Not feeling better. Seen on BIPAP. Remains on steroids, remdesivir and antibiotics. Vitals stable. 08/14. Still maintaining sats even on BiPAP. Lasix 40 mg IV ordered. D-dimer this a.m. is more than 10,000. Lovenox increased to 150 mg twice daily. Ultr asound lower extremities Doppler showed a right DVT. Echocardiogram ordered to rule out right heart strain. Pending results, patient may need vascular surgery evaluation for possible thrombectomy. Continue on BiPAP and continue to monitor respiratory status closely. 08/15. Sats better this AM. Received toculizumab yesterday. Advised him to prone as much as possible. Echo shows normal EF with no right heart strain. I/Os reviewed. He is diuresing well. Renal function is stable. Will give additional lasix today. Pulmonology following 08/16. Remains on remdesivir. Still on BIPAP. Will give lasix 20mg IV. HR is low - likley effect of remdesivir. Will continue to monitor closely 08/17. Sats in the 90's this AM. Still on BIPAP. 08/18; patient remains hypoxic requiring BiPAP and 100% nonrebreather intermittently 08/19; Continue supportive care, wean oxygen as tolerated. Encouraged PRONE positioning if able to tolerate. 08/20:Remains on BiPAP. continue lasix, still not proninig, encouraged to prone, FIO2 down to 90% with sat of 96%. Continue care, prognosis still guarded. 08/21: Patient down on high flow. Continue to encourage proning position. Still with guarded prognosis. Elevation in WBC noted to 20 this could be secondary to steroids I will continue to monitor. No fever noted at this time. Patient's respiratory status has stabilized on the high flow with no shallow breathing n oted Discussed with the nurse at bedside 08/22; DC Lovenox therapeutic dose, start Eliquis per protocol to treat lower extremity DVT. 08/23; patient remains on high flow oxygen 40 L/100 FiO2/94% O2 sats, intermittent BiPAP 08/24; patient remains on high flow oxygen and BiPAP, consultants recommendations noted and appreciated 08/25; patient continues to be hypoxemic, on high flow oxygen 40L/ 100 FiO2/95 O2 sats and on intermittent BiPAP 08/26; patient continues to be on high flow oxygen, unable to wean follow pulmonary recommendations 08/27; patient remains on high flow oxygen 40 L/100% FiO2/95% O2 sats with intermittent BiPAP treatment 08/28; patient remains on high flow oxygen, strongly advised to prone as tolerated, consults and recommendations noted and appreciated 08/29; closely monitor the patient and adjust management as needed, wean oxygen as tolerated Home oxygen evaluation, DC planning when medically stable 08/30; clinically no change, remains on high flow oxygen, wean as tolerated Consultants recommendations noted . 08/31; patient remains on high flow oxygen 40/100/93 09/01/20;patient remains on high flow oxygen 40/100/93 09/02/20; no change clinically, remains high flow O2, 09/03: No change clinically, remains on high flow O2 09/04:Some omproment, Sitting in Chair On 80 percent FIO2, 40 liters NC O 2 High flow 09/05: Patient feels slightly better Continues to be on high flow oxygen wean as tolerated Continue current management 09/06: Patient continues to require high flow oxygen at the settings of 40 L/85 FiO2/O2 sats 97% 09/07; oxygen requirement slightly improved today on 30 L/70% FiO2/100% O2 sats Encouraging prone position as tolerated 09/08; 30 L nasal cannula intermittent BiPAP, continue current management 09/09; mild improvement still remains on high flow nasal cannula O2 and BiPAP intermittent Wean as tolerated 09/10; patient on continuous BiPAP, feels slightly better DC planning per case management when stable 09/11; patient remains on high flow oxygen and BiPAP, follow clinically Wean as tolerated, check with case management possibility of getting BiPAP at discharge for this patient, she said she would find out Follow consultants intern recommendations 09/12: Patient currently on high flow oxygen 25 L/min. We will transfer him out from the [facility] to [facility]. Continue to follow inflammatory markers, follow ID recommendation. Pulmonary following. Wean off O2 as tolerated. Hospitalist Physical General appearance: Present: no acute distress, well-nourished, obese (Morbidly obese), other (nasal cannula oxygen) - EENT Eyes: Present: PERRL, EOM intact - Neck Neck: Present: supple, normal ROM - Respiratory Respiratory effort: normal Respiratory: bilateral: diminished, rhonchi, negative: rales, wheezing - Cardiovascular Rhythm: regular Heart Sounds: Present: S1 & S2 - Extremities Extremities: no ischemia, No edema - Abdominal General gastrointestinal: soft, non-tender, non-distended, normal bowel sounds - Integumentary Integumentary: Present: clear, warm - Psychiatric Psychiatric: appropriate mood/affect, cooperative - Neurologic Neurologic: moves all extremities Subjective Date of service: 09/12/20 Principal diagnosis: COVID Interval history: Patient seen and examined. Medical records and medication list reviewed. No acute event overnight noted by the RN. Patient on high flow nasal cannula today. Patient is tolerating diet. Discussed plan of care at bedside with patient. Objective - Constitutional Vitals: Vital Signs - 12hr 09/12/20 09/12/20 09/12/20 07:00 08:00 08:02 Temperature Pulse Rate 61 68 Respiratory 11 L 11 L Rate Blood Pressure 125/70 132/76 O2 Sat by Pulse 96 94 96 Oximetry 09/12/20 09/12/20 09/12/20 09:00 09:31 10:00 Temperature 97.9 F Pulse Rate 76 71 Respiratory 18 11 L Rate Blood Pressure 140/77 142/89 O2 Sat by Pulse 92 90 Oximetry 09/12/20 09/12/20 09/12/20 11:00 12:00 13:00 Temperature 97.8 F Pulse Rate 75 75 84 Respiratory 12 12 13 Rate Blood Pressure 122/77 130/75 137/73 O2 Sat by Pulse 96 95 83 L Oximetry 09/12/20 09/12/20 09/12/20 13:41 14:00 15:00 Temperature Pulse Rate 95 H 79 Respiratory 14 12 Rate Blood Pressure 137/73 143/88 O2 Sat by Pulse 83 L 86 92 Oximetry 09/12/20 09/12/20 16:00 17:00 Temperature 98.2 F Pulse Rate 109 H 78 Respiratory 13 12 Rate Blood Pressure 98/64 131/81 O2 Sat by Pulse 83 L 95 Oximetry - Labs CBC & Chem 7: 09/11/20 05:53 09/11/20 05:53
--- NOTE | 2020-09-13 08:19 | Progress Note ---
Assessment and Plan - Patient Problems (1) COVID-19 Current Visit: Yes Status: Acute (2) Pneumonia Current Visit: Yes Status: Acute (3) Morbid obesity Current Visit: Yes Status: Acute (4) Sinus arrhythmia Current Visit: Yes Status: Acute Subjective Principal diagnosis: COVID Interval history: awake. on o2 [place] Objective Vital Signs - 12hr 09/12/20 09/12/20 09/12/20 21:00 22:00 22:56 Pulse Rate 77 83 77 Respiratory 12 15 12 Rate Blood Pressure 118/72 118/72 119/74 O2 Sat by Pulse 90 95 95 Oximetry 09/12/20 09/13/20 09/13/20 23:00 00:00 01:00 Pulse Rate 77 74 79 Respiratory 16 27 H 13 Rate Blood Pressure 144/99 144/99 137/84 O2 Sat by Pulse 94 92 91 Oximetry 09/13/20 09/13/20 09/13/20 01:20 02:00 03:00 Pulse Rate 77 70 72 Respiratory 20 Rate Blood Pressure 137/84 119/69 120/71 O2 Sat by Pulse 99 91 94 Oximetry 09/13/20 09/13/20 03:10 03:20 Pulse Rate 71 79 Respiratory Rate Blood Pressure 120/71 120/71 O2 Sat by Pulse 95 96 Oximetry Constitutional: no acute distress, alert, other (obese) Eyes: non-icteric ENT: oropharynx moist Neck: supple Effort: normal Ascultation: Bilateral: clear Cardiovascular: regular rate and rhythm (no mrg) Gastrointestinal: normoactive bowel sounds, soft, non-distended Integumentary: normal Extremities: no cyanosis, no edema, pink and warm Neurologic: normal mental status, non-focal exam Psychiatric: mood appropriate, affect normal CBC and BMP: 09/11/20 05:53 09/11/20 05:53 ABG, PT/INR, D-dimer: ABG ABG pH 7.313 pH Units (7.350-7.450) L 08/25/20 12:30 POC ABG pCO2 46.9 mmHg (32.0-48.0) 08/14/20 08:23 ABG pCO2 67.2 mm Hg 08/25/20 12:30 POC ABG pO2 50.0 mmHg (83-108) L 08/14/20 08:23 ABG pO2 76.2 mm Hg (80.0-90.0) L 08/25/20 12:30 POC ABG HCO3 31.4 08/14/20 08:23 ABG O2 Saturation 94.9 % (95.0-99.0) L 08/25/20 12:30 PT/INR, D-dimer PT 12.6 Sec. (12.2-14.9) 08/10/20 08:29 INR 0.96 (0.87-1.13) 08/10/20 08:29 D-Dimer 548.23 ng/mlDDU (0-234) H 09/10/20 10:24 Abnormal lab findings: Abnormal Labs 08/10/20 08/10/20 08/10/20 08:29 08:29 08:29 WBC Lymph % (Auto) Major % (Auto) 8.4 H Lymph # (Auto) Major # (Auto) Seg Neutrophils % Seg Neuts % (Manual) Lymphocytes % (Manual) Seg Neutrophils # Seg Neutrophils # Man Lymphocytes # (Manual) Monocytes # (Manual) D-Dimer ABG pH POC ABG pCO2 POC ABG pO2 ABG pO2 ABG HCO3 ABG O2 Saturation ABG Base Excess ABG Hemoglobin ABG Oxyhemoglobin ABG Potassium ABG Glucose VBG pH 7.303 L Oxyhemoglobin Sodium Potassium Chloride Carbon Dioxide BUN Creatinine Glucose 132 H POC Glucose Hemoglobin A1c Magnesium Ferritin AST Lactate Dehydrogenase C-Reactive Protein Albumin Arterial Blood Glucose Coronavirus (PCR) 08/11/20 08/11/20 08/11/20 05:39 05:39 05:39 WBC Lymph % (Auto) 12.5 L Major % (Auto) Lymph # (Auto) Major # (Auto) Seg Neutrophils % 84.2 H Seg Neuts % (Manual) Lymphocytes % (Manual) Seg Neutrophils # 9.1 H Seg Neutrophils # Man Lymphocytes # (Manual) Monocytes # (Manual) D-Dimer ABG pH POC ABG pCO2 POC ABG pO2 ABG pO2 ABG HCO3 ABG O2 Saturation ABG Base Excess ABG Hemoglobin ABG Oxyhemoglobin ABG Potassium ABG Glucose VBG pH Oxyhemoglobin Sodium Potassium Chloride Carbon Dioxide BUN Creatinine Glucose 125 H POC Glucose Hemoglobin A1c 6.1 H Magnesium Ferritin AST Lactate Dehydrogenase C-Reactive Protein Albumin Arterial Blood Glucose Coronavirus (PCR) 08/11/20 08/11/20 08/11/20 18:58 18:58 18:58 WBC Lymph % (Auto) Major % (Auto) Lymph # (Auto) Major # (Auto) Seg Neutrophils % Seg Neuts % (Manual) Lymphocytes % (Manual) Seg Neutrophils # Seg Neutrophils # Man Lymphocytes # (Manual) Monocytes # (Manual) D-Dimer 464.84 H ABG pH POC ABG pCO2 POC ABG pO2 ABG pO2 ABG HCO3 ABG O2 Saturation ABG Base Excess ABG Hemoglobin ABG Oxyhemoglobin ABG Potassium ABG Glucose VBG pH Oxyhemoglobin Sodium Potassium Chloride Carbon Dioxide BUN Creatinine Glucose POC Glucose Hemoglobin A1c Magnesium Ferritin 528.7 H AST Lactate Dehydrogenase 637 H C-Reactive Protein 11.30 H Albumin Arterial Blood Glucose Coronavirus (PCR) 08/11/20 08/11/20 08/12/20 19:08 Unknown 06:29 WBC 11.2 H Lymph % (Auto) 8.6 L Major % (Auto) Lymph # (Auto) 1.0 L Major # (Auto) Seg Neutrophils % 88.3 H Seg Neuts % (Manual) Lymphocytes % (Manual) Seg Neutrophils # 9.8 H Seg Neutrophils # Man Lymphocytes # (Manual) Monocytes # (Manual) D-Dimer ABG pH POC ABG pCO2 POC ABG pO2 ABG pO2 ABG HCO3 ABG O2 Saturation ABG Base Excess ABG Hemoglobin ABG Oxyhemoglobin ABG Potassium ABG Glucose VBG pH Oxyhemoglobin Sodium Potassium Chloride Carbon Dioxide BUN Creatinine Glucose 161 H POC Glucose Hemoglobin A1c Magnesium Ferritin AST Lactate Dehydrogenase C-Reactive Protein Albumin Arterial Blood Glucose Coronavirus (PCR) Positive A 08/12/20 08/12/20 08/12/20 06:29 06:29 06:29 WBC Lymph % (Auto) Major % (Auto) Lymph # (Auto) Major # (Auto) Seg Neutrophils % Seg Neuts % (Manual) Lymphocytes % (Manual) Seg Neutrophils # Seg Neutrophils # Man Lymphocytes # (Manual) Monocytes # (Manual) D-Dimer 830.34 H ABG pH POC ABG pCO2 POC ABG pO2 ABG pO2 ABG HCO3 ABG O2 Saturation ABG Base Excess ABG Hemoglobin ABG Oxyhemoglobin ABG Potassium ABG Glucose VBG pH Oxyhemoglobin Sodium Potassium Chloride Carbon Dioxide 31 H BUN Creatinine Glucose 138 H POC Glucose Hemoglobin A1c Magnesium Ferritin 572.6 H AST 42 H Lactate Dehydrogenase 706 H C-Reactive Protein 17.30 H Albumin 3.7 L Arterial Blood Glucose Coronavirus (PCR) 08/12/20 08/12/20 08/12/20 13:21 14:55 21:59 WBC Lymph % (Auto) Major % (Auto) Lymph # (Auto) Major # (Auto) Seg Neutrophils % Seg Neuts % (Manual) Lymphocytes % (Manual) Seg Neutrophils # Seg Neutrophils # Man Lymphocytes # (Manual) Monocytes # (Manual) D-Dimer ABG pH 7.315 L POC ABG pCO2 57.1 H POC ABG pO2 47.8 L ABG pO2 65.8 L ABG HCO3 31.4 H ABG O2 Saturation 91.7 L ABG Base Excess ABG Hemoglobin 19.3 H ABG Oxyhemoglobin ABG Potassium 4.9 H ABG Glucose 182 H VBG pH Oxyhemoglobin 89.7 L Sodium Potassium Chloride Carbon Dioxide BUN Creatinine Glucose POC Glucose 142 H Hemoglobin A1c Magnesium Ferritin AST Lactate Dehydrogenase C-Reactive Protein Albumin Arterial Blood Glucose 182 H Coronavirus (PCR) 08/13/20 08/13/20 08/13/20 05:35 05:35 12:11 WBC 12.0 H Lymph % (Auto) 8.1 L Major % (Auto) Lymph # (Auto) 1.0 L Major # (Auto) Seg Neutrophils % 88.0 H Seg Neuts % (Manual) Lymphocytes % (Manual) Seg Neutrophils # 10.5 H Seg Neutrophils # Man Lymphocytes # (Manual) Monocytes # (Manual) D-Dimer ABG pH POC ABG pCO2 POC ABG pO2 ABG pO2 ABG HCO3 ABG O2 Saturation ABG Base Excess ABG Hemoglobin ABG Oxyhemoglobin ABG Potassium ABG Glucose VBG pH Oxyhemoglobin Sodium Potassium 5.1 H Chloride Carbon Dioxide 31 H BUN 25 H Creatinine Glucose 174 H POC Glucose 154 H Hemoglobin A1c Magnesium Ferritin AST 41 H Lactate Dehydrogenase 996 H C-Reactive Protein Albumin 3.8 L Arterial Blood Glucose Coronavirus (PCR) 08/13/20 08/13/20 08/14/20 16:18 23:24 05:21 WBC 14.2 H Lymph % (Auto) 8.2 L Major % (Auto) Lymph # (Auto) Major # (Auto) 0.9 H Seg Neutrophils % 85.4 H Seg Neuts % (Manual) Lymphocytes % (Manual) Seg Neutrophils # 12.2 H Seg Neutrophils # Man Lymphocytes # (Manual) Monocytes # (Manual) D-Dimer ABG pH POC ABG pCO2 POC ABG pO2 ABG pO2 ABG HCO3 ABG O2 Saturation ABG Base Excess ABG Hemoglobin ABG Oxyhemoglobin ABG Potassium ABG Glucose VBG pH Oxyhemoglobin Sodium Potassium Chloride Carbon Dioxide BUN Creatinine Glucose POC Glucose 188 H 127 H Hemoglobin A1c Magnesium Ferritin AST Lactate Dehydrogenase C-Reactive Protein Albumin Arterial Blood Glucose Coronavirus (PCR) 08/14/20 08/14/20 08/14/20 05:21 05:21 05:21 WBC Lymph % (Auto) Major % (Auto) Lymph # (Auto) Major # (Auto) Seg Neutrophils % Seg Neuts % (Manual) Lymphocytes % (Manual) Seg Neutrophils # Seg Neutrophils # Man Lymphocytes # (Manual) Monocytes # (Manual) D-Dimer > 85678 H ABG pH POC ABG pCO2 POC ABG pO2 ABG pO2 ABG HCO3 ABG O2 Saturation ABG Base Excess ABG Hemoglobin ABG Oxyhemoglobin ABG Potassium ABG Glucose VBG pH Oxyhemoglobin Sodium Potassium Chloride Carbon Dioxide 32 H 33 H BUN 26 H 26 H Creatinine Glucose 152 H 156 H POC Glucose Hemoglobin A1c Magnesium Ferritin AST 53 H 54 H Lactate Dehydrogenase 1249 H C-Reactive Protein 9.90 H Albumin 3.7 L 3.7 L Arterial Blood Glucose Coronavirus (PCR) 08/14/20 08/14/20 08/14/20 05:21 05:58 08:23 WBC Lymph % (Auto) Major % (Auto) Lymph # (Auto) Major # (Auto) Seg Neutrophils % Seg Neuts % (Manual) Lymphocytes % (Manual) Seg Neutrophils # Seg Neutrophils # Man Lymphocytes # (Manual) Monocytes # (Manual) D-Dimer ABG pH POC ABG pCO2 POC ABG pO2 50.0 L ABG pO2 ABG HCO3 ABG O2 Saturation ABG Base Excess ABG Hemoglobin ABG Oxyhemoglobin 84.0 L ABG Potassium ABG Glucose 141 H VBG pH Oxyhemoglobin Sodium Potassium Chloride Carbon Dioxide BUN Creatinine Glucose POC Glucose 139 H Hemoglobin A1c Magnesium Ferritin 1198.0 H AST Lactate Dehydrogenase C-Reactive Protein Albumin Arterial Blood Glucose 141 H Coronavirus (PCR) 08/15/20 08/15/20 08/16/20 05:16 05:16 05:26 WBC 13.7 H 17.7 H Lymph % (Auto) 8.2 L Major % (Auto) Lymph # (Auto) Major # (Auto) Seg Neutrophils % 86.2 H Seg Neuts % (Manual) 91.0 H 88.0 H Lymphocytes % (Manual) 7.0 L 9.0 L Seg Neutrophils # 15.3 H Seg Neutrophils # Man 12.5 H 15.6 H Lymphocytes # (Manual) 1.0 L Monocytes # (Manual) D-Dimer ABG pH POC ABG pCO2 POC ABG pO2 ABG pO2 ABG HCO3 ABG O2 Saturation ABG Base Excess ABG Hemoglobin ABG Oxyhemoglobin ABG Potassium ABG Glucose VBG pH Oxyhemoglobin Sodium Potassium Chloride Carbon Dioxide 32 H BUN 29 H Creatinine Glucose 150 H POC Glucose Hemoglobin A1c Magnesium Ferritin AST Lactate Dehydrogenase 1150 H C-Reactive Protein Albumin 3.5 L Arterial Blood Glucose Coronavirus (PCR) 08/16/20 08/16/20 08/16/20 05:26 05:26 05:26 WBC Lymph % (Auto) Major % (Auto) Lymph # (Auto) Major # (Auto) Seg Neutrophils % Seg Neuts % (Manual) Lymphocytes % (Manual) Seg Neutrophils # Seg Neutrophils # Man Lymphocytes # (Manual) Monocytes # (Manual) D-Dimer > 89632 H ABG pH POC ABG pCO2 POC ABG pO2 ABG pO2 ABG HCO3 ABG O2 Saturation ABG Base Excess ABG Hemoglobin ABG Oxyhemoglobin ABG Potassium ABG Glucose VBG pH Oxyhemoglobin Sodium Potassium 5.2 H Chloride Carbon Dioxide BUN 25 H Creatinine Glucose 163 H POC Glucose Hemoglobin A1c Magnesium Ferritin 1013.0 H AST Lactate Dehydrogenase C-Reactive Protein 4.00 H Albumin 3.6 L Arterial Blood Glucose Coronavirus (PCR) 08/17/20 08/17/20 08/17/20 05:06 05:06 07:51 WBC 20.7 H Lymph % (Auto) Major % (Auto) Lymph # (Auto) Major # (Auto) Seg Neutrophils % Seg Neuts % (Manual) 86.0 H Lymphocytes % (Manual) 7.0 L Seg Neutrophils # Seg Neutrophils # Man 17.8 H Lymphocytes # (Manual) Monocytes # (Manual) 1.2 H D-Dimer ABG pH POC ABG pCO2 POC ABG pO2 ABG pO2 ABG HCO3 ABG O2 Saturation ABG Base Excess ABG Hemoglobin ABG Oxyhemoglobin ABG Potassium ABG Glucose VBG pH Oxyhemoglobin Sodium Potassium Chloride 96.5 L Carbon Dioxide 31 H BUN 29 H Creatinine Glucose 121 H POC Glucose 110 H Hemoglobin A1c Magnesium Ferritin AST 46 H Lactate Dehydrogenase C-Reactive Protein Albumin 3.7 L Arterial Blood Glucose Coronavirus (PCR) 08/17/20 08/17/20 08/18/20 11:42 21:45 05:13 WBC Lymph % (Auto) Major % (Auto) Lymph # (Auto) Major # (Auto) Seg Neutrophils % Seg Neuts % (Manual) Lymphocytes % (Manual) Seg Neutrophils # Seg Neutrophils # Man Lymphocytes # (Manual) Monocytes # (Manual) D-Dimer > 1000 H ABG pH POC ABG pCO2 POC ABG pO2 ABG pO2 ABG HCO3 ABG O2 Saturation ABG Base Excess ABG Hemoglobin ABG Oxyhemoglobin ABG Potassium ABG Glucose VBG pH Oxyhemoglobin Sodium Potassium Chloride Carbon Dioxide BUN Creatinine Glucose POC Glucose 122 H 143 H Hemoglobin A1c Magnesium Ferritin AST Lactate Dehydrogenase C-Reactive Protein Albumin Arterial Blood Glucose Coronavirus (PCR) 08/18/20 08/18/20 08/21/20 05:13 05:13 11:17 WBC Lymph % (Auto) Major % (Auto) Lymph # (Auto) Major # (Auto) Seg Neutrophils % Seg Neuts % (Manual) Lymphocytes % (Manual) Seg Neutrophils # Seg Neutrophils # Man Lymphocytes # (Manual) Monocytes # (Manual) D-Dimer ABG pH POC ABG pCO2 POC ABG pO2 ABG pO2 ABG HCO3 ABG O2 Saturation ABG Base Excess ABG Hemoglobin ABG Oxyhemoglobin ABG Potassium ABG Glucose VBG pH Oxyhemoglobin Sodium 133 L Potassium Chloride 94.7 L Carbon Dioxide BUN 33 H Creatinine Glucose 110 H POC Glucose 151 H Hemoglobin A1c Magnesium Ferritin 979.8 H AST 50 H Lactate Dehydrogenase C-Reactive Protein Albumin 3.7 L Arterial Blood Glucose Coronavirus (PCR) 08/21/20 08/21/20 08/21/20 13:39 13:39 15:55 WBC Lymph % (Auto) Major % (Auto) Lymph # (Auto) Major # (Auto) Seg Neutrophils % Seg Neuts % (Manual) Lymphocytes % (Manual) Seg Neutrophils # Seg Neutrophils # Man Lymphocytes # (Manual) Monocytes # (Manual) D-Dimer 6731.66 H ABG pH POC ABG pCO2 POC ABG pO2 ABG pO2 ABG HCO3 ABG O2 Saturation ABG Base Excess ABG Hemoglobin ABG Oxyhemoglobin ABG Potassium ABG Glucose VBG pH Oxyhemoglobin Sodium Potassium Chloride Carbon Dioxide BUN Creatinine Glucose POC Glucose Hemoglobin A1c Magnesium Ferritin 1019.0 H AST Lactate Dehydrogenase 1251 H C-Reactive Protein Albumin Arterial Blood Glucose Coronavirus (PCR) 08/22/20 08/22/20 08/25/20 05:23 05:23 12:30 WBC 24.7 H Lymph % (Auto) Major % (Auto) Lymph # (Auto) Major # (Auto) Seg Neutrophils % Seg Neuts % (Manual) Lymphocytes % (Manual) Seg Neutrophils # Seg Neutrophils # Man Lymphocytes # (Manual) Monocytes # (Manual) D-Dimer ABG pH 7.313 L POC ABG pCO2 POC ABG pO2 ABG pO2 76.2 L ABG HCO3 33.3 H ABG O2 Saturation 94.9 L ABG Base Excess 5.0 H ABG Hemoglobin 13.4 L ABG Oxyhemoglobin ABG Potassium ABG Glucose VBG pH Oxyhemoglobin 93.0 L Sodium 136 L Potassium Chloride 96.3 L Carbon Dioxide BUN 24 H Creatinine 0.7 L Glucose 115 H POC Glucose Hemoglobin A1c Magnesium Ferritin AST Lactate Dehydrogenase C-Reactive Protein Albumin Arterial Blood Glucose Coronavirus (PCR) 08/25/20 08/25/20 08/25/20 16:08 16:08 16:08 WBC Lymph % (Auto) Major % (Auto) Lymph # (Auto) Major # (Auto) Seg Neutrophils % Seg Neuts % (Manual) Lymphocytes % (Manual) Seg Neutrophils # Seg Neutrophils # Man Lymphocytes # (Manual) Monocytes # (Manual) D-Dimer 4487.76 H ABG pH POC ABG pCO2 POC ABG pO2 ABG pO2 ABG HCO3 ABG O2 Saturation ABG Base Excess ABG Hemoglobin ABG Oxyhemoglobin ABG Potassium ABG Glucose VBG pH Oxyhemoglobin Sodium Potassium Chloride Carbon Dioxide BUN Creatinine Glucose POC Glucose Hemoglobin A1c Magnesium Ferritin 961.4 H AST Lactate Dehydrogenase 959 H C-Reactive Protein Albumin Arterial Blood Glucose Coronavirus (PCR) 08/26/20 08/26/20 08/31/20 07:11 07:11 10:56 WBC Lymph % (Auto) Major % (Auto) 9.8 H Lymph # (Auto) Major # (Auto) 1.0 H Seg Neutrophils % Seg Neuts % (Manual) Lymphocytes % (Manual) Seg Neutrophils # Seg Neutrophils # Man Lymphocytes # (Manual) Monocytes # (Manual) D-Dimer ABG pH POC ABG pCO2 POC ABG pO2 ABG pO2 ABG HCO3 ABG O2 Saturation ABG Base Excess ABG Hemoglobin ABG Oxyhemoglobin ABG Potassium ABG Glucose VBG pH Oxyhemoglobin Sodium 135 L Potassium Chloride 95.7 L 97.4 L Carbon Dioxide 33 H 34 H BUN Creatinine 0.6 L Glucose 109 H POC Glucose Hemoglobin A1c Magnesium 2.40 H Ferritin AST Lactate Dehydrogenase C-Reactive Protein Albumin Arterial Blood Glucose Coronavirus (PCR) 09/05/20 09/05/20 09/06/20 07:11 07:11 10:43 WBC 14.0 H Lymph % (Auto) 10.8 L Major % (Auto) Lymph # (Auto) Major # (Auto) Seg Neutrophils % 82.6 H Seg Neuts % (Manual) Lymphocytes % (Manual) Seg Neutrophils # 11.6 H Seg Neutrophils # Man Lymphocytes # (Manual) Monocytes # (Manual) D-Dimer 877.51 H ABG pH POC ABG pCO2 POC ABG pO2 ABG pO2 ABG HCO3 ABG O2 Saturation ABG Base Excess ABG Hemoglobin ABG Oxyhemoglobin ABG Potassium ABG Glucose VBG pH Oxyhemoglobin Sodium Potassium Chloride Carbon Dioxide 36 H BUN 21 H Creatinine 0.6 L Glucose 123 H POC Glucose Hemoglobin A1c Magnesium Ferritin AST Lactate Dehydrogenase C-Reactive Protein Albumin Arterial Blood Glucose Coronavirus (PCR) 09/06/20 09/06/20 09/10/20 10:43 10:43 08:01 WBC Lymph % (Auto) Major % (Auto) Lymph # (Auto) Major # (Auto) Seg Neutrophils % Seg Neuts % (Manual) Lymphocytes % (Manual) Seg Neutrophils # Seg Neutrophils # Man Lymphocytes # (Manual) Monocytes # (Manual) D-Dimer ABG pH POC ABG pCO2 POC ABG pO2 ABG pO2 ABG HCO3 ABG O2 Saturation ABG Base Excess ABG Hemoglobin ABG Oxyhemoglobin ABG Potassium ABG Glucose VBG pH Oxyhemoglobin Sodium Potassium Chloride Carbon Dioxide 32 H BUN Creatinine 0.7 L Glucose 140 H POC Glucose Hemoglobin A1c Magnesium Ferritin 666.4 H AST Lactate Dehydrogenase 607 H C-Reactive Protein Albumin Arterial Blood Glucose Coronavirus (PCR) 09/10/20 09/10/20 09/10/20 10:24 10:24 10:24 WBC Lymph % (Auto) Major % (Auto) Lymph # (Auto) Major # (Auto) Seg Neutrophils % Seg Neuts % (Manual) Lymphocytes % (Manual) Seg Neutrophils # Seg Neutrophils # Man Lymphocytes # (Manual) Monocytes # (Manual) D-Dimer 548.23 H ABG pH POC ABG pCO2 POC ABG pO2 ABG pO2 ABG HCO3 ABG O2 Saturation ABG Base Excess ABG Hemoglobin ABG Oxyhemoglobin ABG Potassium ABG Glucose VBG pH Oxyhemoglobin Sodium Potassium Chloride Carbon Dioxide BUN Creatinine Glucose POC Glucose Hemoglobin A1c Magnesium Ferritin 719.2 H AST Lactate Dehydrogenase 495 H C-Reactive Protein Albumin Arterial Blood Glucose Coronavirus (PCR) 09/11/20 09/11/20 05:53 05:53 WBC 17.7 H Lymph % (Auto) 11.2 L Major % (Auto) Lymph # (Auto) Major # (Auto) 0.9 H Seg Neutrophils % 83.1 H Seg Neuts % (Manual) Lymphocytes % (Manual) Seg Neutrophils # 14.7 H Seg Neutrophils # Man Lymphocytes # (Manual) Monocytes # (Manual) D-Dimer ABG pH POC ABG pCO2 POC ABG pO2 ABG pO2 ABG HCO3 ABG O2 Saturation ABG Base Excess ABG Hemoglobin ABG Oxyhemoglobin ABG Potassium ABG Glucose VBG pH Oxyhemoglobin Sodium Potassium Chloride 94.9 L Carbon Dioxide 32 H BUN Creatinine 0.7 L Glucose 137 H POC Glucose Hemoglobin A1c Magnesium Ferritin AST Lactate Dehydrogenase C-Reactive Protein Albumin Arterial Blood Glucose Coronavirus (PCR) Chest x-ray: report reviewed
[2020-09-13] MEDS: FAMOTIDINE 20 MG TAB PO SCH ×2 (09:44→21:55)
[2020-09-13] MEDS: ZINC SULFATE 220 MG CAP PO SCH (09:44)
[2020-09-13] MEDS: methylPREDNISolone Sod Succinate 40 MG/1 ML INJ IV SCH ×2 (09:44→21:55)
[2020-09-13] MEDS: APIXABAN 5 MG TAB PO SCH ×2 (09:44→21:55)
--- NOTE | 2020-09-13 13:48 | Progress Note ---
Assessment and Plan --Acute hypoxic respiratory failure secondary to COVID-19 PNA Pt remains on high flow oxygen most recent numbers 25 L/60 FiO2/97 O2 sats with intermittent BiPAP Patient unstable to go for CTA chest to evaluate the cause of persistent hypox ia, cont eliquis for now pulmonary following, Home O2 evaluation at discharge --COVID-19 Pneumonia Continue steroids tapering dose s/p Remdesivir, s/p tocilizumab On HF NC O2, titrate and wean as tolerated Decreased to 25 L/ 45 percent Fio2/97% O2 sats --Right lower extremity DVT on LE Doppler study LE Doppler LE Doppler shows RLE DVT. Echocardiogram shows no right heart strain. On Eliquis per protocol --Sinus bradycardia /resolved Likely from remdesivir Heart rate in 60s and 70s today TSH wnl --Morbid obesity; BMI 40.4 Diet and exercise advised Patient needs outpatient bariatric surgical/medical weight reduction consult when medically stable --DVT prophylaxis;-on Eliquis[positive DVT] Continues to be on high flow oxygen/BiPAP wean as tolerated We will closely monitor the patient and adjust management as needed Director Of Purchasing recommendations noted and appreciated Plan of care reviewed with the patient and his nurse and the case management Also discussed with mender hand and case management Brief history 30-year-old male with morbid obesity weighing about 310 pounds was admitted through emergency room with frontal headache for 3 days. Was admitted through emergency room with acute hypoxic respiratory failure requiring BiPAP and high flow nasal cannula oxygen, admitted to IMCU tested positive for Covid 19, evaluated and followed by pulmonary, ID, managed appropriately per Covid protocols however patient continues to require high flow nasal cannula oxygen and intermittent BiPAP, patient is morbidly obese Patient may need bariatric surgical consultation upon discharge for weight reduction program when medically stable Daily Hospital course: 08/11. Patient seen examined at bedside this morning. Has no complaints. Febrile this a.m.-103 Fahrenheit. On Tylenol as needed. COVID-19 test ordered. Remains on steroids. ID consult if COVID-19 is positive. 08/12. His COVID-19 test is positive. He was started on remdesivir last night. Oxygen requirement increased overnight. Inflammatory markers increasing. Repeat chest xray shows worsening infiltrates. Ordered BNP. Lasix 40mg IV ordered. Increased dexamethasone to 6mg BID. Pulmonology consulted. Will place on continuous pulse oximetry. Incentive spirometer ordered. Advised prone positioning. 08/13. Not feeling better. Seen on BIPAP. Remains on steroids, remdesivir and antibiotics. Vitals stable. 08/14. Still maintaining sats even on BiPAP. Lasix 40 mg IV ordered. D-dimer this a.m. is more than 10,000. Lovenox increased to 150 mg twice daily. Ult rasound lower extremities Doppler showed a right DVT. Echocardiogram ordered to rule out right heart strain. Pending results, patient may need vascular surgery evaluation for possible thrombectomy. Continue on BiPAP and continue to monitor respiratory status closely. 08/15. Sats better this AM. Received toculizumab yesterday. Advised him to prone as much as possible. Echo shows normal EF with no right heart strain. I/Os reviewed. He is diuresing well. Renal function is stable. Will give additional lasix today. Pulmonology following 08/16. Remains on remdesivir. Still on BIPAP. Will give lasix 20mg IV. HR is low - likley effect of remdesivir. Will continue to monitor closely 08/17. Sats in the 90's this AM. Still on BIPAP. 08/18; patient remains hypoxic requiring BiPAP and 100% nonrebreather intermittently 08/19; Continue supportive care, wean oxygen as tolerated. Encouraged PRONE positi oning if able to tolerate. 08/20:Remains on BiPAP. continue lasix, still not proninig, encouraged to prone, FIO2 down to 90% with sat of 96%. Continue care, prognosis still guarded. 08/21: Patient down on high flow. Continue to encourage proning position. Still with guarded prognosis. Elevation in WBC noted to 20 this could be secondary to steroids I will continue to monitor. No fever noted at this time. Patient's respiratory status has stabilized on the high flow with no shallow breathing noted Discussed with the nurse at bedside 08/22; DC Lovenox therapeutic dose, start Eliquis per protocol to treat lower extremity DVT. 08/23; patient remains on high flow oxygen 40 L/100 FiO2/94% O2 sats, intermittent BiPAP 08/24; patient remains on high flow oxygen and BiPAP, consultants recommendations noted and appreciated 08/25; patient continues to be hypoxemic, on high flow oxygen 40L/ 100 FiO2/95 O2 sats and on intermittent BiPAP 08/26; patient continues to be on high flow oxygen, unable to wean follow pulmonary recommendations 08/27; patient remains on high flow oxygen 40 L/100% FiO2/95% O2 sats with intermittent BiPAP treatment 08/28; patient remains on high flow oxygen, strongly advised to prone as tolerated, consults and recommendations noted and appreciated 08/29; closely monitor the patient and adjust management as needed, wean oxygen as tolerated Home oxygen evaluation, DC planning when medically stable 08/30; clinically no change, remains on high flow oxygen, wean as tolerated Consultants recommendations noted . 08/31; patient remains on high flow oxygen 40/100/93 09/01/20;patient remains on high flow oxygen 40/100/93 09/02/20; no change clinically, remains high flow O2, 09/03: No change clinically, remains on high flow O2 09/04:Some omproment, Sitting in Chair On 80 percent FIO2, 40 liters NC O 2 High flow 09/05: Patient feels slightly better Continues to be on high flow oxygen wean as tolerated Continue current management 09/06: Patient continues to require high flow oxygen at the settings of 40 L/85 FiO2/O2 sats 97% 09/07; oxygen requirement slightly improved today on 30 L/70% FiO2/100% O2 sats Encouraging prone position as tolerated 09/08; 30 L nasal cannula intermittent BiPAP, continue current management 09/09; mild improvement still remains on high flow nasal cannula O2 and BiPAP intermittent Wean as tolerated 09/10; patient on continuous BiPAP, feels slightly better DC planning per case management when stable 09/11; patient remains on high flow oxygen and BiPAP, follow clinically Wean as tolerated, check with case management possibility of getting BiPAP at discharge for this patient, she said she would find out Follow internal consultant recommendations 09/12: Patient currently on high flow oxygen 25 L/min. We will transfer him out from the [facility] to [facility]. Continue to follow inflammatory markers, follow ID recommendation. Pulmonary following. Wean off O2 as tolerated. 09/13: remains on 25L O2, cont eliquis, follow inflammatory markers. Hospitalist Physical General appearance: Present: no acute distress, well-nourished, obese (Morbidly obese), other (nasal cannula oxygen) - EENT Eyes: Present: PERRL, EOM intact - Neck Neck: Present: supple, normal ROM - Respiratory Respiratory effort: normal Respiratory: bilateral: diminished, rhonchi, negative: rales, wheezing - Cardiovascular Rhythm: regular Heart Sounds: Present: S1 & S2 - Extremities Extremities: no ischemia, No edema - Abdominal General gastrointestinal: soft, non-tender, non-distended, normal bowel sounds - Integumentary Integumentary: Present: clear, warm - Psychiatric Psychiatric: appropriate mood/affect, cooperative - Neurologic Neurologic: moves all extremities Subjective Date of service: 09/13/20 Principal diagnosis: COVID Interval history: Patient seen and examined. Medical records and medication list reviewed. No acute event overnight noted by the RN. Patient on high flow nasal cannula today. Patient is tolerating diet. Discussed plan of care at bedside with patient. Objective - Constitutional Vitals: Vital Signs - 12hr 09/13/20 09/13/20 09/13/20 02:00 03:00 03:10 Pulse Rate 70 72 71 Blood Pressure 119/69 120/71 120/71 O2 Sat by Pulse 91 94 95 Oximetry 09/13/20 09/13/20 03:20 08:30 Pulse Rate 79 Blood Pressure 120/71 O2 Sat by Pulse 96 95 Oximetry - Labs CBC & Chem 7: 09/11/20 05:53 09/11/20 05:53
[2020-09-13] MEDS: ASCORBIC ACID 500 MG TAB PO SCH (21:55)
[2020-09-14] MEDS: APIXABAN 5 MG TAB PO SCH ×2 (12:05→22:04)
[2020-09-14] MEDS: ZINC SULFATE 220 MG CAP PO SCH (12:05)
[2020-09-14] MEDS: methylPREDNISolone Sod Succinate 40 MG/1 ML INJ IV SCH ×2 (12:06→22:04)
[2020-09-14] MEDS: FAMOTIDINE 20 MG TAB PO SCH ×2 (12:06→22:04)
[2020-09-14] MEDS: CHOLECALCIFEROL (VIT D3) 5,000 UNIT TAB PO SCH (12:06)
[2020-09-14] MEDS: ASCORBIC ACID 500 MG TAB PO SCH ×2 (12:06→22:04)
--- NOTE | 2020-09-14 16:18 | Progress Note ---
Assessment and Plan --Acute hypoxic respiratory failure secondary to COVID-19 PNA s/p high flow oxygen most recent numbers 25 L/60 FiO2/97 O2 sats with intermi ttent BiPAP Patient unstable to go for CTA chest to evaluate the cause of persistent hypoxia, cont eliquis for now pulmonary following, Home O2 evaluation at discharge --COVID-19 Pneumonia Continue steroids tapering dose s/p Remdesivir, s/p tocilizumab s/p HF NC O2, now on N/c, titrate and wean as tolerated --Right lower extremity DVT on LE Doppler study LE Doppler LE Doppler shows RLE DVT. Echocardiogram shows no right heart strain. On Eliquis per protocol --Sinus bradycardia /resolved Likely from remdesivir Heart rate in 60s and 70s today TSH wnl --Morbid obesity; BMI 40.4 Diet and exercise advised Patient needs outpatient bariatric surgical/medical weight reduction consult when medically stable --DVT prophylaxis;-on Eliquis[positive DVT] Continues to be on high flow oxygen/BiPAP wean as tolerated We will closely monitor the patient and adjust management as needed Supervisor [employer] recommendations noted and appreciated Plan of care reviewed with the patient and his nurse and the case management Also discussed with category analyst and case management Brief history 30-year-old male with morbid obesity weighing about 310 pounds was admitted through emergency room with frontal headache for 3 days. Was admitted through emergency room with acute hypoxic respiratory failure requiring BiPAP and high flow nasal cannula oxygen, admitted to IMCU tested positive for Covid 19, evaluated and followed by pulmonary, ID, managed appropriately per Covid protocols however patient continues to require high flow nasal cannula oxygen and intermittent BiPAP, patient is morbidly obese Patient may need bariatric surgical consultation upon discharge for weight reduction program when medically stable Daily Hospital course: 08/11. Patient seen examined at bedside this morning. Has no complaints. Febrile this a.m.-103 Fahrenheit. On Tylenol as needed. COVID-19 test ordered. Remains on steroids. ID consult if COVID-19 is positive. 08/12. His COVID-19 test is positive. He was started on remdesivir last night. Oxygen requirement increased overnight. Inflammatory markers increasing. Repeat chest xray shows worsening infiltrates. Ordered BNP. Lasix 40mg IV ordered. Increased dexamethasone to 6mg BID. Pulmonology consulted. Will place on continuous pulse oximetry. Incentive spirometer ordered. Advised prone positioning. 08/13. Not feeling better. Seen on BIPAP. Remains on steroids, remdesivir and antibiotics. Vitals stable. 08/14. Still maintaining sats even on BiPAP. Lasix 40 mg IV ordered. D-dimer this a.m. is more than 10,000. Lovenox increased to 150 mg twice daily. Ultrasound lower extremities Doppler showed a right DVT. Echocardiogram ordered to rule out right heart strain. Pending results, patient may need vascular surgery evaluation for possible thrombectomy. Continue on BiPAP and continue to monitor respiratory status closely. 08/15. Sats better this AM. Received toculizumab yesterday. Advised him to prone as much as possible. Echo shows normal EF with no right heart strain. I/Os reviewed. He is diuresing well. Renal function is stable. Will give additional lasix today. Pulmonology following 08/16. Remains on remdesivir. Still on BIPAP. Will give lasix 20mg IV. HR is low - likley effect of remdesivir. Will continue to monitor closely 08/17. Sats in the 90's this AM. Still on BIPAP. 08/18; patient remains hypoxic requiring BiPAP and 100% nonrebreather intermittently 08/19; Continue supportive care, wean oxygen as tolerated. Encouraged PRONE positioning if able to tolerate. 08/20:Remains on BiPAP. continue lasix, still not proninig, encouraged to prone, FIO2 down to 90% with sat of 96%. Continue care, prognosis still guarded. 08/21: Patient down on high flow. Continue to encourage proning position. Still with guarded prognosis. Elevation in WBC noted to 20 this could be secondary to steroids I will continue to monitor. No fever noted at this time. Patient's respiratory status has stabilized on the high flow with no shallow breathing noted Discussed with the nurse at bedside 08/22; DC Lovenox therapeutic dose, start Eliquis per protocol to treat lower extremity DVT. 08/23; patient remains on high flow oxygen 40 L/100 FiO2/94% O2 sats, intermittent BiPAP 08/24; patient remains on high flow oxygen and BiPAP, consultants recommendations noted and appreciated 08/25; patient continues to be hypoxemic, on high flow oxygen 40L/ 100 FiO2/95 O2 sats and on intermittent BiPAP 08/26; patient continues to be on high flow oxygen, unable to wean follow pulmonary recommendations 08/27; patient remains on high flow oxygen 40 L/100% FiO2/95% O2 sats with intermittent BiPAP treatment 08/28; patient remains on high flow oxygen, strongly advised to prone as tolerated, consults and recommendations noted and appreciated 08/29; closely monitor the patient and adjust management as needed, wean oxygen as tolerated Home oxygen evaluation, DC planning when medically stable 08/30; clinically no change, remains on high flow oxygen, wean as tolerated Consultants recommendations noted . 08/31; patient remains on high flow oxygen 40/100/93 09/01/20;patient remains on high flow oxygen 40/100/93 09/02/20; no change clinically, remains high flow O2, 09/03: No change clinically, remains on high flow O2 09/04:Some omproment, Sitting in Chair On 80 percent FIO2, 40 liters NC O 2 High flow 09/05: Patient feels slightly better Continues to be on high flow oxygen wean as tolerated Continue current management 09/06: Patient continues to require high flow oxygen at the settings of 40 L/85 FiO2/O2 sats 97% 09/07; oxygen requirement slightly improved today on 30 L/70% FiO2/100% O2 sats Encouraging prone position as tolerated 09/08; 30 L nasal cannula intermittent BiPAP, continue current management 09/09; mild improvement still remains on high flow nasal cannula O2 and BiPAP intermittent Wean as tolerated 09/10; patient on continuous BiPAP, feels slightly better DC planning per case management when stable 09/11; patient remains on high flow oxygen and BiPAP, follow clinically Wean as tolerated, check with case management possibility of getting BiPAP at discharge for this patient, she said she would find out Follow furniture sales consultant recommendations 09/12: Patient currently on high flow oxygen 25 L/min. We will transfer him out from the [facility] to [facility]. Continue to follow inflammatory markers, follow ID recommendation. Pulmonary following. Wean off O2 as tolerated. 09/13: remains on 25L O2, cont eliquis, follow inflammatory markers. 09/14: Patient weaned down to 5 L nasal cannula today, continue Eliquis. inflammatory markers stable and trending down. Consult transplant case manager from home O2 arrangement. If patient able to maintain oxygenation below 5 L possible discharge home soon with home O2. Hospitalist Physical General appearance: Present: no acute distress, well-nourished, obese (Morbidly obese), other (nasal cannula oxygen) - EENT Eyes: Present: PERRL, EOM intact - Neck Neck: Present: supple, normal ROM - Respiratory Respiratory effort: normal Respiratory: bilateral: diminished, negative: rales, wheezing - Cardiovascular Rhythm: regular Heart Sounds: Present: S1 & S2 - Extremities Extremities: no ischemia, No edema - Abdominal General gastrointestinal: soft, non-tender, non-distended, normal bowel sounds - Integumentary Integumentary: Present: clear, warm - Psychiatric Psychiatric: appropriate mood/affect, cooperative - Neurologic Neurologic: moves all extremities Subjective Date of service: 09/14/20 Principal diagnosis: COVID Interval history: Patient seen and examined. Medical records and medication list reviewed. No acute event overnight noted by the RN. Patient on 5L nasal cannula o2 today. Patient is tolerating diet. Discussed plan of care at bedside with patient. Objective - Constitutional Vitals: Vital Signs - 12hr 09/14/20 09/14/20 09/14/20 05:18 08:00 11:00 Temperature 97.7 F Pulse Rate 75 Respiratory 18 Rate Blood Pressure 140/72 [right arm] O2 Sat by Pulse 94 98 96 Oximetry - Labs CBC & Chem 7: 09/11/20 05:53 09/11/20 05:53
--- NOTE | 2020-09-14 18:32 | Progress Note ---
Assessment and Plan Imp: 1. Covid-19 2. Viral pneumonia 3. ARDS 4. Acute respiratory failure, hypoxia 5. Obesity Rec: 1. Cont. current care -> improving; hopeful home soon Plan of care reviewed w/ patient, he understands/agrees Subjective Date of service: 09/14/20 Principal diagnosis: COVID Interval history: No events. SOB better now on 5L NC. No new complaints. Active Medications Apixaban (Apixaban 5 Mg Tab) 5 mg PO Q12HR [facility]; Protocol Last Admin: 09/14/20 12:05 Dose: 5 mg Documented by: Artificial Tears (Hypromellose 0.5% Ophth Soln 15 Ml) 2 drops OU Q4H PRN PRN Reason: Dry Eye(s) Ascorbic Acid (Ascorbic Acid 500 Mg Tab) 500 mg PO BID [facility] Last Admin: 09/14/20 12:06 Dose: 500 mg Documented by: Cholecalciferol (Cholecalciferol (Vit D3) 5,000 Unit Tab) 5,000 unit PO DAILY [facility] Last Admin: 09/14/20 12:06 Dose: 5,000 unit Documented by: Famotidine (Famotidine 20 Mg Tab) 20 mg PO BID [facility] Last Admin: 09/14/20 12:06 Dose: 20 mg Documented by: Methylprednisolone Sodium Succinate (Methylprednisolone Sod Succinate 40 Mg/1 Ml Inj) 40 mg IV Q12HR [facility] Last Admin: 09/14/20 12:06 Dose: 40 mg Documented by: Zinc Sulfate (Zinc Sulfate 220 Mg Cap) 220 mg PO QDAY [facility] Last Admin: 09/14/20 12:05 Dose: 220 mg Documented by: Objective Vital Signs - 12hr 09/14/20 09/14/20 09/14/20 08:00 11:00 16:54 O2 Sat by Pulse 98 96 95 Oximetry Constitutional: no acute distress, alert, other (obese) Eyes: non-icteric ENT: oropharynx moist Neck: supple Effort: normal Ascultation: Bilateral: clear Cardiovascular: regular rate and rhythm (no mrg) Gastrointestinal: normoactive bowel sounds, soft, non-distended Integumentary: normal Extremities: no cyanosis, no edema, pink and warm Neurologic: normal mental status, non-focal exam Psychiatric: mood appropriate, affect normal CBC and BMP: 09/11/20 05:53 09/11/20 05:53 ABG, PT/INR, D-dimer: ABG ABG pH 7.313 pH Units (7.350-7.450) L 08/25/20 12:30 POC ABG pCO2 46.9 mmHg (32.0-48.0) 08/14/20 08:23 ABG pCO2 67.2 mm Hg 08/25/20 12:30 POC ABG pO2 50.0 mmHg (83-108) L 08/14/20 08:23 ABG pO2 76.2 mm Hg (80.0-90.0) L 08/25/20 12:30 POC ABG HCO3 31.4 08/14/20 08:23 ABG O2 Saturation 94.9 % (95.0-99.0) L 08/25/20 12:30 PT/INR, D-dimer PT 12.6 Sec. (12.2-14.9) 08/10/20 08:29 INR 0.96 (0.87-1.13) 08/10/20 08:29 D-Dimer 548.23 ng/mlDDU (0-234) H 09/10/20 10:24 Abnormal lab findings: Abnormal Labs 08/10/20 08/10/20 08/10/20 08:29 08:29 08:29 WBC Lymph % (Auto) [place] % (Auto) 8.4 H Lymph # (Auto) [place] # (Auto) Seg Neutrophils % Seg Neuts % (Manual) Lymphocytes % (Manual) Seg Neutrophils # Seg Neutrophils # Man Lymphocytes # (Manual) Monocytes # (Manual) D-Dimer ABG pH POC ABG pCO2 POC ABG pO2 ABG pO2 ABG HCO3 ABG O2 Saturation ABG Base Excess ABG Hemoglobin ABG Oxyhemoglobin ABG Potassium ABG Glucose VBG pH 7.303 L Oxyhemoglobin Sodium Potassium Chloride Carbon Dioxide BUN Creatinine Glucose 132 H POC Glucose Hemoglobin A1c Magnesium Ferritin AST Lactate Dehydrogenase C-Reactive Protein Albumin Arterial Blood Glucose Coronavirus (PCR) 08/11/20 08/11/20 08/11/20 05:39 05:39 05:39 WBC Lymph % (Auto) 12.5 L [place] % (Auto) Lymph # (Auto) [place] # (Auto) Seg Neutrophils % 84.2 H Seg Neuts % (Manual) Lymphocytes % (Manual) Seg Neutrophils # 9.1 H Seg Neutrophils # Man Lymphocytes # (Manual) Monocytes # (Manual) D-Dimer ABG pH POC ABG pCO2 POC ABG pO2 ABG pO2 ABG HCO3 ABG O2 Saturation ABG Base Excess ABG Hemoglobin ABG Oxyhemoglobin ABG Potassium ABG Glucose VBG pH Oxyhemoglobin Sodium Potassium Chloride Carbon Dioxide BUN Creatinine Glucose 125 H POC Glucose Hemoglobin A1c 6.1 H Magnesium Ferritin AST Lactate Dehydrogenase C-Reactive Protein Albumin Arterial Blood Glucose Coronavirus (PCR) 08/11/20 08/11/20 08/11/20 18:58 18:58 18:58 WBC Lymph % (Auto) [place] % (Auto) Lymph # (Auto) [place] # (Auto) Seg Neutrophils % Seg Neuts % (Manual) Lymphocytes % (Manual) Seg Neutrophils # Seg Neutrophils # Man Lymphocytes # (Manual) Monocytes # (Manual) D-Dimer 464.84 H ABG pH POC ABG pCO2 POC ABG pO2 ABG pO2 ABG HCO3 ABG O2 Saturation ABG Base Excess ABG Hemoglobin ABG Oxyhemoglobin ABG Potassium ABG Glucose VBG pH Oxyhemoglobin Sodium Potassium Chloride Carbon Dioxide BUN Creatinine Glucose POC Glucose Hemoglobin A1c Magnesium Ferritin 528.7 H AST Lactate Dehydrogenase 637 H C-Reactive Protein 11.30 H Albumin Arterial Blood Glucose Coronavirus (PCR) 08/11/20 08/11/20 08/12/20 19:08 Unknown 06:29 WBC 11.2 H Lymph % (Auto) 8.6 L [place] % (Auto) Lymph # (Auto) 1.0 L [place] # (Auto) Seg Neutrophils % 88.3 H Seg Neuts % (Manual) Lymphocytes % (Manual) Seg Neutrophils # 9.8 H Seg Neutrophils # Man Lymphocytes # (Manual) Monocytes # (Manual) D-Dimer ABG pH POC ABG pCO2 POC ABG pO2 ABG pO2 ABG HCO3 ABG O2 Saturation ABG Base Excess ABG Hemoglobin ABG Oxyhemoglobin ABG Potassium ABG Glucose VBG pH Oxyhemoglobin Sodium Potassium Chloride Carbon Dioxide BUN Creatinine Glucose 161 H POC Glucose Hemoglobin A1c Magnesium Ferritin AST Lactate Dehydrogenase C-Reactive Protein Albumin Arterial Blood Glucose Coronavirus (PCR) Positive A 08/12/20 08/12/20 08/12/20 06:29 06:29 06:29 WBC Lymph % (Auto) [place] % (Auto) Lymph # (Auto) [place] # (Auto) Seg Neutrophils % Seg Neuts % (Manual) Lymphocytes % (Manual) Seg Neutrophils # Seg Neutrophils # Man Lymphocytes # (Manual) Monocytes # (Manual) D-Dimer 830.34 H ABG pH POC ABG pCO2 POC ABG pO2 ABG pO2 ABG HCO3 ABG O2 Saturation ABG Base Excess ABG Hemoglobin ABG Oxyhemoglobin ABG Potassium ABG Glucose VBG pH Oxyhemoglobin Sodium Potassium Chloride Carbon Dioxide 31 H BUN Creatinine Glucose 138 H POC Glucose Hemoglobin A1c Magnesium Ferritin 572.6 H AST 42 H Lactate Dehydrogenase 706 H C-Reactive Protein 17.30 H Albumin 3.7 L Arterial Blood Glucose Coronavirus (PCR) 08/12/20 08/12/20 08/12/20 13:21 14:55 21:59 WBC Lymph % (Auto) [place] % (Auto) Lymph # (Auto) [place] # (Auto) Seg Neutrophils % Seg Neuts % (Manual) Lymphocytes % (Manual) Seg Neutrophils # Seg Neutrophils # Man Lymphocytes # (Manual) Monocytes # (Manual) D-Dimer ABG pH 7.315 L POC ABG pCO2 57.1 H POC ABG pO2 47.8 L ABG pO2 65.8 L ABG HCO3 31.4 H ABG O2 Saturation 91.7 L ABG Base Excess ABG Hemoglobin 19.3 H ABG Oxyhemoglobin ABG Potassium 4.9 H ABG Glucose 182 H VBG pH Oxyhemoglobin 89.7 L Sodium Potassium Chloride Carbon Dioxide BUN Creatinine Glucose POC Glucose 142 H Hemoglobin A1c Magnesium Ferritin AST Lactate Dehydrogenase C-Reactive Protein Albumin Arterial Blood Glucose 182 H Coronavirus (PCR) 08/13/20 08/13/20 08/13/20 05:35 05:35 12:11 WBC 12.0 H Lymph % (Auto) 8.1 L [place] % (Auto) Lymph # (Auto) 1.0 L [place] # (Auto) Seg Neutrophils % 88.0 H Seg Neuts % (Manual) Lymphocytes % (Manual) Seg Neutrophils # 10.5 H Seg Neutrophils # Man Lymphocytes # (Manual) Monocytes # (Manual) D-Dimer ABG pH POC ABG pCO2 POC ABG pO2 ABG pO2 ABG HCO3 ABG O2 Saturation ABG Base Excess ABG Hemoglobin ABG Oxyhemoglobin ABG Potassium ABG Glucose VBG pH Oxyhemoglobin Sodium Potassium 5.1 H Chloride Carbon Dioxide 31 H BUN 25 H Creatinine Glucose 174 H POC Glucose 154 H Hemoglobin A1c Magnesium Ferritin AST 41 H Lactate Dehydrogenase 996 H C-Reactive Protein Albumin 3.8 L Arterial Blood Glucose Coronavirus (PCR) 08/13/20 08/13/20 08/14/20 16:18 23:24 05:21 WBC 14.2 H Lymph % (Auto) 8.2 L [place] % (Auto) Lymph # (Auto) [place] # (Auto) 0.9 H Seg Neutrophils % 85.4 H Seg Neuts % (Manual) Lymphocytes % (Manual) Seg Neutrophils # 12.2 H Seg Neutrophils # Man Lymphocytes # (Manual) Monocytes # (Manual) D-Dimer ABG pH POC ABG pCO2 POC ABG pO2 ABG pO2 ABG HCO3 ABG O2 Saturation ABG Base Excess ABG Hemoglobin ABG Oxyhemoglobin ABG Potassium ABG Glucose VBG pH Oxyhemoglobin Sodium Potassium Chloride Carbon Dioxide BUN Creatinine Glucose POC Glucose 188 H 127 H Hemoglobin A1c Magnesium Ferritin AST Lactate Dehydrogenase C-Reactive Protein Albumin Arterial Blood Glucose Coronavirus (PCR) 08/14/20 08/14/20 08/14/20 05:21 05:21 05:21 WBC Lymph % (Auto) [place] % (Auto) Lymph # (Auto) [place] # (Auto) Seg Neutrophils % Seg Neuts % (Manual) Lymphocytes % (Manual) Seg Neutrophils # Seg Neutrophils # Man Lymphocytes # (Manual) Monocytes # (Manual) D-Dimer > 26944 H ABG pH POC ABG pCO2 POC ABG pO2 ABG pO2 ABG HCO3 ABG O2 Saturation ABG Base Excess ABG Hemoglobin ABG Oxyhemoglobin ABG Potassium ABG Glucose VBG pH Oxyhemoglobin Sodium Potassium Chloride Carbon Dioxide 32 H 33 H BUN 26 H 26 H Creatinine Glucose 152 H 156 H POC Glucose Hemoglobin A1c Magnesium Ferritin AST 53 H 54 H Lactate Dehydrogenase 1249 H C-Reactive Protein 9.90 H Albumin 3.7 L 3.7 L Arterial Blood Glucose Coronavirus (PCR) 08/14/20 08/14/20 08/14/20 05:21 05:58 08:23 WBC Lymph % (Auto) [place] % (Auto) Lymph # (Auto) [place] # (Auto) Seg Neutrophils % Seg Neuts % (Manual) Lymphocytes % (Manual) Seg Neutrophils # Seg Neutrophils # Man Lymphocytes # (Manual) Monocytes # (Manual) D-Dimer ABG pH POC ABG pCO2 POC ABG pO2 50.0 L ABG pO2 ABG HCO3 ABG O2 Saturation ABG Base Excess ABG Hemoglobin ABG Oxyhemoglobin 84.0 L ABG Potassium ABG Glucose 141 H VBG pH Oxyhemoglobin Sodium Potassium Chloride Carbon Dioxide BUN Creatinine Glucose POC Glucose 139 H Hemoglobin A1c Magnesium Ferritin 1198.0 H AST Lactate Dehydrogenase C-Reactive Protein Albumin Arterial Blood Glucose 141 H Coronavirus (PCR) 08/15/20 08/15/20 08/16/20 05:16 05:16 05:26 WBC 13.7 H 17.7 H Lymph % (Auto) 8.2 L [place] % (Auto) Lymph # (Auto) [place] # (Auto) Seg Neutrophils % 86.2 H Seg Neuts % (Manual) 91.0 H 88.0 H Lymphocytes % (Manual) 7.0 L 9.0 L Seg Neutrophils # 15.3 H Seg Neutrophils # Man 12.5 H 15.6 H Lymphocytes # (Manual) 1.0 L Monocytes # (Manual) D-Dimer ABG pH POC ABG pCO2 POC ABG pO2 ABG pO2 ABG HCO3 ABG O2 Saturation ABG Base Excess ABG Hemoglobin ABG Oxyhemoglobin ABG Potassium ABG Glucose VBG pH Oxyhemoglobin Sodium Potassium Chloride Carbon Dioxide 32 H BUN 29 H Creatinine Glucose 150 H POC Glucose Hemoglobin A1c Magnesium Ferritin AST Lactate Dehydrogenase 1150 H C-Reactive Protein Albumin 3.5 L Arterial Blood Glucose Coronavirus (PCR) 08/16/20 08/16/20 08/16/20 05:26 05:26 05:26 WBC Lymph % (Auto) [place] % (Auto) Lymph # (Auto) [place] # (Auto) Seg Neutrophils % Seg Neuts % (Manual) Lymphocytes % (Manual) Seg Neutrophils # Seg Neutrophils # Man Lymphocytes # (Manual) Monocytes # (Manual) D-Dimer > 79575 H ABG pH POC ABG pCO2 POC ABG pO2 ABG pO2 ABG HCO3 ABG O2 Saturation ABG Base Excess ABG Hemoglobin ABG Oxyhemoglobin ABG Potassium ABG Glucose VBG pH Oxyhemoglobin Sodium Potassium 5.2 H Chloride Carbon Dioxide BUN 25 H Creatinine Glucose 163 H POC Glucose Hemoglobin A1c Magnesium Ferritin 1013.0 H AST Lactate Dehydrogenase C-Reactive Protein 4.00 H Albumin 3.6 L Arterial Blood Glucose Coronavirus (PCR) 08/17/20 08/17/20 08/17/20 05:06 05:06 07:51 WBC 20.7 H Lymph % (Auto) [place] % (Auto) Lymph # (Auto) [place] # (Auto) Seg Neutrophils % Seg Neuts % (Manual) 86.0 H Lymphocytes % (Manual) 7.0 L Seg Neutrophils # Seg Neutrophils # Man 17.8 H Lymphocytes # (Manual) Monocytes # (Manual) 1.2 H D-Dimer ABG pH POC ABG pCO2 POC ABG pO2 ABG pO2 ABG HCO3 ABG O2 Saturation ABG Base Excess ABG Hemoglobin ABG Oxyhemoglobin ABG Potassium ABG Glucose VBG pH Oxyhemoglobin Sodium Potassium Chloride 96.5 L Carbon Dioxide 31 H BUN 29 H Creatinine Glucose 121 H POC Glucose 110 H Hemoglobin A1c Magnesium Ferritin AST 46 H Lactate Dehydrogenase C-Reactive Protein Albumin 3.7 L Arterial Blood Glucose Coronavirus (PCR) 08/17/20 08/17/20 08/18/20 11:42 21:45 05:13 WBC Lymph % (Auto) [place] % (Auto) Lymph # (Auto) [place] # (Auto) Seg Neutrophils % Seg Neuts % (Manual) Lymphocytes % (Manual) Seg Neutrophils # Seg Neutrophils # Man Lymphocytes # (Manual) Monocytes # (Manual) D-Dimer > 1000 H ABG pH POC ABG pCO2 POC ABG pO2 ABG pO2 ABG HCO3 ABG O2 Saturation ABG Base Excess ABG Hemoglobin ABG Oxyhemoglobin ABG Potassium ABG Glucose VBG pH Oxyhemoglobin Sodium Potassium Chloride Carbon Dioxide BUN Creatinine Glucose POC Glucose 122 H 143 H Hemoglobin A1c Magnesium Ferritin AST Lactate Dehydrogenase C-Reactive Protein Albumin Arterial Blood Glucose Coronavirus (PCR) 08/18/20 08/18/20 08/21/20 05:13 05:13 11:17 WBC Lymph % (Auto) [place] % (Auto) Lymph # (Auto) [place] # (Auto) Seg Neutrophils % Seg Neuts % (Manual) Lymphocytes % (Manual) Seg Neutrophils # Seg Neutrophils # Man Lymphocytes # (Manual) Monocytes # (Manual) D-Dimer ABG pH POC ABG pCO2 POC ABG pO2 ABG pO2 ABG HCO3 ABG O2 Saturation ABG Base Excess ABG Hemoglobin ABG Oxyhemoglobin ABG Potassium ABG Glucose VBG pH Oxyhemoglobin Sodium 133 L Potassium Chloride 94.7 L Carbon Dioxide BUN 33 H Creatinine Glucose 110 H POC Glucose 151 H Hemoglobin A1c Magnesium Ferritin 979.8 H AST 50 H Lactate Dehydrogenase C-Reactive Protein Albumin 3.7 L Arterial Blood Glucose Coronavirus (PCR) 08/21/20 08/21/20 08/21/20 13:39 13:39 15:55 WBC Lymph % (Auto) [place] % (Auto) Lymph # (Auto) [place] # (Auto) Seg Neutrophils % Seg Neuts % (Manual) Lymphocytes % (Manual) Seg Neutrophils # Seg Neutrophils # Man Lymphocytes # (Manual) Monocytes # (Manual) D-Dimer 6731.66 H ABG pH POC ABG pCO2 POC ABG pO2 ABG pO2 ABG HCO3 ABG O2 Saturation ABG Base Excess ABG Hemoglobin ABG Oxyhemoglobin ABG Potassium ABG Glucose VBG pH Oxyhemoglobin Sodium Potassium Chloride Carbon Dioxide BUN Creatinine Glucose POC Glucose Hemoglobin A1c Magnesium Ferritin 1019.0 H AST Lactate Dehydrogenase 1251 H C-Reactive Protein Albumin Arterial Blood Glucose Coronavirus (PCR) 08/22/20 08/22/20 08/25/20 05:23 05:23 12:30 WBC 24.7 H Lymph % (Auto) [place] % (Auto) Lymph # (Auto) [place] # (Auto) Seg Neutrophils % Seg Neuts % (Manual) Lymphocytes % (Manual) Seg Neutrophils # Seg Neutrophils # Man Lymphocytes # (Manual) Monocytes # (Manual) D-Dimer ABG pH 7.313 L POC ABG pCO2 POC ABG pO2 ABG pO2 76.2 L ABG HCO3 33.3 H ABG O2 Saturation 94.9 L ABG Base Excess 5.0 H ABG Hemoglobin 13.4 L ABG Oxyhemoglobin ABG Potassium ABG Glucose VBG pH Oxyhemoglobin 93.0 L Sodium 136 L Potassium Chloride 96.3 L Carbon Dioxide BUN 24 H Creatinine 0.7 L Glucose 115 H POC Glucose Hemoglobin A1c Magnesium Ferritin AST Lactate Dehydrogenase C-Reactive Protein Albumin Arterial Blood Glucose Coronavirus (PCR) 08/25/20 08/25/20 08/25/20 16:08 16:08 16:08 WBC Lymph % (Auto) [place] % (Auto) Lymph # (Auto) [place] # (Auto) Seg Neutrophils % Seg Neuts % (Manual) Lymphocytes % (Manual) Seg Neutrophils # Seg Neutrophils # Man Lymphocytes # (Manual) Monocytes # (Manual) D-Dimer 4487.76 H ABG pH POC ABG pCO2 POC ABG pO2 ABG pO2 ABG HCO3 ABG O2 Saturation ABG Base Excess ABG Hemoglobin ABG Oxyhemoglobin ABG Potassium ABG Glucose VBG pH Oxyhemoglobin Sodium Potassium Chloride Carbon Dioxide BUN Creatinine Glucose POC Glucose Hemoglobin A1c Magnesium Ferritin 961.4 H AST Lactate Dehydrogenase 959 H C-Reactive Protein Albumin Arterial Blood Glucose Coronavirus (PCR) 08/26/20 08/26/20 08/31/20 07:11 07:11 10:56 WBC Lymph % (Auto) [place] % (Auto) 9.8 H Lymph # (Auto) [place] # (Auto) 1.0 H Seg Neutrophils % Seg Neuts % (Manual) Lymphocytes % (Manual) Seg Neutrophils # Seg Neutrophils # Man Lymphocytes # (Manual) Monocytes # (Manual) D-Dimer ABG pH POC ABG pCO2 POC ABG pO2 ABG pO2 ABG HCO3 ABG O2 Saturation ABG Base Excess ABG Hemoglobin ABG Oxyhemoglobin ABG Potassium ABG Glucose VBG pH Oxyhemoglobin Sodium 135 L Potassium Chloride 95.7 L 97.4 L Carbon Dioxide 33 H 34 H BUN Creatinine 0.6 L Glucose 109 H POC Glucose Hemoglobin A1c Magnesium 2.40 H Ferritin AST Lactate Dehydrogenase C-Reactive Protein Albumin Arterial Blood Glucose Coronavirus (PCR) 09/05/20 09/05/20 09/06/20 07:11 07:11 10:43 WBC 14.0 H Lymph % (Auto) 10.8 L [place] % (Auto) Lymph # (Auto) [place] # (Auto) Seg Neutrophils % 82.6 H Seg Neuts % (Manual) Lymphocytes % (Manual) Seg Neutrophils # 11.6 H Seg Neutrophils # Man Lymphocytes # (Manual) Monocytes # (Manual) D-Dimer 877.51 H ABG pH POC ABG pCO2 POC ABG pO2 ABG pO2 ABG HCO3 ABG O2 Saturation ABG Base Excess ABG Hemoglobin ABG Oxyhemoglobin ABG Potassium ABG Glucose VBG pH Oxyhemoglobin Sodium Potassium Chloride Carbon Dioxide 36 H BUN 21 H Creatinine 0.6 L Glucose 123 H POC Glucose Hemoglobin A1c Magnesium Ferritin AST Lactate Dehydrogenase C-Reactive Protein Albumin Arterial Blood Glucose Coronavirus (PCR) 09/06/20 09/06/20 09/10/20 10:43 10:43 08:01 WBC Lymph % (Auto) [place] % (Auto) Lymph # (Auto) [place] # (Auto) Seg Neutrophils % Seg Neuts % (Manual) Lymphocytes % (Manual) Seg Neutrophils # Seg Neutrophils # Man Lymphocytes # (Manual) Monocytes # (Manual) D-Dimer ABG pH POC ABG pCO2 POC ABG pO2 ABG pO2 ABG HCO3 ABG O2 Saturation ABG Base Excess ABG Hemoglobin ABG Oxyhemoglobin ABG Potassium ABG Glucose VBG pH Oxyhemoglobin Sodium Potassium Chloride Carbon Dioxide 32 H BUN Creatinine 0.7 L Glucose 140 H POC Glucose Hemoglobin A1c Magnesium Ferritin 666.4 H AST Lactate Dehydrogenase 607 H C-Reactive Protein Albumin Arterial Blood Glucose Coronavirus (PCR) 09/10/20 09/10/20 09/10/20 10:24 10:24 10:24 WBC Lymph % (Auto) [place] % (Auto) Lymph # (Auto) [place] # (Auto) Seg Neutrophils % Seg Neuts % (Manual) Lymphocytes % (Manual) Seg Neutrophils # Seg Neutrophils # Man Lymphocytes # (Manual) Monocytes # (Manual) D-Dimer 548.23 H ABG pH POC ABG pCO2 POC ABG pO2 ABG pO2 ABG HCO3 ABG O2 Saturation ABG Base Excess ABG Hemoglobin ABG Oxyhemoglobin ABG Potassium ABG Glucose VBG pH Oxyhemoglobin Sodium Potassium Chloride Carbon Dioxide BUN Creatinine Glucose POC Glucose Hemoglobin A1c Magnesium Ferritin 719.2 H AST Lactate Dehydrogenase 495 H C-Reactive Protein Albumin Arterial Blood Glucose Coronavirus (PCR) 09/11/20 09/11/20 05:53 05:53 WBC 17.7 H Lymph % (Auto) 11.2 L [place] % (Auto) Lymph # (Auto) [place] # (Auto) 0.9 H Seg Neutrophils % 83.1 H Seg Neuts % (Manual) Lymphocytes % (Manual) Seg Neutrophils # 14.7 H Seg Neutrophils # Man Lymphocytes # (Manual) Monocytes # (Manual) D-Dimer ABG pH POC ABG pCO2 POC ABG pO2 ABG pO2 ABG HCO3 ABG O2 Saturation ABG Base Excess ABG Hemoglobin ABG Oxyhemoglobin ABG Potassium ABG Glucose VBG pH Oxyhemoglobin Sodium Potassium Chloride 94.9 L Carbon Dioxide 32 H BUN Creatinine 0.7 L Glucose 137 H POC Glucose Hemoglobin A1c Magnesium Ferritin AST Lactate Dehydrogenase C-Reactive Protein Albumin Arterial Blood Glucose Coronavirus (PCR) Chest x-ray: report reviewed, image reviewed
[2020-09-15] MEDS: ZINC SULFATE 220 MG CAP PO SCH (09:08)
[2020-09-15] MEDS: APIXABAN 5 MG TAB PO SCH ×2 (09:08→21:00)
[2020-09-15] MEDS: CHOLECALCIFEROL (VIT D3) 5,000 UNIT TAB PO SCH (09:08)
[2020-09-15] MEDS: methylPREDNISolone Sod Succinate 40 MG/1 ML INJ IV SCH (09:08)
[2020-09-15] MEDS: ASCORBIC ACID 500 MG TAB PO SCH ×2 (09:08→21:00)
[2020-09-15] MEDS: FAMOTIDINE 20 MG TAB PO SCH ×2 (09:09→21:00)
--- NOTE | 2020-09-15 13:52 | Progress Note ---
Assessment and Plan Assessment and Plan Imp: 1. Covid-19 2. Viral pneumonia 3. ARDS 4. Acute respiratory failure, hypoxia 5. Obesity, rule out obstructive sleep apnea Rec: 1. Cont. current care -> improving; hopeful home soon 2. Consider sleep study as outpatient. Subjective Date of service: 09/15/20 Principal diagnosis: COVID Interval history: Patient feeling fairly well no new complaints still on some supplemental oxygen. Does have history of snoring possible have sleep apnea Objective Vital Signs - 12hr 09/15/20 09/15/20 09/15/20 03:26 05:00 07:11 Temperature 98.4 F Pulse Rate 77 82 Respiratory 24 20 Rate Blood Pressure 143/81 [right arm] O2 Sat by Pulse 94 95 99 Oximetry 09/15/20 09:02 Temperature Pulse Rate Respiratory Rate Blood Pressure [right arm] O2 Sat by Pulse 96 Oximetry Constitutional: no acute distress, alert, other (obese) Eyes: non-icteric ENT: oropharynx moist Neck: supple Effort: normal Ascultation: Bilateral: clear Cardiovascular: regular rate and rhythm (no mrg) Gastrointestinal: normoactive bowel sounds, soft, non-distended Integumentary: normal Extremities: no cyanosis, no edema, pink and warm Neurologic: normal mental status, non-focal exam Psychiatric: mood appropriate, affect normal CBC and BMP: 09/11/20 05:53 09/11/20 05:53 ABG, PT/INR, D-dimer: ABG ABG pH 7.313 pH Units (7.350-7.450) L 08/25/20 12:30 POC ABG pCO2 46.9 mmHg (32.0-48.0) 08/14/20 08:23 ABG pCO2 67.2 mm Hg 08/25/20 12:30 POC ABG pO2 50.0 mmHg (83-108) L 08/14/20 08:23 ABG pO2 76.2 mm Hg (80.0-90.0) L 08/25/20 12:30 POC ABG HCO3 31.4 08/14/20 08:23 ABG O2 Saturation 94.9 % (95.0-99.0) L 08/25/20 12:30 PT/INR, D-dimer PT 12.6 Sec. (12.2-14.9) 08/10/20 08:29 INR 0.96 (0.87-1.13) 08/10/20 08:29 D-Dimer 548.23 ng/mlDDU (0-234) H 09/10/20 10:24 Abnormal lab findings: Abnormal Labs 08/10/20 08/10/20 08/10/20 08:29 08:29 08:29 WBC Lymph % (Auto) [place] % (Auto) 8.4 H Lymph # (Auto) [place] # (Auto) Seg Neutrophils % Seg Neuts % (Manual) Lymphocytes % (Manual) Seg Neutrophils # Seg Neutrophils # Man Lymphocytes # (Manual) Monocytes # (Manual) D-Dimer ABG pH POC ABG pCO2 POC ABG pO2 ABG pO2 ABG HCO3 ABG O2 Saturation ABG Base Excess ABG Hemoglobin ABG Oxyhemoglobin ABG Potassium ABG Glucose VBG pH 7.303 L Oxyhemoglobin Sodium Potassium Chloride Carbon Dioxide BUN Creatinine Glucose 132 H POC Glucose Hemoglobin A1c Magnesium Ferritin AST Lactate Dehydrogenase C-Reactive Protein Albumin Arterial Blood Glucose Coronavirus (PCR) 08/11/20 08/11/20 08/11/20 05:39 05:39 05:39 WBC Lymph % (Auto) 12.5 L [place] % (Auto) Lymph # (Auto) [place] # (Auto) Seg Neutrophils % 84.2 H Seg Neuts % (Manual) Lymphocytes % (Manual) Seg Neutrophils # 9.1 H Seg Neutrophils # Man Lymphocytes # (Manual) Monocytes # (Manual) D-Dimer ABG pH POC ABG pCO2 POC ABG pO2 ABG pO2 ABG HCO3 ABG O2 Saturation ABG Base Excess ABG Hemoglobin ABG Oxyhemoglobin ABG Potassium ABG Glucose VBG pH Oxyhemoglobin Sodium Potassium Chloride Carbon Dioxide BUN Creatinine Glucose 125 H POC Glucose Hemoglobin A1c 6.1 H Magnesium Ferritin AST Lactate Dehydrogenase C-Reactive Protein Albumin Arterial Blood Glucose Coronavirus (PCR) 08/11/20 08/11/20 08/11/20 18:58 18:58 18:58 WBC Lymph % (Auto) [place] % (Auto) Lymph # (Auto) [place] # (Auto) Seg Neutrophils % Seg Neuts % (Manual) Lymphocytes % (Manual) Seg Neutrophils # Seg Neutrophils # Man Lymphocytes # (Manual) Monocytes # (Manual) D-Dimer 464.84 H ABG pH POC ABG pCO2 POC ABG pO2 ABG pO2 ABG HCO3 ABG O2 Saturation ABG Base Excess ABG Hemoglobin ABG Oxyhemoglobin ABG Potassium ABG Glucose VBG pH Oxyhemoglobin Sodium Potassium Chloride Carbon Dioxide BUN Creatinine Glucose POC Glucose Hemoglobin A1c Magnesium Ferritin 528.7 H AST Lactate Dehydrogenase 637 H C-Reactive Protein 11.30 H Albumin Arterial Blood Glucose Coronavirus (PCR) 08/11/20 08/11/20 08/12/20 19:08 Unknown 06:29 WBC 11.2 H Lymph % (Auto) 8.6 L [place] % (Auto) Lymph # (Auto) 1.0 L [place] # (Auto) Seg Neutrophils % 88.3 H Seg Neuts % (Manual) Lymphocytes % (Manual) Seg Neutrophils # 9.8 H Seg Neutrophils # Man Lymphocytes # (Manual) Monocytes # (Manual) D-Dimer ABG pH POC ABG pCO2 POC ABG pO2 ABG pO2 ABG HCO3 ABG O2 Saturation ABG Base Excess ABG Hemoglobin ABG Oxyhemoglobin ABG Potassium ABG Glucose VBG pH Oxyhemoglobin Sodium Potassium Chloride Carbon Dioxide BUN Creatinine Glucose 161 H POC Glucose Hemoglobin A1c Magnesium Ferritin AST Lactate Dehydrogenase C-Reactive Protein Albumin Arterial Blood Glucose Coronavirus (PCR) Positive A 08/12/20 08/12/20 08/12/20 06:29 06:29 06:29 WBC Lymph % (Auto) [place] % (Auto) Lymph # (Auto) [place] # (Auto) Seg Neutrophils % Seg Neuts % (Manual) Lymphocytes % (Manual) Seg Neutrophils # Seg Neutrophils # Man Lymphocytes # (Manual) Monocytes # (Manual) D-Dimer 830.34 H ABG pH POC ABG pCO2 POC ABG pO2 ABG pO2 ABG HCO3 ABG O2 Saturation ABG Base Excess ABG Hemoglobin ABG Oxyhemoglobin ABG Potassium ABG Glucose VBG pH Oxyhemoglobin Sodium Potassium Chloride Carbon Dioxide 31 H BUN Creatinine Glucose 138 H POC Glucose Hemoglobin A1c Magnesium Ferritin 572.6 H AST 42 H Lactate Dehydrogenase 706 H C-Reactive Protein 17.30 H Albumin 3.7 L Arterial Blood Glucose Coronavirus (PCR) 08/12/20 08/12/20 08/12/20 13:21 14:55 21:59 WBC Lymph % (Auto) [place] % (Auto) Lymph # (Auto) [place] # (Auto) Seg Neutrophils % Seg Neuts % (Manual) Lymphocytes % (Manual) Seg Neutrophils # Seg Neutrophils # Man Lymphocytes # (Manual) Monocytes # (Manual) D-Dimer ABG pH 7.315 L POC ABG pCO2 57.1 H POC ABG pO2 47.8 L ABG pO2 65.8 L ABG HCO3 31.4 H ABG O2 Saturation 91.7 L ABG Base Excess ABG Hemoglobin 19.3 H ABG Oxyhemoglobin ABG Potassium 4.9 H ABG Glucose 182 H VBG pH Oxyhemoglobin 89.7 L Sodium Potassium Chloride Carbon Dioxide BUN Creatinine Glucose POC Glucose 142 H Hemoglobin A1c Magnesium Ferritin AST Lactate Dehydrogenase C-Reactive Protein Albumin Arterial Blood Glucose 182 H Coronavirus (PCR) 08/13/20 08/13/20 08/13/20 05:35 05:35 12:11 WBC 12.0 H Lymph % (Auto) 8.1 L [place] % (Auto) Lymph # (Auto) 1.0 L [place] # (Auto) Seg Neutrophils % 88.0 H Seg Neuts % (Manual) Lymphocytes % (Manual) Seg Neutrophils # 10.5 H Seg Neutrophils # Man Lymphocytes # (Manual) Monocytes # (Manual) D-Dimer ABG pH POC ABG pCO2 POC ABG pO2 ABG pO2 ABG HCO3 ABG O2 Saturation ABG Base Excess ABG Hemoglobin ABG Oxyhemoglobin ABG Potassium ABG Glucose VBG pH Oxyhemoglobin Sodium Potassium 5.1 H Chloride Carbon Dioxide 31 H BUN 25 H Creatinine Glucose 174 H POC Glucose 154 H Hemoglobin A1c Magnesium Ferritin AST 41 H Lactate Dehydrogenase 996 H C-Reactive Protein Albumin 3.8 L Arterial Blood Glucose Coronavirus (PCR) 08/13/20 08/13/20 08/14/20 16:18 23:24 05:21 WBC 14.2 H Lymph % (Auto) 8.2 L [place] % (Auto) Lymph # (Auto) [place] # (Auto) 0.9 H Seg Neutrophils % 85.4 H Seg Neuts % (Manual) Lymphocytes % (Manual) Seg Neutrophils # 12.2 H Seg Neutrophils # Man Lymphocytes # (Manual) Monocytes # (Manual) D-Dimer ABG pH POC ABG pCO2 POC ABG pO2 ABG pO2 ABG HCO3 ABG O2 Saturation ABG Base Excess ABG Hemoglobin ABG Oxyhemoglobin ABG Potassium ABG Glucose VBG pH Oxyhemoglobin Sodium Potassium Chloride Carbon Dioxide BUN Creatinine Glucose POC Glucose 188 H 127 H Hemoglobin A1c Magnesium Ferritin AST Lactate Dehydrogenase C-Reactive Protein Albumin Arterial Blood Glucose Coronavirus (PCR) 0308/14/20 08/14/20 05:21 05:21 05:21 WBC Lymph % (Auto) [place] % (Auto) Lymph # (Auto) [place] # (Auto) Seg Neutrophils % Seg Neuts % (Manual) Lymphocytes % (Manual) Seg Neutrophils # Seg Neutrophils # Man Lymphocytes # (Manual) Monocytes # (Manual) D-Dimer > 35101 H ABG pH POC ABG pCO2 POC ABG pO2 ABG pO2 ABG HCO3 ABG O2 Saturation ABG Base Excess ABG Hemoglobin ABG Oxyhemoglobin ABG Potassium ABG Glucose VBG pH Oxyhemoglobin Sodium Potassium Chloride Carbon Dioxide 32 H 33 H BUN 26 H 26 H Creatinine Glucose 152 H 156 H POC Glucose Hemoglobin A1c Magnesium Ferritin AST 53 H 54 H Lactate Dehydrogenase 1249 H C-Reactive Protein 9.90 H Albumin 3.7 L 3.7 L Arterial Blood Glucose Coronavirus (PCR) 08/14/20 08/14/20 08/14/20 05:21 05:58 08:23 WBC Lymph % (Auto) [place] % (Auto) Lymph # (Auto) [place] # (Auto) Seg Neutrophils % Seg Neuts % (Manual) Lymphocytes % (Manual) Seg Neutrophils # Seg Neutrophils # Man Lymphocytes # (Manual) Monocytes # (Manual) D-Dimer ABG pH POC ABG pCO2 POC ABG pO2 50.0 L ABG pO2 ABG HCO3 ABG O2 Saturation ABG Base Excess ABG Hemoglobin ABG Oxyhemoglobin 84.0 L ABG Potassium ABG Glucose 141 H VBG pH Oxyhemoglobin Sodium Potassium Chloride Carbon Dioxide BUN Creatinine Glucose POC Glucose 139 H Hemoglobin A1c Magnesium Ferritin 1198.0 H AST Lactate Dehydrogenase C-Reactive Protein Albumin Arterial Blood Glucose 141 H Coronavirus (PCR) 08/15/20 08/15/20 08/16/20 05:16 05:16 05:26 WBC 13.7 H 17.7 H Lymph % (Auto) 8.2 L [place] % (Auto) Lymph # (Auto) [place] # (Auto) Seg Neutrophils % 86.2 H Seg Neuts % (Manual) 91.0 H 88.0 H Lymphocytes % (Manual) 7.0 L 9.0 L Seg Neutrophils # 15.3 H Seg Neutrophils # Man 12.5 H 15.6 H Lymphocytes # (Manual) 1.0 L Monocytes # (Manual) D-Dimer ABG pH POC ABG pCO2 POC ABG pO2 ABG pO2 ABG HCO3 ABG O2 Saturation ABG Base Excess ABG Hemoglobin ABG Oxyhemoglobin ABG Potassium ABG Glucose VBG pH Oxyhemoglobin Sodium Potassium Chloride Carbon Dioxide 32 H BUN 29 H Creatinine Glucose 150 H POC Glucose Hemoglobin A1c Magnesium Ferritin AST Lactate Dehydrogenase 1150 H C-Reactive Protein Albumin 3.5 L Arterial Blood Glucose Coronavirus (PCR) 08/16/20 08/16/20 08/16/20 05:26 05:26 05:26 WBC Lymph % (Auto) [place] % (Auto) Lymph # (Auto) [place] # (Auto) Seg Neutrophils % Seg Neuts % (Manual) Lymphocytes % (Manual) Seg Neutrophils # Seg Neutrophils # Man Lymphocytes # (Manual) Monocytes # (Manual) D-Dimer > 81620 H ABG pH POC ABG pCO2 POC ABG pO2 ABG pO2 ABG HCO3 ABG O2 Saturation ABG Base Excess ABG Hemoglobin ABG Oxyhemoglobin ABG Potassium ABG Glucose VBG pH Oxyhemoglobin Sodium Potassium 5.2 H Chloride Carbon Dioxide BUN 25 H Creatinine Glucose 163 H POC Glucose Hemoglobin A1c Magnesium Ferritin 1013.0 H AST Lactate Dehydrogenase C-Reactive Protein 4.00 H Albumin 3.6 L Arterial Blood Glucose Coronavirus (PCR) 08/17/20 08/17/20 08/17/20 05:06 05:06 07:51 WBC 20.7 H Lymph % (Auto) [place] % (Auto) Lymph # (Auto) [place] # (Auto) Seg Neutrophils % Seg Neuts % (Manual) 86.0 H Lymphocytes % (Manual) 7.0 L Seg Neutrophils # Seg Neutrophils # Man 17.8 H Lymphocytes # (Manual) Monocytes # (Manual) 1.2 H D-Dimer ABG pH POC ABG pCO2 POC ABG pO2 ABG pO2 ABG HCO3 ABG O2 Saturation ABG Base Excess ABG Hemoglobin ABG Oxyhemoglobin ABG Potassium ABG Glucose VBG pH Oxyhemoglobin Sodium Potassium Chloride 96.5 L Carbon Dioxide 31 H BUN 29 H Creatinine Glucose 121 H POC Glucose 110 H Hemoglobin A1c Magnesium Ferritin AST 46 H Lactate Dehydrogenase C-Reactive Protein Albumin 3.7 L Arterial Blood Glucose Coronavirus (PCR) 08/17/20 08/17/20 08/18/20 11:42 21:45 05:13 WBC Lymph % (Auto) [place] % (Auto) Lymph # (Auto) [place] # (Auto) Seg Neutrophils % Seg Neuts % (Manual) Lymphocytes % (Manual) Seg Neutrophils # Seg Neutrophils # Man Lymphocytes # (Manual) Monocytes # (Manual) D-Dimer > 1000 H ABG pH POC ABG pCO2 POC ABG pO2 ABG pO2 ABG HCO3 ABG O2 Saturation ABG Base Excess ABG Hemoglobin ABG Oxyhemoglobin ABG Potassium ABG Glucose VBG pH Oxyhemoglobin Sodium Potassium Chloride Carbon Dioxide BUN Creatinine Glucose POC Glucose 122 H 143 H Hemoglobin A1c Magnesium Ferritin AST Lactate Dehydrogenase C-Reactive Protein Albumin Arterial Blood Glucose Coronavirus (PCR) 08/18/20 08/18/20 08/21/20 05:13 05:13 11:17 WBC Lymph % (Auto) [place] % (Auto) Lymph # (Auto) [place] # (Auto) Seg Neutrophils % Seg Neuts % (Manual) Lymphocytes % (Manual) Seg Neutrophils # Seg Neutrophils # Man Lymphocytes # (Manual) Monocytes # (Manual) D-Dimer ABG pH POC ABG pCO2 POC ABG pO2 ABG pO2 ABG HCO3 ABG O2 Saturation ABG Base Excess ABG Hemoglobin ABG Oxyhemoglobin ABG Potassium ABG Glucose VBG pH Oxyhemoglobin Sodium 133 L Potassium Chloride 94.7 L Carbon Dioxide BUN 33 H Creatinine Glucose 110 H POC Glucose 151 H Hemoglobin A1c Magnesium Ferritin 979.8 H AST 50 H Lactate Dehydrogenase C-Reactive Protein Albumin 3.7 L Arterial Blood Glucose Coronavirus (PCR) 08/21/20 08/21/20 08/21/20 13:39 13:39 15:55 WBC Lymph % (Auto) [place] % (Auto) Lymph # (Auto) [place] # (Auto) Seg Neutrophils % Seg Neuts % (Manual) Lymphocytes % (Manual) Seg Neutrophils # Seg Neutrophils # Man Lymphocytes # (Manual) Monocytes # (Manual) D-Dimer 6731.66 H ABG pH POC ABG pCO2 POC ABG pO2 ABG pO2 ABG HCO3 ABG O2 Saturation ABG Base Excess ABG Hemoglobin ABG Oxyhemoglobin ABG Potassium ABG Glucose VBG pH Oxyhemoglobin Sodium Potassium Chloride Carbon Dioxide BUN Creatinine Glucose POC Glucose Hemoglobin A1c Magnesium Ferritin 1019.0 H AST Lactate Dehydrogenase 1251 H C-Reactive Protein Albumin Arterial Blood Glucose Coronavirus (PCR) 08/22/20 08/22/20 08/25/20 05:23 05:23 12:30 WBC 24.7 H Lymph % (Auto) [place] % (Auto) Lymph # (Auto) [place] # (Auto) Seg Neutrophils % Seg Neuts % (Manual) Lymphocytes % (Manual) Seg Neutrophils # Seg Neutrophils # Man Lymphocytes # (Manual) Monocytes # (Manual) D-Dimer ABG pH 7.313 L POC ABG pCO2 POC ABG pO2 ABG pO2 76.2 L ABG HCO3 33.3 H ABG O2 Saturation 94.9 L ABG Base Excess 5.0 H ABG Hemoglobin 13.4 L ABG Oxyhemoglobin ABG Potassium ABG Glucose VBG pH Oxyhemoglobin 93.0 L Sodium 136 L Potassium Chloride 96.3 L Carbon Dioxide BUN 24 H Creatinine 0.7 L Glucose 115 H POC Glucose Hemoglobin A1c Magnesium Ferritin AST Lactate Dehydrogenase C-Reactive Protein Albumin Arterial Blood Glucose Coronavirus (PCR) 08/25/20 08/25/20 08/25/20 16:08 16:08 16:08 WBC Lymph % (Auto) [place] % (Auto) Lymph # (Auto) [place] # (Auto) Seg Neutrophils % Seg Neuts % (Manual) Lymphocytes % (Manual) Seg Neutrophils # Seg Neutrophils # Man Lymphocytes # (Manual) Monocytes # (Manual) D-Dimer 4487.76 H ABG pH POC ABG pCO2 POC ABG pO2 ABG pO2 ABG HCO3 ABG O2 Saturation ABG Base Excess ABG Hemoglobin ABG Oxyhemoglobin ABG Potassium ABG Glucose VBG pH Oxyhemoglobin Sodium Potassium Chloride Carbon Dioxide BUN Creatinine Glucose POC Glucose Hemoglobin A1c Magnesium Ferritin 961.4 H AST Lactate Dehydrogenase 959 H C-Reactive Protein Albumin Arterial Blood Glucose Coronavirus (PCR) 08/26/20 08/26/20 08/31/20 07:11 07:11 10:56 WBC Lymph % (Auto) [place] % (Auto) 9.8 H Lymph # (Auto) [place] # (Auto) 1.0 H Seg Neutrophils % Seg Neuts % (Manual) Lymphocytes % (Manual) Seg Neutrophils # Seg Neutrophils # Man Lymphocytes # (Manual) Monocytes # (Manual) D-Dimer ABG pH POC ABG pCO2 POC ABG pO2 ABG pO2 ABG HCO3 ABG O2 Saturation ABG Base Excess ABG Hemoglobin ABG Oxyhemoglobin ABG Potassium ABG Glucose VBG pH Oxyhemoglobin Sodium 135 L Potassium Chloride 95.7 L 97.4 L Carbon Dioxide 33 H 34 H BUN Creatinine 0.6 L Glucose 109 H POC Glucose Hemoglobin A1c Magnesium 2.40 H Ferritin AST Lactate Dehydrogenase C-Reactive Protein Albumin Arterial Blood Glucose Coronavirus (PCR) 09/05/20 09/05/20 09/06/20 07:11 07:11 10:43 WBC 14.0 H Lymph % (Auto) 10.8 L [place] % (Auto) Lymph # (Auto) [place] # (Auto) Seg Neutrophils % 82.6 H Seg Neuts % (Manual) Lymphocytes % (Manual) Seg Neutrophils # 11.6 H Seg Neutrophils # Man Lymphocytes # (Manual) Monocytes # (Manual) D-Dimer 877.51 H ABG pH POC ABG pCO2 POC ABG pO2 ABG pO2 ABG HCO3 ABG O2 Saturation ABG Base Excess ABG Hemoglobin ABG Oxyhemoglobin ABG Potassium ABG Glucose VBG pH Oxyhemoglobin Sodium Potassium Chloride Carbon Dioxide 36 H BUN 21 H Creatinine 0.6 L Glucose 123 H POC Glucose Hemoglobin A1c Magnesium Ferritin AST Lactate Dehydrogenase C-Reactive Protein Albumin Arterial Blood Glucose Coronavirus (PCR) 09/06/20 09/06/20 09/10/20 10:43 10:43 08:01 WBC Lymph % (Auto) [place] % (Auto) Lymph # (Auto) [place] # (Auto) Seg Neutrophils % Seg Neuts % (Manual) Lymphocytes % (Manual) Seg Neutrophils # Seg Neutrophils # Man Lymphocytes # (Manual) Monocytes # (Manual) D-Dimer ABG pH POC ABG pCO2 POC ABG pO2 ABG pO2 ABG HCO3 ABG O2 Saturation ABG Base Excess ABG Hemoglobin ABG Oxyhemoglobin ABG Potassium ABG Glucose VBG pH Oxyhemoglobin Sodium Potassium Chloride Carbon Dioxide 32 H BUN Creatinine 0.7 L Glucose 140 H POC Glucose Hemoglobin A1c Magnesium Ferritin 666.4 H AST Lactate Dehydrogenase 607 H C-Reactive Protein Albumin Arterial Blood Glucose Coronavirus (PCR) 09/10/20 09/10/20 09/10/20 10:24 10:24 10:24 WBC Lymph % (Auto) [place] % (Auto) Lymph # (Auto) [place] # (Auto) Seg Neutrophils % Seg Neuts % (Manual) Lymphocytes % (Manual) Seg Neutrophils # Seg Neutrophils # Man Lymphocytes # (Manual) Monocytes # (Manual) D-Dimer 548.23 H ABG pH POC ABG pCO2 POC ABG pO2 ABG pO2 ABG HCO3 ABG O2 Saturation ABG Base Excess ABG Hemoglobin ABG Oxyhemoglobin ABG Potassium ABG Glucose VBG pH Oxyhemoglobin Sodium Potassium Chloride Carbon Dioxide BUN Creatinine Glucose POC Glucose Hemoglobin A1c Magnesium Ferritin 719.2 H AST Lactate Dehydrogenase 495 H C-Reactive Protein Albumin Arterial Blood Glucose Coronavirus (PCR) 09/11/20 09/11/20 05:53 05:53 WBC 17.7 H Lymph % (Auto) 11.2 L [place] % (Auto) Lymph # (Auto) [place] # (Auto) 0.9 H Seg Neutrophils % 83.1 H Seg Neuts % (Manual) Lymphocytes % (Manual) Seg Neutrophils # 14.7 H Seg Neutrophils # Man Lymphocytes # (Manual) Monocytes # (Manual) D-Dimer ABG pH POC ABG pCO2 POC ABG pO2 ABG pO2 ABG HCO3 ABG O2 Saturation ABG Base Excess ABG Hemoglobin ABG Oxyhemoglobin ABG Potassium ABG Glucose VBG pH Oxyhemoglobin Sodium Potassium Chloride 94.9 L Carbon Dioxide 32 H BUN Creatinine 0.7 L Glucose 137 H POC Glucose Hemoglobin A1c Magnesium Ferritin AST Lactate Dehydrogenase C-Reactive Protein Albumin Arterial Blood Glucose Coronavirus (PCR)
--- NOTE | 2020-09-15 14:43 | Progress Note ---
Assessment and Plan --Acute hypoxic respiratory failure secondary to COVID-19 PNA s/p high flow oxygen most recent numbers 25 L/60 FiO2/97 O2 sats with intermi ttent BiPAP Patient unstable to go for CTA chest to evaluate the cause of persistent hypoxia, cont eliquis for now pulmonary following, Home O2 evaluation at discharge --COVID-19 Pneumonia Continue steroids tapering dose s/p Remdesivir, s/p tocilizumab s/p HF NC O2, now on N/c, titrate and wean as tolerated --Right lower extremity DVT on LE Doppler study LE Doppler LE Doppler shows RLE DVT. Echocardiogram shows no right heart strain. On Eliquis per protocol --Sinus bradycardia /resolved Likely from remdesivir TSH wnl --Morbid obesity; BMI 40.4 Diet and exercise advised Patient needs outpatient bariatric surgical/medical weight reduction consult when medically stable --DVT prophylaxis;-on Eliquis[positive DVT] Continues to be on high flow oxygen/BiPAP wean as tolerated We will closely monitor the patient and adjust management as needed [employer] Bi Developer recommendations noted and appreciated Plan of care reviewed with the patient and his nurse and the case management Also discussed with territory sales manager medical and case management Brief history 30-year-old male with morbid obesity weighing about 310 pounds was admitted through emergency room with frontal headache for 3 days. Was admitted through emergency room with acute hypoxic respiratory failure requiring BiPAP and high flow nasal cannula oxygen, admitted to [facility] tested positive for Covid 19, evaluated and followed by pulmonary, ID, managed appropriately per Covid protocols however patient continues to require high flow nasal cannula oxygen and intermittent BiPAP, patient is morbidly obese Patient may need bariatric surgical consultation upon discharge for weight reduction program when medically stable Daily Hospital course: 08/11. Patient seen examined at bedside this morning. Has no complaints. Febrile this a.m.-103 Fahrenheit. On Tylenol as needed. COVID-19 test ordered. Remains on steroids. ID consult if COVID-19 is positive. 08/12. His COVID-19 test is positive. He was started on remdesivir last night. Oxygen requirement increased overnight. Inflammatory markers increasing. Repeat chest xray shows worsening infiltrates. Ordered BNP. Lasix 40mg IV ordered. Increased dexamethasone to 6mg BID. Pulmonology consulted. Will place on continuous pulse oximetry. Incentive spirometer ordered. Advised prone positioning. 08/13. Not feeling better. Seen on BIPAP. Remains on steroids, remdesivir and antibiotics. Vitals stable. 08/14. Still maintaining sats even on BiPAP. Lasix 40 mg IV ordered. D-dimer this a.m. is more than 10,000. Lovenox increased to 150 mg twice daily. Ultrasound lower extremities Doppler showed a right DVT. Echocardiogram ordered to rule out right heart strain. Pending results, patient may need vascular surgery evaluation for possible thrombectomy. Continue on BiPAP and continue to monitor respiratory status closely. 08/15. Sats better this AM. Received toculizumab yesterday. Advised him to prone as much as possible. Echo shows normal EF with no right heart strain. I/Os reviewed. He is diuresing well. Renal function is stable. Will give additional lasix today. Pulmonology following 08/16. Remains on remdesivir. Still on BIPAP. Will give lasix 20mg IV. HR is low - likley effect of remdesivir. Will continue to monitor closely 08/17. Sats in the 90's this AM. Still on BIPAP. 08/18; patient remains hypoxic requiring BiPAP and 100% nonrebreather intermittently 08/19; Continue supportive care, wean oxygen as tolerated. Encouraged PRONE positioning if able to tolerate. 08/20:Remains on BiPAP. continue lasix, still not proninig, encouraged to prone, FIO2 down to 90% with sat of 96%. Continue care, prognosis still guarded. 08/21: Patient down on high flow. Continue to encourage proning position. Still with guarded prognosis. Elevation in WBC noted to 20 this could be secondary to steroids I will continue to monitor. No fever noted at this time. Patient's respiratory status has stabilized on the high flow with no shallow breathing noted Discussed with the nurse at bedside 08/22; DC Lovenox therapeutic dose, start Eliquis per protocol to treat lower extremity DVT. 08/23; patient remains on high flow oxygen 40 L/100 FiO2/94% O2 sats, intermittent BiPAP 08/24; patient remains on high flow oxygen and BiPAP, consultants recommendations noted and appreciated 08/25; patient continues to be hypoxemic, on high flow oxygen 40L/ 100 FiO2/95 O2 sats and on intermittent BiPAP 08/26; patient continues to be on high flow oxygen, unable to wean follow pulmonary recommendations 08/27; patient remains on high flow oxygen 40 L/100% FiO2/95% O2 sats with intermittent BiPAP treatment 08/28; patient remains on high flow oxygen, strongly advised to prone as tolerated, consults and recommendations noted and appreciated 08/29; closely monitor the patient and adjust management as needed, wean oxygen as tolerated Home oxygen evaluation, DC planning when medically stable 08/30; clinically no change, remains on high flow oxygen, wean as tolerated Consultants recommendations noted . 08/31; patient remains on high flow oxygen 40/100/93 09/01/20;patient remains on high flow oxygen 40/100/93 09/02/20; no change clinically, remains high flow O2, 09/03: No change clinically, remains on high flow O2 09/04:Some omproment, Sitting in Chair On 80 percent FIO2, 40 liters NC O 2 High flow 09/05: Patient feels slightly better Continues to be on high flow oxygen wean as tolerated Continue current management 09/06: Patient continues to require high flow oxygen at the settings of 40 L/85 FiO2/O2 sats 97% 09/07; oxygen requirement slightly improved today on 30 L/70% FiO2/100% O2 sats Encouraging prone position as tolerated 09/08; 30 L nasal cannula intermittent BiPAP, continue current management 09/09; mild improvement still remains on high flow nasal cannula O2 and BiPAP intermittent Wean as tolerated 09/10; patient on continuous BiPAP, feels slightly better DC planning per case management when stable 09/11; patient remains on high flow oxygen and BiPAP, follow clinically Wean as tolerated, check with case management possibility of getting BiPAP at discharge for this patient, she said she would find out Follow design sales consultant recommendations 09/12: Patient currently on high flow oxygen 25 L/min. We will transfer him out from the [facility]. Continue to follow inflammatory markers, follow ID recommendation. Pulmonary following. Wean off O2 as tolerated. 09/13: remains on 25L O2, cont eliquis, follow inflammatory markers. 09/14: Patient weaned down to 5 L nasal cannula today, continue Eliquis. inf lammatory markers stable and trending down. Consult renal case manager from home O2 arrangement. If patient able to maintain oxygenation below 5 L possible discharge home soon with home O2. 4/30: Patient remains on 5 L nasal cannula, per renal case manager his oxygen requirement is to be less than 5 L set up home oxygen. Continue to follow clinically and wean off O2 as tolerated. Hospitalist Physical General appearance: Present: no acute distress, well-nourished, obese (Morbidly obese), other (nasal cannula oxygen) - EENT Eyes: Present: PERRL, EOM intact - Neck Neck: Present: supple, normal ROM - Respiratory Respiratory effort: normal Respiratory: bilateral: diminished, negative: rales, wheezing - Cardiovascular Rhythm: regular Heart Sounds: Present: S1 & S2 - Extremities Extremities: no ischemia, No edema - Abdominal General gastrointestinal: soft, non-tender, non-distended, normal bowel sounds - Integumentary Integumentary: Present: clear, warm - Psychiatric Psychiatric: appropriate mood/affect, cooperative - Neurologic Neurologic: moves all extremities Subjective Date of service: 09/15/20 Principal diagnosis: COVID Interval history: Patient seen and examined. Medical records and medication list reviewed. No acute event overnight noted by the RN. Patient remains on 5L nasal cannula o2 today. Patient is tolerating diet. Discussed plan of care at bedside with patient. Objective - Constitutional Vitals: Vital Signs - 12hr 09/15/20 09/15/20 09/15/20 03:26 05:00 07:11 Temperature 98.4 F Pulse Rate 77 82 Respiratory 24 20 Rate Blood Pressure 143/81 [right arm] O2 Sat by Pulse 94 95 99 Oximetry 09/15/20 09:02 Temperature Pulse Rate Respiratory Rate Blood Pressure [right arm] O2 Sat by Pulse 96 Oximetry - Labs CBC & Chem 7: 09/11/20 05:53 09/11/20 05:53
[2020-09-16] MEDS: FAMOTIDINE 20 MG TAB PO SCH ×2 (11:03→22:18)
[2020-09-16] MEDS: ZINC SULFATE 220 MG CAP PO SCH (11:03)
[2020-09-16] MEDS: methylPREDNISolone Sod Succinate 40 MG/1 ML INJ IV SCH (11:03)
[2020-09-16] MEDS: ASCORBIC ACID 500 MG TAB PO SCH ×2 (11:03→22:18)
[2020-09-16] MEDS: APIXABAN 5 MG TAB PO SCH ×2 (11:04→22:18)
[2020-09-16] MEDS: CHOLECALCIFEROL (VIT D3) 5,000 UNIT TAB PO SCH (11:04)
--- NOTE | 2020-09-16 12:59 | Progress Note ---
Assessment and Plan Assessment and Plan Imp: 1. Covid-19 2. Viral pneumonia 3. ARDS 4. Acute respiratory failure, hypoxia 5. Obesity, rule out obstructive sleep apnea Rec: 1. Cont. current care -> improving; hopeful home soon 2. Consider sleep study as outpatient. Subjective Date of service: 09/16/20 Principal diagnosis: COVID Interval history: Patient feeling fairly well no new complaints still on some supplemental oxygen. Does have history of snoring possible have sleep apnea Objective Vital Signs - 12hr 09/16/20 09/16/20 04:26 09:15 Temperature 97.9 F Pulse Rate 68 Respiratory 18 Rate Blood Pressure 122/75 [right arm] O2 Sat by Pulse 94 94 Oximetry Constitutional: no acute distress, alert, other (obese) Eyes: non-icteric ENT: oropharynx moist Neck: supple Effort: normal Ascultation: Bilateral: clear Cardiovascular: regular rate and rhythm (no mrg) Gastrointestinal: normoactive bowel sounds, soft, non-distended Integumentary: normal Extremities: no cyanosis, no edema, pink and warm Neurologic: normal mental status, non-focal exam Psychiatric: mood appropriate, affect normal CBC and BMP: 09/11/20 05:53 09/11/20 05:53 ABG, PT/INR, D-dimer: ABG ABG pH 7.313 pH Units (7.350-7.450) L 08/25/20 12:30 POC ABG pCO2 46.9 mmHg (32.0-48.0) 08/14/20 08:23 ABG pCO2 67.2 mm Hg 08/25/20 12:30 POC ABG pO2 50.0 mmHg (83-108) L 08/14/20 08:23 ABG pO2 76.2 mm Hg (80.0-90.0) L 08/25/20 12:30 POC ABG HCO3 31.4 08/14/20 08:23 ABG O2 Saturation 94.9 % (95.0-99.0) L 08/25/20 12:30 PT/INR, D-dimer PT 12.6 Sec. (12.2-14.9) 08/10/20 08:29 INR 0.96 (0.87-1.13) 08/10/20 08:29 D-Dimer 548.23 ng/mlDDU (0-234) H 09/10/20 10:24 Abnormal lab findings: Abnormal Labs 08/10/20 08/10/20 08/10/20 08:29 08:29 08:29 WBC Lymph % (Auto) [place] % (Auto) 8.4 H Lymph # (Auto) [place] # (Auto) Seg Neutrophils % Seg Neuts % (Manual) Lymphocytes % (Manual) Seg Neutrophils # Seg Neutrophils # Man Lymphocytes # (Manual) Monocytes # (Manual) D-Dimer ABG pH POC ABG pCO2 POC ABG pO2 ABG pO2 ABG HCO3 ABG O2 Saturation ABG Base Excess ABG Hemoglobin ABG Oxyhemoglobin ABG Potassium ABG Glucose VBG pH 7.303 L Oxyhemoglobin Sodium Potassium Chloride Carbon Dioxide BUN Creatinine Glucose 132 H POC Glucose Hemoglobin A1c Magnesium Ferritin AST Lactate Dehydrogenase C-Reactive Protein Albumin Arterial Blood Glucose Coronavirus (PCR) 08/11/20 08/11/20 08/11/20 05:39 05:39 05:39 WBC Lymph % (Auto) 12.5 L [place] % (Auto) Lymph # (Auto) [place] # (Auto) Seg Neutrophils % 84.2 H Seg Neuts % (Manual) Lymphocytes % (Manual) Seg Neutrophils # 9.1 H Seg Neutrophils # Man Lymphocytes # (Manual) Monocytes # (Manual) D-Dimer ABG pH POC ABG pCO2 POC ABG pO2 ABG pO2 ABG HCO3 ABG O2 Saturation ABG Base Excess ABG Hemoglobin ABG Oxyhemoglobin ABG Potassium ABG Glucose VBG pH Oxyhemoglobin Sodium Potassium Chloride Carbon Dioxide BUN Creatinine Glucose 125 H POC Glucose Hemoglobin A1c 6.1 H Magnesium Ferritin AST Lactate Dehydrogenase C-Reactive Protein Albumin Arterial Blood Glucose Coronavirus (PCR) 08/11/20 08/11/20 08/11/20 18:58 18:58 18:58 WBC Lymph % (Auto) [place] % (Auto) Lymph # (Auto) [place] # (Auto) Seg Neutrophils % Seg Neuts % (Manual) Lymphocytes % (Manual) Seg Neutrophils # Seg Neutrophils # Man Lymphocytes # (Manual) Monocytes # (Manual) D-Dimer 464.84 H ABG pH POC ABG pCO2 POC ABG pO2 ABG pO2 ABG HCO3 ABG O2 Saturation ABG Base Excess ABG Hemoglobin ABG Oxyhemoglobin ABG Potassium ABG Glucose VBG pH Oxyhemoglobin Sodium Potassium Chloride Carbon Dioxide BUN Creatinine Glucose POC Glucose Hemoglobin A1c Magnesium Ferritin 528.7 H AST Lactate Dehydrogenase 637 H C-Reactive Protein 11.30 H Albumin Arterial Blood Glucose Coronavirus (PCR) 08/11/20 08/11/20 08/12/20 19:08 Unknown 06:29 WBC 11.2 H Lymph % (Auto) 8.6 L [place] % (Auto) Lymph # (Auto) 1.0 L [place] # (Auto) Seg Neutrophils % 88.3 H Seg Neuts % (Manual) Lymphocytes % (Manual) Seg Neutrophils # 9.8 H Seg Neutrophils # Man Lymphocytes # (Manual) Monocytes # (Manual) D-Dimer ABG pH POC ABG pCO2 POC ABG pO2 ABG pO2 ABG HCO3 ABG O2 Saturation ABG Base Excess ABG Hemoglobin ABG Oxyhemoglobin ABG Potassium ABG Glucose VBG pH Oxyhemoglobin Sodium Potassium Chloride Carbon Dioxide BUN Creatinine Glucose 161 H POC Glucose Hemoglobin A1c Magnesium Ferritin AST Lactate Dehydrogenase C-Reactive Protein Albumin Arterial Blood Glucose Coronavirus (PCR) Positive A 08/12/20 08/12/20 08/12/20 06:29 06:29 06:29 WBC Lymph % (Auto) [place] % (Auto) Lymph # (Auto) [place] # (Auto) Seg Neutrophils % Seg Neuts % (Manual) Lymphocytes % (Manual) Seg Neutrophils # Seg Neutrophils # Man Lymphocytes # (Manual) Monocytes # (Manual) D-Dimer 830.34 H ABG pH POC ABG pCO2 POC ABG pO2 ABG pO2 ABG HCO3 ABG O2 Saturation ABG Base Excess ABG Hemoglobin ABG Oxyhemoglobin ABG Potassium ABG Glucose VBG pH Oxyhemoglobin Sodium Potassium Chloride Carbon Dioxide 31 H BUN Creatinine Glucose 138 H POC Glucose Hemoglobin A1c Magnesium Ferritin 572.6 H AST 42 H Lactate Dehydrogenase 706 H C-Reactive Protein 17.30 H Albumin 3.7 L Arterial Blood Glucose Coronavirus (PCR) 08/12/20 08/12/20 08/12/20 13:21 14:55 21:59 WBC Lymph % (Auto) [place] % (Auto) Lymph # (Auto) [place] # (Auto) Seg Neutrophils % Seg Neuts % (Manual) Lymphocytes % (Manual) Seg Neutrophils # Seg Neutrophils # Man Lymphocytes # (Manual) Monocytes # (Manual) D-Dimer ABG pH 7.315 L POC ABG pCO2 57.1 H POC ABG pO2 47.8 L ABG pO2 65.8 L ABG HCO3 31.4 H ABG O2 Saturation 91.7 L ABG Base Excess ABG Hemoglobin 19.3 H ABG Oxyhemoglobin ABG Potassium 4.9 H ABG Glucose 182 H VBG pH Oxyhemoglobin 89.7 L Sodium Potassium Chloride Carbon Dioxide BUN Creatinine Glucose POC Glucose 142 H Hemoglobin A1c Magnesium Ferritin AST Lactate Dehydrogenase C-Reactive Protein Albumin Arterial Blood Glucose 182 H Coronavirus (PCR) 08/13/20 08/13/20 08/13/20 05:35 05:35 12:11 WBC 12.0 H Lymph % (Auto) 8.1 L [place] % (Auto) Lymph # (Auto) 1.0 L [place] # (Auto) Seg Neutrophils % 88.0 H Seg Neuts % (Manual) Lymphocytes % (Manual) Seg Neutrophils # 10.5 H Seg Neutrophils # Man Lymphocytes # (Manual) Monocytes # (Manual) D-Dimer ABG pH POC ABG pCO2 POC ABG pO2 ABG pO2 ABG HCO3 ABG O2 Saturation ABG Base Excess ABG Hemoglobin ABG Oxyhemoglobin ABG Potassium ABG Glucose VBG pH Oxyhemoglobin Sodium Potassium 5.1 H Chloride Carbon Dioxide 31 H BUN 25 H Creatinine Glucose 174 H POC Glucose 154 H Hemoglobin A1c Magnesium Ferritin AST 41 H Lactate Dehydrogenase 996 H C-Reactive Protein Albumin 3.8 L Arterial Blood Glucose Coronavirus (PCR) 08/13/20 08/13/20 08/14/20 16:18 23:24 05:21 WBC 14.2 H Lymph % (Auto) 8.2 L [place] % (Auto) Lymph # (Auto) [place] # (Auto) 0.9 H Seg Neutrophils % 85.4 H Seg Neuts % (Manual) Lymphocytes % (Manual) Seg Neutrophils # 12.2 H Seg Neutrophils # Man Lymphocytes # (Manual) Monocytes # (Manual) D-Dimer ABG pH POC ABG pCO2 POC ABG pO2 ABG pO2 ABG HCO3 ABG O2 Saturation ABG Base Excess ABG Hemoglobin ABG Oxyhemoglobin ABG Potassium ABG Glucose VBG pH Oxyhemoglobin Sodium Potassium Chloride Carbon Dioxide BUN Creatinine Glucose POC Glucose 188 H 127 H Hemoglobin A1c Magnesium Ferritin AST Lactate Dehydrogenase C-Reactive Protein Albumin Arterial Blood Glucose Coronavirus (PCR) 08/14/20 08/14/20 08/14/20 05:21 05:21 05:21 WBC Lymph % (Auto) [place] % (Auto) Lymph # (Auto) [place] # (Auto) Seg Neutrophils % Seg Neuts % (Manual) Lymphocytes % (Manual) Seg Neutrophils # Seg Neutrophils # Man Lymphocytes # (Manual) Monocytes # (Manual) D-Dimer > 04286 H ABG pH POC ABG pCO2 POC ABG pO2 ABG pO2 ABG HCO3 ABG O2 Saturation ABG Base Excess ABG Hemoglobin ABG Oxyhemoglobin ABG Potassium ABG Glucose VBG pH Oxyhemoglobin Sodium Potassium Chloride Carbon Dioxide 32 H 33 H BUN 26 H 26 H Creatinine Glucose 152 H 156 H POC Glucose Hemoglobin A1c Magnesium Ferritin AST 53 H 54 H Lactate Dehydrogenase 1249 H C-Reactive Protein 9.90 H Albumin 3.7 L 3.7 L Arterial Blood Glucose Coronavirus (PCR) 08/14/20 08/14/20 08/14/20 05:21 05:58 08:23 WBC Lymph % (Auto) [place] % (Auto) Lymph # (Auto) [place] # (Auto) Seg Neutrophils % Seg Neuts % (Manual) Lymphocytes % (Manual) Seg Neutrophils # Seg Neutrophils # Man Lymphocytes # (Manual) Monocytes # (Manual) D-Dimer ABG pH POC ABG pCO2 POC ABG pO2 50.0 L ABG pO2 ABG HCO3 ABG O2 Saturation ABG Base Excess ABG Hemoglobin ABG Oxyhemoglobin 84.0 L ABG Potassium ABG Glucose 141 H VBG pH Oxyhemoglobin Sodium Potassium Chloride Carbon Dioxide BUN Creatinine Glucose POC Glucose 139 H Hemoglobin A1c Magnesium Ferritin 1198.0 H AST Lactate Dehydrogenase C-Reactive Protein Albumin Arterial Blood Glucose 141 H Coronavirus (PCR) 08/15/20 08/15/20 08/16/20 05:16 05:16 05:26 WBC 13.7 H 17.7 H Lymph % (Auto) 8.2 L [place] % (Auto) Lymph # (Auto) [place] # (Auto) Seg Neutrophils % 86.2 H Seg Neuts % (Manual) 91.0 H 88.0 H Lymphocytes % (Manual) 7.0 L 9.0 L Seg Neutrophils # 15.3 H Seg Neutrophils # Man 12.5 H 15.6 H Lymphocytes # (Manual) 1.0 L Monocytes # (Manual) D-Dimer ABG pH POC ABG pCO2 POC ABG pO2 ABG pO2 ABG HCO3 ABG O2 Saturation ABG Base Excess ABG Hemoglobin ABG Oxyhemoglobin ABG Potassium ABG Glucose VBG pH Oxyhemoglobin Sodium Potassium Chloride Carbon Dioxide 32 H BUN 29 H Creatinine Glucose 150 H POC Glucose Hemoglobin A1c Magnesium Ferritin AST Lactate Dehydrogenase 1150 H C-Reactive Protein Albumin 3.5 L Arterial Blood Glucose Coronavirus (PCR) 08/16/20 08/16/20 08/16/20 05:26 05:26 05:26 WBC Lymph % (Auto) [place] % (Auto) Lymph # (Auto) [place] # (Auto) Seg Neutrophils % Seg Neuts % (Manual) Lymphocytes % (Manual) Seg Neutrophils # Seg Neutrophils # Man Lymphocytes # (Manual) Monocytes # (Manual) D-Dimer > 46660 H ABG pH POC ABG pCO2 POC ABG pO2 ABG pO2 ABG HCO3 ABG O2 Saturation ABG Base Excess ABG Hemoglobin ABG Oxyhemoglobin ABG Potassium ABG Glucose VBG pH Oxyhemoglobin Sodium Potassium 5.2 H Chloride Carbon Dioxide BUN 25 H Creatinine Glucose 163 H POC Glucose Hemoglobin A1c Magnesium Ferritin 1013.0 H AST Lactate Dehydrogenase C-Reactive Protein 4.00 H Albumin 3.6 L Arterial Blood Glucose Coronavirus (PCR) 08/17/20 08/17/20 08/17/20 05:06 05:06 07:51 WBC 20.7 H Lymph % (Auto) [place] % (Auto) Lymph # (Auto) [place] # (Auto) Seg Neutrophils % Seg Neuts % (Manual) 86.0 H Lymphocytes % (Manual) 7.0 L Seg Neutrophils # Seg Neutrophils # Man 17.8 H Lymphocytes # (Manual) Monocytes # (Manual) 1.2 H D-Dimer ABG pH POC ABG pCO2 POC ABG pO2 ABG pO2 ABG HCO3 ABG O2 Saturation ABG Base Excess ABG Hemoglobin ABG Oxyhemoglobin ABG Potassium ABG Glucose VBG pH Oxyhemoglobin Sodium Potassium Chloride 96.5 L Carbon Dioxide 31 H BUN 29 H Creatinine Glucose 121 H POC Glucose 110 H Hemoglobin A1c Magnesium Ferritin AST 46 H Lactate Dehydrogenase C-Reactive Protein Albumin 3.7 L Arterial Blood Glucose Coronavirus (PCR) 08/17/20 08/17/20 08/18/20 11:42 21:45 05:13 WBC Lymph % (Auto) [place] % (Auto) Lymph # (Auto) [place] # (Auto) Seg Neutrophils % Seg Neuts % (Manual) Lymphocytes % (Manual) Seg Neutrophils # Seg Neutrophils # Man Lymphocytes # (Manual) Monocytes # (Manual) D-Dimer > 1000 H ABG pH POC ABG pCO2 POC ABG pO2 ABG pO2 ABG HCO3 ABG O2 Saturation ABG Base Excess ABG Hemoglobin ABG Oxyhemoglobin ABG Potassium ABG Glucose VBG pH Oxyhemoglobin Sodium Potassium Chloride Carbon Dioxide BUN Creatinine Glucose POC Glucose 122 H 143 H Hemoglobin A1c Magnesium Ferritin AST Lactate Dehydrogenase C-Reactive Protein Albumin Arterial Blood Glucose Coronavirus (PCR) 08/18/20 08/18/20 08/21/20 05:13 05:13 11:17 WBC Lymph % (Auto) [place] % (Auto) Lymph # (Auto) [place] # (Auto) Seg Neutrophils % Seg Neuts % (Manual) Lymphocytes % (Manual) Seg Neutrophils # Seg Neutrophils # Man Lymphocytes # (Manual) Monocytes # (Manual) D-Dimer ABG pH POC ABG pCO2 POC ABG pO2 ABG pO2 ABG HCO3 ABG O2 Saturation ABG Base Excess ABG Hemoglobin ABG Oxyhemoglobin ABG Potassium ABG Glucose VBG pH Oxyhemoglobin Sodium 133 L Potassium Chloride 94.7 L Carbon Dioxide BUN 33 H Creatinine Glucose 110 H POC Glucose 151 H Hemoglobin A1c Magnesium Ferritin 979.8 H AST 50 H Lactate Dehydrogenase C-Reactive Protein Albumin 3.7 L Arterial Blood Glucose Coronavirus (PCR) 08/21/20 08/21/20 08/21/20 13:39 13:39 15:55 WBC Lymph % (Auto) [place] % (Auto) Lymph # (Auto) [place] # (Auto) Seg Neutrophils % Seg Neuts % (Manual) Lymphocytes % (Manual) Seg Neutrophils # Seg Neutrophils # Man Lymphocytes # (Manual) Monocytes # (Manual) D-Dimer 6731.66 H ABG pH POC ABG pCO2 POC ABG pO2 ABG pO2 ABG HCO3 ABG O2 Saturation ABG Base Excess ABG Hemoglobin ABG Oxyhemoglobin ABG Potassium ABG Glucose VBG pH Oxyhemoglobin Sodium Potassium Chloride Carbon Dioxide BUN Creatinine Glucose POC Glucose Hemoglobin A1c Magnesium Ferritin 1019.0 H AST Lactate Dehydrogenase 1251 H C-Reactive Protein Albumin Arterial Blood Glucose Coronavirus (PCR) 08/22/20 08/22/20 08/25/20 05:23 05:23 12:30 WBC 24.7 H Lymph % (Auto) [place] % (Auto) Lymph # (Auto) [place] # (Auto) Seg Neutrophils % Seg Neuts % (Manual) Lymphocytes % (Manual) Seg Neutrophils # Seg Neutrophils # Man Lymphocytes # (Manual) Monocytes # (Manual) D-Dimer ABG pH 7.313 L POC ABG pCO2 POC ABG pO2 ABG pO2 76.2 L ABG HCO3 33.3 H ABG O2 Saturation 94.9 L ABG Base Excess 5.0 H ABG Hemoglobin 13.4 L ABG Oxyhemoglobin ABG Potassium ABG Glucose VBG pH Oxyhemoglobin 93.0 L Sodium 136 L Potassium Chloride 96.3 L Carbon Dioxide BUN 24 H Creatinine 0.7 L Glucose 115 H POC Glucose Hemoglobin A1c Magnesium Ferritin AST Lactate Dehydrogenase C-Reactive Protein Albumin Arterial Blood Glucose Coronavirus (PCR) 08/25/20 08/25/20 08/25/20 16:08 16:08 16:08 WBC Lymph % (Auto) [place] % (Auto) Lymph # (Auto) [place] # (Auto) Seg Neutrophils % Seg Neuts % (Manual) Lymphocytes % (Manual) Seg Neutrophils # Seg Neutrophils # Man Lymphocytes # (Manual) Monocytes # (Manual) D-Dimer 4487.76 H ABG pH POC ABG pCO2 POC ABG pO2 ABG pO2 ABG HCO3 ABG O2 Saturation ABG Base Excess ABG Hemoglobin ABG Oxyhemoglobin ABG Potassium ABG Glucose VBG pH Oxyhemoglobin Sodium Potassium Chloride Carbon Dioxide BUN Creatinine Glucose POC Glucose Hemoglobin A1c Magnesium Ferritin 961.4 H AST Lactate Dehydrogenase 959 H C-Reactive Protein Albumin Arterial Blood Glucose Coronavirus (PCR) 08/26/20 08/26/20 08/31/20 07:11 07:11 10:56 WBC Lymph % (Auto) [place] % (Auto) 9.8 H Lymph # (Auto) [place] # (Auto) 1.0 H Seg Neutrophils % Seg Neuts % (Manual) Lymphocytes % (Manual) Seg Neutrophils # Seg Neutrophils # Man Lymphocytes # (Manual) Monocytes # (Manual) D-Dimer ABG pH POC ABG pCO2 POC ABG pO2 ABG pO2 ABG HCO3 ABG O2 Saturation ABG Base Excess ABG Hemoglobin ABG Oxyhemoglobin ABG Potassium ABG Glucose VBG pH Oxyhemoglobin Sodium 135 L Potassium Chloride 95.7 L 97.4 L Carbon Dioxide 33 H 34 H BUN Creatinine 0.6 L Glucose 109 H POC Glucose Hemoglobin A1c Magnesium 2.40 H Ferritin AST Lactate Dehydrogenase C-Reactive Protein Albumin Arterial Blood Glucose Coronavirus (PCR) 09/05/20 09/05/20 09/06/20 07:11 07:11 10:43 WBC 14.0 H Lymph % (Auto) 10.8 L [place] % (Auto) Lymph # (Auto) [place] # (Auto) Seg Neutrophils % 82.6 H Seg Neuts % (Manual) Lymphocytes % (Manual) Seg Neutrophils # 11.6 H Seg Neutrophils # Man Lymphocytes # (Manual) Monocytes # (Manual) D-Dimer 877.51 H ABG pH POC ABG pCO2 POC ABG pO2 ABG pO2 ABG HCO3 ABG O2 Saturation ABG Base Excess ABG Hemoglobin ABG Oxyhemoglobin ABG Potassium ABG Glucose VBG pH Oxyhemoglobin Sodium Potassium Chloride Carbon Dioxide 36 H BUN 21 H Creatinine 0.6 L Glucose 123 H POC Glucose Hemoglobin A1c Magnesium Ferritin AST Lactate Dehydrogenase C-Reactive Protein Albumin Arterial Blood Glucose Coronavirus (PCR) 09/06/20 09/06/20 09/10/20 10:43 10:43 08:01 WBC Lymph % (Auto) [place] % (Auto) Lymph # (Auto) [place] # (Auto) Seg Neutrophils % Seg Neuts % (Manual) Lymphocytes % (Manual) Seg Neutrophils # Seg Neutrophils # Man Lymphocytes # (Manual) Monocytes # (Manual) D-Dimer ABG pH POC ABG pCO2 POC ABG pO2 ABG pO2 ABG HCO3 ABG O2 Saturation ABG Base Excess ABG Hemoglobin ABG Oxyhemoglobin ABG Potassium ABG Glucose VBG pH Oxyhemoglobin Sodium Potassium Chloride Carbon Dioxide 32 H BUN Creatinine 0.7 L Glucose 140 H POC Glucose Hemoglobin A1c Magnesium Ferritin 666.4 H AST Lactate Dehydrogenase 607 H C-Reactive Protein Albumin Arterial Blood Glucose Coronavirus (PCR) 09/10/20 09/10/20 09/10/20 10:24 10:24 10:24 WBC Lymph % (Auto) [place] % (Auto) Lymph # (Auto) [place] # (Auto) Seg Neutrophils % Seg Neuts % (Manual) Lymphocytes % (Manual) Seg Neutrophils # Seg Neutrophils # Man Lymphocytes # (Manual) Monocytes # (Manual) D-Dimer 548.23 H ABG pH POC ABG pCO2 POC ABG pO2 ABG pO2 ABG HCO3 ABG O2 Saturation ABG Base Excess ABG Hemoglobin ABG Oxyhemoglobin ABG Potassium ABG Glucose VBG pH Oxyhemoglobin Sodium Potassium Chloride Carbon Dioxide BUN Creatinine Glucose POC Glucose Hemoglobin A1c Magnesium Ferritin 719.2 H AST Lactate Dehydrogenase 495 H C-Reactive Protein Albumin Arterial Blood Glucose Coronavirus (PCR) 09/11/20 09/11/20 05:53 05:53 WBC 17.7 H Lymph % (Auto) 11.2 L [place] % (Auto) Lymph # (Auto) [place] # (Auto) 0.9 H Seg Neutrophils % 83.1 H Seg Neuts % (Manual) Lymphocytes % (Manual) Seg Neutrophils # 14.7 H Seg Neutrophils # Man Lymphocytes # (Manual) Monocytes # (Manual) D-Dimer ABG pH POC ABG pCO2 POC ABG pO2 ABG pO2 ABG HCO3 ABG O2 Saturation ABG Base Excess ABG Hemoglobin ABG Oxyhemoglobin ABG Potassium ABG Glucose VBG pH Oxyhemoglobin Sodium Potassium Chloride 94.9 L Carbon Dioxide 32 H BUN Creatinine 0.7 L Glucose 137 H POC Glucose Hemoglobin A1c Magnesium Ferritin AST Lactate Dehydrogenase C-Reactive Protein Albumin Arterial Blood Glucose Coronavirus (PCR)
--- NOTE | 2020-09-16 15:14 | Progress Note ---
Assessment and Plan --Acute hypoxic respiratory failure secondary to COVID-19 PNA s/p high flow oxygen most recent numbers 25 L/60 FiO2/97 O2 sats with intermi ttent BiPAP Patient unstable to go for CTA chest to evaluate the cause of persistent hypoxia, cont eliquis for now pulmonary following, Home O2 evaluation at discharge --COVID-19 Pneumonia Continue steroids tapering dose s/p Remdesivir, s/p tocilizumab s/p HF NC O2, now on N/c, titrate and wean as tolerated --Right lower extremity DVT on LE Doppler study LE Doppler LE Doppler shows RLE DVT. Echocardiogram shows no right heart strain. On Eliquis per protocol --Sinus bradycardia /resolved Likely from remdesivir TSH wnl --Morbid obesity; BMI 40.4 Diet and exercise advised Patient needs outpatient bariatric surgical/medical weight reduction consult when medically stable --DVT prophylaxis;-on Eliquis[positive DVT] Continues to be on high flow oxygen/BiPAP wean as tolerated We will closely monitor the patient and adjust management as needed [employer] recommendations noted and appreciated Plan of care reviewed with the patient and his nurse and the case management Also discussed with sustainability analyst and case management Brief history 30-year-old male with morbid obesity weighing about 310 pounds was admitted through emergency room with frontal headache for 3 days. Was admitted through emergency room with acute hypoxic respiratory failure requiring BiPAP and high flow nasal cannula oxygen, [facility] tested positive for Covid 19, evaluated and followed by pulmonary, ID, managed appropriately per Covid protocols however patient continues to require high flow nasal cannula oxygen and intermittent BiPAP, patient is morbidly obese Patient may need bariatric surgical consultation upon discharge for weight reduction program when medically stable Daily Hospital course: 08/11. Patient seen examined at bedside this morning. Has no complaints. Febrile this a.m.-103 Fahrenheit. On Tylenol as needed. COVID-19 test ordered. Remains on steroids. ID consult if COVID-19 is positive. 08/12. His COVID-19 test is positive. He was started on remdesivir last night. Oxygen requirement increased overnight. Inflammatory markers increasing. Repeat chest xray shows worsening infiltrates. Ordered BNP. Lasix 40mg IV ordered. Increased dexamethasone to 6mg BID. Pulmonology consulted. Will place on continuous pulse oximetry. Incentive spirometer ordered. Advised prone positioning. 08/13. Not feeling better. Seen on BIPAP. Remains on steroids, remdesivir and antibiotics. Vitals stable. 08/14. Still maintaining sats even on BiPAP. Lasix 40 mg IV ordered. D-dimer this a.m. is more than 10,000. Lovenox increased to 150 mg twice daily. Ultrasound lower extremities Doppler showed a right DVT. Echocardiogram ordered to rule out right heart strain. Pending results, patient may need vascular surgery evaluation for possible thrombectomy. Continue on BiPAP and continue to monitor respiratory status closely. 08/15. Sats better this AM. Received toculizumab yesterday. Advised him to prone as much as possible. Echo shows normal EF with no right heart strain. I/Os reviewed. He is diuresing well. Renal function is stable. Will give additional lasix today. Pulmonology following 08/16. Remains on remdesivir. Still on BIPAP. Will give lasix 20mg IV. HR is low - likley effect of remdesivir. Will continue to monitor closely 08/17. Sats in the 90's this AM. Still on BIPAP. 08/18; patient remains hypoxic requiring BiPAP and 100% nonrebreather intermittently 08/19; Continue supportive care, wean oxygen as tolerated. Encouraged PRONE positioning if able to tolerate. 08/20:Remains on BiPAP. continue lasix, still not proninig, encouraged to prone, FIO2 down to 90% with sat of 96%. Continue care, prognosis still guarded. 08/21: Patient down on high flow. Continue to encourage proning position. Still with guarded prognosis. Elevation in WBC noted to 20 this could be secondary to steroids I will continue to monitor. No fever noted at this time. Patient's respiratory status has stabilized on the high flow with no shallow breathing noted Discussed with the nurse at bedside 08/22; DC Lovenox therapeutic dose, start Eliquis per protocol to treat lower extremity DVT. 08/23; patient remains on high flow oxygen 40 L/100 FiO2/94% O2 sats, intermittent BiPAP 08/24; patient remains on high flow oxygen and BiPAP, consultants recommendations noted and appreciated 08/25; patient continues to be hypoxemic, on high flow oxygen 40L/ 100 FiO2/95 O2 sats and on intermittent BiPAP 08/26; patient continues to be on high flow oxygen, unable to wean follow pulmonary recommendations 08/27; patient remains on high flow oxygen 40 L/100% FiO2/95% O2 sats with intermittent BiPAP treatment 08/28; patient remains on high flow oxygen, strongly advised to prone as tolerated, consults and recommendations noted and appreciated 08/29; closely monitor the patient and adjust management as needed, wean oxygen as tolerated Home oxygen evaluation, DC planning when medically stable 08/30; clinically no change, remains on high flow oxygen, wean as tolerated Consultants recommendations noted . 08/31; patient remains on high flow oxygen 40/100/93 09/01/20;patient remains on high flow oxygen 40/100/93 09/02/20; no change clinically, remains high flow O2, 09/03: No change clinically, remains on high flow O2 09/04:Some omproment, Sitting in Chair On 80 percent FIO2, 40 liters NC O 2 High flow 09/05: Patient feels slightly better Continues to be on high flow oxygen wean as tolerated Continue current management 09/06: Patient continues to require high flow oxygen at the settings of 40 L/85 FiO2/O2 sats 97% 09/07; oxygen requirement slightly improved today on 30 L/70% FiO2/100% O2 sats Encouraging prone position as tolerated 09/08; 30 L nasal cannula intermittent BiPAP, continue current management 09/09; mild improvement still remains on high flow nasal cannula O2 and BiPAP intermittent Wean as tolerated 09/10; patient on continuous BiPAP, feels slightly better DC planning per case management when stable 09/11; patient remains on high flow oxygen and BiPAP, follow clinically Wean as tolerated, check with case management possibility of getting BiPAP at discharge for this patient, she said she would find out Follow managed services sales consultant recommendations 09/12: Patient currently on high flow oxygen 25 L/min. We will transfer him out from the [facility] to [facility]. Continue to follow inflammatory markers, follow ID recommendation. Pulmonary following. Wean off O2 as tolerated. 09/13: remains on 25L O2, cont eliquis, follow inflammatory markers. 09/14: Patient weaned down to 5 L nasal cannula today, continue Eliquis. inf lammatory markers stable and trending down. Consult supervisor case loading from home O2 arrangement. If patient able to maintain oxygenation below 5 L possible discharge home soon with home O2. 4/30: Patient remains on 5 L nasal cannula, per supervisor case loading his oxygen requirement is to be less than 5 L set up home oxygen. Continue to follow clinically and wean off O2 as tolerated. 09/16; Patient remains on 5 L nasal cannula, per supervisor case loading his oxygen requirement is to be less than 5 L set up home oxygen. Continue to follow clinically and wean off O2 as tolerated. Hospitalist Physical General appearance: Present: no acute distress, well-nourished, obese (Morbidly obese), other (nasal cannula oxygen) - EENT Eyes: Present: PERRL, EOM intact - Neck Neck: Present: supple, normal ROM - Respiratory Respiratory effort: normal Respiratory: bilateral: diminished, negative: rales, wheezing - Cardiovascular Rhythm: regular Heart Sounds: Present: S1 & S2 - Extremities Extremities: no ischemia, No edema - Abdominal General gastrointestinal: soft, non-tender, non-distended, normal bowel sounds - Integumentary Integumentary: Present: clear, warm - Psychiatric Psychiatric: appropriate mood/affect, cooperative - Neurologic Neurologic: moves all extremities Subjective Date of service: 09/16/20 Principal diagnosis: COVID Interval history: Patient seen and examined. Medical records and medication list reviewed. No acute event overnight noted by the RN. Patient remains on 5L nasal cannula o2 today. Patient is tolerating diet. Discussed plan of care at bedside with patient. Objective - Constitutional Vitals: Vital Signs - 12hr 09/16/20 09/16/20 04:26 09:15 Temperature 97.9 F Pulse Rate 68 Respiratory 18 Rate Blood Pressure 122/75 [right arm] O2 Sat by Pulse 94 94 Oximetry - Labs CBC & Chem 7: 09/11/20 05:53 09/11/20 05:53
[2020-09-17] MEDS: CHOLECALCIFEROL (VIT D3) 5,000 UNIT TAB PO SCH (10:05)
[2020-09-17] MEDS: APIXABAN 5 MG TAB PO SCH ×2 (10:05→21:25)
[2020-09-17] MEDS: FAMOTIDINE 20 MG TAB PO SCH ×2 (10:05→21:26)
[2020-09-17] MEDS: ASCORBIC ACID 500 MG TAB PO SCH ×2 (10:06→21:25)
[2020-09-17] MEDS: ZINC SULFATE 220 MG CAP PO SCH (10:06)
[2020-09-17] MEDS: methylPREDNISolone Sod Succinate 40 MG/1 ML INJ IV SCH (10:06)
--- NOTE | 2020-09-17 11:28 | Progress Note ---
Assessment and Plan --Acute hypoxic respiratory failure secondary to COVID-19 PNA s/p high flow oxygen most recent numbers 25 L/60 FiO2/97 O2 sats with intermi ttent BiPAP Patient unstable to go for CTA chest to evaluate the cause of persistent hypoxia, cont eliquis for now pulmonary following, Home O2 evaluation at discharge --COVID-19 Pneumonia Continue steroids tapering dose s/p Remdesivir, s/p tocilizumab s/p HF NC O2, now on N/c, titrate and wean as tolerated --Right lower extremity DVT on LE Doppler study LE Doppler LE Doppler shows RLE DVT. Echocardiogram shows no right heart strain. On Eliquis per protocol --Sinus bradycardia /resolved Likely from remdesivir TSH wnl --Morbid obesity; BMI 40.4 Diet and exercise advised Patient needs outpatient bariatric surgical/medical weight reduction consult when medically stable --DVT prophylaxis;-on Eliquis[positive DVT] Continues to be on high flow oxygen/BiPAP wean as tolerated We will closely monitor the patient and adjust management as needed [employer] recommendations noted and appreciated Plan of care reviewed with the patient and his nurse and the case management Also discussed with intervention analyst and case management Brief history 30-year-old male with morbid obesity weighing about 310 pounds was admitted through emergency room with frontal headache for 3 days. Was admitted through emergency room with acute hypoxic respiratory failure requiring BiPAP and high flow nasal cannula oxygen, [facility] tested positive for Covid 19, evaluated and followed by pulmonary, ID, managed appropriately per Covid protocols however patient continues to require high flow nasal cannula oxygen and intermittent BiPAP, patient is morbidly obese Patient may need bariatric surgical consultation upon discharge for weight reduction program when medically stable Daily Hospital course: 08/11. Patient seen examined at bedside this morning. Has no complaints. Febrile this a.m.-103 Fahrenheit. On Tylenol as needed. COVID-19 test ordered. Remains on steroids. ID consult if COVID-19 is positive. 08/12. His COVID-19 test is positive. He was started on remdesivir last night. Oxygen requirement increased overnight. Inflammatory markers increasing. Repeat chest xray shows worsening infiltrates. Ordered BNP. Lasix 40mg IV ordered. Increased dexamethasone to 6mg BID. Pulmonology consulted. Will place on continuous pulse oximetry. Incentive spirometer ordered. Advised prone positioning. 08/13. Not feeling better. Seen on BIPAP. Remains on steroids, remdesivir and antibiotics. Vitals stable. 08/14. Still maintaining sats even on BiPAP. Lasix 40 mg IV ordered. D-dimer this a.m. is more than 10,000. Lovenox increased to 150 mg twice daily. Ultrasound lower extremities Doppler showed a right DVT. Echocardiogram ordered to rule out right heart strain. Pending results, patient may need vascular surgery evaluation for possible thrombectomy. Continue on BiPAP and continue to monitor respiratory status closely. 08/15. Sats better this AM. Received toculizumab yesterday. Advised him to prone as much as possible. Echo shows normal EF with no right heart strain. I/Os reviewed. He is diuresing well. Renal function is stable. Will give additional lasix today. Pulmonology following 08/16. Remains on remdesivir. Still on BIPAP. Will give lasix 20mg IV. HR is low - likley effect of remdesivir. Will continue to monitor closely 08/17. Sats in the 90's this AM. Still on BIPAP. 08/18; patient remains hypoxic requiring BiPAP and 100% nonrebreather intermittently 08/19; Continue supportive care, wean oxygen as tolerated. Encouraged PRONE positioning if able to tolerate. 08/20:Remains on BiPAP. continue lasix, still not proninig, encouraged to prone, FIO2 down to 90% with sat of 96%. Continue care, prognosis still guarded. 08/21: Patient down on high flow. Continue to encourage proning position. Still with guarded prognosis. Elevation in WBC noted to 20 this could be secondary to steroids I will continue to monitor. No fever noted at this time. Patient's respiratory status has stabilized on the high flow with no shallow breathing noted Discussed with the nurse at bedside 08/22; DC Lovenox therapeutic dose, start Eliquis per protocol to treat lower extremity DVT. 08/23; patient remains on high flow oxygen 40 L/100 FiO2/94% O2 sats, intermittent BiPAP 08/24; patient remains on high flow oxygen and BiPAP, consultants recommendations noted and appreciated 08/25; patient continues to be hypoxemic, on high flow oxygen 40L/ 100 FiO2/95 O2 sats and on intermittent BiPAP 08/26; patient continues to be on high flow oxygen, unable to wean follow pulmonary recommendations 08/27; patient remains on high flow oxygen 40 L/100% FiO2/95% O2 sats with intermittent BiPAP treatment 08/28; patient remains on high flow oxygen, strongly advised to prone as tolerated, consults and recommendations noted and appreciated 08/29; closely monitor the patient and adjust management as needed, wean oxygen as tolerated Home oxygen evaluation, DC planning when medically stable 08/30; clinically no change, remains on high flow oxygen, wean as tolerated Consultants recommendations noted . 08/31; patient remains on high flow oxygen 40/100/93 09/01/20;patient remains on high flow oxygen 40/100/93 09/02/20; no change clinically, remains high flow O2, 09/03: No change clinically, remains on high flow O2 09/04:Some omproment, Sitting in Chair On 80 percent FIO2, 40 liters NC O 2 High flow 09/05: Patient feels slightly better Continues to be on high flow oxygen wean as tolerated Continue current management 09/06: Patient continues to require high flow oxygen at the settings of 40 L/85 FiO2/O2 sats 97% 09/07; oxygen requirement slightly improved today on 30 L/70% FiO2/100% O2 sats Encouraging prone position as tolerated 09/08; 30 L nasal cannula intermittent BiPAP, continue current management 09/09; mild improvement still remains on high flow nasal cannula O2 and BiPAP intermittent Wean as tolerated 09/10; patient on continuous BiPAP, feels slightly better DC planning per case management when stable 09/11; patient remains on high flow oxygen and BiPAP, follow clinically Wean as tolerated, check with case management possibility of getting BiPAP at discharge for this patient, she said she would find out Follow automotive internet sales consultant recommendations 09/12: Patient currently on high flow oxygen 25 L/min. We will transfer him out from the [facility] to [facility]. Continue to follow inflammatory markers, follow ID recommendation. Pulmonary following. Wean off O2 as tolerated. 09/13: remains on 25L O2, cont eliquis, follow inflammatory markers. 09/14: Patient weaned down to 5 L nasal cannula today, continue Eliquis. inf lammatory markers stable and trending down. Consult outpatient case manager from home O2 arrangement. If patient able to maintain oxygenation below 5 L possible discharge home soon with home O2. 4/30: Patient remains on 5 L nasal cannula, per outpatient case manager his oxygen requirement is to be less than 5 L set up home oxygen. Continue to follow clinically and wean off O2 as tolerated. 09/16 -09/17; Patient remains on 5 L nasal cannula, per outpatient case manager his oxygen requirement is to be less than 5 L set up home oxygen. Continue to follow clinically and wean off O2 as tolerated. Instructed RN to wean off O2 re quirement as tolerated to be able to qualify from home O2. Hospitalist Physical General appearance: Present: no acute distress, well-nourished, obese (Morbidly obese), other (nasal cannula oxygen) - EENT Eyes: Present: PERRL, EOM intact - Neck Neck: Present: supple, normal ROM - Respiratory Respiratory effort: normal Respiratory: bilateral: diminished, negative: rales, wheezing - Cardiovascular Rhythm: regular Heart Sounds: Present: S1 & S2 - Extremities Extremities: no ischemia, No edema - Abdominal General gastrointestinal: soft, non-tender, non-distended, normal bowel sounds - Integumentary Integumentary: Present: clear, warm - Psychiatric Psychiatric: appropriate mood/affect, cooperative - Neurologic Neurologic: moves all extremities Subjective Date of service: 09/17/20 Principal diagnosis: COVID Interval history: Patient seen and examined. Medical records and medication list reviewed. No acute event overnight noted by the RN. Patient remains on 5L nasal cannula o2 today. Patient is tolerating diet. Discussed plan of care at bedside with patient. Objective - Constitutional Vitals: Vital Signs - 12hr 09/17/20 09/17/20 00:04 05:20 Temperature 98.6 F 98.5 F Pulse Rate 76 71 Respiratory 22 20 Rate Blood Pressure 116/69 156/83 O2 Sat by Pulse 95 99 Oximetry - Labs CBC & Chem 7: 09/11/20 05:53 09/11/20 05:53
[2020-09-18] MEDS: FAMOTIDINE 20 MG TAB PO SCH ×2 (10:17→21:35)
[2020-09-18] MEDS: ASCORBIC ACID 500 MG TAB PO SCH ×2 (10:17→21:35)
[2020-09-18] MEDS: CHOLECALCIFEROL (VIT D3) 5,000 UNIT TAB PO SCH (10:17)
[2020-09-18] MEDS: APIXABAN 5 MG TAB PO SCH ×2 (10:17→21:35)
[2020-09-18] MEDS: methylPREDNISolone Sod Succinate 40 MG/1 ML INJ IV SCH (10:18)
[2020-09-18] MEDS: ZINC SULFATE 220 MG CAP PO SCH (10:19)
--- NOTE | 2020-09-18 16:49 | Discharge Summary ---
Providers - Providers Date of Admission: 08/10/20 11:23 Date of discharge: 09/19/20 Attending physician: JANA ARAGON 08/10/20 23:48 Consult to Physician [CONS] Routine Comment: Consulting Provider: LAURA VALENCIA Physician Instructions: Reason For Exam: Bilateral pneumonia 08/12/20 08:14 Consult to Physician [CONS] Routine Comment: Consulting Provider: GREG MITCHELL Physician Instructions: Reason For Exam: Respiratory failure / COVID PNA 08/21/20 11:58 Physical Therapy Evaluation and Treat [CONS] Routine Comment: Reason For Exam: Debility 08/22/20 11:53 Occupational Therapy Evaluate and Treat [CONS] Routine Comment: Reason For Exam: Debility Primary care physician: WALL CLEANER Hospitalization Condition: Stable Pertinent studies: Chest x-ray, lower extremity venous Doppler, 2D echocardiogram Hospital course: 30-year-old male with morbid obesity weighing about 310 pounds was admitted through emergency room with frontal headache for 3 days. Was admitted through emergency room with acute hypoxic respiratory failure requiring BiPAP and high flow nasal cannula oxygen, admitted to [facility] tested positive for Covid 19, evaluated and followed by pulmonary, ID, managed appropriately per Covid protocols however patient continues to require high flow nasal cannula oxygen and intermittent BiPAP. -Placed on dexamethasone for total 10 days and remdesivir total 5 days -Antibiotic was not required as procalcitonin level was normal - Placed on Droplet/contact isolation, continuous SPO2 monitoring, supplemental oxygen as needed, pulmonary hygiene, prone to sleep, Vitamin C, vitamin D, zinc -Patient was given anticoagulation per protocol, Lasix IV as needed to prevent pulmonary edema -Infectious disease was consulted. Assessed for Home O2 requirement. -Patient's symptoms improved with current Mx and was assessed for home O2 requirement. - Patient was then discharged home in stable condition with outpt followup and 3 L home O2. -patient is morbidly obese. Patient may need bariatric surgical consultation upon discharge for weight reduction program when medically stable. Daily Hospital course: 08/11. Patient seen examined at bedside this morning. Has no complaints. Febrile this a.m.-103 Fahrenheit. On Tylenol as needed. COVID-19 test ordered. Remains on steroids. ID consult if COVID-19 is positive. 08/12. His COVID-19 test is positive. He was started on remdesivir last night. Oxygen requirement increased overnight. Inflammatory markers increasing. Repeat chest xray shows worsening infiltrates. Ordered BNP. Lasix 40mg IV ordered. Increased dexamethasone to 6mg BID. Pulmonology consulted. Will place on continuous pulse oximetry. Incentive spirometer ordered. Advised prone positioning. 08/13. Not feeling better. Seen on BIPAP. Remains on steroids, remdesivir and antibiotics. Vitals stable. 08/14. Still maintaining sats even on BiPAP. Lasix 40 mg IV ordered. D-dimer this a.m. is more than 10,000. Lovenox increased to 150 mg twice daily. Ultrasound lower extremities Doppler showed a right DVT. Echocardiogram ordered to rule out right heart strain. Pending results, patient may need vascular surgery evaluation for possible thrombectomy. Continue on BiPAP and continue to monitor respiratory status closely. 08/15. Sats better this AM. Received toculizumab yesterday. Advised him to prone as much as possible. Echo shows normal EF with no right heart strain. I/Os reviewed. He is diuresing well. Renal function is stable. Will give additional lasix today. Pulmonology following 08/16. Remains on remdesivir. Still on BIPAP. Will give lasix 20mg IV. HR is low - likley effect of remdesivir. Will continue to monitor closely 08/17. Sats in the 90's this AM. Still on BIPAP. 08/18; patient remains hypoxic requiring BiPAP and 100% nonrebreather intermittently 08/19; Continue supportive care, wean oxygen as tolerated. Encouraged PRONE positioning if able to tolerate. 08/20:Remains on BiPAP. continue lasix, still not proninig, encouraged to prone, FIO2 down to 90% with sat of 96%. Continue care, prognosis still guarded. 08/21: Patient down on high flow. Continue to encourage proning position. Still with guarded prognosis. Elevation in WBC noted to 20 this could be secondary to steroids I will continue to monitor. No fever noted at this time. Patient's respiratory status has stabilized on the high flow with no shallow breathing noted Discussed with the nurse at bedside 08/22; DC Lovenox therapeutic dose, start Eliquis per protocol to treat lower extremity DVT. 08/23; patient remains on high flow oxygen 40 L/100 FiO2/94% O2 sats, intermittent BiPAP 08/24; patient remains on high flow oxygen and BiPAP, consultants recommendations noted and appreciated 08/25; patient continues to be hypoxemic, on high flow oxygen 40L/ 100 FiO2/95 O2 sats and on intermittent BiPAP 08/26; patient continues to be on high flow oxygen, unable to wean follow pulmonary recommendations 08/27; patient remains on high flow oxygen 40 L/100% FiO2/95% O2 sats with intermittent BiPAP treatment 08/28; patient remains on high flow oxygen, strongly advised to prone as tolerated, consults and recommendations noted and appreciated 08/29; closely monitor the patient and adjust management as needed, wean oxygen as tolerated Home oxygen evaluation, DC planning when medically stable 08/30; clinically no change, remains on high flow oxygen, wean as tolerated Consultants recommendations noted . 08/31; patient remains on high flow oxygen 40/100/93 09/01/20;patient remains on high flow oxygen 40/100/93 09/02/20; no change clinically, remains high flow O2, 09/03: No change clinically, remains on high flow O2 09/04:Some omproment, Sitting in Chair On 80 percent FIO2, 40 liters NC O 2 High flow 09/05: Patient feels slightly better Continues to be on high flow oxygen wean as tolerated Continue current management 09/06: Patient continues to require high flow oxygen at the settings of 40 L/85 FiO2/O2 sats 97% 09/07; oxygen requirement slightly improved today on 30 L/70% FiO2/100% O2 sats Encouraging prone position as tolerated 09/08; 30 L nasal cannula intermittent BiPAP, continue current management 09/09; mild improvement still remains on high flow nasal cannula O2 and BiPAP intermittent Wean as tolerated 09/10; patient on continuous BiPAP, feels slightly better DC planning per case management when stable 09/11; patient remains on high flow oxygen and BiPAP, follow clinically Wean as tolerated, check with case management possibility of getting BiPAP at discharge for this patient, she said she would find out Follow marketing database consultant recommendations 09/12: Patient currently on high flow oxygen 25 L/min. We will transfer him out from the [facility] to [facility] floor. Continue to follow inflammatory markers, follow ID recommendation. Pulmonary following. Wean off O2 as tolerated. 09/13: remains on 25L O2, cont eliquis, follow inflammatory markers. 09/14: Patient weaned down to 5 L nasal cannula today, continue Eliquis. inflammatory markers stable and trending down. Consult piano case and bench assembler from home O2 arrangement. If patient able to maintain oxygenation below 5 L possible discharge home soon with home O2. 09/15: Patient remains on 5 L nasal cannula, per piano case and bench assembler his oxygen requirement is to be less than 5 L set up home oxygen. Continue to follow clinically and wean off O2 as tolerated. 09/16 -09/17; Patient remains on 5 L nasal cannula, per piano case and bench assembler his oxygen requirement is to be less than 5 L set up home oxygen. Continue to follow clinically and wean off O2 as tolerated. Instructed RN to wean off O2 requirement as tolerated to be able to qualify from home O2. 09/18: Patient resting on 4 L nasal cannula, piano case and bench assembler to arrange home O2 for discharge. Continue to provide supportive care 09/19: Patient qualified for 3 L nasal cannula O2 at home, ordered for home O2 set-up and discharged home in stable condition with home O2 when available. Disposition: [id number]/[id number] HOME UNDER HOME HL[facility] Final Discharge Diagnosis (Prints w/discharge instructions): COVID-19 pneumonia. Acute hypoxic respiratory failure. Right lower extremity DVT. Morbid obesity Time spent for discharge: 44 minutes Core Measure Documentation - Palliative Care Palliative Care/ Comfort Measures: Not Applicable - Core Measures Any of the following diagnoses?: none Exam - Physical Exam Narrative exam: General appearance: Present: no acute distress, well-nourished, obese (Morbidly obese), other (nasal cannula oxygen) - EENT Eyes: Present: PERRL, EOM intact - Neck Neck: Present: supple, normal ROM - Respiratory Respiratory effort: normal Respiratory: bilateral: diminished, negative: rales, wheezing - Cardiovascular Rhythm: regular Heart Sounds: Present: S1 & S2 - Extremities Extremities: no ischemia, No edema - Abdominal General gastrointestinal: soft, non-tender, non-distended, normal bowel sounds - Integumentary Integumentary: Present: clear, warm - Psychiatric Psychiatric: appropriate mood/affect, cooperative - Neurologic Neurologic: moves all extremities - Constitutional Vitals: Temp Pulse Resp BP Pulse Ox 97.7 F 80 24 123/80 94 09/18/20 11:20 09/18/20 11:20 09/18/20 11:20 09/18/20 11:20 09/18/20 11:20 Plan Activity: advance as tolerated Weight Bearing Status: Weight Bear as Tolerated Diet: low fat, low salt Special Instructions: home oxygen via (4L n/c), home health RN Durable Medical Equipment Needed Upon Discharge: Oxygen (4L) Additional Instructions: Continue to take Eliquis twice daily for at least 3 months for your right lower extremity DVT. Follow-up with primary care maulik shultz in 1 week. Please come back to the hospital if your symptoms worsen Follow up with: PRIMARY CAREMD [Primary Care Provider] - 3-5 Days RIPPEY SONDRA PAYNE MD [Referring] - 7 Days Forms: Work/School Release Form Prescriptions: predniSONE [Deltasone] 20 mg PO QDAY #5 tab Apixaban [Eliquis] 5 mg PO Q12HR #60 tablet Famotidine [Pepcid] 20 mg PO BID #10 tablet Albuterol Mdi (or & Nicu Only) [ProAir HFA Inhaler] 2 puff IH QID PRN #8.5 gram PRN Reason: Shortness Of Breath Ascorbic Acid [Vitamin C] 500 mg PO BID #10 tablet Cholecalciferol (Vitamin D3) [Vitamin D3] 5,000 unit PO DAILY #5 tablet Zinc Sulfate 220 mg PO QDAY #5 capsule
[2020-09-19] MEDS: CHOLECALCIFEROL (VIT D3) 5,000 UNIT TAB PO SCH (09:51)
[2020-09-19] MEDS: methylPREDNISolone Sod Succinate 40 MG/1 ML INJ IV SCH (09:51)
[2020-09-19] MEDS: ZINC SULFATE 220 MG CAP PO SCH (09:52)
[2020-09-19] MEDS: ASCORBIC ACID 500 MG TAB PO SCH (09:52)
[2020-09-19] MEDS: FAMOTIDINE 20 MG TAB PO SCH (09:52)
[2020-09-19] MEDS: APIXABAN 5 MG TAB PO SCH (09:52)
--- NOTE | 2020-09-19 10:14 | Progress Note ---
Assessment and Plan 30 y/o morbidly obese male with acute respiratory failure secondary to COVID 19 pneumonia. now found to have DVT in lower ext. 09/19/20: No objection to discharge. Suggest Prednisone 30 daily for 5 days, 20 daily for 5 days, then 10 daily for 5 days, then 5 daily for 5 days then stop. Will need to wear oxygen 24/. Can follow up for repeat walk test in 1 months time. 09/11/20: Will drop steroids to q12 starting today. Prone as possible. Lasix today again (40). 09/10/20: Will drop steroids starting tomorrow to 40q12. Lasix today. Continue to prone or some variation of this as tolerated. Hopeful he will continue to wean and can get patient to nasal cannula. Prognosis is still guarded. 09/08/20: Wean As tolerated. Prone as able. Hold lasix. Will check labs over the weekend. Guarded prognosis. 09/07/20: Continue steroids now especially with improvement in the last 24 hours. Hold on lasix again today. May be labs on 09/08/20 09/06/20: Will continue steroids. Likely will stop in next 48 hours as patient not having improvement. Inflammatory markers are better. Would be a good candidate for LTACH but no funding. Prone as much as tolerated. Guarded prognosis. hold on lasix today, suggest checking labs tomorrow. 09/05/20: Lasix again today. Will continue steroids. Prne as much as tolerated. Guarded prognosis. 09/04/20: Will continue steroids given mild improvement. Prone as much as tolerated. Lasix again today. Bipap at night. 09/01/20: Continue steroids at least through the weekend. Continue to prone as much as tolerated. Lasix 40mg IV again today. BIpap QHS. Very very guarded pr ognosis. He has been hanging out in the high 80's low 90's for weeks now. 08/31/20: Going to place patient back on steroids. Will do solumedrol 40q8 at least for the next 48-72 hours to see if this helps. Checked stat labs this morning to evaluate renal function and potassium levels before anymore lasix is given. Continue to prone as tolerated and bipap QHS. Prognosis remains guarded. 08/30/20: Proning is a must. Will give lasix 40 today. Continue anticoagulation. Prognosis remians very very guarded. Avoid intubation at all costs. 08/29/20: Continue to prone as tolerated during the day and sleep prone at night. HOld on lasix today. Continue anticoagulation. Guarded prognosis. 08/28/20: Continue to prone as tolerated. Today will give lasix 40 to see if this helps. Will discuss with cardiology about echo. Clinically patient looks the same and not in distress. If PE is present, likely not large enough for EKOS. Given his high O2 requirement, prefer not to try CTA at this time as I feel the risks outweigh the benefits. 08/27/20: Long discussion with patient again at bedside today. May need to consider repeat ECHO to look for right heart strain. We know he had VTE in the lower ext but never had to oppurtunity to truly rule him out for PE. Cousin who is an SENIOR [employer]PLICATIONS DEVELOPER in outpatient setting at [employer] asked some questions so I spoke with her via the phone. She is going to help encourage proning. Will give more lasix today. Very very guarded prognosis. 08/26/20: Pulm status is more stable today compared to yesterday. Continue bipap PRN and QHS. Will give IV lasix again today. Prognosis still remains very guarded. 08/25/20: Placed back on bipap this am secondary to desaturations and lower mental state than before. Patient has been stable and making improvements but now seems to be headed in the wrong direction. Will monitor very closely as he is a high risk for intubation and bad outcomes. Very very guarded prognosis. Will give lasix today. 08/24/20: Encouraged more proning. Continue BIpap QHS and PRN. unfortunately, no funding, patient would be a good LTACH candidate as he will likely take a long time to wean from HFNC. 08/23/20: No new recs. Proning is metcalf. Will continue to follow. Appreciate ID recs and help. 08/22/20: Bipap PRN and QHS. Will given lasix today. Prone as tolerated. PT continues. Slight improvement. Will continue to follow. 08/21/20: Bipap PRN and QHS. Hold on lasix today. Continue to prone as much as tolerated. Will order PT consult. 08/18/20: Bipap pRN and QHS. More lasix today. Prone as tolerated during the day and sleep prone at night. Continue to try to hold off on intubation. Guarded prognosis. 08/17/20: Continue anticoagulation. Still trying to prevent intubation however will do electively if and when needed to prevent and emergent situation as patient will likely be difficult given neck and body habitus. Continue prone as tolerated. Steroids and remdesivir. 08/16/20: Anticoagulation. Prone as tolerated. Wean bipap as tolerated. Prognosis remains guarded. Trying to prevent intubation given poor outcomes associated with mechanically ventilated obese COVID patients. 08/15/20: Continue therapeutic anticoagulation. No current indication for vascular consult given no evidence of right heart strain on echo. CT would only be beneficial if we thought it would show large enough clot to warrant EKOS and with no evidence of strain, I doubt that will be the case. Continue proning as much as tolerated. Spoke with mother over the phone to update her. Patient also got actemra on yesterday as well. Prognosis remains guarded 08/14/20: Will accept sats in the mid 80's as long as mental state and work of breathing do not change. AGree with lasix therapy. Found to have large DVT on right. Spoke with [facility] and asked them to order stat echo to look for right heart strain, and if present may need to consider echos. Await echo before vascular consult. Prone if possible. Long discussion with mother on phone. Gave her a list of the meds he is on and what our current plan is. Also very candid with her and son at bedside that the mortality rate with COVID is very very high. 08/13/20: Lasix again today. Continue to alternate between HFNC with NRB and bipap. Prognosis is very very guarded. Very very guarded to poor prognosis given CXR appearance, and body habitus, al patrica with rapid decline in self sustaning oxygen levels. Agree with lasix and increase in steroids. Must prone. Very high likelihood for mechanical ventilation which would carry a high mortality for patient. Will continue to follow. No additional IVF's unless indicated. Subjective Date of service: 09/19/20 Principal diagnosis: COVID Interval history: Patient being discharged. Home oxygen being arranged. Objective Vital Signs - 12hr 09/18/20 09/19/20 09/19/20 23:06 00:00 05:36 Temperature 98.0 F 97.8 F Pulse Rate 85 75 68 Respiratory 18 25 H 18 Rate Blood Pressure 135/73 114/73 O2 Sat by Pulse 86 97 100 Oximetry 09/19/20 07:05 Temperature Pulse Rate Respiratory Rate Blood Pressure O2 Sat by Pulse 96 Oximetry Constitutional: no acute distress, alert, other (obese) Eyes: non-icteric ENT: oropharynx moist Neck: supple Effort: normal Ascultation: Bilateral: clear Cardiovascular: regular rate and rhythm (no mrg) Gastrointestinal: normoactive bowel sounds, soft, non-distended Integumentary: normal Extremities: no cyanosis, no edema, pink and warm Neurologic: normal mental status, non-focal exam Psychiatric: mood appropriate, affect normal CBC and BMP: 09/11/20 05:53 09/11/20 05:53 ABG, PT/INR, D-dimer: ABG ABG pH 7.313 pH Units (7.350-7.450) L 08/25/20 12:30 POC ABG pCO2 46.9 mmHg (32.0-48.0) 08/14/20 08:23 ABG pCO2 67.2 mm Hg 08/25/20 12:30 POC ABG pO2 50.0 mmHg (83-108) L 08/14/20 08:23 ABG pO2 76.2 mm Hg (80.0-90.0) L 08/25/20 12:30 POC ABG HCO3 31.4 08/14/20 08:23 ABG O2 Saturation 94.9 % (95.0-99.0) L 08/25/20 12:30 PT/INR, D-dimer PT 12.6 Sec. (12.2-14.9) 08/10/20 08:29 INR 0.96 (0.87-1.13) 08/10/20 08:29 D-Dimer 548.23 ng/mlDDU (0-234) H 09/10/20 10:24 Abnormal lab findings: Abnormal Labs 08/10/20 08/10/20 08/10/20 08:29 08:29 08:29 WBC Lymph % (Auto) [place] % (Auto) 8.4 H Lymph # (Auto) [place] # (Auto) Seg Neutrophils % Seg Neuts % (Manual) Lymphocytes % (Manual) Seg Neutrophils # Seg Neutrophils # Man Lymphocytes # (Manual) Monocytes # (Manual) D-Dimer ABG pH POC ABG pCO2 POC ABG pO2 ABG pO2 ABG HCO3 ABG O2 Saturation ABG Base Excess ABG Hemoglobin ABG Oxyhemoglobin ABG Potassium ABG Glucose VBG pH 7.303 L Oxyhemoglobin Sodium Potassium Chloride Carbon Dioxide BUN Creatinine Glucose 132 H POC Glucose Hemoglobin A1c Magnesium Ferritin AST Lactate Dehydrogenase C-Reactive Protein Albumin Arterial Blood Glucose Coronavirus (PCR) 08/11/20 08/11/20 08/11/20 05:39 05:39 05:39 WBC Lymph % (Auto) 12.5 L [place] % (Auto) Lymph # (Auto) [place] # (Auto) Seg Neutrophils % 84.2 H Seg Neuts % (Manual) Lymphocytes % (Manual) Seg Neutrophils # 9.1 H Seg Neutrophils # Man Lymphocytes # (Manual) Monocytes # (Manual) D-Dimer ABG pH POC ABG pCO2 POC ABG pO2 ABG pO2 ABG HCO3 ABG O2 Saturation ABG Base Excess ABG Hemoglobin ABG Oxyhemoglobin ABG Potassium ABG Glucose VBG pH Oxyhemoglobin Sodium Potassium Chloride Carbon Dioxide BUN Creatinine Glucose 125 H POC Glucose Hemoglobin A1c 6.1 H Magnesium Ferritin AST Lactate Dehydrogenase C-Reactive Protein Albumin Arterial Blood Glucose Coronavirus (PCR) 08/11/20 08/11/20 08/11/20 18:58 18:58 18:58 WBC Lymph % (Auto) [place] % (Auto) Lymph # (Auto) [place] # (Auto) Seg Neutrophils % Seg Neuts % (Manual) Lymphocytes % (Manual) Seg Neutrophils # Seg Neutrophils # Man Lymphocytes # (Manual) Monocytes # (Manual) D-Dimer 464.84 H ABG pH POC ABG pCO2 POC ABG pO2 ABG pO2 ABG HCO3 ABG O2 Saturation ABG Base Excess ABG Hemoglobin ABG Oxyhemoglobin ABG Potassium ABG Glucose VBG pH Oxyhemoglobin Sodium Potassium Chloride Carbon Dioxide BUN Creatinine Glucose POC Glucose Hemoglobin A1c Magnesium Ferritin 528.7 H AST Lactate Dehydrogenase 637 H C-Reactive Protein 11.30 H Albumin Arterial Blood Glucose Coronavirus (PCR) 08/11/20 08/11/20 08/12/20 19:08 Unknown 06:29 WBC 11.2 H Lymph % (Auto) 8.6 L [place] % (Auto) Lymph # (Auto) 1.0 L [place] # (Auto) Seg Neutrophils % 88.3 H Seg Neuts % (Manual) Lymphocytes % (Manual) Seg Neutrophils # 9.8 H Seg Neutrophils # Man Lymphocytes # (Manual) Monocytes # (Manual) D-Dimer ABG pH POC ABG pCO2 POC ABG pO2 ABG pO2 ABG HCO3 ABG O2 Saturation ABG Base Excess ABG Hemoglobin ABG Oxyhemoglobin ABG Potassium ABG Glucose VBG pH Oxyhemoglobin Sodium Potassium Chloride Carbon Dioxide BUN Creatinine Glucose 161 H POC Glucose Hemoglobin A1c Magnesium Ferritin AST Lactate Dehydrogenase C-Reactive Protein Albumin Arterial Blood Glucose Coronavirus (PCR) Positive A 08/12/20 08/12/20 08/12/20 06:29 06:29 06:29 WBC Lymph % (Auto) [place] % (Auto) Lymph # (Auto) [place] # (Auto) Seg Neutrophils % Seg Neuts % (Manual) Lymphocytes % (Manual) Seg Neutrophils # Seg Neutrophils # Man Lymphocytes # (Manual) Monocytes # (Manual) D-Dimer 830.34 H ABG pH POC ABG pCO2 POC ABG pO2 ABG pO2 ABG HCO3 ABG O2 Saturation ABG Base Excess ABG Hemoglobin ABG Oxyhemoglobin ABG Potassium ABG Glucose VBG pH Oxyhemoglobin Sodium Potassium Chloride Carbon Dioxide 31 H BUN Creatinine Glucose 138 H POC Glucose Hemoglobin A1c Magnesium Ferritin 572.6 H AST 42 H Lactate Dehydrogenase 706 H C-Reactive Protein 17.30 H Albumin 3.7 L Arterial Blood Glucose Coronavirus (PCR) 08/12/20 08/12/20 08/12/20 13:21 14:55 21:59 WBC Lymph % (Auto) [place] % (Auto) Lymph # (Auto) [place] # (Auto) Seg Neutrophils % Seg Neuts % (Manual) Lymphocytes % (Manual) Seg Neutrophils # Seg Neutrophils # Man Lymphocytes # (Manual) Monocytes # (Manual) D-Dimer ABG pH 7.315 L POC ABG pCO2 57.1 H POC ABG pO2 47.8 L ABG pO2 65.8 L ABG HCO3 31.4 H ABG O2 Saturation 91.7 L ABG Base Excess ABG Hemoglobin 19.3 H ABG Oxyhemoglobin ABG Potassium 4.9 H ABG Glucose 182 H VBG pH Oxyhemoglobin 89.7 L Sodium Potassium Chloride Carbon Dioxide BUN Creatinine Glucose POC Glucose 142 H Hemoglobin A1c Magnesium Ferritin AST Lactate Dehydrogenase C-Reactive Protein Albumin Arterial Blood Glucose 182 H Coronavirus (PCR) 08/13/20 08/13/20 08/13/20 05:35 05:35 12:11 WBC 12.0 H Lymph % (Auto) 8.1 L [place] % (Auto) Lymph # (Auto) 1.0 L [place] # (Auto) Seg Neutrophils % 88.0 H Seg Neuts % (Manual) Lymphocytes % (Manual) Seg Neutrophils # 10.5 H Seg Neutrophils # Man Lymphocytes # (Manual) Monocytes # (Manual) D-Dimer ABG pH POC ABG pCO2 POC ABG pO2 ABG pO2 ABG HCO3 ABG O2 Saturation ABG Base Excess ABG Hemoglobin ABG Oxyhemoglobin ABG Potassium ABG Glucose VBG pH Oxyhemoglobin Sodium Potassium 5.1 H Chloride Carbon Dioxide 31 H BUN 25 H Creatinine Glucose 174 H POC Glucose 154 H Hemoglobin A1c Magnesium Ferritin AST 41 H Lactate Dehydrogenase 996 H C-Reactive Protein Albumin 3.8 L Arterial Blood Glucose Coronavirus (PCR) 08/13/20 08/13/20 08/14/20 16:18 23:24 05:21 WBC 14.2 H Lymph % (Auto) 8.2 L [place] % (Auto) Lymph # (Auto) [place] # (Auto) 0.9 H Seg Neutrophils % 85.4 H Seg Neuts % (Manual) Lymphocytes % (Manual) Seg Neutrophils # 12.2 H Seg Neutrophils # Man Lymphocytes # (Manual) Monocytes # (Manual) D-Dimer ABG pH POC ABG pCO2 POC ABG pO2 ABG pO2 ABG HCO3 ABG O2 Saturation ABG Base Excess ABG Hemoglobin ABG Oxyhemoglobin ABG Potassium ABG Glucose VBG pH Oxyhemoglobin Sodium Potassium Chloride Carbon Dioxide BUN Creatinine Glucose POC Glucose 188 H 127 H Hemoglobin A1c Magnesium Ferritin AST Lactate Dehydrogenase C-Reactive Protein Albumin Arterial Blood Glucose Coronavirus (PCR) 08/14/20 08/14/20 08/14/20 05:21 05:21 05:21 WBC Lymph % (Auto) [place] % (Auto) Lymph # (Auto) [place] # (Auto) Seg Neutrophils % Seg Neuts % (Manual) Lymphocytes % (Manual) Seg Neutrophils # Seg Neutrophils # Man Lymphocytes # (Manual) Monocytes # (Manual) D-Dimer > 80091 H ABG pH POC ABG pCO2 POC ABG pO2 ABG pO2 ABG HCO3 ABG O2 Saturation ABG Base Excess ABG Hemoglobin ABG Oxyhemoglobin ABG Potassium ABG Glucose VBG pH Oxyhemoglobin Sodium Potassium Chloride Carbon Dioxide 32 H 33 H BUN 26 H 26 H Creatinine Glucose 152 H 156 H POC Glucose Hemoglobin A1c Magnesium Ferritin AST 53 H 54 H Lactate Dehydrogenase 1249 H C-Reactive Protein 9.90 H Albumin 3.7 L 3.7 L Arterial Blood Glucose Coronavirus (PCR) 08/14/20 08/14/20 08/14/20 05:21 05:58 08:23 WBC Lymph % (Auto) [place] % (Auto) Lymph # (Auto) [place] # (Auto) Seg Neutrophils % Seg Neuts % (Manual) Lymphocytes % (Manual) Seg Neutrophils # Seg Neutrophils # Man Lymphocytes # (Manual) Monocytes # (Manual) D-Dimer ABG pH POC ABG pCO2 POC ABG pO2 50.0 L ABG pO2 ABG HCO3 ABG O2 Saturation ABG Base Excess ABG Hemoglobin ABG Oxyhemoglobin 84.0 L ABG Potassium ABG Glucose 141 H VBG pH Oxyhemoglobin Sodium Potassium Chloride Carbon Dioxide BUN Creatinine Glucose POC Glucose 139 H Hemoglobin A1c Magnesium Ferritin 1198.0 H AST Lactate Dehydrogenase C-Reactive Protein Albumin Arterial Blood Glucose 141 H Coronavirus (PCR) 08/15/20 08/15/20 08/16/20 05:16 05:16 05:26 WBC 13.7 H 17.7 H Lymph % (Auto) 8.2 L [place] % (Auto) Lymph # (Auto) [place] # (Auto) Seg Neutrophils % 86.2 H Seg Neuts % (Manual) 91.0 H 88.0 H Lymphocytes % (Manual) 7.0 L 9.0 L Seg Neutrophils # 15.3 H Seg Neutrophils # Man 12.5 H 15.6 H Lymphocytes # (Manual) 1.0 L Monocytes # (Manual) D-Dimer ABG pH POC ABG pCO2 POC ABG pO2 ABG pO2 ABG HCO3 ABG O2 Saturation ABG Base Excess ABG Hemoglobin ABG Oxyhemoglobin ABG Potassium ABG Glucose VBG pH Oxyhemoglobin Sodium Potassium Chloride Carbon Dioxide 32 H BUN 29 H Creatinine Glucose 150 H POC Glucose Hemoglobin A1c Magnesium Ferritin AST Lactate Dehydrogenase 1150 H C-Reactive Protein Albumin 3.5 L Arterial Blood Glucose Coronavirus (PCR) 08/16/20 08/16/20 08/16/20 05:26 05:26 05:26 WBC Lymph % (Auto) [place] % (Auto) Lymph # (Auto) [place] # (Auto) Seg Neutrophils % Seg Neuts % (Manual) Lymphocytes % (Manual) Seg Neutrophils # Seg Neutrophils # Man Lymphocytes # (Manual) Monocytes # (Manual) D-Dimer > 26579 H ABG pH POC ABG pCO2 POC ABG pO2 ABG pO2 ABG HCO3 ABG O2 Saturation ABG Base Excess ABG Hemoglobin ABG Oxyhemoglobin ABG Potassium ABG Glucose VBG pH Oxyhemoglobin Sodium Potassium 5.2 H Chloride Carbon Dioxide BUN 25 H Creatinine Glucose 163 H POC Glucose Hemoglobin A1c Magnesium Ferritin 1013.0 H AST Lactate Dehydrogenase C-Reactive Protein 4.00 H Albumin 3.6 L Arterial Blood Glucose Coronavirus (PCR) 08/17/20 08/17/20 08/17/20 05:06 05:06 07:51 WBC 20.7 H Lymph % (Auto) [place] % (Auto) Lymph # (Auto) [place] # (Auto) Seg Neutrophils % Seg Neuts % (Manual) 86.0 H Lymphocytes % (Manual) 7.0 L Seg Neutrophils # Seg Neutrophils # Man 17.8 H Lymphocytes # (Manual) Monocytes # (Manual) 1.2 H D-Dimer ABG pH POC ABG pCO2 POC ABG pO2 ABG pO2 ABG HCO3 ABG O2 Saturation ABG Base Excess ABG Hemoglobin ABG Oxyhemoglobin ABG Potassium ABG Glucose VBG pH Oxyhemoglobin Sodium Potassium Chloride 96.5 L Carbon Dioxide 31 H BUN 29 H Creatinine Glucose 121 H POC Glucose 110 H Hemoglobin A1c Magnesium Ferritin AST 46 H Lactate Dehydrogenase C-Reactive Protein Albumin 3.7 L Arterial Blood Glucose Coronavirus (PCR) 08/17/20 08/17/20 08/18/20 11:42 21:45 05:13 WBC Lymph % (Auto) [place] % (Auto) Lymph # (Auto) [place] # (Auto) Seg Neutrophils % Seg Neuts % (Manual) Lymphocytes % (Manual) Seg Neutrophils # Seg Neutrophils # Man Lymphocytes # (Manual) Monocytes # (Manual) D-Dimer > 1000 H ABG pH POC ABG pCO2 POC ABG pO2 ABG pO2 ABG HCO3 ABG O2 Saturation ABG Base Excess ABG Hemoglobin ABG Oxyhemoglobin ABG Potassium ABG Glucose VBG pH Oxyhemoglobin Sodium Potassium Chloride Carbon Dioxide BUN Creatinine Glucose POC Glucose 122 H 143 H Hemoglobin A1c Magnesium Ferritin AST Lactate Dehydrogenase C-Reactive Protein Albumin Arterial Blood Glucose Coronavirus (PCR) 08/18/20 08/18/20 08/21/20 05:13 05:13 11:17 WBC Lymph % (Auto) [place] % (Auto) Lymph # (Auto) [place] # (Auto) Seg Neutrophils % Seg Neuts % (Manual) Lymphocytes % (Manual) Seg Neutrophils # Seg Neutrophils # Man Lymphocytes # (Manual) Monocytes # (Manual) D-Dimer ABG pH POC ABG pCO2 POC ABG pO2 ABG pO2 ABG HCO3 ABG O2 Saturation ABG Base Excess ABG Hemoglobin ABG Oxyhemoglobin ABG Potassium ABG Glucose VBG pH Oxyhemoglobin Sodium 133 L Potassium Chloride 94.7 L Carbon Dioxide BUN 33 H Creatinine Glucose 110 H POC Glucose 151 H Hemoglobin A1c Magnesium Ferritin 979.8 H AST 50 H Lactate Dehydrogenase C-Reactive Protein Albumin 3.7 L Arterial Blood Glucose Coronavirus (PCR) 08/21/20 08/21/20 08/21/20 13:39 13:39 15:55 WBC Lymph % (Auto) [place] % (Auto) Lymph # (Auto) [place] # (Auto) Seg Neutrophils % Seg Neuts % (Manual) Lymphocytes % (Manual) Seg Neutrophils # Seg Neutrophils # Man Lymphocytes # (Manual) Monocytes # (Manual) D-Dimer 6731.66 H ABG pH POC ABG pCO2 POC ABG pO2 ABG pO2 ABG HCO3 ABG O2 Saturation ABG Base Excess ABG Hemoglobin ABG Oxyhemoglobin ABG Potassium ABG Glucose VBG pH Oxyhemoglobin Sodium Potassium Chloride Carbon Dioxide BUN Creatinine Glucose POC Glucose Hemoglobin A1c Magnesium Ferritin 1019.0 H AST Lactate Dehydrogenase 1251 H C-Reactive Protein Albumin Arterial Blood Glucose Coronavirus (PCR) 08/22/20 08/22/20 08/25/20 05:23 05:23 12:30 WBC 24.7 H Lymph % (Auto) [place] % (Auto) Lymph # (Auto) [place] # (Auto) Seg Neutrophils % Seg Neuts % (Manual) Lymphocytes % (Manual) Seg Neutrophils # Seg Neutrophils # Man Lymphocytes # (Manual) Monocytes # (Manual) D-Dimer ABG pH 7.313 L POC ABG pCO2 POC ABG pO2 ABG pO2 76.2 L ABG HCO3 33.3 H ABG O2 Saturation 94.9 L ABG Base Excess 5.0 H ABG Hemoglobin 13.4 L ABG Oxyhemoglobin ABG Potassium ABG Glucose VBG pH Oxyhemoglobin 93.0 L Sodium 136 L Potassium Chloride 96.3 L Carbon Dioxide BUN 24 H Creatinine 0.7 L Glucose 115 H POC Glucose Hemoglobin A1c Magnesium Ferritin AST Lactate Dehydrogenase C-Reactive Protein Albumin Arterial Blood Glucose Coronavirus (PCR) 08/25/20 08/25/20 08/25/20 16:08 16:08 16:08 WBC Lymph % (Auto) [place] % (Auto) Lymph # (Auto) [place] # (Auto) Seg Neutrophils % Seg Neuts % (Manual) Lymphocytes % (Manual) Seg Neutrophils # Seg Neutrophils # Man Lymphocytes # (Manual) Monocytes # (Manual) D-Dimer 4487.76 H ABG pH POC ABG pCO2 POC ABG pO2 ABG pO2 ABG HCO3 ABG O2 Saturation ABG Base Excess ABG Hemoglobin ABG Oxyhemoglobin ABG Potassium ABG Glucose VBG pH Oxyhemoglobin Sodium Potassium Chloride Carbon Dioxide BUN Creatinine Glucose POC Glucose Hemoglobin A1c Magnesium Ferritin 961.4 H AST Lactate Dehydrogenase 959 H C-Reactive Protein Albumin Arterial Blood Glucose Coronavirus (PCR) 08/26/20 08/26/20 08/31/20 07:11 07:11 10:56 WBC Lymph % (Auto) [place] % (Auto) 9.8 H Lymph # (Auto) [place] # (Auto) 1.0 H Seg Neutrophils % Seg Neuts % (Manual) Lymphocytes % (Manual) Seg Neutrophils # Seg Neutrophils # Man Lymphocytes # (Manual) Monocytes # (Manual) D-Dimer ABG pH POC ABG pCO2 POC ABG pO2 ABG pO2 ABG HCO3 ABG O2 Saturation ABG Base Excess ABG Hemoglobin ABG Oxyhemoglobin ABG Potassium ABG Glucose VBG pH Oxyhemoglobin Sodium 135 L Potassium Chloride 95.7 L 97.4 L Carbon Dioxide 33 H 34 H BUN Creatinine 0.6 L Glucose 109 H POC Glucose Hemoglobin A1c Magnesium 2.40 H Ferritin AST Lactate Dehydrogenase C-Reactive Protein Albumin Arterial Blood Glucose Coronavirus (PCR) 09/05/20 09/05/20 09/06/20 07:11 07:11 10:43 WBC 14.0 H Lymph % (Auto) 10.8 L [place] % (Auto) Lymph # (Auto) [place] # (Auto) Seg Neutrophils % 82.6 H Seg Neuts % (Manual) Lymphocytes % (Manual) Seg Neutrophils # 11.6 H Seg Neutrophils # Man Lymphocytes # (Manual) Monocytes # (Manual) D-Dimer 877.51 H ABG pH POC ABG pCO2 POC ABG pO2 ABG pO2 ABG HCO3 ABG O2 Saturation ABG Base Excess ABG Hemoglobin ABG Oxyhemoglobin ABG Potassium ABG Glucose VBG pH Oxyhemoglobin Sodium Potassium Chloride Carbon Dioxide 36 H BUN 21 H Creatinine 0.6 L Glucose 123 H POC Glucose Hemoglobin A1c Magnesium Ferritin AST Lactate Dehydrogenase C-Reactive Protein Albumin Arterial Blood Glucose Coronavirus (PCR) 09/06/20 09/06/20 09/10/20 10:43 10:43 08:01 WBC Lymph % (Auto) [place] % (Auto) Lymph # (Auto) [place] # (Auto) Seg Neutrophils % Seg Neuts % (Manual) Lymphocytes % (Manual) Seg Neutrophils # Seg Neutrophils # Man Lymphocytes # (Manual) Monocytes # (Manual) D-Dimer ABG pH POC ABG pCO2 POC ABG pO2 ABG pO2 ABG HCO3 ABG O2 Saturation ABG Base Excess ABG Hemoglobin ABG Oxyhemoglobin ABG Potassium ABG Glucose VBG pH Oxyhemoglobin Sodium Potassium Chloride Carbon Dioxide 32 H BUN Creatinine 0.7 L Glucose 140 H POC Glucose Hemoglobin A1c Magnesium Ferritin 666.4 H AST Lactate Dehydrogenase 607 H C-Reactive Protein Albumin Arterial Blood Glucose Coronavirus (PCR) 09/10/20 09/10/20 09/10/20 10:24 10:24 10:24 WBC Lymph % (Auto) [place] % (Auto) Lymph # (Auto) [place] # (Auto) Seg Neutrophils % Seg Neuts % (Manual) Lymphocytes % (Manual) Seg Neutrophils # Seg Neutrophils # Man Lymphocytes # (Manual) Monocytes # (Manual) D-Dimer 548.23 H ABG pH POC ABG pCO2 POC ABG pO2 ABG pO2 ABG HCO3 ABG O2 Saturation ABG Base Excess ABG Hemoglobin ABG Oxyhemoglobin ABG Potassium ABG Glucose VBG pH Oxyhemoglobin Sodium Potassium Chloride Carbon Dioxide BUN Creatinine Glucose POC Glucose Hemoglobin A1c Magnesium Ferritin 719.2 H AST Lactate Dehydrogenase 495 H C-Reactive Protein Albumin Arterial Blood Glucose Coronavirus (PCR) 09/11/20 09/11/20 05:53 05:53 WBC 17.7 H Lymph % (Auto) 11.2 L [place] % (Auto) Lymph # (Auto) [place] # (Auto) 0.9 H Seg Neutrophils % 83.1 H Seg Neuts % (Manual) Lymphocytes % (Manual) Seg Neutrophils # 14.7 H Seg Neutrophils # Man Lymphocytes # (Manual) Monocytes # (Manual) D-Dimer ABG pH POC ABG pCO2 POC ABG pO2 ABG pO2 ABG HCO3 ABG O2 Saturation ABG Base Excess ABG Hemoglobin ABG Oxyhemoglobin ABG Potassium ABG Glucose VBG pH Oxyhemoglobin Sodium Potassium Chloride 94.9 L Carbon Dioxide 32 H BUN Creatinine 0.7 L Glucose 137 H POC Glucose Hemoglobin A1c Magnesium Ferritin AST Lactate Dehydrogenase C-Reactive Protein Albumin Arterial Blood Glucose Coronavirus (PCR)
--- NOTE | 2020-09-19 14:06 | Progress Note ---
Assessment and Plan --Acute hypoxic respiratory failure secondary to COVID-19 PNA s/p high flow oxygen most recent numbers 25 L/60 FiO2/97 O2 sats with intermi ttent BiPAP Patient unstable to go for CTA chest to evaluate the cause of persistent hypoxia, cont eliquis for now pulmonary following, Home O2 evaluation at discharge --COVID-19 Pneumonia Continue steroids tapering dose s/p Remdesivir, s/p tocilizumab s/p HF NC O2, now on N/c, titrate and wean as tolerated --Right lower extremity DVT on LE Doppler study LE Doppler LE Doppler shows RLE DVT. Echocardiogram shows no right heart strain. On Eliquis per protocol --Sinus bradycardia /resolved Likely from remdesivir TSH wnl --Morbid obesity; BMI 40.4 Diet and exercise advised Patient needs outpatient bariatric surgical/medical weight reduction consult when medically stable --DVT prophylaxis;-on Eliquis[positive DVT] Continues to be on high flow oxygen/BiPAP wean as tolerated We will closely monitor the patient and adjust management as needed Associate Professor Of Biblical Studies recommendations noted and appreciated Plan of care reviewed with the patient and his nurse and the case management Also discussed with professor of business and case management Brief history 30-year-old male with morbid obesity weighing about 310 pounds was admitted through emergency room with frontal headache for 3 days. Was admitted through emergency room with acute hypoxic respiratory failure requiring BiPAP and high flow nasal cannula oxygen, admitted to [facility] tested positive for Covid 19, evaluated and followed by pulmonary, ID, managed appropriately per Covid protocols however patient continues to require high flow nasal cannula oxygen and intermittent BiPAP, patient is morbidly obese Patient may need bariatric surgical consultation upon discharge for weight reduction program when medically stable Daily Hospital course: 08/11. Patient seen examined at bedside this morning. Has no complaints. Febrile this a.m.-103 Fahrenheit. On Tylenol as needed. COVID-19 test ordered. Remains on steroids. ID consult if COVID-19 is positive. 08/12. His COVID-19 test is positive. He was started on remdesivir last night. Oxygen requirement increased overnight. Inflammatory markers increasing. Repeat chest xray shows worsening infiltrates. Ordered BNP. Lasix 40mg IV ordered. Increased dexamethasone to 6mg BID. Pulmonology consulted. Will place on continuous pulse oximetry. Incentive spirometer ordered. Advised prone positioning. 08/13. Not feeling better. Seen on BIPAP. Remains on steroids, remdesivir and antibiotics. Vitals stable. 08/14. Still maintaining sats even on BiPAP. Lasix 40 mg IV ordered. D-dimer this a.m. is more than 10,000. Lovenox increased to 150 mg twice daily. Ultrasound lower extremities Doppler showed a right DVT. Echocardiogram ordered to rule out right heart strain. Pending results, patient may need vascular surgery evaluation for possible thrombectomy. Continue on BiPAP and continue to monitor respiratory status closely. 08/15. Sats better this AM. Received toculizumab yesterday. Advised him to prone as much as possible. Echo shows normal EF with no right heart strain. I/Os reviewed. He is diuresing well. Renal function is stable. Will give additional lasix today. Pulmonology following 08/16. Remains on remdesivir. Still on BIPAP. Will give lasix 20mg IV. HR is low - likley effect of remdesivir. Will continue to monitor closely 08/17. Sats in the 90's this AM. Still on BIPAP. 08/18; patient remains hypoxic requiring BiPAP and 100% nonrebreather intermittently 08/19; Continue supportive care, wean oxygen as tolerated. Encouraged PRONE positioning if able to tolerate. 08/20:Remains on BiPAP. continue lasix, still not proninig, encouraged to prone, FIO2 down to 90% with sat of 96%. Continue care, prognosis still guarded. 08/21: Patient down on high flow. Continue to encourage proning position. Still with guarded prognosis. Elevation in WBC noted to 20 this could be secondary to steroids I will continue to monitor. No fever noted at this time. Patient's respiratory status has stabilized on the high flow with no shallow breathing noted Discussed with the nurse at bedside 08/22; DC Lovenox therapeutic dose, start Eliquis per protocol to treat lower extremity DVT. 08/23; patient remains on high flow oxygen 40 L/100 FiO2/94% O2 sats, intermittent BiPAP 08/24; patient remains on high flow oxygen and BiPAP, consultants recommendations noted and appreciated 08/25; patient continues to be hypoxemic, on high flow oxygen 40L/ 100 FiO2/95 O2 sats and on intermittent BiPAP 08/26; patient continues to be on high flow oxygen, unable to wean follow pulmonary recommendations 08/27; patient remains on high flow oxygen 40 L/100% FiO2/95% O2 sats with intermittent BiPAP treatment 08/28; patient remains on high flow oxygen, strongly advised to prone as tolerated, consults and recommendations noted and appreciated 08/29; closely monitor the patient and adjust management as needed, wean oxygen as tolerated Home oxygen evaluation, DC planning when medically stable 08/30; clinically no change, remains on high flow oxygen, wean as tolerated Consultants recommendations noted . 08/31; patient remains on high flow oxygen 40/100/93 09/01/20;patient remains on high flow oxygen 40/100/93 09/02/20; no change clinically, remains high flow O2, 09/03: No change clinically, remains on high flow O2 09/04:Some omproment, Sitting in Chair On 80 percent FIO2, 40 liters NC O 2 High flow 09/05: Patient feels slightly better Continues to be on high flow oxygen wean as tolerated Continue current management 09/06: Patient continues to require high flow oxygen at the settings of 40 L/85 FiO2/O2 sats 97% 09/07; oxygen requirement slightly improved today on 30 L/70% FiO2/100% O2 sats Encouraging prone position as tolerated 09/08; 30 L nasal cannula intermittent BiPAP, continue current management 09/09; mild improvement still remains on high flow nasal cannula O2 and BiPAP intermittent Wean as tolerated 09/10; patient on continuous BiPAP, feels slightly better DC planning per case management when stable 09/11; patient remains on high flow oxygen and BiPAP, follow clinically Wean as tolerated, check with case management possibility of getting BiPAP at discharge for this patient, she said she would find out Follow security and privacy consultant recommendations 09/12: Patient currently on high flow oxygen 25 L/min. We will transfer him out from the [facility] to [facility]. Continue to follow inflammatory markers, follow ID recommendation. Pulmonary following. Wean off O2 as tolerated. 09/13: remains on 25L O2, cont eliquis, follow inflammatory markers. 09/14: Patient weaned down to 5 L nasal cannula today, continue Eliquis. inf lammatory markers stable and trending down. Consult case management manager from home O2 arrangement. If patient able to maintain oxygenation below 5 L possible discharge home soon with home O2. 4/30: Patient remains on 5 L nasal cannula, per case management manager his oxygen requirement is to be less than 5 L set up home oxygen. Continue to follow clinically and wean off O2 as tolerated. 09/16 -09/17; Patient remains on 5 L nasal cannula, per case management manager his oxygen requirement is to be less than 5 L set up home oxygen. Continue to follow clinically and wean off O2 as tolerated. Instructed RN to wean off O2 re quirement as tolerated to be able to qualify from home O2. 09/18: Patient resting on 4 L nasal cannula, case management manager to arrange home O2 for discharge. Continue to provide supportive care Hospitalist Physical General appearance: Present: no acute distress, well-nourished, obese (Morbidly obese), other (nasal cannula oxygen) - EENT Eyes: Present: PERRL, EOM intact - Neck Neck: Present: supple, normal ROM - Respiratory Respiratory effort: normal Respiratory: bilateral: diminished, negative: rales, wheezing - Cardiovascular Rhythm: regular Heart Sounds: Present: S1 & S2 - Extremities Extremities: no ischemia, No edema - Abdominal General gastrointestinal: soft, non-tender, non-distended, normal bowel sounds - Integumentary Integumentary: Present: clear, warm - Psychiatric Psychiatric: appropriate mood/affect, cooperative - Neurologic Neurologic: moves all extremities Subjective Date of service: 09/18/20 Principal diagnosis: COVID Interval history: Patient seen and examined. Medical records and medication list reviewed. No acute event overnight noted by the RN. Patient remains on 5L nasal cannula o2 today. Patient is tolerating diet. Discussed plan of care at bedside with patient. Objective - Exam Narrative Exam: General appearance: Present: no acute distress, well-nourished, obese (Morbidly obese), other (nasal cannula oxygen) - EENT Eyes: Present: PERRL, EOM intact - Neck Neck: Present: supple, normal ROM - Respiratory Respiratory effort: normal Respiratory: bilateral: diminished, negative: rales, wheezing - Cardiovascular Rhythm: regular Heart Sounds: Present: S1 & S2 - Extremities Extremities: no ischemia, No edema - Abdominal General gastrointestinal: soft, non-tender, non-distended, normal bowel sounds - Integumentary Integumentary: Present: clear, warm - Psychiatric Psychiatric: appropriate mood/affect, cooperative - Neurologic Neurologic: moves all extremities - Constitutional Vitals: Vital Signs - 12hr 09/19/20 09/19/20 05:36 07:05 Temperature 97.8 F Pulse Rate 68 Respiratory 18 Rate Blood Pressure 114/73 O2 Sat by Pulse 100 96 Oximetry - Labs CBC & Chem 7: 09/11/20 05:53 09/11/20 05:53
[2020-09-19 14:15] VITALS: BP 135/82
== END 2020-09-19 16:05 | disposition home or self-care (01) | DRG 177 ==
LOC: ED 08:03 → 3A 11:23 → IMCU 08-12 20:26 → 3A 09-13 04:15
PROVIDERS: ADMIT Internal Medicine; ATTEND Internal Medicine
PROC: XW033E5 Introduction of Remdesivir Anti-infective into Peripheral Vein, Percutaneous Approach, New Technology Group 5 (ICD-10-PCS; 2020-08-11)
PROC: 4A033R1 Measurement of Arterial Saturation, Peripheral, Percutaneous Approach (ICD-10-PCS; principal; 2020-08-12)
PROC: 5A09557 Assistance with Respiratory Ventilation, Greater than 96 Consecutive Hours, Continuous Positive Airway Pressure (ICD-10-PCS; 2020-08-13)
DX: U07.1 COVID-19 (principal); J96.01 Acute respiratory failure with hypoxia; J12.82 Pneumonia due to coronavirus disease 2019; N17.9 Acute kidney failure, unspecified; I82.431 Acute embolism and thrombosis of right popliteal vein; Z68.41 Body mass index [BMI] 40.0-44.9, adult; E66.01 Morbid (severe) obesity due to excess calories; Z71.3 Dietary counseling and surveillance; R00.1 Bradycardia, unspecified
CPT/HCPCS: 36415; 36600; 71045; 80048; 80053; 81001; 82140; 82728; 82803; 82805; 82962; 83036; 83615; 83735; 83880; 84145; 84439; 84443; 85007; 85025; 85027; 85379; 85610; 86140; 87040; 87086; 93005; 93306; 93970; 94644; 94660; 94667; 96365; 96375; G0378; J0456; J0696; J1100; J1650; J1885; J1940; J2270; J2920; J2930; J3262; J7030; J7040; U0003

== ENCOUNTER 2021-06-15 17:42 | Inpatient (IN) | payer OTHER, SELFPAY ==
[2021-06-15] MEDS ORDERED: FUROSEMIDE 40 MG/4 ML INJ IV ONE (18:02)
[2021-06-15] MEDS ORDERED: dexAMETHasone 4 MG/ML VIAL IV ONE (18:02)
--- NOTE | 2021-06-15 18:02 | Emergency Department Report ---
ED General Adult HPI - General Chief complaint: Dyspnea/Respdistress Stated complaint: BI LEG/ABD SWOLLEN PUI?: No Time Seen by Provider: 06/15/21 17:54 Source: patient, RN notes reviewed, old records reviewed Mode of arrival: Ambulatory Limitations: No Limitations - History of Present Illness Initial comments: The patient was evaluated in the emergency department for symptoms described in the history of present illness. He/she was evaluated in the context of the global COVID-19 pandemic, which necessitated consideration that the patient might be at risk for infection with the virus that causes COVID-19. Institutional protocols and algorithms that pertain to the evaluation of patients at risk for COVID-19 are in a state of rapid change based on information released by regulatory bodies including the CDC and federal and state organizations. These policies and algorithms were followed during the patient's care in the emergency department. Please note that these policies, procedures and recommendations changed on a rapid basis. The patient is a 30-year-old gentleman, with a past medical history of morbid obesity, body mass index of 43. This patient was admitted to this hospital July 2020, with acute hypoxic respiratory failure, secondary to COVID-19. At that time, he had an echocardiogram performed, which showed an EF of 55%. The patient presents to the ER today with a complaint of leg cramping and swelling, and unintentional weight gain. He denies headache, neck pain, chest pain abdominal pain, and he reports that he does not feel short of breath. He denies hematemesis and bright red blood per rectum, denies travel, surgery, immobilization, DVT/PE risk factors. He does report that he snores at night, but he does not have a bed partner. He believes that he has a history of obstructive sleep apnea, but he does not believe that he is currently on a BiPAP or CPAP He is not COVID-19 vaccinated at this time, but he denies loss of taste and smell. He also denies fevers. His leg pain and swelling are constant. They decreased with rest. They worsen with physical exertion -: Gradual, days(s), week(s) Location: abdomen, left, right, lower extremity Consistency: constant Improves with: rest Worsens with: movement - Related Data Previous Rx's Medication Instructions Recorded Last Taken Type Albuterol Mdi (or & Nicu Only) 2 puff IH QID PRN #8.5 gram 09/18/20 Unknown Rx [ProAir HFA Inhaler] Apixaban [Eliquis] 5 mg PO Q12HR #60 tablet 09/18/20 Unknown Rx Ascorbic Acid [Vitamin C] 500 mg PO BID #10 tablet 09/18/20 Unknown Rx Cholecalciferol (Vitamin D3) 5,000 unit PO DAILY #5 tablet 09/18/20 Unknown Rx [Vitamin D3] Famotidine [Pepcid] 20 mg PO BID #10 tablet 09/18/20 Unknown Rx Zinc Sulfate 220 mg PO QDAY #5 capsule 09/18/20 Unknown Rx predniSONE [Deltasone] 20 mg PO QDAY #5 tab 09/18/20 Unknown Rx Allergies Allergy/AdvReac Type Severity Reaction Status Date / Time No Known Allergies Allergy Verified 08/10/20 08:11 ED Review of Systems ROS: Stated complaint: BI LEG/ABD SWOLLEN Other details as noted in HPI Constitutional: denies: fever ENT: denies: congestion Respiratory: orthopnea. denies: cough, shortness of breath Cardiovascular: orthopnea, edema. denies: chest pain, palpitations Gastrointestinal: denies: nausea, vomiting, hematemesis, melena, hematochezia Musculoskeletal: arthralgia, myalgia Neurological: denies: weakness ED Past Medical Hx - Past Medical History Hx Congestive Heart Failure: No Hx Asthma: No Hx HIV: No - Social History Smoking Status: Never Smoker - Medications Home Medications: Home Medications Medication Instructions Recorded Confirmed Last Taken Type Albuterol Mdi (or & Nicu Only) 2 puff IH QID PRN #8.5 gram 09/18/20 Unknown Rx [ProAir HFA Inhaler] Apixaban [Eliquis] 5 mg PO Q12HR #60 tablet 09/18/20 Unknown Rx Ascorbic Acid [Vitamin C] 500 mg PO BID #10 tablet 09/18/20 Unknown Rx Cholecalciferol (Vitamin D3) 5,000 unit PO DAILY #5 tablet 09/18/20 Unknown Rx [Vitamin D3] Famotidine [Pepcid] 20 mg PO BID #10 tablet 09/18/20 Unknown Rx Zinc Sulfate 220 mg PO QDAY #5 capsule 09/18/20 Unknown Rx predniSONE [Deltasone] 20 mg PO QDAY #5 tab 09/18/20 Unknown Rx ED Physical Exam - General Limitations: Physical Limitation General appearance: alert, in no apparent distress, obese - Head Head exam: Present: atraumatic, normocephalic - Eye Eye exam: Present: normal appearance, EOMI. Absent: nystagmus - ENT ENT exam: Present: normal exam, normal orophraynx, mucous membranes moist, normal external ear exam - Neck Neck exam: Present: normal inspection, full ROM. Absent: tenderness, meningismu s - Respiratory Respiratory exam: Present: decreased breath sounds. Absent: respiratory distress, wheezes, rales, rhonchi, stridor - Cardiovascular Cardiovascular Exam: Present: regular rate, normal rhythm, JVD. Absent: bradycardia, tachycardia, irregular rhythm, systolic murmur, diastolic murmur, rubs, gallop - GI/Abdominal GI/Abdominal exam: Present: soft, other (Abdominal wall anasarca is noted). Absent: distended, tenderness, guarding, rebound, rigid, pulsatile mass - Rectal Rectal exam: Present: deferred - Extremities Exam Extremities exam: Present: normal inspection, full ROM, pedal edema (4+ edema in the bilateral lower extremities), other (There is no long bony tenderness. The muscular compartments are soft. The pelvis is stable. 2+ pulses noted in the bilateral upper and lower extremities.) - Back Exam Back exam: Present: normal inspection. Absent: tenderness, CVA tenderness (R), CVA tenderness (L), paraspinal tenderness, vertebral tenderness - Neurological Exam Neurological exam: Present: alert, oriented X3, other (No facial droop. Tongue midline. Extraocular movements intact bilaterally. Facial sensation intact to light touch in V1, V2, V3 distribution bilaterally. 5 and a 5 strength in 4 extremities. Sensation intact to light touch in 4 extremities.). Absent: motor sensory deficit - Psychiatric Psychiatric exam: Present: normal affect, normal mood - Skin Skin exam: Present: warm, dry, intact, normal color. Absent: rash ED Course Vital Signs 06/15/21 17:49 Temperature 98.9 F Pulse Rate 106 H Respiratory 20 Rate Blood Pressure 131/88 O2 Sat by Pulse 78 L Oximetry - Reevaluation(s) Reevaluation #1: 06/15/21 19:17 Transaminitis likely secondary to congestive hepatopathy. The patient denies abdominal pain in the right upper quadrant. He has no right upper quadrant tenderness. He has a negative Bernal sign. ED Medical Decision Making - Lab Data Result diagrams: 06/15/21 18:08 06/15/21 18:08 Vital Signs - 24 hr 06/15/21 17:49 Temperature 98.9 F Pulse Rate 106 H Respiratory 20 Rate Blood Pressure 131/88 O2 Sat by Pulse 78 L Oximetry Lab Results 06/15/21 06/15/21 06/15/21 Range/Units 18:08 18:08 18:08 WBC 9.6 (4.5-11.0) K/mm3 RBC 5.48 H (3.65-5.03) M/mm3 Hgb 14.1 (11.8-15.2) gm/dl Hct 47.3 H (35.5-45.6) % MCV 86 (84-94) fl MCH 26 L (28-32) pg MCHC 30 L (32-34) % RDW 15.8 H (13.2-15.2) % Plt Count 275 (140-440) K/mm3 Lymph % (Auto) 20.9 (13.4-35.0) % Motley % (Auto) 12.8 H (0.0-7.3) % Eos % (Auto) 0.7 (0.0-4.3) % Baso % (Auto) 0.8 (0.0-1.8) % Lymph # (Auto) 2.0 (1.2-5.4) K/mm3 Motley # (Auto) 1.2 H (0.0-0.8) K/mm3 Eos # (Auto) 0.1 (0.0-0.4) K/mm3 Baso # (Auto) 0.1 (0.0-0.1) K/mm3 Seg Neutrophils % 64.8 (40.0-70.0) % Seg Neutrophils # 6.2 (1.8-7.7) K/mm3 PT 15.2 H (12.2-14.9) Sec. INR 1.08 (0.87-1.13) APTT 26.2 (24.2-36.6) Sec. Sodium 142 (137-145) mmol/L Potassium 5.4 H (3.6-5.0) mmol/L Chloride 105.4 (98-107) mmol/L Carbon Dioxide 25 (22-30) mmol/L Anion Gap 17 mmol/L BUN 24 H (9-20) mg/dL Creatinine 1.3 (0.8-1.3) mg/dL Estimated GFR > 60 ml/min BUN/Creatinine Ratio 18 % Glucose 119 H (75-100) mg/dL Calcium 8.8 (8.4-10.2) mg/dL Magnesium 2.60 H (1.7-2.3) mg/dL Total Bilirubin 0.50 (0.1-1.2) mg/dL AST 54 H (5-40) units/L ALT 80 H (7-56) units/L Alkaline Phosphatase 69 (35-129) units/L Total Creatine Kinase (55-170) units/L Troponin T (0.00-0.029) ng/mL NT-Pro-B Natriuret Pep (0-450) pg/mL Total Protein 6.5 (6.3-8.2) g/dL Albumin 3.5 L (3.9-5) g/dL Albumin/Globulin Ratio 1.2 % 06/15/21 Range/Units 18:08 WBC (4.5-11.0) K/mm3 RBC (3.65-5.03) M/mm3 Hgb (11.8-15.2) gm/dl Hct (35.5-45.6) % MCV (84-94) fl MCH (28-32) pg MCHC (32-34) % RDW (13.2-15.2) % Plt Count (140-440) K/mm3 Lymph % (Auto) (13.4-35.0) % Motley % (Auto) (0.0-7.3) % Eos % (Auto) (0.0-4.3) % Baso % (Auto) (0.0-1.8) % Lymph # (Auto) (1.2-5.4) K/mm3 Motley # (Auto) (0.0-0.8) K/mm3 Eos # (Auto) (0.0-0.4) K/mm3 Baso # (Auto) (0.0-0.1) K/mm3 Seg Neutrophils % (40.0-70.0) % Seg Neutrophils # (1.8-7.7) K/mm3 PT (12.2-14.9) Sec. INR (0.87-1.13) APTT (24.2-36.6) Sec. Sodium (137-145) mmol/L Potassium (3.6-5.0) mmol/L Chloride (98-107) mmol/L Carbon Dioxide (22-30) mmol/L Anion Gap mmol/L BUN (9-20) mg/dL Creatinine (0.8-1.3) mg/dL Estimated GFR ml/min BUN/Creatinine Ratio % Glucose (75-100) mg/dL Calcium (8.4-10.2) mg/dL Magnesium (1.7-2.3) mg/dL Total Bilirubin (0.1-1.2) mg/dL AST (5-40) units/L ALT (7-56) units/L Alkaline Phosphatase (35-129) units/L Total Creatine Kinase 380 H (55-170) units/L Troponin T < 0.010 (0.00-0.029) ng/mL NT-Pro-B Natriuret Pep 1619 H (0-450) pg/mL Total Protein (6.3-8.2) g/dL Albumin (3.9-5) g/dL Albumin/Globulin Ratio % - EKG Data -: EKG Interpreted by Mi EKG shows normal: sinus rhythm Rate: normal - EKG Data 06/15/21 19:10 The EKG is interpreted at 18: 05 Sinus tachycardia, rate 103 bpm. Normal axis, motion artifact V6, poor R wave progression, low voltage, normal P wave axis. Abnormal EKG. No STEMI. - Radiology Data Radiology results: report reviewed, image reviewed CHEST 1 VIEW 06/15/2021 6:07 PM INDICATION / CLINICAL INFORMATION: Dyspnea. COMPARISON: 08/23/2020 FINDINGS: Radiograph is underpenetrated likely due to body habitus and portable technique. SUPPORT DEVICES: None. HEART / MEDIASTINUM: No significant abnormality. LUNGS / PLEURA: There is some patchy airspace opacities in the left midlung zone. The overall appearance of the lungs appears improved when compared to the previous study from August the evaluation is not ideal. No pneumothorax. ADDITIONAL FINDINGS: No significant additional findings. IMPRESSION: 1. The lungs appear improved when compared to the previous study from August 2020. There does appear to be some patchy airspace opacity in the left lung. PA and lateral chest radiograph is recommended to better evaluate the lungs Signer Name: Rosendo Garland MD Signed: 06/15/2021 5:22 PM Workstation Name: [email or web address] - Medical Decision Making Differential diagnosis, including but not limited to: Congestive heart failure, right-sided heart failure, pneumonia, pulmonary hypertension, obstructive sleep apnea, COVID-19, obesity hypoventilation syndrome Assessment and plan: 30-year-old gentleman, who is not tachycardic, or tachypneic, who is PERC negative, who denies DVT/pulmonary embolism risk factors, who is morbidly obese, likely presenting with decompensated right-sided congestive heart failure, likely secondary to morbid obesity, obstructive sleep apnea, and pulmonary hypertension. He meets criteria for admission hospitalization secondary to physical exam evidence of fluid overload, and acute hypoxic respiratory failure. Do not have high suspicion for pneumonia at this time, however given hypoxia, and chest x-ray findings, we will cover empirically with Decadron, ceftriaxone and azithromycin. High-dose Lasix is ordered. Have ordered lower extremity DVT study, currently awaiting this to be performed. However, we will defer to the inpatient team to follow this up. Covid swab ordered. Patient currently on 4 to 5 L of supplemental oxygen, and states that he feels very comfortable. He is noted multiple times to be speaking on a cellular phone. Admitted to the medical service under the care of Dr. Garrison Baxter I discussed this plan of care with the patient, and he is agreeable. Critical Care Time: Yes Critical care time in (mins) excluding proc time.: 35 Critical care attestation.: If time is entered above; I have spent that time in minutes in the direct care of this critically ill patient, excluding procedure time. ED Disposition Clinical Impression: Acute respiratory failure with hypoxia, Morbid obesity, Lower extremity edema Disposition: ADMITTED INPATIENT Is pt being admited?: Yes Does the pt Need Aspirin: No Condition: Good
--- NOTE | 2021-06-15 18:27 | XRay Report ---
CHEST 1 VIEW 06/15/2021 6:07 PM INDICATION / CLINICAL INFORMATION: Dyspnea. COMPARISON: 08/23/2020 FINDINGS: Radiograph is underpenetrated likely due to body habitus and portable technique. SUPPORT DEVICES: None. HEART / MEDIASTINUM: No significant abnormality. LUNGS / PLEURA: There is some patchy airspace opacities in the left midlung zone. The overall appeara nce of the lungs appears improved when compared to the previous study from August the evaluation is no t ideal. No pneumothorax. ADDITIONAL FINDINGS: No significant additional findings. IMPRESSION: 1. The lungs appear improved when compared to the previous study from August 2020. There does appear t o be some patchy airspace opacity in the left lung. PA and lateral chest radiograph is recommended to better evaluate the lungs Signer Name: Rosendo Garland MD Signed: 06/15/2021 6:22 PM Workstation Name: [id number]
[2021-06-15 18:34] LABS: Basophils # (Auto) 0.1 K/mm3 (0.0-0.1); Basophils % (Auto) 0.8 % (0.0-1.8); Eosinophils # (Auto) 0.1 K/mm3 (0.0-0.4); Eosinophils % (Auto) 0.7 % (0.0-4.3); Lymphocytes % (Auto) 20.9 % (13.4-35.0); Mean Corpuscular HGB Conc 30 % (32-34); Mean Corpuscular Volume 86 fl (84-94); Monocytes # (Auto) 1.2 K/mm3 (0.0-0.8); Monocytes % (Auto) 12.8 % (0.0-7.3); Platelet Count 275 K/mm3 (140-440); Red Blood Count 5.48 M/mm3 (3.65-5.03); Red Cell Distribution Width 15.8 % (13.2-15.2)
[2021-06-15 18:44] LABS: INR 1.08 (0.87-1.13)
[2021-06-15 18:45] LABS: Hematocrit 47.3 % (35.5-45.6); Hemoglobin 14.1 gm/dl (11.8-15.2); Partial Thromboplastin Time 26.2 Sec. (24.2-36.6)
[2021-06-15 18:57] LABS: Alanine Aminotransferase 80 units/L (7-56); Albumin 3.5 g/dL (3.9-5); BUN/Creatinine Ratio 18; Blood Urea Nitrogen 24 mg/dL (9-20); Calcium 8.8 mg/dL (8.4-10.2); Hemolysis Index 57
[2021-06-15] MEDS ORDERED: cefTRIAXone/NS 1 GM/50 ML 1 GM/50 ML BAG IV ONE (19:07)
[2021-06-15] MEDS ORDERED: AZITHROMYCIN/NS 500 MG/250 ML 500 MG/250 ML BAG IV ONE (20:07)
--- NOTE | 2021-06-15 20:42 | History and Physical Report ---
History of Present Illness Date of examination: 06/15/21 Date of admission: June 15 2021 Chief complaint: Shortness of breath for 1 day History of present illness: 30-year-old -Gabonese male morbid obesity with BMI 43 was admitted to this hospital in July 2020 for hypoxic respiratory failure secondary to COVID- 19. At that time echocardiogram showed ejection fraction 55%. Today who presents with shortness of breath severe leg swelling for the last 1 week more so for the last 2 to 3 days. Patient has history of obstructive sleep apnea but does not use sleep apnea no fever or chills. Feels short of breath. He is not Covid 19 vaccinated orthopnea present. No recent travel. - Past Medical History --Gerd --Afib -Asthma/Hypoventilation -past surgical history ==None family history ==HTN social history food is an obsession - Social History Smoking Status: Never Smoker - Medications Home Medications: Home Medications Medication Instructions Recorded Confirmed Last Taken Type Albuterol Mdi (or & Nicu Only) 2 puff IH QID PRN #8.5 gram 09/18/20 Unknown Rx [ProAir HFA Inhaler] Apixaban [Eliquis] 5 mg PO Q12HR #60 tablet 09/18/20 Unknown Rx Ascorbic Acid [Vitamin C] 500 mg PO BID #10 tablet 09/18/20 Unknown Rx Cholecalciferol (Vitamin D3) 5,000 unit PO DAILY #5 tablet 09/18/20 Unknown Rx [Vitamin D3] Famotidine [Pepcid] 20 mg PO BID #10 tablet 09/18/20 Unknown Rx Zinc Sulfate 220 mg PO QDAY #5 capsule 09/18/20 Unknown Rx predniSONE [Deltasone] 20 mg PO QDAY #5 tab 09/18/20 Unknown Rx Review of Systems ROS: Stated complaint: BI LEG/ABD SWOLLEN Other details as noted in HPI Constitutional: denies: fever ENT: denies: congestion Respiratory: orthopnea. denies: cough, shortness of breath Cardiovascular: orthopnea, edema. denies: chest pain, palpitations Gastrointestinal: denies: nausea, vomiting, hematemesis, melena, hematochezia Musculoskeletal: arthralgia, myalgia Neurological: denies: weakness Medications and Allergies Allergies Allergy/AdvReac Type Severity Reaction Status Date / Time No Known Allergies Allergy Verified 08/10/20 08:11 Home Medications Medication Instructions Recorded Confirmed Last Taken Type Albuterol Mdi (or & Nicu Only) 2 puff IH QID PRN #8.5 gram 09/18/20 Unknown Rx [ProAir HFA Inhaler] Apixaban [Eliquis] 5 mg PO Q12HR #60 tablet 09/18/20 1 Day Ago Rx ~06/15/21 Ascorbic Acid [Vitamin C] 500 mg PO BID #10 tablet 09/18/20 06/15/21 Rx Cholecalciferol (Vitamin D3) 5,000 unit PO DAILY #5 tablet 09/18/20 06/15/21 Rx [Vitamin D3] Famotidine [Pepcid] 20 mg PO BID #10 tablet 09/18/20 Unknown Rx Zinc Sulfate 220 mg PO QDAY #5 capsule 09/18/20 Unknown Rx predniSONE [Deltasone] 20 mg PO QDAY #5 tab 09/18/20 Unknown Rx Active Meds: Active Medications Azithromycin (Zithromax/Ns) 500 mg in 250 mls @ 250 mls/hr IV ONCE ONE; Protocol Stop: 06/15/21 21:06 Last Admin: 06/15/21 20:03 Dose: 250 mls/hr Exam - Physical Exam Narrative exam: Morbidly obese - Constitutional Vitals: Temp Pulse Resp BP Pulse Ox 98.9 F 102 H 22 149/98 98 06/15/21 17:49 06/15/21 19:31 06/15/21 19:31 06/15/21 20:15 06/15/21 20:15 General appearance: Present: mild distress, well-nourished - EENT Eyes: Present: PERRL ENT: hearing intact, clear oral mucosa - Neck Neck: Present: supple, normal ROM - Respiratory Respiratory effort: normal Respiratory: bilateral: diminished, rhonchi (Scattered) - Cardiovascular Heart rate: 78 Rhythm: regular Heart Sounds: Present: S1 & S2. Absent: rub, click - Extremities Extremities: pulses symmetrical, No edema Peripheral Pulses: within normal limits - Abdominal General gastrointestinal: Present: soft, non-tender, non-distended, normal bowel sounds Male genitourinary: Present: normal - Integumentary Integumentary: Present: clear, warm, dry - Musculoskeletal Musculoskeletal: gait normal, strength equal bilaterally - Psychiatric Psychiatric: appropriate mood/affect, intact judgment & insight - Neurologic Neurologic: CNII-XII intact, moves all extremities HEART Score - HEART Score History: Slightly suspicious Risk factors: 1-2 risk factors Troponin: Troponin T < 0.010 ng/mL (0.00-0.029) 06/15/21 18:08 - Critical Actions Critical Actions: 4-6 pts:12-16.6% risk of adverse cardiac event. Should be admitted Results - Labs CBC & Chem 7: 06/15/21 18:08 06/15/21 18:08 Labs: Laboratory Last Values WBC 9.6 K/mm3 (4.5-11.0) 06/15/21 18:08 RBC 5.48 M/mm3 (3.65-5.03) H 06/15/21 18:08 Hgb 14.1 gm/dl (11.8-15.2) 06/15/21 18:08 Hct 47.3 % (35.5-45.6) H 06/15/21 18:08 MCV 86 fl (84-94) 06/15/21 18:08 MCH 26 pg (28-32) L 06/15/21 18:08 MCHC 30 % (32-34) L 06/15/21 18:08 RDW 15.8 % (13.2-15.2) H 06/15/21 18:08 Plt Count 275 K/mm3 (140-440) 06/15/21 18:08 Lymph % (Auto) 20.9 % (13.4-35.0) 06/15/21 18:08 [place] % (Auto) 12.8 % (0.0-7.3) H 06/15/21 18:08 Eos % (Auto) 0.7 % (0.0-4.3) 06/15/21 18:08 Baso % (Auto) 0.8 % (0.0-1.8) 06/15/21 18:08 Lymph # (Auto) 2.0 K/mm3 (1.2-5.4) 06/15/21 18:08 [place] # (Auto) 1.2 K/mm3 (0.0-0.8) H 06/15/21 18:08 Eos # (Auto) 0.1 K/mm3 (0.0-0.4) 06/15/21 18:08 Baso # (Auto) 0.1 K/mm3 (0.0-0.1) 06/15/21 18:08 Seg Neutrophils % 64.8 % (40.0-70.0) 06/15/21 18:08 Seg Neutrophils # 6.2 K/mm3 (1.8-7.7) 06/15/21 18:08 PT 15.2 Sec. (12.2-14.9) H 06/15/21 18:08 INR 1.08 (0.87-1.13) 06/15/21 18:08 APTT 26.2 Sec. (24.2-36.6) 06/15/21 18:08 Sodium 142 mmol/L (137-145) 06/15/21 18:08 Potassium 5.4 mmol/L (3.6-5.0) H 06/15/21 18:08 Chloride 105.4 mmol/L (98-107) 06/15/21 18:08 Carbon Dioxide 25 mmol/L (22-30) 06/15/21 18:08 Anion Gap 17 mmol/L 06/15/21 18:08 BUN 24 mg/dL (9-20) H 06/15/21 18:08 Creatinine 1.3 mg/dL (0.8-1.3) 06/15/21 18:08 Estimated GFR > 60 ml/min 06/15/21 18:08 BUN/Creatinine Ratio 18 % 06/15/21 18:08 Glucose 119 mg/dL (75-100) H 06/15/21 18:08 Calcium 8.8 mg/dL (8.4-10.2) 06/15/21 18:08 Magnesium 2.60 mg/dL (1.7-2.3) H 06/15/21 18:08 Total Bilirubin 0.50 mg/dL (0.1-1.2) 06/15/21 18:08 AST 54 units/L (5-40) H 06/15/21 18:08 ALT 80 units/L (7-56) H 06/15/21 18:08 Alkaline Phosphatase 69 units/L (35-129) 06/15/21 18:08 Total Creatine Kinase 380 units/L (55-170) H 06/15/21 18:08 Troponin T < 0.010 ng/mL (0.00-0.029) 06/15/21 18:08 NT-Pro-B Natriuret Pep 1619 pg/mL (0-450) H 06/15/21 18:08 Total Protein 6.5 g/dL (6.3-8.2) 06/15/21 18:08 Albumin 3.5 g/dL (3.9-5) L 06/15/21 18:08 Albumin/Globulin Ratio 1.2 % 06/15/21 18:08 - Imaging and Cardiology Chest x-ray: report reviewed Imaging and Cardiology: Chest x-ray The lungs appear improved when compared to the previous study from August 2020 There does appear to be some patchy airspace density in the left lung. PA and lateral chest radiograph is recommended to better evaluate the lungs. Assessment and Plan Advance Directives: Yes (Full code) VTE prophylaxis?: Chemical Plan of care discussed with patient/family: Yes - Patient Problems (1) Acute respiratory failure with hypoxia Current Visit: Yes Status: Acute Plan to address problem: Secondary to hypoventilation and asthma Patient will need to be on CPAP on regular basis Duo nebs Rule out Covid Pulmonary consult (2) Pneumonia Current Visit: Yes Status: Acute Qualifiers: Lung location: unspecified part of lung Plan to address problem: Doubtful but initiated on empiric antibiotics We will defer to primary team about discontinuing the antibiotics Check procalcitonin (3) Hypoventilation associated with obesity syndrome Current Visit: Yes Status: Acute Plan to address problem: Pulmonary consult Referral to bariatric surgery as outpatient with Dr. Hernandez Patient definitely needs gastric bypass surgery if he needs to survive longer (4) Morbid obesity Current Visit: Yes Status: Acute Plan to address problem: Referral to bariatric surgery to Dr. Umanzor (5) COVID-19 Current Visit: No Status: Acute Plan to address problem: Rule out Covid Coronavirus PCR in a.m. (6) Pulmonary hypertension Current Visit: Yes Status: Chronic Plan to address problem: Patient has leg swelling and body swelling Possible pulmonary hypertension Echocardiogram for pulmonary hypertension (7) DVT prophylaxis Current Visit: Yes Status: Acute Plan to address problem: On heparin GI prophylaxis (8) Advance care planning Current Visit: Yes Status: Acute Plan to address problem: Disease education conducted, care plan discussed, diagnosis discussed, prognosis just. Patient is full code. Patient acknowledged understanding and agreement with care plan. +30 minutes.
[2021-06-15] MEDS ORDERED: ALBUTEROL 8.5 GM MDI INHALATION IH PRN (20:50)
[2021-06-15] MEDS ORDERED: ONDANSETRON 4 MG/2 ML INJ IV PRN (20:52)
[2021-06-15] MEDS ORDERED: oxyCODONE /ACETAMINOPHEN 5-325MG TAB PO PRN (20:52)
[2021-06-15] MEDS ORDERED: ACETAMINOPHEN 325 MG TAB PO PRN (20:52)
[2021-06-15] MEDS ORDERED: IPRATROPIUM/ALBUTEROL SULFATE 3 ML AMPUL.NEB IH PRN (20:57)
[2021-06-15] MEDS ORDERED: ALBUTEROL 2.5 MG/3 ML NEBU IH PRN (21:09)
[2021-06-15] MEDS ORDERED: HEPARIN 5,000 UNIT/1 ML VIAL SUB-Q SCH (22:00)
[2021-06-15] MEDS ORDERED: NON-FORMULARY EACH (Apixaban 5 MG Tablet) PO SCH (22:00)
[2021-06-15] MEDS ORDERED: CALC GLUCONATE 1GM/NS 100 ML 2 GM/200 ML BAG IV ONE (22:00)
[2021-06-15] MEDS: APIXABAN 5 MG TAB PO SCH (22:09)
[2021-06-15] MEDS: FAMOTIDINE 20 MG TAB PO SCH (22:09)
[2021-06-15] MEDS: methylPREDNISolone Sod Succinate 125 MG/2 ML INJ IV SCH (22:09)
[2021-06-15] MEDS: ASCORBIC ACID 500 MG TAB PO SCH (22:09)
[2021-06-16] MEDS: methylPREDNISolone Sod Succinate 125 MG/2 ML INJ IV SCH ×3 (05:53→22:26)
[2021-06-16] MEDS ORDERED: predniSONE 20 MG TAB PO SCH (10:00)
[2021-06-16] MEDS: cefTRIAXone/NS 2 GM/100 ML 2 GM/100 ML BAG IV SCH (10:08)
[2021-06-16] MEDS: ASCORBIC ACID 500 MG TAB PO SCH ×2 (10:08→22:26)
[2021-06-16] MEDS: APIXABAN 5 MG TAB PO SCH ×2 (10:08→22:27)
[2021-06-16] MEDS: FAMOTIDINE 20 MG TAB PO SCH ×2 (10:08→22:26)
[2021-06-16] MEDS: ZINC SULFATE 220 MG CAP PO SCH (10:08)
[2021-06-16] MEDS: CHOLECALCIFEROL (VIT D3) 5,000 UNIT TAB PO SCH (10:09)
[2021-06-16 10:55] LABS: Basophils % (Auto) 0.2 % (0.0-1.8); Lymphocytes # (Auto) 0.9 K/mm3 (1.2-5.4); Lymphocytes % (Auto) 9.2 % (13.4-35.0); Mean Corpuscular HGB Conc 30 % (32-34); Mean Corpuscular Volume 86 fl (84-94); Monocytes # (Auto) 0.2 K/mm3 (0.0-0.8); Monocytes % (Auto) 2.1 % (0.0-7.3); Platelet Count 264 K/mm3 (140-440); Red Blood Count 5.55 M/mm3 (3.65-5.03); Red Cell Distribution Width 16.1 % (13.2-15.2)
[2021-06-16 11:09] LABS: Hematocrit 47.6 % (35.5-45.6); Hemoglobin 14.4 gm/dl (11.8-15.2)
[2021-06-16 11:19] LABS: Alanine Aminotransferase 75 units/L (7-56); Albumin 3.7 g/dL (3.9-5); BUN/Creatinine Ratio 22; Blood Urea Nitrogen 24 mg/dL (9-20); Calcium 8.8 mg/dL (8.4-10.2); Hemolysis Index 24
--- NOTE | 2021-06-16 11:43 | Electrocardiograph Report ---
[facility] Test Date: 2021-06-15 Test Time: 18:05:15 Pat Name: KAREN GRUBBS Department: Room: A356 1 Gender: M Tape Cutter: WILBERT : 1990 Requested By: ANTIONETTE ALFREDO Order Number: [id number] Reading MD: Elton Nowak Measurements Intervals [place] Rate: 103 P: 41 NE: 147 QRS: 46 QRSD: 73 T: -1 QT: 318 QTc: 416 Interpretive Statements Sinus tachycardia Compared to ECG 08/10/2020 09:40:41 No significant changes Electronically Signed On 06-16-2021 11:43:08 EST by Elton Nowak
[2021-06-16] MEDS: IPRATROPIUM/ALBUTEROL SULFATE 3 ML AMPUL.NEB IH SCH ×4 (11:45→20:25)
--- NOTE | 2021-06-16 19:04 | Progress Note ---
Assessment and Plan Assessment and plan: 30-year-old -Irish male morbid obesity with BMI 43 was admitted to this hospital in July 2020 for hypoxic respiratory failure secondary to COVID- 19. At that time echocardiogram showed ejection fraction 55%. Today who presents with shortness of breath severe leg swelling for the last 1 week more so for the last 2 to 3 days. Patient has history of obstructive sleep apnea but does not use sleep apnea no fever or chills. Feels short of breath. He is not Covid 19 vaccinated orthopnea present. No recent travel. (1) Acute likely on chronic respiratory failure with hypoxia Likely hypercapnic Current Visit: Yes Status: Acute Plan to address problem: Secondary to hypoventilation and asthma Patient will need to be on CPAP on regular basis Duo nebs Rule out Covid Pulmonary consult (2) rule out pneumonia Current Visit: Yes Status: Acute Qualifiers: Lung location: unspecified part of lung Plan to address problem: Doubtful but initiated on empiric antibiotics We will defer to primary team about discontinuing the antibiotics Check procalcitonin (3) Hypoventilation associated with obesity syndrome Current Visit: Yes Status: Acute Plan to address problem: Pulmonary consult Referral to bariatric surgery as outpatient with Dr. Hernandez Patient definitely needs gastric bypass surgery if he needs to survive longer (4) Morbid obesity Current Visit: Yes Status: Acute Plan to address problem: Referral to bariatric surgery to Dr. Umanzor (5) rule out COVID-19 Current Visit: No Status: Acute Plan to address problem: Rule out Covid Coronavirus PCR in a.m. (6) likely has pulmonary hypertension and right heart failure Current Visit: Yes Status: Chronic Plan to address problem: Patient has leg swelling and body swelling Possible pulmonary hypertension Check echocardiogram for pulmonary hypertension Lasix 40 mg IV twice daily for now (7) DVT prophylaxis Current Visit: Yes Status: Acute Plan to address problem: On heparin GI prophylaxis (8) Advance care planning Current Visit: Yes Status: Acute Plan to address problem: Disease education conducted, care plan discussed, diagnosis discussed, prognosis just. Patient is full code. Patient acknowledged understanding and agreement with care plan. +30 minutes. Discussed with the patient and the nursing staff. History Interval history: Morbid obese, alert, no acute distress lungs pain. No purulent no chest pains. Leg swollen bilaterally 3+. Hospitalist Physical - Constitutional Vitals: Temp Pulse Resp BP Pulse Ox 98.5 F 95 H 18 149/52 95 06/16/21 10:44 06/16/21 15:28 06/16/21 16:00 06/16/21 10:44 06/16/21 16:00 General appearance: Present: no acute distress, mild distress, obese (BMI 40.) - EENT Eyes: Present: PERRL, EOM intact ENT: other - Neck Neck: Present: supple (Oropharynx crowded) - Respiratory Respiratory effort: normal Respiratory: bilateral: diminished - Cardiovascular Rhythm: regular - Extremities Extremity abnormal: edema (3+ pretibial edema) - Abdominal General gastrointestinal: soft, non-tender, other (Very obese) - Integumentary Integumentary: Absent: rash - Psychiatric Psychiatric: appropriate mood/affect - Neurologic Neurologic: no focal deficits, moves all extremities HEART Score - HEART Score Risk factors: 1-2 risk factors Troponin: Troponin T < 0.010 ng/mL (0.00-0.029) 06/15/21 18:08 - Critical Actions Critical Actions: 4-6 pts:12-16.6% risk of adverse cardiac event. Should be admitted Results - Labs CBC & Chem 7: 06/16/21 09:46 06/17/21 09:08 Labs: Laboratory Last Values WBC 9.4 K/mm3 (4.5-11.0) 06/16/21 09:46 RBC 5.55 M/mm3 (3.65-5.03) H 06/16/21 09:46 Hgb 14.4 gm/dl (11.8-15.2) 06/16/21 09:46 Hct 47.6 % (35.5-45.6) H 06/16/21 09:46 MCV 86 fl (84-94) 06/16/21 09:46 MCH 26 pg (28-32) L 06/16/21 09:46 MCHC 30 % (32-34) L 06/16/21 09:46 RDW 16.1 % (13.2-15.2) H 06/16/21 09:46 Plt Count 264 K/mm3 (140-440) 06/16/21 09:46 Lymph % (Auto) 9.2 % (13.4-35.0) L 06/16/21 09:46 [place] % (Auto) 2.1 % (0.0-7.3) 06/16/21 09:46 Eos % (Auto) 0.0 % (0.0-4.3) 06/16/21 09:46 Baso % (Auto) 0.2 % (0.0-1.8) 06/16/21 09:46 Lymph # (Auto) 0.9 K/mm3 (1.2-5.4) L 06/16/21 09:46 [place] # (Auto) 0.2 K/mm3 (0.0-0.8) 06/16/21 09:46 Eos # (Auto) 0.0 K/mm3 (0.0-0.4) 06/16/21 09:46 Baso # (Auto) 0.0 K/mm3 (0.0-0.1) 06/16/21 09:46 Seg Neutrophils % 88.5 % (40.0-70.0) H 06/16/21 09:46 Seg Neutrophils # 8.3 K/mm3 (1.8-7.7) H 06/16/21 09:46 PT 15.2 Sec. (12.2-14.9) H 06/15/21 18:08 INR 1.08 (0.87-1.13) 06/15/21 18:08 APTT 26.2 Sec. (24.2-36.6) 06/15/21 18:08 Sodium 133 mmol/L (137-145) L D 06/16/21 09:46 Potassium 5.2 mmol/L (3.6-5.0) H 06/16/21 09:46 Chloride 95.4 mmol/L (98-107) L 06/16/21 09:46 Carbon Dioxide 28 mmol/L (22-30) 06/16/21 09:46 Anion Gap 15 mmol/L 06/16/21 09:46 BUN 24 mg/dL (9-20) H 06/16/21 09:46 Creatinine 1.1 mg/dL (0.8-1.3) 06/16/21 09:46 Estimated GFR > 60 ml/min 06/16/21 09:46 BUN/Creatinine Ratio 22 % 06/16/21 09:46 Glucose 225 mg/dL (75-100) H 06/16/21 09:46 Calcium 8.8 mg/dL (8.4-10.2) 06/16/21 09:46 Magnesium 2.60 mg/dL (1.7-2.3) H 06/15/21 18:08 Total Bilirubin 0.30 mg/dL (0.1-1.2) 06/16/21 09:46 AST 40 units/L (5-40) 06/16/21 09:46 ALT 75 units/L (7-56) H 06/16/21 09:46 Alkaline Phosphatase 70 units/L (35-129) 06/16/21 09:46 Total Creatine Kinase 380 units/L (55-170) H 06/15/21 18:08 Troponin T < 0.010 ng/mL (0.00-0.029) 06/15/21 18:08 NT-Pro-B Natriuret Pep 1619 pg/mL (0-450) H 06/15/21 18:08 Total Protein 6.9 g/dL (6.3-8.2) 06/16/21 09:46 Albumin 3.7 g/dL (3.9-5) L 06/16/21 09:46 Albumin/Globulin Ratio 1.2 % 06/16/21 09:46 Coronavirus (PCR) Negative (Negative) 06/16/21 09:25 Gaytan/IV: Voiding Method Urinal Active Medications - Current Medications Current Medications: Generic Name Dose Route Start Last Admin Trade Name Freq PRN Reason Stop Dose Admin Acetaminophen 650 mg 06/15/21 20:52 Acetaminophen 325 Mg Tab PO Q4H PRN Pain MILD(1-3)/Fever >100.5/MARTINEZ Albuterol 2.5 mg 06/15/21 21:09 Albuterol 2.5 Mg/3 Ml Nebu IH Q4HRT PRN Shortness Of Breath Albuterol/Ipratropium 1 ampul 06/16/21 08:00 06/16/21 15:25 Ipratropium/Albuterol Sulfate 3 Ml Ampul.Neb IH 1 ampul QIDRT MELANIE Administration Apixaban 5 mg 06/15/21 22:00 06/16/21 10:08 Apixaban 5 Mg Tab PO 5 mg Q12HR MELANIE Administration Ascorbic Acid 500 mg 06/15/21 22:00 06/16/21 10:08 Ascorbic Acid 500 Mg Tab PO 500 mg BID MELANIE Administration Cholecalciferol 5,000 unit 06/16/21 10:00 06/16/21 10:09 Cholecalciferol (Vit D3) 5,000 Unit Tab PO 5,000 unit DAILY MELANIE Administration Famotidine 20 mg 06/15/21 22:00 06/16/21 10:08 Famotidine 20 Mg Tab PO 20 mg BID MELANIE Administration Azithromycin 500 mg in 250 mls @ 250 mls/hr 06/16/21 20:00 Zithromax/Ns IV Q24H MELANIE Ceftriaxone Sodium 2 gm in 100 mls @ 200 mls/hr 06/16/21 08:00 06/16/21 10:08 Rocephin/Ns 2 Gm/100 Ml IV 200 mls/hr Q24H MELANIE Administration Protocol Methylprednisolone Sodium Succinate 60 mg 06/15/21 22:00 06/16/21 14:40 Methylprednisolone Sod Succinate 125 Mg/2 Ml Inj IV 60 mg Q8H MELANIE Administration Ondansetron HCl 4 mg 06/15/21 20:52 Ondansetron 4 Mg/2 Ml Inj IV Q8H PRN Nausea And Vomiting Oxycodone/Acetaminophen 1 tab 06/15/21 20:52 Oxycodone /Acetaminophen 5-325mg Tab PO Q6H PRN Pain, Moderate (4-6) Sodium Chloride 10 ml 06/15/21 22:00 06/16/21 10:09 Sodium Chloride 0.9% 10 Ml Flush Syringe IV 10 ml BID MELANIE Administration Sodium Chloride 10 ml 06/15/21 20:52 Sodium Chloride 0.9% 10 Ml Flush Syringe IV PRN PRN LINE FLUSH Zinc Sulfate 220 mg 06/16/21 10:00 06/16/21 10:08 Zinc Sulfate 220 Mg Cap PO 220 mg QDAY MELANIE Administration
[2021-06-16] MEDS ORDERED: AZITHROMYCIN/NS 500 MG/250 ML 500 MG/250 ML BAG IV SCH (20:00)
[2021-06-16] MEDS ORDERED: SODIUM CHLORIDE 0.9% 50 ML ONE (22:01)
--- NOTE | 2021-06-16 22:40 | Consultation ---
History of Present Illness Consult date: 06/16/21 Requesting physician: JUANITA BOWENS History of present illness: 30 y/o male, well known to me from his COVID hospital stay admitted with worsening dyspnea on exertion. Pulm consult placed for acute respiratory failure but patient has chronic respiratory failure. He was discharged from this hospital on oxygen in 2020 after a prolonged stay secondary to covid. His sat is stable on supplemental O2. He continues to be obese. Past History Past Medical History: other (COVID Pneumoni and respiratory failure in 2020, obesity, VTE) Past Surgical History: No surgical history Social history: no significant social history Medications and Allergies Allergies Allergy/AdvReac Type Severity Reaction Status Date / Time No Known Allergies Allergy Verified 08/10/20 08:11 Home Medications Medication Instructions Recorded Confirmed Last Taken Type Albuterol Mdi (or & Nicu Only) 2 puff IH QID PRN #8.5 gram 09/18/20 Unknown Rx [ProAir HFA Inhaler] Apixaban [Eliquis] 5 mg PO Q12HR #60 tablet 09/18/20 1 Day Ago Rx ~06/15/21 Ascorbic Acid [Vitamin C] 500 mg PO BID #10 tablet 09/18/20 06/15/21 Rx Cholecalciferol (Vitamin D3) 5,000 unit PO DAILY #5 tablet 09/18/20 06/15/21 Rx [Vitamin D3] Famotidine [Pepcid] 20 mg PO BID #10 tablet 09/18/20 Unknown Rx Zinc Sulfate 220 mg PO QDAY #5 capsule 09/18/20 Unknown Rx predniSONE [Deltasone] 20 mg PO QDAY #5 tab 09/18/20 Unknown Rx Active Meds: Active Medications Acetaminophen (Acetaminophen 325 Mg Tab) 650 mg PO Q4H PRN PRN Reason: Pain MILD(1-3)/Fever >100.5/MARTINEZ Albuterol (Albuterol 2.5 Mg/3 Ml Nebu) 2.5 mg IH Q4HRT PRN PRN Reason: Shortness Of Breath Albuterol/Ipratropium (Ipratropium/Albuterol Sulfate 3 Ml Ampul.Neb) 1 ampul IH QIDRT [facility] Last Admin: 06/16/21 20:25 Dose: 1 ampul Apixaban (Apixaban 5 Mg Tab) 5 mg PO Q12HR [facility] Last Admin: 06/16/21 22:27 Dose: 5 mg Ascorbic Acid (Ascorbic Acid 500 Mg Tab) 500 mg PO BID [facility] Last Admin: 06/16/21 22:26 Dose: 500 mg Cholecalciferol (Cholecalciferol (Vit D3) 5,000 Unit Tab) 5,000 unit PO DAILY [facility] Last Admin: 06/16/21 10:09 Dose: 5,000 unit Famotidine (Famotidine 20 Mg Tab) 20 mg PO BID [facility] Last Admin: 06/16/21 22:26 Dose: 20 mg Azithromycin (Zithromax/Ns) 500 mg in 250 mls @ 250 mls/hr IV Q24H [facility] Last Admin: 06/16/21 22:26 Dose: 250 mls/hr Ceftriaxone Sodium (Rocephin/Ns 2 Gm/100 Ml) 2 gm in 100 mls @ 200 mls/hr IV Q24H [facility]; Protocol Last Admin: 06/16/21 10:08 Dose: 200 mls/hr Methylprednisolone Sodium Succinate (Methylprednisolone Sod Succinate 125 Mg/2 M l Inj) 60 mg IV Q8H [facility] Last Admin: 06/16/21 22:26 Dose: 60 mg Ondansetron HCl (Ondansetron 4 Mg/2 Ml Inj) 4 mg IV Q8H PRN PRN Reason: Nausea And Vomiting Oxycodone/Acetaminophen (Oxycodone /Acetaminophen 5-325mg Tab) 1 tab PO Q6H PRN PRN Reason: Pain, Moderate (4-6) Sodium Chloride (Sodium Chloride 0.9% 10 Ml Flush Syringe) 10 ml IV BID [facility] Last Admin: 06/16/21 22:27 Dose: Not Given Sodium Chloride (Sodium Chloride 0.9% 10 Ml Flush Syringe) 10 ml IV PRN PRN PRN Reason: LINE FLUSH Zinc Sulfate (Zinc Sulfate 220 Mg Cap) 220 mg PO QDAY [facility] Last Admin: 06/16/21 10:08 Dose: 220 mg Physical Examination Vital signs: Vital Signs Temp Pulse Resp BP Pulse Ox 98.9 F 106 H 20 131/88 78 L 06/15/21 17:49 06/15/21 17:49 06/15/21 17:49 06/15/21 17:49 06/15/21 17:49 General appearance: no acute distress, alert, other (morbidly obese) Eyes: non-icteric ENT: oropharynx moist Neck: supple, other (large in circumference) Effort: normal Ascultation: Bilateral: diminished breath sounds Results - Laboratory Findings CBC and BMP: 06/16/21 09:46 06/16/21 09:46 PT/INR, D-dimer PT 15.2 Sec. (12.2-14.9) H 06/15/21 18:08 INR 1.08 (0.87-1.13) 06/15/21 18:08 Abnormal lab findings: Abnormal Labs 06/15/21 06/15/21 06/15/21 18:08 18:08 18:08 RBC 5.48 H Hct 47.3 H MCH 26 L MCHC 30 L RDW 15.8 H Lymph % (Auto) [place] % (Auto) 12.8 H Lymph # (Auto) [place] # (Auto) 1.2 H Seg Neutrophils % Seg Neutrophils # PT 15.2 H Sodium Potassium 5.4 H Chloride BUN 24 H Glucose 119 H Magnesium 2.60 H AST 54 H ALT 80 H Total Creatine Kinase NT-Pro-B Natriuret Pep Albumin 3.5 L 06/15/21 06/16/21 06/16/21 18:08 09:46 09:46 RBC 5.55 H Hct 47.6 H MCH 26 L MCHC 30 L RDW 16.1 H Lymph % (Auto) 9.2 L [place] % (Auto) Lymph # (Auto) 0.9 L [place] # (Auto) Seg Neutrophils % 88.5 H Seg Neutrophils # 8.3 H PT Sodium 133 L D Potassium 5.2 H Chloride 95.4 L BUN 24 H Glucose 225 H Magnesium AST ALT 75 H Total Creatine Kinase 380 H NT-Pro-B Natriuret Pep 1619 H Albumin 3.7 L - Diagnostic Findings Chest x-ray: image reviewed (cardiomegaly with pulmonary vascular congestion) Assessment and Plan 30 y/o morbidly obese male with chronic respiratory failure stemming from COVID pneumonia in 2020 with elevated BNP, pulmonary vascular congestion on CXR and elevated potassium. 1. Patient is suppose to be on oxygen therapy at home. He was discharged on 3 liters O2 based on discharge summary from September. This is not acute respiratory failure. 2. Unable to see echo report, but if diastolic dysfunction or pulmonary HTN present, suggest diuresis. 3. Patient never followed up with our office, so unknown degree of obstruction if any 4. Will sign off, call if questions. As stated above, patient is not in acute respiratory failure.
[2021-06-17] MEDS: methylPREDNISolone Sod Succinate 125 MG/2 ML INJ IV SCH (06:32)
[2021-06-17] MEDS: FAMOTIDINE 20 MG TAB PO SCH ×2 (09:17→21:22)
[2021-06-17] MEDS: cefTRIAXone/NS 2 GM/100 ML 2 GM/100 ML BAG IV SCH (09:17)
[2021-06-17] MEDS: APIXABAN 5 MG TAB PO SCH ×2 (09:17→21:22)
[2021-06-17] MEDS: ASCORBIC ACID 500 MG TAB PO SCH (09:17)
[2021-06-17] MEDS: ZINC SULFATE 220 MG CAP PO SCH (09:17)
[2021-06-17] MEDS: CHOLECALCIFEROL (VIT D3) 5,000 UNIT TAB PO SCH (09:17)
[2021-06-17 09:57] LABS: BUN/Creatinine Ratio 21; Blood Urea Nitrogen 19 mg/dL (9-20); Calcium 8.9 mg/dL (8.4-10.2); Hemolysis Index 2
[2021-06-17] MEDS: IPRATROPIUM/ALBUTEROL SULFATE 3 ML AMPUL.NEB IH SCH ×4 (11:24→20:44)
--- NOTE | 2021-06-17 17:00 | Progress Note ---
Assessment and Plan Assessment and plan: 30-year-old -[place] male morbid obesity with BMI 43 was admitted to this hospital in July 2020 for hypoxic respiratory failure secondary to COVID- 19. At that time echocardiogram showed ejection fraction 55%. Today he presents with shortness of breath severe leg swelling for the last 1 week more so for the last 2 to 3 days. Patient has history of obstructive sleep apnea but does not use sleep apnea no fever or chills. He is not Covid 19 vaccinated, orthopnea present. No recent travel. (1) Acute on chronic respiratory failure with hypoxia and likely hypercapnia Current Visit: Yes Status: Acute Plan to address problem: Secondary to obesity hypoventilation, DAVID off CPAP and asthma Is very somnolent during the day with snoring, ordered as needed BiPAP during the day and nightly. Patient will need to be on CPAP on regular basis Duo nebs PCR negative for Covid 19. Procalcitonin ordered Pulmonary consult (2) right heart failure with pulmonary hypertension and volume overload Current Visit: Yes Status: Acute Qualifiers: Lung location: unspecified part of lung Plan to address problem: Likely from morbid obesity and DAVID off CPAP cannot afford to get CPAP anymore. Continue Lasix 40mg IV twice daily Pulmonary consulted. Monitor electrolytes and renal function (3) Hypoventilation associated with obesity syndrome, BMI 43 Current Visit: Yes Status: Acute Plan to address problem: Pulmonary consult Referral to bariatric surgery as outpatient with Dr. Hernandez Patient definitely needs gastric bypass surgery if he needs to survive longer (4) hyperkalemia, persistent Current Visit: Yes Status: Acute Plan to address problem: Etiology unclear Anticipating improvement with Lasix Monitor closely (5) tested negative for COVID-19 Current Visit: No Status: Acute Plan to address problem: Rule out Covid by PCR test (7) DVT prophylaxis Current Visit: Yes Status: Acute Plan to address problem: On heparin GI prophylaxis (8) Advance care planning Current Visit: Yes Status: Acute Plan to address problem: Disease education conducted, care plan discussed, diagnosis discussed, prognosis just. Patient is full code. Patient acknowledged understanding and agreement with care plan. +30 minutes. History Interval history: Patient is very somnolent at noon and ordered ABG and a BiPAP. Echocardiogram shows right heart failure and pulmonary hypertension. Legs are still swollen. PCR test negative for COVID-19. Hospitalist Physical - Constitutional Vitals: Temp Pulse Resp BP Pulse Ox 98.5 F 96 H 20 149/52 58 L 06/16/21 10:44 06/17/21 15:13 06/17/21 15:13 06/16/21 10:44 06/17/21 10:19 General appearance: Present: no acute distress, obese (Extremely obese, BMI 43), other (Very somnolent, hard to arouse.) - EENT Eyes: Present: PERRL ENT: other (Oropharynx crowded. Mouth breathing. Snoring.) - Neck Neck: Present: supple - Respiratory Respiratory: bilateral: diminished - Cardiovascular Rhythm: regular - Extremities Extremity abnormal: edema (3+ pretibial edema) - Abdominal General gastrointestinal: soft, non-tender, other (Obese) - Integumentary Integumentary: Absent: rash - Psychiatric Psychiatric: appropriate mood/affect - Neurologic Neurologic: no focal deficits, moves all extremities HEART Score - HEART Score Risk factors: 1-2 risk factors Troponin: Troponin T < 0.010 ng/mL (0.00-0.029) 06/15/21 18:08 - Critical Actions Critical Actions: 4-6 pts:12-16.6% risk of adverse cardiac event. Should be admitted Results - Labs CBC & Chem 7: 06/16/21 09:46 06/17/21 09:08 Labs: Laboratory Last Values WBC 9.4 K/mm3 (4.5-11.0) 06/16/21 09:46 RBC 5.55 M/mm3 (3.65-5.03) H 06/16/21 09:46 Hgb 14.4 gm/dl (11.8-15.2) 06/16/21 09:46 Hct 47.6 % (35.5-45.6) H 06/16/21 09:46 MCV 86 fl (84-94) 06/16/21 09:46 MCH 26 pg (28-32) L 06/16/21 09:46 MCHC 30 % (32-34) L 06/16/21 09:46 RDW 16.1 % (13.2-15.2) H 06/16/21 09:46 Plt Count 264 K/mm3 (140-440) 06/16/21 09:46 Lymph % (Auto) 9.2 % (13.4-35.0) L 06/16/21 09:46 [place] % (Auto) 2.1 % (0.0-7.3) 06/16/21 09:46 Eos % (Auto) 0.0 % (0.0-4.3) 06/16/21 09:46 Baso % (Auto) 0.2 % (0.0-1.8) 06/16/21 09:46 Lymph # (Auto) 0.9 K/mm3 (1.2-5.4) L 06/16/21 09:46 [place] # (Auto) 0.2 K/mm3 (0.0-0.8) 06/16/21 09:46 Eos # (Auto) 0.0 K/mm3 (0.0-0.4) 06/16/21 09:46 Baso # (Auto) 0.0 K/mm3 (0.0-0.1) 06/16/21 09:46 Seg Neutrophils % 88.5 % (40.0-70.0) H 06/16/21 09:46 Seg Neutrophils # 8.3 K/mm3 (1.8-7.7) H 06/16/21 09:46 PT 15.2 Sec. (12.2-14.9) H 06/15/21 18:08 INR 1.08 (0.87-1.13) 06/15/21 18:08 APTT 26.2 Sec. (24.2-36.6) 06/15/21 18:08 Sodium 140 mmol/L (137-145) D 06/17/21 09:08 Potassium 5.5 mmol/L (3.6-5.0) H 06/17/21 09:08 Chloride 100.7 mmol/L (98-107) 06/17/21 09:08 Carbon Dioxide 29 mmol/L (22-30) 06/17/21 09:08 Anion Gap 16 mmol/L 06/17/21 09:08 BUN 19 mg/dL (9-20) 06/17/21 09:08 Creatinine 0.9 mg/dL (0.8-1.3) 06/17/21 09:08 Estimated GFR > 60 ml/min 06/17/21 09:08 BUN/Creatinine Ratio 21 % 06/17/21 09:08 Glucose 192 mg/dL (75-100) H 06/17/21 09:08 Calcium 8.9 mg/dL (8.4-10.2) 06/17/21 09:08 Magnesium 2.40 mg/dL (1.7-2.3) H 06/17/21 09:08 Total Bilirubin 0.30 mg/dL (0.1-1.2) 06/16/21 09:46 AST 40 units/L (5-40) 06/16/21 09:46 ALT 75 units/L (7-56) H 06/16/21 09:46 Alkaline Phosphatase 70 units/L (35-129) 06/16/21 09:46 Total Creatine Kinase 380 units/L (55-170) H 06/15/21 18:08 Troponin T < 0.010 ng/mL (0.00-0.029) 06/15/21 18:08 NT-Pro-B Natriuret Pep 1619 pg/mL (0-450) H 06/15/21 18:08 Total Protein 6.9 g/dL (6.3-8.2) 06/16/21 09:46 Albumin 3.7 g/dL (3.9-5) L 06/16/21 09:46 Albumin/Globulin Ratio 1.2 % 06/16/21 09:46 Coronavirus (PCR) Negative (Negative) 06/16/21 09:25 Gaytan/IV: Voiding Method Urinal Active Medications - Current Medications Current Medications: Generic Name Dose Route Start Last Admin Trade Name Freq PRN Reason Stop Dose Admin Acetaminophen 650 mg 06/15/21 20:52 Acetaminophen 325 Mg Tab PO Q4H PRN Pain MILD(1-3)/Fever >100.5/MARTINEZ Albuterol 2.5 mg 06/15/21 21:09 Albuterol 2.5 Mg/3 Ml Nebu IH Q4HRT PRN Shortness Of Breath Albuterol/Ipratropium 1 ampul 06/16/21 08:00 06/17/21 15:13 Ipratropium/Albuterol Sulfate 3 Ml Ampul.Neb IH 1 ampul QIDRT MELANIE Administration Apixaban 5 mg 06/15/21 22:00 06/17/21 09:17 Apixaban 5 Mg Tab PO 5 mg Q12HR MELANIE Administration Famotidine 20 mg 06/15/21 22:00 06/17/21 09:17 Famotidine 20 Mg Tab PO 20 mg BID MELANIE Administration Furosemide 40 mg 06/17/21 18:00 Furosemide 40 Mg/4 Ml Inj IV 0600,1800 MELANIE Ondansetron HCl 4 mg 06/15/21 20:52 Ondansetron 4 Mg/2 Ml Inj IV Q8H PRN Nausea And Vomiting Sodium Chloride 10 ml 06/15/21 22:00 06/17/21 09:18 Sodium Chloride 0.9% 10 Ml Flush Syringe IV 10 ml BID MEALNIE Administration Sodium Chloride 10 ml 06/15/21 20:52 Sodium Chloride 0.9% 10 Ml Flush Syringe IV PRN PRN LINE FLUSH
[2021-06-17] MEDS: FUROSEMIDE 40 MG/4 ML INJ IV SCH (17:45)
[2021-06-17] MEDS ORDERED: SODIUM CHLORIDE 0.9% 50 ML ONE (20:37)
[2021-06-18] MEDS: IPRATROPIUM/ALBUTEROL SULFATE 3 ML AMPUL.NEB IH SCH ×4 (07:41→20:47)
[2021-06-18 08:03] LABS: BUN/Creatinine Ratio 23; Blood Urea Nitrogen 21 mg/dL (9-20); Calcium 8.6 mg/dL (8.4-10.2); Hemolysis Index 4
[2021-06-18] MEDS: FAMOTIDINE 20 MG TAB PO SCH ×2 (09:57→21:44)
[2021-06-18] MEDS: FUROSEMIDE 40 MG/4 ML INJ IV SCH ×2 (09:57→17:41)
[2021-06-18] MEDS: APIXABAN 5 MG TAB PO SCH ×2 (09:57→21:44)
--- NOTE | 2021-06-18 10:51 | Vascular Lab Report ---
DUPLEX DOPPLER LOWER EXTREMITY VEINS, BILATERAL INDICATION / CLINICAL INFORMATION: b/l lower ext swelling. TECHNIQUE: Duplex doppler imaging was performed through the veins of both lower extremities using venous saurabh dorinda and other maneuvers. COMPARISON: None available. FINDINGS: RIGHT COMMON FEMORAL VEIN: Negative. RIGHT FEMORAL VEIN: Negative. RIGHT POPLITEAL VEIN: Negative. RIGHT CALF VEINS: Negative. LEFT COMMON FEMORAL VEIN: Negative. LEFT FEMORAL VEIN: Negative. LEFT POPLITEAL VEIN: Negative. LEFT CALF VEINS: Negative. ADDITIONAL FINDINGS: None. IMPRESSION: 1. No sonographic evidence for DVT in either lower extremity. Signer Name: Rafael Ferraro MD Signed: 06/18/2021 10:47 AM Workstation Name: [email or web address] [id number]
[2021-06-18 14:49] LABS: ABG Base Excess 8.2 mmol/L (-2.0-3.0); ABG HCO3 38.1 mmol/L (20.0-26.0); ABG Methemoglobin 0.7 % (0.0-1.5); ABG Oxygen Saturation 71.2 % (95.0-99.0); ABG PH 7.295 pH Units (7.350-7.450); ABG PO2 40.6 mm Hg (80.0-90.0)
--- NOTE | 2021-06-18 15:27 | Progress Note ---
Assessment and Plan - Patient Problems (1) Acute respiratory failure with hypoxia Current Visit: Yes Status: Acute Plan to address problem: Supplemental oxygen, pulse oximetry, nebulizer therapy, pulmonary toilet. Incentive spirometry. (2) Obesity hypoventilation syndrome Current Visit: Yes Status: Acute Plan to address problem: Balanced diet, increase physical activity at discharge, outpatient bariatric surgery consult. (3) Morbid obesity with BMI of 40.0-44.9, adult Current Visit: Yes Status: Acute Plan to address problem: Balanced diet, increase physical activity discharge, low calorie diet as tolerated. (4) CO2 narcosis Current Visit: Yes Status: Acute Plan to address problem: Noninvasive positive pressure ventilation, arterial blood gas, supportive care. (5) Pulmonary hypertension Current Visit: Yes Status: Acute Plan to address problem: Pulmonary toilet, supportive care, continue medical management. Outpatient pulmonary follow-up for sleep study. (6) DVT prophylaxis Current Visit: Yes Status: Acute Plan to address problem: SCD to bilateral lower extremities while in bed History Interval history: 30 YO Male HD #3 with MO, Obesity Hypoventilation Syndrome, Pulmonary Hypertension (PASP 56). Patient found to have increased work of breathing today. ABG obtained and patient found to have CO2 narcosis. Patient restarted on BiPAP. Patient denies pain. Hospitalist Physical - Constitutional Vitals: Temp Pulse Resp BP Pulse Ox 98.9 F 107 H 20 125/55 92 06/18/21 11:19 06/18/21 13:31 06/18/21 13:31 06/18/21 11:19 06/18/21 11:19 General appearance: Present: no acute distress, mild distress, obese (BMI 40.) - EENT Eyes: Present: PERRL ENT: hearing intact - Neck Neck: Present: supple - Respiratory Respiratory effort: labored Respiratory: bilateral: diminished, rhonchi - Cardiovascular Rhythm: regular Heart Sounds: Present: S1 & S2 Peripheral Pulses: within normal limits - Abdominal General gastrointestinal: soft, non-tender, non-distended - Integumentary Integumentary: Present: clear, dry - Psychiatric Psychiatric: cooperative - Neurologic Neurologic: CNII-XII intact HEART Score - HEART Score Risk factors: 1-2 risk factors Troponin: Troponin T < 0.010 ng/mL (0.00-0.029) 06/15/21 18:08 - Critical Actions Critical Actions: 4-6 pts:12-16.6% risk of adverse cardiac event. Should be admitted Results - Labs CBC & Chem 7: 06/16/21 09:46 06/18/21 07:03 Labs: Laboratory Last Values WBC 9.4 K/mm3 (4.5-11.0) 06/16/21 09:46 RBC 5.55 M/mm3 (3.65-5.03) H 06/16/21 09:46 Hgb 14.4 gm/dl (11.8-15.2) 06/16/21 09:46 Hct 47.6 % (35.5-45.6) H 06/16/21 09:46 MCV 86 fl (84-94) 06/16/21 09:46 MCH 26 pg (28-32) L 06/16/21 09:46 MCHC 30 % (32-34) L 06/16/21 09:46 RDW 16.1 % (13.2-15.2) H 06/16/21 09:46 Plt Count 264 K/mm3 (140-440) 06/16/21 09:46 Lymph % (Auto) 9.2 % (13.4-35.0) L 06/16/21 09:46 [place] % (Auto) 2.1 % (0.0-7.3) 06/16/21 09:46 Eos % (Auto) 0.0 % (0.0-4.3) 06/16/21 09:46 Baso % (Auto) 0.2 % (0.0-1.8) 06/16/21 09:46 Lymph # (Auto) 0.9 K/mm3 (1.2-5.4) L 06/16/21 09:46 [place] # (Auto) 0.2 K/mm3 (0.0-0.8) 06/16/21 09:46 Eos # (Auto) 0.0 K/mm3 (0.0-0.4) 06/16/21 09:46 Baso # (Auto) 0.0 K/mm3 (0.0-0.1) 06/16/21 09:46 Seg Neutrophils % 88.5 % (40.0-70.0) H 06/16/21 09:46 Seg Neutrophils # 8.3 K/mm3 (1.8-7.7) H 06/16/21 09:46 PT 15.2 Sec. (12.2-14.9) H 06/15/21 18:08 INR 1.08 (0.87-1.13) 06/15/21 18:08 APTT 26.2 Sec. (24.2-36.6) 06/15/21 18:08 ABG pH 7.295 pH Units (7.350-7.450) L 06/18/21 13:50 ABG pCO2 80.0 mm Hg 06/18/21 13:50 ABG pO2 40.6 mm Hg (80.0-90.0) L 06/18/21 13:50 ABG HCO3 38.1 mmol/L (20.0-26.0) H 06/18/21 13:50 ABG O2 Saturation 71.2 % (95.0-99.0) L 06/18/21 13:50 ABG O2 Content 14.0 (0.0-44) 06/18/21 13:50 ABG Base Excess 8.2 mmol/L (-2.0-3.0) H 06/18/21 13:50 ABG Hemoglobin 14.5 gm/dl (14.0-18.0) 06/18/21 13:50 ABG Carboxyhemoglobin 2.5 % (0.0-5.0) 06/18/21 13:50 ABG Methemoglobin 0.7 % (0.0-1.5) 06/18/21 13:50 Oxyhemoglobin 69.0 % (95.0-99.0) L 06/18/21 13:50 FiO2 21 % 06/18/21 13:50 Sodium 145 mmol/L (137-145) 06/18/21 07:03 Potassium 4.5 mmol/L (3.6-5.0) 06/18/21 07:03 Chloride 101.7 mmol/L (98-107) 06/18/21 07:03 Carbon Dioxide 33 mmol/L (22-30) H 06/18/21 07:03 Anion Gap 15 mmol/L 06/18/21 07:03 BUN 21 mg/dL (9-20) H 06/18/21 07:03 Creatinine 0.9 mg/dL (0.8-1.3) 06/18/21 07:03 Estimated GFR > 60 ml/min 06/18/21 07:03 BUN/Creatinine Ratio 23 % 06/18/21 07:03 Glucose 128 mg/dL (75-100) H 06/18/21 07:03 Calcium 8.6 mg/dL (8.4-10.2) 06/18/21 07:03 Magnesium 2.20 mg/dL (1.7-2.3) 06/18/21 07:03 Total Bilirubin 0.30 mg/dL (0.1-1.2) 06/16/21 09:46 AST 40 units/L (5-40) 06/16/21 09:46 ALT 75 units/L (7-56) H 06/16/21 09:46 Alkaline Phosphatase 70 units/L (35-129) 06/16/21 09:46 Total Creatine Kinase 380 units/L (55-170) H 06/15/21 18:08 Troponin T < 0.010 ng/mL (0.00-0.029) 06/15/21 18:08 NT-Pro-B Natriuret Pep 1619 pg/mL (0-450) H 06/15/21 18:08 Total Protein 6.9 g/dL (6.3-8.2) 06/16/21 09:46 Albumin 3.7 g/dL (3.9-5) L 06/16/21 09:46 Albumin/Globulin Ratio 1.2 % 06/16/21 09:46 Coronavirus (PCR) Negative (Negative) 06/16/21 09:25 Gaytan/IV: Voiding Method Urinal Active Medications - Current Medications Current Medications: Generic Name Dose Route Start Last Admin Trade Name Freq PRN Reason Stop Dose Admin Acetaminophen 650 mg 06/15/21 20:52 Acetaminophen 325 Mg Tab PO Q4H PRN Pain MILD(1-3)/Fever >100.5/MARTINEZ Albuterol 2.5 mg 06/15/21 21:09 Albuterol 2.5 Mg/3 Ml Nebu IH Q4HRT PRN Shortness Of Breath Albuterol/Ipratropium 1 ampul 06/16/21 08:00 06/18/21 13:31 Ipratropium/Albuterol Sulfate 3 Ml Ampul.Neb IH 1 ampul QIDRT MELANIE Administration Apixaban 5 mg 06/15/21 22:00 06/18/21 09:57 Apixaban 5 Mg Tab PO 5 mg Q12HR MELANIE Administration Famotidine 20 mg 06/15/21 22:00 06/18/21 09:57 Famotidine 20 Mg Tab PO 20 mg BID MELANIE Administration Furosemide 40 mg 06/17/21 18:00 06/18/21 09:57 Furosemide 40 Mg/4 Ml Inj IV Not Given 0600,1800 [facility] Ondansetron HCl 4 mg 06/15/21 20:52 Ondansetron 4 Mg/2 Ml Inj IV Q8H PRN Nausea And Vomiting Sodium Chloride 10 ml 06/15/21 22:00 06/18/21 09:57 Sodium Chloride 0.9% 10 Ml Flush Syringe IV Not Given BID [facility] Sodium Chloride 10 ml 06/15/21 20:52 Sodium Chloride 0.9% 10 Ml Flush Syringe IV PRN PRN LINE FLUSH
[2021-06-18 22:56] VITALS: BP 136/84
[2021-06-19] MEDS: FUROSEMIDE 40 MG/4 ML INJ IV SCH (05:31)
[2021-06-19 06:36] LABS: BUN/Creatinine Ratio 23; Blood Urea Nitrogen 21 mg/dL (9-20); Calcium 8.8 mg/dL (8.4-10.2); Hemolysis Index 8
[2021-06-19] MEDS: IPRATROPIUM/ALBUTEROL SULFATE 3 ML AMPUL.NEB IH SCH (08:04)
[2021-06-19] MEDS: FAMOTIDINE 20 MG TAB PO SCH (11:15)
[2021-06-19] MEDS: APIXABAN 5 MG TAB PO SCH (11:15)
--- NOTE | 2021-06-19 21:01 | Discharge Summary ---
Providers - Providers Date of Admission: 06/15/21 20:52 Attending physician: GERALD MAS Primary care physician: SONDRA MIGUEL MD Hospitalization Condition: Good Disposition: 30 STILL A PATIENT - Discharge Diagnoses (1) Acute respiratory failure with hypoxia Status: Acute (2) Obesity hypoventilation syndrome Status: Acute (3) Morbid obesity with BMI of 40.0-44.9, adult Status: Acute (4) CO2 narcosis Status: Acute (5) Pulmonary hypertension Status: Acute (6) DVT prophylaxis Status: Acute Exam - Constitutional Vitals: Temp Pulse Resp BP Pulse Ox 98.8 F 100 H 18 136/84 94 06/18/21 22:54 06/19/21 08:04 06/19/21 08:04 06/18/21 22:54 06/19/21 08:04 Plan Follow up with: SONDRA STUBBS MD [Primary Care Provider] - 7 Days
== END 2021-06-19 20:30 | disposition home or self-care (01) | DRG 189 ==
LOC: ED 17:42 → 3A 20:52
PROVIDERS: ADMIT Internal Medicine; ATTEND Internal Medicine
PROC: 4A033R1 Measurement of Arterial Saturation, Peripheral, Percutaneous Approach (ICD-10-PCS; principal; 2021-06-15)
PROC: 5A09457 Assistance with Respiratory Ventilation, 24-96 Consecutive Hours, Continuous Positive Airway Pressure (ICD-10-PCS; 2021-06-17)
DX: J96.21 Acute and chronic respiratory failure with hypoxia (principal); J18.9 Pneumonia, unspecified organism; E66.2 Morbid (severe) obesity with alveolar hypoventilation; Z68.41 Body mass index [BMI] 40.0-44.9, adult; I27.20 Pulmonary hypertension, unspecified; Z20.822 Contact with and (suspected) exposure to COVID-19; E87.5 Hyperkalemia
CPT/HCPCS: 36415; 36600; 71045; 80048; 80053; 82550; 82803; 83735; 83880; 84484; 85025; 85610; 85730; 93005; 93010; 93306; 93970; 94640; 94660; 94760; G0378; C8929; J0456; J0610; J0696; J1100; J1940; J2930; U0003